=== PATIENT | male | born 1995 | race Caucasian/White ===

== ENCOUNTER 2020-09-08 13:40 | Inpatient (IN) | payer OTHER, MEDICAID, SELFPAY ==
--- NOTE | 2020-09-08 13:50 | PC.NURSE ---
pt arrived to unit w/ ems, alert, cooperative w/ changeover at this time.
[2020-09-08 14:05] VITALS: BP 133/87; PULSE 85; RESP 20; TEMP 36.5; BMI 31.7
--- NOTE | 2020-09-08 14:30 | ED.PSYCH ---
HPI - Psych General Chief Complaint: Psychiatric Symptoms Stated Complaint: CRISIS EVAL,CCOPERATIVE Time Seen by Provider: 09/08/20 13:55 Source: patient and EMS Mode of arrival: wheelchair Limitations: no limitations History of Present Illness HPI Narrative: 25yoM c PMHx of PTSD and schizophrenia presenting to the ED via EMS with reports of substance usage with alcohol prior to arrival. Apparently he endorse SI yesterday at [facility] therefore they wanted him to be further evaluated. At this time patient denies any SI/HI/auditory or visual hallucinations or thoughts of self injury. Admits to drinking ?old beer although is very vague. Denies any drug usage. Denies any other complaints or concerns at this time. Related Data Allergies Allergy/AdvReac Type Severity Reaction Status Date / Time Penicillins [PCN] Allergy Unknown UNKNOWN Unverified 08/02/20 16:43 Review of Systems Review of Systems: Constitutional : No Fever, No Chills ENT/Mouth : No Ear Pain, No Nasal Congestion, No sore throat Eyes: No Eye Pain, No Swelling, No Redness Cardiovascular : No Chest Pain, No SOB Respiratory : No Cough, No Sputum, No Dyspnea Gastrointestinal : No ingestions, No Nausea, No Vomiting, No Diarrhea, No Hematochezia, No Melena Genitourinary : No Dysuria, No Urinary Frequency, No Hematuria Musculoskeletal : No Myalgias Skin : No Skin Lesions, No rash Neuro : No Weakness, No Numbness, No Paresthesias, No Dizziness, No Headache Psych : No Anxiety, No Depression, No SI/HI, No AVH, No thoughts of self injury Heme/Lymph: No Lymphadenopathy Endocrine : No Polyuria, No Polydipsia Yes all other systems are reviewed and are negative [facility] Past Medical History Attestation statement: The following information was validated with the patient. Medical History PTSD (post-traumatic stress disorder) Schizophrenia Social History Social History Alcohol intake: current Smoking Status: Current every day smoker Use of substances other than those prescribed or required for medical reasons: No Substance Use Frequency: Chronic Longstanding Last Used Substance: Just Prior to Admission Any prior treatment program specific to substance use: Yes Advance Directives: No Advance Directives Information Provided: No Physical Exam Vital Signs: Vital Signs: Vital Signs Temp Pulse Resp BP Pulse Ox 09/08/20 16:06 59 20 100/70 100 09/08/20 14:05 97.7 F 85 20 133/87 Body Mass Index 31.7 vital signs have been reviewed as normal and appeared to be correct. Blood pressure normal. Heart rate normal. Respiration rate normal. Temperature normal. Oxygen saturation normal. Appearance: Alert. Oriented X3. No acute distress. Head: Normal external exam. Normocephalic. Atraumatic. No Herrera signs noted. No raccoon eyes noted Eyes: PERRLA. EOMI. Conjunctiva and sclera normal. Eyelids normal. ENT: EAC normal. TM's Normal. Pharynx normal. Uvula midline. Moist mucous membranes. No trismus noted. No drooling noted. No muffled voice noted. Neck: Normal inspection. Neck supple. FROM. No adenopathy. Thyroid Normal. No meningeal signs. No neck mass noted. CVS: Normal heart rate and rhythm. Heart sound normal. No murmurs noted. Pulses normal throughout. Respiratory: No respiratory distress. Painless inspiration. Breath sounds normal. No wheezes/rales/rhonchi noted. Chest nontender. No accessory muscle usage noted or decreased air movement noted. Abdomen: Soft and nontender. Bowel sounds normal in all 4 quadrants. No distention noted. No organomegaly noted. No visible injury noted. Back: No CVA tenderness. Full range of motion noted. Skin: Skin warm and dry. Normal skin color. Normal skin turgor. No rashes/lesions/lacerations noted. Extremities: No lower extremity edema. Extremities exhibit normal range of motion. Extremities nontender. Neuro: Oriented X 3. No motor deficit. No sensory deficit. Reflexes normal. Course Course Course Narrative: 14:20PM 25yoM c PMHx of PTSD and schizophrenia presenting to the ED via EMS with reports of substance usage with alcohol prior to arrival. Apparently he endorse SI yesterday at [facility] therefore they wanted him to be further evaluated. At this time patient denies any SI/HI/auditory or visual hallucinations or thoughts of self injury. Admits to drinking ?old beer although is very vague. Denies any drug usage. Denies any other complaints or concerns at this time. - Plan: Labs inclduing etoh level and drugs of abuse screen. Obtain BHN evaluation then re-evaluate. Reevaluation(s) Reevaluation #1: ETOH level 84. All other labs WNL. Pt medically cleared awaiting BHN evaluation. Time: 16:11 MDM - Psych Restraints Face to Face Assessment: Face to Face Assessment: Current Situation: After assessment of the patient, a review of the pertinent medical record and a discussion with nursing staff, I feel the patient requires a restrain intervention. Reaction To: [] Medical Condition: [] Behavioral State: [] Continued Need: [] Lab Data Result diagrams: 09/08/20 15:09 09/08/20 15:09 Labs: Lab Results 09/08/20 09/08/20 09/08/20 Range/Units 14:24 15:09 15:09 WBC 12.9 H (4.8-10.8) X10*3/uL RBC 4.65 (4.60-5.80) X10*6/uL Hgb 13.9 L (14.0-18.0) g/dl Hct 41.5 L (42-52) % MCV 89.2 (80-98) fL MCH 29.9 (27.0-33.0) pg MCHC 33.5 (31.0-36.0) g/dl RDW 11.8 (11.0-16.0) % Plt Count 208 (160-400) X10*3/uL MPV 9.9 (9.4-12.4) fL Immature Gran % (Auto) 0.5 H (0.0-0.4) % Neut % (Auto) 82.3 H (45-73) % Lymph % (Auto) 9.9 L (20-40) % [place] % (Auto) 6.4 (2-11) % Eos % (Auto) 0.5 (0-4) % Baso % (Auto) 0.4 (0-2) % Lymph # (Auto) 1.3 (1.2-4.9) X10*3/uL [place] # (Auto) 0.8 (0.1-1.2) X10*3/uL Eos # (Auto) 0.1 (0.0-0.4) X10*3/uL Baso # (Auto) 0.1 (0.0-0.2) X10*3/uL Abs Immat Gran (auto) 0.06 H (0.00-0.03) X10*3/uL Absolute Neuts (auto) 10.6 H (2.0-8.3) X10*3/uL Absolute Nucleated RBC 0.000 (0.0-0.012) X10*3/uL Nucleated RBC % (auto) 0.0 (0.0-0.2) /100WBC Sodium 142 (135-145) mmol/L Potassium 3.6 (3.3-5.1) mmol/l Chloride 106 (96-108) mmol/L Carbon Dioxide 23 (22-29) mmol/L Anion Gap 17 (12-20) BUN 13 (9-16) mg/dL Creatinine 0.81 (0.5-1.4) mg/dL Estim Creat Clear Calc 138.5 Estimated GFR > 60 Random Glucose 81 (60-115) mg/dL Calcium 8.8 (8.4-10.2) mg/dL Magnesium (1.6-2.6) mg/dL Total Bilirubin 0.6 (0.0-1.0) mg/dL Direct Bilirubin (0.0-0.5) mg/dL AST 19 (5-37) U/L ALT 11 (0-40) U/L Alkaline Phosphatase 90 (39-117) U/L Total Protein 6.6 (6.5-8.0) g/dL Albumin 4.8 (3.5-5.0) g/dL Salicylates < 5.0 L (15-30) mg/dL Urine Opiates Screen Not Detected (Not Detect) Acetaminophen < 1 (<30) mcg/mL Ur Barbiturates Screen Not Detected (Not Detect) Ur Phencyclidine Scrn Not Detected (Not Detect) Ur Amphetamines Screen Not Detected (Not Detect) U Benzodiazepines Scrn Not Detected (Not Detect) Urine Cocaine Screen Not Detected (Not Detect) U Marijuana (THC) Screen Not Detected (Not Detect) Ethyl Alcohol mg/dL 09/08/20 09/08/20 Range/Units 15:09 15:09 WBC (4.8-10.8) X10*3/uL RBC (4.60-5.80) X10*6/uL Hgb (14.0-18.0) g/dl Hct (42-52) % MCV (80-98) fL MCH (27.0-33.0) pg MCHC (31.0-36.0) g/dl RDW (11.0-16.0) % Plt Count (160-400) X10*3/uL MPV (9.4-12.4) fL Immature Gran % (Auto) (0.0-0.4) % Neut % (Auto) (45-73) % Lymph % (Auto) (20-40) % [place] % (Auto) (2-11) % Eos % (Auto) (0-4) % Baso % (Auto) (0-2) % Lymph # (Auto) (1.2-4.9) X10*3/uL [place] # (Auto) (0.1-1.2) X10*3/uL Eos # (Auto) (0.0-0.4) X10*3/uL Baso # (Auto) (0.0-0.2) X10*3/uL Abs Immat Gran (auto) (0.00-0.03) X10*3/uL Absolute Neuts (auto) (2.0-8.3) X10*3/uL Absolute Nucleated RBC (0.0-0.012) X10*3/uL Nucleated RBC % (auto) (0.0-0.2) /100WBC Sodium (135-145) mmol/L Potassium (3.3-5.1) mmol/l Chloride (96-108) mmol/L Carbon Dioxide (22-29) mmol/L Anion Gap (12-20) BUN (9-16) mg/dL Creatinine (0.5-1.4) mg/dL Estim Creat Clear Calc Estimated GFR Random Glucose (60-115) mg/dL Calcium (8.4-10.2) mg/dL Magnesium 2.1 (1.6-2.6) mg/dL Total Bilirubin 0.6 (0.0-1.0) mg/dL Direct Bilirubin 0.3 (0.0-0.5) mg/dL AST 19 (5-37) U/L ALT 10 (0-40) U/L Alkaline Phosphatase 89 (39-117) U/L Total Protein 6.6 (6.5-8.0) g/dL Albumin 4.8 (3.5-5.0) g/dL Salicylates (15-30) mg/dL Urine Opiates Screen (Not Detect) Acetaminophen (<30) mcg/mL Ur Barbiturates Screen (Not Detect) Ur Phencyclidine Scrn (Not Detect) Ur Amphetamines Screen (Not Detect) U Benzodiazepines Scrn (Not Detect) Urine Cocaine Screen (Not Detect) U Marijuana (THC) Screen (Not Detect) Ethyl Alcohol 84 mg/dL
[2020-09-08 14:58] LABS: Amphetamine Screen Urine Not Detected (Not Detect); Barbiturates, Urine Not Detected (Not Detect); Benzodiazepines Screen Urine Not Detected (Not Detect); Cannabinoid Screen Urine Not Detected (Not Detect); Cocaine Screen Urine Not Detected (Not Detect); Opiate Screen Urine Not Detected (Not Detect); Phencyclidine Screen Urine Not Detected (Not Detect)
[2020-09-08 15:20] LABS: MANUAL DIFF FLAG NO
[2020-09-08 15:21] LABS: Basophils Absolute Auto 0.1 X10*3/uL (0.0-0.2); Basophils Percent Auto 0.4 % (0-2); Eosinophils Absolute Auto 0.1 X10*3/uL (0.0-0.4); Eosinophils Percent Auto 0.5 % (0-4); Hematocrit 41.5 % (42-52); Hemoglobin 13.9 g/dl (14.0-18.0); Imm Gran Abs Auto 0.06 X10*3/uL (0.00-0.03); Imm Gran Pct Auto 0.5 % (0.0-0.4); Lymphocytes Absolute Auto 1.3 X10*3/uL (1.2-4.9); Lymphocytes Percent Auto 9.9 % (20-40); Mean Corpuscular HGB Conc 33.5 g/dl (31.0-36.0); Mean Corpuscular Hemoglobin 29.9 pg (27.0-33.0); Mean Corpuscular Volume 89.2 fL (80-98); Mean Platelet Volume 9.9 fL (9.4-12.4); Monocytes Absolute Auto 0.8 X10*3/uL (0.1-1.2); Monocytes Percent Auto 6.4 % (2-11); Neutrophils Absolute Auto 10.6 X10*3/uL (2.0-8.3); Neutrophils Percent Auto 82.3 % (45-73); Platelet Count 208 X10*3/uL (160-400); Red Blood Count 4.65 X10*6/uL (4.60-5.80); Red Cell Distribution Width 11.8 % (11.0-16.0); White Blood Count 12.9 X10*3/uL (4.8-10.8)
[2020-09-08 15:40] LABS: Ethanol 84 mg/dL
[2020-09-08 15:42] LABS: Alanine Aminotransferase 10 U/L (0-40); Albumin Level 4.8 g/dL (3.5-5.0); Alkaline Phosphatase 89 U/L (39-117); Aspartate Amino Transferase 19 U/L (5-37); Bilirubin Direct 0.3 mg/dL (0.0-0.5); Bilirubin Total 0.6 mg/dL (0.0-1.0); Magnesium 2.1 mg/dL (1.6-2.6); Total Protein 6.6 g/dL (6.5-8.0)
[2020-09-08 15:43] LABS: Acetaminophen LAB < 1 mcg/mL (<30); Alanine Aminotransferase 11 U/L (0-40); Albumin Level 4.8 g/dL (3.5-5.0); Alkaline Phosphatase 90 U/L (39-117); Anion Gap 17 (12-20); Aspartate Amino Transferase 19 U/L (5-37); Bilirubin Total 0.6 mg/dL (0.0-1.0); Blood Urea Nitrogen 13 mg/dL (9-16); Calcium 8.8 mg/dL (8.4-10.2); Carbon Dioxide 23 mmol/L (22-29); Chloride 106 mmol/L (96-108); Creatinine Clr Calc Pharmacy 138.5; Estimated Glomerular Filt Rate > 60; Glucose Random 81 mg/dL (60-115); Potassium 3.6 mmol/l (3.3-5.1); Salicylate < 5.0 mg/dL (15-30); Sodium 142 mmol/L (135-145); Total Protein 6.6 g/dL (6.5-8.0)
--- NOTE | 2020-09-08 16:04 | PC.NURSE ---
Pt awake, gait steady. [facility] delivery room supervisor Asia Kate [phone] called and stated that pt has not been taking medications for several months. No report of SI, but states that clinicians have been concerned about pt as he has become increasingly non verbal.
[2020-09-08 16:06] VITALS: BP 100/70; PULSE 59; RESP 20; O2SAT 100
--- NOTE | 2020-09-08 16:14 | PC.NURSE ---
Pt awake, affect flat. Reviewed crisis process w/ [facility], no concerns reported.
--- NOTE | 2020-09-08 16:51 | PC.NURSE ---
alemn called and faxed
--- NOTE | 2020-09-08 18:13 | PC.NURSE ---
No signs or symptoms of withdrawal noted or repoirted.
--- NOTE | 2020-09-08 18:17 | PC.NURSE ---
Pt eating dinner, alert, oriented x3. Responses at this time clear, no delay.
--- NOTE | 2020-09-08 19:17 | PC.NURSE ---
Provider just called, notified that patient will be reevaluated by BHN in the morning. Patient in bed appears resting, no distress reported by the patient, will continue to monitor.
--- NOTE | 2020-09-08 21:09 | PC.NURSE ---
Provider asked this communications writer be a witness related to patient's head & chest CT scan which patient has been refusing since he came in. Provider spoke with patient, explained importance of the CT to ruled out any organic, patient was dismissive of provider's educational effort and refused to agree with CT scan order. Patient in bed, awake, resting quietly, no distress reported by the patient, patient appears depressed. Provider communicated with [facility] clinician decided to cancel CT scan order. Will continue to monitor.
--- NOTE | 2020-09-09 02:45 | PC.NURSE ---
Patient for bathroom use, when staff approach to offer urine cup for CH, patient reacted inappropriately by aggressively grabbing urine cup from the staff. Security call for support. Patient provided urine sample, patient seems angry, upset, affect flat, mood depressed. Patient asked for milk and snacks, poor eye contact, with very few words. Will continue to monitor.
[2020-09-09 03:35] LABS: Glucose Urine UA NEG (NEG); Leukocyte Esterase Urine NEG (NEG); Nitrite Urine NEG (NEG); PH 6.5 (5.0-8.0); Specific Gravity - Urine 1.025 (1.005-1.025); Urine Blood NEG (NEG); Urine Ketones NEG (NEG); Urine Protein NEG (NEG-TRACE)
[2020-09-09 03:41] LABS: Appearance Urine CLEAR; Color Urine YELLOW
--- NOTE | 2020-09-09 07:22 | PC.NURSE ---
Report received from GENI Vargas. Pt resting, resp unlabored.
[2020-09-09 08:22] VITALS: BP 126/69; PULSE 55; RESP 17; TEMP 36.8; O2SAT 96
--- NOTE | 2020-09-09 10:58 | PC.NURSE ---
pt declining covid testing, also stating he does not want to return to residential. [facility] clinician, Nupur, notified. Clinician in to speak w/ pt.
[2020-09-09 17:07] VITALS: BP 133/73; PULSE 56; RESP 18; TEMP 36.3; O2SAT 96
[2020-09-10 06:35] VITALS: BP 117/68; PULSE 60; RESP 16; TEMP 36.3; O2SAT 98
--- NOTE | 2020-09-10 07:17 | PC.NURSE ---
PT SLEEPING IN ROOM AT THIS TIME. RESPIRATIONS EVEN/UNLABORED BILATERALLY. NO SIGN OF DISTRESS NOTED. WILL CONTINUE TO MONITOR.
[2020-09-10 09:13] VITALS: BP 123/58; PULSE 50; TEMP 37.1; O2SAT 98
--- NOTE | 2020-09-10 12:48 | MHC.CARE ---
Addendum entered by Diaz Wiggins [facility] 09/10/20 12:50: This note was originally entered by Diaz Wiggins. Original Note: [facility] Clinical Director contact info: Isai Guthrieroger can be reached at [phone] for additional information related to this patient.
--- NOTE | 2020-09-10 15:24 | PC.NURSE ---
Report received. Pt currently standing in doorway to room, watching TV. Flat affect. No complaints at this time. Continues to be a section 12 bed search.
[2020-09-10 15:54] VITALS: BP 126/81; PULSE 56; RESP 18; TEMP 36.9; O2SAT 98
--- NOTE | 2020-09-10 20:19 | PC.NURSE ---
Pt is ambulatory in department. Skin pwd. no tremors, no slurred speech. Denies SI at this time. Is aware of status as inpatient bedsearch
--- NOTE | 2020-09-10 20:58 | PC.NURSE ---
alemn stating that patient was seen in the ed today and remains a inpatient bedsearch.
[2020-09-10 22:06] VITALS: BP 136/50; PULSE 53; RESP 18; TEMP 36.6; O2SAT 97
[2020-09-11 00:33] VITALS: BP 122/59; PULSE 47; RESP 16; TEMP 37.2; O2SAT 97
--- NOTE | 2020-09-11 07:03 | PC.NURSE ---
Report recieved. Pt currently sleeping, respirations even and unlabored, in no apparent distress. PT is inpatient bedsearch.
[2020-09-11 15:54] LABS: SARS COV2 PCR INHOUSE NEGATIVE (Negative)
[2020-09-11 16:32] VITALS: BP 131/82; PULSE 60; RESP 20; TEMP 36.9; O2SAT 96
[2020-09-11 18:00] VITALS: BP 160/77; PULSE 52; TEMP 36.8
--- NOTE | 2020-09-11 20:39 | PC.ADMIT ---
pt is a 25 year old single male Kyrgyz speaking who presents [place] from [facility] at approximately 1830 on a cv status. pt is covid - utox-. Pt el[facility] from his [facility] then returned incoherent and suspected to be impaired. pt admitted to using ETOH and refusing medications at prison. pt is diagnosed with unspec Schizophrenia spectrum and other psychotic disorder. pt denied SI, AH/vH and denied having any pain. Dr Agnes Wright called for orders and notified of admission. Pt is on 15 min safety checks. pt was calm and pleasant during admit. Start treatment plan and monitor for safety
[2020-09-11] MEDS: OLANZapine 5 MG TABLET PO (21:02)
[2020-09-12 07:05] VITALS: BP 127/58; PULSE 45; RESP 16; TEMP 36.5; O2SAT 96
[2020-09-12] MEDS: Acetaminophen 325 MG TABLET 650 MG PO (13:21)
[2020-09-12] MEDS: OLANZapine 5 MG TABLET 15 MG PO (20:15)
--- NOTE | 2020-09-12 22:37 | P.HPPS_ITS ---
HPI Chief Complaint: CRISIS EVAL,CCOPERATIVE Sources of Information: patient interviewed, chart reviewed and crisis/core team assessment reviewed HPI Narrative: 25 year old man who was admitted after referral by N. He presented to the ER with agitation, psychosis and intoxication. He carries the diagnosis of SZ, but has been inconsistent with medications since his [facility]ane's order lapsed. His psychiatrist has been lowering his medication and subsequently he stopped them. He has also been using drugs. Staff at his residence, [facility] did not feel that they could manage him, hence his admission. On arrival to the unit, the individual was somewhat disorganized. He did not think that he needs to be on medications at all, but agreed to take them. He was entirely uncooperaive but in behavioral control. Past Psychiatric History: Multiple hospital stays He had a Blane's order but it has lapsed. Medical Evaluation Reviewed: Yes Cleared for admission. No acute medical issues COUNT INCLUDES THE [facility] Medical History PTSD (post-traumatic stress disorder) Schizophrenia Family History: Unknown Social History: Lives at [facility] On disability Legal issues in the past Substance History: Opioid use, other substances Refused MAT Trauma History: Significant trauma but details not available. Diagnostics Vital Signs (24Hr): Vital Signs - 24 hr 09/12/20 07:05 Temperature 97.7 F Pulse Rate 45 L Respiratory Rate 16 Blood Pressure 127/58 L Pulse Oximetry 96 Body Mass Index 31.7 Labs Results: 09/08/20 15:09 09/08/20 15:09 Labs: Laboratory Results - last 48 hr 09/11/20 14:14 Coronavirus (PCR) NEGATIVE Meds/Allergies Meds Home Medications Medication Instructions Recorded Confirmed Type No Known Home Meds 09/12/20 09/12/20 History Allergies Allergies Allergy/AdvReac Type Severity Reaction Status Date / Time Penicillins [PCN] Allergy Unknown UNKNOWN Unverified 08/02/20 16:43 Mental Status Exam Mental Status Exam Patient Orientation: Person and Place Level of Consciousness: Awake and Inappropriate Patient Behavior: Suspicious, Avoidant and Distractible Mood Description: Blunted and Apprehensive Affect Description: Apprehensive Ability to Follow Directions: Poor Speech Pattern: Spontaneous Speech Memory Description: Intact Hallucinations: None Delusions: Paranoid Ideation and Present Thought Process: Disoriented, Distracted, Rumination and Evasive Thought Content: positive for Circumstantial, positive for Slowed Thinking, positive for Disorganized, negative for Suicidal Ideation and negative for Homicidal Ideation Assessment & Plan Assessment & Plan (1) Schizophrenia: Status: Acute Qualifiers: Schizophrenia type: paranoid schizophrenia Qualified Code(s): F20.0 - Paranoid schizophrenia Code(s): F20.9 - Schizophrenia, unspecified (2) PTSD (post-traumatic stress disorder): Status: Acute Code(s): F43.10 - Post-traumatic stress disorder, unspecified Assessment and Plan: Restart zyprexa Collateral history Patient educated on: diagnosis and medication risk/benefits Informed Consent: does not understand Reason for continued inpatient stay Substantial Risk for: harm to self, harm to others, inability to function and rapid decompensation
[2020-09-13 06:00] VITALS: RESP 16
[2020-09-13 07:00] VITALS: BMI 30.2
[2020-09-13 08:19] LABS: Fentanyl, Ur Negative
[2020-09-13 08:23] LABS: Norfentanyl, Ur Negative
[2020-09-13 10:56] VITALS: RESP 14
[2020-09-13] MEDS: Acetaminophen 325 MG TABLET 650 MG PO ×2 (13:36→21:57)
--- NOTE | 2020-09-13 19:12 | HO.PSYCHPN ---
Subjective Subjective Date of Service: 09/13/20 Reason For Visit: CRISIS EVAL,CCOPERATIVE Subjective Notes: Conditional Voluntary Interim History: Freedom remains extremely disorganized. He is spending most of his time wandering the halls. He is nto able to engage in a logical conversation. He is taking zyprexa. Email sent to his prescriber, Dr. Ash Medication Compliance: Yes Side effects from medications: No Attending Groups: No Review of Systems Acute medical concerns: No Medical Review of Systems: unchanged Mental Status Exam Mental Status Exam Patient Orientation: Person and Place Level of Consciousness: Awake and Inappropriate Patient Behavior: Suspicious, Avoidant and Distractible Mood Description: Blunted and Apprehensive Affect Description: Apprehensive Ability to Follow Directions: Poor Speech Pattern: Spontaneous Speech Memory Description: Intact Hallucinations: None Delusions: Paranoid Ideation and Present Thought Process: Disoriented, Distracted, Rumination and Evasive Thought Content: positive for Circumstantial, positive for Poverty of Content, positive for Slowed Thinking, positive for Disorganized, negative for Suicidal Ideation and negative for Homicidal Ideation Abnormal Motor Activity Signs and Symptoms: Restlessness Judgement: Poor Diagnostics Vital Signs (24Hr): Vital Signs - 24 hr 09/13/20 06:00 09/13/20 10:56 Respiratory Rate 16 14 Body Mass Index 30.2 Labs Results: 09/08/20 15:09 09/08/20 15:09 Labs: Laboratory Results - last 48 hr 09/08/20 14:24 Urine Fentanyl Negative Ur Norfentanyl Quant Negative Medications Medications Current Medications Generic Name Dose Route Start Last Admin Trade Name Freq PRN Reason Stop Dose Admin Acetaminophen 650 mg 09/11/20 20:11 09/13/20 13:36 Acetaminophen 325 Mg Tablet PO 650 mg Q6H PRN Administration Headache/Pain Mild Scale (1-3) Al Hydroxide/Mg Hydroxide 30 ml 09/11/20 20:11 Magnesium Hydrox/Alum Hydrox 30 Ml Oral.Susp PO Q6H PRN Heartburn/Nausea Hydroxyzine HCl 25 mg 09/11/20 20:11 Hydroxyzine Hcl 25 Mg Tablet PO BEDTIME PRN Anxiety Lorazepam 1 mg 09/11/20 20:11 Lorazepam 1 Mg Tablet PO Q4H PRN Alcohol Withdrawal Magnesium Hydroxide 30 ml 09/11/20 20:11 Milk Of Magnesia 30 Ml Oral.Susp PO DAILY PRN Constipation Nicotine Polacrilex 2 mg 09/11/20 20:11 Nicotine Polacrilex 2 Mg Gum BUCCAL Q2H PRN Nicotine Cravings Olanzapine 15 mg 09/12/20 21:00 09/12/20 20:15 Olanzapine 5 Mg Tablet PO 15 mg BEDTIME HERON Administration Olanzapine 5 mg 09/12/20 12:37 Olanzapine 5 Mg Tablet PO Q4H PRN Anxiety Allergies Allergies Allergy/AdvReac Type Severity Reaction Status Date / Time Penicillins [PCN] Allergy Unknown UNKNOWN Unverified 08/02/20 16:43 Assessment & Plan Assessment & Plan (1) Schizophrenia: Qualifiers: Schizophrenia type: paranoid schizophrenia Qualified Code(s): F20.0 - Paranoid schizophrenia Status: Acute Code(s): F20.9 - Schizophrenia, unspecified Assessment and Plan: CT zyprexa. Obtain psychopharm history Greater than 50% of the session was spent on counseling and/or coordination of care Patient educated on: diagnosis, medication risk/benefits and substance abuse Informed Consent: does not understand Reason for contiued inpatient stay Substantial Risk for: inability to function and rapid decompensation
[2020-09-13] MEDS: OLANZapine 5 MG TABLET 15 MG PO (20:17)
[2020-09-14 06:30] VITALS: BP 125/63; PULSE 51; RESP 14; TEMP 35.9; O2SAT 98
[2020-09-14] MEDS: Acetaminophen 325 MG TABLET 650 MG PO (11:22)
--- NOTE | 2020-09-14 18:28 | HO.PSYCHPN ---
Subjective Subjective Date of Service: 09/14/20 Reason For Visit: CRISIS EVAL,CCOPERATIVE Subjective Notes: Conditional Voluntary Interim History: Freedom remains extremely disorganized. He is spending most of his time wandering the halls. He is not able to engage in a logical conversation. He is taking zyprexa. He is refusing depakote Email sent to his prescriber, Dr. Ash No response as yet Medication Compliance: Yes Side effects from medications: No Attending Groups: No Review of Systems Acute medical concerns: No Medical Review of Systems: unchanged Mental Status Exam Mental Status Exam Patient Orientation: Person and Place Level of Consciousness: Awake and Inappropriate Patient Behavior: Suspicious, Avoidant and Distractible Mood Description: Blunted and Apprehensive Affect Description: Apprehensive Ability to Follow Directions: Poor Speech Pattern: Spontaneous Speech Memory Description: Intact Hallucinations: None Delusions: Paranoid Ideation and Present Thought Process: Disoriented, Distracted, Rumination and Evasive Thought Content: positive for Circumstantial, positive for Perseveration, positive for Poverty of Content, positive for Slowed Thinking, positive for Disorganized, negative for Suicidal Ideation and negative for Homicidal Ideation Abnormal Motor Activity Signs and Symptoms: Restlessness Judgement: Poor Diagnostics Vital Signs (24Hr): Vital Signs - 24 hr 09/14/20 06:30 Temperature 96.7 F L Pulse Rate 51 Respiratory Rate 14 Blood Pressure 125/63 Pulse Oximetry 98 Body Mass Index 30.2 Labs Results: 09/08/20 15:09 09/08/20 15:09 Labs: Laboratory Results - last 48 hr 09/08/20 14:24 Urine Fentanyl Negative Ur Norfentanyl Quant Negative Medications Medications Current Medications Generic Name Dose Route Start Last Admin Trade Name Gilbertq PRN Reason Stop Dose Admin Acetaminophen 650 mg 09/11/20 20:11 09/14/20 11:22 Acetaminophen 325 Mg Tablet PO 650 mg Q6H PRN Administration Headache/Pain Mild Scale (1-3) Al Hydroxide/Mg Hydroxide 30 ml 09/11/20 20:11 Magnesium Hydrox/Alum Hydrox 30 Ml Oral.Susp PO Q6H PRN Heartburn/Nausea Divalproex Sodium 500 mg 09/14/20 09:30 09/14/20 10:08 Divalproex Sodium Er 500 Mg Tab.Er.24h PO Not Given BID HERON Hydroxyzine HCl 25 mg 09/11/20 20:11 Hydroxyzine Hcl 25 Mg Tablet PO BEDTIME PRN Anxiety Lorazepam 1 mg 09/11/20 20:11 Lorazepam 1 Mg Tablet PO Q4H PRN Alcohol Withdrawal Magnesium Hydroxide 30 ml 09/11/20 20:11 Milk Of Magnesia 30 Ml Oral.Susp PO DAILY PRN Constipation Nicotine Polacrilex 2 mg 09/11/20 20:11 Nicotine Polacrilex 2 Mg Gum BUCCAL Q2H PRN Nicotine Cravings Olanzapine 15 mg 09/12/20 21:00 09/13/20 20:17 Olanzapine 5 Mg Tablet PO 15 mg BEDTIME HERON Administration Olanzapine 5 mg 09/12/20 12:37 Olanzapine 5 Mg Tablet PO Q4H PRN Anxiety Allergies Allergies Allergy/AdvReac Type Severity Reaction Status Date / Time Penicillins [PCN] Allergy Unknown UNKNOWN Unverified 08/02/20 16:43 Assessment & Plan Greater than 50% of the session was spent on counseling and/or coordination of care Patient educated on: diagnosis and medication risk/benefits Informed Consent: further education needed Reason for contiued inpatient stay Substantial Risk for: inability to function and rapid decompensation
[2020-09-14] MEDS: OLANZapine 5 MG TABLET 15 MG PO (21:35)
--- NOTE | 2020-09-15 10:56 | HO.PSYCHPN ---
Subjective Subjective Date of Service: 09/15/20 Reason For Visit: acute psychotic decompensation Subjective Notes: Conditional Voluntary Interim History: Patient eating lunch, not looking at provider, refusing to answer questions Medication Compliance: Intermittent (refusing depakote , taking olanzapine) Side effects from medications: No Attending Groups: No Review of Systems Review of Systems Pt refuses to answer questions about s/e of medication Mental Status Exam Mental Status Exam Narrative: casually dressed and kempt, poor eye contact Patient Orientation: Person and Place Level of Consciousness: Awake and Appropriate Patient Behavior: Guarded, Suspicious, Resistive to Care, Uncooperative and Poor Eye Contact Mood Description: Apathetic Affect Description: Suspicious and Hostile Patient Cognition Impaired: No Ability to Follow Directions: Poor Speech Pattern: Poor Articulation Thought Process: Evasive Thought Content: positive for [place] Judgement: Poor Diagnostics Vital Signs (24Hr): Body Mass Index 30.2 Labs Results: 09/08/20 15:09 09/08/20 15:09 Medications Medications Current Medications Generic Name Dose Route Start Last Admin Trade Name Freq PRN Reason Stop Dose Admin Acetaminophen 650 mg 09/11/20 20:11 09/14/20 11:22 Acetaminophen 325 Mg Tablet PO 650 mg Q6H PRN Administration Headache/Pain Mild Scale (1-3) Al Hydroxide/Mg Hydroxide 30 ml 09/11/20 20:11 Magnesium Hydrox/Alum Hydrox 30 Ml Oral.Susp PO Q6H PRN Heartburn/Nausea Divalproex Sodium 500 mg 09/14/20 09:30 09/15/20 09:12 Divalproex Sodium Er 500 Mg Tab.Er.24h PO Not Given BID HERNO Hydroxyzine HCl 25 mg 09/11/20 20:11 Hydroxyzine Hcl 25 Mg Tablet PO BEDTIME PRN Anxiety Lorazepam 1 mg 09/11/20 20:11 Lorazepam 1 Mg Tablet PO Q4H PRN Alcohol Withdrawal Magnesium Hydroxide 30 ml 09/11/20 20:11 Milk Of Magnesia 30 Ml Oral.Susp PO DAILY PRN Constipation Nicotine Polacrilex 2 mg 09/11/20 20:11 Nicotine Polacrilex 2 Mg Gum BUCCAL Q2H PRN Nicotine Cravings Olanzapine 15 mg 09/12/20 21:00 09/14/20 21:35 Olanzapine 5 Mg Tablet PO 15 mg BEDTIME HERON Administration Olanzapine 5 mg 09/12/20 12:37 Olanzapine 5 Mg Tablet PO Q4H PRN Anxiety Allergies Allergies Allergy/AdvReac Type Severity Reaction Status Date / Time Penicillins [PCN] Allergy Unknown UNKNOWN Unverified 08/02/20 16:43 Assessment & Plan Assessment & Plan (1) Schizophrenia: Qualifiers: Schizophrenia type: paranoid schizophrenia Qualified Code(s): F20.0 - Paranoid schizophrenia Status: Acute Code(s): F20.9 - Schizophrenia, unspecified Assessment and Plan: continue olanzapine, (2) PTSD (post-traumatic stress disorder): Status: Acute Code(s): F43.10 - Post-traumatic stress disorder, unspecified Assessment and Plan: may explain his guarded position - to new provider Greater than 50% of the session was spent on counseling and/or coordination of care
[2020-09-15] MEDS: Acetaminophen 325 MG TABLET 650 MG PO (11:30)
[2020-09-15 18:00] VITALS: RESP 18
[2020-09-15] MEDS: OLANZapine 5 MG TABLET 15 MG PO (21:18)
[2020-09-16 06:00] VITALS: RESP 14
--- NOTE | 2020-09-16 13:28 | PC.NURSE ---
PT SIGNED 3 DAY. UP 09/19
--- NOTE | 2020-09-16 15:04 | HO.PSYCHPN ---
Subjective Subjective Date of Service: 09/16/20 Reason For Visit: acute psychotic decompensation Subjective Notes: Conditional Voluntary and 3 Day Interim History: signed a 3 day at lunch today met with me today and argued about medication and the need he wants to be on something only as needed discussed with him inc olanzapine he was not in agreement- Medication Compliance: No Side effects from medications: No Attending Groups: No Review of Systems Acute medical concerns: No Medical Review of Systems: unchanged Review of Systems Review of Systems Yes all other systems are reviewed and are negative Mental Status Exam Mental Status Exam Narrative: ongoing guarded irritable Patient Appearance: Appropriate Patient Orientation: Person, Place and Situation Level of Consciousness: Awake and Appropriate Patient Behavior: Resistive to Care and Combative (only verbally) Mood Description: Apathetic and Flat Affect Description: Hostile Patient Cognition Impaired: No Ability to Follow Directions: Poor Speech Pattern: Clear Delusions: Paranoid Ideation (?) Thought Process: Evasive Thought Content: positive for Disorganized Judgement: Poor Diagnostics Vital Signs (24Hr): Vital Signs - 24 hr 09/15/20 18:00 09/16/20 06:00 Respiratory Rate 18 14 Body Mass Index Labs Results: 09/08/20 15:09 09/08/20 15:09 Medications Medications Current Medications Generic Name Dose Route Start Last Admin Trade Name Freq PRN Reason Stop Dose Admin Acetaminophen 650 mg 09/11/20 20:11 09/15/20 11:30 Acetaminophen 325 Mg Tablet PO 650 mg Q6H PRN Administration Headache/Pain Mild Scale (1-3) Al Hydroxide/Mg Hydroxide 30 ml 09/11/20 20:11 Magnesium Hydrox/Alum Hydrox 30 Ml Oral.Susp PO Q6H PRN Heartburn/Nausea Divalproex Sodium 500 mg 09/14/20 09:30 09/16/20 09:12 Divalproex Sodium Er 500 Mg Tab.Er.24h PO Not Given BID HERON Hydroxyzine HCl 25 mg 09/11/20 20:11 Hydroxyzine Hcl 25 Mg Tablet PO BEDTIME PRN Anxiety Lorazepam 1 mg 09/11/20 20:11 Lorazepam 1 Mg Tablet PO Q4H PRN Alcohol Withdrawal Magnesium Hydroxide 30 ml 09/11/20 20:11 Milk Of Magnesia 30 Ml Oral.Susp PO DAILY PRN Constipation Nicotine Polacrilex 2 mg 09/11/20 20:11 Nicotine Polacrilex 2 Mg Gum BUCCAL Q2H PRN Nicotine Cravings Olanzapine 5 mg 09/12/20 12:37 Olanzapine 5 Mg Tablet PO Q4H PRN Anxiety Olanzapine 20 mg 09/16/20 21:00 Olanzapine 5 Mg Tablet PO BEDTIME HERON Allergies Allergies Allergy/AdvReac Type Severity Reaction Status Date / Time Penicillins [PCN] Allergy Unknown UNKNOWN Unverified 08/02/20 16:43 Assessment & Plan Assessment & Plan (1) Schizophrenia: Qualifiers: Schizophrenia type: paranoid schizophrenia Qualified Code(s): F20.0 - Paranoid schizophrenia Status: Acute Code(s): F20.9 - Schizophrenia, unspecified Assessment and Plan: refusing appropriate treatment can't really engage in conversation about medications or treatment (2) PTSD (post-traumatic stress disorder): Status: Acute Code(s): F43.10 - Post-traumatic stress disorder, unspecified Greater than 50% of the session was spent on counseling and/or coordination of care
[2020-09-16] MEDS: OLANZapine 5 MG TABLET PO (16:34)
[2020-09-16] MEDS: OLANZapine 5 MG TABLET 20 MG PO (20:39)
[2020-09-17 06:42] VITALS: RESP 16
--- NOTE | 2020-09-17 09:13 | HO.PSYCHPN ---
Subjective Subjective Date of Service: 09/17/20 Reason For Visit: acute psychotic decompensation Subjective Notes: Guerin Warning, Conditional Voluntary and 3 Day Interim History: Signed a 3 day over the weekend He continues to take only the zyprexa. He states he will not go back to [facility]. He is not able to say why, or what his plan would be if he were to leave on Thursday. He is disorganized and it is hard to follow what he is saying. Medication Compliance: No Side effects from medications: No Attending Groups: No Review of Systems Acute medical concerns: No Medical Review of Systems: unchanged Mental Status Exam Mental Status Exam Narrative: ongoing guarded irritable Patient Appearance: Appropriate Patient Orientation: Person, Place and Situation Level of Consciousness: Awake and Appropriate Patient Behavior: Resistive to Care, Invasion - Personal Space, Distractible, Uncooperative and Poor Eye Contact Mood Description: Apathetic and Flat Affect Description: Hostile Patient Cognition Impaired: No Ability to Follow Directions: Poor Speech Pattern: Clear, Mumbled and Poor Articulation Memory Description: Intact Hallucinations: None Delusions: Paranoid Ideation (?) Thought Process: Evasive Thought Content: positive for Poverty of Content, positive for Disorganized, negative for Suicidal Ideation and negative for Homicidal Ideation Judgement: Poor Diagnostics Vital Signs (24Hr): Vital Signs - 24 hr 09/17/20 06:42 Respiratory Rate 16 Body Mass Index 30.2 Labs Results: 09/08/20 15:09 09/08/20 15:09 Medications Medications Current Medications Generic Name Dose Route Start Last Admin Trade Name Freq PRN Reason Stop Dose Admin Acetaminophen 650 mg 09/11/20 20:11 09/15/20 11:30 Acetaminophen 325 Mg Tablet PO 650 mg Q6H PRN Administration Headache/Pain Mild Scale (1-3) Al Hydroxide/Mg Hydroxide 30 ml 09/11/20 20:11 Magnesium Hydrox/Alum Hydrox 30 Ml Oral.Susp PO Q6H PRN Heartburn/Nausea Divalproex Sodium 500 mg 09/14/20 09:30 09/17/20 09:05 Divalproex Sodium Er 500 Mg Tab.Er.24h PO Not Given BID HERON Hydroxyzine HCl 25 mg 09/11/20 20:11 Hydroxyzine Hcl 25 Mg Tablet PO BEDTIME PRN Anxiety Lorazepam 1 mg 09/11/20 20:11 Lorazepam 1 Mg Tablet PO Q4H PRN Alcohol Withdrawal Magnesium Hydroxide 30 ml 09/11/20 20:11 Milk Of Magnesia 30 Ml Oral.Susp PO DAILY PRN Constipation Nicotine Polacrilex 2 mg 09/11/20 20:11 Nicotine Polacrilex 2 Mg Gum BUCCAL Q2H PRN Nicotine Cravings Olanzapine 5 mg 09/12/20 12:37 09/16/20 16:34 Olanzapine 5 Mg Tablet PO 5 mg Q4H PRN Administration Anxiety Olanzapine 20 mg 09/16/20 21:00 09/16/20 20:39 Olanzapine 5 Mg Tablet PO 20 mg BEDTIME HERON Administration Allergies Allergies Allergy/AdvReac Type Severity Reaction Status Date / Time Penicillins [PCN] Allergy Unknown UNKNOWN Unverified 08/02/20 16:43 Assessment & Plan Assessment & Plan (1) Schizophrenia: Qualifiers: Schizophrenia type: paranoid schizophrenia Qualified Code(s): F20.0 - Paranoid schizophrenia Status: Acute Code(s): F20.9 - Schizophrenia, unspecified Assessment and Plan: CT zyprexa Encourage depakote Assess safety Education Collateral history Greater than 50% of the session was spent on counseling and/or coordination of care Patient educated on: diagnosis, medication risk/benefits and substance abuse Informed Consent: does not understand Reason for contiued inpatient stay Substantial Risk for: inability to function and rapid decompensation
[2020-09-17] MEDS: Nicotine Polacrilex 2 MG GUM BUCCAL (16:19)
[2020-09-17] MEDS: LORazepam 1 MG TABLET PO (16:19)
[2020-09-17] MEDS: Acetaminophen 325 MG TABLET 650 MG PO (16:26)
[2020-09-17 18:55] VITALS: BP 141/73; PULSE 89; TEMP 36.7
[2020-09-17] MEDS: OLANZapine ODT 10 MG TAB.RAPDIS 20 MG TRANSLINGU (22:23)
[2020-09-17] MEDS: Divalproex Sodium ER 500 MG TAB.ER.24H PO (22:24)
[2020-09-18 06:10] VITALS: RESP 18
--- NOTE | 2020-09-18 09:27 | HO.PSYCHPN ---
Subjective Subjective Date of Service: 09/18/20 Reason For Visit: acute psychotic decompensation Subjective Notes: Guerin Warning and 3 Day Interim History: Freedom remains disorganized, vague and delusional. When attempting to talk with him about where he could go if DC he advised that perhaps if the phone calls were bothering me I should block the numbers. He has no ability to plan for his possible safe discharge plan. He did start taking depakote Medication Compliance: Intermittent Side effects from medications: No Attending Groups: Intermittent Review of Systems Acute medical concerns: No Medical Review of Systems: unchanged Mental Status Exam Mental Status Exam Narrative: ongoing guarded irritable Patient Appearance: Appropriate Patient Orientation: Person, Place and Situation Level of Consciousness: Awake and Appropriate Patient Behavior: Resistive to Care, Invasion - Personal Space, Distractible, Uncooperative and Poor Eye Contact Mood Description: Apathetic and Flat Affect Description: Hostile Patient Cognition Impaired: No Ability to Follow Directions: Poor Speech Pattern: Clear, Mumbled and Poor Articulation Memory Description: Intact Hallucinations: None Delusions: Paranoid Ideation (?) Thought Process: Evasive Thought Content: positive for Poverty of Content, positive for Disorganized, negative for Suicidal Ideation and negative for Homicidal Ideation Judgement: Poor Diagnostics Vital Signs (24Hr): Vital Signs - 24 hr 09/17/20 18:55 09/18/20 06:10 Temperature 98.0 F Pulse Rate 89 Respiratory Rate 18 Blood Pressure 141/73 H Body Mass Index 30.2 Labs Results: 09/08/20 15:09 09/08/20 15:09 Medications Medications Current Medications Generic Name Dose Route Start Last Admin Trade Name Freq PRN Reason Stop Dose Admin Acetaminophen 650 mg 09/11/20 20:11 09/17/20 16:26 Acetaminophen 325 Mg Tablet PO 650 mg Q6H PRN Administration Headache/Pain Mild Scale (1-3) Al Hydroxide/Mg Hydroxide 30 ml 09/11/20 20:11 Magnesium Hydrox/Alum Hydrox 30 Ml Oral.Susp PO Q6H PRN Heartburn/Nausea Divalproex Sodium 500 mg 09/14/20 09:30 09/18/20 09:06 Divalproex Sodium Er 500 Mg Tab.Er.24h PO Not Given BID HERON Hydroxyzine HCl 25 mg 09/11/20 20:11 Hydroxyzine Hcl 25 Mg Tablet PO BEDTIME PRN Anxiety Lorazepam 1 mg 09/11/20 20:11 09/17/20 16:19 Lorazepam 1 Mg Tablet PO 1 mg Q4H PRN Administration Alcohol Withdrawal Magnesium Hydroxide 30 ml 09/11/20 20:11 Milk Of Magnesia 30 Ml Oral.Susp PO DAILY PRN Constipation Nicotine Polacrilex 2 mg 09/11/20 20:11 09/17/20 16:19 Nicotine Polacrilex 2 Mg Gum BUCCAL 2 mg Q2H PRN Administration Nicotine Cravings Olanzapine 5 mg 09/12/20 12:37 09/16/20 16:34 Olanzapine 5 Mg Tablet PO 5 mg Q4H PRN Administration Anxiety Olanzapine 20 mg 09/17/20 21:00 09/17/20 22:23 Olanzapine Odt 10 Mg Tab.Rapdis TRANSLINGU 20 mg BEDTIME HERON Administration Allergies Allergies Allergy/AdvReac Type Severity Reaction Status Date / Time Penicillins [PCN] Allergy Unknown UNKNOWN Unverified 08/02/20 16:43 Assessment & Plan Assessment & Plan (1) Schizophrenia: Qualifiers: Schizophrenia type: paranoid schizophrenia Qualified Code(s): F20.0 - Paranoid schizophrenia Status: Acute Code(s): F20.9 - Schizophrenia, unspecified Assessment and Plan: CT current medication Encourage compliance Petition for commitment due to extreme disorganization and delusional thinking which render him unable to make adequate plans for himself Greater than 50% of the session was spent on counseling and/or coordination of care Patient educated on: diagnosis, medication risk/benefits and substance abuse Informed Consent: does not understand Reason for contiued inpatient stay Substantial Risk for: inability to function and rapid decompensation
[2020-09-18] MEDS: OLANZapine 5 MG TABLET PO ×2 (13:11→18:58)
[2020-09-18] MEDS: Nicotine Polacrilex 2 MG GUM BUCCAL (14:28)
[2020-09-18] MEDS: Divalproex Sodium ER 500 MG TAB.ER.24H PO (21:16)
[2020-09-18] MEDS: OLANZapine ODT 10 MG TAB.RAPDIS 20 MG TRANSLINGU (21:16)
[2020-09-18] MEDS: hydrOXYzine HCL 25 MG TABLET PO (22:02)
--- NOTE | 2020-09-19 09:26 | HO.PSYCHPN ---
Subjective Subjective Date of Service: 09/19/20 Reason For Visit: acute psychotic decompensation Subjective Notes: Guerin Warning, Legal Status (S7 filed) and 3 Day Interim History: Freedom remains disorganized, vague and delusional. He was able to have a more reciprocal and engaged conversation and to sit in an office. He stated that he is going to leave the state and that was all he would tell me. He did not have any provisions for senior living, food or other necessities. Considering his ongoing disorganization, s7 filed. He did start taking depakote Medication Compliance: Intermittent Side effects from medications: No Attending Groups: Intermittent Review of Systems Acute medical concerns: No Medical Review of Systems: unchanged Mental Status Exam Mental Status Exam Narrative: ongoing guarded irritable Patient Appearance: Appropriate Patient Orientation: Person, Place and Situation Level of Consciousness: Awake and Appropriate Patient Behavior: Resistive to Care, Invasion - Personal Space, Distractible, Uncooperative and Poor Eye Contact Mood Description: Apathetic and Flat Affect Description: Hostile Patient Cognition Impaired: No Ability to Follow Directions: Poor Speech Pattern: Clear, Mumbled and Poor Articulation Memory Description: Intact Hallucinations: None Delusions: Paranoid Ideation (?) Thought Process: Evasive Thought Content: positive for Poverty of Content, positive for Preoccupation, positive for Loose Associations, positive for Disorganized, negative for Suicidal Ideation and negative for Homicidal Ideation Judgement: Poor Diagnostics Vital Signs (24Hr): Body Mass Index 30.2 Labs Results: 09/08/20 15:09 09/08/20 15:09 Medications Medications Current Medications Generic Name Dose Route Start Last Admin Trade Name Freq PRN Reason Stop Dose Admin Acetaminophen 650 mg 09/11/20 20:11 09/17/20 16:26 Acetaminophen 325 Mg Tablet PO 650 mg Q6H PRN Administration Headache/Pain Mild Scale (1-3) Al Hydroxide/Mg Hydroxide 30 ml 09/11/20 20:11 Magnesium Hydrox/Alum Hydrox 30 Ml Oral.Susp PO Q6H PRN Heartburn/Nausea Divalproex Sodium 500 mg 09/14/20 09:30 09/19/20 08:34 Divalproex Sodium Er 500 Mg Tab.Er.24h PO Not Given BID HERON Hydroxyzine HCl 25 mg 09/11/20 20:11 09/18/20 22:02 Hydroxyzine Hcl 25 Mg Tablet PO 25 mg BEDTIME PRN Administration Anxiety Lorazepam 1 mg 09/11/20 20:11 09/17/20 16:19 Lorazepam 1 Mg Tablet PO 1 mg Q4H PRN Administration Alcohol Withdrawal Magnesium Hydroxide 30 ml 09/11/20 20:11 Milk Of Magnesia 30 Ml Oral.Susp PO DAILY PRN Constipation Nicotine Polacrilex 2 mg 09/11/20 20:11 09/18/20 14:28 Nicotine Polacrilex 2 Mg Gum BUCCAL 2 mg Q2H PRN Administration Nicotine Cravings Olanzapine 5 mg 09/12/20 12:37 09/18/20 18:58 Olanzapine 5 Mg Tablet PO 5 mg Q4H PRN Administration Anxiety Olanzapine 20 mg 09/17/20 21:00 09/18/20 21:16 Olanzapine Odt 10 Mg Tab.Rapdis TRANSLINGU 20 mg BEDTIME HERON Administration Allergies Allergies Allergy/AdvReac Type Severity Reaction Status Date / Time Penicillins [PCN] Allergy Unknown UNKNOWN Unverified 08/02/20 16:43 Assessment & Plan Assessment & Plan (1) Schizophrenia: Qualifiers: Schizophrenia type: paranoid schizophrenia Qualified Code(s): F20.0 - Paranoid schizophrenia Status: Acute Code(s): F20.9 - Schizophrenia, unspecified Assessment and Plan: CT current medication Encourage compliance Petition for commitment due to extreme disorganization and delusional thinking which render him unable to make adequate plans for himself Greater than 50% of the session was spent on counseling and/or coordination of care Patient educated on: diagnosis, medication risk/benefits and substance abuse Informed Consent: does not understand Reason for contiued inpatient stay Substantial Risk for: inability to function and rapid decompensation
[2020-09-19] MEDS: Nicotine Polacrilex 2 MG GUM BUCCAL (10:18)
[2020-09-19 13:06] LABS: Estimated Average Glucose 100 mg/dL; Hemoglobin A1c % 5.1 %
[2020-09-19] MEDS: Acetaminophen 325 MG TABLET 650 MG PO (17:00)
[2020-09-19 17:18] LABS: Cholesterol 144 mg/dL; HDL Cholesterol 36 mg/dL; LDL Cholesterol Calculated 73 mg/dl; Triglycerides 178 mg/dL
[2020-09-19] MEDS: OLANZapine ODT 10 MG TAB.RAPDIS 20 MG TRANSLINGU (21:12)
[2020-09-20 06:25] VITALS: BP 95/52; PULSE 48; RESP 16; TEMP 36.4; O2SAT 97
[2020-09-20 07:00] VITALS: BMI 31.9
--- NOTE | 2020-09-20 09:25 | P.PNPSI_ITS ---
Subjective Subjective Date of Service: 09/20/20 Reason For Visit: acute psychotic decompensation Subjective Notes: Guerin Warning and Legal Status (s.7) Interim History: Lon continues to be distracted and vague. He becomes irritated when efforts are made to speak with him about his treatment. He tends to walk away. He is only intermittently compliant with Depakote, but is taking zyprexa. Medication Compliance: Yes Side effects from medications: No Attending Groups: No Mental Status Exam Mental Status Exam Narrative: ongoing guarded irritable Patient Appearance: Disheveled, Appropriate and Unkempt Patient Orientation: Person, Place and Situation Level of Consciousness: Awake and Appropriate Patient Behavior: Resistive to Care, Invasion - Personal Space, Distractible, Uncooperative and Poor Eye Contact Mood Description: Apathetic and Flat Affect Description: Hostile Patient Cognition Impaired: No Ability to Follow Directions: Poor Speech Pattern: Clear, Mumbled and Poor Articulation Memory Description: Intact Hallucinations: None Delusions: Paranoid Ideation (?) Thought Process: Evasive Thought Content: positive for Poverty of Content, positive for Preoccupation, positive for Loose Associations, positive for Disorganized, negative for Suicidal Ideation and negative for Homicidal Ideation Judgement: Poor Diagnostics Vital Signs (24Hr): Vital Signs - 24 hr 09/20/20 06:25 Temperature 97.6 F Pulse Rate 48 L Respiratory Rate 16 Blood Pressure 95/52 L Pulse Oximetry 97 Body Mass Index 30.2 Labs Results: 09/08/20 15:09 09/08/20 15:09 Labs: Laboratory Results - last 48 hr 09/19/20 09/19/20 09/19/20 12:12 12:12 12:12 Estimat Average Glucose 100 Hemoglobin A1c % 5.1 Triglycerides 178 Cholesterol 144 LDL Cholesterol, Calc 73 HDL Cholesterol 36 Lipoprotein (a) Cancelled Medications Medications Current Medications Generic Name Dose Route Start Last Admin Trade Name Freq PRN Reason Stop Dose Admin Acetaminophen 650 mg 09/11/20 20:11 09/19/20 17:00 Acetaminophen 325 Mg Tablet PO 650 mg Q6H PRN Administration Headache/Pain Mild Scale (1-3) Al Hydroxide/Mg Hydroxide 30 ml 09/11/20 20:11 Magnesium Hydrox/Alum Hydrox 30 Ml Oral.Susp PO Q6H PRN Heartburn/Nausea Divalproex Sodium 1,000 mg 09/19/20 21:00 09/19/20 21:13 Divalproex Sodium Er 500 Mg Tab.Er.24h PO Not Given BEDTIME HERON Hydroxyzine HCl 25 mg 09/11/20 20:11 09/18/20 22:02 Hydroxyzine Hcl 25 Mg Tablet PO 25 mg BEDTIME PRN Administration Anxiety Lorazepam 1 mg 09/11/20 20:11 09/17/20 16:19 Lorazepam 1 Mg Tablet PO 1 mg Q4H PRN Administration Alcohol Withdrawal Magnesium Hydroxide 30 ml 09/11/20 20:11 Milk Of Magnesia 30 Ml Oral.Susp PO DAILY PRN Constipation Nicotine Polacrilex 2 mg 09/11/20 20:11 09/19/20 10:18 Nicotine Polacrilex 2 Mg Gum BUCCAL 2 mg Q2H PRN Administration Nicotine Cravings Olanzapine 5 mg 09/12/20 12:37 09/18/20 18:58 Olanzapine 5 Mg Tablet PO 5 mg Q4H PRN Administration Anxiety Olanzapine 20 mg 09/17/20 21:00 09/19/20 21:12 Olanzapine Odt 10 Mg Tab.Rapdis TRANSLINGU 20 mg BEDTIME HERON Administration Allergies Allergies Allergy/AdvReac Type Severity Reaction Status Date / Time Penicillins [PCN] Allergy Unknown UNKNOWN Unverified 08/02/20 16:43 Assessment & Plan Assessment & Plan (1) Schizophrenia: Qualifiers: Schizophrenia type: paranoid schizophrenia Qualified Code(s): F20.0 - P aranoid schizophrenia Status: Acute Code(s): F20.9 - Schizophrenia, unspecified Assessment and Plan: CT current treatment plan Greater than 50% of the session was spent on counseling and/or coordination of care Patient educated on: diagnosis and medication risk/benefits Informed Consent: does not understand Reason for contiued inpatient stay Substantial Risk for: inability to function and rapid decompensation
[2020-09-20] MEDS: Nicotine Polacrilex 2 MG GUM BUCCAL ×2 (09:34→17:00)
[2020-09-20] MEDS: OLANZapine ODT 10 MG TAB.RAPDIS 20 MG TRANSLINGU (21:57)
[2020-09-20] MEDS: Acetaminophen 325 MG TABLET 650 MG PO (21:59)
--- NOTE | 2020-09-21 09:24 | P.PNPSI_ITS ---
Subjective Subjective Date of Service: 09/21/20 Reason For Visit: acute psychotic decompensation Subjective Notes: Guerin Warning and Legal Status (s.7) Interim History: Lon continues to be distracted and vague. He becomes irritated when efforts are made to speak with him about his treatment. He speaks about things that are not connected to what he is being asked. He is not able to participate in a conversation though he did state today that he would go back to [facility]. He is only intermittently compliant with Depakote, but is taking zyprexa. Medication Compliance: Yes Side effects from medications: No Attending Groups: No Review of Systems Acute medical concerns: No Medical Review of Systems: unchanged Mental Status Exam Mental Status Exam Narrative: ongoing guarded irritable Patient Appearance: Disheveled, Appropriate and Unkempt Patient Orientation: Person, Place and Situation Level of Consciousness: Awake and Appropriate Patient Behavior: Guarded, Suspicious, Resistive to Care, Invasion - Personal Space, Distractible, Uncooperative and Poor Eye Contact Mood Description: Apathetic and Flat Affect Description: Hostile and Labile Patient Cognition Impaired: No Ability to Follow Directions: Poor Speech Pattern: Clear, Mumbled and Poor Articulation Memory Description: Intact Hallucinations: None Delusions: Paranoid Ideation (?) and Present Thought Process: Evasive Thought Content: positive for Poverty of Content, positive for Preoccupation, positive for Loose Associations, positive for Disorganized, negative for Suicidal Ideation and negative for Homicidal Ideation Judgement: Poor Diagnostics Vital Signs (24Hr): Body Mass Index 31.9 Labs Results: 09/08/20 15:09 09/08/20 15:09 Labs: Laboratory Results - last 48 hr 09/19/20 09/19/20 09/19/20 12:12 12:12 12:12 Estimat Average Glucose 100 Hemoglobin A1c % 5.1 Triglycerides 178 Cholesterol 144 LDL Cholesterol, Calc 73 HDL Cholesterol 36 Lipoprotein (a) Cancelled Medications Medications Current Medications Generic Name Dose Route Start Last Admin Trade Name Freq PRN Reason Stop Dose Admin Acetaminophen 650 mg 09/11/20 20:11 09/20/20 21:59 Acetaminophen 325 Mg Tablet PO 650 mg Q6H PRN Administration Headache/Pain Mild Scale (1-3) Al Hydroxide/Mg Hydroxide 30 ml 09/11/20 20:11 Magnesium Hydrox/Alum Hydrox 30 Ml Oral.Susp PO Q6H PRN Heartburn/Nausea Divalproex Sodium 1,000 mg 09/19/20 21:00 09/20/20 22:01 Divalproex Sodium Er 500 Mg Tab.Er.24h PO Not Given BEDTIME HERON Hydroxyzine HCl 25 mg 09/11/20 20:11 09/18/20 22:02 Hydroxyzine Hcl 25 Mg Tablet PO 25 mg BEDTIME PRN Administration Anxiety Lorazepam 1 mg 09/11/20 20:11 09/17/20 16:19 Lorazepam 1 Mg Tablet PO 1 mg Q4H PRN Administration Alcohol Withdrawal Magnesium Hydroxide 30 ml 09/11/20 20:11 Milk Of Magnesia 30 Ml Oral.Susp PO DAILY PRN Constipation Nicotine Polacrilex 2 mg 09/11/20 20:11 09/20/20 17:00 Nicotine Polacrilex 2 Mg Gum BUCCAL 2 mg Q2H PRN Administration Nicotine Cravings Olanzapine 5 mg 09/12/20 12:37 09/18/20 18:58 Olanzapine 5 Mg Tablet PO 5 mg Q4H PRN Administration Anxiety Olanzapine 20 mg 09/17/20 21:00 09/20/20 21:57 Olanzapine Odt 10 Mg Tab.Rapdis TRANSLINGU 20 mg BEDTIME HERON Administration Allergies Allergies Allergy/AdvReac Type Severity Reaction Status Date / Time Penicillins [PCN] Allergy Unknown UNKNOWN Unverified 08/02/20 16:43 Assessment & Plan Assessment & Plan (1) Schizophrenia: Qualifiers: Schizophrenia type: paranoid schizophrenia Qualified Code(s): F20.0 - Paranoid schizophrenia Status: Acute Code(s): F20.9 - Schizophrenia, unspecified Assessment and Plan: CT current treatment plan Mouth checks after administration Greater than 50% of the session was spent on counseling and/or coordination of care Patient educated on: diagnosis and medication risk/benefits Informed Consent: further education needed Reason for contiued inpatient stay Substantial Risk for: rapid decompensation
[2020-09-21] MEDS: OLANZapine 5 MG TABLET PO (12:07)
[2020-09-21] MEDS: Nicotine Polacrilex 2 MG GUM BUCCAL (12:09)
[2020-09-21] MEDS: OLANZapine ODT 10 MG TAB.RAPDIS 20 MG TRANSLINGU (20:11)
[2020-09-21] MEDS: hydrOXYzine HCL 25 MG TABLET PO (20:11)
[2020-09-21 20:14] VITALS: BP 135/72; PULSE 68; TEMP 36.7
[2020-09-22 11:06] VITALS: BP 133/72; PULSE 80; TEMP 36.8; O2SAT 98
[2020-09-22] MEDS: OLANZapine ODT 10 MG TAB.RAPDIS 20 MG TRANSLINGU (20:09)
--- NOTE | 2020-09-22 20:58 | HO.PSYCHPN ---
Subjective Subjective Date of Service: 09/22/20 Reason For Visit: acute psychotic decompensation Subjective Notes: Guerin Warning and Legal Status (s.7) Interim History: Lon continues to be distracted and vague. He becomes irritated when efforts are made to speak with him about his treatment. He speaks about things that are not connected to what he is being asked. He is not able to participate in a conversation though he did state today that he would go back to [facility]. Each day he does seem to be clearer. He was able to keep himself in check during a lot of commotion on the unit today. Medication Compliance: Yes Side effects from medications: No Attending Groups: No Review of Systems Acute medical concerns: No Medical Review of Systems: unchanged Mental Status Exam Mental Status Exam Narrative: ongoing guarded irritable Patient Appearance: Disheveled, Appropriate and Unkempt Patient Orientation: Person, Place and Situation Level of Consciousness: Awake and Appropriate Patient Behavior: Guarded, Suspicious, Resistive to Care, Invasion - Personal Space, Distractible, Uncooperative and Poor Eye Contact Mood Description: Apathetic and Flat Affect Description: Apathetic Patient Cognition Impaired: No Ability to Follow Directions: Poor Speech Pattern: Clear, Mumbled and Poor Articulation Memory Description: Intact Hallucinations: None Delusions: Paranoid Ideation (?) and Present Thought Process: Evasive Thought Content: positive for Poverty of Content, positive for Preoccupation, positive for Loose Associations, positive for Disorganized, negative for Suicidal Ideation and negative for Homicidal Ideation Judgement: Poor Diagnostics Vital Signs (24Hr): Vital Signs - 24 hr 09/22/20 11:06 Temperature 98.3 F Pulse Rate 80 Blood Pressure 133/72 Pulse Oximetry 98 Body Mass Index 31.9 Labs Results: 09/08/20 15:09 09/08/20 15:09 Medications Medications Current Medications Generic Name Dose Route Start Last Admin Trade Name Freq PRN Reason Stop Dose Admin Acetaminophen 650 mg 09/11/20 20:11 09/20/20 21:59 Acetaminophen 325 Mg Tablet PO 650 mg Q6H PRN Administration Headache/Pain Mild Scale (1-3) Al Hydroxide/Mg Hydroxide 30 ml 09/11/20 20:11 Magnesium Hydrox/Alum Hydrox 30 Ml Oral.Susp PO Q6H PRN Heartburn/Nausea Divalproex Sodium 1,000 mg 09/19/20 21:00 09/22/20 20:13 Divalproex Sodium Er 500 Mg Tab.Er.24h PO Not Given BEDTIME HERON Hydroxyzine HCl 25 mg 09/11/20 20:11 09/21/20 20:11 Hydroxyzine Hcl 25 Mg Tablet PO 25 mg BEDTIME PRN Administration Anxiety Magnesium Hydroxide 30 ml 09/11/20 20:11 Milk Of Magnesia 30 Ml Oral.Susp PO DAILY PRN Constipation Nicotine Polacrilex 2 mg 09/11/20 20:11 09/21/20 12:09 Nicotine Polacrilex 2 Mg Gum BUCCAL 2 mg Q2H PRN Administration Nicotine Cravings Olanzapine 5 mg 09/12/20 12:37 09/21/20 12:07 Olanzapine 5 Mg Tablet PO 5 mg Q4H PRN Administration Anxiety Olanzapine 20 mg 09/17/20 21:00 09/22/20 20:09 Olanzapine Odt 10 Mg Tab.Rapdis TRANSLINGU 20 mg BEDTIME HERON Administration Allergies Allergies Allergy/AdvReac Type Severity Reaction Status Date / Time Penicillins [PCN] Allergy Unknown UNKNOWN Unverified 08/02/20 16:43 Assessment & Plan Assessment & Plan (1) Schizophrenia: Qualifiers: Schizophrenia type: paranoid schizophrenia Qualified Code(s): F20.0 - Paranoid schizophrenia Status: Acute Code(s): F20.9 - Schizophrenia, unspecified Assessment and Plan: CT current medication Encourage depakote CT contact with [facility] Greater than 50% of the session was spent on counseling and/or coordination of care Patient educated on: diagnosis, medication risk/benefits and substance abuse Informed Consent: does not understand Reason for contiued inpatient stay Substantial Risk for: rapid decompensation
[2020-09-23 06:22] VITALS: BP 113/55; PULSE 53; RESP 16; TEMP 36.6
--- NOTE | 2020-09-23 12:38 | P.PNPSI_ITS ---
Subjective Subjective Date of Service: 09/22/20 Reason For Visit: acute psychotic decompensation Subjective Notes: Guerin Warning and Legal Status (s.7) Interim History: Lon continues to be distracted and vague, though he is improving. He is more on point. He did state today that he would go back to [facility]. Each day he does seem to be clearer. He was able to keep himself in check during a lot of commotion on the unit today. Medication Compliance: Yes Side effects from medications: No Attending Groups: No Review of Systems Acute medical concerns: No Medical Review of Systems: unchanged Mental Status Exam Mental Status Exam Narrative: ongoing guarded irritable Patient Appearance: Disheveled, Appropriate and Unkempt Patient Orientation: Person, Place and Situation Level of Consciousness: Awake and Appropriate Patient Behavior: Guarded, Suspicious, Resistive to Care, Invasion - Personal Space, Distractible, Uncooperative and Poor Eye Contact Mood Description: Apathetic and Flat Affect Description: Apathetic Patient Cognition Impaired: No Ability to Follow Directions: Poor Speech Pattern: Clear, Mumbled and Poor Articulation Memory Description: Intact Hallucinations: None Delusions: Paranoid Ideation (?) and Present Thought Process: Evasive Thought Content: positive for Poverty of Content, positive for Preoccupation, positive for Loose Associations, positive for Disorganized, negative for Suicidal Ideation and negative for Homicidal Ideation Judgement: Poor Diagnostics Vital Signs (24Hr): Vital Signs - 24 hr 09/23/20 06:22 Temperature 97.9 F Pulse Rate 53 Respiratory Rate 16 Blood Pressure 113/55 L Body Mass Index 31.9 Labs Results: 09/08/20 15:09 09/08/20 15:09 Medications Medications Current Medications Generic Name Dose Route Start Last Admin Trade Name Freq PRN Reason Stop Dose Admin Acetaminophen 650 mg 09/11/20 20:11 09/20/20 21:59 Acetaminophen 325 Mg Tablet PO 650 mg Q6H PRN Administration Headache/Pain Mild Scale (1-3) Al Hydroxide/Mg Hydroxide 30 ml 09/11/20 20:11 Magnesium Hydrox/Alum Hydrox 30 Ml Oral.Susp PO Q6H PRN Heartburn/Nausea Divalproex Sodium 1,000 mg 09/19/20 21:00 09/22/20 20:13 Divalproex Sodium Er 500 Mg Tab.Er.24h PO Not Given BEDTIME HERON Hydroxyzine HCl 25 mg 09/11/20 20:11 09/21/20 20:11 Hydroxyzine Hcl 25 Mg Tablet PO 25 mg BEDTIME PRN Administration Anxiety Magnesium Hydroxide 30 ml 09/11/20 20:11 Milk Of Magnesia 30 Ml Oral.Susp PO DAILY PRN Constipation Nicotine Polacrilex 2 mg 09/11/20 20:11 09/21/20 12:09 Nicotine Polacrilex 2 Mg Gum BUCCAL 2 mg Q2H PRN Administration Nicotine Cravings Olanzapine 5 mg 09/12/20 12:37 09/21/20 12:07 Olanzapine 5 Mg Tablet PO 5 mg Q4H PRN Administration Anxiety Olanzapine 20 mg 09/17/20 21:00 09/22/20 20:09 Olanzapine Odt 10 Mg Tab.Rapdis TRANSLINGU 20 mg BEDTIME HERON Administration Allergies Allergies Allergy/AdvReac Type Severity Reaction Status Date / Time Penicillins [PCN] Allergy Unknown UNKNOWN Unverified 08/02/20 16:43 Assessment & Plan Assessment & Plan (1) Schizophrenia: Qualifiers: Schizophrenia type: paranoid schizophrenia Qualified Code(s): F20.0 - Paranoid schizophrenia Status: Acute Code(s): F20.9 - Schizophrenia, unspecified Assessment and Plan: CT current plan Greater than 50% of the session was spent on counseling and/or coordination of care Patient educated on: diagnosis, medication risk/benefits and substance abuse Informed Consent: further education needed Reason for contiued inpatient stay Substantial Risk for: rapid decompensation
[2020-09-23] MEDS: OLANZapine ODT 10 MG TAB.RAPDIS 20 MG TRANSLINGU (21:05)
--- NOTE | 2020-09-24 14:10 | HO.PSYCHPN ---
Subjective Subjective Date of Service: 09/24/20 Reason For Visit: acute psychotic decompensation Subjective Notes: Guerin Warning and Legal Status (s.7) Interim History: Lon continues to improve. He is more on point. He did state today that he would go back to [facility], although he has gone back and forth on this. Each day he does seem to be clearer. He was able to keep himself in check during a lot of commotion on the unit today. Medication Compliance: Yes Side effects from medications: No Attending Groups: No Review of Systems Acute medical concerns: No Medical Review of Systems: unchanged Mental Status Exam Mental Status Exam Narrative: ongoing guarded irritable Patient Appearance: Disheveled, Appropriate and Unkempt Patient Orientation: Person, Place and Situation Level of Consciousness: Awake and Appropriate Patient Behavior: Guarded, Suspicious, Resistive to Care, Invasion - Personal Space, Distractible, Uncooperative and Poor Eye Contact Mood Description: Apathetic and Flat Affect Description: Apathetic Patient Cognition Impaired: No Ability to Follow Directions: Poor Speech Pattern: Clear, Mumbled and Poor Articulation Memory Description: Intact Hallucinations: None Delusions: Paranoid Ideation (?) and Present Thought Process: Evasive Thought Content: positive for Poverty of Content, positive for Preoccupation, positive for Loose Associations, positive for Disorganized, negative for Suicidal Ideation and negative for Homicidal Ideation Judgement: Poor Diagnostics Vital Signs (24Hr): Body Mass Index 31.9 Labs Results: 09/08/20 15:09 09/08/20 15:09 Medications Medications Current Medications Generic Name Dose Route Start Last Admin Trade Name Freq PRN Reason Stop Dose Admin Acetaminophen 650 mg 09/11/20 20:11 09/20/20 21:59 Acetaminophen 325 Mg Tablet PO 650 mg Q6H PRN Administration Headache/Pain Mild Scale (1-3) Al Hydroxide/Mg Hydroxide 30 ml 09/11/20 20:11 Magnesium Hydrox/Alum Hydrox 30 Ml Oral.Susp PO Q6H PRN Heartburn/Nausea Divalproex Sodium 1,000 mg 09/19/20 21:00 09/23/20 21:06 Divalproex Sodium Er 500 Mg Tab.Er.24h PO Not Given BEDTIME HERON Hydroxyzine HCl 25 mg 09/11/20 20:11 09/21/20 20:11 Hydroxyzine Hcl 25 Mg Tablet PO 25 mg BEDTIME PRN Administration Anxiety Magnesium Hydroxide 30 ml 09/11/20 20:11 Milk Of Magnesia 30 Ml Oral.Susp PO DAILY PRN Constipation Nicotine Polacrilex 2 mg 09/11/20 20:11 09/21/20 12:09 Nicotine Polacrilex 2 Mg Gum BUCCAL 2 mg Q2H PRN Administration Nicotine Cravings Olanzapine 5 mg 09/12/20 12:37 09/21/20 12:07 Olanzapine 5 Mg Tablet PO 5 mg Q4H PRN Administration Anxiety Olanzapine 20 mg 09/17/20 21:00 09/23/20 21:05 Olanzapine Odt 10 Mg Tab.Rapdis TRANSLINGU 20 mg BEDTIME HERON Administration Allergies Allergies Allergy/AdvReac Type Severity Reaction Status Date / Time Penicillins [PCN] Allergy Unknown UNKNOWN Unverified 08/02/20 16:43 Assessment & Plan Assessment & Plan (1) Schizophrenia: Qualifiers: Schizophrenia type: paranoid schizophrenia Qualified Code(s): F20.0 - Paranoid schizophrenia Status: Acute Code(s): F20.9 - Schizophrenia, unspecified Assessment and Plan: CT current treatment plan Greater than 50% of the session was spent on counseling and/or coordination of care Patient educated on: diagnosis, medication risk/benefits and substance abuse Informed Consent: further education needed Reason for contiued inpatient stay Substantial Risk for: rapid decompensation
[2020-09-24 19:10] VITALS: BP 148/90; PULSE 83; TEMP 36.6
[2020-09-24] MEDS: OLANZapine ODT 10 MG TAB.RAPDIS 20 MG TRANSLINGU (21:16)
[2020-09-24] MEDS: Divalproex Sodium ER 500 MG TAB.ER.24H 1000 MG PO (21:18)
[2020-09-25 06:00] VITALS: BP 165/81; PULSE 85; TEMP 36.4
--- NOTE | 2020-09-25 15:36 | HO.PSYCHPN ---
Subjective Subjective Date of Service: 09/25/20 Reason For Visit: acute psychotic decompensation Subjective Notes: Guerin Warning and Legal Status (s.7) Interim History: Lon continues to improve. He is more on point. He did state today that he would go back to [facility]. He asked about whether there were other options. Each day he does seem to be clearer. He has not been taking depakote except intermittently. He reports that it upsets his stomach. Since he is improving will DC Medication Compliance: Yes Side effects from medications: No Attending Groups: No Review of Systems Acute medical concerns: No Medical Review of Systems: unchanged Mental Status Exam Mental Status Exam Narrative: ongoing guarded irritable Patient Appearance: Well Grooomed and Appropriate Patient Orientation: Person, Place and Situation Level of Consciousness: Awake and Appropriate Patient Behavior: Appropriate and Guarded Mood Description: Apathetic and Flat Affect Description: Apathetic Patient Cognition Impaired: No Ability to Follow Directions: Fair Speech Pattern: Clear Memory Description: Intact Hallucinations: None Delusions: Not Present Thought Process: Intact Thought Content: positive for Intact, negative for Suicidal Ideation and negative for Homicidal Ideation Judgement: Fair Diagnostics Vital Signs (24Hr): Vital Signs - 24 hr 09/24/20 19:10 Temperature 97.8 F Pulse Rate 83 Blood Pressure 148/90 H Body Mass Index 31.9 Labs Results: 09/08/20 15:09 09/08/20 15:09 Medications Medications Current Medications Generic Name Dose Route Start Last Admin Trade Name Freq PRN Reason Stop Dose Admin Acetaminophen 650 mg 09/11/20 20:11 09/20/20 21:59 Acetaminophen 325 Mg Tablet PO 650 mg Q6H PRN Administration Headache/Pain Mild Scale (1-3) Al Hydroxide/Mg Hydroxide 30 ml 09/11/20 20:11 Magnesium Hydrox/Alum Hydrox 30 Ml Oral.Susp PO Q6H PRN Heartburn/Nausea Divalproex Sodium 1,000 mg 09/19/20 21:00 09/24/20 21:18 Divalproex Sodium Er 500 Mg Tab.Er.24h PO 500 mg BEDTIME HERON Administration Hydroxyzine HCl 25 mg 09/11/20 20:11 09/21/20 20:11 Hydroxyzine Hcl 25 Mg Tablet PO 25 mg BEDTIME PRN Administration Anxiety Magnesium Hydroxide 30 ml 09/11/20 20:11 Milk Of Magnesia 30 Ml Oral.Susp PO DAILY PRN Constipation Nicotine Polacrilex 2 mg 09/11/20 20:11 09/21/20 12:09 Nicotine Polacrilex 2 Mg Gum BUCCAL 2 mg Q2H PRN Administration Nicotine Cravings Olanzapine 5 mg 09/12/20 12:37 09/21/20 12:07 Olanzapine 5 Mg Tablet PO 5 mg Q4H PRN Administration Anxiety Olanzapine 20 mg 09/17/20 21:00 09/24/20 21:16 Olanzapine Odt 10 Mg Tab.Rapdis TRANSLINGU 20 mg BEDTIME HERON Administration Allergies Allergies Allergy/AdvReac Type Severity Reaction Status Date / Time Penicillins [PCN] Allergy Unknown UNKNOWN Unverified 08/02/20 16:43 Assessment & Plan Assessment & Plan (1) Schizophrenia: Qualifiers: Schizophrenia type: paranoid schizophrenia Qualified Code(s): F20.0 - Paranoid schizophrenia Status: Acute Code(s): F20.9 - Schizophrenia, unspecified Assessment and Plan: CT current treatment plan Consult with [facility] regarding options. Greater than 50% of the session was spent on counseling and/or coordination of care Patient educated on: diagnosis and medication risk/benefits Informed Consent: further education needed Reason for contiued inpatient stay Substantial Risk for: rapid decompensation
[2020-09-25 21:00] VITALS: BP 165/81; PULSE 85; TEMP 36.2
[2020-09-25] MEDS: OLANZapine ODT 10 MG TAB.RAPDIS 20 MG TRANSLINGU (21:13)
--- NOTE | 2020-09-26 09:06 | P.PNPSI_ITS ---
Subjective Subjective Date of Service: 09/26/20 Reason For Visit: acute psychotic decompensation Subjective Notes: Guerin Warning and Legal Status (s.7) Interim History: Lon continues to improve. He is more on point. He did state today that he would go back to [facility]. He asked about whether there were other options. SW is coordinating Each day he does seem to be clearer. He has not been taking depakote except intermittently. He reports that it upsets his stomach. Since he is improving will DC Medication Compliance: Yes Side effects from medications: No Attending Groups: No Review of Systems Acute medical concerns: No Medical Review of Systems: unchanged Mental Status Exam Mental Status Exam Narrative: ongoing guarded irritable Patient Appearance: Well Grooomed and Appropriate Patient Orientation: Person, Place and Situation Level of Consciousness: Awake and Appropriate Patient Behavior: Appropriate and Guarded Mood Description: Apathetic and Flat Affect Description: Apathetic Patient Cognition Impaired: No Ability to Follow Directions: Fair Speech Pattern: Clear Memory Description: Intact Hallucinations: None Delusions: Not Present Thought Process: Intact Thought Content: positive for Intact, negative for Suicidal Ideation and negative for Homicidal Ideation Judgement: Fair Diagnostics Vital Signs (24Hr): Vital Signs - 24 hr 09/25/20 21:00 Temperature 97.2 F Pulse Rate 85 Blood Pressure 165/81 H Body Mass Index 31.9 Labs Results: 09/08/20 15:09 09/08/20 15:09 Medications Medications Current Medications Generic Name Dose Route Start Last Admin Trade Name Freq PRN Reason Stop Dose Admin Acetaminophen 650 mg 09/11/20 20:11 09/20/20 21:59 Acetaminophen 325 Mg Tablet PO 650 mg Q6H PRN Administration Headache/Pain Mild Scale (1-3) Al Hydroxide/Mg Hydroxide 30 ml 09/11/20 20:11 Magnesium Hydrox/Alum Hydrox 30 Ml Oral.Susp PO Q6H PRN Heartburn/Nausea Hydroxyzine HCl 25 mg 09/11/20 20:11 09/21/20 20:11 Hydroxyzine Hcl 25 Mg Tablet PO 25 mg BEDTIME PRN Administration Anxiety Magnesium Hydroxide 30 ml 09/11/20 20:11 Milk Of Magnesia 30 Ml Oral.Susp PO DAILY PRN Constipation Nicotine Polacrilex 2 mg 09/11/20 20:11 09/21/20 12:09 Nicotine Polacrilex 2 Mg Gum BUCCAL 2 mg Q2H PRN Administration Nicotine Cravings Olanzapine 5 mg 09/12/20 12:37 09/21/20 12:07 Olanzapine 5 Mg Tablet PO 5 mg Q4H PRN Administration Anxiety Olanzapine 20 mg 09/17/20 21:00 09/25/20 21:13 Olanzapine Odt 10 Mg Tab.Rapdis TRANSLINGU 20 mg BEDTIME HERON Administration Allergies Allergies Allergy/AdvReac Type Severity Reaction Status Date / Time Penicillins [PCN] Allergy Unknown UNKNOWN Unverified 08/02/20 16:43 Assessment & Plan Assessment & Plan (1) Schizophrenia: Qualifiers: Schizophrenia type: paranoid schizophrenia Qualified Code(s): F20.0 - Paranoid schizophrenia Status: Acute Code(s): F20.9 - Schizophrenia, unspecified Assessment and Plan: CT current plan Meet with SW and [facility] regarding housing options. Greater than 50% of the session was spent on counseling and/or coordination of care Patient educated on: diagnosis, medication risk/benefits and substance abuse Informed Consent: does not understand Reason for contiued inpatient stay Substantial Risk for: rapid decompensation
[2020-09-26] MEDS: Acetaminophen 325 MG TABLET 650 MG PO (15:52)
[2020-09-26] MEDS: OLANZapine ODT 10 MG TAB.RAPDIS 20 MG TRANSLINGU (20:55)
[2020-09-27] MEDS: Nicotine Polacrilex 2 MG GUM BUCCAL (10:32)
--- NOTE | 2020-09-27 15:27 | HO.PSYCHPN ---
Subjective Subjective Date of Service: 09/27/20 Reason For Visit: acute psychotic decompensation Subjective Notes: Guerin Warning and Legal Status (s.7) Interim History: Lon continues to improve. He is more on point. He is having a meeting with [facility] and [facility] regarding housing options.i Medication Compliance: Yes Side effects from medications: No Attending Groups: No Review of Systems Acute medical concerns: No Medical Review of Systems: unchanged Mental Status Exam Mental Status Exam Narrative: ongoing guarded irritable Patient Appearance: Well Grooomed and Appropriate Patient Orientation: Person, Place and Situation Level of Consciousness: Awake and Appropriate Patient Behavior: Appropriate and Guarded Mood Description: Apathetic and Flat Affect Description: Apathetic Patient Cognition Impaired: No Ability to Follow Directions: Fair Speech Pattern: Clear Memory Description: Intact Hallucinations: None Delusions: Not Present Thought Process: Intact Thought Content: positive for Intact, negative for Suicidal Ideation and negative for Homicidal Ideation Judgement: Fair Diagnostics Vital Signs (24Hr): Body Mass Index 31.9 Labs Results: 09/08/20 15:09 09/08/20 15:09 Medications Medications Current Medications Generic Name Dose Route Start Last Admin Trade Name Gilbertq PRN Reason Stop Dose Admin Acetaminophen 650 mg 09/11/20 20:11 09/26/20 15:52 Acetaminophen 325 Mg Tablet PO 650 mg Q6H PRN Administration Headache/Pain Mild Scale (1-3) Al Hydroxide/Mg Hydroxide 30 ml 09/11/20 20:11 Magnesium Hydrox/Alum Hydrox 30 Ml Oral.Susp PO Q6H PRN Heartburn/Nausea Hydroxyzine HCl 25 mg 09/11/20 20:11 09/21/20 20:11 Hydroxyzine Hcl 25 Mg Tablet PO 25 mg BEDTIME PRN Administration Anxiety Magnesium Hydroxide 30 ml 09/11/20 20:11 Milk Of Magnesia 30 Ml Oral.Susp PO DAILY PRN Constipation Nicotine Polacrilex 2 mg 09/11/20 20:11 09/27/20 10:32 Nicotine Polacrilex 2 Mg Gum BUCCAL 2 mg Q2H PRN Administration Nicotine Cravings Olanzapine 5 mg 09/12/20 12:37 09/21/20 12:07 Olanzapine 5 Mg Tablet PO 5 mg Q4H PRN Administration Anxiety Olanzapine 20 mg 09/17/20 21:00 09/26/20 20:55 Olanzapine Odt 10 Mg Tab.Rapdis TRANSLINGU 20 mg BEDTIME HERON Administration Allergies Allergies Allergy/AdvReac Type Severity Reaction Status Date / Time Penicillins [PCN] Allergy Unknown UNKNOWN Unverified 08/02/20 16:43 Assessment & Plan Assessment & Plan (1) Schizophrenia: Qualifiers: Schizophrenia type: paranoid schizophrenia Qualified Code(s): F20.0 - Paranoid schizophrenia Status: Acute Code(s): F20.9 - Schizophrenia, unspecified Assessment and Plan: CT current medication CT to liase with [facility] and [facility] regarding options Greater than 50% of the session was spent on counseling and/or coordination of care Patient educated on: diagnosis, medication risk/benefits and substance abuse Informed Consent: further education needed Reason for contiued inpatient stay Substantial Risk for: inability to function
[2020-09-27] MEDS: OLANZapine ODT 10 MG TAB.RAPDIS 20 MG TRANSLINGU (20:53)
[2020-09-28] MEDS: Nicotine Polacrilex 2 MG GUM BUCCAL (14:42)
--- NOTE | 2020-09-28 19:11 | HO.PSYCHPN ---
Subjective Subjective Date of Service: 09/28/20 Reason For Visit: acute psychotic decompensation Subjective Notes: Guerin Warning and Legal Status (s.7) Interim History: Lon continues to improve. He is more on point. He was apparently silly during his meeting with [facility] and there is uncertainty about his ability to maintain in that program. [facility] and [facility] are considering options as Lon is slowly returning to baseline. Medication Compliance: Yes Side effects from medications: No Attending Groups: No Review of Systems Acute medical concerns: No Medical Review of Systems: unchanged Mental Status Exam Mental Status Exam Patient Appearance: Well Grooomed and Appropriate Patient Orientation: Person, Place and Situation Level of Consciousness: Awake and Appropriate Patient Behavior: Appropriate, Guarded and Isolative Mood Description: Apathetic and Flat Affect Description: Apathetic Patient Cognition Impaired: No Ability to Follow Directions: Fair Speech Pattern: Clear Memory Description: Intact Hallucinations: None Delusions: Not Present Thought Process: Intact Thought Content: positive for Intact, negative for Suicidal Ideation and negative for Homicidal Ideation Judgement: Fair Diagnostics Vital Signs (24Hr): Body Mass Index 31.9 Labs Results: 09/08/20 15:09 09/08/20 15:09 Medications Medications Current Medications Generic Name Dose Route Start Last Admin Trade Name Freq PRN Reason Stop Dose Admin Acetaminophen 650 mg 09/11/20 20:11 09/26/20 15:52 Acetaminophen 325 Mg Tablet PO 650 mg Q6H PRN Administration Headache/Pain Mild Scale (1-3) Al Hydroxide/Mg Hydroxide 30 ml 09/11/20 20:11 Magnesium Hydrox/Alum Hydrox 30 Ml Oral.Susp PO Q6H PRN Heartburn/Nausea Hydroxyzine HCl 25 mg 09/11/20 20:11 09/21/20 20:11 Hydroxyzine Hcl 25 Mg Tablet PO 25 mg BEDTIME PRN Administration Anxiety Magnesium Hydroxide 30 ml 09/11/20 20:11 Milk Of Magnesia 30 Ml Oral.Susp PO DAILY PRN Constipation Nicotine Polacrilex 2 mg 09/11/20 20:11 09/28/20 14:42 Nicotine Polacrilex 2 Mg Gum BUCCAL 2 mg Q2H PRN Administration Nicotine Cravings Olanzapine 5 mg 09/12/20 12:37 09/21/20 12:07 Olanzapine 5 Mg Tablet PO 5 mg Q4H PRN Administration Anxiety Olanzapine 20 mg 09/17/20 21:00 09/27/20 20:53 Olanzapine Odt 10 Mg Tab.Rapdis TRANSLINGU 20 mg BEDTIME HERON Administration Allergies Allergies Allergy/AdvReac Type Severity Reaction Status Date / Time Penicillins [PCN] Allergy Unknown UNKNOWN Unverified 08/02/20 16:43 Assessment & Plan Assessment & Plan (1) Schizophrenia: Qualifiers: Schizophrenia type: paranoid schizophrenia Qualified Code(s): F20.0 - Paranoid schizophrenia Status: Acute Code(s): F20.9 - Schizophrenia, unspecified Assessment and Plan: CT current medications Investigate disposition options Greater than 50% of the session was spent on counseling and/or coordination of care Patient educated on: diagnosis, medication risk/benefits and substance abuse Informed Consent: further education needed Reason for contiued inpatient stay Substantial Risk for: rapid decompensation
[2020-09-28] MEDS: OLANZapine ODT 10 MG TAB.RAPDIS 20 MG TRANSLINGU (20:00)
[2020-09-29 06:40] VITALS: RESP 18
--- NOTE | 2020-09-29 11:50 | HO.PSYCHPN ---
Subjective Subjective Reason For Visit: acute psychotic decompensation Interim History: Lon continues to improve. He is presenting clearer thinking [facility] and [facility] are considering options as Lon is slowly returning to baseline. Review of Systems Review of Systems no change Mental Status Exam Mental Status Exam Narrative: ongoing guarded irritable Patient Appearance: Well Grooomed and Appropriate Patient Orientation: Person, Place and Situation Level of Consciousness: Awake and Appropriate Patient Behavior: Appropriate, Guarded and Isolative Mood Description: Apathetic and Flat Affect Description: Apathetic Patient Cognition Impaired: No Ability to Follow Directions: Fair Speech Pattern: Clear Memory Description: Intact Diagnostics Vital Signs (24Hr): Vital Signs - 24 hr 09/29/20 06:40 Respiratory Rate 18 Body Mass Index 31.9 Labs Results: 09/08/20 15:09 09/08/20 15:09 Medications Medications Current Medications Generic Name Dose Route Start Last Admin Trade Name Freq PRN Reason Stop Dose Admin Acetaminophen 650 mg 09/11/20 20:11 09/26/20 15:52 Acetaminophen 325 Mg Tablet PO 650 mg Q6H PRN Administration Headache/Pain Mild Scale (1-3) Al Hydroxide/Mg Hydroxide 30 ml 09/11/20 20:11 Magnesium Hydrox/Alum Hydrox 30 Ml Oral.Susp PO Q6H PRN Heartburn/Nausea Hydroxyzine HCl 25 mg 09/11/20 20:11 09/21/20 20:11 Hydroxyzine Hcl 25 Mg Tablet PO 25 mg BEDTIME PRN Administration Anxiety Magnesium Hydroxide 30 ml 09/11/20 20:11 Milk Of Magnesia 30 Ml Oral.Susp PO DAILY PRN Constipation Nicotine Polacrilex 2 mg 09/11/20 20:11 09/28/20 14:42 Nicotine Polacrilex 2 Mg Gum BUCCAL 2 mg Q2H PRN Administration Nicotine Cravings Olanzapine 5 mg 09/12/20 12:37 09/21/20 12:07 Olanzapine 5 Mg Tablet PO 5 mg Q4H PRN Administration Anxiety Olanzapine 20 mg 09/17/20 21:00 09/28/20 20:00 Olanzapine Odt 10 Mg Tab.Rapdis TRANSLINGU 20 mg BEDTIME HERON Administration Allergies Allergies Allergy/AdvReac Type Severity Reaction Status Date / Time Penicillins [PCN] Allergy Unknown UNKNOWN Unverified 08/02/20 16:43 Assessment & Plan Assessment & Plan (1) Schizophrenia: Qualifiers: Schizophrenia type: paranoid schizophrenia Qualified Code(s): F20.0 - Paranoid schizophrenia Status: Acute Code(s): F20.9 - Schizophrenia, unspecified Assessment and Plan: CT current medications Investigate disposition options Greater than 50% of the session was spent on counseling and/or coordination of care
[2020-09-29] MEDS: Nicotine Polacrilex 2 MG GUM BUCCAL (13:08)
[2020-09-29] MEDS: Acetaminophen 325 MG TABLET 650 MG PO (16:06)
[2020-09-29] MEDS: OLANZapine ODT 10 MG TAB.RAPDIS 20 MG TRANSLINGU (20:58)
[2020-09-29 21:00] VITALS: BP 150/79; PULSE 79; TEMP 36.4
--- NOTE | 2020-09-30 12:06 | P.PNPSI_ITS ---
Subjective Subjective Date of Service: 09/30/20 Reason For Visit: acute psychotic decompensation Interim History: quiet, minimal verbal interaction, vague with this engineering writer talking about his weight and focused on kg vs lbs Attending Groups: No Review of Systems Review of Systems no changes Mental Status Exam Mental Status Exam Narrative: ongoing guarded Patient Appearance: Well Grooomed and Appropriate Patient Orientation: Person, Place and Situation Level of Consciousness: Awake and Appropriate Patient Behavior: Appropriate, Guarded and Isolative Mood Description: Apathetic and Flat Affect Description: Apathetic Patient Cognition Impaired: No Ability to Follow Directions: Fair Speech Pattern: Clear Memory Description: Intact Thought Process: Distracted Thought Content: positive for Preoccupation Abnormal Motor Activity Signs and Symptoms: Restlessness Judgement: Fair Diagnostics Vital Signs (24Hr): Vital Signs - 24 hr 09/29/20 21:00 Temperature 97.5 F Pulse Rate 79 Blood Pressure 150/79 H Body Mass Index 31.9 Labs Results: 09/08/20 15:09 09/08/20 15:09 Medications Medications Current Medications Generic Name Dose Route Start Last Admin Trade Name Freq PRN Reason Stop Dose Admin Acetaminophen 650 mg 09/11/20 20:11 09/29/20 16:06 Acetaminophen 325 Mg Tablet PO 650 mg Q6H PRN Administration Headache/Pain Mild Scale (1-3) Al Hydroxide/Mg Hydroxide 30 ml 09/11/20 20:11 Magnesium Hydrox/Alum Hydrox 30 Ml Oral.Susp PO Q6H PRN Heartburn/Nausea Hydroxyzine HCl 25 mg 09/11/20 20:11 09/21/20 20:11 Hydroxyzine Hcl 25 Mg Tablet PO 25 mg BEDTIME PRN Administration Anxiety Magnesium Hydroxide 30 ml 09/11/20 20:11 Milk Of Magnesia 30 Ml Oral.Susp PO DAILY PRN Constipation Nicotine Polacrilex 2 mg 09/11/20 20:11 09/29/20 13:08 Nicotine Polacrilex 2 Mg Gum BUCCAL 2 mg Q2H PRN Administration Nicotine Cravings Olanzapine 5 mg 09/12/20 12:37 09/21/20 12:07 Olanzapine 5 Mg Tablet PO 5 mg Q4H PRN Administration Anxiety Olanzapine 20 mg 09/17/20 21:00 09/29/20 20:58 Olanzapine Odt 10 Mg Tab.Rapdis TRANSLINGU 20 mg BEDTIME HERON Administration Allergies Allergies Allergy/AdvReac Type Severity Reaction Status Date / Time Penicillins [PCN] Allergy Unknown UNKNOWN Unverified 08/02/20 16:43 Assessment & Plan Assessment & Plan (1) Schizophrenia: Qualifiers: Schizophrenia type: paranoid schizophrenia Qualified Code(s): F20.0 - Paranoid schizophrenia Status: Acute Code(s): F20.9 - Schizophrenia, unspecified Assessment and Plan: CT current medications Investigate disposition options Greater than 50% of the session was spent on counseling and/or coordination of care Reason for contiued inpatient stay Substantial Risk for: inability to function and med/psych decompensation
[2020-09-30] MEDS: Nicotine Polacrilex 2 MG GUM BUCCAL (13:19)
[2020-09-30] MEDS: OLANZapine ODT 10 MG TAB.RAPDIS 20 MG TRANSLINGU (21:26)
--- NOTE | 2020-10-01 09:24 | P.PNPSI_ITS ---
Subjective Subjective Date of Service: 10/01/20 Reason For Visit: acute psychotic decompensation Subjective Notes: Legal Status (s7) Interim History: Lon is calm and cooperative. He is able to hold a pretty clear conversation. He is expressing a willingness to go back to [facility] and to stay on his medications. 'SW is coordinating with the house. Medication Compliance: Yes Side effects from medications: No Attending Groups: No Review of Systems Acute medical concerns: No Medical Review of Systems: unchanged Mental Status Exam Mental Status Exam Narrative: ongoing guarded Patient Appearance: Well Grooomed and Appropriate Patient Orientation: Person, Place and Situation Level of Consciousness: Awake and Appropriate Patient Behavior: Appropriate and Isolative Mood Description: Apathetic and Flat Affect Description: Apathetic Patient Cognition Impaired: No Ability to Follow Directions: Fair Speech Pattern: Clear Memory Description: Intact Hallucinations: None Delusions: Not Present Thought Process: Distracted Thought Content: positive for Preoccupation Abnormal Motor Activity Signs and Symptoms: Restlessness Judgement: Fair Diagnostics Vital Signs (24Hr): Body Mass Index 31.9 Labs Results: 09/08/20 15:09 09/08/20 15:09 Medications Medications Current Medications Generic Name Dose Route Start Last Admin Trade Name Freq PRN Reason Stop Dose Admin Acetaminophen 650 mg 09/11/20 20:11 09/29/20 16:06 Acetaminophen 325 Mg Tablet PO 650 mg Q6H PRN Administration Headache/Pain Mild Scale (1-3) Al Hydroxide/Mg Hydroxide 30 ml 09/11/20 20:11 Magnesium Hydrox/Alum Hydrox 30 Ml Oral.Susp PO Q6H PRN Heartburn/Nausea Hydroxyzine HCl 25 mg 09/11/20 20:11 09/21/20 20:11 Hydroxyzine Hcl 25 Mg Tablet PO 25 mg BEDTIME PRN Administration Anxiety Magnesium Hydroxide 30 ml 09/11/20 20:11 Milk Of Magnesia 30 Ml Oral.Susp PO DAILY PRN Constipation Nicotine Polacrilex 2 mg 09/11/20 20:11 09/30/20 13:19 Nicotine Polacrilex 2 Mg Gum BUCCAL 2 mg Q2H PRN Administration Nicotine Cravings Olanzapine 5 mg 09/12/20 12:37 09/21/20 12:07 Olanzapine 5 Mg Tablet PO 5 mg Q4H PRN Administration Anxiety Olanzapine 20 mg 09/17/20 21:00 09/30/20 21:26 Olanzapine Odt 10 Mg Tab.Rapdis TRANSLINGU 20 mg BEDTIME HERON Administration Allergies Allergies Allergy/AdvReac Type Severity Reaction Status Date / Time Penicillins [PCN] Allergy Unknown UNKNOWN Unverified 08/02/20 16:43 Assessment & Plan Assessment & Plan (1) Schizophrenia: Qualifiers: Schizophrenia type: paranoid schizophrenia Qualified Code(s): F20.0 - Paranoid schizophrenia Status: Acute Code(s): F20.9 - Schizophrenia, unspecified Assessment and Plan: CT medication without change Liase with Se[facility] Lerma and [facility] Greater than 50% of the session was spent on counseling and/or coordination of care Patient educated on: diagnosis, medication risk/benefits and substance abuse Informed Consent: further education needed Reason for contiued inpatient stay Substantial Risk for: rapid decompensation
[2020-10-01] MEDS: Nicotine Polacrilex 2 MG GUM BUCCAL ×3 (11:04→18:03)
[2020-10-01 18:00] VITALS: BP 146/77; PULSE 91; TEMP 37.1
[2020-10-01] MEDS: OLANZapine ODT 10 MG TAB.RAPDIS 20 MG TRANSLINGU (20:29)
[2020-10-02] MEDS: Naloxone HCl Nasal TAKE HOME 4 MG SPRAY NOSTRILALT (10:40)
--- NOTE | 2020-10-02 17:02 | P.PNPSI_ITS ---
Subjective Subjective Date of Service: 10/02/20 Reason For Visit: acute psychotic decompensation Subjective Notes: Legal Status (s7) Interim History: Lon is calm and cooperative. He is able to hold a pretty clear conversation. He is expressing a willingness to go back to [facility] and to stay on his medications. Staff from [facility] will pick him up tomorrow. Medication Compliance: Yes Side effects from medications: No Attending Groups: No Review of Systems Acute medical concerns: No Medical Review of Systems: unchanged Mental Status Exam Mental Status Exam Narrative: ongoing guarded Patient Appearance: Well Grooomed and Appropriate Patient Orientation: Person, Place and Situation Level of Consciousness: Awake and Appropriate Patient Behavior: Appropriate and Isolative Mood Description: Apathetic and Flat Affect Description: Apathetic Patient Cognition Impaired: No Ability to Follow Directions: Fair Speech Pattern: Clear Memory Description: Intact Hallucinations: None Delusions: Not Present Thought Process: Distracted Thought Content: positive for Preoccupation Abnormal Motor Activity Signs and Symptoms: Restlessness Judgement: Fair Diagnostics Vital Signs (24Hr): Vital Signs - 24 hr 10/01/20 18:00 Temperature 98.8 F Pulse Rate 91 Blood Pressure 146/77 H Body Mass Index 31.9 Labs Results: 09/08/20 15:09 09/08/20 15:09 Medications Medications Current Medications Generic Name Dose Route Start Last Admin Trade Name Jaydon PRN Reason Stop Dose Admin Acetaminophen 650 mg 09/11/20 20:11 09/29/20 16:06 Acetaminophen 325 Mg Tablet PO 650 mg Q6H PRN Administration Headache/Pain Mild Scale (1-3) Al Hydroxide/Mg Hydroxide 30 ml 09/11/20 20:11 Magnesium Hydrox/Alum Hydrox 30 Ml Oral.Susp PO Q6H PRN Heartburn/Nausea Hydroxyzine HCl 25 mg 09/11/20 20:11 09/21/20 20:11 Hydroxyzine Hcl 25 Mg Tablet PO 25 mg BEDTIME PRN Administration Anxiety Magnesium Hydroxide 30 ml 09/11/20 20:11 Milk Of Magnesia 30 Ml Oral.Susp PO DAILY PRN Constipation Nicotine Polacrilex 2 mg 09/11/20 20:11 10/01/20 18:03 Nicotine Polacrilex 2 Mg Gum BUCCAL 2 mg Q2H PRN Administration Nicotine Cravings Olanzapine 5 mg 09/12/20 12:37 09/21/20 12:07 Olanzapine 5 Mg Tablet PO 5 mg Q4H PRN Administration Anxiety Olanzapine 20 mg 09/17/20 21:00 10/01/20 20:29 Olanzapine Odt 10 Mg Tab.Rapdis TRANSLINGU 20 mg BEDTIME HERON Administration Allergies Allergies Allergy/AdvReac Type Severity Reaction Status Date / Time Penicillins [PCN] Allergy Unknown UNKNOWN Unverified 08/02/20 16:43 Assessment & Plan Assessment & Plan (1) Schizophrenia: Qualifiers: Schizophrenia type: paranoid schizophrenia Qualified Code(s): F20.0 - Paranoid schizophrenia Status: Acute Code(s): F20.9 - Schizophrenia, unspecified Assessment and Plan: CT current plan DC in am Greater than 50% of the session was spent on counseling and/or coordination of care Patient educated on: diagnosis and medication risk/benefits Informed Consent: further education needed Reason for contiued inpatient stay Substantial Risk for: rapid decompensation
[2020-10-02] MEDS: OLANZapine ODT 10 MG TAB.RAPDIS 20 MG TRANSLINGU (20:52)
[2020-10-03 06:15] VITALS: RESP 16
--- NOTE | 2020-10-03 09:23 | P.DS_ITS ---
DS: Providers Provider Date of admission: 09/11/20 16:45 Date of discharge: 10/03/20 Primary care physician: Unknown Physician Attending physician on admission: Elaine Marsh Attending physician on discharge: Elaine Marsh DS: Diagnosis Discharge Diagnosis (1) Schizoaffective disorder: Status: Acute DS: Medications Discharge Medications Home Medications: Previous Rx's Medication Instructions Recorded olanzapine [Zyprexa] 20 mg PO BEDTIME #30 tab 10/02/20 Discharge Plan Discharge Patient Disposition: Home, Self-Care Referrals: Diaz Ash, psychiatry [Other] - 10/04/20 9:00 am (Telehealth) Rena Aguilera ENGINEERING AND SCIENTIFIC PROGRAMMER [Nurse Practitioner] - 10/09/20 8:40 am (IN OFFICE) Discharge Medications: New olanzapine [Zyprexa] 20 mg tablet 20 mg PO BEDTIME Qty: 30 RF: 0 Discharge Orders: Discharge Order (Routine); Ordered 10/03/20 Ordered By: Elaine Marsh Diet: advance to usual diet Activity on Discharge: As tolerated Patient Instructions: Schizophrenia (ED) Stand Alone Forms: Community Support Discharge Date/Time: 10/03/20 10:45 Print Language: Armenian Activity Restrictions/Additional Instructions: Visit Report Forms: Patient Portal Discharge page Care Plan Goals: Reduce psychosis Stay sober Health Concerns: Psychosis Medication non-compliance Substance abuse Plan of Treatment: Take your medications Don't use drugs Follow the rules at [facility] Mental Status Exam Mental Status Exam Narrative: ongoing guarded Patient Appearance: Well Grooomed and Appropriate Patient Orientation: Person, Place and Situation Level of Consciousness: Awake and Appropriate Patient Behavior: Appropriate and Isolative Mood Description: Apathetic and Flat Affect Description: Apathetic Patient Cognition Impaired: No Ability to Follow Directions: Fair Speech Pattern: Clear Memory Description: Intact Hallucinations: None Delusions: Not Present Thought Process: Distracted Thought Content: positive for Preoccupation Abnormal Motor Activity Signs and Symptoms: Restlessness Judgement: Fair DS: Summary Hospital Course Hospital Course: 25 year old man who was admitted after referral by N. He presented to the ER with agitation, psychosis and intoxication. He carries the diagnosis of SZ, but has been inconsistent with medications since his Blane's order lapsed. His psychiatrist has been lowering his medication and subsequently he stopped them. He has also been using drugs. Staff at his residence, [facility] did not feel that they could manage him, hence his admission. On arrival to the unit, the individual was somewhat disorganized. He did not think that he needs to be on medications at all, but agreed to take them. He was entirely uncooperaive but in behavioral control. He signed a CV. He was prescribed zyprexa and depakote. He refused to take the latter, but agreed to increasing doses of zyprexa. He gradually settled, became more engaged, and more able to hold a rational conversation. Although at no point was he able to acknowledge the need for medications, he did state that he would take them. He signed a 3 day notice. Because of his condition at that time a petition was filed with the court for a continued stay. 25 year old man who was admitted after referral by [facility]. He presented to the ER with agitation, psychosis and intoxication. He carries the diagnosis of SZ, but has been inconsistent with medications since his Blane's order lapsed. His psychiatrist has been lowering his medication and subsequently he stopped them. He has also been using drugs. Staff at his residence, [facility] did not feel that they could manage him, hence his admission. On arrival to the unit, the individual was somewhat disorganized. He did not th ink that he needs to be on medications at all, but agreed to take them. He was entirely uncooperaive but in behavioral control. coordinated with [facility] and [facility]. Because he had improved significantly, was agreeing to take medications and to follow rules at [facility] a discharge was planned and the petition was dropped. 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 This typewriter assembler furnished a medical certificate to [facility] to further this process. Status at Discharge Functional status at discharge: independent ambulation Overall status at discharge: patient is progressing back to baseline Time Spent with Patient Time attestation: Total time spent providing and/or coordinating discharge services: Time spent: Greater than 30 minutes
== END 2020-10-03 10:45 | disposition home or self-care (01) | DRG 750 ==
LOC: HO.ED 09-11 16:40 → HO.PM5 09-11 16:53
PROVIDERS: Nurse Practitioner Family; Physician Assistant Medical; Admitting Provider Psychiatry & Neurology Psychiatry; Emergency Provider Emergency Medicine; Visit Provider Psychiatry & Neurology Psychiatry
DX: F20.0 Paranoid schizophrenia (principal); R45.851 Suicidal ideations; Z91.14 Patient's other noncompliance with medication regimen; F10.129 Alcohol abuse with intoxication, unspecified; F43.10 Post-traumatic stress disorder, unspecified; F17.210 Nicotine dependence, cigarettes, uncomplicated; Y90.4 Blood alcohol level of 80-99 mg/100 ml; Z20.828 Contact with and (suspected) exposure to other viral communicable diseases; Z71.6 Tobacco abuse counseling; Z79.899 Other long term (current) drug therapy
CPT/HCPCS: 36415; 80053; 80061; 80076; 80307; 80320; 80354; 81003; 82248; 83036; 83695; 83735; 85025; 87635; 99232; 99285; G0480

== ENCOUNTER 2020-10-05 17:30 | Inpatient (IN) | payer OTHER, MEDICAID, SELFPAY ==
[2020-10-05 17:50] VITALS: BP 136/92; PULSE 104; RESP 18; TEMP 37.2; O2SAT 98; BMI 29.4
--- NOTE | 2020-10-05 17:58 | ED.PSYCH ---
HPI - Psych General Chief Complaint: Psychiatric Symptoms Stated Complaint: CRISIS Time Seen by Provider: 10/05/20 19:47 Source: EMS Mode of arrival: EMS Limitations: altered mental status History of Present Illness HPI Narrative: 25-year-old male with schizophrenia presents via EMS with psychosis, medication noncompliance, on section 12. He was discharged from [facility] on 10/03/2020 with plan to return to [facility] residential program. He left the program the day he was discharged from this facility and was hanging around his mother's home. His mother currently has a restraining on him because she is afraid for her safety when he is around her. He is communicating in word [employer], has increased agitation, liability of mood has poor judgment insight. he is not answering any questions at this time, every time he has spoken to rolls his eyes and covers his head with a blanket. MD complaint: suicidal ideation Duration: constant History of same: Yes Context: not taking psychiatric medications Associated psychiatric symptoms: delusions Associated symptoms: denies other symptoms Treatments prior to arrival: placed on mental health hold Related Data Previous Rx's Medication Instructions Recorded olanzapine [Zyprexa] 20 mg PO BEDTIME #30 tab 10/02/20 Allergies Allergy/AdvReac Type Severity Reaction Status Date / Time Penicillins [PCN] Allergy Unknown UNKNOWN Verified 10/05/20 19:44 Review of Systems Review of Systems: Yes Unobtainable due to mental status PMFSH Past Medical History Source: old records reviewed Medical History PTSD (post-traumatic stress disorder) Schizophrenia Social History Social History Household Members: None Housing: Assisted Living Facility Alcohol intake: unknown Smoking Status: Unknown if ever smoked Tobacco Type: Cigarette Packs Per Day: 4 Cigarettes Per Day: 80.0 Years Smoked: 8 Use of substances other than those prescribed or required for medical reasons: Unknown Substance Use Type: Marijuana Advance Directives: No Advance Directives Information Provided: Yes service: No Sexual orientation: Don't Know Physical Exam Vital Signs: Vital Signs: Last Vital Signs Temp 98.9 F 10/05/20 17:59 Pulse 104 H 10/05/20 17:59 Resp 18 10/05/20 17:59 BP 136/92 H 10/05/20 17:59 Pulse Ox 98 10/05/20 17:59 Body Mass Index 29.4 Appearance: Alert. moderate distress. Eyes: Pupils equal, round and reactive to light. ENT: Pharynx normal. Neck: Normal inspection. Neck supple. CVS: Normal heart rate and rhythm. Pulses normal. Respiratory: No respiratory distress. Breath sounds normal. Abdomen: Soft and nontender. Skin: Skin warm and dry. Normal skin color. Normal skin turgor. Extremities: No lower extremity edema. Neuro: No motor deficit. No sensory deficit. Course Course Course Narrative: a 25-year-old male presents with psychosis has a history of schizophrenia. Was discharged from on 10/03/2020, has not taken his meds after he was discharged from this facility, was camping out in his mother's backyard, his mother currently has a restraining order on him. At 1 time in the past he did have a [place] order, 2nd [place] order is pending. Patient is not interested in answering questions, whenever I speak to this patient he rolls his eyes at me and covers his head with a blanket. He presents via EMS with a Section 12. plan of care is for BAL, and care team consult. BHN consult complete at 9:30 p.m.. Plan is for admission. MDM - Psych Differential Diagnosis Differential diagnosis: Likely acute psychosis, suicidal ideation, depression, drug-induced psychotic disorder, mood disorder and schizoaffective disorder Restraints Face to Face Assessment: Face to Face Assessment: Current Situation: After assessment of the patient, a review of the pertinent medical record and a discussion with nursing staff, I feel the patient requires a restrain intervention. Reaction To: [] Medical Condition: [] Behavioral State: [] Continued Need: [] Medical Records Attestation: I reviewed the patient's medical records. Lab Data Attestation: I reviewed the patient's lab results. Labs: Lab Results 10/05/20 10/05/20 Range/Units 21:40 23:42 Ethyl Alcohol < 10 mg/dL COVID-19 (JINNY) Negative (Negative) COVID-19 Clin Com See Note Discharge Plan Discharge Clinical Impression: Schizophrenia Qualifiers: Schizophrenia type: unspecified Qualified Code(s): F20.9 - Schizophrenia, unspecified Patient Disposition: Admitted As Inpatient
[2020-10-05 17:59] VITALS: BP 136/92; PULSE 104; RESP 18; TEMP 37.2; O2SAT 98
--- NOTE | 2020-10-05 18:25 | PC.NURSE ---
SHASHANK faxed and called, verified with Lizbeth
--- NOTE | 2020-10-05 18:55 | PC.NURSE ---
Patient in his bed lying with lights on, appears resting, per report waiting to be seen by BHN, no ETA, care team aware, no distress observed/reported, will continue to monitor.
--- NOTE | 2020-10-05 19:29 | PC.NURSE ---
Care team called and notified they may see the patient if BHN failed to show up in time for evaluation, requested/ordered for UTOX and BAL labs, patient made aware of lab orders, stated he does not have to go at this time, patient agreed to notify staff is he has to use bathroom, denied distress, will continue to monitor.
--- NOTE | 2020-10-05 19:40 | PC.NURSE ---
Patient just got out of room for bathroom use, refused to offer urine sample, verbally inappropriate with staff member, patient seems psychotic, will continue to monitor.
[2020-10-05] MEDS: OLANZapine 10 MG TABLET 20 MG PO (20:16)
--- NOTE | 2020-10-05 20:36 | PC.NURSE ---
Patient compliant with his HS PO medication, will continue to monitor.
--- NOTE | 2020-10-05 21:55 | PC.NURSE ---
Patient compliant with ETOH, pending result, patient in bed lying, no distress reported, will continue to monitor.
[2020-10-05 22:05] LABS: Ethanol < 10 mg/dL
--- NOTE | 2020-10-05 22:28 | PC.NURSE ---
Care team clinician was with patient, patient threaten the clinician by making assaultive posture, patient is grossly psychotic and impulsive, patient was d/c from [facility] on 10/03/20 from [facility], patient disposition is in patient bed search, will continue t monitor.
[2020-10-06 00:06] LABS: COVID-19 Test Negative (Negative)
--- NOTE | 2020-10-06 00:07 | PC.NURSE ---
Care team called, notified, that patient is been accepted
--- NOTE | 2020-10-06 00:08 | PC.NURSE ---
Patient is admitted to [facility], pending process, patient made aware. Patient is in his bed appears sleeping, no distress observed/reported, will continue to monitor.
--- NOTE | 2020-10-06 01:48 | PC.NURSE ---
Patient in bed appears sleeping, no distress observed/reported, respiration +/=/non-labored bilaterally, will continue to monitor.
--- NOTE | 2020-10-06 02:13 | PC.NURSE ---
Care team came to pod to take the patient to [facility] patient refused to sign and refused to go to [facility], [facility] Nurse called/notified to give patient a time to process, patient seems much coherent and cleared, stated He is not a crises patient, please let me go I am sick and tied of being here Patient made aware of the process and asked him give thought and let us know, patient back to bed, will continue to monitor.
--- NOTE | 2020-10-06 03:13 | PC.NURSE ---
Patient in bed appears sleeping, no distress observed/reported, respiration +/=/non-labored bilaterally, will continue to monitor.
--- NOTE | 2020-10-06 05:21 | PC.NURSE ---
Nurse from [facility] came to speak with patient and convince patient to take up to [facility], despite repeated attempt patient refused to go up to [facility]. Patient made aware of the process, was offered option to come up to [facility] at 0700, which patient agreed at this point of time. Patient coherent, still hoping discharge, no distress reported, will continue to monitor,
[2020-10-06 06:49] VITALS: BP 134/44; PULSE 80; RESP 12; TEMP 37.1; O2SAT 97
--- NOTE | 2020-10-06 13:33 | HO.PSYADMNOT ---
HPI Chief Complaint: ACUTE PSYCHOSIS Sources of Information: patient interviewed and chart reviewed HPI Narrative: Pt is a 25 yo male with hx of psychotic illness who presents just a few days after being discharged from in face of medication non-adherence and breaking restraining order against his mother. Pt is a poor historian and not willing to cooperate with interview saying he is staying in bed since he's tired. Pt did not make eye contact with food writer, was soft spoken and mumbled his words; he appeared internally preoccupied. Pt says he feels completely safe on the unit; he denies AVH. Pt earlier signed a CV, however he says he does not understand about the 3 day notice and could not answer what he needed to do if he wants discharge, despite information being explained in several ways; he also said he does not want to be here. Pt was vague about whether he'd take medications. Guerin warning given on 10/06/[address] ordered antipsychotic medications Impression: Pt is a 25 yo male with psychotic disorder and ptsd who presents for admission, days after discharge in face of medication non-compliance and breaking his mothers restraining order. Pt is a poor historian and with limited insight. Pt signed a CV with SW in ED however, food writer rejected CV as patient said he did not want to be here and could not (or would not) express understanding of 3 day notice. He remains on a SECTION 12 DX: Psychotic disorder, unspecified PTSD (by hx) PLAN: admit patient for safety and medication management. PT IS ON SECTION 12 q15 min checks for safety Will start pt on home medication of Zyprexa Past Psychiatric History: Discharged from this past week; discontinued taking meds Multiple hospital stays He had a [facility] order but it has lapsed. Medical Evaluation Reviewed: Yes COUNT INCLUDES THE [facility] Medical History PTSD (post-traumatic stress disorder) Schizophrenia Family History: Unknown Social History: Lives at [facility] [place] [employer] On disability Legal issues in the past Substance History: deferred Trauma History: Significant trauma but details not available. Diagnostics Vital Signs (24Hr): Vital Signs - 24 hr 10/05/20 17:50 10/05/20 17:59 10/06/20 06:49 Temperature 98.9 F 98.9 F 98.7 F Pulse Rate 104 H 104 H 80 Respiratory Rate 18 18 12 Blood Pressure 136/92 H 136/92 H 134/44 L Pulse Oximetry 98 98 97 Body Mass Index 29.4 Labs Labs: Laboratory Results - last 48 hr 10/05/20 10/05/20 21:40 23:42 Ethyl Alcohol < 10 COVID-19 (JINNY) Negative COVID-19 Clin Com See Note Meds/Allergies Meds Home Medications Acetaminophen (Acetaminophen 325 Mg Tablet) 650 mg PO Q6H PRN PRN Reason: Headache/Pain Mild Scale (1-3) Al Hydroxide/Mg Hydroxide (Magnesium Hydrox/Alum Hydrox 30 Ml Oral.Susp) 30 ml PO Q6H PRN PRN Reason: Heartburn/Nausea Diphenhydramine HCl (Diphenhydramine Hcl 25 Mg Tablet) 50 mg PO Q4H PRN PRN Reason: agitation Haloperidol (Haloperidol 5 Mg Tablet) 5 mg PO Q4H PRN PRN Reason: agitation Hydroxyzine HCl (Hydroxyzine Hcl 25 Mg Tablet) 25 mg PO BEDTIME PRN PRN Reason: Anxiety Lorazepam (Lorazepam 1 Mg Tablet) 2 mg PO Q4H PRN PRN Reason: agitation Magnesium Hydroxide (Milk Of Magnesia 30 Ml Oral.Susp) 30 ml PO DAILY PRN PRN Reason: Constipation Nicotine Polacrilex (Nicotine Polacrilex 2 Mg Gum) 4 mg BUCCAL Q2H PRN PRN Reason: Nicotine Cravings Olanzapine (Olanzapine 10 Mg Tablet) 20 mg PO BEDTIME HERON Last Admin: 10/07/20 21:15 Dose: 20 mg Documented by: Trazodone HCl (Trazodone Hcl 50 Mg Tablet) 50 mg PO BEDTIME PRN PRN Reason: Insomnia Allergies Allergies Allergy/AdvReac Type Severity Reaction Status Date / Time Penicillins [PCN] Allergy Unknown UNKNOWN Verified 10/05/20 19:44 Mental Status Exam Mental Status Exam Patient Appearance: Appropriate Patient Orientation: Person and Place Level of Consciousness: Awake Patient Behavior: Guarded, Avoidant, Uncooperative and Poor Eye Contact Mood Description: Suspicious and Blunted Affect Description: Suspicious, Withdrawn and Blunted Ability to Follow Directions: Poor Speech Pattern: Mumbled and Poor Articulation Hallucinations: None (denies) Thought Process: Goal Oriented and Evasive Thought Content: positive for Goal Oriented and positive for Preoccupation Abnormal Motor Activity Signs and Symptoms: Psychomotor Retardation Judgement: Poor Judgement and Insight: impaired Assessment & Plan Reason for continued inpatient stay Substantial Risk for: harm to others and med/psych decompensation
[2020-10-06 18:00] VITALS: BP 101/58; PULSE 75; TEMP 37.2
[2020-10-06] MEDS: OLANZapine 10 MG TABLET 20 MG PO (20:14)
[2020-10-07 06:00] VITALS: BP 120/61; PULSE 78; TEMP 36.9
[2020-10-07 20:43] VITALS: BP 157/87; PULSE 93
[2020-10-07] MEDS: OLANZapine 10 MG TABLET 20 MG PO (21:15)
--- NOTE | 2020-10-07 21:40 | P.PNPSI_ITS ---
Subjective Subjective Date of Service: 10/07/20 Reason For Visit: ACUTE PSYCHOSIS Interim History: Vitals reviewed: HTN Labs reviewed Pt seen, chart reviewed and case discussed with nursing staff Pt does not make eye contact and unwilling to engage with senior mortgage underwriter more than to mumble a yes or no to a some questions, leaving others unanswered. He says he feels fine. Pt took bedtime meds last night, but shrugs shoulders when asked about it. He does not answer question about if he knows why he's here on unit. Sales Floor Associate broached topic of CV to see if patient was willing to sign, but he again did not answer but instead walked away. Staff reports pt is med adherent, social in milue, eating well and safe on the unit without behavioral incident Medication Compliance: Yes Mental Status Exam Mental Status Exam Patient Appearance: Appropriate Patient Orientation: Person Level of Consciousness: Awake and Appropriate Patient Behavior: Resistive to Care, Uncooperative and Poor Eye Contact Mood Description: Withdrawn and Blunted Affect Description: Blunted Ability to Follow Directions: Poor Speech Pattern: Soft-Spoken and Mumbled Thought Process: Goal Oriented Thought Content: positive for Preoccupation Judgement: Poor Judgement and Insight: impaired Diagnostics Vital Signs (24Hr): Vital Signs - 24 hr 10/07/20 06:00 10/07/20 20:43 Temperature 98.4 F Pulse Rate 78 93 Blood Pressure 120/61 157/87 H Body Mass Index 29.4 Labs Labs: Laboratory Results - last 48 hr 10/05/20 10/05/20 21:40 23:42 Ethyl Alcohol < 10 COVID-19 (JINNY) Negative COVID-19 Clin Com See Note Medications Medications Current Medications Generic Name Dose Route Start Last Admin Trade Name Freq PRN Reason Stop Dose Admin Acetaminophen 650 mg 10/06/20 01:53 Acetaminophen 325 Mg Tablet PO Q6H PRN Headache/Pain Mild Scale (1-3) Al Hydroxide/Mg Hydroxide 30 ml 10/06/20 01:53 Magnesium Hydrox/Alum Hydrox 30 Ml Oral.Susp PO Q6H PRN Heartburn/Nausea Diphenhydramine HCl 50 mg 10/06/20 01:53 Diphenhydramine Hcl 25 Mg Tablet PO Q4H PRN agitation Haloperidol 5 mg 10/06/20 01:04 Haloperidol 5 Mg Tablet PO Q4H PRN agitation Hydroxyzine HCl 25 mg 10/06/20 01:53 Hydroxyzine Hcl 25 Mg Tablet PO BEDTIME PRN Anxiety Lorazepam 2 mg 10/06/20 01:53 Lorazepam 1 Mg Tablet PO Q4H PRN agitation Magnesium Hydroxide 30 ml 10/06/20 01:53 Milk Of Magnesia 30 Ml Oral.Susp PO DAILY PRN Constipation Nicotine Polacrilex 4 mg 10/06/20 01:53 Nicotine Polacrilex 2 Mg Gum BUCCAL Q2H PRN Nicotine Cravings Olanzapine 20 mg 10/05/20 21:00 10/07/20 21:15 Olanzapine 10 Mg Tablet PO 20 mg BEDTIME HERON Administration Trazodone HCl 50 mg 10/06/20 01:53 Trazodone Hcl 50 Mg Tablet PO BEDTIME PRN Insomnia Allergies Allergies Allergy/AdvReac Type Severity Reaction Status Date / Time Penicillins [PCN] Allergy Unknown UNKNOWN Verified 10/05/20 19:44 Assessment & Plan Pt with hx of psychotic disorder PT IS CURRENTLY ON SECTION 12 Pt unwilling to engage with senior mortgage underwriter; mostly isolative on unit. However, he is currently taking his medication. Continue with current tx plan
[2020-10-08 06:50] VITALS: RESP 18
--- NOTE | 2020-10-08 09:08 | P.PNPSI_ITS ---
Subjective Subjective Date of Service: 10/08/20 Reason For Visit: ACUTE PSYCHOSIS Subjective Notes: Section 12B Interim History: Pt does not make eye contact and unwilling to engage with magnetic tape typewriter operator. He was not able to engage with this magnetic tape typewriter operator regarding precipitants to re- admission. He walked away. Oracle Adf Developer broached the topic of CV to see if patient was willing to sign, but he again did not answer but instead walked away, saying he would not sign anything new. He was in behavioral control Medication Compliance: Yes Side effects from medications: Yes Review of Systems Acute medical concerns: No Medical Review of Systems: unchanged Mental Status Exam Mental Status Exam Patient Appearance: Disheveled and Appropriate Patient Orientation: Person Level of Consciousness: Awake and Lethargic Patient Behavior: Resistive to Care, Uncooperative and Poor Eye Contact Mood Description: Withdrawn and Blunted Affect Description: Blunted Ability to Follow Directions: Poor Speech Pattern: Soft-Spoken and Mumbled Memory Description: Intact Hallucinations: None Delusions: Paranoid Ideation, Present and Ideas of Reference Thought Process: Goal Oriented Thought Content: positive for Preoccupation, negative for Suicidal Ideation and negative for Homicidal Ideation Judgement: Poor Judgement and Insight: impaired Diagnostics Vital Signs (24Hr): Vital Signs - 24 hr 10/07/20 20:43 10/08/20 06:50 Pulse Rate 93 Respiratory Rate 18 Blood Pressure 157/87 H Body Mass Index 29.4 Medications Medications Current Medications Generic Name Dose Route Start Last Admin Trade Name Freq PRN Reason Stop Dose Admin Acetaminophen 650 mg 10/06/20 01:53 Acetaminophen 325 Mg Tablet PO Q6H PRN Headache/Pain Mild Scale (1-3) Al Hydroxide/Mg Hydroxide 30 ml 10/06/20 01:53 Magnesium Hydrox/Alum Hydrox 30 Ml Oral.Susp PO Q6H PRN Heartburn/Nausea Diphenhydramine HCl 50 mg 10/06/20 01:53 Diphenhydramine Hcl 25 Mg Tablet PO Q4H PRN agitation Haloperidol 5 mg 10/06/20 01:04 Haloperidol 5 Mg Tablet PO Q4H PRN agitation Hydroxyzine HCl 25 mg 10/06/20 01:53 Hydroxyzine Hcl 25 Mg Tablet PO BEDTIME PRN Anxiety Lorazepam 2 mg 10/06/20 01:53 Lorazepam 1 Mg Tablet PO Q4H PRN agitation Magnesium Hydroxide 30 ml 10/06/20 01:53 Milk Of Magnesia 30 Ml Oral.Susp PO DAILY PRN Constipation Nicotine Polacrilex 4 mg 10/06/20 01:53 Nicotine Polacrilex 2 Mg Gum BUCCAL Q2H PRN Nicotine Cravings Olanzapine 20 mg 10/05/20 21:00 10/07/20 21:15 Olanzapine 10 Mg Tablet PO 20 mg BEDTIME HERON Administration Trazodone HCl 50 mg 10/06/20 01:53 Trazodone Hcl 50 Mg Tablet PO BEDTIME PRN Insomnia Allergies Allergies Allergy/AdvReac Type Severity Reaction Status Date / Time Penicillins [PCN] Allergy Unknown UNKNOWN Verified 10/05/20 19:44 Assessment & Plan Assessment & Plan (1) Schizoaffective disorder: Status: Acute Code(s): F25.9 - Schizoaffective disorder, unspecified Assessment and Plan: CT zyprexa Collateral contact with CHD Greater than 50% of the session was spent on counseling and/or coordination of care Patient educated on: diagnosis, medication risk/benefits and substance abuse Informed Consent: does not understand Reason for contiued inpatient stay Substantial Risk for: rapid decompensation
[2020-10-08 16:31] VITALS: BP 136/68; PULSE 77; TEMP 37.1
[2020-10-08] MEDS: OLANZapine 10 MG TABLET 20 MG PO (20:46)
[2020-10-09 06:25] VITALS: RESP 16
--- NOTE | 2020-10-09 09:20 | HO.PSYCHPN ---
Subjective Subjective Date of Service: 10/09/20 Reason For Visit: ACUTE PSYCHOSIS Subjective Notes: Conditional Voluntary Interim History: Pt does not make eye contact and unwilling to engage with inspector automatic typewriter. He has been keeping to himself. He has been in behavioral control. Medication Compliance: Yes Side effects from medications: Yes Attending Groups: Intermittent Review of Systems Acute medical concerns: No Medical Review of Systems: unchanged Mental Status Exam Mental Status Exam Patient Appearance: Disheveled and Appropriate Patient Orientation: Person Level of Consciousness: Awake and Lethargic Patient Behavior: Resistive to Care, Uncooperative and Poor Eye Contact Mood Description: Withdrawn and Blunted Affect Description: Blunted Ability to Follow Directions: Poor Speech Pattern: Soft-Spoken and Mumbled Memory Description: Intact Hallucinations: None Delusions: Paranoid Ideation, Present and Ideas of Reference Thought Process: Goal Oriented Thought Content: positive for Preoccupation, negative for Suicidal Ideation and negative for Homicidal Ideation Judgement: Poor Judgement and Insight: impaired Diagnostics Vital Signs (24Hr): Vital Signs - 24 hr 10/08/20 16:31 10/09/20 06:25 Temperature 98.8 F Pulse Rate 77 Respiratory Rate 16 Blood Pressure 136/68 Body Mass Index 29.4 Medications Medications Current Medications Generic Name Dose Route Start Last Admin Trade Name Freq PRN Reason Stop Dose Admin Acetaminophen 650 mg 10/06/20 01:53 Acetaminophen 325 Mg Tablet PO Q6H PRN Headache/Pain Mild Scale (1-3) Al Hydroxide/Mg Hydroxide 30 ml 10/06/20 01:53 Magnesium Hydrox/Alum Hydrox 30 Ml Oral.Susp PO Q6H PRN Heartburn/Nausea Diphenhydramine HCl 50 mg 10/06/20 01:53 Diphenhydramine Hcl 25 Mg Tablet PO Q4H PRN agitation Haloperidol 5 mg 10/06/20 01:04 Haloperidol 5 Mg Tablet PO Q4H PRN agitation Hydroxyzine HCl 25 mg 10/06/20 01:53 Hydroxyzine Hcl 25 Mg Tablet PO BEDTIME PRN Anxiety Lorazepam 2 mg 10/06/20 01:53 Lorazepam 1 Mg Tablet PO Q4H PRN agitation Magnesium Hydroxide 30 ml 10/06/20 01:53 Milk Of Magnesia 30 Ml Oral.Susp PO DAILY PRN Constipation Nicotine Polacrilex 4 mg 10/06/20 01:53 Nicotine Polacrilex 2 Mg Gum BUCCAL Q2H PRN Nicotine Cravings Olanzapine 20 mg 10/05/20 21:00 10/08/20 20:46 Olanzapine 10 Mg Tablet PO 20 mg BEDTIME HERON Administration Trazodone HCl 50 mg 10/06/20 01:53 Trazodone Hcl 50 Mg Tablet PO BEDTIME PRN Insomnia Allergies Allergies Allergy/AdvReac Type Severity Reaction Status Date / Time Penicillins [PCN] Allergy Unknown UNKNOWN Verified 10/05/20 19:44 Assessment & Plan Assessment & Plan (1) Schizoaffective disorder: Status: Acute Code(s): F25.9 - Schizoaffective disorder, unspecified Assessment and Plan: Continue zyprexa Liase with [facility] and CHD Greater than 50% of the session was spent on counseling and/or coordination of care Patient educated on: diagnosis, medication risk/benefits and substance abuse Informed Consent: does not understand Reason for contiued inpatient stay Substantial Risk for: inability to function and rapid decompensation
--- NOTE | 2020-10-09 16:08 | PC.NURSE ---
Addendum entered by Michael Turk RN 10/09/20 16:10: on 10/09/20 approx [id number] Original Note: Freedom Schwartz signed a conditional voluntary today
[2020-10-09 18:00] VITALS: BP 121/86; PULSE 75; TEMP 36.8
[2020-10-09] MEDS: OLANZapine 10 MG TABLET 20 MG PO (20:42)
[2020-10-10 18:00] VITALS: BP 138/76; PULSE 72; TEMP 36.8
--- NOTE | 2020-10-10 20:01 | HO.PSYCHPN ---
Subjective Subjective Date of Service: 10/10/20 Reason For Visit: ACUTE PSYCHOSIS Subjective Notes: Conditional Voluntary Interim History: Freedom has been wandering the halls and is somewhat vague in his interactions with staff. He has been in behavioral control. Medication Compliance: Yes Side effects from medications: No Attending Groups: Intermittent Review of Systems Acute medical concerns: No Medical Review of Systems: unchanged Mental Status Exam Mental Status Exam Patient Appearance: Disheveled and Appropriate Patient Orientation: Person Level of Consciousness: Awake and Lethargic Patient Behavior: Resistive to Care, Uncooperative and Poor Eye Contact Mood Description: Withdrawn and Blunted Affect Description: Blunted Ability to Follow Directions: Poor Speech Pattern: Soft-Spoken and Mumbled Memory Description: Intact Hallucinations: None Delusions: Paranoid Ideation, Present and Ideas of Reference Thought Process: Goal Oriented Thought Content: positive for Preoccupation, negative for Suicidal Ideation and negative for Homicidal Ideation Judgement: Poor Judgement and Insight: impaired Diagnostics Vital Signs (24Hr): Body Mass Index 29.4 Medications Medications Current Medications Generic Name Dose Route Start Last Admin Trade Name Freq PRN Reason Stop Dose Admin Acetaminophen 650 mg 10/06/20 01:53 Acetaminophen 325 Mg Tablet PO Q6H PRN Headache/Pain Mild Scale (1-3) Al Hydroxide/Mg Hydroxide 30 ml 10/06/20 01:53 Magnesium Hydrox/Alum Hydrox 30 Ml Oral.Susp PO Q6H PRN Heartburn/Nausea Diphenhydramine HCl 50 mg 10/06/20 01:53 Diphenhydramine Hcl 25 Mg Tablet PO Q4H PRN agitation Haloperidol 5 mg 10/06/20 01:04 Haloperidol 5 Mg Tablet PO Q4H PRN agitation Hydroxyzine HCl 25 mg 10/06/20 01:53 Hydroxyzine Hcl 25 Mg Tablet PO BEDTIME PRN Anxiety Lorazepam 2 mg 10/06/20 01:53 Lorazepam 1 Mg Tablet PO Q4H PRN agitation Magnesium Hydroxide 30 ml 10/06/20 01:53 Milk Of Magnesia 30 Ml Oral.Susp PO DAILY PRN Constipation Nicotine Polacrilex 4 mg 10/06/20 01:53 Nicotine Polacrilex 2 Mg Gum BUCCAL Q2H PRN Nicotine Cravings Olanzapine 20 mg 10/05/20 21:00 10/09/20 20:42 Olanzapine 10 Mg Tablet PO 20 mg BEDTIME HERON Administration Trazodone HCl 50 mg 10/06/20 01:53 Trazodone Hcl 50 Mg Tablet PO BEDTIME PRN Insomnia Allergies Allergies Allergy/AdvReac Type Severity Reaction Status Date / Time Penicillins [PCN] Allergy Unknown UNKNOWN Verified 10/05/20 19:44 Assessment & Plan Assessment & Plan (1) Schizoaffective disorder: Status: Acute Code(s): F25.9 - Schizoaffective disorder, unspecified Assessment and Plan: CT current treatment plan Greater than 50% of the session was spent on counseling and/or coordination of care Patient educated on: diagnosis and medication risk/benefits Informed Consent: does not understand Reason for contiued inpatient stay Substantial Risk for: rapid decompensation
[2020-10-10] MEDS: OLANZapine 10 MG TABLET 20 MG PO (20:06)
[2020-10-10] MEDS: Acetaminophen 325 MG TABLET 650 MG PO (20:26)
[2020-10-11 07:00] VITALS: BMI 27.1
--- NOTE | 2020-10-11 14:03 | HO.PSYCHPN ---
Subjective Subjective Date of Service: 10/11/20 Reason For Visit: ACUTE PSYCHOSIS Subjective Notes: Conditional Voluntary Interim History: Freedom has been much the same. He has been in behavioral control. Medication Compliance: Yes Side effects from medications: No Attending Groups: Intermittent Review of Systems Acute medical concerns: No Medical Review of Systems: unchanged Mental Status Exam Mental Status Exam Patient Appearance: Disheveled and Appropriate Patient Orientation: Person Level of Consciousness: Awake and Lethargic Patient Behavior: Appropriate and Poor Eye Contact Mood Description: Withdrawn and Blunted Affect Description: Blunted Ability to Follow Directions: Poor Speech Pattern: Soft-Spoken and Mumbled Memory Description: Intact Hallucinations: None Delusions: Paranoid Ideation, Present and Ideas of Reference Thought Process: Goal Oriented Thought Content: positive for Preoccupation, negative for Suicidal Ideation and negative for Homicidal Ideation Judgement: Poor Judgement and Insight: impaired Diagnostics Vital Signs (24Hr): Vital Signs - 24 hr 10/10/20 18:00 Temperature 98.2 F Pulse Rate 72 Blood Pressure 138/76 Body Mass Index 27.1 Medications Medications Current Medications Generic Name Dose Route Start Last Admin Trade Name Freq PRN Reason Stop Dose Admin Acetaminophen 650 mg 10/06/20 01:53 10/10/20 20:26 Acetaminophen 325 Mg Tablet PO 650 mg Q6H PRN Administration Headache/Pain Mild Scale (1-3) Al Hydroxide/Mg Hydroxide 30 ml 10/06/20 01:53 Magnesium Hydrox/Alum Hydrox 30 Ml Oral.Susp PO Q6H PRN Heartburn/Nausea Diphenhydramine HCl 50 mg 10/06/20 01:53 Diphenhydramine Hcl 25 Mg Tablet PO Q4H PRN agitation Haloperidol 5 mg 10/06/20 01:04 Haloperidol 5 Mg Tablet PO Q4H PRN agitation Hydroxyzine HCl 25 mg 10/06/20 01:53 Hydroxyzine Hcl 25 Mg Tablet PO BEDTIME PRN Anxiety Ibuprofen 600 mg 10/11/20 10:02 Ibuprofen 600 Mg Tablet PO Q6H PRN Pain, Moderate (Pain Scale 4-6 Lorazepam 1 mg 10/11/20 08:36 Lorazepam 1 Mg Tablet PO Q4H PRN Anxiety Magnesium Hydroxide 30 ml 10/06/20 01:53 Milk Of Magnesia 30 Ml Oral.Susp PO DAILY PRN Constipation Nicotine Polacrilex 4 mg 10/06/20 01:53 Nicotine Polacrilex 2 Mg Gum BUCCAL Q2H PRN Nicotine Cravings Olanzapine 20 mg 10/05/20 21:00 10/10/20 20:06 Olanzapine 10 Mg Tablet PO 20 mg BEDTIME HERON Administration Trazodone HCl 50 mg 10/06/20 01:53 Trazodone Hcl 50 Mg Tablet PO BEDTIME PRN Insomnia Allergies Allergies Allergy/AdvReac Type Severity Reaction Status Date / Time Penicillins [PCN] Allergy Unknown UNKNOWN Verified 10/05/20 19:44 Assessment & Plan Assessment & Plan (1) Schizoaffective disorder: Status: Acute Code(s): F25.9 - Schizoaffective disorder, unspecified Assessment and Plan: CT current treatment plan Greater than 50% of the session was spent on counseling and/or coordination of care Patient educated on: diagnosis, medication risk/benefits and substance abuse Informed Consent: further education needed Reason for contiued inpatient stay Substantial Risk for: rapid decompensation
[2020-10-11] MEDS: Ibuprofen 600 MG TABLET PO (16:04)
[2020-10-11 18:00] VITALS: BP 143/80; PULSE 69; TEMP 36.8; O2SAT 97
[2020-10-11] MEDS: Acetaminophen 325 MG TABLET 650 MG PO (20:58)
[2020-10-11] MEDS: OLANZapine 10 MG TABLET 20 MG PO (20:58)
[2020-10-12] MEDS: Nicotine Polacrilex 2 MG GUM 4 MG BUCCAL (11:40)
--- NOTE | 2020-10-12 15:46 | HO.PSYCHPN ---
Subjective Subjective Date of Service: 10/12/20 Reason For Visit: ACUTE PSYCHOSIS Subjective Notes: Conditional Voluntary Interim History: Lon is in good behavioral control. He tends to be dismissive. Medication Compliance: Yes Side effects from medications: No Attending Groups: No Review of Systems Acute medical concerns: No Medical Review of Systems: unchanged Mental Status Exam Mental Status Exam Patient Appearance: Disheveled and Appropriate Patient Orientation: Person Level of Consciousness: Awake and Lethargic Patient Behavior: Appropriate and Poor Eye Contact Mood Description: Withdrawn and Blunted Affect Description: Blunted Ability to Follow Directions: Poor Speech Pattern: Soft-Spoken and Mumbled Memory Description: Intact Hallucinations: None Delusions: Paranoid Ideation, Present and Ideas of Reference Thought Process: Goal Oriented Thought Content: positive for Preoccupation, negative for Suicidal Ideation and negative for Homicidal Ideation Judgement: Poor Judgement and Insight: impaired Diagnostics Vital Signs (24Hr): Vital Signs - 24 hr 10/11/20 18:00 Temperature 98.2 F Pulse Rate 69 Blood Pressure 143/80 H Pulse Oximetry 97 Body Mass Index 27.1 Medications Medications Current Medications Generic Name Dose Route Start Last Admin Trade Name Freq PRN Reason Stop Dose Admin Acetaminophen 650 mg 10/06/20 01:53 10/11/20 20:58 Acetaminophen 325 Mg Tablet PO 650 mg Q6H PRN Administration Headache/Pain Mild Scale (1-3) Al Hydroxide/Mg Hydroxide 30 ml 10/06/20 01:53 Magnesium Hydrox/Alum Hydrox 30 Ml Oral.Susp PO Q6H PRN Heartburn/Nausea Diphenhydramine HCl 50 mg 10/06/20 01:53 Diphenhydramine Hcl 25 Mg Tablet PO Q4H PRN agitation Haloperidol 5 mg 10/06/20 01:04 Haloperidol 5 Mg Tablet PO Q4H PRN agitation Hydroxyzine HCl 25 mg 10/06/20 01:53 Hydroxyzine Hcl 25 Mg Tablet PO BEDTIME PRN Anxiety Ibuprofen 600 mg 10/11/20 10:02 10/11/20 16:04 Ibuprofen 600 Mg Tablet PO 600 mg Q6H PRN Administration Pain, Moderate (Pain Scale 4-6 Lorazepam 1 mg 10/11/20 08:36 Lorazepam 1 Mg Tablet PO Q4H PRN Anxiety Magnesium Hydroxide 30 ml 10/06/20 01:53 Milk Of Magnesia 30 Ml Oral.Susp PO DAILY PRN Constipation Nicotine Polacrilex 4 mg 10/06/20 01:53 10/12/20 11:40 Nicotine Polacrilex 2 Mg Gum BUCCAL 4 mg Q2H PRN Administration Nicotine Cravings Olanzapine 20 mg 10/05/20 21:00 10/11/20 20:58 Olanzapine 10 Mg Tablet PO 20 mg BEDTIME HERON Administration Trazodone HCl 50 mg 10/06/20 01:53 Trazodone Hcl 50 Mg Tablet PO BEDTIME PRN Insomnia Allergies Allergies Allergy/AdvReac Type Severity Reaction Status Date / Time Penicillins [PCN] Allergy Unknown UNKNOWN Verified 10/05/20 19:44 Assessment & Plan Assessment & Plan (1) Schizoaffective disorder: Status: Acute Code(s): F25.9 - Schizoaffective disorder, unspecified Assessment and Plan: CT current plan Greater than 50% of the session was spent on counseling and/or coordination of care Patient educated on: diagnosis and medication risk/benefits Informed Consent: further education needed Reason for contiued inpatient stay Substantial Risk for: inability to function and rapid decompensation
[2020-10-12] MEDS: OLANZapine 10 MG TABLET 20 MG PO (20:33)
--- NOTE | 2020-10-13 13:26 | HO.PSYCHPN ---
Subjective Subjective Date of Service: 10/13/20 Reason For Visit: ACUTE PSYCHOSIS Subjective Notes: Conditional Voluntary Interim History: Lon is unchanged. He is in behavioral control Medication Compliance: Yes Side effects from medications: No Attending Groups: No Review of Systems Acute medical concerns: No Medical Review of Systems: unchanged Mental Status Exam Mental Status Exam Patient Appearance: Disheveled and Appropriate Patient Orientation: Person Level of Consciousness: Awake and Lethargic Patient Behavior: Appropriate and Poor Eye Contact Mood Description: Withdrawn and Blunted Affect Description: Blunted Ability to Follow Directions: Poor Speech Pattern: Soft-Spoken and Mumbled Memory Description: Intact Hallucinations: None Delusions: Paranoid Ideation, Present and Ideas of Reference Thought Process: Goal Oriented Thought Content: positive for Preoccupation, negative for Suicidal Ideation and negative for Homicidal Ideation Judgement: Poor Judgement and Insight: impaired Diagnostics Vital Signs (24Hr): Body Mass Index 27.1 Medications Medications Current Medications Generic Name Dose Route Start Last Admin Trade Name Freq PRN Reason Stop Dose Admin Acetaminophen 650 mg 10/06/20 01:53 10/11/20 20:58 Acetaminophen 325 Mg Tablet PO 650 mg Q6H PRN Administration Headache/Pain Mild Scale (1-3) Al Hydroxide/Mg Hydroxide 30 ml 10/06/20 01:53 Magnesium Hydrox/Alum Hydrox 30 Ml Oral.Susp PO Q6H PRN Heartburn/Nausea Diphenhydramine HCl 50 mg 10/06/20 01:53 Diphenhydramine Hcl 25 Mg Tablet PO Q4H PRN agitation Haloperidol 5 mg 10/06/20 01:04 Haloperidol 5 Mg Tablet PO Q4H PRN agitation Hydroxyzine HCl 25 mg 10/06/20 01:53 Hydroxyzine Hcl 25 Mg Tablet PO BEDTIME PRN Anxiety Ibuprofen 600 mg 10/11/20 10:02 10/11/20 16:04 Ibuprofen 600 Mg Tablet PO 600 mg Q6H PRN Administration Pain, Moderate (Pain Scale 4-6 Lorazepam 1 mg 10/11/20 08:36 Lorazepam 1 Mg Tablet PO Q4H PRN Anxiety Magnesium Hydroxide 30 ml 10/06/20 01:53 Milk Of Magnesia 30 Ml Oral.Susp PO DAILY PRN Constipation Nicotine Polacrilex 4 mg 10/06/20 01:53 10/12/20 11:40 Nicotine Polacrilex 2 Mg Gum BUCCAL 4 mg Q2H PRN Administration Nicotine Cravings Olanzapine 20 mg 10/05/20 21:00 10/12/20 20:33 Olanzapine 10 Mg Tablet PO 20 mg BEDTIME HERON Administration Trazodone HCl 50 mg 10/06/20 01:53 Trazodone Hcl 50 Mg Tablet PO BEDTIME PRN Insomnia Allergies Allergies Allergy/AdvReac Type Severity Reaction Status Date / Time Penicillins [PCN] Allergy Unknown UNKNOWN Verified 10/05/20 19:44 Assessment & Plan Assessment & Plan (1) Schizoaffective disorder: Status: Acute Code(s): F25.9 - Schizoaffective disorder, unspecified Assessment and Plan: CT current treatment plan Greater than 50% of the session was spent on counseling and/or coordination of care Patient educated on: diagnosis, medication risk/benefits and substance abuse Informed Consent: does not understand Reason for contiued inpatient stay Substantial Risk for: rapid decompensation
[2020-10-13 18:00] VITALS: BP 134/74; PULSE 71; TEMP 36.3
[2020-10-13] MEDS: OLANZapine 10 MG TABLET 20 MG PO (22:33)
[2020-10-13] MEDS: Ibuprofen 600 MG TABLET PO (22:38)
--- NOTE | 2020-10-14 13:46 | HO.PSYCHPN ---
Subjective Subjective Date of Service: 10/14/20 Reason For Visit: ACUTE PSYCHOSIS Subjective Notes: Conditional Voluntary Interim History: Lon has been managing much the same. He has no immediate concerns Medication Compliance: Yes Side effects from medications: No Attending Groups: Yes Review of Systems Acute medical concerns: No Medical Review of Systems: unchanged Mental Status Exam Mental Status Exam Patient Appearance: Disheveled and Appropriate Patient Orientation: Person Level of Consciousness: Awake and Lethargic Patient Behavior: Appropriate and Poor Eye Contact Mood Description: Withdrawn and Blunted Affect Description: Blunted Ability to Follow Directions: Poor Speech Pattern: Soft-Spoken and Mumbled Memory Description: Intact Hallucinations: None Delusions: Paranoid Ideation, Present and Ideas of Reference Thought Process: Goal Oriented Thought Content: positive for Preoccupation, negative for Suicidal Ideation and negative for Homicidal Ideation Judgement: Poor Judgement and Insight: impaired Diagnostics Vital Signs (24Hr): Vital Signs - 24 hr 10/13/20 18:00 Temperature 97.3 F Pulse Rate 71 Blood Pressure 134/74 Body Mass Index 27.1 Medications Medications Current Medications Generic Name Dose Route Start Last Admin Trade Name Gilbertq PRN Reason Stop Dose Admin Acetaminophen 650 mg 10/06/20 01:53 10/11/20 20:58 Acetaminophen 325 Mg Tablet PO 650 mg Q6H PRN Administration Headache/Pain Mild Scale (1-3) Al Hydroxide/Mg Hydroxide 30 ml 10/06/20 01:53 Magnesium Hydrox/Alum Hydrox 30 Ml Oral.Susp PO Q6H PRN Heartburn/Nausea Diphenhydramine HCl 50 mg 10/06/20 01:53 Diphenhydramine Hcl 25 Mg Tablet PO Q4H PRN agitation Haloperidol 5 mg 10/06/20 01:04 Haloperidol 5 Mg Tablet PO Q4H PRN agitation Hydroxyzine HCl 25 mg 10/06/20 01:53 Hydroxyzine Hcl 25 Mg Tablet PO BEDTIME PRN Anxiety Ibuprofen 600 mg 10/11/20 10:02 10/13/20 22:38 Ibuprofen 600 Mg Tablet PO 600 mg Q6H PRN Administration Pain, Moderate (Pain Scale 4-6 Lorazepam 1 mg 10/11/20 08:36 Lorazepam 1 Mg Tablet PO Q4H PRN Anxiety Magnesium Hydroxide 30 ml 10/06/20 01:53 Milk Of Magnesia 30 Ml Oral.Susp PO DAILY PRN Constipation Nicotine Polacrilex 4 mg 10/06/20 01:53 10/12/20 11:40 Nicotine Polacrilex 2 Mg Gum BUCCAL 4 mg Q2H PRN Administration Nicotine Cravings Olanzapine 20 mg 10/05/20 21:00 10/13/20 22:33 Olanzapine 10 Mg Tablet PO 20 mg BEDTIME HERON Administration Trazodone HCl 50 mg 10/06/20 01:53 Trazodone Hcl 50 Mg Tablet PO BEDTIME PRN Insomnia Allergies Allergies Allergy/AdvReac Type Severity Reaction Status Date / Time Penicillins [PCN] Allergy Unknown UNKNOWN Verified 10/05/20 19:44 Assessment & Plan Assessment & Plan (1) Schizoaffective disorder: Status: Acute Code(s): F25.9 - Schizoaffective disorder, unspecified Assessment and Plan: CT current treatment plan Greater than 50% of the session was spent on counseling and/or coordination of care Patient educated on: diagnosis, medication risk/benefits and substance abuse Informed Consent: further education needed Reason for contiued inpatient stay Substantial Risk for: rapid decompensation
[2020-10-14] MEDS: LORazepam 1 MG TABLET PO (17:03)
[2020-10-14] MEDS: Nicotine Polacrilex 2 MG GUM 4 MG BUCCAL (17:03)
[2020-10-14 18:35] VITALS: BP 139/82; PULSE 85; TEMP 37.1
[2020-10-14] MEDS: OLANZapine 10 MG TABLET 20 MG PO (20:29)
--- NOTE | 2020-10-15 09:30 | HO.PSYCHPN ---
Subjective Subjective Date of Service: 10/15/20 Reason For Visit: ACUTE PSYCHOSIS Subjective Notes: Conditional Voluntary Interim History: Lon is much the same. He is somewhat odd in his statements but he is in good behavioral control. Medication Compliance: Yes Side effects from medications: No Attending Groups: Intermittent Review of Systems Acute medical concerns: No Medical Review of Systems: unchanged Mental Status Exam Mental Status Exam Patient Appearance: Disheveled and Appropriate Patient Orientation: Person Level of Consciousness: Awake and Lethargic Patient Behavior: Appropriate and Poor Eye Contact Mood Description: Withdrawn and Blunted Affect Description: Blunted Ability to Follow Directions: Poor Speech Pattern: Soft-Spoken and Mumbled Memory Description: Intact Hallucinations: None Delusions: Paranoid Ideation, Present and Ideas of Reference Thought Process: Goal Oriented Thought Content: positive for Preoccupation, negative for Suicidal Ideation and negative for Homicidal Ideation Judgement: Poor Judgement and Insight: impaired Diagnostics Vital Signs (24Hr): Vital Signs - 24 hr 10/14/20 18:35 Temperature 98.8 F Pulse Rate 85 Blood Pressure 139/82 Body Mass Index 27.1 Medications Medications Current Medications Generic Name Dose Route Start Last Admin Trade Name Freq PRN Reason Stop Dose Admin Acetaminophen 650 mg 10/06/20 01:53 10/11/20 20:58 Acetaminophen 325 Mg Tablet PO 650 mg Q6H PRN Administration Headache/Pain Mild Scale (1-3) Al Hydroxide/Mg Hydroxide 30 ml 10/06/20 01:53 Magnesium Hydrox/Alum Hydrox 30 Ml Oral.Susp PO Q6H PRN Heartburn/Nausea Diphenhydramine HCl 50 mg 10/06/20 01:53 Diphenhydramine Hcl 25 Mg Tablet PO Q4H PRN agitation Haloperidol 5 mg 10/06/20 01:04 Haloperidol 5 Mg Tablet PO Q4H PRN agitation Hydroxyzine HCl 25 mg 10/06/20 01:53 Hydroxyzine Hcl 25 Mg Tablet PO BEDTIME PRN Anxiety Ibuprofen 600 mg 10/11/20 10:02 10/13/20 22:38 Ibuprofen 600 Mg Tablet PO 600 mg Q6H PRN Administration Pain, Moderate (Pain Scale 4-6 Lorazepam 1 mg 10/11/20 08:36 10/14/20 17:03 Lorazepam 1 Mg Tablet PO 1 mg Q4H PRN Administration Anxiety Magnesium Hydroxide 30 ml 10/06/20 01:53 Milk Of Magnesia 30 Ml Oral.Susp PO DAILY PRN Constipation Nicotine Polacrilex 4 mg 10/06/20 01:53 10/14/20 17:03 Nicotine Polacrilex 2 Mg Gum BUCCAL 4 mg Q2H PRN Administration Nicotine Cravings Olanzapine 20 mg 10/05/20 21:00 10/14/20 20:29 Olanzapine 10 Mg Tablet PO 20 mg BEDTIME HERON Administration Trazodone HCl 50 mg 10/06/20 01:53 Trazodone Hcl 50 Mg Tablet PO BEDTIME PRN Insomnia Allergies Allergies Allergy/AdvReac Type Severity Reaction Status Date / Time Penicillins [PCN] Allergy Unknown UNKNOWN Verified 10/05/20 19:44 Assessment & Plan Assessment & Plan (1) Schizoaffective disorder: Status: Acute Code(s): F25.9 - Schizoaffective disorder, unspecified Assessment and Plan: CT current plan Greater than 50% of the session was spent on counseling and/or coordination of care Patient educated on: diagnosis, medication risk/benefits and substance abuse Informed Consent: further education needed Reason for contiued inpatient stay Substantial Risk for: rapid decompensation
[2020-10-15] MEDS: Nicotine Polacrilex 2 MG GUM 4 MG BUCCAL (16:40)
[2020-10-15 18:00] VITALS: BP 135/65; PULSE 72; TEMP 37
[2020-10-15] MEDS: LORazepam 1 MG TABLET PO (20:14)
[2020-10-15] MEDS: OLANZapine 10 MG TABLET 20 MG PO (20:14)
[2020-10-16] MEDS: Nicotine Polacrilex 2 MG GUM 4 MG BUCCAL (12:24)
--- NOTE | 2020-10-16 15:26 | HO.PSYCHPN ---
Subjective Subjective Date of Service: 10/16/20 Reason For Visit: ACUTE PSYCHOSIS Subjective Notes: Conditional Voluntary Interim History: Lon was much clearer in his presentation. He was able to speak about his interest in science and chemistry. He also spoke about how he struggles to follow rules. Medication Compliance: Yes Side effects from medications: No Attending Groups: Yes Review of Systems Acute medical concerns: No Medical Review of Systems: unchanged Mental Status Exam Mental Status Exam Patient Appearance: Well Grooomed and Appropriate Patient Orientation: Person Level of Consciousness: Awake Patient Behavior: Appropriate and Poor Eye Contact Mood Description: Calm and Blunted Affect Description: Calm and Blunted Ability to Follow Directions: Poor Speech Pattern: Soft-Spoken and Mumbled Memory Description: Intact Hallucinations: None Delusions: Paranoid Ideation, Present and Ideas of Reference Thought Process: Goal Oriented Thought Content: positive for Preoccupation, negative for Suicidal Ideation and negative for Homicidal Ideation Judgement: Poor Judgement and Insight: impaired Diagnostics Vital Signs (24Hr): Vital Signs - 24 hr 10/15/20 18:00 Temperature 98.6 F Pulse Rate 72 Blood Pressure 135/65 Body Mass Index 27.1 Medications Medications Current Medications Generic Name Dose Route Start Last Admin Trade Name Freq PRN Reason Stop Dose Admin Acetaminophen 650 mg 10/06/20 01:53 10/11/20 20:58 Acetaminophen 325 Mg Tablet PO 650 mg Q6H PRN Administration Headache/Pain Mild Scale (1-3) Al Hydroxide/Mg Hydroxide 30 ml 10/06/20 01:53 Magnesium Hydrox/Alum Hydrox 30 Ml Oral.Susp PO Q6H PRN Heartburn/Nausea Diphenhydramine HCl 50 mg 10/06/20 01:53 Diphenhydramine Hcl 25 Mg Tablet PO Q4H PRN agitation Haloperidol 5 mg 10/06/20 01:04 Haloperidol 5 Mg Tablet PO Q4H PRN agitation Hydroxyzine HCl 25 mg 10/06/20 01:53 Hydroxyzine Hcl 25 Mg Tablet PO BEDTIME PRN Anxiety Ibuprofen 600 mg 10/11/20 10:02 10/13/20 22:38 Ibuprofen 600 Mg Tablet PO 600 mg Q6H PRN Administration Pain, Moderate (Pain Scale 4-6 Lorazepam 1 mg 10/11/20 08:36 10/15/20 20:14 Lorazepam 1 Mg Tablet PO 1 mg Q4H PRN Administration Anxiety Magnesium Hydroxide 30 ml 10/06/20 01:53 Milk Of Magnesia 30 Ml Oral.Susp PO DAILY PRN Constipation Nicotine Polacrilex 4 mg 10/06/20 01:53 10/16/20 12:24 Nicotine Polacrilex 2 Mg Gum BUCCAL 4 mg Q2H PRN Administration Nicotine Cravings Olanzapine 20 mg 10/05/20 21:00 10/15/20 20:14 Olanzapine 10 Mg Tablet PO 20 mg BEDTIME HERON Administration Trazodone HCl 50 mg 10/06/20 01:53 Trazodone Hcl 50 Mg Tablet PO BEDTIME PRN Insomnia Allergies Allergies Allergy/AdvReac Type Severity Reaction Status Date / Time Penicillins [PCN] Allergy Unknown UNKNOWN Verified 10/05/20 19:44 Assessment & Plan Assessment & Plan (1) Schizoaffective disorder: Status: Acute Code(s): F25.9 - Schizoaffective disorder, unspecified Assessment and Plan: CT current treatment plan Greater than 50% of the session was spent on counseling and/or coordination of care Patient educated on: diagnosis and medication risk/benefits Informed Consent: further education needed Reason for contiued inpatient stay Substantial Risk for: rapid decompensation
[2020-10-16 16:28] VITALS: BP 133/67; PULSE 80; TEMP 36.3
[2020-10-16] MEDS: OLANZapine 10 MG TABLET 20 MG PO (20:39)
[2020-10-16] MEDS: LORazepam 1 MG TABLET PO (20:40)
--- NOTE | 2020-10-17 09:27 | HO.PSYCHPN ---
Subjective Subjective Date of Service: 10/17/20 Reason For Visit: ACUTE PSYCHOSIS Subjective Notes: Conditional Voluntary Interim History: Lon continues to be more clear about his situation. He spoke about a desire to go to [facility]. He is ambivalent about going to the [facility]. Medication Compliance: Yes Side effects from medications: No Attending Groups: Intermittent Review of Systems Acute medical concerns: No Medical Review of Systems: unchanged Mental Status Exam Mental Status Exam Patient Appearance: Well Grooomed and Appropriate Patient Orientation: Person Level of Consciousness: Awake Patient Behavior: Appropriate and Poor Eye Contact Mood Description: Calm and Blunted Affect Description: Calm and Blunted Ability to Follow Directions: Poor Speech Pattern: Soft-Spoken and Mumbled Memory Description: Intact Hallucinations: None Delusions: Paranoid Ideation, Present and Ideas of Reference Thought Process: Goal Oriented Thought Content: positive for Preoccupation, negative for Suicidal Ideation and negative for Homicidal Ideation Judgement: Poor Judgement and Insight: impaired Diagnostics Vital Signs (24Hr): Vital Signs - 24 hr 10/16/20 16:28 Temperature 97.3 F Pulse Rate 80 Blood Pressure 133/67 Body Mass Index 27.1 Medications Medications Current Medications Generic Name Dose Route Start Last Admin Trade Name Freq PRN Reason Stop Dose Admin Acetaminophen 650 mg 10/06/20 01:53 10/11/20 20:58 Acetaminophen 325 Mg Tablet PO 650 mg Q6H PRN Administration Headache/Pain Mild Scale (1-3) Al Hydroxide/Mg Hydroxide 30 ml 10/06/20 01:53 Magnesium Hydrox/Alum Hydrox 30 Ml Oral.Susp PO Q6H PRN Heartburn/Nausea Diphenhydramine HCl 50 mg 10/06/20 01:53 Diphenhydramine Hcl 25 Mg Tablet PO Q4H PRN agitation Haloperidol 5 mg 10/06/20 01:04 Haloperidol 5 Mg Tablet PO Q4H PRN agitation Hydroxyzine HCl 25 mg 10/06/20 01:53 Hydroxyzine Hcl 25 Mg Tablet PO BEDTIME PRN Anxiety Ibuprofen 600 mg 10/11/20 10:02 10/13/20 22:38 Ibuprofen 600 Mg Tablet PO 600 mg Q6H PRN Administration Pain, Moderate (Pain Scale 4-6 Lorazepam 1 mg 10/11/20 08:36 10/16/20 20:40 Lorazepam 1 Mg Tablet PO 1 mg Q4H PRN Administration Anxiety Magnesium Hydroxide 30 ml 10/06/20 01:53 Milk Of Magnesia 30 Ml Oral.Susp PO DAILY PRN Constipation Nicotine Polacrilex 4 mg 10/06/20 01:53 10/16/20 12:24 Nicotine Polacrilex 2 Mg Gum BUCCAL 4 mg Q2H PRN Administration Nicotine Cravings Olanzapine 20 mg 10/05/20 21:00 10/16/20 20:39 Olanzapine 10 Mg Tablet PO 20 mg BEDTIME HERON Administration Trazodone HCl 50 mg 10/06/20 01:53 Trazodone Hcl 50 Mg Tablet PO BEDTIME PRN Insomnia Allergies Allergies Allergy/AdvReac Type Severity Reaction Status Date / Time Penicillins [PCN] Allergy Unknown UNKNOWN Verified 10/05/20 19:44 Assessment & Plan Assessment & Plan (1) Schizoaffective disorder: Status: Acute Code(s): F25.9 - Schizoaffective disorder, unspecified Assessment and Plan: CT current treatment plan Greater than 50% of the session was spent on counseling and/or coordination of care Patient educated on: diagnosis, medication risk/benefits and substance abuse Informed Consent: further education needed Reason for contiued inpatient stay Substantial Risk for: rapid decompensation
[2020-10-17 18:45] VITALS: BP 141/79; PULSE 72; TEMP 36.6
[2020-10-17] MEDS: OLANZapine 10 MG TABLET 20 MG PO (20:52)
--- NOTE | 2020-10-18 09:18 | HO.PSYCHPN ---
Subjective Subjective Date of Service: 10/18/20 Reason For Visit: ACUTE PSYCHOSIS Subjective Notes: Conditional Voluntary Interim History: Freedom is more present on the unit. He is well groomed and he is in behavioral control. He continues to assert that he would like to go to [facility]. SW is working with [facility] and [facility] regarding disposition Medication Compliance: Yes Side effects from medications: No Attending Groups: Intermittent Review of Systems Acute medical concerns: No Medical Review of Systems: unchanged Mental Status Exam Mental Status Exam Patient Appearance: Well Grooomed and Appropriate Patient Orientation: Person Level of Consciousness: Awake Patient Behavior: Appropriate and Poor Eye Contact Mood Description: Calm and Blunted Affect Description: Calm and Blunted Ability to Follow Directions: Poor Speech Pattern: Soft-Spoken and Mumbled Memory Description: Intact Hallucinations: None Delusions: Paranoid Ideation, Present and Ideas of Reference Thought Process: Goal Oriented Thought Content: positive for Preoccupation, negative for Suicidal Ideation and negative for Homicidal Ideation Judgement: Poor Judgement and Insight: impaired Diagnostics Vital Signs (24Hr): Vital Signs - 24 hr 10/17/20 18:45 Temperature 97.8 F Pulse Rate 72 Blood Pressure 141/79 H Body Mass Index 27.1 Medications Medications Current Medications Generic Name Dose Route Start Last Admin Trade Name Freq PRN Reason Stop Dose Admin Acetaminophen 650 mg 10/06/20 01:53 10/11/20 20:58 Acetaminophen 325 Mg Tablet PO 650 mg Q6H PRN Administration Headache/Pain Mild Scale (1-3) Al Hydroxide/Mg Hydroxide 30 ml 10/06/20 01:53 Magnesium Hydrox/Alum Hydrox 30 Ml Oral.Susp PO Q6H PRN Heartburn/Nausea Diphenhydramine HCl 50 mg 10/06/20 01:53 Diphenhydramine Hcl 25 Mg Tablet PO Q4H PRN agitation Haloperidol 5 mg 10/06/20 01:04 Haloperidol 5 Mg Tablet PO Q4H PRN agitation Hydroxyzine HCl 25 mg 10/06/20 01:53 Hydroxyzine Hcl 25 Mg Tablet PO BEDTIME PRN Anxiety Ibuprofen 600 mg 10/11/20 10:02 10/13/20 22:38 Ibuprofen 600 Mg Tablet PO 600 mg Q6H PRN Administration Pain, Moderate (Pain Scale 4-6 Lorazepam 1 mg 10/11/20 08:36 10/16/20 20:40 Lorazepam 1 Mg Tablet PO 1 mg Q4H PRN Administration Anxiety Magnesium Hydroxide 30 ml 10/06/20 01:53 Milk Of Magnesia 30 Ml Oral.Susp PO DAILY PRN Constipation Nicotine Polacrilex 4 mg 10/06/20 01:53 10/16/20 12:24 Nicotine Polacrilex 2 Mg Gum BUCCAL 4 mg Q2H PRN Administration Nicotine Cravings Olanzapine 20 mg 10/05/20 21:00 10/17/20 20:52 Olanzapine 10 Mg Tablet PO 20 mg BEDTIME HERON Administration Trazodone HCl 50 mg 10/06/20 01:53 Trazodone Hcl 50 Mg Tablet PO BEDTIME PRN Insomnia Allergies Allergies Allergy/AdvReac Type Severity Reaction Status Date / Time Penicillins [PCN] Allergy Unknown UNKNOWN Verified 10/05/20 19:44 Assessment & Plan Assessment & Plan (1) Schizoaffective disorder: Status: Acute Code(s): F25.9 - Schizoaffective disorder, unspecified Assessment and Plan: CT current treatment plan Greater than 50% of the session was spent on counseling and/or coordination of care
[2020-10-18] MEDS: LORazepam 1 MG TABLET PO (17:24)
[2020-10-18] MEDS: Acetaminophen 325 MG TABLET 650 MG PO (17:25)
[2020-10-18 18:00] VITALS: BP 137/75; PULSE 76; TEMP 37.1
[2020-10-18] MEDS: OLANZapine 10 MG TABLET 20 MG PO (20:49)
--- NOTE | 2020-10-19 09:27 | P.PNPSI_ITS ---
Subjective Subjective Date of Service: 10/19/20 Reason For Visit: ACUTE PSYCHOSIS Subjective Notes: Conditional Voluntary Interim History: Freedom is more present on the unit. He is well groomed and he is in behavioral control. He continues to assert that he would like to go to [facility]. SW is working with [facility] and [facility] regarding disposition Conchita Coronel will look into assisting. Medication Compliance: Yes Side effects from medications: No Attending Groups: Intermittent Review of Systems Acute medical concerns: No Medical Review of Systems: unchanged Mental Status Exam Mental Status Exam Patient Appearance: Well Grooomed and Appropriate Patient Orientation: Person and Place Level of Consciousness: Awake Patient Behavior: Appropriate and Poor Eye Contact Mood Description: Calm and Blunted Affect Description: Calm and Blunted Ability to Follow Directions: Poor Speech Pattern: Mumbled and Poor Articulation Memory Description: Intact Hallucinations: None Delusions: Not Present Thought Content: positive for Intact, positive for Circumstantial, positive for Loose Associations, positive for Disorganized (at times), negative for Suicidal Ideation and negative for Homicidal Ideation Judgement: Fair Diagnostics Vital Signs (24Hr): Vital Signs - 24 hr 10/18/20 18:00 Temperature 98.8 F Pulse Rate 76 Blood Pressure 137/75 Body Mass Index 27.1 Medications Medications Current Medications Generic Name Dose Route Start Last Admin Trade Name Freq PRN Reason Stop Dose Admin Acetaminophen 650 mg 10/06/20 01:53 10/18/20 17:25 Acetaminophen 325 Mg Tablet PO 650 mg Q6H PRN Administration Headache/Pain Mild Scale (1-3) Al Hydroxide/Mg Hydroxide 30 ml 10/06/20 01:53 Magnesium Hydrox/Alum Hydrox 30 Ml Oral.Susp PO Q6H PRN Heartburn/Nausea Diphenhydramine HCl 50 mg 10/06/20 01:53 Diphenhydramine Hcl 25 Mg Tablet PO Q4H PRN agitation Haloperidol 5 mg 10/06/20 01:04 Haloperidol 5 Mg Tablet PO Q4H PRN agitation Hydroxyzine HCl 25 mg 10/06/20 01:53 Hydroxyzine Hcl 25 Mg Tablet PO BEDTIME PRN Anxiety Ibuprofen 600 mg 10/11/20 10:02 10/13/20 22:38 Ibuprofen 600 Mg Tablet PO 600 mg Q6H PRN Administration Pain, Moderate (Pain Scale 4-6 Lorazepam 1 mg 10/11/20 08:36 10/18/20 17:24 Lorazepam 1 Mg Tablet PO 1 mg Q4H PRN Administration Anxiety Magnesium Hydroxide 30 ml 10/06/20 01:53 Milk Of Magnesia 30 Ml Oral.Susp PO DAILY PRN Constipation Nicotine Polacrilex 4 mg 10/06/20 01:53 12 12:24 Nicotine Polacrilex 2 Mg Gum BUCCAL 4 mg Q2H PRN Administration Nicotine Cravings Olanzapine 20 mg 10/05/20 21:00 10/18/20 20:49 Olanzapine 10 Mg Tablet PO 20 mg BEDTIME HERON Administration Trazodone HCl 50 mg 10/06/20 01:53 Trazodone Hcl 50 Mg Tablet PO BEDTIME PRN Insomnia Allergies Allergies Allergy/AdvReac Type Severity Reaction Status Date / Time Penicillins [PCN] Allergy Unknown UNKNOWN Verified 10/05/20 19:44 Assessment & Plan Assessment & Plan (1) Schizoaffective disorder: Status: Acute Code(s): F25.9 - Schizoaffective disorder, unspecified Assessment and Plan: CT current treatment plan Greater than 50% of the session was spent on counseling and/or coordination of care Patient educated on: diagnosis, medication risk/benefits and substance abuse Informed Consent: further education needed Reason for contiued inpatient stay Substantial Risk for: rapid decompensation
[2020-10-19 17:45] VITALS: BP 131/64; PULSE 68; TEMP 36.4
[2020-10-19] MEDS: OLANZapine 10 MG TABLET 20 MG PO (20:44)
[2020-10-19] MEDS: LORazepam 1 MG TABLET PO (21:10)
[2020-10-19] MEDS: Nicotine Polacrilex 2 MG GUM 4 MG BUCCAL (21:10)
[2020-10-20 06:00] VITALS: BP 113/54; PULSE 46; TEMP 36.7
--- NOTE | 2020-10-20 11:01 | HO.PSYCHPN ---
Subjective Subjective Date of Service: 10/20/20 Reason For Visit: ACUTE PSYCHOSIS Subjective Notes: Conditional Voluntary Interim History: pt wanting to know what dose of medication he is on noted to be more interactive Medication Compliance: Yes Side effects from medications: No Attending Groups: No Review of Systems Acute medical concerns: No Medical Review of Systems: unchanged Review of Systems: though co neck stiffness today and got cogentin Mental Status Exam Mental Status Exam Patient Appearance: Well Grooomed Patient Orientation: Person, Place, Time and Situation Level of Consciousness: Awake Patient Behavior: Appropriate Mood Description: Calm Affect Description: Blunted Patient Cognition Impaired: No Ability to Follow Directions: Good Speech Pattern: Clear Memory Description: Intact Delusions: Paranoid Ideation Thought Process: Intact Thought Content: positive for Circumstantial and positive for Evasive Depressive Symptoms: Muscle Tension and Difficulty Concentrating Judgement: Fair Diagnostics Vital Signs (24Hr): Vital Signs - 24 hr 10/19/20 17:45 10/20/20 06:00 Temperature 97.6 F 98.0 F Pulse Rate 68 46 L Blood Pressure 131/64 113/54 L Body Mass Index 27.1 Medications Medications Current Medications Generic Name Dose Route Start Last Admin Trade Name Freq PRN Reason Stop Dose Admin Acetaminophen 650 mg 10/06/20 01:53 10/18/20 17:25 Acetaminophen 325 Mg Tablet PO 650 mg Q6H PRN Administration Headache/Pain Mild Scale (1-3) Al Hydroxide/Mg Hydroxide 30 ml 10/06/20 01:53 Magnesium Hydrox/Alum Hydrox 30 Ml Oral.Susp PO Q6H PRN Heartburn/Nausea Diphenhydramine HCl 50 mg 10/06/20 01:53 Diphenhydramine Hcl 25 Mg Tablet PO Q4H PRN agitation Haloperidol 5 mg 10/06/20 01:04 Haloperidol 5 Mg Tablet PO Q4H PRN agitation Hydroxyzine HCl 25 mg 10/06/20 01:53 Hydroxyzine Hcl 25 Mg Tablet PO BEDTIME PRN Anxiety Ibuprofen 600 mg 10/11/20 10:02 10/13/20 22:38 Ibuprofen 600 Mg Tablet PO 600 mg Q6H PRN Administration Pain, Moderate (Pain Scale 4-6 Lorazepam 1 mg 10/11/20 08:36 10/19/20 21:10 Lorazepam 1 Mg Tablet PO 1 mg Q4H PRN Administration Anxiety Magnesium Hydroxide 30 ml 11/21/20 01:53 Milk Of Magnesia 30 Ml Oral.Susp PO DAILY PRN Constipation Nicotine Polacrilex 4 mg 10/06/20 01:53 12 21:10 Nicotine Polacrilex 2 Mg Gum BUCCAL 4 mg Q2H PRN Administration Nicotine Cravings Olanzapine 20 mg 10/05/20 21:00 10/19/20 20:44 Olanzapine 10 Mg Tablet PO 20 mg BEDTIME HERON Administration Trazodone HCl 50 mg 10/06/20 01:53 Trazodone Hcl 50 Mg Tablet PO BEDTIME PRN Insomnia Allergies Allergies Allergy/AdvReac Type Severity Reaction Status Date / Time Penicillins [PCN] Allergy Unknown UNKNOWN Verified 10/05/20 19:44 Assessment & Plan Assessment & Plan (1) Schizoaffective disorder: Status: Acute Code(s): F25.9 - Schizoaffective disorder, unspecified Assessment and Plan: seems better more interactive- watch for eps- Greater than 50% of the session was spent on counseling and/or coordination of care
[2020-10-20] MEDS: Nicotine Polacrilex 2 MG GUM 4 MG BUCCAL (16:31)
[2020-10-20] MEDS: Acetaminophen 325 MG TABLET 650 MG PO (16:31)
[2020-10-20] MEDS: LORazepam 1 MG TABLET PO (17:18)
[2020-10-20] MEDS: Benztropine Mesylate 0.5 MG TABLET PO (17:18)
[2020-10-20 18:00] VITALS: BP 142/84; PULSE 86; TEMP 36.9
[2020-10-20] MEDS: OLANZapine 10 MG TABLET 20 MG PO (20:49)
--- NOTE | 2020-10-21 14:38 | HO.PSYCHPN ---
Subjective Subjective Date of Service: 10/21/20 Reason For Visit: ACUTE PSYCHOSIS Subjective Notes: Conditional Voluntary Interim History: Pt reports wondering if dose of meds needs to be higher or lower- he hopes to go back to college and study science, or environment. Medication Compliance: Yes Side effects from medications: No Attending Groups: Intermittent Review of Systems Acute medical concerns: No Medical Review of Systems: unchanged Mental Status Exam Mental Status Exam Narrative: lying on bed, poor eye contact casually dressed Level of Consciousness: Awake Patient Behavior: Appropriate Mood Description: Blunted Affect Description: Withdrawn Patient Cognition Impaired: No Ability to Follow Directions: Fair Speech Pattern: Mumbled Thought Process: Rumination Thought Content: positive for Slowed Thinking Abnormal Motor Activity Signs and Symptoms: Psychomotor Retardation Judgement: Fair Diagnostics Vital Signs (24Hr): Vital Signs - 24 hr 10/20/20 18:00 Temperature 98.5 F Pulse Rate 86 Blood Pressure 142/84 H Body Mass Index 27.1 Medications Medications Current Medications Generic Name Dose Route Start Last Admin Trade Name Freq PRN Reason Stop Dose Admin Acetaminophen 650 mg 10/06/20 01:53 10/20/20 16:31 Acetaminophen 325 Mg Tablet PO 650 mg Q6H PRN Administration Headache/Pain Mild Scale (1-3) Al Hydroxide/Mg Hydroxide 30 ml 10/06/20 01:53 Magnesium Hydrox/Alum Hydrox 30 Ml Oral.Susp PO Q6H PRN Heartburn/Nausea Benztropine Mesylate 0.5 mg 10/20/20 16:39 10/20/20 17:18 Benztropine Mesylate 0.5 Mg Tablet PO 0.5 mg TID PRN Administration Extrapyramidal Effects Diphenhydramine HCl 50 mg 10/06/20 01:53 Diphenhydramine Hcl 25 Mg Tablet PO Q4H PRN agitation Haloperidol 5 mg 10/06/20 01:04 Haloperidol 5 Mg Tablet PO Q4H PRN agitation Hydroxyzine HCl 25 mg 10/06/20 01:53 Hydroxyzine Hcl 25 Mg Tablet PO BEDTIME PRN Anxiety Ibuprofen 600 mg 10/11/20 10:02 10/13/20 22:38 Ibuprofen 600 Mg Tablet PO 600 mg Q6H PRN Administration Pain, Moderate (Pain Scale 4-6 Lorazepam 1 mg 10/11/20 08:36 10/20/20 17:18 Lorazepam 1 Mg Tablet PO 1 mg Q4H PRN Administration Anxiety Magnesium Hydroxide 30 ml 10/06/20 01:53 Milk Of Magnesia 30 Ml Oral.Susp PO DAILY PRN Constipation Nicotine Polacrilex 4 mg 10/06/20 01:53 12 16:31 Nicotine Polacrilex 2 Mg Gum BUCCAL 4 mg Q2H PRN Administration Nicotine Cravings Olanzapine 20 mg 10/05/20 21:00 12 20:49 Olanzapine 10 Mg Tablet PO 20 mg BEDTIME HERON Administration Trazodone HCl 50 mg 10/06/20 01:53 Trazodone Hcl 50 Mg Tablet PO BEDTIME PRN Insomnia Allergies Allergies Allergy/AdvReac Type Severity Reaction Status Date / Time Penicillins [PCN] Allergy Unknown UNKNOWN Verified 10/05/20 19:44 Assessment & Plan Assessment & Plan (1) Schizoaffective disorder: Status: Acute Code(s): F25.9 - Schizoaffective disorder, unspecified Assessment and Plan: more engaged, still guarded Greater than 50% of the session was spent on counseling and/or coordination of care
[2020-10-21 18:00] VITALS: BP 132/79; PULSE 80; TEMP 36.3
[2020-10-21] MEDS: OLANZapine 10 MG TABLET 20 MG PO (21:33)
--- NOTE | 2020-10-22 09:21 | HO.PSYCHPN ---
Subjective Subjective Date of Service: 10/22/20 Reason For Visit: ACUTE PSYCHOSIS Subjective Notes: Conditional Voluntary Interim History: Freedom has been clearer and more engaged. He is making more plans for his future. He feels that the zyprexa is helpful. Medication Compliance: Yes Side effects from medications: No Attending Groups: Intermittent Review of Systems Acute medical concerns: No Medical Review of Systems: unchanged Mental Status Exam Mental Status Exam Narrative: lying on bed, poor eye contact casually dressed Patient Appearance: Well Grooomed Patient Orientation: Person, Place and Time Level of Consciousness: Awake Patient Behavior: Appropriate Mood Description: Calm and Blunted Affect Description: Calm and Withdrawn Patient Cognition Impaired: No Ability to Follow Directions: Fair Speech Pattern: Clear and Mumbled Hallucinations: None Delusions: Not Present Thought Process: Rumination Thought Content: positive for Slowed Thinking, negative for Suicidal Ideation and negative for Homicidal Ideation Abnormal Motor Activity Signs and Symptoms: Psychomotor Retardation Judgement: Fair Diagnostics Vital Signs (24Hr): Vital Signs - 24 hr 10/21/20 18:00 Temperature 97.3 F Pulse Rate 80 Blood Pressure 132/79 Body Mass Index 27.1 Medications Medications Current Medications Generic Name Dose Route Start Last Admin Trade Name Freq PRN Reason Stop Dose Admin Acetaminophen 650 mg 10/06/20 01:53 10/20/20 16:31 Acetaminophen 325 Mg Tablet PO 650 mg Q6H PRN Administration Headache/Pain Mild Scale (1-3) Al Hydroxide/Mg Hydroxide 30 ml 10/06/20 01:53 Magnesium Hydrox/Alum Hydrox 30 Ml Oral.Susp PO Q6H PRN Heartburn/Nausea Benztropine Mesylate 0.5 mg 10/20/20 16:39 10/20/20 17:18 Benztropine Mesylate 0.5 Mg Tablet PO 0.5 mg TID PRN Administration Extrapyramidal Effects Diphenhydramine HCl 50 mg 10/06/20 01:53 Diphenhydramine Hcl 25 Mg Tablet PO Q4H PRN agitation Haloperidol 5 mg 10/06/20 01:04 Haloperidol 5 Mg Tablet PO Q4H PRN agitation Hydroxyzine HCl 25 mg 10/06/20 01:53 Hydroxyzine Hcl 25 Mg Tablet PO BEDTIME PRN Anxiety Ibuprofen 600 mg 10/11/20 10:02 10/13/20 22:38 Ibuprofen 600 Mg Tablet PO 600 mg Q6H PRN Administration Pain, Moderate (Pain Scale 4-6 Lorazepam 1 mg 10/11/20 08:36 10/20/20 17:18 Lorazepam 1 Mg Tablet PO 1 mg Q4H PRN Administration Anxiety Magnesium Hydroxide 30 ml 10/06/20 01:53 Milk Of Magnesia 30 Ml Oral.Susp PO DAILY PRN Constipation Nicotine Polacrilex 4 mg 10/06/20 01:53 10/20/20 16:31 Nicotine Polacrilex 2 Mg Gum BUCCAL 4 mg Q2H PRN Administration Nicotine Cravings Olanzapine 20 mg 10/05/20 21:00 10/21/20 21:33 Olanzapine 10 Mg Tablet PO 20 mg BEDTIME HERON Administration Trazodone HCl 50 mg 10/06/20 01:53 Trazodone Hcl 50 Mg Tablet PO BEDTIME PRN Insomnia Allergies Allergies Allergy/AdvReac Type Severity Reaction Status Date / Time Penicillins [PCN] Allergy Unknown UNKNOWN Verified 10/05/20 19:44 Assessment & Plan Assessment & Plan (1) Schizoaffective disorder: Status: Acute Code(s): F25.9 - Schizoaffective disorder, unspecified Assessment and Plan: CT current treatment plan. Anticipate DC 10/24/20 Greater than 50% of the session was spent on counseling and/or coordination of care Patient educated on: diagnosis, medication risk/benefits and substance abuse Informed Consent: further education needed
[2020-10-22 16:46] VITALS: BP 149/67; PULSE 68; TEMP 36.7
[2020-10-22] MEDS: OLANZapine 10 MG TABLET 20 MG PO (21:17)
[2020-10-22] MEDS: Ibuprofen 600 MG TABLET PO (21:28)
--- NOTE | 2020-10-23 09:21 | HO.PSYCHPN ---
Subjective Subjective Date of Service: 10/23/20 Reason For Visit: ACUTE PSYCHOSIS Subjective Notes: Conditional Voluntary Interim History: Freedom has been clearer and more engaged. He is making more plans for his future. He feels that the zyprexa is helpful. He has no immediate concerns. Medication Compliance: Yes Side effects from medications: No Attending Groups: Intermittent Review of Systems Acute medical concerns: No Medical Review of Systems: unchanged Mental Status Exam Mental Status Exam Narrative: lying on bed, poor eye contact casually dressed Patient Appearance: Well Grooomed Patient Orientation: Person, Place and Time Level of Consciousness: Awake Patient Behavior: Appropriate Mood Description: Calm and Blunted Affect Description: Calm and Withdrawn Patient Cognition Impaired: No Ability to Follow Directions: Fair Speech Pattern: Clear and Mumbled Memory Description: Intact Thought Content: negative for Suicidal Ideation and negative for Homicidal Ideation Judgement: Fair Diagnostics Vital Signs (24Hr): Vital Signs - 24 hr 10/22/20 16:46 Temperature 98.1 F Pulse Rate 68 Blood Pressure 149/67 H Body Mass Index 27.1 Medications Medications Current Medications Generic Name Dose Route Start Last Admin Trade Name Freq PRN Reason Stop Dose Admin Acetaminophen 650 mg 10/06/20 01:53 10/20/20 16:31 Acetaminophen 325 Mg Tablet PO 650 mg Q6H PRN Administration Headache/Pain Mild Scale (1-3) Al Hydroxide/Mg Hydroxide 30 ml 10/06/20 01:53 Magnesium Hydrox/Alum Hydrox 30 Ml Oral.Susp PO Q6H PRN Heartburn/Nausea Benztropine Mesylate 0.5 mg 10/20/20 16:39 10/20/20 17:18 Benztropine Mesylate 0.5 Mg Tablet PO 0.5 mg TID PRN Administration Extrapyramidal Effects Diphenhydramine HCl 50 mg 10/06/20 01:53 Diphenhydramine Hcl 25 Mg Tablet PO Q4H PRN agitation Haloperidol 5 mg 10/06/20 01:04 Haloperidol 5 Mg Tablet PO Q4H PRN agitation Hydroxyzine HCl 25 mg 10/06/20 01:53 Hydroxyzine Hcl 25 Mg Tablet PO BEDTIME PRN Anxiety Ibuprofen 600 mg 10/11/20 10:02 10/22/20 21:28 Ibuprofen 600 Mg Tablet PO 600 mg Q6H PRN Administration Pain, Moderate (Pain Scale 4-6 Lorazepam 1 mg 10/11/20 08:36 10/20/20 17:18 Lorazepam 1 Mg Tablet PO 1 mg Q4H PRN Administration Anxiety Magnesium Hydroxide 30 ml 10/06/20 01:53 Milk Of Magnesia 30 Ml Oral.Susp PO DAILY PRN Constipation Nicotine Polacrilex 4 mg 10/06/20 01:53 10/20/20 16:31 Nicotine Polacrilex 2 Mg Gum BUCCAL 4 mg Q2H PRN Administration Nicotine Cravings Olanzapine 20 mg 10/05/20 21:00 10/22/20 21:17 Olanzapine 10 Mg Tablet PO 20 mg BEDTIME HERON Administration Trazodone HCl 50 mg 10/06/20 01:53 Trazodone Hcl 50 Mg Tablet PO BEDTIME PRN Insomnia Allergies Allergies Allergy/AdvReac Type Severity Reaction Status Date / Time Penicillins [PCN] Allergy Unknown UNKNOWN Verified 10/05/20 19:44 Assessment & Plan Assessment & Plan (1) Schizoaffective disorder: Status: Acute Code(s): F25.9 - Schizoaffective disorder, unspecified Assessment and Plan: CT current treatment plan. Anticipate DC 10/24/20 Greater than 50% of the session was spent on counseling and/or coordination of care Patient educated on: diagnosis, medication risk/benefits and substance abuse Informed Consent: further education needed Reason for contiued inpatient stay Substantial Risk for: rapid decompensation
[2020-10-23 18:00] VITALS: BP 135/63; PULSE 79; TEMP 36.9
[2020-10-23] MEDS: OLANZapine 10 MG TABLET 20 MG PO (22:08)
[2020-10-24 07:05] VITALS: BP 113/69; PULSE 51; RESP 16; TEMP 36.8
--- NOTE | 2020-10-24 09:26 | PM.PSYDC ---
DS: Providers Provider Date of admission: 10/06/20 01:03 Date of discharge: 10/24/20 Primary care physician: Unknown Physician Attending physician on admission: Elaine Marsh Attending physician on discharge: Elaine Marsh DS: Diagnosis Discharge Diagnosis (1) Schizoaffective disorder: Status: Acute DS: Medications Discharge Medications Home Medications: Previous Rx's Medication Instructions Recorded olanzapine [Zyprexa] 20 mg PO BEDTIME #30 tab 10/02/20 benztropine 0.5 mg PO TID PRN #30 tab 10/24/20 ibuprofen 600 mg PO Q6H PRN #30 tab 10/24/20 lorazepam 1 mg PO Q4H PRN #30 tab 10/24/20 Discharge Plan Discharge Patient Disposition: er SNF Referrals: Dr. Diaz Ash, Psychiatrist [Other] - 10/25/20 9:00 am (To be seen at [facility]) Rena Aguilera, GRADING [employer]INE [employer] [Nurse Practitioner] - 11/08/20 10:00 am (TELEVISIT) Physician,Unknown [Primary Care Provider] - Discharge Medications: New benztropine 0.5 mg Tablet 0.5 mg PO TID PRN (Reason: Extrapyramidal Effects) Qty: 30 RF: 0 lorazepam 1 mg Tablet 1 mg PO Q4H PRN (Reason: Anxiety) Qty: 30 RF: 0 ibuprofen 600 mg Tablet 600 mg PO Q6H PRN (Reason: Pain, Moderate (Pain Scale 4-6) Qty: 30 RF: 0 Continued olanzapine [Zyprexa] 20 mg tablet 20 mg PO BEDTIME Qty: 30 RF: 0 Discharge Orders: Discharge Order (Routine); Ordered 10/24/20 Ordered By: Elaine Marsh Diet: advance to usual diet Activity on Discharge: As tolerated Stand Alone Forms: Community Support Discharge Date/Time: 10/24/20 13:15 Visit Report Forms: Patient Portal Discharge page Care Plan Goals: Reduce psychosis Minimize substance use Health Concerns: Psychosis Substance abuse Plan of Treatment: Stay on zyprexa Work with staff at [facility] Stay sober Mental Status Exam Mental Status Exam Narrative: lying on bed, poor eye contact casually dressed Patient Appearance: Well Grooomed Patient Orientation: Person, Place and Time Level of Consciousness: Awake Patient Behavior: Appropriate Mood Description: Calm and Blunted Affect Description: Calm and Withdrawn Patient Cognition Impaired: No Ability to Follow Directions: Fair Speech Pattern: Clear and Mumbled Memory Description: Intact Thought Content: negative for Suicidal Ideation and negative for Homicidal Ideation Judgement: Fair DS: Summary Hospital Course Hospital Course: Pt is a 25 yo male with hx of psychotic illness who presents just a few days after being discharged from in face of medication non-adherence and breaking restraining order against his mother. Pt is a poor historian and not willing to cooperate with interview saying he is staying in bed since he's tired. Pt did not make eye contact with check writer, was soft spoken and mumbled his words; he appeared internally preoccupied. Pt says he feels completely safe on the unit; he denies AVH. Hospital Course Lon was admitted, and on 15 minute checks. He was initially hesitant about being in the hospital but later signed a CV and it was accepted. He agreed to resume zyprexa, which was given as zydis for a time. He improved rapidly and became more engaged and reflective on his life. He was able to agree to return to [facility], and he was accepted back. Status at Discharge Functional status at discharge: independent ambulation Overall status at discharge: patient is progressing back to baseline Time Spent with Patient Time attestation: Total time spent providing and/or coordinating discharge services:
[2020-10-24 10:46] LABS: Influenza A PCR NEGATIVE (Negative); Influenza B PCR NEGATIVE (Negative); Resp Syncy Virus RNA Qual PCR NEGATIVE (Negative); SARS COV2 PCR INHOUSE NEGATIVE (Negative)
== END 2020-10-24 13:15 | disposition skilled nursing facility (03) | DRG 750 ==
LOC: HO.ED 10-06 00:50 → HO.PM5 10-06 01:10
PROVIDERS: Nurse Practitioner Family; Admitting Provider Psychiatry & Neurology Psychiatry; Emergency Provider Emergency Medicine; Visit Provider Psychiatry & Neurology Psychiatry
DX: F25.9 Schizoaffective disorder, unspecified (principal); Z91.14 Patient's other noncompliance with medication regimen; F43.10 Post-traumatic stress disorder, unspecified; F17.210 Nicotine dependence, cigarettes, uncomplicated; Z71.6 Tobacco abuse counseling; Z20.828 Contact with and (suspected) exposure to other viral communicable diseases; Z88.0 Allergy status to penicillin; Z79.899 Other long term (current) drug therapy
CPT/HCPCS: 0241U; 80320; 87635; 99222; 99231; 99232; 99285

== ENCOUNTER 2020-11-06 15:32 | Inpatient (IN) | payer OTHER, SELFPAY ==
[2020-11-06 15:49] VITALS: BP 143/93; PULSE 94; RESP 18; TEMP 36.8; O2SAT 96; BMI 22.7
--- NOTE | 2020-11-06 16:49 | ED.PSYCH ---
HPI - Psych General Chief Complaint: Psychiatric Symptoms Stated Complaint: u Time Seen by Provider: 11/06/20 15:59 Source: patient Mode of arrival: EMS Limitations: no limitations History of Present Illness HPI Narrative: Patient was sent to the emergency room by his care home on [address] for psych evaluation. Patient left care home 2 days ago on return today. Patient missed 2 doses of olanzapine. The care home wants him to be evaluated before he returns to the care home. According to the patient's nurse, the patient states that he has been going on only for 1 hour, however it has been 2 days. Patient denies SI or HI. Patient states that he does not take any prescribed medications, although he is on olanzapine Related Data Previous Rx's Medication Instructions Recorded olanzapine [Zyprexa] 20 mg PO BEDTIME #30 tab 10/02/20 benztropine 0.5 mg PO TID PRN #30 tab 10/24/20 ibuprofen 600 mg PO Q6H PRN #30 tab 10/24/20 Allergies Allergy/AdvReac Type Severity Reaction Status Date / Time Penicillins [PCN] Allergy Unknown UNKNOWN Verified 10/05/20 19:44 Review of Systems Review of Systems: Constitutional : No Weight loss, No Fever, No Chills, No Night Sweats, No Fatigue, No Malaise ENT/Mouth : No Hearing loss, No Ear Pain, No Nasal Congestion, No Sinus Pain, No Hoarseness, No sore throat, No Rhinorrhea, No Swallowing Difficulty Eyes: No Eye Pain, No Swelling, No Redness, No Foreign Body, No Discharge, No Vision Changes Cardiovascular : No Chest Pain, No SOB, No Dyspnea on Exertion, No Orthopnea, No Edema, No Palpitations Respiratory : No Cough, No Sputum, No Wheezing, No Smoke Exposure, No Dyspnea Gastrointestinal : No Nausea, No Vomiting, No Diarrhea, No Constipation, No abdominal Pain, No Hematochezia, No Melena Genitourinary : no irregular bleeding, No Dysuria, No Urinary Frequency, No Hematuria, No Urinary Incontinence, No Urgency, No Flank Pain, No Urinary Flow Changes, No Hesitancy Musculoskeletal : No joint pain, No Myalgias, No Joint Swelling Skin : No Skin Lesions, No rash Neuro : No Weakness, No Numbness, No Paresthesias, No Loss of Consciousness, No Dizziness, No Headache Psych : No SI, no HI Heme/Lymph: No Bruising, No Bleeding,No Lymphadenopathy Endocrine : No Polyuria, No Polydipsia, No Temperature Intolerance PMF Past Medical History Medical History PTSD (post-traumatic stress disorder) Schizophrenia Social History Social History Household Members: Other Housing: House Alcohol intake: unknown Smoking Status: Never smoker Tobacco Type: Cigarette Packs Per Day: 4 Cigarettes Per Day: 80.0 Years Smoked: 8 Second Hand Smoke Exposure: No Substance Use Type: Marijuana Advance Directives: No Advance Directives Information Provided: No service: No Sexual orientation: Straight/Heterosexual Physical Exam Vital Signs: Vital Signs: Last Vital Signs Temp 98.2 F 11/06/20 15:49 Pulse 94 11/06/20 15:49 Resp 18 11/06/20 15:49 BP 143/93 H 11/06/20 15:49 Pulse Ox 96 11/06/20 15:49 Body Mass Index 22.7 Appearance: Alert. Oriented X3. No acute distress. Eyes: Pupils equal, round and reactive to light. ENT: Pharynx normal. Neck: Normal inspection. Neck supple. No lymph nodes noted. No crepitus CVS: Normal heart rate and rhythm. Pulses normal. Normal S1 and S2 Respiratory: No respiratory distress. Breath sounds normal. No Wheezing. No rales Abdomen: Soft and nontender. No rigidity. No distention. good BS x4 Skin: Skin warm and dry. Normal skin color. Normal skin turgor. Extremities: No lower extremity edema. No lower extremity edema. No Lacerations. No Rash Neuro: Oriented X 3. No motor deficit. No sensory deficit. Moving all extermities. No slurred speech. Psych: Unwilling to talk much, flat affect Course Course Course Narrative: [facility] evaluated the patient, patient is known to their service. Patient has been previously admitted. After evaluating the patient, they consider that patient should be readmitted for treatment in [facility] Patient remained [address], bed search, likely [facility]. Sign out given to Dr. Del Toro [facility] - Psych Restraints Face to Face Assessment: Face to Face Assessment: Current Situation: After assessment of the patient, a review of the pertinent medical record and a discussion with nursing staff, I feel the patient requires a restrain intervention. Reaction To: [] Medical Condition: [] Behavioral State: [] Continued Need: [] Lab Data Labs: Lab Results 11/06/20 Range/Units 17:36 Urine Opiates Screen Not Detected (Not Detect) Ur Barbiturates Screen Not Detected (Not Detect) Ur Phencyclidine Scrn Not Detected (Not Detect) Ur Amphetamines Screen Not Detected (Not Detect) U Benzodiazepines Scrn Not Detected (Not Detect) Urine Cocaine Screen Not Detected (Not Detect) U Marijuana (THC) Screen POSITIVE H (Not Detect) Discharge Plan Discharge Clinical Impression: Chronic schizophrenia Prescriptions: No Action olanzapine [Zyprexa] 20 mg tablet 20 mg PO BEDTIME Qty: 30 RF: 0 benztropine 0.5 mg Tablet 0.5 mg PO TID PRN (Reason: Extrapyramidal Effects) Qty: 30 RF: 0 ibuprofen 600 mg Tablet 600 mg PO Q6H PRN (Reason: Pain, Moderate (Pain Scale 4-6) Qty: 30 RF: 0
--- NOTE | 2020-11-06 17:20 | PC.NURSE ---
[facility] faxed/N clinician on POD who are here to assess patient in 03 wanted to assess the patient but notified they need [facility] report to assess the patient. Patient encourage to urine sample twice but was unable to provide, stated he is tried wanted to sleep. No distress reported so far, will continue to monitor.
--- NOTE | 2020-11-06 17:25 | PC.NURSE ---
[facility] clinicians left ED POD and notified us to call [facility] when [facility] report comes out.
[2020-11-06 17:53] LABS: Amphetamine Screen Urine Not Detected (Not Detect); Barbiturates, Urine Not Detected (Not Detect); Benzodiazepines Screen Urine Not Detected (Not Detect); Cannabinoid Screen Urine POSITIVE (Not Detect); Cocaine Screen Urine Not Detected (Not Detect); Opiate Screen Urine Not Detected (Not Detect); Phencyclidine Screen Urine Not Detected (Not Detect)
--- NOTE | 2020-11-06 18:04 | PC.NURSE ---
SHASHANK called/spoke with Bry/updated the CH report/notified that [facility] clinician will come shortly to see the patient.
--- NOTE | 2020-11-06 18:05 | PC.NURSE ---
[facility] called/notified us to call them at [phone], ask for Rossy Enriquez if patient is to be discharged.
--- NOTE | 2020-11-06 18:30 | PC.NURSE ---
Medication reconciliation completed, provider notified, pending EMAR update. Patient appears sleeping, not compliant with medication at this time, will continue to monitor.
[2020-11-06 22:10] VITALS: BP 111/58; PULSE 76; RESP 16; TEMP 36.9; O2SAT 95
--- NOTE | 2020-11-06 23:12 | PC.NURSE ---
Seen by SHASHANK. PT is inpatient bed search. [facility] called to confirm that they would be taking him.
--- NOTE | 2020-11-07 01:36 | MHC.CARE ---
Pt accepted for admission to [facility]. Pt refusing covid swab required for overnight admission. This pattern chart writer met with pt twice to discuss his resistance, which pt reported that he doesn't want to do the covid swab and doesn't want to go to [facility]. Pt has been calm and in behavioral control while he has been in the ED, and continues to demonstrate such behavior. Pt will not be admitted during 3rd shift, with admission being delayed until plan of care can be discussed amongst dept management.
[2020-11-07 06:00] VITALS: BP 112/52; PULSE 61; RESP 16; TEMP 37.4; O2SAT 97
--- NOTE | 2020-11-07 07:05 | PC.NURSE ---
Report received from GENI Barros. Pt resting, resp unlabored.
--- NOTE | 2020-11-07 08:25 | PC.NURSE ---
Pt awake, briefly, went to bathroom, declined to have vitals taken.
--- NOTE | 2020-11-07 09:42 | PC.NURSE ---
Several attempts made w/ M Joss Coronel, and RN- pt continues to decline to receive the COVID test, though aware he cannot be transferred w/ it.
--- NOTE | 2020-11-07 11:19 | PC.NURSE ---
Pt awake, standing in doorway, continues to decline Covid testing, affect angry.
[2020-11-07 12:00] VITALS: RESP 18
--- NOTE | 2020-11-07 16:01 | PC.NURSE ---
Clinician from [facility] attempted to encourage pt to accept Covid testing- pt continues to decline. Now, awake, standing in doorway, stating that he will 'stay in the ED until they come pick my f... ass up.'
--- NOTE | 2020-11-07 17:06 | PC.NURSE ---
Clinician from [facility] came to unit to speak to pt about Covid testing. Pt declined. Pt continues to decline ativan. Currently resting in room.
--- NOTE | 2020-11-07 17:43 | PC.NURSE ---
Pt resting, resp unlabored.
[2020-11-07 18:00] VITALS: RESP 18
[2020-11-07] MEDS: LORazepam 1 MG TABLET PO (18:02)
--- NOTE | 2020-11-07 18:04 | PC.NURSE ---
Pt requesting ativan but continues to decline covid testing stating 'i don't want to go upstairs.I was just there last week.'
[2020-11-07 19:33] LABS: COVID-19 Test Negative (Negative); IDNOW Serial# 9DD0AD1C
[2020-11-07] MEDS: OLANZapine 10 MG TABLET 20 MG PO (22:27)
--- NOTE | 2020-11-08 14:03 | HO.PSYADMNOT ---
HPI Chief Complaint: Psychosis Sources of Information: patient interviewed (pt refused interview today. He was in bed and declined x 2.), chart reviewed and crisis/core team assessment reviewed HPI Past Psychiatric History: Discharged from this past week; discontinued taking meds Multiple hospital stays He had a Blane's order but it has lapsed. REPLACED BY [facility] Medical History PTSD (post-traumatic stress disorder) Schizophrenia Family History: Unknown Social History: [facility] at [facility] On disability Legal issues in the past Trauma History: Significant trauma but details not available. Diagnostics Vital Signs (24Hr): Vital Signs - 24 hr 11/07/20 18:00 Respiratory Rate 18 Body Mass Index 22.7 Labs Labs: Laboratory Results - last 48 hr 11/06/20 11/07/20 17:36 19:11 Urine Opiates Screen Not Detected Ur Barbiturates Screen Not Detected Ur Phencyclidine Scrn Not Detected Ur Amphetamines Screen Not Detected U Benzodiazepines Scrn Not Detected Urine Cocaine Screen Not Detected U Marijuana (THC) Screen POSITIVE H COVID-19 (JINNY) Negative COVID-19 Clin Com See Note Meds/Allergies Meds Home Medications Acetaminophen (Acetaminophen 325 Mg Tablet) 650 mg PO Q6H PRN PRN Reason: Headache/Pain Mild Scale (1-3) Al Hydroxide/Mg Hydroxide (Magnesium Hydrox/Alum Hydrox 30 Ml Oral.Susp) 30 ml PO Q6H PRN PRN Reason: Heartburn/Nausea Benztropine Mesylate (Benztropine Mesylate 0.5 Mg Tablet) 0.5 mg PO TID PRN PRN Reason: Extrapyramidal Effects Hydroxyzine HCl (Hydroxyzine Hcl 25 Mg Tablet) 25 mg PO BEDTIME PRN PRN Reason: Anxiety Ibuprofen (Ibuprofen 600 Mg Tablet) 600 mg PO Q6H PRN PRN Reason: Pain, Moderate (Pain Scale 4-6 Magnesium Hydroxide (Milk Of Magnesia 30 Ml Oral.Susp) 30 ml PO DAILY PRN PRN Reason: Constipation Olanzapine (Olanzapine 10 Mg Tablet) 20 mg PO BEDTIME [facility] Last Admin: 11/07/20 22:27 Dose: 20 mg Documented by: Trazodone HCl (Trazodone Hcl 50 Mg Tablet) 50 mg PO BEDTIME PRN PRN Reason: Insomnia Allergies Allergies Allergy/AdvReac Type Severity Reaction Status Date / Time Penicillins [PCN] Allergy Unknown UNKNOWN Verified 10/05/20 19:44
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
[2020-11-08] MEDS: OLANZapine 10 MG TABLET 20 MG PO (20:39)
--- NOTE | 2020-11-09 11:13 | HO.PSYCHPN ---
Subjective Subjective Date of Service: 11/09/20 Reason For Visit: Psychosis Interim History: patient flat superficially cooperative Mental Status Exam Mental Status Exam Patient Appearance: Fatigued, Disheveled and Unkempt Patient Orientation: Person Level of Consciousness: Drowsy and Sedated Patient Behavior: Suspicious, Resistive to Care, Avoidant, Isolative and Uncooperative Mood Description: Apathetic Affect Description: Apathetic Ability to Follow Directions: Poor Speech Pattern: Impoverished and Spontaneous Speech Hallucinations: None (pt will not engage) Delusions: Not Present (pt will not engage) Depressive Symptoms: Diff. Making Decisions Judgement: Poor Diagnostics Vital Signs (24Hr): Body Mass Index 22.7 Labs Labs: Laboratory Results - last 48 hr 11/07/20 19:11 COVID-19 (JINNY) Negative COVID-19 Clin Com See Note Medications Medications Current Medications Generic Name Dose Route Start Last Admin Trade Name Freq PRN Reason Stop Dose Admin Acetaminophen 650 mg 11/07/20 21:37 Acetaminophen 325 Mg Tablet PO Q6H PRN Headache/Pain Mild Scale (1-3) Al Hydroxide/Mg Hydroxide 30 ml 11/07/20 21:37 Magnesium Hydrox/Alum Hydrox 30 Ml Oral.Susp PO Q6H PRN Heartburn/Nausea Benztropine Mesylate 0.5 mg 11/07/20 17:06 Benztropine Mesylate 0.5 Mg Tablet PO TID PRN Extrapyramidal Effects Haloperidol 5 mg 11/08/20 16:58 Haloperidol 5 Mg Tablet PO TID PRN anxiety, agitation Hydroxyzine HCl 25 mg 11/07/20 21:37 Hydroxyzine Hcl 25 Mg Tablet PO BEDTIME PRN Anxiety Ibuprofen 600 mg 11/07/20 17:06 Ibuprofen 600 Mg Tablet PO Q6H PRN Pain, Moderate (Pain Scale 4-6 Lorazepam 1 mg 11/08/20 17:00 Lorazepam 1 Mg Tablet PO Q4H PRN anxiety, agitation Magnesium Hydroxide 30 ml 11/07/20 21:37 Milk Of Magnesia 30 Ml Oral.Susp PO DAILY PRN Constipation Olanzapine 20 mg 11/07/20 21:00 11/08/20 20:39 Olanzapine 10 Mg Tablet PO 20 mg BEDTIME HERON Administration Trazodone HCl 50 mg 11/07/20 21:37 Trazodone Hcl 50 Mg Tablet PO BEDTIME PRN Insomnia Allergies Allergies Allergy/AdvReac Type Severity Reaction Status Date / Time Penicillins [PCN] Allergy Unknown UNKNOWN Verified 10/05/20 19:44 Assessment & Plan Assessment & Plan (1) Schizoaffective disorder: Status: Acute Code(s): F25.9 - Schizoaffective disorder, unspecified Assessment and Plan: continue plan of care Greater than 50% of the session was spent on counseling and/or coordination of care Reason for contiued inpatient stay Substantial Risk for: rapid decompensation
[2020-11-09 18:00] VITALS: BP 124/65; PULSE 55; TEMP 37.2
[2020-11-09] MEDS: OLANZapine 10 MG TABLET 20 MG PO (20:05)
[2020-11-09] MEDS: LORazepam 1 MG TABLET PO (20:07)
[2020-11-10 18:00] VITALS: BP 137/73; PULSE 65; TEMP 37.1
[2020-11-10] MEDS: OLANZapine 10 MG TABLET 20 MG PO (20:01)
--- NOTE | 2020-11-10 23:30 | HO.PSYCHPN ---
Subjective Subjective Date of Service: 11/11/20 Reason For Visit: Psychosis Interim History: pt flat threatening to others posturing PI Medication Compliance: Yes Mental Status Exam Mental Status Exam Patient Appearance: Fatigued, Disheveled and Unkempt Patient Orientation: Person Patient Behavior: Suspicious, Resistive to Care, Avoidant, Isolative and Uncooperative Mood Description: Apathetic Affect Description: Apathetic Ability to Follow Directions: Poor Speech Pattern: Impoverished and Spontaneous Speech Hallucinations: None (pt will not engage) Delusions: Not Present (pt will not engage) Depressive Symptoms: Diff. Making Decisions Judgement: Poor Diagnostics Vital Signs (24Hr): Vital Signs - 24 hr 11/10/20 18:00 Temperature 98.7 F Pulse Rate 65 Blood Pressure 137/73 Body Mass Index 22.7 Medications Medications Current Medications Generic Name Dose Route Start Last Admin Trade Name Freq PRN Reason Stop Dose Admin Acetaminophen 650 mg 11/07/20 21:37 Acetaminophen 325 Mg Tablet PO Q6H PRN Headache/Pain Mild Scale (1-3) Al Hydroxide/Mg Hydroxide 30 ml 11/07/20 21:37 Magnesium Hydrox/Alum Hydrox 30 Ml Oral.Susp PO Q6H PRN Heartburn/Nausea Benztropine Mesylate 0.5 mg 11/07/20 17:06 Benztropine Mesylate 0.5 Mg Tablet PO TID PRN Extrapyramidal Effects Haloperidol 5 mg 11/08/20 16:58 Haloperidol 5 Mg Tablet PO TID PRN anxiety, agitation Hydroxyzine HCl 25 mg 11/07/20 21:37 Hydroxyzine Hcl 25 Mg Tablet PO BEDTIME PRN Anxiety Ibuprofen 600 mg 11/07/20 17:06 Ibuprofen 600 Mg Tablet PO Q6H PRN Pain, Moderate (Pain Scale 4-6 Lorazepam 1 mg 11/08/20 17:00 11/09/20 20:07 Lorazepam 1 Mg Tablet PO 1 mg Q4H PRN Administration anxiety, agitation Magnesium Hydroxide 30 ml 11/07/20 21:37 Milk Of Magnesia 30 Ml Oral.Susp PO DAILY PRN Constipation Olanzapine 20 mg 11/07/20 21:00 11/10/20 20:01 Olanzapine 10 Mg Tablet PO 20 mg BEDTIME HERON Administration Trazodone HCl 50 mg 11/07/20 21:37 Trazodone Hcl 50 Mg Tablet PO BEDTIME PRN Insomnia Allergies Allergies Allergy/AdvReac Type Severity Reaction Status Date / Time Penicillins [PCN] Allergy Unknown UNKNOWN Verified 10/05/20 19:44 Assessment & Plan Assessment & Plan (1) Schizoaffective disorder: Status: Acute Code(s): F25.9 - Schizoaffective disorder, unspecified Assessment and Plan: cont zyprexa pt threatening others posturing Greater than 50% of the session was spent on counseling and/or coordination of care
[2020-11-11 16:55] VITALS: BP 136/65; PULSE 65; TEMP 37.1
[2020-11-11] MEDS: OLANZapine 10 MG TABLET 20 MG PO (21:17)
[2020-11-11] MEDS: hydrOXYzine HCL 25 MG TABLET PO (21:17)
--- NOTE | 2020-11-11 22:18 | HO.PSYCHPN ---
Subjective Subjective Date of Service: 11/11/20 Reason For Visit: Psychosis Interim History: patient has been making hostile at times threatening remarks and posturing to other patients on the unit he is somewhat vacant in conversation irritable dysphoric he denies he is having active thoughts of hurting others Medication Compliance: Yes Mental Status Exam Mental Status Exam Narrative: patient irritable dysphoric concrete posturing at times in the hallway denies hallucination suspicious of others his motive Patient Appearance: Appropriate Patient Orientation: Person, Place, Time and Situation Level of Consciousness: Awake Patient Behavior: Guarded, Suspicious and Aggressive Mood Description: Suspicious, Constricted and Anxious Affect Description: Suspicious Diagnostics Vital Signs (24Hr): Body Mass Index 22.7 Medications Medications Current Medications Generic Name Dose Route Start Last Admin Trade Name Freq PRN Reason Stop Dose Admin Acetaminophen 650 mg 11/07/20 21:37 Acetaminophen 325 Mg Tablet PO Q6H PRN Headache/Pain Mild Scale (1-3) Al Hydroxide/Mg Hydroxide 30 ml 11/07/20 21:37 Magnesium Hydrox/Alum Hydrox 30 Ml Oral.Susp PO Q6H PRN Heartburn/Nausea Benztropine Mesylate 0.5 mg 11/07/20 17:06 Benztropine Mesylate 0.5 Mg Tablet PO TID PRN Extrapyramidal Effects Haloperidol 5 mg 11/08/20 16:58 Haloperidol 5 Mg Tablet PO TID PRN anxiety, agitation Hydroxyzine HCl 25 mg 11/07/20 21:37 11/11/20 21:17 Hydroxyzine Hcl 25 Mg Tablet PO 25 mg BEDTIME PRN Administration Anxiety Ibuprofen 600 mg 11/07/20 17:06 Ibuprofen 600 Mg Tablet PO Q6H PRN Pain, Moderate (Pain Scale 4-6 Lorazepam 1 mg 11/08/20 17:00 11/09/20 20:07 Lorazepam 1 Mg Tablet PO 1 mg Q4H PRN Administration anxiety, agitation Magnesium Hydroxide 30 ml 11/07/20 21:37 Milk Of Magnesia 30 Ml Oral.Susp PO DAILY PRN Constipation Olanzapine 20 mg 11/07/20 21:00 11/11/20 21:17 Olanzapine 10 Mg Tablet PO 20 mg BEDTIME HERON Administration Trazodone HCl 50 mg 11/07/20 21:37 Trazodone Hcl 50 Mg Tablet PO BEDTIME PRN Insomnia Allergies Allergies Allergy/AdvReac Type Severity Reaction Status Date / Time Penicillins [PCN] Allergy Unknown UNKNOWN Verified 10/05/20 19:44 Assessment & Plan Assessment & Plan (1) Chronic schizophrenia: Status: Acute Code(s): F20.9 - Schizophrenia, unspecified Assessment and Plan: consider change to zyprexa zydis consider Haldol augmentation or changed to long-acting injectable Greater than 50% of the session was spent on counseling and/or coordination of care
--- NOTE | 2020-11-12 17:19 | PC.ADMIT ---
THIS IS ONE OF MULTIPLE ADMISSIONS FOR THIS 25 Y.O. MALE TO [facility]. ARRIVED ON UNIT AT 2220 ON 11/07/20 AND PLACED ON 5 MIN SAFETY CHECKS. REFERRED BY SHASHANK DEVINE WITH DX OF UNSPECIFIED SCHIZOPHRENIA SPECTRUM. CONDITIONAL VOLUNTARY SIGNED BY PT. PRECIPITATING FACTORS TO ADMISSION: PT WAS EVALUATED IN [facility] AFTER BEING MISSING FROM HIS HALFWAY FOR 2 DAYS, MED NON-COMPLIANCE AND NOTABLE CHANGE FROM BASELINE PRESENTATION. UTOX POSITIVE FOR [place]. PT WAS UNCOOPERATIVE IN EVALUATION, REFUSING TO ENGAGE IN CONVERSATION. PT CONTINUED TO BE UNCOOPERATIVE AT TIME OF ADMISSION ASSESSMENT WITH THIS HOME CARE RN. PT IRRITABLE WITH STAFF AND PEERS IN DAYS FOLLOWING ADMISSION TO THIS UNIT. ANSWERS QUESTIONS WITH QUESTIONS DURING INTERACTIONS. MINIMALLY ENGAGABLE. GUARDED/PARANOID. DENIES AH/VH, BUT APPEARS TO BE PREOCCUPIED. DENIES SI/HI. PT CURRENTLY ON 15 MIN SAFETY CHECKS.
[2020-11-12] MEDS: Acetaminophen 325 MG TABLET 650 MG PO (17:30)
--- NOTE | 2020-11-12 17:34 | P.PNPSI_ITS ---
Subjective Subjective Date of Service: 11/12/20 Reason For Visit: Psychosis Interim History: Visible in milieu. Poorly engaged. I guess I am waiting for a placement. Appears pre-occupied, having difficulty engaging in discussion, paranoid. Review of Systems Review of Systems Yes Unobtainable due to mental status Reports behavioral changes and Reports confusion Psychiatric: Reports behavioral changes, Reports confusion, Reports difficulty concentrating, Reports auditory hallucinations, Reports irritability, Reports mood swings and Reports paranoia Mental Status Exam Mental Status Exam Patient Appearance: Well Grooomed Patient Orientation: Person and Place Level of Consciousness: Awake Patient Behavior: Guarded, Suspicious, Wandering, Resistive to Care, Avoidant, Distractible and Uncooperative Mood Description: Suspicious, Withdrawn, Hostile, Blunted and Angry Affect Description: Constricted Patient Cognition Impaired: Yes Ability to Follow Directions: Poor Speech Pattern: Perseverating, Impoverished and Long Pauses Memory Description: Remote Impaired, Immediate Impaired, Radio Intelligence Operator Impaired, Episodic Impaired, Recent Impaired and Working Impaired Hallucinations: Auditory Delusions: Paranoid Ideation and Present Thought Process: Distracted Thought Content: positive for Circumstantial, positive for Perseveration, positive for Thought Blocking (???) and positive for Slowed Thinking Depressive Symptoms: Increased Irritability Abnormal Motor Activity Signs and Symptoms: Restlessness Judgement: Poor Diagnostics Vital Signs (24Hr): Body Mass Index 22.7 Medications Medications Current Medications Generic Name Dose Route Start Last Admin Trade Name Freq PRN Reason Stop Dose Admin Acetaminophen 650 mg 11/07/20 21:37 11/12/20 17:30 Acetaminophen 325 Mg Tablet PO 650 mg Q6H PRN Administration Headache/Pain Mild Scale (1-3) Al Hydroxide/Mg Hydroxide 30 ml 11/07/20 21:37 Magnesium Hydrox/Alum Hydrox 30 Ml Oral.Susp PO Q6H PRN Heartburn/Nausea Benztropine Mesylate 0.5 mg 11/07/20 17:06 Benztropine Mesylate 0.5 Mg Tablet PO TID PRN Extrapyramidal Effects Haloperidol 5 mg 11/08/20 16:58 Haloperidol 5 Mg Tablet PO TID PRN anxiety, agitation Hydroxyzine HCl 25 mg 11/07/20 21:37 11/11/20 21:17 Hydroxyzine Hcl 25 Mg Tablet PO 25 mg BEDTIME PRN Administration Anxiety Ibuprofen 600 mg 11/07/20 17:06 Ibuprofen 600 Mg Tablet PO Q6H PRN Pain, Moderate (Pain Scale 4-6 Lorazepam 1 mg 11/08/20 17:00 11/09/20 20:07 Lorazepam 1 Mg Tablet PO 1 mg Q4H PRN Administration anxiety, agitation Magnesium Hydroxide 30 ml 11/07/20 21:37 Milk Of Magnesia 30 Ml Oral.Susp PO DAILY PRN Constipation Olanzapine 20 mg 11/07/20 21:00 11/11/20 21:17 Olanzapine 10 Mg Tablet PO 20 mg BEDTIME HERON Administration Trazodone HCl 50 mg 11/07/20 21:37 Trazodone Hcl 50 Mg Tablet PO BEDTIME PRN Insomnia Allergies Allergies Allergy/AdvReac Type Severity Reaction Status Date / Time Penicillins [PCN] Allergy Unknown UNKNOWN Verified 10/05/20 19:44 Assessment & Plan Assessment & Plan (1) Schizoaffective disorder: Status: Acute Code(s): F25.9 - Schizoaffective disorder, unspecified Assessment and Plan: Continue current regime. Greater than 50% of the session was spent on counseling and/or coordination of care Informed Consent: does not understand Reason for contiued inpatient stay Substantial Risk for: harm to self, harm to others, inability to function and rapid decompensation
[2020-11-12 18:00] VITALS: RESP 14
[2020-11-12] MEDS: OLANZapine 10 MG TABLET 20 MG PO (21:00)
--- NOTE | 2020-11-13 17:10 | P.PNPSI_ITS ---
Subjective Subjective Date of Service: 11/13/20 Reason For Visit: Psychosis Interim History: I am imprisoned at [facility]. I just want my stuff and want to go. I am fed up with the same groups. They want me to be more independent, then when I am, I get a Section XVII. (Unaware what a Section 17 is).Uninterested in a meeting with providers, declines medication changes at this time. Medication Compliance: Yes Side effects from medications: No (denies) Attending Groups: No (states he is not going) Review of Systems Review of Systems Yes all other systems are reviewed and are negative Reports behavioral changes and Reports confusion Psychiatric: Reports behavioral changes, Reports confusion, Reports hopelessness, Reports irritability and Reports mood swings Mental Status Exam Mental Status Exam Patient Appearance: Well Grooomed Patient Orientation: Person, Place, Time and Situation Level of Consciousness: Awake and Alert Patient Behavior: Talkative, Cooperative, Avoidant and Distractible Mood Description: Calm, Apathetic, Withdrawn, Depressed, Blunted and Sad Affect Description: Apathetic, Withdrawn, Constricted and Angry Patient Cognition Impaired: Yes Ability to Follow Directions: Poor Speech Pattern: Difficulty Finding Words and Spontaneous Speech Memory Description: Intact Hallucinations: None (denies) Delusions: Paranoid Ideation and Present Perceptual Disturbances: Derealization Thought Process: Rumination Thought Content: positive for [place], positive for Circumstantial, positive for Perseveration, positive for Poverty of Content and positive for Slowed Thinking Depressive Symptoms: Increased Irritability, Hopelessness, Unhappiness and Loss of Energy Judgement: Poor Diagnostics Vital Signs (24Hr): Vital Signs - 24 hr 11/12/20 18:00 Respiratory Rate 14 Body Mass Index 22.7 Medications Medications Current Medications Generic Name Dose Route Start Last Admin Trade Name Freq PRN Reason Stop Dose Admin Acetaminophen 650 mg 11/07/20 21:37 11/12/20 17:30 Acetaminophen 325 Mg Tablet PO 650 mg Q6H PRN Administration Headache/Pain Mild Scale (1-3) Al Hydroxide/Mg Hydroxide 30 ml 11/07/20 21:37 Magnesium Hydrox/Alum Hydrox 30 Ml Oral.Susp PO Q6H PRN Heartburn/Nausea Benztropine Mesylate 0.5 mg 11/07/20 17:06 Benztropine Mesylate 0.5 Mg Tablet PO TID PRN Extrapyramidal Effects Haloperidol 5 mg 11/08/20 16:58 Haloperidol 5 Mg Tablet PO TID PRN anxiety, agitation Hydroxyzine HCl 25 mg 11/07/20 21:37 11/11/20 21:17 Hydroxyzine Hcl 25 Mg Tablet PO 25 mg BEDTIME PRN Administration Anxiety Ibuprofen 600 mg 11/07/20 17:06 Ibuprofen 600 Mg Tablet PO Q6H PRN Pain, Moderate (Pain Scale 4-6 Magnesium Hydroxide 30 ml 11/07/20 21:37 Milk Of Magnesia 30 Ml Oral.Susp PO DAILY PRN Constipation Olanzapine 20 mg 11/07/20 21:00 11/12/20 21:00 Olanzapine 10 Mg Tablet PO 20 mg BEDTIME HERON Administration Trazodone HCl 50 mg 11/07/20 21:37 Trazodone Hcl 50 Mg Tablet PO BEDTIME PRN Insomnia Allergies Allergies Allergy/AdvReac Type Severity Reaction Status Date / Time Penicillins [PCN] Allergy Unknown UNKNOWN Verified 10/05/20 19:44 Assessment & Plan Assessment & Plan (1) Schizoaffective disorder: Status: Acute Code(s): F25.9 - Schizoaffective disorder, unspecified Greater than 50% of the session was spent on counseling and/or coordination of care Patient educated on: medication risk/benefits and therapeutic strategies Informed Consent: further education needed Reason for contiued inpatient stay Substantial Risk for: harm to self, harm to others, inability to function and rapid decompensation
[2020-11-13] MEDS: OLANZapine 10 MG TABLET 20 MG PO (21:06)
[2020-11-13] MEDS: hydrOXYzine HCL 25 MG TABLET PO (21:07)
[2020-11-14] MEDS: Acetaminophen 325 MG TABLET 650 MG PO (11:44)
--- NOTE | 2020-11-14 17:59 | HO.PSYCHPN ---
Subjective Subjective Date of Service: 11/14/20 Reason For Visit: Psychosis Interim History: Discussed trial of antidepressant medication with pt to assist in symptom mgt. He declines- I can do this with good nutrition. Medication Compliance: Yes Side effects from medications: No Attending Groups: No Review of Systems Reports behavioral changes and Reports confusion Psychiatric: Reports behavioral changes, Reports confusion, Reports depression, Reports difficulty concentrating, Reports hopelessness, Reports irritability and Reports anhedonia Mental Status Exam Mental Status Exam Patient Appearance: Appropriate Patient Orientation: Person, Place and Situation Level of Consciousness: Awake Patient Behavior: Guarded Mood Description: Depressed Affect Description: Flat Patient Cognition Impaired: Yes Ability to Follow Directions: Fair Speech Pattern: Clear and Spontaneous Speech Memory Description: Remote Impaired Hallucinations: None (denies today) Delusions: Not Present Thought Process: Illogical, Distracted and Rumination Thought Content: positive for Flight of Ideas, positive for [place], positive for Circumstantial and positive for Preoccupation Depressive Symptoms: Increased Irritability, Loss of Int. in Activity, Hopelessness and Unhappiness Judgement: Poor Diagnostics Vital Signs (24Hr): Body Mass Index 22.7 Medications Medications Current Medications Generic Name Dose Route Start Last Admin Trade Name Freq PRN Reason Stop Dose Admin Acetaminophen 650 mg 11/07/20 21:37 11/14/20 11:44 Acetaminophen 325 Mg Tablet PO 650 mg Q6H PRN Administration Headache/Pain Mild Scale (1-3) Al Hydroxide/Mg Hydroxide 30 ml 11/07/20 21:37 Magnesium Hydrox/Alum Hydrox 30 Ml Oral.Susp PO Q6H PRN Heartburn/Nausea Benztropine Mesylate 0.5 mg 11/07/20 17:06 Benztropine Mesylate 0.5 Mg Tablet PO TID PRN Extrapyramidal Effects Haloperidol 5 mg 11/08/20 16:58 Haloperidol 5 Mg Tablet PO TID PRN anxiety, agitation Hydroxyzine HCl 25 mg 11/07/20 21:37 11/13/20 21:07 Hydroxyzine Hcl 25 Mg Tablet PO 25 mg BEDTIME PRN Administration Anxiety Ibuprofen 600 mg 11/07/20 17:06 Ibuprofen 600 Mg Tablet PO Q6H PRN Pain, Moderate (Pain Scale 4-6 Magnesium Hydroxide 30 ml 11/07/20 21:37 Milk Of Magnesia 30 Ml Oral.Susp PO DAILY PRN Constipation Olanzapine 20 mg 11/07/20 21:00 11/13/20 21:06 Olanzapine 10 Mg Tablet PO 20 mg BEDTIME HERON Administration Trazodone HCl 50 mg 11/07/20 21:37 Trazodone Hcl 50 Mg Tablet PO BEDTIME PRN Insomnia Allergies Allergies Allergy/AdvReac Type Severity Reaction Status Date / Time Penicillins [PCN] Allergy Unknown UNKNOWN Verified 10/05/20 19:44 Assessment & Plan Assessment & Plan (1) Schizoaffective disorder: Qualifiers: Schizoaffective disorder type: bipolar Qualified Code(s): F25.0 - Schizoaffective disorder, bipolar type Status: Acute Code(s): F25.9 - Schizoaffective disorder, unspecified Greater than 50% of the session was spent on counseling and/or coordination of care Patient educated on: medication risk/benefits Informed Consent: does not understand and further education needed Reason for contiued inpatient stay Substantial Risk for: harm to self, harm to others, inability to function and rapid decompensation
[2020-11-14 18:00] VITALS: BP 123/59; PULSE 59; TEMP 37.2
[2020-11-14] MEDS: OLANZapine 10 MG TABLET 20 MG PO (20:42)
[2020-11-14] MEDS: hydrOXYzine HCL 25 MG TABLET PO (21:08)
[2020-11-15 06:00] VITALS: RESP 16
[2020-11-15 12:28] LABS: MANUAL DIFF FLAG NO
[2020-11-15 12:31] LABS: Basophils Percent Auto 0.4 % (0-2); Eosinophils Absolute Auto 0.1 X10*3/uL (0.0-0.4); Eosinophils Percent Auto 1.9 % (0-4); Hematocrit 44.5 % (42-52); Hemoglobin 14.8 g/dl (14.0-18.0); Imm Gran Abs Auto 0.02 X10*3/uL (0.00-0.03); Imm Gran Pct Auto 0.4 % (0.0-0.4); Mean Corpuscular HGB Conc 33.3 g/dl (31.0-36.0); Mean Corpuscular Hemoglobin 29.9 pg (27.0-33.0); Mean Corpuscular Volume 89.9 fL (80-98); Mean Platelet Volume 9.8 fL (9.4-12.4); Monocytes Absolute Auto 0.5 X10*3/uL (0.1-1.2); Monocytes Percent Auto 8.5 % (2-11); Neutrophils Absolute Auto 3.1 X10*3/uL (2.0-8.3); Neutrophils Percent Auto 53.8 % (45-73); Platelet Count 209 X10*3/uL (160-400); Red Blood Count 4.95 X10*6/uL (4.60-5.80); Red Cell Distribution Width 12.1 % (11.0-16.0); White Blood Count 5.7 X10*3/uL (4.8-10.8)
[2020-11-15 13:01] LABS: Estimated Average Glucose 94 mg/dL; Hemoglobin A1c % 4.9 %
[2020-11-15 13:11] LABS: Alanine Aminotransferase 19 U/L (0-40); Albumin Level 4.6 g/dL (3.5-5.0); Alkaline Phosphatase 77 U/L (39-117); Anion Gap 11 (12-20); Aspartate Amino Transferase 17 U/L (5-37); Bilirubin Total 0.2 mg/dL (0.0-1.0); Blood Urea Nitrogen 12 mg/dL (9-16); Calcium 9.1 mg/dL (8.4-10.2); Carbon Dioxide 28 mmol/L (22-29); Chloride 106 mmol/L (96-108); Cholesterol 151 mg/dL; Creatinine Clr Calc Pharmacy 130.3; Estimated Glomerular Filt Rate > 60; Glucose Random 97 mg/dL (60-115); HDL Cholesterol 30 mg/dL; LDL Cholesterol Calculated 90 mg/dl; Potassium 4.4 mmol/l (3.3-5.1); Sodium 141 mmol/L (135-145); Total Protein 6.8 g/dL (6.5-8.0); Triglycerides 156 mg/dL
[2020-11-15 13:25] LABS: Thyroid Stimulating Hormone 0.98 uIU/mL (0.32-4.0)
[2020-11-15 13:36] LABS: Vitamin B12 429 pg/mL (200-900)
[2020-11-15] MEDS: HaloperidoL 5 MG TABLET PO (14:55)
--- NOTE | 2020-11-15 16:02 | HO.PSYCHPN ---
Subjective Subjective Date of Service: 11/15/20 Reason For Visit: Psychosis Interim History: Visable in milieu. Continues to appear depressed. Declines further medication interventions. Medication Compliance: Yes Side effects from medications: No Attending Groups: No Review of Systems Review of Systems Yes Unobtainable due to mental status Reports behavioral changes and Reports confusion Psychiatric: Reports behavioral changes, Reports confusion, Reports depression, Reports difficulty concentrating, Reports hopelessness and Reports irritability Mental Status Exam Mental Status Exam Patient Appearance: Well Grooomed and Appropriate Patient Orientation: Person, Place and Situation Level of Consciousness: Awake and Alert Patient Behavior: Guarded, Suspicious, Wandering, Resistive to Care (declines intervention) and Distractible Mood Description: Calm, Apathetic, Withdrawn and Constricted Affect Description: Constricted Patient Cognition Impaired: Yes Ability to Follow Directions: Fair Speech Pattern: Perseverating and Spontaneous Speech Hallucinations: Auditory (at times it appears he is responding to stimuli) Delusions: Being Controlled, Paranoid Ideation and Present Thought Process: Illogical, Distracted and Rumination Thought Content: positive for Circumstantial, positive for Perseveration, positive for Poverty of Content, positive for Preoccupation and positive for Slowed Thinking Depressive Symptoms: Increased Irritability, Loss of Int. in Activity, Hopelessness, Unhappiness and Difficulty Concentrating Abnormal Motor Activity Signs and Symptoms: Restlessness Judgement: Poor Diagnostics Vital Signs (24Hr): Vital Signs - 24 hr 11/14/20 18:00 11/15/20 06:00 Temperature 98.9 F Pulse Rate 59 Respiratory Rate 16 Blood Pressure 123/59 L Body Mass Index 22.7 Labs Results: 11/15/20 11:40 11/15/20 11:40 Labs: Laboratory Results - last 48 hr 11/15/20 11/15/20 11/15/20 11:40 11:40 11:40 WBC 5.7 RBC 4.95 Hgb 14.8 Hct 44.5 MCV 89.9 MCH 29.9 MCHC 33.3 RDW 12.1 Plt Count 209 MPV 9.8 Immature Gran % (Auto) 0.4 Neut % (Auto) 53.8 Lymph % (Auto) 35.0 [place] % (Auto) 8.5 Eos % (Auto) 1.9 Baso % (Auto) 0.4 Lymph # (Auto) 2.0 [place] # (Auto) 0.5 Eos # (Auto) 0.1 Baso # (Auto) 0.0 Abs Immat Gran (auto) 0.02 Absolute Neuts (auto) 3.1 Absolute Nucleated RBC 0.000 Nucleated RBC % (auto) 0.0 Sodium 141 Potassium 4.4 D Chloride 106 Carbon Dioxide 28 Anion Gap 11 L BUN 12 Creatinine 0.82 Estim Creat Clear Calc 130.3 Estimated GFR > 60 Random Glucose 97 Estimat Average Glucose 94 Hemoglobin A1c % 4.9 Calcium 9.1 Total Bilirubin 0.2 AST 17 ALT 19 Alkaline Phosphatase 77 Total Protein 6.8 Albumin 4.6 Triglycerides 156 Cholesterol 151 LDL Cholesterol, Calc 90 HDL Cholesterol 30 Vitamin B12 Folate TSH 0.98 11/15/20 11:40 WBC RBC Hgb Hct MCV MCH MCHC RDW Plt Count MPV Immature Gran % (Auto) Neut % (Auto) Lymph % (Auto) [place] % (Auto) Eos % (Auto) Baso % (Auto) Lymph # (Auto) [place] # (Auto) Eos # (Auto) Baso # (Auto) Abs Immat Gran (auto) Absolute Neuts (auto) Absolute Nucleated RBC Nucleated RBC % (auto) Sodium Potassium Chloride Carbon Dioxide Anion Gap BUN Creatinine Estim Creat Clear Calc Estimated GFR Random Glucose Estimat Average Glucose Hemoglobin A1c % Calcium Total Bilirubin AST ALT Alkaline Phosphatase Total Protein Albumin Triglycerides Cholesterol LDL Cholesterol, Calc HDL Cholesterol Vitamin B12 429 Folate 8.0 TSH Medications Medications Current Medications Generic Name Dose Route Start Last Admin Trade Name Freq PRN Reason Stop Dose Admin Acetaminophen 650 mg 11/07/20 21:37 11/14/20 11:44 Acetaminophen 325 Mg Tablet PO 650 mg Q6H PRN Administration Headache/Pain Mild Scale (1-3) Al Hydroxide/Mg Hydroxide 30 ml 11/07/20 21:37 Magnesium Hydrox/Alum Hydrox 30 Ml Oral.Susp PO Q6H PRN Heartburn/Nausea Benztropine Mesylate 0.5 mg 11/07/20 17:06 Benztropine Mesylate 0.5 Mg Tablet PO TID PRN Extrapyramidal Effects Haloperidol 5 mg 11/08/20 16:58 11/15/20 14:55 Haloperidol 5 Mg Tablet PO 5 mg TID PRN Administration anxiety, agitation Hydroxyzine HCl 25 mg 11/07/20 21:37 11/14/20 21:08 Hydroxyzine Hcl 25 Mg Tablet PO 25 mg BEDTIME PRN Administration Anxiety Ibuprofen 600 mg 11/07/20 17:06 Ibuprofen 600 Mg Tablet PO Q6H PRN Pain, Moderate (Pain Scale 4-6 Magnesium Hydroxide 30 ml 11/07/20 21:37 Milk Of Magnesia 30 Ml Oral.Susp PO DAILY PRN Constipation Olanzapine 20 mg 11/07/20 21:00 11/14/20 20:42 Olanzapine 10 Mg Tablet PO 20 mg BEDTIME HERON Administration Trazodone HCl 50 mg 11/07/20 21:37 Trazodone Hcl 50 Mg Tablet PO BEDTIME PRN Insomnia Allergies Allergies Allergy/AdvReac Type Severity Reaction Status Date / Time Penicillins [PCN] Allergy Unknown UNKNOWN Verified 10/05/20 19:44 Assessment & Plan Assessment & Plan (1) Schizoaffective disorder: Qualifiers: Schizoaffective disorder type: bipolar Qualified Code(s): F25.0 - Schizoaffective disorder, bipolar type Status: Acute Code(s): F25.9 - Schizoaffective disorder, unspecified Assessment and Plan: -Continue current regime. At this time pt declines further changes to address depression and negative sx. Greater than 50% of the session was spent on counseling and/or coordination of care Patient educated on: medication risk/benefits and therapeutic strategies Informed Consent: further education needed Reason for contiued inpatient stay Substantial Risk for: harm to self, harm to others, inability to function, rapid decompensation and med/psych decompensation
[2020-11-15 18:00] VITALS: BP 137/84; PULSE 73; TEMP 31.1
[2020-11-15] MEDS: OLANZapine 10 MG TABLET 20 MG PO (21:26)
[2020-11-15] MEDS: traZODone HCL 50 MG TABLET PO (21:28)
--- NOTE | 2020-11-16 11:46 | P.PNPSI_ITS ---
Subjective Subjective Date of Service: 11/16/20 Reason For Visit: Psychosis Subjective Notes: Conditional Voluntary Interim History: REports his only problem is he keeps getting put in hospital - doesn't understand it feels he doesn't need change in medication or change in antipsychotics I keep trying to get off them Medication Compliance: Yes Side effects from medications: Yes (tiredness) Attending Groups: No Review of Systems Reports behavioral changes and Reports confusion Psychiatric: Reports behavioral changes and Reports confusion Mental Status Exam Mental Status Exam Narrative: poor eye contact Patient Appearance: Well Grooomed Patient Orientation: Person, Place, Time and Situation Level of Consciousness: Awake Patient Behavior: Guarded and Resistive to Care Mood Description: Apathetic Affect Description: Blunted Patient Cognition Impaired: No Ability to Follow Directions: Good Speech Pattern: Clear Delusions: Paranoid Ideation Thought Process: Evasive Thought Content: positive for Slowed Thinking Depressive Symptoms: Diff. Making Decisions Abnormal Motor Activity Signs and Symptoms: Restlessness Judgement: Poor Diagnostics Vital Signs (24Hr): Vital Signs - 24 hr 11/15/20 18:00 Temperature 88 F L Pulse Rate 73 Blood Pressure 137/84 Body Mass Index 22.7 Labs Results: 11/15/20 11:40 11/15/20 11:40 Labs: Laboratory Results - last 48 hr 11/15/20 11/15/20 11/15/20 11:40 11:40 11:40 WBC 5.7 RBC 4.95 Hgb 14.8 Hct 44.5 MCV 89.9 MCH 29.9 MCHC 33.3 RDW 12.1 Plt Count 209 MPV 9.8 Immature Gran % (Auto) 0.4 Neut % (Auto) 53.8 Lymph % (Auto) 35.0 [place] % (Auto) 8.5 Eos % (Auto) 1.9 Baso % (Auto) 0.4 Lymph # (Auto) 2.0 [place] # (Auto) 0.5 Eos # (Auto) 0.1 Baso # (Auto) 0.0 Abs Immat Gran (auto) 0.02 Absolute Neuts (auto) 3.1 Absolute Nucleated RBC 0.000 Nucleated RBC % (auto) 0.0 Sodium 141 Potassium 4.4 D Chloride 106 Carbon Dioxide 28 Anion Gap 11 L BUN 12 Creatinine 0.82 Estim Creat Clear Calc 130.3 Estimated GFR > 60 Random Glucose 97 Estimat Average Glucose 94 Hemoglobin A1c % 4.9 Calcium 9.1 Total Bilirubin 0.2 AST 17 ALT 19 Alkaline Phosphatase 77 Total Protein 6.8 Albumin 4.6 Triglycerides 156 Cholesterol 151 LDL Cholesterol, Calc 90 HDL Cholesterol 30 Vitamin B12 Folate TSH 0.98 11/15/20 11:40 WBC RBC Hgb Hct MCV MCH MCHC RDW Plt Count MPV Immature Gran % (Auto) Neut % (Auto) Lymph % (Auto) [place] % (Auto) Eos % (Auto) Baso % (Auto) Lymph # (Auto) [place] # (Auto) Eos # (Auto) Baso # (Auto) Abs Immat Gran (auto) Absolute Neuts (auto) Absolute Nucleated RBC Nucleated RBC % (auto) Sodium Potassium Chloride Carbon Dioxide Anion Gap BUN Creatinine Estim Creat Clear Calc Estimated GFR Random Glucose Estimat Average Glucose Hemoglobin A1c % Calcium Total Bilirubin AST ALT Alkaline Phosphatase Total Protein Albumin Triglycerides Cholesterol LDL Cholesterol, Calc HDL Cholesterol Vitamin B12 429 Folate 8.0 TSH Medications Medications Current Medications Generic Name Dose Route Start Last Admin Trade Name Freq PRN Reason Stop Dose Admin Acetaminophen 650 mg 11/07/20 21:37 11/14/20 11:44 Acetaminophen 325 Mg Tablet PO 650 mg Q6H PRN Administration Headache/Pain Mild Scale (1-3) Al Hydroxide/Mg Hydroxide 30 ml 11/07/20 21:37 Magnesium Hydrox/Alum Hydrox 30 Ml Oral.Susp PO Q6H PRN Heartburn/Nausea Benztropine Mesylate 0.5 mg 11/07/20 17:06 Benztropine Mesylate 0.5 Mg Tablet PO TID PRN Extrapyramidal Effects Haloperidol 5 mg 11/08/20 16:58 11/15/20 14:55 Haloperidol 5 Mg Tablet PO 5 mg TID PRN Administration anxiety, agitation Hydroxyzine HCl 25 mg 11/07/20 21:37 11/14/20 21:08 Hydroxyzine Hcl 25 Mg Tablet PO 25 mg BEDTIME PRN Administration Anxiety Ibuprofen 600 mg 11/07/20 17:06 Ibuprofen 600 Mg Tablet PO Q6H PRN Pain, Moderate (Pain Scale 4-6 Magnesium Hydroxide 30 ml 11/07/20 21:37 Milk Of Magnesia 30 Ml Oral.Susp PO DAILY PRN Constipation Olanzapine 20 mg 11/07/20 21:00 11/15/20 21:26 Olanzapine 10 Mg Tablet PO 20 mg BEDTIME HERON Administration Trazodone HCl 50 mg 11/07/20 21:37 11/15/20 21:28 Trazodone Hcl 50 Mg Tablet PO 50 mg BEDTIME PRN Administration Insomnia Allergies Allergies Allergy/AdvReac Type Severity Reaction Status Date / Time Penicillins [PCN] Allergy Unknown UNKNOWN Verified 10/05/20 19:44 Assessment & Plan Assessment & Plan (1) Schizoaffective disorder: Qualifiers: Schizoaffective disorder type: bipolar Qualified Code(s): F25.0 - Schizoaffective disorder, bipolar type Status: Acute Code(s): F25.9 - Schizoaffective disorder, unspecified Assessment and Plan: on olanzapine not willing to change antipsychotics but not clear olanzapine helping him stay outside hospital in his life- Greater than 50% of the session was spent on counseling and/or coordination of care
[2020-11-16 11:59] VITALS: BMI 30.2
[2020-11-16] MEDS: OLANZapine 10 MG TABLET 20 MG PO (20:34)
[2020-11-17 13:00] VITALS: BP 133/82; PULSE 66; TEMP 36.8; O2SAT 96
--- NOTE | 2020-11-17 13:25 | P.PNPSI_ITS ---
Subjective Subjective Date of Service: 11/17/20 Reason For Visit: Psychosis Review of Systems Reports behavioral changes and Reports confusion Psychiatric: Reports behavioral changes and Reports confusion Mental Status Exam Mental Status Exam Narrative: lying in bed - not interested in engaging I don't care Patient Appearance: Fatigued Patient Orientation: Person, Place, Time and Situation Level of Consciousness: Drowsy Patient Behavior: Passive, Resistive to Care and Poor Eye Contact Mood Description: Apathetic Affect Description: Blunted Patient Cognition Impaired: No Ability to Follow Directions: Fair Speech Pattern: Mumbled Hallucinations: None Delusions: Paranoid Ideation Thought Process: Evasive Thought Content: positive for [place]overty of Content and positive for Thought Blocking Depressive Symptoms: Increased Anxiety, Diff. Making Decisions and Increased Irritability Judgement: Poor Diagnostics Vital Signs (24Hr): Body Mass Index 30.2 Labs Results: 11/15/20 11:40 11/15/20 11:40 Labs: Laboratory Results - last 48 hr 11/15/20 11/15/20 11:40 11:40 Vitamin B12 429 Folate 8.0 TSH 0.98 Medications Medications Current Medications Generic Name Dose Route Start Last Admin Trade Name Freq PRN Reason Stop Dose Admin Acetaminophen 650 mg 11/07/20 21:37 11/14/20 11:44 Acetaminophen 325 Mg Tablet PO 650 mg Q6H PRN Administration Headache/Pain Mild Scale (1-3) Al Hydroxide/Mg Hydroxide 30 ml 11/07/20 21:37 Magnesium Hydrox/Alum Hydrox 30 Ml Oral.Susp PO Q6H PRN Heartburn/Nausea Benztropine Mesylate 0.5 mg 11/07/20 17:06 Benztropine Mesylate 0.5 Mg Tablet PO TID PRN Extrapyramidal Effects Haloperidol 5 mg 11/08/20 16:58 11/15/20 14:55 Haloperidol 5 Mg Tablet PO 5 mg TID PRN Administration anxiety, agitation Hydroxyzine HCl 25 mg 11/07/20 21:37 11/14/20 21:08 Hydroxyzine Hcl 25 Mg Tablet PO 25 mg BEDTIME PRN Administration Anxiety Ibuprofen 600 mg 11/07/20 17:06 Ibuprofen 600 Mg Tablet PO Q6H PRN Pain, Moderate (Pain Scale 4-6 Magnesium Hydroxide 30 ml 11/07/20 21:37 Milk Of Magnesia 30 Ml Oral.Susp PO DAILY PRN Constipation Olanzapine 20 mg 11/07/20 21:00 11/16/20 20:34 Olanzapine 10 Mg Tablet PO 20 mg BEDTIME HERON Administration Trazodone HCl 50 mg 11/07/20 21:37 11/15/20 21:28 Trazodone Hcl 50 Mg Tablet PO 50 mg BEDTIME PRN Administration Insomnia Allergies Allergies Allergy/AdvReac Type Severity Reaction Status Date / Time Penicillins [PCN] Allergy Unknown UNKNOWN Verified 10/05/20 19:44 Assessment & Plan Assessment & Plan (1) Schizoaffective disorder: Qualifiers: Schizoaffective disorder type: bipolar Qualified Code(s): F25.0 - Schizoaffective disorder, bipolar type Status: Acute Code(s): F25.9 - Schizoaffective disorder, unspecified Assessment and Plan: minimally responsive to medication , but not agreeing to medication changePatient educated on: medication ri sk/benefits and therapeutic strategies Informed Consent: further education needed Reason for contiued inpatient stay Substantial Risk for: harm to self, harm to others, inability to function, rapid decompensation and med/psych decompensation Greater than 50% of the session was spent on counseling and/or coordination of care
[2020-11-17] MEDS: OLANZapine 10 MG TABLET 20 MG PO (20:27)
[2020-11-17] MEDS: hydrOXYzine HCL 25 MG TABLET PO (20:30)
[2020-11-18 12:20] VITALS: BP 145/84; PULSE 78; TEMP 36.7; O2SAT 98
--- NOTE | 2020-11-18 13:02 | HO.PSYCHPN ---
Subjective Subjective Date of Service: 11/18/20 Reason For Visit: Psychosis Subjective Notes: 3 Day Interim History: co boredom on the unit, tired of being here, doesn't have sense of why he needs to be here- Medication Compliance: Yes Side effects from medications: No Attending Groups: Intermittent Review of Systems Acute medical concerns: No Medical Review of Systems: unchanged Review of Systems Reports behavioral changes and Reports confusion Psychiatric: Reports behavioral changes and Reports confusion Mental Status Exam Mental Status Exam Narrative: fairly groomed, minimally engaged Patient Orientation: Person, Place and Time Level of Consciousness: Awake and Appropriate Patient Behavior: Passive, Restless, Resistive to Care and Poor Eye Contact Mood Description: Apathetic Affect Description: Suspicious and Constricted Patient Cognition Impaired: No Ability to Follow Directions: Fair Speech Pattern: Rambling and Mumbled Hallucinations: None Thought Process: Evasive Thought Content: positive for [place] and positive for Poverty of Content Judgement: Fair (-poor) Diagnostics Vital Signs (24Hr): Vital Signs - 24 hr 11/18/20 12:20 Temperature 98.1 F Pulse Rate 78 Blood Pressure 145/84 H Pulse Oximetry 98 Body Mass Index 30.2 Labs Results: 11/15/20 11:40 11/15/20 11:40 Medications Medications Current Medications Generic Name Dose Route Start Last Admin Trade Name Freq PRN Reason Stop Dose Admin Acetaminophen 650 mg 11/07/20 21:37 11/14/20 11:44 Acetaminophen 325 Mg Tablet PO 650 mg Q6H PRN Administration Headache/Pain Mild Scale (1-3) Al Hydroxide/Mg Hydroxide 30 ml 11/07/20 21:37 Magnesium Hydrox/Alum Hydrox 30 Ml Oral.Susp PO Q6H PRN Heartburn/Nausea Benztropine Mesylate 0.5 mg 11/07/20 17:06 Benztropine Mesylate 0.5 Mg Tablet PO TID PRN Extrapyramidal Effects Haloperidol 5 mg 11/08/20 16:58 11/15/20 14:55 Haloperidol 5 Mg Tablet PO 5 mg TID PRN Administration anxiety, agitation Hydroxyzine HCl 25 mg 11/07/20 21:37 11/17/20 20:30 Hydroxyzine Hcl 25 Mg Tablet PO 25 mg BEDTIME PRN Administration Anxiety Ibuprofen 600 mg 11/07/20 17:06 Ibuprofen 600 Mg Tablet PO Q6H PRN Pain, Moderate (Pain Scale 4-6 Magnesium Hydroxide 30 ml 11/07/20 21:37 Milk Of Magnesia 30 Ml Oral.Susp PO DAILY PRN Constipation Olanzapine 20 mg 11/07/20 21:00 11/17/20 20:27 Olanzapine 10 Mg Tablet PO 20 mg BEDTIME HERON Administration Trazodone HCl 50 mg 11/07/20 21:37 11/15/20 21:28 Trazodone Hcl 50 Mg Tablet PO 50 mg BEDTIME PRN Administration Insomnia Allergies Allergies Allergy/AdvReac Type Severity Reaction Status Date / Time Penicillins [PCN] Allergy Unknown UNKNOWN Verified 10/05/20 19:44 Assessment & Plan Assessment & Plan (1) Schizoaffective disorder: Qualifiers: Schizoaffective disorder type: bipolar Qualified Code(s): F25.0 - Schizoaffective disorder, bipolar type Status: Acute Code(s): F25.9 - Schizoaffective disorder, unspecified Assessment and Plan: only agrees to olanzapine 20mg, ongoing negative symptoms that he has no insight about Greater than 50% of the session was spent on counseling and/or coordination of care
[2020-11-18] MEDS: OLANZapine 10 MG TABLET 20 MG PO (20:09)
[2020-11-19 10:23] VITALS: BP 122/77; PULSE 77; TEMP 36.9; O2SAT 96
[2020-11-19] MEDS: Acetaminophen 325 MG TABLET 650 MG PO (16:16)
[2020-11-19 16:38] VITALS: BP 125/63; PULSE 86; RESP 16; TEMP 37.1; O2SAT 97
--- NOTE | 2020-11-19 18:52 | HO.PSYCHPN ---
Subjective Subjective Date of Service: 11/29/20 Reason For Visit: Psychosis Subjective Notes: 3 Day (11/21/20) Interim History: Pt discussed discharge. He is willing to return to his detention. He discussed their efforts to help him obtain independent housing with a room-mate. He reviewed his options-several friends, however, prefers his father be his room-mate. Wanting to discuss this with his residential team. Discussed medications-reports by history mood stabilizers have helped, he identifies Gabapentin at 200 mg daily. Review of options-will add Gabapentin 100 mg bid and Trileptal trial. Discussed 3-day notice-states he would give this some thought as when he signed it he was angry about being in patient for New Year's. He has reconsidered, but would still like discharge to work with his team on independent housing process. Review of Systems Review of Systems Yes all other systems are reviewed and are negative (denies symptoms of concern) Reports behavioral changes and Reports confusion Psychiatric: Reports behavioral changes, Reports confusion and Reports auditory hallucinations (observed x 2, in the hallway, self-dialoguing, ?responding to stimuli-denie) Mental Status Exam Mental Status Exam Patient Appearance: Appropriate Patient Orientation: Person, Place and Situation Level of Consciousness: Alert Patient Behavior: Cooperative Mood Description: Constricted Affect Description: Constricted Patient Cognition Impaired: No Ability to Follow Directions: Good Speech Pattern: Spontaneous Speech Memory Description: Intact Hallucinations: None Thought Process: Linear Thought Content: positive for [place] and positive for Circumstantial Judgement: Fair Diagnostics Vital Signs (24Hr): Vital Signs - 24 hr 11/19/20 10:23 11/19/20 16:38 Temperature 98.4 F 98.7 F Pulse Rate 77 86 Respiratory Rate 16 Blood Pressure 122/77 125/63 Pulse Oximetry 96 97 Body Mass Index 30.2 Labs Results: 11/15/20 11:40 11/15/20 11:40 Medications Medications Current Medications Generic Name Dose Route Start Last Admin Trade Name Freq PRN Reason Stop Dose Admin Acetaminophen 650 mg 11/07/20 21:37 11/19/20 16:16 Acetaminophen 325 Mg Tablet PO 650 mg Q6H PRN Administration Headache/Pain Mild Scale (1-3) Al Hydroxide/Mg Hydroxide 30 ml 11/07/20 21:37 Magnesium Hydrox/Alum Hydrox 30 Ml Oral.Susp PO Q6H PRN Heartburn/Nausea Benztropine Mesylate 0.5 mg 11/07/20 17:06 Benztropine Mesylate 0.5 Mg Tablet PO TID PRN Extrapyramidal Effects Gabapentin 100 mg 11/19/20 21:00 Gabapentin 100 Mg Capsule PO BID HERON Haloperidol 5 mg 11/08/20 16:58 11/15/20 14:55 Haloperidol 5 Mg Tablet PO 5 mg TID PRN Administration anxiety, agitation Hydroxyzine HCl 25 mg 11/07/20 21:37 11/17/20 20:30 Hydroxyzine Hcl 25 Mg Tablet PO 25 mg BEDTIME PRN Administration Anxiety Ibuprofen 600 mg 11/07/20 17:06 Ibuprofen 600 Mg Tablet PO Q6H PRN Pain, Moderate (Pain Scale 4-6 Magnesium Hydroxide 30 ml 11/07/20 21:37 Milk Of Magnesia 30 Ml Oral.Susp PO DAILY PRN Constipation Olanzapine 20 mg 11/07/20 21:00 11/18/20 20:09 Olanzapine 10 Mg Tablet PO 20 mg BEDTIME HERON Administration Oxcarbazepine 300 mg 11/19/20 21:00 Oxcarbazepine 300 Mg Tablet PO BID HERON Trazodone HCl 50 mg 11/07/20 21:37 11/15/20 21:28 Trazodone Hcl 50 Mg Tablet PO 50 mg BEDTIME PRN Administration Insomnia Allergies Allergies Allergy/AdvReac Type Severity Reaction Status Date / Time Penicillins [PCN] Allergy Unknown UNKNOWN Verified 10/05/20 19:44 Assessment & Plan Assessment & Plan (1) Schizoaffective disorder: Qualifiers: Schizoaffective disorder type: bipolar Qualified Code(s): F25.0 - Schizoaffective disorder, bipolar type Status: Acute Code(s): F25.9 - Schizoaffective disorder, unspecified Assessment and Plan: -Trileptal 300 mg bid -Gabapentin 100 mg bid Greater than 50% of the session was spent on counseling and/or coordination of care
[2020-11-19] MEDS: OLANZapine 10 MG TABLET 20 MG PO (20:35)
[2020-11-19] MEDS: OXcarbazepine 300 MG TABLET PO (20:35)
[2020-11-19] MEDS: Gabapentin 100 MG CAPSULE PO (20:35)
[2020-11-20] MEDS: Gabapentin 100 MG CAPSULE PO (09:27)
[2020-11-20] MEDS: OXcarbazepine 300 MG TABLET PO (09:28)
--- NOTE | 2020-11-20 12:56 | P.DS_ITS ---
DS: Providers Provider Date of admission: 11/07/20 20:46 Primary care physician: Rena Aguilera NP Admitting clinician: Sherlyn Kam Attending physician on admission: Leandro Mishra Attending physician on discharge: Leandro Mishra Discharging clinician: Sherlyn Kam DS: Diagnosis Discharge Diagnosis (1) Schizoaffective disorder: Status: Acute DS: Medications Discharge Medications Home Medications: Previous Rx's Medication Instructions Recorded benztropine 0.5 mg PO TID PRN #30 tab 11/20/20 gabapentin 100 mg PO BID #60 cap 11/20/20 haloperidol 5 mg PO TID PRN #42 tab 11/20/20 olanzapine [Zyprexa] 20 mg PO BEDTIME #30 tab 11/20/20 oxcarbazepine 300 mg PO BID #60 tab 11/20/20 trazodone 50 mg PO BEDTIME PRN #30 tab 11/20/20 Discharge Plan Discharge Anticipated Discharge Date/Time: 11/20/20 16:00 Patient Disposition: Xfer Other Referrals: Diaz Gannon MD [Physician] - 11/22/20 9:00 am (Telehealth) Иван Howe MD [Physician] - (WAITING FOR CALL BACK WITH APPOINTMENT, OR OFFICE WILL CALL PATIENT AFTER DISCHARGE) Discharge Medications: New haloperidol 5 mg Tablet 5 mg PO TID PRN (Reason: anxiety, agitation) Qty: 42 RF: 0 trazodone 50 mg Tablet 50 mg PO BEDTIME PRN (Reason: Insomnia) Qty: 30 RF: 0 oxcarbazepine 300 mg Tablet 300 mg PO BID Qty: 60 RF: 0 gabapentin 100 mg Capsule 100 mg PO BID Qty: 60 RF: 0 Continued benztropine 0.5 mg Tablet 0.5 mg PO TID PRN (Reason: Extrapyramidal Effects) Qty: 30 RF: 0 olanzapine [Zyprexa] 20 mg tablet 20 mg PO BEDTIME Qty: 30 RF: 0 Discontinued ibuprofen 600 mg Tablet 600 mg PO Q6H PRN (Reason: Pain, Moderate (Pain Scale 4-6) Qty: 30 RF: 0 Discharge Orders: Discharge Order (Routine); Ordered 11/20/20 Ordered By: Sherlyn Kam Diet: advance to usual diet Activity on Discharge: As tolerated Stand Alone Forms: Community Support Discharge Date/Time: 11/20/20 13:04 Print Language: [place] Visit Report Forms: Patient Portal Discharge page Care Plan Goals: Mood stabilization Achieving your goal of increased independence Health Concerns: No current concerns Plan of Treatment: Follow up with your therapist and medication management providers Do not use substances as it destabilizes your mood and thought process Take your medications daily. Mental Status Exam Mental Status Exam Patient Appearance: Appropriate Patient Orientation: Person, Place, Time and Situation Level of Consciousness: Alert Patient Behavior: Cooperative Mood Description: Calm Affect Description: Calm Patient Cognition Impaired: No Ability to Follow Directions: Good Speech Pattern: Spontaneous Speech Memory Description: Intact Hallucinations: None Delusions: Not Present Thought Process: Intact Thought Content: positive for [place] and positive for Circumstantial Judgement: Fair Data Data Completed and Pending Completed studies during hospitalization [Text1]: 11/15/20 11/15/20 11/15/20 11:40 11:40 11:40 WBC 5.7 RBC 4.95 Hgb 14.8 Hct 44.5 MCV 89.9 MCH 29.9 MCHC 33.3 RDW 12.1 Plt Count 209 MPV 9.8 Immature Gran % (Auto) 0.4 Neut % (Auto) 53.8 Lymph % (Auto) 35.0 [place] % (Auto) 8.5 Eos % (Auto) 1.9 Baso % (Auto) 0.4 Lymph # (Auto) 2.0 [place] # (Auto) 0.5 Eos # (Auto) 0.1 Baso # (Auto) 0.0 Abs Immat Gran (auto) 0.02 Absolute Neuts (auto) 3.1 Absolute Nucleated RBC 0.000 Nucleated RBC % (auto) 0.0 Sodium 141 Potassium 4.4 D Chloride 106 Carbon Dioxide 28 Anion Gap 11 L BUN 12 Creatinine 0.82 Estim Creat Clear Calc 130.3 Estimated GFR > 60 Random Glucose 97 Estimat Average Glucose 94 Hemoglobin A1c % 4.9 Calcium 9.1 Total Bilirubin 0.2 AST 17 ALT 19 Alkaline Phosphatase 77 Total Protein 6.8 Albumin 4.6 Triglycerides 156 Cholesterol 151 LDL Cholesterol, Calc 90 HDL Cholesterol 30 Vitamin B12 Folate TSH 0.98 11/15/20 11:40 WBC RBC Hgb Hct MCV MCH MCHC RDW Plt Count MPV Immature Gran % (Auto) Neut % (Auto) Lymph % (Auto) [place] % (Auto) Eos % (Auto) Baso % (Auto) Lymph # (Auto) [place] # (Auto) Eos # (Auto) Baso # (Auto) Abs Immat Gran (auto) Absolute Neuts (auto) Absolute Nucleated RBC Nucleated RBC % (auto) Sodium Potassium Chloride Carbon Dioxide Anion Gap BUN Creatinine Estim Creat Clear Calc Estimated GFR Random Glucose Estimat Average Glucose Hemoglobin A1c % Calcium Total Bilirubin AST ALT Alkaline Phosphatase Total Protein Albumin Triglycerides Cholesterol LDL Cholesterol, Calc HDL Cholesterol Vitamin B12 429 Folate 8.0 TSH DS: Summary Status at Discharge Cognitive/behavioral status at discharge: Alert, oriented, calm, mood and affect constricted. Feeling ready to discharge and work with his program regarding more independent living options. Functional status at discharge: independent ambulation Overall status at discharge: patient is progressing back to baseline Time Spent with Patient Time attestation: Total time spent providing and/or coordinating discharge services: Time spent: Greater than 30 minutes Specific discharge activities: Return to [facility]. Follow up with out patient team. [place] is wanting to work with his team on more independent living
== END 2020-11-20 13:04 | disposition other institution (70) | DRG 750 ==
LOC: HO.ED 11-07 20:09 → HO.PM5 11-07 20:58
PROVIDERS: Clinical Nurse Specialist Psychiatric/Mental Health, Adult; Emergency Medicine; Nurse Practitioner Family; Admitting Provider Psychiatry & Neurology Psychiatry; Emergency Provider Emergency Medicine; Visit Provider Psychiatry & Neurology Psychiatry
DX: F25.0 Schizoaffective disorder, bipolar type (principal); Z91.14 Patient's other noncompliance with medication regimen; F43.10 Post-traumatic stress disorder, unspecified; Z20.828 Contact with and (suspected) exposure to other viral communicable diseases; Z79.899 Other long term (current) drug therapy
CPT/HCPCS: 36415; 80053; 80061; 80307; 82607; 82746; 83036; 84443; 85025; 87635; 99223; 99232; 99233; 99239; 99285

== ENCOUNTER 2020-11-28 16:44 | Inpatient (IN) | payer OTHER, SELFPAY ==
[2020-11-28 16:58] VITALS: BP 160/104; PULSE 85; RESP 18; TEMP 36.8; O2SAT 98; BMI 41.0
[2020-11-28 17:20] VITALS: BP 160/104; PULSE 85; RESP 18; TEMP 36.8; O2SAT 98
--- NOTE | 2020-11-28 17:31 | ED_ITS ---
HPI - Psych General Chief Complaint: Psychiatric Symptoms Stated Complaint: SECTION 12 Time Seen by Provider: 11/28/20 16:59 Source: patient and EMS Mode of arrival: EMS History of Present Illness HPI Narrative: 25-year-old male with a past medical history PTSD, schizophrenia brought to ED on Section 12 from community for medication noncompliance. Per halfway patient has been refusing all of his medications for the past 4 days. Patient denies missing any medications/refusing. Of note patient was recently admitted to at our facility for similar symptoms. Patient denies SI/HI, ETOH/drug use, visual/auditory hallucinations, CP/SOB, abdominal pain, nausea/vomiting Related Data Previous Rx's Medication Instructions Recorded benztropine 0.5 mg PO TID PRN #30 tab 11/20/20 gabapentin 100 mg PO BID #60 cap 11/20/20 haloperidol 5 mg PO TID PRN #42 tab 11/20/20 olanzapine [Zyprexa] 20 mg PO BEDTIME #30 tab 11/20/20 oxcarbazepine 300 mg PO BID #60 tab 11/20/20 trazodone 50 mg PO BEDTIME PRN #30 tab 11/20/20 Allergies Allergy/AdvReac Type Severity Reaction Status Date / Time Penicillins [PCN] Allergy Unknown UNKNOWN Verified 10/05/20 19:44 Review of Systems Review of Systems: Constitutional: No Weight loss, No Fever, No Chills Cardiovascular: No Chest Pain, No SOB Respiratory: No Cough, No Sputum, No Wheezing Gastrointestinal: No Nausea, No Vomiting, No Diarrhea, No Constipation, No Abdominal pain Skin: No Skin Lesions, No rash Psych: No Anxiety/Panic, No Depression, No SI/HI/AH/VH, No Social Issues Yes all other systems are reviewed and are negative [facility], [facility] Past Medical History Attestation statement: The following information was validated with the patient. Medical History PTSD (post-traumatic stress disorder) Schizophrenia Social History Social History Household Members: None Housing: Other Alcohol intake: current Smoking Status: Unknown if ever smoked Tobacco Type: Cigarette Packs Per Day: 4 Cigarettes Per Day: 80.0 Years Smoked: 8 Second Hand Smoke Exposure: No Use of substances other than those prescribed or required for medical reasons: Yes Substance Use Type: Marijuana Substance Use Frequency: Chronic Longstanding Last Used Substance: Unknown Advance Directives: No Advance Directives Information Provided: Yes service: No Sexual orientation: Straight/Heterosexual Physical Exam Vital Signs: Vital Signs: Last Vital Signs Temp 98.3 F 11/28/20 17:20 Pulse 85 11/28/20 17:20 Resp 18 11/28/20 17:20 BP 160/104 H 11/28/20 17:20 Pulse Ox 98 11/28/20 17:20 Body Mass Index 41.0 Const: General: cooperative, comfortable, no acute distress and anxious Orientation/consciousness: patient oriented x3 Limitations: no limitations HENMT: Head: Yes normal to inspection Ears: hearing grossly normal bilaterally General nose exam: Normal external nose present Face and sin us: Yes normal facial exam Eyes: General: appearance normal, both eyes and all related structures Pupils: Equal, round and reactive pupils present EOM: EOMs intact bilaterally Neck: Neck: Yes normal visual inspection and Yes no meningeal signs Resp: Effort & Inspection: normal respiratory effort Auscultation: clear to auscultation bilaterally, no rales, no rhonchi and no wheezes Cardio: Rate: regular rate Heart sounds: S1 normal heart sound present and S2 normal heart sound present GI: Inspection: Yes normal to inspection Palpation (GI): Soft to palpation, nontender, no guarding and not rigid Skin: Rashes: no rashes Wounds: no wounds Neuro: General: patient oriented x3 and no meningeal signs Cranial nerves: Yes Equal, round and reactive pupils present Gait exam (Neuro): Normal gait present Extrem: General: Yes normal to inspection Psych: Affect: Labile affect present and Irritable affect present Course Course Course Narrative: * Ethanol negative, COVID-19 negative * -2100--ED care transferred to [facility] pending [facility] evaluation MDM - Psych MDM Narrative Medical decision making narrative: 25-year-old male with a past medical history PTSD, schizophrenia brought to ED on Section 12 from community for medication noncompliance. On exam hypertensive, anxious/irritable, NAD/nontoxic. Concern for medication noncompliance. Per staff patient likes to abuse ETOH during medication noncompliance streaks Plan: ETOH, CH, BHN Lab Data Labs: Lab Results 11/28/20 11/28/20 Range/Units 17:39 17:39 Ethyl Alcohol < 10 mg/dL COVID-19 (JINNY) Negative (Negative) COVID-19 Clin Com See Note Discharge Plan Discharge Clinical Impression: Noncompliance with medications Prescriptions: No Action haloperidol 5 mg Tablet 5 mg PO TID PRN (Reason: anxiety, agitation) Qty: 42 RF: 0 trazodone 50 mg Tablet 50 mg PO BEDTIME PRN (Reason: Insomnia) Qty: 30 RF: 0 oxcarbazepine 300 mg Tablet 300 mg PO BID Qty: 60 RF: 0 gabapentin 100 mg Capsule 100 mg PO BID Qty: 60 RF: 0 benztropine 0.5 mg Tablet 0.5 mg PO TID PRN (Reason: Extrapyramidal Effects) Qty: 30 RF: 0 olanzapine [Zyprexa] 20 mg tablet 20 mg PO BEDTIME Qty: 30 RF: 0
[2020-11-28 18:13] LABS: Ethanol < 10 mg/dL
[2020-11-28 18:14] LABS: COVID-19 Test Negative (Negative)
--- NOTE | 2020-11-28 18:46 | PC.NURSE ---
Cooperative with change attendant. Currently eating dinner, calm, and cooperative. No complaints at this time.
--- NOTE | 2020-11-28 20:28 | PC.NURSE ---
SHASHANK faxed/called/spoke with Bry/confirmed receipt of referral and notified us that patient has been seen in the community, patient is disposition is in-patient bed search, denied distress, sitting in milieu, calm and quiet, will continue to monitor.
[2020-11-28 21:47] VITALS: RESP 16
[2020-11-28] MEDS: OXcarbazepine 300 MG TABLET PO (21:49)
[2020-11-28] MEDS: OLANZapine 10 MG TABLET 20 MG PO (21:49)
--- NOTE | 2020-11-28 21:57 | PC.NURSE ---
Patient in his room, watching TV and snacking, compliant HS PO medication, denied distress, will continue to monitor.
[2020-11-29] VITALS (12 sets, daily range): BP systolic 99–144; BP diastolic 40–79; PULSE 16–91; RESP 16–22; TEMP 36.9; O2SAT 95–98
--- NOTE | 2020-11-29 07:01 | PC.NURSE ---
Report recieved. PT currently sleeping, respirations even and unlabored, in no apparent distress. Breakfast at bedside. Pt is inpatient bedsearch.
--- NOTE | 2020-11-29 12:08 | PC.NURSE ---
Pt punched wall in room, when asked if he needed anything pt responded fuck you hospital bitch Pt offered PRN medication, walked to bathroom then back to his room without responding. PT unwilling to allow this RN to check his hand for injury. Provider notified.
[2020-11-29] MEDS: LORazepam 2 MG/ML VIAL IM (12:19)
[2020-11-29] MEDS: Haloperidol Lactate 5 MG/ML VIAL IM (12:19)
--- NOTE | 2020-11-29 12:29 | PC.NURSE ---
PT continued to escalate, shaking the nurses station window, screaming at staff demanding to leave. Pt offered PRN medicaiton again, pt continued to refuse, security on unit, pt continued yelling at staff. Provider aware, medication ordered, pt refused, verbal support and deescalation ineffective, pt became aggressive with staff. Pt restrained for safety.
--- NOTE | 2020-11-29 14:36 | PC.NURSE ---
Nurse to nurse completed with Conchita ARECHIGA from
--- NOTE | 2020-11-29 15:53 | MHC.CARE ---
Patient signed CV and was escorted to M5 without issue
[2020-11-29] MEDS: OXcarbazepine 300 MG TABLET PO (20:28)
[2020-11-29] MEDS: Gabapentin 100 MG CAPSULE PO (20:28)
--- NOTE | 2020-11-29 23:53 | PC.ADMIT ---
this is one of many admissions for this 25 year old male. legal CV. dx unspecified schizophrenia. was referred to by n after assisted had reported that they were concerned about patient's behavior of not accepting medications, eating poorly and drinking only soda beverages. upon arrival to er was paranoid and assaultive and required restraints. upon arrival to unit patient went to his room and stayed there the entire night. allowed for brief assessment, lying in bed with covers over his head and only offering up quiet and brief responses to questions. pt did accept some of his medications and did eat his hs meal. continues to refuse to give gonzalez. no changes in medical status.
[2020-11-30] MEDS: Acetaminophen 325 MG TABLET 650 MG PO ×2 (08:32→14:32)
[2020-11-30] MEDS: Gabapentin 100 MG CAPSULE PO ×2 (08:33→20:35)
[2020-11-30] MEDS: OXcarbazepine 300 MG TABLET PO ×2 (08:33→20:35)
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
[2020-11-30 18:00] VITALS: BP 117/57; PULSE 70; TEMP 36.8
[2020-12-01] MEDS: Paliperidone ER 6 MG TAB.ER.24 PO (08:21)
[2020-12-01] MEDS: Gabapentin 100 MG CAPSULE PO ×2 (08:21→20:34)
[2020-12-01] MEDS: OXcarbazepine 300 MG TABLET PO ×2 (08:21→20:34)
[2020-12-01 13:14] VITALS: BP 133/81; PULSE 81; TEMP 37.2; O2SAT 98
--- NOTE | 2020-12-01 18:44 | HO.PSYCHPN ---
Subjective Subjective Date of Service: 12/01/20 Reason For Visit: Psychotic agitation Subjective Notes: Conditional Voluntary Interim History: Pt took first dose of Invega. Discussed wanting to consider different programs but will work with current residential program on this. Discussed [facility], [place] [facility]. I want to get my medications in order. Medication Compliance: Yes Side effects from medications: No Attending Groups: Yes Review of Systems Reports behavioral changes Psychiatric: Reports behavioral changes, Reports difficulty concentrating and Reports auditory hallucinations Mental Status Exam Mental Status Exam Patient Appearance: Disheveled Patient Orientation: Person, Place and Situation Level of Consciousness: Sedated Patient Behavior: Appropriate Mood Description: Blunted Affect Description: Blunted Patient Cognition Impaired: No Ability to Follow Directions: Fair Speech Pattern: Spontaneous Speech Memory Description: Intact Hallucinations: Auditory Thought Process: Distracted Thought Content: positive for Circumstantial Abnormal Motor Activity Signs and Symptoms: Restlessness Judgement: Fair Diagnostics Vital Signs (24Hr): Vital Signs - 24 hr 12/01/20 13:14 Temperature 98.9 F Pulse Rate 81 Blood Pressure 133/81 Pulse Oximetry 98 Body Mass Index 41.0 Medications Medications Current Medications Generic Name Dose Route Start Last Admin Trade Name Freq PRN Reason Stop Dose Admin Acetaminophen 650 mg 11/29/20 16:45 11/30/20 14:32 Acetaminophen 325 Mg Tablet PO 650 mg Q6H PRN Administration Headache/Pain Mild Scale (1-3) Al Hydroxide/Mg Hydroxide 30 ml 11/29/20 16:45 Magnesium Hydrox/Alum Hydrox 30 Ml Oral.Susp PO Q6H PRN Heartburn/Nausea Benztropine Mesylate 0.5 mg 11/28/20 21:05 Benztropine Mesylate 0.5 Mg Tablet PO TID PRN Extrapyramidal Effects Gabapentin 100 mg 11/29/20 09:00 12/01/20 08:21 Gabapentin 100 Mg Capsule PO 100 mg BID HERON Administration Haloperidol 5 mg 11/28/20 21:05 Haloperidol 5 Mg Tablet PO TID PRN anxiety, agitation Hydroxyzine HCl 25 mg 11/29/20 16:45 Hydroxyzine Hcl 25 Mg Tablet PO BEDTIME PRN Anxiety Magnesium Hydroxide 30 ml 11/29/20 16:45 Milk Of Magnesia 30 Ml Oral.Susp PO DAILY PRN Constipation Nicotine Polacrilex 2 mg 11/29/20 21:10 Nicotine Polacrilex 2 Mg Gum BUCCAL Q2H PRN Nicotine Cravings Oxcarbazepine 300 mg 11/29/20 09:00 12/01/20 08:21 Oxcarbazepine 300 Mg Tablet PO 300 mg BID HERON Administration Paliperidone 6 mg 12/01/20 09:00 12/01/20 08:21 Paliperidone Er 6 Mg Tab.Er.24 PO 6 mg DAILY HERON Administration Trazodone HCl 50 mg 11/28/20 21:05 Trazodone Hcl 50 Mg Tablet PO BEDTIME PRN Insomnia Allergies Allergies Allergy/AdvReac Type Severity Reaction Status Date / Time Penicillins [PCN] Allergy Unknown UNKNOWN Verified 10/05/20 19:44 Assessment & Plan Assessment & Plan (1) Schizoaffective disorder: Qualifiers: Schizoaffective disorder type: bipolar Qualified Code(s): F25.0 - Schizoaffective disorder, bipolar type Status: Acute Code(s): F25.9 - Schizoaffective disorder, unspecified Assessment and Plan: Compliant with Invega PO initiation thus far. Greater than 50% of the session was spent on counseling and/or coordination of care
[2020-12-01 19:28] VITALS: BP 163/77; PULSE 91; TEMP 36.8
[2020-12-01] MEDS: Acetaminophen 325 MG TABLET 650 MG PO (21:07)
[2020-12-02 06:20] VITALS: BP 119/58; PULSE 49; RESP 16; TEMP 36.6
[2020-12-02] MEDS: OXcarbazepine 300 MG TABLET PO ×2 (08:25→21:37)
[2020-12-02] MEDS: Paliperidone ER 6 MG TAB.ER.24 PO (08:25)
[2020-12-02] MEDS: Gabapentin 100 MG CAPSULE PO ×2 (08:25→21:36)
[2020-12-02 18:00] VITALS: BP 141/72; PULSE 71; TEMP 36.2
--- NOTE | 2020-12-02 18:20 | HO.PSYCHPN ---
Subjective Subjective Date of Service: 12/02/20 Reason For Visit: Psychotic agitation Interim History: Visable on the unit. Self-dialogues at times. Accepting medication and continues to agree to GUERRA. Talks of wanting to return to school when symptoms are better managed. Medication Compliance: Yes Side effects from medications: No Attending Groups: Intermittent Review of Systems Review of Systems Yes all other systems are reviewed and are negative (denies) Reports behavioral changes Psychiatric: Reports behavioral changes, Reports difficulty concentrating, Reports auditory hallucinations, Reports irritability, Reports mood swings and Reports paranoia Mental Status Exam Mental Status Exam Patient Appearance: Disheveled Patient Orientation: Person, Place and Situation Level of Consciousness: Alert Patient Behavior: Talkative, Cooperative and Wandering Mood Description: Constricted Affect Description: Constricted Patient Cognition Impaired: No Ability to Follow Directions: Good Speech Pattern: Spontaneous Speech and Soft-Spoken Memory Description: Intact Hallucinations: Auditory Delusions: Paranoid Ideation Thought Process: Distracted Thought Content: positive for Circumstantial and positive for Tangential Judgement: Fair Diagnostics Vital Signs (24Hr): Vital Signs - 24 hr 12/01/20 19:28 12/02/20 06:20 Temperature 98.3 F 98 F Pulse Rate 91 49 L Respiratory Rate 16 Blood Pressure 163/77 H 119/58 L Body Mass Index 41.0 Medications Medications Current Medications Generic Name Dose Route Start Last Admin Trade Name Freq PRN Reason Stop Dose Admin Acetaminophen 650 mg 11/29/20 16:45 12/01/20 21:07 Acetaminophen 325 Mg Tablet PO 650 mg Q6H PRN Administration Headache/Pain Mild Scale (1-3) Al Hydroxide/Mg Hydroxide 30 ml 11/29/20 16:45 Magnesium Hydrox/Alum Hydrox 30 Ml Oral.Susp PO Q6H PRN Heartburn/Nausea Benztropine Mesylate 0.5 mg 11/28/20 21:05 Benztropine Mesylate 0.5 Mg Tablet PO TID PRN Extrapyramidal Effects Gabapentin 100 mg 11/29/20 09:00 12/02/20 08:25 Gabapentin 100 Mg Capsule PO 100 mg BID HERON Administration Haloperidol 5 mg 11/28/20 21:05 Haloperidol 5 Mg Tablet PO TID PRN anxiety, agitation Hydroxyzine HCl 25 mg 11/29/20 16:45 Hydroxyzine Hcl 25 Mg Tablet PO BEDTIME PRN Anxiety Magnesium Hydroxide 30 ml 11/29/20 16:45 Milk Of Magnesia 30 Ml Oral.Susp PO DAILY PRN Constipation Nicotine Polacrilex 2 mg 11/29/20 21:10 Nicotine Polacrilex 2 Mg Gum BUCCAL Q2H PRN Nicotine Cravings Oxcarbazepine 300 mg 11/29/20 09:00 12/02/20 08:25 Oxcarbazepine 300 Mg Tablet PO 300 mg BID HERON Administration Paliperidone 6 mg 12/01/20 09:00 12/02/20 08:25 Paliperidone Er 6 Mg Tab.Er.24 PO 6 mg DAILY HERON Administration Trazodone HCl 50 mg 11/28/20 21:05 Trazodone Hcl 50 Mg Tablet PO BEDTIME PRN Insomnia Allergies Allergies Allergy/AdvReac Type Severity Reaction Status Date / Time Penicillins [PCN] Allergy Unknown UNKNOWN Verified 10/05/20 19:44 Assessment & Plan Assessment & Plan (1) Schizoaffective disorder: Qualifiers: Schizoaffective disorder type: bipolar Qualified Code(s): F25.0 - Schizoaffective disorder, bipolar type Status: Acute Code(s): F25.9 - Schizoaffective disorder, unspecified Assessment and Plan: Pt reports no SE from day 2 of Invega. Continue to monitor for adverse effects. Greater than 50% of the session was spent on counseling and/or coordination of care
[2020-12-02] MEDS: traZODone HCL 50 MG TABLET PO (21:36)
[2020-12-03] MEDS: OXcarbazepine 300 MG TABLET PO ×2 (08:48→21:11)
[2020-12-03] MEDS: Gabapentin 100 MG CAPSULE PO ×2 (08:48→21:11)
[2020-12-03] MEDS: Paliperidone ER 6 MG TAB.ER.24 PO (08:49)
[2020-12-03] MEDS: Acetaminophen 325 MG TABLET 650 MG PO (13:34)
[2020-12-03 17:17] VITALS: BP 133/78; PULSE 61; TEMP 36.8
--- NOTE | 2020-12-03 18:03 | HO.PSYCHPN ---
Subjective Subjective Date of Service: 12/03/20 Reason For Visit: Psychotic agitation Subjective Notes: Conditional Voluntary Interim History: Discussed not wanting to continue Invega or change to IM Invega. Believes he does not have a psychotic illness and only needs gabapentin. Medication Compliance: Yes Side effects from medications: No Attending Groups: No Review of Systems Reports behavioral changes Psychiatric: Reports behavioral changes, Reports difficulty concentrating, Reports auditory hallucinations, Reports hopelessness, Reports irritability and Reports paranoia Mental Status Exam Mental Status Exam Patient Appearance: Fatigued Patient Orientation: Person, Place and Situation Level of Consciousness: Awake and Alert Patient Behavior: Guarded, Talkative, Suspicious, Resistive to Care and Pacing Mood Description: Suspicious and Withdrawn Affect Description: Suspicious, Withdrawn, Constricted, Depressed, Blunted and Sad Patient Cognition Impaired: Yes Ability to Follow Directions: Fair Speech Pattern: Perseverating, Difficulty Finding Words, Monotone, Spontaneous Speech, Rambling and Soft-Spoken Memory Description: Intact Hallucinations: Auditory Delusions: Being Controlled and Paranoid Ideation Thought Process: Illogical, Distracted and Rumination Thought Content: positive for [place], positive for Circumstantial, positive for Perseveration and positive for Preoccupation Depressive Symptoms: Increased Anxiety, Increased Irritability, Hopelessness and Unhappiness Abnormal Motor Activity Signs and Symptoms: Restlessness Judgement: Poor Diagnostics Vital Signs (24Hr): Vital Signs - 24 hr 12/03/20 17:17 Temperature 98.2 F Pulse Rate 61 Blood Pressure 133/78 Body Mass Index 41.0 Medications Medications Current Medications Generic Name Dose Route Start Last Admin Trade Name Freq PRN Reason Stop Dose Admin Acetaminophen 650 mg 11/29/20 16:45 12/03/20 13:34 Acetaminophen 325 Mg Tablet PO 650 mg Q6H PRN Administration Headache/Pain Mild Scale (1-3) Al Hydroxide/Mg Hydroxide 30 ml 11/29/20 16:45 Magnesium Hydrox/Alum Hydrox 30 Ml Oral.Susp PO Q6H PRN Heartburn/Nausea Benztropine Mesylate 0.5 mg 11/28/20 21:05 Benztropine Mesylate 0.5 Mg Tablet PO TID PRN Extrapyramidal Effects Gabapentin 100 mg 11/29/20 09:00 12/03/20 08:48 Gabapentin 100 Mg Capsule PO 100 mg BID HERON Administration Haloperidol 5 mg 11/28/20 21:05 Haloperidol 5 Mg Tablet PO TID PRN anxiety, agitation Hydroxyzine HCl 25 mg 11/29/20 16:45 Hydroxyzine Hcl 25 Mg Tablet PO BEDTIME PRN Anxiety Magnesium Hydroxide 30 ml 11/29/20 16:45 Milk Of Magnesia 30 Ml Oral.Susp PO DAILY PRN Constipation Nicotine Polacrilex 2 mg 11/29/20 21:10 Nicotine Polacrilex 2 Mg Gum BUCCAL Q2H PRN Nicotine Cravings Oxcarbazepine 300 mg 11/29/20 09:00 12/03/20 08:48 Oxcarbazepine 300 Mg Tablet PO 300 mg BID HERON Administration Paliperidone 6 mg 12/01/20 09:00 12/03/20 08:49 Paliperidone Er 6 Mg Tab.Er.24 PO 6 mg DAILY HERON Administration Trazodone HCl 50 mg 11/28/20 21:05 12/02/20 21:36 Trazodone Hcl 50 Mg Tablet PO 50 mg BEDTIME PRN Administration Insomnia Allergies Allergies Allergy/AdvReac Type Severity Reaction Status Date / Time Penicillins [PCN] Allergy Unknown UNKNOWN Verified 10/05/20 19:44 Assessment & Plan Assessment & Plan (1) Schizoaffective disorder: Qualifiers: Schizoaffective disorder type: bipolar Qualified Code(s): F25.0 - Schizoaffective disorder, bipolar type Status: Acute Code(s): F25.9 - Schizoaffective disorder, unspecified Assessment and Plan: Encouraged pt to consider medication options. Greater than 50% of the session was spent on counseling and/or coordination of care
[2020-12-04 06:00] VITALS: BP 141/75; PULSE 86; TEMP 36.3; O2SAT 94
--- NOTE | 2020-12-04 08:37 | PC.NURSE ---
SUBMITTED 3 DAY NOTICE WHICH IS UP ON 12/07/20Thursday. RUBIA BEASLEY APRN, JON DERAS, AND [employer].
[2020-12-04] MEDS: OXcarbazepine 300 MG TABLET PO ×2 (08:57→20:42)
[2020-12-04] MEDS: Paliperidone ER 6 MG TAB.ER.24 PO (08:58)
[2020-12-04] MEDS: Gabapentin 100 MG CAPSULE PO ×2 (08:58→20:42)
[2020-12-04 10:56] LABS: COVID-19 Test Negative (Negative)
--- NOTE | 2020-12-04 17:54 | HO.PSYCHPN ---
Subjective Subjective Date of Service: 12/04/20 Reason For Visit: Psychotic agitation Subjective Notes: 3 Day Interim History: Visible on the unit, pacing, appears distracted. Three day notice signed. Pt continues to decline GUERRA medication. He is accepting of PO Invega. Medication Compliance: Yes Side effects from medications: No Attending Groups: No Review of Systems Reports behavioral changes Psychiatric: Reports behavioral changes, Reports difficulty concentrating, Reports irritability, Reports anhedonia and Reports paranoia Mental Status Exam Mental Status Exam Patient Appearance: Disheveled Patient Orientation: Person, Place and Situation Level of Consciousness: Alert Patient Behavior: Wandering Mood Description: Flat Affect Description: Flat Patient Cognition Impaired: Yes Ability to Follow Directions: Fair Speech Pattern: Spontaneous Speech Memory Description: Intact Hallucinations: Auditory Delusions: Paranoid Ideation Thought Process: Illogical Thought Content: positive for [place] and positive for Circumstantial Depressive Symptoms: Increased Irritability Judgement: Poor Diagnostics Vital Signs (24Hr): Vital Signs - 24 hr 12/04/20 06:00 Temperature 97.4 F Pulse Rate 86 Blood Pressure 141/75 H Pulse Oximetry 94 Body Mass Index 41.0 Labs Labs: Laboratory Results - last 48 hr 12/04/20 10:08 COVID-19 (JINNY) Negative COVID-19 Clin Com See Note Medications Medications Current Medications Generic Name Dose Route Start Last Admin Trade Name Freq PRN Reason Stop Dose Admin Acetaminophen 650 mg 11/29/20 16:45 12/03/20 13:34 Acetaminophen 325 Mg Tablet PO 650 mg Q6H PRN Administration Headache/Pain Mild Scale (1-3) Al Hydroxide/Mg Hydroxide 30 ml 11/29/20 16:45 Magnesium Hydrox/Alum Hydrox 30 Ml Oral.Susp PO Q6H PRN Heartburn/Nausea Benztropine Mesylate 0.5 mg 11/28/20 21:05 Benztropine Mesylate 0.5 Mg Tablet PO TID PRN Extrapyramidal Effects Gabapentin 100 mg 11/29/20 09:00 12/04/20 08:58 Gabapentin 100 Mg Capsule PO 100 mg BID HERON Administration Haloperidol 5 mg 11/28/20 21:05 Haloperidol 5 Mg Tablet PO TID PRN anxiety, agitation Hydroxyzine HCl 25 mg 11/29/20 16:45 Hydroxyzine Hcl 25 Mg Tablet PO BEDTIME PRN Anxiety Magnesium Hydroxide 30 ml 11/29/20 16:45 Milk Of Magnesia 30 Ml Oral.Susp PO DAILY PRN Constipation Nicotine Polacrilex 2 mg 11/29/20 21:10 Nicotine Polacrilex 2 Mg Gum BUCCAL Q2H PRN Nicotine Cravings Oxcarbazepine 300 mg 11/29/20 09:00 12/04/20 08:57 Oxcarbazepine 300 Mg Tablet PO 300 mg BID HERON Administration Paliperidone 6 mg 12/01/20 09:00 12/04/20 08:58 Paliperidone Er 6 Mg Tab.Er.24 PO 6 mg DAILY HERON Administration Trazodone HCl 50 mg 11/28/20 21:05 12/02/20 21:36 Trazodone Hcl 50 Mg Tablet PO 50 mg BEDTIME PRN Administration Insomnia Allergies Allergies Allergy/AdvReac Type Severity Reaction Status Date / Time Penicillins [PCN] Allergy Unknown UNKNOWN Verified 10/05/20 19:44 Assessment & Plan Assessment & Plan (1) Schizoaffective disorder: Qualifiers: Schizoaffective disorder type: bipolar Qualified Code(s): F25.0 - Schizoaffective disorder, bipolar type Status: Acute Code(s): F25.9 - Schizoaffective disorder, unspecified Assessment and Plan: -Continue current regime. -Three day notice filed by pt. Greater than 50% of the session was spent on counseling and/or coordination of care
[2020-12-04 18:00] VITALS: BP 133/78; PULSE 85; TEMP 36.3
[2020-12-05] MEDS: OXcarbazepine 300 MG TABLET PO ×2 (09:17→22:40)
[2020-12-05] MEDS: Paliperidone ER 6 MG TAB.ER.24 PO (09:17)
[2020-12-05] MEDS: Gabapentin 100 MG CAPSULE PO ×2 (09:17→22:40)
--- NOTE | 2020-12-05 12:27 | HO.PSYCHPN ---
Subjective Subjective Date of Service: 12/05/20 Reason For Visit: Psychotic agitation Review of Systems Reports behavioral changes Psychiatric: Reports behavioral changes Diagnostics Vital Signs (24Hr): Vital Signs - 24 hr 12/04/20 18:00 Temperature 97.3 F Pulse Rate 85 Blood Pressure 133/78 Body Mass Index 41.0 Labs Labs: Laboratory Results - last 48 hr 12/04/20 10:08 COVID-19 ([facility]INNY) Negative COVID-19 Clin Com See Note Medications Medications Current Medications Generic Name Dose Route Start Last Admin Trade Name Freq PRN Reason Stop Dose Admin Acetaminophen 650 mg 11/29/20 16:45 12/03/20 13:34 Acetaminophen 325 Mg Tablet PO 650 mg Q6H PRN Administration Headache/Pain Mild Scale (1-3) Al Hydroxide/Mg Hydroxide 30 ml 11/29/20 16:45 Magnesium Hydrox/Alum Hydrox 30 Ml Oral.Susp PO Q6H PRN Heartburn/Nausea Benztropine Mesylate 0.5 mg 11/28/20 21:05 Benztropine Mesylate 0.5 Mg Tablet PO TID PRN Extrapyramidal Effects Gabapentin 100 mg 11/29/20 09:00 12/05/20 09:17 Gabapentin 100 Mg Capsule PO 100 mg BID HERON Administration Haloperidol 5 mg 11/28/20 21:05 Haloperidol 5 Mg Tablet PO TID PRN anxiety, agitation Hydroxyzine HCl 25 mg 11/29/20 16:45 Hydroxyzine Hcl 25 Mg Tablet PO BEDTIME PRN Anxiety Magnesium Hydroxide 30 ml 11/29/20 16:45 Milk Of Magnesia 30 Ml Oral.Susp PO DAILY PRN Constipation Nicotine Polacrilex 2 mg 11/29/20 21:10 Nicotine Polacrilex 2 Mg Gum BUCCAL Q2H PRN Nicotine Cravings Oxcarbazepine 300 mg 11/29/20 09:00 12/05/20 09:17 Oxcarbazepine 300 Mg Tablet PO 300 mg BID HERON Administration Paliperidone 6 mg 12/01/20 09:00 12/05/20 09:17 Paliperidone Er 6 Mg Tab.Er.24 PO 6 mg DAILY HERON Administration Trazodone HCl 50 mg 11/28/20 21:05 12/02/20 21:36 Trazodone Hcl 50 Mg Tablet PO 50 mg BEDTIME PRN Administration Insomnia Allergies Allergies Allergy/AdvReac Type Severity Reaction Status Date / Time Penicillins [PCN] Allergy Unknown UNKNOWN Verified 10/05/20 19:44 Assessment & Plan Greater than 50% of the session was spent on counseling and/or coordination of care
[2020-12-05] MEDS: Acetaminophen 325 MG TABLET 650 MG PO (15:24)
--- NOTE | 2020-12-05 16:03 | P.PNPSI_ITS ---
Subjective Subjective Date of Service: 12/05/20 Reason For Visit: Psychotic agitation Subjective Notes: 3 Day (12/07/20) Interim History: Lon reports he is not schizophrenic. He believes the medications he has been given over the years have caused him to appear to be schizophrenic, similiar to a side effect. He requests Invega be discontinued. He will take Olanzapine and Depakote if needed. He declines GUERRA. [place] status is not clear-by history it was in place and lapsed, however, no current guardian. TDN expires 12/07/20- will consider filing for consideration of civil commitment. Requested pt retract TDN, discussed current outbreak of COVID. Pt is not concerned as he states his imune system is stronger than COVID. Medication Compliance: Yes Side effects from medications: Yes (Reports Invega caused headache) Attending Groups: Intermittent Review of Systems Constitutional: Reports headache(s) (? Med SE) Reports headache(s) (? Med SE) Reports behavioral changes and Reports headache(s) (? Med SE) Psychiatric: Reports behavioral changes, Reports depression and Reports auditory hallucinations Mental Status Exam Mental Status Exam Patient Appearance: Disheveled Patient Orientation: Person, Place and Situation Level of Consciousness: Alert Patient Behavior: Talkative and Confused Mood Description: Blunted Affect Description: Blunted Patient Cognition Impaired: Yes Ability to Follow Directions: Fair Speech Pattern: Spontaneous Speech Memory Description: Remote Impaired and Day Habilitation Specialist Impaired Hallucinations: Auditory Delusions: Being Controlled and Paranoid Ideation Thought Process: Illogical and Evasive Thought Content: positive for [place] and positive for Circumstantial Depressive Symptoms: Unexplained Headaches (pt believes med SE) Abnormal Motor Activity Signs and Symptoms: Restlessness Judgement: Poor Diagnostics Vital Signs (24Hr): Vital Signs - 24 hr 12/04/20 18:00 Temperature 97.3 F Pulse Rate 85 Blood Pressure 133/78 Body Mass Index 41.0 Labs Labs: Laboratory Results - last 48 hr 12/04/20 10:08 COVID-19 ([facility]) Negative COVID-19 Clin Com See Note Medications Medications Current Medications Generic Name Dose Route Start Last Admin Trade Name Freq PRN Reason Stop Dose Admin Acetaminophen 650 mg 11/29/20 16:45 12/05/20 15:24 Acetaminophen 325 Mg Tablet PO 650 mg Q6H PRN Administration Headache/Pain Mild Scale (1-3) Al Hydroxide/Mg Hydroxide 30 ml 11/29/20 16:45 Magnesium Hydrox/Alum Hydrox 30 Ml Oral.Susp PO Q6H PRN Heartburn/Nausea Benztropine Mesylate 0.5 mg 11/28/20 21:05 Benztropine Mesylate 0.5 Mg Tablet PO TID PRN Extrapyramidal Effects Gabapentin 100 mg 11/29/20 09:00 12/05/20 09:17 Gabapentin 100 Mg Capsule PO 100 mg BID HERON Administration Haloperidol 5 mg 11/28/20 21:05 Haloperidol 5 Mg Tablet PO TID PRN anxiety, agitation Hydroxyzine HCl 25 mg 11/29/20 16:45 Hydroxyzine Hcl 25 Mg Tablet PO BEDTIME PRN Anxiety Magnesium Hydroxide 30 ml 11/29/20 16:45 Milk Of Magnesia 30 Ml Oral.Susp PO DAILY PRN Constipation Nicotine Polacrilex 2 mg 11/29/20 21:10 Nicotine Polacrilex 2 Mg Gum BUCCAL Q2H PRN Nicotine Cravings Oxcarbazepine 300 mg 11/29/20 09:00 12/05/20 09:17 Oxcarbazepine 300 Mg Tablet PO 300 mg BID HERON Administration Paliperidone 6 mg 12/01/20 09:00 12/05/20 09:17 Paliperidone Er 6 Mg Tab.Er.24 PO 6 mg DAILY HERON Administration Trazodone HCl 50 mg 11/28/20 21:05 12/02/20 21:36 Trazodone Hcl 50 Mg Tablet PO 50 mg BEDTIME PRN Administration Insomnia Allergies Allergies Allergy/AdvReac Type Severity Reaction Status Date / Time Penicillins [PCN] Allergy Unknown UNKNOWN Verified 10/05/20 19:44 Assessment & Plan Assessment & Plan (1) Schizoaffective disorder: Qualifiers: Schizoaffective disorder type: bipolar Qualified Code(s): F25.0 - Schizoaffective disorder, bipolar type Status: Acute Code(s): F25.9 - Schizoaffective disorder, unspecified Assessment and Plan: -Discontinue Invega per pt request. -Olanzapine 20 mg HS -Depakote 500 mg ER HS -TDN to 12/07/20. Will plan to file for consideration of civil commitment if pt does not retract. Greater than 50% of the session was spent on counseling and/or coordination of care
[2020-12-05 17:01] VITALS: BP 131/73; PULSE 82; TEMP 36.6
[2020-12-06 06:00] VITALS: BP 127/66; PULSE 63; TEMP 37
[2020-12-06 07:00] VITALS: BMI 29.0
[2020-12-06] MEDS: OXcarbazepine 300 MG TABLET PO ×2 (08:54→20:22)
[2020-12-06] MEDS: Gabapentin 100 MG CAPSULE PO ×2 (08:54→20:22)
[2020-12-06 11:20] VITALS: BP 127/66; PULSE 63; TEMP 37
--- NOTE | 2020-12-06 15:02 | HO.PSYCHPN ---
Subjective Subjective Date of Service: 12/06/20 Reason For Visit: Psychotic agitation Subjective Notes: 3 Day Interim History: Met with Lon and [facility]. We presented to Lon that we would file a petition for consideration of civil commitment due to chronic noncompliance with medications, resulting psychotic symptoms and behaviors judgments which place him at risk in community. He expressed anger, expressed invalidation of diagnosis, expressed that he felt we needed to focus on someone to take care of and he did not want this to be him and accused team of attempting to make money off of him by keeping him. We reviewed the issues, concerns for safety, however he would not accept them. We reviewed the multiple admissions which have kept him stuck in illness and unable to move forward in his life, however, he declined any consideration of these perspectives. Medication Compliance: No Side effects from medications: Yes (headache) Attending Groups: No Review of Systems Constitutional: Reports headache(s) (? Med SE) Reports headache(s) (? Med SE) Reports behavioral changes and Reports headache(s) (? Med SE) Psychiatric: Reports behavioral changes, Reports difficulty concentrating, Reports auditory hallucinations, Reports hopelessness, Reports irritability, Reports anhedonia and Reports mood swings Mental Status Exam Mental Status Exam Patient Appearance: Disheveled Patient Orientation: Person, Place and Situation Level of Consciousness: Alert Patient Behavior: Talkative and Resistive to Care Mood Description: Angry Affect Description: Blunted Patient Cognition Impaired: Yes Ability to Follow Directions: Fair Speech Pattern: Spontaneous Speech and Soft-Spoken Memory Description: Remote Impaired Hallucinations: Auditory Delusions: Being Controlled and Paranoid Ideation Thought Process: Illogical and Rumination Thought Content: positive for [place] and positive for Circumstantial Depressive Symptoms: Increased Irritability, Unexplained Headaches, Unhappiness and Difficulty Concentrating Abnormal Motor Activity Signs and Symptoms: Restlessness Judgement: Poor Diagnostics Vital Signs (24Hr): Vital Signs - 24 hr 12/05/20 17:01 12/06/20 06:00 12/06/20 11:20 Temperature 97.8 F 98.6 F 98.6 F Pulse Rate 82 63 63 Blood Pressure 131/73 127/66 127/66 Body Mass Index 29.0 Medications Medications Current Medications Generic Name Dose Route Start Last Admin Trade Name Freq PRN Reason Stop Dose Admin Acetaminophen 650 mg 11/29/20 16:45 12/05/20 15:24 Acetaminophen 325 Mg Tablet PO 650 mg Q6H PRN Administration Headache/Pain Mild Scale (1-3) Al Hydroxide/Mg Hydroxide 30 ml 11/29/20 16:45 Magnesium Hydrox/Alum Hydrox 30 Ml Oral.Susp PO Q6H PRN Heartburn/Nausea Benztropine Mesylate 0.5 mg 11/28/20 21:05 Benztropine Mesylate 0.5 Mg Tablet PO TID PRN Extrapyramidal Effects Divalproex Sodium 500 mg 12/05/20 21:00 12/05/20 22:46 Divalproex Sodium Er 500 Mg Tab.Er.24h PO Not Given BEDTIME HERON Gabapentin 100 mg 11/29/20 09:00 12/06/20 08:54 Gabapentin 100 Mg Capsule PO 100 mg BID HERON Administration Haloperidol 5 mg 11/28/20 21:05 Haloperidol 5 Mg Tablet PO TID PRN anxiety, agitation Hydroxyzine HCl 25 mg 11/29/20 16:45 Hydroxyzine Hcl 25 Mg Tablet PO BEDTIME PRN Anxiety Magnesium Hydroxide 30 ml 11/29/20 16:45 Milk Of Magnesia 30 Ml Oral.Susp PO DAILY PRN Constipation Nicotine Polacrilex 2 mg 11/29/20 21:10 Nicotine Polacrilex 2 Mg Gum BUCCAL Q2H PRN Nicotine Cravings Olanzapine 20 mg 12/06/20 21:00 Olanzapine 10 Mg Tablet PO BEDTIME HERON Oxcarbazepine 300 mg 11/29/20 09:00 12/06/20 08:54 Oxcarbazepine 300 Mg Tablet PO 300 mg BID HERON Administration Trazodone HCl 50 mg 11/28/20 21:05 12/02/20 21:36 Trazodone Hcl 50 Mg Tablet PO 50 mg BEDTIME PRN Administration Insomnia Allergies Allergies Allergy/AdvReac Type Severity Reaction Status Date / Time Penicillins [PCN] Allergy Unknown UNKNOWN Verified 10/05/20 19:44 Assessment & Plan Assessment & Plan (1) Schizoaffective disorder: Qualifiers: Schizoaffective disorder type: bipolar Qualified Code(s): F25.0 - Schizoaffective disorder, bipolar type Status: Acute Code(s): F25.9 - Schizoaffective disorder, unspecified Assessment and Plan: Refusing treatment. Will file for consideration of civil commitment. (2) Noncompliance with medications: Status: Acute Code(s): Z91.14 - Patient's other noncompliance with medication regimen Greater than 50% of the session was spent on counseling and/or coordination of care
[2020-12-06 18:00] VITALS: BP 127/74; PULSE 96; TEMP 37.1
[2020-12-06] MEDS: OLANZapine 10 MG TABLET 20 MG PO (20:22)
[2020-12-07] MEDS: Gabapentin 100 MG CAPSULE PO ×2 (08:59→20:43)
[2020-12-07] MEDS: OXcarbazepine 300 MG TABLET PO ×2 (08:59→20:43)
[2020-12-07 18:00] VITALS: BP 141/86; PULSE 71; TEMP 37
[2020-12-07] MEDS: OLANZapine 10 MG TABLET 20 MG PO (20:43)
[2020-12-08] MEDS: Gabapentin 100 MG CAPSULE PO ×2 (10:20→20:00)
[2020-12-08] MEDS: OXcarbazepine 300 MG TABLET PO (10:20)
--- NOTE | 2020-12-08 14:38 | HO.PSYCHPN ---
Subjective Subjective Date of Service: 12/08/20 Reason For Visit: Psychotic agitation Interim History: Nursing notes reviewed. Pt reports sleeping eating well. He reports not needing psychiatric care, especially taking antipsychotics. He reports he does not hear voices. Pt denies SI/HI. He is visible in the unit, minimally interactive with peers, no behavioral concenrs. He denies VH/AH. No overt delusional content reported. Review of Systems Review of Systems Yes all other systems are reviewed and are negative (denies) Constitutional: Reports headache(s) (? Med SE) Reports headache(s) (? Med SE) Reports behavioral changes and Reports headache(s) (? Med SE) Psychiatric: Reports behavioral changes, Reports depression, Reports difficulty concentrating, Reports auditory hallucinations, Reports hopelessness, Reports irritability, Reports anhedonia, Reports mood swings and Reports paranoia Mental Status Exam Mental Status Exam Patient Appearance: Disheveled Patient Orientation: Person, Place and Situation Level of Consciousness: Alert Patient Behavior: Talkative and Resistive to Care Mood Description: Angry Affect Description: Blunted Patient Cognition Impaired: Yes Ability to Follow Directions: Fair Speech Pattern: Spontaneous Speech and Soft-Spoken Memory Description: Remote Impaired Diagnostics Vital Signs (24Hr): Vital Signs - 24 hr 12/07/20 18:00 Temperature 98.6 F Pulse Rate 71 Blood Pressure 141/86 H Body Mass Index 29.0 Medications Medications Current Medications Generic Name Dose Route Start Last Admin Trade Name Freq PRN Reason Stop Dose Admin Acetaminophen 650 mg 11/29/20 16:45 12/05/20 15:24 Acetaminophen 325 Mg Tablet PO 650 mg Q6H PRN Administration Headache/Pain Mild Scale (1-3) Al Hydroxide/Mg Hydroxide 30 ml 11/29/20 16:45 Magnesium Hydrox/Alum Hydrox 30 Ml Oral.Susp PO Q6H PRN Heartburn/Nausea Benztropine Mesylate 0.5 mg 11/28/20 21:05 Benztropine Mesylate 0.5 Mg Tablet PO TID PRN Extrapyramidal Effects Divalproex Sodium 500 mg 12/05/20 21:00 12/07/20 20:41 Divalproex Sodium Er 500 Mg Tab.Er.24h PO Not Given BEDTIME HERON Gabapentin 100 mg 11/29/20 09:00 12/08/20 10:20 Gabapentin 100 Mg Capsule PO 100 mg BID HERON Administration Haloperidol 5 mg 11/28/20 21:05 Haloperidol 5 Mg Tablet PO TID PRN anxiety, agitation Hydroxyzine HCl 25 mg 11/29/20 16:45 Hydroxyzine Hcl 25 Mg Tablet PO BEDTIME PRN Anxiety Magnesium Hydroxide 30 ml 11/29/20 16:45 Milk Of Magnesia 30 Ml Oral.Susp PO DAILY PRN Constipation Nicotine Polacrilex 2 mg 11/29/20 21:10 Nicotine Polacrilex 2 Mg Gum BUCCAL Q2H PRN Nicotine Cravings Olanzapine 20 mg 12/06/20 21:00 12/07/20 20:43 Olanzapine 10 Mg Tablet PO 20 mg BEDTIME HERON Administration Oxcarbazepine 300 mg 11/29/20 09:00 12/08/20 10:20 Oxcarbazepine 300 Mg Tablet PO 300 mg BID HERON Administration Trazodone HCl 50 mg 11/28/20 21:05 12/02/20 21:36 Trazodone Hcl 50 Mg Tablet PO 50 mg BEDTIME PRN Administration Insomnia Allergies Allergies Allergy/AdvReac Type Severity Reaction Status Date / Time Penicillins [PCN] Allergy Unknown UNKNOWN Verified 10/05/20 19:44 Assessment & Plan Assessment & Plan (1) Schizoaffective disorder: Qualifiers: Schizoaffective disorder type: bipolar Qualified Code(s): F25.0 - Schizoaffective disorder, bipolar type Status: Acute Code(s): F25.9 - Schizoaffective disorder, unspecified Assessment and Plan: Refusing treatment. Will file for consideration of civil commitment. (2) Noncompliance with medications: Status: Acute Code(s): Z91.14 - Patient's other noncompliance with medication regimen Greater than 50% of the session was spent on counseling and/or coordination of care
[2020-12-08 18:00] VITALS: BP 138/89; PULSE 76; TEMP 36.9
[2020-12-08] MEDS: OLANZapine 10 MG TABLET 20 MG PO (20:00)
[2020-12-09] MEDS: Gabapentin 100 MG CAPSULE PO ×2 (08:33→21:04)
[2020-12-09] MEDS: OXcarbazepine 300 MG TABLET PO (08:33)
--- NOTE | 2020-12-09 13:52 | HO.PSYCHPN ---
Subjective Subjective Date of Service: 12/09/20 Reason For Visit: Psychotic agitation Interim History: Nursing notes reviewed. Pt reports sleeping eating well. He reports not needing psychiatric care, especially taking antipsychotics. He reports he does not hear voices. Pt denies SI/HI. He is visible in the unit, minimally interactive with peers, no behavioral concenrs. He denies VH/AH. No overt delusional content reported. Review of Systems Review of Systems Yes all other systems are reviewed and are negative (denies) Constitutional: Reports headache(s) (? Med SE) Reports headache(s) (? Med SE) Reports behavioral changes and Reports headache(s) (? Med SE) Psychiatric: Reports behavioral changes, Reports depression, Reports difficulty concentrating, Reports auditory hallucinations, Reports hopelessness, Reports irritability, Reports anhedonia, Reports mood swings and Reports paranoia Mental Status Exam Mental Status Exam Patient Appearance: Disheveled Patient Orientation: Person, Place and Situation Level of Consciousness: Alert Patient Behavior: Talkative and Resistive to Care Mood Description: Angry Affect Description: Blunted Patient Cognition Impaired: Yes Ability to Follow Directions: Fair Speech Pattern: Spontaneous Speech and Soft-Spoken Memory Description: Remote Impaired Diagnostics Vital Signs (24Hr): Vital Signs - 24 hr 12/08/20 18:00 Temperature 98.5 F Pulse Rate 76 Blood Pressure 138/89 Body Mass Index 29.0 Medications Medications Current Medications Generic Name Dose Route Start Last Admin Trade Name Freq PRN Reason Stop Dose Admin Acetaminophen 650 mg 11/29/20 16:45 12/05/20 15:24 Acetaminophen 325 Mg Tablet PO 650 mg Q6H PRN Administration Headache/Pain Mild Scale (1-3) Al Hydroxide/Mg Hydroxide 30 ml 11/29/20 16:45 Magnesium Hydrox/Alum Hydrox 30 Ml Oral.Susp PO Q6H PRN Heartburn/Nausea Benztropine Mesylate 0.5 mg 11/28/20 21:05 Benztropine Mesylate 0.5 Mg Tablet PO TID PRN Extrapyramidal Effects Divalproex Sodium 500 mg 12/05/20 21:00 12/08/20 20:22 Divalproex Sodium Er 500 Mg Tab.Er.24h PO Not Given BEDTIME HERON Gabapentin 100 mg 11/29/20 09:00 12/09/20 08:33 Gabapentin 100 Mg Capsule PO 100 mg BID HERON Administration Haloperidol 5 mg 11/28/20 21:05 Haloperidol 5 Mg Tablet PO TID PRN anxiety, agitation Hydroxyzine HCl 25 mg 11/29/20 16:45 Hydroxyzine Hcl 25 Mg Tablet PO BEDTIME PRN Anxiety Magnesium Hydroxide 30 ml 11/29/20 16:45 Milk Of Magnesia 30 Ml Oral.Susp PO DAILY PRN Constipation Nicotine Polacrilex 2 mg 11/29/20 21:10 Nicotine Polacrilex 2 Mg Gum BUCCAL Q2H PRN Nicotine Cravings Olanzapine 20 mg 12/06/20 21:00 12/08/20 20:00 Olanzapine 10 Mg Tablet PO 20 mg BEDTIME HERON Administration Oxcarbazepine 300 mg 11/29/20 09:00 12/09/20 08:33 Oxcarbazepine 300 Mg Tablet PO 300 mg BID HERON Administration Trazodone HCl 50 mg 11/28/20 21:05 12/02/20 21:36 Trazodone Hcl 50 Mg Tablet PO 50 mg BEDTIME PRN Administration Insomnia Allergies Allergies Allergy/AdvReac Type Severity Reaction Status Date / Time Penicillins [PCN] Allergy Unknown UNKNOWN Verified 10/05/20 19:44 Assessment & Plan Assessment & Plan (1) Schizoaffective disorder: Qualifiers: Schizoaffective disorder type: bipolar Qualified Code(s): F25.0 - Schizoaffective disorder, bipolar type Status: Acute Code(s): F25.9 - Schizoaffective disorder, unspecified Assessment and Plan: Refusing treatment. Will file for consideration of civil commitment. (2) Noncompliance with medications: Status: Acute Code(s): Z91.14 - Patient's other noncompliance with medication regimen Greater than 50% of the session was spent on counseling and/or coordination of care
[2020-12-09 18:00] VITALS: BP 146/91; PULSE 73; TEMP 37.2
[2020-12-09] MEDS: OLANZapine 10 MG TABLET 20 MG PO (21:04)
[2020-12-10] MEDS: OXcarbazepine 300 MG TABLET PO (09:08)
[2020-12-10] MEDS: Gabapentin 100 MG CAPSULE PO ×2 (09:08→20:27)
--- NOTE | 2020-12-10 15:21 | P.PNPSI_ITS ---
Subjective Subjective Date of Service: 12/10/20 Reason For Visit: Psychotic agitation Subjective Notes: Conditional Voluntary Interim History: Accepting medications. Alert, oriented, engaged. Discussed having a meeting with his residential team and [facility] to discuss return to the half-way, moving forward and prevention of relapse as pt reports he is becoming discouraged with several recent readmissions. States he wants to attempt a return to college. Wants to move forward. Encouraged to attend meeting scheduled for 12/12/20 11am to discuss team's perspective and his participation in moving forward. He is unsure but will give this some thought. Medication Compliance: Yes Side effects from medications: No Attending Groups: No (pt denies) Review of Systems Review of Systems Yes all other systems are reviewed and are negative (pt denies current symptoms) Reports behavioral changes Psychiatric: Reports anxiety and Reports behavioral changes Mental Status Exam Mental Status Exam Patient Appearance: Appropriate Patient Orientation: Person, Place, Time and Situation Level of Consciousness: Alert Patient Behavior: Talkative Mood Description: Constricted Affect Description: Constricted Patient Cognition Impaired: No Ability to Follow Directions: Good Speech Pattern: Spontaneous Speech Memory Description: Episodic Impaired Hallucinations: None (denies) Delusions: Not Present Thought Process: Evasive Thought Content: positive for Circumstantial Judgement: Good Diagnostics Vital Signs (24Hr): Vital Signs - 24 hr 12/09/20 18:00 Temperature 98.9 F Pulse Rate 73 Blood Pressure 146/91 H Body Mass Index 29.0 Medications Medications Current Medications Generic Name Dose Route Start Last Admin Trade Name Freq PRN Reason Stop Dose Admin Acetaminophen 650 mg 11/29/20 16:45 12/05/20 15:24 Acetaminophen 325 Mg Tablet PO 650 mg Q6H PRN Administration Headache/Pain Mild Scale (1-3) Al Hydroxide/Mg Hydroxide 30 ml 11/29/20 16:45 Magnesium Hydrox/Alum Hydrox 30 Ml Oral.Susp PO Q6H PRN Heartburn/Nausea Benztropine Mesylate 0.5 mg 11/28/20 21:05 Benztropine Mesylate 0.5 Mg Tablet PO TID PRN Extrapyramidal Effects Divalproex Sodium 500 mg 12/05/20 21:00 12/09/20 21:04 Divalproex Sodium Er 500 Mg Tab.Er.24h PO Not Given BEDTIME HERON Gabapentin 100 mg 11/29/20 09:00 12/10/20 09:08 Gabapentin 100 Mg Capsule PO 100 mg BID HERON Administration Haloperidol 5 mg 11/28/20 21:05 Haloperidol 5 Mg Tablet PO TID PRN anxiety, agitation Hydroxyzine HCl 25 mg 11/29/20 16:45 Hydroxyzine Hcl 25 Mg Tablet PO BEDTIME PRN Anxiety Magnesium Hydroxide 30 ml 11/29/20 16:45 Milk Of Magnesia 30 Ml Oral.Susp PO DAILY PRN Constipation Nicotine Polacrilex 2 mg 11/29/20 21:10 Nicotine Polacrilex 2 Mg Gum BUCCAL Q2H PRN Nicotine Cravings Olanzapine 20 mg 12/06/20 21:00 12/09/20 21:04 Olanzapine 10 Mg Tablet PO 20 mg BEDTIME HERON Administration Oxcarbazepine 300 mg 11/29/20 09:00 12/10/20 09:08 Oxcarbazepine 300 Mg Tablet PO 300 mg BID HERON Administration Trazodone HCl 50 mg 11/28/20 21:05 12/02/20 21:36 Trazodone Hcl 50 Mg Tablet PO 50 mg BEDTIME PRN Administration Insomnia Allergies Allergies Allergy/AdvReac Type Severity Reaction Status Date / Time Penicillins [PCN] Allergy Unknown UNKNOWN Verified 10/05/20 19:44 Assessment & Plan Assessment & Plan (1) Schizoaffective disorder: Qualifiers: Schizoaffective disorder type: bipolar Qualified Code(s): F25.0 - Schizoaffective disorder, bipolar type Status: Acute Code(s): F25.9 - Schizoaffective disorder, unspecified Assessment and Plan: -Continue current regime -Residential meeting ThuDec 12, 2020 11am Greater than 50% of the session was spent on counseling and/or coordination of care
[2020-12-10 18:00] VITALS: BP 137/85; PULSE 66; TEMP 37.1
[2020-12-10] MEDS: OLANZapine 10 MG TABLET 20 MG PO (20:27)
--- NOTE | 2020-12-11 16:47 | P.PNPSI_ITS ---
Subjective Subjective Date of Service: 12/12/20 Reason For Visit: Psychotic agitation Subjective Notes: Conditional Voluntary Interim History: Meeting with residential team 12/12 11am to discuss discharge, pattern of readmissions and ideas for helping pt consistently move forward as he expresses frustration with readmissions. Pt unsure if he will attend. Refused medications this a.m. per team. Medication Compliance: Intermittent Side effects from medications: No Attending Groups: Yes Review of Systems Review of Systems Yes all other systems are reviewed and are negative (denies medical symptoms) Reports behavioral changes Psychiatric: Reports behavioral changes, Reports irritability and Reports mood swings Mental Status Exam Mental Status Exam Patient Appearance: Appropriate Patient Orientation: Person, Place, Time and Situation Level of Consciousness: Alert Patient Behavior: Talkative and Wandering Mood Description: Withdrawn, Constricted and Depressed (at times reports depressive sx, at times denies depressive sx) Affect Description: Constricted Patient Cognition Impaired: No Ability to Follow Directions: Good Speech Pattern: Spontaneous Speech Memory Description: Intact Hallucinations: None and Auditory (appears at times to respond, denies at times) Delusions: Not Present Thought Process: Goal Oriented Thought Content: positive for [place] and positive for Circumstantial Depressive Symptoms: Unhappiness Abnormal Motor Activity Signs and Symptoms: Restlessness Judgement: Fair Diagnostics Vital Signs (24Hr): Vital Signs - 24 hr 12/10/20 18:00 Temperature 98.8 F Pulse Rate 66 Blood Pressure 137/85 Body Mass Index 29.0 Medications Medications Current Medications Generic Name Dose Route Start Last Admin Trade Name Freq PRN Reason Stop Dose Admin Acetaminophen 650 mg 11/29/20 16:45 12/05/20 15:24 Acetaminophen 325 Mg Tablet PO 650 mg Q6H PRN Administration Headache/Pain Mild Scale (1-3) Al Hydroxide/Mg Hydroxide 30 ml 11/29/20 16:45 Magnesium Hydrox/Alum Hydrox 30 Ml Oral.Susp PO Q6H PRN Heartburn/Nausea Benztropine Mesylate 0.5 mg 11/28/20 21:05 Benztropine Mesylate 0.5 Mg Tablet PO TID PRN Extrapyramidal Effects Gabapentin 100 mg 11/29/20 09:00 12/11/20 10:22 Gabapentin 100 Mg Capsule PO Not Given BID HERON Haloperidol 5 mg 11/28/20 21:05 Haloperidol 5 Mg Tablet PO TID PRN anxiety, agitation Hydroxyzine HCl 25 mg 11/29/20 16:45 Hydroxyzine Hcl 25 Mg Tablet PO BEDTIME PRN Anxiety Magnesium Hydroxide 30 ml 11/29/20 16:45 Milk Of Magnesia 30 Ml Oral.Susp PO DAILY PRN Constipation Nicotine Polacrilex 2 mg 11/29/20 21:10 Nicotine Polacrilex 2 Mg Gum BUCCAL Q2H PRN Nicotine Cravings Olanzapine 20 mg 12/06/20 21:00 12/10/20 20:27 Olanzapine 10 Mg Tablet PO 20 mg BEDTIME HERON Administration Oxcarbazepine 300 mg 11/29/20 09:00 12/11/20 10:22 Oxcarbazepine 300 Mg Tablet PO Not Given BID HERON Trazodone HCl 50 mg 11/28/20 21:05 12/02/20 21:36 Trazodone Hcl 50 Mg Tablet PO 50 mg BEDTIME PRN Administration Insomnia Allergies Allergies Allergy/AdvReac Type Severity Reaction Status Date / Time Penicillins [PCN] Allergy Unknown UNKNOWN Verified 10/05/20 19:44 Assessment & Plan Assessment & Plan (1) Schizoaffective disorder: Qualifiers: Schizoaffective disorder type: bipolar Qualified Code(s): F25.0 - Schizoaffective disorder, bipolar type Status: Acute Code(s): F25.9 - Schizoaffective disorder, unspecified Assessment and Plan: Continue current regime Meeting with residential team 12/12/20. (2) Noncompliance with medications: Status: Acute Code(s): Z91.14 - Patient's other noncompliance with medication regimen Greater than 50% of the session was spent on counseling and/or coordination of care
[2020-12-11] MEDS: Gabapentin 100 MG CAPSULE PO (21:21)
[2020-12-11] MEDS: OLANZapine 10 MG TABLET 20 MG PO (21:21)
[2020-12-12] MEDS: OXcarbazepine 300 MG TABLET PO ×2 (08:43→21:25)
[2020-12-12] MEDS: Gabapentin 100 MG CAPSULE PO ×2 (08:43→21:25)
--- NOTE | 2020-12-12 17:02 | P.PNPSI_ITS ---
Subjective Subjective Date of Service: 12/12/20 Reason For Visit: Psychotic agitation Subjective Notes: Conditional Voluntary Interim History: Team meeting with Angela Leslie [facility] Rossy Enriquez, [facility], Juju [facility] Outreach, Dorian Tinajero, [facility] Care t; Karine of [facility] readmission project, and Isai-Clinical Director of [facility]. Hospital course reviewed, meds reviewed, attempts to discuss with pt GUERRA reviewed. Update on community crowder guardianship indicated this will most likely be in process until mid-year, guardian has been identified however. Discussed how to help pt break the cycle of noncompliance, relapse, rehospitalization. 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 Pt's baseline was also discussed when medicated with some paranoia when well and distancing. OP team will be looking into brief respite option before returning to [facility]. Met with pt to review some ideas, discussed the need for medication compliance to help him continue to progress and meet his goals-GED, college, work, independent living. Pt agrees. Discussed possible need for antidepessant when meds are established and readiness to take this step. No discharge date is set at this time due to bed availability and current COVID outbreak at [facility]. Medication Compliance: Yes Side effects from medications: No (some days yes, some days no) Attending Groups: Yes Review of Systems Review of Systems Yes all other systems are reviewed and are negative (pt denies sx.) Mental Status Exam Mental Status Exam Patient Appearance: Appropriate Patient Orientation: Person, Place, Time and Situation Level of Consciousness: Awake and Alert Patient Behavior: Talkative Mood Description: Calm, Appropriate and Flat Affect Description: Flat Patient Cognition Impaired: No Ability to Follow Directions: Good Speech Pattern: Spontaneous Speech Memory Description: Intact and Episodic Impaired Hallucinations: Auditory Delusions: Paranoid Ideation Thought Process: Intact Thought Content: positive for [place] and positive for Circumstantial Depressive Symptoms: Increased Irritability Judgement: Fair Diagnostics Vital Signs (24Hr): Body Mass Index 29.0 Labs Labs: I hate needles. I don't want to have labs. Medications Medications Current Medications Generic Name Dose Route Start Last Admin Trade Name Freq PRN Reason Stop Dose Admin Acetaminophen 650 mg 11/29/20 16:45 12/05/20 15:24 Acetaminophen 325 Mg Tablet PO 650 mg Q6H PRN Administration Headache/Pain Mild Scale (1-3) Al Hydroxide/Mg Hydroxide 30 ml 11/29/20 16:45 Magnesium Hydrox/Alum Hydrox 30 Ml Oral.Susp PO Q6H PRN Heartburn/Nausea Benztropine Mesylate 0.5 mg 11/28/20 21:05 Benztropine Mesylate 0.5 Mg Tablet PO TID PRN Extrapyramidal Effects Gabapentin 100 mg 11/29/20 09:00 12/12/20 08:43 Gabapentin 100 Mg Capsule PO 100 mg BID HERON Administration Haloperidol 5 mg 11/28/20 21:05 Haloperidol 5 Mg Tablet PO TID PRN anxiety, agitation Hydroxyzine HCl 25 mg 11/29/20 16:45 Hydroxyzine Hcl 25 Mg Tablet PO BEDTIME PRN Anxiety Magnesium Hydroxide 30 ml 11/29/20 16:45 Milk Of Magnesia 30 Ml Oral.Susp PO DAILY PRN Constipation Nicotine Polacrilex 2 mg 11/29/20 21:10 Nicotine Polacrilex 2 Mg Gum BUCCAL Q2H PRN Nicotine Cravings Olanzapine 20 mg 12/06/20 21:00 12/11/20 21:21 Olanzapine 10 Mg Tablet PO 20 mg BEDTIME HERON Administration Oxcarbazepine 300 mg 11/29/20 09:00 12/12/20 08:43 Oxcarbazepine 300 Mg Tablet PO 300 mg BID HERON Administration Trazodone HCl 50 mg 11/28/20 21:05 12/02/20 21:36 Trazodone Hcl 50 Mg Tablet PO 50 mg BEDTIME PRN Administration Insomnia Allergies Allergies Allergy/AdvReac Type Severity Reaction Status Date / Time Penicillins [PCN] Allergy Unknown UNKNOWN Verified 10/05/20 19:44 Assessment & Plan Assessment & Plan (1) Schizoaffective disorder: Qualifiers: Schizoaffective disorder type: bipolar Qualified Code(s): F25.0 - Schizoaffective disorder, bipolar type Status: Acute Code(s): F25.9 - Schizoaffective disorder, unspecified Assessment and Plan: Continue current plan of care. Greater than 50% of the session was spent on counseling and/or coordination of care
[2020-12-12 18:00] VITALS: BP 155/85; PULSE 62; TEMP 36.5
[2020-12-12] MEDS: OLANZapine 10 MG TABLET 20 MG PO (21:25)
[2020-12-13] MEDS: OXcarbazepine 300 MG TABLET PO (09:58)
[2020-12-13] MEDS: Gabapentin 100 MG CAPSULE PO ×2 (09:58→20:21)
--- NOTE | 2020-12-13 15:44 | P.PNPSI_ITS ---
Subjective Subjective Date of Service: 12/13/20 Reason For Visit: Psychotic agitation Subjective Notes: Conditional Voluntary Interim History: Denies any issues or concerns today. Brief interactions in milieu with Lon. He is visable, wandering, alert, aware, but appears to be preoccupied Medication Compliance: Yes Side effects from medications: No Attending Groups: Intermittent Review of Systems Review of Systems Yes all other systems are reviewed and are negative (Lon denies concerns) Reports behavioral changes Psychiatric: Reports behavioral changes, Reports difficulty concentrating, Repo rts auditory hallucinations, Reports irritability, Reports anhedonia, Reports mood swings and Reports paranoia Mental Status Exam Mental Status Exam Patient Appearance: Appropriate Patient Orientation: Person, Place and Situation Level of Consciousness: Awake and Alert Patient Behavior: Guarded, Suspicious, Restless, Wandering, Avoidant and Di stractible Mood Description: Suspicious, Withdrawn and Blunted Affect Description: Blunted Patient Cognition Impaired: No Ability to Follow Directions: Good Speech Pattern: Spontaneous Speech Memory Description: Episodic Impaired Hallucinations: Auditory Delusions: Paranoid Ideation Thought Process: Distracted Thought Content: positive for Circumstantial Depressive Symptoms: Unhappiness Judgement: Fair Diagnostics Vital Signs (24Hr): Vital Signs - 24 hr 12/12/20 18:00 Temperature 97.7 F Pulse Rate 62 Blood Pressure 155/85 H Body Mass Index 29.0 Labs Labs: Pt refuses labs. Medications Medications Current Medications Generic Name Dose Route Start Last Admin Trade Name Freq PRN Reason Stop Dose Admin Acetaminophen 650 mg 11/29/20 16:45 12/05/20 15:24 Acetaminophen 325 Mg Tablet PO 650 mg Q6H PRN Administration Headache/Pain Mild Scale (1-3) Al Hydroxide/Mg Hydroxide 30 ml 11/29/20 16:45 Magnesium Hydrox/Alum Hydrox 30 Ml Oral.Susp PO Q6H PRN Heartburn/Nausea Benztropine Mesylate 0.5 mg 11/28/20 21:05 Benztropine Mesylate 0.5 Mg Tablet PO TID PRN Extrapyramidal Effects Gabapentin 100 mg 11/29/20 09:00 12/13/20 09:58 Gabapentin 100 Mg Capsule PO 100 mg BID HERON Administration Haloperidol 5 mg 11/28/20 21:05 Haloperidol 5 Mg Tablet PO TID PRN anxiety, agitation Hydroxyzine HCl 25 mg 11/29/20 16:45 Hydroxyzine Hcl 25 Mg Tablet PO BEDTIME PRN Anxiety Magnesium Hydroxide 30 ml 11/29/20 16:45 Milk Of Magnesia 30 Ml Oral.Susp PO DAILY PRN Constipation Nicotine Polacrilex 2 mg 11/29/20 21:10 Nicotine Polacrilex 2 Mg Gum BUCCAL Q2H PRN Nicotine Cravings Olanzapine 20 mg 12/06/20 21:00 12/12/20 21:25 Olanzapine 10 Mg Tablet PO 20 mg BEDTIME HERON Administration Oxcarbazepine 300 mg 11/29/20 09:00 12/13/20 09:58 Oxcarbazepine 300 Mg Tablet PO 300 mg BID HERON Administration Trazodone HCl 50 mg 11/28/20 21:05 12/02/20 21:36 Trazodone Hcl 50 Mg Tablet PO 50 mg BEDTIME PRN Administration Insomnia Allergies Allergies Allergy/AdvReac Type Severity Reaction Status Date / Time Penicillins [PCN] Allergy Unknown UNKNOWN Verified 10/05/20 19:44 Assessment & Plan Assessment & Plan (1) Schizoaffective disorder: Qualifiers: Schizoaffective disorder type: bipolar Qualified Code(s): F25.0 - Schizoaffective disorder, bipolar type Status: Acute Code(s): F25.9 - Schizoaffective disorder, unspecified Greater than 50% of the session was spent on counseling and/or coordination of care
[2020-12-13 18:00] VITALS: BP 138/70; PULSE 78; TEMP 37.3
[2020-12-13] MEDS: OLANZapine 10 MG TABLET 20 MG PO (20:21)
[2020-12-14] MEDS: OXcarbazepine 300 MG TABLET PO ×2 (11:09→21:28)
[2020-12-14] MEDS: Gabapentin 100 MG CAPSULE PO ×2 (11:09→21:28)
--- NOTE | 2020-12-14 16:08 | HO.PSYCHPN ---
Subjective Subjective Date of Service: 12/14/20 Reason For Visit: Psychotic agitation Subjective Notes: Conditional Voluntary Interim History: Remains inconsistent with medications and mood. Met with pt this a.m. and he reports meds are OK, no SE. Discussed Gabapentin titration and identified that it helped with anxiety and how OP prescriber had hoped to titrate it. Engaged and not preoccupied. This afternoon, however, an opposite presentation when he met with Angela Leslie, not planning on staying on meds, asking to leave today. Medication Compliance: Intermittent Side effects from medications: No Attending Groups: Intermittent Review of Systems Review of Systems Yes all other systems are reviewed and are negative (denies) Psychiatric: Reports anxiety, Reports irritability, Reports mood swings and Reports paranoia Mental Status Exam Mental Status Exam Patient Appearance: Appropriate Patient Orientation: Person, Place and Situation Level of Consciousness: Awake and Alert Patient Behavior: Talkative Mood Description: Calm Affect Description: Calm Patient Cognition Impaired: No Ability to Follow Directions: Good Speech Pattern: Spontaneous Speech Memory Description: Episodic Impaired Hallucinations: None Delusions: Not Present Thought Process: Distracted Thought Content: positive for [place] and positive for Circumstantial Depressive Symptoms: Increased Anxiety Abnormal Motor Activity Signs and Symptoms: Restlessness Judgement: Fair Diagnostics Vital Signs (24Hr): Vital Signs - 24 hr 12/13/20 18:00 Temperature 99.2 F Pulse Rate 78 Blood Pressure 138/70 Body Mass Index 29.0 Medications Medications Current Medications Generic Name Dose Route Start Last Admin Trade Name Freq PRN Reason Stop Dose Admin Acetaminophen 650 mg 11/29/20 16:45 12/05/20 15:24 Acetaminophen 325 Mg Tablet PO 650 mg Q6H PRN Administration Headache/Pain Mild Scale (1-3) Al Hydroxide/Mg Hydroxide 30 ml 11/29/20 16:45 Magnesium Hydrox/Alum Hydrox 30 Ml Oral.Susp PO Q6H PRN Heartburn/Nausea Benztropine Mesylate 0.5 mg 11/28/20 21:05 Benztropine Mesylate 0.5 Mg Tablet PO TID PRN Extrapyramidal Effects Gabapentin 200 mg 12/15/20 09:00 Gabapentin 100 Mg Capsule PO DAILY HERON Gabapentin 100 mg 12/14/20 21:00 Gabapentin 100 Mg Capsule PO BEDTIME HERON Haloperidol 5 mg 11/28/20 21:05 Haloperidol 5 Mg Tablet PO TID PRN anxiety, agitation Hydroxyzine HCl 25 mg 11/29/20 16:45 Hydroxyzine Hcl 25 Mg Tablet PO BEDTIME PRN Anxiety Magnesium Hydroxide 30 ml 11/29/20 16:45 Milk Of Magnesia 30 Ml Oral.Susp PO DAILY PRN Constipation Nicotine Polacrilex 2 mg 11/29/20 21:10 Nicotine Polacrilex 2 Mg Gum BUCCAL Q2H PRN Nicotine Cravings Olanzapine 20 mg 12/06/20 21:00 12/13/20 20:21 Olanzapine 10 Mg Tablet PO 20 mg BEDTIME HERON Administration Oxcarbazepine 300 mg 11/29/20 09:00 12/14/20 11:09 Oxcarbazepine 300 Mg Tablet PO 300 mg BID HERON Administration Trazodone HCl 50 mg 11/28/20 21:05 12/02/20 21:36 Trazodone Hcl 50 Mg Tablet PO 50 mg BEDTIME PRN Administration Insomnia Allergies Allergies Allergy/AdvReac Type Severity Reaction Status Date / Time Penicillins [PCN] Allergy Unknown UNKNOWN Verified 10/05/20 19:44 Assessment & Plan Assessment & Plan (1) Schizoaffective disorder: Qualifiers: Schizoaffective disorder type: bipolar Qualified Code(s): F25.0 - Schizoaffective disorder, bipolar type Status: Acute Code(s): F25.9 - Schizoaffective disorder, unspecified Assessment and Plan: -Increase Gabapentin to 200 mg a.m. 100 mg pm -Benztropin 0.5 mg hs Greater than 50% of the session was spent on counseling and/or coordination of care Reason for contiued inpatient stay Substantial Risk for: harm to self, harm to others, inability to function and rapid decompensation
[2020-12-14 18:00] VITALS: BP 156/62; PULSE 65; TEMP 37.4
[2020-12-14] MEDS: Benztropine Mesylate 0.5 MG TABLET PO (21:28)
[2020-12-14] MEDS: OLANZapine 10 MG TABLET 20 MG PO (21:28)
--- NOTE | 2020-12-15 09:26 | HO.PSYCHPN ---
Subjective Subjective Date of Service: 12/15/20 Reason For Visit: Psychotic agitation Interim History: Pt was pleasant cooperative. Looking forward to DC to [facility]. Odd speech which was tangential. Ct Rx plan per team Review of Systems Review of Systems Yes all other systems are reviewed and are negative (denies) Constitutional: Reports headache(s) (? Med SE) Reports headache(s) (? Med SE) Reports behavioral changes and Reports headache(s) (? Med SE) Psychiatric: Reports anxiety, Reports behavioral changes, Reports depression, Reports difficulty concentrating, Reports auditory hallucinations, Reports hopelessness, Reports irritability, Reports anhedonia, Reports mood swings and Reports paranoia Mental Status Exam Mental Status Exam Patient Appearance: Appropriate Patient Orientation: Person, Place and Situation Level of Consciousness: Awake and Alert Patient Behavior: Talkative Mood Description: Calm Affect Description: Calm Patient Cognition Impaired: No Ability to Follow Directions: Good Speech Pattern: Spontaneous Speech Memory Description: Episodic Impaired Diagnostics Vital Signs (24Hr): Vital Signs - 24 hr 12/14/20 18:00 Temperature 99.3 F Pulse Rate 65 Blood Pressure 156/62 H Body Mass Index 29.0 Medications Medications Current Medications Generic Name Dose Route Start Last Admin Trade Name Freq PRN Reason Stop Dose Admin Acetaminophen 650 mg 11/29/20 16:45 12/05/20 15:24 Acetaminophen 325 Mg Tablet PO 650 mg Q6H PRN Administration Headache/Pain Mild Scale (1-3) Al Hydroxide/Mg Hydroxide 30 ml 11/29/20 16:45 Magnesium Hydrox/Alum Hydrox 30 Ml Oral.Susp PO Q6H PRN Heartburn/Nausea Benztropine Mesylate 0.5 mg 11/28/20 21:05 Benztropine Mesylate 0.5 Mg Tablet PO TID PRN Extrapyramidal Effects Benztropine Mesylate 0.5 mg 12/14/20 21:00 12/14/20 21:28 Benztropine Mesylate 0.5 Mg Tablet PO 0.5 mg BEDTIME HERON Administration Gabapentin 200 mg 12/15/20 09:00 Gabapentin 100 Mg Capsule PO DAILY HERON Gabapentin 100 mg 12/14/20 21:00 12/14/20 21:28 Gabapentin 100 Mg Capsule PO 100 mg BEDTIME HERON Administration Haloperidol 5 mg 11/28/20 21:05 Haloperidol 5 Mg Tablet PO TID PRN anxiety, agitation Hydroxyzine HCl 25 mg 11/29/20 16:45 Hydroxyzine Hcl 25 Mg Tablet PO BEDTIME PRN Anxiety Magnesium Hydroxide 30 ml 11/29/20 16:45 Milk Of Magnesia 30 Ml Oral.Susp PO DAILY PRN Constipation Nicotine Polacrilex 2 mg 11/29/20 21:10 Nicotine Polacrilex 2 Mg Gum BUCCAL Q2H PRN Nicotine Cravings Olanzapine 20 mg 12/06/20 21:00 12/14/20 21:28 Olanzapine 10 Mg Tablet PO 20 mg BEDTIME HERON Administration Oxcarbazepine 300 mg 11/29/20 09:00 12/14/20 21:28 Oxcarbazepine 300 Mg Tablet PO 300 mg BID HERON Administration Trazodone HCl 50 mg 11/28/20 21:05 12/02/20 21:36 Trazodone Hcl 50 Mg Tablet PO 50 mg BEDTIME PRN Administration Insomnia Allergies Allergies Allergy/AdvReac Type Severity Reaction Status Date / Time Penicillins [PCN] Allergy Unknown UNKNOWN Verified 10/05/20 19:44 Assessment & Plan Assessment & Plan (1) Schizoaffective disorder: Qualifiers: Schizoaffective disorder type: bipolar Qualified Code(s): F25.0 - Schizoaffective disorder, bipolar type Status: Acute Code(s): F25.9 - Schizoaffective disorder, unspecified Assessment and Plan: -Increase Gabapentin to 200 mg a.m. 100 mg pm -Benztropin 0.5 mg hs Greater than 50% of the session was spent on counseling and/or coordination of care Reason for contiued inpatient stay Substantial Risk for: inability to function
[2020-12-15] MEDS: OXcarbazepine 300 MG TABLET PO ×2 (09:27→21:07)
[2020-12-15] MEDS: Gabapentin 100 MG CAPSULE 200 MG PO (09:27)
[2020-12-15 16:28] VITALS: BP 143/72; PULSE 77; TEMP 37.2
[2020-12-15] MEDS: Benztropine Mesylate 0.5 MG TABLET PO (21:07)
[2020-12-15] MEDS: Gabapentin 100 MG CAPSULE PO (21:07)
[2020-12-15] MEDS: OLANZapine 10 MG TABLET 20 MG PO (21:08)
--- NOTE | 2020-12-16 08:10 | P.PNPSI_ITS ---
Subjective Subjective Date of Service: 12/16/20 Reason For Visit: Psychotic agitation Interim History: Pt was pleasant cooperative. Looking forward to DC to [facility]. Odd speech which was tangential/mumbling at times. Med compliant per staff.. Ct Rx plan per team Review of Systems Review of Systems Yes all other systems are reviewed and are negative (denies) Constitutional: Reports headache(s) (? Med SE) Reports headache(s) (? Med SE) Reports behavioral changes and Reports headache(s) (? Med SE) Psychiatric: Reports anxiety, Reports behavioral changes, Reports depression, Reports difficulty concentrating, Reports auditory hallucinations, Reports hopelessness, Reports irritability, Reports anhedonia, Reports mood swings and Reports paranoia Mental Status Exam Mental Status Exam Patient Appearance: Appropriate Patient Orientation: Person, Place and Situation Level of Consciousness: Awake and Alert Patient Behavior: Talkative Mood Description: Calm Affect Description: Calm Patient Cognition Impaired: No Ability to Follow Directions: Good Speech Pattern: Spontaneous Speech Memory Description: Episodic Impaired Diagnostics Vital Signs (24Hr): Vital Signs - 24 hr 12/15/20 16:28 Temperature 98.9 F Pulse Rate 77 Blood Pressure 143/72 H Body Mass Index 29.0 Medications Medications Current Medications Generic Name Dose Route Start Last Admin Trade Name Freq PRN Reason Stop Dose Admin Acetaminophen 650 mg 11/29/20 16:45 12/05/20 15:24 Acetaminophen 325 Mg Tablet PO 650 mg Q6H PRN Administration Headache/Pain Mild Scale (1-3) Al Hydroxide/Mg Hydroxide 30 ml 11/29/20 16:45 Magnesium Hydrox/Alum Hydrox 30 Ml Oral.Susp PO Q6H PRN Heartburn/Nausea Benztropine Mesylate 0.5 mg 11/28/20 21:05 Benztropine Mesylate 0.5 Mg Tablet PO TID PRN Extrapyramidal Effects Benztropine Mesylate 0.5 mg 12/14/20 21:00 12/15/20 21:07 Benztropine Mesylate 0.5 Mg Tablet PO 0.5 mg BEDTIME HERON Administration Gabapentin 200 mg 12/15/20 09:00 12/15/20 09:27 Gabapentin 100 Mg Capsule PO 200 mg DAILY HERON Administration Gabapentin 100 mg 12/14/20 21:00 12/15/20 21:07 Gabapentin 100 Mg Capsule PO 100 mg BEDTIME HERON Administration Haloperidol 5 mg 11/28/20 21:05 Haloperidol 5 Mg Tablet PO TID PRN anxiety, agitation Hydroxyzine HCl 25 mg 11/29/20 16:45 Hydroxyzine Hcl 25 Mg Tablet PO BEDTIME PRN Anxiety Magnesium Hydroxide 30 ml 11/29/20 16:45 Milk Of Magnesia 30 Ml Oral.Susp PO DAILY PRN Constipation Nicotine Polacrilex 2 mg 11/29/20 21:10 Nicotine Polacrilex 2 Mg Gum BUCCAL Q2H PRN Nicotine Cravings Olanzapine 20 mg 12/06/20 21:00 12/15/20 21:08 Olanzapine 10 Mg Tablet PO 20 mg BEDTIME HERON Administration Oxcarbazepine 300 mg 11/29/20 09:00 12/15/20 21:07 Oxcarbazepine 300 Mg Tablet PO 300 mg BID HERON Administration Trazodone HCl 50 mg 11/28/20 21:05 12/02/20 21:36 Trazodone Hcl 50 Mg Tablet PO 50 mg BEDTIME PRN Administration Insomnia Allergies Allergies Allergy/AdvReac Type Severity Reaction Status Date / Time Penicillins [PCN] Allergy Unknown UNKNOWN Verified 10/05/20 19:44 Assessment & Plan Assessment & Plan (1) Schizoaffective disorder: Qualifiers: Schizoaffective disorder type: bipolar Qualified Code(s): F25.0 - Schizoaffective disorder, bipolar type Status: Acute Code(s): F25.9 - Schizoaffective disorder, unspecified Assessment and Plan: -Increase Gabapentin to 200 mg a.m. 100 mg pm -Benztropin 0.5 mg hs Greater than 50% of the session was spent on counseling and/or coordination of care Reason for contiued inpatient stay Substantial Risk for: rapid decompensation
[2020-12-16] MEDS: OXcarbazepine 300 MG TABLET PO ×2 (10:40→20:43)
[2020-12-16] MEDS: Gabapentin 100 MG CAPSULE 200 MG PO (10:40)
[2020-12-16 10:57] VITALS: BP 137/77; PULSE 71; TEMP 37.2; O2SAT 92
[2020-12-16 17:43] VITALS: BP 145/67; PULSE 66; TEMP 36.3
[2020-12-16] MEDS: Benztropine Mesylate 0.5 MG TABLET PO (20:43)
[2020-12-16] MEDS: OLANZapine 10 MG TABLET 20 MG PO (20:43)
[2020-12-16] MEDS: Gabapentin 100 MG CAPSULE PO (20:43)
[2020-12-17] MEDS: Gabapentin 100 MG CAPSULE 200 MG PO (10:25)
[2020-12-17] MEDS: OXcarbazepine 300 MG TABLET PO ×2 (10:25→20:42)
--- NOTE | 2020-12-17 17:26 | P.PNPSI_ITS ---
Subjective Subjective Date of Service: 12/17/20 Reason For Visit: Psychotic agitation Subjective Notes: Conditional Voluntary Interim History: I'm OK. I am ready to go to respite. Visible in milieu, interactive with team and peers, wandering, I am bored . Discussed medication titration. Medication Compliance: Yes Side effects from medications: No Attending Groups: Yes Review of Systems Review of Systems Yes all other systems are reviewed and are negative Psychiatric: Reports anxiety, Reports difficulty concentrating and Reports anhedonia Mental Status Exam Mental Status Exam Patient Appearance: Appropriate Patient Orientation: Person, Place and Situation Level of Consciousness: Awake and Alert Patient Behavior: Talkative Mood Description: Calm and Flat Affect Description: Flat Patient Cognition Impaired: No Ability to Follow Directions: Good Speech Pattern: Spontaneous Speech Memory Description: Intact Hallucinations: None Delusions: Not Present Thought Process: Rumination Thought Content: positive for [place] and positive for Circumstantial Depressive Symptoms: Unhappiness and Low Self Esteem Judgement: Good Diagnostics Vital Signs (24Hr): Vital Signs - 24 hr 12/16/20 17:43 Temperature 97.4 F Pulse Rate 66 Blood Pressure 145/67 H Body Mass Index 29.0 Medications Medications Current Medications Generic Name Dose Route Start Last Admin Trade Name Freq PRN Reason Stop Dose Admin Acetaminophen 650 mg 11/29/20 16:45 12/05/20 15:24 Acetaminophen 325 Mg Tablet PO 650 mg Q6H PRN Administration Headache/Pain Mild Scale (1-3) Al Hydroxide/Mg Hydroxide 30 ml 11/29/20 16:45 Magnesium Hydrox/Alum Hydrox 30 Ml Oral.Susp PO Q6H PRN Heartburn/Nausea Benztropine Mesylate 0.5 mg 11/28/20 21:05 Benztropine Mesylate 0.5 Mg Tablet PO TID PRN Extrapyramidal Effects Benztropine Mesylate 0.5 mg 12/14/20 21:00 12/16/20 20:43 Benztropine Mesylate 0.5 Mg Tablet PO 0.5 mg BEDTIME HERON Administration Gabapentin 200 mg 12/15/20 09:00 12/17/20 10:25 Gabapentin 100 Mg Capsule PO 200 mg DAILY HERON Administration Gabapentin 100 mg 12/14/20 21:00 12/16/20 20:43 Gabapentin 100 Mg Capsule PO 100 mg BEDTIME HERON Administration Haloperidol 5 mg 11/28/20 21:05 Haloperidol 5 Mg Tablet PO TID PRN anxiety, agitation Hydroxyzine HCl 25 mg 11/29/20 16:45 Hydroxyzine Hcl 25 Mg Tablet PO BEDTIME PRN Anxiety Magnesium Hydroxide 30 ml 11/29/20 16:45 Milk Of Magnesia 30 Ml Oral.Susp PO DAILY PRN Constipation Nicotine Polacrilex 2 mg 11/29/20 21:10 Nicotine Polacrilex 2 Mg Gum BUCCAL Q2H PRN Nicotine Cravings Olanzapine 20 mg 12/06/20 21:00 12/16/20 20:43 Olanzapine 10 Mg Tablet PO 20 mg BEDTIME HERON Administration Oxcarbazepine 300 mg 11/29/20 09:00 12/17/20 10:25 Oxcarbazepine 300 Mg Tablet PO 300 mg BID HERON Administration Trazodone HCl 50 mg 11/28/20 21:05 12/02/20 21:36 Trazodone Hcl 50 Mg Tablet PO 50 mg BEDTIME PRN Administration Insomnia Allergies Allergies Allergy/AdvReac Type Severity Reaction Status Date / Time Penicillins [PCN] Allergy Unknown UNKNOWN Verified 10/05/20 19:44 Assessment & Plan Assessment & Plan (1) Schizoaffective disorder: Qualifiers: Schizoaffective disorder type: bipolar Qualified Code(s): F25.0 - Schizoaffective disorder, bipolar type Status: Acute Code(s): F25.9 - Schizoaffective disorder, unspecified Assessment and Plan: -Continue current plan of care -Pt to transtion back to his residential via respite Greater than 50% of the session was spent on counseling and/or coordination of care Reason for contiued inpatient stay Substantial Risk for: harm to others, inability to function and rapid decompensation
[2020-12-17] MEDS: Gabapentin 100 MG CAPSULE PO (20:41)
[2020-12-17] MEDS: Benztropine Mesylate 0.5 MG TABLET PO (20:42)
[2020-12-17] MEDS: OLANZapine 10 MG TABLET 20 MG PO (20:42)
[2020-12-18] MEDS: Gabapentin 100 MG CAPSULE 200 MG PO (08:42)
[2020-12-18] MEDS: OXcarbazepine 300 MG TABLET PO ×2 (08:42→20:30)
--- NOTE | 2020-12-18 10:09 | P.PNPSI_ITS ---
Subjective Subjective Date of Service: 12/18/20 Reason For Visit: Psychotic agitation Interim History: Visable. Self-dialoguing. 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 Told pt Angela ALEXANDER was applying for respite. He was agreeable with this plan Medication Compliance: Yes Side effects from medications: No Attending Groups: Yes Review of Systems Reports behavioral changes Psychiatric: Reports behavioral changes Mental Status Exam Mental Status Exam Patient Appearance: Appropriate Patient Orientation: Person, Place and Situation Level of Consciousness: Awake and Alert Patient Behavior: Talkative, Cooperative and Wandering Mood Description: Blunted Affect Description: Blunted Patient Cognition Impaired: Yes Ability to Follow Directions: Good Speech Pattern: Spontaneous Speech Memory Description: Intact Hallucinations: Auditory (observed responding to internal stimuli) Thought Process: Goal Oriented Thought Content: positive for [place] and positive for Circumstantial Judgement: Fair Diagnostics Vital Signs (24Hr): Body Mass Index 29.0 Labs Labs: declines as he fears needles Medications Medications Current Medications Generic Name Dose Route Start Last Admin Trade Name Freq PRN Reason Stop Dose Admin Acetaminophen 650 mg 11/29/20 16:45 12/05/20 15:24 Acetaminophen 325 Mg Tablet PO 650 mg Q6H PRN Administration Headache/Pain Mild Scale (1-3) Al Hydroxide/Mg Hydroxide 30 ml 11/29/20 16:45 Magnesium Hydrox/Alum Hydrox 30 Ml Oral.Susp PO Q6H PRN Heartburn/Nausea Benztropine Mesylate 0.5 mg 11/28/20 21:05 Benztropine Mesylate 0.5 Mg Tablet PO TID PRN Extrapyramidal Effects Benztropine Mesylate 0.5 mg 12/14/20 21:00 12/17/20 20:42 Benztropine Mesylate 0.5 Mg Tablet PO 0.5 mg BEDTIME HERON Administration Gabapentin 200 mg 12/15/20 09:00 12/18/20 08:42 Gabapentin 100 Mg Capsule PO 200 mg DAILY HERON Administration Gabapentin 100 mg 12/14/20 21:00 12/17/20 20:41 Gabapentin 100 Mg Capsule PO 100 mg BEDTIME HERON Administration Haloperidol 5 mg 11/28/20 21:05 Haloperidol 5 Mg Tablet PO TID PRN anxiety, agitation Hydroxyzine HCl 25 mg 11/29/20 16:45 Hydroxyzine Hcl 25 Mg Tablet PO BEDTIME PRN Anxiety Magnesium Hydroxide 30 ml 11/29/20 16:45 Milk Of Magnesia 30 Ml Oral.Susp PO DAILY PRN Constipation Nicotine Polacrilex 2 mg 11/29/20 21:10 Nicotine Polacrilex 2 Mg Gum BUCCAL Q2H PRN Nicotine Cravings Olanzapine 20 mg 12/06/20 21:00 12/17/20 20:42 Olanzapine 10 Mg Tablet PO 20 mg BEDTIME HERON Administration Oxcarbazepine 300 mg 11/29/20 09:00 12/18/20 08:42 Oxcarbazepine 300 Mg Tablet PO 300 mg BID HERON Administration Trazodone HCl 50 mg 11/28/20 21:05 12/02/20 21:36 Trazodone Hcl 50 Mg Tablet PO 50 mg BEDTIME PRN Administration Insomnia Allergies Allergies Allergy/AdvReac Type Severity Reaction Status Date / Time Penicillins [PCN] Allergy Unknown UNKNOWN Verified 10/05/20 19:44 Assessment & Plan Assessment & Plan (1) Schizoaffective disorder: Qualifiers: Schizoaffective disorder type: bipolar Qualified Code(s): F25.0 - Schizoaffective disorder, bipolar type Status: Acute Code(s): F25.9 - Schizoaffective disorder, unspecified Greater than 50% of the session was spent on counseling and/or coordination of care Reason for contiued inpatient stay Substantial Risk for: rapid decompensation
[2020-12-18 18:00] VITALS: BP 125/72; PULSE 77; TEMP 37.4
[2020-12-18] MEDS: Gabapentin 100 MG CAPSULE PO (20:30)
[2020-12-18] MEDS: OLANZapine 10 MG TABLET 20 MG PO (20:30)
[2020-12-18] MEDS: Benztropine Mesylate 0.5 MG TABLET PO (20:30)
--- NOTE | 2020-12-19 08:29 | P.PNPSI_ITS ---
Subjective Subjective Date of Service: 12/19/20 Reason For Visit: Psychotic agitation Subjective Notes: Conditional Voluntary Interim History: Pt requested to talk with TW at the end of the afternoon. Asks what GUERRA I would like to trial for him. 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 Discussed Invega, SE, information on how he would receive the injection in community and the overall goal of medication use. Answered questions, pt asks to re-start Invega on 12/20/19 and prepare for GUERRA. Pt also requests that script writer call his long-term to request some changes of clothing. Medication Compliance: Yes Side effects from medications: No Attending Groups: Yes Review of Systems Review of Systems Yes all other systems are reviewed and are negative Psychiatric: Reports difficulty concentrating, Reports irritability and Reports mood swings Mental Status Exam Mental Status Exam Patient Appearance: Disheveled Patient Orientation: Person, Place and Situation Level of Consciousness: Awake, Appropriate and Alert Patient Behavior: Appropriate and Cooperative Mood Description: Calm Affect Description: Calm and Flat Patient Cognition Impaired: No Ability to Follow Directions: Good Speech Pattern: Spontaneous Speech Memory Description: Intact and Episodic Impaired Hallucinations: None Delusions: Not Present Thought Process: Intact Thought Content: positive for [place] and positive for Circumstantial Depressive Symptoms: Diff. Making Decisions Judgement: Good Diagnostics Vital Signs (24Hr): Vital Signs - 24 hr 12/18/20 18:00 Temperature 99.3 F Pulse Rate 77 Blood Pressure 125/72 Body Mass Index 29.0 Labs Labs: Refuses labs as he fears needles. Medications Medications Current Medications Generic Name Dose Route Start Last Admin Trade Name Gilbertq PRN Reason Stop Dose Admin Acetaminophen 650 mg 11/29/20 16:45 12/05/20 15:24 Acetaminophen 325 Mg Tablet PO 650 mg Q6H PRN Administration Headache/Pain Mild Scale (1-3) Al Hydroxide/Mg Hydroxide 30 ml 11/29/20 16:45 Magnesium Hydrox/Alum Hydrox 30 Ml Oral.Susp PO Q6H PRN Heartburn/Nausea Benztropine Mesylate 0.5 mg 11/28/20 21:05 Benztropine Mesylate 0.5 Mg Tablet PO TID PRN Extrapyramidal Effects Benztropine Mesylate 0.5 mg 12/14/20 21:00 12/18/20 20:30 Benztropine Mesylate 0.5 Mg Tablet PO 0.5 mg BEDTIME HERON Administration Gabapentin 200 mg 12/15/20 09:00 12/18/20 08:42 Gabapentin 100 Mg Capsule PO 200 mg DAILY HERON Administration Gabapentin 100 mg 12/14/20 21:00 12/18/20 20:30 Gabapentin 100 Mg Capsule PO 100 mg BEDTIME HERON Administration Haloperidol 5 mg 11/28/20 21:05 Haloperidol 5 Mg Tablet PO TID PRN anxiety, agitation Hydroxyzine HCl 25 mg 11/29/20 16:45 Hydroxyzine Hcl 25 Mg Tablet PO BEDTIME PRN Anxiety Magnesium Hydroxide 30 ml 11/29/20 16:45 Milk Of Magnesia 30 Ml Oral.Susp PO DAILY PRN Constipation Nicotine Polacrilex 2 mg 11/29/20 21:10 Nicotine Polacrilex 2 Mg Gum BUCCAL Q2H PRN Nicotine Cravings Olanzapine 20 mg 12/06/20 21:00 12/18/20 20:30 Olanzapine 10 Mg Tablet PO 20 mg BEDTIME HERON Administration Oxcarbazepine 300 mg 11/29/20 09:00 12/18/20 20:30 Oxcarbazepine 300 Mg Tablet PO 300 mg BID HERON Administration Trazodone HCl 50 mg 11/28/20 21:05 12/02/20 21:36 Trazodone Hcl 50 Mg Tablet PO 50 mg BEDTIME PRN Administration Insomnia Allergies Allergies Allergy/AdvReac Type Severity Reaction Status Date / Time Penicillins [PCN] Allergy Unknown UNKNOWN Verified 10/05/20 19:44 Assessment & Plan Assessment & Plan (1) Schizoaffective disorder: Qualifiers: Schizoaffective disorder type: bipolar Qualified Code(s): F25.0 - Schizoaffective disorder, bipolar type Status: Acute Code(s): F25.9 - Schizoaffective disorder, unspecified Assessment and Plan: Pt is agreeable to GUERRA. Will begin PO Invega on 12/20/20. Greater than 50% of the session was spent on counseling and/or coordination of care Reason for contiued inpatient stay Substantial Risk for: harm to self, harm to others and rapid decompensation
[2020-12-19] MEDS: Gabapentin 100 MG CAPSULE 200 MG PO (10:12)
[2020-12-19] MEDS: OXcarbazepine 300 MG TABLET PO (10:12)
[2020-12-19] MEDS: Gabapentin 100 MG CAPSULE PO (20:11)
[2020-12-19] MEDS: Benztropine Mesylate 0.5 MG TABLET PO (20:11)
[2020-12-20 07:00] VITALS: BMI 29.9
[2020-12-20] MEDS: Gabapentin 100 MG CAPSULE 200 MG PO (10:14)
[2020-12-20] MEDS: Paliperidone ER 3 MG TAB.ER.24 PO (10:15)
--- NOTE | 2020-12-20 14:36 | HO.PSYCHPN ---
Subjective Subjective Date of Service: 12/20/20 Reason For Visit: Psychotic agitation Subjective Notes: Conditional Voluntary Interim History: Per pt request, Invega 3mg po ordered today to replace Olanzapine with plan to transition to Invega Sustenna. Medication Compliance: No (did not take medications last night) Side effects from medications: No Attending Groups: Yes Review of Systems Review of Systems Yes all other systems are reviewed and are negative Reports behavioral changes Psychiatric: Reports behavioral changes, Reports difficulty concentrating and Reports auditory hallucinations Mental Status Exam Mental Status Exam Patient Appearance: Fatigued and Disheveled (pt has asked for a few changes of clothing from his program) Patient Orientation: Person, Place and Situation Level of Consciousness: Awake and Alert Patient Behavior: Appropriate Mood Description: Constricted Affect Description: Constricted Patient Cognition Impaired: No Ability to Follow Directions: Good Speech Pattern: Spontaneous Speech Memory Description: Episodic Impaired Hallucinations: Auditory Delusions: Not Present Thought Process: Distracted and Goal Oriented Thought Content: positive for [place], positive for Circumstantial and positive for Logical Depressive Symptoms: Thoughts of /Suicide (denies SI, plan,intent) Abnormal Motor Activity Signs and Symptoms: Restlessness Judgement: Fair Diagnostics Vital Signs (24Hr): Body Mass Index 29.9 Medications Medications Current Medications Generic Name Dose Route Start Last Admin Trade Name Freq PRN Reason Stop Dose Admin Acetaminophen 650 mg 11/29/20 16:45 12/05/20 15:24 Acetaminophen 325 Mg Tablet PO 650 mg Q6H PRN Administration Headache/Pain Mild Scale (1-3) Al Hydroxide/Mg Hydroxide 30 ml 11/29/20 16:45 Magnesium Hydrox/Alum Hydrox 30 Ml Oral.Susp PO Q6H PRN Heartburn/Nausea Benztropine Mesylate 0.5 mg 11/28/20 21:05 Benztropine Mesylate 0.5 Mg Tablet PO TID PRN Extrapyramidal Effects Benztropine Mesylate 0.5 mg 12/14/20 21:00 12/19/20 20:11 Benztropine Mesylate 0.5 Mg Tablet PO 0.5 mg BEDTIME HERON Administration Gabapentin 200 mg 12/15/20 09:00 12/20/20 10:14 Gabapentin 100 Mg Capsule PO 200 mg DAILY HERON Administration Gabapentin 100 mg 12/14/20 21:00 12/19/20 20:11 Gabapentin 100 Mg Capsule PO 100 mg BEDTIME HERON Administration Haloperidol 5 mg 11/28/20 21:05 Haloperidol 5 Mg Tablet PO TID PRN anxiety, agitation Hydroxyzine HCl 25 mg 11/29/20 16:45 Hydroxyzine Hcl 25 Mg Tablet PO BEDTIME PRN Anxiety Magnesium Hydroxide 30 ml 11/29/20 16:45 Milk Of Magnesia 30 Ml Oral.Susp PO DAILY PRN Constipation Nicotine Polacrilex 2 mg 11/29/20 21:10 Nicotine Polacrilex 2 Mg Gum BUCCAL Q2H PRN Nicotine Cravings Paliperidone 3 mg 12/20/20 09:45 12/20/20 10:15 Paliperidone Er 3 Mg Tab.Er.24 PO 3 mg DAILY HERON Administration Trazodone HCl 50 mg 11/28/20 21:05 12/02/20 21:36 Trazodone Hcl 50 Mg Tablet PO 50 mg BEDTIME PRN Administration Insomnia Allergies Allergies Allergy/AdvReac Type Severity Reaction Status Date / Time Penicillins [PCN] Allergy Unknown UNKNOWN Verified 10/05/20 19:44 Assessment & Plan Assessment & Plan (1) Schizoaffective disorder: Qualifiers: Schizoaffective disorder type: bipolar Qualified Code(s): F25.0 - Schizoaffective disorder, bipolar type Status: Acute Code(s): F25.9 - Schizoaffective disorder, unspecified Assessment and Plan: -Invega 3 mg daily -Plan is for respite transfer when a bed is available with return to [facility]. Greater than 50% of the session was spent on counseling and/or coordination of care Reason for contiued inpatient stay Substantial Risk for: rapid decompensation
[2020-12-20 15:19] LABS: Influenza A PCR NEGATIVE (Negative); Influenza B PCR NEGATIVE (Negative); Resp Syncy Virus RNA Qual PCR NEGATIVE (Negative); SARS COV2 PCR INHOUSE NEGATIVE (Negative)
[2020-12-20 18:00] VITALS: BP 138/73; PULSE 77; TEMP 37.2
[2020-12-20] MEDS: Gabapentin 100 MG CAPSULE PO (20:04)
[2020-12-20] MEDS: Benztropine Mesylate 0.5 MG TABLET PO (20:04)
[2020-12-21] MEDS: Paliperidone ER 3 MG TAB.ER.24 PO (10:32)
[2020-12-21] MEDS: Gabapentin 100 MG CAPSULE 200 MG PO (10:32)
--- NOTE | 2020-12-21 14:23 | HO.PSYCHPN ---
Subjective Subjective Date of Service: 12/21/20 Reason For Visit: Psychotic agitation Subjective Notes: Conditional Voluntary Interim History: Tolerating transition to Invega oral from Olanzapine. Agrees to titration and transition to IM . Discussed possible interest in [employer] program with [employer] to begin entry into [employer]. States he discussed this plan with his father and was encouraged to pursue his idea. Interactive, clear, precise in conversation today. Medication Compliance: Yes Side effects from medications: No Attending Groups: Yes Review of Systems Review of Systems Yes all other systems are reviewed and are negative (denies) Reports behavioral changes Psychiatric: Reports behavioral changes Mental Status Exam Mental Status Exam Patient Appearance: Appropriate Patient Orientation: Person, Place, Time and Situation Level of Consciousness: Awake and Alert Patient Behavior: Appropriate Mood Description: Calm Affect Description: Calm Patient Cognition Impaired: No Ability to Follow Directions: Good Speech Pattern: Clear, Spontaneous Speech and Soft-Spoken Memory Description: Intact Hallucinations: None Delusions: Not Present Thought Process: Intact Thought Content: positive for Intact Depressive Symptoms: Thoughts of /Suicide (denies SI, plan, intent) Judgement: Good Diagnostics Vital Signs (24Hr): Vital Signs - 24 hr 12/20/20 18:00 Temperature 98.9 F Pulse Rate 77 Blood Pressure 138/73 Body Mass Index 29.9 Labs Labs: Laboratory Results - last 48 hr 12/20/20 13:38 Coronavirus (PCR) NEGATIVE Influenza Type A (PCR) NEGATIVE Influenza Type B (PCR) NEGATIVE RSV RNA Qual (PCR) NEGATIVE Medications Medications Current Medications Generic Name Dose Route Start Last Admin Trade Name Freq PRN Reason Stop Dose Admin Acetaminophen 650 mg 11/29/20 16:45 12/05/20 15:24 Acetaminophen 325 Mg Tablet PO 650 mg Q6H PRN Administration Headache/Pain Mild Scale (1-3) Al Hydroxide/Mg Hydroxide 30 ml 11/29/20 16:45 Magnesium Hydrox/Alum Hydrox 30 Ml Oral.Susp PO Q6H PRN Heartburn/Nausea Benztropine Mesylate 0.5 mg 11/28/20 21:05 Benztropine Mesylate 0.5 Mg Tablet PO TID PRN Extrapyramidal Effects Benztropine Mesylate 0.5 mg 12/14/20 21:00 12/20/20 20:04 Benztropine Mesylate 0.5 Mg Tablet PO 0.5 mg BEDTIME HERON Administration Gabapentin 200 mg 12/15/20 09:00 12/21/20 10:32 Gabapentin 100 Mg Capsule PO 200 mg DAILY HERON Administration Gabapentin 100 mg 12/14/20 21:00 12/20/20 20:04 Gabapentin 100 Mg Capsule PO 100 mg BEDTIME HERON Administration Haloperidol 5 mg 11/28/20 21:05 Haloperidol 5 Mg Tablet PO TID PRN anxiety, agitation Hydroxyzine HCl 25 mg 11/29/20 16:45 Hydroxyzine Hcl 25 Mg Tablet PO BEDTIME PRN Anxiety Magnesium Hydroxide 30 ml 11/29/20 16:45 Milk Of Magnesia 30 Ml Oral.Susp PO DAILY PRN Constipation Nicotine Polacrilex 2 mg 11/29/20 21:10 Nicotine Polacrilex 2 Mg Gum BUCCAL Q2H PRN Nicotine Cravings Paliperidone 6 mg 12/22/20 09:00 Paliperidone Er 6 Mg Tab.Er.24 PO DAILY HERON Trazodone HCl 50 mg 11/28/20 21:05 12/02/20 21:36 Trazodone Hcl 50 Mg Tablet PO 50 mg BEDTIME PRN Administration Insomnia Allergies Allergies Allergy/AdvReac Type Severity Reaction Status Date / Time Penicillins [PCN] Allergy Unknown UNKNOWN Verified 10/05/20 19:44 Assessment & Plan Assessment & Plan (1) Schizoaffective disorder: Qualifiers: Schizoaffective disorder type: bipolar Qualified Code(s): F25.0 - Schizoaffective disorder, bipolar type Status: Acute Code(s): F25.9 - Schizoaffective disorder, unspecified Assessment and Plan: -Increase Invega to 6 mg daily. -Plan for Invega Sustenna next week and respite transition when there is an available bed. Greater than 50% of the session was spent on counseling and/or coordination of care Reason for contiued inpatient stay Substantial Risk for: rapid decompensation
[2020-12-21 18:00] VITALS: BP 140/81; PULSE 72; TEMP 37.2
[2020-12-21] MEDS: Benztropine Mesylate 0.5 MG TABLET PO (20:33)
[2020-12-21] MEDS: Gabapentin 100 MG CAPSULE PO (20:33)
[2020-12-22] MEDS: Paliperidone ER 6 MG TAB.ER.24 PO (11:06)
[2020-12-22] MEDS: Gabapentin 100 MG CAPSULE 200 MG PO (11:06)
[2020-12-22 16:40] VITALS: BP 127/68; PULSE 84; TEMP 37.2
--- NOTE | 2020-12-22 18:18 | P.PNPSI_ITS ---
Subjective Subjective Date of Service: 12/22/20 Reason For Visit: Psychotic agitation Interim History: Tolerating transition to Invega oral from Olanzapine. No reported or observed side effects. Review of Systems Review of Systems Yes all other systems are reviewed and are negative (denies) Constitutional: Reports headache(s) (? Med SE) Reports headache(s) (? Med SE) Reports behavioral changes and Reports headache(s) (? Med SE) Psychiatric: Reports anxiety, Reports behavioral changes, Reports depression, Reports difficulty concentrating, Reports auditory hallucinations, Reports hopelessness, Reports irritability, Reports anhedonia, Reports mood swings and Reports paranoia Mental Status Exam Mental Status Exam Patient Appearance: Appropriate Patient Orientation: Person, Place, Time and Situation Level of Consciousness: Awake and Alert Patient Behavior: Appropriate Mood Description: Calm Affect Description: Calm Patient Cognition Impaired: No Ability to Follow Directions: Good Speech Pattern: Clear, Spontaneous Speech and Soft-Spoken Memory Description: Intact Judgement: Good Diagnostics Vital Signs (24Hr): Body Mass Index 29.9 Medications Medications Current Medications Generic Name Dose Route Start Last Admin Trade Name Freq PRN Reason Stop Dose Admin Acetaminophen 650 mg 11/29/20 16:45 12/05/20 15:24 Acetaminophen 325 Mg Tablet PO 650 mg Q6H PRN Administration Headache/Pain Mild Scale (1-3) Al Hydroxide/Mg Hydroxide 30 ml 11/29/20 16:45 Magnesium Hydrox/Alum Hydrox 30 Ml Oral.Susp PO Q6H PRN Heartburn/Nausea Benztropine Mesylate 0.5 mg 11/28/20 21:05 Benztropine Mesylate 0.5 Mg Tablet PO TID PRN Extrapyramidal Effects Benztropine Mesylate 0.5 mg 12/14/20 21:00 12/21/20 20:33 Benztropine Mesylate 0.5 Mg Tablet PO 0.5 mg BEDTIME HERON Administration Gabapentin 200 mg 12/15/20 09:00 12/22/20 11:06 Gabapentin 100 Mg Capsule PO 200 mg DAILY HERON Administration Gabapentin 100 mg 12/14/20 21:00 12/21/20 20:33 Gabapentin 100 Mg Capsule PO 100 mg BEDTIME HERON Administration Haloperidol 5 mg 11/28/20 21:05 Haloperidol 5 Mg Tablet PO TID PRN anxiety, agitation Hydroxyzine HCl 25 mg 11/29/20 16:45 Hydroxyzine Hcl 25 Mg Tablet PO BEDTIME PRN Anxiety Magnesium Hydroxide 30 ml 11/29/20 16:45 Milk Of Magnesia 30 Ml Oral.Susp PO DAILY PRN Constipation Nicotine Polacrilex 2 mg 11/29/20 21:10 Nicotine Polacrilex 2 Mg Gum BUCCAL Q2H PRN Nicotine Cravings Paliperidone 6 mg 12/22/20 09:00 12/22/20 11:06 Paliperidone Er 6 Mg Tab.Er.24 PO 6 mg DAILY HERON Administration Trazodone HCl 50 mg 11/28/20 21:05 12/02/20 21:36 Trazodone Hcl 50 Mg Tablet PO 50 mg BEDTIME PRN Administration Insomnia Allergies Allergies Allergy/AdvReac Type Severity Reaction Status Date / Time Penicillins [PCN] Allergy Unknown UNKNOWN Verified 10/05/20 19:44 Assessment & Plan Assessment & Plan (1) Schizoaffective disorder: Qualifiers: Schizoaffective disorder type: bipolar Qualified Code(s): F25.0 - Schizoaffective disorder, bipolar type Status: Acute Code(s): F25.9 - Schizoaffective disorder, unspecified Assessment and Plan: -Continue with current treatment plan -Increase Invega to 6 mg daily. -Plan for Invega Sustenna next week and respite transition when there is an av ailable bed. Greater than 50% of the session was spent on counseling and/or coordination of care Patient educated on: medication risk/benefits Informed Consent: understands and further education needed Reason for contiued inpatient stay Substantial Risk for: inability to function and med/psych decompensation
[2020-12-22] MEDS: Benztropine Mesylate 0.5 MG TABLET PO (21:07)
[2020-12-22] MEDS: Gabapentin 100 MG CAPSULE PO (21:07)
[2020-12-23] MEDS: Gabapentin 100 MG CAPSULE 200 MG PO (09:47)
[2020-12-23] MEDS: Paliperidone ER 6 MG TAB.ER.24 PO (09:48)
--- NOTE | 2020-12-23 16:26 | HO.PSYCHPN ---
Subjective Subjective Date of Service: 12/23/20 Reason For Visit: Psychotic agitation Subjective Notes: Conditional Voluntary Interim History: Tolerating transition to Invega oral from Olanzapine. No reported or observed side effects. isolating, declined to talk to TW Medication Compliance: Yes Side effects from medications: No Attending Groups: No Review of Systems Review of Systems Yes all other systems are reviewed and are negative (denies) Constitutional: Reports headache(s) (? Med SE) Reports headache(s) (? Med SE) Reports behavioral changes and Reports headache(s) (? Med SE) Psychiatric: Reports anxiety, Reports behavioral changes, Reports depression, Reports difficulty concentrating, Reports auditory hallucinations, Reports hopelessness, Reports irritability, Reports anhedonia, Reports mood swings and Reports paranoia Mental Status Exam Mental Status Exam Patient Appearance: Appropriate Patient Orientation: Person, Place, Time and Situation Level of Consciousness: Awake and Alert Patient Behavior: Appropriate Mood Description: Calm Affect Description: Calm and Withdrawn Patient Cognition Impaired: No Ability to Follow Directions: Good Speech Pattern: Clear, Spontaneous Speech and Soft-Spoken Memory Description: Intact Judgement: Fair Diagnostics Vital Signs (24Hr): Vital Signs - 24 hr 12/22/20 16:40 Temperature 98.9 F Pulse Rate 84 Blood Pressure 127/68 Body Mass Index 29.9 Medications Medications Current Medications Generic Name Dose Route Start Last Admin Trade Name Freq PRN Reason Stop Dose Admin Acetaminophen 650 mg 11/29/20 16:45 12/05/20 15:24 Acetaminophen 325 Mg Tablet PO 650 mg Q6H PRN Administration Headache/Pain Mild Scale (1-3) Al Hydroxide/Mg Hydroxide 30 ml 11/29/20 16:45 Magnesium Hydrox/Alum Hydrox 30 Ml Oral.Susp PO Q6H PRN Heartburn/Nausea Benztropine Mesylate 0.5 mg 11/28/20 21:05 Benztropine Mesylate 0.5 Mg Tablet PO TID PRN Extrapyramidal Effects Benztropine Mesylate 0.5 mg 12/14/20 21:00 12/22/20 21:07 Benztropine Mesylate 0.5 Mg Tablet PO 0.5 mg BEDTIME HERON Administration Gabapentin 200 mg 12/15/20 09:00 12/23/20 09:47 Gabapentin 100 Mg Capsule PO 200 mg DAILY HERON Administration Gabapentin 100 mg 12/14/20 21:00 12/22/20 21:07 Gabapentin 100 Mg Capsule PO 100 mg BEDTIME HERON Administration Haloperidol 5 mg 11/28/20 21:05 Haloperidol 5 Mg Tablet PO TID PRN anxiety, agitation Hydroxyzine HCl 25 mg 11/29/20 16:45 Hydroxyzine Hcl 25 Mg Tablet PO BEDTIME PRN Anxiety Magnesium Hydroxide 30 ml 11/29/20 16:45 Milk Of Magnesia 30 Ml Oral.Susp PO DAILY PRN Constipation Nicotine Polacrilex 2 mg 11/29/20 21:10 Nicotine Polacrilex 2 Mg Gum BUCCAL Q2H PRN Nicotine Cravings Paliperidone 6 mg 12/22/20 09:00 12/23/20 09:48 Paliperidone Er 6 Mg Tab.Er.24 PO 6 mg DAILY HERON Administration Trazodone HCl 50 mg 11/28/20 21:05 12/02/20 21:36 Trazodone Hcl 50 Mg Tablet PO 50 mg BEDTIME PRN Administration Insomnia Allergies Allergies Allergy/AdvReac Type Severity Reaction Status Date / Time Penicillins [PCN] Allergy Unknown UNKNOWN Verified 10/05/20 19:44 Assessment & Plan Assessment & Plan (1) Schizoaffective disorder: Qualifiers: Schizoaffective disorder type: bipolar Qualified Code(s): F25.0 - Schizoaffective disorder, bipolar type Status: Acute Code(s): F25.9 - Schizoaffective disorder, unspecified Assessment and Plan: -Continue with current treatment plan -Increase Invega to 6 mg daily. -Plan for Invega Sustenna next week and respite transition when there is an available bed. Greater than 50% of the session was spent on counseling and/or coordination of care Reason for contiued inpatient stay Substantial Risk for: harm to self, inability to function, rapid decompensation and med/psych decompensation
[2020-12-23 18:00] VITALS: BP 130/75; PULSE 81; TEMP 37.1
[2020-12-23] MEDS: Benztropine Mesylate 0.5 MG TABLET PO (20:06)
[2020-12-23] MEDS: Gabapentin 100 MG CAPSULE PO (20:06)
[2020-12-24] MEDS: Gabapentin 100 MG CAPSULE 200 MG PO (10:10)
[2020-12-24] MEDS: Paliperidone Palmitate 234 MG/1.5 ML SYRINGE IM (11:07)
[2020-12-24 18:00] VITALS: BP 129/77; PULSE 89; TEMP 37.4
--- NOTE | 2020-12-24 18:04 | HO.PSYCHPN ---
Subjective Subjective Date of Service: 12/24/20 Reason For Visit: Psychotic agitation Subjective Notes: Conditional Voluntary Interim History: Planning for discharge to respite on 12/25/20. Gillian Sustenna IM given 234 mg today. Pt reports he is ready to go to respite Medication Compliance: Yes Side effects from medications: No Attending Groups: Yes Review of Systems Review of Systems Yes all other systems are reviewed and are negative (denies) Psychiatric: Reports no additional psychiatric complaints Mental Status Exam Mental Status Exam Patient Appearance: Appropriate Patient Orientation: Person, Place and Situation Level of Consciousness: Awake and Alert Patient Behavior: Appropriate Mood Description: Calm Affect Description: Calm and Flat Patient Cognition Impaired: No Ability to Follow Directions: Good Speech Pattern: Spontaneous Speech Memory Description: Episodic Impaired Hallucinations: None Delusions: Not Present Thought Process: Intact Thought Content: positive for Intact Depressive Symptoms: Increased Anxiety (regarding upcoming changes) Judgement: Fair Diagnostics Vital Signs (24Hr): Body Mass Index 29.9 Labs Labs: Refuses labs. Medications Medications Current Medications Generic Name Dose Route Start Last Admin Trade Name Freq PRN Reason Stop Dose Admin Acetaminophen 650 mg 11/29/20 16:45 12/05/20 15:24 Acetaminophen 325 Mg Tablet PO 650 mg Q6H PRN Administration Headache/Pain Mild Scale (1-3) Al Hydroxide/Mg Hydroxide 30 ml 11/29/20 16:45 Magnesium Hydrox/Alum Hydrox 30 Ml Oral.Susp PO Q6H PRN Heartburn/Nausea Benztropine Mesylate 0.5 mg 11/28/20 21:05 Benztropine Mesylate 0.5 Mg Tablet PO TID PRN Extrapyramidal Effects Benztropine Mesylate 0.5 mg 12/14/20 21:00 12/23/20 20:06 Benztropine Mesylate 0.5 Mg Tablet PO 0.5 mg BEDTIME HERON Administration Gabapentin 200 mg 12/15/20 09:00 12/24/20 10:10 Gabapentin 100 Mg Capsule PO 200 mg DAILY HERON Administration Gabapentin 100 mg 12/14/20 21:00 12/23/20 20:06 Gabapentin 100 Mg Capsule PO 100 mg BEDTIME HERON Administration Haloperidol 5 mg 11/28/20 21:05 Haloperidol 5 Mg Tablet PO TID PRN anxiety, agitation Hydroxyzine HCl 25 mg 11/29/20 16:45 Hydroxyzine Hcl 25 Mg Tablet PO BEDTIME PRN Anxiety Magnesium Hydroxide 30 ml 11/29/20 16:45 Milk Of Magnesia 30 Ml Oral.Susp PO DAILY PRN Constipation Nicotine Polacrilex 2 mg 11/29/20 21:10 Nicotine Polacrilex 2 Mg Gum BUCCAL Q2H PRN Nicotine Cravings Trazodone HCl 50 mg 11/28/20 21:05 12/02/20 21:36 Trazodone Hcl 50 Mg Tablet PO 50 mg BEDTIME PRN Administration Insomnia Allergies Allergies Allergy/AdvReac Type Severity Reaction Status Date / Time Penicillins [PCN] Allergy Unknown UNKNOWN Verified 10/05/20 19:44 Assessment & Plan Assessment & Plan (1) Schizoaffective disorder: Qualifiers: Schizoaffective disorder type: bipolar Qualified Code(s): F25.0 - Schizoaffective disorder, bipolar type Status: Acute Code(s): F25.9 - Schizoaffective disorder, unspecified Greater than 50% of the session was spent on counseling and/or coordination of care Patient educated on: medication risk/benefits and therapeutic strategies Informed Consent: further education needed Reason for contiued inpatient stay Substantial Risk for: stable for discharge
[2020-12-24] MEDS: Gabapentin 100 MG CAPSULE PO (20:17)
[2020-12-24] MEDS: Benztropine Mesylate 0.5 MG TABLET PO (20:18)
[2020-12-25 06:00] VITALS: BP 127/71; PULSE 72; TEMP 36.4; O2SAT 94
[2020-12-25] MEDS: Gabapentin 100 MG CAPSULE 200 MG PO (09:10)
[2020-12-25 10:55] LABS: COVID-19 Test Negative (Negative); IDNOW Serial# 9DD0AD1C
--- NOTE | 2020-12-25 18:52 | P.DS_ITS ---
DS: Providers Provider Date of Service: 12/29/20 Date of admission: 11/29/20 15:26 Date of discharge: 12/25/20 Primary care physician: Rena Aguilera [employer]CH[employer]ICAL SUPPORT PROFESSIONAL Admitting clinician: Sherlyn Juarez Attending physician on admission: Leandro Mishra Attending physician on discharge: Leandro iMshra Discharging clinician: Sherlyn Juarez DS: Diagnosis Discharge Diagnosis (1) Schizoaffective disorder: Status: Acute Problem details: 25 yo male who had been discharged a week prior to re-admit. Pt stopped medications when at his residential program with resulting increase in paranoia, delusions, and increased responding to internal stimuli. Appetite was decreased- pt reportedly was only consuming soda. He was sent to the ER for assessment where he required restraint. [facility] is in process and it is anticipated within the next several months. DS: Medications Discharge Medications Home Medications: Previous Rx's Medication Instructions Recorded benztropine 0.5 mg PO TID PRN #90 tab 12/25/20 gabapentin 100 mg PO BEDTIME #30 cap 12/25/20 gabapentin 200 mg PO DAILY #60 cap 12/25/20 hydroxyzine HCl 25 mg PO BEDTIME PRN #30 tab 12/25/20 paliperidone palmitate [Invega 156 mg IM .01/01/2021 #1 ml 12/25/20 Sustenna] trazodone 50 mg PO BEDTIME PRN #30 tab 12/25/20 Discharge Plan Discharge Anticipated Discharge Date/Time: 12/25/20 16:00 Patient Disposition: Xfer to Respite Facility Referrals: Dr. Ash, psychiatrist, [facility] [Other] ([facility] will see Dr. Ash when he returns to [facility] from his stay at [facility]) Rena Aguilera, RANDY [Nurse Practitioner] - 01/07/21 3:20 pm (telehealth call) Discharge Medications: New hydroxyzine HCl 25 mg Tablet 25 mg PO BEDTIME PRN (Reason: Anxiety) Qty: 30 RF: 0 gabapentin 100 mg Capsule 200 mg PO DAILY Qty: 60 RF: 0 gabapentin 100 mg Capsule 100 mg PO BEDTIME Qty: 30 RF: 0 Invega Sustenna 156 mg/mL syringe 156 mg IM .01/01/2021 Qty: 1 RF: 0 Continued benztropine 0.5 mg Tablet 0.5 mg PO TID PRN (Reason: Extrapyramidal Effects) Qty: 90 RF: 0 trazodone 50 mg Tablet 50 mg PO BEDTIME PRN (Reason: Insomnia) Qty: 30 RF: 0 Discontinued haloperidol 5 mg Tablet 5 mg PO TID PRN (Reason: anxiety, agitation) Qty: 42 RF: 0 oxcarbazepine 300 mg Tablet 300 mg PO BID Qty: 60 RF: 0 gabapentin 100 mg Capsule 100 mg PO BID Qty: 60 RF: 0 olanzapine [Zyprexa] 20 mg tablet 20 mg PO BEDTIME Qty: 30 RF: 0 Discharge Orders: Discharge Order (Routine); Ordered 12/25/20 Ordered By: Sherlyn Juarez Diet: advance to usual diet Activity on Discharge: As tolerated Stand Alone Forms: Community Support Print Language: Martiniquais Care Plan Goals: Mood Stability Health Concerns: none currently Plan of Treatment: Discharge to Respite. Transition to [facility] via respite The next Invega injection is scheduled for 01/01/21. The dose is 156 mg. After this injection, you will have a monthly injection of Invega. Take oral medications as directed Follow up with your out patient providers as scheduled Contact [facility] to discuss your interest in continuing your education. Discharge Date/Time: 12/25/20 13:05 Mental Status Exam Mental Status Exam Patient Appearance: Appropriate Patient Orientation: Person, Place, Time and Situation Level of Consciousness: Alert Patient Behavior: Appropriate and Cooperative Mood Description: Calm Affect Description: Calm and Flat Patient Cognition Impaired: No Ability to Follow Directions: Good Speech Pattern: Spontaneous Speech and Soft-Spoken Memory Description: Intact Hallucinations: Auditory (chronic) Delusions: Not Present Thought Process: Intact Thought Content: positive for Intact Judgement: Good Data Data Completed and Pending Completed studies during hospitalization [Text1]: 12/20/20 12/25/20 13:38 10:25 Coronavirus (PCR) NEGATIVE COVID-19 (JINNY) Negative COVID-19 Clin Com See Note Influenza Type A (PCR) NEGATIVE Influenza Type B (PCR) NEGATIVE RSV RNA Qual (PCR) NEGATIVE DS: Summary Hospital Course Hospital Course: Pt was re-admitted on CV. This was one of several admissions for medication non- adherence. He initally agreed to Invega with transition to GUERRA Sustenna, then changed his thinking and refused, asking for a return to Olanzapine. He met with the team regularly during admission and with the assistance of his residential team, his out patient team, the team and his regulatory attorney, he decided to return to the [facility] so he could interrupt the pattern of readmission and move forward with his goals for career and more independent living. He was an active participant in the milieu, as by history he has not participated. He attended most groups and activities and demonstrated significant improvement. He did refuse diagnostics during the admission, citing not wanting needles. He received his first injection on 12/24/20 and will transition back to [facility] via [facility] respite placement. Status at Discharge Cognitive/behavioral status at discharge: alert, oriented, non suicidal, non homicidal, non psychotic Functional status at discharge: independent ambulation Overall status at discharge: patient is back to baseline Time Spent with Patient Time attestation: Total time spent providing and/or coordinating discharge services:40 Time spent: Greater than 30 minutes
== END 2020-12-25 13:05 | DRG 750 ==
LOC: HO.ED 11-29 15:37 → HO.PM5 11-29 15:53
PROVIDERS: Physician Assistant; Admitting Provider Psychiatry & Neurology Psychiatry; Emergency Provider Emergency Medicine Emergency Medical Services; Visit Provider Clinical Nurse Specialist Psychiatric/Mental Health, Adult
DX: F25.0 Schizoaffective disorder, bipolar type (principal); Z91.14 Patient's other noncompliance with medication regimen; F17.210 Nicotine dependence, cigarettes, uncomplicated; Z71.6 Tobacco abuse counseling; F43.10 Post-traumatic stress disorder, unspecified; Z20.822 Contact with and (suspected) exposure to COVID-19; Z88.0 Allergy status to penicillin; Z79.899 Other long term (current) drug therapy
CPT/HCPCS: 0241U; 36415; 80320; 87635; 96372; 99222; 99232; 99233; 99285; J2060; J2426

== ENCOUNTER 2021-03-29 11:53 | Inpatient (IN) | payer OTHER, MEDICAID, SELFPAY ==
--- NOTE | ~2021-03-29 | CT_ITS ---
EXAMINATION: CT FACIAL BONES WITHOUT CONTRAST CLINICAL INFORMATION: Facial trauma COMPARISON: None TECHNIQUE: 3 mm thin axial and reformatted 1.5 mm thin sagittal and coronal images of facial bones were obtained. This CT examination was performed using dose optimization techniques as appropriate, variously including the following: *Automated exposure control *Adjustment of mA and/or kV according to patient size (this includes techniques or standardized protocols for targeted exams where dose is matched to indication/reason for exam; i.e. extremities or head) *Use of iterative reconstruction technique DLP: 300 mGy-cm FINDINGS: There is no acute maxillofacial fracture. The pterygoid plates are intact. The zygomatic arches are intact. The lamina papyracea are intact. The orbital rims are intact. The paranasal sinuses are well-aerated. No air-fluid levels are seen. The nasal septum is midline. The ostiomeatal complexes are clear. The lamina papyracea are intact. The ethmoid roofs are symmetric. The carotid canals are normally covered by bone. No maxillary periapical disease is seen. The mastoid air cells and visualized middle ear cavities are well-aerated. The orbits are normal. The TMJs are unremarkable. The imaged portions of the brain demonstrate no acute abnormality. CT/CT facial bones wo con IMPRESSION: No acute intracranial process or discrete facial bone fracture.
--- NOTE | ~2021-03-29 | XR_ITS ---
EXAMINATION: FACIAL BONES AND RIGHT HAND X-RAY CLINICAL INFORMATION: Trauma COMPARISON: Previous right hand x-ray March 2018 TECHNIQUE: 4 views of the facial bones and one view of the right hand FINDINGS: Facial bones: No facial bone fracture or dislocation is seen. Paranasal sinuses are clear. Soft tissues are normal. Right hand: Bone alignment is normal. No fracture or dislocation is seen. The joint spaces are normal appearing. There is a small cyst seen in the ulnar side of the third metacarpal head unchanged from 2018 exam. Soft tissues are unremarkable. XR/XR hand RT 2V IMPRESSION: No fracture or dislocation seen.
--- NOTE | ~2021-03-29 | XR_ITS ---
EXAMINATION: FACIAL BONES AND RIGHT HAND X-RAY CLINICAL INFORMATION: Trauma COMPARISON: Previous right hand x-ray March 2018 TECHNIQUE: 4 views of the facial bones and one view of the right hand FINDINGS: Facial bones: No facial bone fracture or dislocation is seen. Paranasal sinuses are clear. Soft tissues are normal. Right hand: Bone alignment is normal. No fracture or dislocation is seen. The joint spaces are normal appearing. There is a small cyst seen in the ulnar side of the third metacarpal head unchanged from 2018 exam. Soft tissues are unremarkable. XR/XR facial bones <3V IMPRESSION: No fracture or dislocation seen.
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
[2021-03-29 12:19] VITALS: RESP 24
--- NOTE | 2021-03-29 12:30 | PC.NURSE ---
Pt arrived to unit via EMS, able to complete changeover w/ coaxing but appears angry, easily agitated, disorganized. Declined vitals, declined to engage in assessment. Currently in common area watching television. Pt familiar w/ pod.
--- NOTE | 2021-03-29 12:53 | PC.NURSE ---
Pt declined lunch, stated he has already eaten.
[2021-03-29 14:00] VITALS: RESP 18
--- NOTE | 2021-03-29 15:19 | PC.NURSE ---
pt out in common area, declining to go into room at this time. pt easily irritated, becomes verbally agitated when pressed, disorganized.
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
[2021-03-29 16:00] VITALS: RESP 18
--- NOTE | 2021-03-29 16:28 | MHC.CARE ---
CARE Team reaches out to Dali Gonzalez, social work msw from [facility] who issued the section 12 that patient arrived on today.Voicemail left. CARE Team reached out to [facility] child welfare manager, Rossy, who reports that pt no jovonher resides there. Pt was stepped down from M5 to CCS in December. CARE Team reaches out to [facility] crisis stewardess supervisor,Lon Carter, who reports that [facility] clinician will be here at approx 1800 to assess pt. Pending full crisis assessment, pt will most likely meet [facility]. Plan is for pt to await [facility] assessment at this time. Call returned from [facility] by Ghislaine Roman, who reports that pt has been decompensating over the past month. He was asked to leave respite due to marijuana use, and got a hotel with two peers. Pt has stopped taking medications since this time and has become increasingly disorganized and is hearing voices. Ghislaine feels that pt should be hospitalized at this time, as he is at risk in the community. CARE Team communicates this recommendation to EMELINA Miller, who is in agreement with this plan.
--- NOTE | 2021-03-29 16:30 | PC.NURSE ---
Pt continues to sit out in common area- snatched BP cuff from A when asked re: vitals, pt yelling, accusatory, disorganized. Security in; with discussion, pt agreed to take PRN Zyprexa as ordered.
--- NOTE | 2021-03-29 17:19 | PC.NURSE ---
Pt in common area, resting, no further episodes of agitation at this time.
--- NOTE | 2021-03-29 17:27 | PC.NURSE ---
Addendum entered by Oksana Carter 03/29/21 17:28: Per documentation received from [facility], pt has been off medications x 2 months. Original Note: Attempted medication reconciliation w/ [place] [facility] per documentation from [facility]: pt has one prescription for Zyprexa 10 mg which has not been picked up.
[2021-03-29 18:00] VITALS: RESP 20
--- NOTE | 2021-03-29 18:20 | PC.NURSE ---
BHN in to evaluate
--- NOTE | 2021-03-29 19:43 | PC.NURSE ---
Report received. PT is sleeping in bed. Respirations even and unlabored. Refusing labs, tests, and vitals at this time. PT is inpatient bed search.
--- NOTE | 2021-03-30 01:29 | PC.NURSE ---
PT woke up from sleep, demanding to use the phone but refusing to use the PT phone. PT also demanding katty mejia and then a towel. PT given a pitcher with katty mejia and then went in to take a shower.
[2021-03-30 06:25] VITALS: RESP 14
--- NOTE | 2021-03-30 06:58 | PC.NURSE ---
received report from prior RN patient appears to remain asleep with even unlabored breaths. appears in no distress
--- NOTE | 2021-03-30 08:46 | PC.NURSE ---
patient presented with prn zyprexa i dont need your meds, i have my own drugs can go to [facility] pharmacy t/w told patient purpose for bringing meds was to help him have a better day because patient looked irritable a/e/b patient coming out and wordlessly leaving pitcher on counter.
--- NOTE | 2021-03-30 09:16 | MHC.CARE ---
CARE team called [facility] coke handling supervisor David and confimred that pt was seen last night at 1815 and is dispo is [facility] bedsearch
[2021-03-30] MEDS: OLANZapine 5 MG TABLET PO (16:03)
--- NOTE | 2021-03-30 19:04 | PC.NURSE ---
Report received. PT is sitting in his bed drinking a coffee. Calm and cooperative. PT is inpatient bed search.
[2021-03-30] MEDS: OLANZapine 10 MG TABLET PO (22:18)
--- NOTE | 2021-03-31 07:05 | PC.NURSE ---
Report recieved. PT currently sleeping, respirations even and unlabored, in no apparent distress. PT is inpatient bedsearch.
[2021-03-31 08:26] VITALS: RESP 18
--- NOTE | 2021-03-31 09:12 | PC.NURSE ---
PT approached nurses station and asked if staff smoked ganja stating I'm schizophrenic so I smoke ganja to stop the voices PT states smoking helps with the voices. PT calm and pleasant in conversation.
[2021-03-31] MEDS: OLANZapine 5 MG TABLET PO ×2 (10:10→18:28)
--- NOTE | 2021-03-31 10:49 | PC.NURSE ---
PT irritable, asking why he is here, explained he is on a section 12, pt nonsensicle, asking if he is here because he is pretty and if he should cut his face to be less pretty then can go home. Plan of care explained, verbally redirected. PT currently pacing around the unit.
[2021-03-31 16:32] VITALS: RESP 16
--- NOTE | 2021-03-31 19:21 | PC.NURSE ---
Report received. PT is sitting in the common area eating a snack. Calm and cooperative. PT is inpatient bed search.
--- NOTE | 2021-03-31 21:46 | PC.NURSE ---
PT refused night time med, stating that he already took it earlier. This nurse explained to the PT that the med he took earlier was the same med, but just smaller dose prescribed for as needed use.
[2021-04-01 02:27] VITALS: BP 152/80; PULSE 72; RESP 16; TEMP 36.6; O2SAT 98
--- NOTE | 2021-04-01 07:22 | PC.NURSE ---
Report received from GENI Barros. Pt resting, resp unlabored.
[2021-04-01 09:00] VITALS: RESP 18
[2021-04-01] MEDS: OLANZapine 5 MG TABLET PO ×2 (09:25→16:13)
--- NOTE | 2021-04-01 10:01 | PC.NURSE ---
Pt awakened for AM medications- pt pleasant, reports that she is 'feeling better' states she has been able to rest- states she has multiple family stressors at home. Pt's significant other in w/ pt at this time.
--- NOTE | 2021-04-01 10:02 | PC.NURSE ---
Pt awake, requesting his medications- PRN offered. Pt appears less disorganized, continues to question why he is here, is awaiting BHN evaluation, asking when that will be.
[2021-04-01 11:29] LABS: MANUAL DIFF FLAG NO
[2021-04-01 11:30] LABS: Basophils Percent Auto 0.3 % (0-2); Eosinophils Absolute Auto 0.2 X10*3/uL (0.0-0.4); Eosinophils Percent Auto 2.6 % (0-4); Hematocrit 43.5 % (42-52); Hemoglobin 14.9 g/dl (14.0-18.0); Imm Gran Abs Auto 0.02 X10*3/uL (0.00-0.03); Imm Gran Pct Auto 0.3 % (0.0-0.4); Lymphocytes Absolute Auto 1.1 X10*3/uL (1.2-4.9); Lymphocytes Percent Auto 19.5 % (20-40); Mean Corpuscular HGB Conc 34.3 g/dl (31.0-36.0); Mean Corpuscular Hemoglobin 30.7 pg (27.0-33.0); Mean Corpuscular Volume 89.5 fL (80-98); Monocytes Absolute Auto 0.6 X10*3/uL (0.1-1.2); Monocytes Percent Auto 9.8 % (2-11); Neutrophils Absolute Auto 3.9 X10*3/uL (2.0-8.3); Neutrophils Percent Auto 67.5 % (45-73); Platelet Count 202 X10*3/uL (160-400); Red Blood Count 4.86 X10*6/uL (4.60-5.80); Red Cell Distribution Width 12.2 % (11.0-16.0); White Blood Count 5.8 X10*3/uL (4.8-10.8)
[2021-04-01 11:44] LABS: COVID-19 Test Negative (Negative)
[2021-04-01 11:53] LABS: Ethanol < 10 mg/dL
[2021-04-01 11:57] LABS: Alanine Aminotransferase 27 U/L (0-40); Albumin Level 4.8 g/dL (3.5-5.0); Alkaline Phosphatase 82 U/L (39-117); Anion Gap 14 (12-20); Aspartate Amino Transferase 33 U/L (5-37); Bilirubin Total 0.6 mg/dL (0.0-1.0); Blood Urea Nitrogen 14 mg/dL (9-16); Calcium 9.4 mg/dL (8.4-10.2); Carbon Dioxide 26 mmol/L (22-29); Chloride 106 mmol/L (96-108); Estimated Glomerular Filt Rate > 60; Glucose Random 99 mg/dL (60-115); Potassium 4.5 mmol/L (3.3-5.1); Sodium 141 mmol/L (135-145)
--- NOTE | 2021-04-01 12:21 | PC.NURSE ---
Pt accepted blood draw and lab testing. Currently pleasant, interacting w/ staff, responding to internal stimuli occasionally.
[2021-04-01 14:00] VITALS: PULSE 20
--- NOTE | 2021-04-01 15:41 | PC.NURSE ---
Pt pacing slowly on unit, cooperative w/ care, continues to make unexpected loud sounds at times (squeals and screeches) but pleasant, less disorganized.
--- NOTE | 2021-04-01 17:36 | PC.NURSE ---
pt requested prn, appeared increasingly restless- now appears less anxious, not responding to internal stimuli as vigorously or frequently.
[2021-04-01 17:41] VITALS: BP 148/70; PULSE 65; RESP 17; TEMP 36.6; O2SAT 96
[2021-04-01] MEDS: OLANZapine 10 MG TABLET PO (21:04)
[2021-04-02] VITALS: RESP 18
--- NOTE | 2021-04-02 07:23 | PC.NURSE ---
Report received from GENI Vargas. Pt resting, resp unlabored.
--- NOTE | 2021-04-02 10:35 | PC.NURSE ---
Pt pacing slowly- notified that he will be transferred to , pt appears pleased at information, stating 'thank God!'
[2021-04-02 11:13] VITALS: PULSE 61; RESP 17; TEMP 36.6; O2SAT 96
--- NOTE | 2021-04-02 11:28 | PC.NURSE ---
Report given to GENI Kingsley on M5
--- NOTE | 2021-04-02 11:59 | PC.NURSE ---
Care team in to transfer pt to M5. Pt cooperative w/ transfer no concerns reported.
--- NOTE | 2021-04-02 12:44 | PC.ADMIT ---
Pt arrived on the unit at 11:30. Pt irritable,angry. Pt delusional. Pt refuses to sign any paperwork. Pt reports [facility] is making shit up . Pt nonsensical. Pt is a 26 year old male with history of schizophrenia,PTSD and non-compliance with medications who presents to the ED via EMS on a section 12 from the community after he was found with erratic behaviors. He was seen at [facility] getting his mail and the police were called due to concerns of disorganized thinking. not making sens and paranoia. Pt is a very poor historian and was uncooperative on arrival at the ED. Hi denied drug or alcoholuse. Pt had multiple recent admissions to , last was 11/30-12/25/20. He was discharged on IM invega once per month, his last dose is unknown. He will not comment on whether he has been compliant with his medications. Patient has a history of medication noncompliance leading to rapid decompensation with high risk behavior. Pt is here on a section 12. Pt is paranoid, delusional and very angry. Dr. Joiner will be following the patient on the unit. Pt denies SI/HI, pt also denies VH/AH. Pt does have thought blocking and appears to be responding to internal stimuli. Pt is familiar with the unit and staff.Pt was covid negative. Pt refused a Utox in the ER. He refused vitals once on the unit stating I don't need that. Pt refused to sign consents.
[2021-04-02 16:13] VITALS: BP 138/89; PULSE 56; TEMP 36.9; O2SAT 96
[2021-04-02 18:35] VITALS: BP 138/89; PULSE 56; TEMP 36.9; O2SAT 96
[2021-04-02] MEDS: OLANZapine 10 MG TABLET PO (20:24)
--- NOTE | 2021-04-03 13:16 | HO.PSYADMNOT ---
HPI Chief Complaint: Psychosis Sources of Information: patient interviewed, chart reviewed and crisis/core team assessment reviewed HPI Subjective Notes: Guerin Warning Narrative: The patient is a 26 year old male, single, with no children, unemployed on disability, resident of a [facility] with a long history of Schizophrenia, with several admissions and legal encounters due to chronic non-compliance with antipsychotics. The patient was brought to the ED since he was seen grossly disorganized, with word salad and agitated. Apparently, he was again non-compliant with Zyprexa 10 mg po qhs that was prescribed before. During the intake interview, he was internally preoccupied, a little hostile and he denied AH at this moment. Past Psychiatric History: Discharged from a few weeks ago; discontinued taking meds Multiple hospital stays He had a Blane's order but it has lapsed. Team reports pt needs a guardian assigned first before Blane's can be heard. Hx of Depakote and Haldol Dec 100 mg/ml 1 ml Medical Evaluation Reviewed: Yes [facility] Medical History Chronic schizophrenia PTSD (post-traumatic stress disorder) Family History: Mental illness on father's side along with addiction-father with alcoholism Trauma History: Significant trauma by history Diagnostics Vital Signs (24Hr): Vital Signs - 24 hr 04/02/21 16:13 04/02/21 18:35 Temperature 98.4 F 98.4 F Pulse Rate 56 56 Blood Pressure 138/89 138/89 Pulse Oximetry 96 96 Body Mass Index 0.0 Labs Results: 04/01/21 11:20 04/01/21 11:20 Meds/Allergies Meds Home Medications Acetaminophen (Acetaminophen 325 Mg Tablet) 650 mg PO Q6H PRN PRN Reason: Headache/Pain Mild Scale (1-3) Al Hydroxide/Mg Hydroxide (Magnesium Hydrox/Alum Hydrox 30 Ml Oral.Susp) 30 ml PO Q6H PRN PRN Reason: Heartburn/Nausea Hydroxyzine HCl (Hydroxyzine Hcl 25 Mg Tablet) 25 mg PO BEDTIME PRN PRN Reason: Anxiety Magnesium Hydroxide (Milk Of Magnesia 30 Ml Oral.Susp) 30 ml PO DAILY PRN PRN Reason: Constipation Olanzapine (Olanzapine 10 Mg Tablet) 10 mg PO BEDTIME HERON Last Admin: 04/02/21 20:24 Dose: 10 mg Documented by: Olanzapine (Olanzapine 5 Mg Tablet) 5 mg PO TID PRN PRN Reason: anxiety or agitation Last Admin: 04/01/21 16:13 Dose: 5 mg Documented by: Trazodone HCl (Trazodone Hcl 50 Mg Tablet) 50 mg PO BEDTIME PRN PRN Reason: Insomnia Allergies Allergies Allergy/AdvReac Type Severity Reaction Status Date / Time Penicillins [PCN] Allergy Unknown UNKNOWN Verified 10/05/20 19:44 Mental Status Exam Mental Status Exam Patient Appearance: Disheveled and Unkempt Patient Orientation: Person, Place and Time Level of Consciousness: Awake and Inappropriate Patient Behavior: Posturing and Suspicious Mood Description: Withdrawn Affect Description: Labile Patient Cognition Impaired: No Ability to Follow Directions: Fair Speech Pattern: Perseverating and Impoverished Memory Description: Intact Hallucinations: Auditory Delusions: Paranoid Ideation Thought Process: Incoherent Thought Content: positive for Loose Associations Abnormal Motor Activity Signs and Symptoms: Restlessness Judgement: Poor Assessment & Plan Assessment & Plan (1) Schizoaffective disorder: Status: Acute Code(s): F25.9 - Schizoaffective disorder, unspecified Assessment and Plan: Young male with Schizoaffective disorder, chronically non-compliant with several admissions. Plan: Restart antipsychotics. Get collateral Patient educated on: diagnosis and medication risk/benefits Informed Consent: further education needed Reason for continued inpatient stay Substantial Risk for: harm to self, harm to others, inability to function, rapid decompensation and med/psych decompensation
[2021-04-03] MEDS: OLANZapine 5 MG TABLET PO (15:25)
[2021-04-03] MEDS: OLANZapine 10 MG TABLET PO (22:23)
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
[2021-04-04] MEDS: OLANZapine 5 MG TABLET PO (10:45)
[2021-04-04 18:00] VITALS: BP 132/88; PULSE 81; TEMP 36.6
[2021-04-04] MEDS: OLANZapine 10 MG TABLET PO (20:52)
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
[2021-04-05 16:40] VITALS: BP 135/87; PULSE 78; TEMP 36.6
[2021-04-05] MEDS: OLANZapine 10 MG TABLET PO (19:59)
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
[2021-04-06] MEDS: OLANZapine 5 MG TABLET PO (10:11)
[2021-04-06] MEDS: OLANZapine 10 MG TABLET PO (20:48)
[2021-04-07] MEDS: OLANZapine 5 MG TABLET PO (10:56)
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
[2021-04-07] MEDS: OLANZapine 10 MG TABLET PO (20:04)
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
[2021-04-08] MEDS: Paliperidone Palmitate 234 MG/1.5 ML SYRINGE IM (12:43)
[2021-04-08] MEDS: OLANZapine 5 MG TABLET PO (18:04)
[2021-04-08] MEDS: OLANZapine 10 MG TABLET PO (21:51)
[2021-04-08 22:00] VITALS: BP 146/85; PULSE 85; TEMP 36.7
[2021-04-09 06:00] VITALS: TEMP 35.9
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
[2021-04-09] MEDS: OLANZapine 5 MG TABLET PO (14:04)
[2021-04-09 22:06] VITALS: BP 144/81; PULSE 88; TEMP 36.4
[2021-04-09] MEDS: OLANZapine 10 MG TABLET PO (22:11)
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
[2021-04-10] MEDS: OLANZapine 5 MG TABLET PO (11:11)
[2021-04-10] MEDS: OLANZapine 10 MG TABLET PO (20:04)
[2021-04-10] MEDS: Acetaminophen 325 MG TABLET 650 MG PO (20:08)
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
[2021-04-11] MEDS: hydrOXYzine HCL 25 MG TABLET PO (15:18)
[2021-04-11] MEDS: OLANZapine 5 MG TABLET PO (15:31)
[2021-04-11] MEDS: OLANZapine 10 MG TABLET PO (21:49)
[2021-04-12] MEDS: OLANZapine 5 MG TABLET PO (09:18)
[2021-04-12] MEDS: hydrOXYzine HCL 25 MG TABLET PO (09:18)
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
[2021-04-12] MEDS: LORazepam 1 MG TABLET 2 MG PO (11:15)
[2021-04-12] MEDS: OLANZapine 10 MG TABLET PO (11:15)
[2021-04-12] MEDS: Paliperidone Palmitate 156 MG/ML SYRINGE IM (12:00)
--- NOTE | 2021-04-12 15:17 | PM.EVENT ---
Event Note Date of Service: 04/12/21 Event Note: PT WAS ASSUALTED BY ANOTHER PT XR AND CT SCAN ORDERED Pt agaitated but willing to have XR
[2021-04-12] MEDS: Acetaminophen 325 MG TABLET 650 MG PO (16:07)
[2021-04-12 18:00] VITALS: RESP 16; RESP 18
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
[2021-04-13] MEDS: Acetaminophen 325 MG TABLET 650 MG PO (11:32)
[2021-04-13 12:02] VITALS: RESP 16
[2021-04-13 16:21] VITALS: BP 140/78; PULSE 95; TEMP 37
[2021-04-13] MEDS: OLANZapine 10 MG TABLET PO (20:14)
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
[2021-04-14 18:00] VITALS: BP 147/85; PULSE 94; TEMP 36.6
[2021-04-14] MEDS: OLANZapine 10 MG TABLET PO (20:34)
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
[2021-04-15 20:00] VITALS: BP 149/81; PULSE 82; TEMP 37.2; O2SAT 98
[2021-04-15] MEDS: OLANZapine 10 MG TABLET PO (22:09)
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
[2021-04-16] MEDS: Acetaminophen 325 MG TABLET 650 MG PO (19:38)
[2021-04-16] MEDS: OLANZapine 10 MG TABLET PO (20:32)
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
[2021-04-17 17:10] VITALS: BP 121/62; PULSE 79; TEMP 37.2
[2021-04-17] MEDS: OLANZapine 10 MG TABLET PO (21:22)
[2021-04-17] MEDS: Acetaminophen 325 MG TABLET 650 MG PO (21:26)
[2021-04-18 06:00] VITALS: RESP 16
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
[2021-04-18] MEDS: OLANZapine 10 MG TABLET PO (21:01)
[2021-04-19 06:00] VITALS: RESP 16
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
[2021-04-19] MEDS: OLANZapine 10 MG TABLET PO (21:01)
[2021-04-20] MEDS: OLANZapine 10 MG TABLET PO (20:56)
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
[2021-04-21 18:00] VITALS: BP 143/72; PULSE 84; TEMP 37.6
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
[2021-04-21] MEDS: OLANZapine 10 MG TABLET PO (20:43)
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
[2021-04-22] MEDS: OLANZapine 10 MG TABLET PO (22:15)
[2021-04-22 22:19] VITALS: BP 110/64; PULSE 92; TEMP 36.7
[2021-04-23 06:00] VITALS: RESP 16
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
[2021-04-23 10:34] LABS: COVID-19 Test Negative (Negative); IDNOW Serial# 9DD0AD1C
== END 2021-04-23 11:50 | disposition other institution (70) | DRG 750 ==
LOC: HO.ED 04-02 11:29 → HO.PM5 04-02 11:33
PROVIDERS: Admitting Provider Psychiatry & Neurology Psychiatry; Emergency Provider Emergency Medicine Emergency Medical Services; Visit Provider Psychiatry & Neurology Psychiatry
DX: F20.9 Schizophrenia, unspecified (principal); Z59.0 Homelessness; F17.210 Nicotine dependence, cigarettes, uncomplicated; Z91.14 Patient's other noncompliance with medication regimen; F43.10 Post-traumatic stress disorder, unspecified; Z71.6 Tobacco abuse counseling; Z20.822 Contact with and (suspected) exposure to COVID-19; Z88.0 Allergy status to penicillin; Z79.899 Other long term (current) drug therapy
CPT/HCPCS: 36415; 70140; 70486; 73120; 80053; 80320; 85025; 87635; 99285; J2426

== ENCOUNTER 2021-04-26 13:27 | Inpatient (IN) | payer OTHER, SELFPAY ==
--- NOTE | 2021-04-26 13:32 | ED_ITS ---
HPI - Psych General Chief Complaint: Psychiatric Symptoms Stated Complaint: SECTION Time Seen by Provider: 04/26/21 13:32 Source: patient, EMS and old records reviewed Mode of arrival: EMS Limitations: other (very vague historian) History of Present Illness HPI Narrative: 26 yo male with hx of schizophrenia here with paranoia delusions and ?substance abuse sent on section 12, has not taken his medications since 04/23 MD complaint: anxiety, substance abuse and hallucinations Onset (ago): day(s) (3) Duration: constant Relieving factors: none Exacerbating factors: none Context: not taking psychiatric medications Associated psychiatric symptoms: auditory hallucinations and delusions Associated symptoms: denies other symptoms Treatments prior to arrival: placed on mental health hold Related Data Previous Rx's Medication Instructions Recorded benztropine 0.5 mg PO TID PRN #90 tab 04/22/21 olanzapine 10 mg PO BEDTIME 30 Days #30 tab 04/22/21 paliperidone palmitate [Invega 156 mg IM QMONTH 30 Days #1 ml 04/22/21 Sustenna] trazodone 50 mg PO BEDTIME PRN #30 tab 04/22/21 Allergies Allergy/AdvReac Type Severity Reaction Status Date / Time Penicillins [PCN] Allergy Unknown UNKNOWN Verified 10/05/20 19:44 Review of Systems Review of Systems: Constitutional : No Fever, No Chills ENT/Mouth : No Ear Pain, No Nasal Congestion, No sore throat Eyes: No Eye Pain, No Swelling, No Redness Cardiovascular : No Chest Pain, No SOB Respiratory : No Cough, No Sputum, No Dyspnea Gastrointestinal : No Nausea, No Vomiting, No Diarrhea, No Hematochezia, No Melena Genitourinary : No Dysuria, No Urinary Frequency, No Hematuria Musculoskeletal : No Myalgias Skin : No Skin Lesions, No rash Neuro : No Weakness, No Numbness, No Paresthesias, No Dizziness, No Headache Psych : positive Anxiety, positive Depression, no SI/HI Heme/Lymph: No Lymphadenopathy Endocrine : No Polyuria, No Polydipsia All other systems reviewed and are negative [facility] Past Medical History Attestation statement: The following information was validated with the patient. Medical History Chronic schizophrenia PTSD (post-traumatic stress disorder) Schizoaffective disorder Social History Social History Household Members: None Housing: Apartment Housing Other:: care home Do you presently have visiting nurse or other home services: No Unable to assess alcohol history related to: Refusing to respond Alcohol intake: current Alcohol intake frequency: does not drink Cigarette Packs Per Day: 0.5 Cigarettes Per Day: 10.0 Years Smoked: many Second Hand Smoke Exposure: No Use of substances other than those prescribed or required for medical reasons: Refusing to respond Substance Use Type: Marijuana service: No Sexual orientation: Not discussed Physical Exam Vital Signs: Vital Signs: Last Vital Signs Temp 97.5 F 04/26/21 14:13 Pulse 97 04/26/21 14:13 Resp 20 04/26/21 14:13 BP 141/92 H 04/26/21 14:13 Pulse Ox 95 04/26/21 14:13 Body Mass Index 31.7 Appearance: Alert. Oriented X3. No acute distress. Eyes: Pupils equal, round and reactive to light. ENT: Pharynx normal. Neck: Normal inspection. Neck supple. CVS: Normal heart rate and rhythm. Pulses normal. Respiratory: No respiratory distress. Breath sounds normal. Abdomen: Soft and nontender. Skin: Skin warm and dry. Normal skin color. Normal skin turgor. Extremities: No lower extremity edema. No calf ttp Neuro: Oriented X 3. No motor deficit. No sensory deficit. Psych: Flat affect, withdrawn, staring off, ?under the influence Course Course Course Narrative: Physician observation started at 307pm Patient placed in physician observation because the patient needed more time for evaluation by crisis team to see need for inpatient psychiatry. At the time observation was started the patient's vitals were stable, patient is alert and oriented, Neuro: nonfocal, CV RRR, Lungs clear signed out pending crisis evaluation MDM - Psych MDM Narrative Medical decision making narrative: 26 yo male with hx of schizophrenia here with paranoia delusions and ?substance abuse sent on section 12, has not taken his medications since 04/23 at this time labs and CARE team consult placed - likely admit. Lab Data Labs: Lab Results 04/26/21 Range/Units 14:00 COVID-19 (JINNY) Negative (Negative) COVID-19 Clin Com See Note Discharge Plan Discharge Clinical Impression: Schizophrenia Prescriptions: No Action olanzapine 10 mg Tablet 10 mg PO BEDTIME 30 Days Qty: 30 RF: 0 Invega Sustenna 156 mg/mL syringe 156 mg IM QMONTH 30 Days Qty: 1 RF: 1 benztropine 0.5 mg Tablet 0.5 mg PO TID PRN (Reason: Extrapyramidal Effects) Qty: 90 RF: 0 trazodone 50 mg Tablet 50 mg PO BEDTIME PRN (Reason: Insomnia) Qty: 30 RF: 0
[2021-04-26 13:49] VITALS: BP 141/92; PULSE 97; RESP 20; TEMP 36.8; O2SAT 95; BMI 31.7
--- NOTE | 2021-04-26 13:57 | PC.NURSE ---
Pt arrived via EMS on a section 12 from intermediate for verbal aggression. Per EMS report, pt stopped taking his psych meds 04/23/21 and has been verbally aggressive to staff and housemates since. EMS states pt was seen smoking THC on arrival at the scene. Pt agitated and vague with staff during change agent and intake assessment. He denies SI, visual/auditory hallucinations. Pt agreeable to COVID swab. Pt quiet in room at this time, lunch provided.
[2021-04-26 14:13] VITALS: BP 141/92; PULSE 97; RESP 20; TEMP 36.4; O2SAT 95
[2021-04-26 14:24] LABS: COVID-19 Test Negative (Negative)
--- NOTE | 2021-04-26 14:35 | PC.NURSE ---
Attempted to draw labs, pt not agreeable at this time, will reattempt . Plan for CARE team to evaluate pt
--- NOTE | 2021-04-26 15:27 | PC.NURSE ---
CARE team at bedside
--- NOTE | 2021-04-26 15:59 | PC.NURSE ---
Pt alseep at this time, plan for placement on [facility]
--- NOTE | 2021-04-26 17:07 | PC.NURSE ---
Refused blood work on second attempt
--- NOTE | 2021-04-26 17:07 | PC.NURSE ---
Dr Solis at bedside at this time
--- NOTE | 2021-04-26 18:33 | PC.NURSE ---
Report given to [facility], med rec to be performed and pt to be transferred to floor
--- NOTE | 2021-04-26 18:53 | PHA.MEDREC ---
Addendum entered by Steff Pope RPh 04/26/21 20:03: Try to speak with patient to see if he had taken any medication since discharge. Patient refused to talk. Original Note: Pharmacy Consult ? Medication Reconciliation Pharmacy has completed the medication reconciliation. Patient recently discharged 04/23/2021. No remarkable issues to report. Steff Pope, PharmD
[2021-04-26 20:00] VITALS: RESP 20
--- NOTE | 2021-04-26 21:25 | PC.NURSE ---
pt refusing to go to [facility], [facility] has been notified by ananda. there is a situation ongoing on [facility] so this transfer will be on hold till notified.
--- NOTE | 2021-04-26 21:28 | PC.NURSE ---
pt has been sleeping and visable on the camera.
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
[2021-04-27 16:05] VITALS: BP 128/73; PULSE 53; TEMP 36.9
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
[2021-04-27] MEDS: OLANZapine 10 MG TABLET PO (19:59)
[2021-04-28 06:00] VITALS: RESP 16
--- NOTE | 2021-04-28 15:46 | HO.PSYCHPN ---
Subjective Subjective Date of Service: 04/28/21 Reason For Visit: SECTION Interim History: pt resting in bed; irritated with being woken up. He says what and then is there something special you need? what? pt denies any needs or complaints other then he's tired and wants to go back to sleep, which he does. staff report pt is quiet, mostly isolating in his room taking meds Medication Compliance: Yes Side effects from medications: No Attending Groups: No Mental Status Exam Mental Status Exam Narrative: Patient Appearance: Appropriate cloths; lying in bed with hat on Patient Orientation: Person, Place, Time and Situation Level of Consciousness: Awake and Appropriate Patient Behavior: irritable Mood Description: irritable Affect Description: Constricted Patient Cognition Impaired: No Ability to Follow Directions: Fair Speech Pattern:softer Hallucinations: denies Delusions: denies Thought Content: goal oriented ,concrete Judgement: impaired Diagnostics Vital Signs (24Hr): Vital Signs - 24 hr 04/27/21 16:05 04/28/21 06:00 Temperature 98.4 F Pulse Rate 53 Respiratory Rate 16 Blood Pressure 128/73 Body Mass Index 31.7 Medications Medications Current Medications Generic Name Dose Route Start Last Admin Trade Name Freq PRN Reason Stop Dose Admin Acetaminophen 650 mg 04/26/21 22:03 Acetaminophen 325 Mg Tablet PO Q6H PRN Headache/Pain Mild Scale (1-3) Al Hydroxide/Mg Hydroxide 30 ml 04/26/21 22:03 Magnesium Hydrox/Alum Hydrox 30 Ml Oral.Susp PO Q6H PRN Heartburn/Nausea Benztropine Mesylate 0.5 mg 04/26/21 22:03 Benztropine Mesylate 0.5 Mg Tablet PO TID PRN Extrapyramidal Effects Diphenhydramine HCl 50 mg 04/26/21 22:03 Diphenhydramine Hcl 25 Mg Tablet PO Q4H PRN agitation Haloperidol 5 mg 04/26/21 22:03 Haloperidol 5 Mg Tablet PO Q4H PRN agitation Hydroxyzine HCl 25 mg 04/26/21 22:03 Hydroxyzine Hcl 25 Mg Tablet PO TID PRN Anxiety Lorazepam 2 mg 04/26/21 22:03 Lorazepam 1 Mg Tablet PO Q4H PRN agitation Magnesium Hydroxide 30 ml 04/26/21 22:03 Milk Of Magnesia 30 Ml Oral.Susp PO DAILY PRN Constipation Nicotine 21 mg 04/26/21 22:03 Nicotine 21 Mg Patch.Td24 TRANSDERMA DAILY PRN nocotine cessation Nicotine Polacrilex 4 mg 04/26/21 22:03 Nicotine Polacrilex 2 Mg Gum BUCCAL Q2H PRN Nicotine Cravings Olanzapine 10 mg 04/26/21 22:03 04/27/21 19:59 Olanzapine 10 Mg Tablet PO 10 mg BEDTIME HERON Administration Olanzapine 5 mg 04/27/21 14:16 Olanzapine 5 Mg Tablet PO BID PRN mild-moderate agitation Pharmacy Consult 1 each 04/26/21 18:33 Consult Rx Perform Med Rec MISCELLANE ONCE PRN Consult order Trazodone HCl 50 mg 04/26/21 22:03 Trazodone Hcl 50 Mg Tablet PO BEDTIME PRN Insomnia Allergies Allergies Allergy/AdvReac Type Severity Reaction Status Date / Time Penicillins [PCN] Allergy Unknown UNKNOWN Verified 10/05/20 19:44 Assessment & Plan Assessment & Plan (1) Schizophrenia: Qualifiers: Schizophrenia type: unspecified Qualified Code(s): F20.9 - Schizophrenia, unspecified Status: Acute Code(s): F20.9 - Schizophrenia, unspecified impression: recently discharged 2 days prior to this admission eloped from program, not taking meds denies SI/HI or voices refuses to sign CV but willing to take meds. PLAN: pt on Section 12b continue home meds will get collateral Greater than 50% of the session was spent on counseling and/or coordination of care Reason for contiued inpatient stay Substantial Risk for: rapid decompensation
[2021-04-28 19:15] VITALS: BP 112/69; PULSE 59; TEMP 36.4
[2021-04-28] MEDS: OLANZapine 10 MG TABLET PO (21:12)
[2021-04-29] MEDS: Acetaminophen 325 MG TABLET 650 MG PO (09:44)
--- NOTE | 2021-04-29 12:56 | HO.PSYCHPN ---
Subjective Subjective Date of Service: 04/29/21 Reason For Visit: SECTION Subjective Notes: Guerin Warning and Section 12B Healthcare Proxy: No Guardianship: No (lapsed Julius) Medical Problems Affecting Mental Status: No Interim History: Pt visable in milieu, pacing, self-dialoguing. Not wanting to meet with TW. Spoke briefly. no change, no medicine laughs and walks away. Brief interactions with pt as he paced the corridor-minimal response-it appears he has a lot of internal stimuli to manage and is distracted. Mood is labile, with anger, tension, smiling, laughing at times. Refusing interventions-no diagnostics since 04/01/21. Section XIIB. Team reports off medications since 04/23/21 Review of Systems Reports behavioral changes Psychiatric: Reports behavioral changes, Reports difficulty concentrating, Reports auditory hallucinations, Reports irritability, Reports mood swings, Reports paranoia, Reports visual hallucinations and Reports hallucinations Mental Status Exam Mental Status Exam Patient Appearance: Disheveled, Unkempt and Bizarre Patient Orientation: Person and Place Level of Consciousness: Awake and Alert Patient Behavior: Guarded, Suspicious, Aggressive, Restless, Belligerent, Wandering, Anxious, Resistive to Care, Avoidant, Distractible, Isolative, Uncooperative, Pacing and Poor Eye Contact Mood Description: Labile Affect Description: Labile Patient Cognition Impaired: Yes Ability to Follow Directions: Poor Speech Pattern: Difficulty Finding Words, Garbled, Spontaneous Speech, Rambling, Soft-Spoken, Cofabulation and Poor Articulation Memory Description: Remote Impaired, Immediate Impaired, Tablet Technician Impaired and Episodic Impaired Hallucinations: Auditory Delusions: Being Controlled, Paranoid Ideation and Present Perceptual Disturbances: Derealization and Hallucinations Thought Process: Racing, Illogical, Distracted and Evasive Thought Content: positive for Flight of Ideas, positive for Racing, positive for Circumstantial, positive for Preoccupation, positive for Loose Associations, positive for Thought Blocking, positive for Tangential and positive for Evasive Depressive Symptoms: Increased Irritability, Loss of Int. in Activity, Isolating-Friends/Family and Difficulty Concentrating Abnormal Motor Activity Signs and Symptoms: Agitation, Hyperactivity and Restlessness Judgement: Poor Diagnostics Vital Signs (24Hr): Vital Signs - 24 hr 04/28/21 19:15 Temperature 97.6 F Pulse Rate 59 Blood Pressure 112/69 Body Mass Index 31.7 Medications Medications Current Medications Generic Name Dose Route Start Last Admin Trade Name Freq PRN Reason Stop Dose Admin Acetaminophen 650 mg 04/26/21 22:03 04/29/21 09:44 Acetaminophen 325 Mg Tablet PO 650 mg Q6H PRN Administration Headache/Pain Mild Scale (1-3) Al Hydroxide/Mg Hydroxide 30 ml 04/26/21 22:03 Magnesium Hydrox/Alum Hydrox 30 Ml Oral.Susp PO Q6H PRN Heartburn/Nausea Benztropine Mesylate 0.5 mg 04/26/21 22:03 Benztropine Mesylate 0.5 Mg Tablet PO TID PRN Extrapyramidal Effects Diphenhydramine HCl 50 mg 04/26/21 22:03 Diphenhydramine Hcl 25 Mg Tablet PO Q4H PRN agitation Haloperidol 5 mg 04/26/21 22:03 Haloperidol 5 Mg Tablet PO Q4H PRN agitation Hydroxyzine HCl 25 mg 04/26/21 22:03 Hydroxyzine Hcl 25 Mg Tablet PO TID PRN Anxiety Lorazepam 2 mg 04/26/21 22:03 Lorazepam 1 Mg Tablet PO Q4H PRN agitation Magnesium Hydroxide 30 ml 04/26/21 22:03 Milk Of Magnesia 30 Ml Oral.Susp PO DAILY PRN Constipation Nicotine 21 mg 04/26/21 22:03 Nicotine 21 Mg Patch.Td24 TRANSDERMA DAILY PRN nocotine cessation Nicotine Polacrilex 4 mg 04/26/21 22:03 Nicotine Polacrilex 2 Mg Gum BUCCAL Q2H PRN Nicotine Cravings Olanzapine 10 mg 04/26/21 22:03 04/28/21 21:12 Olanzapine 10 Mg Tablet PO 10 mg BEDTIME HERON Administration Olanzapine 5 mg 04/27/21 14:16 Olanzapine 5 Mg Tablet PO BID PRN mild-moderate agitation Pharmacy Consult 1 each 04/26/21 18:33 Consult Rx Perform Med Rec MISCELLANE ONCE PRN Consult order Trazodone HCl 50 mg 04/26/21 22:03 Trazodone Hcl 50 Mg Tablet PO BEDTIME PRN Insomnia Allergies Allergies Allergy/AdvReac Type Severity Reaction Status Date / Time Penicillins [PCN] Allergy Unknown UNKNOWN Verified 10/05/20 19:44 Assessment & Plan Assessment & Plan (1) Schizophrenia: Qualifiers: Schizophrenia type: unspecified Qualified Code(s): F20.9 - Schizophrenia, unspecified Status: Acute Code(s): F20.9 - Schizophrenia, unspecified Assessment and Plan: 26 yo male, long history of schizophrenia, agitation, substance use, with a lapsed Blane's order presents after stopping meds (reported last meds 04/23/21) disorganized and needing extra support/care in modualtion of mood, psychotic sx PLAN: Patient on Section 12B. File for consideration of civil commitment. 15 minutes checks for safety Zyprexa 10 mg at bedtime Zyprexa 5 mg b.i.d. p.r.n. for anxiety agitation Will consider increase in Invega Sustenna Greater than 50% of the session was spent on counseling and/or coordination of care Informed Consent: does not understand and further education needed Reason for contiued inpatient stay Substantial Risk for: harm to self, harm to others, inability to function and rapid decompensation
[2021-04-29] MEDS: hydrOXYzine HCL 25 MG TABLET PO (16:24)
[2021-04-29 16:30] VITALS: BP 135/87; PULSE 56; TEMP 36.2
[2021-04-29] MEDS: OLANZapine 10 MG TABLET PO (20:52)
--- NOTE | 2021-04-30 15:45 | HO.PSYCHPN ---
Subjective Subjective Date of Service: 04/30/21 Reason For Visit: SECTION Interim History: pt states he feels like he needs something for motivation. having trouble getting out of bed in the morning. tangential, mumbling, generally disorganized and difficult to comprehend. talking about moving out of state and how medications are what tie everyone together on the behavioral health unit. Mental Status Exam Mental Status Exam Narrative: adequately groomed and wearing street clothes and baseball cap. cooperative with interview. general PMR. speech incr in amount, decr in loudness, decr prosody, nml latency. thoughts tangential, no overt delusions or paranoia expressed. affect blunted, hypo-intense, non-labile. mood not assessed. no AVH expressed, no SI/HI expressed. Diagnostics Vital Signs (24Hr): Vital Signs - 24 hr 04/29/21 16:30 Temperature 97.2 F Pulse Rate 56 Blood Pressure 135/87 Body Mass Index 31.7 Medications Medications Current Medications Generic Name Dose Route Start Last Admin Trade Name Freq PRN Reason Stop Dose Admin Acetaminophen 650 mg 04/26/21 22:03 04/29/21 09:44 Acetaminophen 325 Mg Tablet PO 650 mg Q6H PRN Administration Headache/Pain Mild Scale (1-3) Al Hydroxide/Mg Hydroxide 30 ml 04/26/21 22:03 Magnesium Hydrox/Alum Hydrox 30 Ml Oral.Susp PO Q6H PRN Heartburn/Nausea Benztropine Mesylate 0.5 mg 04/26/21 22:03 Benztropine Mesylate 0.5 Mg Tablet PO TID PRN Extrapyramidal Effects Diphenhydramine HCl 50 mg 04/26/21 22:03 Diphenhydramine Hcl 25 Mg Tablet PO Q4H PRN agitation Haloperidol 5 mg 04/26/21 22:03 Haloperidol 5 Mg Tablet PO Q4H PRN agitation Hydroxyzine HCl 25 mg 04/26/21 22:03 04/29/21 16:24 Hydroxyzine Hcl 25 Mg Tablet PO 25 mg TID PRN Administration Anxiety Lorazepam 2 mg 04/26/21 22:03 Lorazepam 1 Mg Tablet PO Q4H PRN agitation Magnesium Hydroxide 30 ml 04/26/21 22:03 Milk Of Magnesia 30 Ml Oral.Susp PO DAILY PRN Constipation Nicotine 21 mg 04/26/21 22:03 Nicotine 21 Mg Patch.Td24 TRANSDERMA DAILY PRN nocotine cessation Nicotine Polacrilex 4 mg 04/26/21 22:03 Nicotine Polacrilex 2 Mg Gum BUCCAL Q2H PRN Nicotine Cravings Olanzapine 10 mg 04/26/21 22:03 04/29/21 20:52 Olanzapine 10 Mg Tablet PO 10 mg BEDTIME HERON Administration Olanzapine 5 mg 04/27/21 14:16 Olanzapine 5 Mg Tablet PO BID PRN mild-moderate agitation Pharmacy Consult 1 each 04/26/21 18:33 Consult Rx Perform Med Rec MISCELLANE ONCE PRN Consult order Trazodone HCl 50 mg 04/26/21 22:03 Trazodone Hcl 50 Mg Tablet PO BEDTIME PRN Insomnia Allergies Allergies Allergy/AdvReac Type Severity Reaction Status Date / Time Penicillins [PCN] Allergy Unknown UNKNOWN Verified 10/05/20 19:44 Assessment & Plan Assessment & Plan (1) Schizophrenia: Qualifiers: Schizophrenia type: unspecified Qualified Code(s): F20.9 - Schizophrenia, unspecified Status: Acute Code(s): F20.9 - Schizophrenia, unspecified Assessment and Plan: 26 yo male, long history of schizophrenia, agitation, substance use, with a lapsed Blane's order presents after stopping meds (reported last meds 04/23/21) disorganized and needing extra support/care in modulation of mood, psychotic sx PLAN: Patient on Section 12B. File for consideration of civil commitment. 15 minutes checks for safety Zyprexa 10 mg at bedtime Zyprexa 5 mg b.i.d. p.r.n. for anxiety agitation Will consider increase in Invega Sustenna Greater than 50% of the session was spent on counseling and/or coordination of care Reason for contiued inpatient stay Substantial Risk for: inability to function
--- NOTE | 2021-04-30 16:51 | HO.PSYCHPN ---
Subjective Subjective Date of Service: 04/30/21 Reason For Visit: SECTION Subjective Notes: Section 12B Healthcare Proxy: No Guardianship: Yes ([employer] [place] is pending) Medical Problems Affecting Mental Status: No Interim History: Visable, pacing the unit. Self-dialogueing responding to internal stimuli Labile, irritable at times, calm, softer at other times. Declines meeting, citing Celie, I know it all about psychology, astrology, astronomy, hexononitry?. I will help you if needed-just ask me any question about the earth. Appears grandiose at that time. Brief interactions with Lon throughout the day without much of a thread of theme. Asked if tw was hiding baseballs for him. Review of Systems Review of Systems Yes Unobtainable due to mental status Reports behavioral changes and Reports confusion Psychiatric: Reports behavioral changes, Reports confusion, Reports difficulty concentrating, Reports auditory hallucinations, Reports irritability, Reports mood swings, Reports paranoia, Reports hallucinations and Reports suicidal ideation (no) Mental Status Exam Mental Status Exam Patient Appearance: Disheveled and Unkempt Patient Orientation: Person and Place Level of Consciousness: Awake and Restless Patient Behavior: Guarded, Talkative, Suspicious, Restless, Wandering, Resistive to Care, Avoidant, Distractible, Confused, Isolative, Pacing and Poor Eye Contact Mood Description: Calm, Apathetic, Suspicious, Withdrawn, Constricted, Depressed, Hostile, Labile, Angry, Apprehensive and Expansive Affect Description: Labile Patient Cognition Impaired: Yes Ability to Follow Directions: Fair Speech Pattern: Spontaneous Speech, Rambling, Soft-Spoken, Cofabulation and Poor Articulation Memory Description: Remote Impaired, Immediate Impaired, Penitentiary Impaired and Episodic Impaired Hallucinations: Auditory Delusions: Paranoid Ideation, Grandiose and Present Perceptual Disturbances: Derealization Thought Process: Illogical and Distracted Thought Content: positive for Flight of Ideas, positive for Circumstantial, positive for Poverty of Content, positive for Thought Blocking, positive for Tangential, positive for Disorganized and positive for Suicidal Ideation (no) Depressive Symptoms: Diff. Making Decisions, Increased Irritability, Isolating-Friends/Family and Difficulty Concentrating Abnormal Motor Activity Signs and Symptoms: Restlessness Judgement: Poor Diagnostics Vital Signs (24Hr): Body Mass Index 31.7 Medications Medications Current Medications Generic Name Dose Route Start Last Admin Trade Name Freq PRN Reason Stop Dose Admin Acetaminophen 650 mg 04/26/21 22:03 04/29/21 09:44 Acetaminophen 325 Mg Tablet PO 650 mg Q6H PRN Administration Headache/Pain Mild Scale (1-3) Al Hydroxide/Mg Hydroxide 30 ml 04/26/21 22:03 Magnesium Hydrox/Alum Hydrox 30 Ml Oral.Susp PO Q6H PRN Heartburn/Nausea Benztropine Mesylate 0.5 mg 04/26/21 22:03 Benztropine Mesylate 0.5 Mg Tablet PO TID PRN Extrapyramidal Effects Diphenhydramine HCl 50 mg 04/26/21 22:03 Diphenhydramine Hcl 25 Mg Tablet PO Q4H PRN agitation Haloperidol 5 mg 04/26/21 22:03 Haloperidol 5 Mg Tablet PO Q4H PRN agitation Hydroxyzine HCl 25 mg 04/26/21 22:03 04/29/21 16:24 Hydroxyzine Hcl 25 Mg Tablet PO 25 mg TID PRN Administration Anxiety Lorazepam 2 mg 04/26/21 22:03 Lorazepam 1 Mg Tablet PO Q4H PRN agitation Magnesium Hydroxide 30 ml 04/26/21 22:03 Milk Of Magnesia 30 Ml Oral.Susp PO DAILY PRN Constipation Nicotine 21 mg 04/26/21 22:03 Nicotine 21 Mg Patch.Td24 TRANSDERMA DAILY PRN nocotine cessation Nicotine Polacrilex 4 mg 04/26/21 22:03 Nicotine Polacrilex 2 Mg Gum BUCCAL Q2H PRN Nicotine Cravings Olanzapine 10 mg 04/26/21 22:03 04/29/21 20:52 Olanzapine 10 Mg Tablet PO 10 mg BEDTIME HERON Administration Olanzapine 5 mg 04/27/21 14:16 Olanzapine 5 Mg Tablet PO BID PRN mild-moderate agitation Pharmacy Consult 1 each 04/26/21 18:33 Consult Rx Perform Med Rec MISCELLANE ONCE PRN Consult order Trazodone HCl 50 mg 04/26/21 22:03 Trazodone Hcl 50 Mg Tablet PO BEDTIME PRN Insomnia Allergies Allergies Allergy/AdvReac Type Severity Reaction Status Date / Time Penicillins [PCN] Allergy Unknown UNKNOWN Verified 10/05/20 19:44 Assessment & Plan Assessment & Plan (1) Schizophrenia: Qualifiers: Schizophrenia type: unspecified Qualified Code(s): F20.9 - Schizophrenia, unspecified Status: Acute Code(s): F20.9 - Schizophrenia, unspecified Assessment and Plan: 26 yo male, long history of schizophrenia, agitation, substance use, with a lapsed Blane's order presents after stopping meds (reported last meds 04/23/21) disorganized and needing extra support/care in modulation of mood, psychotic sx PLAN: Patient on Section 12B. Will file for consideration of civil commitment. 15 minutes checks for safety Zyprexa 10 mg at bedtime Zyprexa 5 mg b.i.d. p.r.n. for anxiety agitation Will consider increase in Invega Sustenna Greater than 50% of the session was spent on counseling and/or coordination of care Reason for contiued inpatient stay Substantial Risk for: harm to self, harm to others, inability to function and rapid decompensation
[2021-04-30] MEDS: hydrOXYzine HCL 25 MG TABLET PO (18:20)
[2021-04-30] MEDS: OLANZapine 10 MG TABLET PO (20:16)
--- NOTE | 2021-05-01 16:44 | P.PNPSI_ITS ---
Subjective Subjective Date of Service: 05/01/21 Reason For Visit: SECTION Subjective Notes: Section 7 Healthcare Proxy: No Guardianship: No Medical Problems Affecting Mental Status: No Interim History: Petition for commitment filed on 04/30. Lon is visable, pacing self-dialoguing with brief labile interactions throughout the day. When asked if he wanted to talk about his treatment plan and team plan for petition for commitment, he declined. Offered to meet with him should he have any questions. Medication Compliance: Intermittent Side effects from medications: No Attending Groups: No Review of Systems Review of Systems Yes Unobtainable due to mental status Reports behavioral changes and Reports confusion Psychiatric: Reports anxiety, Reports behavioral changes, Reports confusion, Reports depression, Reports difficulty concentrating, Reports auditory hallucinations, Reports hopelessness, Reports irritability, Reports mood swings, Reports paranoia, Reports hallucinations and Reports suicidal ideation ( NO ) Mental Status Exam Mental Status Exam Patient Appearance: Disheveled and Unkempt Patient Orientation: Person Level of Consciousness: Restless Patient Behavior: Guarded, Passive, Suspicious, Restless, Wandering, Anxious, Fearful, Resistive to Care, Avoidant, Fatigued, Distractible, Isolative, Pacing and Poor Eye Contact Mood Description: Blunted Affect Description: Blunted Patient Cognition Impaired: Yes Ability to Follow Directions: Fair Speech Pattern: Spontaneous Speech, Soft-Spoken, Delayed and Long Pauses Memory Description: Episodic Impaired Hallucinations: Auditory Delusions: Paranoid Ideation and Present Perceptual Disturbances: Depersonalization and Derealization Thought Process: Illogical, Distracted, Rumination and Slowed Thinking Thought Content: positive for [place], positive for Circumstantial, positive for Perseveration, positive for Preoccupation, positive for Loose Associations, positive for Thought Blocking, positive for Tangential and positive for Disorganized Depressive Symptoms: Diff. Making Decisions, Increased Irritability, Feelings of Worthlessness, Isolating-Friends/Family, Unhappiness, Increased Fatigue, Low Self Esteem, Loss of Energy and Difficulty Concentrating Abnormal Motor Activity Signs and Symptoms: Restlessness Judgement: Poor Diagnostics Vital Signs (24Hr): Body Mass Index 31.7 Medications Medications Current Medications Generic Name Dose Route Start Last Admin Trade Name Freq PRN Reason Stop Dose Admin Acetaminophen 650 mg 04/26/21 22:03 04/29/21 09:44 Acetaminophen 325 Mg Tablet PO 650 mg Q6H PRN Administration Headache/Pain Mild Scale (1-3) Al Hydroxide/Mg Hydroxide 30 ml 04/26/21 22:03 Magnesium Hydrox/Alum Hydrox 30 Ml Oral.Susp PO Q6H PRN Heartburn/Nausea Benztropine Mesylate 0.5 mg 04/26/21 22:03 Benztropine Mesylate 0.5 Mg Tablet PO TID PRN Extrapyramidal Effects Diphenhydramine HCl 50 mg 04/26/21 22:03 Diphenhydramine Hcl 25 Mg Tablet PO Q4H PRN agitation Haloperidol 5 mg 04/26/21 22:03 Haloperidol 5 Mg Tablet PO Q4H PRN agitation Hydroxyzine HCl 25 mg 04/26/21 22:03 04/30/21 18:20 Hydroxyzine Hcl 25 Mg Tablet PO 25 mg TID PRN Administration Anxiety Lorazepam 2 mg 04/26/21 22:03 Lorazepam 1 Mg Tablet PO Q4H PRN agitation Magnesium Hydroxide 30 ml 04/26/21 22:03 Milk Of Magnesia 30 Ml Oral.Susp PO DAILY PRN Constipation Nicotine 21 mg 04/26/21 22:03 Nicotine 21 Mg Patch.Td24 TRANSDERMA DAILY PRN nocotine cessation Nicotine Polacrilex 4 mg 04/26/21 22:03 Nicotine Polacrilex 2 Mg Gum BUCCAL Q2H PRN Nicotine Cravings Olanzapine 10 mg 04/26/21 22:03 04/30/21 20:16 Olanzapine 10 Mg Tablet PO 10 mg BEDTIME HERON Administration Olanzapine 5 mg 04/27/21 14:16 Olanzapine 5 Mg Tablet PO BID PRN mild-moderate agitation Pharmacy Consult 1 each 04/26/21 18:33 Consult Rx Perform Med Rec MISCELLANE ONCE PRN Consult order Trazodone HCl 50 mg 04/26/21 22:03 Trazodone Hcl 50 Mg Tablet PO BEDTIME PRN Insomnia Allergies Allergies Allergy/AdvReac Type Severity Reaction Status Date / Time Penicillins [PCN] Allergy Unknown UNKNOWN Verified 10/05/20 19:44 Assessment & Plan Assessment & Plan (1) Schizophrenia: Qualifiers: Schizophrenia type: unspecified Qualified Code(s): F20.9 - Schizophrenia, unspecified Status: Acute Code(s): F20.9 - Schizophrenia, unspecified Assessment and Plan: 26 yo male, long history of schizophrenia, agitation, substance use, with a lapsed Blane's order presents after stopping meds (reported last meds 6/8/21) disorganized and needing extra support/care in modulation of mood, psychotic sx PLAN: Patient on Section 12B. We have filed for civil commitment on 04/30/21. 15 minutes checks for safety Zyprexa 10 mg at bedtime Zyprexa 5 mg b.i.d. p.r.n. for anxiety agitation Will consider increase in Invega Sustenna Greater than 50% of the session was spent on counseling and/or coordination of care Reason for contiued inpatient stay Substantial Risk for: harm to self, harm to others, inability to function and rapid decompensation
[2021-05-01 17:35] VITALS: BP 136/70; PULSE 69; RESP 16; TEMP 36.2; O2SAT 97
[2021-05-01] MEDS: OLANZapine 10 MG TABLET PO (21:14)
[2021-05-01] MEDS: hydrOXYzine HCL 25 MG TABLET PO (21:21)
[2021-05-02 06:00] VITALS: RESP 16
--- NOTE | 2021-05-02 16:52 | HO.PSYCHPN ---
Subjective Subjective Date of Service: 05/02/21 Reason For Visit: SECTION Subjective Notes: Section 7 Healthcare Proxy: No Guardianship: No Medical Problems Affecting Mental Status: No Interim History: Court date scheduled for 05/07/21. Pt has met with his mergers and acquisitions attorney. Has not questions today about the process. More visable at the desk and in the milieu. Continues to respond to internal stimuli. At times conversation is sensible, at times difficult to find a thread of what his meaning is. Appears calm Medication Compliance: Yes Side effects from medications: No Attending Groups: No Review of Systems Review of Systems Yes Unobtainable due to mental status Reports behavioral changes and Reports confusion Psychiatric: Reports behavioral changes, Reports confusion, Reports difficulty concentrating, Reports auditory hallucinations, Reports irritability, Reports mood swings, Reports paranoia and Reports hallucinations Mental Status Exam Mental Status Exam Patient Appearance: Unkempt Patient Orientation: Person and Place Level of Consciousness: Awake Patient Behavior: Guarded, Talkative, Suspicious, Restless, Anxious, Avoidant, Pacing and Poor Eye Contact Mood Description: Withdrawn Affect Description: Constricted Patient Cognition Impaired: Yes Ability to Follow Directions: Fair Speech Pattern: Impoverished, Difficulty Finding Words, Spontaneous Speech, Soft-Spoken, Cofabulation, Delayed, Poor Articulation and Long Pauses Memory Description: Remote Impaired and Episodic Impaired Hallucinations: Auditory Delusions: Being Controlled, Paranoid Ideation and Present Perceptual Disturbances: Hallucinations Thought Process: Illogical, Distracted and Evasive Thought Content: positive for [place], positive for Perseveration, positive for Poverty of Content, positive for Preoccupation and positive for Thought Blocking Depressive Symptoms: Diff. Making Decisions, Increased Irritability, Loss of Int. in Activity, Hopelessness, Unhappiness, Low Self Esteem and Difficulty Concentrating Abnormal Motor Activity Signs and Symptoms: Restlessness Judgement: Poor Diagnostics Vital Signs (24Hr): Vital Signs - 24 hr 05/01/21 17:35 05/02/21 06:00 Temperature 97.2 F Pulse Rate 69 Respiratory Rate 16 16 Blood Pressure 136/70 Pulse Oximetry 97 Body Mass Index 31.7 Medications Medications Current Medications Generic Name Dose Route Start Last Admin Trade Name Freq PRN Reason Stop Dose Admin Acetaminophen 650 mg 04/26/21 22:03 04/29/21 09:44 Acetaminophen 325 Mg Tablet PO 650 mg Q6H PRN Administration Headache/Pain Mild Scale (1-3) Al Hydroxide/Mg Hydroxide 30 ml 04/26/21 22:03 Magnesium Hydrox/Alum Hydrox 30 Ml Oral.Susp PO Q6H PRN Heartburn/Nausea Benztropine Mesylate 0.5 mg 04/26/21 22:03 Benztropine Mesylate 0.5 Mg Tablet PO TID PRN Extrapyramidal Effects Diphenhydramine HCl 50 mg 04/26/21 22:03 Diphenhydramine Hcl 25 Mg Tablet PO Q4H PRN agitation Haloperidol 5 mg 04/26/21 22:03 Haloperidol 5 Mg Tablet PO Q4H PRN agitation Hydroxyzine HCl 25 mg 04/26/21 22:03 05/01/21 21:21 Hydroxyzine Hcl 25 Mg Tablet PO 25 mg TID PRN Administration Anxiety Magnesium Hydroxide 30 ml 04/26/21 22:03 Milk Of Magnesia 30 Ml Oral.Susp PO DAILY PRN Constipation Nicotine 21 mg 04/26/21 22:03 Nicotine 21 Mg Patch.Td24 TRANSDERMA DAILY PRN nocotine cessation Nicotine Polacrilex 4 mg 04/26/21 22:03 Nicotine Polacrilex 2 Mg Gum BUCCAL Q2H PRN Nicotine Cravings Olanzapine 10 mg 04/26/21 22:03 05/01/21 21:14 Olanzapine 10 Mg Tablet PO 10 mg BEDTIME HERON Administration Olanzapine 5 mg 04/27/21 14:16 Olanzapine 5 Mg Tablet PO BID PRN mild-moderate agitation Pharmacy Consult 1 each 04/26/21 18:33 Consult Rx Perform Med Rec MISCELLANE ONCE PRN Consult order Trazodone HCl 50 mg 04/26/21 22:03 Trazodone Hcl 50 Mg Tablet PO BEDTIME PRN Insomnia Allergies Allergies Allergy/AdvReac Type Severity Reaction Status Date / Time Penicillins [PCN] Allergy Unknown UNKNOWN Verified 10/05/20 19:44 Assessment & Plan Assessment & Plan (1) Schizophrenia: Qualifiers: Schizophrenia type: unspecified Qualified Code(s): F20.9 - Schizophrenia, unspecified Status: Acute Code(s): F20.9 - Schizophrenia, unspecified Assessment and Plan: 26 yo male, long history of schizophrenia, agitation, substance use, with a lapsed Blane's order presents after stopping meds (reported last meds 04/23/21) disorganized and needing extra support/care in modulation of mood, psychotic sx PLAN: Patient on Section 12B. We have filed for civil commitment on 04/30/21. Court scheduled for 05/07/21 15 minutes checks for safety Zyprexa 10 mg at bedtime Zyprexa 5 mg b.i.d. p.r.n. for anxiety agitation Will consider increase in Invega Sustenna- due 05/13/21 Greater than 50% of the session was spent on counseling and/or coordination of care Reason for contiued inpatient stay Substantial Risk for: harm to self, harm to others, inability to function and rapid decompensation
[2021-05-02] MEDS: OLANZapine 10 MG TABLET PO (20:33)
[2021-05-02] MEDS: hydrOXYzine HCL 25 MG TABLET PO (20:33)
[2021-05-03 06:00] VITALS: RESP 18
--- NOTE | 2021-05-03 15:15 | HO.PSYCHPN ---
Subjective Subjective Date of Service: 05/03/21 Reason For Visit: SECTION Subjective Notes: Section 7 Healthcare Proxy: No Guardianship: No Medical Problems Affecting Mental Status: No Interim History: Less visable in milieu today. Some anger and lability. Declines interaction. Staying close to his room, self-dialoguing Medication Compliance: Yes Side effects from medications: No Attending Groups: No Review of Systems Reports behavioral changes Psychiatric: Reports behavioral changes, Reports difficulty concentrating, Reports auditory hallucinations, Reports irritability, Reports anhedonia, Reports mood swings and Reports paranoia Mental Status Exam Mental Status Exam Patient Appearance: Disheveled Patient Orientation: Person and Place Level of Consciousness: Awake Patient Behavior: Guarded, Talkative, Suspicious, Resistive to Care, Avoidant, Fatigued, Distractible, Isolative and Poor Eye Contact Diagnostics Vital Signs (24Hr): Vital Signs - 24 hr 05/03/21 06:00 Respiratory Rate 18 Body Mass Index 31.7 Medications Medications Current Medications Generic Name Dose Route Start Last Admin Trade Name Freq PRN Reason Stop Dose Admin Acetaminophen 650 mg 04/26/21 22:03 04/29/21 09:44 Acetaminophen 325 Mg Tablet PO 650 mg Q6H PRN Administration Headache/Pain Mild Scale (1-3) Al Hydroxide/Mg Hydroxide 30 ml 04/26/21 22:03 Magnesium Hydrox/Alum Hydrox 30 Ml Oral.Susp PO Q6H PRN Heartburn/Nausea Benztropine Mesylate 0.5 mg 04/26/21 22:03 Benztropine Mesylate 0.5 Mg Tablet PO TID PRN Extrapyramidal Effects Diphenhydramine HCl 50 mg 04/26/21 22:03 Diphenhydramine Hcl 25 Mg Tablet PO Q4H PRN agitation Haloperidol 5 mg 04/26/21 22:03 Haloperidol 5 Mg Tablet PO Q4H PRN agitation Hydroxyzine HCl 25 mg 04/26/21 22:03 05/02/21 20:33 Hydroxyzine Hcl 25 Mg Tablet PO 25 mg TID PRN Administration Anxiety Magnesium Hydroxide 30 ml 04/26/21 22:03 Milk Of Magnesia 30 Ml Oral.Susp PO DAILY PRN Constipation Nicotine 21 mg 04/26/21 22:03 Nicotine 21 Mg Patch.Td24 TRANSDERMA DAILY PRN nocotine cessation Nicotine Polacrilex 4 mg 04/26/21 22:03 Nicotine Polacrilex 2 Mg Gum BUCCAL Q2H PRN Nicotine Cravings Olanzapine 10 mg 04/26/21 22:03 05/02/21 20:33 Olanzapine 10 Mg Tablet PO 10 mg BEDTIME HERON Administration Olanzapine 5 mg 04/27/21 14:16 Olanzapine 5 Mg Tablet PO BID PRN mild-moderate agitation Pharmacy Consult 1 each 04/26/21 18:33 Consult Rx Perform Med Rec MISCELLANE ONCE PRN Consult order Trazodone HCl 50 mg 04/26/21 22:03 Trazodone Hcl 50 Mg Tablet PO BEDTIME PRN Insomnia Allergies Allergies Allergy/AdvReac Type Severity Reaction Status Date / Time Penicillins [PCN] Allergy Unknown UNKNOWN Verified 10/05/20 19:44 Assessment & Plan Assessment & Plan (1) Schizophrenia: Qualifiers: Schizophrenia type: unspecified Qualified Code(s): F20.9 - Schizophrenia, unspecified Status: Acute Code(s): F20.9 - Schizophrenia, unspecified Assessment and Plan: 26 yo male, long history of schizophrenia, agitation, substance use, with a lapsed Blane's order presents after stopping meds (reported last meds 04/23/21) disorganized and needing extra support/care in modulation of mood, psychotic sx PLAN: Patient on Section 7. We have filed for civil commitment on 04/30/21. Court scheduled for 05/07/21 15 minutes checks for safety Zyprexa 10 mg at bedtime Zyprexa 5 mg b.i.d. p.r.n. for anxiety agitation Will consider increase in Invega Sustenna- due 05/13/21 Greater than 50% of the session was spent on counseling and/or coordination of care Reason for contiued inpatient stay Substantial Risk for: harm to self, harm to others, inability to function and rapid decompensation
[2021-05-03] MEDS: OLANZapine 10 MG TABLET PO (20:47)
[2021-05-03] MEDS: hydrOXYzine HCL 25 MG TABLET PO (22:14)
--- NOTE | 2021-05-04 10:13 | HO.PSYCHPN ---
Subjective Subjective Date of Service: 05/04/21 Reason For Visit: SECTION Subjective Notes: Section 7 Interim History: Pt screamed to let him sleep Medication Compliance: Yes Attending Groups: No Review of Systems Acute medical concerns: No Mental Status Exam Mental Status Exam Narrative: refused to speak with provider Level of Consciousness: Drowsy Patient Behavior: Belligerent and Uncooperative Mood Description: Angry Affect Description: Flat Ability to Follow Directions: Poor Speech Pattern: Excessive (yelled briefly) Thought Content: positive for [place] and positive for Poverty of Content Abnormal Motor Activity Signs and Symptoms: Psychomotor Retardation (?) Judgement: Poor Diagnostics Vital Signs (24Hr): Body Mass Index 31.7 Medications Medications Current Medications Generic Name Dose Route Start Last Admin Trade Name Freq PRN Reason Stop Dose Admin Acetaminophen 650 mg 04/26/21 22:03 04/29/21 09:44 Acetaminophen 325 Mg Tablet PO 650 mg Q6H PRN Administration Headache/Pain Mild Scale (1-3) Al Hydroxide/Mg Hydroxide 30 ml 04/26/21 22:03 Magnesium Hydrox/Alum Hydrox 30 Ml Oral.Susp PO Q6H PRN Heartburn/Nausea Benztropine Mesylate 0.5 mg 04/26/21 22:03 Benztropine Mesylate 0.5 Mg Tablet PO TID PRN Extrapyramidal Effects Diphenhydramine HCl 50 mg 04/26/21 22:03 Diphenhydramine Hcl 25 Mg Tablet PO Q4H PRN agitation Haloperidol 5 mg 04/26/21 22:03 Haloperidol 5 Mg Tablet PO Q4H PRN agitation Hydroxyzine HCl 25 mg 04/26/21 22:03 05/03/21 22:14 Hydroxyzine Hcl 25 Mg Tablet PO 25 mg TID PRN Administration Anxiety Magnesium Hydroxide 30 ml 04/26/21 22:03 Milk Of Magnesia 30 Ml Oral.Susp PO DAILY PRN Constipation Nicotine 21 mg 04/26/21 22:03 Nicotine 21 Mg Patch.Td24 TRANSDERMA DAILY PRN nocotine cessation Nicotine Polacrilex 4 mg 04/26/21 22:03 Nicotine Polacrilex 2 Mg Gum BUCCAL Q2H PRN Nicotine Cravings Olanzapine 10 mg 04/26/21 22:03 05/03/21 20:47 Olanzapine 10 Mg Tablet PO 10 mg BEDTIME HERON Administration Olanzapine 5 mg 04/27/21 14:16 Olanzapine 5 Mg Tablet PO BID PRN mild-moderate agitation Pharmacy Consult 1 each 04/26/21 18:33 Consult Rx Perform Med Rec MISCELLANE ONCE PRN Consult order Trazodone HCl 50 mg 04/26/21 22:03 Trazodone Hcl 50 Mg Tablet PO BEDTIME PRN Insomnia Allergies Allergies Allergy/AdvReac Type Severity Reaction Status Date / Time Penicillins [PCN] Allergy Unknown UNKNOWN Verified 10/05/20 19:44 Assessment & Plan Assessment & Plan (1) Schizophrenia: Qualifiers: Schizophrenia type: unspecified Qualified Code(s): F20.9 - Schizophrenia, unspecified Status: Acute Code(s): F20.9 - Schizophrenia, unspecified Assessment and Plan: 26 yo male, long history of schizophrenia, agitation, substance use, with a lapsed Blane's order presents after stopping meds (reported last meds 04/23/21) disorganized and needing extra support/care in modulation of mood, psychotic sx PLAN: Patient on Section 7. We have filed for civil commitment on 04/30/21. Court scheduled for 05/07/21 15 minutes checks for safety Zyprexa 10 mg at bedtime Zyprexa 5 mg b.i.d. p.r.n. for anxiety agitation Will consider increase in Invega Sustenna- due 05/13/21 Greater than 50% of the session was spent on counseling and/or coordination of care Reason for contiued inpatient stay Substantial Risk for: inability to function and rapid decompensation
--- NOTE | 2021-05-04 13:26 | PC.NURSE ---
PT MET WITH THIS [employer] COMMANDER 1:1 AND PT BEGAN VERBALIZING HIS FRUSTRATION WITH HIS MENTAL ILLNESS , HE WAS INTO THIS , AND THE CYCLE , OF BEING HOSPITALIZED. THE PT SAYS, HE IS FRUSTRATED WITH LIVING IN HOSPITALS AND FEELS THAT ITS HOPELESS SOMETIMES THAT HE'LL EVER BE ALONE AND IN CHARGE OF THINGS LIKE HI MONEY. PT IS ANGRY WITH [facility] AND FEELS LIKE THEY DON'T TRY TO UNDERSTAND HIM OR TRY TO REALLY HELP . PTS AFFECT WAS ANGRY,BUT SAD AND ON THE VERGE OF TEARS DISCUSSING HIS LIFE. PT SAYS, I LIVE IN HOSPITALS SO MUCH I REALLY DON'T KNOW WHATS GOING ON IN THE WORLD, MY BE I JUST WANT TO SIT AT THE PARK . PT IS DEPRESSED WITH THE LIFE HES BEEN GIVEN. PT VERBALIZED HIS FRUSTRATION WITH ALWAYS BE ASKED ABOUT MEDICATIONS, VS, AND LABS. T/W VALIDATED PTS CONCERNS AND EDUCATED HIM ON WAYS AND TOOLS TO STAY OUT OF THE HOSPITAL AND THE IMPORTANCE TO DEVELOPING RELATIONSHIPS WITH COMMUNITY STAFF. PTS REQUEST IS FOR [facility] TO ASSIST WITH HOUSING AND RETURN SOME CONTROL OF HIS FINANCES.
[2021-05-04] MEDS: OLANZapine 10 MG TABLET PO (20:32)
[2021-05-04] MEDS: hydrOXYzine HCL 25 MG TABLET PO (21:11)
--- NOTE | 2021-05-05 12:30 | HO.PSYCHPN ---
Subjective Subjective Date of Service: 05/05/21 Reason For Visit: SECTION Subjective Notes: Section 7 Healthcare Proxy: No Guardianship: No Medical Problems Affecting Mental Status: No Interim History: Patient doesn't think I am a doctor and if I am to leave him alone Nursing reported pt had good conversation with them about his predicament- encouraged pt to keep talking with those he feels he can Medication Compliance: Yes Attending Groups: No Review of Systems Review of Systems mostly spends time in bed Mental Status Exam Mental Status Exam Narrative: lying fully clothed in bed, no eye contact pulls sheet over his head Patient Appearance: Appropriate Patient Orientation: Person and Place Level of Consciousness: Awake Patient Behavior: Resistive to Care, Uncooperative and Poor Eye Contact Mood Description: Apathetic Affect Description: Labile Patient Cognition Impaired: No Ability to Follow Directions: Poor Speech Pattern: Poor Articulation Thought Process: Illogical Thought Content: positive for [place] Abnormal Motor Activity Signs and Symptoms: Psychomotor Retardation Judgement: Fair (by nursing report) Diagnostics Vital Signs (24Hr): Body Mass Index 31.7 Medications Medications Current Medications Generic Name Dose Route Start Last Admin Trade Name Freq PRN Reason Stop Dose Admin Acetaminophen 650 mg 04/26/21 22:03 04/29/21 09:44 Acetaminophen 325 Mg Tablet PO 650 mg Q6H PRN Administration Headache/Pain Mild Scale (1-3) Al Hydroxide/Mg Hydroxide 30 ml 04/26/21 22:03 Magnesium Hydrox/Alum Hydrox 30 Ml Oral.Susp PO Q6H PRN Heartburn/Nausea Benztropine Mesylate 0.5 mg 04/26/21 22:03 Benztropine Mesylate 0.5 Mg Tablet PO TID PRN Extrapyramidal Effects Diphenhydramine HCl 50 mg 04/26/21 22:03 Diphenhydramine Hcl 25 Mg Tablet PO Q4H PRN agitation Haloperidol 5 mg 04/26/21 22:03 Haloperidol 5 Mg Tablet PO Q4H PRN agitation Hydroxyzine HCl 25 mg 04/26/21 22:03 05/04/21 21:11 Hydroxyzine Hcl 25 Mg Tablet PO 25 mg TID PRN Administration Anxiety Magnesium Hydroxide 30 ml 04/26/21 22:03 Milk Of Magnesia 30 Ml Oral.Susp PO DAILY PRN Constipation Nicotine 21 mg 04/26/21 22:03 Nicotine 21 Mg Patch.Td24 TRANSDERMA DAILY PRN nocotine cessation Nicotine Polacrilex 4 mg 04/26/21 22:03 Nicotine Polacrilex 2 Mg Gum BUCCAL Q2H PRN Nicotine Cravings Olanzapine 10 mg 04/26/21 22:03 05/04/21 20:32 Olanzapine 10 Mg Tablet PO 10 mg BEDTIME HERON Administration Olanzapine 5 mg 04/27/21 14:16 Olanzapine 5 Mg Tablet PO BID PRN mild-moderate agitation Pharmacy Consult 1 each 04/26/21 18:33 Consult Rx Perform Med Rec MISCELLANE ONCE PRN Consult order Trazodone HCl 50 mg 04/26/21 22:03 Trazodone Hcl 50 Mg Tablet PO BEDTIME PRN Insomnia Allergies Allergies Allergy/AdvReac Type Severity Reaction Status Date / Time Penicillins [PCN] Allergy Unknown UNKNOWN Verified 10/05/20 19:44 Assessment & Plan Assessment & Plan (1) Schizophrenia: Qualifiers: Schizophrenia type: unspecified Qualified Code(s): F20.9 - Schizophrenia, unspecified Status: Acute Code(s): F20.9 - Schizophrenia, unspecified Assessment and Plan: 26 yo male, long history of schizophrenia, agitation, substance use, with a lapsed Bl[facility]'s order presents after stopping meds (reported last meds 04/23/21) disorganized and needing extra support/care in modulation of mood, psychotic sx PLAN: Patient on Section 7. We have filed for civil commitment on 04/30/21. Court scheduled for 05/07/21 15 minutes checks for safety Zyprexa 10 mg at bedtime Zyprexa 5 mg b.i.d. p.r.n. for anxiety agitation Will consider increase in Invega Sustenna- due 05/13/21 unwilling to meet with covering provider this weekend Greater than 50% of the session was spent on counseling and/or coordination of care Reason for contiued inpatient stay Substantial Risk for: inability to function and rapid decompensation
[2021-05-05] MEDS: hydrOXYzine HCL 25 MG TABLET PO (16:43)
[2021-05-05] MEDS: OLANZapine 10 MG TABLET PO (20:31)
[2021-05-06 06:00] VITALS: BP 121/75; PULSE 50; TEMP 36.8
--- NOTE | 2021-05-06 13:24 | HO.PSYCHPN ---
Subjective Subjective Date of Service: 05/06/21 Reason For Visit: SECTION Subjective Notes: Section 7 Healthcare Proxy: No Guardianship: No Medical Problems Affecting Mental Status: No Interim History: Pt declined to talk with TW today. Reminded pt of court date 05/07 and asked if he had questions. Pt was caustic and responded with verbal abuse. Later in the day pt actively self-dialoging while walking on the unit. Team reports he did approach social service and talk with them about wanting to return to work and having had several missed opportunities. Current lability of mood and thought process distortion is keeping him from moving forward. Review of Systems Reports behavioral changes Psychiatric: Reports abnormal sleep pattern, Reports anxiety, Reports behavioral changes, Reports depression, Reports difficulty concentrating, Reports auditory hallucinations, Reports hopelessness, Reports irritability, Reports anhedonia, Reports mood swings and Reports paranoia Mental Status Exam Mental Status Exam Patient Appearance: Fatigued, Disheveled and Unkempt Patient Orientation: Person and Place Level of Consciousness: Awake and Drowsy Patient Behavior: Guarded, Suspicious, Resistive to Care, Avoidant, Distractible and Poor Eye Contact Mood Description: Labile Affect Description: Labile Patient Cognition Impaired: Yes Ability to Follow Directions: Fair Speech Pattern: Spontaneous Speech Memory Description: Remote Impaired and Episodic Impaired Hallucinations: Auditory Delusions: Being Controlled, Paranoid Ideation and Present Perceptual Disturbances: Derealization Thought Process: Illogical and Distracted Thought Content: positive for Thought Blocking Depressive Symptoms: Increased Irritability, Sleeping More Than Usual, Low Self Esteem and Difficulty Concentrating Abnormal Motor Activity Signs and Symptoms: Agitation and Restlessness Judgement: Poor Diagnostics Vital Signs (24Hr): Vital Signs - 24 hr 05/06/21 06:00 Temperature 98.3 F Pulse Rate 50 Blood Pressure 121/75 Body Mass Index 31.7 Medications Medications Current Medications Generic Name Dose Route Start Last Admin Trade Name Freq PRN Reason Stop Dose Admin Acetaminophen 650 mg 04/26/21 22:03 04/29/21 09:44 Acetaminophen 325 Mg Tablet PO 650 mg Q6H PRN Administration Headache/Pain Mild Scale (1-3) Al Hydroxide/Mg Hydroxide 30 ml 04/26/21 22:03 Magnesium Hydrox/Alum Hydrox 30 Ml Oral.Susp PO Q6H PRN Heartburn/Nausea Benztropine Mesylate 0.5 mg 04/26/21 22:03 Benztropine Mesylate 0.5 Mg Tablet PO TID PRN Extrapyramidal Effects Diphenhydramine HCl 50 mg 04/26/21 22:03 Diphenhydramine Hcl 25 Mg Tablet PO Q4H PRN agitation Haloperidol 5 mg 04/26/21 22:03 Haloperidol 5 Mg Tablet PO Q4H PRN agitation Hydroxyzine HCl 25 mg 04/26/21 22:03 05/05/21 16:43 Hydroxyzine Hcl 25 Mg Tablet PO 25 mg TID PRN Administration Anxiety Magnesium Hydroxide 30 ml 04/26/21 22:03 Milk Of Magnesia 30 Ml Oral.Susp PO DAILY PRN Constipation Nicotine 21 mg 04/26/21 22:03 Nicotine 21 Mg Patch.Td24 TRANSDERMA DAILY PRN nocotine cessation Nicotine Polacrilex 4 mg 04/26/21 22:03 Nicotine Polacrilex 2 Mg Gum BUCCAL Q2H PRN Nicotine Cravings Olanzapine 10 mg 04/26/21 22:03 05/05/21 20:31 Olanzapine 10 Mg Tablet PO 10 mg BEDTIME HERON Administration Olanzapine 5 mg 04/27/21 14:16 Olanzapine 5 Mg Tablet PO BID PRN mild-moderate agitation Pharmacy Consult 1 each 04/26/21 18:33 Consult Rx Perform Med Rec MISCELLANE ONCE PRN Consult order Trazodone HCl 50 mg 04/26/21 22:03 Trazodone Hcl 50 Mg Tablet PO BEDTIME PRN Insomnia Allergies Allergies Allergy/AdvReac Type Severity Reaction Status Date / Time Penicillins [PCN] Allergy Unknown UNKNOWN Verified 10/05/20 19:44 Assessment & Plan Assessment & Plan (1) Schizophrenia: Qualifiers: Schizophrenia type: unspecified Qualified Code(s): F20.9 - Schizophrenia, unspecified Status: Acute Code(s): F20.9 - Schizophrenia, unspecified Assessment and Plan: 26 yo male, long history of schizophrenia, agitation, substance use, with a lapsed Blane's order presents after stopping meds (reported last meds 04/23/21) disorganized and needing extra support/care in modulation of mood, psychotic sx PLAN: Patient on Section 7. We have filed for civil commitment on 04/30/21. Court scheduled for 05/07/21 15 minutes checks for safety Zyprexa 10 mg at bedtime Zyprexa 5 mg b.i.d. p.r.n. for anxiety agitation Will consider increase in Invega Sustenna- due 05/13/21 unwilling to meet with TW today, however talking with SW team regarding career goals. Greater than 50% of the session was spent on counseling and/or coordination of care Reason for contiued inpatient stay Substantial Risk for: harm to self, harm to others, inability to function and rapid decompensation
[2021-05-06 18:00] VITALS: TEMP 36.9
[2021-05-06] MEDS: OLANZapine 10 MG TABLET PO (23:00)
--- NOTE | 2021-05-07 13:28 | P.PNPSI_ITS ---
Subjective Subjective Date of Service: 05/07/21 Reason For Visit: Schizophrenia Subjective Notes: Section 7 and Section 8 Healthcare Proxy: No Guardianship: No Medical Problems Affecting Mental Status: No Interim History: Lon did not attend his civil commitment hearing today. Section VIII was approved by the court with testimony from his [facility] outreach repulping supervisor Freya Corbin and representation by Certified Registered Nurse Anesthetist Adelfo. Suspect Artist Saba approved the Section VIII. Timing not to exceed six months. Testimony included concern over pt not dressing properly for the weather, altercations with others, disori entation to time, place, aggression with police, telling OP team about it being hard to hear others as there was a man in his head and his comments to OP team and his commercial real estate attorney regarding medication SE, including feeling weighed down, foggy and numb, not feeling like himself. Will continue this discussion with pt to make the best choice with him for med mgt. Certified Registered Nurse Anesthetist Adelfo discussed med choices and requested priorities be discussed which was completed, including Olanzapine, Invega, Abilify and stearing away from older, typical agents, although these will be available as needed. Pt seen later in the evening, principal technical writer approached him to aks if he wanted to meet to review the meeting, he declined, stating it never happened. Medication Compliance: Yes Side effects from medications: No Review of Systems Psychiatric: Reports depression, Reports difficulty concentrating, Reports auditory hallucinations, Reports hopelessness, Reports irritability, Reports anhedonia, Reports mood swings and Reports paranoia Mental Status Exam Mental Status Exam Patient Orientation: Person, Place and Situation Level of Consciousness: Awake Patient Behavior: Guarded, Passive, Suspicious, Resistive to Care, Avoidant, Distractible, Isolative and Poor Eye Contact Mood Description: Apathetic, Happy, Suspicious, Withdrawn, Depressed, Hostile, Anxious and Angry Affect Description: Labile Patient Cognition Impaired: Yes Ability to Follow Directions: Fair Speech Pattern: Difficulty Finding Words, Spontaneous Speech, Soft-Spoken and No Speech Memory Description: Remote Impaired and Episodic Impaired Hallucinations: Auditory Delusions: Paranoid Ideation and Present Perceptual Disturbances: Depersonalization and Derealization Thought Process: Illogical and Distracted Thought Content: positive for Flight of Ideas, positive for Circumstantial, positive for Preoccupation, positive for Thought Blocking and positive for Tangential Depressive Symptoms: Increased Anxiety, Diff. Making Decisions, Increased Irritability, Sleeping More Than Usual, Isolating-Friends/Family and Difficulty Concentrating Abnormal Motor Activity Signs and Symptoms: Restlessness Judgement: Poor Diagnostics Vital Signs (24Hr): Vital Signs - 24 hr 05/06/21 18:00 Temperature 98.4 F Body Mass Index 31.7 Medications Medications Current Medications Generic Name Dose Route Start Last Admin Trade Name Freq PRN Reason Stop Dose Admin Acetaminophen 650 mg 04/26/21 22:03 04/29/21 09:44 Acetaminophen 325 Mg Tablet PO 650 mg Q6H PRN Administration Headache/Pain Mild Scale (1-3) Al Hydroxide/Mg Hydroxide 30 ml 04/26/21 22:03 Magnesium Hydrox/Alum Hydrox 30 Ml Oral.Susp PO Q6H PRN Heartburn/Nausea Benztropine Mesylate 0.5 mg 04/26/21 22:03 Benztropine Mesylate 0.5 Mg Tablet PO TID PRN Extrapyramidal Effects Diphenhydramine HCl 50 mg 04/26/21 22:03 Diphenhydramine Hcl 25 Mg Tablet PO Q4H PRN agitation Haloperidol 5 mg 04/26/21 22:03 Haloperidol 5 Mg Tablet PO Q4H PRN agitation Hydroxyzine HCl 25 mg 04/26/21 22:03 05/05/21 16:43 Hydroxyzine Hcl 25 Mg Tablet PO 25 mg TID PRN Administration Anxiety Magnesium Hydroxide 30 ml 04/26/21 22:03 Milk Of Magnesia 30 Ml Oral.Susp PO DAILY PRN Constipation Nicotine 21 mg 04/26/21 22:03 Nicotine 21 Mg Patch.Td24 TRANSDERMA DAILY PRN nocotine cessation Nicotine Polacrilex 4 mg 04/26/21 22:03 Nicotine Polacrilex 2 Mg Gum BUCCAL Q2H PRN Nicotine Cravings Olanzapine 10 mg 04/26/21 22:03 05/06/21 23:00 Olanzapine 10 Mg Tablet PO 10 mg BEDTIME HERON Administration Olanzapine 5 mg 04/27/21 14:16 Olanzapine 5 Mg Tablet PO BID PRN mild-moderate agitation Pharmacy Consult 1 each 04/26/21 18:33 Consult Rx Perform Med Rec MISCELLANE ONCE PRN Consult order Trazodone HCl 50 mg 04/26/21 22:03 Trazodone Hcl 50 Mg Tablet PO BEDTIME PRN Insomnia Allergies Allergies Allergy/AdvReac Type Severity Reaction Status Date / Time Penicillins [PCN] Allergy Unknown UNKNOWN Verified 10/05/20 19:44 Assessment & Plan Assessment & Plan (1) Schizophrenia: Qualifiers: Schizophrenia type: unspecified Qualified Code(s): F20.9 - Schizophrenia, unspecified Status: Acute Code(s): F20.9 - Schizophrenia, unspecified Assessment and Plan: 26 yo male, long history of schizophrenia, agitation, substance use, with a lapsed Blane's order presents after stopping meds (reported last meds 04/23/21) disorganized and needing extra support/care in modulation of mood, psychotic sx PLAN: Section VIII approved by the court. Pt did not attend the hearing, and did not want to discuss it this evening. 15 minutes checks for safety Zyprexa 10 mg at bedtime Zyprexa 5 mg b.i.d. p.r.n. for anxiety agitation Will consider increase in Invega Sustenna- due 05/13/21 Discussion of medicine options/SE if pt will allow when we receive completed paperwork from the court. Greater than 50% of the session was spent on counseling and/or coordination of care Reason for contiued inpatient stay Substantial Risk for: harm to self, harm to others, inability to function and rapid decompensation
[2021-05-07 16:55] VITALS: BP 160/81; PULSE 80; TEMP 36.9
[2021-05-07] MEDS: OLANZapine 10 MG TABLET PO (20:20)
[2021-05-07] MEDS: hydrOXYzine HCL 25 MG TABLET PO (20:21)
[2021-05-08] MEDS: OLANZapine 10 MG TABLET PO (20:18)
[2021-05-08] MEDS: hydrOXYzine HCL 25 MG TABLET PO (20:21)
--- NOTE | 2021-05-09 09:28 | P.PNPSI_ITS ---
Subjective Subjective Date of Service: 05/08/21 Reason For Visit: Schizophrenia Interim History: Patient calm on approach, does not make eye contact. He says he wants a different doctor and is angry at and sidewalk us since she is always taking him to court. Assembler Dc Field Ring tried to frame perspective, but patient was not willing to listen and turned to walk away. Otherwise however staff reports that patient has been more social and spontaneously talkative than in the past, And somewhat seems to be doing better Mental Status Exam Mental Status Exam Narrative: Patient Orientation: Person, Place and Situation Level of Consciousness: Awake Patient Behavior: Guarded, Passive, Suspicious, Resistive to Care, Avoidant, Distractible, Isolative and Poor Eye Contact Mood Description: irritable Affect Description: constricted to blunted Patient Cognition Impaired: Yes Ability to Follow Directions: Fair Speech Pattern: Difficulty Finding Words, Spontaneous Speech, Soft-Spoken and No Speech Memory Description: Remote Impaired and Episodic Impaired Hallucinations: Auditory Delusions: Paranoid Ideation and Present Perceptual Disturbances: Depersonalization and Derealization Thought Process: Illogical and Distracted Thought Content: positive for Flight of Ideas, positive for Circumstantial, positive for Preoccupation, positive for Thought Blocking and positive for Tangential Depressive Symptoms: Increased Anxiety, Diff. Making Decisions, Increased Irritability, Sleeping More Than Usual, Isolating-Friends/Family and Difficulty Concentrating Abnormal Motor Activity Signs and Symptoms: Restlessness Judgement: Poor Diagnostics Vital Signs (24Hr): Body Mass Index 31.7 Medications Medications Current Medications Generic Name Dose Route Start Last Admin Trade Name Freq PRN Reason Stop Dose Admin Acetaminophen 650 mg 04/26/21 22:03 04/29/21 09:44 Acetaminophen 325 Mg Tablet PO 650 mg Q6H PRN Administration Headache/Pain Mild Scale (1-3) Al Hydroxide/Mg Hydroxide 30 ml 04/26/21 22:03 Magnesium Hydrox/Alum Hydrox 30 Ml Oral.Susp PO Q6H PRN Heartburn/Nausea Benztropine Mesylate 0.5 mg 04/26/21 22:03 Benztropine Mesylate 0.5 Mg Tablet PO TID PRN Extrapyramidal Effects Diphenhydramine HCl 50 mg 04/26/21 22:03 Diphenhydramine Hcl 25 Mg Tablet PO Q4H PRN agitation Haloperidol 5 mg 04/26/21 22:03 Haloperidol 5 Mg Tablet PO Q4H PRN agitation Hydroxyzine HCl 25 mg 04/26/21 22:03 05/08/21 20:21 Hydroxyzine Hcl 25 Mg Tablet PO 25 mg TID PRN Administration Anxiety Magnesium Hydroxide 30 ml 04/26/21 22:03 Milk Of Magnesia 30 Ml Oral.Susp PO DAILY PRN Constipation Nicotine 21 mg 04/26/21 22:03 Nicotine 21 Mg Patch.Td24 TRANSDERMA DAILY PRN nocotine cessation Nicotine Polacrilex 4 mg 04/26/21 22:03 Nicotine Polacrilex 2 Mg Gum BUCCAL Q2H PRN Nicotine Cravings Olanzapine 10 mg 04/26/21 22:03 05/08/21 20:18 Olanzapine 10 Mg Tablet PO 10 mg BEDTIME HERON Administration Olanzapine 5 mg 04/27/21 14:16 Olanzapine 5 Mg Tablet PO BID PRN mild-moderate agitation Pharmacy Consult 1 each 04/26/21 18:33 Consult Rx Perform Med Rec MISCELLANE ONCE PRN Consult order Trazodone HCl 50 mg 04/26/21 22:03 Trazodone Hcl 50 Mg Tablet PO BEDTIME PRN Insomnia Allergies Allergies Allergy/AdvReac Type Severity Reaction Status Date / Time Penicillins [PCN] Allergy Unknown UNKNOWN Verified 10/05/20 19:44 Assessment & Plan Assessment & Plan (1) Schizophrenia: Qualifiers: Schizophrenia type: unspecified Qualified Code(s): F20.9 - Schizophrenia, unspecified Status: Acute Code(s): F20.9 - Schizophrenia, unspecified Assessment and Plan: Assembler Dc Field Ring cover patient No changes to current treatment plan 26 yo male, long history of schizophrenia, agitation, substance use, with a lapsed Blane's order presents after stopping meds (reported last meds 04/23/21) disorganized and needing extra support/care in modulation of mood, psychotic sx PLAN: Section VIII approved by the court. Pt did not attend the hearing, and did not want to discuss it this evening. 15 minutes checks for safety Zyprexa 10 mg at bedtime Zyprexa 5 mg b.i.d. p.r.n. for anxiety agitation Will consider increase in Invega Sustenna- due 05/13/21 Discussion of medicine options/SE if pt will allow when we receive completed paperwork from the court. Greater than 50% of the session was spent on counseling and/or coordination of care Reason for contiued inpatient stay Substantial Risk for: rapid decompensation
--- NOTE | 2021-05-09 12:25 | P.PNPSI_ITS ---
Subjective Subjective Date of Service: 05/09/21 Reason For Visit: Schizophrenia Subjective Notes: Section 8 Healthcare Proxy: No Guardianship: No Medical Problems Affecting Mental Status: No Interim History: F-You. Pt in bed, expressing anger when approached to discuss medication choices and questions. Will continue with Olanzapine/Invega Sustenna combination unless pt asks to discuss another preference Medication Compliance: Yes Side effects from medications: No Attending Groups: No Review of Systems Review of Systems Yes Unobtainable due to mental status Psychiatric: Reports abnormal sleep pattern, Reports difficulty concentrating, Reports auditory hallucinations, Reports hopelessness, Reports irritability, Reports anhedonia, Reports paranoia and Reports hallucinations Mental Status Exam Mental Status Exam Patient Appearance: Disheveled Patient Orientation: Person, Place and Situation Level of Consciousness: Awake Patient Behavior: Guarded, Suspicious, Aggressive, Belligerent, Swearing, Resistive to Care, Avoidant, Distractible, Isolative, Uncooperative and Poor Eye Contact Mood Description: Angry Affect Description: Angry Patient Cognition Impaired: Yes Ability to Follow Directions: Fair Speech Pattern: Spontaneous Speech, Inappropriate and Includes Profanity Memory Description: Remote Impaired and Episodic Impaired Hallucinations: Auditory Delusions: Paranoid Ideation and Present Thought Process: Illogical, Distracted and Rumination Thought Content: positive for Perseveration, positive for Loose Associations, positive for Thought Blocking, positive for Tangential and positive for Disorganized Depressive Symptoms: Sleeping More Than Usual, Loss of Int. in Activity and Difficulty Concentrating Abnormal Motor Activity Signs and Symptoms: Agitation Judgement: Poor Diagnostics Vital Signs (24Hr): Body Mass Index 31.7 Medications Medications Current Medications Generic Name Dose Route Start Last Admin Trade Name Freq PRN Reason Stop Dose Admin Acetaminophen 650 mg 04/26/21 22:03 04/29/21 09:44 Acetaminophen 325 Mg Tablet PO 650 mg Q6H PRN Administration Headache/Pain Mild Scale (1-3) Al Hydroxide/Mg Hydroxide 30 ml 04/26/21 22:03 Magnesium Hydrox/Alum Hydrox 30 Ml Oral.Susp PO Q6H PRN Heartburn/Nausea Benztropine Mesylate 0.5 mg 04/26/21 22:03 Benztropine Mesylate 0.5 Mg Tablet PO TID PRN Extrapyramidal Effects Diphenhydramine HCl 50 mg 04/26/21 22:03 Diphenhydramine Hcl 25 Mg Tablet PO Q4H PRN agitation Haloperidol 5 mg 04/26/21 22:03 Haloperidol 5 Mg Tablet PO Q4H PRN agitation Hydroxyzine HCl 25 mg 04/26/21 22:03 05/08/21 20:21 Hydroxyzine Hcl 25 Mg Tablet PO 25 mg TID PRN Administration Anxiety Magnesium Hydroxide 30 ml 04/26/21 22:03 Milk Of Magnesia 30 Ml Oral.Susp PO DAILY PRN Constipation Nicotine 21 mg 04/26/21 22:03 Nicotine 21 Mg Patch.Td24 TRANSDERMA DAILY PRN nocotine cessation Nicotine Polacrilex 4 mg 04/26/21 22:03 Nicotine Polacrilex 2 Mg Gum BUCCAL Q2H PRN Nicotine Cravings Olanzapine 10 mg 04/26/21 22:03 05/08/21 20:18 Olanzapine 10 Mg Tablet PO 10 mg BEDTIME HERON Administration Olanzapine 5 mg 04/27/21 14:16 Olanzapine 5 Mg Tablet PO BID PRN mild-moderate agitation Pharmacy Consult 1 each 04/26/21 18:33 Consult Rx Perform Med Rec MISCELLANE ONCE PRN Consult order Trazodone HCl 50 mg 04/26/21 22:03 Trazodone Hcl 50 Mg Tablet PO BEDTIME PRN Insomnia Allergies Allergies Allergy/AdvReac Type Severity Reaction Status Date / Time Penicillins [PCN] Allergy Unknown UNKNOWN Verified 10/05/20 19:44 Assessment & Plan Assessment & Plan (1) Schizophrenia: Qualifiers: Schizophrenia type: unspecified Qualified Code(s): F20.9 - Schizophrenia, unspecified Status: Acute Code(s): F20.9 - Schizophrenia, unspecified Assessment and Plan: 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 Greater than 50% of the session was spent on counseling and/or coordination of care Reason for contiued inpatient stay Substantial Risk for: harm to self, harm to others, inability to function and rapid decompensation
[2021-05-09] MEDS: OLANZapine 7.5 MG TABLET 15 MG PO (20:53)
[2021-05-09] MEDS: hydrOXYzine HCL 25 MG TABLET PO (22:49)
--- NOTE | 2021-05-10 17:09 | P.PNPSI_ITS ---
Subjective Subjective Date of Service: 05/10/21 Reason For Visit: Schizophrenia Subjective Notes: Section 8 Healthcare Proxy: No Guardianship: No Medical Problems Affecting Mental Status: No Interim History: Experience of fatigue with increase in Olanzapine dose. Will continue to monitor. Invega IM due next week. Met with his hospice social worker to discuss outcome of court hearing. Continues to refuse to meet with specifications writer. Medication Compliance: Yes Side effects from medications: Yes (tiredness, fatigue) Attending Groups: No Review of Systems Psychiatric: Reports auditory hallucinations, Reports irritability and Reports paranoia Mental Status Exam Mental Status Exam Patient Appearance: Disheveled Patient Orientation: Person, Place, Time and Situation Level of Consciousness: Alert Patient Behavior: Guarded, Suspicious and Poor Eye Contact Mood Description: Withdrawn Affect Description: Flat Patient Cognition Impaired: Yes Speech Pattern: Spontaneous Speech Memory Description: Episodic Impaired Hallucinations: Auditory Delusions: Paranoid Ideation and Present Thought Process: Illogical Thought Content: positive for Circumstantial and positive for Thought Blocking Depressive Symptoms: Sleeping More Than Usual (Increase in Olanzapine 05/09.) Judgement: Poor Diagnostics Vital Signs (24Hr): Body Mass Index 31.7 Medications Medications Current Medications Generic Name Dose Route Start Last Admin Trade Name Freq PRN Reason Stop Dose Admin Acetaminophen 650 mg 04/26/21 22:03 04/29/21 09:44 Acetaminophen 325 Mg Tablet PO 650 mg Q6H PRN Administration Headache/Pain Mild Scale (1-3) Al Hydroxide/Mg Hydroxide 30 ml 04/26/21 22:03 Magnesium Hydrox/Alum Hydrox 30 Ml Oral.Susp PO Q6H PRN Heartburn/Nausea Benztropine Mesylate 0.5 mg 04/26/21 22:03 Benztropine Mesylate 0.5 Mg Tablet PO TID PRN Extrapyramidal Effects Diphenhydramine HCl 50 mg 04/26/21 22:03 Diphenhydramine Hcl 25 Mg Tablet PO Q4H PRN agitation Haloperidol 5 mg 04/26/21 22:03 Haloperidol 5 Mg Tablet PO Q4H PRN agitation Hydroxyzine HCl 25 mg 04/26/21 22:03 05/09/21 22:49 Hydroxyzine Hcl 25 Mg Tablet PO 25 mg TID PRN Administration Anxiety Magnesium Hydroxide 30 ml 04/26/21 22:03 Milk Of Magnesia 30 Ml Oral.Susp PO DAILY PRN Constipation Nicotine 21 mg 04/26/21 22:03 Nicotine 21 Mg Patch.Td24 TRANSDERMA DAILY PRN nocotine cessation Nicotine Polacrilex 4 mg 04/26/21 22:03 Nicotine Polacrilex 2 Mg Gum BUCCAL Q2H PRN Nicotine Cravings Olanzapine 5 mg 04/27/21 14:16 Olanzapine 5 Mg Tablet PO BID PRN mild-moderate agitation Olanzapine 15 mg 05/09/21 21:00 05/09/21 20:53 Olanzapine 7.5 Mg Tablet PO 15 mg BEDTIME HERON Administration Olanzapine 15 mg 05/09/21 14:26 Olanzapine 10 Mg Vial IM DAILY PRN to be given if pt refuses pill per court order Paliperidone Palmitate 156 mg 05/13/21 09:00 Paliperidone Palmitate 156 Mg/Ml Syringe IM Q30D [facility] Pharmacy Consult 1 each 04/26/21 18:33 Consult Rx Perform Med Rec MISCELLANE ONCE PRN Consult order Trazodone HCl 50 mg 04/26/21 22:03 Trazodone Hcl 50 Mg Tablet PO BEDTIME PRN Insomnia Allergies Allergies Allergy/AdvReac Type Severity Reaction Status Date / Time Penicillins [PCN] Allergy Unknown UNKNOWN Verified 10/05/20 19:44 Assessment & Plan Assessment & Plan (1) Schizophrenia: Qualifiers: Schizophrenia type: unspecified Qualified Code(s): F20.9 - Schizophrenia, unspecified Status: Acute Code(s): F20.9 - Schizophrenia, unspecified Assessment and Plan: 26 yo male, long history of schizophrenia, agitation, substance use, with a lapsed Blane's order presents after stopping meds (reported last meds 04/23/21) disorganized and needing extra support/care in modulation of mood, psychotic sx PLAN: Section VIII Increase Olanzapine to 15 mg HS Invega Sustenna 156 mg 05/13/21 CBCD, CMP, EKG [facility] Application for longer term hospitalization. Greater than 50% of the session was spent on counseling and/or coordination of care Reason for contiued inpatient stay Substantial Risk for: harm to self, harm to others, inability to function and rapid decompensation
[2021-05-10] MEDS: OLANZapine 7.5 MG TABLET 15 MG PO (20:34)
--- NOTE | 2021-05-11 08:19 | P.PNPSI_ITS ---
Subjective Subjective Date of Service: 05/11/21 Reason For Visit: Schizophrenia Subjective Notes: Conditional Voluntary Medical Problems Affecting Mental Status: No Interim History: Patient was seen in rounds today. He has been stable and to lerating the increase of Zyprexa. Current medications and labs were reviewed. He is awaiting a long-acting antipsychotic to be received by pharmacy before discharge. Eating adequately. No complaints were changes today. Medication Compliance: Yes Side effects from medications: No Attending Groups: Yes Review of Systems Psychiatric: Reports auditory hallucinations, Reports irritability and Reports paranoia Mental Status Exam Mental Status Exam Narrative: In today's visit he is alert, oriented and pleasant. Speech is normal. Moderate eye contact. Appropriate and constricted affect. No acute signs of psychosis but there are reports of auditory hallucinations. No overt delusions. No SI. Cognitively intact. Judgment is intact Patient Orientation: Place Diagnostics Vital Signs (24Hr): Body Mass Index 31.7 Medications Medications Current Medications Generic Name Dose Route Start Last Admin Trade Name Freq PRN Reason Stop Dose Admin Acetaminophen 650 mg 04/26/21 22:03 04/29/21 09:44 Acetaminophen 325 Mg Tablet PO 650 mg Q6H PRN Administration Headache/Pain Mild Scale (1-3) Al Hydroxide/Mg Hydroxide 30 ml 04/26/21 22:03 Magnesium Hydrox/Alum Hydrox 30 Ml Oral.Susp PO Q6H PRN Heartburn/Nausea Benztropine Mesylate 0.5 mg 04/26/21 22:03 Benztropine Mesylate 0.5 Mg Tablet PO TID PRN Extrapyramidal Effects Diphenhydramine HCl 50 mg 04/26/21 22:03 Diphenhydramine Hcl 25 Mg Tablet PO Q4H PRN agitation Haloperidol 5 mg 04/26/21 22:03 Haloperidol 5 Mg Tablet PO Q4H PRN agitation Hydroxyzine HCl 25 mg 04/26/21 22:03 05/09/21 22:49 Hydroxyzine Hcl 25 Mg Tablet PO 25 mg TID PRN Administration Anxiety Magnesium Hydroxide 30 ml 04/26/21 22:03 Milk Of Magnesia 30 Ml Oral.Susp PO DAILY PRN Constipation Nicotine 21 mg 04/26/21 22:03 Nicotine 21 Mg Patch.Td24 TRANSDERMA DAILY PRN nocotine cessation Nicotine Polacrilex 4 mg 04/26/21 22:03 Nicotine Polacrilex 2 Mg Gum BUCCAL Q2H PRN Nicotine Cravings Olanzapine 5 mg 04/27/21 14:16 Olanzapine 5 Mg Tablet PO BID PRN mild-moderate agitation Olanzapine 15 mg 05/09/21 21:00 05/10/21 20:34 Olanzapine 7.5 Mg Tablet PO 15 mg BEDTIME HERON Administration Olanzapine 15 mg 05/09/21 14:26 Olanzapine 10 Mg Vial IM DAILY PRN to be given if pt refuses pill per court order Paliperidone Palmitate 156 mg 05/13/21 09:00 Paliperidone Palmitate 156 Mg/Ml Syringe IM Q30D [facility] Pharmacy Consult 1 each 04/26/21 18:33 Consult Rx Perform Med Rec MISCELLANE ONCE PRN Consult order Trazodone HCl 50 mg 04/26/21 22:03 Trazodone Hcl 50 Mg Tablet PO BEDTIME PRN Insomnia Allergies Allergies Allergy/AdvReac Type Severity Reaction Status Date / Time Penicillins [PCN] Allergy Unknown UNKNOWN Verified 10/05/20 19:44 Assessment & Plan Assessment & Plan (1) Schizophrenia: Qualifiers: Schizophrenia type: unspecified Qualified Code(s): F20.9 - Schizophrenia, unspecified Status: Acute Code(s): F20.9 - Schizophrenia, unspecified Assessment and Plan: 26 yo male, long history of schizophrenia, agitation, substance use, with a lapsed Blane's order presents after stopping meds (reported last meds 04/23/21) disorganized and needing extra support/care in modulation of mood, psychotic sx PLAN: Section VIII Increase Olanzapine to 15 mg HS Invega Sustenna 156 mg 05/13/21 CBCD, CMP, EKG [facility] Application for longer term hospitalization. Greater than 50% of the session was spent on counseling and/or coordination of care Reason for contiued inpatient stay Substantial Risk for: med/psych decompensation
[2021-05-11] MEDS: OLANZapine 7.5 MG TABLET 15 MG PO (20:36)
[2021-05-11] MEDS: hydrOXYzine HCL 25 MG TABLET PO (21:01)
--- NOTE | 2021-05-12 09:12 | HO.PSYCHPN ---
Subjective Subjective Date of Service: 05/12/21 Reason For Visit: Schizophrenia Interim History: Patient was seen in rounds and discussed. He is doing a little better and has been more social and out. Except for when he is out he is mostly in his room and in bed, sleeping. Sleeping at nights also. No complaints or side effects. Eating adequately. Current plans, regimen and labs reviewed. No changes were made today Review of Systems Review of Systems Auditory hallucinations, paranoia Yes all other systems are reviewed and are negative Psychiatric: Reports auditory hallucinations, Reports irritability and Reports paranoia Mental Status Exam Mental Status Exam Narrative: In today's visit he is alert, oriented and pleasant. Speech is normal. Moderate eye contact. Appropriate and constricted affect. No acute signs of psychosis but there are reports of auditory hallucinations. Some paranoia present. No overt delusions. No SI. Cognitively intact. Judgment is intact Patient Orientation: Place Diagnostics Vital Signs (24Hr): Body Mass Index 31.7 Medications Medications Current Medications Generic Name Dose Route Start Last Admin Trade Name Freq PRN Reason Stop Dose Admin Acetaminophen 650 mg 04/26/21 22:03 04/29/21 09:44 Acetaminophen 325 Mg Tablet PO 650 mg Q6H PRN Administration Headache/Pain Mild Scale (1-3) Al Hydroxide/Mg Hydroxide 30 ml 04/26/21 22:03 Magnesium Hydrox/Alum Hydrox 30 Ml Oral.Susp PO Q6H PRN Heartburn/Nausea Benztropine Mesylate 0.5 mg 04/26/21 22:03 Benztropine Mesylate 0.5 Mg Tablet PO TID PRN Extrapyramidal Effects Diphenhydramine HCl 50 mg 04/26/21 22:03 Diphenhydramine Hcl 25 Mg Tablet PO Q4H PRN agitation Haloperidol 5 mg 04/26/21 22:03 Haloperidol 5 Mg Tablet PO Q4H PRN agitation Hydroxyzine HCl 25 mg 04/26/21 22:03 05/11/21 21:01 Hydroxyzine Hcl 25 Mg Tablet PO 25 mg TID PRN Administration Anxiety Magnesium Hydroxide 30 ml 04/26/21 22:03 Milk Of Magnesia 30 Ml Oral.Susp PO DAILY PRN Constipation Nicotine 21 mg 04/26/21 22:03 Nicotine 21 Mg Patch.Td24 TRANSDERMA DAILY PRN nocotine cessation Nicotine Polacrilex 4 mg 06/11/21 22:03 Nicotine Polacrilex 2 Mg Gum BUCCAL Q2H PRN Nicotine Cravings Olanzapine 5 mg 04/27/21 14:16 Olanzapine 5 Mg Tablet PO BID PRN mild-moderate agitation Olanzapine 15 mg 05/09/21 21:00 05/11/21 20:36 Olanzapine 7.5 Mg Tablet PO 15 mg BEDTIME HERON Administration Olanzapine 15 mg 05/09/21 14:26 Olanzapine 10 Mg Vial IM DAILY PRN to be given if pt refuses pill per court order Paliperidone Palmitate 156 mg 05/13/21 09:00 Paliperidone Palmitate 156 Mg/Ml Syringe IM Q30D [facility] Pharmacy Consult 1 each 04/26/21 18:33 Consult Rx Perform Med Rec MISCELLANE ONCE PRN Consult order Trazodone HCl 50 mg 04/26/21 22:03 Trazodone Hcl 50 Mg Tablet PO BEDTIME PRN Insomnia Allergies Allergies Allergy/AdvReac Type Severity Reaction Status Date / Time Penicillins [PCN] Allergy Unknown UNKNOWN Verified 10/05/20 19:44 Assessment & Plan Assessment & Plan (1) Schizophrenia: Qualifiers: Schizophrenia type: unspecified Qualified Code(s): F20.9 - Schizophrenia, unspecified Status: Acute Code(s): F20.9 - Schizophrenia, unspecified Assessment and Plan: 26 yo male, long history of schizophrenia, agitation, substance use, with a lapsed Blane's order presents after stopping meds (reported last meds 04/23/21) disorganized and needing extra support/care in modulation of mood, psychotic sx PLAN: Section VIII Increase Olanzapine to 15 mg HS Invega Sustenna 156 mg 05/13/21 CBCD, CMP, EKG [facility] Application for longer term hospitalization. Greater than 50% of the session was spent on counseling and/or coordination of care Reason for contiued inpatient stay Substantial Risk for: other
[2021-05-12 16:00] VITALS: BP 153/72; PULSE 67; TEMP 36.8
[2021-05-12] MEDS: OLANZapine 7.5 MG TABLET 15 MG PO (19:42)
[2021-05-13 06:00] VITALS: RESP 16
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
[2021-05-13] MEDS: Paliperidone Palmitate 156 MG/ML SYRINGE IM (10:45)
--- NOTE | 2021-05-13 12:48 | HO.PSYCHPN ---
Subjective Subjective Date of Service: 05/13/21 Reason For Visit: Schizophrenia Subjective Notes: Section 8 Healthcare Proxy: No Guardianship: No Medical Problems Affecting Mental Status: No Interim History: Visable, interacting with peers. Pacing, responding to internal stimuli. Medication Compliance: Yes Side effects from medications: No Attending Groups: No Review of Systems Reports behavioral changes Psychiatric: Reports behavioral changes, Reports difficulty concentrating, Reports auditory hallucinations, Reports irritability, Reports mood swings, Reports paranoia, Reports visual hallucinations and Reports hallucinations Mental Status Exam Mental Status Exam Patient Appearance: Disheveled Patient Orientation: Person, Place and Situation Level of Consciousness: Awake Patient Behavior: Guarded, Suspicious, Restless, Avoidant, Isolative, Pacing and Poor Eye Contact Mood Description: Constricted Affect Description: Constricted Patient Cognition Impaired: Yes Ability to Follow Directions: Fair Speech Pattern: Spontaneous Speech Memory Description: Remote Impaired and Episodic Impaired Hallucinations: Auditory Delusions: Present Perceptual Disturbances: Derealization Thought Process: Distracted Thought Content: positive for [place], positive for Circumstantial, positive for Perseveration and positive for Thought Blocking Depressive Symptoms: Diff. Making Decisions Judgement: Poor Diagnostics Vital Signs (24Hr): Vital Signs - 24 hr 05/12/21 16:00 05/13/21 06:00 Temperature 98.3 F Pulse Rate 67 Respiratory Rate 16 Blood Pressure 153/72 H Body Mass Index 31.7 Medications Medications Current Medications Generic Name Dose Route Start Last Admin Trade Name Freq PRN Reason Stop Dose Admin Acetaminophen 650 mg 04/26/21 22:03 04/29/21 09:44 Acetaminophen 325 Mg Tablet PO 650 mg Q6H PRN Administration Headache/Pain Mild Scale (1-3) Al Hydroxide/Mg Hydroxide 30 ml 04/26/21 22:03 Magnesium Hydrox/Alum Hydrox 30 Ml Oral.Susp PO Q6H PRN Heartburn/Nausea Benztropine Mesylate 0.5 mg 04/26/21 22:03 Benztropine Mesylate 0.5 Mg Tablet PO TID PRN Extrapyramidal Effects Diphenhydramine HCl 50 mg 04/26/21 22:03 Diphenhydramine Hcl 25 Mg Tablet PO Q4H PRN agitation Haloperidol 5 mg 04/26/21 22:03 Haloperidol 5 Mg Tablet PO Q4H PRN agitation Hydroxyzine HCl 25 mg 04/26/21 22:03 05/11/21 21:01 Hydroxyzine Hcl 25 Mg Tablet PO 25 mg TID PRN Administration Anxiety Magnesium Hydroxide 30 ml 04/26/21 22:03 Milk Of Magnesia 30 Ml Oral.Susp PO DAILY PRN Constipation Nicotine 21 mg 04/26/21 22:03 Nicotine 21 Mg Patch.Td24 TRANSDERMA DAILY PRN nocotine cessation Nicotine Polacrilex 4 mg 04/26/21 22:03 Nicotine Polacrilex 2 Mg Gum BUCCAL Q2H PRN Nicotine Cravings Olanzapine 5 mg 04/27/21 14:16 Olanzapine 5 Mg Tablet PO BID PRN mild-moderate agitation Olanzapine 15 mg 05/09/21 21:00 05/12/21 19:42 Olanzapine 7.5 Mg Tablet PO 15 mg BEDTIME HERON Administration Olanzapine 15 mg 05/09/21 14:26 Olanzapine 10 Mg Vial IM DAILY PRN to be given if pt refuses pill per court order Paliperidone Palmitate 156 mg 05/13/21 09:00 05/13/21 10:45 Paliperidone Palmitate 156 Mg/Ml Syringe IM 156 mg Q30D HERON Administration Pharmacy Consult 1 each 04/26/21 18:33 Consult Rx Perform Med Rec MISCELLANE ONCE PRN Consult order Trazodone HCl 50 mg 04/26/21 22:03 Trazodone Hcl 50 Mg Tablet PO BEDTIME PRN Insomnia Allergies Allergies Allergy/AdvReac Type Severity Reaction Status Date / Time Penicillins [PCN] Allergy Unknown UNKNOWN Verified 10/05/20 19:44 Assessment & Plan Assessment & Plan (1) Schizophrenia: Qualifiers: Schizophrenia type: unspecified Qualified Code(s): F20.9 - Schizophrenia, unspecified Status: Acute Code(s): F20.9 - Schizophrenia, unspecified Assessment and Plan: 26 yo male, long history of schizophrenia, agitation, substance use, with a lapsed Blane's order presents after stopping meds (reported last meds 04/23/21) disorganized and needing extra support/care in modulation of mood, psychotic sx PLAN: Section VIII Continue Olanzapine 15 mg HS Invega Sustenna 156 mg today CBCD, CMP, EKG-not completed yet. [facility] Application for longer term hospitalization. Greater than 50% of the session was spent on counseling and/or coordination of care Reason for contiued inpatient stay Substantial Risk for: harm to self, harm to others, inability to function and rapid decompensation
[2021-05-13 18:00] VITALS: BP 130/65; PULSE 61; RESP 16; TEMP 36.8; O2SAT 98
[2021-05-13] MEDS: OLANZapine 7.5 MG TABLET 15 MG PO (20:41)
--- NOTE | 2021-05-14 16:43 | HO.PSYCHPN ---
Subjective Subjective Date of Service: 05/14/21 Reason For Visit: Schizophrenia Subjective Notes: Section 8 Healthcare Proxy: No Guardianship: No Medical Problems Affecting Mental Status: No Interim History: Team reports increase in interactive communication and some attendance in structured groups. Feeling bored today. Calls to several local GED programs regarding their availability to assist pt in working toward GED. All are willing and able to asssit him. Pt appears more connected in the milieu, talking with peers and team, engaging in discussion, alert, focused and calmer overall appearing. Medication Compliance: Yes Side effects from medications: No Attending Groups: Yes (structured-attending voluntarily) Review of Systems Reports behavioral changes Psychiatric: Reports behavioral changes, Reports difficulty concentrating, Reports auditory hallucinations, Reports irritability and Reports paranoia Mental Status Exam Mental Status Exam Patient Appearance: Disheveled Patient Orientation: Person, Place and Situation Level of Consciousness: Awake and Alert Patient Behavior: Appropriate, Talkative and Cooperative Mood Description: Constricted Affect Description: Constricted Patient Cognition Impaired: Yes Ability to Follow Directions: Fair Speech Pattern: Spontaneous Speech Memory Description: Remote Impaired Hallucinations: Auditory Delusions: Present Thought Process: Distracted Thought Content: positive for [place] and positive for Circumstantial Depressive Symptoms: Diff. Making Decisions, Unhappiness, Low Self Esteem and Difficulty Concentrating Judgement: Poor Diagnostics Vital Signs (24Hr): Vital Signs - 24 hr 05/13/21 18:00 Temperature 98.3 F Pulse Rate 61 Respiratory Rate 16 Blood Pressure 130/65 Pulse Oximetry 98 Body Mass Index 31.7 Medications Medications Current Medications Generic Name Dose Route Start Last Admin Trade Name Freq PRN Reason Stop Dose Admin Acetaminophen 650 mg 04/26/21 22:03 04/29/21 09:44 Acetaminophen 325 Mg Tablet PO 650 mg Q6H PRN Administration Headache/Pain Mild Scale (1-3) Al Hydroxide/Mg Hydroxide 30 ml 04/26/21 22:03 Magnesium Hydrox/Alum Hydrox 30 Ml Oral.Susp PO Q6H PRN Heartburn/Nausea Benztropine Mesylate 0.5 mg 04/26/21 22:03 Benztropine Mesylate 0.5 Mg Tablet PO TID PRN Extrapyramidal Effects Diphenhydramine HCl 50 mg 04/26/21 22:03 Diphenhydramine Hcl 25 Mg Tablet PO Q4H PRN agitation Haloperidol 5 mg 04/26/21 22:03 Haloperidol 5 Mg Tablet PO Q4H PRN agitation Hydroxyzine HCl 25 mg 04/26/21 22:03 05/11/21 21:01 Hydroxyzine Hcl 25 Mg Tablet PO 25 mg TID PRN Administration Anxiety Magnesium Hydroxide 30 ml 04/26/21 22:03 Milk Of Magnesia 30 Ml Oral.Susp PO DAILY PRN Constipation Nicotine 21 mg 04/26/21 22:03 Nicotine 21 Mg Patch.Td24 TRANSDERMA DAILY PRN nocotine cessation Nicotine Polacrilex 4 mg 04/26/21 22:03 Nicotine Polacrilex 2 Mg Gum BUCCAL Q2H PRN Nicotine Cravings Olanzapine 5 mg 04/27/21 14:16 Olanzapine 5 Mg Tablet PO BID PRN mild-moderate agitation Olanzapine 15 mg 05/09/21 21:00 05/13/21 20:41 Olanzapine 7.5 Mg Tablet PO 15 mg BEDTIME HERON Administration Olanzapine 15 mg 05/09/21 14:26 Olanzapine 10 Mg Vial IM DAILY PRN to be given if pt refuses pill per court order Paliperidone Palmitate 156 mg 05/13/21 09:00 05/13/21 10:45 Paliperidone Palmitate 156 Mg/Ml Syringe IM 156 mg Q30D HERON Administration Pharmacy Consult 1 each 04/26/21 18:33 Consult Rx Perform Med Rec MISCELLANE ONCE PRN Consult order Trazodone HCl 50 mg 04/26/21 22:03 Trazodone Hcl 50 Mg Tablet PO BEDTIME PRN Insomnia Allergies Allergies Allergy/AdvReac Type Severity Reaction Status Date / Time Penicillins [PCN] Allergy Unknown UNKNOWN Verified 10/05/20 19:44 Assessment & Plan Assessment & Plan (1) Schizophrenia: Qualifiers: Schizophrenia type: unspecified Qualified Code(s): F20.9 - Schizophrenia, unspecified Status: Acute Code(s): F20.9 - Schizophrenia, unspecified Assessment and Plan: 26 yo male, long history of schizophrenia, agitation, substance use, with a lapsed Blane's order presents after stopping meds (reported last meds 04/23/21) disorganized and needing extra support/care in modulation of mood, psychotic sx PLAN: Section VIII Continue Olanzapine 15 mg HS Invega Sustenna 156 mg monthly-next dosage 06/12/21. [facility] Application for longer term hospitalization. Greater than 50% of the session was spent on counseling and/or coordination of care Reason for contiued inpatient stay Substantial Risk for: harm to self, harm to others, inability to function and rapid decompensation
[2021-05-14] MEDS: hydrOXYzine HCL 25 MG TABLET PO (20:43)
[2021-05-14] MEDS: OLANZapine 7.5 MG TABLET 15 MG PO (20:43)
--- NOTE | 2021-05-15 15:01 | HO.PSYCHPN ---
Subjective Subjective Date of Service: 05/15/21 Reason For Visit: Schizophrenia Subjective Notes: Section 8 Healthcare Proxy: No Guardianship: No Medical Problems Affecting Mental Status: No Interim History: Team reports pt is talking about his commitment and telling them he is pleased that he is getting more time in hospital. Reported improvement by all. Medication Compliance: Yes Side effects from medications: No Attending Groups: Yes Review of Systems Reports behavioral changes Psychiatric: Reports behavioral changes, Reports difficulty concentrating, Reports auditory hallucinations, Reports anhedonia and Reports mood swings Mental Status Exam Mental Status Exam Patient Appearance: Disheveled Patient Orientation: Person, Place and Situation Level of Consciousness: Alert Patient Behavior: Guarded, Talkative, Cooperative and Distractible Mood Description: Constricted Affect Description: Constricted Patient Cognition Impaired: Yes Ability to Follow Directions: Fair Speech Pattern: Spontaneous Speech Memory Description: Remote Impaired Hallucinations: Auditory Delusions: Present Thought Process: Distracted Thought Content: positive for Circumstantial and positive for Tangential Depressive Symptoms: Diff. Making Decisions, Loss of Int. in Activity, Low Self Esteem and Difficulty Concentrating Judgement: Poor Diagnostics Vital Signs (24Hr): Body Mass Index 31.7 Medications Medications Current Medications Generic Name Dose Route Start Last Admin Trade Name Freq PRN Reason Stop Dose Admin Acetaminophen 650 mg 04/26/21 22:03 04/29/21 09:44 Acetaminophen 325 Mg Tablet PO 650 mg Q6H PRN Administration Headache/Pain Mild Scale (1-3) Al Hydroxide/Mg Hydroxide 30 ml 04/26/21 22:03 Magnesium Hydrox/Alum Hydrox 30 Ml Oral.Susp PO Q6H PRN Heartburn/Nausea Benztropine Mesylate 0.5 mg 04/26/21 22:03 Benztropine Mesylate 0.5 Mg Tablet PO TID PRN Extrapyramidal Effects Diphenhydramine HCl 50 mg 04/26/21 22:03 Diphenhydramine Hcl 25 Mg Tablet PO Q4H PRN agitation Haloperidol 5 mg 04/26/21 22:03 Haloperidol 5 Mg Tablet PO Q4H PRN agitation Hydroxyzine HCl 25 mg 04/26/21 22:03 05/14/21 20:43 Hydroxyzine Hcl 25 Mg Tablet PO 25 mg TID PRN Administration Anxiety Magnesium Hydroxide 30 ml 04/26/21 22:03 Milk Of Magnesia 30 Ml Oral.Susp PO DAILY PRN Constipation Nicotine 21 mg 04/26/21 22:03 Nicotine 21 Mg Patch.Td24 TRANSDERMA DAILY PRN nocotine cessation Nicotine Polacrilex 4 mg 04/26/21 22:03 Nicotine Polacrilex 2 Mg Gum BUCCAL Q2H PRN Nicotine Cravings Olanzapine 5 mg 04/27/21 14:16 Olanzapine 5 Mg Tablet PO BID PRN mild-moderate agitation Olanzapine 15 mg 05/09/21 21:00 05/14/21 20:43 Olanzapine 7.5 Mg Tablet PO 15 mg BEDTIME HERON Administration Olanzapine 15 mg 05/09/21 14:26 Olanzapine 10 Mg Vial IM DAILY PRN to be given if pt refuses pill per court order Paliperidone Palmitate 156 mg 05/13/21 09:00 05/13/21 10:45 Paliperidone Palmitate 156 Mg/Ml Syringe IM 156 mg Q30D HERON Administration Pharmacy Consult 1 each 04/26/21 18:33 Consult Rx Perform Med Rec MISCELLANE ONCE PRN Consult order Trazodone HCl 50 mg 04/26/21 22:03 Trazodone Hcl 50 Mg Tablet PO BEDTIME PRN Insomnia Allergies Allergies Allergy/AdvReac Type Severity Reaction Status Date / Time Penicillins [PCN] Allergy Unknown UNKNOWN Verified 10/05/20 19:44 Assessment & Plan Assessment & Plan (1) Schizophrenia: Qualifiers: Schizophrenia type: unspecified Qualified Code(s): F20.9 - Schizophrenia, unspecified Status: Acute Code(s): F20.9 - Schizophrenia, unspecified Assessment and Plan: 26 yo male, long history of schizophrenia, agitation, substance use, with a lapsed Blane's order presents after stopping meds (reported last meds 04/23/21) disorganized and needing extra support/care in modulation of mood, psychotic sx PLAN: Section VIII Continue Olanzapine 15 mg HS Invega Sustenna 156 mg monthly-next dosage 06/12/21. [facility] Application for longer term hospitalization. Greater than 50% of the session was spent on counseling and/or coordination of care Reason for contiued inpatient stay Substantial Risk for: harm to self, harm to others, inability to function, rapid decompensation and med/psych decompensation
[2021-05-15] MEDS: OLANZapine 7.5 MG TABLET 15 MG PO (20:22)
[2021-05-15 21:30] VITALS: BP 165/92; PULSE 94; RESP 20; TEMP 36.3; O2SAT 96
--- NOTE | 2021-05-16 15:47 | P.PNPSI_ITS ---
Subjective Subjective Date of Service: 05/16/21 Reason For Visit: Schizophrenia Subjective Notes: Section 8 Healthcare Proxy: No Guardianship: No Medical Problems Affecting Mental Status: No Interim History: [employer] application in process. Pt did sign a Section III today with his social media director. Tolerating medications. BP is intermittently high, today 165/92. Medication Compliance: Yes Side effects from medications: No Attending Groups: Intermittent Review of Systems Reports behavioral changes Psychiatric: Reports behavioral changes, Reports auditory hallucinations, Report s irritability and Reports paranoia Mental Status Exam Mental Status Exam Patient Appearance: Disheveled Patient Orientation: Person, Place and Situation Level of Consciousness: Awake Patient Behavior: Guarded, Wandering, Avoidant and Isolative Mood Description: Constricted Affect Description: Constricted Patient Cognition Impaired: Yes Ability to Follow Directions: Fair Speech Pattern: Spontaneous Speech Memory Description: Remote Impaired and Episodic Impaired Hallucinations: Auditory Delusions: Present Perceptual Disturbances: Derealization Thought Process: Distracted Thought Content: positive for [place] and positive for Circumstantial Depressive Symptoms: Diff. Making Decisions, Low Self Esteem and Difficulty Concentrating Abnormal Motor Activity Signs and Symptoms: Restlessness Judgement: Poor Diagnostics Vital Signs (24Hr): Vital Signs - 24 hr 05/15/21 21:30 Temperature 97.3 F Pulse Rate 94 Respiratory Rate 20 Blood Pressure 165/92 H Pulse Oximetry 96 Body Mass Index 31.7 Medications Medications Current Medications Generic Name Dose Route Start Last Admin Trade Name Freq PRN Reason Stop Dose Admin Acetaminophen 650 mg 04/26/21 22:03 04/29/21 09:44 Acetaminophen 325 Mg Tablet PO 650 mg Q6H PRN Administration Headache/Pain Mild Scale (1-3) Al Hydroxide/Mg Hydroxide 30 ml 04/26/21 22:03 Magnesium Hydrox/Alum Hydrox 30 Ml Oral.Susp PO Q6H PRN Heartburn/Nausea Benztropine Mesylate 0.5 mg 04/26/21 22:03 Benztropine Mesylate 0.5 Mg Tablet PO TID PRN Extrapyramidal Effects Diphenhydramine HCl 50 mg 04/26/21 22:03 Diphenhydramine Hcl 25 Mg Tablet PO Q4H PRN agitation Haloperidol 5 mg 04/26/21 22:03 Haloperidol 5 Mg Tablet PO Q4H PRN agitation Hydroxyzine HCl 25 mg 04/26/21 22:03 05/14/21 20:43 Hydroxyzine Hcl 25 Mg Tablet PO 25 mg TID PRN Administration Anxiety Magnesium Hydroxide 30 ml 04/26/21 22:03 Milk Of Magnesia 30 Ml Oral.Susp PO DAILY PRN Constipation Nicotine 21 mg 04/26/21 22:03 Nicotine 21 Mg Patch.Td24 TRANSDERMA DAILY PRN nocotine cessation Nicotine Polacrilex 4 mg 04/26/21 22:03 Nicotine Polacrilex 2 Mg Gum BUCCAL Q2H PRN Nicotine Cravings Olanzapine 5 mg 04/27/21 14:16 Olanzapine 5 Mg Tablet PO BID PRN mild-moderate agitation Olanzapine 15 mg 05/09/21 21:00 05/15/21 20:22 Olanzapine 7.5 Mg Tablet PO 15 mg BEDTIME HERON Administration Olanzapine 15 mg 05/09/21 14:26 Olanzapine 10 Mg Vial IM DAILY PRN to be given if pt refuses pill per court order Paliperidone Palmitate 156 mg 05/13/21 09:00 05/13/21 10:45 Paliperidone Palmitate 156 Mg/Ml Syringe IM 156 mg Q30D HERON Administration Pharmacy Consult 1 each 04/26/21 18:33 Consult Rx Perform Med Rec MISCELLANE ONCE PRN Consult order Trazodone HCl 50 mg 04/26/21 22:03 Trazodone Hcl 50 Mg Tablet PO BEDTIME PRN Insomnia Allergies Allergies Allergy/AdvReac Type Severity Reaction Status Date / Time Penicillins [PCN] Allergy Unknown UNKNOWN Verified 10/05/20 19:44 Assessment & Plan Assessment & Plan (1) Schizophrenia: Qualifiers: Schizophrenia type: unspecified Qualified Code(s): F20.9 - Schizophrenia, unspecified Status: Acute Code(s): F20.9 - Schizophrenia, unspecified Assessment and Plan: 26 yo male, long history of schizophrenia, agitation, substance use, with a lapsed Blane's order presents after stopping meds (reported last meds 04/23/21) disorganized and needing extra support/care in modulation of mood, psychotic sx PLAN: Section VIII Continue Olanzapine 15 mg HS Invega Sustenna 156 mg monthly-next dosage 06/12/21. Clonidine 0.1 mg HS to address blood pressure elevations. [employer] Application for longer term hospitalization. Greater than 50% of the session was spent on counseling and/or coordination of care Reason for contiued inpatient stay Substantial Risk for: harm to self, inability to function and rapid decompensation
[2021-05-16] MEDS: OLANZapine 7.5 MG TABLET 15 MG PO (20:15)
--- NOTE | 2021-05-17 17:17 | HO.PSYCHPN ---
Subjective Subjective Date of Service: 05/17/21 Reason For Visit: Schizophrenia Subjective Notes: Section 8 Healthcare Proxy: No Guardianship: No Medical Problems Affecting Mental Status: No Interim History: Pt tells team he is looking forward to attending another program and to working on his GED. Medication Compliance: Yes Side effects from medications: No Attending Groups: Yes Review of Systems Reports behavioral changes Psychiatric: Reports behavioral changes, Reports auditory hallucinations and Reports paranoia Mental Status Exam Mental Status Exam Patient Appearance: Disheveled Patient Orientation: Person, Place, Time and Situation Level of Consciousness: Alert Patient Behavior: Guarded, Suspicious and Isolative Mood Description: Constricted Affect Description: Constricted Patient Cognition Impaired: Yes Ability to Follow Directions: Fair Speech Pattern: Spontaneous Speech Memory Description: Remote Impaired and Episodic Impaired Hallucinations: Auditory Delusions: Present Thought Process: Illogical Thought Content: positive for Thought Blocking Depressive Symptoms: Increased Irritability, Low Self Esteem and Difficulty Concentrating Judgement: Poor Diagnostics Vital Signs (24Hr): Body Mass Index 31.7 Medications Medications Current Medications Generic Name Dose Route Start Last Admin Trade Name Freq PRN Reason Stop Dose Admin Acetaminophen 650 mg 04/26/21 22:03 04/29/21 09:44 Acetaminophen 325 Mg Tablet PO 650 mg Q6H PRN Administration Headache/Pain Mild Scale (1-3) Al Hydroxide/Mg Hydroxide 30 ml 04/26/21 22:03 Magnesium Hydrox/Alum Hydrox 30 Ml Oral.Susp PO Q6H PRN Heartburn/Nausea Benztropine Mesylate 0.5 mg 04/26/21 22:03 Benztropine Mesylate 0.5 Mg Tablet PO TID PRN Extrapyramidal Effects Clonidine HCl 0.1 mg 05/16/21 21:00 05/16/21 20:16 Clonidine Hcl 0.1 Mg Tablet PO Not Given BEDTIME HERON Protocol Diphenhydramine HCl 50 mg 04/26/21 22:03 Diphenhydramine Hcl 25 Mg Tablet PO Q4H PRN agitation Haloperidol 5 mg 04/26/21 22:03 Haloperidol 5 Mg Tablet PO Q4H PRN agitation Hydroxyzine HCl 25 mg 04/26/21 22:03 05/14/21 20:43 Hydroxyzine Hcl 25 Mg Tablet PO 25 mg TID PRN Administration Anxiety Magnesium Hydroxide 30 ml 04/26/21 22:03 Milk Of Magnesia 30 Ml Oral.Susp PO DAILY PRN Constipation Nicotine 21 mg 04/26/21 22:03 Nicotine 21 Mg Patch.Td24 TRANSDERMA DAILY PRN nocotine cessation Nicotine Polacrilex 4 mg 04/26/21 22:03 Nicotine Polacrilex 2 Mg Gum BUCCAL Q2H PRN Nicotine Cravings Olanzapine 5 mg 04/27/21 14:16 Olanzapine 5 Mg Tablet PO BID PRN mild-moderate agitation Olanzapine 15 mg 05/09/21 21:00 05/16/21 20:15 Olanzapine 7.5 Mg Tablet PO 15 mg BEDTIME HERON Administration Olanzapine 15 mg 05/09/21 14:26 Olanzapine 10 Mg Vial IM DAILY PRN to be given if pt refuses pill per court order Paliperidone Palmitate 156 mg 05/13/21 09:00 05/13/21 10:45 Paliperidone Palmitate 156 Mg/Ml Syringe IM 156 mg Q30D HERON Administration Pharmacy Consult 1 each 04/26/21 18:33 Consult Rx Perform Med Rec MISCELLANE ONCE PRN Consult order Trazodone HCl 50 mg 04/26/21 22:03 Trazodone Hcl 50 Mg Tablet PO BEDTIME PRN Insomnia Allergies Allergies Allergy/AdvReac Type Severity Reaction Status Date / Time Penicillins [PCN] Allergy Unknown UNKNOWN Verified 10/05/20 19:44 Assessment & Plan Assessment & Plan (1) Schizophrenia: Qualifiers: Schizophrenia type: unspecified Qualified Code(s): F20.9 - Schizophrenia, unspecified Status: Acute Code(s): F20.9 - Schizophrenia, unspecified Assessment and Plan: 26 yo male, long history of schizophrenia, agitation, substance use, with a lapsed Blane's order presents after stopping meds (reported last meds 04/23/21) disorganized and needing extra support/care in modulation of mood, psychotic sx PLAN: Section VIII Continue Olanzapine 15 mg HS Invega Sustenna 156 mg monthly-next dosage 06/12/21. Clonidine 0.1 mg HS to address blood pressure elevations. [employer] Application for longer term hospitalization. Greater than 50% of the session was spent on counseling and/or coordination of care Reason for contiued inpatient stay Substantial Risk for: harm to self, harm to others, inability to function and rapid decompensation
[2021-05-17 18:00] VITALS: BP 141/79; PULSE 70; TEMP 36.6
[2021-05-17] MEDS: hydrOXYzine HCL 25 MG TABLET PO (20:57)
[2021-05-17] MEDS: OLANZapine 7.5 MG TABLET 15 MG PO (20:57)
[2021-05-17 20:59] VITALS: BP 141/79; PULSE 70
--- NOTE | 2021-05-18 13:16 | HO.PSYCHPN ---
Subjective Subjective Date of Service: 05/18/21 Reason For Visit: Schizophrenia Subjective Notes: Section 8 Interim History: pt denies complaints; cooperative. pleasant. tolerating medications Medication Compliance: Yes Side effects from medications: No Attending Groups: No Review of Systems Review of Systems no changes Mental Status Exam Mental Status Exam Patient Appearance: Disheveled Patient Orientation: Person and Situation Level of Consciousness: Awake Patient Behavior: Appropriate and Poor Eye Contact Mood Description: Suspicious and Withdrawn Affect Description: Withdrawn Ability to Follow Directions: Good Speech Pattern: Impoverished Delusions: Paranoid Ideation Perceptual Disturbances: Hallucinations Judgement: Fair Diagnostics Vital Signs (24Hr): Vital Signs - 24 hr 05/17/21 18:00 05/17/21 20:59 Temperature 98 F Pulse Rate 70 70 Blood Pressure 141/79 H 141/79 H Body Mass Index 31.7 Medications Medications Current Medications Generic Name Dose Route Start Last Admin Trade Name Freq PRN Reason Stop Dose Admin Acetaminophen 650 mg 04/26/21 22:03 04/29/21 09:44 Acetaminophen 325 Mg Tablet PO 650 mg Q6H PRN Administration Headache/Pain Mild Scale (1-3) Al Hydroxide/Mg Hydroxide 30 ml 04/26/21 22:03 Magnesium Hydrox/Alum Hydrox 30 Ml Oral.Susp PO Q6H PRN Heartburn/Nausea Benztropine Mesylate 0.5 mg 04/26/21 22:03 Benztropine Mesylate 0.5 Mg Tablet PO TID PRN Extrapyramidal Effects Clonidine HCl 0.1 mg 05/16/21 21:00 05/17/21 20:59 Clonidine Hcl 0.1 Mg Tablet PO Not Given BEDTIME HERON Protocol Diphenhydramine HCl 50 mg 04/26/21 22:03 Diphenhydramine Hcl 25 Mg Tablet PO Q4H PRN agitation Haloperidol 5 mg 04/26/21 22:03 Haloperidol 5 Mg Tablet PO Q4H PRN agitation Hydroxyzine HCl 25 mg 04/26/21 22:03 05/17/21 20:57 Hydroxyzine Hcl 25 Mg Tablet PO 25 mg TID PRN Administration Anxiety Magnesium Hydroxide 30 ml 04/26/21 22:03 Milk Of Magnesia 30 Ml Oral.Susp PO DAILY PRN Constipation Nicotine 21 mg 04/26/21 22:03 Nicotine 21 Mg Patch.Td24 TRANSDERMA DAILY PRN nocotine cessation Nicotine Polacrilex 4 mg 04/26/21 22:03 Nicotine Polacrilex 2 Mg Gum BUCCAL Q2H PRN Nicotine Cravings Olanzapine 5 mg 04/27/21 14:16 Olanzapine 5 Mg Tablet PO BID PRN mild-moderate agitation Olanzapine 15 mg 05/09/21 21:00 05/17/21 20:57 Olanzapine 7.5 Mg Tablet PO 15 mg BEDTIME HERON Administration Olanzapine 15 mg 05/09/21 14:26 Olanzapine 10 Mg Vial IM DAILY PRN to be given if pt refuses pill per court order Paliperidone Palmitate 156 mg 05/13/21 09:00 05/13/21 10:45 Paliperidone Palmitate 156 Mg/Ml Syringe IM 156 mg Q30D HERON Administration Pharmacy Consult 1 each 04/26/21 18:33 Consult Rx Perform Med Rec MISCELLANE ONCE PRN Consult order Trazodone HCl 50 mg 04/26/21 22:03 Trazodone Hcl 50 Mg Tablet PO BEDTIME PRN Insomnia Allergies Allergies Allergy/AdvReac Type Severity Reaction Status Date / Time Penicillins [PCN] Allergy Unknown UNKNOWN Verified 10/05/20 19:44 Assessment & Plan Assessment & Plan (1) Schizophrenia: Qualifiers: Schizophrenia type: unspecified Qualified Code(s): F20.9 - Schizophrenia, unspecified Status: Acute Code(s): F20.9 - Schizophrenia, unspecified Assessment and Plan: 26 yo male, long history of schizophrenia, agitation, substance use, with a lapsed Blane's order presents after stopping meds (reported last meds 04/23/21) disorganized and needing extra support/care in modulation of mood, psychotic sx PLAN: Section VIII Continue Olanzapine 15 mg HS Invega Sustenna 156 mg monthly-next dosage 06/12/21. Clonidine 0.1 mg HS to address blood pressure elevations. [employer] Application for longer term hospitalization. Greater than 50% of the session was spent on counseling and/or coordination of care Reason for contiued inpatient stay Substantial Risk for: inability to function and med/psych decompensation
[2021-05-18] MEDS: OLANZapine 7.5 MG TABLET 15 MG PO (21:16)
[2021-05-18] MEDS: hydrOXYzine HCL 25 MG TABLET PO (21:16)
[2021-05-18 21:17] VITALS: BP 139/80; PULSE 74
--- NOTE | 2021-05-19 11:12 | P.HPPS_ITS ---
HPI Chief Complaint: Schizophrenia HPI Past Psychiatric History: Discharged from a few weeks ago; discontinued taking meds Multiple hospital stays He had a Blane's order but it has lapsed. Team reports pt needs a guardian assigned first before Blane's can be heard. Hx of Depakote and Haldol Dec 100 mg/ml 1 ml [facility] Medical History Chronic schizophrenia PTSD (post-traumatic stress disorder) Schizoaffective disorder Family History: Mental illness on father's side along with addiction-father with alcoholism Trauma History: Significant trauma by history Diagnostics Vital Signs (24Hr): Vital Signs - 24 hr 05/18/21 21:17 Pulse Rate 74 Blood Pressure 139/80 Body Mass Index 31.7 Meds/Allergies Meds Home Medications Acetaminophen (Acetaminophen 325 Mg Tablet) 650 mg PO Q6H PRN PRN Reason: Headache/Pain Mild Scale (1-3) Last Admin: 04/29/21 09:44 Dose: 650 mg Documented by: Al Hydroxide/Mg Hydroxide (Magnesium Hydrox/Alum Hydrox 30 Ml Oral.Susp) 30 ml PO Q6H PRN PRN Reason: Heartburn/Nausea Benztropine Mesylate (Benztropine Mesylate 0.5 Mg Tablet) 0.5 mg PO TID PRN PRN Reason: Extrapyramidal Effects Clonidine HCl (Clonidine Hcl 0.1 Mg Tablet) 0.1 mg PO BEDTIME HERON; Protocol Last Admin: 05/18/21 21:17 Dose: Not Given Documented by: Diphenhydramine HCl (Diphenhydramine Hcl 25 Mg Tablet) 50 mg PO Q4H PRN PRN Reason: agitation Haloperidol (Haloperidol 5 Mg Tablet) 5 mg PO Q4H PRN PRN Reason: agitation Hydroxyzine HCl (Hydroxyzine Hcl 25 Mg Tablet) 25 mg PO TID PRN PRN Reason: Anxiety Last Admin: 05/18/21 21:16 Dose: 25 mg Documented by: Magnesium Hydroxide (Milk Of Magnesia 30 Ml Oral.Susp) 30 ml PO DAILY PRN PRN Reason: Constipation Nicotine (Nicotine 21 Mg Patch.Td24) 21 mg TRANSDERMA DAILY PRN PRN Reason: nocotine cessation Nicotine Polacrilex (Nicotine Polacrilex 2 Mg Gum) 4 mg BUCCAL Q2H PRN PRN Reason: Nicotine Cravings Olanzapine (Olanzapine 5 Mg Tablet) 5 mg PO BID PRN PRN Reason: mild-moderate agitation Olanzapine (Olanzapine 7.5 Mg Tablet) 15 mg PO BEDTIME [facility] Last Admin: 05/18/21 21:16 Dose: 15 mg Documented by: Olanzapine (Olanzapine 10 Mg Vial) 15 mg IM DAILY PRN PRN Reason: to be given if pt refuses pill per court order Paliperidone Palmitate (Paliperidone Palmitate 156 Mg/Ml Syringe) 156 mg IM Q30D [facility] Last Admin: 05/13/21 10:45 Dose: 156 mg Documented by: Pharmacy Consult (Consult Rx Perform Med Rec) 1 each MISCELLANE ONCE PRN PRN Reason: Consult order Trazodone HCl (Trazodone Hcl 50 Mg Tablet) 50 mg PO BEDTIME PRN PRN Reason: Insomnia Allergies Allergies Allergy/AdvReac Type Severity Reaction Status Date / Time Penicillins [PCN] Allergy Unknown UNKNOWN Verified 10/05/20 19:44
--- NOTE | 2021-05-19 11:16 | P.PNPSI_ITS ---
Subjective Subjective Date of Service: 05/19/21 Reason For Visit: Schizophrenia Interim History: pt more logical and coherent in conversation. motivated for continued treatment to establish better supports and get his GED. denies complaints; cooperative. pleasant. tolerating medications Review of Systems Review of Systems Yes all other systems are reviewed and are negative and Unobtainable due to men yecenia status Reports behavioral changes and Reports confusion Psychiatric: Reports abnormal sleep pattern, Reports anxiety, Reports behavioral changes, Reports confusion, Reports depression, Reports difficulty concentrating, Reports auditory hallucinations, Reports hopelessness, Reports irritability, Reports anhedonia, Reports mood swings, Reports paranoia, Reports visual hallucinations, Reports hallucinations and Reports suicidal ideation ( NO ) Mental Status Exam Mental Status Exam Patient Appearance: Disheveled Patient Orientation: Person and Situation Level of Consciousness: Awake Patient Behavior: Appropriate and Poor Eye Contact Mood Description: Suspicious (less so ), Withdrawn (less so ) and Appropriate Affect Description: Withdrawn Patient Cognition Impaired: Yes Ability to Follow Directions: Good Speech Pattern: Clear and Coherent Memory Description: Remote Impaired and Episodic Impaired Thought Process: Goal Oriented Judgement: Fair Diagnostics Vital Signs (24Hr): Vital Signs - 24 hr 05/18/21 21:17 Pulse Rate 74 Blood Pressure 139/80 Body Mass Index 31.7 Medications Medications Current Medications Generic Name Dose Route Start Last Admin Trade Name Freq PRN Reason Stop Dose Admin Acetaminophen 650 mg 04/26/21 22:03 04/29/21 09:44 Acetaminophen 325 Mg Tablet PO 650 mg Q6H PRN Administration Headache/Pain Mild Scale (1-3) Al Hydroxide/Mg Hydroxide 30 ml 04/26/21 22:03 Magnesium Hydrox/Alum Hydrox 30 Ml Oral.Susp PO Q6H PRN Heartburn/Nausea Benztropine Mesylate 0.5 mg 04/26/21 22:03 Benztropine Mesylate 0.5 Mg Tablet PO TID PRN Extrapyramidal Effects Clonidine HCl 0.1 mg 05/16/21 21:00 05/18/21 21:17 Clonidine Hcl 0.1 Mg Tablet PO Not Given BEDTIME HERON Protocol Diphenhydramine HCl 50 mg 04/26/21 22:03 Diphenhydramine Hcl 25 Mg Tablet PO Q4H PRN agitation Haloperidol 5 mg 04/26/21 22:03 Haloperidol 5 Mg Tablet PO Q4H PRN agitation Hydroxyzine HCl 25 mg 04/26/21 22:03 07/03/21 21:16 Hydroxyzine Hcl 25 Mg Tablet PO 25 mg TID PRN Administration Anxiety Magnesium Hydroxide 30 ml 04/26/21 22:03 Milk Of Magnesia 30 Ml Oral.Susp PO DAILY PRN Constipation Nicotine 21 mg 04/26/21 22:03 Nicotine 21 Mg Patch.Td24 TRANSDERMA DAILY PRN nocotine cessation Nicotine Polacrilex 4 mg 04/26/21 22:03 Nicotine Polacrilex 2 Mg Gum BUCCAL Q2H PRN Nicotine Cravings Olanzapine 5 mg 04/27/21 14:16 Olanzapine 5 Mg Tablet PO BID PRN mild-moderate agitation Olanzapine 15 mg 05/09/21 21:00 05/18/21 21:16 Olanzapine 7.5 Mg Tablet PO 15 mg BEDTIME HERON Administration Olanzapine 15 mg 05/09/21 14:26 Olanzapine 10 Mg Vial IM DAILY PRN to be given if pt refuses pill per court order Paliperidone Palmitate 156 mg 05/13/21 09:00 05/13/21 10:45 Paliperidone Palmitate 156 Mg/Ml Syringe IM 156 mg Q30D HERON Administration Pharmacy Consult 1 each 04/26/21 18:33 Consult Rx Perform Med Rec MISCELLANE ONCE PRN Consult order Trazodone HCl 50 mg 04/26/21 22:03 Trazodone Hcl 50 Mg Tablet PO BEDTIME PRN Insomnia Allergies Allergies Allergy/AdvReac Type Severity Reaction Status Date / Time Penicillins [PCN] Allergy Unknown UNKNOWN Verified 10/05/20 19:44 Assessment & Plan Assessment & Plan (1) Schizophrenia: Qualifiers: Schizophrenia type: unspecified Qualified Code(s): F20.9 - Schizophrenia, unspecified Status: Acute Code(s): F20.9 - Schizophrenia, unspecified Assessment and Plan: 26 yo male, long history of schizophrenia, agitation, substance use, with a lapsed Blane's order presents after stopping meds (reported last meds 04/23/21) disorganized and needing extra support/care in modulation of mood, psychotic sx PLAN: Section VIII Continue Olanzapine 15 mg HS Invega Sustenna 156 mg monthly-next dosage 06/12/21. Clonidine 0.1 mg HS to address blood pressure elevations. [employer] Application for longer term hospitalization. Greater than 50% of the session was spent on counseling and/or coordination of care Reason for contiued inpatient stay Substantial Risk for: inability to function, rapid decompensation and med/psych decompensation
[2021-05-19 13:49] VITALS: BMI 29.2
[2021-05-19 16:52] VITALS: BP 146/73; PULSE 64; TEMP 36.5; O2SAT 97
[2021-05-19] MEDS: hydrOXYzine HCL 25 MG TABLET PO (20:54)
[2021-05-19] MEDS: OLANZapine 7.5 MG TABLET 15 MG PO (20:54)
[2021-05-19 20:56] VITALS: BP 146/73; PULSE 64
--- NOTE | 2021-05-20 12:23 | HO.PSYCHPN ---
Subjective Subjective Date of Service: 05/20/21 Reason For Visit: Schizophrenia Interim History: pt sleeping upon approach and unable to engage in conversation. staff report he has been more logical and goal oriented; no reports of side effects;tolerating medications Review of Systems Review of Systems Yes all other systems are reviewed and are negative and Unobtainable due to mental status Reports behavioral changes and Reports confusion Psychiatric: Reports abnormal sleep pattern, Reports anxiety, Reports behavioral changes, Reports confusion, Reports depression, Reports difficulty concentrating, Reports auditory hallucinations, Reports hopelessness, Reports irritability, Reports anhedonia, Reports mood swings, Reports paranoia, Reports visual hallucinations, Reports hallucinations and Reports suicidal ideation ( NO ) Mental Status Exam Mental Status Exam Patient Appearance: Disheveled Patient Orientation: Person and Situation Level of Consciousness: Awake Patient Behavior: Appropriate and Poor Eye Contact Mood Description: Suspicious (less so ), Withdrawn (less so ) and Appropriate Affect Description: Withdrawn Patient Cognition Impaired: Yes Ability to Follow Directions: Good Speech Pattern: Clear and Coherent Memory Description: Remote Impaired and Episodic Impaired Thought Content: positive for Goal Oriented Judgement: Fair Diagnostics Vital Signs (24Hr): Vital Signs - 24 hr 05/19/21 16:52 05/19/21 20:56 Temperature 97.7 F Pulse Rate 64 64 Blood Pressure 146/73 H 146/73 H Pulse Oximetry 97 Body Mass Index 29.2 Medications Medications Current Medications Generic Name Dose Route Start Last Admin Trade Name Freq PRN Reason Stop Dose Admin Acetaminophen 650 mg 04/26/21 22:03 04/29/21 09:44 Acetaminophen 325 Mg Tablet PO 650 mg Q6H PRN Administration Headache/Pain Mild Scale (1-3) Al Hydroxide/Mg Hydroxide 30 ml 04/26/21 22:03 Magnesium Hydrox/Alum Hydrox 30 Ml Oral.Susp PO Q6H PRN Heartburn/Nausea Benztropine Mesylate 0.5 mg 04/26/21 22:03 Benztropine Mesylate 0.5 Mg Tablet PO TID PRN Extrapyramidal Effects Clonidine HCl 0.1 mg 05/16/21 21:00 05/19/21 20:56 Clonidine Hcl 0.1 Mg Tablet PO Not Given BEDTIME HERON Protocol Diphenhydramine HCl 50 mg 04/26/21 22:03 Diphenhydramine Hcl 25 Mg Tablet PO Q4H PRN agitation Haloperidol 5 mg 06/11/21 22:03 Haloperidol 5 Mg Tablet PO Q4H PRN agitation Hydroxyzine HCl 25 mg 04/26/21 22:03 05/19/21 20:54 Hydroxyzine Hcl 25 Mg Tablet PO 25 mg TID PRN Administration Anxiety Magnesium Hydroxide 30 ml 04/26/21 22:03 Milk Of Magnesia 30 Ml Oral.Susp PO DAILY PRN Constipation Nicotine 21 mg 04/26/21 22:03 Nicotine 21 Mg Patch.Td24 TRANSDERMA DAILY PRN nocotine cessation Nicotine Polacrilex 4 mg 04/26/21 22:03 Nicotine Polacrilex 2 Mg Gum BUCCAL Q2H PRN Nicotine Cravings Olanzapine 5 mg 04/27/21 14:16 Olanzapine 5 Mg Tablet PO BID PRN mild-moderate agitation Olanzapine 15 mg 05/09/21 21:00 05/19/21 20:54 Olanzapine 7.5 Mg Tablet PO 15 mg BEDTIME HERON Administration Olanzapine 15 mg 05/09/21 14:26 Olanzapine 10 Mg Vial IM DAILY PRN to be given if pt refuses pill per court order Paliperidone Palmitate 156 mg 05/13/21 09:00 05/13/21 10:45 Paliperidone Palmitate 156 Mg/Ml Syringe IM 156 mg Q30D HERON Administration Pharmacy Consult 1 each 04/26/21 18:33 Consult Rx Perform Med Rec MISCELLANE ONCE PRN Consult order Trazodone HCl 50 mg 04/26/21 22:03 Trazodone Hcl 50 Mg Tablet PO BEDTIME PRN Insomnia Allergies Allergies Allergy/AdvReac Type Severity Reaction Status Date / Time Penicillins [PCN] Allergy Unknown UNKNOWN Verified 10/05/20 19:44 Assessment & Plan Assessment & Plan (1) Schizophrenia: Qualifiers: Schizophrenia type: unspecified Qualified Code(s): F20.9 - Schizophrenia, unspecified Status: Acute Code(s): F20.9 - Schizophrenia, unspecified Assessment and Plan: 26 yo male, long history of schizophrenia, agitation, substance use, with a lapsed [facility] order presents after stopping meds (reported last meds 04/23/21) disorganized and needing extra support/care in modulation of mood, psychotic sx PLAN: Section VIII Continue Olanzapine 15 mg HS Invega Sustenna 156 mg monthly-next dosage 06/12/21. Clonidine 0.1 mg HS to address blood pressure elevations. [facility] Application for longer term hospitalization. Greater than 50% of the session was spent on counseling and/or coordination of care Reason for contiued inpatient stay Substantial Risk for: inability to function, rapid decompensation and med/psych decompensation
[2021-05-20 16:10] VITALS: BP 122/70; PULSE 83; TEMP 36.6
[2021-05-20] MEDS: OLANZapine 7.5 MG TABLET 15 MG PO (21:33)
[2021-05-20] MEDS: hydrOXYzine HCL 25 MG TABLET PO (21:37)
[2021-05-20 22:40] VITALS: BP 126/72; PULSE 58
[2021-05-20] MEDS: cloNIDine HCL 0.1 MG TABLET PO (22:40)
--- NOTE | 2021-05-21 17:11 | HO.PSYCHPN ---
Subjective Subjective Date of Service: 05/21/21 Reason For Visit: Schizophrenia Subjective Notes: Section 8 Healthcare Proxy: No Guardianship: No Medical Problems Affecting Mental Status: No Interim History: Visable, interactive with team and peers. Team reports pt had a reasonable weekend, is more attentive to ADL's, more positive, denies depressive sx, denies SI. He has ambivalence about senior living treatment, asking about his diagnoses, feels he is just like everyone else, not schizophrenic. Pt has been talking to team about getting his GED. Today, [facility] purchased a GED study text for pt-he was seen using this and asking the team for assistance on some topics. Pt continues with anger with tw regarding civil commitment, however, he is embracing of the rest of the team and the milieu and appears comfortable with his plan of care. Medication Compliance: Yes Side effects from medications: No Attending Groups: Intermittent Review of Systems Reports behavioral changes Psychiatric: Reports behavioral changes, Reports auditory hallucinations, Reports irritability and Reports paranoia Mental Status Exam Mental Status Exam Patient Appearance: Disheveled Patient Orientation: Person, Place and Time Level of Consciousness: Alert Patient Behavior: Guarded, Talkative, Cooperative, Suspicious, Wandering, Avoidant, Distractible, Isolative and Poor Eye Contact Mood Description: Calm, Suspicious, Withdrawn, Appropriate, Constricted, Relaxed, Flat and Apprehensive Affect Description: Constricted and Flat Patient Cognition Impaired: Yes Speech Pattern: Spontaneous Speech and Soft-Spoken Memory Description: Remote Impaired and Episodic Impaired Hallucinations: Auditory Delusions: Present Thought Process: Distracted and Slowed Thinking Thought Content: positive for [place], positive for Circumstantial, positive for Suicidal Ideation (denies) and positive for Homicidal Ideation (denies) Depressive Symptoms: Diff. Making Decisions and Low Self Esteem Judgement: Poor Diagnostics Vital Signs (24Hr): Vital Signs - 24 hr 05/20/21 22:40 Pulse Rate 58 Blood Pressure 126/72 Body Mass Index 29.2 Medications Medications Current Medications Generic Name Dose Route Start Last Admin Trade Name Freq PRN Reason Stop Dose Admin Acetaminophen 650 mg 04/26/21 22:03 04/29/21 09:44 Acetaminophen 325 Mg Tablet PO 650 mg Q6H PRN Administration Headache/Pain Mild Scale (1-3) Al Hydroxide/Mg Hydroxide 30 ml 04/26/21 22:03 Magnesium Hydrox/Alum Hydrox 30 Ml Oral.Susp PO Q6H PRN Heartburn/Nausea Benztropine Mesylate 0.5 mg 04/26/21 22:03 Benztropine Mesylate 0.5 Mg Tablet PO TID PRN Extrapyramidal Effects Clonidine HCl 0.1 mg 05/16/21 21:00 05/20/21 22:40 Clonidine Hcl 0.1 Mg Tablet PO 0.1 mg BEDTIME HERON Administration Protocol Diphenhydramine HCl 50 mg 04/26/21 22:03 Diphenhydramine Hcl 25 Mg Tablet PO Q4H PRN agitation Haloperidol 5 mg 04/26/21 22:03 Haloperidol 5 Mg Tablet PO Q4H PRN agitation Hydroxyzine HCl 25 mg 04/26/21 22:03 05/20/21 21:37 Hydroxyzine Hcl 25 Mg Tablet PO 25 mg TID PRN Administration Anxiety Magnesium Hydroxide 30 ml 04/26/21 22:03 Milk Of Magnesia 30 Ml Oral.Susp PO DAILY PRN Constipation Nicotine 21 mg 04/26/21 22:03 Nicotine 21 Mg Patch.Td24 TRANSDERMA DAILY PRN nocotine cessation Nicotine Polacrilex 4 mg 04/26/21 22:03 Nicotine Polacrilex 2 Mg Gum BUCCAL Q2H PRN Nicotine Cravings Olanzapine 5 mg 04/27/21 14:16 Olanzapine 5 Mg Tablet PO BID PRN mild-moderate agitation Olanzapine 15 mg 05/09/21 21:00 05/20/21 21:33 Olanzapine 7.5 Mg Tablet PO 15 mg BEDTIME HERON Administration Olanzapine 15 mg 05/09/21 14:26 Olanzapine 10 Mg Vial IM DAILY PRN to be given if pt refuses pill per court order Paliperidone Palmitate 156 mg 05/13/21 09:00 05/13/21 10:45 Paliperidone Palmitate 156 Mg/Ml Syringe IM 156 mg Q30D HERON Administration Pharmacy Consult 1 each 04/26/21 18:33 Consult Rx Perform Med Rec MISCELLANE ONCE PRN Consult order Trazodone HCl 50 mg 04/26/21 22:03 Trazodone Hcl 50 Mg Tablet PO BEDTIME PRN Insomnia Allergies Allergies Allergy/AdvReac Type Severity Reaction Status Date / Time Penicillins [PCN] Allergy Unknown UNKNOWN Verified 10/05/20 19:44 Assessment & Plan Assessment & Plan (1) Schizophrenia: Qualifiers: Schizophrenia type: unspecified Qualified Code(s): F20.9 - Schizophrenia, unspecified Status: Acute Code(s): F20.9 - Schizophrenia, unspecified Assessment and Plan: 26 yo male, long history of schizophrenia, agitation, substance use, with a lapsed [facility] order presents after stopping meds (reported last meds 04/23/21) disorganized and needing extra support/care in modulation of mood, psychotic sx PLAN: Section VIII Continue Olanzapine 15 mg HS Invega Sustenna 156 mg monthly-next dosage 06/12/21. Clonidine 0.1 mg HS to address blood pressure elevations. [employer] Application for longer term hospitalization Encourage GED prep when pt has free time to assist him in structuring time, beginning to work toward his goals. Labs ordered for 05/22/21. Greater than 50% of the session was spent on counseling and/or coordination of care Reason for contiued inpatient stay Substantial Risk for: harm to self, harm to others, inability to function and rapid decompensation
[2021-05-21 20:24] VITALS: BP 140/82; PULSE 69
[2021-05-21] MEDS: cloNIDine HCL 0.1 MG TABLET PO (20:24)
[2021-05-21] MEDS: OLANZapine 7.5 MG TABLET 15 MG PO (20:24)
[2021-05-21 20:28] VITALS: BP 140/82; PULSE 69
--- NOTE | 2021-05-22 13:31 | P.PNPSI_ITS ---
Subjective Subjective Date of Service: 05/22/21 Reason For Visit: Schizophrenia Subjective Notes: Section 8 Healthcare Proxy: No Guardianship: Yes (community [place] by history) Medical Problems Affecting Mental Status: No Interim History: Lon is visable on the unit. He is calm, talkative, pacing, responding to internal stimuli, self-dialoguing at times. He is social with team and peers. He is accepting of medications as well. Medication Compliance: Yes Side effects from medications: No Attending Groups: Intermittent Review of Systems Reports behavioral changes Psychiatric: Reports behavioral changes, Reports auditory hallucinations, Reports mood swings and Reports paranoia Mental Status Exam Mental Status Exam Patient Appearance: Appropriate Patient Orientation: Person, Place and Situation Level of Consciousness: Alert Patient Behavior: Guarded, Talkative and Suspicious Mood Description: Blunted Affect Description: Blunted Patient Cognition Impaired: Yes Ability to Follow Directions: Good Speech Pattern: Spontaneous Speech Memory Description: Remote Impaired and Episodic Impaired Hallucinations: Auditory Delusions: Present Thought Process: Distracted Thought Content: positive for [place] and positive for Circumstantial Depressive Symptoms: Low Self Esteem Judgement: Poor Diagnostics Vital Signs (24Hr): Vital Signs - 24 hr 05/21/21 20:24 05/21/21 20:28 Pulse Rate 69 69 Blood Pressure 140/82 H 140/82 H Body Mass Index 29.2 Labs Results: 05/22/21 14:56 05/22/21 14:56 Medications Medications Current Medications Generic Name Dose Route Start Last Admin Trade Name Freq PRN Reason Stop Dose Admin Acetaminophen 650 mg 04/26/21 22:03 04/29/21 09:44 Acetaminophen 325 Mg Tablet PO 650 mg Q6H PRN Administration Headache/Pain Mild Scale (1-3) Al Hydroxide/Mg Hydroxide 30 ml 04/26/21 22:03 Magnesium Hydrox/Alum Hydrox 30 Ml Oral.Susp PO Q6H PRN Heartburn/Nausea Benztropine Mesylate 0.5 mg 04/26/21 22:03 Benztropine Mesylate 0.5 Mg Tablet PO TID PRN Extrapyramidal Effects Clonidine HCl 0.1 mg 05/16/21 21:00 05/21/21 20:24 Clonidine Hcl 0.1 Mg Tablet PO 0.1 mg BEDTIME HERON Administration Protocol Diphenhydramine HCl 50 mg 04/26/21 22:03 Diphenhydramine Hcl 25 Mg Tablet PO Q4H PRN agitation Haloperidol 5 mg 04/26/21 22:03 Haloperidol 5 Mg Tablet PO Q4H PRN agitation Hydroxyzine HCl 25 mg 04/26/21 22:03 05/20/21 21:37 Hydroxyzine Hcl 25 Mg Tablet PO 25 mg TID PRN Administration Anxiety Magnesium Hydroxide 30 ml 04/26/21 22:03 Milk Of Magnesia 30 Ml Oral.Susp PO DAILY PRN Constipation Nicotine 21 mg 04/26/21 22:03 Nicotine 21 Mg Patch.Td24 TRANSDERMA DAILY PRN nocotine cessation Nicotine Polacrilex 4 mg 04/26/21 22:03 Nicotine Polacrilex 2 Mg Gum BUCCAL Q2H PRN Nicotine Cravings Olanzapine 5 mg 04/27/21 14:16 Olanzapine 5 Mg Tablet PO BID PRN mild-moderate agitation Olanzapine 15 mg 05/09/21 21:00 05/21/21 20:24 Olanzapine 7.5 Mg Tablet PO 15 mg BEDTIME HERON Administration Olanzapine 15 mg 05/09/21 14:26 Olanzapine 10 Mg Vial IM DAILY PRN to be given if pt refuses pill per court order Paliperidone Palmitate 156 mg 05/13/21 09:00 05/13/21 10:45 Paliperidone Palmitate 156 Mg/Ml Syringe IM 156 mg Q30D HERON Administration Pharmacy Consult 1 each 04/26/21 18:33 Consult Rx Perform Med Rec MISCELLANE ONCE PRN Consult order Trazodone HCl 50 mg 04/26/21 22:03 Trazodone Hcl 50 Mg Tablet PO BEDTIME PRN Insomnia Allergies Allergies Allergy/AdvReac Type Severity Reaction Status Date / Time Penicillins [PCN] Allergy Unknown UNKNOWN Verified 10/05/20 19:44 Assessment & Plan Assessment & Plan (1) Schizophrenia: Qualifiers: Schizophrenia type: unspecified Qualified Code(s): F20.9 - Schizophrenia, unspecified Status: Acute Code(s): F20.9 - Schizophrenia, unspecified Assessment and Plan: 26 yo male, long history of schizophrenia, agitation, substance use, with [facility] order presents after stopping meds (reported last meds 04/23/21) disorganized and needing extra support/care in modulation of mood, psychotic sx PLAN: Section VIII Continue Olanzapine 15 mg HS Invega Sustenna 156 mg monthly-next dosage 06/12/21. Clonidine 0.1 mg HS to address blood pressure elevations. [facility] Application for longer term hospitalization Encourage GED prep when pt has free time to assist him in structuring time, beginning to work toward his goals. Labs pending. Greater than 50% of the session was spent on counseling and/or coordination of c are Reason for contiued inpatient stay Substantial Risk for: harm to self, harm to others, inability to function and rapid decompensation
[2021-05-22 14:59] LABS: MANUAL DIFF FLAG NO
[2021-05-22 15:02] LABS: Basophils Percent Auto 0.4 % (0-2); Eosinophils Absolute Auto 0.1 X10*3/uL (0.0-0.4); Hematocrit 43.8 % (42-52); Hemoglobin 15.3 g/dl (14.0-18.0); Imm Gran Abs Auto 0.01 X10*3/uL (0.00-0.03); Imm Gran Pct Auto 0.2 % (0.0-0.4); Lymphocytes Absolute Auto 1.4 X10*3/uL (1.2-4.9); Lymphocytes Percent Auto 25.8 % (20-40); Mean Corpuscular HGB Conc 34.9 g/dl (31.0-36.0); Mean Corpuscular Hemoglobin 30.6 pg (27.0-33.0); Mean Corpuscular Volume 87.6 fL (80-98); Mean Platelet Volume 9.4 fL (9.4-12.4); Monocytes Absolute Auto 0.5 X10*3/uL (0.1-1.2); Monocytes Percent Auto 8.6 % (2-11); Neutrophils Absolute Auto 3.4 X10*3/uL (2.0-8.3); Platelet Count 187 X10*3/uL (160-400); Red Cell Distribution Width 11.9 % (11.0-16.0); White Blood Count 5.5 X10*3/uL (4.8-10.8)
[2021-05-22 15:29] LABS: Alanine Aminotransferase 25 U/L (0-40); Albumin Level 4.8 g/dL (3.5-5.0); Alkaline Phosphatase 73 U/L (39-117); Anion Gap 14 (12-20); Aspartate Amino Transferase 18 U/L (5-37); Bilirubin Total 0.6 mg/dL (0.0-1.0); Blood Urea Nitrogen 13 mg/dL (9-16); Calcium 9.8 mg/dL (8.4-10.2); Carbon Dioxide 25 mmol/L (22-29); Chloride 107 mmol/L (96-108); Creatinine Clr Calc Pharmacy 140.3; Estimated Glomerular Filt Rate > 60; Glucose Random 113 mg/dL (60-115); Potassium 4.2 mmol/L (3.3-5.1); Sodium 142 mmol/L (135-145); Total Protein 7.2 g/dL (6.5-8.0)
[2021-05-22 18:00] VITALS: BP 133/75; PULSE 71; TEMP 36.6
[2021-05-22 21:05] VITALS: BP 133/75; PULSE 71
[2021-05-22] MEDS: cloNIDine HCL 0.1 MG TABLET PO (21:05)
[2021-05-22] MEDS: OLANZapine 7.5 MG TABLET 15 MG PO (21:06)
--- NOTE | 2021-05-23 16:30 | P.PNPSI_ITS ---
Subjective Subjective Date of Service: 05/23/21 Reason For Visit: Schizophrenia Subjective Notes: Section 8 Healthcare Proxy: No Guardianship: Yes (community [employer] pending) Medical Problems Affecting Mental Status: No Interim History: [place] is visable in milieu, interacting with peers and team. He remains in bed for most of the day and does the majority of interacting in the afternoon and evening. Team is encouraging him to focus attention on ADL's. Review of Systems Reports behavioral changes Psychiatric: Reports behavioral changes, Reports difficulty concentrating, Reports auditory hallucinations, Reports mood swings and Reports paranoia Mental Status Exam Mental Status Exam Patient Appearance: Disheveled Patient Orientation: Person, Place, Time and Situation Level of Consciousness: Alert Patient Behavior: Appropriate and Talkative Mood Description: Constricted Affect Description: Constricted Patient Cognition Impaired: Yes Ability to Follow Directions: Good Speech Pattern: Spontaneous Speech Memory Description: Remote Impaired and Episodic Impaired Hallucinations: Auditory Delusions: Not Present Thought Process: Distracted Thought Content: positive for [place] and positive for Circumstantial Judgement: Fair Diagnostics Vital Signs (24Hr): Vital Signs - 24 hr 05/22/21 18:00 05/22/21 21:05 Temperature 98 F Pulse Rate 71 71 Blood Pressure 133/75 133/75 Body Mass Index 29.2 Labs Results: 05/22/21 14:56 05/22/21 14:56 Labs: Laboratory Results - last 48 hr 05/22/21 05/22/21 14:56 14:56 WBC 5.5 RBC 5.00 Hgb 15.3 Hct 43.8 MCV 87.6 MCH 30.6 MCHC 34.9 RDW 11.9 Plt Count 187 MPV 9.4 Immature Gran % (Auto) 0.2 Neut % (Auto) 63.0 Lymph % (Auto) 25.8 [place] % (Auto) 8.6 Eos % (Auto) 2.0 Baso % (Auto) 0.4 Lymph # (Auto) 1.4 [place] # (Auto) 0.5 Eos # (Auto) 0.1 Baso # (Auto) 0.0 Abs Immat Gran (auto) 0.01 Absolute Neuts (auto) 3.4 Absolute Nucleated RBC 0.000 Nucleated RBC % (auto) 0.0 Sodium 142 Potassium 4.2 Chloride 107 Carbon Dioxide 25 Anion Gap 14 BUN 13 Creatinine 0.90 Estim Creat Clear Calc 140.3 Estimated GFR > 60 Random Glucose 113 Calcium 9.8 Total Bilirubin 0.6 AST 18 D ALT 25 Alkaline Phosphatase 73 Total Protein 7.2 Albumin 4.8 Medications Medications Current Medications Generic Name Dose Route Start Last Admin Trade Name Freq PRN Reason Stop Dose Admin Acetaminophen 650 mg 04/26/21 22:03 04/29/21 09:44 Acetaminophen 325 Mg Tablet PO 650 mg Q6H PRN Administration Headache/Pain Mild Scale (1-3) Al Hydroxide/Mg Hydroxide 30 ml 04/26/21 22:03 Magnesium Hydrox/Alum Hydrox 30 Ml Oral.Susp PO Q6H PRN Heartburn/Nausea Benztropine Mesylate 0.5 mg 04/26/21 22:03 Benztropine Mesylate 0.5 Mg Tablet PO TID PRN Extrapyramidal Effects Clonidine HCl 0.1 mg 05/16/21 21:00 05/22/21 21:05 Clonidine Hcl 0.1 Mg Tablet PO 0.1 mg BEDTIME HERON Administration Protocol Diphenhydramine HCl 50 mg 04/26/21 22:03 Diphenhydramine Hcl 25 Mg Tablet PO Q4H PRN agitation Haloperidol 5 mg 04/26/21 22:03 Haloperidol 5 Mg Tablet PO Q4H PRN agitation Hydroxyzine HCl 25 mg 04/26/21 22:03 05/20/21 21:37 Hydroxyzine Hcl 25 Mg Tablet PO 25 mg TID PRN Administration Anxiety Magnesium Hydroxide 30 ml 04/26/21 22:03 Milk Of Magnesia 30 Ml Oral.Susp PO DAILY PRN Constipation Nicotine 21 mg 04/26/21 22:03 Nicotine 21 Mg Patch.Td24 TRANSDERMA DAILY PRN nocotine cessation Nicotine Polacrilex 4 mg 04/26/21 22:03 Nicotine Polacrilex 2 Mg Gum BUCCAL Q2H PRN Nicotine Cravings Olanzapine 5 mg 04/27/21 14:16 Olanzapine 5 Mg Tablet PO BID PRN mild-moderate agitation Olanzapine 15 mg 05/09/21 21:00 05/22/21 21:06 Olanzapine 7.5 Mg Tablet PO 15 mg BEDTIME HERON Administration Olanzapine 15 mg 05/09/21 14:26 Olanzapine 10 Mg Vial IM DAILY PRN to be given if pt refuses pill per court order Paliperidone Palmitate 156 mg 05/13/21 09:00 05/13/21 10:45 Paliperidone Palmitate 156 Mg/Ml Syringe IM 156 mg Q30D HERON Administration Pharmacy Consult 1 each 04/26/21 18:33 Consult Rx Perform Med Rec MISCELLANE ONCE PRN Consult order Trazodone HCl 50 mg 04/26/21 22:03 Trazodone Hcl 50 Mg Tablet PO BEDTIME PRN Insomnia Allergies Allergies Allergy/AdvReac Type Severity Reaction Status Date / Time Penicillins [PCN] Allergy Unknown UNKNOWN Verified 10/05/20 19:44 Assessment & Plan Assessment & Plan (1) Schizophrenia: Qualifiers: Schizophrenia type: unspecified Qualified Code(s): F20.9 - Schizophrenia, unspecified Status: Acute Code(s): F20.9 - Schizophrenia, unspecified Assessment and Plan: 26 yo male, long history of schizophrenia, agitation, substance use, with a lapsed [facility] order presents after stopping meds (reported last meds 04/23/21) disorganized and needing extra support/care in modulation of mood, psychotic sx PLAN: Section VIII Continue Olanzapine 15 mg HS Invega Sustenna 156 mg monthly-next dosage 06/12/21. Clonidine 0.1 mg HS to address blood pressure elevations. [employer] Application for longer term hospitalization Encourage GED prep when pt has free time to assist him in structuring time, beginning to work toward his goals. Labs completed 05/22 are WNL. Greater than 50% of the session was spent on counseling and/or coordination of care Patient educated on: therapeutic strategies Informed Consent: further education needed Reason for contiued inpatient stay Substantial Risk for: harm to self, harm to others, inability to function and rapid decompensation
[2021-05-23 18:00] VITALS: BP 146/90; PULSE 68; TEMP 36.6
[2021-05-23 20:51] VITALS: BP 146/90; PULSE 68
[2021-05-23] MEDS: hydrOXYzine HCL 25 MG TABLET PO (20:51)
[2021-05-23] MEDS: cloNIDine HCL 0.1 MG TABLET PO (20:51)
[2021-05-23] MEDS: OLANZapine 7.5 MG TABLET 15 MG PO (20:51)
--- NOTE | 2021-05-24 15:33 | P.PNPSI_ITS ---
Subjective Subjective Date of Service: 05/24/21 Reason For Visit: Schizophrenia Subjective Notes: Section 8 Healthcare Proxy: No Guardianship: No Medical Problems Affecting Mental Status: No Interim History: Pt's case being reviewed by [facility] for longer term inpt care. Today, in bed for most of the day-out briefly to the nursing station for fluids. Accepting of medication and care. Team report pt is more visable and milieu involved during the evening time. Medication Compliance: Yes Side effects from medications: No Attending Groups: Intermittent Review of Systems Reports behavioral changes Psychiatric: Reports abnormal sleep pattern, Reports behavioral changes, Reports auditory hallucinations and Reports paranoia Mental Status Exam Mental Status Exam Patient Appearance: Disheveled Patient Orientation: Person, Place, Time and Situation Level of Consciousness: Drowsy and Alert Patient Behavior: Guarded, Suspicious, Sedated, Fatigued and Distractible Mood Description: Constricted Affect Description: Constricted Patient Cognition Impaired: Yes Ability to Follow Directions: Good Speech Pattern: Appropriate and Soft-Spoken Memory Description: Remote Impaired and Episodic Impaired Hallucinations: Auditory Delusions: Present Thought Content: positive for [place] and positive for Circumstantial Depressive Symptoms: Sleeping More Than Usual (cycle change-up more in the evening, night hours) and Low Self Esteem Judgement: Poor Diagnostics Vital Signs (24Hr): Vital Signs - 24 hr 05/23/21 18:00 05/23/21 20:51 Temperature 97.8 F Pulse Rate 68 68 Blood Pressure 146/90 H 146/90 H Body Mass Index 29.2 Labs Results: 05/22/21 14:56 05/22/21 14:56 Medications Medications Current Medications Generic Name Dose Route Start Last Admin Trade Name Freq PRN Reason Stop Dose Admin Acetaminophen 650 mg 04/26/21 22:03 04/29/21 09:44 Acetaminophen 325 Mg Tablet PO 650 mg Q6H PRN Administration Headache/Pain Mild Scale (1-3) Al Hydroxide/Mg Hydroxide 30 ml 04/26/21 22:03 Magnesium Hydrox/Alum Hydrox 30 Ml Oral.Susp PO Q6H PRN Heartburn/Nausea Benztropine Mesylate 0.5 mg 04/26/21 22:03 Benztropine Mesylate 0.5 Mg Tablet PO TID PRN Extrapyramidal Effects Clonidine HCl 0.1 mg 05/16/21 21:00 05/23/21 20:51 Clonidine Hcl 0.1 Mg Tablet PO 0.1 mg BEDTIME HERON Administration Protocol Diphenhydramine HCl 50 mg 04/26/21 22:03 Diphenhydramine Hcl 25 Mg Tablet PO Q4H PRN agitation Haloperidol 5 mg 04/26/21 22:03 Haloperidol 5 Mg Tablet PO Q4H PRN agitation Hydroxyzine HCl 25 mg 04/26/21 22:03 05/23/21 20:51 Hydroxyzine Hcl 25 Mg Tablet PO 25 mg TID PRN Administration Anxiety Magnesium Hydroxide 30 ml 04/26/21 22:03 Milk Of Magnesia 30 Ml Oral.Susp PO DAILY PRN Constipation Nicotine 21 mg 04/26/21 22:03 Nicotine 21 Mg Patch.Td24 TRANSDERMA DAILY PRN nocotine cessation Nicotine Polacrilex 4 mg 04/26/21 22:03 Nicotine Polacrilex 2 Mg Gum BUCCAL Q2H PRN Nicotine Cravings Olanzapine 5 mg 04/27/21 14:16 Olanzapine 5 Mg Tablet PO BID PRN mild-moderate agitation Olanzapine 15 mg 05/09/21 21:00 05/23/21 20:51 Olanzapine 7.5 Mg Tablet PO 15 mg BEDTIME HERON Administration Olanzapine 15 mg 05/09/21 14:26 Olanzapine 10 Mg Vial IM DAILY PRN to be given if pt refuses pill per court order Paliperidone Palmitate 156 mg 05/13/21 09:00 05/13/21 10:45 Paliperidone Palmitate 156 Mg/Ml Syringe IM 156 mg Q30D HERON Administration Pharmacy Consult 1 each 04/26/21 18:33 Consult Rx Perform Med Rec MISCELLANE ONCE PRN Consult order Trazodone HCl 50 mg 04/26/21 22:03 Trazodone Hcl 50 Mg Tablet PO BEDTIME PRN Insomnia Allergies Allergies Allergy/AdvReac Type Severity Reaction Status Date / Time Penicillins [PCN] Allergy Unknown UNKNOWN Verified 10/05/20 19:44 Assessment & Plan Assessment & Plan (1) Schizophrenia: Qualifiers: Schizophrenia type: unspecified Qualified Code(s): F20.9 - Schizophrenia, unspecified Status: Acute Code(s): F20.9 - Schizophrenia, unspecified Assessment and Plan: 26 yo male, long history of schizophrenia, agitation, substance use, with a lapsed Blane's order presents after stopping meds (reported last meds 04/23/21) disorganized and needing extra support/care in modulation of mood, psychotic sx PLAN: Section VIII Continue Olanzapine 15 mg HS Invega Sustenna 156 mg monthly-next dosage 06/12/21. Clonidine 0.1 mg HS to address blood pressure elevations. [employer] Application for longer term hospitalization Encourage GED prep when pt has free time to assist him in structuring time, beginning to work toward his goals. Labs completed 05/22 are WNL. Greater than 50% of the session was spent on counseling and/or coordination of care Reason for contiued inpatient stay Substantial Risk for: harm to self, inability to function and rapid decompensation
[2021-05-24 18:00] VITALS: BP 143/77; PULSE 67; TEMP 36.8
[2021-05-24 20:33] VITALS: BP 143/77; PULSE 67
[2021-05-24] MEDS: cloNIDine HCL 0.1 MG TABLET PO (20:33)
[2021-05-24] MEDS: OLANZapine 7.5 MG TABLET 15 MG PO (20:33)
[2021-05-25 17:10] VITALS: BP 118/70; PULSE 80; RESP 18; TEMP 36.4; O2SAT 97
--- NOTE | 2021-05-25 19:10 | HO.PSYCHPN ---
Subjective Subjective Date of Service: 05/25/21 Reason For Visit: Schizophrenia Interim History: Patient seen, chart reviewed, case discussed with nursing staff Patient lying in bed with eyes closed. He said ?No? to having any problems or complaints. Said that he was.?Fine? And did not want to talk. Mental Status Exam Mental Status Exam Narrative: Appearance: lying in bed, unkempt Patient Orientation: Person, Place, Time and Situation Level of Consciousness: Drowsy and Alert Patient Behavior: Guarded, minimally cooperative Mood Description: irritable Affect Description: Constricted Patient Cognition Impaired: Yes Ability to Follow Directions: Good Speech Pattern: Soft-Spoken Memory Description: Remote Impaired and Episodic Impaired Hallucinations: Auditory Delusions: Present Thought Content: positive for [place] Depressive Symptoms: Sleeping More Than Usual (cycle change-up more in the evening, night hours) and Low Self Esteem Judgment: Poor Diagnostics Vital Signs (24Hr): Vital Signs - 24 hr 05/24/21 20:33 05/25/21 17:10 Temperature 97.6 F Pulse Rate 67 80 Respiratory Rate 18 Blood Pressure 143/77 H 118/70 Pulse Oximetry 97 Body Mass Index 29.2 Labs Results: 05/22/21 14:56 05/22/21 14:56 Medications Medications Current Medications Generic Name Dose Route Start Last Admin Trade Name Freq PRN Reason Stop Dose Admin Acetaminophen 650 mg 04/26/21 22:03 04/29/21 09:44 Acetaminophen 325 Mg Tablet PO 650 mg Q6H PRN Administration Headache/Pain Mild Scale (1-3) Al Hydroxide/Mg Hydroxide 30 ml 04/26/21 22:03 Magnesium Hydrox/Alum Hydrox 30 Ml Oral.Susp PO Q6H PRN Heartburn/Nausea Benztropine Mesylate 0.5 mg 04/26/21 22:03 Benztropine Mesylate 0.5 Mg Tablet PO TID PRN Extrapyramidal Effects Clonidine HCl 0.1 mg 05/16/21 21:00 05/24/21 20:33 Clonidine Hcl 0.1 Mg Tablet PO 0.1 mg BEDTIME HERON Administration Protocol Diphenhydramine HCl 50 mg 04/26/21 22:03 Diphenhydramine Hcl 25 Mg Tablet PO Q4H PRN agitation Haloperidol 5 mg 04/26/21 22:03 Haloperidol 5 Mg Tablet PO Q4H PRN agitation Hydroxyzine HCl 25 mg 04/26/21 22:03 05/23/21 20:51 Hydroxyzine Hcl 25 Mg Tablet PO 25 mg TID PRN Administration Anxiety Magnesium Hydroxide 30 ml 04/26/21 22:03 Milk Of Magnesia 30 Ml Oral.Susp PO DAILY PRN Constipation Nicotine 21 mg 04/26/21 22:03 Nicotine 21 Mg Patch.Td24 TRANSDERMA DAILY PRN nocotine cessation Nicotine Polacrilex 4 mg 04/26/21 22:03 Nicotine Polacrilex 2 Mg Gum BUCCAL Q2H PRN Nicotine Cravings Olanzapine 5 mg 04/27/21 14:16 Olanzapine 5 Mg Tablet PO BID PRN mild-moderate agitation Olanzapine 15 mg 05/09/21 21:00 05/24/21 20:33 Olanzapine 7.5 Mg Tablet PO 15 mg BEDTIME HERON Administration Olanzapine 15 mg 05/09/21 14:26 Olanzapine 10 Mg Vial IM DAILY PRN to be given if pt refuses pill per court order Paliperidone Palmitate 156 mg 05/13/21 09:00 05/13/21 10:45 Paliperidone Palmitate 156 Mg/Ml Syringe IM 156 mg Q30D [facility] Administration Pharmacy Consult 1 each 04/26/21 18:33 Consult Rx Perform Med Rec MISCELLANE ONCE PRN Consult order Trazodone HCl 50 mg 04/26/21 22:03 Trazodone Hcl 50 Mg Tablet PO BEDTIME PRN Insomnia Allergies Allergies Allergy/AdvReac Type Severity Reaction Status Date / Time Penicillins [PCN] Allergy Unknown UNKNOWN Verified 10/05/20 19:44 Assessment & Plan Assessment & Plan (1) Schizophrenia: Qualifiers: Schizophrenia type: unspecified Qualified Code(s): F20.9 - Schizophrenia, unspecified Status: Acute Code(s): F20.9 - Schizophrenia, unspecified 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 Clonidine 0.1 mg HS to address blood pressure elevations. [employer] Application for longer term hospitalization Encourage GED prep when pt has free time to assist him in structuring time, beginning to work toward his goals. Labs completed 05/22 are WNL. Greater than 50% of the session was spent on counseling and/or coordination of care Reason for contiued inpatient stay Substantial Risk for: rapid decompensation
[2021-05-25 21:10] VITALS: BP 119/62; PULSE 59
[2021-05-25] MEDS: cloNIDine HCL 0.1 MG TABLET PO (21:10)
[2021-05-25] MEDS: OLANZapine 7.5 MG TABLET 15 MG PO (21:10)
--- NOTE | 2021-05-26 17:47 | P.PNPSI_ITS ---
Subjective Subjective Date of Service: 05/26/21 Reason For Visit: Schizophrenia Interim History: pt lying in bed, dressed, with pillow partially over head. He does not look at medical underwriter. He says he's fine and no that he does not need anything. did however attend group last night and got into conversation with peer saying he does not know why he's been diagnosed as schizophrenic Mental Status Exam Mental Status Exam Narrative: Appearance: lying in bed, unkempt Patient Orientation: Person, Place, Time and Situation Level of Consciousness: Drowsy and Alert Patient Behavior: Guarded, minimally cooperative Mood Description: irritable Affect Description: Constricted Patient Cognition Impaired: Yes Ability to Follow Directions: Good Speech Pattern: Soft-Spoken Memory Description: Remote Impaired and Episodic Impaired Hallucinations: Auditory present per hx Delusions: Present per hx Thought Content: [place] Depressive Symptoms: Sleeping More Than Usual (cycle change-up more in the evening, night hours) and Low Self Esteem Judgment: Poor Diagnostics Vital Signs (24Hr): Vital Signs - 24 hr 05/25/21 21:10 Pulse Rate 59 Blood Pressure 119/62 Body Mass Index 29.2 Labs Results: 05/22/21 14:56 05/22/21 14:56 Medications Medications Current Medications Generic Name Dose Route Start Last Admin Trade Name Freq PRN Reason Stop Dose Admin Acetaminophen 650 mg 04/26/21 22:03 04/29/21 09:44 Acetaminophen 325 Mg Tablet PO 650 mg Q6H PRN Administration Headache/Pain Mild Scale (1-3) Al Hydroxide/Mg Hydroxide 30 ml 04/26/21 22:03 Magnesium Hydrox/Alum Hydrox 30 Ml Oral.Susp PO Q6H PRN Heartburn/Nausea Benztropine Mesylate 0.5 mg 04/26/21 22:03 Benztropine Mesylate 0.5 Mg Tablet PO TID PRN Extrapyramidal Effects Clonidine HCl 0.1 mg 05/16/21 21:00 05/25/21 21:10 Clonidine Hcl 0.1 Mg Tablet PO 0.1 mg BEDTIME HERON Administration Protocol Diphenhydramine HCl 50 mg 04/26/21 22:03 Diphenhydramine Hcl 25 Mg Tablet PO Q4H PRN agitation Haloperidol 5 mg 04/26/21 22:03 Haloperidol 5 Mg Tablet PO Q4H PRN agitation Hydroxyzine HCl 25 mg 04/26/21 22:03 05/23/21 20:51 Hydroxyzine Hcl 25 Mg Tablet PO 25 mg TID PRN Administration Anxiety Magnesium Hydroxide 30 ml 04/26/21 22:03 Milk Of Magnesia 30 Ml Oral.Susp PO DAILY PRN Constipation Nicotine 21 mg 04/26/21 22:03 Nicotine 21 Mg Patch.Td24 TRANSDERMA DAILY PRN nocotine cessation Nicotine Polacrilex 4 mg 04/26/21 22:03 Nicotine Polacrilex 2 Mg Gum BUCCAL Q2H PRN Nicotine Cravings Olanzapine 5 mg 04/27/21 14:16 Olanzapine 5 Mg Tablet PO BID PRN mild-moderate agitation Olanzapine 15 mg 05/09/21 21:00 05/25/21 21:10 Olanzapine 7.5 Mg Tablet PO 15 mg BEDTIME HERON Administration Olanzapine 15 mg 05/09/21 14:26 Olanzapine 10 Mg Vial IM DAILY PRN to be given if pt refuses pill per court order Paliperidone Palmitate 156 mg 05/13/21 09:00 05/13/21 10:45 Paliperidone Palmitate 156 Mg/Ml Syringe IM 156 mg Q30D HERON Administration Pharmacy Consult 1 each 04/26/21 18:33 Consult Rx Perform Med Rec MISCELLANE ONCE PRN Consult order Trazodone HCl 50 mg 04/26/21 22:03 Trazodone Hcl 50 Mg Tablet PO BEDTIME PRN Insomnia Allergies Allergies Allergy/AdvReac Type Severity Reaction Status Date / Time Penicillins [PCN] Allergy Unknown UNKNOWN Verified 10/05/20 19:44 Assessment & Plan Assessment & Plan (1) Schizophrenia: Qualifiers: Schizophrenia type: unspecified Qualified Code(s): F20.9 - Schizophrenia, unspecified Status: Acute Code(s): F20.9 - Schizophrenia, unspecified 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 Clonidine 0.1 mg HS to address blood pressure elevations. [employer] Application for longer term hospitalization Encourage GED prep when pt has free time to assist him in structuring time, beginning to work toward his goals. Labs completed 05/22 are WNL. Greater than 50% of the session was spent on counseling and/or coordination of care Reason for contiued inpatient stay Substantial Risk for: rapid decompensation
[2021-05-26 20:35] VITALS: BP 99/61; PULSE 60; TEMP 36.5
[2021-05-26 20:47] VITALS: BP 99/61; PULSE 60
[2021-05-26] MEDS: cloNIDine HCL 0.1 MG TABLET PO (20:47)
[2021-05-26] MEDS: OLANZapine 7.5 MG TABLET 15 MG PO (20:48)
--- NOTE | 2021-05-27 14:30 | P.PNPSI_ITS ---
Subjective Subjective Date of Service: 05/27/21 Reason For Visit: Schizophrenia Subjective Notes: Section 8 Healthcare Proxy: No Guardianship: No Medical Problems Affecting Mental Status: No Interim History: Lon will meet with one of his out patient team members today to begin to discuss future planning. He presents as isolated, anergic during the day and seems to have more energy in the later afternoon and evening. He continues with anger toward tw and declines to meet due to civil commitment process, although is is processing his commitment well with other members of the team. As most recent IM was 05/13 pt may be beginning to experience medication efficacy. Will trial a decrease of Olanzapine to assist with daytime sx of anergy. Medication Compliance: Yes Side effects from medications: Yes (?anergy) Attending Groups: Intermittent Review of Systems Reports behavioral changes Psychiatric: Reports abnormal sleep pattern, Reports behavioral changes, Reports auditory hallucinations, Reports irritability and Reports paranoia Mental Status Exam Mental Status Exam Patient Appearance: Fatigued and Disheveled Patient Orientation: Person, Place, Time and Situation Level of Consciousness: Sedated Patient Behavior: Passive, Sedated, Avoidant, Fatigued, Isolative, Uncooperative and Poor Eye Contact Mood Description: Withdrawn Affect Description: Flat Patient Cognition Impaired: Yes Ability to Follow Directions: Fair Speech Pattern: Spontaneous Speech, Coherent and Soft-Spoken Memory Description: Episodic Impaired Hallucinations: Auditory Delusions: Present Thought Process: Distracted Thought Content: positive for Circumstantial and positive for [place] Depressive Symptoms: Diff. Making Decisions, Sleeping More Than Usual and Increased Fatigue Judgement: Poor Diagnostics Vital Signs (24Hr): Vital Signs - 24 hr 05/26/21 20:35 05/26/21 20:47 Temperature 97.7 F Pulse Rate 60 60 Blood Pressure 99/61 99/61 Body Mass Index 29.2 Labs Results: 05/22/21 14:56 05/22/21 14:56 Medications Medications Current Medications Generic Name Dose Route Start Last Admin Trade Name Freq PRN Reason Stop Dose Admin Acetaminophen 650 mg 04/26/21 22:03 04/29/21 09:44 Acetaminophen 325 Mg Tablet PO 650 mg Q6H PRN Administration Headache/Pain Mild Scale (1-3) Al Hydroxide/Mg Hydroxide 30 ml 04/26/21 22:03 Magnesium Hydrox/Alum Hydrox 30 Ml Oral.Susp PO Q6H PRN Heartburn/Nausea Benztropine Mesylate 0.5 mg 04/26/21 22:03 Benztropine Mesylate 0.5 Mg Tablet PO TID PRN Extrapyramidal Effects Clonidine HCl 0.1 mg 05/16/21 21:00 05/26/21 20:47 Clonidine Hcl 0.1 Mg Tablet PO 0.1 mg BEDTIME HERON Administration Protocol Diphenhydramine HCl 50 mg 04/26/21 22:03 Diphenhydramine Hcl 25 Mg Tablet PO Q4H PRN agitation Haloperidol 5 mg 04/26/21 22:03 Haloperidol 5 Mg Tablet PO Q4H PRN agitation Hydroxyzine HCl 25 mg 04/26/21 22:03 05/23/21 20:51 Hydroxyzine Hcl 25 Mg Tablet PO 25 mg TID PRN Administration Anxiety Magnesium Hydroxide 30 ml 04/26/21 22:03 Milk Of Magnesia 30 Ml Oral.Susp PO DAILY PRN Constipation Nicotine 21 mg 04/26/21 22:03 Nicotine 21 Mg Patch.Td24 TRANSDERMA DAILY PRN nocotine cessation Nicotine Polacrilex 4 mg 04/26/21 22:03 Nicotine Polacrilex 2 Mg Gum BUCCAL Q2H PRN Nicotine Cravings Olanzapine 5 mg 04/27/21 14:16 Olanzapine 5 Mg Tablet PO BID PRN mild-moderate agitation Olanzapine 15 mg 05/09/21 21:00 05/26/21 20:48 Olanzapine 7.5 Mg Tablet PO 15 mg BEDTIME HERON Administration Olanzapine 15 mg 05/09/21 14:26 Olanzapine 10 Mg Vial IM DAILY PRN to be given if pt refuses pill per court order Paliperidone Palmitate 156 mg 05/13/21 09:00 05/13/21 10:45 Paliperidone Palmitate 156 Mg/Ml Syringe IM 156 mg Q30D [facility] Administration Pharmacy Consult 1 each 04/26/21 18:33 Consult Rx Perform Med Rec MISCELLANE ONCE PRN Consult order Trazodone HCl 50 mg 04/26/21 22:03 Trazodone Hcl 50 Mg Tablet PO BEDTIME PRN Insomnia Allergies Allergies Allergy/AdvReac Type Severity Reaction Status Date / Time Penicillins [PCN] Allergy Unknown UNKNOWN Verified 10/05/20 19:44 Assessment & Plan Assessment & Plan (1) Schizophrenia: Qualifiers: Schizophrenia type: unspecified Qualified Code(s): F20.9 - Schizophrenia, unspecified Status: Acute Code(s): F20.9 - Schizophrenia, unspecified Assessment and Plan: 26 yo male, long history of schizophrenia, agitation, substance use, with a lapsed Blane's order presents after stopping meds (reported last meds 04/23/21) disorganized and needing extra support/care in modulation of mood, psychotic sx PLAN: Section VIII Decrease Olanzapine 10 mg HS due to daytime sedation Invega Sustenna 156 mg monthly-next dosage 06/12/21. Clonidine 0.1 mg HS to address blood pressure elevations. [employer] Application for longer term hospitalization pending Encourage GED prep when pt has free time to assist him in structuring time, b eginning to work toward his goals. Labs completed 05/22 are WNL. Greater than 50% of the session was spent on counseling and/or coordination of care Reason for contiued inpatient stay Substantial Risk for: harm to self, harm to others, inability to function and rapid decompensation
[2021-05-27 18:00] VITALS: BP 129/82; PULSE 86; TEMP 37.1
[2021-05-27 20:32] VITALS: BP 129/82; PULSE 86
[2021-05-27] MEDS: cloNIDine HCL 0.1 MG TABLET PO (20:32)
[2021-05-27] MEDS: OLANZapine 10 MG TABLET PO (20:34)
--- NOTE | 2021-05-28 14:24 | HO.PSYCHPN ---
Subjective Subjective Date of Service: 05/28/21 Reason For Visit: Schizophrenia Subjective Notes: Section 8 Healthcare Proxy: No Guardianship: No Medical Problems Affecting Mental Status: No Interim History: Pt out in milieu with team and peers. Team is challenging him to work on GED preparation workbook and offering re-enforcement. Appears alert, no observed response to internal stimuli- more attentive to environment, peers, joining group discussions and activities Medication Compliance: Yes Side effects from medications: No Attending Groups: Intermittent Review of Systems Reports behavioral changes Psychiatric: Reports abnormal sleep pattern (sleeps nights and most of the day- olanzapine decreased), Reports behavioral changes, Reports irritability and Reports paranoia Mental Status Exam Mental Status Exam Patient Appearance: Appropriate Patient Orientation: Person, Place, Time and Situation Level of Consciousness: Alert Patient Behavior: Appropriate Mood Description: Calm and Constricted Affect Description: Constricted Patient Cognition Impaired: No Ability to Follow Directions: Fair Speech Pattern: Spontaneous Speech Memory Description: Remote Impaired and Episodic Impaired Hallucinations: Auditory Delusions: Present Thought Process: Distracted Thought Content: positive for [place], positive for Circumstantial and positive for Thought Blocking Depressive Symptoms: Sleeping More Than Usual and Low Self Esteem Judgement: Fair Diagnostics Vital Signs (24Hr): Vital Signs - 24 hr 05/27/21 18:00 05/27/21 20:32 Temperature 98.8 F Pulse Rate 86 86 Blood Pressure 129/82 129/82 Body Mass Index 29.2 Labs Results: 05/22/21 14:56 05/22/21 14:56 Medications Medications Current Medications Generic Name Dose Route Start Last Admin Trade Name Freq PRN Reason Stop Dose Admin Acetaminophen 650 mg 04/26/21 22:03 04/29/21 09:44 Acetaminophen 325 Mg Tablet PO 650 mg Q6H PRN Administration Headache/Pain Mild Scale (1-3) Al Hydroxide/Mg Hydroxide 30 ml 04/26/21 22:03 Magnesium Hydrox/Alum Hydrox 30 Ml Oral.Susp PO Q6H PRN Heartburn/Nausea Benztropine Mesylate 0.5 mg 04/26/21 22:03 Benztropine Mesylate 0.5 Mg Tablet PO TID PRN Extrapyramidal Effects Clonidine HCl 0.1 mg 05/16/21 21:00 05/27/21 20:32 Clonidine Hcl 0.1 Mg Tablet PO 0.1 mg BEDTIME HERON Administration Protocol Diphenhydramine HCl 50 mg 04/26/21 22:03 Diphenhydramine Hcl 25 Mg Tablet PO Q4H PRN agitation Haloperidol 5 mg 04/26/21 22:03 Haloperidol 5 Mg Tablet PO Q4H PRN agitation Hydroxyzine HCl 25 mg 04/26/21 22:03 05/23/21 20:51 Hydroxyzine Hcl 25 Mg Tablet PO 25 mg TID PRN Administration Anxiety Magnesium Hydroxide 30 ml 04/26/21 22:03 Milk Of Magnesia 30 Ml Oral.Susp PO DAILY PRN Constipation Nicotine 21 mg 04/26/21 22:03 Nicotine 21 Mg Patch.Td24 TRANSDERMA DAILY PRN nocotine cessation Nicotine Polacrilex 4 mg 04/26/21 22:03 Nicotine Polacrilex 2 Mg Gum BUCCAL Q2H PRN Nicotine Cravings Olanzapine 5 mg 04/27/21 14:16 Olanzapine 5 Mg Tablet PO BID PRN mild-moderate agitation Olanzapine 10 mg 05/27/21 14:44 Olanzapine 10 Mg Vial IM DAILY PRN to be given if pt refuses pill per court order Olanzapine 10 mg 05/27/21 21:00 05/27/21 20:34 Olanzapine 10 Mg Tablet PO 10 mg BEDTIME HERON Administration Paliperidone Palmitate 156 mg 05/13/21 09:00 05/13/21 10:45 Paliperidone Palmitate 156 Mg/Ml Syringe IM 156 mg Q30D [facility] Administration Pharmacy Consult 1 each 04/26/21 18:33 Consult Rx Perform Med Rec MISCELLANE ONCE PRN Consult order Trazodone HCl 50 mg 04/26/21 22:03 Trazodone Hcl 50 Mg Tablet PO BEDTIME PRN Insomnia Allergies Allergies Allergy/AdvReac Type Severity Reaction Status Date / Time Penicillins [PCN] Allergy Unknown UNKNOWN Verified 10/05/20 19:44 Assessment & Plan Assessment & Plan (1) Schizophrenia: Qualifiers: Schizophrenia type: unspecified Qualified Code(s): F20.9 - Schizophrenia, unspecified Status: Acute Code(s): F20.9 - Schizophrenia, unspecified Assessment and Plan: 26 yo male, long history of schizophrenia, agitation, substance use, with a lapsed Blane's order presents after stopping meds (reported last meds 04/23/21) disorganized and needing extra support/care in modulation of mood, psychotic sx PLAN: [employer] Decrease Olanzapine 10 mg HS due to daytime sedation Invega Sustenna 156 mg monthly-next dosage 06/12/21. Clonidine 0.1 mg HS to address blood pressure elevations. [employer] Application for longer term hospitalization pending Encourage GED prep when pt has free time to assist him in structuring time, beginning to work toward his goals. Labs completed 05/22 are WNL. Greater than 50% of the session was spent on counseling and/or coordination of care Reason for contiued inpatient stay Substantial Risk for: harm to self, harm to others, inability to function and rapid decompensation
[2021-05-28 18:00] VITALS: BP 130/73; PULSE 67; TEMP 36.8; O2SAT 99
[2021-05-28] MEDS: OLANZapine 10 MG TABLET PO (20:48)
[2021-05-28 20:49] VITALS: BP 133/80; PULSE 66
[2021-05-28] MEDS: cloNIDine HCL 0.1 MG TABLET PO (20:49)
--- NOTE | 2021-05-29 12:41 | HO.PSYCHPN ---
Subjective Subjective Date of Service: 05/29/21 Reason For Visit: Schizophrenia Subjective Notes: Section 8 Healthcare Proxy: No Guardianship: No Medical Problems Affecting Mental Status: No Interim History: Active in milieu later in the afternoon. Appears more attentive to his environment and environmental cues. Well engaged with peers-focusing on group conversations and joining these. Appears alert, attentive, engaged. Medication Compliance: Yes Side effects from medications: No Attending Groups: Yes Review of Systems Reports behavioral changes Psychiatric: Reports abnormal sleep pattern (? cycle reversal), Reports behavioral changes, Reports difficulty concentrating, Reports auditory hallucinations, Reports irritability and Reports paranoia Mental Status Exam Mental Status Exam Patient Appearance: Appropriate Patient Orientation: Person, Place, Time and Situation Level of Consciousness: Alert Patient Behavior: Appropriate, Guarded, Talkative, Cooperative, Suspicious, Resistive to Care, Avoidant, Distractible, Isolative, Good Eye Contact and Poor Eye Contact Mood Description: Withdrawn (with clear attempts to connect with peers) and Constricted Affect Description: Constricted Patient Cognition Impaired: Yes Ability to Follow Directions: Good Speech Pattern: Spontaneous Speech, Soft-Spoken and Long Pauses Memory Description: Remote Impaired and Episodic Impaired Hallucinations: Auditory Delusions: Present Thought Process: Distracted Thought Content: positive for [place], positive for Circumstantial, positive for Thought Blocking and positive for Suicidal Ideation (no) Depressive Symptoms: Sleeping More Than Usual and Difficulty Concentrating Judgement: Fair Diagnostics Vital Signs (24Hr): Vital Signs - 24 hr 05/28/21 18:00 05/28/21 20:49 Temperature 98.2 F Pulse Rate 67 66 Blood Pressure 130/73 133/80 Pulse Oximetry 99 Body Mass Index 29.2 Labs Results: 05/22/21 14:56 05/22/21 14:56 Medications Medications Current Medications Generic Name Dose Route Start Last Admin Trade Name Freq PRN Reason Stop Dose Admin Acetaminophen 650 mg 04/26/21 22:03 04/29/21 09:44 Acetaminophen 325 Mg Tablet PO 650 mg Q6H PRN Administration Headache/Pain Mild Scale (1-3) Al Hydroxide/Mg Hydroxide 30 ml 04/26/21 22:03 Magnesium Hydrox/Alum Hydrox 30 Ml Oral.Susp PO Q6H PRN Heartburn/Nausea Benztropine Mesylate 0.5 mg 04/26/21 22:03 Benztropine Mesylate 0.5 Mg Tablet PO TID PRN Extrapyramidal Effects Clonidine HCl 0.1 mg 05/16/21 21:00 05/28/21 20:49 Clonidine Hcl 0.1 Mg Tablet PO 0.1 mg BEDTIME HERON Administration Protocol Diphenhydramine HCl 50 mg 04/26/21 22:03 Diphenhydramine Hcl 25 Mg Tablet PO Q4H PRN agitation Haloperidol 5 mg 04/26/21 22:03 Haloperidol 5 Mg Tablet PO Q4H PRN agitation Hydroxyzine HCl 25 mg 04/26/21 22:03 05/23/21 20:51 Hydroxyzine Hcl 25 Mg Tablet PO 25 mg TID PRN Administration Anxiety Magnesium Hydroxide 30 ml 04/26/21 22:03 Milk Of Magnesia 30 Ml Oral.Susp PO DAILY PRN Constipation Nicotine 21 mg 04/26/21 22:03 Nicotine 21 Mg Patch.Td24 TRANSDERMA DAILY PRN nocotine cessation Nicotine Polacrilex 4 mg 04/26/21 22:03 Nicotine Polacrilex 2 Mg Gum BUCCAL Q2H PRN Nicotine Cravings Olanzapine 5 mg 04/27/21 14:16 Olanzapine 5 Mg Tablet PO BID PRN mild-moderate agitation Olanzapine 10 mg 05/27/21 14:44 Olanzapine 10 Mg Vial IM DAILY PRN to be given if pt refuses pill per court order Olanzapine 10 mg 05/27/21 21:00 05/28/21 20:48 Olanzapine 10 Mg Tablet PO 10 mg BEDTIME HERON Administration Paliperidone Palmitate 156 mg 05/13/21 09:00 05/13/21 10:45 Paliperidone Palmitate 156 Mg/Ml Syringe IM 156 mg Q30D [facility] Administration Pharmacy Consult 1 each 04/26/21 18:33 Consult Rx Perform Med Rec MISCELLANE ONCE PRN Consult order Trazodone HCl 50 mg 04/26/21 22:03 Trazodone Hcl 50 Mg Tablet PO BEDTIME PRN Insomnia Allergies Allergies Allergy/AdvReac Type Severity Reaction Status Date / Time Penicillins [PCN] Allergy Unknown UNKNOWN Verified 10/05/20 19:44 Assessment & Plan Assessment & Plan (1) Schizophrenia: Qualifiers: Schizophrenia type: unspecified Qualified Code(s): F20.9 - Schizophrenia, unspecified Status: Acute Code(s): F20.9 - Schizophrenia, unspecified Assessment and Plan: 26 yo male, long history of schizophrenia, agitation, substance use, with a lapsed [facility] order presents after stopping meds (reported last meds 04/23/21) disorganized and needing extra support/care in modulation of mood, psychotic sx PLAN: Section VIII Decrease Olanzapine 10 mg HS due to daytime sedation Invega Sustenna 156 mg monthly-next dosage 06/12/21. Clonidine 0.1 mg HS to address blood pressure elevations. [facility] Application for longer term hospitalization pending Encourage GED prep when pt has free time to assist him in structuring time, beginning to work toward his goals. Labs completed 05/22 are WNL. Greater than 50% of the session was spent on counseling and/or coordination of care Reason for contiued inpatient stay Substantial Risk for: harm to self, harm to others, inability to function and rapid decompensation
[2021-05-29 18:00] VITALS: BP 125/59; PULSE 73; RESP 18; TEMP 36.4; O2SAT 96
[2021-05-29 20:54] VITALS: BP 131/59; PULSE 77
[2021-05-29] MEDS: OLANZapine 10 MG TABLET PO (20:54)
[2021-05-29] MEDS: cloNIDine HCL 0.1 MG TABLET PO (20:54)
--- NOTE | 2021-05-30 17:08 | HO.PSYCHPN ---
Subjective Subjective Date of Service: 05/30/21 Reason For Visit: Schizophrenia Subjective Notes: Section 8 Healthcare Proxy: No Guardianship: No Medical Problems Affecting Mental Status: No Interim History: Sleep cycle reversal continues. Adjusting Olanzapine to assist pt in re-establishment of his cycle. Medication Compliance: Yes Side effects from medications: No Attending Groups: Intermittent Review of Systems Reports behavioral changes Psychiatric: Reports abnormal sleep pattern, Reports behavioral changes, Reports difficulty concentrating, Reports auditory hallucinations, Reports irritability and Reports paranoia Mental Status Exam Mental Status Exam Patient Appearance: Appropriate Patient Orientation: Person, Place, Time and Situation Level of Consciousness: Alert Patient Behavior: Guarded, Cooperative, Suspicious, Resistive to Care, Avoidant and Distractible Mood Description: Constricted Affect Description: Constricted Patient Cognition Impaired: Yes Ability to Follow Directions: Fair Speech Pattern: Spontaneous Speech Memory Description: Episodic Impaired Hallucinations: Auditory Delusions: Paranoid Ideation and Present Thought Process: Illogical and Distracted Thought Content: positive for Circumstantial, positive for Perseveration, positive for Thought Blocking and positive for Suicidal Ideation (denies) Depressive Symptoms: Increased Anxiety, Diff. Making Decisions, Increased Irritability, Sleeping More Than Usual and Low Self Esteem Judgement: Poor Diagnostics Vital Signs (24Hr): Vital Signs - 24 hr 05/29/21 18:00 05/29/21 20:54 Temperature 97.6 F Pulse Rate 73 77 Respiratory Rate 18 Blood Pressure 125/59 L 131/59 L Pulse Oximetry 96 Body Mass Index 29.2 Labs Results: 05/22/21 14:56 05/22/21 14:56 Medications Medications Current Medications Generic Name Dose Route Start Last Admin Trade Name Freq PRN Reason Stop Dose Admin Acetaminophen 650 mg 04/26/21 22:03 04/29/21 09:44 Acetaminophen 325 Mg Tablet PO 650 mg Q6H PRN Administration Headache/Pain Mild Scale (1-3) Al Hydroxide/Mg Hydroxide 30 ml 04/26/21 22:03 Magnesium Hydrox/Alum Hydrox 30 Ml Oral.Susp PO Q6H PRN Heartburn/Nausea Benztropine Mesylate 0.5 mg 04/26/21 22:03 Benztropine Mesylate 0.5 Mg Tablet PO TID PRN Extrapyramidal Effects Clonidine HCl 0.1 mg 05/16/21 21:00 05/29/21 20:54 Clonidine Hcl 0.1 Mg Tablet PO 0.1 mg BEDTIME HERON Administration Protocol Diphenhydramine HCl 50 mg 04/26/21 22:03 Diphenhydramine Hcl 25 Mg Tablet PO Q4H PRN agitation Haloperidol 5 mg 04/26/21 22:03 Haloperidol 5 Mg Tablet PO Q4H PRN agitation Hydroxyzine HCl 25 mg 04/26/21 22:03 05/23/21 20:51 Hydroxyzine Hcl 25 Mg Tablet PO 25 mg TID PRN Administration Anxiety Magnesium Hydroxide 30 ml 04/26/21 22:03 Milk Of Magnesia 30 Ml Oral.Susp PO DAILY PRN Constipation Nicotine 21 mg 04/26/21 22:03 Nicotine 21 Mg Patch.Td24 TRANSDERMA DAILY PRN nocotine cessation Nicotine Polacrilex 4 mg 04/26/21 22:03 Nicotine Polacrilex 2 Mg Gum BUCCAL Q2H PRN Nicotine Cravings Olanzapine 5 mg 04/27/21 14:16 Olanzapine 5 Mg Tablet PO BID PRN mild-moderate agitation Olanzapine 10 mg 05/27/21 14:44 Olanzapine 10 Mg Vial IM DAILY PRN to be given if pt refuses pill per court order Olanzapine 5 mg 05/30/21 21:00 Olanzapine 5 Mg Tablet PO BEDTIME HERON Paliperidone Palmitate 156 mg 05/13/21 09:00 05/13/21 10:45 Paliperidone Palmitate 156 Mg/Ml Syringe IM 156 mg Q30D [facility] Administration Pharmacy Consult 1 each 04/26/21 18:33 Consult Rx Perform Med Rec MISCELLANE ONCE PRN Consult order Trazodone HCl 50 mg 04/26/21 22:03 Trazodone Hcl 50 Mg Tablet PO BEDTIME PRN Insomnia Allergies Allergies Allergy/AdvReac Type Severity Reaction Status Date / Time Penicillins [PCN] Allergy Unknown UNKNOWN Verified 10/05/20 19:44 Assessment & Plan Assessment & Plan (1) Schizophrenia: Qualifiers: Schizophrenia type: unspecified Qualified Code(s): F20.9 - Schizophrenia, unspecified Status: Acute Code(s): F20.9 - Schizophrenia, unspecified Assessment and Plan: 26 yo male, long history of schizophrenia, agitation, substance use, with a lapsed [facility] order presents after stopping meds (reported last meds 04/23/21) disorganized and needing extra support/care in modulation of mood, psychotic sx PLAN: Section VIII Decrease Olanzapine to 5 mg HS due to daytime sedation Invega Sustenna 156 mg monthly-next dosage 06/12/21. Clonidine 0.1 mg HS to address blood pressure elevations. [facility] Application for longer term hospitalization pending Encourage GED prep when pt has free time to assist him in structuring time, beginning to work toward his goals. Labs completed 05/22 are WNL. Greater than 50% of the session was spent on counseling and/or coordination of care Reason for contiued inpatient stay Substantial Risk for: harm to self, harm to others, inability to function and rapid decompensation
[2021-05-30 18:00] VITALS: BP 125/61; PULSE 65; TEMP 36.7
[2021-05-30 21:10] VITALS: BP 125/61; PULSE 65
[2021-05-30] MEDS: cloNIDine HCL 0.1 MG TABLET PO (21:10)
[2021-05-30] MEDS: OLANZapine 5 MG TABLET PO (21:10)
[2021-05-31 18:00] VITALS: BP 121/75; PULSE 70; TEMP 36.8
--- NOTE | 2021-05-31 18:21 | P.PNPSI_ITS ---
Subjective Subjective Date of Service: 05/31/21 Reason For Visit: Schizophrenia Subjective Notes: Section 8 Healthcare Proxy: No Guardianship: No Medical Problems Affecting Mental Status: No Interim History: Pt anticipating father's visit over the weekend. Alert, involved in [facility], Improved. Medication Compliance: Yes Side effects from medications: No Attending Groups: Yes Review of Systems Reports behavioral changes Psychiatric: Reports behavioral changes Mental Status Exam Mental Status Exam Patient Appearance: Appropriate Patient Orientation: Person, Place, Time and Situation Level of Consciousness: Alert Patient Behavior: Appropriate Mood Description: Constricted Affect Description: Constricted Patient Cognition Impaired: Yes Ability to Follow Directions: Good Speech Pattern: Spontaneous Speech Memory Description: Intact Hallucinations: Auditory Delusions: Not Present Thought Process: Goal Oriented Thought Content: positive for Goal Oriented Depressive Symptoms: Difficulty Concentrating Judgement: Fair Diagnostics Vital Signs (24Hr): Vital Signs - 24 hr 05/30/21 21:10 Pulse Rate 65 Blood Pressure 125/61 Body Mass Index 29.2 Labs Results: 05/22/21 14:56 05/22/21 14:56 Medications Medications Current Medications Generic Name Dose Route Start Last Admin Trade Name Freq PRN Reason Stop Dose Admin Acetaminophen 650 mg 04/26/21 22:03 04/29/21 09:44 Acetaminophen 325 Mg Tablet PO 650 mg Q6H PRN Administration Headache/Pain Mild Scale (1-3) Al Hydroxide/Mg Hydroxide 30 ml 04/26/21 22:03 Magnesium Hydrox/Alum Hydrox 30 Ml Oral.Susp PO Q6H PRN Heartburn/Nausea Benztropine Mesylate 0.5 mg 04/26/21 22:03 Benztropine Mesylate 0.5 Mg Tablet PO TID PRN Extrapyramidal Effects Clonidine HCl 0.1 mg 05/16/21 21:00 05/30/21 21:10 Clonidine Hcl 0.1 Mg Tablet PO 0.1 mg BEDTIME HERON Administration Protocol Diphenhydramine HCl 50 mg 04/26/21 22:03 Diphenhydramine Hcl 25 Mg Tablet PO Q4H PRN agitation Haloperidol 5 mg 04/26/21 22:03 Haloperidol 5 Mg Tablet PO Q4H PRN agitation Hydroxyzine HCl 25 mg 04/26/21 22:03 05/23/21 20:51 Hydroxyzine Hcl 25 Mg Tablet PO 25 mg TID PRN Administration Anxiety Magnesium Hydroxide 30 ml 04/26/21 22:03 Milk Of Magnesia 30 Ml Oral.Susp PO DAILY PRN Constipation Nicotine 21 mg 04/26/21 22:03 Nicotine 21 Mg Patch.Td24 TRANSDERMA DAILY PRN nocotine cessation Nicotine Polacrilex 4 mg 04/26/21 22:03 Nicotine Polacrilex 2 Mg Gum BUCCAL Q2H PRN Nicotine Cravings Olanzapine 5 mg 04/27/21 14:16 Olanzapine 5 Mg Tablet PO BID PRN mild-moderate agitation Olanzapine 10 mg 05/27/21 14:44 Olanzapine 10 Mg Vial IM DAILY PRN to be given if pt refuses pill per court order Olanzapine 5 mg 05/30/21 21:00 05/30/21 21:10 Olanzapine 5 Mg Tablet PO 5 mg BEDTIME HERON Administration Paliperidone Palmitate 156 mg 05/13/21 09:00 05/13/21 10:45 Paliperidone Palmitate 156 Mg/Ml Syringe IM 156 mg Q30D [facility] Administration Pharmacy Consult 1 each 04/26/21 18:33 Consult Rx Perform Med Rec MISCELLANE ONCE PRN Consult order Trazodone HCl 50 mg 04/26/21 22:03 Trazodone Hcl 50 Mg Tablet PO BEDTIME PRN Insomnia Allergies Allergies Allergy/AdvReac Type Severity Reaction Status Date / Time Penicillins [PCN] Allergy Unknown UNKNOWN Verified 10/05/20 19:44 Assessment & Plan Assessment & Plan (1) Schizophrenia: Qualifiers: Schizophrenia type: unspecified Qualified Code(s): F20.9 - Schizophrenia, unspecified Status: Acute Code(s): F20.9 - Schizophrenia, unspecified Assessment and Plan: 26 yo male, long history of schizophrenia, agitation, substance use, [facility] presents after stopping meds (reported last meds 04/23/21) disorganized and needing extra support/care in modulation of mood, psychotic sx PLAN: Section VIII Continue Olanzapine at 5 mg HS due to daytime sedation Invega Sustenna 156 mg monthly-next dosage 06/12/21. Clonidine 0.1 mg HS to address blood pressure elevations. [facility] Application for longer term hospitalization pending Encourage GED prep when pt has free time to assist him in structuring time, beginning to work toward his goals. Labs completed 05/22 are WNL. Greater than 50% of the session was spent on counseling and/or coordination of care Reason for contiued inpatient stay Substantial Risk for: harm to self, harm to others, inability to function and rapid decompensation
[2021-05-31 20:43] VITALS: BP 121/75; PULSE 70
[2021-05-31] MEDS: cloNIDine HCL 0.1 MG TABLET PO (20:43)
[2021-05-31] MEDS: OLANZapine 5 MG TABLET PO (20:43)
[2021-05-31] MEDS: hydrOXYzine HCL 25 MG TABLET PO (21:11)
--- NOTE | 2021-06-01 17:28 | HO.PSYCHPN ---
Subjective Subjective Date of Service: 06/01/21 Reason For Visit: Schizophrenia Subjective Notes: Section 8 Healthcare Proxy: No Guardianship: No Medical Problems Affecting Mental Status: No Interim History: Appears more awake aware alert today. Interactive with staff and peers. Father scheduled to visit. Medication Compliance: Yes Side effects from medications: No Attending Groups: Yes Review of Systems Psychiatric: Reports auditory hallucinations and Reports paranoia Mental Status Exam Mental Status Exam Patient Appearance: Appropriate Patient Orientation: Person, Place, Time and Situation Level of Consciousness: Alert Patient Behavior: Appropriate, Guarded and Cooperative Mood Description: Constricted Affect Description: Constricted Patient Cognition Impaired: Yes Ability to Follow Directions: Good Speech Pattern: Spontaneous Speech Memory Description: Remote Impaired and Episodic Impaired Hallucinations: Auditory Delusions: Paranoid Ideation Thought Process: Distracted Thought Content: positive for Thought Blocking Depressive Symptoms: Diff. Making Decisions and Low Self Esteem Judgement: Fair Diagnostics Vital Signs (24Hr): Vital Signs - 24 hr 05/31/21 18:00 05/31/21 20:43 Temperature 98.3 F Pulse Rate 70 70 Blood Pressure 121/75 121/75 Body Mass Index 29.2 Labs Results: 05/22/21 14:56 05/22/21 14:56 Medications Medications Current Medications Generic Name Dose Route Start Last Admin Trade Name Freq PRN Reason Stop Dose Admin Acetaminophen 650 mg 04/26/21 22:03 04/29/21 09:44 Acetaminophen 325 Mg Tablet PO 650 mg Q6H PRN Administration Headache/Pain Mild Scale (1-3) Al Hydroxide/Mg Hydroxide 30 ml 04/26/21 22:03 Magnesium Hydrox/Alum Hydrox 30 Ml Oral.Susp PO Q6H PRN Heartburn/Nausea Benztropine Mesylate 0.5 mg 04/26/21 22:03 Benztropine Mesylate 0.5 Mg Tablet PO TID PRN Extrapyramidal Effects Clonidine HCl 0.1 mg 05/16/21 21:00 05/31/21 20:43 Clonidine Hcl 0.1 Mg Tablet PO 0.1 mg BEDTIME HERON Administration Protocol Diphenhydramine HCl 50 mg 04/26/21 22:03 Diphenhydramine Hcl 25 Mg Tablet PO Q4H PRN agitation Haloperidol 5 mg 04/26/21 22:03 Haloperidol 5 Mg Tablet PO Q4H PRN agitation Hydroxyzine HCl 25 mg 04/26/21 22:03 05/31/21 21:11 Hydroxyzine Hcl 25 Mg Tablet PO 25 mg TID PRN Administration Anxiety Magnesium Hydroxide 30 ml 04/26/21 22:03 Milk Of Magnesia 30 Ml Oral.Susp PO DAILY PRN Constipation Nicotine 21 mg 04/26/21 22:03 Nicotine 21 Mg Patch.Td24 TRANSDERMA DAILY PRN nocotine cessation Nicotine Polacrilex 4 mg 04/26/21 22:03 Nicotine Polacrilex 2 Mg Gum BUCCAL Q2H PRN Nicotine Cravings Olanzapine 5 mg 04/27/21 14:16 Olanzapine 5 Mg Tablet PO BID PRN mild-moderate agitation Olanzapine 10 mg 05/27/21 14:44 Olanzapine 10 Mg Vial IM DAILY PRN to be given if pt refuses pill per court order Olanzapine 5 mg 05/30/21 21:00 05/31/21 20:43 Olanzapine 5 Mg Tablet PO 5 mg BEDTIME HERON Administration Paliperidone Palmitate 156 mg 05/13/21 09:00 05/13/21 10:45 Paliperidone Palmitate 156 Mg/Ml Syringe IM 156 mg Q30D [facility] Administration Pharmacy Consult 1 each 04/26/21 18:33 Consult Rx Perform Med Rec MISCELLANE ONCE PRN Consult order Trazodone HCl 50 mg 04/26/21 22:03 Trazodone Hcl 50 Mg Tablet PO BEDTIME PRN Insomnia Allergies Allergies Allergy/AdvReac Type Severity Reaction Status Date / Time Penicillins [PCN] Allergy Unknown UNKNOWN Verified 10/05/20 19:44 Assessment & Plan Assessment & Plan (1) Schizophrenia: Qualifiers: Schizophrenia type: unspecified Qualified Code(s): F20.9 - Schizophrenia, unspecified Status: Acute Code(s): F20.9 - Schizophrenia, unspecified Assessment and Plan: 26 yo male, long history of schizophrenia, agitation, substance use, with a lapsed [facility] order presents after stopping meds (reported last meds 04/23/21) disorganized and needing extra support/care in modulation of mood, psychotic sx PLAN: Section VIII Continue Olanzapine at 5 mg HS due to daytime sedation Invega Sustenna 156 mg monthly-next dosage 06/12/21. Clonidine 0.1 mg HS to address blood pressure elevations. [facility] Application for longer term hospitalization pending Encourage GED prep when pt has free time to assist him in structuring time, beginning to work toward his goals. Labs completed 05/22 are WNL. Greater than 50% of the session was spent on counseling and/or coordination of care Reason for contiued inpatient stay Substantial Risk for: harm to self, inability to function and rapid decompensation
[2021-06-01 20:51] VITALS: BP 140/58; PULSE 62
[2021-06-01] MEDS: cloNIDine HCL 0.1 MG TABLET PO (20:51)
[2021-06-01] MEDS: OLANZapine 5 MG TABLET PO (20:52)
--- NOTE | 2021-06-02 14:53 | HO.PSYCHPN ---
Subjective Subjective Date of Service: 06/02/21 Reason For Visit: Schizophrenia Interim History: Awake, alert, visable and participatory in milieu, talking about music with team and peers. Medication Compliance: Yes Side effects from medications: No Attending Groups: Yes Review of Systems Reports behavioral changes Psychiatric: Reports behavioral changes, Reports auditory hallucinations and Reports paranoia Mental Status Exam Mental Status Exam Patient Appearance: Appropriate Patient Orientation: Person, Place and Situation Level of Consciousness: Alert Patient Behavior: Guarded, Talkative and Suspicious Mood Description: Constricted Affect Description: Constricted Patient Cognition Impaired: Yes Ability to Follow Directions: Good Speech Pattern: Spontaneous Speech Memory Description: Episodic Impaired Hallucinations: Auditory Delusions: Paranoid Ideation Thought Process: Goal Oriented Thought Content: positive for [place], positive for Circumstantial, positive for Goal Oriented and positive for Suicidal Ideation (non suicidal) Depressive Symptoms: Sleeping More Than Usual and Low Self Esteem Judgement: Poor Diagnostics Vital Signs (24Hr): Vital Signs - 24 hr 06/01/21 20:51 Pulse Rate 62 Blood Pressure 140/58 H Body Mass Index 29.2 Labs Results: 05/22/21 14:56 05/22/21 14:56 Medications Medications Current Medications Generic Name Dose Route Start Last Admin Trade Name Freq PRN Reason Stop Dose Admin Acetaminophen 650 mg 04/26/21 22:03 04/29/21 09:44 Acetaminophen 325 Mg Tablet PO 650 mg Q6H PRN Administration Headache/Pain Mild Scale (1-3) Al Hydroxide/Mg Hydroxide 30 ml 04/26/21 22:03 Magnesium Hydrox/Alum Hydrox 30 Ml Oral.Susp PO Q6H PRN Heartburn/Nausea Benztropine Mesylate 0.5 mg 04/26/21 22:03 Benztropine Mesylate 0.5 Mg Tablet PO TID PRN Extrapyramidal Effects Clonidine HCl 0.1 mg 05/16/21 21:00 06/01/21 20:51 Clonidine Hcl 0.1 Mg Tablet PO 0.1 mg BEDTIME HERON Administration Protocol Diphenhydramine HCl 50 mg 04/26/21 22:03 Diphenhydramine Hcl 25 Mg Tablet PO Q4H PRN agitation Haloperidol 5 mg 04/26/21 22:03 Haloperidol 5 Mg Tablet PO Q4H PRN agitation Hydroxyzine HCl 25 mg 04/26/21 22:03 05/31/21 21:11 Hydroxyzine Hcl 25 Mg Tablet PO 25 mg TID PRN Administration Anxiety Magnesium Hydroxide 30 ml 04/26/21 22:03 Milk Of Magnesia 30 Ml Oral.Susp PO DAILY PRN Constipation Nicotine 21 mg 04/26/21 22:03 Nicotine 21 Mg Patch.Td24 TRANSDERMA DAILY PRN nocotine cessation Nicotine Polacrilex 4 mg 04/26/21 22:03 Nicotine Polacrilex 2 Mg Gum BUCCAL Q2H PRN Nicotine Cravings Olanzapine 5 mg 04/27/21 14:16 Olanzapine 5 Mg Tablet PO BID PRN mild-moderate agitation Olanzapine 10 mg 05/27/21 14:44 Olanzapine 10 Mg Vial IM DAILY PRN to be given if pt refuses pill per court order Olanzapine 5 mg 05/30/21 21:00 06/01/21 20:52 Olanzapine 5 Mg Tablet PO 5 mg BEDTIME HERON Administration Paliperidone Palmitate 156 mg 05/13/21 09:00 05/13/21 10:45 Paliperidone Palmitate 156 Mg/Ml Syringe IM 156 mg Q30D [facility] Administration Pharmacy Consult 1 each 04/26/21 18:33 Consult Rx Perform Med Rec MISCELLANE ONCE PRN Consult order Trazodone HCl 50 mg 04/26/21 22:03 Trazodone Hcl 50 Mg Tablet PO BEDTIME PRN Insomnia Allergies Allergies Allergy/AdvReac Type Severity Reaction Status Date / Time Penicillins [PCN] Allergy Unknown UNKNOWN Verified 10/05/20 19:44 Assessment & Plan Assessment & Plan (1) Schizophrenia: Qualifiers: Schizophrenia type: unspecified Qualified Code(s): F20.9 - Schizophrenia, unspecified Status: Acute Code(s): F20.9 - Schizophrenia, unspecified Assessment and Plan: 26 yo male, long history of schizophrenia, agitation, substance use, with a lapsed [facility] order presents after stopping meds (reported last meds 04/23/21) disorganized and needing extra support/care in modulation of mood, psychotic sx. Pt appears to be making steady improvement with GUERRA and Olanzapine. PLAN: Section VIII Continue Olanzapine at 5 mg HS due to daytime sedation Invega Sustenna 156 mg monthly-next dosage 06/12/21. Clonidine 0.1 mg HS to address blood pressure elevations. [facility] Application for longer term hospitalization pending Encourage GED prep when pt has free time to assist him in structuring time, beginning to work toward his goals. Labs completed 05/22 are WNL. Greater than 50% of the session was spent on counseling and/or coordination of care Reason for contiued inpatient stay Substantial Risk for: harm to self, harm to others, inability to function and rapid decompensation
[2021-06-02 17:25] VITALS: BP 137/71; PULSE 83; TEMP 36.4; O2SAT 95
[2021-06-02 20:49] VITALS: BP 141/81; PULSE 67
[2021-06-02] MEDS: cloNIDine HCL 0.1 MG TABLET PO (20:49)
[2021-06-02] MEDS: OLANZapine 5 MG TABLET PO (20:50)
[2021-06-02] MEDS: hydrOXYzine HCL 25 MG TABLET PO (20:50)
[2021-06-03 18:00] VITALS: BP 129/69; PULSE 73; TEMP 36.8; O2SAT 94
[2021-06-03 20:56] VITALS: BP 136/72; PULSE 71
[2021-06-03] MEDS: OLANZapine 5 MG TABLET PO (20:56)
[2021-06-03] MEDS: cloNIDine HCL 0.1 MG TABLET PO (20:56)
--- NOTE | 2021-06-03 22:58 | HO.PSYCHPN ---
Subjective Subjective Date of Service: 06/03/21 Reason For Visit: Schizophrenia Interim History: Patient has been cooperative asking when his next long-acting doses due Medication Compliance: Yes Mental Status Exam Mental Status Exam Patient Appearance: Appropriate Patient Orientation: Person, Place and Situation Level of Consciousness: Alert Patient Behavior: Guarded, Talkative and Suspicious Mood Description: Constricted Affect Description: Constricted Patient Cognition Impaired: Yes Ability to Follow Directions: Good Speech Pattern: Spontaneous Speech Memory Description: Episodic Impaired Hallucinations: Auditory Delusions: Paranoid Ideation Thought Process: Goal Oriented Thought Content: positive for [place], positive for Circumstantial, positive for Goal Oriented and positive for Suicidal Ideation (non suicidal) Depressive Symptoms: Sleeping More Than Usual and Low Self Esteem Judgement: Poor Diagnostics Vital Signs (24Hr): Vital Signs - 24 hr 06/03/21 18:00 06/03/21 20:56 Temperature 98.3 F Pulse Rate 73 71 Blood Pressure 129/69 136/72 Pulse Oximetry 94 Body Mass Index 29.2 Labs Results: 05/22/21 14:56 05/22/21 14:56 Medications Medications Current Medications Generic Name Dose Route Start Last Admin Trade Name Freq PRN Reason Stop Dose Admin Acetaminophen 650 mg 04/26/21 22:03 04/29/21 09:44 Acetaminophen 325 Mg Tablet PO 650 mg Q6H PRN Administration Headache/Pain Mild Scale (1-3) Al Hydroxide/Mg Hydroxide 30 ml 04/26/21 22:03 Magnesium Hydrox/Alum Hydrox 30 Ml Oral.Susp PO Q6H PRN Heartburn/Nausea Benztropine Mesylate 0.5 mg 04/26/21 22:03 Benztropine Mesylate 0.5 Mg Tablet PO TID PRN Extrapyramidal Effects Clonidine HCl 0.1 mg 05/16/21 21:00 06/03/21 20:56 Clonidine Hcl 0.1 Mg Tablet PO 0.1 mg BEDTIME HERON Administration Protocol Diphenhydramine HCl 50 mg 04/26/21 22:03 Diphenhydramine Hcl 25 Mg Tablet PO Q4H PRN agitation Haloperidol 5 mg 04/26/21 22:03 Haloperidol 5 Mg Tablet PO Q4H PRN agitation Hydroxyzine HCl 25 mg 04/26/21 22:03 06/02/21 20:50 Hydroxyzine Hcl 25 Mg Tablet PO 25 mg TID PRN Administration Anxiety Magnesium Hydroxide 30 ml 04/26/21 22:03 Milk Of Magnesia 30 Ml Oral.Susp PO DAILY PRN Constipation Nicotine 21 mg 04/26/21 22:03 Nicotine 21 Mg Patch.Td24 TRANSDERMA DAILY PRN nocotine cessation Nicotine Polacrilex 4 mg 04/26/21 22:03 Nicotine Polacrilex 2 Mg Gum BUCCAL Q2H PRN Nicotine Cravings Olanzapine 5 mg 04/27/21 14:16 Olanzapine 5 Mg Tablet PO BID PRN mild-moderate agitation Olanzapine 10 mg 05/27/21 14:44 Olanzapine 10 Mg Vial IM DAILY PRN to be given if pt refuses pill per court order Olanzapine 5 mg 05/30/21 21:00 06/03/21 20:56 Olanzapine 5 Mg Tablet PO 5 mg BEDTIME HERON Administration Paliperidone Palmitate 156 mg 05/13/21 09:00 05/13/21 10:45 Paliperidone Palmitate 156 Mg/Ml Syringe IM 156 mg Q30D HERON Administration Pharmacy Consult 1 each 04/26/21 18:33 Consult Rx Perform Med Rec MISCELLANE ONCE PRN Consult order Trazodone HCl 50 mg 04/26/21 22:03 Trazodone Hcl 50 Mg Tablet PO BEDTIME PRN Insomnia Allergies Allergies Allergy/AdvReac Type Severity Reaction Status Date / Time Penicillins [PCN] Allergy Unknown UNKNOWN Verified 10/05/20 19:44 Assessment & Plan Assessment & Plan (1) Schizophrenia: Qualifiers: Schizophrenia type: unspecified Qualified Code(s): F20.9 - Schizophrenia, unspecified Status: Acute Code(s): F20.9 - Schizophrenia, unspecified Assessment and Plan: 26 yo male, long history of schizophrenia, agitation, substance use, with a lapsed Blane's order presents after stopping meds (reported last meds 04/23/21) disorganized and needing extra support/care in modulation of mood, psychotic sx. Pt appears to be making steady improvement with GUERRA and Olanzapine. PLAN: Section VIII Continue Olanzapine at 5 mg HS due to daytime sedation Invega Sustenna 156 mg monthly-next dosage 06/12/21. Clonidine 0.1 mg HS to address blood pressure elevations. [facility] Application for longer term hospitalization pending Encourage GED prep when pt has free time to assist him in structuring time, beginning to work toward his goals. Labs completed 05/22 are WNL. responding to above Greater than 50% of the session was spent on counseling and/or coordination of care Reason for contiued inpatient stay Substantial Risk for: inability to function and rapid decompensation
[2021-06-04 15:50] VITALS: BP 139/91; PULSE 66; TEMP 36.7
--- NOTE | 2021-06-04 18:50 | P.PNPSI_ITS ---
Subjective Subjective Date of Service: 06/04/21 Reason For Visit: Schizophrenia Subjective Notes: Section 8 Healthcare Proxy: No Guardianship: No Medical Problems Affecting Mental Status: No Interim History: Pt is improved, organized, talking with team, interacting with peers-finds the hospital to be boring he tells the team. Awaiting a response for admission to [facility]. Review of Systems Reports behavioral changes Psychiatric: Reports behavioral changes Mental Status Exam Mental Status Exam Patient Appearance: Appropriate Patient Orientation: Person, Place, Time and Situation Level of Consciousness: Alert Patient Behavior: Appropriate and Cooperative Mood Description: Flat Affect Description: Flat Patient Cognition Impaired: Yes Ability to Follow Directions: Fair Speech Pattern: Spontaneous Speech Memory Description: Remote Impaired and Episodic Impaired Hallucinations: None Delusions: Paranoid Ideation Thought Process: Goal Oriented Thought Content: positive for Goal Oriented Judgement: Fair Diagnostics Vital Signs (24Hr): Vital Signs - 24 hr 06/03/21 20:56 06/04/21 15:50 Temperature 98.1 F Pulse Rate 71 66 Blood Pressure 136/72 139/91 H Body Mass Index 29.2 Labs Results: 05/22/21 14:56 05/22/21 14:56 Medications Medications Current Medications Generic Name Dose Route Start Last Admin Trade Name Freq PRN Reason Stop Dose Admin Acetaminophen 650 mg 04/26/21 22:03 04/29/21 09:44 Acetaminophen 325 Mg Tablet PO 650 mg Q6H PRN Administration Headache/Pain Mild Scale (1-3) Al Hydroxide/Mg Hydroxide 30 ml 04/26/21 22:03 Magnesium Hydrox/Alum Hydrox 30 Ml Oral.Susp PO Q6H PRN Heartburn/Nausea Benztropine Mesylate 0.5 mg 04/26/21 22:03 Benztropine Mesylate 0.5 Mg Tablet PO TID PRN Extrapyramidal Effects Clonidine HCl 0.1 mg 05/16/21 21:00 06/03/21 20:56 Clonidine Hcl 0.1 Mg Tablet PO 0.1 mg BEDTIME HERON Administration Protocol Diphenhydramine HCl 50 mg 04/26/21 22:03 Diphenhydramine Hcl 25 Mg Tablet PO Q4H PRN agitation Haloperidol 5 mg 04/26/21 22:03 Haloperidol 5 Mg Tablet PO Q4H PRN agitation Hydroxyzine HCl 25 mg 04/26/21 22:03 06/02/21 20:50 Hydroxyzine Hcl 25 Mg Tablet PO 25 mg TID PRN Administration Anxiety Magnesium Hydroxide 30 ml 04/26/21 22:03 Milk Of Magnesia 30 Ml Oral.Susp PO DAILY PRN Constipation Nicotine 21 mg 04/26/21 22:03 Nicotine 21 Mg Patch.Td24 TRANSDERMA DAILY PRN nocotine cessation Nicotine Polacrilex 4 mg 04/26/21 22:03 Nicotine Polacrilex 2 Mg Gum BUCCAL Q2H PRN Nicotine Cravings Olanzapine 5 mg 04/27/21 14:16 Olanzapine 5 Mg Tablet PO BID PRN mild-moderate agitation Olanzapine 10 mg 05/27/21 14:44 Olanzapine 10 Mg Vial IM DAILY PRN to be given if pt refuses pill per court order Olanzapine 5 mg 05/30/21 21:00 06/03/21 20:56 Olanzapine 5 Mg Tablet PO 5 mg BEDTIME HERON Administration Paliperidone Palmitate 156 mg 05/13/21 09:00 05/13/21 10:45 Paliperidone Palmitate 156 Mg/Ml Syringe IM 156 mg Q30D HERON Administration Pharmacy Consult 1 each 04/26/21 18:33 Consult Rx Perform Med Rec MISCELLANE ONCE PRN Consult order Trazodone HCl 50 mg 04/26/21 22:03 Trazodone Hcl 50 Mg Tablet PO BEDTIME PRN Insomnia Allergies Allergies Allergy/AdvReac Type Severity Reaction Status Date / Time Penicillins [PCN] Allergy Unknown UNKNOWN Verified 10/05/20 19:44 Assessment & Plan Assessment & Plan (1) Schizophrenia: Qualifiers: Schizophrenia type: unspecified Qualified Code(s): F20.9 - Schizophrenia, unspecified Status: Acute Code(s): F20.9 - Schizophrenia, unspecified Assessment and Plan: 26 yo male, long history of schizophrenia, agitation, substance use, with a lapsed Blane's order presents after stopping meds (reported last meds 04/23/21) disorganized and needing extra support/care in modulation of mood, psychotic sx. Pt appears to be making steady improvement with GUERRA and Olanzapine. PLAN: Section VIII Continue Olanzapine at 5 mg HS due to daytime sedation Invega Sustenna 156 mg monthly-next dosage 06/12/21. Clonidine 0.1 mg HS to address blood pressure elevations. [facility] Application for longer term hospitalization pending Encourage GED prep when pt has free time to assist him in structuring time, beginning to work toward his goals. Labs completed 05/22 are WNL. responding to above Greater than 50% of the session was spent on counseling and/or coordination of care Reason for contiued inpatient stay Substantial Risk for: harm to self, harm to others, inability to function and rapid decompensation
[2021-06-04 20:38] VITALS: BP 175/78; PULSE 68
[2021-06-04] MEDS: OLANZapine 5 MG TABLET PO (20:38)
[2021-06-04] MEDS: cloNIDine HCL 0.1 MG TABLET PO (20:38)
[2021-06-04] MEDS: hydrOXYzine HCL 25 MG TABLET PO (20:40)
[2021-06-05 18:00] VITALS: BP 130/60; PULSE 63; TEMP 36.8
--- NOTE | 2021-06-05 18:32 | HO.PSYCHPN ---
Subjective Subjective Date of Service: 06/05/21 Reason For Visit: Schizophrenia Subjective Notes: Section 8 Healthcare Proxy: No Guardianship: No Medical Problems Affecting Mental Status: No Interim History: Visable and participatory in milieu. Medication Compliance: Yes Side effects from medications: No Attending Groups: Yes Review of Systems Reports behavioral changes Psychiatric: Reports behavioral changes Mental Status Exam Mental Status Exam Patient Appearance: Appropriate Patient Orientation: Person, Place, Time and Situation Level of Consciousness: Alert Patient Behavior: Appropriate and Talkative Mood Description: Calm Affect Description: Flat Patient Cognition Impaired: Yes Ability to Follow Directions: Good Speech Pattern: Spontaneous Speech Memory Description: Remote Impaired and Episodic Impaired Hallucinations: None Delusions: Not Present Thought Process: Goal Oriented Thought Content: positive for Goal Oriented Depressive Symptoms: Unhappiness and Low Self Esteem Judgement: Poor Diagnostics Vital Signs (24Hr): Vital Signs - 24 hr 06/04/21 20:38 Pulse Rate 68 Blood Pressure 175/78 H Body Mass Index 29.2 Labs Results: 05/22/21 14:56 05/22/21 14:56 Medications Medications Current Medications Generic Name Dose Route Start Last Admin Trade Name Freq PRN Reason Stop Dose Admin Acetaminophen 650 mg 04/26/21 22:03 04/29/21 09:44 Acetaminophen 325 Mg Tablet PO 650 mg Q6H PRN Administration Headache/Pain Mild Scale (1-3) Al Hydroxide/Mg Hydroxide 30 ml 04/26/21 22:03 Magnesium Hydrox/Alum Hydrox 30 Ml Oral.Susp PO Q6H PRN Heartburn/Nausea Benztropine Mesylate 0.5 mg 04/26/21 22:03 Benztropine Mesylate 0.5 Mg Tablet PO TID PRN Extrapyramidal Effects Clonidine HCl 0.1 mg 05/16/21 21:00 06/04/21 20:38 Clonidine Hcl 0.1 Mg Tablet PO 0.1 mg BEDTIME HERON Administration Protocol Diphenhydramine HCl 50 mg 04/26/21 22:03 Diphenhydramine Hcl 25 Mg Tablet PO Q4H PRN agitation Haloperidol 5 mg 04/26/21 22:03 Haloperidol 5 Mg Tablet PO Q4H PRN agitation Hydroxyzine HCl 25 mg 04/26/21 22:03 06/04/21 20:40 Hydroxyzine Hcl 25 Mg Tablet PO 25 mg TID PRN Administration Anxiety Magnesium Hydroxide 30 ml 04/26/21 22:03 Milk Of Magnesia 30 Ml Oral.Susp PO DAILY PRN Constipation Nicotine 21 mg 04/26/21 22:03 Nicotine 21 Mg Patch.Td24 TRANSDERMA DAILY PRN nocotine cessation Nicotine Polacrilex 4 mg 04/26/21 22:03 Nicotine Polacrilex 2 Mg Gum BUCCAL Q2H PRN Nicotine Cravings Olanzapine 5 mg 04/27/21 14:16 Olanzapine 5 Mg Tablet PO BID PRN mild-moderate agitation Olanzapine 10 mg 05/27/21 14:44 Olanzapine 10 Mg Vial IM DAILY PRN to be given if pt refuses pill per court order Olanzapine 5 mg 05/30/21 21:00 06/04/21 20:38 Olanzapine 5 Mg Tablet PO 5 mg BEDTIME HERON Administration Paliperidone Palmitate 156 mg 05/13/21 09:00 05/13/21 10:45 Paliperidone Palmitate 156 Mg/Ml Syringe IM 156 mg Q30D HERON Administration Pharmacy Consult 1 each 04/26/21 18:33 Consult Rx Perform Med Rec MISCELLANE ONCE PRN Consult order Trazodone HCl 50 mg 04/26/21 22:03 Trazodone Hcl 50 Mg Tablet PO BEDTIME PRN Insomnia Allergies Allergies Allergy/AdvReac Type Severity Reaction Status Date / Time Penicillins [PCN] Allergy Unknown UNKNOWN Verified 10/05/20 19:44 Assessment & Plan Assessment & Plan (1) Schizophrenia: Qualifiers: Schizophrenia type: unspecified Qualified Code(s): F20.9 - Schizophrenia, unspecified Status: Acute Code(s): F20.9 - Schizophrenia, unspecified Assessment and Plan: 26 yo male, long history of schizophrenia, agitation, substance use, with a lapsed Blane's order presents after stopping meds (reported last meds 04/23/21) disorganized and needing extra support/care in modulation of mood, psychotic sx. Pt appears to be making steady improvement with GUERRA and Olanzapine. PLAN: Section VIII Continue Olanzapine at 5 mg HS due to daytime sedation Invega Sustenna 156 mg monthly-next dosage 06/12/21. Clonidine 0.1 mg HS to address blood pressure elevations. [facility] Application for longer term hospitalization pending Encourage GED prep when pt has free time to assist him in structuring time, beginning to work toward his goals. Labs completed 05/22 are WNL. Greater than 50% of the session was spent on counseling and/or coordination of care Reason for contiued inpatient stay Substantial Risk for: harm to self, harm to others, inability to function and rapid decompensation
[2021-06-05 20:40] VITALS: BP 130/60; PULSE 63
[2021-06-05] MEDS: cloNIDine HCL 0.1 MG TABLET PO (20:40)
[2021-06-05] MEDS: OLANZapine 5 MG TABLET PO (20:41)
[2021-06-05] MEDS: hydrOXYzine HCL 25 MG TABLET PO (21:18)
--- NOTE | 2021-06-06 12:09 | HO.PSYCHPN ---
Subjective Subjective Date of Service: 06/06/21 Reason For Visit: Schizophrenia Subjective Notes: Section 8 Healthcare Proxy: No Guardianship: No Medical Problems Affecting Mental Status: No Interim History: Stable in milieu. Awaiting decision from [facility] for admission. Tolerating GDR of meds-appears to be awake and more involved during the daytime hours. Medication Compliance: Yes Side effects from medications: No Attending Groups: Intermittent Review of Systems Reports behavioral changes Psychiatric: Reports abnormal sleep pattern, Reports behavioral changes and Reports auditory hallucinations Mental Status Exam Mental Status Exam Patient Appearance: Appropriate Patient Orientation: Person, Place, Time and Situation Level of Consciousness: Alert Patient Behavior: Cooperative Mood Description: Constricted Affect Description: Constricted Ability to Follow Directions: Good Speech Pattern: Spontaneous Speech Memory Description: Episodic Impaired Hallucinations: Auditory Delusions: Paranoid Ideation Thought Process: Distracted Thought Content: positive for [place] and positive for Circumstantial Depressive Symptoms: Diff. Making Decisions and Low Self Esteem Judgement: Fair Diagnostics Vital Signs (24Hr): Vital Signs - 24 hr 06/05/21 18:00 06/05/21 20:40 Temperature 98.3 F Pulse Rate 63 63 Blood Pressure 130/60 130/60 Body Mass Index 29.2 Labs Results: 05/22/21 14:56 05/22/21 14:56 Medications Medications Current Medications Generic Name Dose Route Start Last Admin Trade Name Freq PRN Reason Stop Dose Admin Acetaminophen 650 mg 04/26/21 22:03 04/29/21 09:44 Acetaminophen 325 Mg Tablet PO 650 mg Q6H PRN Administration Headache/Pain Mild Scale (1-3) Al Hydroxide/Mg Hydroxide 30 ml 04/26/21 22:03 Magnesium Hydrox/Alum Hydrox 30 Ml Oral.Susp PO Q6H PRN Heartburn/Nausea Benztropine Mesylate 0.5 mg 04/26/21 22:03 Benztropine Mesylate 0.5 Mg Tablet PO TID PRN Extrapyramidal Effects Clonidine HCl 0.1 mg 05/16/21 21:00 06/05/21 20:40 Clonidine Hcl 0.1 Mg Tablet PO 0.1 mg BEDTIME HERON Administration Protocol Diphenhydramine HCl 50 mg 04/26/21 22:03 Diphenhydramine Hcl 25 Mg Tablet PO Q4H PRN agitation Haloperidol 5 mg 04/26/21 22:03 Haloperidol 5 Mg Tablet PO Q4H PRN agitation Hydroxyzine HCl 25 mg 04/26/21 22:03 06/05/21 21:18 Hydroxyzine Hcl 25 Mg Tablet PO 25 mg TID PRN Administration Anxiety Magnesium Hydroxide 30 ml 04/26/21 22:03 Milk Of Magnesia 30 Ml Oral.Susp PO DAILY PRN Constipation Nicotine 21 mg 04/26/21 22:03 Nicotine 21 Mg Patch.Td24 TRANSDERMA DAILY PRN nocotine cessation Nicotine Polacrilex 4 mg 04/26/21 22:03 Nicotine Polacrilex 2 Mg Gum BUCCAL Q2H PRN Nicotine Cravings Olanzapine 5 mg 04/27/21 14:16 Olanzapine 5 Mg Tablet PO BID PRN mild-moderate agitation Olanzapine 10 mg 05/27/21 14:44 Olanzapine 10 Mg Vial IM DAILY PRN to be given if pt refuses pill per court order Olanzapine 5 mg 05/30/21 21:00 06/05/21 20:41 Olanzapine 5 Mg Tablet PO 5 mg BEDTIME HERON Administration Paliperidone Palmitate 156 mg 05/13/21 09:00 05/13/21 10:45 Paliperidone Palmitate 156 Mg/Ml Syringe IM 156 mg Q30D HERON Administration Pharmacy Consult 1 each 04/26/21 18:33 Consult Rx Perform Med Rec MISCELLANE ONCE PRN Consult order Trazodone HCl 50 mg 04/26/21 22:03 Trazodone Hcl 50 Mg Tablet PO BEDTIME PRN Insomnia Allergies Allergies Allergy/AdvReac Type Severity Reaction Status Date / Time Penicillins [PCN] Allergy Unknown UNKNOWN Verified 10/05/20 19:44 Assessment & Plan Assessment & Plan (1) Schizophrenia: Qualifiers: Schizophrenia type: unspecified Qualified Code(s): F20.9 - Schizophrenia, unspecified Status: Acute Code(s): F20.9 - Schizophrenia, unspecified Assessment and Plan: 26 yo male, long history of schizophrenia, agitation, substance use, with a lapsed Blane's order presents after stopping meds (reported last meds 04/23/21) disorganized and needing extra support/care in modulation of mood, psychotic sx. Pt appears to be making steady improvement with GUERRA and Olanzapine. PLAN: Section VIII Continue Olanzapine at 5 mg HS due to daytime sedation Invega Sustenna 156 mg monthly-next dosage 06/12/21. Clonidine 0.1 mg HS to address blood pressure elevations. [facility] Application for longer term hospitalization pending Encourage GED prep when pt has free time to assist him in structuring time, beginning to work toward his goals. Labs completed 05/22 are WNL. Pt responding to the current plan of care. Await [facility] decision as by history, discharge to community precipitates immediate relapse with substance use, non compliance with medications and placing self in danger by returning to the streets. Greater than 50% of the session was spent on counseling and/or coordination of care Reason for contiued inpatient stay Substantial Risk for: harm to self, harm to others, inability to function and rapid decompensation
[2021-06-06 18:00] VITALS: BP 141/81; PULSE 64; TEMP 36.9
[2021-06-06 21:04] VITALS: BP 151/72; PULSE 69
[2021-06-06] MEDS: OLANZapine 5 MG TABLET PO (21:04)
[2021-06-06] MEDS: cloNIDine HCL 0.1 MG TABLET PO (21:04)
[2021-06-06] MEDS: hydrOXYzine HCL 25 MG TABLET PO (21:07)
--- NOTE | 2021-06-07 15:07 | P.PNPSI_ITS ---
Subjective Subjective Date of Service: 06/07/21 Reason For Visit: Schizophrenia Subjective Notes: Section 8 Healthcare Proxy: No Guardianship: No Medical Problems Affecting Mental Status: No Interim History: Pt in bed for most of the day. Reportedly to bed at 1:30a.m. Minimal interactions with the team. Will plan another GDR of Olanzapine next week. Team reports pt is still being considered for [facility] with an approximate 60 day wait. BP 151/82-141/81 high readings this week. Review of Systems Reports behavioral changes Psychiatric: Reports abnormal sleep pattern, Reports behavioral changes, Reports irritability and Reports mood swings Mental Status Exam Mental Status Exam Patient Appearance: Fatigued Patient Orientation: Person, Place and Situation Level of Consciousness: Drowsy and Sedated Patient Behavior: Asleep, Sedated, Avoidant and Isolative Mood Description: Withdrawn Affect Description: Withdrawn Patient Cognition Impaired: Yes Ability to Follow Directions: Fair Speech Pattern: Impoverished and Spontaneous Speech Memory Description: Remote Impaired and Episodic Impaired Hallucinations: Auditory Delusions: Not Present Thought Process: Evasive Thought Content: positive for Evasive Depressive Symptoms: Sleeping More Than Usual Judgement: Fair Diagnostics Vital Signs (24Hr): Vital Signs - 24 hr 06/06/21 18:00 06/06/21 21:04 Temperature 98.4 F Pulse Rate 64 69 Blood Pressure 141/81 H 151/72 H Body Mass Index 29.2 Labs Results: 05/22/21 14:56 05/22/21 14:56 Medications Medications Current Medications Generic Name Dose Route Start Last Admin Trade Name Freq PRN Reason Stop Dose Admin Acetaminophen 650 mg 04/26/21 22:03 04/29/21 09:44 Acetaminophen 325 Mg Tablet PO 650 mg Q6H PRN Administration Headache/Pain Mild Scale (1-3) Al Hydroxide/Mg Hydroxide 30 ml 04/26/21 22:03 Magnesium Hydrox/Alum Hydrox 30 Ml Oral.Susp PO Q6H PRN Heartburn/Nausea Benztropine Mesylate 0.5 mg 04/26/21 22:03 Benztropine Mesylate 0.5 Mg Tablet PO TID PRN Extrapyramidal Effects Clonidine HCl 0.1 mg 05/16/21 21:00 06/06/21 21:04 Clonidine Hcl 0.1 Mg Tablet PO 0.1 mg BEDTIME HERON Administration Protocol Diphenhydramine HCl 50 mg 04/26/21 22:03 Diphenhydramine Hcl 25 Mg Tablet PO Q4H PRN agitation Haloperidol 5 mg 04/26/21 22:03 Haloperidol 5 Mg Tablet PO Q4H PRN agitation Hydroxyzine HCl 25 mg 04/26/21 22:03 06/06/21 21:07 Hydroxyzine Hcl 25 Mg Tablet PO 25 mg TID PRN Administration Anxiety Magnesium Hydroxide 30 ml 04/26/21 22:03 Milk Of Magnesia 30 Ml Oral.Susp PO DAILY PRN Constipation Nicotine 21 mg 04/26/21 22:03 Nicotine 21 Mg Patch.Td24 TRANSDERMA DAILY PRN nocotine cessation Nicotine Polacrilex 4 mg 04/26/21 22:03 Nicotine Polacrilex 2 Mg Gum BUCCAL Q2H PRN Nicotine Cravings Olanzapine 5 mg 04/27/21 14:16 Olanzapine 5 Mg Tablet PO BID PRN mild-moderate agitation Olanzapine 10 mg 05/27/21 14:44 Olanzapine 10 Mg Vial IM DAILY PRN to be given if pt refuses pill per court order Olanzapine 5 mg 05/30/21 21:00 06/06/21 21:04 Olanzapine 5 Mg Tablet PO 5 mg BEDTIME HERON Administration Paliperidone Palmitate 156 mg 05/13/21 09:00 05/13/21 10:45 Paliperidone Palmitate 156 Mg/Ml Syringe IM 156 mg Q30D [facility] Administration Pharmacy Consult 1 each 04/26/21 18:33 Consult Rx Perform Med Rec MISCELLANE ONCE PRN Consult order Trazodone HCl 50 mg 04/26/21 22:03 Trazodone Hcl 50 Mg Tablet PO BEDTIME PRN Insomnia Allergies Allergies Allergy/AdvReac Type Severity Reaction Status Date / Time Penicillins [PCN] Allergy Unknown UNKNOWN Verified 10/05/20 19:44 Assessment & Plan Assessment & Plan (1) Schizophrenia: Qualifiers: Schizophrenia type: unspecified Qualified Code(s): F20.9 - Schizophrenia, unspecified Status: Acute Code(s): F20.9 - Schizophrenia, unspecified Assessment and Plan: 26 yo male, long history of schizophrenia, agitation, substance use, with a lapsed Blane's order presents after stopping meds (reported last meds 04/23/21) disorganized and needing extra support/care in modulation of mood, psychotic sx. Pt appears to be making steady improvement with GUERRA and Olanzapine. He is pending possible transfer to [facility]. PLAN: Section VIII Continue Olanzapine at 5 mg HS due to daytime sedation, prn and Haldol/Benztropine prn Invega Sustenna 156 mg monthly-next dosage 06/12/21. Clonidine 0.1 mg HS to address blood pressure elevations, possible increase as pt running some high numbers at times 151/72;141/81. [facility] Application for longer term hospitalization pending~ 60 days Encourage GED prep when pt has free time to assist him in structuring time, beginning to work toward his goals. Labs completed 05/22 are WNL. Pt responding to the current plan of care. Await [facility] decision as by history, discharge to community precipitates immediate relapse with substance use, non compliance with medications and placing self in danger by returning to the streets. Greater than 50% of the session was spent on counseling and/or coordination of care Informed Consent: further education needed Reason for contiued inpatient stay Substantial Risk for: harm to self, harm to others, inability to function and rapid decompensation
[2021-06-07 18:00] VITALS: BP 136/69; PULSE 68; TEMP 36.6
[2021-06-07 20:59] VITALS: BP 136/69; PULSE 68
[2021-06-07] MEDS: OLANZapine 5 MG TABLET PO (20:59)
[2021-06-07] MEDS: cloNIDine HCL 0.1 MG TABLET PO (20:59)
--- NOTE | 2021-06-08 14:46 | HO.PSYCHPN ---
Subjective Subjective Date of Service: 06/08/21 Reason For Visit: Schizophrenia Subjective Notes: Section 8 Interim History: Seen in room. Some irritability and reports frustration around psychiatric team him medication choices. Feels that he is not listened to. Reports feeling depressed with low energy. Denies feeling paranoid or suicidal. Would like medication review and had some focus on gabapentin. Discuss this is more likely something needed to be discussed with primary team but we could review this tomorrow. As per staff is Reggie socializing in the evenings a much more active in groups. Review of Systems Review of Systems Unremarkable Mental Status Exam Mental Status Exam Narrative: in bed. Some irritability. Organized. Reports feeling depressed. No SI. No HI. No overt psychosis. Insight and judgment is limited Diagnostics Vital Signs (24Hr): Vital Signs - 24 hr 06/07/21 18:00 06/07/21 20:59 Temperature 97.9 F Pulse Rate 68 68 Blood Pressure 136/69 136/69 Body Mass Index 29.2 Labs Results: 05/22/21 14:56 05/22/21 14:56 Medications Medications Current Medications Generic Name Dose Route Start Last Admin Trade Name Freq PRN Reason Stop Dose Admin Acetaminophen 650 mg 04/26/21 22:03 04/29/21 09:44 Acetaminophen 325 Mg Tablet PO 650 mg Q6H PRN Administration Headache/Pain Mild Scale (1-3) Al Hydroxide/Mg Hydroxide 30 ml 04/26/21 22:03 Magnesium Hydrox/Alum Hydrox 30 Ml Oral.Susp PO Q6H PRN Heartburn/Nausea Benztropine Mesylate 0.5 mg 04/26/21 22:03 Benztropine Mesylate 0.5 Mg Tablet PO TID PRN Extrapyramidal Effects Clonidine HCl 0.1 mg 05/16/21 21:00 06/07/21 20:59 Clonidine Hcl 0.1 Mg Tablet PO 0.1 mg BEDTIME HERON Administration Protocol Diphenhydramine HCl 50 mg 04/26/21 22:03 Diphenhydramine Hcl 25 Mg Tablet PO Q4H PRN agitation Haloperidol 5 mg 04/26/21 22:03 Haloperidol 5 Mg Tablet PO Q4H PRN agitation Hydroxyzine HCl 25 mg 04/26/21 22:03 06/06/21 21:07 Hydroxyzine Hcl 25 Mg Tablet PO 25 mg TID PRN Administration Anxiety Magnesium Hydroxide 30 ml 04/26/21 22:03 Milk Of Magnesia 30 Ml Oral.Susp PO DAILY PRN Constipation Nicotine 21 mg 04/26/21 22:03 Nicotine 21 Mg Patch.Td24 TRANSDERMA DAILY PRN nocotine cessation Nicotine Polacrilex 4 mg 04/26/21 22:03 Nicotine Polacrilex 2 Mg Gum BUCCAL Q2H PRN Nicotine Cravings Olanzapine 5 mg 04/27/21 14:16 Olanzapine 5 Mg Tablet PO BID PRN mild-moderate agitation Olanzapine 10 mg 05/27/21 14:44 Olanzapine 10 Mg Vial IM DAILY PRN to be given if pt refuses pill per court order Olanzapine 5 mg 05/30/21 21:00 06/07/21 20:59 Olanzapine 5 Mg Tablet PO 5 mg BEDTIME HERON Administration Paliperidone Palmitate 156 mg 05/13/21 09:00 05/13/21 10:45 Paliperidone Palmitate 156 Mg/Ml Syringe IM 156 mg Q30D HERON Administration Pharmacy Consult 1 each 04/26/21 18:33 Consult Rx Perform Med Rec MISCELLANE ONCE PRN Consult order Trazodone HCl 50 mg 04/26/21 22:03 Trazodone Hcl 50 Mg Tablet PO BEDTIME PRN Insomnia Allergies Allergies Allergy/AdvReac Type Severity Reaction Status Date / Time Penicillins [PCN] Allergy Unknown UNKNOWN Verified 10/05/20 19:44 Assessment & Plan Assessment & Plan (1) Schizophrenia: Qualifiers: Schizophrenia type: unspecified Qualified Code(s): F20.9 - Schizophrenia, unspecified Status: Acute Code(s): F20.9 - Schizophrenia, unspecified Assessment and Plan: 26 yo male, long history of schizophrenia, agitation, substance use, with a lapsed Blane's order presents after stopping meds (reported last meds 04/23/21) disorganized and needing extra support/care in modulation of mood, psychotic sx. Pt appears to be making steady improvement with GUERRA and Olanzapine. He is pending possible transfer to [facility]. no changes as per primary team treatment team's plan on 06/07/2021, which was: PLAN: Section VIII Continue Olanzapine at 5 mg HS due to daytime sedation, prn and Haldol/Benztropine prn Invega Sustenna 156 mg monthly-next dosage 06/12/21. Clonidine 0.1 mg HS to address blood pressure elevations, possible increase as pt running some high numbers at times 151/72;141/81. [facility] Application for longer term hospitalization pending~ 60 days Encourage GED prep when pt has free time to assist him in structuring time, beginning to work toward his goals. Labs completed 05/22 are WNL. Pt responding to the current plan of care. Await [facility] decision as by history, discharge to community precipitates immediate relapse with substance use, non compliance with medications and placing self in danger by returning to the streets. Greater than 50% of the session was spent on counseling and/or coordination of care Reason for contiued inpatient stay Substantial Risk for: inability to function and rapid decompensation
[2021-06-08 18:29] VITALS: BP 151/80; PULSE 88; TEMP 37.1
[2021-06-08 20:39] VITALS: BP 160/75; PULSE 67
[2021-06-08] MEDS: cloNIDine HCL 0.1 MG TABLET PO (20:39)
[2021-06-08] MEDS: OLANZapine 5 MG TABLET PO (20:39)
[2021-06-08] MEDS: hydrOXYzine HCL 25 MG TABLET PO (20:42)
--- NOTE | 2021-06-09 15:12 | HO.PSYCHPN ---
Subjective Subjective Date of Service: 06/09/21 Reason For Visit: Schizophrenia Subjective Notes: Section 7 and Section 8 Interim History: seen in room. Continues to be irritable at times. Reports feeling depressed. Feels that he is being punished by outside providers cons hospital providers around medication regimen. Feels the current medications have led to him feeling depressed without any energy. He would like to speak with his primary team around current medication regimen. Is aware that [facility] is being pursued and he reports preferring a long-term respite bed. Also frustrated around his previous stay in a long-term respite bed and reports he had to leave because after 9 months they were unable to get subsidies for another place to live in. Review of Systems Review of Systems Unremarkable Yes all other systems are reviewed and are negative and Unobtainable due to mental status Reports behavioral changes and Reports confusion Psychiatric: Reports abnormal sleep pattern, Reports anxiety, Reports behavioral changes, Reports confusion, Reports depression, Reports difficulty concentrating, Reports auditory hallucinations, Reports hopelessness, Reports irritability, Reports anhedonia, Reports mood swings, Reports paranoia, Reports visual hallucinations, Reports hallucinations and Reports suicidal ideation ( NO ) Mental Status Exam Mental Status Exam Narrative: in bed. Some irritability. Organized. Reports feeling depressed. No SI. No HI. No overt psychosis. Insight and judgment is limited Patient Appearance: Fatigued Patient Orientation: Person, Place and Situation Level of Consciousness: Drowsy and Sedated Patient Behavior: Asleep, Sedated, Avoidant and Isolative Mood Description: Withdrawn Affect Description: Withdrawn Patient Cognition Impaired: Yes Ability to Follow Directions: Fair Speech Pattern: Impoverished and Spontaneous Speech Memory Description: Remote Impaired and Episodic Impaired Diagnostics Vital Signs (24Hr): Vital Signs - 24 hr 06/08/21 18:29 06/08/21 20:39 Temperature 98.8 F Pulse Rate 88 67 Blood Pressure 151/80 H 160/75 H Body Mass Index 29.2 Labs Results: 05/22/21 14:56 05/22/21 14:56 Medications Medications Current Medications Generic Name Dose Route Start Last Admin Trade Name Freq PRN Reason Stop Dose Admin Acetaminophen 650 mg 04/26/21 22:03 04/29/21 09:44 Acetaminophen 325 Mg Tablet PO 650 mg Q6H PRN Administration Headache/Pain Mild Scale (1-3) Al Hydroxide/Mg Hydroxide 30 ml 04/26/21 22:03 Magnesium Hydrox/Alum Hydrox 30 Ml Oral.Susp PO Q6H PRN Heartburn/Nausea Benztropine Mesylate 0.5 mg 04/26/21 22:03 Benztropine Mesylate 0.5 Mg Tablet PO TID PRN Extrapyramidal Effects Clonidine HCl 0.1 mg 05/16/21 21:00 06/08/21 20:39 Clonidine Hcl 0.1 Mg Tablet PO 0.1 mg BEDTIME HERON Administration Protocol Diphenhydramine HCl 50 mg 04/26/21 22:03 Diphenhydramine Hcl 25 Mg Tablet PO Q4H PRN agitation Haloperidol 5 mg 04/26/21 22:03 Haloperidol 5 Mg Tablet PO Q4H PRN agitation Hydroxyzine HCl 25 mg 04/26/21 22:03 06/08/21 20:42 Hydroxyzine Hcl 25 Mg Tablet PO 25 mg TID PRN Administration Anxiety Magnesium Hydroxide 30 ml 04/26/21 22:03 Milk Of Magnesia 30 Ml Oral.Susp PO DAILY PRN Constipation Nicotine 21 mg 04/26/21 22:03 Nicotine 21 Mg Patch.Td24 TRANSDERMA DAILY PRN nocotine cessation Nicotine Polacrilex 4 mg 04/26/21 22:03 Nicotine Polacrilex 2 Mg Gum BUCCAL Q2H PRN Nicotine Cravings Olanzapine 5 mg 04/27/21 14:16 Olanzapine 5 Mg Tablet PO BID PRN mild-moderate agitation Olanzapine 10 mg 05/27/21 14:44 Olanzapine 10 Mg Vial IM DAILY PRN to be given if pt refuses pill per court order Olanzapine 5 mg 05/30/21 21:00 06/08/21 20:39 Olanzapine 5 Mg Tablet PO 5 mg BEDTIME HERON Administration Paliperidone Palmitate 156 mg 05/13/21 09:00 05/13/21 10:45 Paliperidone Palmitate 156 Mg/Ml Syringe IM 156 mg Q30D [facility] Administration Pharmacy Consult 1 each 04/26/21 18:33 Consult Rx Perform Med Rec MISCELLANE ONCE PRN Consult order Trazodone HCl 50 mg 04/26/21 22:03 Trazodone Hcl 50 Mg Tablet PO BEDTIME PRN Insomnia Allergies Allergies Allergy/AdvReac Type Severity Reaction Status Date / Time Penicillins [PCN] Allergy Unknown UNKNOWN Verified 10/05/20 19:44 Assessment & Plan Assessment & Plan (1) Schizophrenia: Qualifiers: Schizophrenia type: unspecified Qualified Code(s): F20.9 - Schizophrenia, unspecified Status: Acute Code(s): F20.9 - Schizophrenia, unspecified Assessment and Plan: 26 yo male, long history of schizophrenia, agitation, substance use, with a lapsed Blane's order presents after stopping meds (reported last meds 04/23/21) disorganized and needing extra support/care in modulation of mood, psychotic sx. Pt appears to be making steady improvement with GUERRA and Olanzapine. He is pending possible transfer to [facility]. Would like to communicate with primary team about current regimen as he feels that is leading to depression and low energy. Otherwise, no changes as per primary team treatment team's plan on 06/07/2021, which was: PLAN: Section VIII Continue Olanzapine at 5 mg HS due to daytime sedation, prn and Haldol/Benztropine prn Invega Sustenna 156 mg monthly-next dosage 06/12/21. Clonidine 0.1 mg HS to address blood pressure elevations, possible increase as pt running some high numbers at times 151/72;141/81. [facility] Application for longer term hospitalization pending~ 60 days Encourage GED prep when pt has free time to assist him in structuring time, beginning to work toward his goals. Labs completed 05/22 are WNL. Pt responding to the current plan of care. Await [facility] decision as by history, discharge to community precipitates immediate relapse with substance use, non compliance with medications and placing self in danger by returning to the streets. Greater than 50% of the session was spent on counseling and/or coordination of care Reason for contiued inpatient stay Substantial Risk for: inability to function and rapid decompensation
[2021-06-09 16:40] VITALS: BP 135/63; PULSE 69; TEMP 37.1
[2021-06-09 20:13] VITALS: BP 154/89; PULSE 72
[2021-06-09] MEDS: cloNIDine HCL 0.1 MG TABLET PO (20:13)
[2021-06-09] MEDS: OLANZapine 5 MG TABLET PO (20:14)
[2021-06-09] MEDS: hydrOXYzine HCL 25 MG TABLET PO (22:45)
--- NOTE | 2021-06-10 15:32 | P.PNPSI_ITS ---
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 Reports anergia, depression as SE of current regime. Invega shot makes me feel tired and forgetful. Requests to return to full dose Olanzapine or Invega PO. Reports injections are slowing and expresses concern that he will not be able to learn what is needed to complete GED requirements. Also requests Gabapentin retrial at dosing of 200 mg a.m. 100 mg pm as it assisted with anxiety mgt. By history, Olanzapine/Gabapentin have been helpful in past trials, however compliance was the issue. Pt also discussed wanting to go to [facility]. Discussed that past history of respite stays led to pt leaving the program, cannabis use, medication noncompliance and decompensation, thus the [facility] referral. Pt discussed at length that he does not believe he has illness, but, has symptoms due to inadequate parenting resulting in poor support and direction in life. Discussed wanting to be someone and something-do you think I could work here- you know me well and I know all of you well. Medication Compliance: Yes Side effects from medications: Yes (as noted) Attending Groups: Intermittent Review of Systems Reports behavioral changes Psychiatric: Reports abnormal sleep pattern, Reports anxiety, Reports behavioral changes, Reports depression, Reports difficulty concentrating, Reports auditory hallucinations, Reports irritability and Reports suicidal ideation (denies) Mental Status Exam Mental Status Exam Patient Appearance: Appropriate Patient Orientation: Person, Place, Time and Situation Level of Consciousness: Alert Patient Behavior: Appropriate, Talkative, Cooperative, Anxious and Good Eye Contact Mood Description: Calm, Constricted and Apprehensive Affect Description: Constricted Patient Cognition Impaired: No Ability to Follow Directions: Good Speech Pattern: Clear, Appropriate, Spontaneous Speech, Coherent and Soft-Spoken Memory Description: Episodic Impaired Hallucinations: None Delusions: Not Present Thought Process: Goal Oriented Thought Content: positive for Intact, positive for [employer], positive for Circumstantial, positive for Perseveration and positive for Suicidal Ideation (denies) Depressive Symptoms: Sleeping More Than Usual, Increased Fatigue, Thoughts of /Suicide (denies), Low Self Esteem, Loss of Energy and Difficulty Concentrating Judgement: Fair Diagnostics Vital Signs (24Hr): Vital Signs - 24 hr 06/09/21 16:40 06/09/21 20:13 Temperature 98.8 F Pulse Rate 69 72 Blood Pressure 135/63 154/89 H Body Mass Index 29.2 Labs Results: 05/22/21 14:56 05/22/21 14:56 Medications Medications Current Medications Generic Name Dose Route Start Last Admin Trade Name Freq PRN Reason Stop Dose Admin Acetaminophen 650 mg 04/26/21 22:03 04/29/21 09:44 Acetaminophen 325 Mg Tablet PO 650 mg Q6H PRN Administration Headache/Pain Mild Scale (1-3) Al Hydroxide/Mg Hydroxide 30 ml 04/26/21 22:03 Magnesium Hydrox/Alum Hydrox 30 Ml Oral.Susp PO Q6H PRN Heartburn/Nausea Benztropine Mesylate 0.5 mg 04/26/21 22:03 Benztropine Mesylate 0.5 Mg Tablet PO TID PRN Extrapyramidal Effects Clonidine HCl 0.1 mg 05/16/21 21:00 06/09/21 20:13 Clonidine Hcl 0.1 Mg Tablet PO 0.1 mg BEDTIME HERON Administration Protocol Diphenhydramine HCl 50 mg 04/26/21 22:03 Diphenhydramine Hcl 25 Mg Tablet PO Q4H PRN agitation Gabapentin 100 mg 06/10/21 21:00 Gabapentin 100 Mg Capsule PO BID [facility] Haloperidol 5 mg 04/26/21 22:03 Haloperidol 5 Mg Tablet PO Q4H PRN agitation Hydroxyzine HCl 25 mg 04/26/21 22:03 06/09/21 22:45 Hydroxyzine Hcl 25 Mg Tablet PO 25 mg TID PRN Administration Anxiety Magnesium Hydroxide 30 ml 04/26/21 22:03 Milk Of Magnesia 30 Ml Oral.Susp PO DAILY PRN Constipation Nicotine 21 mg 04/26/21 22:03 Nicotine 21 Mg Patch.Td24 TRANSDERMA DAILY PRN nocotine cessation Nicotine Polacrilex 4 mg 04/26/21 22:03 Nicotine Polacrilex 2 Mg Gum BUCCAL Q2H PRN Nicotine Cravings Olanzapine 5 mg 04/27/21 14:16 Olanzapine 5 Mg Tablet PO BID PRN mild-moderate agitation Olanzapine 10 mg 05/27/21 14:44 Olanzapine 10 Mg Vial IM DAILY PRN to be given if pt refuses pill per court order Olanzapine 20 mg 06/10/21 21:00 Olanzapine 10 Mg Tablet PO BEDTIME [facility] Pharmacy Consult 1 each 04/26/21 18:33 Consult Rx Perform Med Rec MISCELLANE ONCE PRN Consult order Trazodone HCl 50 mg 04/26/21 22:03 Trazodone Hcl 50 Mg Tablet PO BEDTIME PRN Insomnia Allergies Allergies Allergy/AdvReac Type Severity Reaction Status Date / Time Penicillins [PCN] Allergy Unknown UNKNOWN Verified 10/05/20 19:44 Assessment & Plan Assessment & Plan (1) Schizophrenia: Qualifiers: Schizophrenia type: unspecified Qualified Code(s): F20.9 - Schizophrenia, unspecified Status: Acute Code(s): F20.9 - Schizophrenia, unspecified Assessment and Plan: 26 yo male, long history of schizophrenia, agitation, substance use, with a lapsed Blane's order presents after stopping meds (reported last meds 04/23/21) disorganized and needing extra support/care in modulation of mood, psychotic sx. Pt appears to be making steady improvement with GUERRA and Olanzapine. He is pending possible transfer to [facility]. Reports to weekend coverage anergia, depressive sx and would like to make some changes in regime. PLAN: Section VIII Increase Olanzapine to 20 mg HS. PRN's to remain Discontinue Invega Sustenna. Gabapentin 200 mg a.m. 100 mg p.m. Clonidine 0.1 mg HS to address blood pressure elevations, possible increase as pt running some high numbers at times 151/72;141/81. [facility] Application for longer term hospitalization pending~ 60 days Encourage GED prep when pt has free time to assist him in structuring time, beginning to work toward his goals. Labs completed 05/22 are WNL. Pt responding to the current plan of care. Await [facility] decision as by history, discharge to community precipitates immediate relapse with substance use, non compliance with medications and placing self in danger by returning to the streets. Greater than 50% of the session was spent on counseling and/or coordination of care Patient educated on: medication risk/benefits and therapeutic strategies Informed Consent: understands and further education needed Reason for contiued inpatient stay Substantial Risk for: harm to self, harm to others, inability to function and rapid decompensation
[2021-06-10 18:00] VITALS: BP 119/66; PULSE 55; RESP 16; TEMP 36.7; O2SAT 96
[2021-06-10 20:07] VITALS: BP 153/65; PULSE 77
[2021-06-10] MEDS: Gabapentin 100 MG CAPSULE PO (20:07)
[2021-06-10] MEDS: cloNIDine HCL 0.1 MG TABLET PO (20:07)
[2021-06-10] MEDS: OLANZapine 10 MG TABLET 20 MG PO (20:08)
[2021-06-11] MEDS: Gabapentin 100 MG CAPSULE 200 MG PO (08:38)
--- NOTE | 2021-06-11 11:05 | P.PNPSI_ITS ---
Subjective Subjective Date of Service: 06/11/21 Reason For Visit: Schizophrenia Subjective Notes: Section 8 Healthcare Proxy: No Guardianship: No Medical Problems Affecting Mental Status: No Interim History: Reports feeling tired today s/p requested medication changes. Will monitor for ongoing sedation. Currently he reports he does not want to consider antidepressant trial for sx of depression. Wanting information regarding when he can be transitioned to [facility]. Medication Compliance: Yes Side effects from medications: Yes (day 1 of change-feeling tired he reports.) Attending Groups: No Review of Systems Reports behavioral changes Psychiatric: Reports behavioral changes, Reports depression, Reports difficulty concentrating, Reports anhedonia, Reports homicidal ideation (denies) and Reports suicidal ideation (denies) Mental Status Exam Mental Status Exam Patient Appearance: Fatigued Patient Orientation: Person, Place, Time and Situation Level of Consciousness: Awake and Sedated Patient Behavior: Cooperative Mood Description: Constricted Affect Description: Flat Patient Cognition Impaired: Yes Ability to Follow Directions: Fair Speech Pattern: Spontaneous Speech and Soft-Spoken Memory Description: Remote Impaired and Episodic Impaired Hallucinations: Auditory Delusions: Paranoid Ideation Thought Process: Distracted Thought Content: positive for Circumstantial, positive for Tangential, positive for Suicidal Ideation (denies) and positive for Homicidal Ideation (denies) Depressive Symptoms: Sleeping More Than Usual, Increased Fatigue, Thoughts of /Suicide (denies), Low Self Esteem, Loss of Energy and Difficulty Concentrating Judgement: Fair Diagnostics Vital Signs (24Hr): Vital Signs - 24 hr 06/10/21 18:00 06/10/21 20:07 Temperature 98.1 F Pulse Rate 55 77 Respiratory Rate 16 Blood Pressure 119/66 153/65 H Pulse Oximetry 96 Body Mass Index 29.2 Labs Results: 05/22/21 14:56 05/22/21 14:56 Medications Medications Current Medications Generic Name Dose Route Start Last Admin Trade Name Freq PRN Reason Stop Dose Admin Acetaminophen 650 mg 04/26/21 22:03 04/29/21 09:44 Acetaminophen 325 Mg Tablet PO 650 mg Q6H PRN Administration Headache/Pain Mild Scale (1-3) Al Hydroxide/Mg Hydroxide 30 ml 04/26/21 22:03 Magnesium Hydrox/Alum Hydrox 30 Ml Oral.Susp PO Q6H PRN Heartburn/Nausea Benztropine Mesylate 0.5 mg 04/26/21 22:03 Benztropine Mesylate 0.5 Mg Tablet PO TID PRN Extrapyramidal Effects Clonidine HCl 0.1 mg 05/16/21 21:00 06/10/21 20:07 Clonidine Hcl 0.1 Mg Tablet PO 0.1 mg BEDTIME HERON Administration Protocol Diphenhydramine HCl 50 mg 04/26/21 22:03 Diphenhydramine Hcl 25 Mg Tablet PO Q4H PRN agitation Gabapentin 100 mg 06/10/21 21:00 06/10/21 20:07 Gabapentin 100 Mg Capsule PO 100 mg BEDTIME HERON Administration Gabapentin 200 mg 06/11/21 09:00 06/11/21 08:38 Gabapentin 100 Mg Capsule PO 200 mg DAILY HERON Administration Hydroxyzine HCl 25 mg 04/26/21 22:03 06/09/21 22:45 Hydroxyzine Hcl 25 Mg Tablet PO 25 mg TID PRN Administration Anxiety Magnesium Hydroxide 30 ml 04/26/21 22:03 Milk Of Magnesia 30 Ml Oral.Susp PO DAILY PRN Constipation Nicotine 21 mg 04/26/21 22:03 Nicotine 21 Mg Patch.Td24 TRANSDERMA DAILY PRN nocotine cessation Nicotine Polacrilex 4 mg 04/26/21 22:03 Nicotine Polacrilex 2 Mg Gum BUCCAL Q2H PRN Nicotine Cravings Olanzapine 5 mg 04/27/21 14:16 Olanzapine 5 Mg Tablet PO BID PRN mild-moderate agitation Olanzapine 20 mg 06/10/21 21:00 06/10/21 20:08 Olanzapine 10 Mg Tablet PO 20 mg BEDTIME HERON Administration Olanzapine 20 mg 06/10/21 15:53 Olanzapine 10 Mg Vial IM BEDTIME PRN to be given if pt refuses PO per court order Pharmacy Consult 1 each 04/26/21 18:33 Consult Rx Perform Med Rec MISCELLANE ONCE PRN Consult order Trazodone HCl 50 mg 04/26/21 22:03 Trazodone Hcl 50 Mg Tablet PO BEDTIME PRN Insomnia Allergies Allergies Allergy/AdvReac Type Severity Reaction Status Date / Time Penicillins [PCN] Allergy Unknown UNKNOWN Verified 10/05/20 19:44 Assessment & Plan Assessment & Plan (1) Schizophrenia: Qualifiers: Schizophrenia type: unspecified Qualified Code(s): F20.9 - Schizophrenia, unspecified Status: Acute Code(s): F20.9 - Schizophrenia, unspecified Assessment and Plan: 26 yo male, long history of schizophrenia, agitation, substance use, with a lapsed Blane's order presents after stopping meds (reported last meds 04/23/21) disorganized and needing extra support/care in modulation of mood, psychotic sx. Pt appears to be making steady improvement with GUERRA and Olanzapine. He is pending possible transfer to [facility]. Reports to weekend coverage anergia, depressive sx and would like to make some changes in regime. PLAN: Section VIII Continue Olanzapine to 20 mg HS. PRN's to remain Discontinue Invega Sustenna. Gabapentin 200 mg a.m. 100 mg p.m. Clonidine 0.1 mg HS to address blood pressure elevations, possible increase as pt running some high numbers at times 151/72;141/81. [facility] Application for longer term hospitalization pending~ 60 days Encourage GED prep when pt has free time to assist him in structuring time, beginning to work toward his goals. Labs completed 05/22 are WNL. Pt responding to the current plan of care. Await [facility] decision as by history, discharge to community precipitates immediate relapse with substance use, non compliance with medications and placing self in danger by returning to the streets. Greater than 50% of the session was spent on counseling and/or coordination of care Reason for contiued inpatient stay Substantial Risk for: harm to self, harm to others, inability to function and r apid decompensation
[2021-06-11 18:00] VITALS: BP 158/80; PULSE 80; TEMP 36.6
[2021-06-11] MEDS: OLANZapine 10 MG TABLET 20 MG PO (20:48)
[2021-06-11] MEDS: Gabapentin 100 MG CAPSULE PO (20:48)
[2021-06-11 20:49] VITALS: BP 158/80; PULSE 80
[2021-06-11] MEDS: cloNIDine HCL 0.1 MG TABLET PO (20:49)
[2021-06-12 06:39] VITALS: BP 139/82; PULSE 59; RESP 16; TEMP 36.2; O2SAT 97
[2021-06-12] MEDS: Gabapentin 100 MG CAPSULE 200 MG PO (08:40)
--- NOTE | 2021-06-12 13:10 | HO.PSYCHPN ---
Subjective Subjective Date of Service: 06/12/21 Reason For Visit: Schizophrenia Review of Systems Freedom reports he is tolerating medication changes and is feeling no adverse effects. Review of Systems Review of Systems Yes all other systems are reviewed and are negative Constitutional: Reports no additional constitutional complaints Eyes: Reports no additional eye complaints Cardiovascular: Reports no additional cardiovascular complaints Respiratory: Reports no additional respiratory complaints Gastrointestinal: Reports no additional gastrointestinal complaints Genitourinary: Reports no additional male genitourinary complaints Musculoskeletal: Reports no additional musculoskeletal complaints Psychiatric: Reports difficulty concentrating and Reports suicidal ideation (denies) Endocrine: Reports no additional endocrine complaints Hematologic/Lymphatic: Reports no additional hematologic/lymphatic complaints Allergic/Immunologic: Reports no additional allergic/immunologic complaints Mental Status Exam Mental Status Exam Patient Appearance: Appropriate Patient Orientation: Person, Place, Time and Situation Level of Consciousness: Awake and Alert Patient Behavior: Talkative, Passive and Good Eye Contact Mood Description: Constricted Affect Description: Constricted Patient Cognition Impaired: No Ability to Follow Directions: Good Speech Pattern: Spontaneous Speech and Soft-Spoken Memory Description: Remote Impaired and Episodic Impaired Hallucinations: None (denies) Delusions: Not Present Thought Content: positive for [place] and positive for Goal Oriented Depressive Symptoms: Diff. Making Decisions Judgement: Fair Diagnostics Vital Signs (24Hr): Vital Signs - 24 hr 06/11/21 18:00 06/11/21 20:49 06/12/21 06:39 Temperature 97.8 F 97.1 F Pulse Rate 80 80 59 Respiratory Rate 16 Blood Pressure 158/80 H 158/80 H 139/82 Pulse Oximetry 97 Body Mass Index 29.2 Labs Results: 05/22/21 14:56 05/22/21 14:56 Medications Medications Current Medications Generic Name Dose Route Start Last Admin Trade Name Freq PRN Reason Stop Dose Admin Acetaminophen 650 mg 04/26/21 22:03 04/29/21 09:44 Acetaminophen 325 Mg Tablet PO 650 mg Q6H PRN Administration Headache/Pain Mild Scale (1-3) Al Hydroxide/Mg Hydroxide 30 ml 04/26/21 22:03 Magnesium Hydrox/Alum Hydrox 30 Ml Oral.Susp PO Q6H PRN Heartburn/Nausea Benztropine Mesylate 0.5 mg 04/26/21 22:03 Benztropine Mesylate 0.5 Mg Tablet PO TID PRN Extrapyramidal Effects Clonidine HCl 0.1 mg 05/16/21 21:00 06/11/21 20:49 Clonidine Hcl 0.1 Mg Tablet PO 0.1 mg BEDTIME HERON Administration Protocol Diphenhydramine HCl 50 mg 04/26/21 22:03 Diphenhydramine Hcl 25 Mg Tablet PO Q4H PRN agitation Gabapentin 100 mg 06/10/21 21:00 06/11/21 20:48 Gabapentin 100 Mg Capsule PO 100 mg BEDTIME HERON Administration Gabapentin 200 mg 06/11/21 09:00 06/12/21 08:40 Gabapentin 100 Mg Capsule PO 200 mg DAILY HERON Administration Hydroxyzine HCl 25 mg 04/26/21 22:03 06/09/21 22:45 Hydroxyzine Hcl 25 Mg Tablet PO 25 mg TID PRN Administration Anxiety Magnesium Hydroxide 30 ml 04/26/21 22:03 Milk Of Magnesia 30 Ml Oral.Susp PO DAILY PRN Constipation Nicotine 21 mg 04/26/21 22:03 Nicotine 21 Mg Patch.Td24 TRANSDERMA DAILY PRN nocotine cessation Nicotine Polacrilex 4 mg 04/26/21 22:03 Nicotine Polacrilex 2 Mg Gum BUCCAL Q2H PRN Nicotine Cravings Olanzapine 5 mg 04/27/21 14:16 Olanzapine 5 Mg Tablet PO BID PRN mild-moderate agitation Olanzapine 20 mg 06/10/21 21:00 06/11/21 20:48 Olanzapine 10 Mg Tablet PO 20 mg BEDTIME HERON Administration Olanzapine 20 mg 06/10/21 15:53 Olanzapine 10 Mg Vial IM BEDTIME PRN to be given if pt refuses PO per court order Pharmacy Consult 1 each 04/26/21 18:33 Consult Rx Perform Med Rec MISCELLANE ONCE PRN Consult order Trazodone HCl 50 mg 04/26/21 22:03 Trazodone Hcl 50 Mg Tablet PO BEDTIME PRN Insomnia Allergies Allergies Allergy/AdvReac Type Severity Reaction Status Date / Time Penicillins [PCN] Allergy Unknown UNKNOWN Verified 10/05/20 19:44 Assessment & Plan Assessment & Plan (1) Schizophrenia: Qualifiers: Schizophrenia type: unspecified Qualified Code(s): F20.9 - Schizophrenia, unspecified Status: Acute Code(s): F20.9 - Schizophrenia, unspecified Assessment and Plan: 26 yo male, long history of schizophrenia, agitation, substance use, with a lapsed Blane's order presents after stopping meds (reported last meds 04/23/21) disorganized and needing extra support/care in modulation of mood, psychotic sx. Pt appears to be making steady improvement with GUERRA and Olanzapine, however, he prefers to use just Olanzapine po for his main agent for treatment. He is pending possible transfer to [facility]. Reports to weekend coverage anergia, depressive sx and would like to make some changes in regime. PLAN: Section VIII Continue Olanzapine 20 mg HS. PRN's to remain Discontinue Invega Sustenna. Continue Gabapentin 200 mg a.m. 100 mg p.m. Clonidine 0.1 mg HS to address blood pressure elevations, possible increase as pt running some high numbers at times [facility] Application for longer term hospitalization pending~ 60 days Encourage GED prep when pt has free time to assist him in structuring time, beginning to work toward his goals. Pt reports he is working on this, and medicine changes he has requested he believes will assist him in improved concentration. Labs completed 05/22 are WNL. Pt responding to the current plan of care. Await [facility] decision as by history, discharge to community precipitates immediate relapse with substance use, non compliance with medications and placing self in danger by returning to the streets. Freedom is aware that this is our thought process and although he disagrees, he [facility]. Assessment and Plan: Continue current regime. Greater than 50% of the session was spent on counseling and/or coordination of care Patient educated on: therapeutic strategies and other (treatment planning) Informed Consent: understands and further education needed Reason for contiued inpatient stay Substantial Risk for: harm to self, harm to others, inability to function and rapid decompensation
[2021-06-12 17:30] VITALS: BP 130/70; PULSE 78; RESP 18; TEMP 36.5; O2SAT 97
[2021-06-12] MEDS: Gabapentin 100 MG CAPSULE PO (21:25)
[2021-06-12] MEDS: OLANZapine 10 MG TABLET 20 MG PO (21:25)
[2021-06-12 21:26] VITALS: BP 128/67; PULSE 63
[2021-06-12] MEDS: cloNIDine HCL 0.1 MG TABLET PO (21:26)
[2021-06-13] MEDS: Gabapentin 100 MG CAPSULE 200 MG PO (08:40)
--- NOTE | 2021-06-13 13:21 | P.PNPSI_ITS ---
Subjective Subjective Date of Service: 06/13/21 Reason For Visit: Schizophrenia Subjective Notes: Section 8 Healthcare Proxy: No Guardianship: No Medical Problems Affecting Mental Status: No Interim History: Pt in bed for most of the day. Reversing sleep cycle. Denies current issues, states he is more of a evening/night person. Up for meals, up and observed socializing at the ending of the day. Medication Compliance: Yes Side effects from medications: Yes (? sleep cycle reversal) Attending Groups: Intermittent Review of Systems Acute medical concerns: No Medical Review of Systems: unchanged Review of Systems Review of Systems Yes Unobtainable due to mental status Constitutional: Reports no additional constitutional complaints Eyes: Reports no additional eye complaints Cardiovascular: Reports no additional cardiovascular complaints Respiratory: Reports no additional respiratory complaints Gastrointestinal: Reports no additional gastrointestinal complaints Genitourinary: Reports no additional male genitourinary complaints Musculoskeletal: Reports no additional musculoskeletal complaints Reports behavioral changes Psychiatric: Reports no additional psychiatric complaints, Reports abnormal sleep pattern, Reports behavioral changes and Reports auditory hallucinations Endocrine: Reports no additional endocrine complaints Mental Status Exam Mental Status Exam Patient Appearance: Fatigued, Disheveled and Unkempt Patient Orientation: Person, Place, Time and Situation Level of Consciousness: Alert Patient Behavior: Passive, Avoidant and Fatigued Mood Description: Withdrawn Affect Description: Constricted Patient Cognition Impaired: Yes Ability to Follow Directions: Good Speech Pattern: Spontaneous Speech Memory Description: Episodic Impaired Hallucinations: Auditory Delusions: Not Present Thought Process: Evasive Thought Content: positive for [place] and positive for Circumstantial Depressive Symptoms: Difficulty Sleeping, Sleeping More Than Usual and Low Self Esteem Judgement: Fair Diagnostics Vital Signs (24Hr): Vital Signs - 24 hr 06/12/21 17:30 06/12/21 21:26 Temperature 97.7 F Pulse Rate 78 63 Respiratory Rate 18 Blood Pressure 130/70 128/67 Pulse Oximetry 97 Body Mass Index 29.2 Labs Results: 05/22/21 14:56 05/22/21 14:56 Medications Medications Current Medications Generic Name Dose Route Start Last Admin Trade Name Freq PRN Reason Stop Dose Admin Acetaminophen 650 mg 04/26/21 22:03 04/29/21 09:44 Acetaminophen 325 Mg Tablet PO 650 mg Q6H PRN Administration Headache/Pain Mild Scale (1-3) Al Hydroxide/Mg Hydroxide 30 ml 04/26/21 22:03 Magnesium Hydrox/Alum Hydrox 30 Ml Oral.Susp PO Q6H PRN Heartburn/Nausea Benztropine Mesylate 0.5 mg 04/26/21 22:03 Benztropine Mesylate 0.5 Mg Tablet PO TID PRN Extrapyramidal Effects Clonidine HCl 0.1 mg 05/16/21 21:00 06/12/21 21:26 Clonidine Hcl 0.1 Mg Tablet PO 0.1 mg BEDTIME HERON Administration Protocol Diphenhydramine HCl 50 mg 04/26/21 22:03 Diphenhydramine Hcl 25 Mg Tablet PO Q4H PRN agitation Gabapentin 100 mg 06/10/21 21:00 06/12/21 21:25 Gabapentin 100 Mg Capsule PO 100 mg BEDTIME HERON Administration Gabapentin 200 mg 06/11/21 09:00 06/13/21 08:40 Gabapentin 100 Mg Capsule PO 200 mg DAILY HERON Administration Hydroxyzine HCl 25 mg 04/26/21 22:03 06/09/21 22:45 Hydroxyzine Hcl 25 Mg Tablet PO 25 mg TID PRN Administration Anxiety Magnesium Hydroxide 30 ml 04/26/21 22:03 Milk Of Magnesia 30 Ml Oral.Susp PO DAILY PRN Constipation Nicotine 21 mg 04/26/21 22:03 Nicotine 21 Mg Patch.Td24 TRANSDERMA DAILY PRN nocotine cessation Nicotine Polacrilex 4 mg 04/26/21 22:03 Nicotine Polacrilex 2 Mg Gum BUCCAL Q2H PRN Nicotine Cravings Olanzapine 5 mg 04/27/21 14:16 Olanzapine 5 Mg Tablet PO BID PRN mild-moderate agitation Olanzapine 20 mg 06/10/21 21:00 06/12/21 21:25 Olanzapine 10 Mg Tablet PO 20 mg BEDTIME HERON Administration Olanzapine 20 mg 06/10/21 15:53 Olanzapine 10 Mg Vial IM BEDTIME PRN to be given if pt refuses PO per court order Pharmacy Consult 1 each 04/26/21 18:33 Consult Rx Perform Med Rec MISCELLANE ONCE PRN Consult order Trazodone HCl 50 mg 04/26/21 22:03 Trazodone Hcl 50 Mg Tablet PO BEDTIME PRN Insomnia Allergies Allergies Allergy/AdvReac Type Severity Reaction Status Date / Time Penicillins [PCN] Allergy Unknown UNKNOWN Verified 10/05/20 19:44 Assessment & Plan Assessment & Plan (1) Schizophrenia: Qualifiers: Schizophrenia type: unspecified Qualified Code(s): F20.9 - Schizophrenia, unspecified Status: Acute Code(s): F20.9 - Schizophrenia, unspecified Assessment and Plan: 26 yo male, long history of schizophrenia, agitation, substance use, with a laps ed Blane's order presents after stopping meds (reported last meds 04/23/21) disorganized and needing extra support/care in modulation of mood, psychotic sx. Pt appears to be making steady improvement with GUERRA and Olanzapine, however, he prefers to use just Olanzapine po for his main agent for treatment. He is pending possible transfer to [facility]. PLAN: Section VIII Continue Olanzapine 20 mg HS. PRN's to remain Discontinue Invega Sustenna. Continue Gabapentin 200 mg a.m. 100 mg p.m. Clonidine 0.1 mg HS to address blood pressure elevations, possible increase as pt running some high numbers at times [facility] Application for longer term hospitalization pending~ 60 days Encourage GED prep when pt has free time to assist him in structuring time, beginning to work toward his goals. Pt reports he is working on this, and medicine changes he has requested he believes will assist him in improved concentration. Labs completed 05/22 are WNL. Pt responding to the current plan of care. Await [facility] decision as by history, discharge to community precipitates immediate relapse with substance use, non compliance with medications and placing self in danger by returning to the streets. Freedom is aware that this is our thought process and although he disagrees, he [facility]. Assessment and Plan: As noted above. Greater than 50% of the session was spent on counseling and/or coordination of care Patient educated on: therapeutic strategies Informed Consent: further education needed Reason for contiued inpatient stay Substantial Risk for: harm to self, inability to function and rapid decompensation
[2021-06-13 18:00] VITALS: BP 133/67; PULSE 76; RESP 16; TEMP 36.3; O2SAT 96
[2021-06-13 21:22] VITALS: BP 138/77; PULSE 78
[2021-06-13] MEDS: Gabapentin 100 MG CAPSULE PO (21:22)
[2021-06-13] MEDS: cloNIDine HCL 0.1 MG TABLET PO (21:22)
[2021-06-13] MEDS: OLANZapine 10 MG TABLET 20 MG PO (21:22)
[2021-06-14 06:00] VITALS: BP 116/56; PULSE 66; RESP 18; TEMP 36.5; O2SAT 97
[2021-06-14] MEDS: Gabapentin 100 MG CAPSULE 200 MG PO (08:18)
--- NOTE | 2021-06-14 17:26 | P.PNPSI_ITS ---
Subjective Subjective Date of Service: 06/14/21 Reason For Visit: Schizophrenia Subjective Notes: Section 8 Healthcare Proxy: No Guardianship: No Medical Problems Affecting Mental Status: No Interim History: Denies issues with recent medication changes. No, these meds I know and they know me. They have always worked well and I feel good, but I need to cut my hair. Medication Compliance: Yes Side effects from medications: No Attending Groups: Intermittent Review of Systems Acute medical concerns: No Medical Review of Systems: unchanged Review of Systems Reports behavioral changes Psychiatric: Reports abnormal sleep pattern (cycle reversal), Reports behavioral changes, Reports difficulty concentrating, Reports irritability and Reports suicidal ideation (denies) Mental Status Exam Mental Status Exam Patient Appearance: Appropriate Patient Orientation: Person, Place, Time and Situation Level of Consciousness: Alert Patient Behavior: Talkative, Distractible and Good Eye Contact Mood Description: Calm and Withdrawn Affect Description: Calm Patient Cognition Impaired: Yes Ability to Follow Directions: Fair Speech Pattern: Monotone, Spontaneous Speech and Soft-Spoken Memory Description: Episodic Impaired Hallucinations: Auditory Delusions: Present Perceptual Disturbances: Derealization Thought Process: Distracted and Evasive Thought Content: positive for [place], positive for [place], positive for Goal Oriented and positive for Suicidal Ideation (denies) Depressive Symptoms: Difficulty Sleeping (change of sleeping cycle) and Difficulty Concentrating Judgement: Fair Diagnostics Vital Signs (24Hr): Vital Signs - 24 hr 06/13/21 18:00 06/13/21 21:22 06/14/21 06:00 Temperature 97.4 F 97.7 F Pulse Rate 76 78 66 Respiratory Rate 16 18 Blood Pressure 133/67 138/77 116/56 L Pulse Oximetry 96 97 Body Mass Index 29.2 Labs Results: 05/22/21 14:56 05/22/21 14:56 Medications Medications Current Medications Generic Name Dose Route Start Last Admin Trade Name Freq PRN Reason Stop Dose Admin Acetaminophen 650 mg 04/26/21 22:03 04/29/21 09:44 Acetaminophen 325 Mg Tablet PO 650 mg Q6H PRN Administration Headache/Pain Mild Scale (1-3) Al Hydroxide/Mg Hydroxide 30 ml 04/26/21 22:03 Magnesium Hydrox/Alum Hydrox 30 Ml Oral.Susp PO Q6H PRN Heartburn/Nausea Benztropine Mesylate 0.5 mg 04/26/21 22:03 Benztropine Mesylate 0.5 Mg Tablet PO TID PRN Extrapyramidal Effects Clonidine HCl 0.1 mg 05/16/21 21:00 06/13/21 21:22 Clonidine Hcl 0.1 Mg Tablet PO 0.1 mg BEDTIME HERON Administration Protocol Diphenhydramine HCl 50 mg 04/26/21 22:03 Diphenhydramine Hcl 25 Mg Tablet PO Q4H PRN agitation Gabapentin 100 mg 06/10/21 21:00 06/13/21 21:22 Gabapentin 100 Mg Capsule PO 100 mg BEDTIME HERON Administration Gabapentin 200 mg 06/11/21 09:00 06/14/21 08:18 Gabapentin 100 Mg Capsule PO 200 mg DAILY HERON Administration Hydroxyzine HCl 25 mg 04/26/21 22:03 06/09/21 22:45 Hydroxyzine Hcl 25 Mg Tablet PO 25 mg TID PRN Administration Anxiety Magnesium Hydroxide 30 ml 04/26/21 22:03 Milk Of Magnesia 30 Ml Oral.Susp PO DAILY PRN Constipation Nicotine 21 mg 04/26/21 22:03 Nicotine 21 Mg Patch.Td24 TRANSDERMA DAILY PRN nocotine cessation Nicotine Polacrilex 4 mg 04/26/21 22:03 Nicotine Polacrilex 2 Mg Gum BUCCAL Q2H PRN Nicotine Cravings Olanzapine 5 mg 04/27/21 14:16 Olanzapine 5 Mg Tablet PO BID PRN mild-moderate agitation Olanzapine 20 mg 06/10/21 21:00 06/13/21 21:22 Olanzapine 10 Mg Tablet PO 20 mg BEDTIME HERON Administration Olanzapine 20 mg 06/10/21 15:53 Olanzapine 10 Mg Vial IM BEDTIME PRN to be given if pt refuses PO per court order Pharmacy Consult 1 each 04/26/21 18:33 Consult Rx Perform Med Rec MISCELLANE ONCE PRN Consult order Trazodone HCl 50 mg 04/26/21 22:03 Trazodone Hcl 50 Mg Tablet PO BEDTIME PRN Insomnia Allergies Allergies Allergy/AdvReac Type Severity Reaction Status Date / Time Penicillins [PCN] Allergy Unknown UNKNOWN Verified 10/05/20 19:44 Assessment & Plan Assessment & Plan (1) Schizophrenia: Qualifiers: Schizophrenia type: unspecified Qualified Code(s): F20.9 - Schizophrenia, unspecified Status: Acute Code(s): F20.9 - Schizophrenia, unspecified Assessment and Plan: 26 yo male, long history of schizophrenia, agitation, substance use, with a lapsed Blane's order presents after stopping meds (reported last meds 04/23/21) disorganized and needing extra support/care in modulation of mood, psychotic sx. Pt appears to be making steady improvement with GUERRA and Olanzapine, however, he prefers to use just Olanzapine po for his main agent for treatment. He is pending possible transfer to [facility]. PLAN: Section VIII Continue Olanzapine 20 mg HS. PRN's to remain Discontinue Invega Sustenna. Continue Gabapentin 200 mg a.m. 100 mg p.m. Clonidine 0.1 mg HS to address blood pressure elevations, possible increase as pt running some high numbers at times [facility] Application for longer term hospitalization pending~ 60 days Encourage GED prep when pt has free time to assist him in structuring time, beginning to work toward his goals. Pt reports he is working on this, and medicine changes he has requested he believes will assist him in improved concentration. Labs completed 05/22 are WNL. Pt responding to the current plan of care. Await [facility] decision as by history, discharge to community precipitates immediate relapse with substance use, non compliance with medications and placing self in danger by returning to the streets. Freedom is aware that this is our thought process and although he disagrees, he accepts that [facility] admission will most likely be his next intervention. Assessment and Plan: As noted above. Greater than 50% of the session was spent on counseling and/or coordination of care Reason for contiued inpatient stay Substantial Risk for: harm to self, harm to others, inability to function and rapid decompensation
[2021-06-14 21:15] VITALS: BP 140/76; PULSE 81; RESP 18; TEMP 36.8; O2SAT 95
[2021-06-14] MEDS: Gabapentin 100 MG CAPSULE PO (21:18)
[2021-06-14] MEDS: OLANZapine 10 MG TABLET 20 MG PO (21:18)
[2021-06-14 21:19] VITALS: BP 140/76; PULSE 81
[2021-06-14] MEDS: cloNIDine HCL 0.1 MG TABLET PO (21:19)
[2021-06-15] MEDS: Gabapentin 100 MG CAPSULE 200 MG PO (13:08)
--- NOTE | 2021-06-15 14:34 | HO.PSYCHPN ---
Subjective Subjective Date of Service: 06/15/21 Reason For Visit: Schizophrenia Subjective Notes: Section 8 Medical Problems Affecting Mental Status: No Interim History: Denies issues with recent medication changes. No, these meds I know and they know me. They have always worked well and I feel good, but I need to cut my hair. Medication Compliance: Yes Side effects from medications: No Review of Systems Acute medical concerns: No Medical Review of Systems: unchanged Review of Systems Review of Systems Unremarkable Yes all other systems are reviewed and are negative Psychiatric: Reports no additional psychiatric complaints, Reports abnormal sleep pattern (cycle reversal), Reports anxiety, Reports depression, Reports difficulty concentrating, Reports auditory hallucinations, Reports hopelessness, Reports irritability, Reports anhedonia, Reports mood swings, Reports paranoia, Reports visual hallucinations, Reports hallucinations, Reports homicidal ideation (denies) and Reports suicidal ideation (denies) Mental Status Exam Mental Status Exam Narrative: in bed. Some irritability. Organized. Reports feeling depressed. No SI. No HI. No overt psychosis. Insight and judgment is limited Patient Appearance: Appropriate Patient Orientation: Person, Place, Time and Situation Level of Consciousness: Alert Patient Behavior: Talkative, Distractible and Good Eye Contact Mood Description: Calm and Withdrawn Affect Description: Calm Patient Cognition Impaired: Yes Ability to Follow Directions: Fair Speech Pattern: Monotone, Spontaneous Speech and Soft-Spoken Memory Description: Episodic Impaired Delusions: Paranoid Ideation and Bizarre Thought Process: Evasive Thought Content: positive for Circumstantial, positive for [place] of [place], negative for Suicidal Ideation or negative for Homicidal Ideation Judgement: Poor Diagnostics Vital Signs (24Hr): Vital Signs - 24 hr 06/14/21 21:15 06/14/21 21:19 Temperature 98.2 F Pulse Rate 81 81 Respiratory Rate 18 Blood Pressure 140/76 H 140/76 H Pulse Oximetry 95 Body Mass Index 29.2 Labs Results: 05/22/21 14:56 05/22/21 14:56 Medications Medications Current Medications Generic Name Dose Route Start Last Admin Trade Name Freq PRN Reason Stop Dose Admin Acetaminophen 650 mg 04/26/21 22:03 04/29/21 09:44 Acetaminophen 325 Mg Tablet PO 650 mg Q6H PRN Administration Headache/Pain Mild Scale (1-3) Al Hydroxide/Mg Hydroxide 30 ml 04/26/21 22:03 Magnesium Hydrox/Alum Hydrox 30 Ml Oral.Susp PO Q6H PRN Heartburn/Nausea Benztropine Mesylate 0.5 mg 04/26/21 22:03 Benztropine Mesylate 0.5 Mg Tablet PO TID PRN Extrapyramidal Effects Clonidine HCl 0.1 mg 05/16/21 21:00 06/14/21 21:19 Clonidine Hcl 0.1 Mg Tablet PO 0.1 mg BEDTIME HERON Administration Protocol Diphenhydramine HCl 50 mg 04/26/21 22:03 Diphenhydramine Hcl 25 Mg Tablet PO Q4H PRN agitation Gabapentin 100 mg 06/10/21 21:00 06/14/21 21:18 Gabapentin 100 Mg Capsule PO 100 mg BEDTIME HERON Administration Gabapentin 200 mg 06/11/21 09:00 06/15/21 13:08 Gabapentin 100 Mg Capsule PO 200 mg DAILY HERON Administration Hydroxyzine HCl 25 mg 04/26/21 22:03 06/09/21 22:45 Hydroxyzine Hcl 25 Mg Tablet PO 25 mg TID PRN Administration Anxiety Magnesium Hydroxide 30 ml 04/26/21 22:03 Milk Of Magnesia 30 Ml Oral.Susp PO DAILY PRN Constipation Nicotine 21 mg 04/26/21 22:03 Nicotine 21 Mg Patch.Td24 TRANSDERMA DAILY PRN nocotine cessation Nicotine Polacrilex 4 mg 04/26/21 22:03 Nicotine Polacrilex 2 Mg Gum BUCCAL Q2H PRN Nicotine Cravings Olanzapine 5 mg 04/27/21 14:16 Olanzapine 5 Mg Tablet PO BID PRN mild-moderate agitation Olanzapine 20 mg 06/10/21 21:00 06/14/21 21:18 Olanzapine 10 Mg Tablet PO 20 mg BEDTIME HERON Administration Olanzapine 20 mg 06/10/21 15:53 Olanzapine 10 Mg Vial IM BEDTIME PRN to be given if pt refuses PO per court order Pharmacy Consult 1 each 04/26/21 18:33 Consult Rx Perform Med Rec MISCELLANE ONCE PRN Consult order Trazodone HCl 50 mg 04/26/21 22:03 Trazodone Hcl 50 Mg Tablet PO BEDTIME PRN Insomnia Allergies Allergies Allergy/AdvReac Type Severity Reaction Status Date / Time Penicillins [PCN] Allergy Unknown UNKNOWN Verified 10/05/20 19:44 Assessment & Plan Assessment & Plan (1) Schizophrenia: Qualifiers: Schizophrenia type: unspecified Qualified Code(s): F20.9 - Schizophrenia, unspecified Status: Acute Code(s): F20.9 - Schizophrenia, unspecified Assessment and Plan: 26 yo male, long history of schizophrenia, agitation, substance use, with a lapsed Blane[facility] order presents after stopping meds (reported last meds 04/23/21) disorganized and needing extra support/care in modulation of mood, psychotic sx. Pt appears to be making steady improvement with GUERRA and Olanzapine, however, he prefers to use just Olanzapine po for his main agent for treatment. He is pending possible transfer to [facility]. PLAN: Section VIII Continue Olanzapine 20 mg HS. PRN's to remain Discontinue Invega Sustenna. Continue Gabapentin 200 mg a.m. 100 mg p.m. Clonidine 0.1 mg HS to address blood pressure elevations, possible increase as pt running some high numbers at times [facility] Application for longer term hospitalization pending~ 60 days Encourage GED prep when pt has free time to assist him in structuring time, beginning to work toward his goals. Pt reports he is working on this, and medicine changes he has requested he believes will assist him in improved concentration. Labs completed 05/22 are WNL. Pt responding to the current plan of care. Await [facility] decision as by history, discharge to community precipitates immediate relapse with substance use, non compliance with medications and placing self in danger by returning to the streets. Freedom is aware that this is our thought process and although he disagrees, he accepts that [facility] admission will most likely be his next intervention. No change to the above plan Assessment and Plan: As noted above. Greater than 50% of the session was spent on counseling and/or coordination of care Patient educated on: diagnosis, medication risk/benefits and substance abuse Informed Consent: does not understand Reason for contiued inpatient stay Substantial Risk for: inability to function and rapid decompensation
--- NOTE | 2021-06-15 14:38 | P.PNPSI_ITS ---
Subjective Subjective Date of Service: 06/15/21 Reason For Visit: Schizophrenia Interim History: Denies issues with recent medication changes. No, these meds I know and they know me. They have always worked well and I feel good, but I need to cut my hair. Review of Systems Review of Systems Unremarkable Yes all other systems are reviewed and are negative and Unobtainable due to mental status Constitutional: Reports no additional constitutional complaints Eyes: Reports no additional eye complaints Cardiovascular: Reports no additional cardiovascular complaints Respiratory: Reports no additional respiratory complaints Gastrointestinal: Reports no additional gastrointestinal complaints Genitourinary: Reports no additional male genitourinary complaints Musculoskeletal: Reports no additional musculoskeletal complaints Reports behavioral changes and Reports confusion Psychiatric: Reports no additional psychiatric complaints, Reports abnormal sleep pattern (cycle reversal), Reports anxiety, Reports behavioral changes, Reports confusion, Reports depression, Reports difficulty concentrating, Reports auditory hallucinations, Reports hopelessness, Reports irritability, Reports anhedonia, Reports mood swings, Reports paranoia, Reports visual hallucinations, Reports hallucinations, Reports homicidal ideation (denies) and Reports suicidal ideation (denies) Endocrine: Reports no additional endocrine complaints Hematologic/Lymphatic: Reports no additional hematologic/lymphatic complaints Allergic/Immunologic: Reports no additional allergic/immunologic complaints Mental Status Exam Mental Status Exam Narrative: in bed. Some irritability. Organized. Reports feeling depressed. No SI. No HI. No overt psychosis. Insight and judgment is limited Patient Appearance: Appropriate Patient Orientation: Person, Place, Time and Situation Level of Consciousness: Alert Patient Behavior: Talkative, Distractible and Good Eye Contact Mood Description: Calm and Withdrawn Affect Description: Calm Patient Cognition Impaired: Yes Ability to Follow Directions: Fair Speech Pattern: Monotone, Spontaneous Speech and Soft-Spoken Memory Description: Episodic Impaired Diagnostics Vital Signs (24Hr): Vital Signs - 24 hr 06/14/21 21:15 06/14/21 21:19 Temperature 98.2 F Pulse Rate 81 81 Respiratory Rate 18 Blood Pressure 140/76 H 140/76 H Pulse Oximetry 95 Body Mass Index 29.2 Labs Results: 05/22/21 14:56 05/22/21 14:56 Medications Medications Current Medications Generic Name Dose Route Start Last Admin Trade Name Freq PRN Reason Stop Dose Admin Acetaminophen 650 mg 04/26/21 22:03 04/29/21 09:44 Acetaminophen 325 Mg Tablet PO 650 mg Q6H PRN Administration Headache/Pain Mild Scale (1-3) Al Hydroxide/Mg Hydroxide 30 ml 04/26/21 22:03 Magnesium Hydrox/Alum Hydrox 30 Ml Oral.Susp PO Q6H PRN Heartburn/Nausea Benztropine Mesylate 0.5 mg 04/26/21 22:03 Benztropine Mesylate 0.5 Mg Tablet PO TID PRN Extrapyramidal Effects Clonidine HCl 0.1 mg 05/16/21 21:00 06/14/21 21:19 Clonidine Hcl 0.1 Mg Tablet PO 0.1 mg BEDTIME HERON Administration Protocol Diphenhydramine HCl 50 mg 04/26/21 22:03 Diphenhydramine Hcl 25 Mg Tablet PO Q4H PRN agitation Gabapentin 100 mg 06/10/21 21:00 06/14/21 21:18 Gabapentin 100 Mg Capsule PO 100 mg BEDTIME HERON Administration Gabapentin 200 mg 06/11/21 09:00 06/15/21 13:08 Gabapentin 100 Mg Capsule PO 200 mg DAILY HERON Administration Hydroxyzine HCl 25 mg 04/26/21 22:03 06/09/21 22:45 Hydroxyzine Hcl 25 Mg Tablet PO 25 mg TID PRN Administration Anxiety Magnesium Hydroxide 30 ml 04/26/21 22:03 Milk Of Magnesia 30 Ml Oral.Susp PO DAILY PRN Constipation Nicotine 21 mg 04/26/21 22:03 Nicotine 21 Mg Patch.Td24 TRANSDERMA DAILY PRN nocotine cessation Nicotine Polacrilex 4 mg 04/26/21 22:03 Nicotine Polacrilex 2 Mg Gum BUCCAL Q2H PRN Nicotine Cravings Olanzapine 5 mg 04/27/21 14:16 Olanzapine 5 Mg Tablet PO BID PRN mild-moderate agitation Olanzapine 20 mg 06/10/21 21:00 06/14/21 21:18 Olanzapine 10 Mg Tablet PO 20 mg BEDTIME HERON Administration Olanzapine 20 mg 06/10/21 15:53 Olanzapine 10 Mg Vial IM BEDTIME PRN to be given if pt refuses PO per court order Pharmacy Consult 1 each 04/26/21 18:33 Consult Rx Perform Med Rec MISCELLANE ONCE PRN Consult order Trazodone HCl 50 mg 04/26/21 22:03 Trazodone Hcl 50 Mg Tablet PO BEDTIME PRN Insomnia Allergies Allergies Allergy/AdvReac Type Severity Reaction Status Date / Time Penicillins [PCN] Allergy Unknown UNKNOWN Verified 10/05/20 19:44 Assessment & Plan Assessment & Plan (1) Schizophrenia: Qualifiers: Schizophrenia type: unspecified Qualified Code(s): F20.9 - Schizophrenia, unspecified Status: Acute Code(s): F20.9 - Schizophrenia, unspecified Assessment and Plan: 26 yo male, long history of schizophrenia, agitation, substance use, with a lapsed [facility]ane's order presents after stopping meds (reported last meds 04/23/21) disorganized and needing extra support/care in modulation of mood, psychotic sx. Pt appears to be making steady improvement with GUERRA and Olanzapine, however, he prefers to use just Olanzapine po for his main agent for treatment. He is pending possible transfer to [facility]. PLAN: Section VIII Continue Olanzapine 20 mg HS. PRN's to remain Discontinue Invega Sustenna. Continue Gabapentin 200 mg a.m. 100 mg p.m. Clonidine 0.1 mg HS to address blood pressure elevations, possible increase as pt running some high numbers at times [facility] Application for longer term hospitalization pending~ 60 days Encourage GED prep when pt has free time to assist him in structuring time, beginning to work toward his goals. Pt reports he is working on this, and medicine changes he has requested he believes will assist him in improved co ncentration. Labs completed 05/22 are WNL. Pt responding to the current plan of care. Await [facility] decision as by history, discharge to community precipitates immediate relapse with substance use, non co mpliance with medications and placing self in danger by returning to the streets. Freedom is aware that this is our thought process and although he disagrees, he accepts that [facility] admission will most likely be his next intervention. No change to the above plan Assessment and Plan: As noted above. Greater than 50% of the session was spent on counseling and/or coordination of care
[2021-06-15] MEDS: hydrOXYzine HCL 25 MG TABLET PO ×2 (15:22→21:41)
[2021-06-15] MEDS: Gabapentin 100 MG CAPSULE PO (21:18)
[2021-06-15] MEDS: OLANZapine 10 MG TABLET 20 MG PO (21:18)
[2021-06-15 21:19] VITALS: BP 153/89; PULSE 89
[2021-06-15] MEDS: cloNIDine HCL 0.1 MG TABLET PO (21:19)
[2021-06-15 21:38] VITALS: BP 153/89; PULSE 89; RESP 18; TEMP 36.8; O2SAT 97
[2021-06-16] MEDS: Gabapentin 100 MG CAPSULE 200 MG PO (08:14)
[2021-06-16] MEDS: hydrOXYzine HCL 25 MG TABLET PO (10:42)
--- NOTE | 2021-06-16 16:15 | P.PNPSI_ITS ---
Subjective Subjective Date of Service: 06/16/21 Reason For Visit: Schizophrenia Subjective Notes: Section 8 Interim History: Freedom continues to be somewhat bizarre and dismissive. When asked about his medication he is able to say what they are and that they help. He is not able to say how they help. He says he takes them so other people can control his life and make decisions for him. He does not think there would be a problem if he were to stop them. Medication Compliance: Yes Side effects from medications: No Attending Groups: No Review of Systems Acute medical concerns: No Medical Review of Systems: unchanged Review of Systems Review of Systems Yes all other systems are reviewed and are negative and Unobtainable due to mental status Constitutional: Reports no additional constitutional complaints Eyes: Reports no additional eye complaints Cardiovascular: Reports no additional cardiovascular complaints Respiratory: Reports no additional respiratory complaints Gastrointestinal: Reports no additional gastrointestinal complaints Genitourinary: Reports no additional male genitourinary complaints Musculoskeletal: Reports no additional musculoskeletal complaints Reports behavioral changes and Reports confusion Psychiatric: Reports no additional psychiatric complaints, Reports abnormal sleep pattern (cycle reversal), Reports anxiety, Reports behavioral changes, Reports confusion, Reports depression, Reports difficulty concentrating, Reports auditory hallucinations, Reports hopelessness, Reports irritability, Reports anhedonia, Reports mood swings, Reports paranoia, Reports visual hallucinations, Reports hallucinations, Reports homicidal ideation (denies) and Reports suicidal ideation (denies) Endocrine: Reports no additional endocrine complaints Hematologic/Lymphatic: Reports no additional hematologic/lymphatic complaints Allergic/Immunologic: Reports no additional allergic/immunologic complaints Mental Status Exam Mental Status Exam Patient Appearance: Appropriate Patient Orientation: Person, Place, Time and Situation Level of Consciousness: Alert Patient Behavior: Talkative, Distractible and Good Eye Contact Mood Description: Calm and Withdrawn Affect Description: Calm Patient Cognition Impaired: Yes Ability to Follow Directions: Fair Speech Pattern: Monotone, Spontaneous Speech and Soft-Spoken Memory Description: Episodic Impaired Thought Content: positive for [place], positive for Circumstantial, positive for Disorganized, negative for Suicidal Ideation or positive for Homicidal Ideation Judgement: Fair Diagnostics Vital Signs (24Hr): Vital Signs - 24 hr 06/15/21 21:19 06/15/21 21:38 Temperature 98.2 F Pulse Rate 89 89 Respiratory Rate 18 Blood Pressure 153/89 H 153/89 H Pulse Oximetry 97 Body Mass Index 29.2 Labs Results: 05/22/21 14:56 05/22/21 14:56 Medications Medications Current Medications Generic Name Dose Route Start Last Admin Trade Name Freq PRN Reason Stop Dose Admin Acetaminophen 650 mg 04/26/21 22:03 04/29/21 09:44 Acetaminophen 325 Mg Tablet PO 650 mg Q6H PRN Administration Headache/Pain Mild Scale (1-3) Al Hydroxide/Mg Hydroxide 30 ml 04/26/21 22:03 Magnesium Hydrox/Alum Hydrox 30 Ml Oral.Susp PO Q6H PRN Heartburn/Nausea Benztropine Mesylate 0.5 mg 04/26/21 22:03 Benztropine Mesylate 0.5 Mg Tablet PO TID PRN Extrapyramidal Effects Clonidine HCl 0.1 mg 05/16/21 21:00 06/15/21 21:19 Clonidine Hcl 0.1 Mg Tablet PO 0.1 mg BEDTIME HERON Administration Protocol Diphenhydramine HCl 50 mg 04/26/21 22:03 Diphenhydramine Hcl 25 Mg Tablet PO Q4H PRN agitation Gabapentin 100 mg 06/10/21 21:00 06/15/21 21:18 Gabapentin 100 Mg Capsule PO 100 mg BEDTIME HERON Administration Gabapentin 200 mg 06/11/21 09:00 06/16/21 08:14 Gabapentin 100 Mg Capsule PO 200 mg DAILY HERON Administration Hydroxyzine HCl 25 mg 04/26/21 22:03 06/16/21 10:42 Hydroxyzine Hcl 25 Mg Tablet PO 25 mg TID PRN Administration Anxiety Magnesium Hydroxide 30 ml 04/26/21 22:03 Milk Of Magnesia 30 Ml Oral.Susp PO DAILY PRN Constipation Nicotine 21 mg 04/26/21 22:03 Nicotine 21 Mg Patch.Td24 TRANSDERMA DAILY PRN nocotine cessation Nicotine Polacrilex 4 mg 04/26/21 22:03 Nicotine Polacrilex 2 Mg Gum BUCCAL Q2H PRN Nicotine Cravings Olanzapine 5 mg 04/27/21 14:16 Olanzapine 5 Mg Tablet PO BID PRN mild-moderate agitation Olanzapine 20 mg 06/10/21 21:00 06/15/21 21:18 Olanzapine 10 Mg Tablet PO 20 mg BEDTIME HERON Administration Olanzapine 20 mg 06/10/21 15:53 Olanzapine 10 Mg Vial IM BEDTIME PRN to be given if pt refuses PO per court order Pharmacy Consult 1 each 04/26/21 18:33 Consult Rx Perform Med Rec MISCELLANE ONCE PRN Consult order Trazodone HCl 50 mg 04/26/21 22:03 Trazodone Hcl 50 Mg Tablet PO BEDTIME PRN Insomnia Allergies Allergies Allergy/AdvReac Type Severity Reaction Status Date / Time Penicillins [PCN] Allergy Unknown UNKNOWN Verified 10/05/20 19:44 Assessment & Plan Assessment & Plan (1) Schizophrenia: Qualifiers: Schizophrenia type: unspecified Qualified Code(s): F20.9 - S chizophrenia, unspecified Status: Acute Code(s): F20.9 - Schizophrenia, unspecified Assessment and Plan: 26 yo male, long history of schizophrenia, agitation, substance use, with a lapsed [facility]ane's order presents after stopping meds (reported last meds 04/23/21) d isorganized and needing extra support/care in modulation of mood, psychotic sx. Pt appears to be making steady improvement with GUERRA and Olanzapine, however, he prefers to use just Olanzapine po for his main agent for treatment. He is pending possible transfer to [facility]. PLAN: Section VIII Continue Olanzapine 20 mg HS. PRN's to remain Discontinue Invega Sustenna. Continue Gabapentin 200 mg a.m. 100 mg p.m. Clonidine 0.1 mg HS to address blood pressure elevations, possible increase as pt running some high numbers at times [facility] Application for longer term hospitalization pending~ 60 days Encourage GED prep when pt has free time to assist him in structuring time, beginning to work toward his goals. Pt reports he is working on this, and medicine changes he has requested he believes will assist him in improved concentration. Labs completed 05/22 are WNL. Pt responding to the current plan of care. Await [facility] decision as by history, discharge to community precipitates immediate relapse with substance use, non compliance with medications and placing self in danger by returning to the streets. Freedom is aware that this is our thought process and although he disagrees, he [facility]. No change to the above plan Assessment and Plan: As noted above. Greater than 50% of the session was spent on counseling and/or coordination of care Patient educated on: diagnosis and medication risk/benefits Informed Consent: does not understand Reason for contiued inpatient stay Substantial Risk for: inability to function and rapid decompensation
[2021-06-16 21:54] VITALS: BP 134/76; PULSE 77
[2021-06-16] MEDS: cloNIDine HCL 0.1 MG TABLET PO (21:54)
[2021-06-16] MEDS: Gabapentin 100 MG CAPSULE PO (21:54)
[2021-06-16] MEDS: OLANZapine 10 MG TABLET 20 MG PO (21:54)
[2021-06-17] MEDS: Gabapentin 100 MG CAPSULE 200 MG PO (08:43)
[2021-06-17 20:35] VITALS: BP 117/85; PULSE 71; TEMP 36.7
[2021-06-17] MEDS: OLANZapine 5 MG TABLET 25 MG PO (20:39)
[2021-06-17 20:40] VITALS: BP 117/85; PULSE 71
[2021-06-17] MEDS: Gabapentin 100 MG CAPSULE PO (20:40)
[2021-06-17] MEDS: cloNIDine HCL 0.1 MG TABLET PO (20:40)
[2021-06-17] MEDS: Acetaminophen 325 MG TABLET 650 MG PO (20:45)
--- NOTE | 2021-06-17 21:01 | HO.PSYCHPN ---
Subjective Subjective Date of Service: 06/17/21 Reason For Visit: Schizophrenia Subjective Notes: Section 8 Healthcare Proxy: No Guardianship: No Medical Problems Affecting Mental Status: No Interim History: Pt noted by team to be experiencing breakthrough psychotic symptoms over the weekend, responding to internal stimuli, decrease in cognitive clarity. Medication Compliance: Yes Side effects from medications: No Attending Groups: Intermittent Review of Systems Acute medical concerns: No Medical Review of Systems: unchanged Review of Systems Reports behavioral changes Psychiatric: Reports abnormal sleep pattern, Reports behavioral changes, Reports difficulty concentrating and Reports auditory hallucinations Mental Status Exam Mental Status Exam Patient Appearance: Disheveled Patient Orientation: Person and Place Level of Consciousness: Awake Patient Behavior: Guarded Mood Description: Withdrawn Affect Description: Withdrawn Patient Cognition Impaired: Yes Ability to Follow Directions: Fair Speech Pattern: Spontaneous Speech Memory Description: Remote Impaired and Episodic Impaired Hallucinations: Auditory Delusions: Paranoid Ideation Perceptual Disturbances: Derealization Thought Process: Distracted Thought Content: positive for Circumstantial and positive for Evasive Depressive Symptoms: Diff. Making Decisions, Increased Irritability and Sleeping More Than Usual Judgement: Poor Diagnostics Vital Signs (24Hr): Vital Signs - 24 hr 06/16/21 21:54 06/17/21 20:40 Pulse Rate 77 71 Blood Pressure 134/76 117/85 Body Mass Index 29.2 Labs Results: 05/22/21 14:56 05/22/21 14:56 Medications Medications Current Medications Generic Name Dose Route Start Last Admin Trade Name Freq PRN Reason Stop Dose Admin Acetaminophen 650 mg 04/26/21 22:03 06/17/21 20:45 Acetaminophen 325 Mg Tablet PO 650 mg Q6H PRN Administration Headache/Pain Mild Scale (1-3) Al Hydroxide/Mg Hydroxide 30 ml 04/26/21 22:03 Magnesium Hydrox/Alum Hydrox 30 Ml Oral.Susp PO Q6H PRN Heartburn/Nausea Benztropine Mesylate 0.5 mg 04/26/21 22:03 Benztropine Mesylate 0.5 Mg Tablet PO TID PRN Extrapyramidal Effects Clonidine HCl 0.1 mg 05/16/21 21:00 06/17/21 20:40 Clonidine Hcl 0.1 Mg Tablet PO 0.1 mg BEDTIME HERON Administration Protocol Diphenhydramine HCl 50 mg 04/26/21 22:03 Diphenhydramine Hcl 25 Mg Tablet PO Q4H PRN agitation Gabapentin 100 mg 06/10/21 21:00 06/17/21 20:40 Gabapentin 100 Mg Capsule PO 100 mg BEDTIME HERON Administration Gabapentin 200 mg 06/11/21 09:00 06/17/21 08:43 Gabapentin 100 Mg Capsule PO 200 mg DAILY HERON Administration Hydroxyzine HCl 25 mg 04/26/21 22:03 06/16/21 10:42 Hydroxyzine Hcl 25 Mg Tablet PO 25 mg TID PRN Administration Anxiety Magnesium Hydroxide 30 ml 04/26/21 22:03 Milk Of Magnesia 30 Ml Oral.Susp PO DAILY PRN Constipation Nicotine 21 mg 04/26/21 22:03 Nicotine 21 Mg Patch.Td24 TRANSDERMA DAILY PRN nocotine cessation Nicotine Polacrilex 4 mg 04/26/21 22:03 Nicotine Polacrilex 2 Mg Gum BUCCAL Q2H PRN Nicotine Cravings Olanzapine 5 mg 04/27/21 14:16 Olanzapine 5 Mg Tablet PO BID PRN mild-moderate agitation Olanzapine 25 mg 06/17/21 21:00 06/17/21 20:39 Olanzapine 5 Mg Tablet PO 25 mg BEDTIME HERON Administration Olanzapine 25 mg 06/17/21 12:13 Olanzapine 10 Mg Vial IM BEDTIME PRN to be given if pt refuses PO per court order Pharmacy Consult 1 each 04/26/21 18:33 Consult Rx Perform Med Rec MISCELLANE ONCE PRN Consult order Trazodone HCl 50 mg 04/26/21 22:03 Trazodone Hcl 50 Mg Tablet PO BEDTIME PRN Insomnia Allergies Allergies Allergy/AdvReac Type Severity Reaction Status Date / Time Penicillins [PCN] Allergy Unknown UNKNOWN Verified 10/05/20 19:44 Assessment & Plan Assessment & Plan (1) Schizophrenia: Qualifiers: Schizophrenia type: unspecified Qualified Code(s): F20.9 - Schizophrenia, unspecified Status: Acute Code(s): F20.9 - Schizophrenia, unspecified Assessment and Plan: 26 yo male, long history of schizophrenia, agitation, substance use, with a lapsed Blane's order presents after stopping meds (reported last meds 04/23/21) disorganized and needing extra support/care in modulation of mood, psychotic sx. Pt appears to be making steady improvement with GUERRA and Olanzapine, however, he prefers to use just Olanzapine po for his main agent for treatment. He is pending possible transfer to [facility]. PLAN: Section VIII Increase Olanzapine 25 mg HS. PRN's to remain Discontinue Invega Sustenna. Continue Gabapentin 200 mg a.m. 100 mg p.m. Clonidine 0.1 mg HS to address blood pressure elevations, possible increase as pt running some high numbers at times [facility] Application for longer term hospitalization pending~ 60 days Encourage GED prep when pt has free time to assist him in structuring time, beginning to work toward his goals. Pt reports he is working on this, and medicine changes he has requested he believes will assist him in improved concentration. Labs completed 05/22 are WNL. Pt responding to the current plan of care. Await [facility] decision as by history, discharge to community precipitates immediate relapse with substance use, non compliance with medications and placing self in danger by returning to the streets. Freedom is aware that this is our thought process and although he disagrees, he accepts that [facility] admission will most likely be his next intervention. Assessment and Plan: As noted above. Greater than 50% of the session was spent on counseling and/or coordination of care Patient educated on: medication risk/benefits and therapeutic strategies Informed Consent: does not understand Reason for contiued inpatient stay Substantial Risk for: harm to self, harm to others, inability to function and rapid decompensation
[2021-06-18] MEDS: Gabapentin 100 MG CAPSULE 200 MG PO (08:31)
[2021-06-18 20:10] VITALS: BP 132/66; PULSE 64; TEMP 35.8
[2021-06-18 20:19] VITALS: BP 106/59; PULSE 64
[2021-06-18] MEDS: cloNIDine HCL 0.1 MG TABLET PO (20:19)
[2021-06-18] MEDS: Gabapentin 100 MG CAPSULE PO (20:20)
[2021-06-18] MEDS: OLANZapine 5 MG TABLET 25 MG PO (20:21)
[2021-06-18] MEDS: hydrOXYzine HCL 25 MG TABLET PO (21:01)
--- NOTE | 2021-06-18 21:46 | HO.PSYCHPN ---
Subjective Subjective Date of Service: 06/18/21 Reason For Visit: Schizophrenia Subjective Notes: Section 8 Healthcare Proxy: No Guardianship: No Medical Problems Affecting Mental Status: No Interim History: Denies med SE yet tells team Olanzapine makes him feel sedate and tired. Denies depressive sx yet relates depressive sx possibly related to poor relationships with parents. Medication Compliance: Yes Side effects from medications: Yes (tired ?) Attending Groups: Intermittent Review of Systems Acute medical concerns: No Medical Review of Systems: unchanged Review of Systems Psychiatric: Reports depression and Reports difficulty concentrating Mental Status Exam Mental Status Exam Patient Appearance: Appropriate Patient Orientation: Person, Place, Time and Situation Level of Consciousness: Alert Patient Behavior: Talkative Mood Description: Withdrawn Affect Description: Flat Patient Cognition Impaired: Yes Ability to Follow Directions: Good Speech Pattern: Spontaneous Speech Memory Description: Episodic Impaired Hallucinations: None (denies) Thought Process: Distracted and Goal Oriented Thought Content: positive for [place] and positive for Circumstantial Depressive Symptoms: Diff. Making Decisions, Sleeping More Than Usual and Low Self Esteem Judgement: Poor Diagnostics Vital Signs (24Hr): Vital Signs - 24 hr 06/18/21 20:19 Pulse Rate 64 Blood Pressure 106/59 L Body Mass Index 29.2 Labs Results: 05/22/21 14:56 05/22/21 14:56 Medications Medications Current Medications Generic Name Dose Route Start Last Admin Trade Name Gilbertq PRN Reason Stop Dose Admin Acetaminophen 650 mg 04/26/21 22:03 06/17/21 20:45 Acetaminophen 325 Mg Tablet PO 650 mg Q6H PRN Administration Headache/Pain Mild Scale (1-3) Al Hydroxide/Mg Hydroxide 30 ml 04/26/21 22:03 Magnesium Hydrox/Alum Hydrox 30 Ml Oral.Susp PO Q6H PRN Heartburn/Nausea Benztropine Mesylate 0.5 mg 04/26/21 22:03 Benztropine Mesylate 0.5 Mg Tablet PO TID PRN Extrapyramidal Effects Clonidine HCl 0.1 mg 05/16/21 21:00 06/18/21 20:19 Clonidine Hcl 0.1 Mg Tablet PO 0.1 mg BEDTIME HERON Administration Protocol Diphenhydramine HCl 50 mg 04/26/21 22:03 Diphenhydramine Hcl 25 Mg Tablet PO Q4H PRN agitation Gabapentin 100 mg 06/10/21 21:00 06/18/21 20:20 Gabapentin 100 Mg Capsule PO 100 mg BEDTIME HERON Administration Gabapentin 200 mg 06/11/21 09:00 06/18/21 08:31 Gabapentin 100 Mg Capsule PO 200 mg DAILY HERON Administration Hydroxyzine HCl 25 mg 04/26/21 22:03 06/18/21 21:01 Hydroxyzine Hcl 25 Mg Tablet PO 25 mg TID PRN Administration Anxiety Magnesium Hydroxide 30 ml 04/26/21 22:03 Milk Of Magnesia 30 Ml Oral.Susp PO DAILY PRN Constipation Nicotine 21 mg 04/26/21 22:03 Nicotine 21 Mg Patch.Td24 TRANSDERMA DAILY PRN nocotine cessation Nicotine Polacrilex 4 mg 04/26/21 22:03 Nicotine Polacrilex 2 Mg Gum BUCCAL Q2H PRN Nicotine Cravings Olanzapine 5 mg 04/27/21 14:16 Olanzapine 5 Mg Tablet PO BID PRN mild-moderate agitation Olanzapine 25 mg 06/17/21 21:00 06/18/21 20:21 Olanzapine 5 Mg Tablet PO 25 mg BEDTIME HERON Administration Olanzapine 25 mg 06/17/21 12:13 Olanzapine 10 Mg Vial IM BEDTIME PRN to be given if pt refuses PO per court order Pharmacy Consult 1 each 04/26/21 18:33 Consult Rx Perform Med Rec MISCELLANE ONCE PRN Consult order Trazodone HCl 50 mg 04/26/21 22:03 Trazodone Hcl 50 Mg Tablet PO BEDTIME PRN Insomnia Allergies Allergies Allergy/AdvReac Type Severity Reaction Status Date / Time Penicillins [PCN] Allergy Unknown UNKNOWN Verified 10/05/20 19:44 Assessment & Plan Assessment & Plan (1) Schizophrenia: Qualifiers: Schizophrenia type: unspecified Qualified Code(s): F20.9 - Schizophrenia, unspecified Status: Acute Code(s): F20.9 - Schizophrenia, unspecified Assessment and Plan: 26 yo male, long history of schizophrenia, agitation, substance use, with a lapsed Blane's order presents after stopping meds (reported last meds 04/23/21) disorganized and needing extra support/care in modulation of mood, psychotic sx. Pt appears to be making steady improvement with GUERRA and Olanzapine, however, he prefers to use just Olanzapine po for his main agent for treatment. He is pending possible transfer to [facility]. PLAN: Section VIII Continue Olanzapine 25 mg HS. PRN's to remain Discontinue Invega Sustenna. Continue Gabapentin 200 mg a.m. 100 mg p.m. Clonidine 0.1 mg HS to address blood pressure elevations, possible increase as pt running some high numbers at times [facility] Application for longer term hospitalization pending~ 60 days Encourage GED prep when pt has free time to assist him in structuring time, beginning to work toward his goals. Pt reports he is working on this, and medicine changes he has requested he believes will assist him in improved concentration. Labs completed 05/22 are WNL. Pt responding to the current plan of care. Await [facility] decision as by history, discharge to community precipitates immediate relapse with substance use, non compliance with medications and placing self in danger by returning to the streets. Freedom is aware that this is our thought process and although he disagrees, he accepts that [facility] admission will most likely be his next intervention. Assessment and Plan: As noted above. Greater than 50% of the session was spent on counseling and/or coordination of care Reason for contiued inpatient stay Substantial Risk for: harm to self, harm to others, inability to function and rapid decompensation
[2021-06-19] MEDS: Gabapentin 100 MG CAPSULE 200 MG PO (08:37)
--- NOTE | 2021-06-19 16:49 | HO.PSYCHPN ---
Subjective Subjective Date of Service: 06/19/21 Reason For Visit: Schizophrenia Subjective Notes: Section 8 Healthcare Proxy: No Guardianship: No Medical Problems Affecting Mental Status: No Interim History: Denies issues or concerns. In bed, awake, denies SE, denies depressive symptoms, asks about [facility] waiting list. Medication Compliance: Yes Side effects from medications: No Attending Groups: No Review of Systems Acute medical concerns: No Medical Review of Systems: unchanged Review of Systems Reports behavioral changes Psychiatric: Reports abnormal sleep pattern, Reports behavioral changes, Reports difficulty concentrating and Reports irritability Mental Status Exam Mental Status Exam Patient Appearance: Disheveled Patient Orientation: Person, Place, Time and Situation Level of Consciousness: Alert Patient Behavior: Appropriate Mood Description: Withdrawn Affect Description: Withdrawn Patient Cognition Impaired: Yes Ability to Follow Directions: Fair Speech Pattern: Spontaneous Speech Memory Description: Episodic Impaired Hallucinations: None Delusions: Not Present Thought Process: Goal Oriented Thought Content: positive for Goal Oriented Depressive Symptoms: Sleeping More Than Usual (cycle change) and Low Self Esteem Judgement: Fair Diagnostics Vital Signs (24Hr): Vital Signs - 24 hr 06/18/21 20:10 06/18/21 20:19 Temperature 96.5 F L Pulse Rate 64 64 Blood Pressure 132/66 106/59 L Body Mass Index 29.2 Labs Results: 05/22/21 14:56 05/22/21 14:56 Medications Medications Current Medications Generic Name Dose Route Start Last Admin Trade Name Freq PRN Reason Stop Dose Admin Acetaminophen 650 mg 04/26/21 22:03 06/17/21 20:45 Acetaminophen 325 Mg Tablet PO 650 mg Q6H PRN Administration Headache/Pain Mild Scale (1-3) Al Hydroxide/Mg Hydroxide 30 ml 04/26/21 22:03 Magnesium Hydrox/Alum Hydrox 30 Ml Oral.Susp PO Q6H PRN Heartburn/Nausea Benztropine Mesylate 0.5 mg 04/26/21 22:03 Benztropine Mesylate 0.5 Mg Tablet PO TID PRN Extrapyramidal Effects Clonidine HCl 0.1 mg 05/16/21 21:00 06/18/21 20:19 Clonidine Hcl 0.1 Mg Tablet PO 0.1 mg BEDTIME HERON Administration Protocol Diphenhydramine HCl 50 mg 04/26/21 22:03 Diphenhydramine Hcl 25 Mg Tablet PO Q4H PRN agitation Gabapentin 100 mg 06/10/21 21:00 06/18/21 20:20 Gabapentin 100 Mg Capsule PO 100 mg BEDTIME HERON Administration Gabapentin 200 mg 06/11/21 09:00 06/19/21 08:37 Gabapentin 100 Mg Capsule PO 200 mg DAILY HERON Administration Hydroxyzine HCl 25 mg 04/26/21 22:03 06/18/21 21:01 Hydroxyzine Hcl 25 Mg Tablet PO 25 mg TID PRN Administration Anxiety Magnesium Hydroxide 30 ml 04/26/21 22:03 Milk Of Magnesia 30 Ml Oral.Susp PO DAILY PRN Constipation Nicotine 21 mg 04/26/21 22:03 Nicotine 21 Mg Patch.Td24 TRANSDERMA DAILY PRN nocotine cessation Nicotine Polacrilex 4 mg 04/26/21 22:03 Nicotine Polacrilex 2 Mg Gum BUCCAL Q2H PRN Nicotine Cravings Olanzapine 5 mg 04/27/21 14:16 Olanzapine 5 Mg Tablet PO BID PRN mild-moderate agitation Olanzapine 25 mg 06/17/21 21:00 06/18/21 20:21 Olanzapine 5 Mg Tablet PO 25 mg BEDTIME HERON Administration Olanzapine 25 mg 06/17/21 12:13 Olanzapine 10 Mg Vial IM BEDTIME PRN to be given if pt refuses PO per court order Pharmacy Consult 1 each 04/26/21 18:33 Consult Rx Perform Med Rec MISCELLANE ONCE PRN Consult order Trazodone HCl 50 mg 04/26/21 22:03 Trazodone Hcl 50 Mg Tablet PO BEDTIME PRN Insomnia Allergies Allergies Allergy/AdvReac Type Severity Reaction Status Date / Time Penicillins [PCN] Allergy Unknown UNKNOWN Verified 10/05/20 19:44 Assessment & Plan Assessment & Plan (1) Schizophrenia: Qualifiers: Schizophrenia type: unspecified Qualified Code(s): F20.9 - Schizophrenia, unspecified Status: Acute Code(s): F20.9 - Schizophrenia, unspecified Assessment and Plan: 26 yo male, long history of schizophrenia, agitation, substance use, with a lapsed Blane's order presents after stopping meds (reported last meds 04/23/21) disorganized and needing extra support/care in modulation of mood, psychotic sx. Pt appears to be making steady improvement with GUERRA and Olanzapine, however, he prefers to use just Olanzapine po for his main agent for treatment. He is pending possible transfer to [facility]. PLAN: Section VIII Continue Olanzapine 25 mg HS. PRN's to remain Discontinue Invega Sustenna. Continue Gabapentin 200 mg a.m. 100 mg p.m. Clonidine 0.1 mg HS to address blood pressure elevations, possible increase as pt running some high numbers at times [facility] Application for longer term hospitalization pending~ 60 days Encourage GED prep when pt has free time to assist him in structuring time, beginning to work toward his goals. Pt reports he is working on this, and medicine changes he has requested he believes will assist him in improved concentration. Labs completed 05/22 are WNL. Pt responding to the current plan of care. Await [facility] decision as by history, discharge to community precipitates immediate relapse with substance use, non compliance with medications and placing self in danger by returning to the streets. Freedom is aware that this is our thought process and although he disagrees, he accepts that [facility] admission will most likely be his next intervention. Assessment and Plan: As noted above. Greater than 50% of the session was spent on counseling and/or coordination of care Reason for contiued inpatient stay Substantial Risk for: harm to self, harm to others, inability to function and rapid decompensation
[2021-06-19 20:27] VITALS: BP 152/83; PULSE 84
[2021-06-19] MEDS: OLANZapine 5 MG TABLET 25 MG PO (20:27)
[2021-06-19] MEDS: Gabapentin 100 MG CAPSULE PO (20:27)
[2021-06-19] MEDS: cloNIDine HCL 0.1 MG TABLET PO (20:27)
[2021-06-19 21:00] VITALS: BP 152/83; PULSE 84; RESP 16; TEMP 36.8; O2SAT 96
[2021-06-19] MEDS: hydrOXYzine HCL 25 MG TABLET PO (21:04)
[2021-06-20 07:00] VITALS: BMI 31.2
[2021-06-20] MEDS: Gabapentin 100 MG CAPSULE 200 MG PO (08:49)
[2021-06-20] MEDS: Nicotine Polacrilex 2 MG GUM 4 MG BUCCAL (12:44)
--- NOTE | 2021-06-20 13:32 | P.PNPSI_ITS ---
Subjective Subjective Date of Service: 06/20/21 Reason For Visit: Schizophrenia Subjective Notes: Section 8 Healthcare Proxy: No Guardianship: No Medical Problems Affecting Mental Status: No Interim History: Freedom denies side effects from medications, he says he prefers to be awake on evenings/nights and this is a pattern he has had by history. Denies questions or concerns. He spoke of his parents today and how he does not feel they are too supportive of him as they are not offering his a place in their homes vs [facility]. Discussed being at [facility] in the past and states he believes it will be good for my career as he is aware of services for assistance with GED and college entrance. Agrees that the lack of this structure in parents homes could lead him to get off course and return to substances. Pt does not believe he is in need of treatment with medication or residential when I was at [facility] the last time they did psychological testing and told me that I was OK, no problems . Medication Compliance: Yes Side effects from medications: No (denies) Attending Groups: Intermittent Review of Systems Acute medical concerns: No Medical Review of Systems: unchanged Review of Systems Psychiatric: Reports abnormal sleep pattern and Reports suicidal ideation (denies) Mental Status Exam Mental Status Exam Patient Appearance: Appropriate Patient Orientation: Person, Place, Time and Situation Level of Consciousness: Alert Patient Behavior: Appropriate, Talkative and Good Eye Contact Mood Description: Calm Affect Description: Calm and Flat Patient Cognition Impaired: Yes Ability to Follow Directions: Fair Speech Pattern: Spontaneous Speech Memory Description: Episodic Impaired Hallucinations: None Delusions: Not Present Thought Process: Goal Oriented Thought Content: positive for Goal Oriented and positive for Suicidal Ideation (denies) Depressive Symptoms: Diff. Making Decisions, Difficulty Sleeping, Sleeping More Than Usual and Low Self Esteem Judgement: Fair Diagnostics Vital Signs (24Hr): Vital Signs - 24 hr 06/19/21 20:27 06/19/21 21:00 Temperature 98.2 F Pulse Rate 84 84 Respiratory Rate 16 Blood Pressure 152/83 H 152/83 H Pulse Oximetry 96 Body Mass Index 29.2 Labs Results: 05/22/21 14:56 05/22/21 14:56 Medications Medications Current Medications Generic Name Dose Route Start Last Admin Trade Name Freq PRN Reason Stop Dose Admin Acetaminophen 650 mg 04/26/21 22:03 06/17/21 20:45 Acetaminophen 325 Mg Tablet PO 650 mg Q6H PRN Administration Headache/Pain Mild Scale (1-3) Al Hydroxide/Mg Hydroxide 30 ml 04/26/21 22:03 Magnesium Hydrox/Alum Hydrox 30 Ml Oral.Susp PO Q6H PRN Heartburn/Nausea Benztropine Mesylate 0.5 mg 04/26/21 22:03 Benztropine Mesylate 0.5 Mg Tablet PO TID PRN Extrapyramidal Effects Clonidine HCl 0.1 mg 05/16/21 21:00 06/19/21 20:27 Clonidine Hcl 0.1 Mg Tablet PO 0.1 mg BEDTIME HERON Administration Protocol Diphenhydramine HCl 50 mg 04/26/21 22:03 Diphenhydramine Hcl 25 Mg Tablet PO Q4H PRN agitation Gabapentin 100 mg 06/10/21 21:00 06/19/21 20:27 Gabapentin 100 Mg Capsule PO 100 mg BEDTIME HERON Administration Gabapentin 200 mg 06/11/21 09:00 06/20/21 08:49 Gabapentin 100 Mg Capsule PO 200 mg DAILY HERON Administration Hydroxyzine HCl 25 mg 04/26/21 22:03 06/19/21 21:04 Hydroxyzine Hcl 25 Mg Tablet PO 25 mg TID PRN Administration Anxiety Magnesium Hydroxide 30 ml 04/26/21 22:03 Milk Of Magnesia 30 Ml Oral.Susp PO DAILY PRN Constipation Nicotine 21 mg 04/26/21 22:03 Nicotine 21 Mg Patch.Td24 TRANSDERMA DAILY PRN nocotine cessation Nicotine Polacrilex 4 mg 04/26/21 22:03 06/20/21 12:44 Nicotine Polacrilex 2 Mg Gum BUCCAL 4 mg Q2H PRN Administration Nicotine Cravings Olanzapine 5 mg 04/27/21 14:16 Olanzapine 5 Mg Tablet PO BID PRN mild-moderate agitation Olanzapine 25 mg 06/17/21 21:00 06/19/21 20:27 Olanzapine 5 Mg Tablet PO 25 mg BEDTIME HERON Administration Olanzapine 25 mg 06/17/21 12:13 Olanzapine 10 Mg Vial IM BEDTIME PRN to be given if pt refuses PO per court order Pharmacy Consult 1 each 04/26/21 18:33 Consult Rx Perform Med Rec MISCELLANE ONCE PRN Consult order Trazodone HCl 50 mg 04/26/21 22:03 Trazodone Hcl 50 Mg Tablet PO BEDTIME PRN Insomnia Allergies Allergies Allergy/AdvReac Type Severity Reaction Status Date / Time Penicillins [PCN] Allergy Unknown UNKNOWN Verified 10/05/20 19:44 Assessment & Plan Assessment & Plan (1) Schizophrenia: Qualifiers: Schizophrenia type: unspecified Qualified Code(s): F20.9 - Schizophrenia, unspecified Status: Acute Code(s): F20.9 - Schizophrenia, unspecified Assessment and Plan: 26 yo male, long history of schizophrenia, agitation, substance use, with a lapsed Blane's order presents after stopping meds (reported last meds 04/23/21) disorganized and needing extra support/care in modulation of mood, psychotic sx. Pt appears to be making steady improvement with Olanzapine, as he prefers to use just Olanzapine po for his main agent for treatment. He is pending possible transfer to [facility]. PLAN: Section VIII Continue Olanzapine 25 mg HS. PRN's to remain Discontinue Invega Sustenna. Continue Gabapentin 200 mg a.m. 100 mg p.m. Clonidine 0.1 mg HS to address blood pressure elevations, possible increase as pt running some high numbers at times [facility] Application for longer term hospitalization pending~ 60 days Encourage GED prep when pt has free time to assist him in structuring time, beginning to work toward his goals. Pt reports he is working on this, and med icine changes he has requested he believes will assist him in improved concentration. Labs completed 05/22 are WNL. Pt responding to the current plan of care. Await [facility] decision as by history, discharge to community precipitates immediate relapse with substance use, non compliance with medications and placing self in danger by returning to the streets. Freedom is aware that this is our thought process and although he disagrees, he accepts that [facility] admission will most likely be his next interve ntion. Assessment and Plan: As noted above. Greater than 50% of the session was spent on counseling and/or coordination of care Reason for contiued inpatient stay Substantial Risk for: harm to self, harm to others, inability to function and r apid decompensation
[2021-06-20 16:15] VITALS: BP 127/88; PULSE 104; TEMP 37
[2021-06-20 20:55] VITALS: BP 133/82; PULSE 104
[2021-06-20] MEDS: OLANZapine 5 MG TABLET 25 MG PO (20:55)
[2021-06-20] MEDS: Gabapentin 100 MG CAPSULE PO (20:55)
[2021-06-20] MEDS: cloNIDine HCL 0.1 MG TABLET PO (20:55)
[2021-06-20] MEDS: hydrOXYzine HCL 25 MG TABLET PO (22:43)
[2021-06-21 05:30] VITALS: BP 135/75; PULSE 108; RESP 18; O2SAT 94
[2021-06-21] MEDS: Gabapentin 100 MG CAPSULE 200 MG PO (08:30)
--- NOTE | 2021-06-21 14:55 | P.PNPSI_ITS ---
Subjective Subjective Date of Service: 06/21/21 Reason For Visit: Schizophrenia Subjective Notes: Section 8 Healthcare Proxy: No Guardianship: No Medical Problems Affecting Mental Status: No Interim History: Pt up in the late afternoon-states he has been thinking and [facility] may possibly be a good plan to help him find a stable job and educational opportunities. 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 I have asked him to consider antidepressant trial to help manage these symptoms. Medication Compliance: Yes Side effects from medications: No (pt denies) Attending Groups: Yes Review of Systems Acute medical concerns: No Medical Review of Systems: unchanged Review of Systems Psychiatric: Reports depression and Reports suicidal ideation (denies) Mental Status Exam Mental Status Exam Patient Appearance: Disheveled Patient Orientation: Person, Place, Time and Situation Level of Consciousness: Alert Patient Behavior: Talkative Mood Description: Depressed Affect Description: Flat Patient Cognition Impaired: No Ability to Follow Directions: Good Speech Pattern: Spontaneous Speech Memory Description: Episodic Impaired Hallucinations: Auditory (at times it appears he is still responding) Delusions: Not Present Thought Process: Goal Oriented Thought Content: positive for Goal Oriented Depressive Symptoms: Sleeping More Than Usual, Isolating-Friends/Family and Difficulty Concentrating Judgement: Poor Diagnostics Vital Signs (24Hr): Vital Signs - 24 hr 06/20/21 16:15 06/20/21 20:55 06/21/21 05:30 Temperature 98.6 F Pulse Rate 104 H 104 H 108 H Respiratory Rate 18 Blood Pressure 127/88 133/82 135/75 Pulse Oximetry 94 Body Mass Index 31.2 Labs Results: 05/22/21 14:56 05/22/21 14:56 Medications Medications Current Medications Generic Name Dose Route Start Last Admin Trade Name Freq PRN Reason Stop Dose Admin Acetaminophen 650 mg 04/26/21 22:03 06/17/21 20:45 Acetaminophen 325 Mg Tablet PO 650 mg Q6H PRN Administration Headache/Pain Mild Scale (1-3) Al Hydroxide/Mg Hydroxide 30 ml 04/26/21 22:03 Magnesium Hydrox/Alum Hydrox 30 Ml Oral.Susp PO Q6H PRN Heartburn/Nausea Benztropine Mesylate 0.5 mg 04/26/21 22:03 Benztropine Mesylate 0.5 Mg Tablet PO TID PRN Extrapyramidal Effects Clonidine HCl 0.1 mg 05/16/21 21:00 06/20/21 20:55 Clonidine Hcl 0.1 Mg Tablet PO 0.1 mg BEDTIME HERON Administration Protocol Diphenhydramine HCl 50 mg 04/26/21 22:03 Diphenhydramine Hcl 25 Mg Tablet PO Q4H PRN agitation Gabapentin 100 mg 06/10/21 21:00 06/20/21 20:55 Gabapentin 100 Mg Capsule PO 100 mg BEDTIME HERON Administration Gabapentin 200 mg 06/11/21 09:00 06/21/21 08:30 Gabapentin 100 Mg Capsule PO 200 mg DAILY HERON Administration Hydroxyzine HCl 25 mg 04/26/21 22:03 06/20/21 22:43 Hydroxyzine Hcl 25 Mg Tablet PO 25 mg TID PRN Administration Anxiety Magnesium Hydroxide 30 ml 04/26/21 22:03 Milk Of Magnesia 30 Ml Oral.Susp PO DAILY PRN Constipation Nicotine 21 mg 04/26/21 22:03 Nicotine 21 Mg Patch.Td24 TRANSDERMA DAILY PRN nocotine cessation Nicotine Polacrilex 4 mg 04/26/21 22:03 06/20/21 12:44 Nicotine Polacrilex 2 Mg Gum BUCCAL 4 mg Q2H PRN Administration Nicotine Cravings Olanzapine 5 mg 04/27/21 14:16 Olanzapine 5 Mg Tablet PO BID PRN mild-moderate agitation Olanzapine 25 mg 06/17/21 21:00 06/20/21 20:55 Olanzapine 5 Mg Tablet PO 25 mg BEDTIME HERON Administration Olanzapine 25 mg 06/17/21 12:13 Olanzapine 10 Mg Vial IM BEDTIME PRN to be given if pt refuses PO per court order Pharmacy Consult 1 each 04/26/21 18:33 Consult Rx Perform Med Rec MISCELLANE ONCE PRN Consult order Trazodone HCl 50 mg 04/26/21 22:03 Trazodone Hcl 50 Mg Tablet PO BEDTIME PRN Insomnia Allergies Allergies Allergy/AdvReac Type Severity Reaction Status Date / Time Penicillins [PCN] Allergy Unknown UNKNOWN Verified 10/05/20 19:44 Assessment & Plan Assessment & Plan (1) Schizophrenia: Qualifiers: Schizophrenia type: unspecified Qualified Code(s): F20.9 - Schizophrenia, unspecified Status: Acute Code(s): F20.9 - Schizophrenia, unspecified Assessment and Plan: 26 yo male, long history of schizophrenia, agitation, substance use, with a lapsed Blane's order presents after stopping meds (reported last meds 04/23/21) disorganized and needing extra support/care in modulation of mood, psychotic sx. Pt appears to be making steady improvement with Olanzapine, as he prefers to use just Olanzapine po for his main agent for treatment. He is pending possible transfer to [facility]. PLAN: Section VIII Continue Olanzapine 25 mg HS. PRN's to remain Discontinue Invega Sustenna. Continue Gabapentin 200 mg a.m. 100 mg p.m. Clonidine 0.1 mg HS to address blood pressure elevations, possible increase as pt running some high numbers at times [facility] Application for longer term hospitalization pending~ possibly within the next few weeks. Encourage GED prep when pt has free time to assist him in structuring time, beginning to work toward his goals. Pt reports he is working on this, and medicine changes he has requested he believes will assist him in improved c oncentration. Labs completed 05/22 are WNL. Pt responding to the current plan of care. Await [facility] decision as by history, discharge to community precipitates immediate relapse with substance use, non c ompliance with medications and placing self in danger by returning to the streets. Freedom is aware that this is our thought process and although he disagreed, he is beginning to talk of the potential benefits for his career goals. He accepts that [facility] admission will most likely be his next interv ention. Assessment and Plan: As noted above. Greater than 50% of the session was spent on counseling and/or coordination of care Patient educated on: diagnosis, medication risk/benefits and therapeutic strategies Informed Consent: further education needed Reason for contiued inpatient stay Substantial Risk for: harm to self, harm to others, inability to function and rapid decompensation
[2021-06-21 16:10] VITALS: BP 143/67; PULSE 104; TEMP 36.6
[2021-06-21 20:25] VITALS: BP 144/82; PULSE 91; TEMP 37.2
[2021-06-21 20:56] VITALS: BP 116/60; PULSE 93
[2021-06-21] MEDS: OLANZapine 5 MG TABLET 25 MG PO (20:56)
[2021-06-21] MEDS: cloNIDine HCL 0.1 MG TABLET PO (20:56)
[2021-06-21] MEDS: Gabapentin 100 MG CAPSULE PO (20:57)
[2021-06-21] MEDS: hydrOXYzine HCL 25 MG TABLET PO (21:00)
[2021-06-22] MEDS: Gabapentin 100 MG CAPSULE 200 MG PO (08:15)
[2021-06-22 17:45] VITALS: BP 127/66; PULSE 81; TEMP 37.1
--- NOTE | 2021-06-22 17:51 | HO.PSYCHPN ---
Subjective Subjective Date of Service: 06/23/21 Reason For Visit: Schizophrenia Interim History: Patient seen and discussed with team. Patient evaluated this morning and upon interview he reports his mood is alright. Says he is concerned about my medications and when asked to elaborate he stated, I dont want to be stuck in psychosis cause of the medications and I feel like i'm on too much. We reviewed his medications and he had some insight into not liking the amount of pills he has to take to total 25 mg of zyprexa, stating this is making me overly stressed and worried. This health science writer was able to call the pharmacy and change the order so that he can take fewer pills to total the same daily dose, as he was taking five 5 mg tablets. He says his sleep is fine, comfortable. He is eating. In the milieu, patient is safe but isolative in behavior. Denies SI/SIB/HI upon inquiry. Denies irritability or assaultive ideation. Says he feels safe. Review of Systems Medical Review of Systems: unchanged Mental Status Exam Mental Status Exam Narrative: Patient Appearance:?Disheveled Patient Orientation:?Person, Place, Time and Situation Level of Consciousness:?Alert Patient Behavior:?Talkative Mood Description:? alright Affect Description:?Flat Patient Cognition Impaired:?No Ability to Follow Directions:?Good Speech Pattern:?Spontaneous Speech Memory Description:?Episodic Impaired Hallucinations:?Auditory (at times it appears he is still responding) Delusions:?Not Present Thought Process:?Goal Oriented Thought Content:?positive for Goal Oriented Depressive Symptoms:?Sleeping More Than Usual, Isolating-Friends/Family and Difficulty Concentrating Judgement:?Poor Diagnostics Vital Signs (24Hr): Vital Signs - 24 hr 06/21/21 20:25 06/21/21 20:56 06/22/21 17:45 Temperature 98.9 F 98.7 F Pulse Rate 91 93 81 Blood Pressure 144/82 H 116/60 127/66 Body Mass Index 31.2 Labs Results: 05/22/21 14:56 05/22/21 14:56 Medications Medications Current Medications Generic Name Dose Route Start Last Admin Trade Name Freq PRN Reason Stop Dose Admin Acetaminophen 650 mg 04/26/21 22:03 06/17/21 20:45 Acetaminophen 325 Mg Tablet PO 650 mg Q6H PRN Administration Headache/Pain Mild Scale (1-3) Al Hydroxide/Mg Hydroxide 30 ml 04/26/21 22:03 Magnesium Hydrox/Alum Hydrox 30 Ml Oral.Susp PO Q6H PRN Heartburn/Nausea Benztropine Mesylate 0.5 mg 04/26/21 22:03 Benztropine Mesylate 0.5 Mg Tablet PO TID PRN Extrapyramidal Effects Clonidine HCl 0.1 mg 05/16/21 21:00 06/21/21 20:56 Clonidine Hcl 0.1 Mg Tablet PO 0.1 mg BEDTIME HERON Administration Protocol Diphenhydramine HCl 50 mg 04/26/21 22:03 Diphenhydramine Hcl 25 Mg Tablet PO Q4H PRN agitation Gabapentin 100 mg 06/10/21 21:00 06/21/21 20:57 Gabapentin 100 Mg Capsule PO 100 mg BEDTIME HERON Administration Gabapentin 200 mg 06/11/21 09:00 06/22/21 08:15 Gabapentin 100 Mg Capsule PO 200 mg DAILY HERON Administration Hydroxyzine HCl 25 mg 04/26/21 22:03 06/21/21 21:00 Hydroxyzine Hcl 25 Mg Tablet PO 25 mg TID PRN Administration Anxiety Magnesium Hydroxide 30 ml 04/26/21 22:03 Milk Of Magnesia 30 Ml Oral.Susp PO DAILY PRN Constipation Nicotine 21 mg 04/26/21 22:03 Nicotine 21 Mg Patch.Td24 TRANSDERMA DAILY PRN nocotine cessation Nicotine Polacrilex 4 mg 04/26/21 22:03 06/20/21 12:44 Nicotine Polacrilex 2 Mg Gum BUCCAL 4 mg Q2H PRN Administration Nicotine Cravings Olanzapine 5 mg 04/27/21 14:16 Olanzapine 5 Mg Tablet PO BID PRN mild-moderate agitation Olanzapine 25 mg 06/17/21 21:00 06/21/21 20:56 Olanzapine 5 Mg Tablet PO 25 mg BEDTIME HERON Administration Olanzapine 25 mg 06/17/21 12:13 Olanzapine 10 Mg Vial IM BEDTIME PRN to be given if pt refuses PO per court order Pharmacy Consult 1 each 04/26/21 18:33 Consult Rx Perform Med Rec MISCELLANE ONCE PRN Consult order Trazodone HCl 50 mg 04/26/21 22:03 Trazodone Hcl 50 Mg Tablet PO BEDTIME PRN Insomnia Allergies Allergies Allergy/AdvReac Type Severity Reaction Status Date / Time Penicillins [PCN] Allergy Unknown UNKNOWN Verified 10/05/20 19:44 Assessment & Plan Assessment & Plan (1) Schizophrenia: Qualifiers: Schizophrenia type: unspecified Qualified Code(s): F20.9 - Schizophrenia, unspecified Status: Acute Code(s): F20.9 - Schizophrenia, unspecified Assessment and Plan: 26 yo male, long history of schizophrenia, agitation, substance use, with a lapsed Blane's order presents after stopping meds (reported last meds 04/23/21) disorganized and needing extra support/care in modulation of mood, psychotic sx. Pt appears to be making steady improvement with Olanzapine, as he prefers to use just Olanzapine po for his main agent for treatment. He is pending possible transfer to [facility]. PLAN: Section VIII Continue Olanzapine 25 mg HS. PRN's to remain Invega Sustenna was discontinued Continue Gabapentin 200 mg a.m. 100 mg p.m. Clonidine 0.1 mg HS to address blood pressure elevations, possible increase as pt running some high numbers at times [facility] Application for longer term hospitalization pending~ possibly within the next few weeks. Encourage GED prep when pt has free time to assist him in structuring time, beginning to work toward his goals. Pt reports he is working on this, and medicine changes he has requested he believes will assist him in improved concentration. Labs completed 05/22 are WNL. Pt responding to the current plan of care. Await [facility] decision as by history, discharge to community precipitates immediate relapse with substance use, non compliance with medications and placing self in danger by returning to the streets. Freedom is aware that this is our thought process and although he disagreed, he is beginning to talk of the potential benefits for his career goals. He accepts that [facility] admission will most likely be his next intervention. No changes in mental status today. Assessment and Plan: As noted above. Greater than 50% of the session was spent on counseling and/or coordination of care Reason for contiued inpatient stay Substantial Risk for: inability to function, rapid decompensation and med/psych decompensation
[2021-06-22 20:15] VITALS: BP 155/94; PULSE 80; TEMP 36.7
[2021-06-22 20:25] VITALS: BP 155/94; PULSE 80
[2021-06-22] MEDS: Gabapentin 100 MG CAPSULE PO (20:25)
[2021-06-22] MEDS: cloNIDine HCL 0.1 MG TABLET PO (20:25)
[2021-06-22] MEDS: OLANZapine 10 MG TABLET 20 MG PO (20:25)
[2021-06-22] MEDS: OLANZapine 5 MG TABLET PO (20:32)
--- NOTE | 2021-06-23 14:16 | P.PNPSI_ITS ---
Subjective Subjective Date of Service: 06/24/21 Reason For Visit: Schizophrenia Subjective Notes: Section 8 Interim History: Patient seen and discussed with team. Patient evaluated this morning and upon interview he reports his mood is good. Sleep is good, I adrien slept in today, did not attend group. Says he feels better on fewer tabs of zyprexa. Appetite is good. Denies questions or concerns. Per nurse staff community health he is med adherent, on 15 min safety checks. Continues to appear restless and internally preoccupied. In the milieu, patient is safe but isolative in behavior. Denies SI/SIB/HI upon inquiry. Denies irritability or assaultive ideation. Says he feels safe. Medication Compliance: Yes Side effects from medications: No Attending Groups: No Mental Status Exam Mental Status Exam Narrative: Narrative:?Patient Appearance:?Disheveled Patient Orientation:?Person, Place, Time and Situation Level of Consciousness:?Alert Patient Behavior:?Talkative Mood Description:? good Affect Description:?Flat Patient Cognition Impaired:?No Ability to Follow Directions:?Good Speech Pattern:?Spontaneous Speech Memory Description:?Episodic Impaired Hallucinations:?Auditory (at times it appears he is still responding) Delusions:?Not Present Thought Process:?Goal Oriented Thought Content:?positive for Goal Oriented Depressive Symptoms:?Sleeping More Than Usual, Isolating-Friends/Family and Dif ficulty Concentrating Judgement:?Poor Diagnostics Vital Signs (24Hr): Vital Signs - 24 hr 06/22/21 17:45 06/22/21 20:15 06/22/21 20:25 Temperature 98.7 F 98.0 F Pulse Rate 81 80 80 Blood Pressure 127/66 155/94 H 155/94 H Body Mass Index 31.2 Labs Results: 05/22/21 14:56 05/22/21 14:56 Medications Medications Current Medications Generic Name Dose Route Start Last Admin Trade Name Freq PRN Reason Stop Dose Admin Acetaminophen 650 mg 04/26/21 22:03 06/17/21 20:45 Acetaminophen 325 Mg Tablet PO 650 mg Q6H PRN Administration Headache/Pain Mild Scale (1-3) Al Hydroxide/Mg Hydroxide 30 ml 04/26/21 22:03 Magnesium Hydrox/Alum Hydrox 30 Ml Oral.Susp PO Q6H PRN Heartburn/Nausea Benztropine Mesylate 0.5 mg 04/26/21 22:03 Benztropine Mesylate 0.5 Mg Tablet PO TID PRN Extrapyramidal Effects Clonidine HCl 0.1 mg 05/16/21 21:00 06/22/21 20:25 Clonidine Hcl 0.1 Mg Tablet PO 0.1 mg BEDTIME HERON Administration Protocol Diphenhydramine HCl 50 mg 04/26/21 22:03 Diphenhydramine Hcl 25 Mg Tablet PO Q4H PRN agitation Gabapentin 100 mg 06/10/21 21:00 06/22/21 20:25 Gabapentin 100 Mg Capsule PO 100 mg BEDTIME HERON Administration Gabapentin 200 mg 06/11/21 09:00 06/23/21 12:51 Gabapentin 100 Mg Capsule PO Not Given DAILY HERON Hydroxyzine HCl 25 mg 04/26/21 22:03 06/21/21 21:00 Hydroxyzine Hcl 25 Mg Tablet PO 25 mg TID PRN Administration Anxiety Magnesium Hydroxide 30 ml 04/26/21 22:03 Milk Of Magnesia 30 Ml Oral.Susp PO DAILY PRN Constipation Nicotine 21 mg 04/26/21 22:03 Nicotine 21 Mg Patch.Td24 TRANSDERMA DAILY PRN nocotine cessation Nicotine Polacrilex 4 mg 04/26/21 22:03 06/20/21 12:44 Nicotine Polacrilex 2 Mg Gum BUCCAL 4 mg Q2H PRN Administration Nicotine Cravings Olanzapine 5 mg 04/27/21 14:16 Olanzapine 5 Mg Tablet PO BID PRN mild-moderate agitation Olanzapine 25 mg 06/17/21 12:13 Olanzapine 10 Mg Vial IM BEDTIME PRN to be given if pt refuses PO per court order Olanzapine 20 mg 06/22/21 21:00 06/22/21 20:25 Olanzapine 10 Mg Tablet PO 20 mg BEDTIME HERON Administration Olanzapine 5 mg 06/22/21 21:00 06/22/21 20:32 Olanzapine 5 Mg Tablet PO 5 mg BEDTIME HERON Administration Pharmacy Consult 1 each 04/26/21 18:33 Consult Rx Perform Med Rec MISCELLANE ONCE PRN Consult order Trazodone HCl 50 mg 04/26/21 22:03 Trazodone Hcl 50 Mg Tablet PO BEDTIME PRN Insomnia Allergies Allergies Allergy/AdvReac Type Severity Reaction Status Date / Time Penicillins [PCN] Allergy Unknown UNKNOWN Verified 10/05/20 19:44 Assessment & Plan Assessment & Plan (1) Schizophrenia: Qualifiers: Schizophrenia type: unspecified Qualified Code(s): F20.9 - Schizophrenia, unspecified Status: Acute Code(s): F20.9 - Schizophrenia, unspecified Assessment and Plan: 26 yo male, long history of schizophrenia, agitation, substance use, with a lapsed Blane's order presents after stopping meds (reported last meds 04/23/21) disorganized and needing extra support/care in modulation of mood, psychotic sx. Pt appears to be making steady improvement with Olanzapine, as he prefers to use just Olanzapine po for his main agent for treatment. He is pending possible transfer to [facility]. PLAN: Section VIII Continue Olanzapine 25 mg HS. PRN's to remain Invega Sustenna was discontinued Continue Gabapentin 200 mg a.m. 100 mg p.m. Clonidine 0.1 mg HS to address blood pressure elevations, possible increase as pt running some high numbers at times [facility] Application for longer term hospitalization pending~ possibly within the next few weeks. Encourage GED prep when pt has free time to assist him in structuring time, beginning to work toward his goals. Pt reports he is working on this, and medicine changes he has requested he believes will assist him in improved concentration. Labs completed 05/22 are WNL. Pt responding to the current plan of care. Await [facility] decision as by history, discharge to community precipitates immediate relapse with substance use, non compliance with medications and placing self in danger by returning to the [facility]. Freedom is aware that this is our thought process and although he disagreed, he is beginning to talk of the potential benefits for his career goals. He accepts that [facility] admission will most likely be his next intervention. No changes in mental status today. Assessment and Plan: As noted above. Greater than 50% of the session was spent on counseling and/or coordination of care Reason for contiued inpatient stay Substantial Risk for: inability to function, rapid decompensation and med/psych decompensation
[2021-06-23 16:15] VITALS: BP 119/63; PULSE 59; TEMP 37.1
[2021-06-23 20:00] VITALS: BP 139/70; PULSE 82
[2021-06-23] MEDS: OLANZapine 10 MG TABLET 20 MG PO (20:21)
[2021-06-23] MEDS: Gabapentin 100 MG CAPSULE PO (20:21)
[2021-06-23 20:25] VITALS: BP 134/78; PULSE 80
[2021-06-23] MEDS: OLANZapine 5 MG TABLET PO (20:25)
[2021-06-23] MEDS: cloNIDine HCL 0.1 MG TABLET PO (20:25)
[2021-06-23] MEDS: hydrOXYzine HCL 25 MG TABLET PO (20:26)
[2021-06-24] MEDS: Gabapentin 100 MG CAPSULE 200 MG PO (08:24)
--- NOTE | 2021-06-24 17:26 | P.PNPSI_ITS ---
Subjective Subjective Date of Service: 06/24/21 Reason For Visit: Schizophrenia Subjective Notes: Section 8 Healthcare Proxy: No Guardianship: No Medical Problems Affecting Mental Status: No Interim History: Tentative discharge to [facility] this week. Doris Reynoso [facility] talked with pt regarding GED preparation information she had been informed of. This was encouraging to pt and he approached tw to continue discussion of addition of an antidepressant. States I think I may have a chance to do this and go to college, so I want to feel the best I can. Will initiate low dose Sertraline. Medication Compliance: Yes Side effects from medications: No (a.m. sedation-pt reports it is his sleep pattern-up late, sleep late) Attending Groups: Yes Review of Systems Acute medical concerns: No Medical Review of Systems: unchanged Review of Systems Reports behavioral changes Psychiatric: Reports abnormal sleep pattern (adolescent like pattern) and Reports behavioral changes Mental Status Exam Mental Status Exam Patient Appearance: Appropriate Patient Orientation: Person, Place, Time and Situation Level of Consciousness: Alert Patient Behavior: Appropriate, Talkative, Cooperative and Good Eye Contact Mood Description: Calm Affect Description: Calm and Flat Patient Cognition Impaired: No Speech Pattern: Clear, Appropriate and Spontaneous Speech Memory Description: Episodic Impaired Hallucinations: None Delusions: Not Present Thought Process: Intact Thought Content: positive for Intact Depressive Symptoms: Sleeping More Than Usual (cycle reversal), Feelings of Worthlessness, Hopelessness, Low Self Esteem, Loss of Energy and Difficulty Concentrating Judgement: Fair Diagnostics Vital Signs (24Hr): Vital Signs - 24 hr 06/23/21 20:00 06/23/21 20:25 Pulse Rate 82 80 Blood Pressure 139/70 134/78 Body Mass Index 31.2 Labs Results: 05/22/21 14:56 05/22/21 14:56 Medications Medications Current Medications Generic Name Dose Route Start Last Admin Trade Name Freq PRN Reason Stop Dose Admin Acetaminophen 650 mg 04/26/21 22:03 06/17/21 20:45 Acetaminophen 325 Mg Tablet PO 650 mg Q6H PRN Administration Headache/Pain Mild Scale (1-3) Al Hydroxide/Mg Hydroxide 30 ml 04/26/21 22:03 Magnesium Hydrox/Alum Hydrox 30 Ml Oral.Susp PO Q6H PRN Heartburn/Nausea Benztropine Mesylate 0.5 mg 04/26/21 22:03 Benztropine Mesylate 0.5 Mg Tablet PO TID PRN Extrapyramidal Effects Clonidine HCl 0.1 mg 05/16/21 21:00 06/23/21 20:25 Clonidine Hcl 0.1 Mg Tablet PO 0.1 mg BEDTIME HERON Administration Protocol Diphenhydramine HCl 50 mg 04/26/21 22:03 Diphenhydramine Hcl 25 Mg Tablet PO Q4H PRN agitation Gabapentin 100 mg 06/10/21 21:00 06/23/21 20:21 Gabapentin 100 Mg Capsule PO 100 mg BEDTIME HERON Administration Gabapentin 200 mg 06/11/21 09:00 06/24/21 08:24 Gabapentin 100 Mg Capsule PO 200 mg DAILY HERON Administration Hydroxyzine HCl 25 mg 04/26/21 22:03 06/23/21 20:26 Hydroxyzine Hcl 25 Mg Tablet PO 25 mg TID PRN Administration Anxiety Magnesium Hydroxide 30 ml 04/26/21 22:03 Milk Of Magnesia 30 Ml Oral.Susp PO DAILY PRN Constipation Nicotine 21 mg 04/26/21 22:03 Nicotine 21 Mg Patch.Td24 TRANSDERMA DAILY PRN nocotine cessation Nicotine Polacrilex 4 mg 04/26/21 22:03 06/20/21 12:44 Nicotine Polacrilex 2 Mg Gum BUCCAL 4 mg Q2H PRN Administration Nicotine Cravings Olanzapine 5 mg 04/27/21 14:16 Olanzapine 5 Mg Tablet PO BID PRN mild-moderate agitation Olanzapine 25 mg 06/17/21 12:13 Olanzapine 10 Mg Vial IM BEDTIME PRN to be given if pt refuses PO per court order Olanzapine 20 mg 06/22/21 21:00 06/23/21 20:21 Olanzapine 10 Mg Tablet PO 20 mg BEDTIME HERON Administration Olanzapine 5 mg 06/22/21 21:00 06/23/21 20:25 Olanzapine 5 Mg Tablet PO 5 mg BEDTIME HERON Administration Pharmacy Consult 1 each 04/26/21 18:33 Consult Rx Perform Med Rec MISCELLANE ONCE PRN Consult order Sertraline HCl 25 mg 06/25/21 09:00 Sertraline Hcl 25 Mg Tablet PO DAILY HERON Trazodone HCl 50 mg 04/26/21 22:03 Trazodone Hcl 50 Mg Tablet PO BEDTIME PRN Insomnia Allergies Allergies Allergy/AdvReac Type Severity Reaction Status Date / Time Penicillins [PCN] Allergy Unknown UNKNOWN Verified 10/05/20 19:44 Assessment & Plan Assessment & Plan (1) Schizophrenia: Qualifiers: Schizophrenia type: unspecified Qualified Code(s): F20.9 - Schizophrenia, unspecified Status: Acute Code(s): F20.9 - Schizophrenia, unspecified Assessment and Plan: 26 yo male, long history of schizophrenia, agitation, substance use, with a la psed Blane's order presents after stopping meds (reported last meds 04/23/21) disorganized and needing extra support/care in modulation of mood, psychotic sx. Pt appears to be making steady improvement with Olanzapine, as he prefers to use just Olanzapine po for his main agent for treatment. He is pending transfer to [facility]. PLAN: Section VIII Continue Olanzapine 25 mg HS. PRN's to remain Invega Sustenna was discontinued Continue Gabapentin 200 mg a.m. 100 mg p.m. Clonidine 0.1 mg HS to address blood pressure elevations, possible increase as pt running some high numbers at times [facility] Application for longer term hospitalization pending~ possibly within the next few weeks. Encourage GED prep when pt has free time to assist him in structuring time, beginning to work toward his goals. Pt reports he is working on this, and medicine changes he has requested he believes will assist him in improved concentration. Labs completed 05/22 are WNL. Begin Sertraline 25 mg daily 06/25- pt request after several discussions.! Pt responding to the current plan of care. Await [facility] decision as by history, discharge to community precipitates immediate relapse with substance use, non compliance with medications and placing self in danger by returning to the streets. Freedom is aware that this is our thought process and although he disagreed, he is beginning to talk of the potential benefits for his career goals. He accepts that [facility] admission will most likely be his next intervention. No changes in mental status today. Greater than 50% of the session was spent on counseling and/or coordination of care Reason for contiued inpatient stay Substantial Risk for: harm to self, harm to others, inability to function and rapid decompensation
[2021-06-24 20:09] VITALS: BP 140/73; PULSE 65
[2021-06-24] MEDS: cloNIDine HCL 0.1 MG TABLET PO (20:09)
[2021-06-24] MEDS: OLANZapine 5 MG TABLET PO (20:11)
[2021-06-24] MEDS: OLANZapine 10 MG TABLET 20 MG PO (20:11)
[2021-06-24] MEDS: Gabapentin 100 MG CAPSULE PO (20:12)
[2021-06-25 06:00] VITALS: BP 140/73; PULSE 65; RESP 18; TEMP 35.8; O2SAT 96
[2021-06-25] MEDS: Sertraline HCL 25 MG TABLET PO (09:46)
[2021-06-25] MEDS: Gabapentin 100 MG CAPSULE 200 MG PO (09:46)
--- NOTE | 2021-06-25 17:12 | HO.PSYCHPN ---
Subjective Subjective Date of Service: 06/25/21 Reason For Visit: Schizophrenia Subjective Notes: Section 8 Healthcare Proxy: No Guardianship: No Medical Problems Affecting Mental Status: No Interim History: Freedom had his first dose of Sertraline today without incident. He has followed his pattern of remaining in bed during the day-seen up later in the afternoon with peers socializing. Tentative plan is for pt to transfer to [facility] this week. As a result, we will update his diagnostics in preparation. Medication Compliance: Yes Side effects from medications: No Attending Groups: Intermittent Review of Systems Acute medical concerns: No Labs ordered for 06/26/21. Medical Review of Systems: unchanged Review of Systems Psychiatric: Reports abnormal sleep pattern, Reports difficulty concentrating and Reports paranoia Mental Status Exam Mental Status Exam Patient Appearance: Appropriate Patient Orientation: Person and Place Level of Consciousness: Alert Patient Behavior: Talkative Mood Description: Flat Affect Description: Flat Patient Cognition Impaired: Yes Ability to Follow Directions: Fair Speech Pattern: Spontaneous Speech Memory Description: Episodic Impaired Hallucinations: None Delusions: Not Present Thought Process: Distracted Thought Content: positive for Circumstantial Depressive Symptoms: Sleeping More Than Usual and Difficulty Concentrating Judgement: Fair Diagnostics Vital Signs (24Hr): Vital Signs - 24 hr 06/24/21 20:09 06/25/21 06:00 Temperature 96.4 F L Pulse Rate 65 65 Respiratory Rate 18 Blood Pressure 140/73 H 140/73 H Pulse Oximetry 96 Body Mass Index 31.2 Labs Results: 05/22/21 14:56 05/22/21 14:56 Medications Medications Current Medications Generic Name Dose Route Start Last Admin Trade Name Freq PRN Reason Stop Dose Admin Acetaminophen 650 mg 04/26/21 22:03 06/17/21 20:45 Acetaminophen 325 Mg Tablet PO 650 mg Q6H PRN Administration Headache/Pain Mild Scale (1-3) Al Hydroxide/Mg Hydroxide 30 ml 04/26/21 22:03 Magnesium Hydrox/Alum Hydrox 30 Ml Oral.Susp PO Q6H PRN Heartburn/Nausea Benztropine Mesylate 0.5 mg 04/26/21 22:03 Benztropine Mesylate 0.5 Mg Tablet PO TID PRN Extrapyramidal Effects Clonidine HCl 0.1 mg 05/16/21 21:00 06/24/21 20:09 Clonidine Hcl 0.1 Mg Tablet PO 0.1 mg BEDTIME HERON Administration Protocol Diphenhydramine HCl 50 mg 04/26/21 22:03 Diphenhydramine Hcl 25 Mg Tablet PO Q4H PRN agitation Gabapentin 100 mg 06/10/21 21:00 06/24/21 20:12 Gabapentin 100 Mg Capsule PO 100 mg BEDTIME HERON Administration Gabapentin 200 mg 06/11/21 09:00 06/25/21 09:46 Gabapentin 100 Mg Capsule PO 200 mg DAILY HERON Administration Hydroxyzine HCl 25 mg 04/26/21 22:03 06/23/21 20:26 Hydroxyzine Hcl 25 Mg Tablet PO 25 mg TID PRN Administration Anxiety Magnesium Hydroxide 30 ml 04/26/21 22:03 Milk Of Magnesia 30 Ml Oral.Susp PO DAILY PRN Constipation Nicotine 21 mg 04/26/21 22:03 Nicotine 21 Mg Patch.Td24 TRANSDERMA DAILY PRN nocotine cessation Nicotine Polacrilex 4 mg 04/26/21 22:03 06/20/21 12:44 Nicotine Polacrilex 2 Mg Gum BUCCAL 4 mg Q2H PRN Administration Nicotine Cravings Olanzapine 5 mg 04/27/21 14:16 Olanzapine 5 Mg Tablet PO BID PRN mild-moderate agitation Olanzapine 25 mg 06/17/21 12:13 Olanzapine 10 Mg Vial IM BEDTIME PRN to be given if pt refuses PO per court order Olanzapine 20 mg 06/22/21 21:00 06/24/21 20:11 Olanzapine 10 Mg Tablet PO 20 mg BEDTIME HERON Administration Olanzapine 5 mg 06/22/21 21:00 06/24/21 20:11 Olanzapine 5 Mg Tablet PO 5 mg BEDTIME HERON Administration Pharmacy Consult 1 each 04/26/21 18:33 Consult Rx Perform Med Rec MISCELLANE ONCE PRN Consult order Sertraline HCl 25 mg 06/25/21 09:00 06/25/21 09:46 Sertraline Hcl 25 Mg Tablet PO 25 mg DAILY HERON Administration Trazodone HCl 50 mg 04/26/21 22:03 Trazodone Hcl 50 Mg Tablet PO BEDTIME PRN Insomnia Allergies Allergies Allergy/AdvReac Type Severity Reaction Status Date / Time Penicillins [PCN] Allergy Unknown UNKNOWN Verified 10/05/20 19:44 Assessment & Plan Assessment & Plan (1) Schizophrenia: Qualifiers: Schizophrenia type: unspecified Qualified Code(s): F20.9 - Schizophrenia, unspecified Status: Acute Code(s): F20.9 - Schizophrenia, unspecified Assessment and Plan: 26 yo male, long history of schizophrenia, agitation, substance use, with a lapsed [facility]ane's order presents after stopping meds (reported last meds 04/23/21) disorganized and needing extra support/care in modulation of mood, psychotic sx. Pt appears to be making steady improvement with Olanzapine, as he prefers to use just Olanzapine po for his main agent for treatment. He is pending transfer to [facility]. PLAN: Section VIII Continue Olanzapine 25 mg HS. PRN's to remain Invega Sustenna was discontinued Continue Gabapentin 200 mg a.m. 100 mg p.m. Increase Clonidine 0.1 mg bid to address blood pressure elevations, possible increase as pt running some high numbers at times [facility] Application for longer term hospitalization pending~ possibly within the next few weeks. Encourage GED prep when pt has free time to assist him in structuring time, beginning to work toward his goals. Pt reports he is working on this, and medicine changes he has requested he believes will assist him in improved concentration. Labs completed 05/22 are WNL. Will repeat on 06/26/21 and add EKG. Begin Sertraline 25 mg daily 06/25- pt request after several discussions.! Pt responding to the current plan of care. Await [facility] decision as by history, discharge to community precipitates immediate relapse with substance use, non compliance with medications and placing self in danger by returning to the streets. Freedom is aware that this is our thought process and although he disagreed, he is beginning to talk of the potential benefits for his career goals. He accepts that [facility] admission will most likely be his next intervention. No changes in mental status today. Greater than 50% of the session was spent on counseling and/or coordination of care Informed Consent: further education needed Reason for contiued inpatient stay Substantial Risk for: harm to self, harm to others, inability to function and rapid decompensation
[2021-06-25 18:00] VITALS: BP 146/86; PULSE 78; TEMP 37.1
[2021-06-25 20:37] VITALS: BP 146/86; PULSE 78
[2021-06-25] MEDS: cloNIDine HCL 0.1 MG TABLET PO (20:37)
[2021-06-25] MEDS: OLANZapine 5 MG TABLET PO (20:38)
[2021-06-25] MEDS: Gabapentin 100 MG CAPSULE PO (20:38)
[2021-06-25] MEDS: OLANZapine 10 MG TABLET 20 MG PO (20:38)
[2021-06-26 06:00] VITALS: BP 132/76; PULSE 69; TEMP 36.4; O2SAT 98
--- NOTE | 2021-06-26 07:00 | ECG_ITS ---
Test Reason : ATYP ANTIPSYCH WHEELER Blood Pressure : / mmHG Vent. Rate : 059 BPM Atrial Rate : 059 BPM P-R Int : 156 ms QRS Dur : 104 ms QT Int : 458 ms P-R-T Axes : 036 050 008 degrees QTc Int : 453 ms Sinus bradycardia with sinus arrhythmia Otherwise normal ECG When compared with ECG of 18-DEC-2018 09:19, Inverted T waves have replaced nonspecific T wave abnormality in Inferior leads Referred By: Sherlyn Juarez Electronically Signed By:SOCORRO GARCIA MD
[2021-06-26 09:06] VITALS: BP 132/76; PULSE 69
[2021-06-26] MEDS: cloNIDine HCL 0.1 MG TABLET PO ×2 (09:06→20:52)
[2021-06-26] MEDS: Gabapentin 100 MG CAPSULE 200 MG PO (09:06)
[2021-06-26] MEDS: Gabapentin 100 MG CAPSULE PO (09:06)
[2021-06-26] MEDS: Sertraline HCL 25 MG TABLET PO (09:07)
[2021-06-26 12:48] LABS: MANUAL DIFF FLAG NO
[2021-06-26 12:55] LABS: Basophils Percent Auto 0.4 % (0-2); Eosinophils Absolute Auto 0.1 X10*3/uL (0.0-0.4); Hematocrit 43.3 % (42-52); Hemoglobin 15.1 g/dl (14.0-18.0); Lymphocytes Absolute Auto 1.8 X10*3/uL (1.2-4.9); Lymphocytes Percent Auto 37.9 % (20-40); Mean Corpuscular HGB Conc 34.9 g/dl (31.0-36.0); Mean Corpuscular Hemoglobin 30.2 pg (27.0-33.0); Mean Corpuscular Volume 86.6 fL (80-98); Mean Platelet Volume 9.1 fL (9.4-12.4); Monocytes Absolute Auto 0.5 X10*3/uL (0.1-1.2); Monocytes Percent Auto 10.5 % (2-11); Neutrophils Absolute Auto 2.4 X10*3/uL (2.0-8.3); Neutrophils Percent Auto 50.2 % (45-73); Platelet Count 187 X10*3/uL (160-400); Red Cell Distribution Width 11.9 % (11.0-16.0); White Blood Count 4.9 X10*3/uL (4.8-10.8)
[2021-06-26 13:13] LABS: Estimated Average Glucose 97 mg/dL
[2021-06-26 13:18] LABS: Influenza A PCR NEGATIVE (Negative); Influenza B PCR NEGATIVE (Negative); Resp Syncy Virus RNA Qual PCR NEGATIVE (Negative); SARS COV2 PCR INHOUSE NEGATIVE (Negative)
[2021-06-26 13:28] LABS: Alanine Aminotransferase 26 U/L (0-40); Albumin Level 4.6 g/dL (3.5-5.0); Alkaline Phosphatase 76 U/L (39-117); Anion Gap 12 (12-20); Aspartate Amino Transferase 19 U/L (5-37); Bilirubin Total 0.6 mg/dL (0.0-1.0); Blood Urea Nitrogen 15 mg/dL (9-16); Calcium 9.9 mg/dL (8.4-10.2); Carbon Dioxide 26 mmol/L (22-29); Chloride 106 mmol/L (96-108); Cholesterol 160 mg/dL; Creatinine Clr Calc Pharmacy 127.7; Estimated Glomerular Filt Rate > 60; Glucose Random 95 mg/dL (60-115); HDL Cholesterol 24 mg/dL; LDL Cholesterol Calculated 77 mg/dl; Potassium 4.4 mmol/L (3.3-5.1); Sodium 140 mmol/L (135-145); Total Protein 6.8 g/dL (6.5-8.0); Triglycerides 298 mg/dL
[2021-06-26 13:50] LABS: Thyroid Stimulating Hormone 1.92 uIU/mL (0.32-4.0)
--- NOTE | 2021-06-26 15:07 | PC.NURSE ---
Addendum entered by Adis Mccray RN 06/26/21 15:27: PPD results read today. no redness or duration test negative. Original Note: PPD read on 06/26/21,results negative. pt also had rapid covid test, test negative 06/26/21. Pt in a bright mood, goal focused on obtaining GED, Driving permit/license.
--- NOTE | 2021-06-26 17:08 | P.PNPSI_ITS ---
Subjective Subjective Date of Service: 06/26/21 Reason For Visit: Schizophrenia Subjective Notes: Section 8 Healthcare Proxy: No Guardianship: No Medical Problems Affecting Mental Status: No Interim History: Pleased to be moving forward tomorrow to [place]. Believes this will be good for his career. Updated labs, EKG completed. Pt currently with no questions regarding transfer, just states he hopes they can help him get his GED- then my parents may be proud of me. Medication Compliance: Yes Side effects from medications: No Attending Groups: Yes Review of Systems Acute medical concerns: No Medical Review of Systems: unchanged Review of Systems Reports behavioral changes Psychiatric: Reports abnormal sleep pattern, Reports behavioral changes and Reports auditory hallucinations Mental Status Exam Mental Status Exam Patient Appearance: Appropriate Patient Orientation: Person, Place and Situation Level of Consciousness: Alert Patient Behavior: Guarded, Talkative, Anxious and Good Eye Contact Diagnostics Vital Signs (24Hr): Vital Signs - 24 hr 06/25/21 18:00 06/25/21 20:37 06/26/21 06:00 Temperature 98.7 F 97.6 F Pulse Rate 78 78 69 Blood Pressure 146/86 H 146/86 H 132/76 Pulse Oximetry 98 06/26/21 09:06 Temperature Pulse Rate 69 Blood Pressure 132/76 Pulse Oximetry Body Mass Index 31.2 Labs Results: 06/26/21 12:41 06/26/21 12:41 Labs: Laboratory Results - last 48 hr 06/26/21 06/26/21 06/26/21 12:25 12:41 12:41 WBC 4.9 RBC 5.00 Hgb 15.1 Hct 43.3 MCV 86.6 MCH 30.2 MCHC 34.9 RDW 11.9 Plt Count 187 MPV 9.1 L Immature Gran % (Auto) 0.0 Neut % (Auto) 50.2 Lymph % (Auto) 37.9 [place] % (Auto) 10.5 Eos % (Auto) 1.0 Baso % (Auto) 0.4 Lymph # (Auto) 1.8 [place] # (Auto) 0.5 Eos # (Auto) 0.1 Baso # (Auto) 0.0 Abs Immat Gran (auto) 0.00 Absolute Neuts (auto) 2.4 Absolute Nucleated RBC 0.000 Nucleated RBC % (auto) 0.0 Sodium 140 Potassium 4.4 Chloride 106 Carbon Dioxide 26 Anion Gap 12 BUN 15 Creatinine 1.02 Estim Creat Clear Calc 127.7 Estimated GFR > 60 Random Glucose 95 Estimat Average Glucose Hemoglobin A1c % Calcium 9.9 Total Bilirubin 0.6 AST 19 ALT 26 Alkaline Phosphatase 76 Total Protein 6.8 Albumin 4.6 Triglycerides 298 Cholesterol 160 LDL Cholesterol, Calc 77 HDL Cholesterol 24 TSH 1.92 Coronavirus (PCR) NEGATIVE Influenza Type A (PCR) NEGATIVE Influenza Type B (PCR) NEGATIVE RSV RNA Qual (PCR) NEGATIVE 06/26/21 12:41 WBC RBC Hgb Hct MCV MCH MCHC RDW Plt Count MPV Immature Gran % (Auto) Neut % (Auto) Lymph % (Auto) [place] % (Auto) Eos % (Auto) Baso % (Auto) Lymph # (Auto) [place] # (Auto) Eos # (Auto) Baso # (Auto) Abs Immat Gran (auto) Absolute Neuts (auto) Absolute Nucleated RBC Nucleated RBC % (auto) Sodium Potassium Chloride Carbon Dioxide Anion Gap BUN Creatinine Estim Creat Clear Calc Estimated GFR Random Glucose Estimat Average Glucose 97 Hemoglobin A1c % 5.0 Calcium Total Bilirubin AST ALT Alkaline Phosphatase Total Protein Albumin Triglycerides Cholesterol LDL Cholesterol, Calc HDL Cholesterol TSH Coronavirus (PCR) Influenza Type A (PCR) Influenza Type B (PCR) RSV RNA Qual (PCR) Medications Medications Current Medications Generic Name Dose Route Start Last Admin Trade Name Freq PRN Reason Stop Dose Admin Acetaminophen 650 mg 04/26/21 22:03 06/17/21 20:45 Acetaminophen 325 Mg Tablet PO 650 mg Q6H PRN Administration Headache/Pain Mild Scale (1-3) Al Hydroxide/Mg Hydroxide 30 ml 04/26/21 22:03 Magnesium Hydrox/Alum Hydrox 30 Ml Oral.Susp PO Q6H PRN Heartburn/Nausea Benztropine Mesylate 0.5 mg 04/26/21 22:03 Benztropine Mesylate 0.5 Mg Tablet PO TID PRN Extrapyramidal Effects Clonidine HCl 0.1 mg 06/25/21 21:00 06/26/21 09:06 Clonidine Hcl 0.1 Mg Tablet PO 0.1 mg BID HERON Administration Protocol Diphenhydramine HCl 50 mg 04/26/21 22:03 Diphenhydramine Hcl 25 Mg Tablet PO Q4H PRN agitation Gabapentin 100 mg 06/10/21 21:00 06/26/21 09:06 Gabapentin 100 Mg Capsule PO 100 mg BEDTIME HERON Administration Gabapentin 200 mg 06/11/21 09:00 06/26/21 09:06 Gabapentin 100 Mg Capsule PO 200 mg DAILY HERON Administration Hydroxyzine HCl 25 mg 04/26/21 22:03 06/23/21 20:26 Hydroxyzine Hcl 25 Mg Tablet PO 25 mg TID PRN Administration Anxiety Magnesium Hydroxide 30 ml 04/26/21 22:03 Milk Of Magnesia 30 Ml Oral.Susp PO DAILY PRN Constipation Nicotine 21 mg 04/26/21 22:03 Nicotine 21 Mg Patch.Td24 TRANSDERMA DAILY PRN nocotine cessation Nicotine Polacrilex 4 mg 04/26/21 22:03 06/20/21 12:44 Nicotine Polacrilex 2 Mg Gum BUCCAL 4 mg Q2H PRN Administration Nicotine Cravings Olanzapine 5 mg 04/27/21 14:16 Olanzapine 5 Mg Tablet PO BID PRN mild-moderate agitation Olanzapine 25 mg 06/17/21 12:13 Olanzapine 10 Mg Vial IM BEDTIME PRN to be given if pt refuses PO per court order Olanzapine 20 mg 06/22/21 21:00 06/25/21 20:38 Olanzapine 10 Mg Tablet PO 20 mg BEDTIME HERON Administration Olanzapine 5 mg 06/22/21 21:00 06/25/21 20:38 Olanzapine 5 Mg Tablet PO 5 mg BEDTIME HERON Administration Pharmacy Consult 1 each 04/26/21 18:33 Consult Rx Perform Med Rec MISCELLANE ONCE PRN Consult order Sertraline HCl 25 mg 06/25/21 09:00 06/26/21 09:07 Sertraline Hcl 25 Mg Tablet PO 25 mg DAILY HERON Administration Trazodone HCl 50 mg 04/26/21 22:03 Trazodone Hcl 50 Mg Tablet PO BEDTIME PRN Insomnia Allergies Allergies Allergy/AdvReac Type Severity Reaction Status Date / Time Penicillins [PCN] Allergy Unknown UNKNOWN Verified 10/05/20 19:44 Assessment & Plan Assessment & Plan (1) Schizophrenia: Qualifiers: Schizophrenia type: unspecified Qualified Code(s): F20.9 - Schizophrenia, unspecified Status: Acute Code(s): F20.9 - Schizophrenia, unspecified Assessment and Plan: 26 yo male, long history of schizophrenia, agitation, substance use, with a lapsed [facility]ane's order presents after stopping meds (reported last meds 04/23/21) disorganized and needing extra support/care in modulation of mood, psychotic sx. Pt appears to be making steady improvement with Olanzapine, as he prefers to use just Olanzapine po for his main agent for treatment. He is pending transfer to [facility]. PLAN: Section VIII Continue Olanzapine 25 mg HS. PRN's to remain Invega Sustenna was discontinued Continue Gabapentin 200 mg a.m. 100 mg p.m. Continue Clonidine 0.1 mg bid to address blood pressure elevations, possible increase as pt running some [facility]~ possibly within the next few weeks. Encourage GED prep when pt has free time to assist him in structuring time, beginning to work toward his goals. Pt reports he is working on this, and medicine changes he has requested he believes will assist him in improved concentration. Labs completed 05/22 are WNL. Will repeat on 06/26/21 and add EKG. Continue Sertraline 25 mg daily. pt request after several discussions.! Pt responding to the current plan of care. Await [facility] decision as by history, discharge to community precipitates immediate relapse with substance use, non compliance with medications and placing self in danger by returning to the streets. Freedom is aware that this is our thought process and although he disagreed, he is beginning to talk of the potential benefits for his career goals. He accepts that [facility] admission will most likely be his next interventi on. No changes in mental status today. 06/26/21: Discharge to [facility] scheduled for 06/27/21. Greater than 50% of the session was spent on counseling and/or coordination of care Reason for contiued inpatient stay Substantial Risk for: harm to self, harm to others, inability to function and rapid decompensation
[2021-06-26 18:00] VITALS: BP 117/75; PULSE 72; RESP 16; TEMP 37.2; O2SAT 98
[2021-06-26 20:52] VITALS: BP 112/79; PULSE 68
[2021-06-26] MEDS: OLANZapine 10 MG TABLET 20 MG PO (20:52)
[2021-06-26] MEDS: OLANZapine 5 MG TABLET PO (20:53)
[2021-06-27 09:53] VITALS: BP 131/70; PULSE 68
[2021-06-27] MEDS: cloNIDine HCL 0.1 MG TABLET PO (09:53)
[2021-06-27] MEDS: Gabapentin 100 MG CAPSULE 200 MG PO (09:54)
[2021-06-27] MEDS: Sertraline HCL 25 MG TABLET PO (09:54)
--- NOTE | 2021-06-27 15:28 | P.DS_ITS ---
DS: Providers Provider Date of Service: 06/27/21 Date of admission: 04/26/21 21:02 Date of discharge: 06/27/21 Primary care physician: Unknown Physician Admitting clinician: Sky Marcelo Attending physician on admission: Sky Marcelo Attending physician on discharge: Leandro Mishra Discharging clinician: Sherlyn Juarez DS: Diagnosis Discharge Diagnosis (1) Schizophrenia: Start date: 04/27/21 Status: Acute DS: Medications Discharge Medications Home Medications: Previous Rx's Medication Instructions Recorded benztropine 0.5 mg tablet 0.5 mg PO TID PRN #90 tab 04/22/21 clonidine HCl 0.1 mg tablet 0.1 mg PO BID #60 tab 06/27/21 gabapentin 100 mg capsule 100 mg PO BEDTIME #30 cap 06/27/21 gabapentin 100 mg capsule 200 mg PO DAILY #60 cap 06/27/21 nicotine 21 mg/24 hr daily 21 mg TRANSDERMAL DAILY PRN #30 ea 06/27/21 transdermal patch olanzapine 10 mg tablet 20 mg PO BEDTIME #30 tab 06/27/21 olanzapine 5 mg tablet 5 mg PO BEDTIME #30 tab 06/27/21 olanzapine 5 mg tablet 5 mg PO BID PRN #60 tab 06/27/21 sertraline 25 mg tablet 25 mg PO DAILY #30 tab 06/27/21 trazodone 50 mg tablet 50 mg PO BEDTIME PRN #30 tab 06/27/21 Mental Status Exam Mental Status Exam Patient Appearance: Appropriate Patient Orientation: Person, Place and Situation Level of Consciousness: Alert Patient Behavior: Guarded, Talkative, Anxious and Good Eye Contact Mood Description: Flat Affect Description: Flat Patient Cognition Impaired: No Ability to Follow Directions: Good Speech Pattern: Spontaneous Speech Memory Description: Episodic Impaired Hallucinations: None Delusions: Not Present and Paranoid Ideation (at times) Thought Process: Goal Oriented Thought Content: positive for Goal Oriented and positive for Suicidal Ideation (denies) Judgement: Fair Data Data Completed and Pending Completed studies during hospitalization [Text1]: 06/26/21 06/26/21 06/26/21 12:25 12:41 12:41 WBC 4.9 RBC 5.00 Hgb 15.1 Hct 43.3 MCV 86.6 MCH 30.2 MCHC 34.9 RDW 11.9 Plt Count 187 MPV 9.1 L Immature Gran % (Auto) 0.0 Neut % (Auto) 50.2 Lymph % (Auto) 37.9 Bates % (Auto) 10.5 Eos % (Auto) 1.0 Baso % (Auto) 0.4 Lymph # (Auto) 1.8 Bates # (Auto) 0.5 Eos # (Auto) 0.1 Baso # (Auto) 0.0 Abs Immat Gran (auto) 0.00 Absolute Neuts (auto) 2.4 Absolute Nucleated RBC 0.000 Nucleated RBC % (auto) 0.0 Sodium 140 Potassium 4.4 Chloride 106 Carbon Dioxide 26 Anion Gap 12 BUN 15 Creatinine 1.02 Estim Creat Clear Calc 127.7 Estimated GFR > 60 Random Glucose 95 Estimat Average Glucose Hemoglobin A1c % Calcium 9.9 Total Bilirubin 0.6 AST 19 ALT 26 Alkaline Phosphatase 76 Total Protein 6.8 Albumin 4.6 Triglycerides 298 Cholesterol 160 LDL Cholesterol, Calc 77 HDL Cholesterol 24 Vitamin B12 Folate TSH 1.92 Coronavirus (PCR) NEGATIVE Influenza Type A (PCR) NEGATIVE Influenza Type B (PCR) NEGATIVE RSV RNA Qual (PCR) NEGATIVE 06/26/21 06/26/21 12:41 12:41 WBC RBC Hgb Hct MCV MCH MCHC RDW Plt Count MPV Immature Gran % (Auto) Neut % (Auto) Lymph % (Auto) Bates % (Auto) Eos % (Auto) Baso % (Auto) Lymph # (Auto) Bates # (Auto) Eos # (Auto) Baso # (Auto) Abs Immat Gran (auto) Absolute Neuts (auto) Absolute Nucleated RBC Nucleated RBC % (auto) Sodium Potassium Chloride Carbon Dioxide Anion Gap BUN Creatinine Estim Creat Clear Calc Estimated GFR Random Glucose Estimat Average Glucose 97 Hemoglobin A1c % 5.0 Calcium Total Bilirubin AST ALT Alkaline Phosphatase Total Protein Albumin Triglycerides Cholesterol LDL Cholesterol, Calc HDL Cholesterol Vitamin B12 Pending Folate Pending TSH Coronavirus (PCR) Influenza Type A (PCR) Influenza Type B (PCR) RSV RNA Qual (PCR) DS: Summary Hospital Course Hospital Course: Feredom is a 26 yo male with a history of paranoid schizophrenia and cannabis use disorder. He has had several admissions this year related to psychiatric decompensation, cannabis abuse, leaving residential programs, respite services and being chronically homeless for a period of time. This admission was similiar with increased concern for his safety and well being given his chronic pattern of decompensation and destruction along with failure of aftercare plans put in place. As a result the team pursued a Section VII with the court and was authorized to treat Freedom on a Section VIII. Invega Sustenna was used with success over time. Pt, while angry to be in hospital and not allowed to be on his own, was gradually more realistic about his need for treatment and enhanced services in community. An application was made to [facility] and [facility] accepted him. 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 He reported he found PO Olanzapine to be more helpful than Invega Sustenna as it was less sedating and less impairing of his concentration. This being very important as his goal was to complete his GED and apply for college. Invega Sustenna was stopped, Olanzapine was initiated, along with low dose Gabapentin (300 mg), Sertraline and Clonidine which he reported was an improvement for him. He was able to work well with the nursing and social service teams, and although not a regular group participant, involved himself in the milieu in ways which he felt comfortable with. He was transferred to [facility] with hopes of assistance in completing GED, beginning work, and getting assistance in application to college. Time spent discussing smoking cessation with patient: 3 to 10 minutes Status at Discharge Cognitive/behavioral status at discharge: non-suicidal, pleased about this transfer as it will assist him in meeting some of his personal goals for the future. Functional status at discharge: independent ambulation Overall status at discharge: patient is back to baseline Time Spent with Patient Time attestation: Total time spent providing and/or coordinating discharge services:35 Time spent: Greater than 30 minutes Discharge Plan Discharge Anticipated Discharge Date/Time: 06/27/21 13:00 Patient Disposition: Xfer Psychiatric Hosp Discharge Diagnosis: Schizophrenia, paranoid type Cannabis use disorder, severe, dependence Discharge Medications: New clonidine HCl 0.1 mg Tablet 0.1 mg PO BID Qty: 60 RF: 0 trazodone 50 mg Tablet 50 mg PO BEDTIME PRN (Reason: Insomnia) Qty: 30 RF: 0 olanzapine 5 mg Tablet 5 mg PO BID PRN (Reason: mild-moderate agitation) Qty: 60 RF: 0 olanzapine 5 mg Tablet 5 mg PO BEDTIME Qty: 30 RF: 0 olanzapine 10 mg Tablet 20 mg PO BEDTIME Qty: 30 RF: 0 nicotine 21 mg/24 hr Patch 24 Hour 21 mg transdermal DAILY PRN (Reason: nocotine cessation) Qty: 30 RF: 0 sertraline 25 mg Tablet 25 mg PO DAILY Qty: 30 RF: 0 gabapentin 100 mg Capsule 200 mg PO DAILY Qty: 60 RF: 0 gabapentin 100 mg Capsule 100 mg PO BEDTIME Qty: 30 RF: 0 Continued benztropine 0.5 mg Tablet 0.5 mg PO TID PRN (Reason: Extrapyramidal Effects) Qty: 90 RF: 0 Discontinued olanzapine 10 mg Tablet 10 mg PO BEDTIME 30 Days Qty: 30 RF: 0 Invega Sustenna 156 mg/mL syringe 156 mg IM QMONTH 30 Days Qty: 1 RF: 1 trazodone 50 mg Tablet 50 mg PO BEDTIME PRN (Reason: Insomnia) Qty: 30 RF: 0 Discharge Orders: Discharge Order (Routine); Ordered 06/27/21 Ordered By: Sherlyn Juarez Diet: advance to usual diet Activity on Discharge: As tolerated Stand Alone Forms: Patient Portal Discharge page, Community Support Care Plan Goals: Mood stabilization Sobriety Health Concerns: Schizophrenia Plan of Treatment: Transfer to [facility] Labs and EKG are updated and copies will be sent for review Assessment: Pt anticipating admission. He would like assistance to completed GED and begin some college courses if possible. He reports he has been to [facility] in the past and found it to be helpful. Non-suicidal, intermittent paranoia, perceptual alterations. Discharge Date/Time: 06/27/21 13:00
[2021-06-29 11:53] LABS: Folate 11.5 ng/mL (> or = 4.0); Vitamin B12 472 pg/mL (200-900)
== END 2021-06-27 13:00 | DRG 750 ==
LOC: HO.ED 15:38 → HO.PM5 21:08
PROVIDERS: Admitting Provider Psychiatry & Neurology Psychiatry; Emergency Provider Emergency Medicine; Visit Provider Clinical Nurse Specialist Psychiatric/Mental Health, Adult
DX: F20.0 Paranoid schizophrenia (principal); Z91.14 Patient's other noncompliance with medication regimen; F12.20 Cannabis dependence, uncomplicated; Z20.822 Contact with and (suspected) exposure to COVID-19; Z88.0 Allergy status to penicillin; Z79.899 Other long term (current) drug therapy
CPT/HCPCS: 0241U; 36415; 80053; 80061; 82607; 82746; 83036; 84443; 85025; 87635; 93005; 99285; J2426

== ENCOUNTER 2021-12-12 23:26 | Emergency (ER) | payer MEDICAID, SELFPAY ==
[2021-12-12 23:28] VITALS: BP 145/86; PULSE 75; RESP 16; TEMP 36.4; O2SAT 95; BMI 34.0
--- NOTE | 2021-12-12 23:43 | ED_ITS ---
HPI - Medical Clearance General Chief complaint: Medical Clearance Stated complaint: med clearance; drug & covid tests Time Seen by Provider: 12/12/21 23:38 Source: patient Mode of arrival: ambulatory Limitations: no limitations History of Present Illness complaint: medical clearance requested Onset (ago): day(s) (1) Reason for Medical Clearance: other (out of sober house needs drug test and COVID swab to return) Place: home Alleged Intoxication: No Compliant with Home Medications: Yes Traumatic Symptoms: denies traumatic injury Associated Symptoms: denies other symptoms Treatments Prior to Arrival: none Related Information Previous Rx's Medication Instructions Recorded benztropine 0.5 mg tablet 0.5 mg PO TID PRN #90 tab 04/22/21 clonidine HCl 0.1 mg tablet 0.1 mg PO BID #60 tab 06/27/21 gabapentin 100 mg capsule 100 mg PO BEDTIME #30 cap 06/27/21 gabapentin 100 mg capsule 200 mg PO DAILY #60 cap 06/27/21 nicotine 21 mg/24 hr daily 21 mg TRANSDERMAL DAILY PRN #30 ea 06/27/21 transdermal patch olanzapine 10 mg tablet 20 mg PO BEDTIME #30 tab 06/27/21 olanzapine 5 mg tablet 5 mg PO BEDTIME #30 tab 06/27/21 olanzapine 5 mg tablet 5 mg PO BID PRN #60 tab 06/27/21 sertraline 25 mg tablet 25 mg PO DAILY #30 tab 06/27/21 trazodone 50 mg tablet 50 mg PO BEDTIME PRN #30 tab 06/27/21 Allergies Allergy/AdvReac Type Severity Reaction Status Date / Time Penicillins [PCN] Allergy Unknown UNKNOWN Verified 12/12/21 23:33 Review of Systems Verdana 4l Review of Systems: Verdana 4d Verdana 4d Constitutional : No Fever, No Chills, Cardiovascular : No Chest Pain, No SOB Respiratory : No Dyspnea Gastrointestinal : No abdominal pain Musculoskeletal : No Joint Swelling Skin : No rash, no skin laceration Neuro : No Weakness, No NumbnessNumbness Psych : No SI/HI PMFSH Past Medical History Attestation statement: The following information was validated with the patient. Medical History Chronic schizophrenia PTSD (post-traumatic stress disorder) Schizoaffective disorder Surgical History Hx of hand surgery Social History Social History Household Members: Other Household Members Other:: [facility] Housing: Other Housing Other:: [facility] Do you presently have visiting nurse or other home services: No Unable to assess alcohol history related to: Refusing to respond Alcohol intake: current Alcohol intake frequency: does not drink Patient Tobacco Use Status: Current everyday Tobacco user Tobacco use type: Cigar Cigarette Packs Per Day: 0.5 Cigarettes Per Day: 5 Years Smoked: 10 Second Hand Smoke Exposure: Yes Substance Use Type: Marijuana Advance Directives: No Advance Directives Information Provided: No service: No Sexual orientation: Straight/Heterosexual Physical Exam Verdana 4l Vital Signs: Verdana 4d Verdana 4d Vital Signs: Verdana 4d Verdana 4Bd Last Vital Signs Verdana 4d Shaving Machine Operator New 4d Shaving Machine Operator New 4d Temp 97.6 F 12/12/21 23:28 Shaving Machine Operator New 4d Pulse 75 12/12/21 23:28 Shaving Machine Operator New 4d Resp 16 12/12/21 23:28 BP 145/86 H 12/12/21 23:28 Pulse Ox 95 12/12/21 23:28 BMI result Body Mass Index 34.0 Appearance: Alert. Oriented X3. No acute distress. Eyes: Pupils equal, round and reactive to light. ENT: Pharynx normal. Neck: Normal inspection. Neck supple. CVS: Normal heart rate and rhythm. Pulses normal. Respiratory: No respiratory distress. Breath sounds normal. Abdomen: Soft and non-tender. Skin: Skin warm and dry. Normal skin color. Extremities: No lower extremity edema. Neuro: Oriented X 3. No motor deficit. No sensory deficit. Course Course Course Narrative: + for opiates and fentanyl but no signs of overdose at this time clinically stable, handed narcan to go home with obs x 44 minutes denies recent use MDM - Medical Clearance MDM Narrative Medical decision making narrative: 26 yo male requesting COVID test and drug screen to return to sober house - denies any concerns or complaints at this time, GCS 15, stable VS. Tests ordered. Lab Data Labs: Lab Results 12/12/21 12/12/21 Range/Units 23:38 23:40 Urine Opiates Screen POSITIVE H (Not Detect) Urine Fentanyl Screen POSITIVE H (Not Detect) Ur Barbiturates Screen Not Detected (Not Detect) Ur Phencyclidine Scrn Not Detected (Not Detect) Ur Amphetamines Screen Not Detected (Not Detect) U Benzodiazepines Scrn Not Detected (Not Detect) Urine Cocaine Screen Not Detected (Not Detect) U Marijuana (THC) Screen POSITIVE H (Not Detect) COVID-19 (JINNY) Negative (Negative) COVID-19 Clin Com See Note Discharge Plan Discharge Clinical Impression: Encounter for medical screening examination Patient Disposition: Home, Self-Care Instructions: Normal Exam (ED) Additional Instructions: return to ED for any worsening symptoms or concerns COVID NEGATIVE POSITIVE DRUG SCREEN FOR OPIATES, FENTANYL, MARIJUANA Prescriptions: No Action benztropine 0.5 mg Tablet 0.5 mg PO TID PRN (Reason: Extrapyramidal Effects) Qty: 90 0RF clonidine HCl 0.1 mg Tablet 0.1 mg PO BID Qty: 60 0RF Protocol: Hold for SBP< HOLD for SBP < : 90 trazodone 50 mg Tablet 50 mg PO BEDTIME PRN (Reason: Insomnia) Qty: 30 0RF olanzapine 5 mg Tablet 5 mg PO BID PRN (Reason: mild-moderate agitation) Qty: 60 0RF olanzapine 5 mg Tablet 5 mg PO BEDTIME Qty: 30 0RF olanzapine 10 mg Tablet 20 mg PO BEDTIME Qty: 30 0RF nicotine 21 mg/24 hr Patch 24 Hour 21 mg transdermal DAILY PRN (Reason: nocotine cessation) Qty: 30 0RF sertraline 25 mg Tablet 25 mg PO DAILY Qty: 30 0RF gabapentin 100 mg Capsule 200 mg PO DAILY Qty: 60 0RF gabapentin 100 mg Capsule 100 mg PO BEDTIME Qty: 30 0RF
[2021-12-13 00:06] LABS: COVID-19 Test Negative (Negative); IDNOW Serial# 9DD0AD1C
[2021-12-13 00:10] LABS: Amphetamine Screen Urine Not Detected (Not Detect); Barbiturates, Urine Not Detected (Not Detect); Benzodiazepines Screen Urine Not Detected (Not Detect); Cannabinoid Screen Urine POSITIVE (Not Detect); Cocaine Screen Urine Not Detected (Not Detect); Fentanyl, urine POSITIVE (Not Detect); Opiate Screen Urine POSITIVE (Not Detect); Phencyclidine Screen Urine Not Detected (Not Detect)
[2021-12-13] MEDS: Naloxone HCl Nasal TAKE HOME 4 MG SPRAY NOSTRILALT (00:15)
== END 2021-12-13 00:17 | disposition home or self-care (01) ==
PROVIDERS: Emergency Provider Emergency Medicine; PCP Nurse Practitioner Adult Health
DX: Z02.2 Encounter for examination for admission to residential institution (principal); Z02.83 Encounter for blood-alcohol and blood-drug test; Z20.822 Contact with and (suspected) exposure to COVID-19
CPT/HCPCS: 80307; 87635; 99283

== ENCOUNTER 2022-01-28 13:09 | Emergency (ER) | payer MEDICAID, SELFPAY ==
[2022-01-28 14:04] VITALS: BP 110/61; PULSE 80; RESP 18; TEMP 36.7; O2SAT 96; BMI 32.5
--- NOTE | 2022-01-28 15:02 | ED.MEDCLEAR ---
HPI - Medical Clearance General Chief complaint: Medical Clearance Stated complaint: med clearence Time Seen by Provider: 01/28/22 15:00 Source: patient Mode of arrival: ambulatory Limitations: no limitations History of Present Illness HPI Narrative: Patient is a 26 year old male presenting to the emergency department today for medical clearance to go back to his skilled nursing. Patient states that he smoked purple haze marijuana today and needs to have a urine drug screen and a rapid COVID-19 test to return to his skilled nursing. Patient denies any dizziness, lightheadedness, abdominal pain, nausea, vomiting, fever, chills, blurry vision, double vision, loss of vision, chest pain, difficulty breathing, shortness of breath, back pain, night sweats, pain with urination, increased urinary frequency, increased urinary urgency, blood in his urine or stool, syncope or a near syncopal episode, recent trauma or falls, bowel incontinence, bladder incontinence, bowel retention, bladder retention, or any other complaints at this time. MD complaint: medical clearance requested Place: home Alleged Intoxication: Yes Traumatic Symptoms: denies traumatic injury Associated Symptoms: denies other symptoms Treatments Prior to Arrival: none Related Information Previous Rx's Medication Instructions Recorded benztropine 0.5 mg tablet 0.5 mg PO TID PRN #90 tab 04/22/21 clonidine HCl 0.1 mg tablet 0.1 mg PO BID #60 tab 06/27/21 gabapentin 100 mg capsule 100 mg PO BEDTIME #30 cap 06/27/21 gabapentin 100 mg capsule 200 mg PO DAILY #60 cap 06/27/21 nicotine 21 mg/24 hr daily 21 mg TRANSDERMAL DAILY PRN #30 ea 06/27/21 transdermal patch olanzapine 10 mg tablet 20 mg PO BEDTIME #30 tab 06/27/21 olanzapine 5 mg tablet 5 mg PO BEDTIME #30 tab 06/27/21 olanzapine 5 mg tablet 5 mg PO BID PRN #60 tab 06/27/21 sertraline 25 mg tablet 25 mg PO DAILY #30 tab 06/27/21 trazodone 50 mg tablet 50 mg PO BEDTIME PRN #30 tab 06/27/21 Allergies Allergy/AdvReac Type Severity Reaction Status Date / Time Penicillins [PCN] Allergy Unknown UNKNOWN Verified 12/12/21 23:33 Review of Systems Constitutional: Constitutional: Reports no additional constitutional complaints, Denies chills, Denies fever(s) and Denies night sweats Eyes: Eyes: Reports no additional eye complaints, Denies blurry vision, Denies change in vision, Denies diplopia, Denies eye discharge, Denies loss of vision and Denies eye pain ENT: Denies dizziness Cardiovascular: Cardiovascular: Reports no additional cardiovascular complaints, Denies chest pain, Denies lightheadedness, Denies Loss of Consciousness and Denies dyspnea Respiratory: Respiratory: Reports no additional respiratory complaints and Denies dyspnea Gastrointestinal: Gastrointestinal: Reports no additional gastrointestinal complaints, Denies abdominal pain, Denies melena, Denies hematochezia, Denies change in bowel habits and Denies change in stool character Genitourinary: Genitourinary: Reports no additional male genitourinary complaints, Denies hematuria, Denies oliguria, Denies difficulty urinating, Denies dysuria, Denies urinary frequency, Denies urinary hesitancy, Denies urinary incontinence and Denies urinary urgency Musculoskeletal: Musculoskeletal: Reports no additional musculoskeletal complaints, Denies numbness and Denies tingling Neurologic: Denies dizziness, Denies loss of vision, Denies numbness and Denies tingling Psychiatric: Psychiatric: Reports no additional psychiatric complaints Endocrine: Endocrine: Reports no additional endocrine complaints Hematologic/Lymphatic: Hematologic/Lymphatic: Reports no additional hematologic/lymphatic complaints Allergic/Immunologic: Allergic/Immunologic: Reports no additional allergic/immunologic complaints [facility]LY [facility] Past Medical History Attestation statement: The following information was validated with the patient. Source: old records reviewed Medical History Chronic schizophrenia PTSD (post-traumatic stress disorder) Schizoaffective disorder Surgical History Hx of hand surgery Social History Social History Household Members: Other Household Members Other:: skilled nursing Housing: Other Housing Other:: skilled nursing Do you presently have visiting nurse or other home services: No Unable to assess alcohol history related to: Refusing to respond Alcohol intake: current Alcohol intake frequency: does not drink Patient Tobacco Use Status: Current everyday Tobacco user Tobacco use type: Cigar Cigarette Packs Per Day: 0.5 Cigarettes Per Day: 5 Years Smoked: 10 Second Hand Smoke Exposure: Yes Substance Use Type: Marijuana Advance Directives: No Advance Directives Information Provided: No service: No Sexual orientation: Straight/Heterosexual Physical Exam Vital Signs: Vital Signs: Last Vital Signs Temp 98.1 F 01/28/22 14:04 Pulse 80 01/28/22 14:04 Resp 18 01/28/22 14:04 BP 110/61 01/28/22 14:04 Pulse Ox 96 01/28/22 14:04 BMI result Body Mass Index 32.5 Const: General: cooperative, no acute distress, alert and awake Nutritional Appearance: well nourished Orientation/consciousness: patient oriented x3 Limitations: no limitations HENMT: Head: Yes normal to inspection and Yes atraumatic Ears: hearing grossly normal bilaterally and external ears normal General nose exam: Normal external nose present, no nasal discharge noted and no epistaxis Face and sinus: Yes normal facial exam, No abrasion and No laceration Mouth: Normal oral and palatal mucosa present, no drooling and no muffled voice Eyes: General: appearance normal, both eyes and all related structures Periorbital: periorbital findings normal Eyelids: Yes eyelids normal Conjunctivae: conjunctivae normal Pupils: Equal, round and reactive pupils present EOM: EOMs intact bilaterally Neck: Neck: Yes normal visual inspection, Yes full ROM and Yes no lymphadenopathy Chest: Chest palpation & inspection: normal inspection of the chest Resp: Effort & Inspection: normal respiratory effort and able to speak in complete sentences Auscultation: clear to auscultation bilaterally Cardio: Rate: regular rate Rhythm: regular rhythm GI: Inspection: Yes normal to inspection Neuro: General: patient oriented x3 and moves all extremities Cranial nerves: Yes Equal, round and reactive pupils present Cognition (Neuro): normal cognition Motor exam (neuro): 5/5 motor strength present throughout Sensory Exam: Normal double simultaneous stimulation for sensation Coordination: [id number] test normal Extrem: General: Yes normal to inspection, Yes full ROM and Yes capillary refill normal Psych: Appearance: grossly normal Mental Status: mental status grossly normal Affect: normal affect Attitude: cooperative Thought process: Normal thought process present Thought content: Normal thought content present Insight: Good insight present (Psych) MDM - Medical Clearance MDM Narrative Medical decision making narrative: Patient is a 26 year old male presenting to the emergency department today requesting medical clearance to return to his place of residence. Patient's physical exam was unremarkable. Patient's rapid COVID-19 test was negative and his urine drug screen was positive for only marijuana. I explained my physical exam findings as well as all test results to the patient. I answered all questions asked by the patient. I stressed the importance of the patient taking his medication as prescribed. I stressed the importance of the patient following up with his primary care provider. I stressed the importance of the patient returning to the emergency department immediately if he were to develop any dizziness, shortness of breath, difficulty breathing, chest pain, blurry vision, loss of vision, nausea, vomiting, abdominal pain, fever, chills, back pain, or any other complaints. Patient verbalized agreement and understanding with this treatment plan and discharge. Medical Records Attestation: I reviewed the patient's medical records. Lab Data Attestation: I reviewed the patient's lab results. Labs: Lab Results 01/28/22 01/28/22 Range/Units 15:11 15:11 Urine Opiates Screen Not Detected (Not Detect) Urine Fentanyl Screen Not Detected (Not Detect) Ur Barbiturates Screen Not Detected (Not Detect) Ur Phencyclidine Scrn Not Detected (Not Detect) Ur Amphetamines Screen Not Detected (Not Detect) U Benzodiazepines Scrn Not Detected (Not Detect) Urine Cocaine Screen Not Detected (Not Detect) U Marijuana (THC) Screen POSITIVE H (Not Detect) COVID-19 (JINNY) Negative (Negative) COVID-19 Clin Com See Note Discharge Plan Discharge Clinical Impression: Marijuana use Patient Disposition: Home, Self-Care Instructions: Normal Exam (ED) Additional Instructions: Follow up with your primary care provider. Return to the emergency department immediately if your symptoms worsen or if you develop any dizziness, shortness of breath, difficulty breathing, chest pain, blurry vision, loss of vision, nausea, vomiting, abdominal pain, fever, chills, back pain, or any other complaints. Prescriptions: No Action benztropine 0.5 mg Tablet 0.5 mg PO TID PRN (Reason: Extrapyramidal Effects) Qty: 90 0RF clonidine HCl 0.1 mg Tablet 0.1 mg PO BID Qty: 60 0RF Protocol: Hold for SBP< HOLD for SBP < : 90 trazodone 50 mg Tablet 50 mg PO BEDTIME PRN (Reason: Insomnia) Qty: 30 0RF olanzapine 5 mg Tablet 5 mg PO BID PRN (Reason: mild-moderate agitation) Qty: 60 0RF olanzapine 5 mg Tablet 5 mg PO BEDTIME Qty: 30 0RF olanzapine 10 mg Tablet 20 mg PO BEDTIME Qty: 30 0RF nicotine 21 mg/24 hr Patch 24 Hour 21 mg transdermal DAILY PRN (Reason: nocotine cessation) Qty: 30 0RF sertraline 25 mg Tablet 25 mg PO DAILY Qty: 30 0RF gabapentin 100 mg Capsule 200 mg PO DAILY Qty: 60 0RF gabapentin 100 mg Capsule 100 mg PO BEDTIME Qty: 30 0RF Referrals: Rena Aguilera NP [Primary Care Provider] - 2 days Interventions: ED Discharge Assessment Last Done: 01/28/22 15:42 Print Language: Yi
[2022-01-28 15:33] LABS: Amphetamine Screen Urine Not Detected (Not Detect); Barbiturates, Urine Not Detected (Not Detect); Benzodiazepines Screen Urine Not Detected (Not Detect); Cannabinoid Screen Urine POSITIVE (Not Detect); Cocaine Screen Urine Not Detected (Not Detect); Fentanyl, urine Not Detected (Not Detect); Opiate Screen Urine Not Detected (Not Detect); Phencyclidine Screen Urine Not Detected (Not Detect)
[2022-01-28 15:35] LABS: COVID-19 Test Negative (Negative)
== END 2022-01-28 15:42 | disposition home or self-care (01) ==
PROVIDERS: Physician Assistant Medical; Emergency Provider Emergency Medicine; PCP Nurse Practitioner Adult Health
DX: Z02.2 Encounter for examination for admission to residential institution (principal); F12.90 Cannabis use, unspecified, uncomplicated; Z20.822 Contact with and (suspected) exposure to COVID-19; F17.200 Nicotine dependence, unspecified, uncomplicated; F20.9 Schizophrenia, unspecified; Z79.899 Other long term (current) drug therapy
CPT/HCPCS: 80307; 87635; 99283; 99284

== ENCOUNTER 2022-06-22 00:04 | Emergency (ER) | payer MEDICAID, SELFPAY ==
[2022-06-22 00:09] VITALS: BP 120/64; PULSE 113; RESP 18; TEMP 36.8; O2SAT 95; BMI 32.5
--- NOTE | 2022-06-22 01:22 | ED.MEDCLEAR ---
HPI - Medical Clearance General Chief complaint: Medical Clearance Stated complaint: medical clearance Time Seen by Provider: 06/22/22 01:12 Source: patient Mode of arrival: other (Bicycle) Limitations: other (etoh intoxication) History of Present Illness HPI Narrative: 27 year old male with a history of schizophrenia, depression presents to the ED with ETOH intoxication. He has lived in residential home ([facility]) for 9 months. Patient reports that he had a pass to leave the home today and decided to drink with his sister. He reports consuming 7 beers and one shot of fireball. Prior to this he reports being sober for 7 months. Before returning home tonight he decided to ride his bicycle 6 miles to our ED for a tox screen, as he knew this would be required of him to return back to the home. Patient tells me that an employee from the home is willing to pick him up upon discharge. Denies any illicit drug or tobacco use. Denies any falls or hitting his head. Denies any other medical concerns. Denies SI and Hi. Denies VH,AH,TH complaint: medical clearance requested Related Information Previous Rx's Medication Instructions Recorded benztropine 0.5 mg tablet 0.5 mg PO TID PRN Extrapyramidal 04/22/21 Effects #90 tabs clonidine HCl 0.1 mg tablet 0.1 mg PO BID #60 tabs 06/27/21 gabapentin 100 mg capsule 100 mg PO BEDTIME #30 caps 06/27/21 gabapentin 100 mg capsule 200 mg PO DAILY #60 caps 06/27/21 nicotine 21 mg/24 hr daily 21 mg transdermal DAILY PRN 06/27/21 transdermal patch nocotine cessation #30 ea olanzapine 10 mg tablet 20 mg PO BEDTIME #30 tabs 06/27/21 olanzapine 5 mg tablet 5 mg PO BEDTIME #30 tabs 06/27/21 olanzapine 5 mg tablet 5 mg PO BID PRN mild-moderate 06/27/21 agitation #60 tabs sertraline 25 mg tablet 25 mg PO DAILY #30 tabs 06/27/21 trazodone 50 mg tablet 50 mg PO BEDTIME PRN Insomnia #30 06/27/21 tabs Allergies Allergy/AdvReac Type Severity Reaction Status Date / Time Penicillins [PCN] Allergy Unknown UNKNOWN Verified 12/12/21 23:33 Review of Systems Review of Systems: Constitutional : No Weight loss, No Fever, No Chills, No Fatigue, No Malaise ENT/Mouth : No sore throat, No Rhinorrhea Eyes: No Eye Pain, No Swelling, No Redness Cardiovascular : No Chest Pain, No SOB, No Dyspnea on Exertion, No Orthopnea, No Edema, No Palpitations Respiratory : No Cough, No Sputum, No Wheezing Gastrointestinal : No Nausea, No Vomiting, No Diarrhea, No Constipation, No abdominal Pain, No Hematochezia, No Melena Genitourinary : No Dysuria, No Urinary Frequency, No Hematuria, Musculoskeletal : No joint pain, No Myalgias, No Joint Swelling Skin : No Skin Lesions, No rash Neuro : No Weakness, No Numbness, No Dizziness, No Headache Psych : No Anxiety/Panic, No Depression All other systems reviewed and are negative Yes all other systems are reviewed and are negative [facility] Past Medical History Attestation statement: The following information was validated with the patient. Source: old records reviewed and nursing notes reviewed Medical History Chronic schizophrenia PTSD (post-traumatic stress disorder) Schizoaffective disorder Surgical History Hx of hand surgery Social History Social History Household Members: Other Household Members Other:: long term Housing: Other Housing Other:: long term Do you presently have visiting nurse or other home services: No Unable to assess alcohol history related to: Refusing to respond Alcohol intake: current Alcohol intake frequency: does not drink Patient Tobacco Use Status: Current everyday Tobacco user Tobacco use type: Cigar Cigarette Packs Per Day: 0.5 Cigarettes Per Day: 5 Years Smoked: 10 Second Hand Smoke Exposure: Yes Substance Use Type: Marijuana Advance Directives: No Advance Directives Information Provided: No service: No Sexual orientation: Straight/Heterosexual Physical Exam Vital Signs: Vital Signs: Last Vital Signs Temp 98.3 F 06/22/22 00:09 Pulse 113 H 06/22/22 00:09 Resp 18 06/22/22 00:09 BP 120/64 06/22/22 00:09 Pulse Ox 95 06/22/22 00:09 O2 Del Method 06/22/22 00:09 BMI result Body Mass Index 32.5 VSS Appearance: Alert.? Oriented X3.? No acute distress.? Head: Normocephalic, atraumatic, no step-offs or deformities Eyes: Pupils equal, round and reactive to light.?Sclera injected bilaterally. Neck: Normal inspection.? Neck supple.? CVS: Normal heart rate and rhythm.? Pulses normal.? Respiratory: No respiratory distress.? Breath sounds normal.? Abdomen: Soft and nontender.? Skin: Skin warm and dry.? Normal skin color.? Normal skin turgor.? Extremities: No lower extremity edema.? No calf ttp. 5/5 strength to bilateral upper and lower extremities Neuro: Oriented X 3.? No motor deficit.? No sensory deficit. CN 2-12 intact. Ambulating w/ steady gait and normal cordination Course Reevaluation(s) Reevaluation #1: Patient eating and drinking Patient has a safe ride home. He is ambulating with steady gait. No medical complaints at this time. Patient will be discharged and somebody from his program (resource recovery engineer) will pick him up. Time: 02:32 Reevaluation #2: Urine tox negative. Ethanol level 67 Time: 02:47 MDM - Medical Clearance MDM Narrative Medical decision making narrative: 1:15 Patient presents for medical clearance secondary to ETOH intoxication, previously sober for 7 months. HX of schizophrenia residing at a residential home. PE benign with stable vitals. Plan medical clearance and d/c back to facility if appropriate. Medical Records Attestation: I reviewed the patient's medical records. Lab Data Attestation: I reviewed the patient's lab results. Critical Care Time Critical Care Time Critical Care Time: No Discharge Plan Discharge Clinical Impression: Alcohol intoxication, Encounter for medical screening examination Patient Disposition: Home, Self-Care Instructions: Alcohol Intoxication (ED) Additional Instructions: Take your medications as prescribed. If you were prescribed antibiotics today, it is important that you take your medication to their entirety, do not skip any doses, do not finish them early. Follow-up with your primary care provider this week. Return to the emergency department with new or worsening symptoms. Such as fevers, chills, chest pain, shortness of breath, nausea, vomiting, dizziness, headache, vision changes, lethargy In case of emergency call 911 At this time your medically cleared and can go back to your program Prescriptions: No Action benztropine 0.5 mg Tablet 0.5 mg PO TID PRN (Reason: Extrapyramidal Effects) Qty: 90 0RF clonidine HCl 0.1 mg Tablet 0.1 mg PO BID Qty: 60 0RF Protocol: Hold for SBP< HOLD for SBP < : 90 trazodone 50 mg Tablet 50 mg PO BEDTIME PRN (Reason: Insomnia) Qty: 30 0RF olanzapine 5 mg Tablet 5 mg PO BID PRN (Reason: mild-moderate agitation) Qty: 60 0RF olanzapine 5 mg Tablet 5 mg PO BEDTIME Qty: 30 0RF olanzapine 10 mg Tablet 20 mg PO BEDTIME Qty: 30 0RF nicotine 21 mg/24 hr Patch 24 Hour 21 mg transdermal DAILY PRN (Reason: nocotine cessation) Qty: 30 0RF sertraline 25 mg Tablet 25 mg PO DAILY Qty: 30 0RF gabapentin 100 mg Capsule 200 mg PO DAILY Qty: 60 0RF gabapentin 100 mg Capsule 100 mg PO BEDTIME Qty: 30 0RF Referrals: Rena Aguilera NP [Primary Care Provider] - 2 days Stand Alone Forms: Work/School Release
[2022-06-22 02:37] LABS: Amphetamine Screen Urine Not Detected (Not Detect); Barbiturates, Urine Not Detected (Not Detect); Benzodiazepines Screen Urine Not Detected (Not Detect); Cannabinoid Screen Urine Not Detected (Not Detect); Cocaine Screen Urine Not Detected (Not Detect); Fentanyl, urine Not Detected (Not Detect); Opiate Screen Urine Not Detected (Not Detect); Phencyclidine Screen Urine Not Detected (Not Detect)
[2022-06-22 02:45] VITALS: BP 114/58; PULSE 84; RESP 16; TEMP 36.1; O2SAT 98
[2022-06-22 02:45] LABS: Ethanol 67 mg/dL
== END 2022-06-22 02:55 | disposition home or self-care (01) ==
PROVIDERS: Physician Assistant; Emergency Provider Emergency Medicine Emergency Medical Services; PCP Nurse Practitioner Adult Health
DX: Z02.2 Encounter for examination for admission to residential institution (principal); F10.920 Alcohol use, unspecified with intoxication, uncomplicated; Y90.3 Blood alcohol level of 60-79 mg/100 ml; F20.9 Schizophrenia, unspecified; Z79.899 Other long term (current) drug therapy
CPT/HCPCS: 36415; 80307; 82077; 99283

== ENCOUNTER 2023-04-08 08:25 | Inpatient (IN) | payer OTHER, SELFPAY ==
[2023-04-08] VITALS (31 sets, daily range): BP systolic 82–151; BP diastolic 41–100; PULSE 63–140; RESP 16–40; TEMP 34.9–40.1; O2SAT 85–98; BMI 28.2; BMI 27.8; BMI 27.0
--- NOTE | ~2023-04-08 | XR_ITS ---
EXAMINATION: XR CHEST CLINICAL INFORMATION: Status post chest tube placement. COMPARISON: Chest 04/08/2023. TECHNIQUE: Frontal view of the chest was obtained. FINDINGS: The left basilar chest tube has been replaced with a new chest tube along the left lateral mid chest with its tip in mid to lower lung. There is resolution of previously seen pneumothorax. Tip of endotracheal tube is 3.9 cm above the cory. There are bilateral patchy opacities which are stable right greater than left. No gross bony abnormality seen. XR/XR chest 1V IMPRESSION: Left basilar chest tube has been removed. There is a new chest tube and left midlung. There is near complete resolution of left pneumothorax. Stable endotracheal tube and bilateral lung infiltrates.
--- NOTE | ~2023-04-08 | XR_ITS ---
EXAMINATION: XR CHEST CLINICAL INFORMATION: ET tube change. COMPARISON: Earlier on same day TECHNIQUE: AP portable view of the chest was obtained. FINDINGS: Endotracheal tube tip is approximately 3.5 cm above the cory. Right internal jugular central venous catheter seen with tip at the cavoatrial junction. Enteric catheter seen traversing to the stomach. Temperature probe in place within the upper thoracic esophagus. No pneumothorax is identified. Patient has appeared to develop some retrocardiac density with the left hemidiaphragm not being visualized consistent with atelectasis. There is also noted to be some residual right perihilar disease. Heart normal size. No evidence of pulmonary edema. XR/XR chest 1V IMPRESSION: Endotracheal tube approximately 3.5 cm above the cory. Interval development of retrocardiac density likely related to left lower lobe atelectasis. Persistent right perihilar disease. No pneumothorax appreciated.
--- NOTE | ~2023-04-08 | XR_ITS ---
EXAMINATION: XR CHEST CLINICAL INFORMATION: Chest 2 COMPARISON: CT 04/08/2023 and chest radiograph 04/08/2023 TECHNIQUE: Frontal view of the chest was obtained. FINDINGS: A chest tube is present at the left lung base. A pneumothorax still remains on the left. Depending upon location in the peripheral ventral plane, the chest tube may be in the pleural space but I cannot ascertain this from the given image. Increased opacity at the right lung base may represent pleural effusion. Diffuse right airspace disease is again seen. Left sided airspace disease appears somewhat improved in the collapsed lung. ET tube remains in good position about 3.7 cm above the cory. XR/XR chest 1V IMPRESSION: 1. Persistent left-sided pneumothorax with chest tube in place. It is difficult to tell if the chest tube is in the pleural space. Recommend seeing the chest tube is fluctuating with respirations. If this cannot be ascertained, a CT scan could always be performed to confirm placement. 2. Diffuse right-sided airspace disease with some improvement in the left-sided airspace disease.
--- NOTE | ~2023-04-08 | CT_ITS ---
Examination: CT chest, CT abdomen pelvis with IV contrast. Clinical history AMS found unconscious. COMPARISON: None. TECHNIQUE: 5 mm thin axial and reformatted 3 mm thin sagittal coronal reconstructed images of chest, abdomen pelvis were obtained following IV 85 mL Omnipaque 350. No oral contrast given. DLP [address] examination was performed using dose optimization technique as appropriate, variously including the following: Automated exposure control Adjustment of MA and/or KV according to patient size(this includes techniques or standardized protocols for targeted exams where dose is matched to indication/reason for exam; extremities or head. Use of iterative reconstruction techniques. FINDINGS: CHEST: LUNGS: There is diffuse bilateral dependent patchy infiltrates in upper and lower lobes. Mediastinum: There is endotracheal tube 2.4 cm above the cory. Trachea and bronchi are well-aerated and clear. The heart size is normal. No pericardial effusion seen. No mediastinal mass or emphysema. No coronary artery calcifications. No abnormal lymph nodes Pleura: There is a left apical pneumothorax approximately 15-20%. No mediastinal shift seen. There is no left pleural effusion. No right pleural abnormality seen. Axilla: Unremarkable. The chest wall is unremarkable Osseous structures: No visible fracture or bony abnormality. Abdomen and pelvis: Liver, ducts and gallbladder: The liver is homogeneous in density, normal size and contour. No focal lesion or intrahepatic ductal dilatation seen. The gallbladder is unremarkable. Pancreas: Unremarkable. Some spleen: Unremarkable. Adrenal glands: Unremarkable. Kidneys: Both kidneys are normal size, shape and position. No focal lesion or enhancing renal mass, cyst or radiopaque calculi. Lymphovascular structures: The abdominal aorta is normal caliber. No retroperitoneal lymph nodes nodes are mass or hematoma. Abdominal wall: Unremarkable. GI tract: There is scattered stool and gas seen throughout the colon without any significant distention. The small bowel loops are normal caliber. No free air or free fluid seen. Pelvis: There is a Steen's catheter in undistended bladder. There is no free fluid. No pelvic lymph nodes or mass seen. Osseous structures: No aggressive lytic or sclerotic process seen. CT/CT abdomen pelvis w IV con IMPRESSION: Extended dependent bilateral infiltrates question aspiration. Left pneumothorax approximately 15-20% without shift. There are no rib fractures seen. No acute process seen in the abdomen or pelvis. Endotracheal tube and a Steen's catheter are in satisfactory position.
--- NOTE | ~2023-04-08 | XR_ITS ---
EXAMINATION: XR CHEST CLINICAL INFORMATION: ETT placement COMPARISON: None available. TECHNIQUE: Frontal view of the chest was obtained. FINDINGS: There is a new ETT catheter with its tip 4.2 cm above the cory. The lungs are expanded with diffuse right lung and left mid and lower lung patchy opacity likely pulmonary edema or infiltrate. Heart size and progress clarities normal. No gross bony abnormality seen. XR/XR chest 1V IMPRESSION: 1. New ETT catheter in good position. 2. Diffuse right lung and left mid and lower lung patchy opacity likely pulmonary edema or infiltrate.
--- NOTE | ~2023-04-08 | XR_ITS ---
EXAMINATION: Right foot and ankle x-ray CLINICAL INFORMATION: Pain COMPARISON: None. TECHNIQUE: 3 views of the right foot and 3 views of the right ankle FINDINGS: Right foot: Bone alignment is normal. No fracture or dislocation. Normal joint spaces. Small calcaneal spur at the Achilles tendon insertion. Soft tissues are otherwise normal. Right ankle: Bone alignment is normal. No fracture or dislocation. Normal ankle mortise. Normal soft tissues. XR/XR foot RT 2V IMPRESSION: Unremarkable examination.
--- NOTE | ~2023-04-08 | MR_ITS ---
EXAMINATION: MRI BRAIN WITHOUT CONTRAST CLINICAL INFORMATION: Persistent encephalopathy. COMPARISON: CT head 04/08/2023. TECHNIQUE: Multiplanar MR imaging of the brain was performed without contrast. FINDINGS: There is symmetrically distributed ill-defined streaky diffusion involving the centrum semiovale of both cerebral hemispheres best visualized on axial image 24 of 33 series 5. No pathological magnetic susceptibility artifact. Intracranial vascular flow voids are maintained. There is no intracranial mass effect or midline shift. No abnormal extra-axial collection. Lateral and third ventricles are normal. No hydrocephalus. Midline structures including the cervicomedullary junction are normal. No acute bone marrow signal changes. There are small bilateral mastoid effusions. Mild paranasal sinus disease primarily affecting the ethmoid air cells and sphenoid sinus. Globes and orbits are grossly symmetric. MR/MR head/brain wo con IMPRESSION: There are symmetrically distributed ill-defined signal changes involving the centrum semiovale of both cerebral hemispheres. This pattern of disease can be seen in the setting of delayed reversible post hypoxic leukoencephalopathy. Other toxic or metabolic etiologies are not definitively excluded. No intracranial mass effect or hydrocephalus.
--- NOTE | ~2023-04-08 | XR_ITS ---
EXAMINATION: Right foot and ankle x-ray CLINICAL INFORMATION: Pain COMPARISON: None. TECHNIQUE: 3 views of the right foot and 3 views of the right ankle FINDINGS: Right foot: Bone alignment is normal. No fracture or dislocation. Normal joint spaces. Small calcaneal spur at the Achilles tendon insertion. Soft tissues are otherwise normal. Right ankle: Bone alignment is normal. No fracture or dislocation. Normal ankle mortise. Normal soft tissues. XR/XR ankle RT 2V IMPRESSION: Unremarkable examination.
--- NOTE | ~2023-04-08 | XR_ITS ---
EXAMINATION: XR CHEST CLINICAL INFORMATION: Hypoxia COMPARISON: April 14, 2023 TECHNIQUE: AP portable view of the chest was obtained. FINDINGS: Endotracheal tube tip approximately 3 cm above the cory. Enteric catheter seen traversing to the stomach with sidehole just distal to the gastroesophageal junction. Right internal jugular central venous catheter seen with its tip at the caval atrial junction. There has been of left-sided chest tube. No pneumothorax appreciated. There is some improving disease in the right hilar region. No new focus of parenchymal disease is appreciated. Heart normal size. No evidence of pulmonary edema. No significant pleural fluid accumulation noted. XR/XR chest 1V IMPRESSION: Status post left chest tube removal with no pneumothorax identified. Improving right lung disease.
--- NOTE | ~2023-04-08 | XR_ITS ---
EXAMINATION: XR CHEST CLINICAL INFORMATION: Hypoxia. COMPARISON: Chest 04/08/2023 TECHNIQUE: Frontal view of the chest was obtained. FINDINGS: Tip of endotracheal tube is 6.2 cm above the cory. Right jugular central line is in mid SVC. There is a left-sided chest tube in mid chest. There is patchy opacity seen in the right upper lobe, right lower lobe and left lower lobe retrocardiac area. The heart size and the great vessels are normal caliber. No gross bony abnormality seen. XR/XR chest 1V IMPRESSION: 1. Support lines and catheters are in satisfactory position. 2. Patchy opacity right upper lobe, right lower lobe and left lower lobe infiltrates are unchanged..
--- NOTE | ~2023-04-08 | XR_ITS ---
EXAMINATION: XR CHEST CLINICAL INFORMATION: Placement of central venous catheter. COMPARISON: Chest radiograph earlier today at 3:00 PM. TECHNIQUE: Frontal view of the chest was obtained. FINDINGS: Endotracheal tube terminates at 4.7 cm above the cory. Right IJ CVC catheter with the tip projecting over the cavoatrial junction. Stable appearance of the cardiomediastinal silhouette. Similar positioning of a left-sided chest tube. Multifocal airspace opacities, much greater on the right side, are not convincingly changed. No significant residual pneumothorax. No pleural effusion. No displaced rib fractures. XR/XR chest 1V IMPRESSION: 1. Endotracheal tube terminates at 4.7 cm above the cory. 2. Right IJ CVC catheter with the tip projecting over the cavoatrial junction. 3. No significant residual pneumothorax. 4. Stable right greater than left airspace opacities.
--- NOTE | ~2023-04-08 | XR_ITS ---
EXAMINATION: XR CHEST CLINICAL INFORMATION: Status post chest tube clamping COMPARISON: Chest 04/09/2023 TECHNIQUE: Frontal view of the chest was obtained. FINDINGS: Previously seen right upper lobe infiltrate has significantly improved. Minimal residual changes seen in the right lung base. Heart size and pulmonary vascularity is normal. Evaluation of left pleural space is limited with multiple lines and catheters and electrodes lying over the left lung apex. Grossly no pleural effusion seen. There is a new enteric tube with its tip below the diaphragm in stomach. Position of right jugular central catheter, endotracheal tube and left chest tube are stable. XR/XR chest 1V IMPRESSION: 1. Significant improvement in right upper lobe infiltrate with minimal residual changes seen in the right lung base. 2. New enteric tube tip is below the diaphragm in stomach. 3. No change in support lines and catheters.
--- NOTE | ~2023-04-08 | XR_ITS ---
EXAMINATION: XR CHEST CLINICAL INFORMATION: Chest tube placement COMPARISON: Chest 04/08/2023 at 1224. TECHNIQUE: Limited frontal view of the chest was obtained. FINDINGS: Again visualized is a left pneumothorax throughout the lateral chest. There is a pigtail catheter the left lung base not sure exactly the position of catheter. Heart size and pulmonary vascularity is normal. Endotracheal tube is 4.6 cm above the cory. Extensive bilateral airspace disease/edema is unchanged. XR/XR chest 1V IMPRESSION: Persistent left-sided pneumothorax with a chest tube along the left base. The exact tip of chest tube tip is not known since there is no reduction in the pneumothorax. A CT chest without contrast may be helpful. No change in bilateral interstitial infiltrates or edema.
--- NOTE | ~2023-04-08 | XR_ITS ---
EXAMINATION: XR CHEST CLINICAL INFORMATION: Chest tube COMPARISON: Previous chest x-ray most recent from yesterday TECHNIQUE: Frontal view of the chest was obtained. FINDINGS: Endotracheal tube tip 4.5 cm above the cory. Nasogastric tube projects over stomach, tip not definitely seen. Right jugular line tip projects over cavoatrial junction. Left chest tube projects over left midlung. No pneumothorax. Improving bilateral airspace disease. No pleural effusion. Bony structures are unremarkable. XR/XR chest 1V IMPRESSION: Nasogastric tube tip not definitely seen. Otherwise satisfactory position of support lines and tubes. No pneumothorax. Improving airspace disease.
--- NOTE | ~2023-04-08 | US_ITS ---
EXAMINATION: US VENOUS ULTRASOUND WITH DOPPLER LOWER EXTREMITY, RIGHT CLINICAL INFORMATION: Right lower leg pain and swelling. COMPARISON: None available. TECHNIQUE: Ultrasound of the deep veins is performed from the hip to the calf with compression sonography and color and pulse Doppler assessment. Spectral analysis with color-flow imaging is performed. FINDINGS: There is normal venous compression and respiratory variation and augmented flow. The visualized common femoral vein, superficial femoral vein, profunda femoral vein, popliteal vein, and the trifurcation region shows no evidence of deep venous thrombosis. There is no significant popliteal fossa cyst. If the patient's symptoms persist, followup ultrasound in 5 days 7 days might be of value to exclude proximal propagation from a non-visualized calf vein. US/US venous duplex LE RT IMPRESSION: No DVT demonstrated in the right lower extremity.
--- NOTE | ~2023-04-08 | XR_ITS ---
EXAMINATION: XR CHEST CLINICAL INFORMATION: Baseline. COMPARISON: 04/18/2023 chest radiograph. TECHNIQUE: Frontal view of the chest was obtained. FINDINGS: No significant abnormality is noted involving the heart, lungs, mediastinum, bony thorax or soft tissues. XR/XR chest 1V IMPRESSION: No acute cardiopulmonary process. No evidence for active tuberculosis.
--- NOTE | ~2023-04-08 | CT_ITS ---
CT brain and CT cervical spine without contrast. Clinical indications: Posturing, overdose concern for anoxic injury. COMPARISON: CT brain 03/19/2018. TECHNIQUE: 5 mm thin axial and reformatted 2 mm thin coronal and sagittal images of the brain were obtained. Subsequently axial 3 mm thin and reformatted 2 mm thin sagittal coronal images of cervical spine were obtained. DLP 1493. This CT examination was performed using dose optimization technique as appropriate, variously including the following: Automated exposure control Adjustment of MA and/or KV according to patient size(this includes techniques or standardized protocols for targeted exams where dose is matched to indication/reason for exam; extremities or head. Use of iterative reconstruction techniques. FINDINGS: There is no acute intra-axial, extra-axial bleed, masses, collection or midline shift. There is no acute infarction in evolution or edema. The lateral ventricles are smaller symmetrical without enlargement. The lomax to white matter difference is maintained normal. Bone windows reveal no calvarial abnormality. There is no scalp soft tissue abnormality. Bilateral paranasal sinuses are well-aerated. Cervical spine: There is mild straightening of cervical lordosis. The vertebral heights, alignment and disc heights are preserved. There is no visible acute fracture, dislocation or subluxation. The craniovertebral junction and the C1-C2 alignment is normal. The prevertebral and paravertebral soft tissues are normal. There is endotracheal catheter. There is a right apical parenchymal opacity likely infiltrates. There is a left apical pneumothorax. CT/CT cervical spine wo IV con IMPRESSION: No acute intracranial process seen. There is no acute fracture or dislocation cervical spine. There is mild straightening of cervical lordosis likely related to spasm or positional. There is endotracheal tube with its tip in the mid trachea. There is a right apical/upper lobe moderate parenchymal contusion/edema or infiltrate.
--- NOTE | 2023-04-08 08:26 | PC.NURSE ---
Addendum entered by Krysta Langely 04/08/23 09:54: Assisting RN Original Note: Pt arrived VIA EMS ventilated via BVM, unresponsive, pale and diaphoretic. Tachypneic, snoring respirations. Pt moved to room 5, Dr Shaikh to bedside and staff preparing for intubation. Narcan given without change. Pt sedated with Etomidate and Rocuronium for intubation. Intubation successful with 7.5 ETT, 25 ALICIA. Propofol started for sedation at 20mcg/kg/min.
[2023-04-08] MEDS: Rocuronium Bromide 50 MG/5 ML VIAL IVPUSH ×2 (08:32→09:32)
[2023-04-08] MEDS: Etomidate 20 MG/10 ML VIAL IVPUSH (08:32)
--- NOTE | 2023-04-08 08:33 | ECG_ITS ---
Test Reason : unresponsive Blood Pressure : / mmHG Vent. Rate : 119 BPM Atrial Rate : 119 BPM P-R Int : 122 ms QRS Dur : 098 ms QT Int : 296 ms P-R-T Axes : 067 081 047 degrees QTc Int : 416 ms Sinus tachycardia Right atrial enlargement Incomplete right bundle branch block Borderline ECG When compared with ECG of 26-JUN-2021 08:30, Vent. rate has increased BY 60 BPM T wave inversion no longer evident in Inferior leads Referred By: Angela Bird Electronically Signed By:DIANA ARGUETA
[2023-04-08] MEDS: propofoL 1,000 MG/100 ML VIAL 10.24 MG IVCONT ×2 (08:54→23:59)
[2023-04-08] MEDS: 0.9 % Sodium Chloride 1,000 ML 999 ML IVCONT (08:55)
[2023-04-08] MEDS: Naloxone HCl Nasal TAKE HOME 4 MG SPRAY NOSTRILALT (08:55)
[2023-04-08 08:59] LABS: Glucose, Whole Blood 94 mg/dL (60-115)
[2023-04-08 09:00] LABS: ABG Base Excess -5.2 mmol/L; ABG HCO3 23 mmol/L (22-26); ABG pCO2 55 mmHg (32-45); ABG pH 7.22 (7.35-7.45); ABG pO2 72 mmHg (83-108)
[2023-04-08 09:16] LABS: Hematocrit 46.8 % (42.0-52.0); Hemoglobin 15.7 g/dl (14.0-18.0); Mean Corpuscular HGB Conc 33.5 g/dl (31.0-36.0); Mean Corpuscular Hemoglobin 30.5 pg (27.0-33.0); Mean Corpuscular Volume 90.9 fL (80.0-98.0); Mean Platelet Volume 9.8 fL (9.4-12.4); Platelet Count 200 X10*3/uL (160-400); Red Blood Count 5.15 X10*6/uL (4.60-5.80); Red Cell Distribution Width 12.1 % (11.0-16.0); WBC ABN SCTR FOR CBC 1
--- NOTE | 2023-04-08 09:16 | ED_ITS ---
HPI - Altered Mental Status General Chief Complaint: Dyspnea Stated Complaint: substance OD per ems Time Seen by Provider: 04/08/23 08:37 Source: EMS Mode of arrival: EMS Limitations: altered mental status History of Present Illness HPI narrative: 28-year-old male history of schizophrenia, depression, PTSD, alcohol use disorder, marijuana use disorder who was brought to emergency department by ambulance for evaluation of altered mental status. Paramedics report that the patient was sleeping on his girlfriend katerine and that he usually snores and she did not think that there was anything wrong with him. When she woke up this morning and checked on him he was frothing at the mouth, his teeth were clenched, he was not responding. When paramedics arrived on the scene, they found him tachypneic with his jaw clenched, he was frothing at the mouth, he was not responding to verbal or painful stimuli, his pupils appear to be normal. He was given 2 doses of intranasal Narcan 4 mg each with no response. He was hypoxic with O2 saturations in the 80% range. The paramedics transported him and gave him oxygen through bag-valve mask assisted respirations. The patient was unresponsive, tachypneic, frothing at the mouth, and his teeth were clenched shot, he did have decerebrate posturing motions of his arms. The patient's girlfriend, Nicole came to the emergency department and I did obtain information from her. She can be reached at . She states the patient did drink at least 10 beers last night. He did make him ill last night and vomited multiple times and developed sweats. She states that he did smoke 1 marijuana blunt that he bought from a dispensary. However he did pick pack worker cigarette butts off the street and smoked them, this is something that he has done in the past as well. She is not aware of him doing in the illicit drugs such as opiates. She states that he did use heroin when he was in high school but went to rehab and has not used opiates as far she is aware. Related Data Home Medications Medication Instructions Recorded Confirmed ketoconazole 2 % topical cream 1 appl topical DAILY 04/08/23 04/08/23 olanzapine 10 mg tablet 10 mg PO BEDTIME 04/08/23 04/08/23 Allergies Allergy/AdvReac Type Severity Reaction Status Date / Time Penicillins [PCN] Allergy Unknown UNKNOWN Verified 12/12/21 23:33 Review of Systems Review of Systems: Yes Unobtainable due to mental condition PMFSH Past Medical History Medical History Chronic schizophrenia PTSD (post-traumatic stress disorder) Schizoaffective disorder Surgical History Hx of hand surgery Social History Social History Household Members: Unknown / Unable to assess Household Members Other:: [facility] Housing: Unknown / Unable to assess Housing Other:: [facility] Do you presently have visiting nurse or other home services: No Unable to assess alcohol history related to: Unable to respond and Unknown Alcohol intake: current Alcohol intake frequency: does not drink Patient Tobacco Use Status: Tobacco use Unknown Tobacco use type: Cigar Cigarette Packs Per Day: 0.5 Cigarettes Per Day: 5 Years Smoked: 10 Second Hand Smoke Exposure: Yes Use of substances other than those prescribed or required for medical reasons: Yes Substance Use Type: Marijuana Currently Displaying Signs/Symptoms of Drug Intoxication Withdrawal: No Advance Directives: No service: No Sexual orientation: Straight/Heterosexual Physical Exam ED Vital Signs: Vital Signs - 24 hr 04/08/23 08:34 04/08/23 09:04 04/08/23 09:10 Temperature 104.1 F H 103.3 F H Pulse Rate 140 H 104 H 115 H Respiratory Rate 40 H 33 H Blood Pressure 118/74 151/100 H 125/81 Pulse Oximetry 94 Oxygen Delivery Method Mechanical Ventilation Oxygen Flow Rate Fraction of Inspired Oxygen 04/08/23 09:15 04/08/23 10:24 04/08/23 10:14 Temperature 103.3 F H 101.5 F H Pulse Rate 113 H 95 Respiratory Rate 30 H 22 H Blood Pressure 125/81 116/71 Pulse Oximetry 94 94 Oxygen Delivery Method Mechanical Ventilation Oxygen Flow Rate 18 Fraction of Inspired Oxygen 100 BMI result Body Mass Index 27.0 Vital signs revealed that he was febrile with a temperature of a 104.1 degrees, tachycardic with a heart rate of 140, tachypneic with a respiratory rate of 40, blood pressure was normal. f General: Patient is not responding to verbal or painful stimuli, he is accumulating frothy sputum in his mouth, his teeth are clenched tight and I am unable to open his mouth HEENT: Head is normal cephalic and atraumatic, pupils are 5 mm, symmetric and minimally responsive, patient has foamy sputum coming out of his mouth and his teeth are clenched shot Neck: No adenopathy Lungs: Rhonchorous breath sounds diffusely, symmetric Heart: Tachycardia, normal S1-S2 Abdomen: Normal bowel sounds, no trauma Neuro: Patient is not responding to verbal or painful stimuli, he does have decerebrate posturing of his upper extremities Medications Administered Generic Name Dose Route Start Last Admin Trade Name Freq PRN Reason Stop Dose Admin Chlorhexidine Gluconate 15 ml 04/08/23 15:00 04/09/23 21:55 Chlorhexidine Gluc Oral Rinse 15 Ml Mouthwash BUCCAL 15 ml TID HERON Administration Famotidine 20 mg 04/09/23 09:00 04/09/23 07:15 Famotidine/Pf 20 Mg/2 Ml Vial IVPUSH 20 mg DAILY HERON Administration Heparin Sodium (Porcine) 5,000 unit 04/08/23 11:00 04/09/23 18:30 Heparin Sodium,Porcine 5,000 Unit/Ml Vial SUBCUT 5,000 unit Q8H HERON Administration Propofol 1,000 mg in 100 mls @ 0 mls/hr 04/08/23 08:45 04/09/23 21:58 Diprivan IVCONT 30 mcg/kg/min .Q0M HERON 15.35 mls/hr Titration Protocol Per Protocol Ampicillin Sodium/Sulbactam 100 mls @ 200 mls/hr 04/08/23 22:00 04/09/23 14 :43 Sodium 3 gm/ Sodium Chloride IV Infused Q8H HERON Infusion Lactated Ringer's 1,000 mls @ 250 mls/hr 04/08/23 15:15 04/09/23 21:00 Lr IVCONT 0 mls/hr .Q4H HERON Infusion Norepinephrine Bitartrate 8 mg in 250 mls @ 0 mls/hr 04/08/23 19:45 04/09/23 22:01 Levophed IV 0 mcg/kg/min .Q0M HERON 0 mls/hr Titration Protocol Per Protocol Fentanyl 1,000 mcg in 100 mls @ 0 mls/hr 04/09/23 21:45 04/09/23 22:00 Sublimaze/Ns IVCONT 100 mcg/hr .Q0M HERON 10 mls/hr Titration Protocol Per Protocol Discontinued Medications Generic Name Dose Route Start Last Admin Trade Name Jaydon PRN Reason Stop Dose Admin Acetaminophen 650 mg 04/08/23 09:10 04/08/23 09:19 Acetaminophen Supp 650 Mg Supp.Rect MT 04/08/23 09:11 650 mg ONCE ONE Administration Albuterol Sulfate 10 mg 04/09/23 21:46 04/09/23 21:55 Albuterol Sulfate (0.083%) 2.5 Mg/3 Ml Vial.Neb INHALE 04/09/23 21:47 10 mg ONCE ONE Administration Etomidate 20 mg 04/08/23 08:44 04/08/23 08:32 Etomidate 20 Mg/10 Ml Vial IVPUSH 04/08/23 08:45 20 mg ONCE ONE Administration Fentanyl 50 mcg 04/09/23 20:46 04/09/23 20:57 Fentanyl Citrate/Pf 100 Mcg/2 Ml Vial IVPUSH 04/09/23 20:47 50 mcg ONCE ONE Administration Protocol Sodium Chloride 1,000 mls @ 999 mls/hr 04/08/23 08:45 04/08/23 11:00 Ns IVCONT 04/08/23 09:45 Infused .Q1H1M HERON Infusion Cefepime HCl 2 gm/ Sodium 50 mls @ 100 mls/hr 04/08/23 08:44 04/08/23 10:33 Chloride IV 04/08/23 09:13 Infused ONCE ONE Infusion Cefepime HCl 2 gm/ Sodium 50 mls @ 100 mls/hr 04/08/23 09:32 04/08/23 10:45 Chloride IV 04/08/23 10:01 Not Given ONCE ONE Vancomycin HCl 2,000 mg in 500 mls @ 250 mls/hr 04/08/23 09:32 04/08/23 13:03 Vancomycin/Ns IV 04/08/23 11:31 Infused ONCE ONE Infusion Ampicillin Sodium/Sulbactam 100 mls @ 200 mls/hr 04/08/23 11:00 04/08/23 14:38 Sodium 3 gm/ Sodium Chloride IV Infused Q8H HERON Infusion Sodium Chloride 2,559 mls @ 2,559 mls/hr 04/08/23 11:18 04/08/23 14:07 Ns 30 ml/kg infuse over 1 hr (2559 ml) 04/08/23 12:17 Infused IV Infusion .Q1H STA Lactated Ringer's 1,000 mls @ 999 mls/hr 04/08/23 17:30 04/08/23 19:29 Lr IV 04/08/23 18:30 Infused .Q1H1M HERON Infusion Albumin Human 100 mls @ 133.333 mls/hr 04/09/23 00:30 04/09/23 02:50 Kedbumin 25 % IV 04/09/23 02:14 Infused Q1H HERON Infusion Potassium Phosphate 15 mmol in 250 mls @ 62.5 mls/hr 04/09/23 06:00 04/09/23 14:44 Kphos IV 04/09/23 13:59 Infused Q4H HERON Infusion Albumin Human 100 mls @ 100 mls/hr 04/09/23 08:00 04/09/23 09:52 Kedbumin 25 % IV 04/09/23 09:59 Infused Q1H HERON Infusion Magnesium Sulfate 2 gm in 50 mls @ 25 mls/hr 04/09/23 09:22 04/09/23 14:44 Magnesium Sulfate/H2o IV 04/09/23 11:21 Infused ONCE ONE Infusion Iohexol 100 ml 04/08/23 10:16 04/08/23 10:16 Iohexol 350 Mg/Ml 100 Ml Infus..Btl IV 04/08/23 10:17 85 ml ONCE ONE Administration Midazolam HCl 4 mg 04/08/23 10:59 04/08/23 11:04 Midazolam Hcl/Pf 2 Mg/2 Ml Vial IVPUSH 04/08/23 11:00 4 mg ONCE ONE Administration Naloxone HCl 4 mg 04/08/23 08:44 04/08/23 08:55 Naloxone Hcl Nasal Take Home 4 Mg [place] NOSTRILALT 04/08/23 08:45 4 mg ONCE ONE Administration Rocuronium [place] 50 mg 04/08/23 08:44 04/08/23 08:32 Rocuronium [place] 50 Mg/5 Ml Vial IVPUSH 04/08/23 08:45 50 mg ONCE ONE Administration Rocuronium [place] 50 mg 04/08/23 09:34 04/08/23 09:32 Rocuronium [place] 50 Mg/5 Ml Vial IVPUSH 04/08/23 09:35 50 mg ONCE ONE Administration Rocuronium [place] 30 mg 04/09/23 21:46 04/09/23 21:23 Rocuronium [place] 50 Mg/5 Ml Vial IVPUSH 04/09/23 21:47 30 mg ONCE ONE Administration Medical Decision Making Medical Decision Making [facility] Narrative: 28-year-old male who presents emergency for evaluation of altered mental status. Paramedics report that the patient was found unresponsive by his girlfriend, the patient was sleeping on the sofa and she does not know when he was last seen well. Patient was not responding to verbal or painful stimuli, his pupils were equal and reactive, his mouth was clenched not and had frothy saliva coming out of his mouth. Patient had decerebrate posturing of his upper extremities. The patient's O2 saturation on room air was in the 80% range. Patient was given etomidate 20 mg IV and rocuronium 50 mg IV. When a placed the glide scope in his mouth in visualize the posterior pharynx there was a large amount of thick white fluid in the back of his throat which was suctioned. I was able to easily visualize his cords and he was intubated with a 7.5 endotracheal tube. Patient had a positive color change on the end-tidal CO2 detector. Breath sounds were symmetric. The following studies were ordered: CBC, BMP, liver panel, alcohol level, m agnesium, PT/INR, PTT, acetaminophen level, salicylate level, urinalysis, CK, blood cultures x2, urinalysis, urine culture, ABG, venous blood gas, chest x-ray to check tube placement, CT scan of the head and cervical spine without contrast, CT scan of the chest, abdomen pelvis with IV contrast. My independent interpretation of the patient's chest x-ray is as follows: ET tube is above the cory, the patient has bilateral lower lobe infiltrates right greater than left consistent with aspiration pneumonia. Patient is penicillin allergic. I ordered cefepime 2 g IV and vancomycin 2 g IV. Patient was placed on the ventilator the following settings: AC 18, tidal volume 400, peep 7.5, 100%-the patient is over breathing the ventilator. 0940: I did discuss the patient's presentation with our longshore equipment operator, Dr. Mccullough who will accept the patient into the intensive care unit when a bed is available. 1109: My interpretation patient's laboratory evaluation is as follows: WBC low 4000. INR elevated 1.6. BUN creatinine elevated 31 and 2.33-elevated above baseline with a GFR of 49.6-lower than baseline. Lactic acid was elevated 2.4. AST and ALT were elevated 864 and 1144. These elevations are new. These are elevated above his baseline. CK elevated 6244. Urinalysis revealed 2+ protein, 3+ blood, trace leukocyte esterase. Microscopic revealed 3-5 RBCs 11-20 WBCs 6-10 squamous cells no bacteria. U tox was positive for opiates, fentanyl and marijuana. Salicylates and acetaminophen were below detectable limits. Alcohol level was below detectable limits. CT scan of the head without on contrast revealed no acute process. CT scan of the cervical spine revealed no acute fracture pain CT scan of the chest consistent with extended dependent bilateral infiltrates question aspiration and left pneumothorax. I did discuss the patient's presentation with the covering longshore equipment operator, Dr. Mccullough and the patient will go to the intensive care unit. 1311: I did place a Ez pigtail catheter in the patient's left chest. The catheter is lower than I expected, I did discuss this with the covering longshore equipment operator and he states that he will get a right cubital film in the intensive care unit to see if he can determine the position of the catheter Differential Diagnosis Differential Diagnoses: The differential diagnosis associated with the presentation includes Differential diagnosis includes was not limited to opiate overdose, intentional drug overdose (illicit drugs, acetaminophen, salicylates, other), seizure, aspiration, electrolyte abnormality, infectious process Admission/Observation Consideration of admission/observation: Escalation of care including admission/observation considered Lab Data MDM Lab Attestation statement: I reviewed the patient's lab results. 04/08/23 09:08 04/08/23 09:08 Labs: Lab Results 04/08/23 04/08/23 04/08/23 Range/Units 08:42 08:52 09:07 WBC (4.8-10.8) X10*3/uL RBC (4.60-5.80) X10*6/uL Hgb (14.0-18.0) g/dl Hct (42.0-52.0) % MCV (80.0-98.0) fL MCH (27.0-33.0) pg MCHC (31.0-36.0) g/dl RDW (11.0-16.0) % Plt Count (160-400) X10*3/uL MPV (9.4-12.4) fL Immature Gran % (Auto) Neut % (Auto) Lymph % (Auto) [place] % (Auto) Eos % (Auto) Baso % (Auto) Lymph # (Auto) [place] # (Auto) Eos # (Auto) Baso # (Auto) Abs Immat Gran (auto) Absolute Neuts (auto) Absolute Nucleated RBC (0.0-0.012) X10*3/uL Nucleated RBC % (auto) (0.0-0.2) /100WBC Neutrophils % (Manual) (45-73) % Band Neutrophils % (3-5) % Lymphocytes % (Manual) (20-40) % Monocytes % (Manual) (2-11) % Eosinophils % (Manual) (0-4) % Abs Neuts (Manual) (2.0-8.3) X10*3/uL Lymphocytes # (Manual) (1.2-4.9) X10*3/uL Monocytes # (Manual) (0.1-1.2) X10*3/uL Eosinophils # (Manual) (0.0-0.4) X10*3/uL Platelet Estimate (NORMAL) Plt Morphology Comment RBC Morphology PT (10.0-13.1) SEC INR (0.9-1.1) APTT (26.0-36.4) SEC O2 Saturation 89.0 % ABG pH at Pt Temp 7.22 L (7.35-7.45) ABG pCO2 at Pt Temp 55 H (32-45) mmHg ABG pO2 at Pt Temp 72 L (83-108) mmHg ABG HCO3 23 (22-26) mmol/L ABG Base Excess (Actual) -5.2 mmol/L VBG pH (7.32-7.43) VBG pCO2 mmHg VBG pO2 mmHg VBG HCO3 (22-26) mmol/L VBG O2 Saturation % VBG Base Excess mmol/L Sodium (135-145) mmol/L Potassium (3.3-5.1) mmol/L Chloride (96-108) mmol/L Carbon Dioxide (22-29) mmol/L Anion Gap (12-20) BUN (9-16) mg/dL Creatinine (0.5-1.4) mg/dL Estim Creat Clear Calc Estimated GFR POC Glucose 94 (60-115) mg/dL Random Glucose (60-115) mg/dL Lactic Acid 2.4 H* (0.5-2.0) mmol/L Calcium (8.4-10.2) mg/dL Magnesium (1.6-2.6) mg/dL Total Bilirubin (0.0-1.0) mg/dL Direct Bilirubin (0.0-0.5) mg/dL AST (5-37) U/L ALT (0-40) U/L Alkaline Phosphatase (39-117) U/L Total Creatine Kinase Total Protein (6.5-8.0) g/dL Albumin (3.5-5.0) g/dL Urine Color Urine Appearance Urine pH (5.0-9.0) Ur Specific [place] (1.005-1.025) Urine Protein (Neg-Trace) mg/dL Urine Glucose (UA) (Negative) mg/dL Urine Ketones (Negative) mg/dL Urine Blood (Negative) Urine Nitrite (Negative) Ur Leukocyte Esterase (Negative) Urine RBC (0-2) /HPF Urine WBC (0-5) /HPF Ur Squamous Epith Cells (0-2) /HPF Calcium Oxalate Crystal Urine Bacteria (None Seen) Hyaline Casts (0-2) /LPF Granular Casts Salicylates Urine Opiates Screen (Not Detect) Urine Fentanyl Screen (Not Detect) Acetaminophen Ur Barbiturates Screen (Not Detect) Ur Phencyclidine Scrn (Not Detect) Ur Amphetamines Screen (Not Detect) U Benzodiazepines Scrn (Not Detect) Urine Cocaine Screen (Not Detect) U Marijuana (THC) Screen (Not Detect) Ethyl Alcohol 04/08/23 04/08/23 04/08/23 Range/Units 09:07 09:08 09:08 WBC 4.0 L (4.8-10.8) X10*3/uL RBC 5.15 (4.60-5.80) X10*6/uL Hgb 15.7 (14.0-18.0) g/dl Hct 46.8 (42.0-52.0) % MCV 90.9 (80.0-98.0) fL MCH 30.5 (27.0-33.0) pg MCHC 33.5 (31.0-36.0) g/dl RDW 12.1 (11.0-16.0) % Plt Count 200 (160-400) X10*3/uL MPV 9.8 (9.4-12.4) fL Immature Gran % (Auto) Cancelled Neut % (Auto) Cancelled Lymph % (Auto) Cancelled [place] % (Auto) Cancelled Eos % (Auto) Cancelled Baso % (Auto) Cancelled Lymph # (Auto) Cancelled [place] # (Auto) Cancelled Eos # (Auto) Cancelled Baso # (Auto) Cancelled Abs Immat Gran (auto) Cancelled Absolute Neuts (auto) Cancelled Absolute Nucleated RBC 0.000 (0.0-0.012) X10*3/uL Nucleated RBC % (auto) 0.0 (0.0-0.2) /100WBC Neutrophils % (Manual) 65 (45-73) % Band Neutrophils % 5 (3-5) % Lymphocytes % (Manual) 24 (20-40) % Monocytes % (Manual) 4 (2-11) % Eosinophils % (Manual) 2 (0-4) % Abs Neuts (Manual) 2.8 (2.0-8.3) X10*3/uL Lymphocytes # (Manual) 1.0 L (1.2-4.9) X10*3/uL Monocytes # (Manual) 0.2 (0.1-1.2) X10*3/uL Eosinophils # (Manual) 0.1 (0.0-0.4) X10*3/uL Platelet Estimate NORMAL (NORMAL) Plt Morphology Comment NORMAL RBC Morphology NORMAL PT (10.0-13.1) SEC INR (0.9-1.1) APTT (26.0-36.4) SEC O2 Saturation % ABG pH at Pt Temp (7.35-7.45) ABG pCO2 at Pt Temp (32-45) mmHg ABG pO2 at Pt Temp (83-108) mmHg ABG HCO3 (22-26) mmol/L ABG Base Excess (Actual) mmol/L VBG pH (7.32-7.43) VBG pCO2 mmHg VBG pO2 mmHg VBG HCO3 (22-26) mmol/L VBG O2 Saturation % VBG Base Excess mmol/L Sodium 139 (135-145) mmol/L Potassium 4.9 (3.3-5.1) mmol/L Chloride 103 (96-108) mmol/L Carbon Dioxide 21 L (22-29) mmol/L Anion Gap 20 (12-20) BUN 31 H (9-16) mg/dL Creatinine 2.33 H (0.5-1.4) mg/dL Estim Creat Clear Calc 49.6 Estimated GFR 34 POC Glucose (60-115) mg/dL Random Glucose 94 (60-115) mg/dL Lactic Acid (0.5-2.0) mmol/L Calcium 8.4 D (8.4-10.2) mg/dL Magnesium 1.8 (1.6-2.6) mg/dL Total Bilirubin 1.0 (0.0-1.0) mg/dL Direct Bilirubin 0.3 (0.0-0.5) mg/dL AST 865 H (5-37) U/L ALT 1144 H (0-40) U/L Alkaline Phosphatase 81 (39-117) U/L Total Creatine Kinase Cancelled 6246 H Total Protein 6.6 (6.5-8.0) g/dL Albumin 4.4 (3.5-5.0) g/dL Urine Color Urine Appearance Urine pH (5.0-9.0) Ur Specific [place] (1.005-1.025) Urine Protein (Neg-Trace) mg/dL Urine Glucose (UA) (Negative) mg/dL Urine Ketones (Negative) mg/dL Urine Blood (Negative) Urine Nitrite (Negative) Ur Leukocyte Esterase (Negative) Urine RBC (0-2) /HPF Urine WBC (0-5) /HPF Ur Squamous Epith Cells (0-2) /HPF Calcium Oxalate Crystal Urine Bacteria (None Seen) Hyaline Casts (0-2) /LPF Granular Casts Salicylates Cancelled < 5.0 L Urine Opiates Screen (Not Detect) Urine Fentanyl Screen (Not Detect) Acetaminophen Cancelled < 17 Ur Barbiturates Screen (Not Detect) Ur Phencyclidine Scrn (Not Detect) Ur Amphetamines Screen (Not Detect) U Benzodiazepines Scrn (Not Detect) Urine Cocaine Screen (Not Detect) U Marijuana (THC) Screen (Not Detect) Ethyl Alcohol Cancelled < 10 04/08/23 04/08/23 04/08/23 Range/Units 09:08 09:08 09:08 WBC (4.8-10.8) X10*3/uL RBC (4.60-5.80) X10*6/uL Hgb (14.0-18.0) g/dl Hct (42.0-52.0) % MCV (80.0-98.0) fL MCH (27.0-33.0) pg MCHC (31.0-36.0) g/dl RDW (11.0-16.0) % Plt Count (160-400) X10*3/uL MPV (9.4-12.4) fL Immature Gran % (Auto) Neut % (Auto) Lymph % (Auto) [place] % (Auto) Eos % (Auto) Baso % (Auto) Lymph # (Auto) [place] # (Auto) Eos # (Auto) Baso # (Auto) Abs Immat Gran (auto) Absolute Neuts (auto) Absolute Nucleated RBC (0.0-0.012) X10*3/uL Nucleated RBC % (auto) (0.0-0.2) /100WBC Neutrophils % (Manual) (45-73) % Band Neutrophils % (3-5) % Lymphocytes % (Manual) (20-40) % Monocytes % (Manual) (2-11) % Eosinophils % (Manual) (0-4) % Abs Neuts (Manual) (2.0-8.3) X10*3/uL Lymphocytes # (Manual) (1.2-4.9) X10*3/uL Monocytes # (Manual) (0.1-1.2) X10*3/uL Eosinophils # (Manual) (0.0-0.4) X10*3/uL Platelet Estimate (NORMAL) Plt Morphology Comment RBC Morphology PT 18.1 H (10.0-13.1) SEC INR 1.6 H (0.9-1.1) APTT 30.6 (26.0-36.4) SEC O2 Saturation % ABG pH at Pt Temp (7.35-7.45) ABG pCO2 at Pt Temp (32-45) mmHg ABG pO2 at Pt Temp (83-108) mmHg ABG HCO3 (22-26) mmol/L ABG Base Excess (Actual) mmol/L VBG pH (7.32-7.43) VBG pCO2 mmHg VBG pO2 mmHg VBG HCO3 (22-26) mmol/L VBG O2 Saturation % VBG Base Excess mmol/L Sodium (135-145) mmol/L Potassium (3.3-5.1) mmol/L Chloride (96-108) mmol/L Carbon Dioxide (22-29) mmol/L Anion Gap (12-20) BUN (9-16) mg/dL Creatinine (0.5-1.4) mg/dL Estim Creat Clear Calc Estimated GFR POC Glucose (60-115) mg/dL Random Glucose (60-115) mg/dL Lactic Acid (0.5-2.0) mmol/L Calcium (8.4-10.2) mg/dL Magnesium (1.6-2.6) mg/dL Total Bilirubin (0.0-1.0) mg/dL Direct Bilirubin (0.0-0.5) mg/dL AST (5-37) U/L ALT (0-40) U/L Alkaline Phosphatase (39-117) U/L Total Creatine Kinase Total Protein (6.5-8.0) g/dL Albumin (3.5-5.0) g/dL Urine Color Dark Yellow Urine Appearance Cloudy Urine pH 5.0 (5.0-9.0) Ur Specific [place] 1.020 (1.005-1.025) Urine Protein 100 (2+) H (Neg-Trace) mg/dL Urine Glucose (UA) Negative (Negative) mg/dL Urine Ketones Trace (Negative) mg/dL Urine Blood Large (3+) H (Negative) Urine Nitrite Negative (Negative) Ur Leukocyte Esterase Trace H (Negative) Urine RBC 3-5 H (0-2) /HPF Urine WBC 11-20 H (0-5) /HPF Ur Squamous Epith Cells 6-10 (0-2) /HPF Calcium Oxalate Crystal Present Urine Bacteria None Seen (None Seen) Hyaline Casts >20 (0-2) /LPF Granular Casts Present Salicylates Urine Opiates Screen POSITIVE H (Not Detect) Urine Fentanyl Screen POSITIVE H (Not Detect) Acetaminophen Ur Barbiturates Screen Not Detected (Not Detect) Ur Phencyclidine Scrn Not Detected (Not Detect) Ur Amphetamines Screen Not Detected (Not Detect) U Benzodiazepines Scrn Not Detected (Not Detect) Urine Cocaine Screen Not Detected (Not Detect) U Marijuana (THC) Screen POSITIVE H (Not Detect) Ethyl Alcohol 04/08/23 Range/Units 09:12 WBC (4.8-10.8) X10*3/uL RBC (4.60-5.80) X10*6/uL Hgb (14.0-18.0) g/dl Hct (42.0-52.0) % MCV (80.0-98.0) fL MCH (27.0-33.0) pg MCHC (31.0-36.0) g/dl RDW (11.0-16.0) % Plt Count (160-400) X10*3/uL MPV (9.4-12.4) fL Immature Gran % (Auto) Neut % (Auto) Lymph % (Auto) [place] % (Auto) Eos % (Auto) Baso % (Auto) Lymph # (Auto) [place] # (Auto) Eos # (Auto) Baso # (Auto) Abs Immat Gran (auto) Absolute Neuts (auto) Absolute Nucleated RBC (0.0-0.012) X10*3/uL Nucleated RBC % (auto) (0.0-0.2) /100WBC Neutrophils % (Manual) (45-73) % Band Neutrophils % (3-5) % Lymphocytes % (Manual) (20-40) % Monocytes % (Manual) (2-11) % Eosinophils % (Manual) (0-4) % Abs Neuts (Manual) (2.0-8.3) X10*3/uL Lymphocytes # (Manual) (1.2-4.9) X10*3/uL Monocytes # (Manual) (0.1-1.2) X10*3/uL Eosinophils # (Manual) (0.0-0.4) X10*3/uL Platelet Estimate (NORMAL) Plt Morphology Comment RBC Morphology PT (10.0-13.1) SEC INR (0.9-1.1) APTT (26.0-36.4) SEC O2 Saturation % ABG pH at Pt Temp (7.35-7.45) ABG pCO2 at Pt Temp (32-45) mmHg ABG pO2 at Pt Temp (83-108) mmHg ABG HCO3 (22-26) mmol/L ABG Base Excess (Actual) mmol/L VBG pH 7.28 L (7.32-7.43) VBG pCO2 56 mmHg VBG pO2 63 mmHg VBG HCO3 27 H (22-26) mmol/L VBG O2 Saturation 89.0 % VBG Base Excess -0.7 mmol/L Sodium (135-145) mmol/L Potassium (3.3-5.1) mmol/L Chloride (96-108) mmol/L Carbon Dioxide (22-29) mmol/L Anion Gap (12-20) BUN (9-16) mg/dL Creatinine (0.5-1.4) mg/dL Estim Creat Clear Calc Estimated GFR POC Glucose (60-115) mg/dL Random Glucose (60-115) mg/dL Lactic Acid (0.5-2.0) mmol/L Calcium (8.4-10.2) mg/dL Magnesium (1.6-2.6) mg/dL Total Bilirubin (0.0-1.0) mg/dL Direct Bilirubin (0.0-0.5) mg/dL AST (5-37) U/L ALT (0-40) U/L Alkaline Phosphatase (39-117) U/L Total Creatine Kinase Total Protein (6.5-8.0) g/dL Albumin (3.5-5.0) g/dL Urine Color Urine Appearance Urine pH (5.0-9.0) Ur Specific [place] (1.005-1.025) Urine Protein (Neg-Trace) mg/dL Urine Glucose (UA) (Negative) mg/dL Urine Ketones (Negative) mg/dL Urine Blood (Negative) Urine Nitrite (Negative) Ur Leukocyte Esterase (Negative) Urine RBC (0-2) /HPF Urine WBC (0-5) /HPF Ur Squamous Epith Cells (0-2) /HPF Calcium Oxalate Crystal Urine Bacteria (None Seen) Hyaline Casts (0-2) /LPF Granular Casts Salicylates Urine Opiates Screen (Not Detect) Urine Fentanyl Screen (Not Detect) Acetaminophen Ur Barbiturates Screen (Not Detect) Ur Phencyclidine Scrn (Not Detect) Ur Amphetamines Screen (Not Detect) U Benzodiazepines Scrn (Not Detect) Urine Cocaine Screen (Not Detect) U Marijuana (THC) Screen (Not Detect) Ethyl Alcohol Independent Interpretation I performed an independent interpretation of an: EKG Interpretation: My interpretation of the patient's 12 EKG is as follows: Sinus tachycardia with a rate of 119, normal MT interval, QRS duration QTC interval, no ST segment elevation, no ST segment depression, no PACs, no PVCs, no significant T-wave abnormalities, are R prime complex V 1 consistent with an incomplete right bundle-branch block. Radiology Impression Discussion of test interpretation with radiology: I have reviewed the radiologist's reading. Radiologist Impression: CT head/brain wo IV con CT scan cervical spine without IV contrast IMPRESSION: No acute intracranial process seen. There is no acute fracture or dislocation cervical spine. There is mild straightening of cervical lordosis likely related to spasm or positional. There is endotracheal tube with its tip in the mid trachea. There is a right apical/upper lobe moderate parenchymal contusion/edema or infiltrate. Dictated By:Michael Mejia MD CT scan chest with IV contrast CT abdomen pelvis w IV con IMPRESSION: Extended dependent bilateral infiltrates question aspiration. Left pneumothorax approximately 15-20% without shift. There are no rib fractures seen. No acute process seen in the abdomen or pelvis. Endotracheal tube and a Steen's catheter are in satisfactory position. Dictated By:Michael Mejia MD XR chest 1V IMPRESSION: 1. New ETT catheter in good position. 2. Diffuse right lung and left mid and lower lung patchy opacity likely pulmonary edema or infiltrate. Dictated By:Michael Mejia MD Procedures Chest Tube Chest Tube 1: Chest Tube Location: left Size of Tube (cm): 14 Chest Tube Prep: Yes betadine prep and sterile drapes applied Local Anesthetic: lidocaine 1% Amount of anesthesia used (mL): 2 Incision Made With: other (Short finder needle on 10 cc syringe, skin incision #11 blade) Post Procedure: sutured to skin Tube Drainage: none Post Procedure CXR?: Yes Progress: The Ez pigtail catheter kit was used. Patient's skin was prepped with skin prep provided in the kit. The short 18 gauge finer needle was placed on a 10 cc syringe was used to locate the pleural space. A guidewire was threaded through the needle and the needle was withdrawn. I made a skin incision over the guidewire using #11 scalpel blade. The dilator was then inserted over the guidewire and then removed. The pigtail catheter with stylet was easily inser adan over the guidewire. The guidewire was removed. The stylet was removed. The catheter tube was then connected to any distension 2 which was then connected to the pleura vac. patient tolerated the procedure well pain. Close procedural x-rays were obtained, the tube appears low but I believe that is above the diaphragm. The patient will get a right decubital x-ray in the intensive care unit to further delineate tube placement. Intubation Time out performed: No sedative: Etomidate Mg Given: 20 paralytic: Rocuronium Mg Given: 50 Assist Device Used: fiber optic device ([place] scope blade #4) ET Tube Size: 7.5 ET Tube Uncuffed: Yes Tube Secured Depth (cm): 24 Tube Placement Confirmation: visualized tube passing through cords, equal breath sounds bilaterally and confirmation by capnometry Patient Tolerated Procedure: well Intubation Complications: none Additional Comments: The patient did have a significant amount of secretions in his posterior pharynx which were removed by suction. Critical Care Time Critical Care Time Critical Care Time: Yes Total Critical Care Time: 90 Attestation: Critical Care: The patient was critically ill with a high probability of imminent or life threatening deterioration. I spent greater than 30 minutes of discontinuous time evaluating the patient,delivering critical care at the bedside, discussing and evaluating pertinent data with consultants. Critical care time does not include time spent performing separately billable procedures or teaching. Total time spent performing critical care was 90 minutes. Discharge Plan Discharge Clinical Impression: Pneumonia, Opiate overdose, Pneumothorax Patient Disposition: Admitted As Inpatient Interventions: Admission Worksheet (ED) Last Done: 04/08/23 13:25 Discharge Date/Time: 04/08/23 13:29
[2023-04-08 09:17] LABS: Appearance Urine Cloudy; Color Urine Dark Yellow; Glucose Urine UA Negative (Negative); Leukocyte Esterase Urine Trace (Negative); Nitrite Urine Negative (Negative); UMIC TRIGGER UACC YES; Urine Blood Large (3+) (Negative); Urine Ketones Trace mg/dL (Negative); Urine Protein 100 (2+) mg/dL (Neg-Trace)
[2023-04-08 09:19] LABS: VBG Base Excess -0.7 mmol/L; VBG HCO3 27 mmol/L (22-26); VBG pCO2 56 mmHg; VBG pH 7.28 (7.32-7.43); VBG pO2 63 mmHg
[2023-04-08] MEDS: Acetaminophen Supp 650 MG SUPP.RECT PR (09:19)
[2023-04-08 09:21] LABS: Venous Blood Gas Refer to POC result
[2023-04-08 09:22] LABS: INTERNATIONAL NORM RATIO 1.6 (0.9-1.1); Prothrombin Time 18.1 SEC (10.0-13.1)
[2023-04-08 09:25] LABS: Partial Thromboplastin Time 30.6 SEC (26.0-36.4)
[2023-04-08 09:27] LABS: Amphetamine Screen Urine Not Detected (Not Detect); Bacteria Urine None Seen (None Seen); Barbiturates, Urine Not Detected (Not Detect); Benzodiazepines Screen Urine Not Detected (Not Detect); Calcium Oxalate Crystals Urine Present; Cannabinoid Screen Urine POSITIVE (Not Detect); Cocaine Screen Urine Not Detected (Not Detect); Fentanyl, urine POSITIVE (Not Detect); Granular Casts Urine Present; Hyaline Casts Urine >20 /LPF (0-2); Opiate Screen Urine POSITIVE (Not Detect); Phencyclidine Screen Urine Not Detected (Not Detect); UACC Culture Trigger YES
[2023-04-08 09:31] LABS: Lactic Acid 2.4 mmol/L (0.5-2.0)
[2023-04-08 09:34] LABS: Acetaminophen LAB < 17 mcg/mL (<30); Alanine Aminotransferase 1144 U/L (0-40); Albumin Level 4.4 g/dL (3.5-5.0); Alkaline Phosphatase 81 U/L (39-117); Anion Gap 20 (12-20); Aspartate Amino Transferase 865 U/L (5-37); Bilirubin Direct 0.3 mg/dL (0.0-0.5); Blood Urea Nitrogen 31 mg/dL (9-16); Calcium 8.4 mg/dL (8.4-10.2); Carbon Dioxide 21 mmol/L (22-29); Chloride 103 mmol/L (96-108); Creatinine Clr Calc Pharmacy 49.6; Estimated Glomerular Filt Rate 34; Ethanol < 10 mg/dL; Glucose Random 94 mg/dL (60-115); Magnesium 1.8 mg/dL (1.6-2.6); Potassium 4.9 mmol/L (3.3-5.1); Salicylate < 5.0 mg/dL (15-30); Sodium 139 mmol/L (135-145); Total Protein 6.6 g/dL (6.5-8.0)
[2023-04-08 09:41] LABS: Band Neutrophils Percent 5 % (3-5); Eosinophils Percent Manual 2 % (0-4); Lymphocytes Percent Manual 24 % (20-40); Monocytes Percent Manual 4 % (2-11); Neutrophils Percent Manual 65 % (45-73)
[2023-04-08 09:42] LABS: Platelet Estimate NORMAL (NORMAL); RBC Morphology NORMAL
[2023-04-08 09:53] LABS: Eosinophils Absolute Manual 0.1 X10*3/uL (0.0-0.4); Monocytes Absolute Manual 0.2 X10*3/uL (0.1-1.2); Neutrophils Absolute Manual 2.8 X10*3/uL (2.0-8.3)
[2023-04-08] MEDS: cefEPime HCl 2 GM in 0.9 % Sodium Chloride 50 ML IV (10:03)
[2023-04-08] MEDS: iohexoL 350 MG/ML 100 ML INFUS..BTL IV (10:16)
--- NOTE | 2023-04-08 10:17 | PC.NURSE ---
upon arrival to CT, pt became restless, biting tube, coughing up sputum. per dr. edmondson, pt given additional paralyzing agent and titrated up on sedative. pt became more comfortable and was able to tolerate CT scan well. pt currently resting quietly on stretcher back in room, in no apparent distress with girlfriend at bedside. cooling blanket applied. temperature coming down. awaiting admit orders. rr even/unlabored. vss. wctm
[2023-04-08 10:18] LABS: Platelet Morphology Comment NORMAL
--- NOTE | 2023-04-08 10:50 | PHA.MEDREC ---
Pharmacy Consult ? Medication Reconciliation Pharmacy has completed the medication reconciliation. Pt sedated, med rec done based on claim history
--- NOTE | 2023-04-08 10:51 | HE.PHANOTE ---
Patient has an unknown penicillin allergy. Patient was order Unasyn for aspiration pneumonia. Spoke with Dr. Mccullough, since this is ideal treatment for aspiration pneumonia and patient is currently intubated, will continue with unasyn. Informed RN that unasyn is okay to give and to monitor closely when first dose is given. Steff Pope, JesúsD
[2023-04-08] MEDS: vancomycin/NS 2,000 MG/500 ML PLAST..BAG 250 MG IV (10:54)
[2023-04-08] MEDS: Midazolam HCl/PF 2 MG/2 ML VIAL 4 MG IVPUSH (11:04)
[2023-04-08 11:13] LABS: Reflex Lactate? Lactic Acid Added
[2023-04-08 11:40] LABS: VBG Base Excess -6.4 mmol/L; VBG HCO3 21 mmol/L (22-26); VBG pCO2 47 mmHg; VBG pH 7.24 (7.32-7.43); VBG pO2 53 mmHg
[2023-04-08 11:49] LABS: ~Lactic Acid-LAB USE ONLY 4.2 mmol/L (0.5-2.0)
[2023-04-08] MEDS: propofoL 1,000 MG/100 ML VIAL 25.59 MG IVCONT ×2 (12:13→15:50)
[2023-04-08] MEDS: SODIUM CHLORIDE 2559 ML IV (12:43)
--- NOTE | 2023-04-08 13:00 | PC.NURSE ---
pt resting quietly sedated on stretcher in no apparent distress. medicated per jan. chest tube inserted, x-ray obtained. nurse to nurse report given to GENI Arango. pt to be transferred to ICU [facility].
[2023-04-08 13:32] LABS: Reflex Lactate? 2 Y
[2023-04-08] MEDS: Ampicillin Sodium/Sulbactam Na 3 GM in 0.9 % Sodium Chloride 100 ML IV ×2 (13:50→20:48)
[2023-04-08] MEDS: Chlorhexidine Gluc Oral Rinse 15 ML MOUTHWASH BUCCAL ×2 (13:55→20:40)
[2023-04-08] MEDS: Heparin Sodium,Porcine 5,000 UNIT/ML VIAL 5000 UNIT SUBCUT ×2 (13:55→18:37)
[2023-04-08 14:19] LABS: Venous Blood Gas Refer to POC result
--- NOTE | 2023-04-08 15:09 | P.PCNCC_ITS ---
Procedures Date of Service Date of Service: 04/08/23 Chest Tube Chest Tube 1: Chest tube location: Mid-Clavicular Chest Size of tube: 14 Progress: 14 Persian pigtail chest tube emergently placed at left midclavicular line at the 3rd intercostal space with ultrasound visualization for persistent pneumothorax and worsening hypoxemia while on ventilatory support. Air bubbles aspirated on initial chest tube placement. Patient tolerated procedure well. Chest tube position verified with chest x-ray.
--- NOTE | 2023-04-08 15:14 | P.HPCC_ITS ---
History of Present Illness Date of Service: 04/08/23 Chief Complaint: Alteration of mental status, acute respiratory failure 28-year-old gentleman with underlying history of schizophrenia alcohol use, marijuana use admitted on 04/08/2023 after he was noted to be unresponsive by his girlfriend for unclear amount of time with full min at the mouse. Patient was transported by EMS to emergency room where he was intubated for hypoxia and respiratory distress. On further evaluation patient with imaging finding of aspiration and left pneumothorax. Initial left mid axillary chest tube placed in emergency room with persistence of pneumothorax and questionable subdiaphragmatic placement. Chest tube removed and replaced with left midclavicular in 3rd intercostal space with air evacuation and improvement in p neumothorax. Patient also noted to have acute kidney injury and rhabdomyolysis and started on IV fluid hydration. Review of Systems Review of Systems: No unobtainable due to endotracheal tube or Unobtainable due to mental condition PMFSH Past Medical History Medical History Chronic schizophrenia PTSD (post-traumatic stress disorder) Schizoaffective disorder Surgical History Surgical History Hx of hand surgery Social History Social History Household Members: Unknown / Unable to assess Household Members Other:: [facility] Housing: Unknown / Unable to assess Housing Other:: [facility] Do you presently have visiting nurse or other home services: No Unable to assess alcohol history related to: Unable to respond and Unknown Alcohol intake: current Alcohol intake frequency: does not drink Patient Tobacco Use Status: Tobacco use Unknown Tobacco use type: Cigar Cigarette Packs Per Day: 0.5 Cigarettes Per Day: 5 Years Smoked: 10 Second Hand Smoke Exposure: Yes Use of substances other than those prescribed or required for medical reasons: Yes Substance Use Type: Marijuana Advance Directives: No service: No Sexual orientation: Straight/Heterosexual Meds Allergies Allergy/AdvReac Type Severity Reaction Status Date / Time Penicillins [PCN] Allergy Unknown UNKNOWN Verified 12/12/21 23:33 Active Medications: Current Medications Chlorhexidine Gluconate (Chlorhexidine Gluc Oral Rinse 15 Ml Mouthwash) 15 ml BUCCAL TID HERON Last Admin: 04/08/23 13:55 Dose: 15 ml Famotidine (Famotidine/Pf 20 Mg/2 Ml Vial) 20 mg IVPUSH DAILY [facility] Heparin Sodium (Porcine) (Heparin Sodium,Porcine 5,000 Unit/Ml Vial) 5,000 unit SUBCUT Q8H [facility] Last Admin: 04/08/23 13:55 Dose: 5,000 unit Propofol (Diprivan) 1,000 mg in 100 mls @ 0 mls/hr IVCONT .Q0M [facility]; Protocol Last Admin: 04/08/23 12:13 Dose: 50 mcg/kg/min, 25.59 mls/hr Ampicillin Sodium/Sulbactam (Sodium 3 gm/ Sodium Chloride) 100 mls @ 200 mls/hr IV Q8H [facility] Lactated Ringer's (Lr) 1,000 mls @ 250 mls/hr IVCONT .Q4H [facility] Home Medications Medication Instructions Recorded Confirmed Last Taken Type ketoconazole 2 % topical cream 1 appl topical DAILY 04/08/23 04/08/23 Unknown History olanzapine 10 mg tablet 10 mg PO BEDTIME 04/08/23 04/08/23 Unknown History Physical Exam Vital Signs: Vital Signs: Last Vital Signs Temp 98.2 F 04/08/23 15:00 Pulse 78 04/08/23 15:00 Resp 22 H 04/08/23 15:00 BP 104/58 L 04/08/23 15:00 Pulse Ox 96 04/08/23 15:00 O2 Del Method Mechanical Ventil ation 04/08/23 15:00 O2 Flow Rate 18 04/08/23 09:15 FiO2 50 04/08/23 15:00 BMI result Body Mass Index 27.0 Const: General: no acute distress and other ( Sedated on the vent) Eyes: Sclerae: sclerae normal EOM: EOMs intact bilaterally Neck: Neck: Yes no lymphadenopathy, Yes trachea midline and Yes supple Resp: Effort & Inspection: normal respiratory effort and no respiratory distress Auscultation: clear to auscultation bilaterally Cardio: Rate: regular rate Rhythm: regular rhythm Heart sounds: no gallops, no murmurs and no rubs GI: Palpation (GI): Soft to palpation and Other GI palpation findings present ( Nontender) Auscultation: normal bowel sounds Extrem: Other: right buttock with semi firm clearly marginated area suspicious for pressure injury present on admission General: Yes no pedal edema, No clubbing, No cyanosis and Yes other Results Labs 04/08/23 09:08 04/08/23 09:08 Labs: Laboratory Results - last 24 hr 04/08/23 04/08/23 04/08/23 08:42 08:52 09:07 MCV MCH MCHC RDW Plt Count MPV Immature Gran % (Auto) Neut % (Auto) Lymph % (Auto) [place] % (Auto) Eos % (Auto) Baso % (Auto) Lymph # (Auto) [place] # (Auto) Eos # (Auto) Baso # (Auto) Abs Immat Gran (auto) Absolute Neuts (auto) Absolute Nucleated RBC Nucleated RBC % (auto) Neutrophils % (Manual) Band Neutrophils % Lymphocytes % (Manual) Monocytes % (Manual) Eosinophils % (Manual) Abs Neuts (Manual) Lymphocytes # (Manual) Monocytes # (Manual) Eosinophils # (Manual) Platelet Estimate Plt Morphology Comment RBC Morphology PT INR APTT O2 Saturation 89.0 ABG pH at Pt Temp 7.22 L ABG pCO2 at Pt Temp 55 H ABG pO2 at Pt Temp 72 L ABG HCO3 23 ABG Base Excess (Actual) -5.2 VBG pH VBG pCO2 VBG pO2 VBG HCO3 VBG O2 Saturation VBG Base Excess Anion Gap Estim Creat Clear Calc Estimated GFR POC Glucose 94 Random Glucose Lactic Acid 2.4 H* Lactic Acid F/U @ 2Hr Calcium Magnesium Total Bilirubin Direct Bilirubin AST ALT Alkaline Phosphatase Total Creatine Kinase Total Protein Albumin Urine Color Urine Appearance Urine pH Ur Specific [place] Urine Protein Urine Glucose (UA) Urine Ketones Urine Blood Urine Nitrite Ur Leukocyte Esterase Urine RBC Urine WBC Ur Squamous Epith Cells Calcium Oxalate Crystal Urine Bacteria Hyaline Casts Granular Casts Salicylates Urine Opiates Screen Urine Fentanyl Screen Acetaminophen Ur Barbiturates Screen Ur Phencyclidine Scrn Ur Amphetamines Screen U Benzodiazepines Scrn Urine Cocaine Screen U Marijuana (THC) Screen Ethyl Alcohol 04/08/23 04/08/23 04/08/23 09:07 09:08 09:08 MCV 90.9 MCH 30.5 MCHC 33.5 RDW 12.1 Plt Count 200 MPV 9.8 Immature Gran % (Auto) Cancelled Neut % (Auto) Cancelled Lymph % (Auto) Cancelled [place] % (Auto) Cancelled Eos % (Auto) Cancelled Baso % (Auto) Cancelled Lymph # (Auto) Cancelled [place] # (Auto) Cancelled Eos # (Auto) Cancelled Baso # (Auto) Cancelled Abs Immat Gran (auto) Cancelled Absolute Neuts (auto) Cancelled Absolute Nucleated RBC 0.000 Nucleated RBC % (auto) 0.0 Neutrophils % (Manual) 65 Band Neutrophils % 5 Lymphocytes % (Manual) 24 Monocytes % (Manual) 4 Eosinophils % (Manual) 2 Abs Neuts (Manual) 2.8 Lymphocytes # (Manual) 1.0 L Monocytes # (Manual) 0.2 Eosinophils # (Manual) 0.1 Platelet Estimate NORMAL Plt Morphology Comment NORMAL RBC Morphology NORMAL PT INR APTT O2 Saturation ABG pH at Pt Temp ABG pCO2 at Pt Temp ABG pO2 at Pt Temp ABG HCO3 ABG Base Excess (Actual) VBG pH VBG pCO2 VBG pO2 VBG HCO3 VBG O2 Saturation VBG Base Excess Anion Gap 20 Estim Creat Clear Calc 49.6 Estimated GFR 34 POC Glucose Random Glucose 94 Lactic Acid Lactic Acid F/U @ 2Hr Calcium 8.4 D Magnesium 1.8 Total Bilirubin 1.0 Direct Bilirubin 0.3 AST 865 H ALT 1144 H Alkaline Phosphatase 81 Total Creatine Kinase Cancelled 6246 H Total Protein 6.6 Albumin 4.4 Urine Color Urine Appearance Urine pH Ur Specific [place] Urine Protein Urine Glucose (UA) Urine Ketones Urine Blood Urine Nitrite Ur Leukocyte Esterase Urine RBC Urine WBC Ur Squamous Epith Cells Calcium Oxalate Crystal Urine Bacteria Hyaline Casts Granular Casts Salicylates Cancelled < 5.0 L Urine Opiates Screen Urine Fentanyl Screen Acetaminophen Cancelled < 17 Ur Barbiturates Screen Ur Phencyclidine Scrn Ur Amphetamines Screen U Benzodiazepines Scrn Urine Cocaine Screen U Marijuana (THC) Screen Ethyl Alcohol Cancelled < 10 04/08/23 04/08/23 04/08/23 09:08 09:08 09:08 MCV MCH MCHC RDW Plt Count MPV Immature Gran % (Auto) Neut % (Auto) Lymph % (Auto) [place] % (Auto) Eos % (Auto) Baso % (Auto) Lymph # (Auto) [place] # (Auto) Eos # (Auto) Baso # (Auto) Abs Immat Gran (auto) Absolute Neuts (auto) Absolute Nucleated RBC Nucleated RBC % (auto) Neutrophils % (Manual) Band Neutrophils % Lymphocytes % (Manual) Monocytes % (Manual) Eosinophils % (Manual) Abs Neuts (Manual) Lymphocytes # (Manual) Monocytes # (Manual) Eosinophils # (Manual) Platelet Estimate Plt Morphology Comment RBC Morphology PT 18.1 H INR 1.6 H APTT 30.6 O2 Saturation ABG pH at Pt Temp ABG pCO2 at Pt Temp ABG pO2 at Pt Temp ABG HCO3 ABG Base Excess (Actual) VBG pH VBG pCO2 VBG pO2 VBG HCO3 VBG O2 Saturation VBG Base Excess Anion Gap Estim Creat Clear Calc Estimated GFR POC Glucose Random Glucose Lactic Acid Lactic Acid F/U @ 2Hr Calcium Magnesium Total Bilirubin Direct Bilirubin AST ALT Alkaline Phosphatase Total Creatine Kinase Total Protein Albumin Urine Color Dark Yellow Urine Appearance Cloudy Urine pH 5.0 Ur Specific [place] 1.020 Urine Protein 100 (2+) H Urine Glucose (UA) Negative Urine Ketones Trace Urine Blood Large (3+) H Urine Nitrite Negative Ur Leukocyte Esterase Trace H Urine RBC 3-5 H Urine WBC 11-20 H Ur Squamous Epith Cells 6-10 Calcium Oxalate Crystal Present Urine Bacteria None Seen Hyaline Casts >20 Granular Casts Present Salicylates Urine Opiates Screen POSITIVE H Urine Fentanyl Screen POSITIVE H Acetaminophen Ur Barbiturates Screen Not Detected Ur Phencyclidine Scrn Not Detected Ur Amphetamines Screen Not Detected U Benzodiazepines Scrn Not Detected Urine Cocaine Screen Not Detected U Marijuana (THC) Screen POSITIVE H Ethyl Alcohol 04/08/23 04/08/23 04/08/23 09:12 11:26 11:31 MCV MCH MCHC RDW Plt Count MPV Immature Gran % (Auto) Neut % (Auto) Lymph % (Auto) [place] % (Auto) Eos % (Auto) Baso % (Auto) Lymph # (Auto) [place] # (Auto) Eos # (Auto) Baso # (Auto) Abs Immat Gran (auto) Absolute Neuts (auto) Absolute Nucleated RBC Nucleated RBC % (auto) Neutrophils % (Manual) Band Neutrophils % Lymphocytes % (Manual) Monocytes % (Manual) Eosinophils % (Manual) Abs Neuts (Manual) Lymphocytes # (Manual) Monocytes # (Manual) Eosinophils # (Manual) Platelet Estimate Plt Morphology Comment RBC Morphology PT INR APTT O2 Saturation ABG pH at Pt Temp ABG pCO2 at Pt Temp ABG pO2 at Pt Temp ABG HCO3 ABG Base Excess (Actual) VBG pH 7.28 L 7.24 L VBG pCO2 56 47 VBG pO2 63 53 VBG HCO3 27 H 21 L VBG O2 Saturation 89.0 74.0 VBG Base Excess -0.7 -6.4 Anion Gap Estim Creat Clear Calc Estimated GFR POC Glucose Random Glucose Lactic Acid Lactic Acid F/U @ 2Hr 4.2 H* Calcium Magnesium Total Bilirubin Direct Bilirubin AST ALT Alkaline Phosphatase Total Creatine Kinase Total Protein Albumin Urine Color Urine Appearance Urine pH Ur Specific [place] Urine Protein Urine Glucose (UA) Urine Ketones Urine Blood Urine Nitrite Ur Leukocyte Esterase Urine RBC Urine WBC Ur Squamous Epith Cells Calcium Oxalate Crystal Urine Bacteria Hyaline Casts Granular Casts Salicylates Urine Opiates Screen Urine Fentanyl Screen Acetaminophen Ur Barbiturates Screen Ur Phencyclidine Scrn Ur Amphetamines Screen U Benzodiazepines Scrn Urine Cocaine Screen U Marijuana (THC) Screen Ethyl Alcohol Imaging Radiologist's Impressions: Impressions Chest X-Ray 04/08/23 08:41 IMPRESSION: 1. New ETT catheter in good position. 2. Diffuse right lung and left mid and lower lung patchy opacity likely pulmonary edema or infiltrate. Head CT 04/08/23 09:53 IMPRESSION: No acute intracranial process seen. There is no acute fracture or dislocation cervical spine. There is mild straightening of cervical lordosis likely related to spasm or positional. There is endotracheal tube with its tip in the mid trachea. There is a right apical/upper lobe moderate parenchymal contusion/edema or infiltrate. Abdomen/Pelvis CT 04/08/23 10:08 IMPRESSION: Extended dependent bilateral infiltrates question aspiration. Left pneumothorax approximately 15-20% without shift. There are no rib fractures seen. No acute process seen in the abdomen or pelvis. Endotracheal tube and a Steen's catheter are in satisfactory position. Cervical Spine CT 04/08/23 10:08 IMPRESSION: No acute intracranial process seen. There is no acute fracture or dislocation cervical spine. There is mild straightening of cervical lordosis likely related to spasm or positional. There is endotracheal tube with its tip in the mid trachea. There is a right apical/upper lobe moderate parenchymal contusion/edema or infiltrate. Chest CT 04/08/23 10:08 IMPRESSION: Extended dependent bilateral infiltrates question aspiration. Left pneumothorax approximately 15-20% without shift. There are no rib fractures seen. No acute process seen in the abdomen or pelvis. Endotracheal tube and a Steen's catheter are in satisfactory position. Chest X-Ray 04/08/23 12:34 IMPRESSION: 1. Persistent left-sided pneumothorax with chest tube in place. It is difficult to tell if the chest tube is in the pleural space. Recommend seeing the chest tube is fluctuating with respirations. If this cannot be ascertained, a CT scan could always be performed to confirm placement. 2. Diffuse right-sided airspace disease with some improvement in the left-sided airspace disease. Assessment and Plan (1) Acute respiratory failure: Status: Acute (2) Acute renal injury: Status: Acute (3) Aspiration pneumonitis: Status: Acute (4) Pneumothorax, left: Status: Acute (5) Rhabdomyolysis: Status: Acute (6) Schizophrenia: Qualifiers: Schizophrenia type: unspecified Qualified Code(s): F20.9 - Schizophrenia, unspecified Status: Acute Plan Assessment: 28-year-old gentleman admitted with respiratory failure and alteration of mental status likely secondary to aspiration pneumonitis, further complicated by acute renal failure with rhabdomyolysis, and left-sided pneumothorax Plan: Neuro: No acute issues. Cardiac: No acute issues. Pulmonary: acute respiratory, likely secondary to aspiration pneumonitis on the background of binge alcohol consumption. Now requiring ventilatory support, continue to titrate off as tolerated. Left-sided pneumothorax status post chest tube placement with improvement. Renal: Acute renal failure with rhabdomyolysis. Non oliguric. Continue IV fluid support. Continue to monitor CPK, renal indices, and urine output. Endo: No acute issues. GI: No acute issues. ID: empirically covered with Unasyn for possible aspiration pneumonitis. Heme/Onc: No acute issues. Psych: No acute issues. Miscellaneous: Possible localized compartment syndrome of the right buttock, continue to monitor clinically at this time Prophylaxis: heparin, famotidine Diet: nothing by mouth Critical care time spent: 90 minutes excluding separately billable procedures Time Spent With Patient Time: Total time managing care of this patient today ____ minutes.
[2023-04-08 15:40] LABS: Alanine Aminotransferase 1310 U/L (0-40); Albumin Level 3.2 g/dL (3.5-5.0); Alkaline Phosphatase 61 U/L (39-117); Anion Gap 13 (12-20); Aspartate Amino Transferase 1262 U/L (5-37); Bilirubin Total 0.6 mg/dL (0.0-1.0); Blood Urea Nitrogen 32 mg/dL (9-16); Calcium 7.6 mg/dL (8.4-10.2); Carbon Dioxide 21 mmol/L (22-29); Chloride 110 mmol/L (96-108); Creatinine Clr Calc Pharmacy 68.3; Estimated Glomerular Filt Rate 49; Glucose Random 97 mg/dL (60-115); Potassium 4.6 mmol/L (3.3-5.1); Sodium 139 mmol/L (135-145); Total Protein 4.9 g/dL (6.5-8.0)
[2023-04-08 15:42] LABS: ~Lactic Acid-LAB USE ONLY 2.8 mmol/L (0.5-2.0)
[2023-04-08] MEDS: Lactated Ringers 1,000 ML 250 ML IVCONT ×2 (15:46→20:48)
--- NOTE | 2023-04-08 16:37 | P.CONGS_ITS ---
History of Present Illness Consult details Consult date: 04/08/23 Requesting physician: Chaim Mccullough Narrative: 28-year-old male patient found unresponsive after drinking approximately 10 beers and possibly taking fentanyl. Patient found on couch by his girlfriend clenching his jaw and unresponsive. Patient was subsequently brought to ED by benchroom shop optician. Patient has subsequently been intubated . Workup revealed an area of redness in the right gluteal region. Patient found to have markedly elevated CPK levels which have increased during the patient's time in the hospital. Findings are concerning for right gluteal compartment syndrome. Surgical consultation was requested for possible fasciotomy. Review of Systems Review of Systems: Yes unobtainable due to endotracheal tube PMFSH Past Medical History Medical History Chronic schizophrenia PTSD (post-traumatic stress disorder) Schizoaffective disorder Surgical History Surgical History Hx of hand surgery Social History Social History Household Members: Unknown / Unable to assess Household Members Other:: custodial Housing: Unknown / Unable to assess Housing Other:: custodial Do you presently have visiting nurse or other home services: No Unable to assess alcohol history related to: Unable to respond and Unknown Alcohol intake: current Alcohol intake frequency: does not drink Patient Tobacco Use Status: Tobacco use Unknown Tobacco use type: Cigar Cigarette Packs Per Day: 0.5 Cigarettes Per Day: 5 Years Smoked: 10 Second Hand Smoke Exposure: Yes Use of substances other than those prescribed or required for medical reasons: Yes Substance Use Type: Marijuana Advance Directives: No service: No Sexual orientation: Straight/Heterosexual Meds Allergies Allergy/AdvReac Type Severity Reaction Status Date / Time Penicillins [PCN] Allergy Unknown UNKNOWN Verified 12/12/21 23:33 Active Medications: Current Medications Chlorhexidine Gluconate (Chlorhexidine Gluc Oral Rinse 15 Ml Mouthwash) 15 ml BUCCAL TID [facility] Last Admin: 04/08/23 13:55 Dose: 15 ml Famotidine (Famotidine/Pf 20 Mg/2 Ml Vial) 20 mg IVPUSH DAILY [facility] Heparin Sodium (Porcine) (Heparin Sodium,Porcine 5,000 Unit/Ml Vial) 5,000 unit SUBCUT Q8H [facility] Last Admin: 04/08/23 13:55 Dose: 5,000 unit Propofol (Diprivan) 1,000 mg in 100 mls @ 0 mls/hr IVCONT .Q0M [facility]; Protocol Last Admin: 04/08/23 15:50 Dose: 50 mcg/kg/min, 25.59 mls/hr Ampicillin Sodium/Sulbactam (Sodium 3 gm/ Sodium Chloride) 100 mls @ 200 mls/hr IV Q8H [facility] Lactated Ringer's (Lr) 1,000 mls @ 250 mls/hr IVCONT .Q4H [facility] Last Admin: 04/08/23 15:46 Dose: 250 mls/hr Home Medications Medication Instructions Recorded Confirmed Last Taken Type ketoconazole 2 % topical cream 1 appl topical DAILY 04/08/23 04/08/23 Unknown History olanzapine 10 mg tablet 10 mg PO BEDTIME 04/08/23 04/08/23 Unknown History Physical Exam Vital Signs: Vital Signs: Last Vital Signs Temp 98.6 F 04/08/23 15:59 Pulse 80 04/08/23 15:59 Resp 22 H 04/08/23 15:59 BP 104/58 L 04/08/23 15:59 Pulse Ox 97 04/08/23 15:59 O2 Del Method Mechanical Ventil ation 04/08/23 15:59 O2 Flow Rate 18 04/08/23 09:15 FiO2 50 04/08/23 15:59 BMI result Body Mass Index 27.0 Const: Other: Unresponsive, intubated, sedated HEENT: Head: Yes normocephalic and Yes atraumatic Resp: Other: breathing controlled by the vent GI: Other: soft and nondistended, Skin: Other: warm and dry, Full body images: 1. Area of redness and induration. Extrem: Other: multiple abrasions noted in the right leg. Possible injection site in the right foot. Right buttock with an area of induration involving approximately 3/4 of the buttock. Underlying gluteal muscle appears tense to palpation. No skin necrosis. Two punctate areas suggestive of possible injection site within the area of redness. No skin necrosis is identified. Results Labs 04/08/23 09:08 04/08/23 14:51 Labs: Abnormal lab results 04/08/23 04/08/2323 Range/Units 08:52 09:07 09:08 WBC 4.0 L (4.8-10.8) X10*3/uL Lymphocytes # (Manual) 1.0 L (1.2-4.9) X10*3/uL PT (10.0-13.1) SEC INR (0.9-1.1) ABG pH at Pt Temp 7.22 L (7.35-7.45) ABG pCO2 at Pt Temp 55 H (32-45) mmHg ABG pO2 at Pt Temp 72 L (83-108) mmHg VBG pH (7.32-7.43) VBG HCO3 (22-26) mmol/L Chloride (96-108) mmol/L Carbon Dioxide (22-29) mmol/L BUN (9-16) mg/dL Creatinine (0.5-1.4) mg/dL Lactic Acid 2.4 H* (0.5-2.0) mmol/L Lactic Acid F/U @ 2Hr (0.5-2.0) mmol/L Lactic Acid F/U @ 4Hr (0.5-2.0) mmol/L Calcium (8.4-10.2) mg/dL AST (5-37) U/L ALT (0-40) U/L Total Creatine Kinase (38-174) U/L Total Protein (6.5-8.0) g/dL Albumin (3.5-5.0) g/dL Urine Protein (Neg-Trace) mg/dL Urine Blood (Negative) Ur Leukocyte Esterase (Negative) Urine RBC (0-2) /HPF Urine WBC (0-5) /HPF Salicylates (15-30) mg/dL Urine Opiates Screen (Not Detect) Urine Fentanyl Screen (Not Detect) U Marijuana (THC) Screen (Not Detect) 04/08/23 04/08/23 04/08/23 Range/Units 09:08 09:08 09:08 WBC (4.8-10.8) X10*3/uL Lymphocytes # (Manual) (1.2-4.9) X10*3/uL PT 18.1 H (10.0-13.1) SEC INR 1.6 H (0.9-1.1) ABG pH at Pt Temp (7.35-7.45) ABG pCO2 at Pt Temp (32-45) mmHg ABG pO2 at Pt Temp (83-108) mmHg VBG pH (7.32-7.43) VBG HCO3 (22-26) mmol/L Chloride (96-108) mmol/L Carbon Dioxide 21 L (22-29) mmol/L BUN 31 H (9-16) mg/dL Creatinine 2.33 H (0.5-1.4) mg/dL Lactic Acid (0.5-2.0) mmol/L Lactic Acid F/U @ 2Hr (0.5-2.0) mmol/L Lactic Acid F/U @ 4Hr (0.5-2.0) mmol/L Calcium (8.4-10.2) mg/dL AST 865 H (5-37) U/L ALT 1144 H (0-40) U/L Total Creatine Kinase 6246 H (38-174) U/L Total Protein (6.5-8.0) g/dL Albumin (3.5-5.0) g/dL Urine Protein 100 (2+) H (Neg-Trace) mg/dL Urine Blood Large (3+) H (Negative) Ur Leukocyte Esterase Trace H (Negative) Urine RBC 3-5 H (0-2) /HPF Urine WBC 11-20 H (0-5) /HPF Salicylates < 5.0 L (15-30) mg/dL Urine Opiates Screen (Not Detect) Urine Fentanyl Screen (Not Detect) U Marijuana (THC) Screen (Not Detect) 04/08/23 04/08/23 04/08/23 Range/Units 09:08 09:12 11:26 WBC (4.8-10.8) X10*3/uL Lymphocytes # (Manual) (1.2-4.9) X10*3/uL PT (10.0-13.1) SEC INR (0.9-1.1) ABG pH at Pt Temp (7.35-7.45) ABG pCO2 at Pt Temp (32-45) mmHg ABG pO2 at Pt Temp (83-108) mmHg VBG pH 7.28 L (7.32-7.43) VBG HCO3 27 H (22-26) mmol/L Chloride (96-108) mmol/L Carbon Dioxide (22-29) mmol/L BUN (9-16) mg/dL Creatinine (0.5-1.4) mg/dL Lactic Acid (0.5-2.0) mmol/L Lactic Acid F/U @ 2Hr 4.2 H* (0.5-2.0) mmol/L Lactic Acid F/U @ 4Hr (0.5-2.0) mmol/L Calcium (8.4-10.2) mg/dL AST (5-37) U/L ALT (0-40) U/L Total Creatine Kinase (38-174) U/L Total Protein (6.5-8.0) g/dL Albumin (3.5-5.0) g/dL Urine Protein (Neg-Trace) mg/dL Urine Blood (Negative) Ur Leukocyte Esterase (Negative) Urine RBC (0-2) /HPF Urine WBC (0-5) /HPF Salicylates (15-30) mg/dL Urine Opiates Screen POSITIVE H (Not Detect) Urine Fentanyl Screen POSITIVE H (Not Detect) U Marijuana (THC) Screen POSITIVE H (Not Detect) 04/08/23 04/08/23 04/08/23 Range/Units 11:31 14:51 14:51 WBC (4.8-10.8) X10*3/uL Lymphocytes # (Manual) (1.2-4.9) X10*3/uL PT (10.0-13.1) SEC INR (0.9-1.1) ABG pH at Pt Temp (7.35-7.45) ABG pCO2 at Pt Temp (32-45) mmHg ABG pO2 at Pt Temp (83-108) mmHg VBG pH 7.24 L (7.32-7.43) VBG HCO3 21 L (22-26) mmol/L Chloride 110 H (96-108) mmol/L Carbon Dioxide 21 L (22-29) mmol/L BUN 32 H (9-16) mg/dL Creatinine 1.69 H (0.5-1.4) mg/dL Lactic Acid (0.5-2.0) mmol/L Lactic Acid F/U @ 2Hr (0.5-2.0) mmol/L Lactic Acid F/U @ 4Hr 2.8 H* (0.5-2.0) mmol/L Calcium 7.6 L D (8.4-10.2) mg/dL AST 1262 H (5-37) U/L ALT 1310 H (0-40) U/L Total Creatine Kinase 43028 H (38-174) U/L Total Protein 4.9 L (6.5-8.0) g/dL Albumin 3.2 L (3.5-5.0) g/dL Urine Protein (Neg-Trace) mg/dL Urine Blood (Negative) Ur Leukocyte Esterase (Negative) Urine RBC (0-2) /HPF Urine WBC (0-5) /HPF Salicylates (15-30) mg/dL Urine Opiates Screen (Not Detect) Urine Fentanyl Screen (Not Detect) U Marijuana (THC) Screen (Not Detect) Short CBC 04/08/23 Range/Units 09:08 WBC 4.0 L (4.8-10.8) X10*3/uL Hgb 15.7 (14.0-18.0) g/dl Hct 46.8 (42.0-52.0) % Plt Count 200 (160-400) X10*3/uL BMP 04/08/23 04/08/23 09:08 14:51 Sodium 139 139 Potassium 4.9 4.6 Chloride 103 110 H Carbon Dioxide 21 L 21 L BUN 31 H 32 H Creatinine 2.33 H 1.69 H Calcium 8.4 D 7.6 L D Cardiac Enzymes 04/08/23 04/08/23 04/08/23 Range/Units 09:07 09:08 14:51 Total Creatine Kinase Cancelled 6246 H 67899 H Liver Function 04/08/23 04/08/23 Range/Units 09:08 14:51 Total Bilirubin 1.0 0.6 (0.0-1.0) mg/dL Direct Bilirubin 0.3 (0.0-0.5) mg/dL AST 865 H 1262 H (5-37) U/L ALT 1144 H 1310 H (0-40) U/L Alkaline Phosphatase 81 61 (39-117) U/L Albumin 4.4 3.2 L (3.5-5.0) g/dL Urine 04/08/23 Range/Units 09:08 Urine Color Dark Yellow Urine Appearance Cloudy Urine pH 5.0 (5.0-9.0) Ur Specific [place] 1.020 (1.005-1.025) Urine Protein 100 (2+) H (Neg-Trace) mg/dL Urine Glucose (UA) Negative (Negative) mg/dL All other labs normal. Assessment and Plan (1) Rhabdomyolysis: Status: Acute (2) Compartment syndrome of buttock: Status: Acute Plan 28-year-old male patient with evidence of a right buttock compartment syndrome from prolonged pressure. Patient's CPK levels have increased dramatically since admission with evidence of rhabdomyolysis. Discussed situation with the patient's family (sister Huong ). Discussed possible fasciotomy release the compartment syndrome as the safest alternative. After discussion of the procedure, risks, and alternatives, she consents to the surgery. He will be taken to the OR tonight for procedure as soon as possible. Time Spent With Patient Time: Total time managing care of this patient today ____ minutes. Procedures Date of Service Date of Service: 04/08/23
--- NOTE | 2023-04-08 16:44 | P.CONAN_ITS ---
HPI - Anesthesia Eval Consult details Narrative: Fasciotomy of buttock PMFSH Active Problems Active Problems: All Active Problems (Updated 04/08/23 @ 16:43 by Dorian Rios MD) Compartment syndrome of buttock (Acute) Rhabdomyolysis (Acute) Pneumothorax, left (Acute) Aspiration pneumonitis (Acute) Acute renal injury (Acute) Acute respiratory failure (Acute) Schizophrenia (Acute) Pneumonia (Acute) Past Medical History Medical History Chronic schizophrenia PTSD (post-traumatic stress disorder) Schizoaffective disorder Family History Family history of problems with anesthesia: Unobtainable Surgical History Surgical History Hx of hand surgery History of Problems with Anesthesia: Unobtainable Social History Social History Household Members: Unknown / Unable to assess Household Members Other:: residential Housing: Unknown / Unable to assess Housing Other:: residential Do you presently have visiting nurse or other home services: No Unable to assess alcohol history related to: Unable to respond and Unknown Alcohol intake: current Alcohol intake frequency: does not drink Patient Tobacco Use Status: Tobacco use Unknown Tobacco use type: Cigar Cigarette Packs Per Day: 0.5 Cigarettes Per Day: 5 Years Smoked: 10 Second Hand Smoke Exposure: Yes Use of substances other than those prescribed or required for medical reasons: Yes Substance Use Type: Marijuana Advance Directives: No service: No Sexual orientation: Straight/Heterosexual Meds Allergies Allergy/AdvReac Type Severity Reaction Status Date / Time Penicillins [PCN] Allergy Unknown UNKNOWN Verified 12/12/21 23:33 Active Medications: Current Medications Chlorhexidine Gluconate (Chlorhexidine Gluc Oral Rinse 15 Ml Mouthwash) 15 ml BUCCAL TID [facility] Last Admin: 04/08/23 13:55 Dose: 15 ml Famotidine (Famotidine/Pf 20 Mg/2 Ml Vial) 20 mg IVPUSH DAILY [facility] Heparin Sodium (Porcine) (Heparin Sodium,Porcine 5,000 Unit/Ml Vial) 5,000 unit SUBCUT Q8H [facility] Last Admin: 04/08/23 13:55 Dose: 5,000 unit Propofol (Diprivan) 1,000 mg in 100 mls @ 0 mls/hr IVCONT .Q0M [facility]; Protocol Last Admin: 04/08/23 15:50 Dose: 50 mcg/kg/min, 25.59 mls/hr Ampicillin Sodium/Sulbactam (Sodium 3 gm/ Sodium Chloride) 100 mls @ 200 mls/hr IV Q8H [facility] Lactated Ringer's (Lr) 1,000 mls @ 250 mls/hr IVCONT .Q4H [facility] Last Admin: 04/08/23 15:46 Dose: 250 mls/hr Home Medications Medication Instructions Recorded Confirmed Last Taken Type ketoconazole 2 % topical cream 1 appl topical DAILY 04/08/23 04/08/23 Unknown History olanzapine 10 mg tablet 10 mg PO BEDTIME 04/08/23 04/08/23 Unknown History Exam Exam Date and Time: April 08, 2023 164 Height,Weight and Vital Signs: Height 5 ft 10 in Weight 85.3 kg Last Vital Signs Temp 98.6 F 04/08/23 15:59 Pulse 80 04/08/23 15:59 Resp 22 H 04/08/23 15:59 BP 104/58 L 04/08/23 15:59 Pulse Ox 97 04/08/23 15:59 O2 Del Method Mechanical Ventilation 04/08/23 15:59 O2 Flow Rate 18 04/08/23 09:15 FiO2 50 04/08/23 16:35 Pertinent Lab Results Pertinent Lab Results: Laboratory Tests 04/08/23 04/08/23 04/08/23 08:42 08:52 09:07 WBC RBC Hgb Hct MCV MCH MCHC RDW Plt Count MPV Immature Gran % (Auto) Neut % (Auto) Lymph % (Auto) [place] % (Auto) Eos % (Auto) Baso % (Auto) Lymph # (Auto) [place] # (Auto) Eos # (Auto) Baso # (Auto) Abs Immat Gran (auto) Absolute Neuts (auto) Absolute Nucleated RBC Nucleated RBC % (auto) Neutrophils % (Manual) Band Neutrophils % Lymphocytes % (Manual) Monocytes % (Manual) Eosinophils % (Manual) Abs Neuts (Manual) Lymphocytes # (Manual) Monocytes # (Manual) Eosinophils # (Manual) Platelet Estimate Plt Morphology Comment RBC Morphology PT INR APTT O2 Saturation 89.0 ABG pH at Pt Temp 7.22 L ABG pCO2 at Pt Temp 55 H ABG pO2 at Pt Temp 72 L ABG HCO3 23 ABG Base Excess (Actual) -5.2 VBG pH VBG pCO2 VBG pO2 VBG HCO3 VBG O2 Saturation VBG Base Excess Sodium Potassium Chloride Carbon Dioxide Anion Gap BUN Creatinine Estim Creat Clear Calc Estimated GFR POC Glucose 94 Random Glucose Lactic Acid 2.4 H* Lactic Acid F/U @ 2Hr Lactic Acid F/U @ 4Hr Calcium Magnesium Total Bilirubin Direct Bilirubin AST ALT Alkaline Phosphatase Total Creatine Kinase Total Protein Albumin Urine Color Urine Appearance Urine pH Ur Specific [place] Urine Protein Urine Glucose (UA) Urine Ketones Urine Blood Urine Nitrite Ur Leukocyte Esterase Urine RBC Urine WBC Ur Squamous Epith Cells Calcium Oxalate Crystal Urine Bacteria Hyaline Casts Granular Casts Salicylates Urine Opiates Screen Urine Fentanyl Screen Acetaminophen Ur Barbiturates Screen Ur Phencyclidine Scrn Ur Amphetamines Screen U Benzodiazepines Scrn Urine Cocaine Screen U Marijuana (THC) Screen Ethyl Alcohol 04/08/23 04/08/23 04/08/23 09:07 09:08 09:08 WBC 4.0 L RBC 5.15 Hgb 15.7 Hct 46.8 MCV 90.9 MCH 30.5 MCHC 33.5 RDW 12.1 Plt Count 200 MPV 9.8 Immature Gran % (Auto) Cancelled Neut % (Auto) Cancelled Lymph % (Auto) Cancelled [place] % (Auto) Cancelled Eos % (Auto) Cancelled Baso % (Auto) Cancelled Lymph # (Auto) Cancelled [place] # (Auto) Cancelled Eos # (Auto) Cancelled Baso # (Auto) Cancelled Abs Immat Gran (auto) Cancelled Absolute Neuts (auto) Cancelled Absolute Nucleated RBC 0.000 Nucleated RBC % (auto) 0.0 Neutrophils % (Manual) 65 Band Neutrophils % 5 Lymphocytes % (Manual) 24 Monocytes % (Manual) 4 Eosinophils % (Manual) 2 Abs Neuts (Manual) 2.8 Lymphocytes # (Manual) 1.0 L Monocytes # (Manual) 0.2 Eosinophils # (Manual) 0.1 Platelet Estimate NORMAL Plt Morphology Comment NORMAL RBC Morphology NORMAL PT INR APTT O2 Saturation ABG pH at Pt Temp ABG pCO2 at Pt Temp ABG pO2 at Pt Temp ABG HCO3 ABG Base Excess (Actual) VBG pH VBG pCO2 VBG pO2 VBG HCO3 VBG O2 Saturation VBG Base Excess Sodium 139 Potassium 4.9 Chloride 103 Carbon Dioxide 21 L Anion Gap 20 BUN 31 H Creatinine 2.33 H Estim Creat Clear Calc 49.6 Estimated GFR 34 POC Glucose Random Glucose 94 Lactic Acid Lactic Acid F/U @ 2Hr Lactic Acid F/U @ 4Hr Calcium 8.4 D Magnesium 1.8 Total Bilirubin 1.0 Direct Bilirubin 0.3 AST 865 H ALT 1144 H Alkaline Phosphatase 81 Total Creatine Kinase Cancelled 6246 H Total Protein 6.6 Albumin 4.4 Urine Color Urine Appearance Urine pH Ur Specific [place] Urine Protein Urine Glucose (UA) Urine Ketones Urine Blood Urine Nitrite Ur Leukocyte Esterase Urine RBC Urine WBC Ur Squamous Epith Cells Calcium Oxalate Crystal Urine Bacteria Hyaline Casts Granular Casts Salicylates Cancelled < 5.0 L Urine Opiates Screen Urine Fentanyl Screen Acetaminophen Cancelled < 17 Ur Barbiturates Screen Ur Phencyclidine Scrn Ur Amphetamines Screen U Benzodiazepines Scrn Urine Cocaine Screen U Marijuana (THC) Screen Ethyl Alcohol Cancelled < 10 04/08/23 04/08/23 04/08/23 09:08 09:08 09:08 WBC RBC Hgb Hct MCV MCH MCHC RDW Plt Count MPV Immature Gran % (Auto) Neut % (Auto) Lymph % (Auto) [place] % (Auto) Eos % (Auto) Baso % (Auto) Lymph # (Auto) [place] # (Auto) Eos # (Auto) Baso # (Auto) Abs Immat Gran (auto) Absolute Neuts (auto) Absolute Nucleated RBC Nucleated RBC % (auto) Neutrophils % (Manual) Band Neutrophils % Lymphocytes % (Manual) Monocytes % (Manual) Eosinophils % (Manual) Abs Neuts (Manual) Lymphocytes # (Manual) Monocytes # (Manual) Eosinophils # (Manual) Platelet Estimate Plt Morphology Comment RBC Morphology PT 18.1 H INR 1.6 H APTT 30.6 O2 Saturation ABG pH at Pt Temp ABG pCO2 at Pt Temp ABG pO2 at Pt Temp ABG HCO3 ABG Base Excess (Actual) VBG pH VBG pCO2 VBG pO2 VBG HCO3 VBG O2 Saturation VBG Base Excess Sodium Potassium Chloride Carbon Dioxide Anion Gap BUN Creatinine Estim Creat Clear Calc Estimated GFR POC Glucose Random Glucose Lactic Acid Lactic Acid F/U @ 2Hr Lactic Acid F/U @ 4Hr Calcium Magnesium Total Bilirubin Direct Bilirubin AST ALT Alkaline Phosphatase Total Creatine Kinase Total Protein Albumin Urine Color Dark Yellow Urine Appearance Cloudy Urine pH 5.0 Ur Specific [place] 1.020 Urine Protein 100 (2+) H Urine Glucose (UA) Negative Urine Ketones Trace Urine Blood Large (3+) H Urine Nitrite Negative Ur Leukocyte Esterase Trace H Urine RBC 3-5 H Urine WBC 11-20 H Ur Squamous Epith Cells 6-10 Calcium Oxalate Crystal Present Urine Bacteria None Seen Hyaline Casts >20 Granular Casts Present Salicylates Urine Opiates Screen POSITIVE H Urine Fentanyl Screen POSITIVE H Acetaminophen Ur Barbiturates Screen Not Detected Ur Phencyclidine Scrn Not Detected Ur Amphetamines Screen Not Detected U Benzodiazepines Scrn Not Detected Urine Cocaine Screen Not Detected U Marijuana (THC) Screen POSITIVE H Ethyl Alcohol 04/08/23 04/08/23 04/08/23 09:12 11:26 11:31 WBC RBC Hgb Hct MCV MCH MCHC RDW Plt Count MPV Immature Gran % (Auto) Neut % (Auto) Lymph % (Auto) [place] % (Auto) Eos % (Auto) Baso % (Auto) Lymph # (Auto) [place] # (Auto) Eos # (Auto) Baso # (Auto) Abs Immat Gran (auto) Absolute Neuts (auto) Absolute Nucleated RBC Nucleated RBC % (auto) Neutrophils % (Manual) Band Neutrophils % Lymphocytes % (Manual) Monocytes % (Manual) Eosinophils % (Manual) Abs Neuts (Manual) Lymphocytes # (Manual) Monocytes # (Manual) Eosinophils # (Manual) Platelet Estimate Plt Morphology Comment RBC Morphology PT INR APTT O2 Saturation ABG pH at Pt Temp ABG pCO2 at Pt Temp ABG pO2 at Pt Temp ABG HCO3 ABG Base Excess (Actual) VBG pH 7.28 L 7.24 L VBG pCO2 56 47 VBG pO2 63 53 VBG HCO3 27 H 21 L VBG O2 Saturation 89.0 74.0 VBG Base Excess -0.7 -6.4 Sodium Potassium Chloride Carbon Dioxide Anion Gap BUN Creatinine Estim Creat Clear Calc Estimated GFR POC Glucose Random Glucose Lactic Acid Lactic Acid F/U @ 2Hr 4.2 H* Lactic Acid F/U @ 4Hr Calcium Magnesium Total Bilirubin Direct Bilirubin AST ALT Alkaline Phosphatase Total Creatine Kinase Total Protein Albumin Urine Color Urine Appearance Urine pH Ur Specific [place] Urine Protein Urine Glucose (UA) Urine Ketones Urine Blood Urine Nitrite Ur Leukocyte Esterase Urine RBC Urine WBC Ur Squamous Epith Cells Calcium Oxalate Crystal Urine Bacteria Hyaline Casts Granular Casts Salicylates Urine Opiates Screen Urine Fentanyl Screen Acetaminophen Ur Barbiturates Screen Ur Phencyclidine Scrn Ur Amphetamines Screen U Benzodiazepines Scrn Urine Cocaine Screen U Marijuana (THC) Screen Ethyl Alcohol 04/08/23 04/08/23 14:51 14:51 WBC RBC Hgb Hct MCV MCH MCHC RDW Plt Count MPV Immature Gran % (Auto) Neut % (Auto) Lymph % (Auto) [place] % (Auto) Eos % (Auto) Baso % (Auto) Lymph # (Auto) [place] # (Auto) Eos # (Auto) Baso # (Auto) Abs Immat Gran (auto) Absolute Neuts (auto) Absolute Nucleated RBC Nucleated RBC % (auto) Neutrophils % (Manual) Band Neutrophils % Lymphocytes % (Manual) Monocytes % (Manual) Eosinophils % (Manual) Abs Neuts (Manual) Lymphocytes # (Manual) Monocytes # (Manual) Eosinophils # (Manual) Platelet Estimate Plt Morphology Comment RBC Morphology PT INR APTT O2 Saturation ABG pH at Pt Temp ABG pCO2 at Pt Temp ABG pO2 at Pt Temp ABG HCO3 ABG Base Excess (Actual) VBG pH VBG pCO2 VBG pO2 VBG HCO3 VBG O2 Saturation VBG Base Excess Sodium 139 Potassium 4.6 Chloride 110 H Carbon Dioxide 21 L Anion Gap 13 BUN 32 H Creatinine 1.69 H Estim Creat Clear Calc 68.3 Estimated GFR 49 POC Glucose Random Glucose 97 Lactic Acid Lactic Acid F/U @ 2Hr Lactic Acid F/U @ 4Hr 2.8 H* Calcium 7.6 L D Magnesium Total Bilirubin 0.6 Direct Bilirubin AST 1262 H ALT 1310 H Alkaline Phosphatase 61 Total Creatine Kinase 23139 H Total Protein 4.9 L Albumin 3.2 L Urine Color Urine Appearance Urine pH Ur Specific [place] Urine Protein Urine Glucose (UA) Urine Ketones Urine Blood Urine Nitrite Ur Leukocyte Esterase Urine RBC Urine WBC Ur Squamous Epith Cells Calcium Oxalate Crystal Urine Bacteria Hyaline Casts Granular Casts Salicylates Urine Opiates Screen Urine Fentanyl Screen Acetaminophen Ur Barbiturates Screen Ur Phencyclidine Scrn Ur Amphetamines Screen U Benzodiazepines Scrn Urine Cocaine Screen U Marijuana (THC) Screen Ethyl Alcohol Narrative Narrative: Pt is intubated, CT placed from pneumothorax Airway Heart: rrr Lungs: Diminished BS Assessment and Plan Final Anesthetic Review Family History of Problems with Anesthesia: Unobtainable History of Problems with Anesthesia: Unobtainable ASA Class: IV and Emergency Final Preanesthetic Review: Anes Risks/Benef Reviewed Patient Risk: High Procedure Risk: Intermediate Anesthetic Plan Anesthetic Plan: GA and Agree w/ Assess. and Plan Disposition: Inp. Admit - ICU
[2023-04-08] MEDS: Lactated Ringers 1,000 ML 999 ML IV (17:30)
[2023-04-08] MEDS: propofoL 1,000 MG/100 ML VIAL 20.47 MG IVCONT (18:37)
--- NOTE | 2023-04-08 19:02 | W.PM.OPN ---
Operative Note Operative Note Date of Service: 04/08/23 Narrative: Preoperative diagnosis: Right buttock compartment syndrome Postoperative diagnosis:same Procedure: Right glutial fasciotomy Surgeon: Dorian Rios MD Elephant Keeper: none Anesthesia: general ET Indications for procedure: 28 year old male, found unresponsive after drinking 10 beers, and possibly taking fentanyl. Patient was found to have elevated CPKs which was increasing. Area of redness noted in the right buttock therefore right buttock compression syndrome. Operative findings: Normal appearing gluteal muscles. Specimen: none Estimated blood loss: 20 mls Complications:none Procedure details: Patient brought to the OR and was placed in a supine position. After administering general anesthesia, he was placed in a left lateral decubitus position. A surgical time out was called and the consent confirmed. Patient is on antibiotics and venadyne boots are in place. A curvilinear incision was made in a longitudinal fashion, behind the right hip, extending slighly below the hip. The incision was carried down through subcutaneous tissue using electrocautery up to the fascia. The fascia of the gluteus minimus, jimmy and medius was identified and each opened using electrocautery. Healthy, viable muscle was identified below the fascia. No abscess or necrosis was identified. Wounds were irrigated and checked for hemostasis. Local was infiltrated around the incision. Incision was then packed with saline soaked gauze, wet to dry with ABD pads over followed by paper tape. Patient tolerated the procedure well and was transfered to ICU in stable condition.
[2023-04-08] MEDS: Norepinephrine Bitartrate/D5W 8 MG/250 ML PLAST..BAG 31.99 MG IV (19:37)
--- NOTE | 2023-04-08 19:41 | PC.NURSE ---
Assumed care of patient 15:00 Consult to general surgery, MD recommends fasciotomy for concern of compartment syndrome to right buttocks. 15:30 MD notified of low BP and low MAP 62. Per MD orders, administered 1000 ml LR @999ml/hr, then continue LR @250ml/hr as continuous fluids IV. Notify MD if no improvement in MAP. Pt evaluated by general surgery and anesthesia. Informed consent obtained by MD from sister/next of kin Huong. Pt transported to OR 17:37. Pt returned to room 18:22. Pt given 2 doses phenylephrine IV in procedure per anesthesia MD. Dressing to right hip is wet to dry gauze and ABD pad. Per sx MD, Reinforce dressing with abd pads if drainage noted and surgery will change first dressing 04/09. 19:00 Patient MAP low 60. ICU PA states plan of care is central line placement and need for vasopressors. This RN communicated the above to next RN in nurse to nurse report.
--- NOTE | 2023-04-08 20:43 | W.PM.CCHP ---
Procedures Date of Service Date of Service: 04/08/23 Central Line Placement Right IJ: Central Line Comments: A quick time-out was made for clarification and proper patient identification, patient was positioned, landmarks were identified, US used to locate a large compressible IJ.? The right neck was widely prepped and draped in a full sterile fashion.? Ultrasound was used to locate again the right IJ, the vein was cannulated on the 1st pass with an 18 gauge thin needle, dark nonpulsatile blood return was obtained.? The wire was threaded, a small incision was made at its base and dilator inserted.? A 16 cm triple-lumen central venous catheter was advanced into the vein up to the hub without problems, wired was removed. Ports had? good blood return and flushed x3.? The catheter was secured with 3 sutures at 3 sites, a Biopatch and dry sterile dressing were applied. Post procedure chest x-ray showed the line to be in good position without pneumothorax.? No bleeding or complications noted. Consent for Procedure: Emergent-no informed consent obtained Time out performed: Yes Sterile Technique Used: Yes Patient placed on monitor/pulse ox: Yes prep: mask, gown and gloves Central line prep: Chlorhexidine scrub Ultrasound used for placement: Yes Central line lumen inserted: triple Post procedure: sutured in place, good blood return, all ports aspirated, flushed, capped and sterile dressing applied Post procedure x-ray: tip of catheter in good position and no pneumothorax seen Patient tolerated procedure: well and no complications Complications: none
[2023-04-08 21:21] LABS: MANUAL DIFF FLAG NO
[2023-04-08 21:24] LABS: Basophils Percent Auto 0.2 % (0-2); Eosinophils Percent Auto 0.2 % (0-4); Hematocrit 36.4 % (42.0-52.0); Hemoglobin 12.1 g/dl (14.0-18.0); Imm Gran Abs Auto 0.01 X10*3/uL (0.00-0.03); Imm Gran Pct Auto 0.1 % (0.0-0.4); Lymphocytes Absolute Auto 1.3 X10*3/uL (1.2-4.9); Lymphocytes Percent Auto 15.7 % (20-40); Mean Corpuscular HGB Conc 33.2 g/dl (31.0-36.0); Mean Corpuscular Volume 90.1 fL (80.0-98.0); Mean Platelet Volume 9.7 fL (9.4-12.4); Monocytes Absolute Auto 0.6 X10*3/uL (0.1-1.2); Monocytes Percent Auto 6.8 % (2-11); Neutrophils Absolute Auto 6.3 x10*3/uL (2.0-8.3); Platelet Count 141 X10*3/uL (160-400); Red Blood Count 4.04 X10*6/uL (4.60-5.80); Red Cell Distribution Width 12.3 % (11.0-16.0); VBG Base Excess -0.6 mmol/L; VBG HCO3 24 mmol/L (22-26); VBG pCO2 42 mmHg; VBG pH 7.36 (7.32-7.43); VBG pO2 53 mmHg; White Blood Count 8.1 X10*3/uL (4.8-10.8)
[2023-04-08 21:49] LABS: Alanine Aminotransferase 1364 U/L (0-40); Albumin Level 2.9 g/dL (3.5-5.0); Alkaline Phosphatase 56 U/L (39-117); Anion Gap 13 (12-20); Aspartate Amino Transferase 1315 U/L (5-37); Bilirubin Total 0.8 mg/dL (0.0-1.0); Blood Urea Nitrogen 25 mg/dL (9-16); Calcium 7.3 mg/dL (8.4-10.2); Carbon Dioxide 23 mmol/L (22-29); Chloride 107 mmol/L (96-108); Creatinine Clr Calc Pharmacy 97.9; Estimated Glomerular Filt Rate > 60; Glucose Random 108 mg/dL (60-115); Phosphorus 2.6 mg/dL (2.7-4.5); Potassium 4.7 mmol/L (3.3-5.1); Sodium 138 mmol/L (135-145); Total Protein 4.4 g/dL (6.5-8.0)
[2023-04-09] VITALS (42 sets, daily range): BP systolic 106–194; BP diastolic 56–100; PULSE 50–81; RESP 18–24; TEMP 34.5–38.4; O2SAT 91–99; BMI 32.3
--- NOTE | 2023-04-09 | ECG_ITS ---
Test Reason : trop abn Blood Pressure : / mmHG Vent. Rate : 079 BPM Atrial Rate : 079 BPM P-R Int : 130 ms QRS Dur : 110 ms QT Int : 480 ms P-R-T Axes : 041 053 019 degrees QTc Int : 550 ms Normal sinus rhythm Incomplete right bundle branch block T wave abnormality, consider anterior ischemia Prolonged QT Abnormal ECG When compared with ECG of 08-APR-2023 09:11, Vent. rate has decreased BY 40 BPM T wave inversion now evident in Inferior leads T wave inversion now evident in Anterior leads Referred By: Case Woodall Electronically Signed By:DIANA ARGUETA
[2023-04-09] MEDS: Lactated Ringers 1,000 ML 250 ML IVCONT ×6 (00:03→18:30)
[2023-04-09] MEDS: Norepinephrine Bitartrate/D5W 8 MG/250 ML PLAST..BAG 44.78 MG IV (00:05)
[2023-04-09 00:06] LABS: Venous Blood Gas Refer to POC result
[2023-04-09 00:26] LABS: Magnesium 1.7 mg/dL (1.6-2.6)
[2023-04-09] MEDS: Albumin Human 25 % 100 ML 133.33 ML IV ×2 (00:50→02:00)
[2023-04-09] MEDS: Heparin Sodium,Porcine 5,000 UNIT/ML VIAL 5000 UNIT SUBCUT ×3 (02:00→18:30)
[2023-04-09] MEDS: propofoL 1,000 MG/100 ML VIAL 15.35 MG IVCONT (04:00)
[2023-04-09 04:51] LABS: VBG Base Excess 3.2 mmol/L; VBG HCO3 28 mmol/L (22-26); VBG pCO2 44 mmHg; VBG pO2 57 mmHg
[2023-04-09 05:09] LABS: Hematocrit 31.1 % (42.0-52.0); Hemoglobin 10.5 g/dl (14.0-18.0); Mean Corpuscular HGB Conc 33.8 g/dl (31.0-36.0); Mean Corpuscular Hemoglobin 30.4 pg (27.0-33.0); Mean Corpuscular Volume 90.1 fL (80.0-98.0); Mean Platelet Volume 10.1 fL (9.4-12.4); Platelet Count 114 X10*3/uL (160-400); Red Blood Count 3.45 X10*6/uL (4.60-5.80); Red Cell Distribution Width 12.4 % (11.0-16.0); White Blood Count 7.5 X10*3/uL (4.8-10.8)
[2023-04-09 05:18] LABS: INTERNATIONAL NORM RATIO 1.9 (0.9-1.1); Prothrombin Time 22.6 SEC (10.0-13.1)
[2023-04-09 05:33] LABS: Alanine Aminotransferase 1130 U/L (0-40); Albumin Level 3.2 g/dL (3.5-5.0); Alkaline Phosphatase 48 U/L (39-117); Anion Gap 11 (12-20); Aspartate Amino Transferase 851 U/L (5-37); Blood Urea Nitrogen 20 mg/dL (9-16); Calcium 7.8 mg/dL (8.4-10.2); Carbon Dioxide 24 mmol/L (22-29); Chloride 107 mmol/L (96-108); Creatinine Clr Calc Pharmacy 119.1; Estimated Glomerular Filt Rate > 60; Glucose Random 106 mg/dL (60-115); Magnesium 1.9 mg/dL (1.6-2.6); Phosphorus 1.5 mg/dL (2.7-4.5); Potassium 4.2 mmol/L (3.3-5.1); Sodium 138 mmol/L (135-145); Total Protein 4.5 g/dL (6.5-8.0)
[2023-04-09 05:37] LABS: Venous Blood Gas Refer to POC result
[2023-04-09 05:42] LABS: Band Neutrophils Percent 15 % (3-5); Eosinophils Absolute Manual 0.2 X10*3/uL (0.0-0.4); Eosinophils Percent Manual 2 % (0-4); Lymphocytes Absolute Manual 1.6 X10*3/uL (1.2-4.9); Lymphocytes Percent Manual 21 % (20-40); Monocytes Absolute Manual 0.2 X10*3/uL (0.1-1.2); Monocytes Percent Manual 3 % (2-11); Neutrophils Absolute Manual 5.6 X10*3/uL (2.0-8.3); Neutrophils Percent Manual 59 % (45-73); Platelet Estimate SLIGHTLY DECREASED (NORMAL); RBC Morphology NOTED
[2023-04-09 05:43] LABS: Basophilic Stippling 1+ (0-2) /OIF; Burr Cells 1+ (0-2) /OIF; Platelet Morphology Comment NORMAL; Smudge Cells PRESENT
[2023-04-09] MEDS: Ampicillin Sodium/Sulbactam Na 3 GM in 0.9 % Sodium Chloride 100 ML IV ×3 (05:54→23:48)
[2023-04-09] MEDS: Potassium Phosphate/NS 15 MMOL/250 ML PLAST..BAG 62.5 MMOL IV ×3 (06:13→23:57)
[2023-04-09] MEDS: Chlorhexidine Gluc Oral Rinse 15 ML MOUTHWASH BUCCAL ×3 (07:15→21:55)
[2023-04-09] MEDS: Famotidine/PF 20 MG/2 ML VIAL IVPUSH (07:15)
[2023-04-09] MEDS: Albumin Human 25 % 100 ML IV ×2 (07:15→08:45)
[2023-04-09] MEDS: Norepinephrine Bitartrate/D5W 8 MG/250 ML PLAST..BAG 15.99 MG IV (08:39)
[2023-04-09] MEDS: Magnesium Sulfate/H2O 2 GM/50 ML PIGGYBACK IV ×2 (09:45→23:53)
--- NOTE | 2023-04-09 10:07 | MHC.CM.PN ---
Pt presently intubated in ICU and unable to participate in CM assessment: Information obtained from ICU care team and EMR. Pt from home w/GF, ETOH hx: no services or DME. Pt will need CARE team consult prior to d/c - family to transport to home. No HCP on file: PCP unknown. Message left for his sister Radhika for additional information. CM to follow.
--- NOTE | 2023-04-09 11:36 | P.PNGS_ITS ---
Subjective Subjective Date of Service: 04/09/23 Interval history: Intubated and sedated Physical Exam Vital Signs: Vital Signs: Last Vital Signs Temp 100.2 F 04/09/23 11:00 Pulse 56 04/09/23 11:00 Resp 22 H 04/09/23 11:00 BP 120/71 04/09/23 11:00 Pulse Ox 99 04/09/23 11:00 O2 Del Method Mechanical Ventil ation 04/09/23 11:00 O2 Flow Rate 18 04/08/23 09:15 FiO2 40 04/09/23 11:00 BMI result Body Mass Index 32.3 Const: General: no acute distress Resp: Other: Breathing comfortably on vent Skin: Other: Dressings changed to right gluteal wound. Redressed with fluffed gauze and ABD pads. Wounds are clean and intact. 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 Objective Data Active Medications Chlorhexidine Gluconate (Chlorhexidine Gluc Oral Rinse 15 Ml Mouthwash) 15 ml BUCCAL TID [facility] Last Admin: 04/09/23 07:15 Dose: 15 ml Documented By: EDMUND Famotidine (Famotidine/Pf 20 Mg/2 Ml Vial) 20 mg IVPUSH DAILY [facility] Last Admin: 04/09/23 07:15 Dose: 20 mg Documented By: EDMUND Heparin Sodium (Porcine) (Heparin Sodium,Porcine 5,000 Unit/Ml Vial) 5,000 unit SUBCUT Q8H [facility] Last Admin: 04/09/23 10:25 Dose: 5,000 unit Documented By: EDMUND Propofol (Diprivan) 1,000 mg in 100 mls @ 0 mls/hr IVCONT .Q0M [facility]; Protocol Last Titration: 04/09/23 08:50 Dose: 0 mcg/kg/min, 0 mls/hr Documented By: EDMUND Ampicillin Sodium/Sulbactam (Sodium 3 gm/ Sodium Chloride) 100 mls @ 200 mls/hr IV Q8H [facility] Last Infusion: 04/09/23 06:25 Dose: 0 mls/hr Documented By: YULISSA Lactated Ringer's (Lr) 1,000 mls @ 250 mls/hr IVCONT .Q4H [facility] Last Admin: 04/09/23 10:14 Dose: 250 mls/hr Documented By: EDMUND Norepinephrine Bitartrate (Levophed) 8 mg in 250 mls @ 0 mls/hr IV .Q0M [facility]; Protocol Last Titration: 04/09/23 09:30 Dose: 0.08 mcg/kg/min, 12.8 mls/hr Documented By: EDMUND Potassium Phosphate (Kphos) 15 mmol in 250 mls @ 62.5 mls/hr IV Q4H [facility] Stop: 04/09/23 13:59 Last Admin: 04/09/23 10:26 Dose: 62.5 mls/hr Documented By: EDMUND Labs 04/09/23 04:36 04/09/23 04:36 Labs: Laboratory Results - last 24 hr 04/08/23 04/08/23 04/08/23 11:26 11:31 14:51 MCV MCH MCHC RDW Plt Count MPV Immature Gran % (Auto) Neut % (Auto) Lymph % (Auto) [place] % (Auto) Eos % (Auto) Baso % (Auto) Lymph # (Auto) [place] # (Auto) Eos # (Auto) Baso # (Auto) Abs Immat Gran (auto) Absolute Neuts (auto) Absolute Nucleated RBC Nucleated RBC % (auto) Neutrophils % (Manual) Band Neutrophils % Lymphocytes % (Manual) Monocytes % (Manual) Eosinophils % (Manual) Abs Neuts (Manual) Lymphocytes # (Manual) Monocytes # (Manual) Eosinophils # (Manual) Smudge Cells Platelet Estimate Plt Morphology Comment RBC Morphology Basophilic Stippling Ananya Cells PT INR VBG pH 7.24 L VBG pCO2 47 VBG pO2 53 VBG HCO3 21 L VBG O2 Saturation 74.0 VBG Base Excess -6.4 Anion Gap Estim Creat Clear Calc Estimated GFR Random Glucose Lactic Acid F/U @ 2Hr 4.2 H* Lactic Acid F/U @ 4Hr 2.8 H* Calcium Phosphorus Magnesium Total Bilirubin AST ALT Alkaline Phosphatase Total Creatine Kinase Total Protein Albumin 04/08/23 04/08/23 04/08/23 14:51 21:16 21:16 MCV 90.1 MCH 30.0 MCHC 33.2 RDW 12.3 Plt Count 141 L D MPV 9.7 Immature Gran % (Auto) 0.1 Neut % (Auto) 77.0 H Lymph % (Auto) 15.7 L [place] % (Auto) 6.8 Eos % (Auto) 0.2 Baso % (Auto) 0.2 Lymph # (Auto) 1.3 [place] # (Auto) 0.6 Eos # (Auto) 0.0 Baso # (Auto) 0.0 Abs Immat Gran (auto) 0.01 Absolute Neuts (auto) 6.3 Absolute Nucleated RBC 0.000 Nucleated RBC % (auto) 0.0 Neutrophils % (Manual) Band Neutrophils % Lymphocytes % (Manual) Monocytes % (Manual) Eosinophils % (Manual) Abs Neuts (Manual) Lymphocytes # (Manual) Monocytes # (Manual) Eosinophils # (Manual) Smudge Cells Platelet Estimate Plt Morphology Comment RBC Morphology Basophilic Stippling Ananya Cells PT INR VBG pH VBG pCO2 VBG pO2 VBG HCO3 VBG O2 Saturation VBG Base Excess Anion Gap 13 13 Estim Creat Clear Calc 68.3 97.9 Estimated GFR 49 > 60 Random Glucose 97 108 Lactic Acid F/U @ 2Hr Lactic Acid F/U @ 4Hr Calcium 7.6 L D 7.3 L Phosphorus 2.6 L Magnesium 1.7 Total Bilirubin 0.6 0.8 AST 1262 H 1315 H ALT 1310 H 1364 H Alkaline Phosphatase 61 56 Total Creatine Kinase 21998 H 71414 H Total Protein 4.9 L 4.4 L Albumin 3.2 L 2.9 L 04/08/23 04/09/23 04/09/23 21:16 04:36 04:36 MCV 90.1 MCH 30.4 MCHC 33.8 RDW 12.4 Plt Count 114 L MPV 10.1 Immature Gran % (Auto) Cancelled Neut % (Auto) Cancelled Lymph % (Auto) Cancelled [place] % (Auto) Cancelled Eos % (Auto) Cancelled Baso % (Auto) Cancelled Lymph # (Auto) Cancelled [place] # (Auto) Cancelled Eos # (Auto) Cancelled Baso # (Auto) Cancelled Abs Immat Gran (auto) Cancelled Absolute Neuts (auto) Cancelled Absolute Nucleated RBC 0.000 Nucleated RBC % (auto) 0.0 Neutrophils % (Manual) 59 Band Neutrophils % 15 H Lymphocytes % (Manual) 21 Monocytes % (Manual) 3 Eosinophils % (Manual) 2 Abs Neuts (Manual) 5.6 Lymphocytes # (Manual) 1.6 Monocytes # (Manual) 0.2 Eosinophils # (Manual) 0.2 Smudge Cells PRESENT Platelet Estimate SLIGHTLY DECREASED Plt Morphology Comment NORMAL RBC Morphology NOTED Basophilic Stippling 1+ (0-2) [place] Cells 1+ (0-2) PT INR VBG pH 7.36 VBG pCO2 42 VBG pO2 53 VBG HCO3 24 VBG O2 Saturation 81.0 VBG Base Excess -0.6 Anion Gap 11 L Estim Creat Clear Calc 119.1 Estimated GFR > 60 Random Glucose 106 Lactic Acid F/U @ 2Hr Lactic Acid F/U @ 4Hr Calcium 7.8 L D Phosphorus 1.5 L Magnesium 1.9 Total Bilirubin 1.0 AST 851 H ALT 1130 H Alkaline Phosphatase 48 Total Creatine Kinase 8039 H Total Protein 4.5 L Albumin 3.2 L 04/09/23 04/09/23 04:36 04:42 MCV MCH MCHC RDW Plt Count MPV Immature Gran % (Auto) Neut % (Auto) Lymph % (Auto) [place] % (Auto) Eos % (Auto) Baso % (Auto) Lymph # (Auto) [place] # (Auto) Eos # (Auto) Baso # (Auto) Abs Immat Gran (auto) Absolute Neuts (auto) Absolute Nucleated RBC Nucleated RBC % (auto) Neutrophils % (Manual) Band Neutrophils % Lymphocytes % (Manual) Monocytes % (Manual) Eosinophils % (Manual) Abs Neuts (Manual) Lymphocytes # (Manual) Monocytes # (Manual) Eosinophils # (Manual) Smudge Cells Platelet Estimate Plt Morphology Comment RBC Morphology Basophilic Stippling Ananya Cells PT 22.6 H INR 1.9 H VBG pH 7.40 VBG pCO2 44 VBG pO2 57 VBG HCO3 28 H VBG O2 Saturation 86.0 VBG Base Excess 3.2 Anion Gap Estim Creat Clear Calc Estimated GFR Random Glucose Lactic Acid F/U @ 2Hr Lactic Acid F/U @ 4Hr Calcium Phosphorus Magnesium Total Bilirubin AST ALT Alkaline Phosphatase Total Creatine Kinase Total Protein Albumin Microbiology Microbiology Results: Microbiology 04/08/23 09:07 Blood Culture - Preliminary Blood - Venous No growth after 24 hours. 04/08/23 09:08 Blood Culture - Preliminary Blood - Venous No growth after 24 hours. Procedures Date of Service Date of Service: 04/09/23 Progress Note: A&P Assessment and plan (1) Compartment syndrome of buttock: Status: Acute Plan Patient's laboratories have improved with decreased CPK. Wounds are clean without evidence of infection. No evidence of myonecrosis at this time. Time Spent With Patient Time: Total time managing care of this patient today ____ minutes. Quality Stroke Does the patient have a stroke diagnosis?: No VTE Prior VTE?: No VTE Risk Level:: Medical - moderate - high VTE Device Contraindication: N/A - Device Ordered VTE Drug Contraindication: N/A - Med Ordered
--- NOTE | 2023-04-09 13:08 | PM.CCPN ---
Subjective Subjective Date of Service: 04/09/23 Interval History: 28-year-old gentleman with underlying history of schizophrenia alcohol use, marijuana use admitted on 04/08/2023 after he was noted to be unresponsive by his girlfriend for unclear amount of time with full min at the mouse. Patient was transported by EMS to emergency room where he was intubated for hypoxia and respiratory distress. On further evaluation patient with imaging finding of aspiration and left pneumothorax. Initial left mid axillary chest tube placed in emergency room with persistence of pneumothorax and questionable subdiaphragmatic placement. Chest tube removed and replaced with left midclavicular in 3rd intercostal space with air evacuation and improvement in pneumothorax. Patient also noted to have acute kidney injury and rhabdomyolysis and started on IV fluid hydration. He underwent right gluteal fasciotomy with significant improvement in his CPK and renal function. No events overnight. Poor arousal with sedation vacation today. Critical Care Time (minutes): 60 Physical Exam Vital Signs: Vital Signs: Last Vital Signs Temp 100.2 F 04/09/23 12:00 Pulse 57 04/09/23 12:00 Resp 22 H 04/09/23 12:00 BP 126/76 04/09/23 12:00 Pulse Ox 98 04/09/23 12:00 O2 Del Method Mechanical Ventil ation 04/09/23 12:00 O2 Flow Rate 18 04/08/23 09:15 FiO2 40 04/09/23 12:00 BMI result Body Mass Index 32.3 Const: General: no acute distress and other ( Sedated on the vent) Eyes: Sclerae: sclerae normal EOM: EOMs intact bilaterally Neck: Neck: Yes no lymphadenopathy, Yes trachea midline and Yes supple Resp: Effort & Inspection: normal respiratory effort and no respiratory distress Auscultation: clear to auscultation bilaterally Cardio: Rate: regular rate Rhythm: regular rhythm Heart sounds: no gallops, no murmurs and no rubs GI: Palpation (GI): Soft to palpation and Other GI palpation findings present ( Nontender) Auscultation: normal bowel sounds Extrem: General: Yes no pedal edema, No clubbing and No cyanosis Objective Data Labs 04/09/23 04:36 04/09/23 04:36 Labs: Laboratory Results - last 24 hr 04/08/23 04/08/23 04/08/23 14:51 14:51 21:16 WBC 8.1 RBC 4.04 L D Hgb 12.1 L D Hct 36.4 L D MCV 90.1 MCH 30.0 MCHC 33.2 RDW 12.3 Plt Count 141 L D MPV 9.7 Immature Gran % (Auto) 0.1 Neut % (Auto) 77.0 H Lymph % (Auto) 15.7 L [place] % (Auto) 6.8 Eos % (Auto) 0.2 Baso % (Auto) 0.2 Lymph # (Auto) 1.3 [place] # (Auto) 0.6 Eos # (Auto) 0.0 Baso # (Auto) 0.0 Abs Immat Gran (auto) 0.01 Absolute Neuts (auto) 6.3 Absolute Nucleated RBC 0.000 Nucleated RBC % (auto) 0.0 Neutrophils % (Manual) Band Neutrophils % Lymphocytes % (Manual) Monocytes % (Manual) Eosinophils % (Manual) Abs Neuts (Manual) Lymphocytes # (Manual) Monocytes # (Manual) Eosinophils # (Manual) Smudge Cells Platelet Estimate Plt Morphology Comment RBC Morphology Basophilic Stippling Ananya Cells PT INR VBG pH VBG pCO2 VBG pO2 VBG HCO3 VBG O2 Saturation VBG Base Excess Sodium 139 Potassium 4.6 Chloride 110 H Carbon Dioxide 21 L Anion Gap 13 BUN 32 H Creatinine 1.69 H Estim Creat Clear Calc 68.3 Estimated GFR 49 Random Glucose 97 Lactic Acid F/U @ 4Hr 2.8 H* Calcium 7.6 L D Phosphorus Magnesium Total Bilirubin 0.6 AST 1262 H ALT 1310 H Alkaline Phosphatase 61 Total Creatine Kinase 74110 H Total Protein 4.9 L Albumin 3.2 L 04/08/23 04/08/23 04/09/23 21:16 21:16 04:36 WBC 7.5 RBC 3.45 L Hgb 10.5 L Hct 31.1 L MCV 90.1 MCH 30.4 MCHC 33.8 RDW 12.4 Plt Count 114 L MPV 10.1 Immature Gran % (Auto) Cancelled Neut % (Auto) Cancelled Lymph % (Auto) Cancelled [place] % (Auto) Cancelled Eos % (Auto) Cancelled Baso % (Auto) Cancelled Lymph # (Auto) Cancelled [place] # (Auto) Cancelled Eos # (Auto) Cancelled Baso # (Auto) Cancelled Abs Immat Gran (auto) Cancelled Absolute Neuts (auto) Cancelled Absolute Nucleated RBC 0.000 Nucleated RBC % (auto) 0.0 Neutrophils % (Manual) 59 Band Neutrophils % 15 H Lymphocytes % (Manual) 21 Monocytes % (Manual) 3 Eosinophils % (Manual) 2 Abs Neuts (Manual) 5.6 Lymphocytes # (Manual) 1.6 Monocytes # (Manual) 0.2 Eosinophils # (Manual) 0.2 Smudge Cells PRESENT Platelet Estimate SLIGHTLY DECREASED Plt Morphology Comment NORMAL RBC Morphology NOTED Basophilic Stippling 1+ (0-2) Ananya Cells 1+ (0-2) PT INR VBG pH 7.36 VBG pCO2 42 VBG pO2 53 VBG HCO3 24 VBG O2 Saturation 81.0 VBG Base Excess -0.6 Sodium 138 Potassium 4.7 Chloride 107 Carbon Dioxide 23 Anion Gap 13 BUN 25 H Creatinine 1.18 Estim Creat Clear Calc 97.9 Estimated GFR > 60 Random Glucose 108 Lactic Acid F/U @ 4Hr Calcium 7.3 L Phosphorus 2.6 L Magnesium 1.7 Total Bilirubin 0.8 AST 1315 H ALT 1364 H Alkaline Phosphatase 56 Total Creatine Kinase 29110 H Total Protein 4.4 L Albumin 2.9 L 04/09/23 04/09/23 04/09/23 04:36 04:36 04:42 WBC RBC Hgb Hct MCV MCH MCHC RDW Plt Count MPV Immature Gran % (Auto) Neut % (Auto) Lymph % (Auto) [place] % (Auto) Eos % (Auto) Baso % (Auto) Lymph # (Auto) [place] # (Auto) Eos # (Auto) Baso # (Auto) Abs Immat Gran (auto) Absolute Neuts (auto) Absolute Nucleated RBC Nucleated RBC % (auto) Neutrophils % (Manual) Band Neutrophils % Lymphocytes % (Manual) Monocytes % (Manual) Eosinophils % (Manual) Abs Neuts (Manual) Lymphocytes # (Manual) Monocytes # (Manual) Eosinophils # (Manual) Smudge Cells Platelet Estimate Plt Morphology Comment RBC Morphology Basophilic Stippling [place] Cells PT 22.6 H INR 1.9 H VBG pH 7.40 VBG pCO2 44 VBG pO2 57 VBG HCO3 28 H VBG O2 Saturation 86.0 VBG Base Excess 3.2 Sodium 138 Potassium 4.2 Chloride 107 Carbon Dioxide 24 Anion Gap 11 L BUN 20 H Creatinine 0.97 Estim Creat Clear Calc 119.1 Estimated GFR > 60 Random Glucose 106 Lactic Acid F/U @ 4Hr Calcium 7.8 L D Phosphorus 1.5 L Magnesium 1.9 Total Bilirubin 1.0 AST 851 H ALT 1130 H Alkaline Phosphatase 48 Total Creatine Kinase 8039 H Total Protein 4.5 L Albumin 3.2 L Microbiology Microbiology Results: Microbiology 04/08/23 Unknown Urine clean catch - Urine lomax top Urine Culture - Final No growth. 04/08/23 09:07 Blood - Venous Blood Culture - Preliminary No growth after 24 hours. 04/08/23 09:08 Blood - Venous Blood Culture - Preliminary No growth after 24 hours. Progress Note: A&P Assessment and plan (1) Compartment syndrome of buttock: Status: Acute (2) Rhabdomyolysis: Status: Acute (3) Pneumothorax, left: Status: Acute (4) Aspiration pneumonitis: Status: Acute (5) Acute renal injury: Status: Acute (6) Acute respiratory failure: Status: Acute (7) Schizophrenia: Status: Acute Plan Assessment: 28-year-old gentleman admitted with respiratory failure and alteration of mental status likely secondary to aspiration pneumonitis, further complicated by acute renal failure with rhabdomyolysis, and left-sided pneumothorax Plan: Neuro: poor arousal with sedation vacation today, if no improvement will consider MRI in a.m.. Cardiac: No acute issues. Pulmonary: acute respiratory, likely secondary to aspiration pneumonitis on the background of binge alcohol consumption. Now requiring ventilatory support, continue to titrate off as tolerated. Left-sided pneumothorax status post chest tube placement with improvement. Renal: Acute renal failure with rhabdomyolysis , improved after right gluteal fasciotomy. General surgery service care appreciated. Non oliguric. Continue IV fluid support. Continue to monitor CPK, renal indices, and urine output. Endo: No acute issues. GI: No acute issues. ID: empirically covered with Unasyn for possible aspiration pneumonitis. Heme/Onc: No acute issues. Psych: No acute issues. Miscellaneous: No acute issues. Prophylaxis: heparin, famotidine Diet: nothing by mouth Critical care time spent: 60 minutes Quality Stroke Does the patient have a stroke diagnosis?: No VTE Prior VTE?: No VTE Risk Level:: Medical - moderate - high VTE Device Contraindication: N/A - Device Ordered VTE Drug Contraindication: N/A - Med Ordered
[2023-04-09] MEDS: propofoL 1,000 MG/100 ML VIAL 5.12 MG IVCONT (13:43)
[2023-04-09] MEDS: fentaNYL citrate/PF 100 MCG/2 ML VIAL 50 MCG IVPUSH (20:57)
[2023-04-09] MEDS: propofoL 1,000 MG/100 ML VIAL 7.68 MG IVCONT (20:58)
[2023-04-09] MEDS: Rocuronium Bromide 50 MG/5 ML VIAL 30 MG IVPUSH (21:23)
[2023-04-09] MEDS: fentaNYL citrate/NS 1,000 MCG/100 ML PLAST..BAG 2.5 MCG IVCONT (21:45)
[2023-04-09] MEDS: Albuterol Sulfate (0.083%) 2.5 MG/3 ML VIAL.NEB 10 MG INHALE (21:55)
[2023-04-09 22:02] LABS: MANUAL DIFF FLAG NO
[2023-04-09 22:10] LABS: Venous Blood Gas Refer to POC result
[2023-04-09 22:12] LABS: Basophils Percent Auto 0.3 % (0-2); Eosinophils Percent Auto 0.5 % (0-4); Hematocrit 30.6 % (42.0-52.0); Hemoglobin 10.4 g/dl (14.0-18.0); Imm Gran Abs Auto 0.04 X10*3/uL (0.00-0.03); Imm Gran Pct Auto 0.5 % (0.0-0.4); Lymphocytes Absolute Auto 0.7 X10*3/uL (1.2-4.9); Lymphocytes Percent Auto 8.2 % (20-40); Mean Corpuscular Hemoglobin 30.1 pg (27.0-33.0); Mean Corpuscular Volume 88.7 fL (80.0-98.0); Mean Platelet Volume 10.1 fL (9.4-12.4); Monocytes Absolute Auto 0.4 X10*3/uL (0.1-1.2); Monocytes Percent Auto 5.1 % (2-11); Neutrophils Absolute Auto 6.8 x10*3/uL (2.0-8.3); Neutrophils Percent Auto 85.4 % (45-73); Platelet Count 121 X10*3/uL (160-400); Red Blood Count 3.45 X10*6/uL (4.60-5.80); Red Cell Distribution Width 12.4 % (11.0-16.0); White Blood Count 7.9 X10*3/uL (4.8-10.8)
[2023-04-09 22:22] LABS: Alanine Aminotransferase 1170 U/L (0-40); Albumin Level 3.3 g/dL (3.5-5.0); Alkaline Phosphatase 51 U/L (39-117); Anion Gap 11 (12-20); Aspartate Amino Transferase 747 U/L (5-37); Bilirubin Total 1.1 mg/dL (0.0-1.0); Blood Urea Nitrogen 14 mg/dL (9-16); Calcium 7.9 mg/dL (8.4-10.2); Carbon Dioxide 27 mmol/L (22-29); Chloride 107 mmol/L (96-108); Creatinine Clr Calc Pharmacy 176.2; Estimated Glomerular Filt Rate > 60; Glucose Random 104 mg/dL (60-115); Magnesium 1.9 mg/dL (1.6-2.6); Phosphorus 1.3 mg/dL (2.7-4.5); Potassium 3.7 mmol/L (3.3-5.1); Sodium 141 mmol/L (135-145); Total Protein 4.7 g/dL (6.5-8.0)
[2023-04-09 22:38] LABS: Troponin-I High Sensitivity 3247.4 ng/L (<3.5-35.0)
[2023-04-09 23:19] LABS: PTT Heparin Drip 28.5 SEC (53-77.9)
[2023-04-10] VITALS (35 sets, daily range): BP systolic 100–124; BP diastolic 50–86; PULSE 50–98; RESP 12–30; TEMP 34.9–39.9; O2SAT 91–100; BMI 32.8
--- NOTE | 2023-04-10 | ECG_ITS ---
Test Reason : repeat Blood Pressure : / mmHG Vent. Rate : 056 BPM Atrial Rate : 056 BPM P-R Int : 148 ms QRS Dur : 104 ms QT Int : 502 ms P-R-T Axes : 025 052 013 degrees QTc Int : 484 ms Sinus bradycardia RSR' or QR pattern in V1 suggests right ventricular conduction delay Prolonged QT Abnormal ECG When compared with ECG of 09-APR-2023 22:41, QT has shortened Referred By: Case Woodall Electronically Signed By:DIANA ARGUETA
[2023-04-10] MEDS: Tranexamic Acid 1,000 MG in 0.9 % Sodium Chloride 250 ML 32.5 MG IRRIGATION (00:05)
[2023-04-10] MEDS: propofoL 1,000 MG/100 ML VIAL 20.47 MG IVCONT ×3 (00:13→09:22)
[2023-04-10] MEDS: Heparin Sodium,Porcine/1/2NS 25,000 UNIT/250 ML IV.SOLN 12.24 UNIT IVCONT (00:56)
[2023-04-10] MEDS: Lactated Ringers 1,000 ML 250 ML IVCONT (01:48)
--- NOTE | 2023-04-10 04:09 | PC.NURSE ---
Addendum entered by Иван Mukherjee RN 04/10/23 06:57: 05:45-now gloria drained 1350ml...diamox 500mg iv x1...ac rate decreased to 20 Addendum entered by Иван Mukherjee RN 04/10/23 06:33: GLORIA OUTPUT 35-50 CC/HR OVERNIGHT...REMAINED > 11 LITERS (+) SINCE ADMIT...ICU PA UPDATED...LR 250 CC/HR D/C'D....REPEAT TROPONIN AND BNP ORDERED/DRAWN...ECHO ORDERED FOR AM...REPEAT 12-LEAD EKG DONE AND REVIEWED BY PA...OG-TUBE PLACED...ASA 324MG PO VIA OG-TUBE GIVEN...LASIX 40 MG IV X1 GIVEN AND LASIX BID ORDERED...DIURESING PALE YELLOW URINE POST-LASIX...LEFT ANTERIOR CHEST TUBE REMAINS W/O AIR LEAK...FIO2 WEANED TO 30% BY RT...SAO2 [id number] Original Note: CARE ASSUMED 23:15...REMAINS TUBED/VENTED/VCV VENT SUPPORT..SEDATE WITH PROPOFOL/FENTANYL PER JAN...NSR/S.KATELYNN HR 55-66..NO ECTOPY....GLORIA JOSEPH URINE...RIGHT BUTTOCK FASCIOTOMY WOUND DRESSING WITH BLOODY DRAINAGE IN PACKING...TRANEXAMIC ACID ORDERED IN JAN FOR IV INFUSION...PER ICU PA TRANEXAMIC ACID TO BE USED TOPICALLY TO WOUND...NS 0.9%/TRANEXAMIC SOAKED GAUZE USED PACKING TO WOUND AND COVERED WITH SURGICAL DRESSING/PAD...AFTER WOUND PACKED STARTED HEPARIN DRIP 12 UNITS/KG/HR AT 01:00...FOR PTT-HD 07:00...SUCTIONED SMALL AMOUNT BLOODY SECRETIONS VIA ETT BEFORE HEPARIN DRIP INITIATED...CURRENTLY RIGHT BUTTOCK WOUND DRESSING REMAINS DRY/INTACT...SMALL BLISTER TO RIGHT HEEL WITH FOAM DRESSING...REMAINS WITH MILD GENERALIZED EDEMA...FLUID BALANCE SINCE ADMIT APPROX (+) 11 LITERS
--- NOTE | 2023-04-10 05:18 | PM.CCN ---
Critical Care Event Note Summary Date of Service: 04/09/23 Code activated: No Narrative: This case had a high probability of a clinically significant, sudden, or life threatening deterioration of this patient's condition which required my full and direct attention, intervention and personal management. Critical Care Time (minutes): 90 Comment: 10:00 O'clock p.m. on 04/09/2023 While nursing personnel were trying to do a dressing change, I noticed on my monitor that the patient was hypoxic in the 60s and bradycardic as low as 32 beats per minute with prolonged QT. I rushed into the room and noted that the patient was cyanotic throughout his face and the above-mentioned O2 sat heart rate present on the monitor, at this point nursing had stopped his wound care. Immediately checked for pulse which was very strong the femoral aspect, took him off the ventilator and started to bag him which show significant resistance, respiratory was called stat to the room, in the meantime I suctioned the patient for thick semi bloody secretions. It was informed that the patient had been quite awake and had been chewing on the endotracheal tube and possibly beat his tongue, post suctioning his oral cavity, bright red blood was suctioned.? ? Physical exam In general he appeared to be in distress Face was cyanotic otherwise left chest tube in place, connected to suction.? Endotracheal tube at 26 at the lip, balloon intact. Heart bradycardic between 32 and 38 beats per minute Lungs diminished with fine crackles at the bases bilaterally Significant abdominal muscle use, soft. Extremities look 1+ pitting edema bilaterally upper and lower, right buttock wound seen with minor bleeding at the tap inner Edge. 2+ pulses bilaterally upper and lower extremities ? New laboratories: White blood cell 7.9, H&H 10.4 and 30.6, platelets 121. Venous blood gas pH 7.52, pCO2 37, PO2 42, HC03 30, base excess 7.6. Sodium 141, potassium 3.7, chloride 107, carbon dioxide 27, anion gap 11, BUN 14, creatinine 0.76.? Phosphorus 1.3, magnesium 1.9.? SAT 747, ALT 1170; troponin 3247.? Albumin 3.3. ? EKG to my view shows sinus rhythm 79 beats per minute.? No ST elevations, there is new T-wave inversions throughout the anterior lateral leads which were not present on prior EKG.? QTC 550 MS. ? Revised assessment 1.? Hypoxic respiratory failure ? aspiration recurrent Ptx, DC, CHF, Pulm edema, 2.? Possible fluid overload patient appears to be 10-11 L positive, urinary output has decreased to less than 50cc/hr despite IVF at 250cc/hr 3.? Elevated troponin EKG changes likely NSTEMI 4. Hypophosphatemia 5. borderline hypomagnesemia ? Patient appears to be in significant distress he was quite awake, propofol 50 mg doses were given x3 in the peer of a 1 hour and half along with 50 mg of IV fentanyl push and subsequently a drip was started. Initially the patient settled but he require 100% FiO2 in an increase of the PEEP from 5 to 8, change from pressure control to AC.? Around 23:00, he had another episode of hypoxia which required to bag him again and suction him again. Laboratories were reviewed. ?EKG at bedside. ? Lasix 40 mg IV x1, albuterol 10 mg lung, vent adjustments as above mentioned. New vent settings AC, a 22, 450, 8, 100% (will titrate slowly) chest x-ray had been done which showed to my view bilateral infiltrates.? No recurrent pneumothorax, left chest pigtail in place, possible minor evidence of pulmonary edema. ET tube at 5 cmfrom the nina, advanced 2 cm to 28 at the lip. ? Patient's troponin is over 3200 ? The decision to anticoagulate the patient with heparin was made, due to the risk of bleeding from the wound I had reached out to Dr. Rios patient's surgeon who gave him his okay to apply Surgicel versus TXA with gauze to the bleeding areas of concern in the wound. I will start the patient on aspirin, repeat troponin and EKG in the morning. He will need a cardiac consult an echo. Lasix will be given and I will stop IV fluids. phosphorus replacement given, 1 dose of magnesium given the long QTC. ? Clinical update 04/10/2023 05:40 Patient's ventilation and oxygenation has improved significantly, we have been able to titrate him down to FiO2 of 30%, peep of 5, remains on AC mode, 22 and 450. Adequately sedated with propofol and fentanyl. Urine output has improved after Lasix given diurising well and Urine now clear rather than dark brown (yesterday) ? Critical care time used for critical evaluation of this patient, diagnosis, treatment and coordination of care, review her records and documentation TOTAL CRITICAL CARE TIME?? 90 ?MIN . discussion and coordination with consultants, completely separate from any procedures performed. . ? Patient's care was discussed in detail with Dr. Mccullough. ??He is aware of all the above as well as the plan of care for this patient. ?
[2023-04-10] MEDS: Furosemide 40 MG/4 ML VIAL IVPUSH ×3 (05:30→19:07)
[2023-04-10] MEDS: Ampicillin Sodium/Sulbactam Na 3 GM in 0.9 % Sodium Chloride 100 ML IV ×3 (05:30→21:14)
[2023-04-10 05:31] LABS: VBG Base Excess 7.6 mmol/L; VBG HCO3 30 mmol/L (22-26); VBG pCO2 37 mmHg; VBG pH 7.52 (7.32-7.43); VBG pO2 42 mmHg
[2023-04-10 05:52] LABS: MANUAL DIFF FLAG NO
[2023-04-10 05:59] LABS: Basophils Percent Auto 0.4 % (0-2); Eosinophils Absolute Auto 0.2 X10*3/uL (0.0-0.4); Eosinophils Percent Auto 1.9 % (0-4); Imm Gran Abs Auto 0.03 X10*3/uL (0.00-0.03); Imm Gran Pct Auto 0.4 % (0.0-0.4); Lymphocytes Absolute Auto 1.1 X10*3/uL (1.2-4.9); Lymphocytes Percent Auto 14.1 % (20-40); Mean Corpuscular HGB Conc 33.3 g/dl (31.0-36.0); Mean Corpuscular Hemoglobin 30.1 pg (27.0-33.0); Mean Corpuscular Volume 90.3 fL (80.0-98.0); Mean Platelet Volume 10.8 fL (9.4-12.4); Monocytes Absolute Auto 0.4 X10*3/uL (0.1-1.2); Monocytes Percent Auto 5.2 % (2-11); Neutrophils Absolute Auto 6.2 x10*3/uL (2.0-8.3); Platelet Count 116 X10*3/uL (160-400); Red Blood Count 2.99 X10*6/uL (4.60-5.80); Red Cell Distribution Width 12.2 % (11.0-16.0); White Blood Count 7.9 X10*3/uL (4.8-10.8)
[2023-04-10] MEDS: Aspirin 81 MG TAB.CHEW 324 MG PO (06:02)
[2023-04-10 06:20] LABS: B Type Natriuretic Peptide 87 pg/mL (<100)
[2023-04-10 06:21] LABS: Alanine Aminotransferase 1158 U/L (0-40); Albumin Level 2.8 g/dL (3.5-5.0); Alkaline Phosphatase 47 U/L (39-117); Anion Gap 12 (12-20); Aspartate Amino Transferase 684 U/L (5-37); Bilirubin Total 1.2 mg/dL (0.0-1.0); Blood Urea Nitrogen 13 mg/dL (9-16); Calcium 7.6 mg/dL (8.4-10.2); Carbon Dioxide 24 mmol/L (22-29); Chloride 109 mmol/L (96-108); Creatinine Clr Calc Pharmacy 195.6; Estimated Glomerular Filt Rate > 60; Glucose Random 85 mg/dL (60-115); Magnesium 2.1 mg/dL (1.6-2.6); Phosphorus 1.3 mg/dL (2.7-4.5); Potassium 3.7 mmol/L (3.3-5.1); Sodium 141 mmol/L (135-145); Total Protein 4.1 g/dL (6.5-8.0)
[2023-04-10] MEDS: Chlorothiazide Sodium 500 MG VIAL IVPUSH (06:50)
[2023-04-10 06:54] LABS: Venous Blood Gas Refer to POC result
--- NOTE | 2023-04-10 07:00 | CA_ITS ---
Transthoracic Echocardiogram Patient (Last, First, Middle): Freedom Schwartz Richard Gender: Male Date of : 1995 Age: 28 Procedure Date: 04/10/2023 Procedure Type: Transthoracic Echocardiogram Location: ICU Height: 177.8 cm Weight: 103.42 kg BSA: 2.21 m2 Heart Rate: bpm BP: 110 / 60 mmHg Recycle Worker: Referring MD: Case TARANGO Symptoms: nstemi Study Quality: Adequate ECG Rhythm: Sinus bradycardia Conclusions: - The left ventricular systolic function is normal. The visually estimated ejection fraction is between 55-60%. - The basal inferior segment is akinetic. - Mildly increased right ventricular cavity size. - No obvious valvular pathology seen on this study. Findings Procedure Information Contrast agent, definity, is being given per protocol without apparent complications. Left Ventricle Normal left ventricular cavity size. There is mildly increased left ventricular wall thickness. The left ventricular systolic function is normal. The visually estimated ejection fraction is between 55-60%. There is evidence of regional wall motion abnormalities. Diastolic function is normal for age. Wall Motion Rest Echo Findings The basal inferior segment is akinetic. Right Ventricle Mildly increased right ventricular cavity size. There is normal right ventricular systolic function. Atria Both atria are normal in size. Aortic Valve There is a normal trileaflet aortic valve. There is no aortic valve stenosis. There is trace (trivial) aortic valve regurgitation. Mitral Valve The mitral valve appears normal. There is no mitral valve regurgitation. There is no mitral valve stenosis. Pulmonic Valve The pulmonic valve is likely normal. Tricuspid Valve Normal tricuspid valve structure. There is trace tricuspid valve regurgitation. There is no evidence of pulmonary hypertension. Great Vessels The asc aorta is normal in size. Venous The inferior vena cava is dilated and does not collapse with inspiration. There is evidence of a dilated coronary sinus. (intubated). Pericardium/Pleural There is no evidence of pericardial effusion. Prior Study Comparison No prior study available for comparison. Recommendations, Care & Conclusions No obvious valvular pathology seen on this study. Measurements 2D Linear Measurements IVSd: 1.16 0.6-0.9/0.6-1.0 cm LVIDd: 5.13 3.9-5.3/4.2-5.9 cm LVIDd Index: 2.32 2.4-3.2/2.2-3.1 cm/m2 LVIDs: 3.56 2.0-3.6 cm LVPWd: 1.15 0.7-1.1 cm Ao Root: 3.20 2.1-3.5 cm LA Diam: 3.30 2.7-3.8/3.0-4.0 cm LAIDs Index: 1.49 1.5-2.3 cm/m2 LV Mass: 287.90 67-162/88-224 g LV Mass Index: 130.27 43-95/49-115 g/m2 LVOT Diam: 2.40 3.0+(-)1.3 cm 2D Systolic Function EF 4C: 73.80 >55% EF 2C: 54.50 >55% EF BiP: 64.20 >55% Mitral Valve MV Pk E: 0.73 MV PK A: 0.59 MV Decel Time: 327.00 E/A: 1.20 E'Lateral: 13.20 E'Medial: 9.03 E/E' Med: 8.10 E/E' Lat: 5.50 PHT: 96.00 MVA PHT: 2.29 Decel Rhea: 2.22 Aortic Valve AoV Pk Alex: 1.43 AoV Mn Alex: 0.90 AoV VTI: 0.28 AoV Pk Grad: 8.00 Aov Mn Grad: 4.00 LUCINA Cont.VTI: 3.04 LVOT LVOT Pk Alex: 1.06 LVOT Mn Alex: 0.69 LVOT VTI: 0.19 LVOT Pk Grad: 4.00 LVOT Mn Grad: 2.00 LVOT Diam: 2.40 LVOT Area: 4.52 Diastolic Function MV Pk E: 0.73 MV Pk A: 0.59 E/A: 1.20 E'Medial: 9.03 E/E' Med: 8.10 E' Laterial: 13.20 E/E' Lat: 5.50 Tricuspid Valve TR Pk Alex: 2.06 TR Pk Grad: 17.00 RA Press: 15.00 RVSP: 32.00 Great Vessels Aorta Ao Root-2D: 3.20 2.0-3.7 cm Ao Asc: 3.00 2.1-3.4 cm Pulmonary Valve PV Pk Alex: 1.01 Peak PV Grad: 4.00 Updated in Other Vendor System with Status of Final Umang Bobo MD electronically signed on 04/10/2023 12:41:45 PM with status of Final
[2023-04-10 07:29] LABS: PTT Heparin Drip 52.6 SEC (53-77.9)
[2023-04-10] MEDS: Albumin Human 25 % 100 ML IV ×2 (08:09→09:25)
[2023-04-10] MEDS: Famotidine/PF 20 MG/2 ML VIAL IVPUSH (08:12)
[2023-04-10] MEDS: Chlorhexidine Gluc Oral Rinse 15 ML MOUTHWASH BUCCAL ×3 (08:12→21:14)
[2023-04-10] MEDS: Potassium Phosphate/NS 15 MMOL/250 ML PLAST..BAG 62.5 MMOL IV ×2 (08:19→12:44)
--- NOTE | 2023-04-10 09:12 | MHC.CLN ---
F/U PT REMAINS INTUBATED AND SEDATED IF TF NEEDED; RECOMMEND PROMOTE AT MAX GOAL RATE 65ML/HR WITH 240ML FWF Q 8 HRS TO PROVIDE 1560KCALS (2100KCALS WITH SEDATION; 25KCALS/KG), 97.5G PROTEIN (1.1G/KG), 2029ML TOTAL FLUID FROM FORMULA AND FLUSHES (24ML/KG) MONITOR TOLERANCE, RESIDUALS AND LYTES
--- NOTE | 2023-04-10 09:31 | MHC.CM.PN ---
Pt continues care in ICU: intubated and unable to participate in CM assessment: Received [facility] fax indicating pt has a legal guardian named Manuel Newsome at [phone]. Included in the guardian forms is a Blane's order. Per phone conversation w/Manuel, pt resides in an independent apt affiliated with [facility]. He has a psychiatrist, Dr. Domínguez whom he last saw 02/17/23. Clinical update given to Manuel. Call placed to [facility] / pt's program RN, Kaela at [phone]. Kaela states pt has refused his [place] ordered Invega x 4 months as well as Zoloft d/t side effects but is compliant with Zyprexa as he has to present to [facility] building(across from his apt) each evening for dosing. Clinical update given to Kaela. Kaela states pt has been decompensating for several months with worsening behaviors and presentation. At this time, pt's d/c plan is unknown and will depend on medical stability and continuation w/[facility] program. He will need to be seen by psych for ? restart on [place] issued medications and/or other medications w/less side effects as well as to ensure safety/stability. CM to keep guardian and cobol programmer updated.
[2023-04-10 11:13] LABS: Hematocrit 28.7 % (42.0-52.0); Hemoglobin 9.8 g/dl (14.0-18.0)
--- NOTE | 2023-04-10 12:13 | PM.CCPN ---
Subjective Subjective Date of Service: 04/10/23 Interval History: 28-year-old gentleman with underlying history of schizophrenia alcohol use, marijuana use admitted on 04/08/2023 after he was noted to be unresponsive by his girlfriend for unclear amount of time with full min at the mouse. Patient was transported by EMS to emergency room where he was intubated for hypoxia and respiratory distress. On further evaluation patient with imaging finding of aspiration and left pneumothorax. Initial left mid axillary chest tube placed in emergency room with persistence of pneumothorax and questionable subdiaphragmatic placement. Chest tube removed and replaced with left midclavicular in 3rd intercostal space with air evacuation and improvement in pneumothorax. Patient also noted to have acute kidney injury and rhabdomyolysis and started on IV fluid hydration. He underwent right gluteal fasciotomy with significant improvement in his CPK and renal function. Overnight with episodes of poor ventilator synchrony requiring bagging 0. , also noted to have rising troponin, No ST changes, started on heparin drip. Today continues with poor arousal with sedation vacation. Critical Care Time (minutes): 60 Physical Exam Vital Signs: Vital Signs: Last Vital Signs Temp 100.9 F H 04/10/23 12:00 Pulse 65 04/10/23 12:00 Resp 15 04/10/23 12:00 BP 124/55 L 04/10/23 12:00 Pulse Ox 95 04/10/23 12:00 O2 Del Method Mechanical Ventil ation 04/10/23 12:00 O2 Flow Rate 18 04/08/23 09:15 FiO2 30 04/10/23 12:00 BMI result Body Mass Index 32.8 Const: General: no acute distress and other ( sedated on the vent, poor arousal with sedation vacation) Eyes: Sclerae: sclerae normal EOM: EOMs intact bilaterally Neck: Neck: Yes no lymphadenopathy, Yes trachea midline and Yes supple Resp: Auscultation: crackles ( mild bilateral) Cardio: Rate: regular rate Rhythm: regular rhythm Heart sounds: no gallops, no murmurs and no rubs GI: Palpation (GI): Soft to palpation and Other GI palpation findings present ( Nontender) Auscultation: normal bowel sounds Extrem: General: No clubbing, No cyanosis and Yes edema ( 1+ bilateral) Objective Data Labs 04/10/23 11:07 04/10/23 05:18 Labs: Laboratory Results - last 24 hr 04/09/23 04/09/23 04/09/23 21:51 21:51 21:51 WBC 7.9 RBC 3.45 L Hgb 10.4 L Hct 30.6 L MCV 88.7 MCH 30.1 MCHC 34.0 RDW 12.4 Plt Count 121 L MPV 10.1 Immature Gran % (Auto) 0.5 H Neut % (Auto) 85.4 H Lymph % (Auto) 8.2 L [place] % (Auto) 5.1 Eos % (Auto) 0.5 Baso % (Auto) 0.3 Lymph # (Auto) 0.7 L [place] # (Auto) 0.4 Eos # (Auto) 0.0 Baso # (Auto) 0.0 Abs Immat Gran (auto) 0.04 H Absolute Neuts (auto) 6.8 Absolute Nucleated RBC 0.000 Nucleated RBC % (auto) 0.0 aPTT Heparin Protocol VBG pH VBG pCO2 VBG pO2 VBG HCO3 VBG O2 Saturation VBG Base Excess Sodium 141 Potassium 3.7 Chloride 107 Carbon Dioxide 27 Anion Gap 11 L BUN 14 Creatinine 0.76 Estim Creat Clear Calc 176.2 Estimated GFR > 60 Random Glucose 104 Calcium 7.9 L Phosphorus 1.3 L Magnesium 1.9 Total Bilirubin 1.1 H AST 747 H ALT 1170 H Alkaline Phosphatase 51 Troponin I High Sens 3247.4 H* B-Natriuretic Peptide Total Protein 4.7 L Albumin 3.3 L 04/09/23 04/10/23 04/10/23 23:04 05:18 05:18 WBC 7.9 RBC 2.99 L Hgb 9.0 L Hct 27.0 L MCV 90.3 MCH 30.1 MCHC 33.3 RDW 12.2 Plt Count 116 L MPV 10.8 Immature Gran % (Auto) 0.4 Neut % (Auto) 78.0 H Lymph % (Auto) 14.1 L [place] % (Auto) 5.2 Eos % (Auto) 1.9 Baso % (Auto) 0.4 Lymph # (Auto) 1.1 L [place] # (Auto) 0.4 Eos # (Auto) 0.2 Baso # (Auto) 0.0 Abs Immat Gran (auto) 0.03 Absolute Neuts (auto) 6.2 Absolute Nucleated RBC 0.000 Nucleated RBC % (auto) 0.0 aPTT Heparin Protocol 28.5 L VBG pH VBG pCO2 VBG pO2 VBG HCO3 VBG O2 Saturation VBG Base Excess Sodium 141 Potassium 3.7 Chloride 109 H Carbon Dioxide 24 Anion Gap 12 BUN 13 Creatinine 0.69 Estim Creat Clear Calc 195.6 Estimated GFR > 60 Random Glucose 85 Calcium 7.6 L Phosphorus 1.3 L Magnesium 2.1 Total Bilirubin 1.2 H AST 684 H ALT 1158 H Alkaline Phosphatase 47 Troponin I High Sens B-Natriuretic Peptide Total Protein 4.1 L Albumin 2.8 L 04/10/23 04/10/23 04/10/23 05:18 05:18 05:22 WBC RBC Hgb Hct MCV MCH MCHC RDW Plt Count MPV Immature Gran % (Auto) Neut % (Auto) Lymph % (Auto) [place] % (Auto) Eos % (Auto) Baso % (Auto) Lymph # (Auto) [place] # (Auto) Eos # (Auto) Baso # (Auto) Abs Immat Gran (auto) Absolute Neuts (auto) Absolute Nucleated RBC Nucleated RBC % (auto) aPTT Heparin Protocol VBG pH 7.52 H VBG pCO2 37 VBG pO2 42 VBG HCO3 30 H VBG O2 Saturation 76.0 VBG Base Excess 7.6 Sodium Potassium Chloride Carbon Dioxide Anion Gap BUN Creatinine Estim Creat Clear Calc Estimated GFR Random Glucose Calcium Phosphorus Magnesium Total Bilirubin AST ALT Alkaline Phosphatase Troponin I High Sens 2665.0 H* B-Natriuretic Peptide 87 Total Protein Albumin 04/10/23 04/10/23 07:12 11:07 WBC RBC Hgb 9.8 L Hct 28.7 L MCV MCH MCHC RDW Plt Count MPV Immature Gran % (Auto) Neut % (Auto) Lymph % (Auto) [place] % (Auto) Eos % (Auto) Baso % (Auto) Lymph # (Auto) [place] # (Auto) Eos # (Auto) Baso # (Auto) Abs Immat Gran (auto) Absolute Neuts (auto) Absolute Nucleated RBC Nucleated RBC % (auto) aPTT Heparin Protocol 52.6 L D VBG pH VBG pCO2 VBG pO2 VBG HCO3 VBG O2 Saturation VBG Base Excess Sodium Potassium Chloride Carbon Dioxide Anion Gap BUN Creatinine Estim Creat Clear Calc Estimated GFR Random Glucose Calcium Phosphorus Magnesium Total Bilirubin AST ALT Alkaline Phosphatase Troponin I High Sens B-Natriuretic Peptide Total Protein Albumin Microbiology Microbiology Results: Microbiology 04/08/23 09:07 Blood - Venous Blood Culture - Preliminary No growth after 48 hours. 04/08/23 09:08 Blood - Venous Blood Culture - Preliminary No growth after 48 hours. 04/08/23 Unknown Urine clean catch - Urine lomax top Urine Culture - Final No growth. Progress Note: A&P Assessment and plan (1) Polysubstance abuse: Status: Acute (2) Compartment syndrome of buttock: Status: Acute (3) Rhabdomyolysis: Status: Acute (4) Pneumothorax, left: Status: Acute (5) Aspiration pneumonitis: Status: Acute (6) Acute renal injury: Status: Acute (7) Acute respiratory failure: Status: Acute (8) Schizophrenia: Status: Acute Plan Assessment: 28-year-old gentleman admitted with respiratory failure and alteration of mental status likely secondary to aspiration pneumonitis, further complicated by acute renal failure with rhabdomyolysis, and left-sided pneumothorax Plan: Neuro: poor arousal with sedation vacation today, MRI today. Underlying polysubstance abuse. Cardiac: No acute issues. Pulmonary: acute respiratory, likely secondary to aspiration pneumonitis on the background of binge alcohol consumption / polysubstance abuse. Now requiring ventilatory support, continue to titrate off as tolerated. Left-sided pneumothorax status post chest tube placement with improvement. Renal: Acute renal failure with rhabdomyolysis, resolved after right gluteal fasciotomy. General surgery service care appreciated. Non oliguric. Continue to monitor renal indices, and urine output. Endo: No acute issues. GI: No acute issues. ID: empirically covered with Unasyn for possible aspiration pneumonitis. Heme/Onc: No acute issues. Psych: No acute issues. Miscellaneous: No acute issues. Prophylaxis: heparin, famotidine Diet: tube feeds Critical care time spent: 60 minutes Quality Stroke Does the patient have a stroke diagnosis?: No VTE Prior VTE?: No VTE Risk Level:: Medical - moderate - high VTE Device Contraindication: N/A - Device Ordered VTE Drug Contraindication: N/A - Med Ordered
[2023-04-10] MEDS: fentaNYL citrate/NS 1,000 MCG/100 ML PLAST..BAG 2.5 MCG IVCONT (12:27)
--- NOTE | 2023-04-10 13:09 | P.PNGS_ITS ---
Subjective Subjective Date of Service: 04/10/23 Interval history: Intubated and sedated Physical Exam Vital Signs: Vital Signs: Last Vital Signs Temp 100.4 F 04/10/23 13:00 Pulse 67 04/10/23 13:00 Resp 14 04/10/23 13:00 BP 114/60 04/10/23 13:00 Pulse Ox 92 04/10/23 13:00 O2 Del Method Mechanical Ventil ation 04/10/23 13:00 O2 Flow Rate 18 04/08/23 09:15 FiO2 30 04/10/23 13:00 BMI result Body Mass Index 32.8 Const: General: no acute distress Resp: Other: Breathing comfortably on vent Skin: Other: Dressings removed, serous discharge noted from wound. Underlying muscle is healthy without necrosis. No active bleeding identified. Wound was loosely reapproximated using 0 Prolene sutures in interrupted fashion (see below). Sterile dressings were then applied. Extrem: Other: Mild edema right lower extremity Objective Data Active Medications Aspirin (Aspirin 81 Mg Tab.Chew) 81 mg PO DAILY [facility] Chlorhexidine Gluconate (Chlorhexidine Gluc Oral Rinse 15 Ml Mouthwash) 15 ml BUCCAL TID [facility] Last Admin: 04/10/23 08:12 Dose: 15 ml Documented By: CORNELIO Famotidine (Famotidine/Pf 20 Mg/2 Ml Vial) 20 mg IVPUSH DAILY [facility] Last Admin: 04/10/23 08:12 Dose: 20 mg Documented By: CORNELIO Furosemide (Furosemide 40 Mg/4 Ml Vial) 40 mg IVPUSH BID@0900,1800 [facility]; Protocol Last Admin: 04/10/23 08:14 Dose: 40 mg Documented By: CORNELIO Heparin Sodium (Porcine) (Heparin Sodium,Porcine 5,000 Unit/Ml Vial) 4,100 unit 40 unit/kg (4100 unit) IVPUSH PROTOCOL BOLUS PRN; Protocol PRN Reason: 40 unit/kg - Heparin Protocol Heparin Sodium (Porcine) (Heparin Sodium,Porcine 5,000 Unit/Ml Vial) 8,200 unit 80 unit/kg (8200 unit) IVPUSH PROTOCOL BOLUS PRN; Protocol PRN Reason: 80 unit/kg - Heparin Protocol Propofol (Diprivan) 1,000 mg in 100 mls @ 0 mls/hr IVCONT .Q0M [facility]; Protocol Last Titration: 04/10/23 10:05 Dose: 20 mcg/kg/min, 10.24 mls/hr Documented By: CORNELIO Ampicillin Sodium/Sulbactam (Sodium 3 gm/ Sodium Chloride) 100 mls @ 200 mls/hr IV Q8H [facility] Last Infusion: 04/10/23 06:32 Dose: 0 mls/hr Documented By: CESAR Norepinephrine Bitartrate (Levophed) 8 mg in 250 mls @ 0 mls/hr IV .Q0M [facility]; P rotocol Last Titration: 04/09/23 22:01 Dose: 0 mcg/kg/min, 0 mls/hr Documented By: CORNELIO Fentanyl (Sublimaze/Ns) 1,000 mcg in 100 mls @ 0 mls/hr IVCONT .Q0M [facility]; Protocol Last Admin: 04/10/23 12:27 Dose: 25 mcg/hr, 2.5 mls/hr Documented By: LISA Heparin Sodium/Sodium Chloride (Heparin Sodium,Porcine/1/2ns) 25,000 unit in 250 mls @ 0 mls/hr IVCONT .Q0M [facility]; Protocol Last Titration: 04/10/23 08:32 Dose: 14 units/kg/hr, 14.28 mls/hr Documented By: CORNELIO Co-signed By: LISA Potassium Phosphate (Kphos) 15 mmol in 250 mls @ 62.5 mls/hr IV Q4H [facility] Stop: 04/10/23 14:59 Last Admin: 04/10/23 12:44 Dose: 62.5 mls/hr Documented By: CORNELIO Naloxone HCl (Naloxone Hcl 0.4 Mg/Ml Vial) 0.2 mg IVPUSH Q2M PRN PRN Reason: Excessive sedation or RR < 8 Labs 04/10/23 11:07 04/10/23 05:18 Labs: Laboratory Results - last 24 hr 04/09/23 04/09/23 04/09/23 21:51 21:51 21:51 MCV 88.7 MCH 30.1 MCHC 34.0 RDW 12.4 Plt Count 121 L MPV 10.1 Immature Gran % (Auto) 0.5 H Neut % (Auto) 85.4 H Lymph % (Auto) 8.2 L [place] % (Auto) 5.1 Eos % (Auto) 0.5 Baso % (Auto) 0.3 Lymph # (Auto) 0.7 L [place] # (Auto) 0.4 Eos # (Auto) 0.0 Baso # (Auto) 0.0 Abs Immat Gran (auto) 0.04 H Absolute Neuts (auto) 6.8 Absolute Nucleated RBC 0.000 Nucleated RBC % (auto) 0.0 aPTT Heparin Protocol VBG pH VBG pCO2 VBG pO2 VBG HCO3 VBG O2 Saturation VBG Base Excess Anion Gap 11 L Estim Creat Clear Calc 176.2 Estimated GFR > 60 Random Glucose 104 Calcium 7.9 L Phosphorus 1.3 L Magnesium 1.9 Total Bilirubin 1.1 H AST 747 H ALT 1170 H Alkaline Phosphatase 51 Troponin I High Sens 3247.4 H* B-Natriuretic Peptide Total Protein 4.7 L Albumin 3.3 L 04/09/23 04/10/23 04/10/23 23:04 05:18 05:18 MCV 90.3 MCH 30.1 MCHC 33.3 RDW 12.2 Plt Count 116 L MPV 10.8 Immature Gran % (Auto) 0.4 Neut % (Auto) 78.0 H Lymph % (Auto) 14.1 L [place] % (Auto) 5.2 Eos % (Auto) 1.9 Baso % (Auto) 0.4 Lymph # (Auto) 1.1 L [place] # (Auto) 0.4 Eos # (Auto) 0.2 Baso # (Auto) 0.0 Abs Immat Gran (auto) 0.03 Absolute Neuts (auto) 6.2 Absolute Nucleated RBC 0.000 Nucleated RBC % (auto) 0.0 aPTT Heparin Protocol 28.5 L VBG pH VBG pCO2 VBG pO2 VBG HCO3 VBG O2 Saturation VBG Base Excess Anion Gap 12 Estim Creat Clear Calc 195.6 Estimated GFR > 60 Random Glucose 85 Calcium 7.6 L Phosphorus 1.3 L Magnesium 2.1 Total Bilirubin 1.2 H AST 684 H ALT 1158 H Alkaline Phosphatase 47 Troponin I High Sens B-Natriuretic Peptide Total Protein 4.1 L Albumin 2.8 L 04/10/23 04/10/23 04/10/23 05:18 05:18 05:22 MCV MCH MCHC RDW Plt Count MPV Immature Gran % (Auto) Neut % (Auto) Lymph % (Auto) [place] % (Auto) Eos % (Auto) Baso % (Auto) Lymph # (Auto) [place] # (Auto) Eos # (Auto) Baso # (Auto) Abs Immat Gran (auto) Absolute Neuts (auto) Absolute Nucleated RBC Nucleated RBC % (auto) aPTT Heparin Protocol VBG pH 7.52 H VBG pCO2 37 VBG pO2 42 VBG HCO3 30 H VBG O2 Saturation 76.0 VBG Base Excess 7.6 Anion Gap Estim Creat Clear Calc Estimated GFR Random Glucose Calcium Phosphorus Magnesium Total Bilirubin AST ALT Alkaline Phosphatase Troponin I High Sens 2665.0 H* B-Natriuretic Peptide 87 Total Protein Albumin 04/10/23 07:12 MCV MCH MCHC RDW Plt Count MPV Immature Gran % (Auto) Neut % (Auto) Lymph % (Auto) [place] % (Auto) Eos % (Auto) Baso % (Auto) Lymph # (Auto) [place] # (Auto) Eos # (Auto) Baso # (Auto) Abs Immat Gran (auto) Absolute Neuts (auto) Absolute Nucleated RBC Nucleated RBC % (auto) aPTT Heparin Protocol 52.6 L D VBG pH VBG pCO2 VBG pO2 VBG HCO3 VBG O2 Saturation VBG Base Excess Anion Gap Estim Creat Clear Calc Estimated GFR Random Glucose Calcium Phosphorus Magnesium Total Bilirubin AST ALT Alkaline Phosphatase Troponin I High Sens B-Natriuretic Peptide Total Protein Albumin Microbiology Microbiology Results: Microbiology 04/08/23 09:07 Blood Culture - Preliminary Blood - Venous No growth after 48 hours. 04/08/23 09:08 Blood Culture - Preliminary Blood - Venous No growth after 48 hours. 04/08/23 Unknown Urine Culture - Final Urine clean catch - Urine lomax top No growth. Procedures Date of Service Date of Service: 04/10/23 Procedure Note Procedure Note: Preoperative diagnosis: Open fasciotomy wound right buttock Postoperative diagnosis: Same Procedure: Closure of fasciotomy wound right buttock Surgeon: Dorian Rios MD [employer] Developer: None Anesthesia: None Indications for procedure: 28-year-old male patient found to have rhabdom yolysis possibly due to right gluteal compartment syndrome. Patient previously underwent right gluteal fasciotomy on 04/08/2023. Patient is now on anticoagulation for possible MT. closure of the open wound is planned. Operative findings: Healthy-appearing muscle and subcutaneous tissue. No evide nce of underlying infection. Specimen: None Estimated blood loss: 5 mL Complications: None Procedure details: Informed consent was obtained from the patient's sisters. Patient was placed in a left lateral decubitus position in the ICU room. Skin was prepped with Betadine draped in a sterile fashion. Interrupted 0 Prolene sutures were then used in a mattress formation to reapproximate loosely the skin edges. Several simple sutures were also placed to better approximate the skin edges. Sterile dressings were then applied. The patient remains stable throughout the procedure. Progress Note: A&P Assessment and plan (1) Compartment syndrome of buttock: Status: Acute (2) Rhabdomyolysis: Status: Acute Plan 28-year-old male patient status post right gluteal fasciotomy for compartment syndrome. Wounds were reapproximated today with interrupted Prolene sutures. Will continue to monitor wound. Time Spent With Patient Time: Total time managing care of this patient today ____ minutes. Quality Stroke Does the patient have a stroke diagnosis?: No VTE Prior VTE?: No VTE Risk Level:: Medical - moderate - high VTE Device Contraindication: N/A - Device Ordered VTE Drug Contraindication: N/A - Med Ordered
[2023-04-10 14:17] LABS: Anion Gap 13 (12-20); Blood Urea Nitrogen 13 mg/dL (9-16); Calcium 8.4 mg/dL (8.4-10.2); Carbon Dioxide 30 mmol/L (22-29); Chloride 103 mmol/L (96-108); Creatinine Clr Calc Pharmacy 164.6; Estimated Glomerular Filt Rate > 60; Glucose Random 95 mg/dL (60-115); Magnesium 1.9 mg/dL (1.6-2.6); Phosphorus 2.7 mg/dL (2.7-4.5); Potassium 3.4 mmol/L (3.3-5.1); Sodium 143 mmol/L (135-145)
[2023-04-10] MEDS: propofoL 1,000 MG/100 ML VIAL 10.24 MG IVCONT (15:40)
[2023-04-10] MEDS: Heparin Sodium,Porcine/1/2NS 25,000 UNIT/250 ML IV.SOLN 16.32 UNIT IVCONT (19:37)
[2023-04-10] MEDS: propofoL 1,000 MG/100 ML VIAL 15.35 MG IVCONT (19:38)
[2023-04-10] MEDS: Acetaminophen Oral Liquid 650 MG/20.3 ML SOLUTION PO (21:14)
[2023-04-10 23:15] LABS: PTT Heparin Drip 74.1 SEC (53-77.9)
[2023-04-11] VITALS (35 sets, daily range): BP systolic 98–131; BP diastolic 43–76; PULSE 52–100; RESP 14–28; TEMP 34.9–38.4; O2SAT 91–100; BMI 31.5
--- NOTE | 2023-04-11 | EEG_ITS ---
FINDINGS: Background activity consists of a diffuse frontally accentuated 2 to 3 hertz moderate voltage delta with some faster frequency seen intermittently from the posterior quadrants, usually in the 6 hertz range and briefly getting up to 7 to 8 hertz. Photic stimulation is without activation. Hyperventilation was omitted. IMPRESSION: This is an abnormal EEG due to diffuse background slowing; however, some faster frequencies are also seen. This is consistent with a diffuse encephalopathic process, not very severe. No epileptiform discharges were seen. MD KRYSTAL Slade/MIN / [id number]
[2023-04-11] MEDS: propofoL 1,000 MG/100 ML VIAL 15.35 MG IVCONT ×4 (00:14→20:54)
[2023-04-11] MEDS: Acetaminophen Oral Liquid 650 MG/20.3 ML SOLUTION PO ×3 (03:02→20:53)
[2023-04-11 04:53] LABS: MANUAL DIFF FLAG NO
[2023-04-11 04:56] LABS: Basophils Percent Auto 0.3 % (0-2); Eosinophils Absolute Auto 0.2 X10*3/uL (0.0-0.4); Eosinophils Percent Auto 1.9 % (0-4); Hematocrit 29.9 % (42.0-52.0); Imm Gran Abs Auto 0.03 X10*3/uL (0.00-0.03); Imm Gran Pct Auto 0.3 % (0.0-0.4); Lymphocytes Absolute Auto 1.1 X10*3/uL (1.2-4.9); Lymphocytes Percent Auto 12.7 % (20-40); Mean Corpuscular HGB Conc 33.4 g/dl (31.0-36.0); Mean Corpuscular Hemoglobin 29.9 pg (27.0-33.0); Mean Corpuscular Volume 89.5 fL (80.0-98.0); Mean Platelet Volume 9.7 fL (9.4-12.4); Monocytes Absolute Auto 0.7 X10*3/uL (0.1-1.2); Monocytes Percent Auto 7.8 % (2-11); Neutrophils Absolute Auto 6.8 x10*3/uL (2.0-8.3); Platelet Count 144 X10*3/uL (160-400); Red Blood Count 3.34 X10*6/uL (4.60-5.80); Red Cell Distribution Width 12.3 % (11.0-16.0); White Blood Count 8.8 X10*3/uL (4.8-10.8)
[2023-04-11 04:58] LABS: VBG Base Excess 10.1 mmol/L; VBG HCO3 34 mmol/L (22-26); VBG pCO2 47 mmHg; VBG pH 7.47 (7.32-7.43); VBG pO2 45 mmHg
[2023-04-11 04:59] LABS: Venous Blood Gas Refer to POC result
[2023-04-11 05:09] LABS: PTT Heparin Drip 69.2 SEC (53-77.9)
[2023-04-11] MEDS: Ampicillin Sodium/Sulbactam Na 3 GM in 0.9 % Sodium Chloride 100 ML IV ×3 (05:09→21:01)
[2023-04-11] MEDS: fentaNYL citrate/NS 1,000 MCG/100 ML PLAST..BAG 5 MCG IVCONT ×2 (05:11→23:37)
[2023-04-11 05:21] LABS: Albumin Level 3.7 g/dL (3.5-5.0); Anion Gap 13 (12-20); Blood Urea Nitrogen 16 mg/dL (9-16); Calcium 8.5 mg/dL (8.4-10.2); Carbon Dioxide 30 mmol/L (22-29); Chloride 105 mmol/L (96-108); Creatinine Clr Calc Pharmacy 168.7; Estimated Glomerular Filt Rate > 60; Glucose Random 104 mg/dL (60-115); Magnesium 1.8 mg/dL (1.6-2.6); Phosphorus 2.1 mg/dL (2.7-4.5); Potassium 3.4 mmol/L (3.3-5.1); Sodium 145 mmol/L (135-145)
--- NOTE | 2023-04-11 06:28 | PC.NURSE ---
assumed care 1900, pt remains vent on pressure support. positive cough and gag, PERRLA, SR to SB on tele, heparin drip 2 no changes next ptthd 0600 04/12, Chest tube to -20 suction, no outpt this shift, line checked for kinks, no air leak no crepitus, Tmax 101.1 prn tylenol admin as ordered ice packs applied, OG tube in place. surgical dressing CD&I. Steen putting out pale yellow urine. no bm this shift. bad bath given. turn and repo q2 hours
[2023-04-11] MEDS: Aspirin 81 MG TAB.CHEW PO (07:24)
[2023-04-11] MEDS: Chlorhexidine Gluc Oral Rinse 15 ML MOUTHWASH BUCCAL ×3 (07:24→20:54)
[2023-04-11] MEDS: Furosemide 40 MG/4 ML VIAL IVPUSH ×2 (07:25→17:37)
[2023-04-11] MEDS: Famotidine/PF 20 MG/2 ML VIAL IVPUSH (07:25)
--- NOTE | 2023-04-11 09:01 | P.PNGS_ITS ---
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 Dressings changed and Surgicel applied followed by dry sterile dressings. Objective Data Active Medications Acetaminophen (Acetaminophen Oral Liquid 650 Mg/20.3 Ml Solution) 650 mg PO Q6H PRN PRN Reason: Fever Last Admin: 04/11/23 03:02 Dose: 650 mg Documented By: JARAD Aspirin (Aspirin 81 Mg Tab.Chew) 81 mg PO DAILY [facility] Last Admin: 04/11/23 07:24 Dose: 81 mg Documented By: EDMUND Chlorhexidine Gluconate (Chlorhexidine Gluc Oral Rinse 15 Ml Mouthwash) 15 ml BUCCAL TID [facility] Last Admin: 04/11/23 07:24 Dose: 15 ml Documented By: EDMUND Famotidine (Famotidine/Pf 20 Mg/2 Ml Vial) 20 mg IVPUSH DAILY [facility] Last Admin: 04/11/23 07:25 Dose: 20 mg Documented By: EDMUND Furosemide (Furosemide 40 Mg/4 Ml Vial) 40 mg IVPUSH BID@0900,1800 [facility]; Protocol Last Admin: 04/11/23 07:25 Dose: 40 mg Documented By: EDMUND Heparin Sodium (Porcine) (Heparin Sodium,Porcine 5,000 Unit/Ml Vial) 4,100 unit 40 unit/kg (4100 unit) IVPUSH PROTOCOL BOLUS PRN; Protocol PRN Reason: 40 unit/kg - Heparin Protocol Heparin Sodium (Porcine) (Heparin Sodium,Porcine 5,000 Unit/Ml Vial) 8,200 unit 80 unit/kg (8200 unit) IVPUSH PROTOCOL BOLUS PRN; Protocol PRN Reason: 80 unit/kg - Heparin Protocol Propofol (Diprivan) 1,000 mg in 100 mls @ 0 mls/hr IVCONT .Q0M [facility]; Protocol Last Titration: 04/11/23 08:30 Dose: 10 mcg/kg/min, 5.12 mls/hr Documented By: EDMUND Ampicillin Sodium/Sulbactam (Sodium 3 gm/ Sodium Chloride) 100 mls @ 200 mls/hr IV Q8H [facility] Last Infusion: 04/11/23 05:45 Dose: 0 mls/hr Documented By: JARAD Norepinephrine Bitartrate (Levophed) 8 mg in 250 mls @ 0 mls/hr IV .Q0M [facility]; Protocol Last Titration: 04/11/23 07:22 Dose: 0 mcg/kg/min, 0 mls/hr Documented By: EDMUND Fentanyl (Sublimaze/Ns) 1,000 mcg in 100 mls @ 0 mls/hr IVCONT .Q0M [facility]; Protocol Last Titration: 04/11/23 07:33 Dose: 50 mcg/hr, 5 mls/hr Documented By: EDMUND Heparin Sodium/Sodium Chloride (Heparin Sodium,Porcine/1/2ns) 25,000 unit in 250 mls @ 0 mls/hr IVCONT .Q0M [facility]ON; Protocol Last Titration: 04/11/23 05:35 Dose: 16 units/kg/hr, 16.32 mls/hr Documented By: JARAD Co-signed By: DIMPLE Potassium Phosphate (Kphos) 15 mmol in 250 mls @ 62.5 mls/hr IV ONCE ONE Stop: 04/11/23 12:53 Naloxone HCl (Naloxone Hcl 0.4 Mg/Ml Vial) 0.2 mg IVPUSH Q2M PRN PRN Reason: Excessive sedation or RR < 8 Labs 04/11/23 04:43 04/11/23 04:43 Labs: Laboratory Results - last 24 hr 04/10/23 04/10/23 04/10/23 13:26 14:26 17:50 MCV MCH MCHC RDW Plt Count MPV Immature Gran % (Auto) Neut % (Auto) Lymph % (Auto) [place] % (Auto) Eos % (Auto) Baso % (Auto) Lymph # (Auto) [place] # (Auto) Eos # (Auto) Baso # (Auto) Abs Immat Gran (auto) Absolute Neuts (auto) Absolute Nucleated RBC Nucleated RBC % (auto) aPTT Heparin Protocol 49.0 L 50.0 L VBG pH VBG pCO2 VBG pO2 VBG HCO3 VBG O2 Saturation VBG Base Excess Anion Gap 13 Estim Creat Clear Calc 164.6 Estimated GFR > 60 Random Glucose 95 Calcium 8.4 D Phosphorus 2.7 Magnesium 1.9 Albumin 04/10/23 04/11/23 04/11/23 22:57 04:43 04:43 MCV 89.5 MCH 29.9 MCHC 33.4 RDW 12.3 Plt Count 144 L MPV 9.7 Immature Gran % (Auto) 0.3 Neut % (Auto) 77.0 H Lymph % (Auto) 12.7 L [place] % (Auto) 7.8 Eos % (Auto) 1.9 Baso % (Auto) 0.3 Lymph # (Auto) 1.1 L [place] # (Auto) 0.7 Eos # (Auto) 0.2 Baso # (Auto) 0.0 Abs Immat Gran (auto) 0.03 Absolute Neuts (auto) 6.8 Absolute Nucleated RBC 0.000 Nucleated RBC % (auto) 0.0 aPTT Heparin Protocol 74.1 D VBG pH VBG pCO2 VBG pO2 VBG HCO3 VBG O2 Saturation VBG Base Excess Anion Gap 13 Estim Creat Clear Calc 168.7 Estimated GFR > 60 Random Glucose 104 Calcium 8.5 Phosphorus 2.1 L Magnesium 1.8 Albumin 3.7 04/11/23 04/11/23 04:43 04:49 MCV MCH MCHC RDW Plt Count MPV Immature Gran % (Auto) Neut % (Auto) Lymph % (Auto) [place] % (Auto) Eos % (Auto) Baso % (Auto) Lymph # (Auto) [place] # (Auto) Eos # (Auto) Baso # (Auto) Abs Immat Gran (auto) Absolute Neuts (auto) Absolute Nucleated RBC Nucleated RBC % (auto) aPTT Heparin Protocol 69.2 VBG pH 7.47 H VBG pCO2 47 VBG pO2 45 VBG HCO3 34 H VBG O2 Saturation 76.0 VBG Base Excess 10.1 Anion Gap Estim Creat Clear Calc Estimated GFR Random Glucose Calcium Phosphorus Magnesium Albumin Microbiology Microbiology Results: Microbiology 04/08/23 09:07 Blood Culture - Preliminary Blood - Venous No growth after 48 hours. 04/08/23 09:08 Blood Culture - Preliminary Blood - Venous No growth after 48 hours. Procedures Date of Service Date of Service: 04/11/23 Progress Note: A&P Assessment and plan (1) Compartment syndrome of buttock: Status: Acute (2) Rhabdomyolysis: Status: Acute Plan Dressings changed today. Wounds are clean minimal discharge. Can continue with daily dressing changes with Surgicel if needed. Wounds healing nicely. Time Spent With Patient Time: Total time managing care of this patient today ____ minutes. Quality Stroke Does the patient have a stroke diagnosis?: No VTE Prior VTE?: No VTE Risk Level:: Medical - moderate - high VTE Device Contraindication: N/A - Device Ordered VTE Drug Contraindication: N/A - Med Ordered
[2023-04-11] MEDS: Potassium Phosphate/NS 15 MMOL/250 ML PLAST..BAG 62.5 MMOL IV (09:26)
--- NOTE | 2023-04-11 10:03 | P.PNCC_ITS ---
Subjective Subjective Date of Service: 04/11/23 Interval History: 28-year-old gentleman with underlying history of schizophrenia alcohol use, marijuana use admitted on 04/08/2023 after he was noted to be unresponsive by his girlfriend for unclear amount of time with full min at the mouse. Patient was transported by EMS to emergency room where he was intubated for hypoxia and respiratory distress. On further evaluation patient with imaging finding of aspiration and left pneumothorax. Initial left mid axillary chest tube placed in emergency room with persistence of pneumothorax and questionable subdiaphragmatic placement. Chest tube removed and replaced with left midclavicular in 3rd intercostal space with air evacuation and improvement in pneumothorax. Patient also noted to have acute kidney injury and rhabdomyolysis and started on IV fluid hydration. He underwent right gluteal fasciotomy with significant improvement in his CPK and renal function. However, remains persi stently encephalopathic. MRI on 04/10/2023 with bilateral cerebral anoxic related encephalopathy. no events overnight. Critical Care Time (minutes): 45 Physical Exam Vital Signs: Vital Signs: Last Vital Signs Temp 99.9 F 04/11/23 09:00 Pulse 55 04/11/23 09:00 Resp 22 H 04/11/23 09:00 BP 112/61 04/11/23 09:00 Pulse Ox 95 04/11/23 09:00 O2 Del Method Mechanical Ventil ation 04/11/23 09:00 O2 Flow Rate 18 04/08/23 09:15 FiO2 30 04/11/23 09:00 BMI result Body Mass Index 31.5 Const: General: no acute distress and other (sedated on the vent) Eyes: Sclerae: sclerae normal Pupils: Equal, round and reactive pupils present Neck: Neck: Yes no lymphadenopathy, Yes trachea midline and Yes supple Resp: Auscultation: clear to auscultation bilaterally Cardio: Rate: regular rate Rhythm: regular rhythm Heart sounds: no gallops, no murmurs and no rubs GI: Palpation (GI): Soft to palpation and Other GI palpation findings present ( Nontender) Auscultation: normal bowel sounds Neuro: Cranial nerves: Yes Equal, round and reactive pupils present Extrem: General: Yes no pedal edema, No clubbing and No cyanosis Objective Data Labs 04/11/23 04:43 04/11/23 04:43 Labs: Laboratory Results - last 24 hr 04/10/23 04/10/23 04/10/23 11:07 13:26 14:26 WBC RBC Hgb 9.8 L Hct 28.7 L MCV MCH MCHC RDW Plt Count MPV Immature Gran % (Auto) Neut % (Auto) Lymph % (Auto) [place] % (Auto) Eos % (Auto) Baso % (Auto) Lymph # (Auto) [place] # (Auto) Eos # (Auto) Baso # (Auto) Abs Immat Gran (auto) Absolute Neuts (auto) Absolute Nucleated RBC Nucleated RBC % (auto) aPTT Heparin Protocol 49.0 L VBG pH VBG pCO2 VBG pO2 VBG HCO3 VBG O2 Saturation VBG Base Excess Sodium 143 Potassium 3.4 Chloride 103 Carbon Dioxide 30 H Anion Gap 13 BUN 13 Creatinine 0.82 Estim Creat Clear Calc 164.6 Estimated GFR > 60 Random Glucose 95 Calcium 8.4 D Phosphorus 2.7 Magnesium 1.9 Albumin 04/10/23 04/10/23 04/11/23 17:50 22:57 04:43 WBC 8.8 RBC 3.34 L Hgb 10.0 L Hct 29.9 L MCV 89.5 MCH 29.9 MCHC 33.4 RDW 12.3 Plt Count 144 L MPV 9.7 Immature Gran % (Auto) 0.3 Neut % (Auto) 77.0 H Lymph % (Auto) 12.7 L [place] % (Auto) 7.8 Eos % (Auto) 1.9 Baso % (Auto) 0.3 Lymph # (Auto) 1.1 L [place] # (Auto) 0.7 Eos # (Auto) 0.2 Baso # (Auto) 0.0 Abs Immat Gran (auto) 0.03 Absolute Neuts (auto) 6.8 Absolute Nucleated RBC 0.000 Nucleated RBC % (auto) 0.0 aPTT Heparin Protocol 50.0 L 74.1 D VBG pH VBG pCO2 VBG pO2 VBG HCO3 VBG O2 Saturation VBG Base Excess Sodium Potassium Chloride Carbon Dioxide Anion Gap BUN Creatinine Estim Creat Clear Calc Estimated GFR Random Glucose Calcium Phosphorus Magnesium Albumin 04/11/23 04/11/23 04/11/23 04:43 04:43 04:49 WBC RBC Hgb Hct MCV MCH MCHC RDW Plt Count MPV Immature Gran % (Auto) Neut % (Auto) Lymph % (Auto) [place] % (Auto) Eos % (Auto) Baso % (Auto) Lymph # (Auto) [place] # (Auto) Eos # (Auto) Baso # (Auto) Abs Immat Gran (auto) Absolute Neuts (auto) Absolute Nucleated RBC Nucleated RBC % (auto) aPTT Heparin Protocol 69.2 VBG pH 7.47 H VBG pCO2 47 VBG pO2 45 VBG HCO3 34 H VBG O2 Saturation 76.0 VBG Base Excess 10.1 Sodium 145 Potassium 3.4 Chloride 105 Carbon Dioxide 30 H Anion Gap 13 BUN 16 Creatinine 0.80 Estim Creat Clear Calc 168.7 Estimated GFR > 60 Random Glucose 104 Calcium 8.5 Phosphorus 2.1 L Magnesium 1.8 Albumin 3.7 Microbiology Microbiology Results: Microbiology 04/08/23 09:07 Blood - Venous Blood Culture - Preliminary No growth after 48 hours. 04/08/23 09:08 Blood - Venous Blood Culture - Preliminary No growth after 48 hours. 04/08/23 Unknown Urine clean catch - Urine lomax top Urine Culture - Final No growth. Progress Note: A&P Assessment and plan (1) Anoxic encephalopathy: Status: Acute (2) Polysubstance abuse: Status: Acute (3) Pneumothorax, left: Status: Acute (4) Aspiration pneumonitis: Status: Acute Plan Assessment: 28-year-old gentleman admitted with respiratory failure and alteration of mental status likely secondary to aspiration pneumonitis, further complicated by acute renal failure with rhabdomyolysis, and left-sided pneumothorax Plan: Neuro: poor arousal with sedation vacation, MRI on 04/10/2023 with bilateral cerebral anoxic related findings. Likely underlying anoxic encephalopathy. Neurology evaluation requested. Underlying polysubstance abuse. Cardiac: No acute issues. Pulmonary: acute respiratory, likely secondary to aspiration pneumonitis on the background of binge alcohol consumption / polysubstance abuse. Now requiring ventilatory support, continue to titrate off as tolerated. Left-sided pneumothorax status post chest tube placement with improvement. Renal: Acute renal failure with rhabdomyolysis, resolved after right gluteal fasciotomy. General surgery service care appreciated. Non oliguric. Continue to monitor renal indices, and urine output. Endo: No acute issues. GI: No acute issues. ID: empirically covered with Unasyn for possible aspiration pneumonitis. Heme/Onc: No acute issues. Psych: No acute issues. Miscellaneous: No acute issues. Prophylaxis: heparin, famotidine Diet: tube feeds Critical care time spent: 45 minutes Quality Stroke Does the patient have a stroke diagnosis?: No VTE Prior VTE?: No VTE Risk Level:: Medical - moderate - high VTE Device Contraindication: N/A - Device Ordered VTE Drug Contraindication: N/A - Med Ordered
[2023-04-11] MEDS: propofoL 1,000 MG/100 ML VIAL 5.12 MG IVCONT (10:18)
[2023-04-11] MEDS: Heparin Sodium,Porcine/1/2NS 25,000 UNIT/250 ML IV.SOLN 16.32 UNIT IVCONT ×2 (10:20→23:39)
[2023-04-11] MEDS: Lactulose 20 GM/30 ML SOLUTION 30 GM PO ×2 (11:38→20:54)
--- NOTE | 2023-04-11 18:15 | PC.NURSE ---
Assumed care of patient 07:00 Patient has strong cough and gag, PERRLA. 10:00 surgical MD inspected pt sx site to right buttocks, edges well approximated, sutures in place. MD changed dsg by placing surgicel over incision, gauze and abd pad with tape. 10:30 sponge bath with soap provided for patient, patient face shaved, shampoo cap and hair combing provided. 11:00 rectal tube placed to facilitate wound healing to right buttocks. No BM since admission, MD notified. Lactulose given as ordered. Patient started on tube feeds as ordered Glucerna @20 ml/hr 13:00 patient had intermittent coughing, vent asynchrony. Increased sedation required with propofol gtt. RT at beside with nurse. 16:00 tube tamer / ET tube securement device changed by RT with RN PRN tylenol given for temperature 100.2F, ice packs applied to armpits and core. new dsg applied to rihgt heel blister, stage II to coccyx, chest tube site left upper chest minimal drainage to chest tube this shift, MD aware. 10ml serosanguineous in morning, 10ml serous in afternoon. Prevlon system utilized, repositioned Q2H, mouth care Q2H, high fall precautions in place. Plan for EEG and neurology consult as ordered, communicated to family listed in EMR.
[2023-04-12] VITALS (33 sets, daily range): BP systolic 110–143; BP diastolic 57–90; PULSE 52–96; RESP 14–24; TEMP 35–38.2; O2SAT 91–96; BMI 30.6
[2023-04-12] MEDS: propofoL 1,000 MG/100 ML VIAL 15.35 MG IVCONT ×4 (03:06→20:48)
[2023-04-12] MEDS: Acetaminophen Oral Liquid 650 MG/20.3 ML SOLUTION PO ×3 (03:06→21:27)
--- NOTE | 2023-04-12 04:41 | PC.NURSE ---
Case TARANGO notified of low urine output, discussed dietary note/recs for [facility]. PA verbal orders for free water flushes 200ml q.6hours.
[2023-04-12 05:28] LABS: VBG Base Excess 8.5 mmol/L; VBG HCO3 33 mmol/L (22-26); VBG pCO2 45 mmHg; VBG pH 7.46 (7.32-7.43); VBG pO2 48 mmHg
[2023-04-12 05:31] LABS: Venous Blood Gas Refer to POC result
[2023-04-12 05:44] LABS: MANUAL DIFF FLAG NO
[2023-04-12 05:46] LABS: Basophils Percent Auto 0.2 % (0-2); Eosinophils Absolute Auto 0.3 X10*3/uL (0.0-0.4); Eosinophils Percent Auto 3.3 % (0-4); Hematocrit 31.8 % (42.0-52.0); Hemoglobin 10.6 g/dl (14.0-18.0); Imm Gran Abs Auto 0.05 X10*3/uL (0.00-0.03); Imm Gran Pct Auto 0.6 % (0.0-0.4); Lymphocytes Absolute Auto 0.9 X10*3/uL (1.2-4.9); Lymphocytes Percent Auto 10.6 % (20-40); Mean Corpuscular HGB Conc 33.3 g/dl (31.0-36.0); Mean Corpuscular Hemoglobin 29.9 pg (27.0-33.0); Mean Corpuscular Volume 89.6 fL (80.0-98.0); Mean Platelet Volume 9.7 fL (9.4-12.4); Monocytes Absolute Auto 0.8 X10*3/uL (0.1-1.2); Monocytes Percent Auto 10.1 % (2-11); Neutrophils Absolute Auto 6.2 x10*3/uL (2.0-8.3); Neutrophils Percent Auto 75.2 % (45-73); Platelet Count 156 X10*3/uL (160-400); Red Blood Count 3.55 X10*6/uL (4.60-5.80); Red Cell Distribution Width 12.3 % (11.0-16.0); White Blood Count 8.3 X10*3/uL (4.8-10.8)
[2023-04-12 06:02] LABS: Albumin Level 3.7 g/dL (3.5-5.0); Anion Gap 13 (12-20); Blood Urea Nitrogen 19 mg/dL (9-16); Carbon Dioxide 30 mmol/L (22-29); Chloride 105 mmol/L (96-108); Creatinine Clr Calc Pharmacy 159.4; Estimated Glomerular Filt Rate > 60; Glucose Random 117 mg/dL (60-115); Phosphorus 3.1 mg/dL (2.7-4.5); Potassium 3.3 mmol/L (3.3-5.1); Sodium 145 mmol/L (135-145)
[2023-04-12] MEDS: Ampicillin Sodium/Sulbactam Na 3 GM in 0.9 % Sodium Chloride 100 ML IV ×3 (06:11→21:35)
[2023-04-12] MEDS: Chlorhexidine Gluc Oral Rinse 15 ML MOUTHWASH BUCCAL ×3 (07:19→19:51)
[2023-04-12] MEDS: Aspirin 81 MG TAB.CHEW PO (07:19)
[2023-04-12] MEDS: Famotidine/PF 20 MG/2 ML VIAL IVPUSH (07:52)
[2023-04-12] MEDS: Furosemide 40 MG/4 ML VIAL IVPUSH ×2 (07:52→17:21)
--- NOTE | 2023-04-12 09:57 | P.PNCC_ITS ---
Subjective Subjective Date of Service: 04/12/23 Interval History: 28-year-old gentleman with underlying history of schizophrenia alcohol use, marijuana use admitted on 04/08/2023 after he was noted to be unresponsive by his girlfriend for unclear amount of time with full min at the mouse. Patient was transported by EMS to emergency room where he was intubated for hypoxia and respiratory distress. On further evaluation patient with imaging finding of aspiration and left pneumothorax. Initial left mid axillary chest tube placed in emergency room with persistence of pneumothorax and questionable subdiaphragmatic placement. Chest tube removed and replaced with left midclavicular in 3rd intercostal space with air evacuation and improvement in pneumothorax. Patient also noted to have acute kidney injury and rhabdomyolysis and started on IV fluid hydration. He underwent right gluteal fasciotomy with significant improvement in his CPK and renal function. However, remains persi stently encephalopathic. MRI on 04/10/2023 with bilateral cerebral anoxic related encephalopathy. Neurology evaluation is pending. No events overnight. Critical Care Time (minutes): 45 Physical Exam Vital Signs: Vital Signs: Last Vital Signs Temp 99.9 F 04/12/23 09:00 Pulse 64 04/12/23 09:00 Resp 16 04/12/23 09:00 BP 117/67 04/12/23 09:00 Pulse Ox 95 04/12/23 09:00 O2 Del Method Venturi Mask 04/12/23 09:00 O2 Flow Rate 18 04/08/23 09:15 FiO2 30 04/12/23 07:59 BMI result Body Mass Index 30.6 Const: General: no acute distress and other ( Sedated on the vent) Eyes: Sclerae: sclerae normal EOM: EOMs intact bilaterally Neck: Neck: Yes no lymphadenopathy, Yes trachea midline and Yes supple Resp: Auscultation: clear to auscultation bilaterally Cardio: Rate: regular rate Rhythm: regular rhythm Heart sounds: no gallops, no murmurs and no rubs GI: Palpation (GI): Soft to palpation and Other GI palpation findings present ( Nontender) Auscultation: normal bowel sounds Extrem: General: Yes no pedal edema, No clubbing and No cyanosis Objective Data Labs 04/12/23 05:20 04/12/23 05:20 Labs: Laboratory Results - last 24 hr 04/12/23 04/12/23 04/12/23 05:19 05:20 05:20 WBC 8.3 RBC 3.55 L Hgb 10.6 L Hct 31.8 L MCV 89.6 MCH 29.9 MCHC 33.3 RDW 12.3 Plt Count 156 L MPV 9.7 Immature Gran % (Auto) 0.6 H Neut % (Auto) 75.2 H Lymph % (Auto) 10.6 L [place] % (Auto) 10.1 Eos % (Auto) 3.3 Baso % (Auto) 0.2 Lymph # (Auto) 0.9 L [place] # (Auto) 0.8 Eos # (Auto) 0.3 Baso # (Auto) 0.0 Abs Immat Gran (auto) 0.05 H Absolute Neuts (auto) 6.2 Absolute Nucleated RBC 0.000 Nucleated RBC % (auto) 0.0 aPTT Heparin Protocol 57.0 VBG pH 7.46 H VBG pCO2 45 VBG pO2 48 VBG HCO3 33 H VBG O2 Saturation 79.0 VBG Base Excess 8.5 Sodium Potassium Chloride Carbon Dioxide Anion Gap BUN Creatinine Estim Creat Clear Calc Estimated GFR Random Glucose Calcium Phosphorus Magnesium Albumin 04/12/23 05:20 WBC RBC Hgb Hct MCV MCH MCHC RDW Plt Count MPV Immature Gran % (Auto) Neut % (Auto) Lymph % (Auto) [place] % (Auto) Eos % (Auto) Baso % (Auto) Lymph # (Auto) [place] # (Auto) Eos # (Auto) Baso # (Auto) Abs Immat Gran (auto) Absolute Neuts (auto) Absolute Nucleated RBC Nucleated RBC % (auto) aPTT Heparin Protocol VBG pH VBG pCO2 VBG pO2 VBG HCO3 VBG O2 Saturation VBG Base Excess Sodium 145 Potassium 3.3 Chloride 105 Carbon Dioxide 30 H Anion Gap 13 BUN 19 H Creatinine 0.82 Estim Creat Clear Calc 159.4 Estimated GFR > 60 Random Glucose 117 H Calcium 9.0 Phosphorus 3.1 Magnesium 2.0 Albumin 3.7 Microbiology Microbiology Results: Microbiology 04/08/23 09:07 Blood - Venous Blood Culture - Preliminary No growth after 48 hours. 04/08/23 09:08 Blood - Venous Blood Culture - Preliminary No growth after 48 hours. 04/08/23 Unknown Urine clean catch - Urine lomax top Urine Culture - Final No growth. Progress Note: A&P Assessment and plan (1) Anoxic encephalopathy: Status: Acute (2) Polysubstance abuse: Status: Acute (3) Pneumothorax: Status: Acute (4) Aspiration pneumonitis: Status: Acute (5) Acute respiratory failure: Status: Acute (6) Schizophrenia: Status: Acute Plan Assessment: 28-year-old gentleman admitted with respiratory failure and alteration of mental status likely secondary to aspiration pneumonitis, further complicated by acute renal failure with rhabdomyolysis, and left-sided pneumothorax Plan: Neuro: poor arousal with sedation vacation, MRI on 04/10/2023 with bilateral cerebral anoxic related findings. Likely underlying anoxic encephalopathy. Neurology evaluation requested. Underlying polysubstance abuse. Cardiac: No acute issues. Pulmonary: acute respiratory, likely secondary to aspiration pneumonitis on the background of binge alcohol consumption / polysubstance abuse. Now requiring ventilatory support, continue to titrate off as tolerated. Left-sided pneumothorax status post chest tube placement with improvement. Renal: Acute renal failure with rhabdomyolysis, resolved after right gluteal fasciotomy. General surgery service care appreciated. Non oliguric. Continue to monitor renal indices, and urine output. Endo: No acute issues. GI: No acute issues. ID: empirically covered with Unasyn for possible aspiration pneumonitis. Heme/Onc: No acute issues. Psych: No acute issues. Miscellaneous: No acute issues. Prophylaxis: heparin, famotidine Diet: tube feeds Critical care time spent: 45 minutes Quality Stroke Does the patient have a stroke diagnosis?: No VTE Prior VTE?: No VTE Risk Level:: Medical - moderate - high VTE Device Contraindication: N/A - Device Ordered VTE Drug Contraindication: N/A - Med Ordered
[2023-04-12] MEDS: fentaNYL citrate/NS 1,000 MCG/100 ML PLAST..BAG 2.5 MCG IVCONT (20:49)
--- NOTE | 2023-04-12 21:00 | PC.NURSE ---
Addendum entered by Nicky Jimenez RN 04/12/23 21:45: 21:00: Labs resulted and discussed with EMELINA Willoughby, orders for magnesium and potassium repletions given. Original Note: 20:00 hour: Patient had eleven-beat run of vtach. Vitals obtained and stable. EMELINA Willoughby made aware with labs ordered, sent, and pending at this time.
[2023-04-12 21:07] LABS: Phosphorus 3.5 mg/dL (2.7-4.5)
[2023-04-12 21:12] LABS: Anion Gap 16 (12-20); Blood Urea Nitrogen 21 mg/dL (9-16); Calcium 9.4 mg/dL (8.4-10.2); Carbon Dioxide 28 mmol/L (22-29); Chloride 102 mmol/L (96-108); Creatinine Clr Calc Pharmacy 150.2; Estimated Glomerular Filt Rate > 60; Glucose Fasting 118 mg/dL (60-99); Magnesium 1.8 mg/dL (1.6-2.6); Potassium 3.4 mmol/L (3.3-5.1); Sodium 143 mmol/L (135-145)
[2023-04-12] MEDS: Potassium Chloride Packet 20 MEQ PACKET PO (21:28)
[2023-04-12] MEDS: Magnesium Sulfate/D5W 1 GM/100 ML PIGGYBACK IV (21:34)
[2023-04-13] VITALS (29 sets, daily range): BP systolic 104–132; BP diastolic 45–88; PULSE 51–88; RESP 12–30; TEMP 34.8–38.4; O2SAT 91–96; BMI 30.3
[2023-04-13] MEDS: propofoL 1,000 MG/100 ML VIAL 15.35 MG IVCONT ×2 (02:39→08:23)
[2023-04-13] MEDS: Ampicillin Sodium/Sulbactam Na 3 GM in 0.9 % Sodium Chloride 100 ML IV (05:19)
[2023-04-13] MEDS: Acetaminophen Oral Liquid 650 MG/20.3 ML SOLUTION PO ×2 (05:20→19:25)
[2023-04-13 05:24] LABS: VBG Base Excess 10.9 mmol/L; VBG HCO3 35 mmol/L (22-26); VBG pCO2 48 mmHg; VBG pH 7.47 (7.32-7.43); VBG pO2 50 mmHg
[2023-04-13 05:29] LABS: Venous Blood Gas Refer to POC result
[2023-04-13 05:41] LABS: MANUAL DIFF FLAG NO
[2023-04-13 05:45] LABS: Basophils Percent Auto 0.3 % (0-2); Eosinophils Absolute Auto 0.3 X10*3/uL (0.0-0.4); Eosinophils Percent Auto 3.9 % (0-4); Hematocrit 33.9 % (42.0-52.0); Hemoglobin 11.3 g/dl (14.0-18.0); Imm Gran Abs Auto 0.07 X10*3/uL (0.00-0.03); Imm Gran Pct Auto 0.8 % (0.0-0.4); Lymphocytes Absolute Auto 1.3 X10*3/uL (1.2-4.9); Lymphocytes Percent Auto 14.7 % (20-40); Mean Corpuscular HGB Conc 33.3 g/dl (31.0-36.0); Mean Corpuscular Hemoglobin 30.1 pg (27.0-33.0); Mean Corpuscular Volume 90.2 fL (80.0-98.0); Mean Platelet Volume 9.8 fL (9.4-12.4); Monocytes Percent Auto 11.9 % (2-11); Neutrophils Absolute Auto 5.9 x10*3/uL (2.0-8.3); Neutrophils Percent Auto 68.4 % (45-73); Platelet Count 195 X10*3/uL (160-400); Red Blood Count 3.76 X10*6/uL (4.60-5.80); Red Cell Distribution Width 12.3 % (11.0-16.0); White Blood Count 8.7 X10*3/uL (4.8-10.8)
[2023-04-13 06:00] LABS: Albumin Level 3.8 g/dL (3.5-5.0); Anion Gap 15 (12-20); Blood Urea Nitrogen 24 mg/dL (9-16); Calcium 9.2 mg/dL (8.4-10.2); Carbon Dioxide 30 mmol/L (22-29); Chloride 103 mmol/L (96-108); Creatinine Clr Calc Pharmacy 158.6; Estimated Glomerular Filt Rate > 60; Glucose Random 114 mg/dL (60-115); Phosphorus 3.8 mg/dL (2.7-4.5); Potassium 3.5 mmol/L (3.3-5.1); Sodium 144 mmol/L (135-145)
[2023-04-13] MEDS: Potassium Chloride Packet 20 MEQ PACKET 40 MEQ PO (08:01)
[2023-04-13] MEDS: Aspirin 81 MG TAB.CHEW PO (08:04)
[2023-04-13] MEDS: Furosemide 40 MG/4 ML VIAL IVPUSH (08:04)
[2023-04-13] MEDS: Chlorhexidine Gluc Oral Rinse 15 ML MOUTHWASH BUCCAL ×3 (08:04→20:27)
[2023-04-13] MEDS: Lactulose 20 GM/30 ML SOLUTION 30 GM PO (08:04)
[2023-04-13] MEDS: Famotidine/PF 20 MG/2 ML VIAL IVPUSH (08:04)
--- NOTE | 2023-04-13 09:52 | MHC.CLN ---
F/U PT REMAINS INTUBATED AND SEDATED. STAGE II PRESSURE INJURY TO COCCYX. TUBE FEEDING STARTED 04/12. TOLERATING GLUCERNA AT 60 ML PER HOUR. RECOMMEND FORMULA CHANGE TO: PROMOTE AT MAX GOAL RATE 65ML/HR WITH 240ML FWF Q 8 HRS TO PROVIDE 1560KCALS (1965KCALS WITH SEDATION; 24.3KCALS/KG CMW), 97.5G PROTEIN (1.2G/KG CMW), 2029ML TOTAL FLUID FROM FORMULA AND FLUSHES (25ML/KG CMW). MONITOR TOLERANCE, RESIDUALS AND LYTES.
--- NOTE | 2023-04-13 10:11 | P.PNCC_ITS ---
Subjective Subjective Date of Service: 04/13/23 Interval History: 28-year-old gentleman with underlying history of schizophrenia alcohol use, marijuana use admitted on 04/08/2023 after he was noted to be unresponsive by his girlfriend for unclear amount of time with full min at the mouse. Patient was transported by EMS to emergency room where he was intubated for hypoxia and respiratory distress. On further evaluation patient with imaging finding of aspiration and left pneumothorax. Initial left mid axillary chest tube placed in emergency room with persistence of pneumothorax and questionable subdiaphragmatic placement. Chest tube removed and replaced with left midclavicular in 3rd intercostal space with air evacuation and improvement in pneumothorax. Patient also noted to have acute kidney injury and rhabdomyolysis and started on IV fluid hydration. He underwent right gluteal fasciotomy with significant improvement in his CPK and renal function. However, remains persi stently encephalopathic. MRI on 04/10/2023 with bilateral cerebral anoxic related encephalopathy. Neurology evaluation is pending. No events overnight. Critical Care Time (minutes): 45 Physical Exam Vital Signs: Vital Signs: Last Vital Signs Temp 99.9 F 04/13/23 10:00 Pulse 79 04/13/23 10:00 Resp 18 04/13/23 10:00 BP 128/79 04/13/23 10:00 Pulse Ox 91 L 04/13/23 10:00 O2 Del Method Mechanical Ventil ation 04/13/23 10:00 O2 Flow Rate 18 04/08/23 09:15 FiO2 40 04/13/23 10:00 BMI result Body Mass Index 30.3 Const: General: no acute distress Eyes: Sclerae: sclerae normal Pupils: Equal, round and reactive pupils present Neck: Neck: Yes no lymphadenopathy, Yes trachea midline and Yes supple Resp: Auscultation: clear to auscultation bilaterally Cardio: Rate: regular rate Rhythm: regular rhythm Heart sounds: no gallops, no murmurs and no rubs GI: Palpation (GI): Soft to palpation and Other GI palpation findings present ( Nontender) Auscultation: normal bowel sounds Neuro: Cranial nerves: Yes Equal, round and reactive pupils present Extrem: General: Yes no pedal edema, No clubbing and No cyanosis Objective Data Labs 04/13/23 05:20 04/13/23 05:20 Labs: Laboratory Results - last 24 hr 04/12/23 04/12/23 04/12/23 20:47 20:47 20:47 WBC RBC Hgb Hct MCV MCH MCHC RDW Plt Count MPV Immature Gran % (Auto) Neut % (Auto) Lymph % (Auto) [place] % (Auto) Eos % (Auto) Baso % (Auto) Lymph # (Auto) [place] # (Auto) Eos # (Auto) Baso # (Auto) Abs Immat Gran (auto) Absolute Neuts (auto) Absolute Nucleated RBC Nucleated RBC % (auto) VBG pH VBG pCO2 VBG pO2 VBG HCO3 VBG O2 Saturation VBG Base Excess Sodium 143 Potassium 3.4 Chloride 102 Carbon Dioxide 28 Anion Gap 16 BUN 21 H Creatinine 0.87 Estim Creat Clear Calc 150.2 Estimated GFR > 60 Random Glucose Fasting Glucose 118 H Calcium 9.4 Phosphorus 3.5 Magnesium Cancelled 1.8 Albumin 04/13/23 04/13/23 04/13/23 05:14 05:20 05:20 WBC 8.7 RBC 3.76 L Hgb 11.3 L Hct 33.9 L MCV 90.2 MCH 30.1 MCHC 33.3 RDW 12.3 Plt Count 195 MPV 9.8 Immature Gran % (Auto) 0.8 H Neut % (Auto) 68.4 Lymph % (Auto) 14.7 L [place] % (Auto) 11.9 H Eos % (Auto) 3.9 Baso % (Auto) 0.3 Lymph # (Auto) 1.3 [place] # (Auto) 1.0 Eos # (Auto) 0.3 Baso # (Auto) 0.0 Abs Immat Gran (auto) 0.07 H Absolute Neuts (auto) 5.9 Absolute Nucleated RBC 0.000 Nucleated RBC % (auto) 0.0 VBG pH 7.47 H VBG pCO2 48 VBG pO2 50 VBG HCO3 35 H VBG O2 Saturation 80.0 VBG Base Excess 10.9 Sodium 144 Potassium 3.5 Chloride 103 Carbon Dioxide 30 H Anion Gap 15 BUN 24 H Creatinine 0.82 Estim Creat Clear Calc 158.6 Estimated GFR > 60 Random Glucose 114 Fasting Glucose Calcium 9.2 Phosphorus 3.8 Magnesium 2.0 Albumin 3.8 Microbiology Microbiology Results: Microbiology 04/08/23 09:07 Blood - Venous Blood Culture - Preliminary No growth after 48 hours. 04/08/23 09:08 Blood - Venous Blood Culture - Preliminary No growth after 48 hours. 04/08/23 Unknown Urine clean catch - Urine lomax top Urine Culture - Final No growth. Progress Note: A&P Assessment and plan (1) Anoxic encephalopathy: Status: Acute (2) Polysubstance abuse: Status: Acute (3) Pneumothorax, left: Status: Acute (4) Aspiration pneumonitis: Status: Acute (5) Acute respiratory failure: Status: Acute (6) Schizophrenia: Status: Acute Plan Assessment: 28-year-old gentleman admitted with respiratory failure and alteration of mental status likely secondary to aspiration pneumonitis, further complicated by acute renal failure with rhabdomyolysis, and left-sided pneumothorax Plan: Neuro: poor arousal with sedation vacation, MRI on 04/10/2023 with bilateral cerebral anoxic related findings. Likely underlying anoxic encephalopathy. Neurology evaluation requested. Underlying polysubstance abuse. Cardiac: 2D echocardiogram with normal ejection fraction, but wall motion abnormalities, now on aspirin. Pulmonary: acute respiratory, likely secondary to aspiration pneumonitis on the background of binge alcohol consumption / polysubstance abuse. Now requiring ventilatory support, continue to titrate off as tolerated. Left-sided pneumothorax status post chest tube placement with improvement. Renal: Acute renal failure with rhabdomyolysis, resolved after right gluteal fasciotomy. General surgery service care appreciated. Non oliguric. Continue to monitor renal indices, and urine output. Endo: No acute issues. GI: No acute issues. ID: No leukocytosis, fevers resolved, will monitor off antibiotics. Heme/Onc: No acute issues. Psych: No acute issues. Miscellaneous: No acute issues. Prophylaxis: heparin, famotidine Diet: tube feeds Critical care time spent: 45 minutes Quality Stroke Does the patient have a stroke diagnosis?: No VTE Prior VTE?: No VTE Risk Level:: Medical - moderate - high VTE Device Contraindication: N/A - Device Ordered VTE Drug Contraindication: N/A - Med Ordered
[2023-04-13] MEDS: fentaNYL citrate/NS 1,000 MCG/100 ML PLAST..BAG 5 MCG IVCONT (11:08)
[2023-04-13] MEDS: fentaNYL citrate/PF 100 MCG/2 ML VIAL 50 MCG IVPUSH (12:36)
[2023-04-13] MEDS: propofoL 1,000 MG/100 ML VIAL 20.47 MG IVCONT ×3 (13:26→21:58)
[2023-04-13] MEDS: Heparin Sodium,Porcine 5,000 UNIT/ML VIAL 5000 UNIT SUBCUT (20:27)
[2023-04-13] MEDS: fentaNYL citrate/NS 1,000 MCG/100 ML PLAST..BAG 7.5 MCG IVCONT (22:37)
[2023-04-14] VITALS (36 sets, daily range): BP systolic 108–144; BP diastolic 49–85; PULSE 51–119; RESP 10–23; TEMP 34–38.7; O2SAT 90–98
[2023-04-14] MEDS: propofoL 1,000 MG/100 ML VIAL 20.47 MG IVCONT ×3 (01:32→08:40)
[2023-04-14 04:43] LABS: MANUAL DIFF FLAG NO
[2023-04-14 04:46] LABS: Basophils Absolute Auto 0.1 X10*3/uL (0.0-0.2); Basophils Percent Auto 0.4 % (0-2); Eosinophils Absolute Auto 0.2 X10*3/uL (0.0-0.4); Eosinophils Percent Auto 1.9 % (0-4); Hematocrit 38.4 % (42.0-52.0); Hemoglobin 12.9 g/dl (14.0-18.0); Imm Gran Abs Auto 0.15 X10*3/uL (0.00-0.03); Imm Gran Pct Auto 1.2 % (0.0-0.4); Lymphocytes Absolute Auto 1.7 X10*3/uL (1.2-4.9); Lymphocytes Percent Auto 13.8 % (20-40); Mean Corpuscular HGB Conc 33.6 g/dl (31.0-36.0); Mean Corpuscular Hemoglobin 29.9 pg (27.0-33.0); Mean Corpuscular Volume 88.9 fL (80.0-98.0); Mean Platelet Volume 9.6 fL (9.4-12.4); Monocytes Absolute Auto 1.4 X10*3/uL (0.1-1.2); Monocytes Percent Auto 11.1 % (2-11); Neutrophils Absolute Auto 8.9 x10*3/uL (2.0-8.3); Neutrophils Percent Auto 71.6 % (45-73); Platelet Count 243 X10*3/uL (160-400); Red Blood Count 4.32 X10*6/uL (4.60-5.80); Red Cell Distribution Width 12.3 % (11.0-16.0); White Blood Count 12.5 X10*3/uL (4.8-10.8)
[2023-04-14] MEDS: Heparin Sodium,Porcine 5,000 UNIT/ML VIAL 5000 UNIT SUBCUT ×3 (04:49→19:39)
[2023-04-14 04:51] LABS: VBG Base Excess 7.5 mmol/L; VBG HCO3 33 mmol/L (22-26); VBG pCO2 50 mmHg; VBG pH 7.42 (7.32-7.43); VBG pO2 48 mmHg
[2023-04-14 04:54] LABS: Venous Blood Gas Refer to POC result
[2023-04-14 05:05] LABS: Albumin Level 4.2 g/dL (3.5-5.0); Anion Gap 14 (12-20); Blood Urea Nitrogen 30 mg/dL (9-16); Calcium 9.5 mg/dL (8.4-10.2); Carbon Dioxide 30 mmol/L (22-29); Chloride 104 mmol/L (96-108); Creatinine Clr Calc Pharmacy 158.6; Estimated Glomerular Filt Rate > 60; Glucose Random 105 mg/dL (60-115); Magnesium 2.1 mg/dL (1.6-2.6); Phosphorus 4.4 mg/dL (2.7-4.5); Potassium 4.3 mmol/L (3.3-5.1); Sodium 144 mmol/L (135-145)
[2023-04-14] MEDS: Famotidine/PF 20 MG/2 ML VIAL IVPUSH (08:25)
[2023-04-14] MEDS: Aspirin 81 MG TAB.CHEW PO (08:25)
[2023-04-14] MEDS: Chlorhexidine Gluc Oral Rinse 15 ML MOUTHWASH BUCCAL ×3 (08:25→20:01)
--- NOTE | 2023-04-14 09:36 | PM.CCPN ---
Subjective Subjective Date of Service: 04/14/23 Interval History: 28-year-old gentleman with underlying history of schizophrenia alcohol use, marijuana use admitted on 04/08/2023 after he was noted to be unresponsive by his girlfriend for unclear amount of time with full min at the mouse. Patient was transported by EMS to emergency room where he was intubated for hypoxia and respiratory distress. On further evaluation patient with imaging finding of aspiration and left pneumothorax. Initial left mid axillary chest tube placed in emergency room with persistence of pneumothorax and questionable subdiaphragmatic placement. Chest tube removed and replaced with left midclavicular in 3rd intercostal space with air evacuation and improvement in pneumothorax. Patient also noted to have acute kidney injury and rhabdomyolysis and started on IV fluid hydration. He underwent right gluteal fasciotomy with significant improvement in his CPK and renal function. However, remains persistently encephalopathic. MRI on 04/10/2023 with bilateral cerebral anoxic related encephalopathy. Neurology evaluation is pending. No events overnight. Critical Care Time (minutes): 45 Physical Exam Vital Signs: Vital Signs: Last Vital Signs Temp 100.2 F 04/14/23 09:00 Pulse 75 04/14/23 09:00 Resp 23 H 04/14/23 09:00 BP 136/85 04/14/23 09:00 Pulse Ox 96 04/14/23 09:00 O2 Del Method Mechanical Ventil ation 04/14/23 09:00 O2 Flow Rate 18 04/08/23 09:15 FiO2 35 04/14/23 09:00 BMI result Body Mass Index 30.0 Const: General: no acute distress Eyes: Sclerae: sclerae normal Pupils: Equal, round and reactive pupils present Neck: Neck: Yes no lymphadenopathy, Yes trachea midline and Yes supple Resp: Auscultation: clear to auscultation bilaterally Cardio: Rate: regular rate Rhythm: regular rhythm Heart sounds: no gallops, no murmurs and no rubs GI: Palpation (GI): Soft to palpation and Other GI palpation findings present ( Nontender) Auscultation: normal bowel sounds Neuro: Cranial nerves: Yes Equal, round and reactive pupils present Extrem: General: Yes no pedal edema, No clubbing and No cyanosis Objective Data Labs 04/14/23 04:30 04/14/23 04:30 Labs: Laboratory Results - last 24 hr 05/04/14/23 04/14/23 04:30 04:30 04:30 WBC 12.5 H RBC 4.32 L Hgb 12.9 L Hct 38.4 L MCV 88.9 MCH 29.9 MCHC 33.6 RDW 12.3 Plt Count 243 MPV 9.6 Immature Gran % (Auto) 1.2 H Neut % (Auto) 71.6 Lymph % (Auto) 13.8 L [place] % (Auto) 11.1 H Eos % (Auto) 1.9 Baso % (Auto) 0.4 Lymph # (Auto) 1.7 [place] # (Auto) 1.4 H Eos # (Auto) 0.2 Baso # (Auto) 0.1 Abs Immat Gran (auto) 0.15 H Absolute Neuts (auto) 8.9 H Absolute Nucleated RBC 0.000 Nucleated RBC % (auto) 0.0 VBG pH VBG pCO2 VBG pO2 VBG HCO3 VBG O2 Saturation VBG Base Excess Sodium Cancelled 144 Potassium Cancelled 4.3 D Chloride Cancelled 104 Carbon Dioxide Cancelled 30 H Anion Gap Cancelled 14 BUN Cancelled 30 H Creatinine Cancelled 0.82 Estim Creat Clear Calc Cancelled 158.6 Estimated GFR Cancelled > 60 Random Glucose Cancelled 105 Calcium Cancelled 9.5 Phosphorus Cancelled 4.4 Magnesium Cancelled 2.1 Albumin Cancelled 4.2 04/14/23 04:41 WBC RBC Hgb Hct MCV MCH MCHC RDW Plt Count MPV Immature Gran % (Auto) Neut % (Auto) Lymph % (Auto) [place] % (Auto) Eos % (Auto) Baso % (Auto) Lymph # (Auto) [place] # (Auto) Eos # (Auto) Baso # (Auto) Abs Immat Gran (auto) Absolute Neuts (auto) Absolute Nucleated RBC Nucleated RBC % (auto) VBG pH 7.42 VBG pCO2 50 VBG pO2 48 VBG HCO3 33 H VBG O2 Saturation 76.0 VBG Base Excess 7.5 Sodium Potassium Chloride Carbon Dioxide Anion Gap BUN Creatinine Estim Creat Clear Calc Estimated GFR Random Glucose Calcium Phosphorus Magnesium Albumin Microbiology Microbiology Results: Microbiology 04/08/23 09:07 Blood - Venous Blood Culture - Final No growth after 5 days. 04/08/23 09:08 Blood - Venous Blood Culture - Final No growth after 5 days. 04/08/23 Unknown Urine clean catch - Urine lomax top Urine Culture - Final No growth. Progress Note: A&P Assessment and plan (1) Anoxic encephalopathy: Status: Acute (2) Polysubstance abuse: Status: Acute (3) Pneumothorax, left: Status: Acute (4) Aspiration pneumonitis: Status: Acute (5) Acute renal injury: Status: Acute (6) Acute respiratory failure: Status: Acute (7) Schizophrenia: Status: Acute Plan Assessment: 28-year-old gentleman admitted with respiratory failure and alteration of mental status likely secondary to aspiration pneumonitis, further complicated by acute renal failure with rhabdomyolysis, and left-sided pneumothorax Plan: Neuro: poor arousal with sedation vacation, MRI on 04/10/2023 with bilateral cerebral anoxic related findings. Likely underlying anoxic encephalopathy. Neurology evaluation requested. Underlying polysubstance abuse.EEG is pending. Cardiac: 2D echocardiogram with normal ejection fraction, but wall motion abnormalities, now on aspirin. Pulmonary: acute respiratory, likely secondary to aspiration pneumonitis on the background of binge alcohol consumption / polysubstance abuse. Now requiring ventilatory support, continue to titrate off as tolerated. Left-sided pneumothorax status post chest tube placement with improvement. Renal: Acute renal failure with rhabdomyolysis, resolved after right gluteal fasciotomy. General surgery service care appreciated. Non oliguric. Continue to monitor renal indices, and urine output. Endo: No acute issues. GI: No acute issues. ID: No acute issues Heme/Onc: No acute issues. Psych: No acute issues. Miscellaneous: No acute issues. Prophylaxis: heparin, famotidine Diet: tube feeds Critical care time spent: 45 minutes Quality Stroke Does the patient have a stroke diagnosis?: No VTE Prior VTE?: No VTE Risk Level:: Medical - moderate - high VTE Device Contraindication: N/A - Device Ordered VTE Drug Contraindication: N/A - Med Ordered
--- NOTE | 2023-04-14 09:47 | MHC.CLN ---
F/U PT REMAINS INTUBATED AND SEDATED PT TOLERATING PROMOTE AT MAX GOAL RATE 65ML/HR WITH 240ML FWF Q 8 HRS PROVIDES 1560KCALS (2100KCALS WITH SEDATION; 25KCALS/KG CMW), 97.5G PROTEIN (1.1G/KG CMW), 2029ML TOTAL FLUID FROM FORMULA AND FLUSHES (24ML/KG CMW) CONTINUE TO MONITOR TOLERANCE, RESIDUALS AND LYTES
--- NOTE | 2023-04-14 10:13 | MHC.CM.PN ---
Pt continues on ventilatory support - MRI from 04/10 showed anoxic injury: pt continues to be non reactive/responsive. Plan for today is EEG and neuro consult to determine if pt will be in a permanent impaired state with no chance of recovery. Call placed to pt's legal guardian, Manuel Lucasrogelio : message left requesting a callback for additional inquiry into the capacity of his appointment: i.e. does he have the authority to make pt [employer] or will he need to petition the court. Instructed ICU care team to divert all family calls to pt's guardian should they ask for information. CM to follow.
[2023-04-14] MEDS: fentaNYL citrate/NS 1,000 MCG/100 ML PLAST..BAG 7.5 MCG IVCONT ×2 (11:56→23:39)
--- NOTE | 2023-04-14 11:58 | P.CDIM_ITS ---
PROVIDER RESPONSE TEXT: To clarify, the appropriate diagnosis supported by the clinical indicators: Pressure (decubitus) ulcer/injury Stage 2 coccyx QUERY TEXT: PHYSICIAN'S DOCUMENTATION REQUEST Date of Query: 04/14/2023 10:10 AM EDT Patient Name: Freedom Schwartz Admit Date: 04/08/2023 Dear Chaim Mccullough, A review of the medical record indicates additional documentation may be needed. Please review below and update the documentation accordingly. Clinical Indicators: Wound assessment notes - Pressure injury/wound Stage 2 coccyx Barrier cream, foam dressing Based on the above, could you please provide further information regarding the ulcer/wound: Pressure (decubitus) ulcer/injury Stage 2 coccyx Other Unable to determine Other (explain)Clinically unable to determine (explain)Thank you, Teetee Suazo, CCS, CDIS Use of terms such as suspected, likely, concern for, or probable (associated with a specific diagnosi s that is being evaluated, monitored, or treated as if it exists) are acceptable and can be coded in the inpatient se tting, when documented at the time of discharge. Please use your independent medical judgment in providing your response. THIS QUERY IS PART OF THE PERMANENT MEDICAL RECORD
--- NOTE | 2023-04-14 13:54 | P.CNNE_ITS ---
History of Present Illness Data of Consult Service Date: 04/14/23 Primary Care Provider: Unknown Physician HPI Reason for consult: Unresponsiveness with drug overdose 04/07/23 This 28-year-old man with h/o schizophrenia, alcohol use, marijuana use?was admitted on 04/08/2023 after he was noted to be unresponsive by his girlfriend for unclear amount of time. He was intubated for hypoxia and respiratory distress, aspiration and left pneumothorax.? Initial left mid axillary chest tube placed in emergency room with persistence of pneumothorax and questionable subdiaphragmatic placement.? Chest tube removed and replaced with left midclavicular in 3rd intercostal space with air evacuation and improvement in pneumothorax.? Patient also noted to have acute kidney injury and rhabdomyolysis and started on IV fluid hydration. He colvin sremained unresponsive. MRI brain 04/12 shows diffuse white matter ischemic changes bilaterally in centrum semiovale. EEG Shows diffuse bifrontal delta slowing and occasional sharper frequencies from the posterior quadrants consistent with a Moderate diffuse encephalopathic process. No seizure discharges. Toxic screen was positive for marijuaana, fentanyl, and opiates Review of Systems Review of Systems: Yes unobtainable due to endotracheal tube; No Unobtainable due to mental condition PMFSH Past Medical History Medical History Chronic schizophrenia PTSD (post-traumatic stress disorder) Schizoaffective disorder Surgical History Surgical History Hx of hand surgery Social History Social History Household Members: Unknown / Unable to assess Household Members Other:: assisted Housing: Unknown / Unable to assess Housing Other:: assisted Do you presently have visiting nurse or other home services: No Unable to assess alcohol history related to: Unable to respond and Unknown Alcohol intake: current Alcohol intake frequency: does not drink Patient Tobacco Use Status: Tobacco use Unknown Tobacco use type: Cigar Cigarette Packs Per Day: 0.5 Cigarettes Per Day: 5 Years Smoked: 10 Second Hand Smoke Exposure: Yes Use of substances other than those prescribed or required for medical reasons: Yes Substance Use Type: Marijuana Currently Displaying Signs/Symptoms of Drug Intoxication Withdrawal: No Advance Directives: No service: No Sexual orientation: Straight/Heterosexual Meds Allergies Allergy/AdvReac Type Severity Reaction Status Date / Time Penicillins [PCN] Allergy Unknown UNKNOWN Verified 12/12/21 23:33 Active Medications: Current Medications Acetaminophen (Acetaminophen Oral Liquid 650 Mg/20.3 Ml Solution) 650 mg PO Q6H PRN PRN Reason: Fever Last Admin: 04/13/23 19:25 Dose: 650 mg Aspirin (Aspirin 81 Mg Tab.Chew) 81 mg PO DAILY [facility] Last Admin: 04/14/23 08:25 Dose: 81 mg Chlorhexidine Gluconate (Chlorhexidine Gluc Oral Rinse 15 Ml Mouthwash) 15 ml B UCCAL TID [facility] Last Admin: 04/14/23 08:25 Dose: 15 ml Famotidine (Famotidine/Pf 20 Mg/2 Ml Vial) 20 mg IVPUSH DAILY [facility] Last Admin: 04/14/23 08:25 Dose: 20 mg Heparin Sodium (Porcine) (Heparin Sodium,Porcine 5,000 Unit/Ml Vial) 5,000 unit SUBCUT Q8H [facility] Last Admin: 04/14/23 11:56 Dose: 5,000 unit Propofol (Diprivan) 1,000 mg in 100 mls @ 0 mls/hr IVCONT .Q0M [facility]; Protocol Last Titration: 04/14/23 13:46 Dose: 30 mcg/kg/min, 15.35 mls/hr Norepinephrine Bitartrate (Levophed) 8 mg in 250 mls @ 0 mls/hr IV .Q0M [facility]; Protocol Last Titration: 04/11/23 07:22 Dose: Infused Fentanyl (Sublimaze/Ns) 1,000 mcg in 100 mls @ 0 mls/hr IVCONT .Q0M [facility]; Protocol Last Admin: 04/14/23 11:56 Dose: 75 mcg/hr, 7.5 mls/hr Naloxone HCl (Naloxone Hcl 0.4 Mg/Ml Vial) 0.2 mg IVPUSH Q2M PRN PRN Reason: Excessive sedation or RR < 8 Home Medications Medication Instructions Recorded Confirmed Last Taken Type ketoconazole 2 % topical cream 1 appl topical DAILY 04/08/23 04/08/23 Unknown History olanzapine 10 mg tablet 10 mg PO BEDTIME 04/08/23 04/08/23 Unknown History Physical Exam Vital Signs: Vital Signs: Last Vital Signs Temp 100.8 F H 04/14/23 13:00 Pulse 90 04/14/23 13:00 Resp 18 04/14/23 13:00 BP 137/66 04/14/23 13:00 Pulse Ox 92 04/14/23 13:00 O2 Del Method Mechanical Ventil ation 04/14/23 13:00 O2 Flow Rate 18 04/08/23 09:15 FiO2 40 04/14/23 13:00 BMI result Body Mass Index 30.0 Const: Other: intubated, sedated General: no acute distress, alert, awake, patient obtunded and other ( Sedated on the vent) Orientation/consciousness: patient obtunded HEENT: Head: Yes normocephalic and Yes atraumatic Eyes: Sclerae: sclerae normal Pupils: Equal, round and reactive pupils present EOM: EOMs intact bilaterally Neck: Neck: Yes no lymphadenopathy, Yes trachea midline and Yes supple Resp: Other: breathing comfortably on vent, occasional cough Effort & Inspection: normal respiratory effort and no respiratory distress Auscultation: clear to auscultation bilaterally and crackles ( mild bilateral) Cardio: Rate: regular rate Rhythm: regular rhythm Heart sounds: no gallops, no murmurs and no rubs GI: Other: soft and nondistended, Palpation (GI): Soft to palpation and Other GI palpation findings present ( Nontender) Auscultation: normal bowel sounds Skin: Other: warm, dry, 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 Neck is supple. Doll's eye movements are present. Pupils are unreactive to light. General: patient obtunded Cranial nerves: Yes Equal, round and reactive pupils present Extrem: Other: fasciotomy incision clean with small amount of bloody discharge from lower pole. Dressings changed and Surgicel applied followed by dry sterile dressings. General: Yes no pedal edema, No clubbing, No cyanosis, Yes edema ( 1+ bilateral) and Yes other Results Labs 04/14/23 04:30 04/14/23 04:30 Labs: Short CBC 04/14/23 Range/Units 04:30 WBC 12.5 H (4.8-10.8) X10*3/uL Hgb 12.9 L (14.0-18.0) g/dl Hct 38.4 L (42.0-52.0) % Plt Count 243 (160-400) X10*3/uL BMP 04/14/23 04/14/23 04:30 04:30 Sodium Cancelled 144 Potassium Cancelled 4.3 D Chloride Cancelled 104 Carbon Dioxide Cancelled 30 H BUN Cancelled 30 H Creatinine Cancelled 0.82 Calcium Cancelled 9.5 Liver Function 04/14/23 04/14/23 Range/Units 04:30 04:30 Albumin Cancelled 4.2 Microbiology Microbiology Results: Microbiology 04/08/23 09:07 Blood - Venous Blood Culture - Final No growth after 5 days. 04/08/23 09:08 Blood - Venous Blood Culture - Final No growth after 5 days. 04/08/23 Unknown Urine clean catch - Urine lomax top Urine Culture - Final No growth. Assessment and Plan (1) Anoxic encephalopathy: Status: Acute Moderately severe hypoxic encephalopathy with. Moderate diffuse slowing on EEG. Bilateral deep white matter centrum semiovale hypoxic changes on MRI. Recommendation: continue supportive care. Prognosis remains guarded (2) Polysubstance abuse: Status: Acute (3) Pneumothorax, left: Status: Acute (4) Aspiration pneumonitis: Status: Acute (5) Acute renal injury: Status: Acute (6) Acute respiratory failure: Status: Acute (7) Schizophrenia: Qualifiers: Schizophrenia type: unspecified Qualified Code(s): F20.9 - Schizophrenia, unspecified Status: Acute Plan Assessment: 28-year-old gentleman admitted with respiratory failure and alteration of mental status likely secondary to aspiration pneumonitis, further complicated by acute renal failure with rhabdomyolysis, and left-sided pneumothorax Plan: Neuro: poor arousal with sedation vacation, MRI on 04/10/2023 with bilateral cerebral anoxic related findings. Likely underlying anoxic encephalopathy. Neurology evaluation requested. Underlying polysubstance abuse.EEG is pending. Cardiac: 2D echocardiogram with normal ejection fraction, but wall motion abnormalities, now on aspirin. Pulmonary: acute respiratory, likely secondary to aspiration pneumonitis on the background of binge alcohol consumption / polysubstance abuse. Now requiring ventilatory support, continue to titrate off as tolerated. Left-sided pneumothorax status post chest tube placement with improvement. Renal: Acute renal failure with rhabdomyolysis, resolved after right gluteal fasciotomy. General surgery service care appreciated. Non oliguric. Continue to monitor renal indices, and urine output. Endo: No acute issues. GI: No acute issues. ID: No acute issues Heme/Onc: No acute issues. Psych: No acute issues. Miscellaneous: No acute issues. Prophylaxis: heparin, famotidine Diet: tube feeds Critical care time spent: 45 minutes Time Spent With Patient Time: Total time managing care of this patient today ____ minutes. Procedures Date of Service Date of Service: 04/14/23
[2023-04-14] MEDS: propofoL 1,000 MG/100 ML VIAL 15.35 MG IVCONT (14:37)
[2023-04-14] MEDS: Acetaminophen Oral Liquid 650 MG/20.3 ML SOLUTION PO (14:38)
--- NOTE | 2023-04-14 14:57 | PC.NURSE ---
Assumed care at 0700. Positive cough and gag, negative pain response, flaccid, unable to follow directions, pupils 3mm PERRLA. Sedation vacation started at 1200 for scheduled EEG 1230 - no change in neuros. EEG report pending. T max 101.3, WBC 12.5 - MD notified - medicated with PRN tylenol and ice packs applied. Sinus, HR maintaining 50-70's ; multiple episodes of bradycardia down to 30's w/ 8sec pause - Propofol gtt paused per MD VO, Dopamin gtt started per EMAR. Intermittent T wave inversion during sedation vacation - MD aware. R IJ TLC patent w/ good blood return, dressing c/d/i. Continued on aspirin and heparin SQ. LS clear to dim. Small amount of thin clear inline secretions, copious amount of thin clear oral secretions. 7.5 ETT 28 cm @ lip. Continued on PSV 8/5, O2 maintaining mid 80's - Fio2 increased to 50% - MD aware. CXR completed - see report. L Anterior chest tube removed by MD w/o complication. Abdomen soft, hypoactive bowel sounds. Rectal tube patent draining brown liquid stool. Tolerating Promote @ max rate 65cc/hr - no residuals. H20 240 administered q8hr. Continued on Pepcid. Steen patent, kirt care provided. U/O 25-90cc/hr, dark yellow/brown urine - MD aware. Dressing to R glut C/D/I. Stage 2 Coccyx - barrier cream and foam dressing applied. Prevlon system in place, turning bed utilized, repo R/L q2hr. Bed bath and oral care q2hr provided.
[2023-04-14] MEDS: DOPamine HCL/D5W 400 MG/250 ML PLAST..BAG 17.81 MG IVCONT (15:31)
[2023-04-14] MEDS: fentaNYL citrate/PF 100 MCG/2 ML VIAL 50 MCG IVPUSH ×2 (16:21→19:39)
[2023-04-14] MEDS: propofoL 1,000 MG/100 ML VIAL 10.24 MG IVCONT (23:37)
[2023-04-15] VITALS (39 sets, daily range): BP systolic 108–157; BP diastolic 49–84; PULSE 42–117; RESP 8–38; TEMP 34.9–38.9; O2SAT 92–99; BMI 29.1
[2023-04-15] MEDS: Acetaminophen Oral Liquid 650 MG/20.3 ML SOLUTION PO ×2 (04:07→20:15)
[2023-04-15] MEDS: Heparin Sodium,Porcine 5,000 UNIT/ML VIAL 5000 UNIT SUBCUT ×3 (04:07→20:12)
[2023-04-15 04:45] LABS: VBG Base Excess 5.1 mmol/L; VBG HCO3 30 mmol/L (22-26); VBG pCO2 46 mmHg; VBG pH 7.42 (7.32-7.43); VBG pO2 49 mmHg
[2023-04-15 04:56] LABS: MANUAL DIFF FLAG NO
[2023-04-15 05:01] LABS: Basophils Percent Auto 0.3 % (0-2); Eosinophils Absolute Auto 0.2 X10*3/uL (0.0-0.4); Eosinophils Percent Auto 1.5 % (0-4); Hematocrit 37.7 % (42.0-52.0); Hemoglobin 12.6 g/dl (14.0-18.0); Imm Gran Pct Auto 0.8 % (0.0-0.4); Lymphocytes Absolute Auto 1.2 X10*3/uL (1.2-4.9); Mean Corpuscular HGB Conc 33.4 g/dl (31.0-36.0); Mean Corpuscular Hemoglobin 29.7 pg (27.0-33.0); Mean Corpuscular Volume 88.9 fL (80.0-98.0); Mean Platelet Volume 9.5 fL (9.4-12.4); Monocytes Absolute Auto 1.4 X10*3/uL (0.1-1.2); Monocytes Percent Auto 11.3 % (2-11); Neutrophils Absolute Auto 9.1 x10*3/uL (2.0-8.3); Neutrophils Percent Auto 76.1 % (45-73); Platelet Count 294 X10*3/uL (160-400); Red Blood Count 4.24 X10*6/uL (4.60-5.80); Red Cell Distribution Width 12.3 % (11.0-16.0)
[2023-04-15] MEDS: propofoL 1,000 MG/100 ML VIAL 10.24 MG IVCONT ×2 (05:06→12:26)
[2023-04-15 05:15] LABS: Albumin Level 4.1 g/dL (3.5-5.0); Anion Gap 17 (12-20); Blood Urea Nitrogen 28 mg/dL (9-16); Calcium 9.3 mg/dL (8.4-10.2); Carbon Dioxide 25 mmol/L (22-29); Chloride 106 mmol/L (96-108); Creatinine Clr Calc Pharmacy 165.7; Estimated Glomerular Filt Rate > 60; Glucose Random 131 mg/dL (60-115); Magnesium 2.2 mg/dL (1.6-2.6); Phosphorus 3.4 mg/dL (2.7-4.5); Potassium 4.1 mmol/L (3.3-5.1); Sodium 144 mmol/L (135-145)
[2023-04-15 06:58] LABS: Venous Blood Gas Refer to POC result
[2023-04-15] MEDS: Chlorhexidine Gluc Oral Rinse 15 ML MOUTHWASH BUCCAL ×4 (08:30→22:16)
[2023-04-15] MEDS: Famotidine/PF 20 MG/2 ML VIAL IVPUSH (08:30)
[2023-04-15] MEDS: Aspirin 81 MG TAB.CHEW PO (08:30)
--- NOTE | 2023-04-15 09:28 | MHC.CM.PN ---
EMR REVIEWED, PT W/PERSISTENT ENCEPHALOPATHY AND REMAINS ON PSV, CHEST TUBE REMOVED YESTERDAY 04/14, PT PLACED ON DOPAMINE DRIP OVER NOC WHICH WAS ALSO D/C'D THIS AM. PER NSG PT REMAINS UNRESPONSIVE TO PAINFUL STIMULI AND PER CC PROVIDER ANTIC ANOTHER WEEK OF SUPPORTIVE CARE, CC PROVIDER DID REINFORCE THAT PT'S GUARDIAN JASON REZA [phone] IS THE ONLY ONE WHO CAN MAKE DECISIONS FOR PT. CM WILL CONT TO FOLLOW AND DISPO PENDING.
--- NOTE | 2023-04-15 12:55 | P.PNCC_ITS ---
Subjective Subjective Date of Service: 04/15/23 Interval History: 28-year-old gentleman with underlying history of schizophrenia alcohol use, marijuana use admitted on 04/08/2023 after he was noted to be unresponsive by his girlfriend for unclear amount of time with full min at the mouse. Patient was transported by EMS to emergency room where he was intubated for hypoxia and respiratory distress. On further evaluation patient with imaging finding of aspiration and left pneumothorax. Initial left mid axillary chest tube placed in emergency room with persistence of pneumothorax and questionable subdiaphragmatic placement. Chest tube removed and replaced with left midclavicular in 3rd intercostal space with air evacuation and improvement in pneumothorax. Patient also noted to have acute kidney injury and rhabdomyolysis and started on IV fluid hydration. He underwent right gluteal fasciotomy with significant improvement in his CPK and renal function. However, remains persi stently encephalopathic. MRI on 04/10/2023 with bilateral cerebral anoxic related encephalopathy. Evaluated by neurology with prognosis consider to be guarded, but not catastrophic. No events overnight. Critical Care Time (minutes): 45 Physical Exam Vital Signs: Vital Signs: Last Vital Signs Temp 98.6 F 04/15/23 12:00 Pulse 117 H 04/15/23 12:33 Resp 36 H 04/15/23 12:33 BP 157/82 H 04/15/23 12:33 Pulse Ox 99 04/15/23 12:33 O2 Del Method Mechanical Ventil ation 04/15/23 12:00 O2 Flow Rate 18 04/08/23 09:15 FiO2 40 04/15/23 12:00 BMI result Body Mass Index 29.1 Const: General: no acute distress and other (no arousal with sedation vacation) Eyes: Sclerae: sclerae normal Neck: Neck: Yes no lymphadenopathy, Yes trachea midline and Yes supple Resp: Auscultation: clear to auscultation bilaterally Cardio: Rate: regular rate Rhythm: regular rhythm Heart sounds: no gallops, no murmurs and no rubs GI: Palpation (GI): Soft to palpation and Other GI palpation findings present ( Nontender) Auscultation: normal bowel sounds Extrem: General: Yes no pedal edema, No clubbing and No cyanosis Objective Data Labs 04/15/23 04:35 04/15/23 04:35 Labs: Laboratory Results - last 24 hr 04/15/23 04/15/23 04/15/23 04:35 04:35 04:36 WBC 12.0 H RBC 4.24 L Hgb 12.6 L Hct 37.7 L MCV 88.9 MCH 29.7 MCHC 33.4 RDW 12.3 Plt Count 294 MPV 9.5 Immature Gran % (Auto) 0.8 H Neut % (Auto) 76.1 H Lymph % (Auto) 10.0 L [place] % (Auto) 11.3 H Eos % (Auto) 1.5 Baso % (Auto) 0.3 Lymph # (Auto) 1.2 [place] # (Auto) 1.4 H Eos # (Auto) 0.2 Baso # (Auto) 0.0 Abs Immat Gran (auto) 0.10 H Absolute Neuts (auto) 9.1 H Absolute Nucleated RBC 0.000 Nucleated RBC % (auto) 0.0 VBG pH 7.42 VBG pCO2 46 VBG pO2 49 VBG HCO3 30 H VBG O2 Saturation 78.0 VBG Base Excess 5.1 Sodium 144 Potassium 4.1 Chloride 106 Carbon Dioxide 25 Anion Gap 17 BUN 28 H Creatinine 0.77 Estim Creat Clear Calc 165.7 Estimated GFR > 60 Random Glucose 131 H Calcium 9.3 Phosphorus 3.4 Magnesium 2.2 Albumin 4.1 Microbiology Microbiology Results: Microbiology 04/08/23 09:07 Blood - Venous Blood Culture - Final No growth after 5 days. 04/08/23 09:08 Blood - Venous Blood Culture - Final No growth after 5 days. 04/08/23 Unknown Urine clean catch - Urine lomax top Urine Culture - Final No growth. Progress Note: A&P Assessment and plan (1) Anoxic encephalopathy: Status: Acute (2) Aspiration pneumonitis: Status: Acute (3) Acute respiratory failure: Status: Acute (4) Polysubstance abuse: Status: Acute Plan Assessment: 28-year-old gentleman admitted with respiratory failure and alteration of mental status likely secondary to aspiration pneumonitis, further complicated by acute renal failure with rhabdomyolysis, and left-sided pneumothorax Plan: Neuro: poor arousal with sedation vacation, MRI on 04/10/2023 with bilateral cerebral anoxic related findings. Likely underlying anoxic encephalopathy. Underlying polysubstance abuse. Neurology service care appreciated. Will continue with supportive measures as recommended. Cardiac: 2D echocardiogram with normal ejection fraction, but wall motion abnormalities, now on aspirin. Pulmonary: acute respiratory, likely secondary to aspiration pneumonitis on the background of binge alcohol consumption / polysubstance abuse. Now requiring ventilatory support, continue to titrate off as tolerated. Left-sided pneumothorax resolved. Renal: Acute renal failure with rhabdomyolysis, resolved after right gluteal fasciotomy. General surgery service care appreciated. Non oliguric. Continue to monitor renal indices, and urine output. Endo: No acute issues. GI: No acute issues. ID: No acute issues Heme/Onc: No acute issues. Psych: No acute issues. Miscellaneous: No acute issues. Prophylaxis: heparin, famotidine Diet: tube feeds Critical care time spent: 45 minutes Quality Stroke Does the patient have a stroke diagnosis?: No VTE Prior VTE?: No VTE Risk Level:: Medical - moderate - high VTE Device Contraindication: N/A - Device Ordered VTE Drug Contraindication: N/A - Med Ordered
[2023-04-15] MEDS: fentaNYL citrate/NS 1,000 MCG/100 ML PLAST..BAG 7.5 MCG IVCONT ×2 (14:34→23:36)
[2023-04-15] MEDS: propofoL 1,000 MG/100 ML VIAL 15.35 MG IVCONT ×2 (16:50→22:15)
[2023-04-15] MEDS: DOPamine HCL/D5W 400 MG/250 ML PLAST..BAG 8.91 MG IVCONT (23:38)
[2023-04-16] VITALS (39 sets, daily range): BP systolic 111–151; BP diastolic 61–96; PULSE 19–117; RESP 11–32; TEMP 34.9–38.7; O2SAT 92–97; BMI 29.1
[2023-04-16] MEDS: Heparin Sodium,Porcine 5,000 UNIT/ML VIAL 5000 UNIT SUBCUT ×3 (03:13→19:33)
[2023-04-16] MEDS: propofoL 1,000 MG/100 ML VIAL 10.24 MG IVCONT ×3 (03:13→16:12)
[2023-04-16 04:56] LABS: MANUAL DIFF FLAG NO
[2023-04-16 04:58] LABS: Basophils Percent Auto 0.4 % (0-2); Eosinophils Absolute Auto 0.3 X10*3/uL (0.0-0.4); Eosinophils Percent Auto 2.9 % (0-4); Hematocrit 36.4 % (42.0-52.0); Hemoglobin 12.1 g/dl (14.0-18.0); Lymphocytes Absolute Auto 1.5 X10*3/uL (1.2-4.9); Lymphocytes Percent Auto 15.2 % (20-40); Mean Corpuscular HGB Conc 33.2 g/dl (31.0-36.0); Mean Corpuscular Hemoglobin 29.7 pg (27.0-33.0); Mean Corpuscular Volume 89.4 fL (80.0-98.0); Mean Platelet Volume 9.4 fL (9.4-12.4); Monocytes Absolute Auto 1.2 X10*3/uL (0.1-1.2); Neutrophils Absolute Auto 6.9 x10*3/uL (2.0-8.3); Neutrophils Percent Auto 68.5 % (45-73); Platelet Count 340 X10*3/uL (160-400); Red Blood Count 4.07 X10*6/uL (4.60-5.80); Red Cell Distribution Width 12.5 % (11.0-16.0); White Blood Count 10.1 X10*3/uL (4.8-10.8)
[2023-04-16 05:00] LABS: VBG Base Excess 6.3 mmol/L; VBG HCO3 31 mmol/L (22-26); VBG pCO2 47 mmHg; VBG pH 7.42 (7.32-7.43); VBG pO2 48 mmHg
[2023-04-16 05:04] LABS: Venous Blood Gas Refer to POC result
[2023-04-16 05:15] LABS: Albumin Level 3.9 g/dL (3.5-5.0); Anion Gap 13 (12-20); Blood Urea Nitrogen 31 mg/dL (9-16); Carbon Dioxide 28 mmol/L (22-29); Chloride 106 mmol/L (96-108); Creatinine Clr Calc Pharmacy 177.1; Estimated Glomerular Filt Rate > 60; Glucose Random 116 mg/dL (60-115); Magnesium 2.1 mg/dL (1.6-2.6); Phosphorus 3.3 mg/dL (2.7-4.5); Potassium 4.1 mmol/L (3.3-5.1); Sodium 143 mmol/L (135-145)
--- NOTE | 2023-04-16 06:18 | PC.NURSE ---
CARE ASSUMED 23:15...REMAINS TUBED/VENT...CPAP 5/PSV 8/FIO2 35%,,,PROPOFOL 30 MCG/KG/MIN AND FENTANYL 75 MCG/HR AT HS....UNRESPONSIVE TO VERBAL STIMULI...(+) GAG/COUGH REFLEXES...RARE SPONTANEOUS MOVEMENT OF LEFT ARM BUT NOT TO COMMAND....RR 11-13 ON CPAP/PSV....Ve 7-8 L/M...PROPOFOL WEANED TO 20 MCG/KG/MIN AND FENTANYL TO 50 MCG/HR..CURRENTLY RR 14-16...Ve 7-9 l/m...voiding yellow urine via external [place] condom catheter...DRESSING TO COCCYX AND RIGHT BUTTOCK DRY/INTACT...SMALL DIME SIZED REDDENED AREAL LEFT INNER ELBOW...DOPAMINE MAINTAINED 2.5 MCG/KG/MIN FOR PRIOR BRADYCARDIA AFTER DRIP HELD 5/31 AM...NSR NO ECTOPY....HR 60'S-90'S
[2023-04-16] MEDS: Famotidine/PF 20 MG/2 ML VIAL IVPUSH (08:17)
[2023-04-16] MEDS: fentaNYL citrate/PF 100 MCG/2 ML VIAL 50 MCG IVPUSH ×2 (08:17→20:51)
[2023-04-16] MEDS: Chlorhexidine Gluc Oral Rinse 15 ML MOUTHWASH BUCCAL ×3 (08:19→19:34)
[2023-04-16] MEDS: Aspirin 81 MG TAB.CHEW PO (08:19)
--- NOTE | 2023-04-16 08:30 | PM.CCPN ---
Subjective Subjective Date of Service: 04/16/23 Interval History: 28-year-old gentleman with underlying history of schizophrenia alcohol use, marijuana use admitted on 04/08/2023 after he was noted to be unresponsive by his girlfriend for unclear amount of time with full min at the mouse. Patient was transported by EMS to emergency room where he was intubated for hypoxia and respiratory distress. On further evaluation patient with imaging finding of aspiration and left pneumothorax. Initial left mid axillary chest tube placed in emergency room with persistence of pneumothorax and questionable subdiaphragmatic placement. Chest tube removed and replaced with left midclavicular in 3rd intercostal space with air evacuation and improvement in pneumothorax. Patient also noted to have acute kidney injury and rhabdomyolysis and started on IV fluid hydration. He underwent right gluteal fasciotomy with significant improvement in his CPK and renal function. However, remains persistently encephalopathic. MRI on 04/10/2023 with bilateral cerebral anoxic related encephalopathy. Evaluated by neurology with prognosis consider to be guarded, but not catastrophic. No events overnight. Some improvement in mental status with edation vacation, but still not purposeful. Critical Care Time (minutes): 45 Physical Exam Vital Signs: Vital Signs: Last Vital Signs Temp 101.1 F H 04/16/23 08:00 Pulse 117 H 04/16/23 08:00 Resp 32 H 04/16/23 08:17 BP 138/90 H 04/16/23 08:00 Pulse Ox 92 04/16/23 08:00 O2 Del Method Mechanical Ventil ation 04/16/23 08:00 O2 Flow Rate 18 04/08/23 09:15 FiO2 35 04/16/23 08:00 BMI result Body Mass Index 29.1 Const: General: no acute distress and other (sedated on the vent) Eyes: Sclerae: sclerae normal Neck: Neck: Yes no lymphadenopathy, Yes trachea midline and Yes supple Resp: Effort & Inspection: normal respiratory effort and no respiratory distress Auscultation: clear to auscultation bilaterally Cardio: Rate: regular rate Rhythm: regular rhythm Heart sounds: no gallops, no murmurs and no rubs GI: Palpation (GI): Soft to palpation and Other GI palpation findings present ( Nontender) Auscultation: normal bowel sounds Extrem: General: Yes no pedal edema, No clubbing and No cyanosis Objective Data Labs 04/16/23 04:48 04/16/23 04:48 Labs: Laboratory Results - last 24 hr 04/16/23 04/16/23 04/16/23 04:48 04:48 04:51 WBC 10.1 RBC 4.07 L Hgb 12.1 L Hct 36.4 L MCV 89.4 MCH 29.7 MCHC 33.2 RDW 12.5 Plt Count 340 MPV 9.4 Immature Gran % (Auto) 1.0 H Neut % (Auto) 68.5 Lymph % (Auto) 15.2 L [place] % (Auto) 12.0 H Eos % (Auto) 2.9 Baso % (Auto) 0.4 Lymph # (Auto) 1.5 [place] # (Auto) 1.2 Eos # (Auto) 0.3 Baso # (Auto) 0.0 Abs Immat Gran (auto) 0.10 H Absolute Neuts (auto) 6.9 Absolute Nucleated RBC 0.000 Nucleated RBC % (auto) 0.0 VBG pH 7.42 VBG pCO2 47 VBG pO2 48 VBG HCO3 31 H VBG O2 Saturation 77.0 VBG Base Excess 6.3 Sodium 143 Potassium 4.1 Chloride 106 Carbon Dioxide 28 Anion Gap 13 BUN 31 H Creatinine 0.72 Estim Creat Clear Calc 177.1 Estimated GFR > 60 Random Glucose 116 H Calcium 9.0 Phosphorus 3.3 Magnesium 2.1 Albumin 3.9 Microbiology Microbiology Results: Microbiology 04/08/23 09:07 Blood - Venous Blood Culture - Final No growth after 5 days. 04/08/23 09:08 Blood - Venous Blood Culture - Final No growth after 5 days. 04/08/23 Unknown Urine clean catch - Urine lomax top Urine Culture - Final No growth. Progress Note: A&P Assessment and plan (1) Anoxic encephalopathy: Status: Acute (2) Polysubstance abuse: Status: Acute (3) Acute respiratory failure: Status: Acute (4) Schizophrenia: Status: Acute Plan Assessment: 28-year-old gentleman admitted with respiratory failure and alteration of mental status likely secondary to aspiration pneumonitis, further complicated by acute renal failure with rhabdomyolysis, and left-sided pneumothorax Plan: Neuro: poor arousal with sedation vacation, MRI on 04/10/2023 with bilateral cerebral anoxic related findings. Likely underlying anoxic encephalopathy. Underlying polysubstance abuse. Neurology service care appreciated. Will continue with supportive measures as recommended. Some improvement in mental status with sedation vacation, but still no purposeful actions. Cardiac: 2D echocardiogram with normal ejection fraction, but wall motion abnormalities, now on aspirin. Pulmonary: acute respiratory, likely secondary to aspiration pneumonitis on the background of binge alcohol consumption / polysubstance abuse. Now requiring ventilatory support, continue to titrate off as tolerated. Left-sided pneumothorax resolved. Renal: Acute renal failure with rhabdomyolysis, resolved after right gluteal fasciotomy. General surgery service care appreciated. Non oliguric. Continue to monitor renal indices, and urine output. Endo: No acute issues. GI: No acute issues. ID: No acute issues Heme/Onc: No acute issues. Psych: No acute issues. Miscellaneous: No acute issues. Prophylaxis: heparin, famotidine Diet: tube feeds Critical care time spent: 45 minutes Quality Stroke Does the patient have a stroke diagnosis?: No VTE Prior VTE?: No VTE Risk Level:: Medical - moderate - high VTE Device Contraindication: N/A - Device Ordered VTE Drug Contraindication: N/A - Med Ordered
--- NOTE | 2023-04-16 09:36 | MHC.CLN ---
F/U PT REMAINS INTUBATED AND SEDATED PT TOLERATING PROMOTE AT MAX GOAL RATE 65ML/HR WITH 240ML FWF Q 8 HRS PROVIDES 1560KCALS (1830KCALS WITH SEDATION; 22KCALS/KG CMW), 97.5G PROTEIN (1.1G/KG CMW), 2029ML TOTAL FLUID FROM FORMULA AND FLUSHES (24ML/KG CMW) CONTINUE TO MONITOR TOLERANCE, RESIDUALS AND LYTES
[2023-04-16] MEDS: Acetaminophen Oral Liquid 650 MG/20.3 ML SOLUTION PO ×2 (12:26→20:51)
--- NOTE | 2023-04-16 13:35 | MHC.CM.PN ---
Pt continues care in ICU: goals of care today are for reduction of sedation to assess neurological functioning return. D/C planning can then proceed once his functional abilities are better known.
[2023-04-16] MEDS: fentaNYL citrate/NS 1,000 MCG/100 ML PLAST..BAG 2.5 MCG IVCONT (22:14)
[2023-04-17] VITALS (31 sets, daily range): BP systolic 117–151; BP diastolic 59–84; PULSE 78–107; RESP 14–23; TEMP 34.3–38.8; O2SAT 93–97; BMI 29.2
[2023-04-17] MEDS: propofoL 1,000 MG/100 ML VIAL 10.24 MG IVCONT ×4 (00:51→20:39)
[2023-04-17] MEDS: Acetaminophen Oral Liquid 650 MG/20.3 ML SOLUTION PO (02:22)
[2023-04-17] MEDS: fentaNYL citrate/PF 100 MCG/2 ML VIAL 50 MCG IVPUSH ×2 (02:22→20:00)
[2023-04-17] MEDS: Heparin Sodium,Porcine 5,000 UNIT/ML VIAL 5000 UNIT SUBCUT ×3 (04:06→19:49)
--- NOTE | 2023-04-17 04:17 | PM.SEPSIS ---
Sepsis Event Note Evaluation Sepsis screening result: Possible Sepsis Risk Current stage of sepsis: ruled out Reason for ruling out sepsis: WBC < 12.0, lactic acid 1.0. No evidence of infection or organ dysfunction. Focused Exam Vital signs: Vital Signs Temp Pulse Resp BP Pulse Ox O2 Del Method FiO2 04/17/23 04:00 35 04/17/23 03:57 101.3 F H 04/17/23 00:36 35 04/17/23 00:00 35 04/17/23 00:00 101.1 F H 78 14 130/82 96 Mechanical Ventilation 35 04/17/23 04:00 101.3 F H 83 17 127/82 97 Mechanical Ventilation 35 04/17/23 03:00 101.3 F H 100 20 138/81 Mechanical Ventilation 35 04/17/23 01:57 100.8 F H 107 H 20 128/77 95 Mechanical Ventilation 35 04/17/23 00:59 101.1 F H 93 18 122/75 96 Mechanical Ventilation 35 04/16/23 23:57 101.1 F H 72 14 118/68 96 Mechanical Ventilation 35 04/16/23 23:00 101.5 F H 76 19 132/85 96 Mechanical Ventilation 35 04/16/23 22:14 98 19 127/76 95 04/16/23 22:14 98 19 127/76 95 04/16/23 21:53 100.1 F 04/16/23 22:00 101.1 F H 96 20 127/76 96 Mechanical Ventilation 35 04/16/23 21:00 100.9 F H 83 16 126/69 95 Mechanical Ventilation 35 04/16/23 20:18 35 04/16/23 20:00 101.1 F H 111 H 21 H 133/73 95 Mechanical Ventilation 35 04/16/23 19:38 35 04/16/23 19:00 100.8 F H 78 18 123/70 95 Mechanical Ventilation 35 04/16/23 18:00 101.1 F H 113 H 21 H 133/83 95 Mechanical Ventilation 35 04/16/23 17:00 101.1 F H 105 H 20 124/71 95 Mechanical Ventilation 35 Respiratory exam: Present patient mechanically ventilated Cardiovascular exam: RRR Capillary refill: < 2 Seconds Peripheral pulse strength: 3+ Normal Peripheral pulse location: Pedal Skin exam: normal turgor, flushed and diaphoretic Date exam was performed: 04/17/23 Time exam was performed: 05:29 Problem List (1) Anoxic encephalopathy: Status: Acute (2) Polysubstance abuse: Status: Acute (3) Acute respiratory failure: Status: Acute (4) Schizophrenia: Status: Acute
[2023-04-17 04:47] LABS: VBG Base Excess 4.5 mmol/L; VBG HCO3 26 mmol/L (22-26); VBG pCO2 30 mmHg; VBG pH 7.54 (7.32-7.43); VBG pO2 90 mmHg
[2023-04-17 04:49] LABS: MANUAL DIFF FLAG NO
[2023-04-17 04:50] LABS: Venous Blood Gas Refer to POC result
[2023-04-17 04:51] LABS: Basophils Absolute Auto 0.1 X10*3/uL (0.0-0.2); Basophils Percent Auto 0.6 % (0-2); Eosinophils Absolute Auto 0.1 X10*3/uL (0.0-0.4); Eosinophils Percent Auto 0.7 % (0-4); Hematocrit 36.4 % (42.0-52.0); Imm Gran Abs Auto 0.09 X10*3/uL (0.00-0.03); Imm Gran Pct Auto 0.8 % (0.0-0.4); Lymphocytes Absolute Auto 1.6 X10*3/uL (1.2-4.9); Lymphocytes Percent Auto 14.1 % (20-40); Mean Corpuscular Hemoglobin 30.2 pg (27.0-33.0); Mean Corpuscular Volume 91.5 fL (80.0-98.0); Mean Platelet Volume 9.6 fL (9.4-12.4); Monocytes Absolute Auto 1.3 X10*3/uL (0.1-1.2); Monocytes Percent Auto 11.8 % (2-11); Neutrophils Absolute Auto 7.9 x10*3/uL (2.0-8.3); Platelet Count 403 X10*3/uL (160-400); Red Blood Count 3.98 X10*6/uL (4.60-5.80); Red Cell Distribution Width 12.6 % (11.0-16.0)
[2023-04-17 05:07] LABS: Albumin Level 3.9 g/dL (3.5-5.0); Anion Gap 14 (12-20); Blood Urea Nitrogen 31 mg/dL (9-16); Carbon Dioxide 24 mmol/L (22-29); Chloride 109 mmol/L (96-108); Creatinine Clr Calc Pharmacy 163.5; Estimated Glomerular Filt Rate > 60; Glucose Random 123 mg/dL (60-115); Magnesium 2.2 mg/dL (1.6-2.6); Phosphorus 3.3 mg/dL (2.7-4.5); Potassium 4.2 mmol/L (3.3-5.1); Sodium 143 mmol/L (135-145)
--- NOTE | 2023-04-17 08:04 | PM.PNGS ---
Subjective Subjective Date of Service: 04/17/23 Interval history: Remains intubated, unresponsive Physical Exam Vital Signs: Vital Signs: Last Vital Signs Temp 100.6 F H 04/17/23 07:00 Pulse 93 04/17/23 07:00 Resp 19 04/17/23 07:00 BP 132/80 04/17/23 07:00 Pulse Ox 96 04/17/23 07:00 O2 Del Method Mechanical Ventil ation 04/17/23 07:00 O2 Flow Rate 18 04/08/23 09:15 FiO2 35 04/17/23 07:52 BMI result Body Mass Index 29.2 Extrem: Other: Incision to right buttock is clean and intact. Several the sutures were removed and clean dressings applied. Patient was bleeding from suture holes possibly related to anticoagulation. Will leave sutures in for another week. Objective Data Active Medications Acetaminophen (Acetaminophen Oral Liquid 650 Mg/20.3 Ml Solution) 650 mg PO Q6H PRN PRN Reason: Fever Last Admin: 04/17/23 02:22 Dose: 650 mg Documented By: CHANELLE Aspirin (Aspirin 81 Mg Tab.Chew) 81 mg PO DAILY [facility] Last Admin: 04/16/23 08:19 Dose: 81 mg Documented By: EVANGELINA Chlorhexidine Gluconate (Chlorhexidine Gluc Oral Rinse 15 Ml Mouthwash) 15 ml BUCCAL TID [facility] Last Admin: 04/16/23 19:34 Dose: 15 ml Documented By: CHANELLE Famotidine (Famotidine/Pf 20 Mg/2 Ml Vial) 20 mg IVPUSH DAILY [facility] Last Admin: 04/16/23 08:17 Dose: 20 mg Documented By: EVANGELINA Fentanyl (Fentanyl Citrate/Pf 100 Mcg/2 Ml Vial) 50 mcg IVPUSH Q2H PRN; Protocol PRN Reason: vent synchrony Last Admin: 04/17/23 02:22 Dose: 50 mcg Documented By: CHANELLE Heparin Sodium (Porcine) (Heparin Sodium,Porcine 5,000 Unit/Ml Vial) 5,000 unit SUBCUT Q8H [facility] Last Admin: 04/17/23 04:06 Dose: 5,000 unit Documented By: CHANELLE Propofol (Diprivan) 1,000 mg in 100 mls @ 0 mls/hr IVCONT .Q0M [facility]; Protocol Last Admin: 04/17/23 05:52 Dose: 20 mcg/kg/min, 10.24 mls/hr Documented By: CHANELLE Norepinephrine Bitartrate (Levophed) 8 mg in 250 mls @ 0 mls/hr IV .Q0M [facility]; Protocol Last Titration: 04/11/23 07:22 Dose: 0 mcg/kg/min, 0 mls/hr Documented By: EDMUND Fentanyl (Sublimaze/Ns) 1,000 mcg in 100 mls @ 0 mls/hr IVCONT .Q0M [facility]; Protocol Last Admin: 04/16/23 22:14 Dose: 25 mcg/hr, 2.5 mls/hr Documented By: CHANELLE Dopamine HCl/Dextrose (Dopamine Hcl/D5w) 400 mg in 250 mls @ 0 mls/hr IVCONT .Q0M [facility]; Protocol Last Titration: 04/16/23 09:34 Dose: 0 mcg/kg/min, 0 mls/hr Documented By: EVANGELINA Naloxone HCl (Naloxone Hcl 0.4 Mg/Ml Vial) 0.2 mg IVPUSH Q2M PRN PRN Reason: Excessive sedation or RR < 8 Labs 04/17/23 04:39 04/17/23 04:39 Labs: Laboratory Results - last 24 hr 04/17/23 04/17/23 04/17/23 04:38 04:39 04:39 MCV 91.5 MCH 30.2 MCHC 33.0 RDW 12.6 Plt Count 403 H MPV 9.6 Immature Gran % (Auto) 0.8 H Neut % (Auto) 72.0 Lymph % (Auto) 14.1 L [place] % (Auto) 11.8 H Eos % (Auto) 0.7 Baso % (Auto) 0.6 Lymph # (Auto) 1.6 [place] # (Auto) 1.3 H Eos # (Auto) 0.1 Baso # (Auto) 0.1 Abs Immat Gran (auto) 0.09 H Absolute Neuts (auto) 7.9 Absolute Nucleated RBC 0.000 Nucleated RBC % (auto) 0.0 VBG pH 7.54 H VBG pCO2 30 VBG pO2 90 VBG HCO3 26 VBG O2 Saturation 98.0 VBG Base Excess 4.5 Anion Gap 14 Estim Creat Clear Calc 163.5 Estimated GFR > 60 Random Glucose 123 H Lactic Acid Calcium 9.0 Phosphorus 3.3 Magnesium 2.2 Albumin 3.9 04/17/23 04:39 MCV MCH MCHC RDW Plt Count MPV Immature Gran % (Auto) Neut % (Auto) Lymph % (Auto) [place] % (Auto) Eos % (Auto) Baso % (Auto) Lymph # (Auto) [place] # (Auto) Eos # (Auto) Baso # (Auto) Abs Immat Gran (auto) Absolute Neuts (auto) Absolute Nucleated RBC Nucleated RBC % (auto) VBG pH VBG pCO2 VBG pO2 VBG HCO3 VBG O2 Saturation VBG Base Excess Anion Gap Estim Creat Clear Calc Estimated GFR Random Glucose Lactic Acid 1.0 Calcium Phosphorus Magnesium Albumin Procedures Date of Service Date of Service: 04/17/23 Progress Note: A&P Assessment and plan (1) Rhabdomyolysis: Status: Inactive Plan Will continue to monitor incision, suture removal next week. Time Spent With Patient Time: Total time managing care of this patient today ____ minutes. Quality Stroke Does the patient have a stroke diagnosis?: No VTE Prior VTE?: No VTE Risk Level:: Medical - moderate - high VTE Device Contraindication: N/A - Device Ordered VTE Drug Contraindication: N/A - Med Ordered
[2023-04-17] MEDS: Aspirin 81 MG TAB.CHEW PO (08:18)
[2023-04-17] MEDS: Chlorhexidine Gluc Oral Rinse 15 ML MOUTHWASH BUCCAL ×3 (08:18→19:49)
[2023-04-17] MEDS: Famotidine/PF 20 MG/2 ML VIAL IVPUSH (08:19)
--- NOTE | 2023-04-17 10:02 | MHC.CLN ---
F/U PT REMAINS INTUBATED AND SEDATED DISCUSSED AT ROUNDS WITH PT TOLERATING PROMOTE AT MAX GOAL RATE 65ML/HR WITH 240ML FWF Q 8 HRS PROVIDES 1560KCALS (1830KCALS WITH SEDATION; 22KCALS/KG CMW), 97.5G PROTEIN (1.1G/KG CMW), 2029ML TOTAL FLUID FROM FORMULA AND FLUSHES (24ML/KG CMW) CONTINUE TO MONITOR TOLERANCE, RESIDUALS AND LYTES AWAITING FAMILY TEAM MEETING TO DISCUSS GOALS OF CARE
--- NOTE | 2023-04-17 10:52 | P.PNCC_ITS ---
Subjective Subjective Date of Service: 04/17/23 Interval History: 28-year-old gentleman with underlying history of schizophrenia alcohol use, marijuana use admitted on 04/08/2023 after he was noted to be unresponsive by his girlfriend for unclear amount of time with full min at the mouse. Patient was transported by EMS to emergency room where he was intubated for hypoxia and respiratory distress. On further evaluation patient with imaging finding of aspiration and left pneumothorax. Initial left mid axillary chest tube placed in emergency room with persistence of pneumothorax and questionable subdiaphragmatic placement. Chest tube removed and replaced with left midclavicular in 3rd intercostal space with air evacuation and improvement in pneumothorax. Patient also noted to have acute kidney injury and rhabdomyolysis and started on IV fluid hydration. He underwent right gluteal fasciotomy with significant improvement in his CPK and renal function. However, remains persi stently encephalopathic. MRI on 04/10/2023 with bilateral cerebral anoxic related encephalopathy. Evaluated by neurology with prognosis consider to be guarded, but not catastrophic. Febrile overnight, cultured. Fevers are likely central. Critical Care Time (minutes): 45 Physical Exam Vital Signs: Vital Signs: Last Vital Signs Temp 101.5 F H 04/17/23 10:00 Pulse 100 04/17/23 10:00 Resp 20 04/17/23 10:00 BP 138/80 04/17/23 10:00 Pulse Ox 96 04/17/23 10:00 O2 Del Method Mechanical Ventil ation 04/17/23 10:00 O2 Flow Rate 18 04/08/23 09:15 FiO2 35 04/17/23 10:00 BMI result Body Mass Index 29.2 Const: General: no acute distress and other ( Sedated on the vent) Eyes: Sclerae: sclerae normal Neck: Neck: Yes no lymphadenopathy, Yes trachea midline and Yes supple Resp: Auscultation: clear to auscultation bilaterally Cardio: Rate: tachycardic Rhythm: regular rhythm Heart sounds: no gallops, no murmurs and no rubs GI: Palpation (GI): Soft to palpation and Other GI palpation findings present ( Nontender) Auscultation: normal bowel sounds Extrem: General: Yes no pedal edema, No clubbing and No cyanosis Objective Data Labs 04/17/23 04:39 04/17/23 04:39 Labs: Laboratory Results - last 24 hr 04/17/23 04/17/23 04/17/23 04:38 04:39 04:39 WBC 11.0 H RBC 3.98 L Hgb 12.0 L Hct 36.4 L MCV 91.5 MCH 30.2 MCHC 33.0 RDW 12.6 Plt Count 403 H MPV 9.6 Immature Gran % (Auto) 0.8 H Neut % (Auto) 72.0 Lymph % (Auto) 14.1 L [place] % (Auto) 11.8 H Eos % (Auto) 0.7 Baso % (Auto) 0.6 Lymph # (Auto) 1.6 [place] # (Auto) 1.3 H Eos # (Auto) 0.1 Baso # (Auto) 0.1 Abs Immat Gran (auto) 0.09 H Absolute Neuts (auto) 7.9 Absolute Nucleated RBC 0.000 Nucleated RBC % (auto) 0.0 VBG pH 7.54 H VBG pCO2 30 VBG pO2 90 VBG HCO3 26 VBG O2 Saturation 98.0 VBG Base Excess 4.5 Sodium 143 Potassium 4.2 Chloride 109 H Carbon Dioxide 24 Anion Gap 14 BUN 31 H Creatinine 0.78 Estim Creat Clear Calc 163.5 Estimated GFR > 60 Random Glucose 123 H Lactic Acid Calcium 9.0 Phosphorus 3.3 Magnesium 2.2 Albumin 3.9 04/17/23 04:39 WBC RBC Hgb Hct MCV MCH MCHC RDW Plt Count MPV Immature Gran % (Auto) Neut % (Auto) Lymph % (Auto) [place] % (Auto) Eos % (Auto) Baso % (Auto) Lymph # (Auto) [place] # (Auto) Eos # (Auto) Baso # (Auto) Abs Immat Gran (auto) Absolute Neuts (auto) Absolute Nucleated RBC Nucleated RBC % (auto) VBG pH VBG pCO2 VBG pO2 VBG HCO3 VBG O2 Saturation VBG Base Excess Sodium Potassium Chloride Carbon Dioxide Anion Gap BUN Creatinine Estim Creat Clear Calc Estimated GFR Random Glucose Lactic Acid 1.0 Calcium Phosphorus Magnesium Albumin Microbiology Microbiology Results: Microbiology 04/08/23 09:07 Blood - Venous Blood Culture - Final No growth after 5 days. 04/08/23 09:08 Blood - Venous Blood Culture - Final No growth after 5 days. 04/08/23 Unknown Urine clean catch - Urine lomax top Urine Culture - Final No growth. Progress Note: A&P Assessment and plan (1) Anoxic encephalopathy: Status: Acute (2) Polysubstance abuse: Status: Acute (3) Acute respiratory failure: Status: Acute (4) Schizophrenia: Status: Acute Plan Assessment: 28-year-old gentleman admitted with respiratory failure and alteration of mental status likely secondary to aspiration pneumonitis, further complicated by acute renal failure with rhabdomyolysis, and left-sided pneumothorax Plan: Neuro: poor arousal with sedation vacation, MRI on 04/10/2023 with bilateral cerebral anoxic related findings. Likely underlying anoxic encephalopathy. Underlying polysubstance abuse. Neurology service care appreciated. Will continue with supportive measures as recommended. Some improvement in mental status with sedation vacation, but still no purposeful actions. If no further improvement over several days, will discuss tracheostomy and gastrostomy placement. Cardiac: 2D echocardiogram with normal ejection fraction, but wall motion abnormalities, now on aspirin. Pulmonary: acute respiratory, likely secondary to aspiration pneumonitis on the background of binge alcohol consumption / polysubstance abuse. Now requiring ventilatory support, continue to titrate off as tolerated. Left-sided pneumothorax resolved. Renal: Acute renal failure with rhabdomyolysis, resolved after right gluteal fasciotomy. General surgery service care appreciated. Non oliguric. Continue to monitor renal indices, and urine output. Endo: No acute issues. GI: No acute issues. ID: No acute issues Heme/Onc: No acute issues. Psych: No acute issues. Miscellaneous: No acute issues. Prophylaxis: heparin, famotidine Diet: tube feeds Critical care time spent: 45 minutes Quality Stroke Does the patient have a stroke diagnosis?: No VTE Prior VTE?: No VTE Risk Level:: Medical - moderate - high VTE Device Contraindication: N/A - Device Ordered VTE Drug Contraindication: N/A - Med Ordered
--- NOTE | 2023-04-17 14:04 | MHC.CM.PN ---
Addendum entered by Gill Medellin 04/17/23 15:26: Received callback from pt's guardian, Manuel Newsome: clinical update given: Manuel can give consent/auth for peg and trach but cannot change pt's code status without an expansion of his guardianship approved through the court. Manuel states he will contact the pt's sister to discuss next steps and goals of care. Explained LTACH should pt require trach/peg placement and limitations of facilities in the state and d/t pt's payor. CM to follow for finalization of d/c planning Original Note: Pt continues care in ICU: vented and with poor neurological response thus far. Pt is approaching time criteria for possible peg/trach - MD will discuss w/pt's legal guardian. CM to contact guardian today for clinical update. CM to follow.
[2023-04-18] VITALS (31 sets, daily range): BP systolic 106–160; BP diastolic 58–83; PULSE 60–123; RESP 16–26; TEMP 32–38.9; O2SAT 89–98; BMI 28.2
[2023-04-18] MEDS: propofoL 1,000 MG/100 ML VIAL 10.24 MG IVCONT (03:56)
[2023-04-18] MEDS: fentaNYL citrate/NS 1,000 MCG/100 ML PLAST..BAG 2.5 MCG IVCONT (04:01)
[2023-04-18] MEDS: Heparin Sodium,Porcine 5,000 UNIT/ML VIAL 5000 UNIT SUBCUT ×3 (04:05→21:29)
[2023-04-18 05:30] LABS: VBG Base Excess 6.9 mmol/L; VBG HCO3 31 mmol/L (22-26); VBG pCO2 43 mmHg; VBG pH 7.46 (7.32-7.43); VBG pO2 46 mmHg
[2023-04-18 06:06] LABS: MANUAL DIFF FLAG NO
[2023-04-18 06:10] LABS: Basophils Percent Auto 0.3 % (0-2); Eosinophils Percent Auto 0.3 % (0-4); Hematocrit 36.2 % (42.0-52.0); Imm Gran Abs Auto 0.09 X10*3/uL (0.00-0.03); Imm Gran Pct Auto 0.6 % (0.0-0.4); Lymphocytes Absolute Auto 1.4 X10*3/uL (1.2-4.9); Lymphocytes Percent Auto 8.7 % (20-40); Mean Corpuscular HGB Conc 33.1 g/dl (31.0-36.0); Mean Corpuscular Hemoglobin 30.2 pg (27.0-33.0); Mean Platelet Volume 9.8 fL (9.4-12.4); Monocytes Absolute Auto 1.4 X10*3/uL (0.1-1.2); Monocytes Percent Auto 8.9 % (2-11); Neutrophils Absolute Auto 12.6 x10*3/uL (2.0-8.3); Neutrophils Percent Auto 81.2 % (45-73); Platelet Count 481 X10*3/uL (160-400); Red Blood Count 3.98 X10*6/uL (4.60-5.80); Red Cell Distribution Width 12.6 % (11.0-16.0); White Blood Count 15.6 X10*3/uL (4.8-10.8)
[2023-04-18 06:30] LABS: Anion Gap 16 (12-20); Blood Urea Nitrogen 33 mg/dL (9-16); Calcium 9.1 mg/dL (8.4-10.2); Carbon Dioxide 25 mmol/L (22-29); Chloride 109 mmol/L (96-108); Creatinine Clr Calc Pharmacy 159.1; Estimated Glomerular Filt Rate > 60; Glucose Random 112 mg/dL (60-115); Magnesium 2.3 mg/dL (1.6-2.6); Phosphorus 4.1 mg/dL (2.7-4.5); Potassium 4.3 mmol/L (3.3-5.1); Sodium 146 mmol/L (135-145)
[2023-04-18 06:44] LABS: Venous Blood Gas Refer to POC result
[2023-04-18] MEDS: propofoL 1,000 MG/100 ML VIAL 20.47 MG IVCONT ×4 (08:46→21:34)
[2023-04-18] MEDS: Famotidine/PF 20 MG/2 ML VIAL IVPUSH (08:48)
[2023-04-18] MEDS: Chlorhexidine Gluc Oral Rinse 15 ML MOUTHWASH BUCCAL ×3 (08:48→21:29)
[2023-04-18] MEDS: Aspirin 81 MG TAB.CHEW PO (08:48)
[2023-04-18] MEDS: Cisatracurium Besylate 20 MG/10 ML VIAL 10 MG IVPUSH (09:15)
[2023-04-18] MEDS: fentaNYL citrate/PF 100 MCG/2 ML VIAL IVPUSH (09:49)
--- NOTE | 2023-04-18 11:39 | P.PNCC_ITS ---
Subjective Subjective Date of Service: 04/18/23 Interval History: 28-year-old gentleman with underlying history of schizophrenia alcohol use, marijuana use admitted on 04/08/2023 after he was noted to be unresponsive by his girlfriend for unclear amount of time with full min at the mouse. Patient was transported by EMS to emergency room where he was intubated for hypoxia and respiratory distress. On further evaluation patient with imaging finding of aspiration and left pneumothorax. Initial left mid axillary chest tube placed in emergency room with persistence of pneumothorax and questionable subdiaphragmatic placement. Chest tube removed and replaced with left midclavicular in 3rd intercostal space with air evacuation and improvement in pneumothorax. Patient also noted to have acute kidney injury and rhabdomyolysis and started on IV fluid hydration. He underwent right gluteal fasciotomy with significant improvement in his CPK and renal function. However, remains persi stently encephalopathic. MRI on 04/10/2023 with bilateral cerebral anoxic related encephalopathy. Evaluated by neurology with prognosis consider to be guarded, but not catastrophic. no events overnight. This a.m. with inability to ventilate and high peak pressures requiring exchange of ET tube over a bougie secondary to caked in secretion, with improvement in ventilation and oxygenation after tube exchange. Critical Care Time (minutes): 45 Physical Exam Vital Signs: Vital Signs: Last Vital Signs Temp 99.7 F 04/18/23 11:00 Pulse 72 04/18/23 11:00 Resp 17 04/18/23 11:00 BP 119/67 04/18/23 11:00 Pulse Ox 93 04/18/23 11:00 O2 Del Method Mechanical Ventil ation 04/18/23 11:00 O2 Flow Rate 18 04/08/23 09:15 FiO2 60 04/18/23 11:00 BMI result Body Mass Index 28.2 Const: General: no acute distress and other ( sedated on the vent) Eyes: Sclerae: sclerae normal Pupils: Equal, round and reactive pupils present Neck: Neck: Yes no lymphadenopathy, Yes trachea midline and Yes supple Resp: Auscultation: clear to auscultation bilaterally Cardio: Rate: regular rate Rhythm: regular rhythm Heart sounds: no g allops, no murmurs and no rubs GI: Palpation (GI): Soft to palpation and Other GI palpation findings present ( Nontender) Auscultation: normal bowel sounds Neuro: Cranial nerves: Yes Equal, round and reactive pupils present Extrem: General: Yes no pedal edema, No clubbing and No cyanosis Objective Data Labs 04/18/23 05:25 04/18/23 05:25 Labs: Laboratory Results - last 24 hr 04/18/23 04/18/23 04/18/23 05:21 05:25 05:25 WBC 15.6 H RBC 3.98 L Hgb 12.0 L Hct 36.2 L MCV 91.0 MCH 30.2 MCHC 33.1 RDW 12.6 Plt Count 481 H MPV 9.8 Immature Gran % (Auto) 0.6 H Neut % (Auto) 81.2 H Lymph % (Auto) 8.7 L [place] % (Auto) 8.9 Eos % (Auto) 0.3 Baso % (Auto) 0.3 Lymph # (Auto) 1.4 [place] # (Auto) 1.4 H Eos # (Auto) 0.0 Baso # (Auto) 0.0 Abs Immat Gran (auto) 0.09 H Absolute Neuts (auto) 12.6 H Absolute Nucleated RBC 0.000 Nucleated RBC % (auto) 0.0 VBG pH 7.46 H VBG pCO2 43 VBG pO2 46 VBG HCO3 31 H VBG O2 Saturation 74.0 VBG Base Excess 6.9 Sodium 146 H Potassium 4.3 Chloride 109 H Carbon Dioxide 25 Anion Gap 16 BUN 33 H Creatinine 0.79 Estim Creat Clear Calc 159.1 Estimated GFR > 60 Random Glucose 112 Calcium 9.1 Phosphorus 4.1 Magnesium 2.3 Albumin 4.0 Microbiology Microbiology Results: Microbiology 04/17/23 04:39 Blood - Venous Blood Culture - Preliminary No growth after 24 hours. 04/17/23 04:39 Blood - Venous Blood Culture - Preliminary No growth after 24 hours. 04/08/23 09:07 Blood - Venous Blood Culture - Final No growth after 5 days. 04/08/23 09:08 Blood - Venous Blood Culture - Final No growth after 5 days. 04/08/23 Unknown Urine clean catch - Urine lomax top Urine Culture - Final No growth. Progress Note: A&P Assessment and plan (1) Anoxic encephalopathy: Status: Acute (2) Polysubstance abuse: Status: Acute (3) Acute respiratory failure: Status: Acute (4) Schizophrenia: Status: Acute Plan Assessment: 28-year-old gentleman admitted with respiratory failure and alteration of mental status likely secondary to aspiration pneumonitis, further complicated by acute renal failure with rhabdomyolysis, and left-sided pneumothorax Plan: Neuro: poor arousal with sedation vacation, MRI on 04/10/2023 with bilateral cerebral anoxic related findings. Likely underlying anoxic encephalopathy. Underlying polysubstance abuse. Neurology service care appreciated. Will continue with supportive measures as recommended. Some improvement in mental status with sedation vacation, but still no purposeful actions. If no further improvement over several days, will discuss tracheostomy and gastrostomy placement. Cardiac: 2D echocardiogram with normal ejection fraction, but wall motion abno rmalities, now on aspirin. Pulmonary: acute respiratory, likely secondary to aspiration pneumonitis on the background of binge alcohol consumption / polysubstance abuse. Now requiring ventilatory support, continue to titrate off as tolerated. Left-sided pneumothorax resolved. Renal: Acute renal failure with rhabdomyolysis, resolved after right gluteal fasciotomy. General surgery service care appreciated. Non oliguric. Continue to monitor renal indices, and urine output. Endo: No acute issues. GI: No acute issues. ID: No acute issues Heme/Onc: No acute issues. Psych: No acute issues. Miscellaneous: No acute issues. Prophylaxis: heparin, famotidine Diet: tube feeds Critical care time spent: 45 minutes Quality Stroke Does the patient have a stroke diagnosis?: No VTE Prior VTE?: No VTE Risk Level:: Medical - moderate - high VTE Device Contraindication: N/A - Device Ordered VTE Drug Contraindication: N/A - Med Ordered
[2023-04-18] MEDS: fentaNYL citrate/NS 1,000 MCG/100 ML PLAST..BAG 7.5 MCG IVCONT (19:33)
[2023-04-19] VITALS (39 sets, daily range): BP systolic 100–146; BP diastolic 55–77; PULSE 38–128; RESP 13–18; TEMP 33.8–38.4; O2SAT 93–98; BMI 28.4
--- NOTE | 2023-04-19 00:23 | PC.NURSE ---
CARE ASSUMED 23:15...REMAINS INTUBATED---PCV VENT SUPPORT---PROPOFOL AND FENTANYL DRIPS PER JAN--PER SHIFT REPORT PATIENT WITHOUT VOIDING--REQUIRED PREVIOUS STRAIGHT CATHS FOR BLADDER SCAN >500ml...LAST STRAIGHT CATH'D 7PM FOR 450ml...HNV SINCE 7PM...BLADDER SCANNED 374 & 375ml...EVANS INSERTED PER ICU WELDER ASSEMBLER AND 400ml YELLOW URINE OBTAINED
[2023-04-19] MEDS: propofoL 1,000 MG/100 ML VIAL 20.47 MG IVCONT ×3 (01:21→20:33)
[2023-04-19] MEDS: Heparin Sodium,Porcine 5,000 UNIT/ML VIAL 5000 UNIT SUBCUT ×3 (04:06→19:17)
[2023-04-19] MEDS: propofoL 1,000 MG/100 ML VIAL 15.35 MG IVCONT ×2 (05:06→11:24)
[2023-04-19 05:23] LABS: VBG Base Excess 6.5 mmol/L; VBG HCO3 31 mmol/L (22-26); VBG pCO2 47 mmHg; VBG pH 7.43 (7.32-7.43); VBG pO2 48 mmHg
[2023-04-19 05:30] LABS: MANUAL DIFF FLAG NO
[2023-04-19 05:33] LABS: Basophils Percent Auto 0.3 % (0-2); Eosinophils Absolute Auto 0.2 X10*3/uL (0.0-0.4); Eosinophils Percent Auto 1.1 % (0-4); Hematocrit 32.9 % (42.0-52.0); Hemoglobin 10.7 g/dl (14.0-18.0); Imm Gran Abs Auto 0.07 X10*3/uL (0.00-0.03); Imm Gran Pct Auto 0.5 % (0.0-0.4); Lymphocytes Absolute Auto 1.4 X10*3/uL (1.2-4.9); Lymphocytes Percent Auto 10.5 % (20-40); Mean Corpuscular HGB Conc 32.5 g/dl (31.0-36.0); Mean Corpuscular Hemoglobin 30.3 pg (27.0-33.0); Mean Corpuscular Volume 93.2 fL (80.0-98.0); Mean Platelet Volume 9.7 fL (9.4-12.4); Monocytes Percent Auto 7.1 % (2-11); Neutrophils Percent Auto 80.5 % (45-73); Platelet Count 426 X10*3/uL (160-400); Red Blood Count 3.53 X10*6/uL (4.60-5.80); Red Cell Distribution Width 12.8 % (11.0-16.0); White Blood Count 13.6 X10*3/uL (4.8-10.8)
[2023-04-19 05:53] LABS: Alanine Aminotransferase 93 U/L (0-40); Albumin Level 3.5 g/dL (3.5-5.0); Alkaline Phosphatase 100 U/L (39-117); Anion Gap 11 (12-20); Aspartate Amino Transferase 39 U/L (5-37); Bilirubin Total 0.6 mg/dL (0.0-1.0); Blood Urea Nitrogen 36 mg/dL (9-16); Calcium 8.5 mg/dL (8.4-10.2); Carbon Dioxide 27 mmol/L (22-29); Chloride 109 mmol/L (96-108); Creatinine Clr Calc Pharmacy 177.6; Estimated Glomerular Filt Rate > 60; Glucose Random 122 mg/dL (60-115); Magnesium 2.1 mg/dL (1.6-2.6); Phosphorus 3.7 mg/dL (2.7-4.5); Potassium 3.7 mmol/L (3.3-5.1); Sodium 143 mmol/L (135-145); Venous Blood Gas Refer to POC result
[2023-04-19] MEDS: DOPamine HCL/D5W 400 MG/250 ML PLAST..BAG 17.81 MG IVCONT ×2 (09:10→21:36)
[2023-04-19] MEDS: Chlorhexidine Gluc Oral Rinse 15 ML MOUTHWASH BUCCAL ×3 (09:12→20:34)
[2023-04-19] MEDS: Famotidine/PF 20 MG/2 ML VIAL IVPUSH (09:12)
[2023-04-19] MEDS: Aspirin 81 MG TAB.CHEW PO (09:12)
--- NOTE | 2023-04-19 09:44 | P.PNCC_ITS ---
Subjective Subjective Date of Service: 04/19/23 Interval History: 28-year-old gentleman with underlying history of schizophrenia alcohol use, marijuana use admitted on 04/08/2023 after he was noted to be unresponsive by his girlfriend for unclear amount of time with full min at the mouse. Patient was transported by EMS to emergency room where he was intubated for hypoxia and respiratory distress. On further evaluation patient with imaging finding of aspiration and left pneumothorax. Initial left mid axillary chest tube placed in emergency room with persistence of pneumothorax and questionable subdiaphragmatic placement. Chest tube removed and replaced with left midclavicular in 3rd intercostal space with air evacuation and improvement in pneumothorax. Patient also noted to have acute kidney injury and rhabdomyolysis and started on IV fluid hydration. He underwent right gluteal fasciotomy with significant improvement in his CPK and renal function. However, remains persi stently encephalopathic. MRI on 04/10/2023 with bilateral cerebral anoxic related encephalopathy. Evaluated by neurology with prognosis consider to be guarded, but not catastrophic. No events overnight. Critical Care Time (minutes): 45 Physical Exam Vital Signs: Vital Signs: Last Vital Signs Temp 99.7 F 04/19/23 09:00 Pulse 38 L 04/19/23 09:10 Resp 13 04/19/23 09:00 BP 112/60 04/19/23 09:10 Pulse Ox 97 04/19/23 09:00 O2 Del Method Mechanical Ventil ation 04/19/23 09:00 O2 Flow Rate 18 04/08/23 09:15 FiO2 40 04/19/23 09:13 BMI result Body Mass Index 28.4 Const: General: no acute distress and other (sedated on the vent) Eyes: Sclerae: sclerae normal Pupils: Equal, round and reactive pupils present Neck: Neck: Yes no lymphadenopathy, Yes trachea midline and Yes supple Resp: Auscultation: clear to auscultation bilaterally Cardio: Rate: regular rate Rhythm: regular rhythm Heart sounds: no gallops, no murmurs and no rubs GI: Palpation (GI): Soft to palpation and Other GI palpation findings present ( Nontender) Auscultation: normal bowel sounds Neuro: Cranial nerves: Yes Equal, round and reactive pupils present Extrem: General: Yes no pedal edema, No clubbing and No cyanosis Objective Data Labs 04/19/23 05:15 04/19/23 05:15 Labs: Laboratory Results - last 24 hr 04/19/23 04/19/23 04/19/23 05:13 05:15 05:15 WBC 13.6 H RBC 3.53 L Hgb 10.7 L Hct 32.9 L MCV 93.2 MCH 30.3 MCHC 32.5 RDW 12.8 Plt Count 426 H MPV 9.7 Immature Gran % (Auto) 0.5 H Neut % (Auto) 80.5 H Lymph % (Auto) 10.5 L [place] % (Auto) 7.1 Eos % (Auto) 1.1 Baso % (Auto) 0.3 Lymph # (Auto) 1.4 [place] # (Auto) 1.0 Eos # (Auto) 0.2 Baso # (Auto) 0.0 Abs Immat Gran (auto) 0.07 H Absolute Neuts (auto) 11.0 H Absolute Nucleated RBC 0.000 Nucleated RBC % (auto) 0.0 VBG pH 7.43 VBG pCO2 47 VBG pO2 48 VBG HCO3 31 H VBG O2 Saturation 78.0 VBG Base Excess 6.5 Sodium 143 Potassium 3.7 Chloride 109 H Carbon Dioxide 27 Anion Gap 11 L BUN 36 H Creatinine 0.71 Estim Creat Clear Calc 177.6 Estimated GFR > 60 Random Glucose 122 H Calcium 8.5 D Phosphorus 3.7 Magnesium 2.1 Total Bilirubin 0.6 AST 39 H ALT 93 H Alkaline Phosphatase 100 Total Protein 6.0 L Albumin 3.5 Microbiology Microbiology Results: Microbiology 04/17/23 04:39 Blood - Venous Blood Culture - Preliminary No growth after 48 hours. 04/17/23 04:39 Blood - Venous Blood Culture - Preliminary No growth after 48 hours. 04/08/23 09:07 Blood - Venous Blood Culture - Final No growth after 5 days. 04/08/23 09:08 Blood - Venous Blood Culture - Final No growth after 5 days. 04/08/23 Unknown Urine clean catch - Urine lomax top Urine Culture - Final No growth. Progress Note: A&P Assessment and plan (1) Anoxic encephalopathy: Status: Acute (2) Polysubstance abuse: Status: Acute (3) Acute respiratory failure: Status: Acute (4) Schizophrenia: Status: Acute Plan Assessment: 28-year-old gentleman admitted with respiratory failure and alteration of mental status likely secondary to aspiration pneumonitis, further complicated by acute renal failure with rhabdomyolysis, and left-sided pneumothorax Plan: Neuro: poor arousal with sedation vacation, MRI on 04/10/2023 with bilateral cerebral anoxic related findings. Likely underlying anoxic encephalopathy. Underlying polysubstance abuse. Neurology service care appreciated. Will continue with supportive measures as recommended. Some improvement in mental status with sedation vacation, but still no purposeful actions. If no further improvement over several days, will discuss tracheostomy and gastrostomy placement. Cardiac: 2D echocardiogram with normal ejection fraction, but wall motion abnor malities, now on aspirin. Pulmonary: acute respiratory, likely secondary to aspiration pneumonitis on the background of binge alcohol consumption / polysubstance abuse. Now requiring ventilatory support, continue to titrate off as tolerated. Left-sided pneumothorax resolved. Renal: Acute renal failure with rhabdomyolysis, resolved after right gluteal fasciotomy. General surgery service care appreciated. Non oliguric. Continue to monitor renal indices, and urine output. Endo: No acute issues. GI: No acute issues. ID: No acute issues Heme/Onc: No acute issues. Psych: No acute issues. Miscellaneous: No acute issues. Prophylaxis: heparin, famotidine Diet: tube feeds Critical care time spent: 45 minutes Quality Stroke Does the patient have a stroke diagnosis?: No VTE Prior VTE?: No VTE Risk Level:: Medical - moderate - high VTE Device Contraindication: N/A - Device Ordered VTE Drug Contraindication: N/A - Med Ordered
[2023-04-19] MEDS: fentaNYL citrate/NS 1,000 MCG/100 ML PLAST..BAG 2.5 MCG IVCONT (12:46)
[2023-04-19] MEDS: fentaNYL citrate/NS 1,000 MCG/100 ML PLAST..BAG 5 MCG IVCONT (23:33)
[2023-04-19] MEDS: Acetaminophen Oral Liquid 650 MG/20.3 ML SOLUTION PO (23:40)
[2023-04-20] VITALS (39 sets, daily range): BP systolic 108–140; BP diastolic 54–80; PULSE 54–100; RESP 3–25; TEMP 34.5–38.4; O2SAT 93–99; BMI 28.5
[2023-04-20] MEDS: propofoL 1,000 MG/100 ML VIAL 20.47 MG IVCONT ×3 (00:31→08:11)
[2023-04-20] MEDS: Heparin Sodium,Porcine 5,000 UNIT/ML VIAL 5000 UNIT SUBCUT ×3 (04:34→20:22)
[2023-04-20 05:21] LABS: VBG Base Excess 7.7 mmol/L; VBG HCO3 32 mmol/L (22-26); VBG pCO2 43 mmHg; VBG pH 7.47 (7.32-7.43); VBG pO2 52 mmHg
[2023-04-20 05:28] LABS: Venous Blood Gas Refer to POC result
[2023-04-20 06:06] LABS: MANUAL DIFF FLAG NO
[2023-04-20 06:34] LABS: Albumin Level 3.6 g/dL (3.5-5.0); Anion Gap 14 (12-20); Blood Urea Nitrogen 29 mg/dL (9-16); Calcium 8.7 mg/dL (8.4-10.2); Carbon Dioxide 25 mmol/L (22-29); Chloride 107 mmol/L (96-108); Creatinine Clr Calc Pharmacy 194.4; Estimated Glomerular Filt Rate > 60; Glucose Random 109 mg/dL (60-115); Magnesium 2.2 mg/dL (1.6-2.6); Phosphorus 4.1 mg/dL (2.7-4.5); Sodium 142 mmol/L (135-145)
[2023-04-20 07:10] LABS: Basophils Percent Auto 0.2 % (0-2); Eosinophils Absolute Auto 0.2 X10*3/uL (0.0-0.4); Eosinophils Percent Auto 1.3 % (0-4); Hematocrit 33.1 % (42.0-52.0); Hemoglobin 10.9 g/dl (14.0-18.0); Imm Gran Abs Auto 0.05 X10*3/uL (0.00-0.03); Imm Gran Pct Auto 0.4 % (0.0-0.4); Lymphocytes Absolute Auto 1.4 X10*3/uL (1.2-4.9); Lymphocytes Percent Auto 11.1 % (20-40); Mean Corpuscular HGB Conc 32.9 g/dl (31.0-36.0); Mean Corpuscular Hemoglobin 29.9 pg (27.0-33.0); Mean Corpuscular Volume 90.9 fL (80.0-98.0); Mean Platelet Volume 10.2 fL (9.4-12.4); Monocytes Absolute Auto 0.9 X10*3/uL (0.1-1.2); Monocytes Percent Auto 6.7 % (2-11); Neutrophils Absolute Auto 10.3 x10*3/uL (2.0-8.3); Neutrophils Percent Auto 80.3 % (45-73); Platelet Count 511 X10*3/uL (160-400); Red Blood Count 3.64 X10*6/uL (4.60-5.80); Red Cell Distribution Width 12.4 % (11.0-16.0); White Blood Count 12.8 X10*3/uL (4.8-10.8)
[2023-04-20] MEDS: Aspirin 81 MG TAB.CHEW PO (08:14)
[2023-04-20] MEDS: Chlorhexidine Gluc Oral Rinse 15 ML MOUTHWASH BUCCAL ×3 (08:14→20:23)
[2023-04-20] MEDS: Famotidine/PF 20 MG/2 ML VIAL IVPUSH (08:14)
[2023-04-20] MEDS: DOPamine HCL/D5W 400 MG/250 ML PLAST..BAG 35.63 MG IVCONT (09:35)
[2023-04-20] MEDS: Nystatin Powder 15 GM BOTTLE 1 APPL TOPICAL ×3 (09:46→20:31)
--- NOTE | 2023-04-20 10:06 | PM.CCPN ---
Subjective Subjective Date of Service: 04/20/23 Interval History: 28-year-old gentleman with underlying history of schizophrenia alcohol use, marijuana use admitted on 04/08/2023 after he was noted to be unresponsive by his girlfriend for unclear amount of time with full min at the mouse. Patient was transported by EMS to emergency room where he was intubated for hypoxia and respiratory distress. On further evaluation patient with imaging finding of aspiration and left pneumothorax. Initial left mid axillary chest tube placed in emergency room with persistence of pneumothorax and questionable subdiaphragmatic placement. Chest tube removed and replaced with left midclavicular in 3rd intercostal space with air evacuation and improvement in pneumothorax. Patient also noted to have acute kidney injury and rhabdomyolysis and started on IV fluid hydration. He underwent right gluteal fasciotomy with significant improvement in his CPK and renal function. However, remains persistently encephalopathic. MRI on 04/10/2023 with bilateral cerebral anoxic related encephalopathy. Evaluated by neurology with prognosis consider to be guarded, but not catastrophic. Very minimal improvement in neurologic status, still not purposeful. No events overnight. Critical Care Time (minutes): 45 Physical Exam Vital Signs: Vital Signs: Last Vital Signs Temp 100.9 F H 04/20/23 09:00 Pulse 79 04/20/23 09:40 Resp 15 04/20/23 09:00 BP 140/76 H 04/20/23 09:40 Pulse Ox 97 04/20/23 09:00 O2 Del Method Mechanical Ventil ation 04/20/23 09:00 O2 Flow Rate 18 04/08/23 09:15 FiO2 40 04/20/23 09:00 BMI result Body Mass Index 28.5 Const: General: no acute distress and other (sedated on the vent, poor arousal with sedation vacation) Eyes: Sclerae: sclerae normal Pupils: Equal, round and reactive pupils present Neck: Neck: Yes no lymphadenopathy, Yes trachea midline and Yes supple Resp: Auscultation: clear to auscultation bilaterally Cardio: Rate: regular rate Rhythm: regular rhythm Heart sounds: no gallops, no murmurs and no rubs GI: Palpation (GI): Soft to palpation and Other GI palpation findings present ( Nontender) Auscultation: normal bowel sounds Neuro: Cranial nerves: Yes Equal, round and reactive pupils present Extrem: General: Yes no pedal edema, No clubbing and No cyanosis Objective Data Labs 04/20/23 05:10 04/20/23 05:10 Labs: Laboratory Results - last 24 hr 04/20/23 04/20/23 04/20/23 05:10 05:10 05:11 WBC 12.8 H RBC 3.64 L Hgb 10.9 L Hct 33.1 L MCV 90.9 MCH 29.9 MCHC 32.9 RDW 12.4 Plt Count 511 H MPV 10.2 Immature Gran % (Auto) 0.4 Neut % (Auto) 80.3 H Lymph % (Auto) 11.1 L [place] % (Auto) 6.7 Eos % (Auto) 1.3 Baso % (Auto) 0.2 Lymph # (Auto) 1.4 [place] # (Auto) 0.9 Eos # (Auto) 0.2 Baso # (Auto) 0.0 Abs Immat Gran (auto) 0.05 H Absolute Neuts (auto) 10.3 H Absolute Nucleated RBC 0.000 Nucleated RBC % (auto) 0.0 VBG pH 7.47 H VBG pCO2 43 VBG pO2 52 VBG HCO3 32 H VBG O2 Saturation 83.0 VBG Base Excess 7.7 Sodium 142 Potassium 4.0 Chloride 107 Carbon Dioxide 25 Anion Gap 14 BUN 29 H Creatinine 0.65 Estim Creat Clear Calc 194.4 Estimated GFR > 60 Random Glucose 109 Calcium 8.7 Phosphorus 4.1 Magnesium 2.2 Albumin 3.6 Microbiology Microbiology Results: Microbiology 04/17/23 04:39 Blood - Venous Blood Culture - Preliminary No growth after 48 hours. 04/17/23 04:39 Blood - Venous Blood Culture - Preliminary No growth after 48 hours. 04/08/23 09:07 Blood - Venous Blood Culture - Final No growth after 5 days. 04/08/23 09:08 Blood - Venous Blood Culture - Final No growth after 5 days. 04/08/23 Unknown Urine clean catch - Urine lomax top Urine Culture - Final No growth. Progress Note: A&P Assessment and plan (1) Anoxic encephalopathy: Status: Acute (2) Polysubstance abuse: Status: Acute (3) Acute respiratory failure: Status: Acute (4) Schizophrenia: Status: Acute Plan Assessment: 28-year-old gentleman admitted with respiratory failure and alteration of mental status likely secondary to aspiration pneumonitis, further complicated by acute renal failure with rhabdomyolysis, and left-sided pneumothorax Plan: Neuro: poor arousal with sedation vacation, MRI on 04/10/2023 with bilateral cerebral anoxic related findings. Likely underlying anoxic encephalopathy. Underlying polysubstance abuse. Neurology service care appreciated. Will continue with supportive measures as recommended. Some improvement in mental status with sedation vacation, but still no purposeful actions. If no further improvement over several days, will discuss tracheostomy and gastrostomy placement. Cardiac: 2D echocardiogram with normal ejection fraction, but wall motion abnormalities, now on aspirin. Pulmonary: acute respiratory, likely secondary to aspiration pneumonitis on the background of binge alcohol consumption / polysubstance abuse. Now requiring ventilatory support, continue to titrate off as tolerated. Left-sided pneumothorax resolved. Renal: Acute renal failure with rhabdomyolysis, resolved after right gluteal fasciotomy. General surgery service care appreciated. Non oliguric. Continue to monitor renal indices, and urine output. Endo: No acute issues. GI: No acute issues. ID: No acute issues Heme/Onc: No acute issues. Psych: No acute issues. Miscellaneous: No acute issues. Prophylaxis: heparin, famotidine Diet: tube feeds Critical care time spent: 45 minutes Quality Stroke Does the patient have a stroke diagnosis?: No VTE Prior VTE?: No VTE Risk Level:: Medical - moderate - high VTE Device Contraindication: N/A - Device Ordered VTE Drug Contraindication: N/A - Med Ordered
--- NOTE | 2023-04-20 10:10 | MHC.CLN ---
F/U PT REMAINS INTUBATED AND SEDATED DISCUSSED AT ROUNDS WITH PT TOLERATING PROMOTE AT MAX GOAL RATE 65ML/HR WITH 240ML FWF Q 8 HRS PROVIDES 1560KCALS (2100KCALS WITH SEDATION; 26KCALS/KG CMW), 97.5G PROTEIN (1.1G/KG CMW), 2029ML TOTAL FLUID FROM FORMULA AND FLUSHES (24ML/KG CMW) CONTINUE TO MONITOR TOLERANCE, RESIDUALS AND LYTES AWAITING FAMILY TEAM MEETING TO DISCUSS GOALS OF CARE
--- NOTE | 2023-04-20 14:49 | MHC.CM.PN ---
Pt continues on ventilatory support in ICU: occasional extremity movement but not purposeful per care team. MD states he will initiate a call to pt's guardian about ROTARY OPERATOR versus peg and trach placement. Once pt's care plan is better known, CM will make referrals as needed - pt will likely need LTAC placement. CM to follow.
[2023-04-20] MEDS: propofoL 1,000 MG/100 ML VIAL 10.24 MG IVCONT ×2 (18:13→23:58)
[2023-04-20] MEDS: Acetaminophen Oral Liquid 650 MG/20.3 ML SOLUTION PO (19:15)
[2023-04-20] MEDS: fentaNYL citrate/NS 1,000 MCG/100 ML PLAST..BAG 2.5 MCG IVCONT (19:38)
[2023-04-20] MEDS: fentaNYL citrate/PF 100 MCG/2 ML VIAL IVPUSH (21:53)
[2023-04-21] VITALS (31 sets, daily range): BP systolic 106–137; BP diastolic 59–77; PULSE 31–102; RESP 15–19; TEMP 34.9–38; O2SAT 96–100; BMI 28.2
[2023-04-21] MEDS: Heparin Sodium,Porcine 5,000 UNIT/ML VIAL 5000 UNIT SUBCUT ×3 (03:43→19:26)
[2023-04-21] MEDS: fentaNYL citrate/PF 100 MCG/2 ML VIAL IVPUSH ×2 (03:50→20:33)
[2023-04-21] MEDS: propofoL 1,000 MG/100 ML VIAL 10.24 MG IVCONT ×3 (04:27→21:38)
[2023-04-21 05:10] LABS: MANUAL DIFF FLAG NO
[2023-04-21 05:13] LABS: Basophils Percent Auto 0.3 % (0-2); Eosinophils Absolute Auto 0.1 X10*3/uL (0.0-0.4); Eosinophils Percent Auto 0.9 % (0-4); Hematocrit 29.9 % (42.0-52.0); Imm Gran Abs Auto 0.06 X10*3/uL (0.00-0.03); Imm Gran Pct Auto 0.6 % (0.0-0.4); Lymphocytes Percent Auto 9.4 % (20-40); Mean Corpuscular HGB Conc 33.4 g/dl (31.0-36.0); Mean Corpuscular Hemoglobin 30.6 pg (27.0-33.0); Mean Corpuscular Volume 91.4 fL (80.0-98.0); Mean Platelet Volume 9.5 fL (9.4-12.4); Monocytes Absolute Auto 0.8 X10*3/uL (0.1-1.2); Neutrophils Absolute Auto 8.2 x10*3/uL (2.0-8.3); Neutrophils Percent Auto 80.8 % (45-73); Platelet Count 478 X10*3/uL (160-400); Red Blood Count 3.27 X10*6/uL (4.60-5.80); Red Cell Distribution Width 12.6 % (11.0-16.0); White Blood Count 10.2 X10*3/uL (4.8-10.8)
[2023-04-21 05:16] LABS: VBG Base Excess 5.2 mmol/L; VBG HCO3 29 mmol/L (22-26); VBG pCO2 39 mmHg; VBG pH 7.47 (7.32-7.43); VBG pO2 51 mmHg
[2023-04-21 05:19] LABS: Venous Blood Gas Refer to POC result
[2023-04-21 05:35] LABS: Albumin Level 3.5 g/dL (3.5-5.0); Anion Gap 11 (12-20); Blood Urea Nitrogen 29 mg/dL (9-16); Calcium 8.6 mg/dL (8.4-10.2); Carbon Dioxide 26 mmol/L (22-29); Chloride 109 mmol/L (96-108); Creatinine Clr Calc Pharmacy 199.5; Estimated Glomerular Filt Rate > 60; Glucose Random 124 mg/dL (60-115); Magnesium 2.1 mg/dL (1.6-2.6); Phosphorus 3.1 mg/dL (2.7-4.5); Potassium 3.8 mmol/L (3.3-5.1); Sodium 142 mmol/L (135-145)
--- NOTE | 2023-04-21 06:21 | PC.NURSE ---
Patient bradycardic into 30's overnight. Patient restarted on dopamine gtt per CURRICULUM ASSISTANT PRINCIPAL. Improvement in HR to 90's to low 100's, dopamine gtt since turned off and patient HR 70's. 0600 hour: Patient observed having episode of coughing, improved with suctioning, followed by episode of ? seizure like activity. CURRICULUM ASSISTANT PRINCIPAL present at bedside during this episode. Patient given 1mg IV versed per CURRICULUM ASSISTANT PRINCIPAL with +effect, no further activity noted.
[2023-04-21] MEDS: Midazolam HCl/PF 2 MG/2 ML VIAL 1 MG IVPUSH (06:25)
[2023-04-21] MEDS: Chlorhexidine Gluc Oral Rinse 15 ML MOUTHWASH BUCCAL ×3 (07:38→20:33)
[2023-04-21] MEDS: Aspirin 81 MG TAB.CHEW PO (07:38)
[2023-04-21] MEDS: Famotidine/PF 20 MG/2 ML VIAL IVPUSH (07:38)
[2023-04-21] MEDS: Nystatin Powder 15 GM BOTTLE 1 APPL TOPICAL ×3 (07:39→20:33)
--- NOTE | 2023-04-21 08:36 | PM.CCPN ---
Subjective Subjective Date of Service: 04/21/23 Interval History: 28-year-old gentleman with underlying history of schizophrenia alcohol use, marijuana use admitted on 04/08/2023 after he was noted to be unresponsive by his girlfriend for unclear amount of time with full min at the mouse. Patient was transported by EMS to emergency room where he was intubated for hypoxia and respiratory distress. On further evaluation patient with imaging finding of aspiration and left pneumothorax. Initial left mid axillary chest tube placed in emergency room with persistence of pneumothorax and questionable subdiaphragmatic placement. Chest tube removed and replaced with left midclavicular in 3rd intercostal space with air evacuation and improvement in pneumothorax. Patient also noted to have acute kidney injury and rhabdomyolysis and started on IV fluid hydration. He underwent right gluteal fasciotomy with significant improvement in his CPK and renal function. However, remains persistently encephalopathic. MRI on 04/10/2023 with bilateral cerebral anoxic related encephalopathy. Evaluated by neurology with prognosis consider to be guarded, but not catastrophic. overall or with slow neurologic improvement, now with some purposeful movement with sedation vacation. No events overnight. Critical Care Time (minutes): 45 Physical Exam Vital Signs: Vital Signs: Last Vital Signs Temp 99.5 F 04/21/23 08:00 Pulse 52 04/21/23 08:00 Resp 16 04/21/23 08:00 BP 112/60 04/21/23 08:00 Pulse Ox 96 04/21/23 08:00 O2 Del Method Mechanical Ventil ation 04/21/23 08:00 O2 Flow Rate 18 04/08/23 09:15 FiO2 40 04/21/23 08:00 BMI result Body Mass Index 28.2 Const: General: no acute distress and other ( Sedated on the vent) Eyes: Sclerae: sclerae normal Pupils: Equal, round and reactive pupils present Neck: Neck: Yes no lymphadenopathy, Yes trachea midline and Yes supple Resp: Auscultation: clear to auscultation bilaterally Cardio: Rate: regular rate Rhythm: regular rhythm Heart sounds: no gallops, no murmurs and no rubs GI: Palpation (GI): Soft to palpation and Other GI palpation findings present ( Nontender) Auscultation: normal bowel sounds Neuro: Cranial nerves: Yes Equal, round and reactive pupils present Extrem: General: Yes no pedal edema, No clubbing and No cyanosis Objective Data Labs 04/21/23 05:02 04/21/23 05:02 Labs: Laboratory Results - last 24 hr 04/21/23 04/21/23 04/21/23 05:02 05:02 05:10 WBC 10.2 RBC 3.27 L Hgb 10.0 L Hct 29.9 L MCV 91.4 MCH 30.6 MCHC 33.4 RDW 12.6 Plt Count 478 H MPV 9.5 Immature Gran % (Auto) 0.6 H Neut % (Auto) 80.8 H Lymph % (Auto) 9.4 L [place] % (Auto) 8.0 Eos % (Auto) 0.9 Baso % (Auto) 0.3 Lymph # (Auto) 1.0 L [place] # (Auto) 0.8 Eos # (Auto) 0.1 Baso # (Auto) 0.0 Abs Immat Gran (auto) 0.06 H Absolute Neuts (auto) 8.2 Absolute Nucleated RBC 0.000 Nucleated RBC % (auto) 0.0 VBG pH 7.47 H VBG pCO2 39 VBG pO2 51 VBG HCO3 29 H VBG O2 Saturation 85.0 VBG Base Excess 5.2 Sodium 142 Potassium 3.8 Chloride 109 H Carbon Dioxide 26 Anion Gap 11 L BUN 29 H Creatinine 0.63 Estim Creat Clear Calc 199.5 Estimated GFR > 60 Random Glucose 124 H Calcium 8.6 Phosphorus 3.1 Magnesium 2.1 Albumin 3.5 Microbiology Microbiology Results: Microbiology 04/17/23 04:39 Blood - Venous Blood Culture - Preliminary No growth after 48 hours. 04/17/23 04:39 Blood - Venous Blood Culture - Preliminary No growth after 48 hours. 04/08/23 09:07 Blood - Venous Blood Culture - Final No growth after 5 days. 04/08/23 09:08 Blood - Venous Blood Culture - Final No growth after 5 days. 04/08/23 Unknown Urine clean catch - Urine lomax top Urine Culture - Final No growth. Progress Note: A&P Assessment and plan (1) Anoxic encephalopathy: Status: Acute (2) Polysubstance abuse: Status: Acute (3) Acute respiratory failure: Status: Acute (4) Schizophrenia: Status: Acute Plan Assessment: 28-year-old gentleman admitted with respiratory failure and alteration of mental status likely secondary to aspiration pneumonitis, further complicated by acute renal failure with rhabdomyolysis, and left-sided pneumothorax Plan: Neuro: poor arousal with sedation vacation, MRI on 04/10/2023 with bilateral cerebral anoxic related findings. Likely underlying anoxic encephalopathy. Underlying polysubstance abuse. Neurology service care appreciated. Will continue with supportive measures as recommended. Some improvement in mental status with sedation vacation, with some purposeful actions. Discussion ongoing regarding tracheostomy and gastrostomy placement. Cardiac: 2D echocardiogram with normal ejection fraction, but wall motion abnormalities, now on aspirin. Pulmonary: acute respiratory, likely secondary to aspiration pneumonitis on the background of binge alcohol consumption / polysubstance abuse. Now requiring ventilatory support, continue to titrate off as tolerated. Left-sided pneumothorax resolved. Renal: Acute renal failure with rhabdomyolysis, resolved after right gluteal fasciotomy. General surgery service care appreciated. Non oliguric. Continue to monitor renal indices, and urine output. Endo: No acute issues. GI: No acute issues. ID: No acute issues Heme/Onc: No acute issues. Psych: No acute issues. Miscellaneous: No acute issues. Prophylaxis: heparin, famotidine Diet: tube feeds Critical care time spent: 45 minutes Quality Stroke Does the patient have a stroke diagnosis?: No VTE Prior VTE?: No VTE Risk Level:: Medical - moderate - high VTE Device Contraindication: N/A - Device Ordered VTE Drug Contraindication: N/A - Med Ordered
--- NOTE | 2023-04-21 10:06 | MHC.CM.PN ---
Pt continues care in ICU on ventilatory support making small but promising, neurological gains: yesterday responding to some commands. Plan for the day is a midline insertion and continued weaning attempts. Pt's guardian, Manuel Bowser updated by on 04/20 and will contact pt's family re: peg/trach needs. No procedure scheduled as of yet. Once pt has had the procedures, referrals for LTACH will be made. CM to follow.
--- NOTE | 2023-04-21 10:19 | P.CDIM_ITS ---
PROVIDER RESPONSE TEXT: To clarify, the appropriate diagnosis supported by the clinical indicators: Other (explain): Underlying wall motion abnormalities with no overt heart failure QUERY TEXT: PHYSICIAN'S DOCUMENTATION REQUEST Date of Query: 04/21/2023 09:45 AM EDT Patient Name: Freedom Schwartz Admit Date: 04/08/2023 Dear Chaim Mccullough, A review of the medical record indicates additional documentation may be needed. Please review below and update the documentation accordingly. Clinical Indicators: ICU Critical Care note 04/10: Revised assessment: Hypoxic respiratory failure? aspiration recurrent Pt x TN, CHF, Pulmonary edema. Possible fluid overload, crackles, extremities look 1+ pitting edema bilaterally upper and lower. IV Lasix 40mg, urine output has improved with Lasix given, diuresing well and urine now clear. Consult Echo Please provide further specificity regarding the most likely type and acuity of CHF you are evaluatin g, treating, or monitoring, ruled out etc. Systolic Please specify if Acute, Chronic, or Acute on chronic, or Unable to determine Diastolic Please specify if Acute, Chronic, or Acute on chronic, or Unable to determine Combined Systolic/Diastolic Please specify if Acute, Chronic, or Acute on chronic, or Unable to determine Other Other (explain)Clinically unable to determine (explain)Thank you, Teetee Suazo, CCS, CDIS Use of terms such as suspected, likely, concern for, or probable (associated with a specific diagnosi s that is being evaluated, monitored, or treated as if it exists) are acceptable and can be coded in the inpatient se tting, when documented at the time of discharge. Please use your independent medical judgment in providing your response. THIS QUERY IS PART OF THE PERMANENT MEDICAL RECORD
[2023-04-21] MEDS: fentaNYL citrate/NS 1,000 MCG/100 ML PLAST..BAG 5 MCG IVCONT (14:58)
--- NOTE | 2023-04-21 16:45 | HO.MIDLINE_ITS ---
Midline Insertion MIDLINE INSERTION Diagnosis: [ASPIRATION PNEUMONITIS] Indication: [ CHRONIC IV ACCESS PER DR LABOY ] Pertinent Labs: [REVIEWED] Technique: Using sterile technique including cap and mask, glove and drape, the [RIGHT] arm was prepped and draped in the usual sterile fashion of full barrier technique with CHG. Using ultrasound guidance, [RIGHT BASILIC] vein access was obtained ON SECOND ATTEMPT BY TEQUILA ESPITIA RN]. [91TE4JJ ST NON-PASV MIDLINE] was positioned. The procedure was performed in [RM 252]. Ultrasound was used to document vein patency and for needle entry. A formal ultrasound picture was recorded. [employer] Industrial Engineer has released the line for use and it is currently dressed with a StatLock, Tegaderm, and CHG disc. Verification has been performed for blood return and line patency. Arm Circumference: [30.5CM] Equipment: [POWERGLIDE ST MIDLINE] Catheter Type: [97LO4PC NON-PASV MIDLINE] Lot #: [[id number]]
[2023-04-22] VITALS (32 sets, daily range): BP systolic 106–131; BP diastolic 52–76; PULSE 43–64; RESP 15–21; TEMP 34.9–37.7; O2SAT 94–100; BMI 28.1
[2023-04-22] MEDS: propofoL 1,000 MG/100 ML VIAL 10.24 MG IVCONT ×2 (02:25→17:16)
[2023-04-22] MEDS: Heparin Sodium,Porcine 5,000 UNIT/ML VIAL 5000 UNIT SUBCUT ×3 (04:17→19:21)
[2023-04-22 04:46] LABS: VBG Base Excess -1.8 mmol/L; VBG HCO3 21 mmol/L (22-26); VBG pCO2 29 mmHg; VBG pH 7.46 (7.32-7.43); VBG pO2 65 mmHg
[2023-04-22 05:07] LABS: MANUAL DIFF FLAG NO
[2023-04-22 05:08] LABS: Basophils Percent Auto 0.3 % (0-2); Eosinophils Absolute Auto 0.1 X10*3/uL (0.0-0.4); Eosinophils Percent Auto 1.4 % (0-4); Hematocrit 29.7 % (42.0-52.0); Hemoglobin 9.9 g/dl (14.0-18.0); Imm Gran Abs Auto 0.04 X10*3/uL (0.00-0.03); Imm Gran Pct Auto 0.4 % (0.0-0.4); Lymphocytes Absolute Auto 1.3 X10*3/uL (1.2-4.9); Lymphocytes Percent Auto 14.2 % (20-40); Mean Corpuscular HGB Conc 33.3 g/dl (31.0-36.0); Mean Corpuscular Hemoglobin 30.8 pg (27.0-33.0); Mean Corpuscular Volume 92.5 fL (80.0-98.0); Mean Platelet Volume 9.8 fL (9.4-12.4); Monocytes Absolute Auto 0.8 X10*3/uL (0.1-1.2); Neutrophils Absolute Auto 6.7 x10*3/uL (2.0-8.3); Neutrophils Percent Auto 74.7 % (45-73); Platelet Count 488 X10*3/uL (160-400); Red Blood Count 3.21 X10*6/uL (4.60-5.80); Red Cell Distribution Width 12.8 % (11.0-16.0)
[2023-04-22 05:09] LABS: Venous Blood Gas Refer to POC result
[2023-04-22 05:25] LABS: Albumin Level 3.4 g/dL (3.5-5.0); Anion Gap 11 (12-20); Blood Urea Nitrogen 29 mg/dL (9-16); Calcium 8.7 mg/dL (8.4-10.2); Carbon Dioxide 26 mmol/L (22-29); Chloride 109 mmol/L (96-108); Creatinine Clr Calc Pharmacy 184.5; Estimated Glomerular Filt Rate > 60; Glucose Random 121 mg/dL (60-115); Magnesium 2.1 mg/dL (1.6-2.6); Phosphorus 3.2 mg/dL (2.7-4.5); Potassium 4.1 mmol/L (3.3-5.1); Sodium 142 mmol/L (135-145)
[2023-04-22] MEDS: Aspirin 81 MG TAB.CHEW PO (07:25)
[2023-04-22] MEDS: Famotidine/PF 20 MG/2 ML VIAL IVPUSH (07:25)
[2023-04-22] MEDS: Chlorhexidine Gluc Oral Rinse 15 ML MOUTHWASH BUCCAL ×3 (07:25→20:00)
[2023-04-22] MEDS: Nystatin Powder 15 GM BOTTLE 1 APPL TOPICAL ×3 (07:26→20:01)
--- NOTE | 2023-04-22 08:35 | P.PNCC_ITS ---
Subjective Subjective Date of Service: 04/22/23 Interval History: 28-year-old gentleman with underlying history of schizophrenia alcohol use, marijuana use admitted on 04/08/2023 after he was noted to be unresponsive by his girlfriend for unclear amount of time with full min at the mouse. Patient was transported by EMS to emergency room where he was intubated for hypoxia and respiratory distress. On further evaluation patient with imaging finding of aspiration and left pneumothorax. Initial left mid axillary chest tube placed in emergency room with persistence of pneumothorax and questionable subdiaphragmatic placement. Chest tube removed and replaced with left midclavicular in 3rd intercostal space with air evacuation and improvement in pneumothorax. Patient also noted to have acute kidney injury and rhabdomyolysis and started on IV fluid hydration. He underwent right gluteal fasciotomy with significant improvement in his CPK and renal function. However, remains persi stently encephalopathic. MRI on 04/10/2023 with bilateral cerebral anoxic related encephalopathy. Evaluated by neurology with prognosis consider to be guarded, but not catastrophic. overall or with slow neurologic improvement, now with some purposeful movement with sedation vacation. No events overnight. Critical Care Time (minutes): 45 Physical Exam Vital Signs: Vital Signs: Last Vital Signs Temp 99.3 F 04/22/23 08:00 Pulse 61 04/22/23 08:00 Resp 17 04/22/23 08:00 BP 125/76 04/22/23 08:00 Pulse Ox 98 04/22/23 08:00 O2 Del Method Mechanical Ventil ation 04/22/23 08:00 O2 Flow Rate 18 04/08/23 09:15 FiO2 30 04/22/23 08:24 BMI result Body Mass Index 28.1 Const: General: no acute distress and other (sedated on the vent) Eyes: Sclerae: sclerae normal Pupils: Equal, round and reactive pupils present Neck: Neck: Yes no lymphadenopathy, Yes trachea midline and Yes supple Resp: Auscultation: clear to auscultation bilaterally Cardio: Rate: regular rate Rhythm: regular rhythm Heart sounds: no gallops, no murmurs and no rubs GI: Palpation (GI): Soft to palpation and Other GI palpation findings present ( Nontender) Auscultation: normal bowel sounds Neuro: Cranial nerves: Yes Equal, round and reactive pupils present Extrem: General: Yes no pedal edema, No clubbing and No cyanosis Objective Data Labs 04/22/23 04:33 04/22/23 04:33 Labs: Laboratory Results - last 24 hr 04/22/23 04/22/23 04/22/23 04:33 04:33 04:37 WBC 9.0 RBC 3.21 L Hgb 9.9 L Hct 29.7 L MCV 92.5 MCH 30.8 MCHC 33.3 RDW 12.8 Plt Count 488 H MPV 9.8 Immature Gran % (Auto) 0.4 Neut % (Auto) 74.7 H Lymph % (Auto) 14.2 L [place] % (Auto) 9.0 Eos % (Auto) 1.4 Baso % (Auto) 0.3 Lymph # (Auto) 1.3 [place] # (Auto) 0.8 Eos # (Auto) 0.1 Baso # (Auto) 0.0 Abs Immat Gran (auto) 0.04 H Absolute Neuts (auto) 6.7 Absolute Nucleated RBC 0.000 Nucleated RBC % (auto) 0.0 VBG pH 7.46 H VBG pCO2 29 VBG pO2 65 VBG HCO3 21 L VBG O2 Saturation 91.0 VBG Base Excess -1.8 Sodium 142 Potassium 4.1 Chloride 109 H Carbon Dioxide 26 Anion Gap 11 L BUN 29 H Creatinine 0.68 Estim Creat Clear Calc 184.5 Estimated GFR > 60 Random Glucose 121 H Calcium 8.7 Phosphorus 3.2 Magnesium 2.1 Albumin 3.4 L Microbiology Microbiology Results: Microbiology 04/17/23 04:39 Blood - Venous Blood Culture - Final No growth after 5 days. 04/17/23 04:39 Blood - Venous Blood Culture - Final No growth after 5 days. 04/08/23 09:07 Blood - Venous Blood Culture - Final No growth after 5 days. 04/08/23 09:08 Blood - Venous Blood Culture - Final No growth after 5 days. 04/08/23 Unknown Urine clean catch - Urine lomax top Urine Culture - Final No growth. Progress Note: A&P Assessment and plan (1) Anoxic encephalopathy: Status: Acute (2) Polysubstance abuse: Status: Acute (3) Acute respiratory failure: Status: Acute (4) Schizophrenia: Status: Acute Plan Assessment: 28-year-old gentleman admitted with respiratory failure and alteration of mental status likely secondary to aspiration pneumonitis, further complicated by acute renal failure with rhabdomyolysis, and left-sided pneumothorax Plan: Neuro: poor arousal with sedation vacation, MRI on 04/10/2023 with bilateral cerebral anoxic related findings. Likely underlying anoxic encephalopathy. Underlying polysubstance abuse. Neurology service care appreciated. Will continue with supportive measures as recommended. Some improvement in mental status with sedation vacation, with some purposeful actions. Discussion ongoing regarding tracheostomy and gastrostomy placement. Cardiac: 2D echocardiogram with normal ejection fraction, but wall motion abnormalities, now on aspirin. Pulmonary: acute respiratory, likely secondary to aspiration pneumonitis on the background of binge alcohol consumption / polysubstance abuse. Now requiring ventilatory support, continue to titrate off as tolerated. Left-sided pn eumothorax resolved. Renal: Acute renal failure with rhabdomyolysis, resolved after right gluteal fasciotomy. General surgery service care appreciated. Non oliguric. Continue to monitor renal indices, and urine output. Endo: No acute issues. GI: No acute issues. ID: No acute issues Heme/Onc: No acute issues. Psych: No acute issues. Miscellaneous: No acute issues. Prophylaxis: heparin, famotidine Diet: tube feeds Critical care time spent: 45 minutes Quality Stroke Does the patient have a stroke diagnosis?: No VTE Prior VTE?: No VTE Risk Level:: Medical - moderate - high VTE Device Contraindication: N/A - Device Ordered VTE Drug Contraindication: N/A - Med Ordered
[2023-04-22] MEDS: fentaNYL citrate/NS 1,000 MCG/100 ML PLAST..BAG 5 MCG IVCONT (09:39)
--- NOTE | 2023-04-22 10:46 | MHC.CLN ---
F/U PT REMAINS INTUBATED REVIEWED LABS PT TOLERATING PROMOTE AT MAX GOAL RATE 65ML/HR WITH 30ML PROSOURCE AND 240ML FWF Q 8 HRS PROVIDES 1620KCALS (22KCALS/KG BASED ON IBW), 112.5G PROTEIN (1.4G/KG CMW), 2029ML TOTAL FLUID FROM FORMULA AND FLUSHES (24ML/KG CMW) TOLERATING TF WELL PER NSG CONTINUE TO MONITOR TOLERANCE, RESIDUALS AND LYTES AWAITING FAMILY TEAM MEETING TO DISCUSS GOALS OF CARE
[2023-04-22] MEDS: fentaNYL citrate/PF 100 MCG/2 ML VIAL IVPUSH ×2 (15:27→19:21)
--- NOTE | 2023-04-22 15:44 | MHC.CM.PN ---
PT REMAINS IN ICU ON VENTILATORY SUPPORT. PLAN FOR DAY TO ATTEMPT SEDATION VACATION. DC PLAN /NEEDS TO BE DETERMINED. CM WILL CONTINUE TO FOLLOW HOSPITAL COURSE.
[2023-04-23] VITALS (28 sets, daily range): BP systolic 99–125; BP diastolic 52–81; PULSE 42–71; RESP 14–98; TEMP 35–37.8; O2SAT 93–99; BMI 28.0
[2023-04-23] MEDS: propofoL 1,000 MG/100 ML VIAL 10.24 MG IVCONT ×2 (00:05→06:15)
[2023-04-23] MEDS: Heparin Sodium,Porcine 5,000 UNIT/ML VIAL 5000 UNIT SUBCUT ×3 (03:07→19:37)
[2023-04-23] MEDS: fentaNYL citrate/NS 1,000 MCG/100 ML PLAST..BAG 5 MCG IVCONT (03:10)
[2023-04-23] MEDS: fentaNYL citrate/PF 100 MCG/2 ML VIAL IVPUSH (03:20)
[2023-04-23 05:01] LABS: MANUAL DIFF FLAG NO
[2023-04-23 05:04] LABS: VBG Base Excess 2.3 mmol/L; VBG HCO3 24 mmol/L (22-26); VBG pCO2 29 mmHg; VBG pH 7.52 (7.32-7.43); VBG pO2 90 mmHg; Venous Blood Gas Refer to POC result
[2023-04-23 05:07] LABS: Basophils Percent Auto 0.6 % (0-2); Eosinophils Absolute Auto 0.2 X10*3/uL (0.0-0.4); Eosinophils Percent Auto 2.1 % (0-4); Hematocrit 29.7 % (42.0-52.0); Hemoglobin 9.8 g/dl (14.0-18.0); Imm Gran Abs Auto 0.02 X10*3/uL (0.00-0.03); Imm Gran Pct Auto 0.3 % (0.0-0.4); Lymphocytes Absolute Auto 1.4 X10*3/uL (1.2-4.9); Mean Corpuscular Volume 90.8 fL (80.0-98.0); Mean Platelet Volume 9.4 fL (9.4-12.4); Monocytes Absolute Auto 0.7 X10*3/uL (0.1-1.2); Monocytes Percent Auto 10.1 % (2-11); Neutrophils Absolute Auto 4.8 x10*3/uL (2.0-8.3); Neutrophils Percent Auto 66.9 % (45-73); Platelet Count 430 X10*3/uL (160-400); Red Blood Count 3.27 X10*6/uL (4.60-5.80); Red Cell Distribution Width 12.9 % (11.0-16.0); White Blood Count 7.1 X10*3/uL (4.8-10.8)
[2023-04-23 05:27] LABS: Albumin Level 3.4 g/dL (3.5-5.0); Anion Gap 13 (12-20); Blood Urea Nitrogen 27 mg/dL (9-16); Calcium 8.8 mg/dL (8.4-10.2); Carbon Dioxide 22 mmol/L (22-29); Chloride 108 mmol/L (96-108); Creatinine Clr Calc Pharmacy 187.3; Estimated Glomerular Filt Rate > 60; Glucose Random 111 mg/dL (60-115); Magnesium 2.1 mg/dL (1.6-2.6); Phosphorus 3.8 mg/dL (2.7-4.5); Potassium 3.9 mmol/L (3.3-5.1); Sodium 139 mmol/L (135-145)
[2023-04-23] MEDS: Chlorhexidine Gluc Oral Rinse 15 ML MOUTHWASH BUCCAL ×3 (08:06→22:05)
[2023-04-23] MEDS: Famotidine/PF 20 MG/2 ML VIAL IVPUSH (08:06)
[2023-04-23] MEDS: Nystatin Powder 15 GM BOTTLE 1 APPL TOPICAL ×3 (08:06→22:06)
[2023-04-23] MEDS: Aspirin 81 MG TAB.CHEW PO (08:06)
--- NOTE | 2023-04-23 08:42 | P.PNCC_ITS ---
Subjective Subjective Date of Service: 04/23/23 Interval History: 28-year-old gentleman with underlying history of schizophrenia alcohol use, marijuana use admitted on 04/08/2023 after he was noted to be unresponsive by his girlfriend for unclear amount of time with full min at the mouse. Patient was transported by EMS to emergency room where he was intubated for hypoxia and respiratory distress. On further evaluation patient with imaging finding of aspiration and left pneumothorax. Initial left mid axillary chest tube placed in emergency room with persistence of pneumothorax and questionable subdiaphragmatic placement. Chest tube removed and replaced with left midclavicular in 3rd intercostal space with air evacuation and improvement in pneumothorax. Patient also noted to have acute kidney injury and rhabdomyolysis and started on IV fluid hydration. He underwent right gluteal fasciotomy with significant improvement in his CPK and renal function. However, remains persi stently encephalopathic. MRI on 04/10/2023 with bilateral cerebral anoxic related encephalopathy. Evaluated by neurology with prognosis consider to be guarded, but not catastrophic. overall or with slow neurologic improvement, now with some purposeful movement with sedation vacation. No events overnight. Critical Care Time (minutes): 45 Physical Exam Vital Signs: Vital Signs: Last Vital Signs Temp 98.1 F 04/23/23 08:00 Pulse 46 L 04/23/23 08:00 Resp 16 04/23/23 08:00 BP 110/56 L 04/23/23 08:00 Pulse Ox 97 04/23/23 08:00 O2 Del Method Mechanical Ventil ation 04/23/23 08:00 O2 Flow Rate 18 04/08/23 09:15 FiO2 30 04/23/23 08:00 BMI result Body Mass Index 28.0 Const: General: no acute distress and other ( sedated on the vent) Eyes: Sclerae: sclerae normal EOM: EOMs intact bilaterally Neck: Neck: Yes no lymphadenopathy, Yes trachea midline and Yes supple Resp: Auscultation: clear to auscultation bilaterally Cardio: Rate: bradycardic Rhythm: regular rhythm Heart sounds: no gallops, no murmurs and no rubs GI: Palpation (GI): Soft to palpation and Other GI palpation findings present ( Nontender) Auscultation: normal bowel sounds Extrem: General: Yes no pedal edema, No clubbing and No cyanosis Objective Data Labs 04/23/23 04:55 04/23/23 04:55 Labs: Laboratory Results - last 24 hr 04/23/23 04/23/23 04/23/23 04:55 04:55 04:55 WBC 7.1 RBC 3.27 L Hgb 9.8 L Hct 29.7 L MCV 90.8 MCH 30.0 MCHC 33.0 RDW 12.9 Plt Count 430 H MPV 9.4 Immature Gran % (Auto) 0.3 Neut % (Auto) 66.9 Lymph % (Auto) 20.0 [place] % (Auto) 10.1 Eos % (Auto) 2.1 Baso % (Auto) 0.6 Lymph # (Auto) 1.4 [place] # (Auto) 0.7 Eos # (Auto) 0.2 Baso # (Auto) 0.0 Abs Immat Gran (auto) 0.02 Absolute Neuts (auto) 4.8 Absolute Nucleated RBC 0.000 Nucleated RBC % (auto) 0.0 VBG pH 7.52 H VBG pCO2 29 VBG pO2 90 VBG HCO3 24 VBG O2 Saturation 98.0 VBG Base Excess 2.3 Sodium 139 Potassium 3.9 Chloride 108 Carbon Dioxide 22 Anion Gap 13 BUN 27 H Creatinine 0.67 Estim Creat Clear Calc 187.3 Estimated GFR > 60 Random Glucose 111 Calcium 8.8 Phosphorus 3.8 Magnesium 2.1 Albumin 3.4 L Microbiology Microbiology Results: Microbiology 04/17/23 04:39 Blood - Venous Blood Culture - Final No growth after 5 days. 04/17/23 04:39 Blood - Venous Blood Culture - Final No growth after 5 days. 04/08/23 09:07 Blood - Venous Blood Culture - Final No growth after 5 days. 04/08/23 09:08 Blood - Venous Blood Culture - Final No growth after 5 days. 04/08/23 Unknown Urine clean catch - Urine lomax top Urine Culture - Final No growth. Progress Note: A&P Assessment and plan (1) Anoxic encephalopathy: Status: Acute (2) Polysubstance abuse: Status: Acute (3) Acute respiratory failure: Status: Acute (4) Schizophrenia: Status: Acute Plan Assessment: 28-year-old gentleman admitted with respiratory failure and alter ation of mental status likely secondary to aspiration pneumonitis, further complicated by acute renal failure with rhabdomyolysis, and left-sided pneumothorax Plan: Neuro: poor arousal with sedation vacation, MRI on 04/10/2023 with bilateral cerebral anoxic related findings. Likely underlying anoxic encephalopathy. Underlying polysubstance abuse. Neurology service care appreciated. Will co ntinue with supportive measures as recommended. Some improvement in mental status with sedation vacation, with some purposeful actions. Discussion ongoing regarding tracheostomy and gastrostomy placement. Cardiac: 2D echocardiogram with normal ejection fraction, but wall motion abnormalities, now on aspirin. Pulmonary: acute respiratory, likely secondary to aspiration pneumonitis on the background of binge alcohol consumption / polysubstance abuse. Now requiring ventilatory support, continue to titrate off as tolerated. Left-sided pneumothorax resolved. Renal: Acute renal failure with rhabdomyolysis, resolved after right gluteal fasciotomy. General surgery service care appreciated. Non oliguric. Continue to monitor renal indices, and urine output. Endo: No acute issues. GI: No acute issues. ID: No acute issues Heme/Onc: No acute issues. Psych: No acute issues. Miscellaneous: No acute issues. Prophylaxis: heparin, famotidine Diet: tube feeds Critical care time spent: 45 minutes Quality Stroke Does the patient have a stroke diagnosis?: No VTE Prior VTE?: No VTE Risk Level:: Medical - moderate - high VTE Device Contraindication: N/A - Device Ordered VTE Drug Contraindication: N/A - Med Ordered
--- NOTE | 2023-04-23 11:54 | MHC.CM.PN ---
Pt continues care in ICU: discussed peg/trach plan w/pt's guardian, Dickson Lucasrogelio who is in the process of speaking w/pt's mother and sister about next steps. No surgical date has been scheduled as of yet but it is almost certain that family and guardian will opt for procedure. Once this occurs, d/c planning will shift to LTACH referrals: Pt has [place] Medicaid and will likely have to remain in [place] for placement severely limiting options to [facility] only. CM l/m for [place] re: verify guardianship ability to place in facility. CM to follow.
[2023-04-24] VITALS (25 sets, daily range): BP systolic 111–131; BP diastolic 66–85; PULSE 53–90; RESP 12–23; TEMP 36–37.5; O2SAT 92–96; BMI 27.5
[2023-04-24] MEDS: Heparin Sodium,Porcine 5,000 UNIT/ML VIAL 5000 UNIT SUBCUT ×3 (03:45→20:54)
[2023-04-24 05:24] LABS: VBG Base Excess 0.3 mmol/L; VBG HCO3 22 mmol/L (22-26); VBG pCO2 29 mmHg; VBG pH 7.49 (7.32-7.43); VBG pO2 82 mmHg
[2023-04-24 05:52] LABS: MANUAL DIFF FLAG NO
[2023-04-24 05:54] LABS: Basophils Percent Auto 0.7 % (0-2); Eosinophils Absolute Auto 0.1 X10*3/uL (0.0-0.4); Hematocrit 32.8 % (42.0-52.0); Hemoglobin 11.1 g/dl (14.0-18.0); Imm Gran Abs Auto 0.01 X10*3/uL (0.00-0.03); Imm Gran Pct Auto 0.2 % (0.0-0.4); Lymphocytes Absolute Auto 0.8 X10*3/uL (1.2-4.9); Lymphocytes Percent Auto 13.6 % (20-40); Mean Corpuscular HGB Conc 33.8 g/dl (31.0-36.0); Mean Corpuscular Hemoglobin 30.2 pg (27.0-33.0); Mean Corpuscular Volume 89.1 fL (80.0-98.0); Mean Platelet Volume 9.9 fL (9.4-12.4); Monocytes Absolute Auto 0.7 X10*3/uL (0.1-1.2); Monocytes Percent Auto 10.9 % (2-11); Neutrophils Absolute Auto 4.5 x10*3/uL (2.0-8.3); Neutrophils Percent Auto 73.6 % (45-73); Platelet Count 512 X10*3/uL (160-400); Red Blood Count 3.68 X10*6/uL (4.60-5.80); Red Cell Distribution Width 12.6 % (11.0-16.0)
[2023-04-24 06:02] LABS: Venous Blood Gas Refer to POC result
[2023-04-24 06:11] LABS: Albumin Level 3.8 g/dL (3.5-5.0); Anion Gap 13 (12-20); Blood Urea Nitrogen 22 mg/dL (9-16); Calcium 9.2 mg/dL (8.4-10.2); Carbon Dioxide 22 mmol/L (22-29); Chloride 106 mmol/L (96-108); Creatinine Clr Calc Pharmacy 181.8; Estimated Glomerular Filt Rate > 60; Glucose Random 107 mg/dL (60-115); Magnesium 2.3 mg/dL (1.6-2.6); Phosphorus 4.3 mg/dL (2.7-4.5); Potassium 4.4 mmol/L (3.3-5.1); Sodium 137 mmol/L (135-145)
[2023-04-24] MEDS: Nystatin Powder 15 GM BOTTLE 1 APPL TOPICAL ×3 (08:38→20:54)
--- NOTE | 2023-04-24 08:39 | P.PNCC_ITS ---
Subjective Subjective Date of Service: 04/24/23 Interval History: 28-year-old gentleman with underlying history of schizophrenia alcohol use, marijuana use admitted on 04/08/2023 after he was noted to be unresponsive by his girlfriend for unclear amount of time with full min at the mouse. Patient was transported by EMS to emergency room where he was intubated for hypoxia and respiratory distress. On further evaluation patient with imaging finding of aspiration and left pneumothorax. Initial left mid axillary chest tube placed in emergency room with persistence of pneumothorax and questionable subdiaphragmatic placement. Chest tube removed and replaced with left midclavicular in 3rd intercostal space with air evacuation and improvement in pneumothorax. Patient also noted to have acute kidney injury and rhabdomyolysis and started on IV fluid hydration. He underwent right gluteal fasciotomy with significant improvement in his CPK and renal function. However, remains persi stently encephalopathic. MRI on 04/10/2023 with bilateral cerebral anoxic related encephalopathy. Evaluated by neurology with prognosis consider to be guarded, but not catastrophic. Overall or with slow neurologic improvement, With significant improvement on 04/23/2023, following commands with some delay, able to be extubated on 04/23/2023. No events overnight. Critical Care Time (minutes): 0 Physical Exam Vital Signs: Vital Signs: Last Vital Signs Temp 98.1 F 04/24/23 08:00 Pulse 57 04/24/23 08:00 Resp 20 04/24/23 08:00 BP 121/70 04/24/23 08:00 Pulse Ox 93 04/24/23 08:00 O2 Del Method Room Air 04/24/23 08:00 O2 Flow Rate 18 04/08/23 09:15 FiO2 30 04/23/23 11:00 BMI result Body Mass Index 27.5 Const: General: no acute distress, alert, awake and other ( Slowly follows commands) Eyes: Sclerae: sclerae normal EOM: EOMs intact bilaterally Neck: Neck: Yes no lymphadenopathy, Yes trachea midline and Yes supple Resp: Effort & Inspection: normal respiratory effort and no respiratory distress Auscultation: clear to auscultation bilaterally Cardio: Rate: regular rate Rhythm: regular rhythm Heart sounds: no gallops, no murmurs and no rubs GI: Palpation (GI): Soft to palpation and Other GI palpation findings present ( Nontender) Auscultation: normal bowel sounds Extrem: General: Yes no pedal edema, No clubbing and No cyanosis Objective Data Labs 04/24/23 05:15 04/24/23 05:15 Labs: Laboratory Results - last 24 hr 04/24/23 04/24/23 04/24/23 05:15 05:15 05:16 WBC 6.0 RBC 3.68 L Hgb 11.1 L Hct 32.8 L MCV 89.1 MCH 30.2 MCHC 33.8 RDW 12.6 Plt Count 512 H MPV 9.9 Immature Gran % (Auto) 0.2 Neut % (Auto) 73.6 H Lymph % (Auto) 13.6 L [place] % (Auto) 10.9 Eos % (Auto) 1.0 Baso % (Auto) 0.7 Lymph # (Auto) 0.8 L [place] # (Auto) 0.7 Eos # (Auto) 0.1 Baso # (Auto) 0.0 Abs Immat Gran (auto) 0.01 Absolute Neuts (auto) 4.5 Absolute Nucleated RBC 0.000 Nucleated RBC % (auto) 0.0 VBG pH 7.49 H VBG pCO2 29 VBG pO2 82 VBG HCO3 22 VBG O2 Saturation 96.0 VBG Base Excess 0.3 Sodium 137 Potassium 4.4 Chloride 106 Carbon Dioxide 22 Anion Gap 13 BUN 22 H Creatinine 0.69 Estim Creat Clear Calc 181.8 Estimated GFR > 60 Random Glucose 107 Calcium 9.2 Phosphorus 4.3 Magnesium 2.3 Albumin 3.8 Microbiology Microbiology Results: Microbiology 04/17/23 04:39 Blood - Venous Blood Culture - Final No growth after 5 days. 04/17/23 04:39 Blood - Venous Blood Culture - Final No growth after 5 days. 04/08/23 09:07 Blood - Venous Blood Culture - Final No growth after 5 days. 04/08/23 09:08 Blood - Venous Blood Culture - Final No growth after 5 days. 04/08/23 Unknown Urine clean catch - Urine lomax top Urine Culture - Final No growth. Progress Note: A&P Assessment and plan (1) Anoxic encephalopathy: Status: Acute (2) Polysubstance abuse: Status: Acute (3) Schizophrenia: Status: Acute Plan Assessment: 28-year-old gentleman admitted with respiratory failure and alteration of mental status likely secondary to aspiration pneumonitis, further complicated by acute renal failure with rhabdomyolysis, and left-sided pn eumothorax Plan: Neuro: poor arousal with sedation vacation, MRI on 04/10/2023 with bilateral cerebral anoxic related findings. Likely underlying anoxic encephalopathy. Underlying polysubstance abuse. Neurology service care appreciated. Will continue with supportive measures as recommended. Some improvement in mental status with following commands on 04/23/2023 and able to be extubated. Though, still with significant encephalopathy. Cardiac: 2D echocardiogram with normal ejection fraction, but wall motion abnormalities, now on aspirin. Pulmonary: acute respiratory, likely secondary to aspiration pneumonitis on the background of binge alcohol consumption / polysubstance abuse , resolved. Extubated 04/23/2023. Renal: Acute renal failure with rhabdomyolysis, resolved after right gluteal fasciotomy. General surgery service care appreciated. Non oliguric. Continue to monitor renal indices, and urine output. Endo: No acute issues. GI: No acute issues. ID: No acute issues Heme/Onc: No acute issues. Psych: No acute issues. Miscellaneous: No acute issues. Prophylaxis: heparin Diet: pending swallow evaluation Quality Stroke Does the patient have a stroke diagnosis?: No VTE Prior VTE?: No VTE Risk Level:: Medical - moderate - high VTE Device Contraindication: N/A - Device Ordered VTE Drug Contraindication: N/A - Med Ordered
--- NOTE | 2023-04-24 10:23 | MHC.CLN ---
F/U DISCUSSED AT ROUNDS WITH PT EXTUBATED 04/23 PT NPO PENDING SWALLOW EVAL AWAITING GROUND INTELLIGENCE OFFICER FOR DIET RECOMMENDATIONS WHEN DIET TO ADVANCE, RECOMMEND ADDING HIGH PO PROTEIN SUPPLEMENTS TO PROMOTE WOUND HEALING ENSURE BID TO PROVIDE 700KCALS, 40G PROTEIN WITH 100% ACCEPTANCE FOLLOWING WITH TEAM
[2023-04-24] MEDS: Aspirin 81 MG TAB.CHEW PO (11:36)
--- NOTE | 2023-04-24 13:16 | MHC.SL.SWA ---
Speech Pathologist Impression: Risk of aspiration, oral phase dysphagia Risk of Aspiration Due to: Hx of Recent Extubation Dysphasia Diet Status: Upgrade, start on NDD2/thin (currently on TF) Liquid Consistency and Strategies for Safe Swallow: Liquid Intake Recommendation: Thin Liquid Intake Strategies: Small Sips No Straws Solid Food Consistency: Dietary Recommendations: Grnd/Mech Altered (NDD2) Additional Modifications to Solid Foods: Recommend START on GROUND/MECH ALTERED (NDD2) diet with THIN liquids (no straw), pills CRUSHED in PUREE. Pt requires total 1:1 assistance feeding. Ensure mouth is cleared before presenting more bites, alternate with sips of liquid as needed to promote oral clearance. Advised care team (MD, RN, RD) via [facility]. Diet order updated by MD. MEDICAL CARE MANAGER will continue to follow to monitor tolerance and re-assess for potential upgrade as appropriate. Oral Medication Intake: Crushed with Puree Please contact the pharmacy regarding appropriate crushable or liquid drug formulations that are available whenever modified delivery is recommended. Compensatory Strategies and Precautions to be Taken for Safe Swallow: Sitting Upright (90 deg) Double Swallow No Straw Small Bites and Sips Alternate Liquids/Solids Rate of Ingestion Change Oral Check Avoid Specific Foods Supervision While Eating and Drinking for Safe Swallow: Total Assistance (1:1) Swallowing Recommended Treatments: Compens. Strategy Educat. Recommendation for Speech: Inpatient Speech Therapy Manager Perioperative Clinican/Clinical Fellow: No Supervisory Statement: I have reviewed and agree with the student/clinical fellow's documentation: N/A Speech Language Pathologist: Latha Conde M.A., CCC-MEDICAL CARE MANAGER
--- NOTE | 2023-04-24 15:42 | MHC.CM.PN ---
EMR REVIEWED. PT REMAINS IN ICU. EXTUBATED 04/23 AND MAKING SLOW BUT + GAINS. CM WILL CONTINUE TO FOLLOW FOR DC NEEDS/PLANS
[2023-04-24] MEDS: Lactulose 20 GM/30 ML SOLUTION PO (20:54)
[2023-04-25] VITALS (18 sets, daily range): BP systolic 105–137; BP diastolic 57–86; PULSE 51–87; RESP 15–22; TEMP 36–36.8; O2SAT 92–98; BMI 26.4
[2023-04-25] MEDS: Heparin Sodium,Porcine 5,000 UNIT/ML VIAL 5000 UNIT SUBCUT ×3 (04:10→19:28)
[2023-04-25 05:46] LABS: VBG HCO3 23 mmol/L (22-26); VBG pCO2 32 mmHg; VBG pH 7.47 (7.32-7.43); VBG pO2 58 mmHg
[2023-04-25 05:48] LABS: Venous Blood Gas Refer to POC result
[2023-04-25 05:58] LABS: MANUAL DIFF FLAG NO
[2023-04-25 06:01] LABS: Basophils Percent Auto 0.2 % (0-2); Eosinophils Percent Auto 0.2 % (0-4); Hematocrit 34.7 % (42.0-52.0); Hemoglobin 11.6 g/dl (14.0-18.0); Imm Gran Abs Auto 0.07 X10*3/uL (0.00-0.03); Imm Gran Pct Auto 0.5 % (0.0-0.4); Lymphocytes Percent Auto 7.7 % (20-40); Mean Corpuscular HGB Conc 33.4 g/dl (31.0-36.0); Mean Corpuscular Hemoglobin 29.7 pg (27.0-33.0); Mean Platelet Volume 9.4 fL (9.4-12.4); Monocytes Absolute Auto 1.4 X10*3/uL (0.1-1.2); Monocytes Percent Auto 10.4 % (2-11); Neutrophils Absolute Auto 10.6 x10*3/uL (2.0-8.3); Platelet Count 510 X10*3/uL (160-400); Red Cell Distribution Width 12.9 % (11.0-16.0); White Blood Count 13.1 X10*3/uL (4.8-10.8)
[2023-04-25 06:18] LABS: Albumin Level 3.9 g/dL (3.5-5.0); Anion Gap 13 (12-20); Blood Urea Nitrogen 24 mg/dL (9-16); Calcium 9.3 mg/dL (8.4-10.2); Carbon Dioxide 23 mmol/L (22-29); Chloride 105 mmol/L (96-108); Creatinine Clr Calc Pharmacy 158.3; Estimated Glomerular Filt Rate > 60; Glucose Random 110 mg/dL (60-115); Magnesium 2.2 mg/dL (1.6-2.6); Phosphorus 4.1 mg/dL (2.7-4.5); Potassium 4.4 mmol/L (3.3-5.1); Sodium 137 mmol/L (135-145)
[2023-04-25] MEDS: Aspirin 81 MG TAB.CHEW PO (09:17)
[2023-04-25] MEDS: Nystatin Powder 15 GM BOTTLE 1 APPL TOPICAL ×3 (09:18→21:52)
--- NOTE | 2023-04-25 10:07 | PM.CCPN ---
Subjective Subjective Date of Service: 04/25/23 Interval History: 28-year-old gentleman with underlying history of schizophrenia alcohol use, marijuana use admitted on 04/08/2023 after he was noted to be unresponsive by his girlfriend for unclear amount of time with full min at the mouse. Patient was transported by EMS to emergency room where he was intubated for hypoxia and respiratory distress. On further evaluation patient with imaging finding of aspiration and left pneumothorax. Initial left mid axillary chest tube placed in emergency room with persistence of pneumothorax and questionable subdiaphragmatic placement. Chest tube removed and replaced with left midclavicular in 3rd intercostal space with air evacuation and improvement in pneumothorax. Patient also noted to have acute kidney injury and rhabdomyolysis and started on IV fluid hydration. He underwent right gluteal fasciotomy with significant improvement in his CPK and renal function. However, remains persistently encephalopathic. MRI on 04/10/2023 with bilateral cerebral anoxic related encephalopathy. Evaluated by neurology with prognosis consider to be guarded, but not catastrophic. Overall or with slow neurologic improvement, With significant improvement on 04/23/2023, following commands with some delay, able to be extubated on 04/23/2023. No events overnight. Passed swallow evaluation. Critical Care Time (minutes): 0 Physical Exam Vital Signs: Vital Signs: Last Vital Signs Temp 96.8 F 04/25/23 04:00 Pulse 78 04/25/23 09:00 Resp 22 H 04/25/23 09:00 BP 117/76 04/25/23 09:00 Pulse Ox 92 04/25/23 09:00 O2 Del Method Room Air 04/25/23 09:00 O2 Flow Rate 18 04/08/23 09:15 FiO2 30 04/23/23 11:00 BMI result Body Mass Index 26.4 Const: General: no acute distress, alert ( stunted), awake and other ( expressive aphasia) Eyes: Sclerae: sclerae normal EOM: EOMs intact bilaterally Neck: Neck: Yes no lymphadenopathy, Yes trachea midline and Yes supple Resp: Effort & Inspection: normal respiratory effort and no respiratory distress Auscultation: clear to auscultation bilaterally Cardio: Rate: regular rate Rhythm: regular rhythm Heart sounds: no gallops, no murmurs and no rubs GI: Palpation (GI): Soft to palpation and Other GI palpation findings present ( Nontender) Auscultation: normal bowel sounds Extrem: General: Yes no pedal edema, No clubbing and No cyanosis Objective Data Labs 04/25/23 05:39 04/25/23 05:39 Labs: Laboratory Results - last 24 hr 04/25/23 04/25/23 04/25/23 05:37 05:39 05:39 WBC 13.1 H RBC 3.90 L Hgb 11.6 L Hct 34.7 L MCV 89.0 MCH 29.7 MCHC 33.4 RDW 12.9 Plt Count 510 H MPV 9.4 Immature Gran % (Auto) 0.5 H Neut % (Auto) 81.0 H Lymph % (Auto) 7.7 L [place] % (Auto) 10.4 Eos % (Auto) 0.2 Baso % (Auto) 0.2 Lymph # (Auto) 1.0 L [place] # (Auto) 1.4 H Eos # (Auto) 0.0 Baso # (Auto) 0.0 Abs Immat Gran (auto) 0.07 H Absolute Neuts (auto) 10.6 H Absolute Nucleated RBC 0.000 Nucleated RBC % (auto) 0.0 VBG pH 7.47 H VBG pCO2 32 VBG pO2 58 VBG HCO3 23 VBG O2 Saturation 87.0 VBG Base Excess 1.0 Sodium 137 Potassium 4.4 Chloride 105 Carbon Dioxide 23 Anion Gap 13 BUN 24 H Creatinine 0.73 Estim Creat Clear Calc 158.3 Estimated GFR > 60 Random Glucose 110 Calcium 9.3 Phosphorus 4.1 Magnesium 2.2 Albumin 3.9 Microbiology Microbiology Results: Microbiology 04/17/23 04:39 Blood - Venous Blood Culture - Final No growth after 5 days. 04/17/23 04:39 Blood - Venous Blood Culture - Final No growth after 5 days. 04/08/23 09:07 Blood - Venous Blood Culture - Final No growth after 5 days. 04/08/23 09:08 Blood - Venous Blood Culture - Final No growth after 5 days. 04/08/23 Unknown Urine clean catch - Urine lomax top Urine Culture - Final No growth. Progress Note: A&P Assessment and plan (1) Anoxic encephalopathy: Status: Acute (2) Polysubstance abuse: Status: Acute (3) Schizophrenia: Status: Acute Plan Assessment: 28-year-old gentleman admitted with respiratory failure and alteration of mental status likely secondary to aspiration pneumonitis, further complicated by acute renal failure with rhabdomyolysis, and left-sided pneumothorax Plan: Neuro: poor arousal with sedation vacation, MRI on 04/10/2023 with bilateral cerebral anoxic related findings. Likely underlying anoxic encephalopathy. Underlying polysubstance abuse. Neurology service care appreciated. Some improvement in mental status with following commands on 04/23/2023 and able to be extubated. Though, still with significant encephalopathy and expressive aphasia. Cardiac: 2D echocardiogram with normal ejection fraction, but wall motion abnormalities, now on aspirin. Pulmonary: acute respiratory, likely secondary to aspiration pneumonitis on the background of binge alcohol consumption / polysubstance abuse , resolved. Extubated 04/23/2023. Renal: Acute renal failure with rhabdomyolysis, resolved after right gluteal fasciotomy. General surgery service care appreciated. Non oliguric. Continue to monitor renal indices, and urine output. Endo: No acute issues. GI: No acute issues. ID: No acute issues Heme/Onc: No acute issues. Psych: No acute issues. Miscellaneous: No acute issues. Prophylaxis: heparin Diet: regular Quality Stroke Does the patient have a stroke diagnosis?: No VTE Prior VTE?: No VTE Risk Level:: Medical - moderate - high VTE Device Contraindication: N/A - Device Ordered VTE Drug Contraindication: N/A - Med Ordered
--- NOTE | 2023-04-25 14:04 | PM.EVENT ---
Event Note Date of Service: 04/25/23 Event Note: Transfer from ICU, discussed with Dr. Mccullough Time Spent With Patient Time: Total time managing care of this patient today ____ minutes.
[2023-04-26 03:20] VITALS: BP 116/74; PULSE 52; RESP 18; TEMP 36.1; O2SAT 97
[2023-04-26] MEDS: Heparin Sodium,Porcine 5,000 UNIT/ML VIAL 5000 UNIT SUBCUT ×3 (05:03→20:06)
[2023-04-26 06:00] VITALS: BMI 26.3
[2023-04-26 06:22] LABS: MANUAL DIFF FLAG NO
[2023-04-26 06:46] LABS: Albumin Level 4.2 g/dL (3.5-5.0); Anion Gap 14 (12-20); Blood Urea Nitrogen 20 mg/dL (9-16); Calcium 9.5 mg/dL (8.4-10.2); Carbon Dioxide 25 mmol/L (22-29); Chloride 101 mmol/L (96-108); Creatinine Clr Calc Pharmacy 165.1; Estimated Glomerular Filt Rate > 60; Glucose Random 98 mg/dL (60-115); Phosphorus 3.2 mg/dL (2.7-4.5); Potassium 3.8 mmol/L (3.3-5.1); Sodium 136 mmol/L (135-145)
[2023-04-26 06:47] LABS: Basophils Percent Auto 0.4 % (0-2); Eosinophils Absolute Auto 0.1 X10*3/uL (0.0-0.4); Eosinophils Percent Auto 0.8 % (0-4); Hemoglobin 12.8 g/dl (14.0-18.0); Imm Gran Abs Auto 0.08 X10*3/uL (0.00-0.03); Imm Gran Pct Auto 0.7 % (0.0-0.4); Lymphocytes Absolute Auto 1.4 X10*3/uL (1.2-4.9); Lymphocytes Percent Auto 12.1 % (20-40); Mean Corpuscular HGB Conc 33.7 g/dl (31.0-36.0); Mean Corpuscular Hemoglobin 30.5 pg (27.0-33.0); Mean Corpuscular Volume 90.7 fL (80.0-98.0); Mean Platelet Volume 9.8 fL (9.4-12.4); Monocytes Absolute Auto 1.1 X10*3/uL (0.1-1.2); Monocytes Percent Auto 10.2 % (2-11); Neutrophils Absolute Auto 8.5 x10*3/uL (2.0-8.3); Neutrophils Percent Auto 75.8 % (45-73); Platelet Count 494 X10*3/uL (160-400); Red Blood Count 4.19 X10*6/uL (4.60-5.80); Red Cell Distribution Width 12.8 % (11.0-16.0); White Blood Count 11.2 X10*3/uL (4.8-10.8)
[2023-04-26 08:00] VITALS: BP 120/74; PULSE 54; RESP 19; TEMP 36.2; O2SAT 97
[2023-04-26] MEDS: Aspirin 81 MG TAB.CHEW PO (10:14)
[2023-04-26] MEDS: Nystatin Powder 15 GM BOTTLE 1 APPL TOPICAL ×2 (10:15→20:07)
--- NOTE | 2023-04-26 11:03 | P.PNIM_ITS ---
Subjective Subjective Date of Service: 04/27/23 Review of Systems Follow up ICU transfer cerebral anoxic injury no use of upper and lower extremities non verbal Physical Exam Vital Signs: Vital Signs: Last Vital Signs Temp 97.1 F 04/26/23 08:00 Pulse 54 04/26/23 08:00 Resp 19 04/26/23 08:00 BP 120/74 04/26/23 08:00 Pulse Ox 97 04/26/23 08:00 O2 Del Method Room Air 04/26/23 08:00 O2 Flow Rate 18 04/08/23 09:15 FiO2 30 04/23/23 11:00 BMI result Body Mass Index 26.3 Appearing in no acute distress lung sounds are clear to auscultation heart regular rate rhythm, clear S1, S2 positive bowel sounds, abdomen is soft, nontender neuro patient is alert, nonverbal, no use of upper or lower extremities, eyes track Objective Data Active Medications Acetaminophen (Acetaminophen Oral Liquid 650 Mg/20.3 Ml Solution) 650 mg PO Q6H PRN PRN Reason: Fever Last Admin: 04/20/23 19:15 Dose: 650 mg Documented By: CHANELLE Aspirin (Aspirin 81 Mg Tab.Chew) 81 mg PO DAILY [facility] Last Admin: 04/26/23 10:14 Dose: 81 mg Documented By: VINCENT Heparin Sodium (Porcine) (Heparin Sodium,Porcine 5,000 Unit/Ml Vial) 5,000 unit SUBCUT Q8H [facility] Last Admin: 04/26/23 05:03 Dose: 5,000 unit Documented By: SID Naloxone HCl (Naloxone Hcl 0.4 Mg/Ml Vial) 0.2 mg IVPUSH Q2M PRN PRN Reason: Excessive sedation or RR < 8 Nystatin (Nystatin Powder 15 Gm Bottle) 1 appl TOPICAL TID [facility]; Protocol Last Admin: 04/26/23 10:15 Dose: 1 appl Documented By: VINCENT Labs 04/26/23 05:58 04/26/23 05:58 Labs: Laboratory Results - last 24 hr 04/26/23 04/26/23 05:58 05:58 MCV 90.7 MCH 30.5 MCHC 33.7 RDW 12.8 Plt Count 494 H MPV 9.8 Immature Gran % (Auto) 0.7 H Neut % (Auto) 75.8 H Lymph % (Auto) 12.1 L [place] % (Auto) 10.2 Eos % (Auto) 0.8 Baso % (Auto) 0.4 Lymph # (Auto) 1.4 [place] # (Auto) 1.1 Eos # (Auto) 0.1 Baso # (Auto) 0.0 Abs Immat Gran (auto) 0.08 H Absolute Neuts (auto) 8.5 H Absolute Nucleated RBC 0.000 Nucleated RBC % (auto) 0.0 Anion Gap 14 Estim Creat Clear Calc 165.1 Estimated GFR > 60 Random Glucose 98 Calcium 9.5 Phosphorus 3.2 Magnesium 2.0 Albumin 4.2 Assessment and Plan (1) Anoxic encephalopathy: Status: Acute Plan 28-year-old man with underlying history of schizophrenia alcohol use, marijuana use?admitted on 04/08/2023 after he was noted to be unresponsive by his girlfriend for unclear amount of time. Patient was transported by EMS to emergency room where he was intubated for hypoxia and respiratory distress.? On further evaluation patient with imaging finding of aspiration and left pneumothorax.? Initial left mid axillary chest tube placed in emergency room with persistence of pneumothorax and questionable subdiaphragmatic placement.? Chest tube removed and replaced with left midclavicular in 3rd intercostal space with air evacuation and improvement in pneumothorax.? Patient also noted to have acute kidney injury and rhabdomyolysis and started on IV fluid hydration. He underwent right gluteal fasciotomy with significant improvement in his CPK and renal function.? However, remains persistently encephalopathic.? MRI on 04/10/2023 with bilateral cerebral anoxic related encephalopathy. ? Evaluated by neurology with? prognosis consider to be guarded, but not catastrophic. Overall or with slow neurologic improvement, With significant improvement on 04/23/2023, following commands with some delay. extubated on 04/23/2023. Anoxic brain injury secondary to aspiration pneumonia related to alcohol binge episode with anoxic encephalopathy hemodynamically stable Extubated from ICU Bedbound, not on oxygen, [place] ground diet plan to transfer to joint terminal attack controller care facility Gluteal fasciotomy surgical intervention as per general surgery acute renal failure secondary to rhabdo resolved with IV fluids rhabdomyolysis secondary to unresponsiveness resolved after IV fluids DVT prophylaxis with Heparin Attending Dr. Batista DISPO plan for LTC rehab Time Spent With Patient Time: Total time managing care of this patient today ____ minutes. Quality Stroke Does the patient have a stroke diagnosis?: No VTE Prior VTE?: No VTE Risk Level:: Medical - moderate - high VTE Device Contraindication: N/A - Device Ordered VTE Drug Contraindication: N/A - Med Ordered
--- NOTE | 2023-04-26 11:57 | MHC.CM.PN ---
CM INFORMED PT WILL NEED LTC REHAB (PASSIVE) PLACEMENT REFERRAL MADE TO [facility]
[2023-04-26 12:00] VITALS: BP 115/68; PULSE 50; RESP 19; TEMP 36.4; O2SAT 98
[2023-04-26 15:48] VITALS: BP 106/59; PULSE 58; RESP 20; TEMP 36.3; O2SAT 98
[2023-04-26 19:49] VITALS: BP 110/71; PULSE 53; RESP 20; TEMP 36.4; O2SAT 96
[2023-04-26 23:47] VITALS: BP 117/74; PULSE 49; RESP 18; TEMP 36.1; O2SAT 99
[2023-04-27] MEDS: Heparin Sodium,Porcine 5,000 UNIT/ML VIAL 5000 UNIT SUBCUT ×3 (03:35→22:10)
[2023-04-27 07:12] VITALS: BP 124/69; PULSE 53; RESP 20; TEMP 36.2; O2SAT 97
--- NOTE | 2023-04-27 09:32 | P.PNIM_ITS ---
Subjective Subjective Date of Service: 04/27/23 Review of Systems Follow up ICU transfer cerebral anoxic injury no use of upper and lower extremities, some improvement in this, able to squeeze right hand closed, move toes on right foot winces when right foot/ankle is touched non verbal Physical Exam Vital Signs: Vital Signs: Last Vital Signs Temp 97.1 F 04/27/23 07:12 Pulse 53 04/27/23 07:12 Resp 20 04/27/23 07:12 BP 124/69 04/27/23 07:12 Pulse Ox 97 04/27/23 07:12 O2 Del Method Room Air 04/27/23 07:12 O2 Flow Rate 18 04/08/23 09:15 FiO2 30 04/23/23 11:00 BMI result Body Mass Index 26.3 Appearing in no acute distress lung sounds are clear to auscultation heart regular rate rhythm, clear S1, S2 positive bowel sounds, abdomen is soft, nontender neuro patient is alert, non verbal, tracking with eyes Objective Data Active Medications Acetaminophen (Acetaminophen Oral Liquid 650 Mg/20.3 Ml Solution) 650 mg PO Q6H PRN PRN Reason: Fever Last Admin: 04/20/23 19:15 Dose: 650 mg Documented By: CHANELLE Aspirin (Aspirin 81 Mg Tab.Chew) 81 mg PO DAILY [facility] Last Admin: 04/26/23 10:14 Dose: 81 mg Documented By: VINCENT Heparin Sodium (Porcine) (Heparin Sodium,Porcine 5,000 Unit/Ml Vial) 5,000 unit SUBCUT Q8H [facility] Last Admin: 04/27/23 03:35 Dose: 5,000 unit Documented By: BERNARD Naloxone HCl (Naloxone Hcl 0.4 Mg/Ml Vial) 0.2 mg IVPUSH Q2M PRN PRN Reason: Excessive sedation or RR < 8 Nystatin (Nystatin Powder 15 Gm Bottle) 1 appl TOPICAL TID [facility]; Protocol Last Admin: 04/26/23 20:07 Dose: 1 appl Documented By: BERNARD Labs 04/26/23 05:58 04/26/23 05:58 Assessment and Plan (1) Anoxic encephalopathy: Status: Acute Plan 28-year-old man with underlying history of schizophrenia alcohol use, marijuana use?admitted on 04/08/2023 after he was noted to be unresponsive by his girlfriend for unclear amount of time. Patient was transported by EMS to emergency room where he was intubated for hypoxia and respiratory distress.? On further evaluation patient with imaging finding of aspiration and left pneumothorax.? Initial left mid axillary chest tube placed in emergency room with persistence of pneumothorax and questionable subdiaphragmatic placement.? Chest tube removed and replaced with left midclavicular in 3rd intercostal space with air evacuation and improvement in pneumothorax.? Patient also noted to have acute kidney injury and rhabdomyolysis and started on IV fluid hydration. He underwent right gluteal fasciotomy with significant improvement in his CPK and renal function.? However, remains persistently encephalopathic.? MRI on 04/10/2023 with bilateral cerebral anoxic related encephalopathy. ? Evaluated by neurology with? prognosis consider to be guarded, but not catastrophic. Overall or with slow neurologic improvement, With significant improvement on 04/23/2023, following commands with some delay. extubated on 04/23/2023. Right foot pain winces when touched will start with xray of foot and ankle Anoxic brain injury secondary to aspiration pneumonia related to alcohol binge episode with anoxic encephalopathy hemodynamically stable Extubated from ICU Bedbound, not on oxygen, [facility] ground diet plan to transfer to rehab when medically clear Gluteal fasciotomy surgical intervention as per general surgery acute renal failure secondary to rhabdo resolved with IV fluids rhabdomyolysis secondary to unresponsiveness resolved after IV fluids DVT prophylaxis with Heparin Attending Dr. Treadwell DISPO plan for extensive rehab Has [facility], guardian Requires continued hospitalization for safe discharge to rehabilitation Time Spent With Patient Time: Total time managing care of this patient today ____ minutes. Quality Stroke Does the patient have a stroke diagnosis?: No VTE Prior VTE?: No VTE Risk Level:: Medical - moderate - high VTE Device Contraindication: N/A - Device Ordered VTE Drug Contraindication: N/A - Med Ordered
[2023-04-27] MEDS: Aspirin 81 MG TAB.CHEW PO (09:43)
[2023-04-27] MEDS: Nystatin Powder 15 GM BOTTLE 1 APPL TOPICAL ×3 (09:44→22:10)
[2023-04-27 11:03] VITALS: BP 124/72; PULSE 60; RESP 20; TEMP 36.4; O2SAT 96
--- NOTE | 2023-04-27 13:58 | MHC.CLN ---
F/U PO INTAKE POOR DIET ADVANCED TO GRD M/S PER ASTROPHYSICS TEACHER-APPROPRIATE PT RECEIVING ENSURE TID PROVIDES 1050KCALS, 60G PROTEIN WITH 100% ACCEPTANCE IN ADDITION, GELATEIN ADDED TO PROMOTE WOUND HEALING PROVIDES 320KCALS, 40G PROTEIN MONITOR PO INTAKE CLOSELY
[2023-04-27 15:40] VITALS: BP 117/70; PULSE 52; RESP 20; TEMP 36.6; O2SAT 98
--- NOTE | 2023-04-27 16:19 | MHC.CM.PN ---
EMR REVIEWED, PT W/ANOXIC BRAIN INJURY, WIGGLING TOES ON R FOOT/SQUEEZING HOSPITALIST HAND W/R HAND, HOSPITALIST THINKS PT WILL IMPROVE W/EXTENSIVE REHAB, CM PLACED REFERRAL TO ACUTE REHABS AND [facility] IN [facility] AND [facility] IS REVIEWING. CM WILL CONT TO FOLLOW D/C NEEDS.
--- NOTE | 2023-04-27 17:25 | MHC.SL.SWA ---
Speech Pathologist Impression: Risk of aspiration Risk of Aspiration Due to: Hx of Recent Extubation Dysphasia Diet Status: UPGRADE Liquid Consistency and Strategies for Safe Swallow: Liquid Intake Recommendation: Thin Liquid Intake Strategies: Small Sips Solid Food Consistency: Dietary Recommendations: Regular Additional Modifications to Solid Foods: Recommend upgrade to unmodified textures, thin liquids, continue w/ crushed pills in puree. 1:1 supervision and aspiration precautions. Encourage independence feeding while providing assistance as needed throughout meal. Pt still needs assistance with cutting food and opening containers. Pt followed directions, shook/nodded his head in response to questions, no verbal responses. METAL HANGING HELPER to screen receptive and expressive language/functional communication. Oral Medication Intake: Crushed with Puree Please contact the pharmacy regarding appropriate crushable or liquid drug formulations that are available whenever modified delivery is recommended. Compensatory Strategies and Precautions to be Taken for Safe Swallow: Sitting Upright (90 deg) Double Swallow Small Bites and Sips Alternate Liquids/Solids Rate of Ingestion Change Avoid Specific Foods Supervision While Eating and Drinking for Safe Swallow: Total Supervision (1:1) Foods to Avoid: Hard, tough to chew solids Swallowing Recommended Treatments: Compens. Strategy Educat. Recommendation for Speech: Inpatient Speech Therapy Attending Radiologist Clinican/Clinical Fellow: No Supervisory Statement: I have reviewed and agree with the student/clinical fellow's documentation: N/A Speech Language Pathologist: Latha Conde M.A., CCC-METAL HANGING HELPER
[2023-04-27 19:35] VITALS: BP 119/75; PULSE 55; RESP 20; TEMP 36.2; O2SAT 97
[2023-04-27 23:40] VITALS: BP 116/71; PULSE 52; RESP 18; TEMP 36.7; O2SAT 97
[2023-04-28] VITALS (7 sets, daily range): BP systolic 113–122; BP diastolic 67–72; PULSE 51–68; RESP 17–20; TEMP 36.5–37.1; O2SAT 92–98; BMI 24.5
[2023-04-28] MEDS: Heparin Sodium,Porcine 5,000 UNIT/ML VIAL 5000 UNIT SUBCUT ×3 (04:58→20:27)
--- NOTE | 2023-04-28 07:49 | P.PNGS_ITS ---
Subjective Subjective Date of Service: 04/28/23 Interval history: Patient extubated, on tele [facility] floor. Eyes are open however patient is unresponsive to commands. Physical Exam Vital Signs: Vital Signs: Last Vital Signs Temp 98.7 F 04/28/23 04:00 Pulse 67 04/28/23 04:00 Resp 18 04/28/23 04:00 BP 122/72 04/28/23 04:00 Pulse Ox 98 04/28/23 04:00 O2 Del Method Room Air 04/28/23 04:00 O2 Flow Rate 18 04/08/23 09:15 FiO2 30 04/23/23 11:00 BMI result Body Mass Index 24.5 Const: General: awake and lethargic Nutritional Appearance: well nourished Orientation/consciousness: lethargic Resp: Effort & Inspection: normal respiratory effort Extrem: Other: Right hip wound is clean, dry, and intact. Remaining sutures removed in the incision found to be well healed. Objective Data Active Medications Acetaminophen (Acetaminophen Oral Liquid 650 Mg/20.3 Ml Solution) 650 mg PO Q6H PRN PRN Reason: Fever Last Admin: 04/20/23 19:15 Dose: 650 mg Documented By: CHANELLE Aspirin (Aspirin 81 Mg Tab.Chew) 81 mg PO DAILY [facility] Last Admin: 04/27/23 09:43 Dose: 81 mg Documented By: MARYCHUY Heparin Sodium (Porcine) (Heparin Sodium,Porcine 5,000 Unit/Ml Vial) 5,000 unit SUBCUT Q8H [facility] Last Admin: 04/28/23 04:58 Dose: 5,000 unit Documented By: RIRI Naloxone HCl (Naloxone Hcl 0.4 Mg/Ml Vial) 0.2 mg IVPUSH Q2M PRN PRN Reason: Excessive sedation or RR < 8 Nystatin (Nystatin Powder 15 Gm Bottle) 1 appl TOPICAL TID [facility]; Protocol Last Admin: 04/27/23 22:10 Dose: 1 appl Documented By: RIRI Labs 04/26/23 05:58 04/26/23 05:58 Procedures Date of Service Date of Service: 04/28/23 Progress Note: A&P Assessment and plan (1) Compartment syndrome of buttock: Status: Inactive Plan 28-year-old male patient polysubstance abuse with resulting anoxic encephalopathy with suspected gluteal compartment syndrome right side, s/p right gluteal fasciotomy. Patient is wounds are clean and intact. The remaining sutures removed today. Will sign off, re-consult as necessary. Time Spent With Patient Time: Total time managing care of this patient today ____ minutes. Quality Stroke Does the patient have a stroke diagnosis?: No VTE Prior VTE?: No VTE Risk Level:: Medical - moderate - high VTE Device Contraindication: N/A - Device Ordered VTE Drug Contraindication: N/A - Med Ordered
[2023-04-28] MEDS: Aspirin 81 MG TAB.CHEW PO (08:41)
[2023-04-28] MEDS: Nystatin Powder 15 GM BOTTLE 1 APPL TOPICAL ×3 (08:42→20:28)
--- NOTE | 2023-04-28 08:46 | P.PNIM_ITS ---
Subjective Subjective Date of Service: 04/28/23 Review of Systems Follow up ICU transfer cerebral anoxic injury no use of upper and lower extremities, some improvement in this, able to squeeze right hand closed, move toes on right foot Moving hands and legs, random verbalization non verbal Physical Exam Vital Signs: Vital Signs: Last Vital Signs Temp 97.7 F 04/28/23 07:47 Pulse 56 04/28/23 07:47 Resp 20 04/28/23 07:47 BP 116/68 04/28/23 07:47 Pulse Ox 96 04/28/23 07:47 O2 Del Method Room Air 04/28/23 07:47 O2 Flow Rate 18 04/08/23 09:15 FiO2 30 04/23/23 11:00 BMI result Body Mass Index 24.5 Appearing in no acute distress lung sounds are clear to auscultation heart regular rate rhythm, clear S1, S2 positive bowel sounds, abdomen is soft, nontender neuro patient is alert x3, no focal deficits Objective Data Active Medications Acetaminophen (Acetaminophen Oral Liquid 650 Mg/20.3 Ml Solution) 650 mg PO Q6H PRN PRN Reason: Fever Last Admin: 04/20/23 19:15 Dose: 650 mg Documented By: CHANELLE Aspirin (Aspirin 81 Mg Tab.Chew) 81 mg PO DAILY [facility] Last Admin: 04/28/23 08:41 Dose: 81 mg Documented By: DAVID Heparin Sodium (Porcine) (Heparin Sodium,Porcine 5,000 Unit/Ml Vial) 5,000 unit SUBCUT Q8H [facility] Last Admin: 04/28/23 04:58 Dose: 5,000 unit Documented By: RIRI Naloxone HCl (Naloxone Hcl 0.4 Mg/Ml Vial) 0.2 mg IVPUSH Q2M PRN PRN Reason: Excessive sedation or RR < 8 Nystatin (Nystatin Powder 15 Gm Bottle) 1 appl TOPICAL TID [facility]; Protocol Last Admin: 04/28/23 08:42 Dose: 1 appl Documented By: DAVID Labs 04/26/23 05:58 04/26/23 05:58 Assessment and Plan (1) Anoxic encephalopathy: Status: Acute Plan 28-year-old man with underlying history of schizophrenia alcohol use, marijuana use?admitted on 04/08/2023 after he was noted to be unresponsive by his girlfriend for unclear amount of time. Patient was transported by EMS to emergency room where he was intubated for hypoxia and respiratory distress.? On further evaluation patient with imaging finding of aspiration and left pneumothorax.? Initial left mid axillary chest tube placed in emergency room with persistence of pneumothorax and questionable subdiaphragmatic placement.? Chest tube removed and replaced with left midclavicular in 3rd intercostal space with air evacuation and improvement in pneumothorax.? Patient also noted to have acute kidney injury and rhabdomyolysis and started on IV fluid hydration. He underwent right gluteal fasciotomy with significant improvement in his CPK and renal function.? However, remains persistently encephalopathic.? MRI on 04/10/2023 with bilateral cerebral anoxic related encephalopathy. ? Evaluated by neurology with? prognosis consider to be guarded, but not catastrophic. Overall or with slow neurologic improvement, With significant improvement on 04/23/2023, following commands with some delay. extubated on 04/23/2023. Right foot pain winces when touched xray negative Anoxic brain injury secondary to aspiration pneumonia related to alcohol binge episode with anoxic encephalopathy hemodynamically stable Bedbound, out of bed to chair, not on oxygen, me[facility] ground diet plan to transfer to rehab when medically clear PT/OT OOB to chair Gluteal fasciotomy surgical intervention as per general surgery acute renal failure secondary to rhabdo resolved with IV fluids rhabdomyolysis secondary to unresponsiveness resolved after IV fluids DVT prophylaxis with Heparin Attending Dr. Treadwell DISPO plan for extensive rehab Has [facility], guardian Requires continued hospitalization for safe discharge to rehabilitation Time Spent With Patient Time: Total time managing care of this patient today ____ minutes. Quality Stroke Does the patient have a stroke diagnosis?: No VTE Prior VTE?: No VTE Risk Level:: Medical - moderate - high VTE Device Contraindication: N/A - Device Ordered VTE Drug Contraindication: N/A - Med Ordered
--- NOTE | 2023-04-28 16:16 | MHC.SL.DTX ---
Dysphagia Diet modifications: Last documented Solid diet consistencies: Regular Last documented Liquid consistency: Thin Last documented Medication Administration: Changes made to current diet?: Yes: Upgrade to REGULAR/THIN Liquid Consistency and Strategies: Liquid Intake Recommendation: Thin Compensatory Strategies for Safe Swallow: Small Sips Compensatory Strategies for Safe Swallow(b): Sitting Upright (90 deg) Double Swallow Small Bites and Sips Alternate Liquids/Solids Rate of Ingestion Change Avoid Specific Foods Solid Food Consistency: Dietary Recommendations: Regular Additional Modifications to Solids: Recommend upgrade to unmodified textures, thin liquids, continue w/ crushed pills in puree. 1:1 supervision and aspiration precautions. Encourage independence feeding while providing assistance as needed throughout meal. Pt still needs assistance with cutting food and opening containers. Pt followed directions, shook/nodded his head in response to questions, no verbal responses. STAND UP COMEDIAN to screen receptive and expressive language/functional communication. Oral Medication Intake: Crushed with Puree Strategies and Precautions to be Taken for Safe Swallow: Sitting Upright (90 deg) Double Swallow Small Bites and Sips Alternate Liquids/Solids Rate of Ingestion Change Avoid Specific Foods Supervision While Eating and/Drinking: Total Supervision (1:1) Foods to Avoid: Hard, tough to chew solids Swallowing Recommended Treatments: Compens. Strategy Educat. Level of Impact on: Daily activities: Interpersonal interactions: Education: Employment: Community: Prognosis for Improvement: Recommendation for Speech: Inpatient Speech Therapy Comment: Frequency/Duration: Date Range for Service Req: Timeline to reassess: Additional Comments: Pt now in [facility]MC. Per CM, pt will need LTC Rehab. Treatment: Pt tolerating regular solids and thin liquids with his lunch tray present. STAND UP COMEDIAN attempted to screen receptive and expressive language. He does respond occasionally with a soft voice suspicious for dysphonia s/p extubation. He names color with 100% accuracy, but only responds to 30% of tactile items presented to him. It is uncertain if this is a result of anomia, or behavioral given his history. Pt not likely to be highly engaged with rehabilitation efforts to warrant acute rehabilitation. STAND UP COMEDIAN will continue to monitor expressive and receptive language during his inpatient stay. Assessment: Drying Tunnel Operator Clinican/Clinical Fellow: No Supervisory Statement: I have reviewed and agree with the student/clinical fellow's documentation: N/A Speech Language Pathologist: Akbar Guzmán M.A., [facility]-STAND UP COMEDIAN
[2023-04-29] MEDS: Heparin Sodium,Porcine 5,000 UNIT/ML VIAL 5000 UNIT SUBCUT ×3 (03:12→21:51)
[2023-04-29 04:00] VITALS: BP 125/73; PULSE 57; RESP 18; TEMP 36.9; O2SAT 93
[2023-04-29 06:00] VITALS: BMI 24.8
--- NOTE | 2023-04-29 06:22 | PC.NURSE ---
Pt alert, not answering orientation questions but looks at staff when spoken too. Not answering direct questions but will spontaneously makes statements. No s/sx respiratory distress. No s/sx pain or discomfort. Incontinent of urine, continues to remove [place] cath. Refusing cardiac montior. Maintained safety and comfort. Bed alarm on and video monitor in place. Call carvalho within reach.
[2023-04-29 06:43] LABS: Hematocrit 38.6 % (42.0-52.0); Hemoglobin 13.4 g/dl (14.0-18.0); Mean Corpuscular HGB Conc 34.7 g/dl (31.0-36.0); Mean Corpuscular Hemoglobin 30.6 pg (27.0-33.0); Mean Corpuscular Volume 88.1 fL (80.0-98.0); Platelet Count 363 X10*3/uL (160-400); Red Blood Count 4.38 X10*6/uL (4.60-5.80); Red Cell Distribution Width 12.8 % (11.0-16.0); White Blood Count 7.5 X10*3/uL (4.8-10.8)
[2023-04-29 07:03] LABS: Anion Gap 11 (12-20); Blood Urea Nitrogen 15 mg/dL (9-16); Calcium 9.4 mg/dL (8.4-10.2); Carbon Dioxide 25 mmol/L (22-29); Chloride 102 mmol/L (96-108); Creatinine Clr Calc Pharmacy 167.5; Estimated Glomerular Filt Rate > 60; Glucose Random 97 mg/dL (60-115); Sodium 134 mmol/L (135-145)
[2023-04-29 07:11] VITALS: BP 111/71; PULSE 50; RESP 20; TEMP 36.9; O2SAT 97
[2023-04-29] MEDS: Aspirin 81 MG TAB.CHEW PO (09:02)
--- NOTE | 2023-04-29 09:45 | P.PNIM_ITS ---
Subjective Subjective Date of Service: 04/29/23 Review of Systems Follow up ICU transfer cerebral anoxic injury no use of upper and lower extremities, some improvement in this, able to squeeze right hand closed, move toes on right foot Moving hands and legs, random verbalization Physical Exam Vital Signs: Vital Signs: Last Vital Signs Temp 98.4 F 04/29/23 07:11 Pulse 50 04/29/23 07:11 Resp 20 04/29/23 07:11 BP 111/71 04/29/23 07:11 Pulse Ox 97 04/29/23 07:11 O2 Del Method Room Air 04/29/23 07:11 O2 Flow Rate 18 04/08/23 09:15 FiO2 30 04/23/23 11:00 BMI result Body Mass Index 24.8 Appearing in no acute distress lung sounds are clear to auscultation heart regular rate rhythm, clear S1, S2 positive bowel sounds, abdomen is soft, nontender neuro patient is alert, movements to upper and LE Right buttock Objective Data Active Medications Acetaminophen (Acetaminophen Oral Liquid 650 Mg/20.3 Ml Solution) 650 mg PO Q6H PRN PRN Reason: Fever Last Admin: 04/20/23 19:15 Dose: 650 mg Documented By: CHANELLE Aspirin (Aspirin 81 Mg Tab.Chew) 81 mg PO DAILY [facility] Last Admin: 04/29/23 09:02 Dose: 81 mg Documented By: CLEMENCIA Heparin Sodium (Porcine) (Heparin Sodium,Porcine 5,000 Unit/Ml Vial) 5,000 unit SUBCUT Q8H [facility] Last Admin: 04/29/23 03:12 Dose: 5,000 unit Documented By: BETTY Naloxone HCl (Naloxone Hcl 0.4 Mg/Ml Vial) 0.2 mg IVPUSH Q2M PRN PRN Reason: Excessive sedation or RR < 8 Nystatin (Nystatin Powder 15 Gm Bottle) 1 appl TOPICAL TID [facility]; Protocol Last Admin: 04/28/23 20:28 Dose: 1 appl Documented By: BETTY Labs 04/29/23 06:25 04/29/23 06:25 Labs: Laboratory Results - last 24 hr 04/29/23 04/29/23 06:25 06:25 MCV 88.1 MCH 30.6 MCHC 34.7 RDW 12.8 Plt Count 363 D MPV 9.0 L Absolute Nucleated RBC 0.000 Nucleated RBC % (auto) 0.0 Anion Gap 11 L Estim Creat Clear Calc 167.5 Estimated GFR > 60 Random Glucose 97 Calcium 9.4 Assessment and Plan (1) Anoxic encephalopathy: Status: Acute Plan 28-year-old man with underlying history of schizophrenia alcohol use, marijuana use?admitted on 04/08/2023 after he was noted to be unresponsive by his girlfriend for unclear amount of time. Patient was transported by EMS to emergency room where he was intubated for hypoxia and respiratory distress.? On further evaluation patient with imaging finding of aspiration and left pneumothorax.? Initial left mid axillary chest tube placed in emergency room with persistence of pneumothorax and questionable subdiaphragmatic placement.? Chest tube removed and replaced with left midclavicular in 3rd intercostal space with air evacuation and improvement in pneumothorax.? Patient also noted to have acute kidney injury and rhabdomyolysis and started on IV fluid hydration. He underwent right gluteal fasciotomy with significant improvement in his CPK and renal function.? However, remains persistently encephalopathic.? MRI on 04/10/2023 with bilateral cerebral anoxic related encephalopathy. ? Evaluated by neurology with? prognosis consider to be guarded, but not catastrophic. Overall or with slow neurologic improvement, With significant improvement on 04/23/2023, following commands with some delay. extubated on 04/23/2023. Right foot pain winces when touched xray negative venous doppler us neg Anoxic brain injury secondary to aspiration pneumonia related to alcohol binge episode with anoxic encephalopathy hemodynamically stable Bedbound, out of bed to chair, not on oxygen, [facility] ground diet plan to transfer to rehab when medically clear PT/OT continued OOB to chair Gluteal fasciotomy right buttock surgical intervention as per general surgery acute renal failure secondary to rhabdo resolved with IV fluids rhabdomyolysis secondary to unresponsiveness resolved after IV fluids DVT prophylaxis with Heparin Attending Dr. Treadwell DISPO plan for extensive rehab Has [facility], guardian Requires continued hospitalization for safe discharge to rehabilitation Time Spent With Patient Time: Total time managing care of this patient today ____ minutes. Quality Stroke Does the patient have a stroke diagnosis?: No VTE Prior VTE?: No VTE Risk Level:: Medical - moderate - high VTE Device Contraindication: N/A - Device Ordered VTE Drug Contraindication: N/A - Med Ordered
[2023-04-29 11:18] VITALS: BP 122/73; PULSE 94; RESP 20; TEMP 36.6; O2SAT 100
--- NOTE | 2023-04-29 11:40 | MHC.CLN ---
F/U PO INTAKE VARIABLE DIET ADVANCED TO REGULAR PER FURNACE REPAIRER-APPROPRIATE PT RECEIVING ENSURE TID PROVIDES 1050KCALS, 60G PROTEIN WITH 100% ACCEPTANCE IN ADDITION, GELATEIN ADDED TO PROMOTE WOUND HEALING PROVIDES 320KCALS, 40G PROTEIN MONITOR PO INTAKE CLOSELY
--- NOTE | 2023-04-29 12:36 | MHC.CM.PN ---
EMR REVIEWED, PT CONT'S TO SLOWLY IMPROVE, PT/OT RECOMMENDING ACUTE REHAB AND AR REFERRAL HAS BEEN UPDATED, CM ALSO AWAITING FOR [place] TO BE AMENDED W/RIGHT TO PLACE, PT WILL NOT BE ABLE TO D/C UNTIL AMENDED GUARDIANSHIP PAPERWORK IS RECEIVED BY COURTS, CM WILL CONT TO FOLLOW D/C NEEDS.
--- NOTE | 2023-04-29 13:39 | MHC.SL.SWA ---
Risk of Aspiration Due to: Hx of Recent Extubation Dysphasia Diet Status: No change Liquid Consistency and Strategies for Safe Swallow: Liquid Intake Recommendation: Thin Liquid Intake Strategies: Small Sips Solid Food Consistency: Dietary Recommendations: Regular Oral Medication Intake: Crushed with Puree Please contact the pharmacy regarding appropriate crushable or liquid drug formulations that are available whenever modified delivery is recommended. Compensatory Strategies and Precautions to be Taken for Safe Swallow: Sitting Upright (90 deg) Double Swallow Small Bites and Sips Alternate Liquids/Solids Rate of Ingestion Change Avoid Specific Foods Supervision While Eating and Drinking for Safe Swallow: Total Supervision (1:1) Foods to Avoid: Hard, tough to chew solids Swallowing Recommended Treatments: Compens. Strategy Educat. Recommendation for Speech: Inpatient Speech Therapy Comment: Recommend pt continue with unmodified textures, thin liquids, and crushed pills in puree. 1:1 supervision and aspiration precautions. Encourage independence feeding while providing assistance as needed throughout meal. Pt still needs assistance with cutting food and opening containers.INTEGRITY DIRECTOR to continue to follow to monitor diet toleration, receptive/expressive language & functional communication. Station Operator Clinican/Clinical Fellow: No Supervisory Statement: I have reviewed and agree with the student/clinical fellow's documentation: N/A Speech Language Pathologist: Thu Lara M.A., INTEGRITY DIRECTOR
[2023-04-29 15:22] VITALS: BP 117/70; PULSE 63; RESP 17; TEMP 37.1; O2SAT 97
[2023-04-29 19:19] VITALS: BP 117/62; PULSE 89; RESP 17; TEMP 36.8; O2SAT 96
[2023-04-29] MEDS: Nystatin Powder 15 GM BOTTLE 1 APPL TOPICAL (21:51)
[2023-04-29] MEDS: OLANZapine 2.5 MG TABLET PO (21:51)
[2023-04-30] VITALS (9 sets, daily range): BP systolic 114–131; BP diastolic 64–79; PULSE 58–140; RESP 14–20; TEMP 36.1–37.3; O2SAT 95–98; BMI 24.3
[2023-04-30] MEDS: Heparin Sodium,Porcine 5,000 UNIT/ML VIAL 5000 UNIT SUBCUT ×3 (04:35→19:59)
--- NOTE | 2023-04-30 05:51 | PC.NURSE ---
Pt continues to refuse telemetry and was found chewing on tele strings. Tele box has been removed from his room. Pt keeps trying to grab items to chew. Items moved out of reach. notified.
[2023-04-30] MEDS: Aspirin 81 MG TAB.CHEW PO (09:45)
[2023-04-30] MEDS: Nystatin Powder 15 GM BOTTLE 1 APPL TOPICAL ×3 (09:45→19:59)
--- NOTE | 2023-04-30 14:47 | HO.PM.IMPN ---
Subjective Subjective Date of Service: 04/30/23 Interval History: seen and examined this morning Follow-up for anoxic brain injury patient awake, alert, observed sitting up in bed. did not answer verbally, did not follow any commands unable to obtain ROS Physical Exam Vital Signs: Vital Signs: Last Vital Signs Temp 98.4 F 04/30/23 11:22 Pulse 84 04/30/23 11:22 Resp 18 04/30/23 11:22 BP 119/64 04/30/23 11:22 Pulse Ox 96 04/30/23 11:22 O2 Del Method Room Air 04/30/23 11:22 O2 Flow Rate 18 04/08/23 09:15 FiO2 30 04/23/23 11:00 BMI result Body Mass Index 24.3 Const: Other: observed sitting in bed. Awake, alert. Appears to be in no acute distress unable to assess orientation as patient does not respond to questions (to me) reportedly has been talking with PT and others Nutritional Appearance: average body habitus Resp: Effort & Inspection: normal respiratory effort, no respiratory distress and no use of accessory muscles Cardio: Rate: regular rate Heart sounds: S1 normal heart sound present and S2 normal heart sound present GI: Inspection: No distended Palpation (GI): Soft to palpation Extrem: General: Yes no pedal edema Objective Data Active Medications Acetaminophen (Acetaminophen Oral Liquid 650 Mg/20.3 Ml Solution) 650 mg PO Q6H PRN PRN Reason: Fever Last Admin: 04/20/23 19:15 Dose: 650 mg Documented By: CHANELLE Aspirin (Aspirin 81 Mg Tab.Chew) 81 mg PO DAILY [facility] Last Admin: 04/30/23 09:45 Dose: 81 mg Documented By: AMALIA Heparin Sodium (Porcine) (Heparin Sodium,Porcine 5,000 Unit/Ml Vial) 5,000 unit SUBCUT Q8H [facility] Last Admin: 04/30/23 04:35 Dose: 5,000 unit Documented By: NICKIE Naloxone HCl (Naloxone Hcl 0.4 Mg/Ml Vial) 0.2 mg IVPUSH Q2M PRN PRN Reason: Excessive sedation or RR < 8 Nystatin (Nystatin Powder 15 Gm Bottle) 1 appl TOPICAL TID [facility]; Protocol Last Admin: 04/30/23 09:45 Dose: 1 appl Documented By: AMALIA Olanzapine (Olanzapine 2.5 Mg Tablet) 2.5 mg PO BEDTIME [facility] Last Admin: 04/29/23 21:51 Dose: 2.5 mg Documented By: NICKIE Labs 04/29/23 06:25 04/29/23 06:25 Assessment and Plan (1) Anoxic encephalopathy: Status: Acute Plan This is a 28-year-old man with underlying history of schizophrenia, alcohol use, marijuana use?admitted on 04/08/2023 after he was noted to be unresponsive by his girlfriend for unclear amount of time. Patient was transported by EMS to emergency room where he was intubated for hypoxia and respiratory distress.? On further evaluation patient with imaging finding of aspiration and left pneumothorax.? Initial left mid axillary chest tube placed in emergency room with persistence of pneumothorax and questionable subdiaphragmatic placement.? Chest tube removed and replaced with left midclavicular in 3rd intercostal space with air evacuation and improvement in pneumothorax.? Patient also noted to have acute kidney injury and rhabdomyolysis and started on IV fluid hydration. He underwent right gluteal fasciotomy with significant improvement in his CPK and renal function.? However, remains persistently encephalopathic.? MRI on 04/10/2023 with bilateral cerebral anoxic related encephalopathy. ? Evaluated by neurology with? prognosis consider to be guarded, but not catastrophic. Overall or with slow neurologic improvement, With significant improvement on 04/23/2023, following commands with some delay. extubated on 04/23/2023. Right foot pain winces when touched xray negative venous doppler us neg Anoxic brain injury secondary to aspiration pneumonia related to alcohol binge episode with anoxic encephalopathy hemodynamically stable Bedbound, out of bed to chair, not on oxygen, [facility] ground diet plan to transfer to rehab when medically clear continue PT/OT OOB to chair acute respiratory failure with hypoxia secondary to aspiration pneumonitis, pneumothorax s/p treatment with unasyn requiring intubation, extubated 04/23 now on room air Gluteal compartment syndrome s/p right gluteal fasciotomy 04/08 sutures removed no further surgical intervention required at this time NSTEMI s/p heparin drip echo with preserved LVEF basal inferior akinesis, regional wall motion abnormalities pneumothorax s/p left chest tube placement and subsequent removal resolved acute renal failure secondary to rhabdo resolved with IV fluids normocytic anemia H/H stable rhabdomyolysis secondary to unresponsiveness s/p right gluteal fasciotomy schizophrenia on zyprexa at baseline, resumed on lower dose 04/29 DVT prophylaxis with Heparin Attending Dr. Treadwell DISPReagan plan for extensive rehab Has [facility], guardian Requires continued hospitalization for safe discharge to rehabilitation Time Spent With Patient Time: Total time managing care of this patient today ____ minutes. Quality Stroke Does the patient have a stroke diagnosis?: No VTE Prior VTE?: No VTE Risk Level:: Medical - moderate - high VTE Device Contraindication: N/A - Device Ordered VTE Drug Contraindication: N/A - Med Ordered
--- NOTE | 2023-04-30 16:41 | MHC.SLORD ---
Speech Language Pathology Order Status: Attempted to see patient during lunch. Patient was awake, lying in bed, food present at bedside. Patient did not respond to queries about starting/having lunch, averted gaze, implied refusal. BUSINESS BROKER will continue to follow.
[2023-04-30] MEDS: OLANZapine 2.5 MG TABLET PO (19:59)
[2023-05-01 04:00] VITALS: BP 137/86; PULSE 64; RESP 18; TEMP 36.8; O2SAT 97
[2023-05-01] MEDS: Heparin Sodium,Porcine 5,000 UNIT/ML VIAL 5000 UNIT SUBCUT ×3 (04:22→23:07)
[2023-05-01 04:35] VITALS: BMI 24.8
[2023-05-01 07:48] VITALS: BP 118/78; PULSE 70; RESP 20; TEMP 37.2; O2SAT 96
[2023-05-01] MEDS: Nystatin Powder 15 GM BOTTLE 1 APPL TOPICAL ×3 (09:50→23:07)
[2023-05-01] MEDS: Aspirin 81 MG TAB.CHEW PO (09:50)
--- NOTE | 2023-05-01 10:55 | MHC.CM.PN ---
EMR REVIEWED, CM STILL AWAITING GUARDIANSHIP TO BE AMENDED W/RIGHT TO ADMIT, CM RECEIVED MESSAGE FROM [facility]IS AR[facility] THAT PT HAS BEEN DECLINED FROM [facility] ARCE AND [facility] STILL FOLLOWING HOWEVER [facility] AND [facility] HAVE DECLINED PT, SNF REFERRAL EXPANDED, CM WILL SUBMIT LT[facility] REFERRAL TO [facility] AND [facility] TO FOLLOW D/C NEEDS.
[2023-05-01 11:28] VITALS: BP 118/78; PULSE 70; O2SAT 96
[2023-05-01 11:37] VITALS: BP 129/78; PULSE 93; RESP 20; TEMP 36.7; O2SAT 97
--- NOTE | 2023-05-01 11:48 | MHC.SPEECHCO ---
FACILITIES MAINTENANCE ASSISTANT visited pt at bedside. Pt did not follow verbal commands. Would not attend to any visual treatment materials and initially refused to participate. Pt did answer some questions. Pt provided his name and stated he was in [place]. Pt stated that he had eaten his breakfast and that it was random stuff. Pt leaned forward, appeared he was attempting to read the whiteboard, but did not provide today's date. Per chart review, RN documented pt was trying to grab items to chew. Pt is currently on an unmodified diet- regular solids w/ thin liquids- 1:1 supervision, provide assistance as needed.
--- NOTE | 2023-05-01 12:04 | MHC.CLN ---
F/U PO INTAKE 50-100% DIET RX: REGULAR -APPROPRIATE PT RECEIVING ENSURE TID PROVIDES 1050KCALS, 60G PROTEIN WITH 100% ACCEPTANCE IN ADDITION, GELATEIN ADDED TO PROMOTE WOUND HEALING PROVIDES 320KCALS, 40G PROTEIN MONITOR PO INTAKE AND IMPROVED WOUND HEALING
--- NOTE | 2023-05-01 13:28 | PM.CNCAR ---
History of Present Illness History of Present Illness Date of Service: 05/01/23 Requesting physician: Ellie Rangel Consult reason: myocardial infarction and other Chief complaint: Alteration of mental status, acute respiratory mireya Narrative: I was consulted to see [facility] in cardiology consultation today. Patient does not provide any reasonable history. Patient was admitted to ICU with acute respiratory failure with hypoxemia with subsequent anoxic encephalopathy. He has been extubated and currently is confused. He does not know where he is and the time heart date. While in the ICU he was noted to have elevated troponin consistent with NSTEMI. Subsequent echocardiogram had shown inferior akinesis is normal LV systolic function. Cardiology consultation was called for the wall motion abnormality. Patient has no prior cardiac history as per the chart and has prior history of polysubstance abuse disorder. Patient came in with what appears to be drug overdose and respiratory failure with hypoxemia. Down time is unclear and known. Patient currently denies any chest pain or shortness of breath. Review of Systems Review of Systems: Yes Unobtainable due to mental status Neurologic: Reports confusion Psychiatric: Psychiatric: Reports confusion PMFSH Past Medical History Medical History (Updated 05/01/23 @ 13:31 by Phillip Monreal MD) Acute renal injury Aspiration pneumonitis Chronic schizophrenia Compartment syndrome of buttock Pneumothorax Pneumothorax, left PTSD (post-traumatic stress disorder) Rhabdomyolysis Schizoaffective disorder Surgical History Surgical History Hx of hand surgery Social History Social History Household Members: Unknown / Unable to assess Household Members Other:: [facility] Housing: Unknown / Unable to assess Housing Other:: [facility] Do you presently have visiting nurse or other home services: No Unable to assess alcohol history related to: Unable to respond and Unknown Alcohol intake: current Alcohol intake frequency: does not drink Patient Tobacco Use Status: Tobacco use Unknown Tobacco use type: Cigar Cigarette Packs Per Day: 0.5 Cigarettes Per Day: 5 Years Smoked: 10 Second Hand Smoke Exposure: Yes Use of substances other than those prescribed or required for medical reasons: Yes Substance Use Type: Marijuana Currently Displaying Signs/Symptoms of Drug Intoxication Withdrawal: No Advance Directives: No service: No Sexual orientation: Straight/Heterosexual Meds Allergies Allergy/AdvReac Type Severity Reaction Status Date / Time Penicillins [PCN] Allergy Unknown UNKNOWN Verified 12/12/21 23:33 Active Medications: Current Medications Acetaminophen (Acetaminophen Oral Liquid 650 Mg/20.3 Ml Solution) 650 mg PO Q6H PRN PRN Reason: Fever Last Admin: 04/20/23 19:15 Dose: 650 mg Aspirin (Aspirin 81 Mg Tab.Chew) 81 mg PO DAILY [facility] Last Admin: 05/01/23 09:50 Dose: 81 mg Heparin Sodium (Porcine) (Heparin Sodium,Porcine 5,000 Unit/Ml Vial) 5,000 unit SUBCUT Q8H [facility] Last Admin: 05/01/23 12:41 Dose: 5,000 unit Naloxone HCl (Naloxone Hcl 0.4 Mg/Ml Vial) 0.2 mg IVPUSH Q2M PRN PRN Reason: Excessive sedation or RR < 8 Nystatin (Nystatin Powder 15 Gm Bottle) 1 appl TOPICAL TID [facility]; Protocol Last Admin: 05/01/23 09:50 Dose: 1 appl Olanzapine (Olanzapine 2.5 Mg Tablet) 2.5 mg PO BEDTIME [facility] Last Admin: 04/30/23 19:59 Dose: 2.5 mg Home Medications Medication Instructions Recorded Confirmed Last Taken Type ketoconazole 2 % topical cream 1 appl topical DAILY 04/08/23 04/08/23 Unknown History olanzapine 10 mg tablet 10 mg PO BEDTIME 04/08/23 04/08/23 Unknown History Physical Exam Vital Signs: Vital Signs: Last Vital Signs Temp 98.1 F 05/01/23 11:37 Pulse 93 05/01/23 11:37 Resp 20 05/01/23 11:37 BP 129/78 05/01/23 11:37 Pulse Ox 97 05/01/23 11:37 O2 Del Method Room Air 05/01/23 11:37 O2 Flow Rate 18 04/08/23 09:15 FiO2 30 04/23/23 11:00 BMI result Body Mass Index 24.8 Const: General: cooperative, comfortable, no acute distress, alert, awake and confusion Nutritional Appearance: average body habitus Orientation/consciousness: confusion Limitations: no limitations HEENT: Head: Yes normocephalic and Yes atraumatic Neck: Neck: Yes trachea midline, Yes supple and Yes no JVD Resp: Effort & Inspection: normal respiratory effort Auscultation: clear to auscultation bilaterally Cardio: Jugular venous distension: no JVD Palpation: normal PMI Rate: regular rate Rhythm: regular rhythm Heart sounds: S1 normal heart sound present, S2 normal heart sound present, no click, no gallops, no murmurs and no rubs GI: Auscultation: normal bowel sounds Skin: General skin exam: no rashes or lesions noted Neuro: General: moves all extremities and confusion Extrem: General: Yes no clubbing, cyanosis or edema Objective Labs and Meds 04/29/23 06:25 04/29/23 06:25 Assessment and Plan (1) Myocardial infarction: Status: Acute Myocardial infarction on admission to the ICU most likely related to severe hypoxemia weight resultant inferior wall motion abnormality on echocardiogram with preserved LV systolic function. This is unusual at his age although still possible in the RCA territory. I would treat him with medically at this point time given his cognitive dysfunction related to anoxic encephalopathy. Will give him aspirin, metoprolol and statin therapy. Can pursue outpatient workup with myocardial perfusion imaging to further guide treatment although likelihood of obstructive coronary artery disease is low. Will sign of the case at this point time and set up for outpatient workup and follow-up. Thank you for allowing me to partake in his care Time Spent With Patient Time: Total time managing care of this patient today ____ minutes. Procedures Date of Service Date of Service: 05/01/23
--- NOTE | 2023-05-01 14:47 | P.PNIM_ITS ---
Subjective Subjective Date of Service: 05/01/23 Interval History: seen and examined this morning follow up for for encephalopathy awake, alert, answering some yes/no questions today declines having any pain in chest or abdomen Review of Systems Review of Systems: Yes all other systems are reviewed and are negative Constitutional Constitutional: Denies fever(s) Cardiovascular Cardiovascular: Denies chest pain Gastrointestinal Gastrointestinal: Denies abdominal pain Physical Exam Vital Signs: Vital Signs: Last Vital Signs Temp 98.1 F 05/01/23 11:37 Pulse 93 05/01/23 11:37 Resp 20 05/01/23 11:37 BP 129/78 05/01/23 11:37 Pulse Ox 97 05/01/23 11:37 O2 Del Method Room Air 05/01/23 11:37 O2 Flow Rate 18 04/08/23 09:15 FiO2 30 04/23/23 11:00 BMI result Body Mass Index 24.8 Const: General: alert and awake Nutritional Appearance: average body habitus Resp: Effort & Inspection: normal respiratory effort, no respiratory distress and no use of accessory muscles Cardio: Rate: regular rate Heart sounds: S1 normal heart sound present and S2 normal heart sound present GI: Inspection: No distended Palpation (GI): Soft to palpation Neuro: Other: wiggles toes, not following all commands Extrem: General: Yes no pedal edema Objective Data Active Medications Acetaminophen (Acetaminophen Oral Liquid 650 Mg/20.3 Ml Solution) 650 mg PO Q6H PRN PRN Reason: Fever Last Admin: 04/20/23 19:15 Dose: 650 mg Documented By: CHANELLE Aspirin (Aspirin 81 Mg Tab.Chew) 81 mg PO DAILY [facility] Last Admin: 05/01/23 09:50 Dose: 81 mg Documented By: DIAZ Heparin Sodium (Porcine) (Heparin Sodium,Porcine 5,000 Unit/Ml Vial) 5,000 unit SUBCUT Q8H [facility] Last Admin: 05/01/23 12:41 Dose: 5,000 unit Documented By: DIAZ Naloxone HCl (Naloxone Hcl 0.4 Mg/Ml Vial) 0.2 mg IVPUSH Q2M PRN PRN Reason: Excessive sedation or RR < 8 Nystatin (Nystatin Powder 15 Gm Bottle) 1 appl TOPICAL TID [facility]; Protocol Last Admin: 05/01/23 09:50 Dose: 1 appl Documented By: HO.MOHAMER Olanzapine (Olanzapine 2.5 Mg Tablet) 2.5 mg PO BEDTIME [facility] Last Admin: 04/30/23 19:59 Dose: 2.5 mg Documented By: BERNARD Labs 04/29/23 06:25 04/29/23 06:25 Assessment and Plan (1) Anoxic encephalopathy: Status: Acute Plan This is a 28-year-old man with underlying history of schizophrenia, alcohol use, marijuana use?admitted on 04/08/2023 after he was noted to be unresponsive by his girlfriend for unclear amount of time. Patient was transported by EMS to emergency room where he was intubated for hypoxia and respiratory distress.? On further evaluation patient with imaging finding of aspiration and left pneumothorax.? Initial left mid axillary chest tube placed in emergency room with persistence of pneumothorax and questionable subdiaphragmatic placement.? Chest tube removed and replaced with left midclavicular in 3rd intercostal space with air evacuation and improvement in pneumothorax.? Patient also noted to have acute kidney injury and rhabdomyolysis and started on IV fluid hydration. He underwent right gluteal fasciotomy with significant improvement in his CPK and renal function.? However, remains persistently encephalopathic.? MRI on 04/10/2023 with bilateral cerebral anoxic related encephalopathy. ? Evaluated by neurology with? prognosis consider to be guarded, but not catastrophic. Overall or with slow neurologic improvement, With significant improvement on 04/23/2023, following commands with some delay. extubated on 04/23/2023. Right foot pain xray negative venous doppler us neg Anoxic brain injury secondary to aspiration pneumonia related to alcohol binge episode with anoxic encephalopathy hemodynamically stable plan to transfer to rehab when medically clear continue PT/OT OOB to chair acute respiratory failure with hypoxia secondary to aspiration pneumonitis, pneumothorax s/p treatment with unasyn requiring intubation, extubated 04/23 now on room air Gluteal compartment syndrome s/p right gluteal fasciotomy 04/08 sutures removed no further surgical intervention required at this time NSTEMI s/p heparin drip echo with preserved LVEF-basal inferior akinesis, regional wall motion abnormalities seen by cardiology - will need outpatient ischemic workup medical management with asa, statin, BB pneumothorax s/p left chest tube placement and subsequent removal resolved acute renal failure secondary to rhabdo resolved with IV fluids normocytic anemia H/H stable rhabdomyolysis secondary to unresponsiveness s/p right gluteal fasciotomy schizophrenia on zyprexa at baseline, resumed on lower dose 04/29 DVT prophylaxis with Heparin Attending Dr. Treadwell DISPO plan for extensive rehab Has CDH, guardian Requires continued hospitalization for safe discharge to rehabilitation Time Spent With Patient Time: Total time managing care of this patient today ____ minutes. Quality Stroke Does the patient have a stroke diagnosis?: No VTE Prior VTE?: No VTE Risk Level:: Medical - moderate - high VTE Device Contraindication: N/A - Device Ordered VTE Drug Contraindication: N/A - Med Ordered
[2023-05-01 15:33] VITALS: BP 122/70; PULSE 85; RESP 20; TEMP 36.9; O2SAT 96
[2023-05-01 19:45] VITALS: BP 143/76; PULSE 63; RESP 20; TEMP 36.7; O2SAT 98
[2023-05-01] MEDS: Metoprolol Tartrate 12.5 MG HALFTAB PO (23:06)
[2023-05-01] MEDS: Atorvastatin Calcium 40 MG TABLET PO (23:07)
[2023-05-01] MEDS: OLANZapine 2.5 MG TABLET PO (23:07)
[2023-05-02] VITALS (7 sets, daily range): BP systolic 120–141; BP diastolic 71–82; PULSE 67–84; RESP 18–20; TEMP 36.5–37.8; O2SAT 96–97; BMI 25.1
[2023-05-02] MEDS: Heparin Sodium,Porcine 5,000 UNIT/ML VIAL 5000 UNIT SUBCUT ×3 (04:20→21:16)
[2023-05-02 06:26] LABS: Anion Gap 14 (12-20); Blood Urea Nitrogen 13 mg/dL (9-16); Calcium 9.6 mg/dL (8.4-10.2); Carbon Dioxide 22 mmol/L (22-29); Chloride 103 mmol/L (96-108); Creatinine Clr Calc Pharmacy 160.5; Estimated Glomerular Filt Rate > 60; Glucose Random 107 mg/dL (60-115); Potassium 4.1 mmol/L (3.3-5.1); Sodium 135 mmol/L (135-145)
[2023-05-02] MEDS: Metoprolol Tartrate 12.5 MG HALFTAB PO ×2 (08:23→21:16)
[2023-05-02] MEDS: Aspirin 81 MG TAB.CHEW PO (08:23)
[2023-05-02] MEDS: Nystatin Powder 15 GM BOTTLE 1 APPL TOPICAL ×3 (08:23→21:19)
--- NOTE | 2023-05-02 14:39 | P.PNIM_ITS ---
Subjective Subjective Date of Service: 05/02/23 Interval History: seen and examined this morning follow up for anoxic brain injury awake, alert, making eye contact but not answering questions. unable to obtain ROS Physical Exam Vital Signs: Vital Signs: Last Vital Signs Temp 98.4 F 05/02/23 12:00 Pulse 67 05/02/23 12:00 Resp 20 05/02/23 12:00 BP 132/79 05/02/23 12:00 Pulse Ox 97 05/02/23 12:00 O2 Del Method Room Air 05/02/23 12:00 O2 Flow Rate 18 04/08/23 09:15 FiO2 30 04/23/23 11:00 BMI result Body Mass Index 25.1 Const: General: alert and awake Nutritional Appearance: average body habitus Resp: Effort & Inspection: normal respiratory effort, no respiratory distress and no use of accessory muscles Cardio: Rate: regular rate Heart sounds: S1 normal heart sound present and S2 normal heart sound present GI: Inspection: No distended Palpation (GI): Soft to palpation Neuro: Other: not following commands Extrem: General: Yes no pedal edema Objective Data Active Medications Acetaminophen (Acetaminophen Oral Liquid 650 Mg/20.3 Ml Solution) 650 mg PO Q6H PRN PRN Reason: Fever Last Admin: 04/20/23 19:15 Dose: 650 mg Documented By: CHANELLE Aspirin (Aspirin 81 Mg Tab.Chew) 81 mg PO DAILY [facility] Last Admin: 05/02/23 08:23 Dose: 81 mg Documented By: VINCENT Atorvastatin Calcium (Atorvastatin Calcium 40 Mg Tablet) 40 mg PO BEDTIME [facility] Last Admin: 05/01/23 23:07 Dose: 40 mg Documented By: KIERA Heparin Sodium (Porcine) (Heparin Sodium,Porcine 5,000 Unit/Ml Vial) 5,000 unit SUBCUT Q8H [facility] Last Admin: 05/02/23 13:19 Dose: 5,000 unit Documented By: VINCENT Metoprolol Tartrate (Metoprolol Tartrate 12.5 Mg Halftab) 12.5 mg PO BID [facility]; Protocol Last Admin: 05/02/23 08:23 Dose: 12.5 mg Documented By: VINCENT Naloxone HCl (Naloxone Hcl 0.4 Mg/Ml Vial) 0.2 mg IVPUSH Q2M PRN PRN Reason: Excessive sedation or RR < 8 Nystatin (Nystatin Powder 15 Gm Bottle) 1 appl TOPICAL TID [facility]; Protocol Last Admin: 05/02/23 14:04 Dose: 1 appl Documented By: VINCENT Olanzapine (Olanzapine 2.5 Mg Tablet) 2.5 mg PO BEDTIME [facility] Last Admin: 05/01/23 23:07 Dose: 2.5 mg Documented By: KIERA Labs 04/29/23 06:25 05/02/23 05:50 Labs: Laboratory Results - last 24 hr 05/02/23 05:50 Anion Gap 14 Estim Creat Clear Calc 160.5 Estimated GFR > 60 Random Glucose 107 Calcium 9.6 Assessment and Plan (1) Anoxic encephalopathy: Status: Acute Plan This is a 28-year-old man with underlying history of schizophrenia, alcohol use, marijuana use?admitted on 04/08/2023 after he was noted to be unresponsive by his girlfriend for unclear amount of time. Patient was transported by EMS to emergency room where he was intubated for hypoxia and respiratory distress.? On further evaluation patient with imaging finding of aspiration and left pneumothorax.? Initial left mid axillary chest tube placed in emergency room wi th persistence of pneumothorax and questionable subdiaphragmatic placement.? Chest tube removed and replaced with left midclavicular in 3rd intercostal space with air evacuation and improvement in pneumothorax.? Patient also noted to have acute kidney injury and rhabdomyolysis and started on IV fluid hydration. He underwent right gluteal fasciotomy with significant improvement in his CPK and renal function.? However, remains persistently encephalopathic.? MRI on 04/10/2023 with bilateral cerebral anoxic related encephalopathy. ? Evaluated by neurology with prognosis consider to be guarded, but not catastrophic. Overall with slow neurologic improvement, With significant improvement on 04/23/2023. extubated 04/23/2023 and downgraded to the medical floor on 04/25 Right foot pain xray negative venous doppler us neg Anoxic brain injury secondary to aspiration pneumonia related to polysubstance overdose with anoxic encephalopathy hemodynamically stable continue PT/OT OOB to chair acute respiratory failure with hypoxia secondary to aspiration pneumonitis, pneumothorax s/p treatment with unasyn requiring intubation, extubated 04/23 now on room air Gluteal compartment syndrome s/p right gluteal fasciotomy 04/08 sutures removed no further surgical intervention required at this time NSTEMI s/p heparin drip echo with preserved LVEF-basal inferior akinesis, regional wall motion abnorma lities seen by cardiology - will need outpatient ischemic workup medical management with asa, statin, BB pneumothorax s/p left chest tube placement and subsequent removal resolved acute renal failure secondary to rhabdo resolved with IV fluids normocytic anemia H/H stable rhabdomyolysis secondary to unresponsiveness s/p right gluteal fasciotomy schizophrenia on zyprexa at baseline, resumed on lower dose 04/29 DVT prophylaxis with Heparin Attending Dr. Anita WALLIS plan for extensive rehab Has [facility] guardian, awaiting amendment to guardianship with right to admit Requires continued hospitalization for safe discharge to rehabilitation Time Spent With Patient Time: Total time managing care of this patient today ____ minutes. Quality Stroke Does the patient have a stroke diagnosis?: No VTE Prior VTE?: No VTE Risk Level:: Medical - moderate - high VTE Device Contraindication: N/A - Device Ordered VTE Drug Contraindication: N/A - Med Ordered
[2023-05-02] MEDS: OLANZapine 2.5 MG TABLET PO (21:16)
[2023-05-02] MEDS: Acetaminophen Oral Liquid 650 MG/20.3 ML SOLUTION PO (21:16)
[2023-05-02] MEDS: Atorvastatin Calcium 40 MG TABLET PO (21:16)
[2023-05-03 03:28] VITALS: BP 133/88; PULSE 94; RESP 18; TEMP 37.4; O2SAT 95
[2023-05-03] MEDS: Heparin Sodium,Porcine 5,000 UNIT/ML VIAL 5000 UNIT SUBCUT ×3 (03:49→20:51)
[2023-05-03 06:00] VITALS: BMI 23.9
[2023-05-03 07:43] VITALS: BP 131/79; PULSE 93; RESP 20; TEMP 37.3; O2SAT 96
[2023-05-03] MEDS: Metoprolol Tartrate 12.5 MG HALFTAB PO ×2 (08:19→20:51)
[2023-05-03] MEDS: Aspirin 81 MG TAB.CHEW PO (08:20)
[2023-05-03] MEDS: Nystatin Powder 15 GM BOTTLE 1 APPL TOPICAL ×2 (08:22→14:20)
--- NOTE | 2023-05-03 10:07 | HO.PM.IMPN ---
Subjective Subjective Date of Service: 05/03/23 Interval History: seen and examined this morning follow up for anoxic brain injury awake and alert. initially wouldn't open eyes, eventually did but did not respond verbally. was being fed and chewing without difficulty. unable to obtain ROS Physical Exam Vital Signs: Vital Signs: Last Vital Signs Temp 99.1 F 05/03/23 07:43 Pulse 93 05/03/23 07:43 Resp 20 05/03/23 07:43 BP 131/79 05/03/23 07:43 Pulse Ox 96 05/03/23 07:43 O2 Del Method Room Air 05/03/23 07:43 O2 Flow Rate 18 04/08/23 09:15 FiO2 30 04/23/23 11:00 BMI result Body Mass Index 23.9 Const: Other: observed sitting in bed. Awake, alert. Appears to be in no acute distress unable to assess orientation as patient does not respond to questions (to me) reportedly has been talking with PT and others General: alert and awake Nutritional Appearance: thin Resp: Effort & Inspection: normal respiratory effort, no respiratory distress and no use of accessory muscles Cardio: Rate: regular rate Heart sounds: S1 normal heart sound present and S2 normal heart sound present GI: Other: appears nontender Inspection: No distended Palpation (GI): Soft to palpation Skin: Other: right gluteal faciotomy incision well healing Neuro: Other: not following commands Extrem: General: Yes no pedal edema Objective Data Active Medications Acetaminophen (Acetaminophen Oral Liquid 650 Mg/20.3 Ml Solution) 650 mg PO Q6H PRN PRN Reason: Fever Last Admin: 05/02/23 21:16 Dose: 650 mg Documented By: LAKSHMI Aspirin (Aspirin 81 Mg Tab.Chew) 81 mg PO DAILY [facility] Last Admin: 05/03/23 08:20 Dose: 81 mg Documented By: MESERET Atorvastatin Calcium (Atorvastatin Calcium 40 Mg Tablet) 40 mg PO BEDTIME [facility] Last Admin: 05/02/23 21:16 Dose: 40 mg Documented By: LAKSHMI Heparin Sodium (Porcine) (Heparin Sodium,Porcine 5,000 Unit/Ml Vial) 5,000 unit SUBCUT Q8H [facility] Last Admin: 05/03/23 03:49 Dose: 5,000 unit Documented By: LAKSHMI Metoprolol Tartrate (Metoprolol Tartrate 12.5 Mg Halftab) 12.5 mg PO BID [facility]; Protocol Last Admin: 05/03/23 08:19 Dose: 12.5 mg Documented By: MESERET Naloxone HCl (Naloxone Hcl 0.4 Mg/Ml Vial) 0.2 mg IVPUSH Q2M PRN PRN Reason: Excessive sedation or RR < 8 Nystatin (Nystatin Powder 15 Gm Bottle) 1 appl TOPICAL TID [facility]; Protocol Last Admin: 05/03/23 08:22 Dose: 1 appl Documented By: MESERET Olanzapine (Olanzapine 2.5 Mg Tablet) 2.5 mg PO BEDTIME [facility] Last Admin: 05/02/23 21:16 Dose: 2.5 mg Documented By: LAKSHMI Labs 04/29/23 06:25 05/02/23 05:50 Assessment and Plan (1) Anoxic encephalopathy: Status: Acute Plan This is a 28-year-old man with underlying history of schizophrenia, alcohol use, marijuana use?admitted on 04/08/2023 after he was noted to be unresponsive by his girlfriend for unclear amount of time. Patient was transported by EMS to emergency room where he was intubated for hypoxia and respiratory distress.? On further evaluation patient with imaging finding of aspiration and left pneumothorax.? Initial left mid axillary chest tube placed in emergency room with persistence of pneumothorax and questionable subdiaphragmatic placement.? Chest tube removed and replaced with left midclavicular in 3rd intercostal space with air evacuation and improvement in pneumothorax.? Patient also noted to have acute kidney injury and rhabdomyolysis and started on IV fluid hydration. He underwent right gluteal fasciotomy with significant improvement in his CPK and renal function.? However, remains persistently encephalopathic.? MRI on 04/10/2023 with bilateral cerebral anoxic related encephalopathy. ? Evaluated by neurology with prognosis consider to be guarded, but not catastrophic. Overall with slow neurologic improvement, With significant improvement on 04/23/2023. extubated 04/23/2023 and downgraded to the medical floor on 04/25 Right foot pain xray negative venous doppler us neg Anoxic brain injury secondary to aspiration pneumonia related to polysubstance overdose with anoxic encephalopathy hemodynamically stable continue PT/OT OOB to chair acute respiratory failure with hypoxia secondary to aspiration pneumonitis, pneumothorax s/p treatment with unasyn requiring intubation, extubated 04/23 now on room air Gluteal compartment syndrome s/p right gluteal fasciotomy 04/08 sutures removed no further surgical intervention required at this time NSTEMI s/p heparin drip echo with preserved LVEF-basal inferior akinesis, regional wall motion abnormalities seen by cardiology - will need outpatient ischemic workup medical management with asa, statin, BB pneumothorax s/p left chest tube placement and subsequent removal resolved acute renal failure secondary to rhabdo resolved with IV fluids normocytic anemia H/H stable rhabdomyolysis secondary to unresponsiveness s/p right gluteal fasciotomy schizophrenia on zyprexa at baseline, resumed on lower dose 04/29 DVT prophylaxis with Heparin Attending Dr. Garcia DISPO plan for extensive rehab Has [facility] guardian, awaiting amendment to guardianship with right to admit Requires continued hospitalization for safe discharge to rehabilitation Time Spent With Patient Time: Total time managing care of this patient today ____ minutes. Quality Stroke Does the patient have a stroke diagnosis?: No VTE Prior VTE?: No VTE Risk Level:: Medical - moderate - high VTE Device Contraindication: N/A - Device Ordered VTE Drug Contraindication: N/A - Med Ordered
[2023-05-03 11:03] VITALS: BP 138/84; PULSE 93; RESP 20; TEMP 37.2; O2SAT 97
[2023-05-03 15:23] VITALS: BP 117/62; PULSE 77; RESP 18; TEMP 37; O2SAT 96
[2023-05-03 19:11] VITALS: BP 129/71; PULSE 92; RESP 18; TEMP 36.7; O2SAT 97
[2023-05-03] MEDS: OLANZapine 2.5 MG TABLET PO (20:51)
[2023-05-03] MEDS: Atorvastatin Calcium 40 MG TABLET PO (20:51)
[2023-05-04] VITALS: BP 120/71; PULSE 93; RESP 20; TEMP 38.1; O2SAT 97
[2023-05-04 03:22] VITALS: BP 107/68; PULSE 78; RESP 18; TEMP 37.2; O2SAT 97
[2023-05-04 06:00] VITALS: BMI 24.3
[2023-05-04] MEDS: Heparin Sodium,Porcine 5,000 UNIT/ML VIAL 5000 UNIT SUBCUT ×3 (06:30→20:23)
[2023-05-04 07:39] VITALS: BP 126/80; PULSE 60; RESP 20; TEMP 36.6; O2SAT 97
[2023-05-04] MEDS: Aspirin 81 MG TAB.CHEW PO (09:41)
[2023-05-04] MEDS: Metoprolol Tartrate 12.5 MG HALFTAB PO ×2 (09:41→20:24)
[2023-05-04] MEDS: Nystatin Powder 15 GM BOTTLE 1 APPL TOPICAL ×3 (09:42→20:25)
[2023-05-04 11:18] VITALS: BP 117/73; PULSE 63; RESP 20; TEMP 36.8; O2SAT 99
--- NOTE | 2023-05-04 11:48 | MHC.CM.PN ---
Addendum entered by Carlota Che 05/04/23 14:55: This CM spoke with [facility] nurse Kaela to provide an update. Kaela voiced some concerns with pts mental state and she is worried that the pt may be feeling depressed, PA on case updated. Original Note: Pt medically cleared for D/C however, we continue to search for bed placement for pt. SNF referral expanded today. Also spoke with Nicole from [facility] and pt is not meeting the high level of care to be appropriate for placement there, additionally per Nicole [facility] doesn't give auth for rehab. CM will continue to follow and search for appropriate bed placement for pt.
[2023-05-04 15:26] VITALS: BP 147/93; PULSE 66; RESP 17; TEMP 36.4; O2SAT 96
--- NOTE | 2023-05-04 16:42 | HO.PM.IMPN ---
Subjective Subjective Date of Service: 05/04/23 Interval History: seen and examined this morning follow up for anoxic brain injury awake and alert. slow verbal responses. following ssimple commands, but with slow response. Review of Systems Review of Systems: Yes Unobtainable due to mental condition and Unobtainable due to mental status Physical Exam Vital Signs: Vital Signs: Last Vital Signs Temp 97.5 F 05/04/23 15:26 Pulse 66 05/04/23 15:26 Resp 17 05/04/23 15:26 BP 147/93 H 05/04/23 15:26 Pulse Ox 96 05/04/23 15:26 O2 Del Method Room Air 05/04/23 15:26 O2 Flow Rate 18 04/08/23 09:15 FiO2 30 04/23/23 11:00 BMI result Body Mass Index 24.3 Constitutional - Awake and Alert, No apparent distress Eyes - PERRLA, EOMI Cardiovascular - S1S2, RRR, No edema Respiratory - Normal lung expansion, Normal respiratory effort, No respiratory distress, CTA bilaterally Gastrointestinal - NT / ND; +BS; No rebound or guarding Extremities - no calf tenderness bilaterally, no swelling Skin - Warm/Dry. gluteal incision healing well Neurological - Awake and alert, slow short phrase/one word responses, following some simple commands, slight hand grasp 4/5 strength. Psychological - depressed affect Objective Data Active Medications Acetaminophen (Acetaminophen Oral Liquid 650 Mg/20.3 Ml Solution) 650 mg PO Q6H PRN PRN Reason: Fever Last Admin: 05/02/23 21:16 Dose: 650 mg Documented By: LAKSHMI Aspirin (Aspirin 81 Mg Tab.Chew) 81 mg PO DAILY [facility] Last Admin: 05/04/23 09:41 Dose: 81 mg Documented By: DAVID Atorvastatin Calcium (Atorvastatin Calcium 40 Mg Tablet) 40 mg PO BEDTIME [facility] Last Admin: 05/03/23 20:51 Dose: 40 mg Documented By: MISTY Heparin Sodium (Porcine) (Heparin Sodium,Porcine 5,000 Unit/Ml Vial) 5,000 unit SUBCUT Q8H [facility] Last Admin: 05/04/23 13:23 Dose: 5,000 unit Documented By: DAVID Metoprolol Tartrate (Metoprolol Tartrate 12.5 Mg Halftab) 12.5 mg PO BID [facility]; Protocol Last Admin: 05/04/23 09:41 Dose: 12.5 mg Documented By: DAVID Naloxone HCl (Naloxone Hcl 0.4 Mg/Ml Vial) 0.2 mg IVPUSH Q2M PRN PRN Reason: Excessive sedation or RR < 8 Nystatin (Nystatin Powder 15 Gm Bottle) 1 appl TOPICAL TID [facility]; Protocol Last Admin: 05/04/23 13:23 Dose: 1 appl Documented By: DAVID Olanzapine (Olanzapine 2.5 Mg Tablet) 2.5 mg PO BEDTIME [facility] Last Admin: 05/03/23 20:51 Dose: 2.5 mg Documented By: ARMSTRH Labs 04/29/23 06:25 05/02/23 05:50 Assessment and Plan (1) Anoxic encephalopathy: Status: Acute Plan This is a 28-year-old man with underlying history of schizophrenia, alcohol use, marijuana use?admitted on 04/08/2023 after he was noted to be unresponsive by his girlfriend for unclear amount of time. Patient was transported by EMS to emergency room where he was intubated for hypoxia and respiratory distress.? On further evaluation patient with imaging finding of aspiration and left pneumothorax.? Initial left mid axillary chest tube placed in emergency room with persistence of pneumothorax and questionable subdiaphragmatic placement.? Chest tube removed and replaced with left midclavicular in 3rd intercostal space with air evacuation and improvement in pneumothorax.? Patient also noted to have acute kidney injury and rhabdomyolysis and started on IV fluid hydration. He underwent right gluteal fasciotomy with significant improvement in his CPK and renal function.? However, remains persistently encephalopathic.? MRI on 04/10/2023 with bilateral cerebral anoxic related encephalopathy. ? Evaluated by neurology with prognosis consider to be guarded, but not catastrophic. Overall with slow neurologic improvement, With significant improvement on 04/23/2023. extubated 04/23/2023 and downgraded to the medical floor on 04/25. Slight improvements in responsiveness Right foot pain xray negative venous doppler us neg Anoxic brain injury secondary to aspiration pneumonia related to polysubstance overdose with anoxic encephalopathy hemodynamically stable continue PT/OT OOB to chair Some improvement. Following simple commands. Slow to speak in one word or very short phrases acute respiratory failure with hypoxia secondary to aspiration pneumonitis, pneumothorax s/p treatment with unasyn requiring intubation, extubated 04/23 now on room air Gluteal compartment syndrome s/p right gluteal fasciotomy 04/08 sutures removed no further surgical intervention required at this time NSTEMI s/p heparin drip echo with preserved LVEF-basal inferior akinesis, regional wall motion abnormalities seen by cardiology - will need outpatient ischemic workup medical management with asa, statin, BB pneumothorax s/p left chest tube placement and subsequent removal resolved acute renal failure secondary to rhabdo resolved with IV fluids normocytic anemia H/H stable rhabdomyolysis secondary to unresponsiveness s/p right gluteal fasciotomy schizophrenia on zyprexa at baseline, resumed on lower dose 04/29 seems more depress. Psychiatry consult DVT prophylaxis with Heparin Attending Dr. Reyes DISPReagan plan for extensive rehab Has [facility] guardian, awaiting amendment to guardianship with right to admit Requires continued hospitalization for safe discharge to rehabilitation Time Spent With Patient Time: Total time managing care of this patient today ____ minutes. Quality Stroke Does the patient have a stroke diagnosis?: No VTE Prior VTE?: No VTE Risk Level:: Medical - moderate - high VTE Device Contraindication: N/A - Device Ordered VTE Drug Contraindication: N/A - Med Ordered
--- NOTE | 2023-05-04 16:52 | PC.NURSE ---
Discharge paper work prepared by GENI Joseph
[2023-05-04 20:00] VITALS: BP 140/82; PULSE 68; RESP 20; TEMP 36.3; O2SAT 94
[2023-05-04] MEDS: Atorvastatin Calcium 40 MG TABLET PO (20:24)
[2023-05-04] MEDS: OLANZapine 2.5 MG TABLET PO (20:24)
[2023-05-05] VITALS (7 sets, daily range): BP systolic 125–152; BP diastolic 77–92; PULSE 66–79; RESP 14–18; TEMP 36.7–37.2; O2SAT 96–98; BMI 23.7
[2023-05-05] MEDS: Heparin Sodium,Porcine 5,000 UNIT/ML VIAL 5000 UNIT SUBCUT ×3 (04:53→20:52)
[2023-05-05] MEDS: Metoprolol Tartrate 12.5 MG HALFTAB PO ×2 (08:04→20:53)
[2023-05-05] MEDS: Aspirin 81 MG TAB.CHEW PO (08:04)
[2023-05-05] MEDS: Nystatin Powder 15 GM BOTTLE 1 APPL TOPICAL ×2 (08:16→20:54)
--- NOTE | 2023-05-05 13:23 | P.PNIM_ITS ---
Subjective Subjective Date of Service: 05/05/23 Interval History: seen and examined this morning follow up for anoxic brain injury awake and alert. slow verbal responses. following ssimple commands, but with slow response. selectively mute. Guardian/[facility] staff concerned his mentation is not improving. Would like another MRI and neuro eval. Looking for placement to brain center for rehab Review of Systems Review of Systems: Yes Unobtainable due to mental condition and Unobtainable due to mental status Physical Exam Vital Signs: Vital Signs: Last Vital Signs Temp 98.0 F 05/05/23 11:27 Pulse 74 05/05/23 11:27 Resp 18 05/05/23 11:27 BP 139/77 05/05/23 11:27 Pulse Ox 97 05/05/23 11:27 O2 Del Method Room Air 05/05/23 11:27 O2 Flow Rate 18 04/08/23 09:15 FiO2 30 04/23/23 11:00 BMI result Body Mass Index 23.7 Constitutional - Awake and Alert, No apparent distress Eyes - PERRLA, EOMI Cardiovascular - S1S2, RRR, No edema Respiratory - Normal lung expansion, Normal respiratory effort, No respiratory distress, CTA bilaterally Gastrointestinal - NT / ND; +BS; No rebound or guarding Extremities - no calf tenderness bilaterally, no swelling MSK- tenderness ankle bilaterally with passive ROM Skin - Warm/Dry. gluteal incision healing well Neurological - Awake and alert, slow short phrase/one word responses, following some simple commands, slight hand grasp 4/5 strength. Psychological - depressed affect Objective Data Active Medications Acetaminophen (Acetaminophen Oral Liquid 650 Mg/20.3 Ml Solution) 650 mg PO Q6H PRN PRN Reason: Fever Last Admin: 05/02/23 21:16 Dose: 650 mg Documented By: LAKSHMI Aspirin (Aspirin 81 Mg Tab.Chew) 81 mg PO DAILY [facility] Last Admin: 05/05/23 08:04 Dose: 81 mg Documented By: CLEMENCIA Atorvastatin Calcium (Atorvastatin Calcium 40 Mg Tablet) 40 mg PO BEDTIME [facility] Last Admin: 05/04/23 20:24 Dose: 40 mg Documented By: ANGEL Heparin Sodium (Porcine) (Heparin Sodium,Porcine 5,000 Unit/Ml Vial) 5,000 unit SUBCUT Q8H [facility] Last Admin: 05/05/23 12:32 Dose: 5,000 unit Documented By: CLEMENCIA Metoprolol Tartrate (Metoprolol Tartrate 12.5 Mg Halftab) 12.5 mg PO BID [facility]; Protocol Last Admin: 05/05/23 08:04 Dose: 12.5 mg Documented By: CLEMENCIA Naloxone HCl (Naloxone Hcl 0.4 Mg/Ml Vial) 0.2 mg IVPUSH Q2M PRN PRN Reason: Excessive sedation or RR < 8 Nystatin (Nystatin Powder 15 Gm Bottle) 1 appl TOPICAL TID [facility]; Protocol Last Admin: 05/05/23 08:16 Dose: 1 appl Documented By: CLEMENCIA Olanzapine (Olanzapine 2.5 Mg Tablet) 2.5 mg PO BEDTIME [facility] Last Admin: 05/04/23 20:24 Dose: 2.5 mg Documented By: WALIIT Labs 04/29/23 06:25 05/02/23 05:50 Assessment and Plan (1) Anoxic encephalopathy: Status: Acute (2) Myocardial infarction: Status: Acute (3) Polysubstance abuse: Status: Acute (4) Opiate overdose: Status: Acute (5) Acute respiratory failure: Status: Acute (6) Schizophrenia: Status: Acute Plan This is a 28-year-old man with underlying history of schizophrenia, alcohol use, marijuana use?admitted on 04/08/2023 after he was noted to be unresponsive by his girlfriend for unclear amount of time. Patient was transported by EMS to emergency room where he was intubated for hypoxia and respiratory distress.? On further evaluation patient with imaging finding of aspiration and left pneumothorax.? Initial left mid axillary chest tube placed in emergency room with persistence of pneumothorax and questionable subdiaphragmatic placement.? Chest tube removed and replaced with left midclavicular in 3rd intercostal space with air evacuation and improvement in pneumothorax.? Patient also noted to have acute kidney injury and rhabdomyolysis and started on IV fluid hydration. He underwent right gluteal fasciotomy with significant improvement in his CPK and renal function.? However, remains persistently encephalopathic.? MRI on 04/10/2023 with bilateral cerebral anoxic related encephalopathy. ? Evaluated by neurology with prognosis consider to be guarded, but not catastrophic. Overall with slow neurologic improvement, With significant improvement on 04/23/2023. extubated 04/23/2023 and downgraded to the medical floor on 04/25. Limited improvement in responsiveness Right foot pain xray negative venous doppler us neg continue pt Anoxic brain injury secondary to aspiration pneumonia related to polysubstance overdose with anoxic encephalopathy hemodynamically stable continue PT/OT OOB to chair Some improvement. Following simple commands. Slow to speak in one word or very short phrases Guardian and [facility] nursing concerned about minimal progress. Would like another MRI. Neurology consulted to evaluate if this would be beneficial and for recommendations on placement (guardian/[facility] looking for brain focused rehab setting) Exhibiting some selective mutism- ?r/t schizophrenia as well as anoxia brain injury. Has Blane's order as well. Psych consult place acute respiratory failure with hypoxia secondary to aspiration pneumonitis, pneumothorax s/p treatment with unasyn requiring intubation, extubated 04/23 now on room air Gluteal compartment syndrome s/p right gluteal fasciotomy 04/08 sutures removed no further surgical intervention required at this time NSTEMI s/p heparin drip echo with preserved LVEF-basal inferior akinesis, regional wall motion abnorm alities seen by cardiology - will need outpatient ischemic workup medical management with asa, statin, BB acute pneumothorax s/p left chest tube placement and subsequent removal resolved acute renal failure secondary to rhabdo resolved with IV fluids normocytic anemia H/H stable rhabdomyolysis secondary to unresponsiveness s/p right gluteal fasciotomy schizophrenia on zyprexa at baseline, resumed on lower dose 04/29 seems more depress. Psychiatry consult DVT prophylaxis with Heparin Attending Dr. Treadwell DISPO plan for extensive rehab Has [facility] guardian, awaiting amendment to guardianship with right to admit Requires continued hospitalization for safe discharge to rehabilitation Time Spent With Patient Time: Total time managing care of this patient today ____ minutes. Quality Stroke Does the patient have a stroke diagnosis?: No VTE Prior VTE?: No VTE Risk Level:: Medical - moderate - high VTE Device Contraindication: N/A - Device Ordered VTE Drug Contraindication: N/A - Med Ordered
[2023-05-05] MEDS: Acetaminophen Oral Liquid 650 MG/20.3 ML SOLUTION PO (14:05)
--- NOTE | 2023-05-05 14:18 | MHC.CM.PN ---
EMR REVIEWED, CM MET W/PT'S GUARDIAN JASON THIS AM AT BEDSIDE, JASON REQUESTING UPDATE FROM HOSPITALIST AND QUESTIONING IF THERE WILL BE ANOTHER MRI DONE HE FELT PT SEEMS TO BE REGRESSING SINCE LAST WEEK, JASON REPORTS HE IS ALSO THE ANNE MONITOR AND HAS BEEN MADE AWARE PT HAS BEEN OFF OF HIS INVEGA SUSTENNA FOR 7 MONTHS PER [facility] NURSE, [facility] NURSE ALSO REPORTS PT HAD BEEN ON [employer] HOWEVER STOPPED TAKING THAT WELL. JASON REPORTS HE WAS UNAWARE PT WAS OFF THE INVEGA SUSTENNA FOR THAT LONG AND REPORTS HE WILL LEAVE IT UP TO OUR PROVIDERS TO RESTART. HOSPITALIST MADE AWARE VIA TIGER. JASON ALSO REPORTED [facility] WOULD LIKE A PROVIDER/TEAM MTG, CM CONTACTED [facility] NURSE RAY AT APPROX 11:40AM [phone] WHO REPORTS NO ONE IS AVAILABLE FOR MTG THIS WEEK D/T CAMP IN [place], RAY WILL ATTEMPT TO PLAN FOR EARLY NEXT WEEK AND ASKED CM TO CALL HER CELL PHONE [phone] IF NEEDING TO CONTACT HER THIS WEEK AND REPORTS SHE WILL BE BACK IN OFFICE ON THURSDAY. [facility] NURSE REQUESTING NEURO AND PSYCHIATRIC CONSULTS, BOTH HAVE BEEN ORDERED BY HOSPITALIST. REFERRAL SENT TO BOTH [facility] AND [facility], BRANDI REVIEWING AND CM AWAITING RESPONSE FROM [facility]. CM WILL CONT TO FOLLOW D/C NEEDS
--- NOTE | 2023-05-05 15:02 | P.CNPS_ITS ---
History of Present Illness Date of Service: 05/05/2023 Chief Complaint: Alteration of mental status, acute respiratory mireya Reason for Consult: Depression Requesting physician: Jannie Cooper Discussed with referring provider: Yes (text) Sources of Information: patient interviewed and chart reviewed Additional Sources of Information: Pt is a poor historian, slow to respond. Has good eye contact, extends his hand to connect and is mildly tearful. His answers are 1-2 short words. He is soft sp oken today. He acknowledges recall of tw from a previous admission with a nod. HPI Narrative: Freedom is a 28 yo male with a history of schizophrenia, alcohol use disorder, cannabis use disorder. Team reports admission on 04/08/23 when he was found unresponsive by his girlfriend. He was intubated by EMS, found to have aspir ation pneumonia and a L pneumothorax. He required chest tube and midclavicular, had JANNY, NSTEMI and rhabdomyolyis. R. gluteal fasciotomy improved CPK and renal functioning. MRI 04/10 indicated bilateral cerebral anoxic encephaolpathy. He was extubated successfully 04/23/23 and transitioned to medicine on 04/25/23. Team is seeing some improvement and are preparing him for rehabilitation level of care. Consult today is for depression and assessment of Olanzapine dosage. By history, during his last admission to [facility] he utilized 25 mg Olanzapine daily with 5 mg bid prn and Sertraline 25 mg daily. On admission, 10 mg Olanzapine daily is reported Past Psychiatric History: -[facility] 2020 with [facility] transfer Multiple hospital stays by history Hx of Blane's guardianship Hx of Depakote and Haldol Dec 100 mg/ml 1 ml, Invega Sustenna, Benztropine, Clonidine, Gabapentin, Olanzapine, Sertraline, Trazodone Medical Evaluation Reviewed: Yes Review of Systems Review of Systems Yes Unobtainable due to mental status [facility] Medical History (Updated 05/05/23 @ 15:36 by Sherlyn Juarez APRN) Acute renal injury Aspiration pneumonitis Chronic schizophrenia Compartment syndrome of buttock Pneumothorax Pneumothorax, left PTSD (post-traumatic stress disorder) Rhabdomyolysis Schizoaffective disorder Surgical History Hx of hand surgery Family History: Mental illness on father's side along with addiction-father with alcoholism Substance History: Alcohol, Cannabis Trauma History: Significant trauma by history Diagnostics Vital Signs (24Hr): Vital Signs - 24 hr 05/04/23 15:26 05/04/23 20:00 05/05/23 00:00 Temperature 97.5 F 97.3 F 98.4 F Pulse Rate 66 68 76 Respiratory Rate 17 20 18 Blood Pressure 147/93 H 140/82 H 137/85 Pulse Oximetry 96 94 97 Oxygen Delivery Method Room Air Room Air Room Air 05/05/23 03:28 05/05/23 07:37 05/05/23 11:27 Temperature 98.7 F 98.1 F 98.0 F Pulse Rate 68 77 74 Respiratory Rate 18 18 18 Blood Pressure 140/84 H 146/92 H 139/77 Pulse Oximetry 98 97 97 Oxygen Delivery Method Room Air Room Air Room Air BMI result Body Mass Index 23.7 Labs 04/29/23 06:25 05/02/23 05:50 Imaging Radiology Impressions: ITS Impressions Chest X-Ray 04/08/23 08:41 IMPRESSION: 1. New ETT catheter in good position. 2. Diffuse right lung and left mid and lower lung patchy opacity likely pulmonary edema or infiltrate. Head CT 04/08/23 09:53 IMPRESSION: No acute intracranial process seen. There is no acute fracture or dislocation cervical spine. There is mild straightening of cervical lordosis likely related to spasm or positional. There is endotracheal tube with its tip in the mid trachea. There is a right apical/upper lobe moderate parenchymal contusion/edema or infiltrate. Abdomen/Pelvis CT 04/08/23 10:08 IMPRESSION: Extended dependent bilateral infiltrates question aspiration. Left pneumothorax approximately 15-20% without shift. There are no rib fractures seen. No acute process seen in the abdomen or pelvis. Endotracheal tube and a Steen's catheter are in satisfactory position. Cervical Spine CT 04/08/23 10:08 IMPRESSION: No acute intracranial process seen. There is no acute fracture or dislocation cervical spine. There is mild straightening of cervical lordosis likely related to spasm or positional. There is endotracheal tube with its tip in the mid trachea. There is a right apical/upper lobe moderate parenchymal contusion/edema or infiltrate. Chest CT 04/08/23 10:08 IMPRESSION: Extended dependent bilateral infiltrates question aspiration. Left pneumothorax approximately 15-20% without shift. There are no rib fractures seen. No acute process seen in the abdomen or pelvis. Endotracheal tube and a Steen's catheter are in satisfactory position. Chest X-Ray 04/08/23 12:34 IMPRESSION: 1. Persistent left-sided pneumothorax with chest tube in place. It is difficult to tell if the chest tube is in the pleural space. Recommend seeing the chest tube is fluctuating with respirations. If this cannot be ascertained, a CT scan could always be performed to confirm placement. 2. Diffuse right-sided airspace disease with some improvement in the left-sided airspace disease. Chest X-Ray 04/08/23 14:26 IMPRESSION: Persistent left-sided pneumothorax with a chest tube along the left base. The exact tip of chest tube tip is not known since there is no reduction in the pneumothorax. A CT chest without contrast may be helpful. No change in bilateral interstitial infiltrates or edema. Chest X-Ray 04/08/23 15:15 IMPRESSION: Left basilar chest tube has been removed. There is a new chest tube and left midlung. There is near complete resolution of left pneumothorax. Stable endotracheal tube and bilateral lung infiltrates. Chest X-Ray 04/08/23 19:55 IMPRESSION: 1. Endotracheal tube terminates at 4.7 cm above the cory. 2. Right IJ CVC catheter with the tip projecting over the cavoatrial junction. 3. No significant residual pneumothorax. 4. Stable right greater than left airspace opacities. Chest X-Ray 04/09/23 21:42 IMPRESSION: 1. Support lines and catheters are in satisfactory position. 2. Patchy opacity right upper lobe, right lower lobe and left lower lobe infiltrates are unchanged.. Brain MRI 04/10/23 16:22 IMPRESSION: There are symmetrically distributed ill-defined signal changes involving the centrum semiovale of both cerebral hemispheres. This pattern of disease can be seen in the setting of delayed reversible post hypoxic leukoencephalopathy. Other toxic or metabolic etiologies are not definitively excluded. No intracranial mass effect or hydrocephalus. Chest X-Ray 04/13/23 13:56 IMPRESSION: 1. Significant improvement in right upper lobe infiltrate with minimal residual changes seen in the right lung base. 2. New enteric tube tip is below the diaphragm in stomach. 3. No change in support lines and catheters. Chest X-Ray 04/14/23 05:06 IMPRESSION: Nasogastric tube tip not definitely seen. Otherwise satisfactory position of support lines and tubes. No pneumothorax. Improving airspace disease. Chest X-Ray 04/18/23 09:07 IMPRESSION: Status post left chest tube removal with no pneumothorax identified. Improving right lung disease. Chest X-Ray 04/18/23 09:55 IMPRESSION: Endotracheal tube approximately 3.5 cm above the cory. Interval development of retrocardiac density likely related to left lower lobe atelectasis. Persistent right perihilar disease. No pneumothorax appreciated. Ankle X-Ray 04/27/23 13:00 IMPRESSION: Unremarkable examination. Foot X-Ray 04/27/23 13:00 IMPRESSION: Unremarkable examination. Venous Duplex 04/29/23 17:13 IMPRESSION: No DVT demonstrated in the right lower extremity. Mental Status Exam Mental Status Exam Patient Appearance: Fatigued Patient Orientation: Person Level of Consciousness: Awake and Alert Patient Behavior: Dependent, Cooperative, Anxious, Fatigued, Distractible, Confused, Good Eye Contact and Crying (tearful at times) Mood Description: Sad Affect Description: Flat Patient Cognition Impaired: Yes Ability to Follow Directions: Fair Speech Pattern: Impoverished, Difficulty Finding Words, Aphasic, Soft-Spoken, Delayed, Poor Articulation and Long Pauses Memory Description: Remote Impaired Hallucinations: None (Denies by head nod to perceptual alterations today) Delusions: Paranoid Ideation (?) Thought Process: Distracted, Rumination, Slowed Thinking and Confusion Thought Content: positive for [place], positive for Poverty of Content, positive for Slowed Thinking and positive for Suicidal Ideation (none currently) Depressive Symptoms: Unhappiness, Increased Fatigue and Difficulty Concentrating Judgement: Poor Medications Medications Current Medications Acetaminophen (Acetaminophen Oral Liquid 650 Mg/20.3 Ml Solution) 650 mg PO Q6H PRN PRN Reason: Fever Last Admin: 05/05/23 14:05 Dose: 650 mg Aspirin (Aspirin 81 Mg Tab.Chew) 81 mg PO DAILY [facility] Last Admin: 05/05/23 08:04 Dose: 81 mg Atorvastatin Calcium (Atorvastatin Calcium 40 Mg Tablet) 40 mg PO BEDTIME [facility] Last Admin: 05/04/23 20:24 Dose: 40 mg Heparin Sodium (Porcine) (Heparin Sodium,Porcine 5,000 Unit/Ml Vial) 5,000 unit SUBCUT Q8H [facility] Last Admin: 05/05/23 12:32 Dose: 5,000 unit Metoprolol Tartrate (Metoprolol Tartrate 12.5 Mg Halftab) 12.5 mg PO BID [facility]; Protocol Last Admin: 05/05/23 08:04 Dose: 12.5 mg Naloxone HCl (Naloxone Hcl 0.4 Mg/Ml Vial) 0.2 mg IVPUSH Q2M PRN PRN Reason: Excessive sedation or RR < 8 Nystatin (Nystatin Powder 15 Gm Bottle) 1 appl TOPICAL TID [facility]; Protocol Last Admin: 05/05/23 08:16 Dose: 1 appl Olanzapine (Olanzapine 2.5 Mg Tablet) 2.5 mg PO BEDTIME [facility] Last Admin: 05/04/23 20:24 Dose: 2.5 mg Allergies Allergies Allergy/AdvReac Type Severity Reaction Status Date / Time Penicillins [PCN] Allergy Unknown UNKNOWN Verified 12/12/21 23:33 Assessment & Plan Assessment & Plan (1) Schizophrenia: Qualifiers: Schizophrenia type: unspecified Qualified Code(s): F20.9 - Schizophreni a, unspecified Status: Acute Code(s): F20.9 - Schizophrenia, unspecified (2) Polysubstance abuse: Status: Acute Code(s): F19.10 - Other psychoactive substance abuse, uncomplicated (3) Anoxic encephalopathy: Status: Acute Code(s): G93.1 - Anoxic brain damage, not elsewhere classified Plan 28 yo male, history of schziophrenia, alcohol and cannabis use disorder s/p anoxic brain injury secondary to aspiration pneumonia from polysubstance overdose. Team is assisting pt in preparing for rehab admission. Pt exhibiting depressive sx per report. Plan: Begin Sertraline 25 mg daily (history of efficacy) Increase Olanzapine to 5 mg daily. Liver Function Tests 05/06/23 Will follow at your request. Total time managing care of this patient today ____ minutes. Patient educated on: medication risk/benefits Informed Consent: does not understand and further education needed
--- NOTE | 2023-05-05 15:06 | MHC.SL.DTX ---
Dysphagia Diet modifications: Last documented Solid diet consistencies: Regular Last documented Liquid consistency: Thin Last documented Medication Administration: Changes made to current diet?: No Liquid Consistency and Strategies: Liquid Intake Recommendation: Thin Compensatory Strategies for Safe Swallow: Small Sips Compensatory Strategies for Safe Swallow(b): Sitting Upright (90 deg) Double Swallow Small Bites and Sips Alternate Liquids/Solids Rate of Ingestion Change Avoid Specific Foods Solid Food Consistency: Dietary Recommendations: Regular Additional Modifications to Solids: Recommend pt continue with unmodified textures, thin liquids, and crushed pills in puree. 1:1 supervision and aspiration precautions. Encourage independence feeding while providing assistance as needed throughout meal. Pt still needs assistance with cutting food and opening containers.AIRCRAFT LOADMASTER SUPERINTENDENT to continue to follow to monitor diet toleration, receptive/expressive language & functional communication. Oral Medication Intake: Crushed with Puree Strategies and Precautions to be Taken for Safe Swallow: Sitting Upright (90 deg) Double Swallow Small Bites and Sips Alternate Liquids/Solids Rate of Ingestion Change Avoid Specific Foods Supervision While Eating and/Drinking: Total Assistance (1:1) Foods to Avoid: Hard, tough to chew solids Swallowing Recommended Treatments: Compens. Strategy Educat. Level of Impact on: Daily activities: Interpersonal interactions: Education: Employment: Community: Prognosis for Improvement: Recommendation for Speech: Inpatient Speech Therapy Comment: Frequency/Duration: Date Range for Service Req: Timeline to reassess: Additional Comments: Pt currently in IMC. Per CM, pt will need LTC Rehab. Continue to monitor expressive/receptive language & voice. Pt observed to present w/ soft voice on 04/28. No verbal responses on 04/27 or 04/29. Treatment: Pt expressing basic yes/no responses without significant content. His voice is notably stronger than at initial presentation. Pt appears anxious and he is fidgiting with his TV remote, causing his call carvalho to go off repeatedly per CERTIFIED WELLNESS PROGRAM MANAGER. Pt has his Lunch tray present with only 25% complete. He agrees to trial cereal with milk. When given the bowl and spoon he uses the bowl to sip out of. He proceeded to try and use the spoon as a straw. When corrected he became labile and tearful. AIRCRAFT LOADMASTER SUPERINTENDENT was able to feed him bites with no overt s/s of aspiration. Given today's findings, Pt will most likely require 1:1 assistance or supervision to ensure he is eating his meals. Per CM, Pt is likely to be a difficult rehab placement and may have a prolonged length of stay. Assessment: Mobile Device Engineer Clinican/Clinical Fellow: No Supervisory Statement: I have reviewed and agree with the student/clinical fellow's documentation: N/A Speech Language Pathologist: Akbar Guzmán M.A., CCC-AIRCRAFT LOADMASTER SUPERINTENDENT
--- NOTE | 2023-05-05 15:44 | MHC.CM.PN ---
CM RECEIVED EMAIL FROM CM DIRECTOR W/NOTICE OF HEARING TO EXPAND PT'S GUARDIANSHIP W/RIGHT TO ADMIT, COURT DATE IS May AT 11:30AM. CHD NURSE RAY UPDATED AT 3:40PM [phone].
--- NOTE | 2023-05-05 16:16 | P.CDIM_ITS ---
PROVIDER RESPONSE TEXT: To clarify, the appropriate diagnosis supported by the clinical indicators: Other (explain): NSTEMI related to severe hypoxemia QUERY TEXT: PHYSICIAN'S DOCUMENTATION REQUEST Date of Query: 05/04/2023 10:04 AM EDT Patient Name: Freedom Schwartz Admit Date: 04/08/2023 Dear Jannie Cooper, A review of the medical record indicates additional documentation may be needed. Please review below and update the documentation accordingly. Clinical Indicators: Troponin: 3247.4 2665.0 H Cardiology note 05/01 - Consult reason: Myocardial infarction, [place] on admission to the ICU/hypoxemia. Progress note: 04/30 - NSTEMI, s/p heparin drip Patient has no prior cardiac history Please clarify the type of the documented myocardial infarction: NSTEMI due to demand ischemia NSTEMI due to Type 2 None of the above Other Other (explain)Clinically unable to determine (explain)Thank you, Teetee Suazo, CCS, CDIS Use of terms such as suspected, likely, concern for, or probable (associated with a specific diagnosi s that is being evaluated, monitored, or treated as if it exists) are acceptable and can be coded in the inpatient se tting, when documented at the time of discharge. Please use your independent medical judgment in providing your response. THIS QUERY IS PART OF THE PERMANENT MEDICAL RECORD
--- NOTE | 2023-05-05 18:00 | PM.NEUROCN ---
History of Present Illness Data of Consult Service Date: 05/05/23 Primary Care Provider: Unknown Physician HPI Reason for consult: hypoxic encephalopathy I was asked to reevaluaate this 28-year-old man Who I had seen for an initial neurological consultation on 04/14/23 for hypoxic encephalopathy and reviewed his studies. Since then, he has made considerable recovery and is awake someetimes alert and following simple commands. He has a h/o schizophrenia, alcohol use, marijuana use?was admitted on 04/08/2023 after he was noted to be unresponsive by his girlfriend for unclear amount of time. He was intubated for hypoxia and respiratory distress, aspiration and left pneumothorax.? Patient also noted to have acute kidney injury and rhabdomyolysis and started on IV fluid hydration. His MRI brain on 04/12 showed diffuse white matter ischemic changes bilaterally in centrum semiovale. EEG Shows diffuse bifrontal delta slowing and occasional sharper frequencies from the posterior quadrants consistent with a Moderate diffuse encephalopathic process.? No seizure discharges.? Toxic screen was positive for marijuaana, fentanyl, and opiates Review of Systems Review of Systems: Yes all other systems are reviewed and are negative, unobtainable due to endotracheal tube, Unobtainable due to mental condition and Unobtainable due to mental status Constitutional: Constitutional: Denies fever(s) Cardiovascular: Cardiovascular: Denies chest pain Gastrointestinal: Gastrointestinal: Denies abdominal pain Neurologic: Reports confusion Psychiatric: Psychiatric: Reports confusion [facility] Past Medical History Medical History (Updated 05/05/23 @ 15:36 by Sherlyn Juarez APRN) Acute renal injury Aspiration pneumonitis Chronic schizophrenia Compartment syndrome of buttock Pneumothorax Pneumothorax, left PTSD (post-traumatic stress disorder) Rhabdomyolysis Schizoaffective disorder Surgical History Surgical History Hx of hand surgery Social History Social History Household Members: Unknown / Unable to assess Household Members Other:: longterm Housing: Unknown / Unable to assess Housing Other:: longterm Do you presently have visiting nurse or other home services: No Unable to assess alcohol history related to: Unable to respond and Unknown Alcohol intake: current Alcohol intake frequency: does not drink Patient Tobacco Use Status: Tobacco use Unknown Tobacco use type: Cigar Cigarette Packs Per Day: 0.5 Cigarettes Per Day: 5 Years Smoked: 10 Second Hand Smoke Exposure: Yes Use of substances other than those prescribed or required for medical reasons: Yes Substance Use Type: Marijuana Currently Displaying Signs/Symptoms of Drug Intoxication Withdrawal: No Advance Directives: No service: No Sexual orientation: Straight/Heterosexual Meds Allergies Allergy/AdvReac Type Severity Reaction Status Date / Time Penicillins [PCN] Allergy Unknown UNKNOWN Verified 12/12/21 23:33 Active Medications: Current Medications Acetaminophen (Acetaminophen Oral Liquid 650 Mg/20.3 Ml Solution) 650 mg PO Q6H PRN PRN Reason: Fever Last Admin: 05/05/23 14:05 Dose: 650 mg Aspirin (Aspirin 81 Mg Tab.Chew) 81 mg PO DAILY [facility] Last Admin: 05/05/23 08:04 Dose: 81 mg Atorvastatin Calcium (Atorvastatin Calcium 40 Mg Tablet) 40 mg PO BEDTIME [facility] Last Admin: 05/04/23 20:24 Dose: 40 mg Heparin Sodium (Porcine) (Heparin Sodium,Porcine 5,000 Unit/Ml Vial) 5,000 unit SUBCUT Q8H [facility] Last Admin: 05/05/23 12:32 Dose: 5,000 unit Metoprolol Tartrate (Metoprolol Tartrate 12.5 Mg Halftab) 12.5 mg PO BID [facility]; Protocol Last Admin: 05/05/23 08:04 Dose: 12.5 mg Naloxone HCl (Naloxone Hcl 0.4 Mg/Ml Vial) 0.2 mg IVPUSH Q2M PRN PRN Reason: Excessive sedation or RR < 8 Nystatin (Nystatin Powder 15 Gm Bottle) 1 appl TOPICAL TID [facility]; Protocol Last Admin: 05/05/23 15:57 Dose: Not Given Olanzapine (Olanzapine 5 Mg Tablet) 5 mg PO BEDTIME [facility] Sertraline HCl (Sertraline Hcl 25 Mg Tablet) 25 mg PO DAILY [facility] Home Medications Medication Instructions Recorded Confirmed Last Taken Type ketoconazole 2 % topical cream 1 appl topical DAILY 04/08/23 04/08/23 Unknown History olanzapine 10 mg tablet 10 mg PO BEDTIME 04/08/23 04/08/23 Unknown History Physical Exam Vital Signs: Vital Signs: Last Vital Signs Temp 98.9 F 05/05/23 15:23 Pulse 79 05/05/23 15:23 Resp 14 06/20/23 15:23 BP 152/90 H 05/05/23 15:23 Pulse Ox 96 05/05/23 15:23 O2 Del Method Room Air 05/05/23 15:23 O2 Flow Rate 18 04/08/23 09:15 FiO2 30 04/23/23 11:00 BMI result Body Mass Index 23.7 Const: Other: observed sitting in bed. Awake, alert. Appears to be in no acute distress unable to assess orientation as patient does not respond to questions (to me) reportedly has been talking with PT and others General: cooperative, comfortable, no acute distress, alert, awake, confusion, lethargic, patient obtunded and other ( expressive aphasia) Nutritional Appearance: average body habitus, well nourished and thin Orientation/consciousness: confusion, patient obtunded and lethargic Limitations: no limitations HEENT: Head: Yes normocephalic and Yes atraumatic Eyes: Sclerae: sclerae normal Pupils: Equal, round and reactive pupils present EOM: EOMs intact bilaterally Neck: Neck: Yes no lymphadenopathy, Yes trachea midline, Yes supple and Yes no JVD Resp: Other: breathing comfortably on vent, occasional cough Effort & Inspection: normal respiratory effort, no respiratory distress and no use of accessory muscles Auscultation: clear to auscultation bilaterally and crackles ( mild bilateral) Cardio: Jugular venous distension: no JVD Palpation: normal PMI Rate: regular rate, bradycardic and tachycardic Rhythm: regular rhythm Heart sounds: S1 normal heart sound present, S2 normal heart sound present, no click, no gallops, no murmurs and no rubs GI: Other: appears nontender Inspection: No distended Palpation (GI): Soft to palpation and Other GI palpation findings present ( Nontender) Auscultation: normal bowel sounds Skin: Other: right gluteal faciotomy incision well healing General skin exam: no rashes or lesions noted Neuro: Other: He is arousable and will occasionally follow simple commands. He is slow in his responses. He can move all 44 extremities against gravity. Nonfocal exam General: moves all extremities, confusion and patient obtunded Cranial nerves: Yes Equal, round and reactive pupils present Extrem: Other: Right hip wound is clean, dry, and intact. Remaining sutures removed in the incision found to be well healed. General: Yes no clubbing, cyanosis or edema, Yes no pedal edema, No clubbing, No cyanosis, Yes edema ( 1+ bilateral) and Yes other Results Labs 04/29/23 06:25 05/02/23 05:50 Microbiology Microbiology Results: Microbiology 04/17/23 04:39 Blood - Venous Blood Culture - Final No growth after 5 days. 04/17/23 04:39 Blood - Venous Blood Culture - Final No growth after 5 days. 04/08/23 09:07 Blood - Venous Blood Culture - Final No growth after 5 days. 04/08/23 09:08 Blood - Venous Blood Culture - Final No growth after 5 days. 04/08/23 Unknown Urine clean catch - Urine lomax top Urine Culture - Final No growth. Assessment and Plan (1) Anoxic encephalopathy: Status: Acute Since his last evaluation 3 weeks ago he has shown significant improvement and is not arousable and made to follow simple commands and has a nonfocal exam. Persistent relief in the recovery area and he is expected to make significant improvement her going forward. The family needs to have realistic expectations that as to the timee frame of recovery, which may take 3-6 months Or even longer..I am okay with him being transferred to a brain rehabilitation Center. (2) Myocardial infarction: Status: Acute (3) Polysubstance abuse: Status: Acute (4) Opiate overdose: Qualifiers: Encounter type: initial encounter Injury intent: accidental or unintentional Qualified Code(s): T40.601A - Poisoning by unspecified narcotics, accidental (unintentional), initial encounter Status: Acute (5) Acute respiratory failure: Status: Acute (6) Schizophrenia: Qualifiers: Schizophrenia type: unspecified Qualified Code(s): F20.9 - Schizophrenia, unspecified Status: Acute Plan This is a 28-year-old man with underlying history of schizophrenia, alcohol use, marijuana use?admitted on 04/08/2023 after he was noted to be unresponsive by his girlfriend for unclear amount of time. Patient was transported by EMS to emergency room where he was intubated for hypoxia and respiratory distress.? On further evaluation patient with imaging finding of aspiration and left pneumothorax.? Initial left mid axillary chest tube placed in emergency room with persistence of pneumothorax and questionable subdiaphragmatic placement.? Chest tube removed and replaced with left midclavicular in 3rd intercostal space with air evacuation and improvement in pneumothorax.? Patient also noted to have acute kidney injury and rhabdomyolysis and started on IV fluid hydration. He underwent right gluteal fasciotomy with significant improvement in his CPK and renal function.? However, remains persistently encephalopathic.? MRI on 04/10/2023 with bilateral cerebral anoxic related encephalopathy. ? Evaluated by neurology with prognosis consider to be guarded, but not catastrophic. Overall with slow neurologic improvement, With significant improvement on 04/23/2023. extubated 04/23/2023 and downgraded to the medical floor on 04/25. Limited improvement in responsiveness Right foot pain xray negative venous doppler us neg continue pt Anoxic brain injury secondary to aspiration pneumonia related to polysubstance overdose with anoxic encephalopathy hemodynamically stable continue PT/OT OOB to chair Some improvement. Following simple commands. Slow to speak in one word or very short phrases Guardian and [facility] nursing concerned about minimal progress. Would like another MRI. Neurology consulted to evaluate if this would be beneficial and for recommendations on placement (guardian/[facility] looking for brain focused rehab setting) Exhibiting some selective mutism- ?r/t schizophrenia as well as anoxia brain injury. Has Blane's order as well. Psych consult place acute respiratory failure with hypoxia secondary to aspiration pneumonitis, pneumothorax s/p treatment with unasyn requiring intubation, extubated 04/23 now on room air Gluteal compartment syndrome s/p right gluteal fasciotomy 04/08 sutures removed no further surgical intervention required at this time NSTEMI s/p heparin drip echo with preserved LVEF-basal inferior akinesis, regional wall motion abnormalities seen by cardiology - will need outpatient ischemic workup medical management with asa, statin, BB acute pneumothorax s/p left chest tube placement and subsequent removal resolved acute renal failure secondary to rhabdo resolved with IV fluids normocytic anemia H/H stable rhabdomyolysis secondary to unresponsiveness s/p right gluteal fasciotomy schizophrenia on zyprexa at baseline, resumed on lower dose 04/29 seems more depress. Psychiatry consult DVT prophylaxis with Heparin Attending Dr. Treadwell DISPO plan for extensive rehab Has [facility] guardian, awaiting amendment to guardianship with right to admit Requires continued hospitalization for safe discharge to rehabilitation Time Spent With Patient Time: Total time managing care of this patient today ____ minutes. Procedures Date of Service Date of Service: 05/05/23
[2023-05-05] MEDS: Atorvastatin Calcium 40 MG TABLET PO (20:52)
[2023-05-05] MEDS: OLANZapine 5 MG TABLET PO (20:53)
[2023-05-06 03:38] VITALS: BP 128/80; PULSE 81; RESP 18; TEMP 36.9; O2SAT 97
[2023-05-06] MEDS: Heparin Sodium,Porcine 5,000 UNIT/ML VIAL 5000 UNIT SUBCUT ×3 (03:48→20:27)
[2023-05-06 06:00] VITALS: BMI 23.9
[2023-05-06 06:32] LABS: Alanine Aminotransferase 22 U/L (0-40); Albumin Level 3.7 g/dL (3.5-5.0); Alkaline Phosphatase 93 U/L (39-117); Aspartate Amino Transferase 18 U/L (5-37); Bilirubin Direct 0.3 mg/dL (0.0-0.5); Bilirubin Total 0.6 mg/dL (0.0-1.0); Total Protein 6.9 g/dL (6.5-8.0)
[2023-05-06 07:24] VITALS: BP 120/71; PULSE 81; RESP 20; TEMP 36.7; O2SAT 96
[2023-05-06] MEDS: Metoprolol Tartrate 12.5 MG HALFTAB PO ×2 (08:15→20:27)
[2023-05-06] MEDS: Nystatin Powder 15 GM BOTTLE 1 APPL TOPICAL ×3 (08:15→20:28)
[2023-05-06] MEDS: Aspirin 81 MG TAB.CHEW PO (08:15)
[2023-05-06] MEDS: Sertraline HCL 25 MG TABLET PO (08:15)
--- NOTE | 2023-05-06 09:45 | MHC.CLN ---
F/U PO INTAKE VARIABLE DIET RX: REGULAR -APPROPRIATE PT RECEIVING ENSURE TID PROVIDES 1050KCALS, 60G PROTEIN WITH 100% ACCEPTANCE IN ADDITION, GELATEIN ADDED TO PROMOTE WOUND HEALING PROVIDES 320KCALS, 40G PROTEIN CONTINUE TO MONITOR PO INTAKE AND IMPROVED WOUND HEALING
[2023-05-06 11:17] VITALS: BP 127/78; PULSE 73; RESP 20; TEMP 36.3; O2SAT 97
--- NOTE | 2023-05-06 11:59 | HO.PM.IMPN ---
Subjective Subjective Date of Service: 05/06/23 Interval History: seen and examined this morning follow up for anoxic brain injury awake and alert. slow verbal responses. following simple commands, but with slow response. selectively mute. Similar to yesterday Review of Systems Review of Systems: Yes Unobtainable due to mental condition and Unobtainable due to mental status Physical Exam Vital Signs: Vital Signs: Last Vital Signs Temp 97.4 F 05/06/23 11:17 Pulse 73 05/06/23 11:17 Resp 20 05/06/23 11:17 BP 127/78 05/06/23 11:17 Pulse Ox 97 05/06/23 11:17 O2 Del Method Room Air 05/06/23 11:17 O2 Flow Rate 18 04/08/23 09:15 FiO2 30 04/23/23 11:00 BMI result Body Mass Index 23.9 Constitutional - Awake and Alert, No apparent distress Eyes - PERRLA, EOMI Cardiovascular - S1S2, RRR, No edema Respiratory - Normal lung expansion, Normal respiratory effort, No respiratory distress, CTA bilaterally Gastrointestinal - NT / ND; +BS; No rebound or guarding Extremities - no calf tenderness bilaterally, no swelling MSK- tenderness ankle bilaterally with passive ROM, R>L Skin - Warm/Dry. gluteal incision healing well Neurological - Awake and alert, slow short phrase/one word responses, following some simple commands, slight hand grasp 4/5 strength. Psychological - depressed affect Objective Data Active Medications Acetaminophen (Acetaminophen Oral Liquid 650 Mg/20.3 Ml Solution) 650 mg PO Q6H PRN PRN Reason: Fever Last Admin: 05/05/23 14:05 Dose: 650 mg Documented By: CLEMENCIA Aspirin (Aspirin 81 Mg Tab.Chew) 81 mg PO DAILY [facility] Last Admin: 05/06/23 08:15 Dose: 81 mg Documented By: LEEANN Atorvastatin Calcium (Atorvastatin Calcium 40 Mg Tablet) 40 mg PO BEDTIME [facility] Last Admin: 05/05/23 20:52 Dose: 40 mg Documented By: LAKSHMI Heparin Sodium (Porcine) (Heparin Sodium,Porcine 5,000 Unit/Ml Vial) 5,000 unit SUBCUT Q8H [facility] Last Admin: 05/06/23 03:48 Dose: 5,000 unit Documented By: LAKSHMI Metoprolol Tartrate (Metoprolol Tartrate 12.5 Mg Halftab) 12.5 mg PO BID [facility]; Protocol Last Admin: 05/06/23 08:15 Dose: 12.5 mg Documented By: LEEANN Naloxone HCl (Naloxone Hcl 0.4 Mg/Ml Vial) 0.2 mg IVPUSH Q2M PRN PRN Reason: Excessive sedation or RR < 8 Nystatin (Nystatin Powder 15 Gm Bottle) 1 appl TOPICAL TID [facility]; Protocol Last Admin: 05/06/23 08:15 Dose: 1 appl Documented By: LEEANN Olanzapine (Olanzapine 5 Mg Tablet) 5 mg PO BEDTIME [facility] Last Admin: 05/05/23 20:53 Dose: 5 mg Documented By: LAKSHMI Sertraline HCl (Sertraline Hcl 25 Mg Tablet) 25 mg PO DAILY [facility] Last Admin: 05/06/23 08:15 Dose: 25 mg Documented By: LEEANN Labs 04/29/23 06:25 05/02/23 05:50 Labs: Laboratory Results - last 24 hr 05/06/23 05:54 Total Bilirubin 0.6 Direct Bilirubin 0.3 AST 18 ALT 22 Alkaline Phosphatase 93 Total Protein 6.9 Albumin 3.7 Assessment and Plan (1) Anoxic encephalopathy: Status: Acute (2) Myocardial infarction: Status: Acute (3) Polysubstance abuse: Status: Acute (4) Opiate overdose: Status: Acute (5) Acute respiratory failure: Status: Acute (6) Schizophrenia: Status: Acute Plan This is a 28-year-old man with underlying history of schizophrenia, alcohol use, marijuana use?admitted on 04/08/2023 after he was noted to be unresponsive by his girlfriend for unclear amount of time. Patient was transported by EMS to emergency room where he was intubated for hypoxia and respiratory distress.? On further evaluation patient with imaging finding of aspiration and left pneumothorax.? Initial left mid axillary chest tube placed in emergency room with persistence of pneumothorax and questionable subdiaphragmatic placement.? Chest tube removed and replaced with left midclavicular in 3rd intercostal space with air evacuation and improvement in pneumothorax.? Patient also noted to have acute kidney injury and rhabdomyolysis and started on IV fluid hydration. He underwent right gluteal fasciotomy with significant improvement in his CPK and renal function.? However, remains persistently encephalopathic.? MRI on 04/10/2023 with bilateral cerebral anoxic related encephalopathy. ? Evaluated by neurology with prognosis consider to be guarded, but not catastrophic. Overall with slow neurologic improvement, With significant improvement on 04/23/2023. extubated 04/23/2023 and downgraded to the medical floor on 04/25. Limited improvement in responsiveness Right foot pain xray negative venous doppler us neg continue pt Anoxic brain injury secondary to aspiration pneumonia related to polysubstance overdose with anoxic encephalopathy hemodynamically stable continue PT/OT OOB to chair Some improvement. Following simple commands. Slow to speak in one word or very short phrases Exhibiting some selective mutism- ?r/t schizophrenia as well as anoxia brain injury. Has Blane's order as well. Seen by psych- restarted on sertraline 25mg and olanzapine increased to 5mg bedtime Guardian and [facility] nursing concerned about minimal progress. Would like another MRI. Neurology consulted to evaluate if this would be beneficial and for recommendations on placement (guardian/[facility] looking for brain focused rehab setting)- seen by neuro who does not recommend another MRi at this time. His recovery can take 3-6 months and brain rehab facility is recommended acute respiratory failure with hypoxia secondary to aspiration pneumonitis, pneumothorax s/p treatment with unasyn requiring intubation, extubated 04/23 now on room air Gluteal compartment syndrome s/p right gluteal fasciotomy 04/08 sutures removed no further surgical intervention required at this time NSTEMI s/p heparin drip echo with preserved LVEF-basal inferior akinesis, regional wall motion abnormalities seen by cardiology - will need outpatient ischemic workup medical management with asa, statin, BB acute pneumothorax s/p left chest tube placement and subsequent removal resolved acute renal failure secondary to rhabdo resolved with IV fluids normocytic anemia H/H stable rhabdomyolysis secondary to unresponsiveness s/p right gluteal fasciotomy schizophrenia on zyprexa at baseline, resumed on lower dose 04/29 seems more depress. Eval by psych who resumed sertraline and increased olanzepine to 5mg bedtime DVT prophylaxis with Heparin Attending Dr. Treadwell DISPO plan for extensive rehab- brain rehab facility recommended Has [facility] grigsby, now awaiting guardianship court meeting May 26 Requires continued hospitalization for safe discharge to rehabilitation Time Spent With Patient Time: Total time managing care of this patient today ____ minutes. Quality Stroke Does the patient have a stroke diagnosis?: No VTE Prior VTE?: No VTE Risk Level:: Medical - moderate - high VTE Device Contraindication: N/A - Device Ordered VTE Drug Contraindication: N/A - Med Ordered
--- NOTE | 2023-05-06 15:05 | MHC.SPEECHCO ---
Per hospitalist, goal is for patient to have intensive rehab and requests SPIRITUAL ADVISOR continue to see patient for language/cognition. SPIRITUAL ADVISOR saw patient for additional lang/cog screening. Patient presents w/ low volume and monotone pitch. Patient mainly speaking w/ one word responses (mostly yes / no ) or repeating part of the clinician's speech. Patient named some items around the room. Patient did not repeat words when prompted or complete sentences (i.e. the grass is ____). Patient denies any difficulty with language or cognition.
[2023-05-06 15:38] VITALS: BP 158/90; PULSE 84; RESP 18; TEMP 36.6; O2SAT 100
[2023-05-06 19:34] VITALS: BP 143/90; PULSE 86; RESP 18; TEMP 36.9; O2SAT 97
[2023-05-06] MEDS: OLANZapine 5 MG TABLET PO (20:27)
[2023-05-06] MEDS: Atorvastatin Calcium 40 MG TABLET PO (20:27)
[2023-05-06 23:21] VITALS: BP 131/80; PULSE 69; RESP 20; TEMP 36.8; O2SAT 97
[2023-05-07] VITALS (7 sets, daily range): BP systolic 112–142; BP diastolic 69–95; PULSE 59–85; RESP 17–20; TEMP 36.6–37.1; O2SAT 97–99; BMI 24.2
[2023-05-07] MEDS: Heparin Sodium,Porcine 5,000 UNIT/ML VIAL 5000 UNIT SUBCUT ×3 (04:57→21:31)
[2023-05-07 06:26] LABS: MANUAL DIFF FLAG NO
[2023-05-07 06:32] LABS: Basophils Percent Auto 0.3 % (0-2); Eosinophils Absolute Auto 0.2 X10*3/uL (0.0-0.4); Eosinophils Percent Auto 2.3 % (0-4); Hematocrit 38.5 % (42.0-52.0); Hemoglobin 12.9 g/dl (14.0-18.0); Imm Gran Abs Auto 0.02 X10*3/uL (0.00-0.03); Imm Gran Pct Auto 0.3 % (0.0-0.4); Lymphocytes Absolute Auto 1.3 X10*3/uL (1.2-4.9); Lymphocytes Percent Auto 19.3 % (20-40); Mean Corpuscular HGB Conc 33.5 g/dl (31.0-36.0); Mean Corpuscular Hemoglobin 29.9 pg (27.0-33.0); Mean Corpuscular Volume 89.3 fL (80.0-98.0); Mean Platelet Volume 9.4 fL (9.4-12.4); Monocytes Percent Auto 13.7 % (2-11); Neutrophils Absolute Auto 4.4 x10*3/uL (2.0-8.3); Neutrophils Percent Auto 64.1 % (45-73); Platelet Count 240 X10*3/uL (160-400); Red Blood Count 4.31 X10*6/uL (4.60-5.80); Red Cell Distribution Width 12.5 % (11.0-16.0); White Blood Count 6.9 X10*3/uL (4.8-10.8)
[2023-05-07 06:45] LABS: Anion Gap 14 (12-20); Blood Urea Nitrogen 14 mg/dL (9-16); Calcium 10.1 mg/dL (8.4-10.2); Carbon Dioxide 24 mmol/L (22-29); Chloride 102 mmol/L (96-108); Creatinine Clr Calc Pharmacy 169.9; Estimated Glomerular Filt Rate > 60; Glucose Random 95 mg/dL (60-115); Potassium 3.9 mmol/L (3.3-5.1); Sodium 136 mmol/L (135-145)
[2023-05-07 06:47] LABS: Uric Acid 5.3 mg/dL (3.4-7.0)
[2023-05-07] MEDS: Metoprolol Tartrate 12.5 MG HALFTAB PO ×2 (09:21→21:31)
[2023-05-07] MEDS: Nystatin Powder 15 GM BOTTLE 1 APPL TOPICAL ×3 (09:22→21:32)
[2023-05-07] MEDS: Aspirin 81 MG TAB.CHEW PO (09:22)
[2023-05-07] MEDS: Sertraline HCL 25 MG TABLET PO (09:22)
--- NOTE | 2023-05-07 11:22 | P.PNIM_ITS ---
Subjective Subjective Date of Service: 05/07/23 Interval History: seen and examined this morning follow up anoxic brain injury no overnight events sleepy not providing any history. unable to obtain ROS Physical Exam Vital Signs: Vital Signs: Last Vital Signs Temp 98.3 F 05/07/23 07:08 Pulse 59 05/07/23 07:08 Resp 18 05/07/23 07:08 BP 112/71 05/07/23 07:08 Pulse Ox 98 05/07/23 07:08 O2 Del Method Room Air 05/07/23 07:08 O2 Flow Rate 18 04/08/23 09:15 FiO2 30 04/23/23 11:00 BMI result Body Mass Index 24.2 Const: Other: sleepy Nutritional Appearance: average body habitus Resp: Effort & Inspection: normal respiratory effort, able to speak in complete sentences, no respiratory distress and no use of accessory muscles Cardio: Rate: regular rate Heart sounds: S1 normal heart sound present and S2 normal heart sound present GI: Other: no guarding Inspection: No distended Palpation (GI): Soft to palpation Neuro: Other: unable to assess orientation, not following commands Extrem: Other: trace edema Objective Data Active Medications Acetaminophen (Acetaminophen Oral Liquid 650 Mg/20.3 Ml Solution) 650 mg PO Q6H PRN PRN Reason: Fever Last Admin: 05/05/23 14:05 Dose: 650 mg Documented By: CLEMENCIA Aspirin (Aspirin 81 Mg Tab.Chew) 81 mg PO DAILY [facility] Last Admin: 05/07/23 09:22 Dose: 81 mg Documented By: DAVID Atorvastatin Calcium (Atorvastatin Calcium 40 Mg Tablet) 40 mg PO BEDTIME [facility] Last Admin: 05/06/23 20:27 Dose: 40 mg Documented By: EMILY Heparin Sodium (Porcine) (Heparin Sodium,Porcine 5,000 Unit/Ml Vial) 5,000 unit SUBCUT Q8H [facility] Last Admin: 05/07/23 04:57 Dose: 5,000 unit Documented By: EMILY Metoprolol Tartrate (Metoprolol Tartrate 12.5 Mg Halftab) 12.5 mg PO BID [facility]; Protocol Last Admin: 05/07/23 09:21 Dose: 12.5 mg Documented By: DAVID Naloxone HCl (Naloxone Hcl 0.4 Mg/Ml Vial) 0.2 mg IVPUSH Q2M PRN PRN Reason: Excessive sedation or RR < 8 Nystatin (Nystatin Powder 15 Gm Bottle) 1 appl TOPICAL TID [facility]; Protocol Last Admin: 05/07/23 09:22 Dose: 1 appl Documented By: DAVID Olanzapine (Olanzapine 5 Mg Tablet) 5 mg PO BEDTIME [facility] Last Admin: 05/06/23 20:27 Dose: 5 mg Documented By: EMILY Sertraline HCl (Sertraline Hcl 25 Mg Tablet) 25 mg PO DAILY [facility] Last Admin: 05/07/23 09:22 Dose: 25 mg Documented By: DAVID Labs 05/07/23 06:02 05/07/23 06:02 Labs: Laboratory Results - last 24 hr 05/07/23 05/07/23 05/07/23 06:02 06:02 06:02 MCV 89.3 MCH 29.9 MCHC 33.5 RDW 12.5 Plt Count 240 D MPV 9.4 Immature Gran % (Auto) 0.3 Neut % (Auto) 64.1 Lymph % (Auto) 19.3 L [place] % (Auto) 13.7 H Eos % (Auto) 2.3 Baso % (Auto) 0.3 Lymph # (Auto) 1.3 [place] # (Auto) 1.0 Eos # (Auto) 0.2 Baso # (Auto) 0.0 Abs Immat Gran (auto) 0.02 Absolute Neuts (auto) 4.4 Absolute Nucleated RBC 0.000 Nucleated RBC % (auto) 0.0 Anion Gap 14 Estim Creat Clear Calc 169.9 Estimated GFR > 60 Random Glucose 95 Uric Acid 5.3 Calcium 10.1 Assessment and Plan (1) Anoxic encephalopathy: Status: Acute Plan This is a 28-year-old man with underlying history of schizophrenia, alcohol use, marijuana use?admitted on 04/08/2023 after he was noted to be unresponsive by his girlfriend for unclear amount of time. Patient was transported by EMS to emergency room where he was intubated for hypoxia and respiratory distress.? On further evaluation patient with imaging finding of aspiration and left pneumothorax.? Initial left mid axillary chest tube placed in emergency room with persistence of pneumothorax and questionable subdiaphragmatic placement.? Chest tube removed and replaced with left midclavicular in 3rd intercostal space with air evacuation and improvement in pneumothorax.? Patient also noted to have acute kidney injury and rhabdomyolysis and started on IV fluid hydration. He underwent right gluteal fasciotomy with significant improvement in his CPK and renal function.? However, remains persistently encephalopathic.? MRI on 04/10/2023 with bilateral cerebral anoxic related encephalopathy. ? Evaluated by neurology with prognosis consider to be guarded, but not catastrophic. Overall with slow neurologic improvement, With significant improvement on 04/23/2023. extubated 04/23/2023 and downgraded to the medical floor on 04/25. Limited improvement in responsiveness Right foot pain xray negative venous doppler us neg uric acid normal continue PT Anoxic brain injury secondary to aspiration pneumonia related to polysubstance overdose with anoxic encephalopathy hemodynamically stable continue PT/OT OOB to chair Some improvement. Following simple commands. Slow to speak in one word or very short phrases Exhibiting some selective mutism- ?r/t schizophrenia as well as anoxia brain injury. Has Blane's order as well. Seen by psych- restarted on sertraline 25mg and olanzapine increased to 5mg bedtime Guardian and [facility] nursing concerned about minimal progress. Would like another MRI. Neurology consulted to evaluate if this would be beneficial and for recommendations on placement (guardian/[facility] looking for brain focused rehab setting)- seen by neuro who does not recommend another MRI at this time. His recovery can take 3-6 months or more and brain rehab facility is recommended acute respiratory failure with hypoxia secondary to aspiration pneumonitis, pneumothorax s/p treatment with unasyn requiring intubation, extubated 04/23 now on room air Gluteal compartment syndrome s/p right gluteal fasciotomy 04/08 sutures removed no further surgical intervention required at this time NSTEMI s/p heparin drip echo with preserved LVEF-basal inferior akinesis, regional wall motion abnormalities seen by cardiology - will need outpatient ischemic workup medical management with asa, statin, BB acute pneumothorax s/p left chest tube placement and subsequent removal resolved acute renal failure secondary to rhabdo resolved with IV fluids normocytic anemia H/H stable rhabdomyolysis secondary to unresponsiveness s/p right gluteal fasciotomy schizophrenia on zyprexa at baseline, resumed on lower dose 04/29 seems more depress. Eval by psych who resumed sertraline and increased olanzepine to 5mg bedtime DVT prophylaxis with Heparin Attending Dr. Treadwell DISPO plan for extensive rehab- brain rehab facility recommended Has [facility] guardian, awaiting amendment to guardianship for right to admit, court date May 26 Requires continued hospitalization for safe disposition Time Spent With Patient Time: Total time managing care of this patient today ____ minutes. Quality Stroke Does the patient have a stroke diagnosis?: No VTE Prior VTE?: No VTE Risk Level:: Medical - moderate - high VTE Device Contraindication: N/A - Device Ordered VTE Drug Contraindication: N/A - Med Ordered
--- NOTE | 2023-05-07 13:01 | MHC.SLORD ---
Speech Language Pathology Order Status: Attempted to assess language this AM. Patient had just been seen by PT, was seated in chair, awake and alert. However patient was minimally responsive to receptive language probes, responding only I don't think so in 2/10 questions/probes. Patient spontaneously scratch michel X1, but otherwise made no requested movement (e.g. point to... ), nor initiated head shake in response to y/n questions. Unable to assess at this time due to patient's responsiveness. MENTAL HEALTH PROGRAM MANAGER will continue to follow.
[2023-05-07] MEDS: OLANZapine 5 MG TABLET PO (21:31)
[2023-05-07] MEDS: Atorvastatin Calcium 40 MG TABLET PO (21:31)
[2023-05-08] VITALS (7 sets, daily range): BP systolic 119–153; BP diastolic 70–90; PULSE 54–66; RESP 18–20; TEMP 36.6–37.1; O2SAT 97–98; BMI 24.4
[2023-05-08] MEDS: Heparin Sodium,Porcine 5,000 UNIT/ML VIAL 5000 UNIT SUBCUT ×2 (04:12→19:56)
[2023-05-08] MEDS: Metoprolol Tartrate 12.5 MG HALFTAB PO ×2 (08:57→19:56)
[2023-05-08] MEDS: Sertraline HCL 25 MG TABLET PO (08:57)
[2023-05-08] MEDS: Aspirin 81 MG TAB.CHEW PO (08:57)
[2023-05-08] MEDS: Nystatin Powder 15 GM BOTTLE 1 APPL TOPICAL ×3 (09:02→19:56)
--- NOTE | 2023-05-08 10:31 | MHC.CM.PN ---
EMR reviewed and per MD rounds, pt not cleared for D/C, we are awaiting court date on 05/26 to amend guardianship. CM will continue to follow.
--- NOTE | 2023-05-08 10:52 | MHC.CLN ---
F/U PO INTAKE 75-100% DIET RX: REGULAR -APPROPRIATE PT RECEIVING ENSURE TID PROVIDES 1050KCALS, 60G PROTEIN WITH 100% ACCEPTANCE PT NOT ACCEPTING GELATEIN AT THIS TIME-WILL D/C CONTINUE TO MONITOR PO INTAKE AND IMPROVED WOUND HEALING
--- NOTE | 2023-05-08 11:16 | MHC.SPEECHCO ---
FORESTRY TREE PRUNER attempted to administer standardized cognitive-linguistic assessment this morning. Pt not attending to picture stimuli. Pt not following any commands, answering questions, or engaging w/ FORESTRY TREE PRUNER. Pt looking away and fidgeting with blanket. During prior visits, pt responding to some WH- and yes/no questions. Per discussion w/ RN, pt has not been very communicative, said couple words faintly.
[2023-05-08] MEDS: Acetaminophen Oral Liquid 650 MG/20.3 ML SOLUTION PO (13:09)
--- NOTE | 2023-05-08 13:47 | P.PNIM_ITS ---
Subjective Subjective Date of Service: 05/08/23 Interval History: chest seen and examined at bedside. No overnight events. He answers no and yes by making sounds. unable to assess full ros Review of Systems Review of Systems: Yes Unobtainable due to mental condition and Unobtainable due to mental status Physical Exam Vital Signs: Vital Signs: Last Vital Signs Temp 98 F 05/08/23 11:04 Pulse 62 05/08/23 11:04 Resp 20 05/08/23 11:04 BP 119/76 05/08/23 11:04 Pulse Ox 97 05/08/23 11:04 O2 Del Method Room Air 05/08/23 11:04 O2 Flow Rate 18 04/08/23 09:15 FiO2 30 04/23/23 11:00 BMI result Body Mass Index 24.4 Const: Other: awake, alert, orientation cannot be assessed Cardio: Other: normal rate and rhythm GI: Other: abdomen is soft, Extrem: Other: no pedal edema Objective Data Active Medications Acetaminophen (Acetaminophen Oral Liquid 650 Mg/20.3 Ml Solution) 650 mg PO Q6H PRN PRN Reason: Fever Last Admin: 05/08/23 13:09 Dose: 650 mg Documented By: CLEMENCIA Aspirin (Aspirin 81 Mg Tab.Chew) 81 mg PO DAILY [facility] Last Admin: 05/08/23 08:57 Dose: 81 mg Documented By: AMALIA Atorvastatin Calcium (Atorvastatin Calcium 40 Mg Tablet) 40 mg PO BEDTIME [facility] Last Admin: 05/07/23 21:31 Dose: 40 mg Documented By: KIERA Heparin Sodium (Porcine) (Heparin Sodium,Porcine 5,000 Unit/Ml Vial) 5,000 unit SUBCUT Q8H [facility] Last Admin: 05/08/23 04:12 Dose: 5,000 unit Documented By: KIERA Metoprolol Tartrate (Metoprolol Tartrate 12.5 Mg Halftab) 12.5 mg PO BID [facility]; Protocol Last Admin: 05/08/23 08:57 Dose: 12.5 mg Documented By: AMALIA Naloxone HCl (Naloxone Hcl 0.4 Mg/Ml Vial) 0.2 mg IVPUSH Q2M PRN PRN Reason: Excessive sedation or RR < 8 Nystatin (Nystatin Powder 15 Gm Bottle) 1 appl TOPICAL TID [facility]; Protocol Last Admin: 05/08/23 09:02 Dose: 1 appl Documented By: AMALIA Olanzapine (Olanzapine 5 Mg Tablet) 5 mg PO BEDTIME [facility] Last Admin: 05/07/23 21:31 Dose: 5 mg Documented By: KIERA Sertraline HCl (Sertraline Hcl 25 Mg Tablet) 25 mg PO DAILY [facility] Last Admin: 05/08/23 08:57 Dose: 25 mg Documented By: AMALIA Labs 05/07/23 06:02 05/07/23 06:02 Assessment and Plan (1) Anoxic encephalopathy: Status: Acute (2) Polysubstance abuse: Status: Acute (3) Acute respiratory failure: Status: Acute (4) Myocardial infarction: Status: Acute Plan This is a 28-year-old man with underlying history of schizophrenia, alcohol use, marijuana use?admitted on 04/08/2023 after he was noted to be unresponsive by his girlfriend for unclear amount of time. Patient was transported by EMS to emergency room where he was intubated for hypoxia and respiratory distress.? On further evaluation patient with imaging finding of aspiration and left pneumothorax.? Initial left mid axillary chest tube placed in emergency room with persistence of pneumothorax and questionable subdiaphragmatic placement.? Chest tube removed and replaced with left midclavicular in 3rd intercostal space with air evacuation and improvement in pneumothorax.? Patient also noted to have acute kidney injury and rhabdomyolysis and started on IV fluid hydration. He underwent right gluteal fasciotomy with significant improvement in his CPK and renal function.? However, remains persistently encephalopathic.? MRI on 04/10/2023 with bilateral cerebral anoxic related encephalopathy. ? Evaluated by neurology with prognosis consider to be guarded, but not catastrophic. Overall with slow neurologic improvement, With significant improvement on 04/23/2023. extubated 04/23/2023 and downgraded to the medical floor on 04/25. Limited improvement in responsiveness #Anoxic brain injury secondary to aspiration pneumonia related to polysubstance overdose with anoxic encephalopathy - hemodynamically stable - continue PT/OT - OOB to chair - Some improvement. Following simple commands. Slow to speak in one word or very short phrases - Exhibiting some selective mutism- ?r/t schizophrenia as well as anoxia brain injury. Has Blane's order as well. -Seen by psych- restarted on sertraline 25mg and olanzapine increased to 5mg bedtime - Guardian and [facility] nursing concerned about minimal progress. Would like another MRI. Neurology consulted to evaluate if this would be beneficial and for recommendations on placement (guardian/[facility] looking for brain focused rehab setting) - seen by neuro who does not recommend another MRI at this time. His recovery can take 3-6 months or more and brain rehab facility is recommended # had Right foot pain xray negative venous doppler us neg uric acid normal continue PT acute respiratory failure with hypoxia - resolved - secondary to aspiration pneumonitis, pneumothorax - s/p treatment with unasyn - requiring intubation, extubated 04/23 - now on room air # Gluteal compartment syndrome - s/p right gluteal fasciotomy 04/08 - sutures removed - no further surgical intervention required at this time # NSTEMI - s/p heparin drip - echo with preserved LVEF-basal inferior akinesis, regional wall motion abnormalities - seen by cardiology - will need outpatient ischemic workup - medical management with asa, statin, BB # acute pneumothorax - resolved - s/p left chest tube placement and subsequent removal # acute renal failure resolved with IV fluids # normocytic anemia H/H stable # rhabdomyolysis - resolved # schizophrenia on zyprexa at baseline, resumed on lower dose 04/29 seems more depress. Eval by psych who resumed sertraline and increased olanzepine to 5mg bedtime DVT prophylaxis with Heparin DISPO plan for extensive rehab- brain rehab facility recommended Has [facility] guardian, awaiting amendment to guardianship for right to admit, court date May 26 Requires continued hospitalization for safe disposition Time Spent With Patient Time: Total time managing care of this patient today ____ minutes. Quality Stroke Does the patient have a stroke diagnosis?: No VTE Prior VTE?: No VTE Risk Level:: Medical - moderate - high VTE Device Contraindication: N/A - Device Ordered VTE Drug Contraindication: N/A - Med Ordered
--- NOTE | 2023-05-08 16:24 | PC.NURSE ---
pt's 2 daughters requested to speak to re: antibiotic treatment for UTI for his father, DR Batista spoke with the family and Plan of care was explained to the family, antibiotic IV started this afternoon. Family is requesting external catheter for urination for his father. upon assessment director noticed redness to the lower part of the penis. Decision was made by RN to apply protective cream on the affected area and avoid external cath at this time. patient was educated to call for assistance when he will have a urge to urinate
[2023-05-08] MEDS: OLANZapine 5 MG TABLET PO (19:56)
[2023-05-08] MEDS: Atorvastatin Calcium 40 MG TABLET PO (19:56)
[2023-05-09 03:21] VITALS: BP 148/94; PULSE 69; RESP 18; TEMP 36.7; O2SAT 94
[2023-05-09] MEDS: Heparin Sodium,Porcine 5,000 UNIT/ML VIAL 5000 UNIT SUBCUT ×3 (05:15→19:52)
[2023-05-09 05:24] VITALS: BMI 24.4
[2023-05-09 07:28] VITALS: BP 132/86; PULSE 85; RESP 20; TEMP 37.1; O2SAT 96
[2023-05-09] MEDS: Metoprolol Tartrate 12.5 MG HALFTAB PO ×2 (09:12→19:52)
[2023-05-09] MEDS: Sertraline HCL 25 MG TABLET PO (09:12)
[2023-05-09] MEDS: Aspirin 81 MG TAB.CHEW PO (09:12)
[2023-05-09] MEDS: Nystatin Powder 15 GM BOTTLE 1 APPL TOPICAL ×2 (09:12→19:52)
[2023-05-09 11:37] VITALS: BP 140/91; PULSE 72; RESP 19; TEMP 36.9; O2SAT 96
--- NOTE | 2023-05-09 12:23 | HO.PM.IMPN ---
Subjective Subjective Date of Service: 05/09/23 Interval History: Seen lying in bed. Denies having any acute complaints by shaking his head no. No overnight events Physical Exam Vital Signs: Vital Signs: Last Vital Signs Temp 98.4 F 05/09/23 11:37 Pulse 72 05/09/23 11:37 Resp 19 05/09/23 11:37 BP 140/91 H 05/09/23 11:37 Pulse Ox 96 05/09/23 11:37 O2 Del Method Room Air 05/09/23 11:37 O2 Flow Rate 18 04/08/23 09:15 FiO2 30 04/23/23 11:00 BMI result Body Mass Index 24.4 Const: Other: Alert, awake, appears comfortable Resp: Other: Normal respiratory rate and effort Cardio: Other: Regular rate and rhythm GI: Other: Abdomen is soft nontender Extrem: Other: No lower extremity edema Objective Data Active Medications Acetaminophen (Acetaminophen Oral Liquid 650 Mg/20.3 Ml Solution) 650 mg PO Q6H PRN PRN Reason: Fever Last Admin: 05/08/23 13:09 Dose: 650 mg Documented By: CLEMENCIA Aspirin (Aspirin 81 Mg Tab.Chew) 81 mg PO DAILY [facility] Last Admin: 05/09/23 09:12 Dose: 81 mg Documented By: VINCENT Atorvastatin Calcium (Atorvastatin Calcium 40 Mg Tablet) 40 mg PO BEDTIME [facility] Last Admin: 05/08/23 19:56 Dose: 40 mg Documented By: NICK Heparin Sodium (Porcine) (Heparin Sodium,Porcine 5,000 Unit/Ml Vial) 5,000 unit SUBCUT Q8H [facility] Last Admin: 05/09/23 05:15 Dose: 5,000 unit Documented By: APOLINAR Metoprolol Tartrate (Metoprolol Tartrate 12.5 Mg Halftab) 12.5 mg PO BID [facility]; Protocol Last Admin: 05/09/23 09:12 Dose: 12.5 mg Documented By: VINCENT Naloxone HCl (Naloxone Hcl 0.4 Mg/Ml Vial) 0.2 mg IVPUSH Q2M PRN PRN Reason: Excessive sedation or RR < 8 Nystatin (Nystatin Powder 15 Gm Bottle) 1 appl TOPICAL TID [facility]; Protocol Last Admin: 05/09/23 09:12 Dose: 1 appl Documented By: VINCENT Olanzapine (Olanzapine 5 Mg Tablet) 5 mg PO BEDTIME [facility] Last Admin: 05/08/23 19:56 Dose: 5 mg Documented By: NICK Sertraline HCl (Sertraline Hcl 25 Mg Tablet) 25 mg PO DAILY [facility] Last Admin: 05/09/23 09:12 Dose: 25 mg Documented By: VINCENT Labs 05/07/23 06:02 05/07/23 06:02 Assessment and Plan (1) Anoxic encephalopathy: Status: Acute (2) Myocardial infarction: Status: Acute (3) Polysubstance abuse: Status: Acute (4) Opiate overdose: Status: Acute Plan This is a 28-year-old man with underlying history of schizophrenia, alcohol use, marijuana use?admitted on 04/08/2023 after he was noted to be unresponsive by his girlfriend for unclear amount of time. Patient was transported by EMS to emergency room where he was intubated for hypoxia and respiratory distress.? On further evaluation patient with imaging finding of aspiration and left pneumothorax.? Initial left mid axillary chest tube placed in emergency room with persistence of pneumothorax and questionable subdiaphragmatic placement.? Chest tube removed and replaced with left midclavicular in 3rd intercostal space with air evacuation and improvement in pneumothorax.? Patient also noted to have acute kidney injury and rhabdomyolysis and started on IV fluid hydration. He underwent right gluteal fasciotomy with significant improvement in his CPK and renal function.? However, remains persistently encephalopathic.? MRI on 04/10/2023 with bilateral cerebral anoxic related encephalopathy. ? Evaluated by neurology with prognosis consider to be guarded, but not catastrophic. Overall with slow neurologic improvement, With significant improvement on 04/23/2023. extubated 04/23/2023 and downgraded to the medical floor on 04/25. Limited improvement in responsiveness #Anoxic brain injury secondary to aspiration pneumonia related to polysubstance overdose with anoxic encephalopathy - hemodynamically stable - continue PT/OT - OOB to chair - Some improvement. Following simple commands. Slow to speak in one word or very short phrases - Exhibiting some selective mutism- ?r/t schizophrenia as well as anoxia brain injury. Has Blane's order as well. -Seen by psych- restarted on sertraline 25mg and olanzapine increased to 5mg bedtime - Guardian and [facility] nursing concerned about minimal progress. Would like another MRI. Neurology consulted to evaluate if this would be beneficial and for recommendations on placement (guardian/[facility] looking for brain focused rehab setting) - seen by neuro who does not recommend another MRI at this time. His recovery can take 3-6 months or more and brain rehab facility is recommended # had Right foot pain xray negative venous doppler us neg uric acid normal continue PT acute respiratory failure with hypoxia - resolved - secondary to aspiration pneumonitis, pneumothorax - s/p treatment with unasyn - requiring intubation, extubated 04/23 - now on room air # Gluteal compartment syndrome - s/p right gluteal fasciotomy 04/08 - sutures removed - no further surgical intervention required at this time # NSTEMI - s/p heparin drip - echo with preserved LVEF-basal inferior akinesis, regional wall motion abnormalities - seen by cardiology - will need outpatient ischemic workup - medical management with asa, statin, BB # acute pneumothorax - resolved - s/p left chest tube placement and subsequent removal # acute renal failure resolved with IV fluids # normocytic anemia H/H stable # rhabdomyolysis - resolved # schizophrenia on zyprexa at baseline, resumed on lower dose 04/29 seems more depress. Eval by psych who resumed sertraline and increased olanzepine to 5mg bedtime DVT prophylaxis with Heparin DISPO plan for extensive rehab- brain rehab facility recommended Has [facility] guardian, awaiting amendment to guardianship for right to admit, court date May 26 Requires continued hospitalization for safe disposition Time Spent With Patient Time: Total time managing care of this patient today ____ minutes. Quality Stroke Does the patient have a stroke diagnosis?: No VTE Prior VTE?: No VTE Risk Level:: Medical - moderate - high VTE Device Contraindication: N/A - Device Ordered VTE Drug Contraindication: N/A - Med Ordered
[2023-05-09 15:16] VITALS: BP 131/79; PULSE 77; RESP 19; TEMP 36.5; O2SAT 97
[2023-05-09 19:32] VITALS: BP 137/87; PULSE 86; RESP 18; TEMP 36.7; O2SAT 97
[2023-05-09] MEDS: Atorvastatin Calcium 40 MG TABLET PO (19:52)
[2023-05-09] MEDS: OLANZapine 5 MG TABLET PO (19:52)
[2023-05-10] VITALS (7 sets, daily range): BP systolic 142–155; BP diastolic 80–97; PULSE 65–80; RESP 17–20; TEMP 36.3–36.8; O2SAT 96–97; BMI 24.3
[2023-05-10] MEDS: Heparin Sodium,Porcine 5,000 UNIT/ML VIAL 5000 UNIT SUBCUT ×3 (04:04→21:45)
[2023-05-10] MEDS: Metoprolol Tartrate 12.5 MG HALFTAB PO ×2 (07:35→21:45)
[2023-05-10] MEDS: Aspirin 81 MG TAB.CHEW PO (07:35)
[2023-05-10] MEDS: Nystatin Powder 15 GM BOTTLE 1 APPL TOPICAL ×3 (07:36→21:46)
[2023-05-10] MEDS: Sertraline HCL 25 MG TABLET PO (07:36)
--- NOTE | 2023-05-10 10:23 | P.PNIM_ITS ---
Subjective Subjective Date of Service: 05/10/23 Interval History: Seen and evaluated this morning Comfortable in his bed Tolerating diet answering by shaking head or saying yes No reported overnight events Review of Systems Review of Systems: Yes Unobtainable due to mental condition Physical Exam Vital Signs: Vital Signs: Last Vital Signs Temp 97.3 F 05/10/23 07:17 Pulse 73 05/10/23 07:17 Resp 20 05/10/23 07:17 BP 146/80 H 05/10/23 07:17 Pulse Ox 97 05/10/23 07:17 O2 Del Method Room Air 05/10/23 07:17 O2 Flow Rate 18 04/08/23 09:15 FiO2 30 04/23/23 11:00 BMI result Body Mass Index 24.3 Const: Other: Constitutional : Awake, not in distress Neck : Normal inspection, Supple Cardiovascular : RRR, no JVP, no lower extremity edema Respiratory : good bilateral air entry, no crackles, wheezes or rhonchi Gastrointestinal: soft, lax, Normal bowel sounds, Non tender Skin : Warm, Dry Neurological : unable to assess Alert & oriented , muscle wasting LEs bilaterally, weak UEs, non-verbal Objective Data Active Medications Acetaminophen (Acetaminophen Oral Liquid 650 Mg/20.3 Ml Solution) 650 mg PO Q6H PRN PRN Reason: Fever Last Admin: 05/08/23 13:09 Dose: 650 mg Documented By: CLEMENCIA Aspirin (Aspirin 81 Mg Tab.Chew) 81 mg PO DAILY [facility] Last Admin: 05/10/23 07:35 Dose: 81 mg Documented By: VINCENT Atorvastatin Calcium (Atorvastatin Calcium 40 Mg Tablet) 40 mg PO BEDTIME [facility] Last Admin: 05/09/23 19:52 Dose: 40 mg Documented By: FRANK Heparin Sodium (Porcine) (Heparin Sodium,Porcine 5,000 Unit/Ml Vial) 5,000 unit SUBCUT Q8H [facility] Last Admin: 05/10/23 04:04 Dose: 5,000 unit Documented By: FRANK Metoprolol Tartrate (Metoprolol Tartrate 12.5 Mg Halftab) 12.5 mg PO BID [facility]; Protocol Last Admin: 05/10/23 07:35 Dose: 12.5 mg Documented By: VINCENT Naloxone HCl (Naloxone Hcl 0.4 Mg/Ml Vial) 0.2 mg IVPUSH Q2M PRN PRN Reason: Excessive sedation or RR < 8 Nystatin (Nystatin Powder 15 Gm Bottle) 1 appl TOPICAL TID [facility]; Protocol Last Admin: 05/10/23 07:36 Dose: 1 appl Documented By: VINCENT Olanzapine (Olanzapine 5 Mg Tablet) 5 mg PO BEDTIME [facility] Last Admin: 05/09/23 19:52 Dose: 5 mg Documented By: FRANK Sertraline HCl (Sertraline Hcl 25 Mg Tablet) 25 mg PO DAILY [facility] Last Admin: 05/10/23 07:36 Dose: 25 mg Documented By: IVNCENT Labs 05/07/23 06:02 05/07/23 06:02 Assessment and Plan (1) Myocardial infarction: Status: Acute (2) Anoxic encephalopathy: Status: Acute (3) Polysubstance abuse: Status: Acute (4) Opiate overdose: Status: Acute (5) Acute respiratory failure: Status: Acute (6) Schizophrenia: Status: Acute (7) Pneumonia: Status: Acute (8) Physical deconditioning: Status: Acute Plan This is a 28-year-old man with underlying history of schizophrenia, alcohol use, marijuana use?admitted on 04/08/2023 after he was noted to be unresponsive by his girlfriend for unclear amount of time. Patient was transported by EMS to emergency room where he was intubated for hypoxia and respiratory distress.? On further evaluation patient with imaging finding of aspiration and left pneumothorax.? Initial left mid axillary chest tube placed in emergency room with persistence of pneumothorax and questionable subdiaphragmatic placement.? Chest tube removed and replaced with left midclavicular in 3rd intercostal space with air evacuation and improvement in pneumothorax.? Patient also noted to have acute kidney injury and rhabdomyolysis and started on IV fluid hydration. He underwent right gluteal fasciotomy with significant improvement in his CPK and r enal function.? However, remains persistently encephalopathic.? MRI on 04/10/2023 with bilateral cerebral anoxic related encephalopathy. ? Evaluated by neurology with prognosis consider to be guarded, but not catastrophic. Overall with slow neurologic improvement, With significant improvement on 04/23/2023. extubated 04/23/2023 and downgraded to the medical floor on 04/25. Limited improvement in responsiveness #Anoxic brain injury secondary to aspiration pneumonia related to polysubstance overdose with anoxic encephalopathy Some improvement. Following simple commands. Slow to speak in one word or very short phrases continue PT/OT OOB to chair Exhibiting some selective mutism- ?r/t schizophrenia as well as anoxia brain injury. Has Blane's order as well. Seen by psych- restarted on sertraline 25mg and olanzapine increased to 5mg bedtime Guardian and [facility]D nursing concerned about minimal progress. Would like another MRI. Neurology consulted to evaluate if this would be beneficial and for mauro mmendations on placement (guardian/[facility]D looking for brain focused rehab setting) seen by neuro who does not recommend another MRI at this time. His recovery can take 3-6 months or more and brain rehab facility is recommended # Right foot pain xray negative venous doppler us neg uric acid normal continue PT # acute respiratory failure with hypoxia secondary to aspiration pneumonitis, pneumothorax resolved s/p treatment with unasyn requiring intubation, extubated 04/23 on room air # Gluteal compartment syndrome s/p right gluteal fasciotomy 04/08 sutures removed no further surgical intervention required at this time # NSTEMI s/p heparin drip echo with preserved LVEF-basal inferior akinesis, regional wall motion abnormalities seen by cardiology - will need outpatient ischemic workup medical management with asa, statin, BB # acute pneumothorax resolved s/p left chest tube placement and subsequent removal # acute renal failure resolved with IV fluids # normocytic anemia H/H stable # rhabdomyolysis resolved # schizophrenia on zyprexa at baseline, resumed on lower dose 04/29 seems more depress. Eval by psych who resumed sertraline and increased olanzepine to 5mg bedtime DVT prophylaxis with Heparin DISPO plan for extensive rehab- brain rehab facility recommended Has [facility] guardian, awaiting amendment to guardianship for right to admit, court date May 26 Requires continued hospitalization for safe disposition Time Spent With Patient Time: Total time managing care of this patient today ____ minutes. Quality Stroke Does the patient have a stroke diagnosis?: No VTE Prior VTE?: No VTE Risk Level:: Medical - moderate - high VTE Device Contraindication: N/A - Device Ordered VTE Drug Contraindication: N/A - Med Ordered
[2023-05-10] MEDS: Atorvastatin Calcium 40 MG TABLET PO (21:45)
[2023-05-10] MEDS: OLANZapine 5 MG TABLET PO (21:45)
[2023-05-11 03:59] VITALS: BP 153/85; PULSE 76; RESP 18; TEMP 36.4; O2SAT 96
[2023-05-11] MEDS: Heparin Sodium,Porcine 5,000 UNIT/ML VIAL 5000 UNIT SUBCUT ×2 (05:32→20:21)
[2023-05-11 06:00] VITALS: BMI 23.0
[2023-05-11 07:59] VITALS: BP 129/87; PULSE 62; RESP 20; TEMP 36.6; O2SAT 97
[2023-05-11] MEDS: Aspirin 81 MG TAB.CHEW PO (08:50)
[2023-05-11] MEDS: Sertraline HCL 25 MG TABLET PO (08:50)
[2023-05-11] MEDS: Metoprolol Tartrate 12.5 MG HALFTAB PO ×2 (08:50→20:20)
[2023-05-11] MEDS: Nystatin Powder 15 GM BOTTLE 1 APPL TOPICAL ×2 (09:04→21:19)
--- NOTE | 2023-05-11 10:24 | HO.PM.IMPN ---
Subjective Subjective Date of Service: 05/11/23 Interval History: Seen and evaluated this morning Comfortable in his bed Tolerating diet but more concerns over his swallowing pattern answering by shaking head , not making eye contact No reported overnight events Review of Systems Review of Systems: Yes Unobtainable due to mental condition Physical Exam Vital Signs: Vital Signs: Last Vital Signs Temp 97.8 F 05/11/23 07:59 Pulse 62 05/11/23 07:59 Resp 20 05/11/23 07:59 BP 129/87 05/11/23 07:59 Pulse Ox 97 05/11/23 07:59 O2 Del Method Room Air 05/11/23 07:59 O2 Flow Rate 18 04/08/23 09:15 FiO2 30 04/23/23 11:00 BMI result Body Mass Index 23.0 Const: Other: Constitutional : Awake, not in distress Neck : Normal inspection, Supple Cardiovascular : RRR, no JVP, no lower extremity edema Respiratory : good bilateral air entry, no crackles, wheezes or rhonchi Gastrointestinal: soft, lax, Normal bowel sounds, Non tender Skin : Warm, Dry Neurological : unable to assess Alert & oriented , muscle wasting LEs bilaterally, weak UEs, non-verbal Objective Data Active Medications Acetaminophen (Acetaminophen Oral Liquid 650 Mg/20.3 Ml Solution) 650 mg PO Q6H PRN PRN Reason: Fever Last Admin: 05/08/23 13:09 Dose: 650 mg Documented By: CLEMENCIA Aspirin (Aspirin 81 Mg Tab.Chew) 81 mg PO DAILY [facility] Last Admin: 05/11/23 08:50 Dose: 81 mg Documented By: AMALIA Atorvastatin Calcium (Atorvastatin Calcium 40 Mg Tablet) 40 mg PO BEDTIME [facility] Last Admin: 05/10/23 21:45 Dose: 40 mg Documented By: NICKIE Heparin Sodium (Porcine) (Heparin Sodium,Porcine 5,000 Unit/Ml Vial) 5,000 unit SUBCUT Q8H [facility] Last Admin: 05/11/23 05:32 Dose: 5,000 unit Documented By: NICKIE Metoprolol Tartrate (Metoprolol Tartrate 12.5 Mg Halftab) 12.5 mg PO BID [facility]; Protocol Last Admin: 05/11/23 08:50 Dose: 12.5 mg Documented By: AMALIA Naloxone HCl (Naloxone Hcl 0.4 Mg/Ml Vial) 0.2 mg IVPUSH Q2M PRN PRN Reason: Excessive sedation or RR < 8 Nystatin (Nystatin Powder 15 Gm Bottle) 1 appl TOPICAL [facility]; Protocol Last Admin: 05/11/23 09:04 Dose: 1 appl Documented By: AMALIA Olanzapine (Olanzapine 5 Mg Tablet) 5 mg PO BEDTIME [facility] Last Admin: 05/10/23 21:45 Dose: 5 mg Documented By: NICKIE Sertraline HCl (Sertraline Hcl 25 Mg Tablet) 25 mg PO DAILY [facility] Last Admin: 05/11/23 08:50 Dose: 25 mg Documented By: AMALIA Labs 05/07/23 06:02 05/07/23 06:02 Assessment and Plan (1) Physical deconditioning: Status: Acute (2) Anoxic encephalopathy: Status: Acute (3) Swallowing problem: Status: Acute Plan This is a 28-year-old man with underlying history of schizophrenia, alcohol use, marijuana use?admitted on 04/08/2023 after he was noted to be unresponsive by his girlfriend for unclear amount of time. Patient was transported by EMS to emergency room where he was intubated for hypoxia and respiratory distress.? On further evaluation patient with imaging finding of aspiration and left pneumothorax.? Initial left mid axillary chest tube placed in emergency room with persistence of pneumothorax and questionable subdiaphragmatic placement.? Chest tube removed and replaced with left midclavicular in 3rd intercostal space with air evacuation and improvement in pneumothorax.? Patient also noted to have acute kidney injury and rhabdomyolysis and started on IV fluid hydration. He underwent right gluteal fasciotomy with significant improvement in his CPK and renal function.? However, remains persistently encephalopathic.? MRI on 04/10/2023 with bilateral cerebral anoxic related encephalopathy. ? Evaluated by neurology with prognosis consider to be guarded, but not catastrophic. Overall with slow neurologic improvement, With significant improvement on 04/23/2023. extubated 04/23/2023 and downgraded to the medical floor on 04/25. Limited improvement in responsiveness # PHysical deconditioining Seems progressively worsening To do PT as tolerated Plan for placement, Court date 05/26 # Swallowing problem To do MACHINE SNELLER eval Modified diet #Anoxic brain injury secondary to aspiration pneumonia related to polysubstance overdose with anoxic encephalopathy Some improvement. Following simple commands. Slow to speak in one word or very short phrases continue PT/OT OOB to chair Exhibiting some selective mutism- ?r/t schizophrenia as well as anoxia brain injury. Has Blane's order as well. Seen by psych- restarted on sertraline 25mg and olanzapine increased to 5mg bedtime Guardian and [facility]D nursing concerned about minimal progress. Would like another MRI. Neurology consulted to evaluate if this would be beneficial and for recommendations on placement (guardian/CHD looking for brain focused rehab setting) seen by neuro who does not recommend another MRI at this time. His recovery can take 3-6 months or more and brain rehab facility is recommended # Right foot pain xray negative venous doppler us neg uric acid normal continue PT # acute respiratory failure with hypoxia secondary to aspiration pneumonitis, pneumothorax resolved s/p treatment with unasyn requiring intubation, extubated 04/23 on room air # Gluteal compartment syndrome s/p right gluteal fasciotomy 04/08 sutures removed no further surgical intervention required at this time # NSTEMI s/p heparin drip echo with preserved LVEF-basal inferior akinesis, regional wall motion abnormalities seen by cardiology - will need outpatient ischemic workup medical management with asa, statin, BB # acute pneumothorax resolved s/p left chest tube placement and subsequent removal # acute renal failure resolved with IV fluids # normocytic anemia H/H stable # rhabdomyolysis resolved # schizophrenia on zyprexa at baseline, resumed on lower dose 04/29 seems more depress. Eval by psych who resumed sertraline and increased olanzepine to 5mg bedtime DVT prophylaxis with Heparin DISPO plan for extensive rehab- brain rehab facility recommended Has [facility] guardian, awaiting amendment to guardianship for right to admit, court date May 26 Requires continued hospitalization for safe disposition Time Spent With Patient Time: Total time managing care of this patient today ____ minutes. Quality Stroke Does the patient have a stroke diagnosis?: No VTE Prior VTE?: No VTE Risk Level:: Medical - moderate - high VTE Device Contraindication: N/A - Device Ordered VTE Drug Contraindication: N/A - Med Ordered
--- NOTE | 2023-05-11 11:19 | MHC.CM.PN ---
Addendum entered by Malou Reyes RN 05/11/23 14:32: CM RECEIVED A CALL FROM PT'S [facility] NURSE RAY BELL UPDATED ON PT'S STATUS AND PLAN, RAY AWARE PT HAS TRANSFERRED TO [phone]. Original Note: EMR REVIEWED, PER MULTIDISCIPLINARY ROUNDS PT NOW POCKETING FOOD, SPEECH TO BE CONSULTED, CM STILL AWAITING BED OFFER AND CONTACTED [facility] AT 11:20AM [phone], PER LIAISON THEY DO NOT HAVE A BED HOWEVER THEY AWARE PT WILL REMAIN INPT UNTIL COURT DATE 05/26/23 WHEN GUARDIANSHIP WILL BE AMMENDED, CM WILL CONT REHAB BED SEARCH AND CONT TO FOLLOW D/C NEEDS.
[2023-05-11 12:00] VITALS: BP 125/83; PULSE 81; RESP 18; TEMP 36.6; O2SAT 98
--- NOTE | 2023-05-11 12:29 | MHC.CLN ---
F/U PO INTAKE 50-100% DIET RX: REGULAR -APPROPRIATE PT RECEIVING ENSURE TID PROVIDES 1050KCALS, 60G PROTEIN WITH 100% ACCEPTANCE CONTINUE TO MONITOR PO INTAKE AND IMPROVED WOUND HEALING
[2023-05-11 15:12] VITALS: BP 143/83; PULSE 83; RESP 16; TEMP 37.4; O2SAT 96
--- NOTE | 2023-05-11 16:38 | PC.NURSE ---
Pt arrived to unit from [facility] at approximately 1500, Report taken from GENI Galindo. At this time patient alert and awake, pt responds occasionally with one word answers. Pt arrived to unit in speciality chair but was slid back into bed because patient appeared uncomfortable. LS dim, non-pitting edema noted in bilateral lower legs, + BS, abd S/N/T, skin intact but red rash in groin noted. Pharmacy called for nystatin powder to be brought up. Pt denies pain at this time. Pt has T/c on draining clear yellow urine. Pt will begin turning schedule Q2 hours at this time. VSS, all safety measures in place, patient is resting comfortably in bed, all needs met at this time.
[2023-05-11 19:55] VITALS: BP 140/85; PULSE 93; RESP 16; TEMP 36.8; O2SAT 97
[2023-05-11] MEDS: Atorvastatin Calcium 40 MG TABLET PO (20:21)
[2023-05-11] MEDS: OLANZapine 5 MG TABLET PO (20:21)
[2023-05-11 23:56] VITALS: BP 129/85; PULSE 80; RESP 16; TEMP 36.1; O2SAT 96
[2023-05-12 03:46] VITALS: BP 125/83; PULSE 82; RESP 16; TEMP 36.2; O2SAT 95
[2023-05-12] MEDS: Heparin Sodium,Porcine 5,000 UNIT/ML VIAL 5000 UNIT SUBCUT ×3 (03:50→19:49)
--- NOTE | 2023-05-12 04:48 | PC.NURSE ---
Per previous RN shift report- pt has no IV access and MD was made aware.
[2023-05-12 05:33] VITALS: BMI 21.1
[2023-05-12 07:43] VITALS: BP 126/80; PULSE 84; RESP 16; TEMP 36.4; O2SAT 96
[2023-05-12] MEDS: Nystatin Powder 15 GM BOTTLE 1 APPL TOPICAL ×3 (08:25→20:04)
[2023-05-12] MEDS: Metoprolol Tartrate 12.5 MG HALFTAB PO ×2 (08:25→20:04)
[2023-05-12] MEDS: Aspirin 81 MG TAB.CHEW PO (08:25)
[2023-05-12] MEDS: Sertraline HCL 25 MG TABLET PO (08:25)
--- NOTE | 2023-05-12 12:00 | P.PNIM_ITS ---
Subjective Subjective Date of Service: 05/13/23 Interval History: PHysical deconditioining Review of Systems stting in chair Tolerating diet but low intake answering by shaking head ,looks at me, not making eye contact No reported overnight events Physical Exam Vital Signs: Vital Signs: Last Vital Signs Temp 97.6 F 05/12/23 07:43 Pulse 84 05/12/23 07:43 Resp 16 05/12/23 07:43 BP 126/80 05/12/23 07:43 Pulse Ox 96 05/12/23 07:43 O2 Del Method Room Air 05/12/23 07:43 O2 Flow Rate 18 04/08/23 09:15 FiO2 30 04/23/23 11:00 BMI result Body Mass Index 21.1 Constitutional : Awake, not in distress Neck : Normal inspection, Supple Cardiovascular : RRR, no JVP, no lower extremity edema Respiratory : good bilateral air entry,? no crackles, wheezes or rhonchi Gastrointestinal:? soft, lax, Normal bowel sounds, Non tender Skin : Warm, Dry Neurological : unable to assess Alert & oriented , muscle wasting LEs bilaterally, weak UEs, non-verbal Objective Data Active Medications Acetaminophen (Acetaminophen Oral Liquid 650 Mg/20.3 Ml Solution) 650 mg PO Q6H PRN PRN Reason: Fever Last Admin: 05/08/23 13:09 Dose: 650 mg Documented By: CLEMENCIA Aspirin (Aspirin 81 Mg Tab.Chew) 81 mg PO DAILY [facility] Last Admin: 05/12/23 08:25 Dose: 81 mg Documented By: DANIELLE Atorvastatin Calcium (Atorvastatin Calcium 40 Mg Tablet) 40 mg PO BEDTIME [facility] Last Admin: 05/11/23 20:21 Dose: 40 mg Documented By: NIRMAL Heparin Sodium (Porcine) (Heparin Sodium,Porcine 5,000 Unit/Ml Vial) 5,000 unit SUBCUT Q8H [facility] Last Admin: 05/12/23 03:50 Dose: 5,000 unit Documented By: NIRMAL Metoprolol Tartrate (Metoprolol Tartrate 12.5 Mg Halftab) 12.5 mg PO BID [facility]; Protocol Last Admin: 05/12/23 08:25 Dose: 12.5 mg Documented By: DANIELLE Naloxone HCl (Naloxone Hcl 0.4 Mg/Ml Vial) 0.2 mg IVPUSH Q2M PRN PRN Reason: Excessive sedation or RR < 8 Nystatin (Nystatin Powder 15 Gm Bottle) 1 appl TOPICAL [facility]; Protocol Last Admin: 05/12/23 08:25 Dose: 1 appl Documented By: DANIELLE Olanzapine (Olanzapine 5 Mg Tablet) 5 mg PO BEDTIME [facility] Last Admin: 05/11/23 20:21 Dose: 5 mg Documented By: NIRMAL Sertraline HCl (Sertraline Hcl 25 Mg Tablet) 25 mg PO DAILY [facility] Last Admin: 05/12/23 08:25 Dose: 25 mg Documented By: DANIELLE Labs 05/07/23 06:02 05/07/23 06:02 Assessment and Plan (1) Physical deconditioning: Status: Acute (2) Anoxic encephalopathy: Status: Acute (3) Swallowing problem: Status: Acute Plan 28-year-old man with underlying history of schizophrenia, alcohol use, marijuana use?admitted on 04/08/2023 after he was noted to be unresponsive by his girlfrduarte nd for unclear amount of time. Patient was transported by EMS to emergency room where he was intubated for hypoxia and respiratory distress.? On further evaluation patient with imaging finding of aspiration and left pneumothorax.? Initial left mid axillary chest tube placed in emergency room with persistence of pneumothorax and questionable subdiaphragmatic placement.? Chest tube removed and replaced with left midclavicular in 3rd intercostal space with air evacuation and improvement in pneumothorax.? Patient also noted to have acute kidney injury and rhabdomyolysis and started on IV fluid hydration. He underwent right gluteal fasciotomy with significant improvement in his CPK and renal func tion.? However, remains persistently encephalopathic.? MRI on 04/10/2023 with bilateral cerebral anoxic related encephalopathy. ? Evaluated by neurology with prognosis consider to be guarded, but not catastrophic. Overall with slow neurologic improvement, With significant improvement on 04/23/2023. extubated 04/23/2023 and downgraded to the medical floor on 04/25. Limited improvement in responsiveness # PHysical deconditioining Seems progressively worsening To do PT as tolerated Plan for placement, Court date 05/26 # Swallowing problem To do TICKET AGENT eval Modified diet #Anoxic brain injury secondary to aspiration pneumonia related to polysubstance overdose with anoxic encephalopathy Some improvement. Following simple commands. Slow to speak in one word or very short phrases continue PT/OT -d/w may need more often. OOB to chair Exhibiting some selective mutism- ?r/t schizophrenia as well as anoxia brain injury. Has Blane's order as well. Seen by psych- restarted on sertraline 25mg and olanzapine increased to 5mg bedtime Guardian and [facility]D nursing concerned about minimal progress. Would like another MRI. Neurology consulted to evaluate if this would be beneficial and for recommendations on placement (guardian/CHD looking for brain focused rehab setting) seen by neuro who does not recommend another MRI at this time. His recovery can take 3-6 months or more and brain rehab facility is recommended # Right foot pain xray negative venous doppler us neg uric acid normal continue PT # acute respiratory failure with hypoxia secondary to aspiration pneumonitis, pneumothorax resolved s/p treatment with unasyn requiring intubation, extubated 04/23 on room air # Gluteal compartment syndrome s/p right gluteal fasciotomy 04/08 sutures removed no further surgical intervention required at this time # NSTEMI s/p heparin drip echo with preserved LVEF-basal inferior akinesis, regional wall motion abnormalities seen by cardiology - will need outpatient ischemic workup medical management with asa, statin, BB # acute pneumothorax resolved s/p left chest tube placement and subsequent removal # acute renal failure resolved with IV fluids # normocytic anemia H/H stable # rhabdomyolysis resolved # schizophrenia on zyprexa at baseline, resumed on lower dose 04/29 seems more depress. Eval by psych who resumed sertraline and increased olanzepine to 5mg bedtime will add repeat psych eval DVT prophylaxis with Heparin DISPO plan for extensive rehab- brain rehab facility recommended Has [facility] guardian, awaiting amendment to guardianship for right to admit, court date May 26 Requires continued hospitalization for safe disposition Time Spent With Patient Time: Total time managing care of this patient today ____ minutes. Quality Stroke Does the patient have a stroke diagnosis?: No VTE Prior VTE?: No VTE Risk Level:: Medical - moderate - high VTE Device Contraindication: N/A - Device Ordered VTE Drug Contraindication: N/A - Med Ordered
--- NOTE | 2023-05-12 14:27 | MHC.SL.DTX ---
Dysphagia Diet modifications: Last documented Solid diet consistencies: Regular Last documented Liquid consistency: Thin Last documented Medication Administration: Changes made to current diet?: No Liquid Consistency and Strategies: Liquid Intake Recommendation: Thin Compensatory Strategies for Safe Swallow: Small Sips Compensatory Strategies for Safe Swallow(b): Sitting Upright (90 deg) Double Swallow Small Bites and Sips Alternate Liquids/Solids Rate of Ingestion Change Avoid Specific Foods Solid Food Consistency: Dietary Recommendations: Regular Additional Modifications to Solids: Recommend pt continue with unmodified textures, thin liquids, and crushed pills in puree. 1:1 supervision and aspiration precautions. Encourage independence feeding while providing assistance as needed throughout meal. Pt still needs assistance with cutting food and opening containers.FRAME CHANGER to continue to follow to monitor diet toleration, receptive/expressive language & functional communication. Oral Medication Intake: Crushed with Puree Strategies and Precautions to be Taken for Safe Swallow: Sitting Upright (90 deg) Double Swallow Small Bites and Sips Alternate Liquids/Solids Rate of Ingestion Change Avoid Specific Foods Supervision While Eating and/Drinking: Total Assistance (1:1) Foods to Avoid: Hard, tough to chew solids Swallowing Recommended Treatments: Compens. Strategy Educat. Level of Impact on: Daily activities: Interpersonal interactions: Education: Employment: Community: Prognosis for Improvement: Recommendation for Speech: Inpatient Speech Therapy Comment: Frequency/Duration: Date Range for Service Req: Timeline to reassess: Additional Comments: Treatment: Pt not responding verbally to factual or Y/N questions today. He is moving his eyes and looking to the speaker. Per RN, Pt was very agitated as evidenced by shaking of limbs and appearing nervous when moved from Med-Tele to Med-Surg. He may still be coping with some of the effects of that recent change. Per REHAB MANAGER, he has not been eating much and is noted to be pocketing food. FRAME CHANGER attempts to have the Pt answer questions unsuccessfuly. This is a regression of skills from previous encounters. He does not request food, but opens his mouth with 1:1 feed assistance. He accepted Ice Chips, Thin Liquids (Ekaterina Radha) via Straw, and Soft Breads (Cupcake and PB&J). Oral preparation was delayed and insufficient. On follow up bites he was seen to have residual bolus that he left on the body of his tongue without completing a swallow. He was able to clear his oral cavity when offered alternating sips of Thin Liquids with no overt s/s of aspiration. Assessment: Spring Former Hand Clinican/Clinical Fellow: No Supervisory Statement: I have reviewed and agree with the student/clinical fellow's documentation: N/A Speech Language Pathologist: Akbar Guzmán M.A., CCC-FRAME CHANGER
[2023-05-12 15:14] VITALS: BP 130/68; PULSE 81; RESP 16; TEMP 37.6; O2SAT 98
--- NOTE | 2023-05-12 15:25 | PC.NURSE ---
Patient voided only about 75 ml in last 8 hours. Bladder scanned for 293ml. Dr. Reyes made aware. IV fluids to be ordered. Oncoming nurse made aware and to attempt IV access.
--- NOTE | 2023-05-12 18:06 | PC.NURSE ---
unable to obtain IV access at this time , DR Reyes was notified, pt assisted with po intake , he is refusing solids , willing to drink liquids.Urinated 425 ml concentrated urine
[2023-05-12] MEDS: Megestrol Acetate 400 MG/10 ML ORAL.SUSP PO (18:13)
[2023-05-12 20:03] VITALS: BP 129/82; PULSE 75; RESP 20; TEMP 36.9
[2023-05-12] MEDS: Atorvastatin Calcium 40 MG TABLET PO (20:04)
[2023-05-12] MEDS: OLANZapine 5 MG TABLET PO (20:04)
[2023-05-13 03:29] VITALS: BP 138/67; PULSE 93; RESP 16; TEMP 37; O2SAT 98
[2023-05-13] MEDS: Heparin Sodium,Porcine 5,000 UNIT/ML VIAL 5000 UNIT SUBCUT ×3 (04:50→21:53)
[2023-05-13] MEDS: Dextrose 5 % and 0.9 % NaCl 1,000 ML 70 ML IVCONT (04:50)
[2023-05-13 06:00] VITALS: BMI 22.5
[2023-05-13 07:14] VITALS: BP 132/86; PULSE 69; RESP 16; TEMP 36.5; O2SAT 98
[2023-05-13] MEDS: Aspirin 81 MG TAB.CHEW PO (07:33)
[2023-05-13] MEDS: Metoprolol Tartrate 12.5 MG HALFTAB PO ×2 (07:33→21:54)
[2023-05-13] MEDS: Nystatin Powder 15 GM BOTTLE 1 APPL TOPICAL ×2 (07:33→21:54)
[2023-05-13] MEDS: Sertraline HCL 25 MG TABLET PO (07:34)
--- NOTE | 2023-05-13 10:42 | MHC.CLN ---
Addendum entered by Ana Maria Dunlap, MORGAN 05/13/23 10:55: SIGNIFICANT WEIGHT LOSS SINCE ADMISSION, -26%. CONTINUE REGULAR DIET AND ENSURE TID. ENCOURAGE INTAKE ABLE. Original Note: F/U SEE CHARGE OUT CLERK NOTES. 1:1 FEED , POCKETING, NEEDS CUES TO SWALLOW. CURRENT INTKE VARIABLE, BITES-50%. CONTINUE REGULAR DIET WITH ENSURE TID. SUPPLEMENT PROVIDES ADDITIONAL 1050 KCALS, 60 G PROTEIN. ACCEPTS FLUIDS WITH RECENT LIMITED INTAKE OF SOLIDS. SKIN WITH RASH/REDNESS TO GROIN. CONTINUE TO MONITOR PO INTAKE AND SKIN INTEGRITY.
[2023-05-13 11:30] VITALS: BP 131/82; PULSE 66; RESP 17; TEMP 36.3; O2SAT 98
--- NOTE | 2023-05-13 12:41 | MHC.SL.SWA ---
Risk of Aspiration Due to: Hx of Recent Extubation Dysphasia Diet Status: No change; continue w/ unmodified diet Liquid Consistency and Strategies for Safe Swallow: Liquid Intake Recommendation: Thin Liquid Intake Strategies: Small Sips Solid Food Consistency: Dietary Recommendations: Regular Oral Medication Intake: Crushed with Puree Please contact the pharmacy regarding appropriate crushable or liquid drug formulations that are available whenever modified delivery is recommended. Compensatory Strategies and Precautions to be Taken for Safe Swallow: Sitting Upright (90 deg) Double Swallow Small Bites and Sips Alternate Liquids/Solids Rate of Ingestion Change Avoid Specific Foods Supervision While Eating and Drinking for Safe Swallow: Total Assistance (1:1) Swallowing Recommended Treatments: Compens. Strategy Educat. Recommendation for Speech: Inpatient Speech Therapy Comment: Recommend continue unrestricted diet to promote optimal PO intake. He remains a 1:1 feed and may benefit from preferred items to motivate intake. Please alternate bites and sips to improve oral clearance and continue checks for pocketing of solids. [employer] to continue to follow to monitor diet toleration, receptive/expressive language & functional communication. Driver License Examiner Clinican/Clinical Fellow: No Supervisory Statement: I have reviewed and agree with the student/clinical fellow's documentation: N/A Speech Language Pathologist: Thu Lara M.A., [employer]
--- NOTE | 2023-05-13 13:51 | MHC.CM.PN ---
Per MD rounds a psych consult has been ordered. Discharge is pending Guardianship amendment . Court date scheduled for 05/26/23. CM will continue to follow for discharge. Patient will transport via BLS.
--- NOTE | 2023-05-13 14:22 | HO.PM.IMPN ---
Subjective Subjective Date of Service: 05/13/23 Interval History: Anoxic brain injury s Review of Systems stting in chair Tolerating diet but low intake answering by shaking head ,looks at me, not making eye contact No reported overnight events Physical Exam Vital Signs: Vital Signs: Last Vital Signs Temp 97.4 F 05/13/23 11:30 Pulse 66 05/13/23 11:30 Resp 17 05/13/23 11:30 BP 131/82 05/13/23 11:30 Pulse Ox 98 05/13/23 11:30 O2 Del Method Room Air 05/13/23 11:30 O2 Flow Rate 18 04/08/23 09:15 FiO2 30 04/23/23 11:00 BMI result Body Mass Index 22.5 Constitutional : Awake, not in distress Neck : Normal inspection, Supple Cardiovascular : RRR, no JVP, no lower extremity edema Respiratory : good bilateral air entry,? no crackles, wheezes or rhonchi Gastrointestinal:? soft, lax, Normal bowel sounds, Non tender Skin : Warm, Dry Neurological : unable to assess Alert & oriented , muscle wasting LEs bilaterally, weak UEs, non-verbal Objective Data Active Medications Acetaminophen (Acetaminophen Oral Liquid 650 Mg/20.3 Ml Solution) 650 mg PO Q6H PRN PRN Reason: Fever Last Admin: 05/08/23 13:09 Dose: 650 mg Documented By: CLEMENCIA Aspirin (Aspirin 81 Mg Tab.Chew) 81 mg PO DAILY [facility] Last Admin: 05/13/23 07:33 Dose: 81 mg Documented By: JADIEL Atorvastatin Calcium (Atorvastatin Calcium 40 Mg Tablet) 40 mg PO BEDTIME [facility] Last Admin: 05/12/23 20:04 Dose: 40 mg Documented By: USMAN Heparin Sodium (Porcine) (Heparin Sodium,Porcine 5,000 Unit/Ml Vial) 5,000 unit SUBCUT Q8H [facility] Last Admin: 05/13/23 11:54 Dose: 5,000 unit Documented By: JADIEL Dextrose/Sodium Chloride (D5ns) 1,000 mls @ 70 mls/hr IVCONT .[id number] [facility] Last Infusion: 05/13/23 11:57 Dose: 0 mls/hr Documented By: JADIEL Metoprolol Tartrate (Metoprolol Tartrate 12.5 Mg Halftab) 12.5 mg PO BID [facility]; Protocol Last Admin: 05/13/23 07:33 Dose: 12.5 mg Documented By: JADIEL Naloxone HCl (Naloxone Hcl 0.4 Mg/Ml Vial) 0.2 mg IVPUSH Q2M PRN PRN Reason: Excessive sedation or RR < 8 Nystatin (Nystatin Powder 15 Gm Bottle) 1 appl TOPICAL TID [facility]; Protocol Last Admin: 05/13/23 07:33 Dose: 1 appl Documented By: JADIEL Olanzapine (Olanzapine 5 Mg Tablet) 5 mg PO BEDTIME [facility] Last Admin: 05/12/23 20:04 Dose: 5 mg Documented By: OZORALB Sertraline HCl (Sertraline Hcl 25 Mg Tablet) 25 mg PO DAILY [facility] Last Admin: 05/13/23 07:34 Dose: 25 mg Documented By: JADIEL Labs 05/07/23 06:02 05/07/23 06:02 Assessment and Plan (1) Physical deconditioning: Status: Acute (2) Anoxic encephalopathy: Status: Acute (3) Swallowing problem: Status: Acute Plan 28-year-old man with underlying history of schizophrenia, alcohol use, marijuana use?admitted on 04/08/2023 after he was noted to be unresponsive by his girlfriend for unclear amount of time. Patient was transported by EMS to emergency room where he was intubated for hypoxia and respiratory distress.? On further evaluation patient with imaging finding of aspiration and left pneumothorax.? Initial left mid axillary chest tube placed in emergency room with persistence of pneumothorax and questionable subdiaphragmatic placement.? Chest tube removed and replaced with left midclavicular in 3rd intercostal space with air evacuation and improvement in pneumothorax.? Patient also noted to have acute kidney injury and rhabdomyolysis and started on IV fluid hydration. He underwent right gluteal fasciotomy with significant improvement in his CPK and renal function.? However, remains persistently encephalopathic.? MRI on 04/10/2023 with bilateral cerebral anoxic related encephalopathy. ? Evaluated by neurology with prognosis consider to be guarded, but not catastrophic. Overall with slow neurologic improvement, With significant improvement on 04/23/2023. extubated 04/23/2023 and downgraded to the medical floor on 04/25. Limited improvement in responsiveness # PHysical deconditioining Seems progressively worsening To do PT as tolerated Plan for placement, Court date 7/11 # Swallowing problem To do DISTILLATION OPERATOR HELPER eval Modified diet #Anoxic brain injury secondary to aspiration pneumonia related to polysubstance overdose with anoxic encephalopathy Some improvement. Following simple commands. Slow to speak in one word or very short phrases continue PT/OT -d/w may need more often. OOB to chair Exhibiting some selective mutism- ?r/t schizophrenia as well as anoxia brain injury. Has Blane's order as well. Seen by psych- restarted on sertraline 25mg and olanzapine increased to 5mg bedtime Guardian and [facility] nursing concerned about minimal progress. Would like another MRI. Neurology consulted to evaluate if this would be beneficial and for recommendations on placement (guardian/[facility] looking for brain focused rehab setting) seen by neuro who does not recommend another MRI at this time. His recovery can take 3-6 months or more and brain rehab facility is recommended # Right foot pain xray negative venous doppler us neg uric acid normal continue PT # acute respiratory failure with hypoxia secondary to aspiration pneumonitis, pneumothorax resolved s/p treatment with unasyn requiring intubation, extubated 04/23 on room air # Gluteal compartment syndrome s/p right gluteal fasciotomy 04/08 sutures removed no further surgical intervention required at this time # NSTEMI s/p heparin drip echo with preserved LVEF-basal inferior akinesis, regional wall motion abnormalities seen by cardiology - will need outpatient ischemic workup medical management with asa, statin, BB # acute pneumothorax resolved s/p left chest tube placement and subsequent removal # acute renal failure resolved with IV fluids # normocytic anemia H/H stable # rhabdomyolysis resolved # schizophrenia on zyprexa at baseline, resumed on lower dose 04/29 seems more depress. Eval by psych who resumed sertraline and increased olanzepine to 5mg bedtime repeat psych eval eval pending DVT prophylaxis with Heparin DISPO plan for extensive rehab- brain rehab facility recommended Has [facility] guardian, awaiting amendment to guardianship for right to admit, court date May 26 Requires continued hospitalization for safe disposition Time Spent With Patient Time: Total time managing care of this patient today ____ minutes. Quality Stroke Does the patient have a stroke diagnosis?: No VTE Prior VTE?: No VTE Risk Level:: Medical - moderate - high VTE Device Contraindication: N/A - Device Ordered VTE Drug Contraindication: N/A - Med Ordered
[2023-05-13 15:44] VITALS: BP 136/80; PULSE 72; RESP 16; TEMP 36.8; O2SAT 97
--- NOTE | 2023-05-13 17:21 | P.CNPS_ITS ---
History of Present Illness Date of Service: 05/13/2023 Chief Complaint: Alteration of mental status, acute respiratory mireya Reason for Consult: Team questions if depressive, psychotic symptoms are interfering with overall condition, functioning, eating, talking and recovery process. Requesting physician: Buzz Reyes Discussed with referring provider: Yes (text) Sources of Information: patient interviewed and chart reviewed Additional Sources of Information: Nursing team reports no agitation, no overt psychosis they have observed. HPI Narrative: 28 yo male, history of schizophrenia, alcohol use disorder, cannabis use disorder. Team reports admission of 04/08/23 when he was found unresponsive by his girlfriend. He was intubated by EMS, found to have aspiration pneumonia and a L pneumothorax. He required chest tube and midclavicular, had JANNY, NSTEMI and rhabdomyolysis. R. Gluteal fasciotomy improved CPK values and renal functioning. MRI 04/10 indicated bilateral cerebral anoxic encephalopathy. He was extubated 04/23/23 and transitioned to medicine on 04/25/23. Team is preparing for rehab level of care. Court 05/26 to update guardianship. Seen 05/05/23 when olanzapine was titrated and sertraline initiated. By history, during his last admit to [facility] he utilized and tolerated Olanzapine 25 mg daily with 5 mg bid prn and Sertraline 25 mg daily. He reportedly was taking 10 mg Olanzapine daily on admission. Today, he is moved to the third floor. He continues to be a poor historian, however, appears more alert, brighter. He has good eye contact and is accepting assist from team for feeding. Team reports he is not progressing as well as they expected and question if his mental health issues are impeding rec overy. He has tolerated increase in Olanzapine and addition of Sertraline thus far. Swallowing is a current concern. Mutism as well. By history, when pt was admitted to psychiatry in 04/26/21 - 06/27/21 vebal expression was limited with psychotic. This improved with treatment, however, verbalizations were still limited with treatment. Invega trial he reported side effects, thus the change to Olanzapine which he reported had improved effect. Past Psychiatric History: [facility] 2020 with [facility] transfer Multiple hospital stays by history Hx of Blane's guardianship Hx of Depakote and Haldol Dec 100 mg/ml 1 ml, Invega Sustenna, Benztropine, Clonidine, Gabapentin, Olanzapine, Sertraline, Trazodone Medical Evaluation Reviewed: Yes Review of Systems Comments: Awake, alert, maintains eye contact, attentive to enviornment, eating dinner with team assist and feeding. Appears brighter, more passively engaged, yet non verbal. [facility] Medical History Acute renal injury Aspiration pneumonitis Chronic schizophrenia Compartment syndrome of buttock Pneumothorax Pneumothorax, left PTSD (post-traumatic stress disorder) Rhabdomyolysis Schizoaffective disorder Surgical History Hx of hand surgery Family History: Mental illness on father's side along with addiction-father with alcoholism Trauma History: Significant trauma by history Diagnostics Vital Signs (24Hr): Vital Signs - 24 hr 05/12/23 20:03 05/13/23 03:29 05/13/23 07:14 Temperature 98.4 F 98.6 F 97.7 F Pulse Rate 75 93 69 Respiratory Rate 20 16 16 Blood Pressure 129/82 138/67 132/86 Pulse Oximetry 98 98 Oxygen Delivery Method Room Air Room Air 05/13/23 11:30 05/13/23 15:44 Temperature 97.4 F 98.2 F Pulse Rate 66 72 Respiratory Rate 17 16 Blood Pressure 131/82 136/80 Pulse Oximetry 98 97 Oxygen Delivery Method Room Air Room Air BMI result Body Mass Index 22.5 Labs 05/07/23 06:02 05/07/23 06:02 Imaging Radiology Impressions: ITS Impressions Chest X-Ray 04/08/23 08:41 IMPRESSION: 1. New ETT catheter in good position. 2. Diffuse right lung and left mid and lower lung patchy opacity likely pulmonary edema or infiltrate. Head CT 04/08/23 09:53 IMPRESSION: No acute intracranial process seen. There is no acute fracture or dislocation cervical spine. There is mild straightening of cervical lordosis likely related to spasm or positional. There is endotracheal tube with its tip in the mid trachea. There is a right apical/upper lobe moderate parenchymal contusion/edema or infiltrate. Abdomen/Pelvis CT 04/08/23 10:08 IMPRESSION: Extended dependent bilateral infiltrates question aspiration. Left pneumothorax approximately 15-20% without shift. There are no rib fractures seen. No acute process seen in the abdomen or pelvis. Endotracheal tube and a Steen's catheter are in satisfactory position. Cervical Spine CT 04/08/23 10:08 IMPRESSION: No acute intracranial process seen. There is no acute fracture or dislocation cervical spine. There is mild straightening of cervical lordosis likely related to spasm or positional. There is endotracheal tube with its tip in the mid trachea. There is a right apical/upper lobe moderate parenchymal contusion/edema or infiltrate. Chest CT 04/08/23 10:08 IMPRESSION: Extended dependent bilateral infiltrates question aspiration. Left pneumothorax approximately 15-20% without shift. There are no rib fractures seen. No acute process seen in the abdomen or pelvis. Endotracheal tube and a Steen's catheter are in satisfactory position. Chest X-Ray 04/08/23 12:34 IMPRESSION: 1. Persistent left-sided pneumothorax with chest tube in place. It is difficult to tell if the chest tube is in the pleural space. Recommend seeing the chest tube is fluctuating with respirations. If this cannot be ascertained, a CT scan could always be performed to confirm placement. 2. Diffuse right-sided airspace disease with some improvement in the left-sided airspace disease. Chest X-Ray 04/08/23 14:26 IMPRESSION: Persistent left-sided pneumothorax with a chest tube along the left base. The exact tip of chest tube tip is not known since there is no reduction in the pneumothorax. A CT chest without contrast may be helpful. No change in bilateral interstitial infiltrates or edema. Chest X-Ray 04/08/23 15:15 IMPRESSION: Left basilar chest tube has been removed. There is a new chest tube and left midlung. There is near complete resolution of left pneumothorax. Stable endotracheal tube and bilateral lung infiltrates. Chest X-Ray 04/08/23 19:55 IMPRESSION: 1. Endotracheal tube terminates at 4.7 cm above the cory. 2. Right IJ CVC catheter with the tip projecting over the cavoatrial junction. 3. No significant residual pneumothorax. 4. Stable right greater than left airspace opacities. Chest X-Ray 04/09/23 21:42 IMPRESSION: 1. Support lines and catheters are in satisfactory position. 2. Patchy opacity right upper lobe, right lower lobe and left lower lobe infiltrates are unchanged.. Brain MRI 04/10/23 16:22 IMPRESSION: There are symmetrically distributed ill-defined signal changes involving the centrum semiovale of both cerebral hemispheres. This pattern of disease can be seen in the setting of delayed reversible post hypoxic leukoencephalopathy. Other toxic or metabolic etiologies are not definitively excluded. No intracranial mass effect or hydrocephalus. Chest X-Ray 04/13/23 13:56 IMPRESSION: 1. Significant improvement in right upper lobe infiltrate with minimal residual changes seen in the right lung base. 2. New enteric tube tip is below the diaphragm in stomach. 3. No change in support lines and catheters. Chest X-Ray 04/14/23 05:06 IMPRESSION: Nasogastric tube tip not definitely seen. Otherwise satisfactory position of support lines and tubes. No pneumothorax. Improving airspace disease. Chest X-Ray 04/18/23 09:07 IMPRESSION: Status post left chest tube removal with no pneumothorax identified. Improving right lung disease. Chest X-Ray 04/18/23 09:55 IMPRESSION: Endotracheal tube approximately 3.5 cm above the cory. Interval development of retrocardiac density likely related to left lower lobe atelectasis. Persistent right perihilar disease. No pneumothorax appreciated. Ankle X-Ray 04/27/23 13:00 IMPRESSION: Unremarkable examination. Foot X-Ray 04/27/23 13:00 IMPRESSION: Unremarkable examination. Venous Duplex 04/29/23 17:13 IMPRESSION: No DVT demonstrated in the right lower extremity. Mental Status Exam Mental Status Exam Patient Appearance: Appropriate Patient Orientation: Person Level of Consciousness: Awake, Alert and Follows Commands Patient Behavior: Passive and Good Eye Contact Mood Description: Constricted Affect Description: Constricted Speech Pattern: No Speech Medications Medications Current Medications Acetaminophen (Acetaminophen Oral Liquid 650 Mg/20.3 Ml Solution) 650 mg PO Q6H PRN PRN Reason: Fever Last Admin: 05/08/23 13:09 Dose: 650 mg Aspirin (Aspirin 81 Mg Tab.Chew) 81 mg PO DAILY [facility] Last Admin: 05/13/23 07:33 Dose: 81 mg Atorvastatin Calcium (Atorvastatin Calcium 40 Mg Tablet) 40 mg PO BEDTIME [facility] Last Admin: 05/12/23 20:04 Dose: 40 mg Heparin Sodium (Porcine) (Heparin Sodium,Porcine 5,000 Unit/Ml Vial) 5,000 unit SUBCUT Q8H [facility] Last Admin: 05/13/23 11:54 Dose: 5,000 unit Dextrose/Sodium Chloride (D5ns) 1,000 mls @ 70 mls/hr IVCONT .[id number] [facility] Last Infusion: 05/13/23 11:57 Dose: 0 mls/hr Metoprolol Tartrate (Metoprolol Tartrate 12.5 Mg Halftab) 12.5 mg PO BID [facility]; Protocol Last Admin: 05/13/23 07:33 Dose: 12.5 mg Naloxone HCl (Naloxone Hcl 0.4 Mg/Ml Vial) 0.2 mg IVPUSH Q2M PRN PRN Reason: Excessive sedation or RR < 8 Nystatin (Nystatin Powder 15 Gm Bottle) 1 appl TOPICAL TID [facility]; Protocol Last Admin: 05/13/23 15:39 Dose: Not Given Olanzapine (Olanzapine 5 Mg Tablet) 5 mg PO BEDTIME [facility] Last Admin: 05/12/23 20:04 Dose: 5 mg Sertraline HCl (Sertraline Hcl 25 Mg Tablet) 25 mg PO DAILY [facility] Last Admin: 05/13/23 07:34 Dose: 25 mg Allergies Allergies Allergy/AdvReac Type Severity Reaction Status Date / Time Penicillins [PCN] Allergy Unknown UNKNOWN Verified 12/12/21 23:33 Assessment & Plan Assessment & Plan (1) Anoxic encephalopathy: Status: Acute Code(s): G93.1 - Anoxic brain damage, not elsewhere classified (2) Polysubstance abuse: Status: Acute Code(s): F19.10 - Other psychoactive substance abuse, uncomplicated (3) Schizophrenia: Qualifiers: Schizophrenia type: unspecified Qualified Code(s): F20.9 - Schizophrenia, unspecified Status: Acute Code(s): F20.9 - Schizophrenia, unspecified Plan 28 yo male, history of schizophrenia, alcohol use disorder, cannabis use disorder with physical deconditioning, anoxic encephalopathy, swallowing issues not progressing as well as team had expected due to possibility of interference of psychiatric symptoms. Will continue medication titration and monitor. Pt is non-verbal today, however team reports no evidence of agitation, aggression or psychosis. Plan: Increase Sertraline to 50 mg daily. Increase Olanzapine to 10 mg daily. B12, Folate, Ammonia B12, Folic Acid, MVI supplementation Total time managing care of this patient today ____ minutes. Informed Consent: does not understand (guardianship amendment pending)
[2023-05-13 20:00] VITALS: BP 127/79; PULSE 65; RESP 16; TEMP 36.5; O2SAT 98
[2023-05-13] MEDS: OLANZapine 10 MG TABLET PO (21:53)
[2023-05-13] MEDS: Atorvastatin Calcium 40 MG TABLET PO (21:54)
[2023-05-13 23:49] VITALS: BP 142/88; PULSE 79; RESP 19; TEMP 36.3; O2SAT 97
[2023-05-14 04:00] VITALS: BP 133/77; PULSE 83; RESP 19; TEMP 36.2; O2SAT 98
[2023-05-14] MEDS: Heparin Sodium,Porcine 5,000 UNIT/ML VIAL 5000 UNIT SUBCUT ×3 (04:07→21:48)
[2023-05-14 06:20] LABS: Ammonia 45 umol/L (13-55)
[2023-05-14 08:00] VITALS: BP 126/84; PULSE 69; RESP 18; TEMP 36.1; O2SAT 98
[2023-05-14 09:13] LABS: Folate 5.8 ng/mL (> or = 4.0); Vitamin B12 720 pg/mL (200-900)
[2023-05-14] MEDS: Folic Acid 1 MG TABLET PO (09:42)
[2023-05-14] MEDS: Sertraline HCL 50 MG TABLET PO (09:42)
[2023-05-14] MEDS: Multivitamin TABLET 1 TAB PO (09:43)
[2023-05-14] MEDS: Metoprolol Tartrate 12.5 MG HALFTAB PO ×2 (09:43→21:48)
[2023-05-14] MEDS: Aspirin 81 MG TAB.CHEW PO (09:43)
[2023-05-14] MEDS: Thiamine HCL 100 MG TABLET PO (09:43)
[2023-05-14] MEDS: Dextrose 5 % and 0.9 % NaCl 1,000 ML 70 ML IVCONT (09:44)
[2023-05-14] MEDS: Nystatin Powder 15 GM BOTTLE 1 APPL TOPICAL ×3 (09:51→22:03)
--- NOTE | 2023-05-14 10:32 | P.PNIM_ITS ---
Subjective Subjective Date of Service: 05/14/23 Interval History: follow up Review of Systems makes eye contact today ,t talked with staff''asked for gingrale'' later when went to check we asked does he need more gingrale or food -says no No reported overnight events Physical Exam Vital Signs: Vital Signs: Last Vital Signs Temp 97.0 F 05/14/23 08:00 Pulse 69 05/14/23 08:00 Resp 18 05/14/23 08:00 BP 126/84 05/14/23 08:00 Pulse Ox 98 05/14/23 08:00 O2 Del Method Room Air 05/14/23 08:00 O2 Flow Rate 18 04/08/23 09:15 FiO2 30 04/23/23 11:00 BMI result Body Mass Index 22.5 Constitutional : Awake, not in distress Neck : Normal inspection, Supple Cardiovascular : RRR, no JVP, no lower extremity edema Respiratory : good bilateral air entry,? no crackles, wheezes or rhonchi Gastrointestinal:? soft, lax, Normal bowel sounds, Non tender Skin : Warm, Dry Neurological : unable to assess Alert & oriented , muscle wasting LEs bilatera lly, weak UEs, non-verbal Objective Data Active Medications Acetaminophen (Acetaminophen Oral Liquid 650 Mg/20.3 Ml Solution) 650 mg PO Q6H PRN PRN Reason: Fever Last Admin: 05/08/23 13:09 Dose: 650 mg Documented By: CLEMENCIA Aspirin (Aspirin 81 Mg Tab.Chew) 81 mg PO DAILY [facility] Last Admin: 05/14/23 09:43 Dose: 81 mg Documented By: DIAZ Atorvastatin Calcium (Atorvastatin Calcium 40 Mg Tablet) 40 mg PO BEDTIME [facility] Last Admin: 05/13/23 21:54 Dose: 40 mg Documented By: BRAEDEN Folic Acid (Folic Acid 1 Mg Tablet) 1 mg PO DAILY [facility] Last Admin: 05/14/23 09:42 Dose: 1 mg Documented By: DIAZ Heparin Sodium (Porcine) (Heparin Sodium,Porcine 5,000 Unit/Ml Vial) 5,000 unit SUBCUT Q8H [facility] Last Admin: 05/14/23 04:07 Dose: 5,000 unit Documented By: BRAEDEN Dextrose/Sodium Chloride (D5ns) 1,000 mls @ 70 mls/hr IVCONT .[id number] [facility] Last Admin: 05/14/23 09:44 Dose: 70 mls/hr Documented By: DIAZ Metoprolol Tartrate (Metoprolol Tartrate 12.5 Mg Halftab) 12.5 mg PO BID [facility]; Protocol Last Admin: 05/14/23 09:43 Dose: 12.5 mg Documented By: DIAZ Multivitamins/Vitamin C (Multivitamin Tablet) 1 tab PO DAILY [facility] Last Admin: 05/14/23 09:43 Dose: 1 tab Documented By: DIAZ Naloxone HCl (Naloxone Hcl 0.4 Mg/Ml Vial) 0.2 mg IVPUSH Q2M PRN PRN Reason: Excessive sedation or RR < 8 Nystatin (Nystatin Powder 15 Gm Bottle) 1 appl TOPICAL TID [facility]; Protocol Last Admin: 05/14/23 09:51 Dose: 1 appl Documented By: DIAZ Olanzapine (Olanzapine 10 Mg Tablet) 10 mg PO BEDTIME [facility] Last Admin: 05/13/23 21:53 Dose: 10 mg Documented By: BRAEDEN Sertraline HCl (Sertraline Hcl 50 Mg Tablet) 50 mg PO DAILY [facility] Last Admin: 05/14/23 09:42 Dose: 50 mg Documented By: DIAZ Thiamine HCl (Thiamine Hcl 100 Mg Tablet) 100 mg PO DAILY [facility] Last Admin: 05/14/23 09:43 Dose: 100 mg Documented By: DIAZ Labs 05/07/23 06:02 05/07/23 06:02 Labs: Laboratory Results - last 24 hr 05/14/23 05/14/23 05:56 08:02 Ammonia 45 Vitamin B12 720 Folate 5.8 Assessment and Plan (1) Physical deconditioning: Status: Acute (2) Anoxic encephalopathy: Status: Acute (3) Swallowing problem: Status: Acute Plan 28-year-old man with underlying history of schizophrenia, alcohol use, marijuana use?admitted on 04/08/2023 after he was noted to be unresponsive by his girlfrien d for unclear amount of time. Patient was transported by EMS to emergency room where he was intubated for hypoxia and respiratory distress.? On further evaluation patient with imaging finding of aspiration and left pneumothorax.? Initial left mid axillary chest tube placed in emergency room with persistence of pneumothorax and questionable subdiaphragmatic placement.? Chest tube removed and replaced with left midclavicular in 3rd intercostal space with air evacuation and improvement in pneumothorax.? Patient also noted to have acute kidney injury and rhabdomyolysis and started on IV fluid hydration. He underwent right gluteal fasciotomy with significant improvement in his CPK and renal funct ion.? However, remains persistently encephalopathic.? MRI on 04/10/2023 with bilateral cerebral anoxic related encephalopathy. ? Evaluated by neurology with prognosis consider to be guarded, but not catastrophic. Overall with slow neurologic improvement, With significant improvement on 04/23/2023. extubated 04/23/2023 and downgraded to the medical floor on 04/25. Limited improvement in responsiveness # PHysical deconditioining Seems progressively worsening To do PT as tolerated Plan for placement, Court date 05/26 # Swallowing problem To do SURVEY CREW CHIEF eval Modified diet #Anoxic brain injury secondary to aspiration pneumonia related to polysubstance overdose with anoxic encephalopathy Some improvement. Following simple commands. Slow to speak in one word or very short phrases continue PT/OT -d/w may need more often. OOB to chair Exhibiting some selective mutism- ?r/t schizophrenia as well as anoxia brain injury. Has Blane's order as well. Seen by psych- restarted on sertraline 25mg and olanzapine increased to 5mg bedtime Guardian and [facility]D nursing concerned about minimal progress. Would like another MRI. Neurology consulted to evaluate if this would be beneficial and for recommendations on placement (guardian/[facility]D looking for brain focused rehab setting) seen by neuro who does not recommend another MRI at this time. His recovery can take 3-6 months or more and brain rehab facility is recommended # Right foot pain xray negative venous doppler us neg uric acid normal continue PT # acute respiratory failure with hypoxia secondary to aspiration pneumonitis, pneumothorax resolved s/p treatment with unasyn requiring intubation, extubated 04/23 on room air # Gluteal compartment syndrome s/p right gluteal fasciotomy 04/08 sutures removed no further surgical intervention required at this time # NSTEMI s/p heparin drip echo with preserved LVEF-basal inferior akinesis, regional wall motion abnormalities seen by cardiology - will need outpatient ischemic workup medical management with asa, statin, BB # acute pneumothorax resolved s/p left chest tube placement and subsequent removal # acute renal failure resolved with IV fluids # normocytic anemia H/H stable # rhabdomyolysis resolved # schizophrenia on zyprexa at baseline, resumed on lower dose 04/29 seems more depress. Eval by psych who resumed sertraline and increased olanzepine to 5mg bedtime psych follow up noted -adjusted zoloft nad olanzapine. DVT prophylaxis with Heparin DISPO plan for extensive rehab- brain rehab facility recommended Has [facility] guardian, awaiting amendment to guardianship for right to admit, court date May 26 Requires continued hospitalization for safe disposition Time Spent With Patient Time: Total time managing care of this patient today ____ minutes. Quality Stroke Does the patient have a stroke diagnosis?: No VTE Prior VTE?: No VTE Risk Level:: Medical - moderate - high VTE Device Contraindication: N/A - Device Ordered VTE Drug Contraindication: N/A - Med Ordered
[2023-05-14 11:31] VITALS: BP 131/81; PULSE 52; RESP 18; TEMP 36.6; O2SAT 98
--- NOTE | 2023-05-14 13:40 | MHC.SL.DTX ---
Dysphagia Diet modifications: Last documented Solid diet consistencies: Regular Last documented Liquid consistency: Thin Last documented Medication Administration: Changes made to current diet?: No Liquid Consistency and Strategies: Liquid Intake Recommendation: Thin Compensatory Strategies for Safe Swallow: Small Sips Compensatory Strategies for Safe Swallow(b): Sitting Upright (90 deg) Double Swallow Small Bites and Sips Alternate Liquids/Solids Rate of Ingestion Change Avoid Specific Foods Solid Food Consistency: Dietary Recommendations: Regular Additional Modifications to Solids: Oral Medication Intake: Crushed with Puree Strategies and Precautions to be Taken for Safe Swallow: Sitting Upright (90 deg) Double Swallow Small Bites and Sips Alternate Liquids/Solids Rate of Ingestion Change Avoid Specific Foods Supervision While Eating and/Drinking: Total Assistance (1:1) Foods to Avoid: Swallowing Recommended Treatments: Compens. Strategy Educat. Level of Impact on: Daily activities: Interpersonal interactions: Education: Employment: Community: Prognosis for Improvement: Recommendation for Speech: Inpatient Speech Therapy Comment: Patient evidences some minor improvements in responding/engaging with others today, making occasional eye contact, responding with no to questions and mmm to agree or acknowledge. Patient is eating preferred foods on tray, but avoiding more substantive/nutritional elements. PALLETIZER OPERATOR will continue to follow Frequency/Duration: Date Range for Service Req: Timeline to reassess: Additional Comments: Pt currently in IMC. Per CM, pt will need LTC Rehab. Continue to monitor expressive/receptive language & voice. Pt observed to present w/ soft voice on 04/28. No verbal responses on 04/27 or 04/29. Treatment: Attempted to see patient X 2 today, initially in the a.m. to assess/engage patient in language tasks, then later to monitor toleration of current diet at lunch. In a.m., patient was awake and alert, seated reclined in chair beside bed, watching a disaster film on TV, and seemingly attending and engaged by the movie. Patient did not acknowledge or greet therapist, continued to keep attention to television. Therapist attempted to engage patient in questions/comments related to the Movie, e.g. Oh, who is that actor? Do you know? , Is that [place]? Does [place] normally have multiple tornadoes? However patient gave limited response, although said mmm several times to questions. As therapist was leaving, Lon again made a louder MMM! noise, and when asked if he needed anything before I left, responded no. Patient was again seen at lunch, however when therapist arrived, tray was already put to the side, with evidence that Lon had only a few bites of the soft taco, but had eaten all of the ice cream and drinks on the tray. When asked if he wanted to try any of the other remaining food on the tray, he said no. Lon made some eye contact during this brief visit, but was again, still watching the disaster movie. Summary: Patient evidences some minor improvements in responding/engaging with others today, making occasional eye contact, responding with no to questions and mmm to agree or acknowledge. Patient is eating preferred foods on tray, but avoiding more substantive/nutritional elements. PALLETIZER OPERATOR will continue to follow. Assessment: Advertising Internship Clinican/Clinical Fellow: No Supervisory Statement: I have reviewed and agree with the student/clinical fellow's documentation: N/A Speech Language Pathologist: Malou Jean M.A., CCC-PALLETIZER OPERATOR
[2023-05-14 15:14] VITALS: BP 139/89; PULSE 75; RESP 18; TEMP 36.9; O2SAT 98
[2023-05-14 19:06] VITALS: BP 141/87; PULSE 108; RESP 18; TEMP 36.4; O2SAT 97
[2023-05-14 20:57] LABS: Anion Gap 13 (12-20); Blood Urea Nitrogen 15 mg/dL (9-16); Calcium 9.2 mg/dL (8.4-10.2); Carbon Dioxide 21 mmol/L (22-29); Chloride 107 mmol/L (96-108); Creatinine Clr Calc Pharmacy 187.8; Estimated Glomerular Filt Rate > 60; Glucose Random 100 mg/dL (60-115); Potassium 3.9 mmol/L (3.3-5.1); Sodium 137 mmol/L (135-145)
[2023-05-14] MEDS: OLANZapine 10 MG TABLET PO (21:47)
[2023-05-14] MEDS: Atorvastatin Calcium 40 MG TABLET PO (21:47)
[2023-05-15] VITALS (8 sets, daily range): BP systolic 125–161; BP diastolic 85–104; PULSE 72–96; RESP 16–19; TEMP 36.2–37; O2SAT 94–98
[2023-05-15] MEDS: Heparin Sodium,Porcine 5,000 UNIT/ML VIAL 5000 UNIT SUBCUT ×3 (04:02→20:05)
[2023-05-15 05:29] LABS: Ammonia 35 umol/L (13-55)
[2023-05-15 06:22] LABS: Folate 8.2 ng/mL (> or = 4.0); Vitamin B12 760 pg/mL (200-900)
[2023-05-15] MEDS: Metoprolol Tartrate 12.5 MG HALFTAB PO ×2 (08:15→20:06)
[2023-05-15] MEDS: Sertraline HCL 50 MG TABLET PO (08:15)
[2023-05-15] MEDS: Aspirin 81 MG TAB.CHEW PO (08:15)
[2023-05-15] MEDS: Thiamine HCL 100 MG TABLET PO (08:15)
[2023-05-15] MEDS: Folic Acid 1 MG TABLET PO (08:15)
[2023-05-15] MEDS: Multivitamin TABLET 1 TAB PO (08:15)
[2023-05-15] MEDS: Nystatin Powder 15 GM BOTTLE 1 APPL TOPICAL ×3 (08:24→20:08)
--- NOTE | 2023-05-15 10:59 | P.CNNE_ITS ---
History of Present Illness Data of Consult Service Date: 05/15/23 Primary Care Provider: Unknown Physician HPI Reason for consult: Encephalopathy 28-year-old man with h/o schizophrenia, alcohol use, marijuana use?was admitted on 04/08/2023 after he was noted to be unresponsive by his girlfriend for unclear amount of time. He was intubated for hypoxia and respiratory distress, aspiration and left pneumothorax.??Now he was extubated and on the floor. He has not been responsive or communicative compared to his baseline. There was no evidence of any seizure disorder. Review of Systems Review of Systems: Could not be done with [facility] Past Medical History Medical History Acute renal injury Aspiration pneumonitis Chronic schizophrenia Compartment syndrome of buttock Pneumothorax Pneumothorax, left PTSD (post-traumatic stress disorder) Rhabdomyolysis Schizoaffective disorder Surgical History Surgical History Hx of hand surgery Social History Social History Household Members: Unknown / Unable to assess Household Members Other:: nursing home Housing: Unknown / Unable to assess Housing Other:: nursing home Do you presently have visiting nurse or other home services: No Unable to assess alcohol history related to: Unable to respond and Unknown Alcohol intake: current Alcohol intake frequency: does not drink Patient Tobacco Use Status: Tobacco use Unknown Tobacco use type: Cigar Cigarette Packs Per Day: 0.5 Cigarettes Per Day: 5 Years Smoked: 10 Second Hand Smoke Exposure: Yes Use of substances other than those prescribed or required for medical reasons: Yes Substance Use Type: Marijuana Currently Displaying Signs/Symptoms of Drug Intoxication Withdrawal: No Advance Directives: No service: No Sexual orientation: Straight/Heterosexual Meds Allergies Allergy/AdvReac Type Severity Reaction Status Date / Time Penicillins [PCN] Allergy Unknown UNKNOWN Verified 12/12/21 23:33 Active Medications: Current Medications Acetaminophen (Acetaminophen Oral Liquid 650 Mg/20.3 Ml Solution) 650 mg PO Q6H PRN PRN Reason: Fever Last Admin: 05/08/23 13:09 Dose: 650 mg Aspirin (Aspirin 81 Mg Tab.Chew) 81 mg PO DAILY [facility] Last Admin: 05/15/23 08:15 Dose: 81 mg Atorvastatin Calcium (Atorvastatin Calcium 40 Mg Tablet) 40 mg PO BEDTIME [facility] Last Admin: 05/14/23 21:47 Dose: 40 mg Folic Acid (Folic Acid 1 Mg Tablet) 1 mg PO DAILY [facility] Last Admin: 05/15/23 08:15 Dose: 1 mg Heparin Sodium (Porcine) (Heparin Sodium,Porcine 5,000 Unit/Ml Vial) 5,000 unit SUBCUT Q8H [facility] Last Admin: 05/15/23 04:02 Dose: 5,000 unit Metoprolol Tartrate (Metoprolol Tartrate 12.5 Mg Halftab) 12.5 mg PO BID [facility]; Protocol Last Admin: 05/15/23 08:15 Dose: 12.5 mg Multivitamins/Vitamin C (Multivitamin Tablet) 1 tab PO DAILY [facility] Last Admin: 05/15/23 08:15 Dose: 1 tab Naloxone HCl (Naloxone Hcl 0.4 Mg/Ml Vial) 0.2 mg IVPUSH Q2M PRN PRN Reason: Excessive sedation or RR < 8 Nystatin (Nystatin Powder 15 Gm Bottle) 1 appl TOPICAL TID [facility]; Protocol Last Admin: 05/15/23 08:24 Dose: 1 appl Olanzapine (Olanzapine 10 Mg Tablet) 10 mg PO BEDTIME [facility] Last Admin: 05/14/23 21:47 Dose: 10 mg Sertraline HCl (Sertraline Hcl 50 Mg Tablet) 50 mg PO DAILY [facility] Last Admin: 05/15/23 08:15 Dose: 50 mg Thiamine HCl (Thiamine Hcl 100 Mg Tablet) 100 mg PO DAILY [facility] Last Admin: 05/15/23 08:15 Dose: 100 mg Home Medications Medication Instructions Recorded Confirmed Last Taken Type ketoconazole 2 % topical cream 1 appl topical DAILY 04/08/23 04/08/23 Unknown History olanzapine 10 mg tablet 10 mg PO BEDTIME 04/08/23 04/08/23 Unknown History Physical Exam Vital Signs: Vital Signs: Last Vital Signs Temp 98.6 F 05/15/23 07:26 Pulse 87 05/15/23 07:26 Resp 18 05/15/23 07:26 BP 144/98 H 05/15/23 07:26 Pulse Ox 98 05/15/23 07:26 O2 Del Method Room Air 05/15/23 07:26 O2 Flow Rate 18 04/08/23 09:15 FiO2 30 04/23/23 11:00 BMI result Body Mass Index 22.5 Neuro: Other: Alert and awake looking around made eye contact. Did not spontaneously speak. Told me his last name but otherwise when I ask any other question he kept on mentioning his last name. Followed rare one-step command like when I asked him to squeeze my hand he did. When I asked him to touch my hand with his left hand he did. When asked to show 2 fingers he did not. Eyes were not synchronous but not deviated either. Visual hernandez were difficult to determine. Face was pendulous. He was moving his left arm but did not cooperate with right. Minimal to none movement of feet. Reflexes are trace to absent. Results Labs 05/07/23 06:02 05/14/23 20:32 Labs: BMP 05/14/23 20:32 Sodium 137 Potassium 3.9 Chloride 107 Carbon Dioxide 21 L BUN 15 Creatinine 0.60 Calcium 9.2 D MRI of brain revealed diffuse white matter mild hyper intensity. Microbiology Microbiology Results: Microbiology 04/17/23 04:39 Blood - Venous Blood Culture - Final No growth after 5 days. 04/17/23 04:39 Blood - Venous Blood Culture - Final No growth after 5 days. 04/08/23 09:07 Blood - Venous Blood Culture - Final No growth after 5 days. 04/08/23 09:08 Blood - Venous Blood Culture - Final No growth after 5 days. 04/08/23 Unknown Urine clean catch - Urine lomax top Urine Culture - Final No growth. Assessment and Plan (1) Anoxic encephalopathy: Status: Acute Moderate to severe probably multifactorial encephalopathy from toxic etiology and anoxia. At this time she he is minimally communicating. Comprehension and word output or minimal. There is no evidence of seizure. Recommend long-term rehab placement. Time Spent With Patient Time: Total time managing care of this patient today ____ minutes. Procedures Date of Service Date of Service: 05/15/23
--- NOTE | 2023-05-15 11:30 | HO.PM.IMPN ---
Subjective Subjective Date of Service: 05/15/23 Interval History: follow up Review of Systems makes eye contact today eating little better says few words pt at bedside ,moving arm with Pt ,follow minimum commands No reported overnight event Physical Exam Vital Signs: Vital Signs: Last Vital Signs Temp 98.6 F 05/15/23 07:26 Pulse 87 05/15/23 07:26 Resp 18 05/15/23 07:26 BP 144/98 H 05/15/23 07:26 Pulse Ox 98 05/15/23 07:26 O2 Del Method Room Air 05/15/23 07:26 O2 Flow Rate 18 04/08/23 09:15 FiO2 30 04/23/23 11:00 BMI result Body Mass Index 22.5 Constitutional : Awake, not in distress Neck : Normal inspection, Supple Cardiovascular : RRR, no JVP, no lower extremity edema Respiratory : good bilateral air entry,? no crackles, wheezes or rhonchi Gastrointestinal:? soft, lax, Normal bowel sounds, Non tender Skin : Warm, Dry Neurological : unable to assess Alert & oriented , muscle wasting LEs bilaterally, weak UEs, non-verbal Objective Data Active Medications Acetaminophen (Acetaminophen Oral Liquid 650 Mg/20.3 Ml Solution) 650 mg PO Q6H PRN PRN Reason: Fever Last Admin: 05/08/23 13:09 Dose: 650 mg Documented By: CLEMENCIA Aspirin (Aspirin 81 Mg Tab.Chew) 81 mg PO DAILY [facility] Last Admin: 05/15/23 08:15 Dose: 81 mg Documented By: DIAZ Atorvastatin Calcium (Atorvastatin Calcium 40 Mg Tablet) 40 mg PO BEDTIME [facility] Last Admin: 05/14/23 21:47 Dose: 40 mg Documented By: BRAEDEN Folic Acid (Folic Acid 1 Mg Tablet) 1 mg PO DAILY [facility] Last Admin: 05/15/23 08:15 Dose: 1 mg Documented By: DIAZ Heparin Sodium (Porcine) (Heparin Sodium,Porcine 5,000 Unit/Ml Vial) 5,000 unit SUBCUT Q8H [facility] Last Admin: 05/15/23 04:02 Dose: 5,000 unit Documented By: BRAEDEN Metoprolol Tartrate (Metoprolol Tartrate 12.5 Mg Halftab) 12.5 mg PO BID [facility]; Protocol Last Admin: 05/15/23 08:15 Dose: 12.5 mg Documented By: DIAZ Multivitamins/Vitamin C (Multivitamin Tablet) 1 tab PO DAILY [facility] Last Admin: 05/15/23 08:15 Dose: 1 tab Documented By: DIAZ Naloxone HCl (Naloxone Hcl 0.4 Mg/Ml Vial) 0.2 mg IVPUSH Q2M PRN PRN Reason: Excessive sedation or RR < 8 Nystatin (Nystatin Powder 15 Gm Bottle) 1 appl TOPICAL TID [facility]; Protocol Last Admin: 05/15/23 08:24 Dose: 1 appl Documented By: DIAZ Olanzapine (Olanzapine 10 Mg Tablet) 10 mg PO BEDTIME [facility] Last Admin: 05/14/23 21:47 Dose: 10 mg Documented By: BRAEDEN Sertraline HCl (Sertraline Hcl 50 Mg Tablet) 50 mg PO DAILY [facility] Last Admin: 05/15/23 08:15 Dose: 50 mg Documented By: DIAZ Thiamine HCl (Thiamine Hcl 100 Mg Tablet) 100 mg PO DAILY [facility] Last Admin: 05/15/23 08:15 Dose: 100 mg Documented By: DIAZ Labs 05/07/23 06:02 05/14/23 20:32 Labs: Laboratory Results - last 24 hr 05/14/23 05/15/23 05/15/23 20:32 05:15 05:15 Anion Gap 13 Estim Creat Clear Calc 187.8 Estimated GFR > 60 Random Glucose 100 Calcium 9.2 D Ammonia 35 Vitamin B12 760 Folate 8.2 Assessment and Plan (1) Physical deconditioning: Status: Acute (2) Anoxic encephalopathy: Status: Acute (3) Swallowing problem: Status: Acute Plan 28-year-old man with underlying history of schizophrenia, alcohol use, marijuana use?admitted on 04/08/2023 after he was noted to be unresponsive by his girlfriend for unclear amount of time. Patient was transported by EMS to emergency room where he was intubated for hypoxia and respiratory distress.? On further evaluation patient with imaging finding of aspiration and left pneumothorax.? Initial left mid axillary chest tube placed in emergency room with persistence of pneumothorax and questionable subdiaphragmatic placement.? Chest tube removed and replaced with left midclavicular in 3rd intercostal space with air evacuation and improvement in pneumothorax.? Patient also noted to have acute kidney injury and rhabdomyolysis and started on IV fluid hydration. He underwent right gluteal fasciotomy with significant improvement in his CPK and renal function.? However, remains persistently encephalopathic.? MRI on 04/10/2023 with bilateral cerebral anoxic related encephalopathy. ? Evaluated by neurology with prognosis consider to be guarded, but not catastrophic. Overall with slow neurologic improvement, With significant improvement on 04/23/2023. extubated 04/23/2023 and downgraded to the medical floor on 04/25. Limited improvement in responsiveness # PHysical deconditioining Seems progressively worsening To do PT as tolerated Plan for placement, Court date 05/26 # Swallowing problem To do FOOD GENERAL MANAGER eval Modified diet #Anoxic brain injury secondary to aspiration pneumonia related to polysubstance overdose with anoxic encephalopathy Some improvement. Following simple commands. Slow to speak in one word or very short phrases continue PT/OT -d/w may need more often. OOB to chair Exhibiting some selective mutism- ?r/t schizophrenia as well as anoxia brain injury. Has Blane's order as well. Seen by psych- restarted on sertraline 25mg and olanzapine increased to 5mg bedtime Guardian and [facility] nursing concerned about minimal progress. Would like another MRI. Neurology consulted to evaluate if this would be beneficial and for recommendations on placement (guardian/[facility] looking for brain focused rehab setting) seen by neuro who does not recommend another MRI at this time. His recovery can take 3-6 months or more and brain rehab facility is recommended # Right foot pain xray negative venous doppler us neg uric acid normal continue PT # acute respiratory failure with hypoxia secondary to aspiration pneumonitis, pneumothorax resolved s/p treatment with unasyn requiring intubation, extubated 04/23 on room air # Gluteal compartment syndrome s/p right gluteal fasciotomy 04/08 sutures removed no further surgical intervention required at this time # NSTEMI s/p heparin drip echo with preserved LVEF-basal inferior akinesis, regional wall motion abnormalities seen by cardiology - will need outpatient ischemic workup medical management with asa, statin, BB # acute pneumothorax resolved s/p left chest tube placement and subsequent removal # acute renal failure resolved with IV fluids # normocytic anemia H/H stable # rhabdomyolysis resolved # schizophrenia on zyprexa at baseline, resumed on lower dose 04/29 seems more depress. Eval by psych who resumed sertraline and increased olanzepine to 5mg bedtime psych follow up noted -adjusted zoloft nad olanzapine. DVT prophylaxis with Heparin DISPO plan for extensive rehab- brain rehab facility recommended Has [facility] guardian, awaiting amendment to guardianship for right to admit, court date May 26 Requires continued hospitalization for safe disposition Time Spent With Patient Time: Total time managing care of this patient today ____ minutes. Quality Stroke Does the patient have a stroke diagnosis?: No VTE Prior VTE?: No VTE Risk Level:: Medical - moderate - high VTE Device Contraindication: N/A - Device Ordered VTE Drug Contraindication: N/A - Med Ordered
--- NOTE | 2023-05-15 13:01 | MHC.CLN ---
F/U DIET=REGULAR. ENSURE TID PROVIDES ADDITIONAL 1050 KCALS, 60 G PROTEIN. STAGE II TO COCCYX HEALED. INTAKE X 2 DAYS=0-50% WITH MOST MEALS 25%. CONTINUE CURRENT DIET AND SUPPLEMENT. ENCOURAGE INTAKE ABLE.
--- NOTE | 2023-05-15 13:56 | MHC.SL.SWA ---
Risk of Aspiration Due to: Hx of Recent Extubation Dysphasia Diet Status: Recommend continue unrestricted diet to promote optimal PO intake. He remains a 1:1 feed and may benefit from preferred items to motivate intake. Please alternate bites and sips to improve oral clearance and continue checks for pocketing of solids. MILLER HEAD ASSISTANT WET PROCESS to continue to follow to monitor diet toleration, receptive/expressive language & functional communication. Liquid Consistency and Strategies for Safe Swallow: Liquid Intake Recommendation: Thin Liquid Intake Strategies: Small Sips Solid Food Consistency: Dietary Recommendations: Regular Oral Medication Intake: Crushed with Puree Please contact the pharmacy regarding appropriate crushable or liquid drug formulations that are available whenever modified delivery is recommended. Compensatory Strategies and Precautions to be Taken for Safe Swallow: Sitting Upright (90 deg) Double Swallow Small Bites and Sips Alternate Liquids/Solids Rate of Ingestion Change Avoid Specific Foods Supervision While Eating and Drinking for Safe Swallow: Total Assistance (1:1) Swallowing Recommended Treatments: Compens. Strategy Educat. Recommendation for Speech: Inpatient Speech Therapy Poultry Husbandry Worker Clinican/Clinical Fellow: No Supervisory Statement: I have reviewed and agree with the student/clinical fellow's documentation: N/A Speech Language Pathologist: Latha Conde M.A., [facility] HEAD ASSISTANT WET PROCESS
[2023-05-15] MEDS: OLANZapine 10 MG TABLET PO (20:06)
[2023-05-15] MEDS: Atorvastatin Calcium 40 MG TABLET PO (20:06)
[2023-05-16 03:36] VITALS: BP 123/82; PULSE 68; RESP 16; TEMP 36.2; O2SAT 96
[2023-05-16 06:00] VITALS: BMI 22.8
[2023-05-16] MEDS: Heparin Sodium,Porcine 5,000 UNIT/ML VIAL 5000 UNIT SUBCUT ×3 (06:17→21:40)
[2023-05-16 07:46] VITALS: BP 115/73; PULSE 68; RESP 16; TEMP 36.4; O2SAT 97
[2023-05-16] MEDS: Aspirin 81 MG TAB.CHEW PO (09:17)
[2023-05-16] MEDS: Metoprolol Tartrate 12.5 MG HALFTAB PO ×2 (09:18→21:39)
[2023-05-16] MEDS: Nystatin Powder 15 GM BOTTLE 1 APPL TOPICAL ×3 (09:18→21:46)
[2023-05-16] MEDS: Multivitamin TABLET 1 TAB PO (09:18)
[2023-05-16] MEDS: Thiamine HCL 100 MG TABLET PO (09:18)
[2023-05-16] MEDS: Folic Acid 1 MG TABLET PO (09:18)
[2023-05-16] MEDS: Sertraline HCL 50 MG TABLET PO (09:18)
[2023-05-16 11:24] VITALS: BP 122/75; PULSE 73; RESP 16; TEMP 36; O2SAT 96
--- NOTE | 2023-05-16 14:02 | HO.PM.IMPN ---
Subjective Subjective Date of Service: 05/16/23 Interval History: responds with simple yes no answers. Still poor intake Review of Systems unable to obtain Physical Exam Vital Signs: Vital Signs: Last Vital Signs Temp 96.8 F 05/16/23 11:24 Pulse 73 05/16/23 11:24 Resp 16 05/16/23 11:24 BP 122/75 05/16/23 11:24 Pulse Ox 96 05/16/23 11:24 O2 Del Method Room Air 05/16/23 11:24 O2 Flow Rate 18 04/08/23 09:15 FiO2 30 04/23/23 11:00 BMI result Body Mass Index 22.8 Const: Other: no acute distress. Eyes track with verbal cues Resp: Other: clear to auscultation bilaterally no rales rhonchi o Cardio: Other: no S4; positive S1-S2; no S3 murmurs rubs or gallops GI: Other: soft nontender nondistended normoactive bowel sounds Neuro: Other: unable to obtain secondary to inability to follow cues Extrem: Other: no edema. Muscle wasting throughout Objective Data Active Medications Acetaminophen (Acetaminophen Oral Liquid 650 Mg/20.3 Ml Solution) 650 mg PO Q6H PRN PRN Reason: Fever Last Admin: 05/08/23 13:09 Dose: 650 mg Documented By: CLEMENCIA Aspirin (Aspirin 81 Mg Tab.Chew) 81 mg PO DAILY [facility] Last Admin: 05/16/23 09:17 Dose: 81 mg Documented By: BERTA Atorvastatin Calcium (Atorvastatin Calcium 40 Mg Tablet) 40 mg PO BEDTIME [facility] Last Admin: 05/15/23 20:06 Dose: 40 mg Documented By: JANIS Folic Acid (Folic Acid 1 Mg Tablet) 1 mg PO DAILY [facility] Last Admin: 05/16/23 09:18 Dose: 1 mg Documented By: DANETTEEMA Heparin Sodium (Porcine) (Heparin Sodium,Porcine 5,000 Unit/Ml Vial) 5,000 unit SUBCUT Q8H [facility] Last Admin: 05/16/23 12:15 Dose: 5,000 unit Documented By: COTEMA Metoprolol Tartrate (Metoprolol Tartrate 12.5 Mg Halftab) 12.5 mg PO BID [facility]; Protocol Last Admin: 05/16/23 09:18 Dose: 12.5 mg Documented By: DANETTEEMA Multivitamins/Vitamin C (Multivitamin Tablet) 1 tab PO DAILY [facility] Last Admin: 05/16/23 09:18 Dose: 1 tab Documented By: BERTA Naloxone HCl (Naloxone Hcl 0.4 Mg/Ml Vial) 0.2 mg IVPUSH Q2M PRN PRN Reason: Excessive sedation or RR < 8 Nystatin (Nystatin Powder 15 Gm Bottle) 1 appl TOPICAL TID [facility]; Protocol Last Admin: 05/16/23 09:18 Dose: 1 appl Documented By: BERTA Olanzapine (Olanzapine 10 Mg Tablet) 10 mg PO BEDTIME [facility] Last Admin: 05/15/23 20:06 Dose: 10 mg Documented By: JANIS Sertraline HCl (Sertraline Hcl 50 Mg Tablet) 50 mg PO DAILY [facility] Last Admin: 05/16/23 09:18 Dose: 50 mg Documented By: BERTA Thiamine HCl (Thiamine Hcl 100 Mg Tablet) 100 mg PO DAILY [facility] Last Admin: 05/16/23 09:18 Dose: 100 mg Documented By: BERTA Labs 05/07/23 06:02 05/14/23 20:32 Assessment and Plan (1) Anoxic encephalopathy: Status: Acute (2) Schizophrenia: Status: Acute (3) Myocardial infarction: Status: Acute (4) Acute renal injury: Status: Acute Plan 28-year-old man with underlying history of schizophrenia, alcohol use, marijuana use?admitted on 04/08/2023 after he was noted to be unresponsive by his girlfriend for unclear amount of time. Patient was transported by EMS to emergency room where he was intubated for hypoxia and respiratory distress.? On further evaluation patient with imaging finding of aspiration and left pneumothorax.? Initial left mid axillary chest tube placed in emergency room with persistence of pneumothorax and questionable subdiaphragmatic placement.? Chest tube removed and replaced with left midclavicular in 3rd intercostal space with air evacuation and improvement in pneumothorax.? Patient also noted to have acute kidney injury and rhabdomyolysis and started on IV fluid hydration. He underwent right gluteal fasciotomy with significant improvement in his CPK and renal function.? However, remains persistently encephalopathic.? MRI on 04/10/2023 with bilateral cerebral anoxic related encephalopathy. ? Evaluated by neurology with prognosis consider to be guarded, but not catastrophic. Overall with slow neurologic improvement, With significant improvement on 04/23/2023. extubated 04/23/2023 and downgraded to the medical floor on 04/25. Limited improvement in responsiveness. 1.Anoxic brain injury secondary to aspiration pneumonia related to polysubstance overdose with anoxic encephalopathy - some interaction with nursing staff; appears to be new baseline -continue PT/OT - when appropriate will benefit from more aggressive rehab OOB to chair 2.Schizophrenia in backdrop SHERI -sertraline 25mg/olanzapine 5mg HS -psych to follow 3.NSTEMI -s/p heparin drip.... medical management at this time - outpatient workup when appropriate 4.Acute renal failure -resolved -periodic renals/divalents Heparin Full Code DISPO plan for extensive rehab- brain rehab facility recommended Has [facility] guardian, awaiting amendment to guardianship for right to admit, court date May 26 Requires continued hospitalization for safe disposition Time Spent With Patient Time: Total time managing care of this patient today ____ minutes. Quality Stroke Does the patient have a stroke diagnosis?: No VTE Prior VTE?: No VTE Risk Level:: Medical - moderate - high VTE Device Contraindication: N/A - Device Ordered VTE Drug Contraindication: N/A - Med Ordered
[2023-05-16 15:27] VITALS: BP 124/80; PULSE 71; RESP 18; TEMP 36.4; O2SAT 97
[2023-05-16 19:06] VITALS: BP 122/77; PULSE 73; RESP 16; TEMP 36.1; O2SAT 97
[2023-05-16] MEDS: Atorvastatin Calcium 40 MG TABLET PO (21:39)
[2023-05-16] MEDS: OLANZapine 10 MG TABLET PO (21:46)
[2023-05-16 23:55] VITALS: BP 108/69; PULSE 54; RESP 14; TEMP 36.2; O2SAT 97
[2023-05-17] VITALS (7 sets, daily range): BP systolic 112–122; BP diastolic 61–82; PULSE 56–73; RESP 14–20; TEMP 36–37; O2SAT 95–98
[2023-05-17] MEDS: Heparin Sodium,Porcine 5,000 UNIT/ML VIAL 5000 UNIT SUBCUT ×3 (04:18→20:23)
--- NOTE | 2023-05-17 04:20 | PC.NURSE ---
[id number]
[2023-05-17] MEDS: Metoprolol Tartrate 12.5 MG HALFTAB PO ×2 (08:14→20:23)
[2023-05-17] MEDS: Aspirin 81 MG TAB.CHEW PO (08:15)
[2023-05-17] MEDS: Multivitamin TABLET 1 TAB PO (08:15)
[2023-05-17] MEDS: Nystatin Powder 15 GM BOTTLE 1 APPL TOPICAL ×3 (08:15→20:30)
[2023-05-17] MEDS: Folic Acid 1 MG TABLET PO (08:15)
[2023-05-17] MEDS: Thiamine HCL 100 MG TABLET PO (08:15)
[2023-05-17] MEDS: Sertraline HCL 50 MG TABLET PO (08:15)
--- NOTE | 2023-05-17 10:56 | HO.PM.IMPN ---
Subjective Subjective Date of Service: 05/17/23 Interval History: More alert today. Interactive with staff Review of Systems unable to obtain Physical Exam Vital Signs: Vital Signs: Last Vital Signs Temp 97.9 F 05/17/23 07:57 Pulse 56 05/17/23 07:57 Resp 18 05/17/23 07:57 BP 112/72 05/17/23 07:57 Pulse Ox 96 05/17/23 07:57 O2 Del Method Room Air 05/17/23 07:57 O2 Flow Rate 18 04/08/23 09:15 FiO2 30 04/23/23 11:00 BMI result Body Mass Index 22.8 Const: Other: no acute distress. Eyes track with verbal cues Resp: Other: clear to auscultation bilaterally no rales rhonchi o Cardio: Other: no S4; positive S1-S2; no S3 murmurs rubs or gallops GI: Other: soft nontender nondistended normoactive bowel sounds Neuro: Other: unable to obtain secondary to inability to follow cues Extrem: Other: no edema. Muscle wasting throughout Objective Data Active Medications Acetaminophen (Acetaminophen Oral Liquid 650 Mg/20.3 Ml Solution) 650 mg PO Q6H PRN PRN Reason: Fever Last Admin: 05/08/23 13:09 Dose: 650 mg Documented By: CLEMENCIA Aspirin (Aspirin 81 Mg Tab.Chew) 81 mg PO DAILY [facility] Last Admin: 05/17/23 08:15 Dose: 81 mg Documented By: BERTA Atorvastatin Calcium (Atorvastatin Calcium 40 Mg Tablet) 40 mg PO BEDTIME [facility] Last Admin: 05/16/23 21:39 Dose: 40 mg Documented By: DAVID Folic Acid (Folic Acid 1 Mg Tablet) 1 mg PO DAILY [facility] Last Admin: 05/17/23 08:15 Dose: 1 mg Documented By: BERTA Heparin Sodium (Porcine) (Heparin Sodium,Porcine 5,000 Unit/Ml Vial) 5,000 unit SUBCUT Q8H [facility] Last Admin: 05/17/23 04:18 Dose: 5,000 unit Documented By: APOLINAR Metoprolol Tartrate (Metoprolol Tartrate 12.5 Mg Halftab) 12.5 mg PO BID [facility]; Protocol Last Admin: 05/17/23 08:14 Dose: 12.5 mg Documented By: BERTA Multivitamins/Vitamin C (Multivitamin Tablet) 1 tab PO DAILY [facility] Last Admin: 05/17/23 08:15 Dose: 1 tab Documented By: BERTA Naloxone HCl (Naloxone Hcl 0.4 Mg/Ml Vial) 0.2 mg IVPUSH Q2M PRN PRN Reason: Excessive sedation or RR < 8 Nystatin (Nystatin Powder 15 Gm Bottle) 1 appl TOPICAL TID [facility]; Protocol Last Admin: 05/17/23 08:15 Dose: 1 appl Documented By: BERTA Olanzapine (Olanzapine 10 Mg Tablet) 10 mg PO BEDTIME [facility] Last Admin: 05/16/23 21:46 Dose: 10 mg Documented By: DAVID Sertraline HCl (Sertraline Hcl 50 Mg Tablet) 50 mg PO DAILY [facility] Last Admin: 05/17/23 08:15 Dose: 50 mg Documented By: BERTA Thiamine HCl (Thiamine Hcl 100 Mg Tablet) 100 mg PO DAILY [facility] Last Admin: 05/17/23 08:15 Dose: 100 mg Documented By: BERTA Labs 05/07/23 06:02 05/14/23 20:32 Assessment and Plan (1) Anoxic encephalopathy: Status: Acute (2) Schizophrenia: Status: Acute (3) Myocardial infarction: Status: Acute (4) Acute renal injury: Status: Acute Plan 28-year-old man with underlying history of schizophrenia, alcohol use, marijuana use?admitted on 04/08/2023 after he was noted to be unresponsive by his girlfriend for unclear amount of time. Patient was transported by EMS to emergency room where he was intubated for hypoxia and respiratory distress.? On further evaluation patient with imaging finding of aspiration and left pneumothorax.? Initial left mid axillary chest tube placed in emergency room with persistence of pneumothorax and questionable subdiaphragmatic placement.? Chest tube removed and replaced with left midclavicular in 3rd intercostal space with air evacuation and improvement in pneumothorax.? Patient also noted to have acute kidney injury and rhabdomyolysis and started on IV fluid hydration. He underwent right gluteal fasciotomy with significant improvement in his CPK and renal function.? However, remains persistently encephalopathic.? MRI on 04/10/2023 with bilateral cerebral anoxic related encephalopathy. ? Evaluated by neurology with prognosis consider to be guarded, but not catastrophic. Overall with slow neurologic improvement, With significant improvement on 04/23/2023. extubated 04/23/2023 and downgraded to the medical floor on 04/25. Limited improvement in responsiveness. 1.Anoxic brain injury secondary to aspiration pneumonia related to polysubstance overdose with anoxic encephalopathy - some interaction with nursing staff; appears to be new baseline -continue PT/OT - when appropriate will benefit from more aggressive rehab 2.Schizophrenia in backdrop SHERI -sertraline 25mg/olanzapine 5mg HS -psych to follow 3.NSTEMI -s/p heparin drip.... medical management at this time - outpatient workup when appropriate 4.Acute renal failure -resolved -periodic renals/divalents periodically Heparin Full Code DISPO plan for extensive rehab- brain rehab facility recommended Has [facility] guardian, awaiting amendment to guardianship for right to admit, court date May 26 Requires continued hospitalization for safe disposition Time Spent With Patient Time: Total time managing care of this patient today ____ minutes. Quality Stroke Does the patient have a stroke diagnosis?: No VTE Prior VTE?: No VTE Risk Level:: Medical - moderate - high VTE Device Contraindication: N/A - Device Ordered VTE Drug Contraindication: N/A - Med Ordered
[2023-05-17] MEDS: Atorvastatin Calcium 40 MG TABLET PO (20:23)
[2023-05-17] MEDS: OLANZapine 10 MG TABLET PO (20:23)
[2023-05-18 03:14] VITALS: BP 113/67; PULSE 50; RESP 18; TEMP 37.3; O2SAT 98
[2023-05-18] MEDS: Heparin Sodium,Porcine 5,000 UNIT/ML VIAL 5000 UNIT SUBCUT ×3 (04:06→19:36)
[2023-05-18 06:00] VITALS: BMI 23.2
[2023-05-18 07:31] VITALS: BP 121/78; PULSE 72; RESP 16; TEMP 36.4; O2SAT 98
--- NOTE | 2023-05-18 09:05 | MHC.CM.PN ---
PT AWAITING PLACEMENT COURT DATE PENDING FOR RIGHT TO ADMIT TO BE ADDED TO [facility] REFERRAL UPDATED AND EXPANDED
[2023-05-18] MEDS: Nystatin Powder 15 GM BOTTLE 1 APPL TOPICAL ×3 (09:23→19:38)
[2023-05-18] MEDS: Metoprolol Tartrate 12.5 MG HALFTAB PO ×2 (09:23→19:36)
[2023-05-18] MEDS: Aspirin 81 MG TAB.CHEW PO (09:23)
[2023-05-18] MEDS: Multivitamin TABLET 1 TAB PO (09:23)
[2023-05-18] MEDS: Folic Acid 1 MG TABLET PO (09:23)
[2023-05-18] MEDS: Thiamine HCL 100 MG TABLET PO (09:23)
[2023-05-18] MEDS: Sertraline HCL 50 MG TABLET PO (09:23)
--- NOTE | 2023-05-18 11:04 | HO.PM.IMPN ---
Subjective Subjective Date of Service: 05/18/23 Interval History: basic interaction with staff. Continues to improve Review of Systems unable to obtain Physical Exam Vital Signs: Vital Signs: Last Vital Signs Temp 97.6 F 05/18/23 07:31 Pulse 72 05/18/23 07:31 Resp 16 05/18/23 07:31 BP 121/78 05/18/23 07:31 Pulse Ox 98 05/18/23 07:31 O2 Del Method Room Air 05/18/23 07:31 O2 Flow Rate 98 05/17/23 20:00 FiO2 30 04/23/23 11:00 BMI result Body Mass Index 23.2 Const: Other: no acute distress. Eyes track with verbal cues Resp: Other: clear to auscultation bilaterally no rales rhonchi o Cardio: Other: no S4; positive S1-S2; no S3 murmurs rubs or gallops GI: Other: soft nontender nondistended normoactive bowel sounds Neuro: Other: unable to obtain secondary to inability to follow cues Extrem: Other: no edema. Muscle wasting throughout Objective Data Active Medications Acetaminophen (Acetaminophen Oral Liquid 650 Mg/20.3 Ml Solution) 650 mg PO Q6H PRN PRN Reason: Fever Last Admin: 05/08/23 13:09 Dose: 650 mg Documented By: CLEMENCIA Aspirin (Aspirin 81 Mg Tab.Chew) 81 mg PO DAILY [facility] Last Admin: 05/18/23 09:23 Dose: 81 mg Documented By: ZORAN Atorvastatin Calcium (Atorvastatin Calcium 40 Mg Tablet) 40 mg PO BEDTIME [facility] Last Admin: 05/17/23 20:23 Dose: 40 mg Documented By: BRAEDEN Folic Acid (Folic Acid 1 Mg Tablet) 1 mg PO DAILY [facility] Last Admin: 05/18/23 09:23 Dose: 1 mg Documented By: ZORAN Heparin Sodium (Porcine) (Heparin Sodium,Porcine 5,000 Unit/Ml Vial) 5,000 unit SUBCUT Q8H [facility] Last Admin: 05/18/23 04:06 Dose: 5,000 unit Documented By: BRAEDEN Metoprolol Tartrate (Metoprolol Tartrate 12.5 Mg Halftab) 12.5 mg PO BID [facility]; Protocol Last Admin: 05/18/23 09:23 Dose: 12.5 mg Documented By: ZORAN Multivitamins/Vitamin C (Multivitamin Tablet) 1 tab PO DAILY [facility] Last Admin: 05/18/23 09:23 Dose: 1 tab Documented By: ZORAN Naloxone HCl (Naloxone Hcl 0.4 Mg/Ml Vial) 0.2 mg IVPUSH Q2M PRN PRN Reason: Excessive sedation or RR < 8 Nystatin (Nystatin Powder 15 Gm Bottle) 1 appl TOPICAL TID [facility]; Protocol Last Admin: 05/18/23 09:23 Dose: 1 appl Documented By: ZORAN Olanzapine (Olanzapine 10 Mg Tablet) 10 mg PO BEDTIME [facility] Last Admin: 05/17/23 20:23 Dose: 10 mg Documented By: BRAEDEN Sertraline HCl (Sertraline Hcl 50 Mg Tablet) 50 mg PO DAILY [facility] Last Admin: 05/18/23 09:23 Dose: 50 mg Documented By: ZORAN Thiamine HCl (Thiamine Hcl 100 Mg Tablet) 100 mg PO DAILY [facility] Last Admin: 05/18/23 09:23 Dose: 100 mg Documented By: ZORAN Labs 05/07/23 06:02 05/14/23 20:32 Assessment and Plan (1) Anoxic encephalopathy: Status: Acute (2) Schizophrenia: Status: Acute (3) Myocardial infarction: Status: Acute (4) Acute renal injury: Status: Acute Plan 28-year-old man with underlying history of schizophrenia, alcohol use, marijuana use?admitted on 04/08/2023 after he was noted to be unresponsive by his girlfriend for unclear amount of time. Patient was transported by EMS to emergency room where he was intubated for hypoxia and respiratory distress.? On further evaluation patient with imaging finding of aspiration and left pneumothorax.? Initial left mid axillary chest tube placed in emergency room with persistence of pneumothorax and questionable subdiaphragmatic placement.? Chest tube removed and replaced with left midclavicular in 3rd intercostal space with air evacuation and improvement in pneumothorax.? Patient also noted to have acute kidney injury and rhabdomyolysis and started on IV fluid hydration. He underwent right gluteal fasciotomy with significant improvement in his CPK and renal function.? However, remains persistently encephalopathic.? MRI on 04/10/2023 with bilateral cerebral anoxic related encephalopathy. ? Evaluated by neurology with prognosis consider to be guarded, but not catastrophic. Overall with slow neurologic improvement, With significant improvement on 04/23/2023. extubated 04/23/2023 and downgraded to the medical floor on 04/25. Limited improvement in responsiveness. 1.Anoxic brain injury secondary to aspiration pneumonia related to polysubstance overdose with anoxic encephalopathy - some interaction with nursing staff; appears to be new baseline...continues to improve -continue PT/OT - when appropriate will benefit from more aggressive rehab 2.Schizophrenia in backdrop SHERI -sertraline 50mg/olanzapine 10mg HS -psych to follow 3.NSTEMI -s/p heparin drip.... medical management at this time - outpatient workup when appropriate 4.Acute renal failure -resolved -periodic renals/divalents periodically Heparin Full Code DISPO plan for extensive rehab- brain rehab facility recommended Has [facility] guardian, awaiting amendment to guardianship for right to admit, court date May 26 Requires continued hospitalization for safe disposition Time Spent With Patient Time: Total time managing care of this patient today ____ minutes. Quality Stroke Does the patient have a stroke diagnosis?: No VTE Prior VTE?: No VTE Risk Level:: Medical - moderate - high VTE Device Contraindication: N/A - Device Ordered VTE Drug Contraindication: N/A - Med Ordered
--- NOTE | 2023-05-18 11:05 | MHC.CLN ---
F/U DIET=REGULAR. ENSURE TID PROVIDES ADDITIONAL 1050 KCALS, 60 G PROTEIN. STAGE II TO COCCYX HEALED. INTAKE VARIABLE, 0-75%. 1:1 TOTAL ASSIST WITH FEEDING. CONTINUE CURRENT DIET AND SUPPLEMENT. ENCOURAGE INTAKE ABLE. RD TO FOLLOW WEEKLY.
--- NOTE | 2023-05-18 13:47 | MHC.SL.SWA ---
Speech Pathologist Impression: Risk of aspiration Risk of Aspiration Due to: Hx of Recent Extubation Dysphasia Diet Status: Recommend continue unrestricted diet to promote optimal PO intake. He remains a 1:1 feed and may benefit from preferred items to motivate intake. Please alternate bites and sips to improve oral clearance and continue checks for pocketing of solids. STOCK CLERK to continue to follow to monitor diet toleration, receptive/expressive language & functional communication. Liquid Consistency and Strategies for Safe Swallow: Liquid Intake Recommendation: Thin Liquid Intake Strategies: Small Sips Solid Food Consistency: Dietary Recommendations: Regular Oral Medication Intake: Crushed with Puree Please contact the pharmacy regarding appropriate crushable or liquid drug formulations that are available whenever modified delivery is recommended. Compensatory Strategies and Precautions to be Taken for Safe Swallow: Sitting Upright (90 deg) Double Swallow Small Bites and Sips Alternate Liquids/Solids Rate of Ingestion Change Avoid Specific Foods Supervision While Eating and Drinking for Safe Swallow: Total Assistance (1:1) Swallowing Recommended Treatments: Compens. Strategy Educat. Recommendation for Speech: Inpatient Speech Therapy Clerical Investigator Clinican/Clinical Fellow: No Supervisory Statement: I have reviewed and agree with the student/clinical fellow's documentation: N/A Speech Language Pathologist: Latha Conde M.A., [facility]-STOCK CLERK
[2023-05-18 15:02] VITALS: BP 122/78; PULSE 80; RESP 18; TEMP 36.3; O2SAT 98
[2023-05-18] MEDS: Atorvastatin Calcium 40 MG TABLET PO (19:36)
[2023-05-18] MEDS: OLANZapine 10 MG TABLET PO (19:36)
[2023-05-18 20:00] VITALS: BP 139/74; PULSE 91; RESP 19; TEMP 36.4; O2SAT 97
[2023-05-19 03:48] VITALS: BP 119/73; PULSE 66; RESP 18; TEMP 36.1; O2SAT 95
[2023-05-19] MEDS: Heparin Sodium,Porcine 5,000 UNIT/ML VIAL 5000 UNIT SUBCUT ×3 (05:44→19:10)
[2023-05-19 07:22] VITALS: BP 138/72; PULSE 67; RESP 18; TEMP 36.6; O2SAT 97
[2023-05-19] MEDS: Thiamine HCL 100 MG TABLET PO (08:24)
[2023-05-19] MEDS: Nystatin Powder 15 GM BOTTLE 1 APPL TOPICAL ×3 (08:24→20:41)
[2023-05-19] MEDS: Sertraline HCL 50 MG TABLET PO (08:24)
[2023-05-19] MEDS: Multivitamin TABLET 1 TAB PO (08:24)
[2023-05-19] MEDS: Aspirin 81 MG TAB.CHEW PO (08:24)
[2023-05-19] MEDS: Metoprolol Tartrate 12.5 MG HALFTAB PO ×2 (08:24→20:40)
[2023-05-19] MEDS: Folic Acid 1 MG TABLET PO (08:24)
--- NOTE | 2023-05-19 09:26 | HO.PM.IMPN ---
Subjective Subjective Date of Service: 05/19/23 Interval History: Answering questions in 1 or 2 words appropriately, offers no acute complaints tolerating diet, no acute events overnight. Review of Systems Unable to obtain. Physical Exam Vital Signs: Vital Signs: Last Vital Signs Temp 98 F 05/19/23 07:22 Pulse 67 05/19/23 07:22 Resp 18 05/19/23 07:22 BP 138/72 05/19/23 07:22 Pulse Ox 97 05/19/23 07:22 O2 Del Method Room Air 05/19/23 07:22 O2 Flow Rate 98 05/17/23 20:00 FiO2 30 04/23/23 11:00 BMI result Body Mass Index 23.2 Const: Other: Constitutional : A wake, alert restin g comfortably Anic teric sclera Neck : Normal inspectio n, Supple Cardiova scular : RRR, no J VD Respiratory : Clear to auscultat ion,? no crackles, wheezes or rhonch i Gastrointestinal :? soft, Normal kristen wel sounds, Non te nder Skin : Warm, Dry Extremities no edema Neurologica l : Face symmetri uriel, speech clear , muscle wasting L Es bilaterally. Objective Data Active Medications Acetaminophen (Acetaminophen Oral Liquid 650 Mg/20.3 Ml Solution) 650 mg PO Q6H PRN PRN Reason: Fever Last Admin: 05/08/23 13:09 Dose: 650 mg Documented By: CLEMENCIA Aspirin (Aspirin 81 Mg Tab.Chew) 81 mg PO DAILY [facility] Last Admin: 05/19/23 08:24 Dose: 81 mg Documented By: KATHRINE Atorvastatin Calcium (Atorvastatin Calcium 40 Mg Tablet) 40 mg PO BEDTIME [facility] Last Admin: 05/18/23 19:36 Dose: 40 mg Documented By: JANIS Folic Acid (Folic Acid 1 Mg Tablet) 1 mg PO DAILY [facility] Last Admin: 05/19/23 08:24 Dose: 1 mg Documented By: KATHRINE Heparin Sodium (Porcine) (Heparin Sodium,Porcine 5,000 Unit/Ml Vial) 5,000 unit SUBCUT Q8H [facility] Last Admin: 05/19/23 05:44 Dose: 5,000 unit Documented By: JANIS Metoprolol Tartrate (Metoprolol Tartrate 12.5 Mg Halftab) 12.5 mg PO BID [facility]; Protocol Last Admin: 05/19/23 08:24 Dose: 12.5 mg Documented By: KATHRINE Multivitamins/Vitamin C (Multivitamin Tablet) 1 tab PO DAILY [facility] Last Admin: 05/19/23 08:24 Dose: 1 tab Documented By: KATHRINE Naloxone HCl (Naloxone Hcl 0.4 Mg/Ml Vial) 0.2 mg IVPUSH Q2M PRN PRN Reason: Excessive sedation or RR < 8 Nystatin (Nystatin Powder 15 Gm Bottle) 1 appl TOPICAL TID [facility]; Protocol Last Admin: 05/19/23 08:24 Dose: 1 appl Documented By: KATHRINE Olanzapine (Olanzapine 10 Mg Tablet) 10 mg PO BEDTIME [facility] Last Admin: 05/18/23 19:36 Dose: 10 mg Documented By: JANIS Sertraline HCl (Sertraline Hcl 50 Mg Tablet) 50 mg PO DAILY [facility] Last Admin: 05/19/23 08:24 Dose: 50 mg Documented By: KATHRINE Thiamine HCl (Thiamine Hcl 100 Mg Tablet) 100 mg PO DAILY [facility] Last Admin: 05/19/23 08:24 Dose: 100 mg Documented By: KATHRINE Labs 05/07/23 06:02 05/14/23 20:32 Assessment and Plan (1) Anoxic encephalopathy: Status: Acute (2) Schizophrenia: Status: Acute (3) Myocardial infarction: Status: Acute (4) Acute renal injury: Status: Acute Plan 28-year-old man with underlying history of schizophrenia, alcohol use, marijuana use?admitted on 04/08/2023 after he was noted to be unresponsive by his girlfriend for unclear amount of time. Patient was transported by EMS to emergency room where he was intubated for hypoxia and respiratory distress.? On further evaluation patient with imaging finding of aspiration and left pneumothorax.? Initial left mid axillary chest tube placed in emergency room with persistence of pneumothorax and questionable subdiaphragmatic placement.? Chest tube removed and replaced with left midclavicular in 3rd intercostal space with air evacuation and improvement in pneumothorax.? Patient also noted to have acute kidney injury and rhabdomyolysis and started on IV fluid hydration. He underwent right gluteal fasciotomy with significant improvement in his CPK and renal function.? However, remains persistently encephalopathic.? MRI on 04/10/2023 with bilateral cerebral anoxic related encephalopathy. ? Evaluated by neurology with prognosis consider to be guarded, but not catastrophic. Overall with slow neurologic improvement, With significant improvement on 04/23/2023. extubated 04/23/2023 and downgraded to the medical floor on 04/25. Limited improvement in responsiveness. 1.Anoxic brain injury secondary to aspiration pneumonia related to polysubstance overdose with anoxic encephalopathy -answering question yes and no, some interaction with nursing staff,continues to improve -continue PT/OT - when appropriate will benefit from more aggressive rehab 2.Schizophrenia in backdrop SHERI -sertraline 50mg/olanzapine 10mg HS -psych to follow 3.NSTEMI -s/p heparin drip.... medical management at this time - outpatient workup when appropriate 4.Acute renal failure -resolved -prn bmp. Heparin Full Code DISPO plan for extensive rehab- brain rehab facility recommended Has [facility] guardian, awaiting amendment to guardianship for right to admit, court date May 26 Requires continued hospitalization for safe disposition. Time Spent With Patient Time: Total time managing care of this patient today ____ minutes. Quality Stroke Does the patient have a stroke diagnosis?: No VTE Prior VTE?: No VTE Risk Level:: Medical - moderate - high VTE Device Contraindication: N/A - Device Ordered VTE Drug Contraindication: N/A - Med Ordered
[2023-05-19 15:33] VITALS: BP 112/72; PULSE 60; RESP 16; TEMP 36.6; O2SAT 97
--- NOTE | 2023-05-19 16:29 | PC.NURSE ---
IV outdated,Dr. Howard notified,OK to keep IV out per Dr. Howard,IV removed by charge nurse Bravo
[2023-05-19 19:54] VITALS: BP 117/68; PULSE 68; RESP 17; TEMP 36.6; O2SAT 98
[2023-05-19] MEDS: OLANZapine 10 MG TABLET PO (20:40)
[2023-05-19] MEDS: Atorvastatin Calcium 40 MG TABLET PO (20:40)
[2023-05-20] MEDS: Heparin Sodium,Porcine 5,000 UNIT/ML VIAL 5000 UNIT SUBCUT ×3 (03:38→21:32)
[2023-05-20 04:00] VITALS: BP 130/83; PULSE 87; RESP 16; TEMP 36.5; O2SAT 97
[2023-05-20 06:00] VITALS: BMI 21.5
[2023-05-20 07:16] VITALS: BP 122/78; PULSE 73; RESP 16; TEMP 36.1; O2SAT 97
[2023-05-20] MEDS: Thiamine HCL 100 MG TABLET PO (08:05)
[2023-05-20] MEDS: Multivitamin TABLET 1 TAB PO (08:05)
[2023-05-20] MEDS: Folic Acid 1 MG TABLET PO (08:05)
[2023-05-20] MEDS: Sertraline HCL 50 MG TABLET PO (08:06)
[2023-05-20] MEDS: Metoprolol Tartrate 12.5 MG HALFTAB PO ×2 (08:06)
[2023-05-20] MEDS: Aspirin 81 MG TAB.CHEW PO (08:06)
[2023-05-20] MEDS: Nystatin Powder 15 GM BOTTLE 1 APPL TOPICAL ×3 (08:11→21:33)
--- NOTE | 2023-05-20 09:42 | HO.PM.IMPN ---
Subjective Subjective Date of Service: 05/20/23 Physical Exam Vital Signs: Vital Signs: Last Vital Signs Temp 97 F 05/20/23 07:16 Pulse 73 05/20/23 07:16 Resp 16 05/20/23 07:16 BP 122/78 05/20/23 07:16 Pulse Ox 97 05/20/23 07:16 O2 Del Method Room Air 05/20/23 07:16 O2 Flow Rate 98 05/17/23 20:00 FiO2 30 04/23/23 11:00 BMI result Body Mass Index 21.5 Const: Other: Constitutional : A wake, alert restin g comfortably Anic teric sclera Neck : Normal inspectio n, Supple Cardiova scular : RRR, no J VD Respiratory : Clear to auscultat ion,? no crackles, wheezes or rhonch i Gastrointestinal :? soft, Normal kristen wel sounds, Non te nder Skin : Warm, Dry Extremities no edema Neurologica l : Face symmetri uriel, speech clear , muscle wasting L Es bilaterally. Objective Data Active Medications Acetaminophen (Acetaminophen Oral Liquid 650 Mg/20.3 Ml Solution) 650 mg PO Q6H PRN PRN Reason: Fever Last Admin: 05/08/23 13:09 Dose: 650 mg Documented By: CLEMENCIA Aspirin (Aspirin 81 Mg Tab.Chew) 81 mg PO DAILY [facility] Last Admin: 05/20/23 08:06 Dose: 81 mg Documented By: CHERYLE Atorvastatin Calcium (Atorvastatin Calcium 40 Mg Tablet) 40 mg PO BEDTIME [facility] Last Admin: 05/19/23 20:40 Dose: 40 mg Documented By: FRANK Folic Acid (Folic Acid 1 Mg Tablet) 1 mg PO DAILY [facility] Last Admin: 05/20/23 08:05 Dose: 1 mg Documented By: CHERYLE Heparin Sodium (Porcine) (Heparin Sodium,Porcine 5,000 Unit/Ml Vial) 5,000 unit SUBCUT Q8H [facility] Last Admin: 05/20/23 03:38 Dose: 5,000 unit Documented By: FRANK Metoprolol Tartrate (Metoprolol Tartrate 12.5 Mg Halftab) 12.5 mg PO BID [facility]; Protocol Last Admin: 05/20/23 08:06 Dose: 12.5 mg Documented By: CHERYLE Multivitamins/Vitamin C (Multivitamin Tablet) 1 tab PO DAILY [facility] Last Admin: 05/20/23 08:05 Dose: 1 tab Documented By: CHERYLE Naloxone HCl (Naloxone Hcl 0.4 Mg/Ml Vial) 0.2 mg IVPUSH Q2M PRN PRN Reason: Excessive sedation or RR < 8 Nystatin (Nystatin Powder 15 Gm Bottle) 1 appl TOPICAL TID [facility]; Protocol Last Admin: 05/20/23 08:11 Dose: 1 appl Documented By: CHERYLE Olanzapine (Olanzapine 10 Mg Tablet) 10 mg PO BEDTIME [facility] Last Admin: 05/19/23 20:40 Dose: 10 mg Documented By: FRANK Sertraline HCl (Sertraline Hcl 50 Mg Tablet) 50 mg PO DAILY [facility] Last Admin: 05/20/23 08:06 Dose: 50 mg Documented By: CHERYLE Thiamine HCl (Thiamine Hcl 100 Mg Tablet) 100 mg PO DAILY [facility] Last Admin: 05/20/23 08:05 Dose: 100 mg Documented By: CHERYLE Labs 05/07/23 06:02 05/14/23 20:32 Assessment and Plan (1) Anoxic encephalopathy: Status: Acute (2) Schizophrenia: Status: Acute (3) Myocardial infarction: Status: Acute (4) Acute renal injury: Status: Acute Plan 28-year-old man with underlying history of schizophrenia, alcohol use, marijuana use?admitted on 04/08/2023 after he was noted to be unresponsive by his girlfriend for unclear amount of time. Patient was transported by EMS to emergency room where he was intubated for hypoxia and respiratory distress.? On further evaluation patient with imaging finding of aspiration and left pneumothorax.? Initial left mid axillary chest tube placed in emergency room with persistence of pneumothorax and questionable subdiaphragmatic placement.? Chest tube removed and replaced with left midclavicular in 3rd intercostal space with air evacuation and improvement in pneumothorax.? Patient also noted to have acute kidney injury and rhabdomyolysis and started on IV fluid hydration. He underwent right gluteal fasciotomy with significant improvement in his CPK and renal function.? However, remains persistently encephalopathic.? MRI on 04/10/2023 with bilateral cerebral anoxic related encephalopathy. ? Evaluated by neurology with prognosis consider to be guarded, but not catastrophic. Overall with slow neurologic improvement, With significant improvement on 04/23/2023. extubated 04/23/2023 and downgraded to the medical floor on 04/25. Limited improvement in responsiveness. 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 medical management at this time -lopressors, asa outpatient workup when appropriate Acute renal failure resolved dvt prophylaxis - Heparin sq Full Code DISPO plan for extensive rehab- brain rehab facility recommended Has [facility] guardian, awaiting amendment to guardianship for right to admit, court date May 26 Requires continued hospitalization for safe disposition. Time Spent With Patient Time: Total time managing care of this patient today ____ minutes. Quality Stroke Does the patient have a stroke diagnosis?: No VTE Prior VTE?: No VTE Risk Level:: Medical - moderate - high VTE Device Contraindication: N/A - Device Ordered VTE Drug Contraindication: N/A - Med Ordered
--- NOTE | 2023-05-20 09:48 | MHC.CLN ---
NUTRITION CONSULT CONSULT FOR SKIN INTEGRITY. PATIENT WITH STAGE I TO COCCYX AND INTACT BLISTER TO RIGHT FOOT. DIET=REGULAR. ENSURE TID PROVIDES ADDITIONAL 1050 KCALS, 60 G PROTEIN. SUPPLEMENT APPROPRIATE TO PROMOTE WOUND HEALING AND INCREASE NUTRITIONAL INTAKE. INTAKE X 3 DAYS AVG 50%. 1:1 TOTAL ASSIST WITH FEEDING. CONTINUE CURRENT DIET AND SUPPLEMENT. ENCOURAGE INTAKE ABLE. RD TO FOLLOW WEEKLY.
--- NOTE | 2023-05-20 12:48 | MHC.CM.PN ---
EMR REVIEWED, PT WILL HAVE [facility] 05/26/23 TO AMEND TO ADMIT FOR LTC. NEW REFERRAL SENT TO [facility] FOR REVIEW. NO BED OFFERS RECEIVED AT THIS TIME. CM WILL CONTINUE TO FOLLOW FOR PLACEMENT.
[2023-05-20 15:21] VITALS: BP 131/88; PULSE 73; RESP 16; TEMP 36.4; O2SAT 98
[2023-05-20 20:00] VITALS: BP 118/75; PULSE 71; RESP 20; TEMP 37.1; O2SAT 97
[2023-05-20] MEDS: Atorvastatin Calcium 40 MG TABLET PO (21:32)
[2023-05-20] MEDS: OLANZapine 10 MG TABLET PO (21:33)
[2023-05-21 04:00] VITALS: BP 122/73; PULSE 90; RESP 16; TEMP 36.6; O2SAT 97
[2023-05-21] MEDS: Heparin Sodium,Porcine 5,000 UNIT/ML VIAL 5000 UNIT SUBCUT ×3 (05:48→21:46)
[2023-05-21] MEDS: Nystatin Powder 15 GM BOTTLE 1 APPL TOPICAL ×3 (07:23→21:46)
[2023-05-21] MEDS: Multivitamin TABLET 1 TAB PO (07:23)
[2023-05-21] MEDS: Folic Acid 1 MG TABLET PO (07:23)
[2023-05-21] MEDS: Metoprolol Tartrate 12.5 MG HALFTAB PO ×2 (07:23→21:46)
[2023-05-21] MEDS: Thiamine HCL 100 MG TABLET PO (07:23)
[2023-05-21] MEDS: Sertraline HCL 50 MG TABLET PO (07:23)
[2023-05-21] MEDS: Aspirin 81 MG TAB.CHEW PO (07:23)
[2023-05-21 07:53] VITALS: BP 133/86; PULSE 81; RESP 18; TEMP 36.3; O2SAT 98
--- NOTE | 2023-05-21 08:51 | HO.PM.IMPN ---
Subjective Subjective Date of Service: 05/21/23 Interval History: no complaints Physical Exam Vital Signs: Vital Signs: Last Vital Signs Temp 97.3 F 05/21/23 07:53 Pulse 81 05/21/23 07:53 Resp 18 05/21/23 07:53 BP 133/86 05/21/23 07:53 Pulse Ox 98 05/21/23 07:53 O2 Del Method Room Air 05/21/23 07:53 O2 Flow Rate 98 05/17/23 20:00 FiO2 30 04/23/23 11:00 BMI result Body Mass Index 21.5 Const: Other: Constitutional : A wake, alert restin g comfortably Anic teric sclera Neck : Normal inspectio n, Supple Cardiova scular : RRR, no J VD Respiratory : Clear to auscultat ion,? no crackles, wheezes or rhonch i Gastrointestinal :? soft, Normal kristen wel sounds, Non te nder Skin : Warm, Dry Extremities no edema Neurologica l : Face symmetri uriel, speech clear , muscle wasting L Es bilaterally. Objective Data Active Medications Acetaminophen (Acetaminophen Oral Liquid 650 Mg/20.3 Ml Solution) 650 mg PO Q6H PRN PRN Reason: Fever Last Admin: 05/08/23 13:09 Dose: 650 mg Documented By: CLEMENCIA Aspirin (Aspirin 81 Mg Tab.Chew) 81 mg PO DAILY [facility] Last Admin: 05/21/23 07:23 Dose: 81 mg Documented By: CHERYLE Atorvastatin Calcium (Atorvastatin Calcium 40 Mg Tablet) 40 mg PO BEDTIME [facility] Last Admin: 05/20/23 21:32 Dose: 40 mg Documented By: DEAN Folic Acid (Folic Acid 1 Mg Tablet) 1 mg PO DAILY [facility] Last Admin: 05/21/23 07:23 Dose: 1 mg Documented By: CHERYLE Heparin Sodium (Porcine) (Heparin Sodium,Porcine 5,000 Unit/Ml Vial) 5,000 unit SUBCUT Q8H [facility] Last Admin: 05/21/23 05:48 Dose: 5,000 unit Documented By: DEAN Metoprolol Tartrate (Metoprolol Tartrate 12.5 Mg Halftab) 12.5 mg PO BID [facility]; Protocol Last Admin: 05/21/23 07:23 Dose: 12.5 mg Documented By: CHERYLE Multivitamins/Vitamin C (Multivitamin Tablet) 1 tab PO DAILY [facility] Last Admin: 05/21/23 07:23 Dose: 1 tab Documented By: CHERYLE Naloxone HCl (Naloxone Hcl 0.4 Mg/Ml Vial) 0.2 mg IVPUSH Q2M PRN PRN Reason: Excessive sedation or RR < 8 Nystatin (Nystatin Powder 15 Gm Bottle) 1 appl TOPICAL TID [facility]; Protocol Last Admin: 05/21/23 07:23 Dose: 1 appl Documented By: CHERYLE Olanzapine (Olanzapine 10 Mg Tablet) 10 mg PO BEDTIME [facility] Last Admin: 05/20/23 21:33 Dose: 10 mg Documented By: SHE-JOZEB Sertraline HCl (Sertraline Hcl 50 Mg Tablet) 50 mg PO DAILY [facility] Last Admin: 05/21/23 07:23 Dose: 50 mg Documented By: CHERYLE Thiamine HCl (Thiamine Hcl 100 Mg Tablet) 100 mg PO DAILY [facility] Last Admin: 05/21/23 07:23 Dose: 100 mg Documented By: CHERYLE Labs 05/07/23 06:02 05/14/23 20:32 Assessment and Plan (1) Anoxic encephalopathy: Status: Acute (2) Schizophrenia: Status: Acute (3) Myocardial infarction: Status: Acute (4) Acute renal injury: Status: Acute Plan 28-year-old man with underlying history of schizophrenia, alcohol use, marijuana use?admitted on 04/08/2023 after he was noted to be unresponsive by his girlfriend for unclear amount of time. Patient was transported by EMS to emergency room where he was intubated for hypoxia and respiratory distress.? On further evaluation patient with imaging finding of aspiration and left pneumothorax.? Initial left mid axillary chest tube placed in emergency room with persistence of pneumothorax and questionable subdiaphragmatic placement.? Chest tube removed and replaced with left midclavicular in 3rd intercostal space with air evacuation and improvement in pneumothorax.? Patient also noted to have acute kidney injury and rhabdomyolysis and started on IV fluid hydration. He underwent right gluteal fasciotomy with significant improvement in his CPK and renal function.? However, remains persistently encephalopathic.? MRI on 04/10/2023 with bilateral cerebral anoxic related encephalopathy. ? Evaluated by neurology with prognosis consider to be guarded, but not catastrophic. Overall with slow neurologic improvement, With significant improvement on 04/23/2023. extubated 04/23/2023 and downgraded to the medical floor on 04/25. Limited improvement in responsiveness. 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 medical management at this time -lopressors, asa outpatient workup when appropriate Acute renal failure resolved dvt prophylaxis - Heparin sq Full Code DISPO plan for extensive rehab- brain rehab facility recommended Has [facility] guardian, awaiting amendment to guardianship for right to admit, court date May 26 Requires continued hospitalization for safe disposition. Time Spent With Patient Time: Total time managing care of this patient today ____ minutes. Quality Stroke Does the patient have a stroke diagnosis?: No VTE Prior VTE?: No VTE Risk Level:: Medical - moderate - high VTE Device Contraindication: N/A - Device Ordered VTE Drug Contraindication: N/A - Med Ordered
--- NOTE | 2023-05-21 12:19 | MHC.CM.PN ---
JOSE SPOKE WITH FELICIA AT [facility], SHE WILL REVIEW PT'S CASE (SENT VIA [facility]) AND GET BACK TO US AFTER REVIEW TO SEE IF PLACEMENT IS APPROPRIATE THERE.
--- NOTE | 2023-05-21 13:45 | MHC.SL.SOA ---
Referring Provider: Chaim Mccullough MD Reason for Referral: Post-extubation Date of Plan of Treatment:04/24/23 Onset of Symptoms/Illness:04/23/23 Date Treatment Started:04/24/23 Medical Diagnosis:Anoxic encephalopathy, polysubstance abuse, schizophrenia Primary Speech Language Diagnosis:R13.12 Oropharyngeal Phase Dysphagia Secondary Speech Language Diagnosis: Number of Authorized Visits Remaining: Authorization End Date: Reason for Visit:13402 Individual Treatment Other: Subjective:Patient was seated in chair at bedside, at onset appeared to be perseverating on visual pattern on hospital gown (staring at folded material and occasionally stroking fabric). When asked, stated I am doing strengthening exercises. Patient however then agreed to participate in speech ongoing assessment activities. Patient presented as significantly more verbally interactive and engaged today. Objective: Patient was presented with elements of formal and informal assessment of language and cognition. Assessment:On the Short Form of the [place] Naming Test, Patient labelled 6/15 items. On error items, patient noted not to respond to context clues, nor phonemic or part word cues to elicit label/word. Patient also noted to readily label less concrete items (e.g. 'Unicorn and Sphinx ) while having difficulty with earlier items ( bench ). Patient was asked to point to various items in room, which was modified to look at when patient did not initiate pointing gesture. Patient was noted to adjust gaze only to items labelled in his immediate field of vision. When prompted to look towards items to the right or the left for items labelled, patient stated you are making this hard. On general orientation questions, patient responded [facility] when asked where do you live? When queried about that response, he stated It's the easiest thing to remember. Patient responded no when asked if he lived in [place]. Patient also responded [facility] when asked where he went to school, and perseverated on this response for another general question (where did you go to High School?). Summary/Conclusion: Patient presents with markedly increased verbal interaction and responses (previously patient had been nonverbal with limited engagement of any kind, then evidenced some improvement in responding with y/n only). Patient was able to verbally label some items, verbally respond to some questions, and generally use increased verbal and pragmatic interaction compared to onset of hospitalization. However patient evidences high level of confusion, periods of perseveration, and difficulty recalling general information or details. Recommend ongoing assessment of language and cognition. Recommend continued speech/language intervention/therapy at the next level of care. Notes: Continue formal and informal assessment of language and cognition. Plan: Goal # : Lon will participate in formal and informal assessment tasks of receptive language. Status of Goal: Goal # : Lon will participate in formal and informal assessment tasks of expressive langauge. Status of Goal: Goal # : Lon will participate in formal and informal assessment tasks of cognitive function. Status of Goal: Goal # : Status of Goal: Seen by: Graduate/Clinical Fellow: No Supervisory Statement: f_Reg Query Last Value , [facility] Speech Language Pathologist: Malou Jean M.A., CCC-BUSINESS OFFICE COORDINATOR
[2023-05-21 15:10] VITALS: BP 138/93; PULSE 90; RESP 18; TEMP 36.6; O2SAT 98
[2023-05-21 19:30] VITALS: BP 136/88; PULSE 76; RESP 18; TEMP 36.5; O2SAT 98
[2023-05-21] MEDS: Atorvastatin Calcium 40 MG TABLET PO (21:46)
[2023-05-21] MEDS: OLANZapine 10 MG TABLET PO (21:46)
[2023-05-22 04:00] VITALS: BP 138/86; PULSE 89; RESP 16; TEMP 36.8; O2SAT 97
[2023-05-22] MEDS: Heparin Sodium,Porcine 5,000 UNIT/ML VIAL 5000 UNIT SUBCUT ×3 (05:25→22:09)
[2023-05-22] MEDS: Sertraline HCL 50 MG TABLET PO (07:47)
[2023-05-22] MEDS: Aspirin 81 MG TAB.CHEW PO (07:47)
[2023-05-22] MEDS: Folic Acid 1 MG TABLET PO (07:48)
[2023-05-22] MEDS: Multivitamin TABLET 1 TAB PO (07:48)
[2023-05-22] MEDS: Thiamine HCL 100 MG TABLET PO (07:48)
[2023-05-22] MEDS: Metoprolol Tartrate 12.5 MG HALFTAB PO ×2 (07:48→22:08)
[2023-05-22] MEDS: Nystatin Powder 15 GM BOTTLE 1 APPL TOPICAL ×3 (07:48→22:15)
[2023-05-22 08:00] VITALS: BP 137/89; PULSE 64; RESP 18; TEMP 36.8; O2SAT 99
[2023-05-22 09:13] VITALS: BP 137/89; PULSE 64; O2SAT 99
--- NOTE | 2023-05-22 09:38 | HO.PM.IMPN ---
Subjective Subjective Date of Service: 05/22/23 Interval History: no complaints Physical Exam Vital Signs: Vital Signs: Last Vital Signs Temp 98.2 F 05/22/23 08:00 Pulse 64 05/22/23 09:13 Resp 18 05/22/23 08:00 BP 137/89 05/22/23 09:13 Pulse Ox 99 05/22/23 09:13 O2 Del Method Room Air 05/22/23 08:00 O2 Flow Rate 98 05/17/23 20:00 FiO2 30 04/23/23 11:00 BMI result Body Mass Index 21.5 Const: Other: Constitutional : A wake, alert restin g comfortably Anic teric sclera Neck : Normal inspectio n, Supple Cardiova scular : RRR, no J VD Respiratory : Clear to auscultat ion,? no crackles, wheezes or rhonch i Gastrointestinal :? soft, Normal kristen wel sounds, Non te nder Skin : Warm, Dry Extremities no edema Neurologica l : Face symmetri uriel, speech clear , muscle wasting L Es bilaterally. Objective Data Active Medications Acetaminophen (Acetaminophen Oral Liquid 650 Mg/20.3 Ml Solution) 650 mg PO Q6H PRN PRN Reason: Fever Last Admin: 05/08/23 13:09 Dose: 650 mg Documented By: CLEMENCIA Aspirin (Aspirin 81 Mg Tab.Chew) 81 mg PO DAILY [facility] Last Admin: 05/22/23 07:47 Dose: 81 mg Documented By: SANDIE Atorvastatin Calcium (Atorvastatin Calcium 40 Mg Tablet) 40 mg PO BEDTIME [facility] Last Admin: 05/21/23 21:46 Dose: 40 mg Documented By: DEAN Folic Acid (Folic Acid 1 Mg Tablet) 1 mg PO DAILY [facility] Last Admin: 05/22/23 07:48 Dose: 1 mg Documented By: SANDIE Heparin Sodium (Porcine) (Heparin Sodium,Porcine 5,000 Unit/Ml Vial) 5,000 unit SUBCUT Q8H [facility] Last Admin: 05/22/23 05:25 Dose: 5,000 unit Documented By: DEAN Metoprolol Tartrate (Metoprolol Tartrate 12.5 Mg Halftab) 12.5 mg PO BID [facility]; Protocol Last Admin: 05/22/23 07:48 Dose: 12.5 mg Documented By: SANDIE Multivitamins/Vitamin C (Multivitamin Tablet) 1 tab PO DAILY [facility] Last Admin: 05/22/23 07:48 Dose: 1 tab Documented By: SANDIE Naloxone HCl (Naloxone Hcl 0.4 Mg/Ml Vial) 0.2 mg IVPUSH Q2M PRN PRN Reason: Excessive sedation or RR < 8 Nystatin (Nystatin Powder 15 Gm Bottle) 1 appl TOPICAL TID [facility]; Protocol Last Admin: 05/22/23 07:48 Dose: 1 appl Documented By: SANDIE Olanzapine (Olanzapine 10 Mg Tablet) 10 mg PO BEDTIME [facility] Last Admin: 05/21/23 21:46 Dose: 10 mg Documented By: SHE-JOZEB Sertraline HCl (Sertraline Hcl 50 Mg Tablet) 50 mg PO DAILY [facility] Last Admin: 05/22/23 07:47 Dose: 50 mg Documented By: SANDIE Thiamine HCl (Thiamine Hcl 100 Mg Tablet) 100 mg PO DAILY [facility] Last Admin: 05/22/23 07:48 Dose: 100 mg Documented By: SANDIE Labs 05/07/23 06:02 05/14/23 20:32 Assessment and Plan (1) Anoxic encephalopathy: Status: Acute (2) Schizophrenia: Status: Acute (3) Myocardial infarction: Status: Acute (4) Acute renal injury: Status: Acute Plan 28-year-old man with underlying history of schizophrenia, alcohol use, marijuana use?admitted on 04/08/2023 after he was noted to be unresponsive by his girlfriend for unclear amount of time. Patient was transported by EMS to emergency room where he was intubated for hypoxia and respiratory distress.? On further evaluation patient with imaging finding of aspiration and left pneumothorax.? Initial left mid axillary chest tube placed in emergency room with persistence of pneumothorax and questionable subdiaphragmatic placement.? Chest tube removed and replaced with left midclavicular in 3rd intercostal space with air evacuation and improvement in pneumothorax.? Patient also noted to have acute kidney injury and rhabdomyolysis and started on IV fluid hydration. He underwent right gluteal fasciotomy with significant improvement in his CPK and renal function.? However, remains persistently encephalopathic.? MRI on 04/10/2023 with bilateral cerebral anoxic related encephalopathy. ? Evaluated by neurology with prognosis consider to be guarded, but not catastrophic. Overall with slow neurologic improvement, With significant improvement on 04/23/2023. extubated 04/23/2023 and downgraded to the medical floor on 04/25. Limited improvement in responsiveness. 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 medical management at this time -lopressors, asa outpatient workup when appropriate Acute renal failure resolved dvt prophylaxis - Heparin sq Full Code DISPO plan for extensive rehab- brain rehab facility recommended Has [facility] guardian, awaiting amendment to guardianship for right to admit, court date May 26 Requires continued hospitalization for safe disposition. Time Spent With Patient Time: Total time managing care of this patient today ____ minutes. Quality Stroke Does the patient have a stroke diagnosis?: No VTE Prior VTE?: No VTE Risk Level:: Medical - moderate - high VTE Device Contraindication: N/A - Device Ordered VTE Drug Contraindication: N/A - Med Ordered
--- NOTE | 2023-05-22 14:44 | MHC.CM.PN ---
CM CONTINUES TO FOLLOW PROGRESS, REFERRALS UPDATED. CM AWAITING REVIEW FROM [facility] TO SEE IF PLACEMENT IS APPROPRIATE.
[2023-05-22 15:23] VITALS: BP 132/86; PULSE 101; RESP 18; TEMP 36.6; O2SAT 96
[2023-05-22 19:39] VITALS: BP 125/83; PULSE 85; RESP 18; TEMP 36.9; O2SAT 98
[2023-05-22] MEDS: Atorvastatin Calcium 40 MG TABLET PO (22:09)
[2023-05-22] MEDS: OLANZapine 10 MG TABLET PO (22:09)
[2023-05-23 03:54] VITALS: BP 140/68; PULSE 66; RESP 17; TEMP 36.6; O2SAT 96
[2023-05-23] MEDS: Heparin Sodium,Porcine 5,000 UNIT/ML VIAL 5000 UNIT SUBCUT ×3 (04:23→20:19)
[2023-05-23 06:00] VITALS: BMI 23.4
[2023-05-23 07:20] VITALS: BP 113/68; PULSE 55; RESP 18; TEMP 36.6; O2SAT 96
--- NOTE | 2023-05-23 08:55 | HO.PM.IMPN ---
Subjective Subjective Date of Service: 05/23/23 Interval History: no complaints Physical Exam Vital Signs: Vital Signs: Last Vital Signs Temp 97.8 F 05/23/23 07:20 Pulse 55 05/23/23 07:20 Resp 18 05/23/23 07:20 BP 113/68 05/23/23 07:20 Pulse Ox 96 05/23/23 07:20 O2 Del Method Room Air 05/23/23 07:20 O2 Flow Rate 98 05/17/23 20:00 FiO2 30 04/23/23 11:00 BMI result Body Mass Index 23.4 Const: Other: Constitutional : A wake, alert restin g comfortably Anic teric sclera Neck : Normal inspectio n, Supple Cardiova scular : RRR, no J VD Respiratory : Clear to auscultat ion,? no crackles, wheezes or rhonch i Gastrointestinal :? soft, Normal kristen wel sounds, Non te nder Skin : Warm, Dry Extremities no edema Neurologica l : Face symmetri uriel, speech clear , muscle wasting L Es bilaterally. Objective Data Active Medications Acetaminophen (Acetaminophen Oral Liquid 650 Mg/20.3 Ml Solution) 650 mg PO Q6H PRN PRN Reason: Fever Last Admin: 05/08/23 13:09 Dose: 650 mg Documented By: CLEMENCIA Aspirin (Aspirin 81 Mg Tab.Chew) 81 mg PO DAILY [facility] Last Admin: 05/22/23 07:47 Dose: 81 mg Documented By: SANDIE Atorvastatin Calcium (Atorvastatin Calcium 40 Mg Tablet) 40 mg PO BEDTIME [facility] Last Admin: 05/22/23 22:09 Dose: 40 mg Documented By: MARYANN Folic Acid (Folic Acid 1 Mg Tablet) 1 mg PO DAILY [facility] Last Admin: 05/22/23 07:48 Dose: 1 mg Documented By: SANDIE Heparin Sodium (Porcine) (Heparin Sodium,Porcine 5,000 Unit/Ml Vial) 5,000 unit SUBCUT Q8H [facility] Last Admin: 05/23/23 04:23 Dose: 5,000 unit Documented By: MARYANN Metoprolol Tartrate (Metoprolol Tartrate 12.5 Mg Halftab) 12.5 mg PO BID [facility]; Protocol Last Admin: 05/22/23 22:08 Dose: 12.5 mg Documented By: MARYANN Multivitamins/Vitamin C (Multivitamin Tablet) 1 tab PO DAILY [facility] Last Admin: 05/22/23 07:48 Dose: 1 tab Documented By: SANDIE Naloxone HCl (Naloxone Hcl 0.4 Mg/Ml Vial) 0.2 mg IVPUSH Q2M PRN PRN Reason: Excessive sedation or RR < 8 Nystatin (Nystatin Powder 15 Gm Bottle) 1 appl TOPICAL TID [facility]; Protocol Last Admin: 05/22/23 22:15 Dose: 1 appl Documented By: MARYANN Olanzapine (Olanzapine 10 Mg Tablet) 10 mg PO BEDTIME [facility] Last Admin: 05/22/23 22:09 Dose: 10 mg Documented By: MARYANN Sertraline HCl (Sertraline Hcl 50 Mg Tablet) 50 mg PO DAILY [facility] Last Admin: 05/22/23 07:47 Dose: 50 mg Documented By: SANDIE Thiamine HCl (Thiamine Hcl 100 Mg Tablet) 100 mg PO DAILY [facility] Last Admin: 05/22/23 07:48 Dose: 100 mg Documented By: SANDIE Labs 05/07/23 06:02 05/14/23 20:32 Assessment and Plan (1) Anoxic encephalopathy: Status: Acute (2) Schizophrenia: Status: Acute (3) Myocardial infarction: Status: Acute (4) Acute renal injury: Status: Acute Plan 28-year-old man with underlying history of schizophrenia, alcohol use, marijuana use?admitted on 04/08/2023 after he was noted to be unresponsive by his girlfriend for unclear amount of time. Patient was transported by EMS to emergency room where he was intubated for hypoxia and respiratory distress.? On further evaluation patient with imaging finding of aspiration and left pneumothorax.? Initial left mid axillary chest tube placed in emergency room with persistence of pneumothorax and questionable subdiaphragmatic placement.? Chest tube removed and replaced with left midclavicular in 3rd intercostal space with air evacuation and improvement in pneumothorax.? Patient also noted to have acute kidney injury and rhabdomyolysis and started on IV fluid hydration. He underwent right gluteal fasciotomy with significant improvement in his CPK and renal function.? However, remains persistently encephalopathic.? MRI on 04/10/2023 with bilateral cerebral anoxic related encephalopathy. ? Evaluated by neurology with prognosis consider to be guarded, but not catastrophic. Overall with slow neurologic improvement, With significant improvement on 04/23/2023. extubated 04/23/2023 and downgraded to the medical floor on 04/25. Limited improvement in responsiveness. 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 medical management at this time -lopressors, asa outpatient workup when appropriate Acute renal failure resolved dvt prophylaxis - Heparin sq Full Code DISPO plan for extensive rehab- brain rehab facility recommended Has [facility] guardian, awaiting amendment to guardianship for right to admit, court date May 26 Requires continued hospitalization for safe disposition. Time Spent With Patient Time: Total time managing care of this patient today ____ minutes. Quality Stroke Does the patient have a stroke diagnosis?: No VTE Prior VTE?: No VTE Risk Level:: Medical - moderate - high VTE Device Contraindication: N/A - Device Ordered VTE Drug Contraindication: N/A - Med Ordered
[2023-05-23] MEDS: Thiamine HCL 100 MG TABLET PO (09:17)
[2023-05-23] MEDS: Aspirin 81 MG TAB.CHEW PO (09:17)
[2023-05-23] MEDS: Multivitamin TABLET 1 TAB PO (09:17)
[2023-05-23] MEDS: Sertraline HCL 50 MG TABLET PO (09:17)
[2023-05-23] MEDS: Folic Acid 1 MG TABLET PO (09:17)
[2023-05-23] MEDS: Metoprolol Tartrate 12.5 MG HALFTAB PO ×2 (09:17→20:19)
[2023-05-23] MEDS: Nystatin Powder 15 GM BOTTLE 1 APPL TOPICAL ×2 (09:22→20:20)
[2023-05-23 16:00] VITALS: BP 125/74; PULSE 73; RESP 20; TEMP 36.2; O2SAT 97
[2023-05-23 20:00] VITALS: BP 120/76; PULSE 64; RESP 20; TEMP 36.6; O2SAT 97
[2023-05-23] MEDS: OLANZapine 10 MG TABLET PO (20:19)
[2023-05-23] MEDS: Atorvastatin Calcium 40 MG TABLET PO (20:19)
[2023-05-24 04:00] VITALS: BP 152/95; PULSE 73; RESP 18; TEMP 36.6; O2SAT 98
[2023-05-24] MEDS: Heparin Sodium,Porcine 5,000 UNIT/ML VIAL 5000 UNIT SUBCUT ×3 (04:29→19:46)
[2023-05-24] MEDS: Metoprolol Tartrate 12.5 MG HALFTAB PO ×2 (07:57→19:46)
[2023-05-24] MEDS: Aspirin 81 MG TAB.CHEW PO (07:57)
[2023-05-24] MEDS: Folic Acid 1 MG TABLET PO (07:57)
[2023-05-24] MEDS: Multivitamin TABLET 1 TAB PO (07:57)
[2023-05-24] MEDS: Nystatin Powder 15 GM BOTTLE 1 APPL TOPICAL ×3 (07:58→19:47)
[2023-05-24] MEDS: Thiamine HCL 100 MG TABLET PO (07:58)
[2023-05-24 08:00] VITALS: BP 139/98; PULSE 90; RESP 18; TEMP 36.8; O2SAT 99
[2023-05-24] MEDS: Sertraline HCL 50 MG TABLET PO (08:02)
--- NOTE | 2023-05-24 09:26 | HO.PM.IMPN ---
Subjective Subjective Date of Service: 05/24/23 Interval History: noc opmlaints Physical Exam Vital Signs: Vital Signs: Last Vital Signs Temp 98.2 F 05/24/23 08:00 Pulse 90 05/24/23 08:00 Resp 18 05/24/23 08:00 BP 139/98 H 05/24/23 08:00 Pulse Ox 99 05/24/23 08:00 O2 Del Method Room Air 05/24/23 08:00 O2 Flow Rate 98 05/17/23 20:00 FiO2 30 04/23/23 11:00 BMI result Body Mass Index 23.4 Const: Other: Constitutional : A wake, alert restin g comfortably Anic teric sclera Neck : Normal inspectio n, Supple Cardiova scular : RRR, no J VD Respiratory : Clear to auscultat ion,? no crackles, wheezes or rhonch i Gastrointestinal :? soft, Normal kristen wel sounds, Non te nder Skin : Warm, Dry Extremities no edema Neurologica l : Face symmetri uriel, speech clear , muscle wasting L Es bilaterally. Objective Data Active Medications Acetaminophen (Acetaminophen Oral Liquid 650 Mg/20.3 Ml Solution) 650 mg PO Q6H PRN PRN Reason: Fever Last Admin: 05/08/23 13:09 Dose: 650 mg Documented By: CLEMENCIA Aspirin (Aspirin 81 Mg Tab.Chew) 81 mg PO DAILY [facility] Last Admin: 05/24/23 07:57 Dose: 81 mg Documented By: ZORAN Atorvastatin Calcium (Atorvastatin Calcium 40 Mg Tablet) 40 mg PO BEDTIME [facility] Last Admin: 05/23/23 20:19 Dose: 40 mg Documented By: MARYANN Folic Acid (Folic Acid 1 Mg Tablet) 1 mg PO DAILY [facility] Last Admin: 05/24/23 07:57 Dose: 1 mg Documented By: ZORAN Heparin Sodium (Porcine) (Heparin Sodium,Porcine 5,000 Unit/Ml Vial) 5,000 unit SUBCUT Q8H [facility] Last Admin: 05/24/23 04:29 Dose: 5,000 unit Documented By: MARYANN Metoprolol Tartrate (Metoprolol Tartrate 12.5 Mg Halftab) 12.5 mg PO BID [facility]; Protocol Last Admin: 05/24/23 07:57 Dose: 12.5 mg Documented By: ZORAN Multivitamins/Vitamin C (Multivitamin Tablet) 1 tab PO DAILY [facility] Last Admin: 05/24/23 07:57 Dose: 1 tab Documented By: ZORAN Naloxone HCl (Naloxone Hcl 0.4 Mg/Ml Vial) 0.2 mg IVPUSH Q2M PRN PRN Reason: Excessive sedation or RR < 8 Nystatin (Nystatin Powder 15 Gm Bottle) 1 appl TOPICAL TID [facility]; Protocol Last Admin: 05/24/23 07:58 Dose: 1 appl Documented By: ZORAN Olanzapine (Olanzapine 10 Mg Tablet) 10 mg PO BEDTIME [facility] Last Admin: 05/23/23 20:19 Dose: 10 mg Documented By: MARYANN Sertraline HCl (Sertraline Hcl 50 Mg Tablet) 50 mg PO DAILY [facility] Last Admin: 05/24/23 08:02 Dose: 50 mg Documented By: ZORAN Thiamine HCl (Thiamine Hcl 100 Mg Tablet) 100 mg PO DAILY [facility] Last Admin: 05/24/23 07:58 Dose: 100 mg Documented By: ZORAN Labs 05/07/23 06:02 05/14/23 20:32 Assessment and Plan (1) Anoxic encephalopathy: Status: Acute (2) Schizophrenia: Status: Acute (3) Myocardial infarction: Status: Acute (4) Acute renal injury: Status: Acute Plan 28-year-old man with underlying history of schizophrenia, alcohol use, marijuana use?admitted on 04/08/2023 after he was noted to be unresponsive by his girlfriend for unclear amount of time. Patient was transported by EMS to emergency room where he was intubated for hypoxia and respiratory distress.? On further evaluation patient with imaging finding of aspiration and left pneumothorax.? Initial left mid axillary chest tube placed in emergency room with persistence of pneumothorax and questionable subdiaphragmatic placement.? Chest tube removed and replaced with left midclavicular in 3rd intercostal space with air evacuation and improvement in pneumothorax.? Patient also noted to have acute kidney injury and rhabdomyolysis and started on IV fluid hydration. He underwent right gluteal fasciotomy with significant improvement in his CPK and renal function.? However, remains persistently encephalopathic.? MRI on 04/10/2023 with bilateral cerebral anoxic related encephalopathy. ? Evaluated by neurology with prognosis consider to be guarded, but not catastrophic. Overall with slow neurologic improvement, With significant improvement on 04/23/2023. extubated 04/23/2023 and downgraded to the medical floor on 04/25. Limited improvement in responsiveness. 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 medical management at this time -lopressors, asa outpatient workup when appropriate Acute renal failure resolved dvt prophylaxis - Heparin sq Full Code DISPO plan for extensive rehab- brain rehab facility recommended Has [facility] guardian, awaiting amendment to guardianship for right to admit, court date May 26 Requires continued hospitalization for safe disposition. Time Spent With Patient Time: Total time managing care of this patient today ____ minutes. Quality Stroke Does the patient have a stroke diagnosis?: No VTE Prior VTE?: No VTE Risk Level:: Medical - moderate - high VTE Device Contraindication: N/A - Device Ordered VTE Drug Contraindication: N/A - Med Ordered
[2023-05-24 15:09] VITALS: BP 135/81; PULSE 61; RESP 18; TEMP 36.4; O2SAT 97
[2023-05-24 19:31] VITALS: BP 131/88; PULSE 95; RESP 20; TEMP 36.8; O2SAT 98
[2023-05-24] MEDS: Atorvastatin Calcium 40 MG TABLET PO (19:46)
[2023-05-24] MEDS: OLANZapine 10 MG TABLET PO (19:46)
[2023-05-25 03:23] VITALS: BP 118/79; PULSE 61; RESP 16; TEMP 36.6; O2SAT 98
[2023-05-25] MEDS: Heparin Sodium,Porcine 5,000 UNIT/ML VIAL 5000 UNIT SUBCUT ×3 (03:44→20:08)
[2023-05-25 07:24] VITALS: BP 121/72; PULSE 70; RESP 18; TEMP 36.2; O2SAT 98
--- NOTE | 2023-05-25 09:00 | HO.PM.IMPN ---
Subjective Subjective Date of Service: 05/25/23 Interval History: no complaints Physical Exam Vital Signs: Vital Signs: Last Vital Signs Temp 97.2 F 05/25/23 07:24 Pulse 70 05/25/23 07:24 Resp 18 05/25/23 07:24 BP 121/72 05/25/23 07:24 Pulse Ox 98 05/25/23 07:24 O2 Del Method Room Air 05/25/23 07:24 O2 Flow Rate 98 05/17/23 20:00 FiO2 30 04/23/23 11:00 BMI result Body Mass Index 23.4 Const: Other: Constitutional : A wake, alert restin g comfortably Anic teric sclera Neck : Normal inspectio n, Supple Cardiova scular : RRR, no J VD Respiratory : Clear to auscultat ion,? no crackles, wheezes or rhonch i Gastrointestinal :? soft, Normal kristen wel sounds, Non te nder Skin : Warm, Dry Extremities no edema Neurologica l : Face symmetri uriel, speech clear , muscle wasting L Es bilaterally. Objective Data Active Medications Acetaminophen (Acetaminophen Oral Liquid 650 Mg/20.3 Ml Solution) 650 mg PO Q6H PRN PRN Reason: Fever Last Admin: 05/08/23 13:09 Dose: 650 mg Documented By: CLEMENCIA Aspirin (Aspirin 81 Mg Tab.Chew) 81 mg PO DAILY [facility] Last Admin: 05/24/23 07:57 Dose: 81 mg Documented By: ZORAN Atorvastatin Calcium (Atorvastatin Calcium 40 Mg Tablet) 40 mg PO BEDTIME [facility] Last Admin: 05/24/23 19:46 Dose: 40 mg Documented By: MODESTO Folic Acid (Folic Acid 1 Mg Tablet) 1 mg PO DAILY [facility] Last Admin: 05/24/23 07:57 Dose: 1 mg Documented By: ZORAN Heparin Sodium (Porcine) (Heparin Sodium,Porcine 5,000 Unit/Ml Vial) 5,000 unit SUBCUT Q8H [facility] Last Admin: 05/25/23 03:44 Dose: 5,000 unit Documented By: MODESTO Metoprolol Tartrate (Metoprolol Tartrate 12.5 Mg Halftab) 12.5 mg PO BID [facility]; Protocol Last Admin: 05/24/23 19:46 Dose: 12.5 mg Documented By: MODESTO Comments: BP 131/88 H 95 Multivitamins/Vitamin C (Multivitamin Tablet) 1 tab PO DAILY [facility] Last Admin: 05/24/23 07:57 Dose: 1 tab Documented By: ZORAN Naloxone HCl (Naloxone Hcl 0.4 Mg/Ml Vial) 0.2 mg IVPUSH Q2M PRN PRN Reason: Excessive sedation or RR < 8 Nystatin (Nystatin Powder 15 Gm Bottle) 1 appl TOPICAL TID [facility]; Protocol Last Admin: 05/24/23 19:47 Dose: 1 appl Documented By: MODESTO Comments: apply to perianal area Olanzapine (Olanzapine 10 Mg Tablet) 10 mg PO BEDTIME [facility] Last Admin: 05/24/23 19:46 Dose: 10 mg Documented By: MODESTO Sertraline HCl (Sertraline Hcl 50 Mg Tablet) 50 mg PO DAILY [facility] Last Admin: 05/24/23 08:02 Dose: 50 mg Documented By: ZORAN Thiamine HCl (Thiamine Hcl 100 Mg Tablet) 100 mg PO DAILY [facility] Last Admin: 05/24/23 07:58 Dose: 100 mg Documented By: ZORAN Labs 05/07/23 06:02 05/14/23 20:32 Assessment and Plan (1) Anoxic encephalopathy: Status: Acute (2) Schizophrenia: Status: Acute (3) Myocardial infarction: Status: Acute (4) Acute renal injury: Status: Acute Plan 28-year-old man with underlying history of schizophrenia, alcohol use, marijuana use?admitted on 04/08/2023 after he was noted to be unresponsive by his girlfriend for unclear amount of time. Patient was transported by EMS to emergency room where he was intubated for hypoxia and respiratory distress.? On further evaluation patient with imaging finding of aspiration and left pneumothorax.? Initial left mid axillary chest tube placed in emergency room with persistence of pneumothorax and questionable subdiaphragmatic placement.? Chest tube removed and replaced with left midclavicular in 3rd intercostal space with air evacuation and improvement in pneumothorax.? Patient also noted to have acute kidney injury and rhabdomyolysis and started on IV fluid hydration. He underwent right gluteal fasciotomy with significant improvement in his CPK and renal function.? However, remains persistently encephalopathic.? MRI on 04/10/2023 with bilateral cerebral anoxic related encephalopathy. ? Evaluated by neurology with prognosis consider to be guarded, but not catastrophic. Overall with slow neurologic improvement, With significant improvement on 04/23/2023. extubated 04/23/2023 and downgraded to the medical floor on 04/25. Limited improvement in responsiveness. 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 medical management at this time -lopressors, asa outpatient workup when appropriate Acute renal failure resolved dvt prophylaxis - Heparin sq Full Code DISPO plan for extensive rehab- brain rehab facility recommended Has [facility] guardian, awaiting amendment to guardianship for right to admit, court date May 26 Requires continued hospitalization for safe disposition. Time Spent With Patient Time: Total time managing care of this patient today ____ minutes. Quality Stroke Does the patient have a stroke diagnosis?: No VTE Prior VTE?: No VTE Risk Level:: Medical - moderate - high VTE Device Contraindication: N/A - Device Ordered VTE Drug Contraindication: N/A - Med Ordered
[2023-05-25] MEDS: Folic Acid 1 MG TABLET PO (09:08)
[2023-05-25] MEDS: Aspirin 81 MG TAB.CHEW PO (09:08)
[2023-05-25] MEDS: Metoprolol Tartrate 12.5 MG HALFTAB PO ×2 (09:08→20:09)
[2023-05-25] MEDS: Sertraline HCL 50 MG TABLET PO (09:08)
[2023-05-25] MEDS: Thiamine HCL 100 MG TABLET PO (09:08)
[2023-05-25] MEDS: Multivitamin TABLET 1 TAB PO (09:08)
[2023-05-25] MEDS: Nystatin Powder 15 GM BOTTLE 1 APPL TOPICAL ×2 (09:09→20:09)
[2023-05-25 11:37] VITALS: BP 121/72; PULSE 70; O2SAT 98
--- NOTE | 2023-05-25 12:17 | MHC.CLN ---
F/U PATIENT WITH STAGE I TO COCCYX. DIET=REGULAR. ENSURE TID PROVIDES ADDITIONAL 1050 KCALS, 60 G PROTEIN. SUPPLEMENT APPROPRIATE TO PROMOTE SKIN INTEGRITY AND INCREASE NUTRITIONAL INTAKE. VARIABLE INTAKE, 0-75%. 1:1 TOTAL ASSIST WITH FEEDING. CONTINUE CURRENT DIET AND SUPPLEMENT. ENCOURAGE INTAKE ABLE. RD TO FOLLOW WEEKLY.
[2023-05-25 15:49] VITALS: BP 119/84; PULSE 77; RESP 18; TEMP 37.3; O2SAT 98
--- NOTE | 2023-05-25 15:56 | MHC.CM.PN ---
PER ROUNDS PT READY FOR DC PTS COURT DATE IS 05/26 TO AMEND GUARDIANSHIUP
[2023-05-25 19:16] VITALS: BP 119/74; PULSE 77; RESP 16; TEMP 36.9; O2SAT 99
[2023-05-25] MEDS: Atorvastatin Calcium 40 MG TABLET PO (20:09)
[2023-05-25] MEDS: OLANZapine 10 MG TABLET PO (20:09)
[2023-05-26 02:54] VITALS: BP 119/76; PULSE 70; RESP 14; TEMP 36.2; O2SAT 97
[2023-05-26] MEDS: Heparin Sodium,Porcine 5,000 UNIT/ML VIAL 5000 UNIT SUBCUT ×3 (04:36→20:51)
[2023-05-26 05:51] VITALS: BMI 21.9
[2023-05-26 07:02] VITALS: BP 118/74; PULSE 77; RESP 16; TEMP 36.7; O2SAT 97
[2023-05-26] MEDS: Multivitamin TABLET 1 TAB PO (08:36)
[2023-05-26] MEDS: Metoprolol Tartrate 12.5 MG HALFTAB PO ×2 (08:36→20:52)
[2023-05-26] MEDS: Sertraline HCL 50 MG TABLET PO (08:37)
[2023-05-26] MEDS: Thiamine HCL 100 MG TABLET PO (08:37)
[2023-05-26] MEDS: Aspirin 81 MG TAB.CHEW PO (08:37)
[2023-05-26] MEDS: Folic Acid 1 MG TABLET PO (08:37)
--- NOTE | 2023-05-26 08:53 | HO.PM.IMPN ---
Subjective Subjective Date of Service: 05/26/23 Interval History: no complaints Physical Exam Vital Signs: Vital Signs: Last Vital Signs Temp 98.0 F 05/26/23 07:02 Pulse 77 05/26/23 07:02 Resp 16 05/26/23 07:02 BP 118/74 05/26/23 07:02 Pulse Ox 97 05/26/23 07:02 O2 Del Method Room Air 05/26/23 07:02 O2 Flow Rate 98 05/17/23 20:00 FiO2 30 04/23/23 11:00 BMI result Body Mass Index 21.9 Const: Other: Constitutional : A wake, alert restin g comfortably Anic teric sclera Neck : Normal inspectio n, Supple Cardiova scular : RRR, no J VD Respiratory : Clear to auscultat ion,? no crackles, wheezes or rhonch i Gastrointestinal :? soft, Normal kristen wel sounds, Non te nder Skin : Warm, Dry Extremities no edema Neurologica l : Face symmetri uriel, speech clear , muscle wasting L Es bilaterally. Objective Data Active Medications Acetaminophen (Acetaminophen Oral Liquid 650 Mg/20.3 Ml Solution) 650 mg PO Q6H PRN PRN Reason: Fever Last Admin: 05/08/23 13:09 Dose: 650 mg Documented By: CLEMENCIA Aspirin (Aspirin 81 Mg Tab.Chew) 81 mg PO DAILY COUNTS INCLUDE 234 BEDS AT THE [facility] Last Admin: 05/26/23 08:37 Dose: 81 mg Documented By: WALLACE Atorvastatin Calcium (Atorvastatin Calcium 40 Mg Tablet) 40 mg PO BEDTIME COUNTS INCLUDE 234 BEDS AT THE [facility] Last Admin: 05/25/23 20:09 Dose: 40 mg Documented By: ANGEL Folic Acid (Folic Acid 1 Mg Tablet) 1 mg PO DAILY COUNTS INCLUDE 234 BEDS AT THE [facility] Last Admin: 05/26/23 08:37 Dose: 1 mg Documented By: WALLACE Heparin Sodium (Porcine) (Heparin Sodium,Porcine 5,000 Unit/Ml Vial) 5,000 unit SUBCUT Q8H COUNTS INCLUDE 234 BEDS AT THE [facility] Last Admin: 05/26/23 04:36 Dose: 5,000 unit Documented By: EMILY Metoprolol Tartrate (Metoprolol Tartrate 12.5 Mg Halftab) 12.5 mg PO BID COUNTS INCLUDE 234 BEDS AT THE [facility]; Protocol Last Admin: 05/26/23 08:36 Dose: 12.5 mg Documented By: WALLACE Multivitamins/Vitamin C (Multivitamin Tablet) 1 tab PO DAILY COUNTS INCLUDE 234 BEDS AT THE [facility] Last Admin: 05/26/23 08:36 Dose: 1 tab Documented By: WALLACE Naloxone HCl (Naloxone Hcl 0.4 Mg/Ml Vial) 0.2 mg IVPUSH Q2M PRN PRN Reason: Excessive sedation or RR < 8 Nystatin (Nystatin Powder 15 Gm Bottle) 1 appl TOPICAL TID COUNTS INCLUDE 234 BEDS AT THE [facility]; Protocol Last Admin: 05/26/23 08:38 Dose: Not Given Documented By: WALLACE Non-Admin Reason: no rash Olanzapine (Olanzapine 10 Mg Tablet) 10 mg PO BEDTIME COUNTS INCLUDE 234 BEDS AT THE [facility] Last Admin: 05/25/23 20:09 Dose: 10 mg Documented By: ANGEL Sertraline HCl (Sertraline Hcl 50 Mg Tablet) 50 mg PO DAILY COUNTS INCLUDE 234 BEDS AT THE [facility] Last Admin: 05/26/23 08:37 Dose: 50 mg Documented By: WALLACE Thiamine HCl (Thiamine Hcl 100 Mg Tablet) 100 mg PO DAILY COUNTS INCLUDE 234 BEDS AT THE [facility] Last Admin: 05/26/23 08:37 Dose: 100 mg Documented By: WALLACE Labs 05/07/23 06:02 05/14/23 20:32 Assessment and Plan (1) Anoxic encephalopathy: Status: Acute (2) Schizophrenia: Status: Acute (3) Myocardial infarction: Status: Acute (4) Acute renal injury: Status: Acute Plan 28-year-old man with underlying history of schizophrenia, alcohol use, marijuana use?admitted on 04/08/2023 after he was noted to be unresponsive by his girlfriend for unclear amount of time. Patient was transported by EMS to emergency room where he was intubated for hypoxia and respiratory distress.? On further evaluation patient with imaging finding of aspiration and left pneumothorax.? Initial left mid axillary chest tube placed in emergency room with persistence of pneumothorax and questionable subdiaphragmatic placement.? Chest tube removed and replaced with left midclavicular in 3rd intercostal space with air evacuation and improvement in pneumothorax.? Patient also noted to have acute kidney injury and rhabdomyolysis and started on IV fluid hydration. He underwent right gluteal fasciotomy with significant improvement in his CPK and renal function.? However, remains persistently encephalopathic.? MRI on 04/10/2023 with bilateral cerebral anoxic related encephalopathy. ? Evaluated by neurology with prognosis consider to be guarded, but not catastrophic. Overall with slow neurologic improvement, With significant improvement on 04/23/2023. extubated 04/23/2023 and downgraded to the medical floor on 04/25. Limited improvement in responsiveness. 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 medical management at this time -lopressors, asa outpatient workup when appropriate Acute renal failure resolved dvt prophylaxis - Heparin sq Full Code DISPO plan for extensive rehab- brain rehab facility recommended Has [facility] guardian, awaiting amendment to guardianship for right to admit, court date May 26 Requires continued hospitalization for safe disposition. Time Spent With Patient Time: Total time managing care of this patient today ____ minutes. Quality Stroke Does the patient have a stroke diagnosis?: No VTE Prior VTE?: No VTE Risk Level:: Medical - moderate - high VTE Device Contraindication: N/A - Device Ordered VTE Drug Contraindication: N/A - Med Ordered
[2023-05-26 15:29] VITALS: BP 117/65; PULSE 72; RESP 16; TEMP 36.6; O2SAT 98
[2023-05-26 19:51] VITALS: BP 124/74; PULSE 75; RESP 16; TEMP 36.9; O2SAT 97
[2023-05-26] MEDS: OLANZapine 10 MG TABLET PO (20:52)
[2023-05-26] MEDS: Atorvastatin Calcium 40 MG TABLET PO (20:52)
[2023-05-26] MEDS: Nystatin Powder 15 GM BOTTLE 1 APPL TOPICAL (20:52)
[2023-05-27 03:06] VITALS: BP 137/84; PULSE 56; RESP 18; TEMP 36.3; O2SAT 97
[2023-05-27 06:00] VITALS: BMI 21.8
[2023-05-27 07:11] VITALS: BP 120/82; PULSE 72; RESP 19; TEMP 36.4; O2SAT 98
[2023-05-27] MEDS: Multivitamin TABLET 1 TAB PO (07:40)
[2023-05-27] MEDS: Metoprolol Tartrate 12.5 MG HALFTAB PO ×2 (07:40→20:34)
[2023-05-27] MEDS: Sertraline HCL 50 MG TABLET PO (07:41)
[2023-05-27] MEDS: Aspirin 81 MG TAB.CHEW PO (07:41)
[2023-05-27] MEDS: Thiamine HCL 100 MG TABLET PO (07:41)
[2023-05-27] MEDS: Folic Acid 1 MG TABLET PO (07:41)
--- NOTE | 2023-05-27 14:27 | P.PNIM_ITS ---
Subjective Subjective Date of Service: 05/27/23 Interval History: More alert and interactive Able to finish sentences and speaks loudly twitching his legs but overall weak No other overnight events Review of Systems Review of Systems: Yes all other systems are reviewed and are negative Physical Exam Vital Signs: Vital Signs: Last Vital Signs Temp 97.6 F 05/27/23 07:11 Pulse 72 05/27/23 07:11 Resp 19 05/27/23 07:11 BP 120/82 05/27/23 07:11 Pulse Ox 98 05/27/23 07:11 O2 Del Method Room Air 05/27/23 07:11 O2 Flow Rate 98 05/17/23 20:00 FiO2 30 04/23/23 11:00 BMI result Body Mass Index 21.8 Const: Other: Constitutional : Awake, not in distress Neck : Normal inspection, Supple Cardiovascular : RRR, no JVP, no lower extremity edema Respiratory : good bilateral air entry, no crackles, wheezes or rhonchi Gastrointestinal: soft, lax, Normal bowel sounds, Non tender Skin : Warm, Dry Neurological : Alert & oriented about self and place, muscle wasting LEs bilaterally, moving USs, weak LEs, Objective Data Active Medications Acetaminophen (Acetaminophen Oral Liquid 650 Mg/20.3 Ml Solution) 650 mg PO Q6H PRN PRN Reason: Fever Last Admin: 05/08/23 13:09 Dose: 650 mg Documented By: CLEMENCIA Aspirin (Aspirin 81 Mg Tab.Chew) 81 mg PO DAILY [facility] Last Admin: 05/27/23 07:41 Dose: 81 mg Documented By: BERTA Atorvastatin Calcium (Atorvastatin Calcium 40 Mg Tablet) 40 mg PO BEDTIME [facility] Last Admin: 05/26/23 20:52 Dose: 40 mg Documented By: ANGEL Folic Acid (Folic Acid 1 Mg Tablet) 1 mg PO DAILY [facility] Last Admin: 05/27/23 07:41 Dose: 1 mg Documented By: BERTA Heparin Sodium (Porcine) (Heparin Sodium,Porcine 5,000 Unit/Ml Vial) 5,000 unit SUBCUT Q8H [facility] Last Admin: 05/27/23 11:28 Dose: Not Given Documented By: BERTA Non-Admin Reason: Patient Refused Metoprolol Tartrate (Metoprolol Tartrate 12.5 Mg Halftab) 12.5 mg PO BID [facility]; Protocol Last Admin: 05/27/23 07:40 Dose: 12.5 mg Documented By: BERTA Multivitamins/Vitamin C (Multivitamin Tablet) 1 tab PO DAILY [facility] Last Admin: 05/27/23 07:40 Dose: 1 tab Documented By: BERTA Naloxone HCl (Naloxone Hcl 0.4 Mg/Ml Vial) 0.2 mg IVPUSH Q2M PRN PRN Reason: Excessive sedation or RR < 8 Nystatin (Nystatin Powder 15 Gm Bottle) 1 appl TOPICAL TID [facility]; Protocol Last Admin: 05/27/23 07:40 Dose: Not Given Documented By: COTEMA Non-Admin Reason: rash healed Olanzapine (Olanzapine 10 Mg Tablet) 10 mg PO BEDTIME [facility] Last Admin: 05/26/23 20:52 Dose: 10 mg Documented By: ANGEL Sertraline HCl (Sertraline Hcl 50 Mg Tablet) 50 mg PO DAILY [facility] Last Admin: 05/27/23 07:41 Dose: 50 mg Documented By: BERTA Thiamine HCl (Thiamine Hcl 100 Mg Tablet) 100 mg PO DAILY [facility] Last Admin: 05/27/23 07:41 Dose: 100 mg Documented By: BERTA Labs 05/07/23 06:02 05/14/23 20:32 Assessment and Plan (1) Anoxic encephalopathy: Status: Acute (2) Physical deconditioning: Status: Acute Plan 28-year-old man with underlying history of schizophrenia, alcohol use, marijuana use?admitted on 04/08/2023 after he was noted to be unresponsive by his girlfriend for unclear amount of time. Patient was transported by EMS to emergency room where he was intubated for hypoxia and respiratory distress.? On further evaluation patient with imaging finding of aspiration and left pneumothorax.? Initial left mid axillary chest tube placed in emergency room with persistence of pneumothorax and questionable subdiaphragmatic placement.? Chest tube removed and replaced with left midclavicular in 3rd intercostal space with air evacuation and improvement in pneumothorax.? Patient also noted to have acute kidney injury and rhabdomyolysis and started on IV fluid hydration. He underwent right gluteal fasciotomy with significant improvement in his CPK and renal function.? However, remains persistently encephalopathic.? MRI on 04/10/2023 with bilateral cerebral anoxic related encephalopathy. ? Evaluated by neurology with prognosis consider to be guarded, but not catastrophic. Overall with slow neurologic improvement, With significant improvement on 04/23/2023. extubated 04/23/2023 and downgraded to the medical floor on 04/25. Limited improvement in responsiveness. .Anoxic brain injury secondary to aspiration pneumonia related to polysubstance overdose with anoxic encephalopathy answering question with full sentences on occasions, interaction with nursing staff,continues to improve continue PT/OT - when appropriate will benefit from more aggressive rehab Schizophrenia in backdrop SHERI sertraline 50mg/olanzapine 10mg HS psych to follow NSTEMI s/p heparin drip.... medical management at this time -lopressors, asa outpatient workup when appropriate Acute renal failure resolved dvt prophylaxis - Heparin sq Full Code DISPO plan for extensive rehab- brain rehab facility recommended Has [facility] guardian, awaiting amendment to guardianship for right to admit, court date was May 26, pending SNF placement. Requires continued hospitalization for safe disposition. Time Spent With Patient Time: Total time managing care of this patient today ____ minutes. Quality Stroke Does the patient have a stroke diagnosis?: No VTE Prior VTE?: No VTE Risk Level:: Medical - moderate - high VTE Device Contraindication: N/A - Device Ordered VTE Drug Contraindication: N/A - Med Ordered
[2023-05-27 15:30] VITALS: BP 140/82; PULSE 73; RESP 20; TEMP 36.4; O2SAT 98
--- NOTE | 2023-05-27 15:32 | MHC.CM.PN ---
per rounds pt s guardianship amended to include placement call placed to [facility] await call back left message for jhoana
--- NOTE | 2023-05-27 17:23 | MHC.SL.SWA ---
Risk of Aspiration Due to: Hx of Recent Extubation Dysphasia Diet Status: No change Liquid Consistency and Strategies for Safe Swallow: Liquid Intake Recommendation: Thin Liquid Intake Strategies: Small Sips Solid Food Consistency: Dietary Recommendations: Regular Additional Modifications to Solid Foods: Oral Medication Intake: Crushed with Puree Please contact the pharmacy regarding appropriate crushable or liquid drug formulations that are available whenever modified delivery is recommended. Compensatory Strategies and Precautions to be Taken for Safe Swallow: Sitting Upright (90 deg) Double Swallow Small Bites and Sips Alternate Liquids/Solids Rate of Ingestion Change Avoid Specific Foods Supervision While Eating and Drinking for Safe Swallow: Total Assistance (1:1) Swallowing Recommended Treatments: Compens. Strategy Educat. Recommendation for Speech: Inpatient Speech Therapy Comment: Upon check-in w/ RN, RN reports pt was observed to pocket food in morning and swallowed only once he was given liquid. Pt seen by UNDRAPED ARTIST MODEL around lunchtime to monitor for toleration of current diet and eating behaviors. With help from RN, pt was repositioned in chair to upright position. Pt relatively communicative upon UNDRAPED ARTIST MODEL arrival; pt stating that he was told that he has to feed himself and cannot receive assistance from others. UNDRAPED ARTIST MODEL assisted patient in pouring drink into cup and putting in straw. UNDRAPED ARTIST MODEL handed patient the cup; he successfully held cup independently and sipped from straw. Pt responded yes when asked, if I give you the spoon will you be able to feed yourself? Patient observed to get minimal shepards pie w/ each attempt to place spoon in bowl. After a few bites, pt observed to put spoon down in bowl and move/stretch his hand. He reported his hand hurt. UNDRAPED ARTIST MODEL offered pt assistance w/ feeding to which he declined. UNDRAPED ARTIST MODEL could not locate HOT STICK MAN; therefore tray was moved out of pt's reach prior to informing RN about pt's need for assistance to finish lunch. Recommend patient continue with REGULAR solids and THIN liquids. Patient continues to require full presence during mealtime from nursing. Encourage independent feeding when possible. Check for pocketing and cue to swallow if needed. Recommend continuation of formal and informal assessment of language and cognition. UNDRAPED ARTIST MODEL to continue to follow Machine Grainer Clinican/Clinical Fellow: No Supervisory Statement: I have reviewed and agree with the student/clinical fellow's documentation: N/A Speech Language Pathologist: Thu Lara M.A., CCC-UNDRAPED ARTIST MODEL
[2023-05-27 19:54] VITALS: BP 133/77; PULSE 70; RESP 20; TEMP 36.3; O2SAT 98
[2023-05-27] MEDS: Heparin Sodium,Porcine 5,000 UNIT/ML VIAL 5000 UNIT SUBCUT (20:28)
[2023-05-27] MEDS: Atorvastatin Calcium 40 MG TABLET PO (20:34)
[2023-05-27] MEDS: OLANZapine 10 MG TABLET PO (20:34)
[2023-05-27] MEDS: Nystatin Powder 15 GM BOTTLE 1 APPL TOPICAL (20:41)
[2023-05-28] MEDS: Heparin Sodium,Porcine 5,000 UNIT/ML VIAL 5000 UNIT SUBCUT (03:06)
[2023-05-28 04:00] VITALS: BP 134/78; PULSE 68; RESP 16; TEMP 36.1; O2SAT 99
[2023-05-28 06:00] VITALS: BMI 21.1
[2023-05-28 07:21] VITALS: BP 127/82; PULSE 52; RESP 18; TEMP 36.4; O2SAT 99
[2023-05-28] MEDS: Thiamine HCL 100 MG TABLET PO (07:57)
[2023-05-28] MEDS: Aspirin 81 MG TAB.CHEW PO (07:57)
[2023-05-28] MEDS: Folic Acid 1 MG TABLET PO (07:58)
[2023-05-28] MEDS: Multivitamin TABLET 1 TAB PO (07:58)
[2023-05-28] MEDS: Metoprolol Tartrate 12.5 MG HALFTAB PO ×2 (07:58→20:51)
[2023-05-28] MEDS: Sertraline HCL 50 MG TABLET PO (07:58)
--- NOTE | 2023-05-28 11:25 | P.PNIM_ITS ---
Subjective Subjective Date of Service: 05/28/23 Interval History: More alert and interactive Able to finish sentences and speaks loudly twitching his legs but overall weak No other overnight events Physical Exam Vital Signs: Vital Signs: Last Vital Signs Temp 97.5 F 05/28/23 07:21 Pulse 52 05/28/23 07:21 Resp 18 05/28/23 07:21 BP 127/82 05/28/23 07:21 Pulse Ox 99 05/28/23 07:21 O2 Del Method Room Air 05/28/23 07:21 O2 Flow Rate 98 05/17/23 20:00 FiO2 30 04/23/23 11:00 BMI result Body Mass Index 21.1 Const: Other: Constitutional : Awake, not in distress Neck : Normal inspection, Supple Cardiovascular : RRR, no JVP, no lower extremity edema Respiratory : good bilateral air entry, no crackles, wheezes or rhonchi Gastrointestinal: soft, lax, Normal bowel sounds, Non tender Skin : Warm, Dry Neurological : Alert & oriented about self and place, muscle wasting LEs bilaterally, moving USs, weak LEs, Objective Data Active Medications Acetaminophen (Acetaminophen Oral Liquid 650 Mg/20.3 Ml Solution) 650 mg PO Q6H PRN PRN Reason: Fever Last Admin: 05/08/23 13:09 Dose: 650 mg Documented By: CLEMENCIA Aspirin (Aspirin 81 Mg Tab.Chew) 81 mg PO DAILY [facility] Last Admin: 05/28/23 07:57 Dose: 81 mg Documented By: BERTA Atorvastatin Calcium (Atorvastatin Calcium 40 Mg Tablet) 40 mg PO BEDTIME [facility] Last Admin: 05/27/23 20:34 Dose: 40 mg Documented By: LO Folic Acid (Folic Acid 1 Mg Tablet) 1 mg PO DAILY [facility] Last Admin: 05/28/23 07:58 Dose: 1 mg Documented By: BERTA Heparin Sodium (Porcine) (Heparin Sodium,Porcine 5,000 Unit/Ml Vial) 5,000 unit SUBCUT Q8H [facility] Last Admin: 05/28/23 11:21 Dose: Not Given Documented By: BERTA Non-Admin Reason: Patient Refused Metoprolol Tartrate (Metoprolol Tartrate 12.5 Mg Halftab) 12.5 mg PO BID [facility]; Protocol Last Admin: 05/28/23 07:58 Dose: 12.5 mg Documented By: BERTA Multivitamins/Vitamin C (Multivitamin Tablet) 1 tab PO DAILY [facility] Last Admin: 05/28/23 07:58 Dose: 1 tab Documented By: BERTA Naloxone HCl (Naloxone Hcl 0.4 Mg/Ml Vial) 0.2 mg IVPUSH Q2M PRN PRN Reason: Excessive sedation or RR < 8 Nystatin (Nystatin Powder 15 Gm Bottle) 1 appl TOPICAL TID [facility]; Protocol Last Admin: 05/28/23 07:58 Dose: Not Given Documented By: BERTA Non-Admin Reason: no longer has rash Olanzapine (Olanzapine 10 Mg Tablet) 10 mg PO BEDTIME [facility] Last Admin: 05/27/23 20:34 Dose: 10 mg Documented By: LO Sertraline HCl (Sertraline Hcl 50 Mg Tablet) 50 mg PO DAILY [facility] Last Admin: 05/28/23 07:58 Dose: 50 mg Documented By: BERTA Thiamine HCl (Thiamine Hcl 100 Mg Tablet) 100 mg PO DAILY [facility] Last Admin: 05/28/23 07:57 Dose: 100 mg Documented By: BERTA Labs 05/07/23 06:02 05/14/23 20:32 Assessment and Plan (1) Anoxic encephalopathy: Status: Acute Plan 28-year-old man with underlying history of schizophrenia, alcohol use, marijuana use?admitted on 04/08/2023 after he was noted to be unresponsive by his girlfriend for unclear amount of time. Patient was transported by EMS to emergency room where he was intubated for hypoxia and respiratory distress.? On further evaluation patient with imaging finding of aspiration and left pneumothorax.? Initial left mid axillary chest tube placed in emergency room with persistence of pneumothorax and questionable subdiaphragmatic placement.? Chest tube removed and replaced with left midclavicular in 3rd intercostal space with air evacuation and improvement in pneumothorax.? Patient also noted to have acute kidney injury and rhabdomyolysis and started on IV fluid hydration. He underwent right gluteal fasciotomy with significant improvement in his CPK and renal function.? However, remains persistently encephalopathic.? MRI on 04/10/2023 with bilateral cerebral anoxic related encephalopathy. ? Evaluated by neurology with prognosis consider to be guarded, but not catastrophic. Overall with slow neurologic improvement, With significant improvement on 04/23/2023. extubated 04/23/2023 and downgraded to the medical floor on 04/25. Limited improvement in responsiveness. .Anoxic brain injury secondary to aspiration pneumonia related to polysubstance overdose with anoxic encephalopathy answering question with full sentences on occasions, interaction with nursing staff,continues to improve continue PT/OT - when appropriate will benefit from more aggressive rehab Schizophrenia in backdrop SHERI sertraline 50mg/olanzapine 10mg HS psych following as needed NSTEMI s/p heparin drip.... medical management at this time -lopressors, asa outpatient workup when appropriate Acute renal failure resolved dvt prophylaxis - Heparin sq Full Code DISPO plan for extensive rehab- brain rehab facility recommended Has [facility] guardian, awaiting amendment to guardianship for right to admit, court date was May 26, pending SNF placement. Requires continued hospitalization for safe disposition. Time Spent With Patient Time: Total time managing care of this patient today ____ minutes. Quality Stroke Does the patient have a stroke diagnosis?: No VTE Prior VTE?: No VTE Risk Level:: Medical - moderate - high VTE Device Contraindication: N/A - Device Ordered VTE Drug Contraindication: N/A - Med Ordered
[2023-05-28] MEDS: Acetaminophen Oral Liquid 650 MG/20.3 ML SOLUTION PO (13:16)
[2023-05-28 15:49] VITALS: BP 121/74; PULSE 77; RESP 20; TEMP 36.4; O2SAT 98
[2023-05-28 20:00] VITALS: BP 126/88; PULSE 76; RESP 20; TEMP 36.9; O2SAT 98
[2023-05-28] MEDS: Nystatin Powder 15 GM BOTTLE 1 APPL TOPICAL (22:17)
[2023-05-29 03:12] VITALS: BP 125/83; PULSE 73; RESP 16; TEMP 36.5; O2SAT 98
[2023-05-29 06:00] VITALS: BMI 21.2
[2023-05-29 08:00] VITALS: BP 124/89; PULSE 74; RESP 18; TEMP 36.6; O2SAT 97
[2023-05-29] MEDS: Thiamine HCL 100 MG TABLET PO (09:26)
[2023-05-29] MEDS: Folic Acid 1 MG TABLET PO (09:26)
[2023-05-29] MEDS: Aspirin 81 MG TAB.CHEW PO (09:26)
[2023-05-29] MEDS: Sertraline HCL 50 MG TABLET PO (09:27)
[2023-05-29] MEDS: Multivitamin TABLET 1 TAB PO (09:27)
[2023-05-29] MEDS: Metoprolol Tartrate 12.5 MG HALFTAB PO ×2 (09:27→22:13)
--- NOTE | 2023-05-29 14:00 | MHC.SL.SOA ---
Referring Provider: Chaim Mccullough MD Reason for Referral: Post-extubation Date of Plan of Treatment:04/24/23 Onset of Symptoms/Illness:04/23/23 Date Treatment Started:04/24/23 Medical Diagnosis:Anoxic encephalopathy, polysubstance abuse, schizophrenia Primary Speech Language Diagnosis:R13.12 Oropharyngeal Phase Dysphagia Secondary Speech Language Diagnosis: Number of Authorized Visits Remaining: Authorization End Date: Reason for Visit:[id number] Individual Treatment Other: Subjective:Patient was seated in chair at bedside having just finished lunch. Patient initially refused to do most language activities, but then participated when initiated by the BULLDOZER MECHANIC. Patient noted to get increasingly agitated/impatient with activities after 15 minutes of work, so session was discontinued. Patient again noted to make perseverative comments about the [employer], with questioning could not provide any insight or reason that he frequently comments on this place (denies working or staying there, denied today that he attended [employer]). Objective: Patient was administered other receptive and expressive elements of the Short form of the BDAE Assessment:On Cookie Theft narrative, patient produced short descriptive sentences about the picture, with some non-contextual (e.g. This is a poor kid. He is stealing cookies. Lon required prompting to look at the picture in the entirety, and short descriptive sentences did not relate connections or cause effect implied in the picture (e.g. did not rise to a narrative). On receptive language tasks, Lon was able to accurately discrimitate words, colors, numbers and letters when given yes/no options (e.g. is not yet able to use upper extremities to point). Lon answered abstract y/n ? with good accuracy and demonstrated 80% accuracy on y/n comprehension questions after short narrative passages. Summary/Conclusion: Lon is demonstrating improvement in his general comprehension skills. Lon is improving in the length and complexity of his verbal responses, but demonstrates continued high level of perceptual confusion, perseveration, and paucity of responses at times. Recommend ongoing assessment of language and cognition. Recommend continued speech/language intervention/therapy at the next level of care. Notes: Recommend ongoing assessment of language and cognition. Recommend continued speech/language intervention/therapy at the next level of care. Plan: Goal # : Lon will participate in formal and informal assessment tasks of receptive language. Status of Goal: Goal # : Lon will participate in formal and informal assessment tasks of expressive langauge. Status of Goal: Goal # : Lon will participate in formal and informal assessment tasks of cognitive function. Status of Goal: Goal # : Status of Goal: Seen by: Graduate/Clinical Fellow: No Supervisory Statement: f_Reg Query Last Value , [facility] Speech Language Pathologist: Malou Jean M.A., CCC-BULLDOZER MECHANIC
--- NOTE | 2023-05-29 14:08 | P.PNIM_ITS ---
Subjective Subjective Date of Service: 05/29/23 Interval History: Seen and evaluated More alert and interactive finishing sentences and speaks loudly doing better with PT\OT but has muscular pain and stiffness No other overnight events Review of Systems Review of Systems: Yes all other systems are reviewed and are negative Physical Exam Vital Signs: Vital Signs: Last Vital Signs Temp 97.8 F 05/29/23 08:00 Pulse 74 05/29/23 08:00 Resp 18 05/29/23 08:00 BP 124/89 05/29/23 08:00 Pulse Ox 97 05/29/23 08:00 O2 Del Method Room Air 05/29/23 08:00 O2 Flow Rate 98 05/17/23 20:00 FiO2 30 04/23/23 11:00 BMI result Body Mass Index 21.2 Const: Other: Constitutional : Awake, not in distress Neck : Normal inspection, Supple Cardiovascular : RRR, no JVP, no lower extremity edema Respiratory : good bilateral air entry, no crackles, wheezes or rhonchi Gastrointestinal: soft, lax, Normal bowel sounds, Non tender Skin : Warm, Dry Neurological : Alert & oriented about self and place, muscle wasting LEs bilaterally, moving USs, weak LEs, Objective Data Active Medications Acetaminophen (Acetaminophen Oral Liquid 650 Mg/20.3 Ml Solution) 650 mg PO Q6H PRN PRN Reason: Fever Last Admin: 05/28/23 13:16 Dose: 650 mg Documented By: BERTA Aspirin (Aspirin 81 Mg Tab.Chew) 81 mg PO DAILY [facility] Last Admin: 05/29/23 09:26 Dose: 81 mg Documented By: ISABELLA Atorvastatin Calcium (Atorvastatin Calcium 40 Mg Tablet) 40 mg PO BEDTIME [facility] Last Admin: 05/28/23 21:00 Dose: Not Given Documented By: LO Non-Admin Reason: Patient Refused Folic Acid (Folic Acid 1 Mg Tablet) 1 mg PO DAILY [facility] Last Admin: 05/29/23 09:26 Dose: 1 mg Documented By: ISABELLA Heparin Sodium (Porcine) (Heparin Sodium,Porcine 5,000 Unit/Ml Vial) 5,000 unit SUBCUT Q8H [facility] Last Admin: 05/29/23 12:26 Dose: Not Given Documented By: ISABELLA Non-Admin Reason: Patient Refused Metoprolol Tartrate (Metoprolol Tartrate 12.5 Mg Halftab) 12.5 mg PO BID [facility]; Protocol Last Admin: 05/29/23 09:27 Dose: 12.5 mg Documented By: ISABELLA Multivitamins/Vitamin C (Multivitamin Tablet) 1 tab PO DAILY [facility] Last Admin: 05/29/23 09:27 Dose: 1 tab Documented By: ISABELLA Naloxone HCl (Naloxone Hcl 0.4 Mg/Ml Vial) 0.2 mg IVPUSH Q2M PRN PRN Reason: Excessive sedation or RR < 8 Nystatin (Nystatin Powder 15 Gm Bottle) 1 appl TOPICAL TID [facility]; Protocol Last Admin: 05/29/23 09:27 Dose: Not Given Documented By: ISABELLA Non-Admin Reason: no longer has rash Olanzapine (Olanzapine 10 Mg Tablet) 10 mg PO BEDTIME [facility] Last Admin: 05/28/23 20:56 Dose: Not Given Documented By: LO Non-Admin Reason: Patient Refused Sertraline HCl (Sertraline Hcl 50 Mg Tablet) 50 mg PO DAILY [facility] Last Admin: 05/29/23 09:27 Dose: 50 mg Documented By: ISABELLA Thiamine HCl (Thiamine Hcl 100 Mg Tablet) 100 mg PO DAILY [facility] Last Admin: 05/29/23 09:26 Dose: 100 mg Documented By: ISABELLA Labs 05/07/23 06:02 05/14/23 20:32 Assessment and Plan (1) Physical deconditioning: Status: Acute (2) Anoxic encephalopathy: Status: Acute Plan 28-year-old man with underlying history of schizophrenia, alcohol use, marijuana use?admitted on 04/08/2023 after he was noted to be unresponsive by his girlfriend for unclear amount of time. Patient was transported by EMS to emergency room where he was intubated for hypoxia and respiratory distress.? On further evaluation patient with imaging finding of aspiration and left pneumothorax.? Initial left mid axillary chest tube placed in emergency room with persistence of pneumothorax and questionable subdiaphragmatic placement.? Chest tube removed and replaced with left midclavicular in 3rd intercostal space with air evacuation and improvement in pneumothorax.? Patient also noted to have acute kidney injury and rhabdomyolysis and started on IV fluid hydration. He underwent right gluteal fasciotomy with significant improvement in his CPK and renal function.? However, remains persistently encephalopathic.? MRI on 04/10/2023 with bilateral cerebral anoxic related encephalopathy. ? Evaluated by neurology with prognosis consider to be guarded, but not catastrophic. Overall with slow neurologic improvement, With significant improvement on 04/23/2023. extubated 04/23/2023 and downgraded to the medical floor on 04/25. Limited improvement in responsiveness. Anoxic brain injury secondary to aspiration pneumonia related to polysubstance overdose with anoxic encephalopathy answering question with full sentences on occasions, interaction with nursing staff,continues to improve continue PT/OT - when appropriate will benefit from more aggressive rehab Baclofen as muscle relaxant Tramadol PRN for pain Schizophrenia in backdrop SHERI sertraline 50mg/olanzapine 10mg HS psych following as needed NSTEMI s/p heparin drip.... medical management at this time -lopressors, asa outpatient workup when appropriate Acute renal failure resolved dvt prophylaxis - Heparin sq Full Code DISPO plan for extensive rehab- brain rehab facility recommended Has [facility] guardian, awaiting amendment to guardianship for right to admit, court date was May 26, pending SNF placement. Requires continued hospitalization for safe disposition. Time Spent With Patient Time: Total time managing care of this patient today ____ minutes. Quality Stroke Does the patient have a stroke diagnosis?: No VTE Prior VTE?: No VTE Risk Level:: Medical - moderate - high VTE Device Contraindication: N/A - Device Ordered VTE Drug Contraindication: N/A - Med Ordered
[2023-05-29 15:34] VITALS: BP 118/72; PULSE 70; RESP 18; TEMP 36.7; O2SAT 96
[2023-05-29] MEDS: traMADoL HCL 50 MG TABLET PO (15:36)
[2023-05-29] MEDS: Baclofen 10 MG TABLET PO ×2 (15:36→22:12)
--- NOTE | 2023-05-29 15:43 | PM.PSYCN ---
History of Present Illness Date of Service: 05/29/23 Chief Complaint: Alteration of mental status, acute respiratory mireya Reason for Consult: Request for follow up med consultation Requesting physician: Seven Munoz Sources of Information: patient interviewed (brief assessment) and chart reviewed HPI Narrative: 28 yo male, history of schizophrenia, alcohol use disorder, cannabis use disorder, admitted 04/08/23 after being found unresponsive. He had an aspiration pneumonia, left pneumothorax, requiring a chest tube, JANNY, mid clavicular, NSTEMI, Rhabdomyolysis. MRI indicated bilateral cerebral anoxic encephalopathy. Olanzapine and Sertraline have been conservatively titrated as pt is known to our team. Medical team is preparing him for rehab admission. Notes reviewed, pt seen with his nursing team. [place] Psych[place] [place] [facility] [place] Multiple hospital stays by history Hx of Blane's guardianship Hx of Depakote and Haldol Dec 100 mg/ml 1 ml, Invega Sustenna, Benztropine, Clonidine, Gabapentin, Olanzapine, Sertraline, Trazodone Medical Evaluation Reviewed: Yes FOR[facility]LY [facility] Medical History Acute renal injury Aspiration pneumonitis Chronic schizophrenia Compartment syndrome of buttock Pneumothorax Pneumothorax, left PTSD (post-traumatic stress disorder) Rhabdomyolysis Schizoaffective disorder Surgical History Hx of hand surgery Family History: Mental illness on father's side along with addiction-father with alcoholism Substance History: admitted 04/08/23 Trauma History: Significant trauma by history Diagnostics Vital Signs (24Hr): Vital Signs - 24 hr 05/28/23 15:49 05/28/23 20:00 05/29/23 03:12 Temperature 97.5 F 98.4 F 97.7 F Pulse Rate 77 76 73 Respiratory Rate 20 20 16 Blood Pressure 121/74 126/88 125/83 Pulse Oximetry 98 98 98 Oxygen Delivery Method Room Air Room Air Room Air 05/29/23 08:00 05/29/23 15:34 Temperature 97.8 F 98.1 F Pulse Rate 74 70 Respiratory Rate 18 18 Blood Pressure 124/89 118/72 Pulse Oximetry 97 96 Oxygen Delivery Method Room Air Room Air BMI result Body Mass Index 21.2 Labs 05/07/23 06:02 05/14/23 20:32 Imaging Radiology Impressions: ITS Impressions Chest X-Ray 04/08/23 08:41 IMPRESSION: 1. New ETT catheter in good position. 2. Diffuse right lung and left mid and lower lung patchy opacity likely pulmonary edema or infiltrate. Head CT 04/08/23 09:53 IMPRESSION: No acute intracranial process seen. There is no acute fracture or dislocation cervical spine. There is mild straightening of cervical lordosis likely related to spasm or positional. There is endotracheal tube with its tip in the mid trachea. There is a right apical/upper lobe moderate parenchymal contusion/edema or infiltrate. Abdomen/Pelvis CT 04/08/23 10:08 IMPRESSION: Extended dependent bilateral infiltrates question aspiration. Left pneumothorax approximately 15-20% without shift. There are no rib fractures seen. No acute process seen in the abdomen or pelvis. Endotracheal tube and a Steen's catheter are in satisfactory position. Cervical Spine CT 04/08/23 10:08 IMPRESSION: No acute intracranial process seen. There is no acute fracture or dislocation cervical spine. There is mild straightening of cervical lordosis likely related to spasm or positional. There is endotracheal tube with its tip in the mid trachea. There is a right apical/upper lobe moderate parenchymal contusion/edema or infiltrate. Chest CT 04/08/23 10:08 IMPRESSION: Extended dependent bilateral infiltrates question aspiration. Left pneumothorax approximately 15-20% without shift. There are no rib fractures seen. No acute process seen in the abdomen or pelvis. Endotracheal tube and a Steen's catheter are in satisfactory position. Chest X-Ray 04/08/23 12:34 IMPRESSION: 1. Persistent left-sided pneumothorax with chest tube in place. It is difficult to tell if the chest tube is in the pleural space. Recommend seeing the chest tube is fluctuating with respirations. If this cannot be ascertained, a CT scan could always be performed to confirm placement. 2. Diffuse right-sided airspace disease with some improvement in the left-sided airspace disease. Chest X-Ray 04/08/23 14:26 IMPRESSION: Persistent left-sided pneumothorax with a chest tube along the left base. The exact tip of chest tube tip is not known since there is no reduction in the pneumothorax. A CT chest without contrast may be helpful. No change in bilateral interstitial infiltrates or edema. Chest X-Ray 04/08/23 15:15 IMPRESSION: Left basilar chest tube has been removed. There is a new chest tube and left midlung. There is near complete resolution of left pneumothorax. Stable endotracheal tube and bilateral lung infiltrates. Chest X-Ray 04/08/23 19:55 IMPRESSION: 1. Endotracheal tube terminates at 4.7 cm above the cory. 2. Right IJ CVC catheter with the tip projecting over the cavoatrial junction. 3. No significant residual pneumothorax. 4. Stable right greater than left airspace opacities. Chest X-Ray 04/09/23 21:42 IMPRESSION: 1. Support lines and catheters are in satisfactory position. 2. Patchy opacity right upper lobe, right lower lobe and left lower lobe infiltrates are unchanged.. Brain MRI 04/10/23 16:22 IMPRESSION: There are symmetrically distributed ill-defined signal changes involving the centrum semiovale of both cerebral hemispheres. This pattern of disease can be seen in the setting of delayed reversible post hypoxic leukoencephalopathy. Other toxic or metabolic etiologies are not definitively excluded. No intracranial mass effect or hydrocephalus. Chest X-Ray 04/13/23 13:56 IMPRESSION: 1. Significant improvement in right upper lobe infiltrate with minimal residual changes seen in the right lung base. 2. New enteric tube tip is below the diaphragm in stomach. 3. No change in support lines and catheters. Chest X-Ray 04/14/23 05:06 IMPRESSION: Nasogastric tube tip not definitely seen. Otherwise satisfactory position of support lines and tubes. No pneumothorax. Improving airspace disease. Chest X-Ray 04/18/23 09:07 IMPRESSION: Status post left chest tube removal with no pneumothorax identified. Improving right lung disease. Chest X-Ray 04/18/23 09:55 IMPRESSION: Endotracheal tube approximately 3.5 cm above the cory. Interval development of retrocardiac density likely related to left lower lobe atelectasis. Persistent right perihilar disease. No pneumothorax appreciated. Ankle X-Ray 04/27/23 13:00 IMPRESSION: Unremarkable examination. Foot X-Ray 04/27/23 13:00 IMPRESSION: Unremarkable examination. Venous Duplex 04/29/23 17:13 IMPRESSION: No DVT demonstrated in the right lower extremity. Mental Status Exam Mental Status Exam Narrative: Pt is in bed. He is awake, alert, attentive, appears improved from last visit. He speaks briefly, clearly, is loud and responds that current meds are intact. He states he wants no more and references addictive to meds discussed (Sertraline). Patient Appearance: Appropriate Patient Orientation: Person and Situation Level of Consciousness: Awake and Alert Patient Behavior: Appropriate, Talkative, Cooperative and Good Eye Contact Mood Description: Constricted Affect Description: Constricted Patient Cognition Impaired: Yes Ability to Follow Directions: Fair Speech Pattern: Clear, Impoverished and Spontaneous Speech Thought Process: Slowed Thinking Thought Content: positive for Salley Judgement: Poor Medications Medications Current Medications Acetaminophen (Acetaminophen Oral Liquid 650 Mg/20.3 Ml Solution) 650 mg PO Q6H PRN PRN Reason: Fever Last Admin: 05/28/23 13:16 Dose: 650 mg Aspirin (Aspirin 81 Mg Tab.Chew) 81 mg PO DAILY [facility] Last Admin: 05/29/23 09:26 Dose: 81 mg Atorvastatin Calcium (Atorvastatin Calcium 40 Mg Tablet) 40 mg PO BEDTIME [facility] Last Admin: 05/28/23 21:00 Dose: Not Given Baclofen (Baclofen 10 Mg Tablet) 10 mg PO TID [facility] Last Admin: 05/29/23 15:36 Dose: 10 mg Folic Acid (Folic Acid 1 Mg Tablet) 1 mg PO DAILY [facility] Last Admin: 05/29/23 09:26 Dose: 1 mg Heparin Sodium (Porcine) (Heparin Sodium,Porcine 5,000 Unit/Ml Vial) 5,000 unit SUBCUT Q8H [facility] Last Admin: 05/29/23 12:26 Dose: Not Given Metoprolol Tartrate (Metoprolol Tartrate 12.5 Mg Halftab) 12.5 mg PO BID [facility]; Protocol Last Admin: 05/29/23 09:27 Dose: 12.5 mg Multivitamins/Vitamin C (Multivitamin Tablet) 1 tab PO DAILY [facility] Last Admin: 05/29/23 09:27 Dose: 1 tab Naloxone HCl (Naloxone Hcl 0.4 Mg/Ml Vial) 0.2 mg IVPUSH Q2M PRN PRN Reason: Excessive sedation or RR < 8 Nystatin (Nystatin Powder 15 Gm Bottle) 1 appl TOPICAL TID [facility]; Protocol Last Admin: 05/29/23 15:01 Dose: Not Given Olanzapine (Olanzapine 10 Mg Tablet) 10 mg PO BEDTIME [facility] Last Admin: 05/28/23 20:56 Dose: Not Given Sertraline HCl (Sertraline Hcl 50 Mg Tablet) 50 mg PO DAILY [facility] Last Admin: 05/29/23 09:27 Dose: 50 mg Thiamine HCl (Thiamine Hcl 100 Mg Tablet) 100 mg PO DAILY [facility] Last Admin: 05/29/23 09:26 Dose: 100 mg Tramadol HCl (Tramadol Hcl 50 Mg Tablet) 50 mg PO Q6H PRN PRN Reason: Pain, Moderate(Pain Scale 4-6) Last Admin: 05/29/23 15:36 Dose: 50 mg Allergies Allergies Allergy/AdvReac Type Severity Reaction Status Date / Time Penicillins [PCN] Allergy Unknown UNKNOWN Verified 12/12/21 23:33 Assessment & Plan Assessment & Plan (1) Schizophrenia: Qualifiers: Schizophrenia type: unspecified Qualified Code(s): F20.9 - Schizophrenia, unspecified Status: Acute Code(s): F20.9 - Schizophrenia, unspecified (2) Polysubstance abuse: Status: Acute Code(s): F19.10 - Other psychoactive substance abuse, uncomplicated Plan 28 yo male, history of schizophrenia, alcohol use disorder, cannabis use disorder found unresponsive on 04/08/23 with subsequent medical sequelae. Olanzapine and Sertraline have been slowly re-introduced and tolerated. Pt presents today having made significant progress since last seen on 05/13/23. He presents as more alert, attentive, speech is clearer although minimal. He is more attentive to his environment and mood appears in our brief meeting to be improved from the baseline that we know him. Plan: A1C, Lipid Panel- (olanzapine use) Continue current regime. No increases suggested today. Would continue at Sertraline 50 mg daily. If further adjustments are needed would consider titration of Olanzapine to assist with clarity, mood stabilization and increased cognitive capability. Total time managing care of this patient today ____ minutes. Informed Consent: further education needed
[2023-05-29 20:00] VITALS: BP 115/78; PULSE 64; RESP 18; TEMP 36.8; O2SAT 98
[2023-05-29] MEDS: Heparin Sodium,Porcine 5,000 UNIT/ML VIAL 5000 UNIT SUBCUT (22:05)
[2023-05-29] MEDS: Nystatin Powder 15 GM BOTTLE 1 APPL TOPICAL (22:12)
[2023-05-29] MEDS: Atorvastatin Calcium 40 MG TABLET PO (22:13)
[2023-05-29] MEDS: OLANZapine 10 MG TABLET PO (22:13)
[2023-05-30 03:22] VITALS: BP 153/84; PULSE 52; RESP 16; TEMP 36.1; O2SAT 98
[2023-05-30 06:44] LABS: Anion Gap 15 (12-20); Blood Urea Nitrogen 5 mg/dL (9-16); Calcium 10.2 mg/dL (8.4-10.2); Carbon Dioxide 24 mmol/L (22-29); Chloride 107 mmol/L (96-108); Creatinine Clr Calc Pharmacy 179.5; Estimated Glomerular Filt Rate > 60; Glucose Random 97 mg/dL (60-115); Potassium 3.6 mmol/L (3.3-5.1); Sodium 142 mmol/L (135-145)
[2023-05-30 07:56] VITALS: BP 133/79; PULSE 64; RESP 16; TEMP 36.2; O2SAT 95
[2023-05-30] MEDS: Sertraline HCL 50 MG TABLET PO (08:52)
[2023-05-30] MEDS: Aspirin 81 MG TAB.CHEW PO (08:52)
[2023-05-30] MEDS: Baclofen 10 MG TABLET PO ×3 (08:52→22:14)
[2023-05-30] MEDS: Metoprolol Tartrate 12.5 MG HALFTAB PO ×2 (08:52→22:15)
[2023-05-30] MEDS: Thiamine HCL 100 MG TABLET PO (08:52)
[2023-05-30] MEDS: Folic Acid 1 MG TABLET PO (08:52)
[2023-05-30] MEDS: Multivitamin TABLET 1 TAB PO (08:52)
--- NOTE | 2023-05-30 10:10 | P.PNIM_ITS ---
Subjective Subjective Date of Service: 05/30/23 Interval History: Seen and evaluated laying comfortable in his bed improved mentation and speech doing better with PT\OT but has muscular pain and stiffness No other overnight events Review of Systems Review of Systems: Yes all other systems are reviewed and are negative Physical Exam Vital Signs: Vital Signs: Last Vital Signs Temp 97.1 F 05/30/23 07:56 Pulse 64 05/30/23 07:56 Resp 16 05/30/23 07:56 BP 133/79 05/30/23 07:56 Pulse Ox 95 05/30/23 07:56 O2 Del Method Room Air 05/30/23 07:56 O2 Flow Rate 98 05/17/23 20:00 FiO2 30 04/23/23 11:00 BMI result Body Mass Index 21.2 Const: Other: Constitutional : Awake, not in distress Neck : Normal inspection, Supple Cardiovascular : RRR, no JVP, no lower extremity edema Respiratory : good bilateral air entry, no crackles, wheezes or rhonchi Gastrointestinal: soft, lax, Normal bowel sounds, Non tender Skin : Warm, Dry Neurological : Alert & oriented about self and place, muscle wasting LEs bilaterally, moving USs, weak LEs, Objective Data Active Medications Acetaminophen (Acetaminophen Oral Liquid 650 Mg/20.3 Ml Solution) 650 mg PO Q6H PRN PRN Reason: Fever Last Admin: 05/28/23 13:16 Dose: 650 mg Documented By: COTEMA Aspirin (Aspirin 81 Mg Tab.Chew) 81 mg PO DAILY [facility] Last Admin: 05/30/23 08:52 Dose: 81 mg Documented By: RICKEY Atorvastatin Calcium (Atorvastatin Calcium 40 Mg Tablet) 40 mg PO BEDTIME [facility] Last Admin: 05/29/23 22:13 Dose: 40 mg Documented By: JOB Baclofen (Baclofen 10 Mg Tablet) 10 mg PO TID [facility] Last Admin: 05/30/23 08:52 Dose: 10 mg Documented By: RICKEY Folic Acid (Folic Acid 1 Mg Tablet) 1 mg PO DAILY [facility] Last Admin: 05/30/23 08:52 Dose: 1 mg Documented By: RICKEY Heparin Sodium (Porcine) (Heparin Sodium,Porcine 5,000 Unit/Ml Vial) 5,000 unit SUBCUT Q8H [facility] Last Admin: 05/30/23 04:03 Dose: Not Given Documented By: JOB Non-Admin Reason: Patient Refused Metoprolol Tartrate (Metoprolol Tartrate 12.5 Mg Halftab) 12.5 mg PO BID [facility]; Protocol Last Admin: 05/30/23 08:52 Dose: 12.5 mg Documented By: RICKEY Multivitamins/Vitamin C (Multivitamin Tablet) 1 tab PO DAILY [facility] Last Admin: 05/30/23 08:52 Dose: 1 tab Documented By: RICKEY Naloxone HCl (Naloxone Hcl 0.4 Mg/Ml Vial) 0.2 mg IVPUSH Q2M PRN PRN Reason: Excessive sedation or RR < 8 Nystatin (Nystatin Powder 15 Gm Bottle) 1 appl TOPICAL TID [facility]; Protocol Last Admin: 05/30/23 08:53 Dose: Not Given Documented By: RICKEY Non-Admin Reason: resolved Olanzapine (Olanzapine 10 Mg Tablet) 10 mg PO BEDTIME [facility] Last Admin: 05/29/23 22:13 Dose: 10 mg Documented By: JOB Sertraline HCl (Sertraline Hcl 50 Mg Tablet) 50 mg PO DAILY [facility] Last Admin: 05/30/23 08:52 Dose: 50 mg Documented By: RICKEY Thiamine HCl (Thiamine Hcl 100 Mg Tablet) 100 mg PO DAILY [facility] Last Admin: 05/30/23 08:52 Dose: 100 mg Documented By: RICKEY Tramadol HCl (Tramadol Hcl 50 Mg Tablet) 50 mg PO Q6H PRN PRN Reason: Pain, Moderate(Pain Scale 4-6) Last Admin: 05/29/23 15:36 Dose: 50 mg Documented By: ISABELLA Labs 05/07/23 06:02 05/30/23 05:34 Labs: Laboratory Results - last 24 hr 05/30/23 05:34 Anion Gap 15 Estim Creat Clear Calc 179.5 Estimated GFR > 60 Random Glucose 97 Calcium 10.2 D Assessment and Plan (1) Anoxic encephalopathy: Status: Acute Plan 28-year-old man with underlying history of schizophrenia, alcohol use, marijuana use?admitted on 04/08/2023 after he was noted to be unresponsive by his girlfriend for unclear amount of time. Patient was transported by EMS to emergency room where he was intubated for hypoxia and respiratory distress.? On further evaluation patient with imaging finding of aspiration and left pneumothorax.? Initial left mid axillary chest tube placed in emergency room with persistence of pneumothorax and questionable subdiaphragmatic placement.? Chest tube removed and replaced with left midclavicular in 3rd intercostal space with air evacuation and improvement in pneumothorax.? Patient also noted to have acute kidney injury and rhabdomyolysis and started on IV fluid hydration. He underwent right gluteal fasciotomy with significant improvement in his CPK and r enal function.? However, remains persistently encephalopathic.? MRI on 04/10/2023 with bilateral cerebral anoxic related encephalopathy. ? Evaluated by neurology with prognosis consider to be guarded, but not catastrophic. Overall with slow neurologic improvement, With significant improvement on 04/23/2023. extubated 04/23/2023 and downgraded to the medical floor on 04/25. Limited improvement in responsiveness. Anoxic brain injury secondary to aspiration pneumonia related to polysubstance overdose with anoxic encephalopathy answering question with full sentences on occasions, interaction with nursing staff,continues to improve continue PT/OT - when appropriate will benefit from more aggressive rehab Baclofen as muscle relaxant Tramadol PRN for pain Schizophrenia in backdrop SHERI sertraline 50mg/olanzapine 10mg HS psych following as needed NSTEMI s/p heparin drip.... medical management at this time -lopressors, asa outpatient workup when appropriate Acute renal failure resolved dvt prophylaxis - Heparin sq Full Code DISPO plan for extensive rehab- brain rehab facility recommended Has [facility] guardian, awaiting amendment to guardianship for right to admit, court date was May 26, pending SNF placement. Requires continued hospitalization for safe disposition. Time Spent With Patient Time: Total time managing care of this patient today ____ minutes. Quality Stroke Does the patient have a stroke diagnosis?: No VTE Prior VTE?: No VTE Risk Level:: Medical - moderate - high VTE Device Contraindication: N/A - Device Ordered VTE Drug Contraindication: N/A - Med Ordered
[2023-05-30 15:19] VITALS: BP 119/51; PULSE 82; RESP 18; TEMP 36.9; O2SAT 98
[2023-05-30] MEDS: traMADoL HCL 50 MG TABLET PO (16:45)
[2023-05-30 20:00] VITALS: BP 112/74; PULSE 62; RESP 18; TEMP 36.6; O2SAT 97
[2023-05-30] MEDS: Atorvastatin Calcium 40 MG TABLET PO (22:15)
[2023-05-30] MEDS: Heparin Sodium,Porcine 5,000 UNIT/ML VIAL 5000 UNIT SUBCUT (22:15)
[2023-05-30] MEDS: OLANZapine 10 MG TABLET PO (22:32)
[2023-05-31 03:46] VITALS: BP 118/69; PULSE 59; RESP 16; TEMP 36.4; O2SAT 97
[2023-05-31] MEDS: Heparin Sodium,Porcine 5,000 UNIT/ML VIAL 5000 UNIT SUBCUT ×2 (04:04→12:09)
[2023-05-31 07:10] VITALS: BP 128/74; PULSE 62; RESP 16; TEMP 37.1; O2SAT 98
[2023-05-31] MEDS: Multivitamin TABLET 1 TAB PO (08:03)
[2023-05-31] MEDS: Metoprolol Tartrate 12.5 MG HALFTAB PO ×2 (08:03→21:08)
[2023-05-31] MEDS: Thiamine HCL 100 MG TABLET PO (08:03)
[2023-05-31] MEDS: Sertraline HCL 50 MG TABLET PO (08:03)
[2023-05-31] MEDS: Aspirin 81 MG TAB.CHEW PO (08:03)
[2023-05-31] MEDS: Baclofen 10 MG TABLET PO ×3 (08:03→21:07)
[2023-05-31] MEDS: Folic Acid 1 MG TABLET PO (08:03)
--- NOTE | 2023-05-31 08:57 | HO.PM.IMPN ---
Subjective Subjective Date of Service: 05/31/23 Interval History: Seen and evaluated Sitting comfortable in his bed improved mentation and speech doing better with PT\OT Review of Systems Review of Systems: Yes all other systems are reviewed and are negative Physical Exam Vital Signs: Vital Signs: Last Vital Signs Temp 98.8 F 05/31/23 07:10 Pulse 62 05/31/23 07:10 Resp 16 05/31/23 07:10 BP 128/74 05/31/23 07:10 Pulse Ox 98 05/31/23 07:10 O2 Del Method Room Air 05/31/23 07:10 O2 Flow Rate 98 05/17/23 20:00 FiO2 30 04/23/23 11:00 BMI result Body Mass Index 21.2 Const: Other: Constitutional : Awake, not in distress Neck : Normal inspection, Supple Cardiovascular : RRR, no JVP, no lower extremity edema Respiratory : good bilateral air entry, no crackles, wheezes or rhonchi Gastrointestinal: soft, lax, Normal bowel sounds, Non tender Skin : Warm, Dry Neurological : Alert & oriented about self and place, muscle wasting LEs bilaterally, moving USs, weak LEs, Objective Data Active Medications Acetaminophen (Acetaminophen Oral Liquid 650 Mg/20.3 Ml Solution) 650 mg PO Q6H PRN PRN Reason: Fever Last Admin: 05/28/23 13:16 Dose: 650 mg Documented By: COTEMA Aspirin (Aspirin 81 Mg Tab.Chew) 81 mg PO DAILY [facility] Last Admin: 05/31/23 08:03 Dose: 81 mg Documented By: RICKEY Atorvastatin Calcium (Atorvastatin Calcium 40 Mg Tablet) 40 mg PO BEDTIME [facility] Last Admin: 05/30/23 22:15 Dose: 40 mg Documented By: JOB Baclofen (Baclofen 10 Mg Tablet) 10 mg PO TID [facility] Last Admin: 05/31/23 08:03 Dose: 10 mg Documented By: RICKEY Folic Acid (Folic Acid 1 Mg Tablet) 1 mg PO DAILY [facility] Last Admin: 05/31/23 08:03 Dose: 1 mg Documented By: RICKEY Heparin Sodium (Porcine) (Heparin Sodium,Porcine 5,000 Unit/Ml Vial) 5,000 unit SUBCUT Q8H [facility] Last Admin: 05/31/23 04:04 Dose: 5,000 unit Documented By: JOB Metoprolol Tartrate (Metoprolol Tartrate 12.5 Mg Halftab) 12.5 mg PO BID [facility]; Protocol Last Admin: 05/31/23 08:03 Dose: 12.5 mg Documented By: RICKEY Multivitamins/Vitamin C (Multivitamin Tablet) 1 tab PO DAILY [facility] Last Admin: 05/31/23 08:03 Dose: 1 tab Documented By: RICKEY Naloxone HCl (Naloxone Hcl 0.4 Mg/Ml Vial) 0.2 mg IVPUSH Q2M PRN PRN Reason: Excessive sedation or RR < 8 Nystatin (Nystatin Powder 15 Gm Bottle) 1 appl TOPICAL TID [facility]; Protocol Last Admin: 05/31/23 08:06 Dose: Not Given Documented By: RICKEY Non-Admin Reason: resolved Olanzapine (Olanzapine 10 Mg Tablet) 10 mg PO BEDTIME [facility] Last Admin: 05/30/23 22:32 Dose: 10 mg Documented By: JOB Sertraline HCl (Sertraline Hcl 50 Mg Tablet) 50 mg PO DAILY [facility] Last Admin: 05/31/23 08:03 Dose: 50 mg Documented By: RICKEY Thiamine HCl (Thiamine Hcl 100 Mg Tablet) 100 mg PO DAILY [facility] Last Admin: 05/31/23 08:03 Dose: 100 mg Documented By: RICKEY Tramadol HCl (Tramadol Hcl 50 Mg Tablet) 50 mg PO Q6H PRN PRN Reason: Pain, Moderate(Pain Scale 4-6) Last Admin: 05/30/23 16:45 Dose: 50 mg Documented By: RICKEY Labs 05/07/23 06:02 05/30/23 05:34 Assessment and Plan (1) Anoxic encephalopathy: Status: Acute Plan 28-year-old man with underlying history of schizophrenia, alcohol use, marijuana use?admitted on 04/08/2023 after he was noted to be unresponsive by his girlfriend for unclear amount of time. Patient was transported by EMS to emergency room where he was intubated for hypoxia and respiratory distress.? On further evaluation patient with imaging finding of aspiration and left pneumothorax.? Initial left mid axillary chest tube placed in emergency room with persistence of pneumothorax and questionable subdiaphragmatic placement.? Chest tube removed and replaced with left midclavicular in 3rd intercostal space with air evacuation and improvement in pneumothorax.? Patient also noted to have acute kidney injury and rhabdomyolysis and started on IV fluid hydration. He underwent right gluteal fasciotomy with significant improvement in his CPK and renal function.? However, remains persistently encephalopathic.? MRI on 04/10/2023 with bilateral cerebral anoxic related encephalopathy. ? Evaluated by neurology with prognosis consider to be guarded, but not catastrophic. Overall with slow neurologic improvement, With significant improvement on 04/23/2023. extubated 04/23/2023 and downgraded to the medical floor on 04/25. Limited improvement in responsiveness. 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 medical management at this time -lopressors, asa outpatient workup when appropriate Acute renal failure resolved dvt prophylaxis - Heparin sq Full Code DISPO plan for extensive rehab- brain rehab facility recommended Has [facility] guardian, pending SNF placement. Requires continued hospitalization for safe disposition. Time Spent With Patient Time: Total time managing care of this patient today ____ minutes. Quality Stroke Does the patient have a stroke diagnosis?: No VTE Prior VTE?: No VTE Risk Level:: Medical - moderate - high VTE Device Contraindication: N/A - Device Ordered VTE Drug Contraindication: N/A - Med Ordered
[2023-05-31 15:24] VITALS: BP 129/74; PULSE 74; RESP 16; TEMP 37.2; O2SAT 97
[2023-05-31 19:35] VITALS: BP 127/81; PULSE 70; RESP 18; TEMP 36.6; O2SAT 98
[2023-05-31] MEDS: OLANZapine 10 MG TABLET PO (21:08)
[2023-05-31] MEDS: Atorvastatin Calcium 40 MG TABLET PO (21:08)
[2023-06-01 04:00] VITALS: BP 115/75; PULSE 65; RESP 18; TEMP 36.5; O2SAT 97
[2023-06-01 06:00] VITALS: BMI 21.8
[2023-06-01 07:46] VITALS: BP 121/77; PULSE 65; RESP 18; TEMP 36.5; O2SAT 98
[2023-06-01] MEDS: Multivitamin TABLET 1 TAB PO (08:01)
[2023-06-01] MEDS: Sertraline HCL 50 MG TABLET PO (08:01)
[2023-06-01] MEDS: Folic Acid 1 MG TABLET PO (08:01)
[2023-06-01] MEDS: Thiamine HCL 100 MG TABLET PO (08:01)
[2023-06-01] MEDS: Metoprolol Tartrate 12.5 MG HALFTAB PO ×2 (08:01→20:55)
[2023-06-01] MEDS: Baclofen 10 MG TABLET PO ×3 (08:02→20:55)
[2023-06-01] MEDS: Aspirin 81 MG TAB.CHEW PO (08:02)
--- NOTE | 2023-06-01 11:48 | MHC.CLN ---
F/U DIET=REGULAR. ENSURE TID PROVIDES ADDITIONAL 1050 KCALS, 60 G PROTEIN. SUPPLEMENT APPROPRIATE TO PROMOTE SKIN INTEGRITY AND INCREASE NUTRITIONAL INTAKE. STAGE II COCCYX WOUND HEALED. INTAKE X MOST RECENT 4 DAYS USUALLY 50-100%. CONTINUE CURRENT DIET AND SUPPLEMENT. ENCOURAGE INTAKE ABLE. RD TO FOLLOW WEEKLY.
[2023-06-01] MEDS: traMADoL HCL 50 MG TABLET PO (12:08)
--- NOTE | 2023-06-01 12:40 | HO.PM.IMPN ---
Subjective Subjective Date of Service: 06/01/23 Interval History: Seen and evaluated Sitting comfortable in his bed improved mentation and speech, moving lower extremities much better than before doing better with PT\OT Review of Systems Review of Systems: Yes all other systems are reviewed and are negative Physical Exam Vital Signs: Vital Signs: Last Vital Signs Temp 97.7 F 06/01/23 07:46 Pulse 65 06/01/23 07:46 Resp 18 06/01/23 07:46 BP 121/77 06/01/23 07:46 Pulse Ox 98 06/01/23 07:46 O2 Del Method Room Air 06/01/23 07:46 O2 Flow Rate 98 05/17/23 20:00 FiO2 30 04/23/23 11:00 BMI result Body Mass Index 21.2 Const: Other: Constitutional : Awake, not in distress Neck : Normal inspection, Supple Cardiovascular : RRR, no JVP, no lower extremity edema Respiratory : good bilateral air entry, no crackles, wheezes or rhonchi Gastrointestinal: soft, lax, Normal bowel sounds, Non tender Skin : Warm, Dry Neurological : Alert & oriented about self and place, muscle wasting LEs bilaterally, moving USs, weak LEs, Objective Data Active Medications Acetaminophen (Acetaminophen Oral Liquid 650 Mg/20.3 Ml Solution) 650 mg PO Q6H PRN PRN Reason: Fever Last Admin: 05/28/23 13:16 Dose: 650 mg Documented By: COTEMA Aspirin (Aspirin 81 Mg Tab.Chew) 81 mg PO DAILY [facility] Last Admin: 06/01/23 08:02 Dose: 81 mg Documented By: ISABELLA Atorvastatin Calcium (Atorvastatin Calcium 40 Mg Tablet) 40 mg PO BEDTIME [facility] Last Admin: 05/31/23 21:08 Dose: 40 mg Documented By: DEAN Baclofen (Baclofen 10 Mg Tablet) 10 mg PO TID [facility] Last Admin: 06/01/23 08:02 Dose: 10 mg Documented By: ISABELLA Folic Acid (Folic Acid 1 Mg Tablet) 1 mg PO DAILY [facility] Last Admin: 06/01/23 08:01 Dose: 1 mg Documented By: ISABELLA Heparin Sodium (Porcine) (Heparin Sodium,Porcine 5,000 Unit/Ml Vial) 5,000 unit SUBCUT Q8H [facility] Last Admin: 06/01/23 11:47 Dose: Not Given Documented By: ISABELLA Non-Admin Reason: Patient Refused Metoprolol Tartrate (Metoprolol Tartrate 12.5 Mg Halftab) 12.5 mg PO BID [facility]; Protocol Last Admin: 06/01/23 08:01 Dose: 12.5 mg Documented By: ISABELLA Multivitamins/Vitamin C (Multivitamin Tablet) 1 tab PO DAILY [facility] Last Admin: 06/01/23 08:01 Dose: 1 tab Documented By: ISABELLA Naloxone HCl (Naloxone Hcl 0.4 Mg/Ml Vial) 0.2 mg IVPUSH Q2M PRN PRN Reason: Excessive sedation or RR < 8 Nystatin (Nystatin Powder 15 Gm Bottle) 1 appl TOPICAL TID [facility]; Protocol Last Admin: 06/01/23 08:02 Dose: Not Given Documented By: ISABELLA Non-Admin Reason: resolved Olanzapine (Olanzapine 10 Mg Tablet) 10 mg PO BEDTIME [facility] Last Admin: 05/31/23 21:08 Dose: 10 mg Documented By: DEAN Sertraline HCl (Sertraline Hcl 50 Mg Tablet) 50 mg PO DAILY [facility] Last Admin: 06/01/23 08:01 Dose: 50 mg Documented By: ISABELLA Thiamine HCl (Thiamine Hcl 100 Mg Tablet) 100 mg PO DAILY [facility] Last Admin: 06/01/23 08:01 Dose: 100 mg Documented By: ISABELLA Tramadol HCl (Tramadol Hcl 50 Mg Tablet) 50 mg PO Q6H PRN PRN Reason: Pain, Moderate(Pain Scale 4-6) Last Admin: 06/01/23 12:08 Dose: 50 mg Documented By: ISABELLA Labs 05/07/23 06:02 05/30/23 05:34 Assessment and Plan (1) Anoxic encephalopathy: Status: Acute (2) Physical deconditioning: Status: Acute Plan 28-year-old man with underlying history of schizophrenia, alcohol use, marijuana use?admitted on 04/08/2023 after he was noted to be unresponsive by his girlfriend for unclear amount of time. Patient was transported by EMS to emergency room where he was intubated for hypoxia and respiratory distress.? On further evaluation patient with imaging finding of aspiration and left pneumothorax.? Initial left mid axillary chest tube placed in emergency room with persistence of pneumothorax and questionable subdiaphragmatic placement.? Chest tube removed and replaced with left midclavicular in 3rd intercostal space with air evacuation and improvement in pneumothorax.? Patient also noted to have acute kidney injury and rhabdomyolysis and started on IV fluid hydration. He underwent right gluteal fasciotomy with significant improvement in his CPK and renal function.? However, remains persistently encephalopathic.? MRI on 04/10/2023 with bilateral cerebral anoxic related encephalopathy. ? Evaluated by neurology with prognosis consider to be guarded, but not catastrophic. Overall with slow neurologic improvement, With significant improvement on 04/23/2023. extubated 04/23/2023 and downgraded to the medical floor on 04/25. Limited improvement in responsiveness. 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 medical management at this time -lopressors, asa outpatient workup when appropriate Acute renal failure resolved dvt prophylaxis - Heparin sq Full Code DISPO plan for extensive rehab- brain rehab facility recommended Has [facility] guardian, pending SNF placement. Requires continued hospitalization for safe disposition. Time Spent With Patient Time: Total time managing care of this patient today ____ minutes. Quality Stroke Does the patient have a stroke diagnosis?: No VTE Prior VTE?: No VTE Risk Level:: Medical - moderate - high VTE Device Contraindication: N/A - Device Ordered VTE Drug Contraindication: N/A - Med Ordered
--- NOTE | 2023-06-01 13:25 | MHC.CM.PN ---
per rounds pt ready for dc ..spoke with kosta at [facility] no beds avalaible at this time updated imfo sent via to[id number]
--- NOTE | 2023-06-01 13:53 | MHC.CM.PN ---
per rounds pt ready for dc updated info sent to all facilities search expended
[2023-06-01 16:00] VITALS: BP 126/71; PULSE 57; RESP 18; TEMP 36.6; O2SAT 98
[2023-06-01 20:00] VITALS: BP 127/73; PULSE 68; RESP 19; TEMP 36.6; O2SAT 98
[2023-06-01] MEDS: OLANZapine 10 MG TABLET PO (20:55)
[2023-06-01] MEDS: Atorvastatin Calcium 40 MG TABLET PO (20:55)
[2023-06-02 04:00] VITALS: BP 143/99; PULSE 64; RESP 19; TEMP 36.3; O2SAT 95
[2023-06-02 07:40] VITALS: BP 134/82; PULSE 60; RESP 18; TEMP 36.2; O2SAT 98
[2023-06-02] MEDS: Multivitamin TABLET 1 TAB PO (09:20)
[2023-06-02] MEDS: Baclofen 10 MG TABLET PO ×3 (09:20→22:10)
[2023-06-02] MEDS: Folic Acid 1 MG TABLET PO (09:21)
[2023-06-02] MEDS: Metoprolol Tartrate 12.5 MG HALFTAB PO ×2 (09:21→22:09)
[2023-06-02] MEDS: Thiamine HCL 100 MG TABLET PO (09:21)
[2023-06-02] MEDS: traMADoL HCL 50 MG TABLET PO ×2 (09:21→14:12)
[2023-06-02] MEDS: Sertraline HCL 50 MG TABLET PO (09:21)
[2023-06-02] MEDS: Aspirin 81 MG TAB.CHEW PO (09:21)
--- NOTE | 2023-06-02 10:14 | P.PNIM_ITS ---
Subjective Subjective Date of Service: 06/02/23 Interval History: no complaints Physical Exam Vital Signs: Vital Signs: Last Vital Signs Temp 97.2 F 06/02/23 07:40 Pulse 60 06/02/23 07:40 Resp 18 06/02/23 07:40 BP 134/82 06/02/23 07:40 Pulse Ox 98 06/02/23 07:40 O2 Del Method Room Air 06/02/23 07:40 O2 Flow Rate 98 05/17/23 20:00 FiO2 30 04/23/23 11:00 BMI result Body Mass Index 21.8 Const: Other: Constitutional : Awake, not in distress Neck : Normal inspection, Supple Cardiovascular : RRR, no JVP, no lower extremity edema Respiratory : good bilateral air entry, no crackles, wheezes or rhonchi Gastrointestinal: soft, lax, Normal bowel sounds, Non tender Skin : Warm, Dry Neurological : Alert & oriented about self and place, muscle wasting LEs bilaterally, moving USs, weak LEs, Objective Data Active Medications Acetaminophen (Acetaminophen Oral Liquid 650 Mg/20.3 Ml Solution) 650 mg PO Q6H PRN PRN Reason: Fever Last Admin: 05/28/23 13:16 Dose: 650 mg Documented By: COTEMA Aspirin (Aspirin 81 Mg Tab.Chew) 81 mg PO DAILY [facility] Last Admin: 06/02/23 09:21 Dose: 81 mg Documented By: COTEMA Atorvastatin Calcium (Atorvastatin Calcium 40 Mg Tablet) 40 mg PO BEDTIME [facility] Last Admin: 06/01/23 20:55 Dose: 40 mg Documented By: MARYANN Baclofen (Baclofen 10 Mg Tablet) 10 mg PO TID [facility] Last Admin: 06/02/23 09:20 Dose: 10 mg Documented By: COTEMA Folic Acid (Folic Acid 1 Mg Tablet) 1 mg PO DAILY [facility] Last Admin: 06/02/23 09:21 Dose: 1 mg Documented By: COTEMA Heparin Sodium (Porcine) (Heparin Sodium,Porcine 5,000 Unit/Ml Vial) 5,000 unit SUBCUT Q8H [facility] Last Admin: 06/02/23 04:36 Dose: Not Given Documented By: MARYANN Non-Admin Reason: Patient Refused Metoprolol Tartrate (Metoprolol Tartrate 12.5 Mg Halftab) 12.5 mg PO BID [facility]; Protocol Last Admin: 06/02/23 09:21 Dose: 12.5 mg Documented By: BERTA Multivitamins/Vitamin C (Multivitamin Tablet) 1 tab PO DAILY [facility] Last Admin: 06/02/23 09:20 Dose: 1 tab Documented By: DANETTEEMA Naloxone HCl (Naloxone Hcl 0.4 Mg/Ml Vial) 0.2 mg IVPUSH Q2M PRN PRN Reason: Excessive sedation or RR < 8 Nystatin (Nystatin Powder 15 Gm Bottle) 1 appl TOPICAL TID [facility]; Protocol Last Admin: 06/02/23 07:58 Dose: Not Given Documented By: COTKATHRIN Non-Admin Reason: resloved Olanzapine (Olanzapine 10 Mg Tablet) 10 mg PO BEDTIME [facility] Last Admin: 06/01/23 20:55 Dose: 10 mg Documented By: NATALSA Sertraline HCl (Sertraline Hcl 50 Mg Tablet) 50 mg PO DAILY [facility] Last Admin: 06/02/23 09:21 Dose: 50 mg Documented By: COTEMA Thiamine HCl (Thiamine Hcl 100 Mg Tablet) 100 mg PO DAILY [facility] Last Admin: 06/02/23 09:21 Dose: 100 mg Documented By: COTKATHRIN Tramadol HCl (Tramadol Hcl 50 Mg Tablet) 50 mg PO Q6H PRN PRN Reason: Pain, Moderate(Pain Scale 4-6) Last Admin: 06/02/23 09:21 Dose: 50 mg Documented By: BERTA Labs 05/07/23 06:02 05/30/23 05:34 Assessment and Plan (1) Anoxic encephalopathy: Status: Acute (2) Physical deconditioning: Status: Acute Plan 28-year-old man with underlying history of schizophrenia, alcohol use, marijuana use?admitted on 04/08/2023 after he was noted to be unresponsive by his girlfriend for unclear amount of time. Patient was transported by EMS to emergency room where he was intubated for hypoxia and respiratory distress.? On further evaluation patient with imaging finding of aspiration and left pneumothorax.? Initial left mid axillary chest tube placed in emergency room with persistence of pneumothorax and questionable subdiaphragmatic placement.? Chest tube removed and replaced with left midclavicular in 3rd intercostal space with air evacuation and improvement in pneumothorax.? Patient also noted to have acute kidney injury and rhabdomyolysis and started on IV fluid hydration. He underwent right gluteal fasciotomy with significant improvement in his CPK and renal function.? However, remains persistently encephalopathic.? MRI on 04/10/2023 with bilateral cerebral anoxic related encephalopathy. ? Evaluated by neurology with prognosis consider to be guarded, but not catastrophic. Overall with slow neurologic improvement, With significant improvement on 04/23/2023. extubated 04/23/2023 and downgraded to the medical floor on 04/25. Limited improvement in responsiveness. 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 medical management at this time -lopressors, asa outpatient workup when appropriate Acute renal failure resolved dvt prophylaxis - Heparin sq Full Code DISPO plan for extensive rehab- brain rehab facility recommended Has [facility] guardian, pending SNF placement. Requires continued hospitalization for safe disposition. Time Spent With Patient Time: Total time managing care of this patient today ____ minutes. Quality Stroke Does the patient have a stroke diagnosis?: No VTE Prior VTE?: No VTE Risk Level:: Medical - moderate - high VTE Device Contraindication: N/A - Device Ordered VTE Drug Contraindication: N/A - Med Ordered
--- NOTE | 2023-06-02 10:40 | MHC.SPEECHCO ---
Pt not seen on this date. INFORMATICS DEVELOPER will continue to follow.
--- NOTE | 2023-06-02 13:38 | MHC.CM.PN ---
CM PLACED CALLS TO [facility] TO INQUIRE ON STATUS OF THEIR REVIEW, MESSAGE LEFT FOR DELIO (ADMISSIONS) TO RETURN CALL. CHARIS ARCE UPDATED VIA CAREPORT AND REQUESTED DOCUMENTS ATTACHED FOR REVIEW. CM WILL CONTINUE TO FOLLOW FOR PLAN.
[2023-06-02 16:00] VITALS: BP 124/71; PULSE 73; RESP 18; TEMP 36.6; O2SAT 97
[2023-06-02 22:04] VITALS: BP 136/73; PULSE 98; RESP 20; TEMP 37; O2SAT 98
[2023-06-02] MEDS: Atorvastatin Calcium 40 MG TABLET PO (22:09)
[2023-06-02] MEDS: OLANZapine 10 MG TABLET PO (22:09)
[2023-06-03 03:57] VITALS: BP 124/81; PULSE 53; RESP 18; TEMP 36.2; O2SAT 98
[2023-06-03 06:00] VITALS: BMI 23.0
[2023-06-03 07:33] VITALS: BP 117/82; PULSE 70; RESP 16; TEMP 36.2; O2SAT 99
--- NOTE | 2023-06-03 08:11 | P.PNIM_ITS ---
Subjective Subjective Date of Service: 06/03/23 Interval History: no complaints Physical Exam Vital Signs: Vital Signs: Last Vital Signs Temp 97.2 F 06/03/23 07:33 Pulse 70 06/03/23 07:33 Resp 16 06/03/23 07:33 BP 117/82 06/03/23 07:33 Pulse Ox 99 06/03/23 07:33 O2 Del Method Room Air 06/03/23 07:33 O2 Flow Rate 98 05/17/23 20:00 FiO2 30 04/23/23 11:00 BMI result Body Mass Index 23.0 Const: Other: Constitutional : Awake, not in distress Neck : Normal inspection, Supple Cardiovascular : RRR, no JVP, no lower extremity edema Respiratory : good bilateral air entry, no crackles, wheezes or rhonchi Gastrointestinal: soft, lax, Normal bowel sounds, Non tender Skin : Warm, Dry Neurological : Alert & oriented about self and place, muscle wasting LEs bilaterally, moving USs, weak LEs, Objective Data Active Medications Acetaminophen (Acetaminophen Oral Liquid 650 Mg/20.3 Ml Solution) 650 mg PO Q6H PRN PRN Reason: Fever Last Admin: 05/28/23 13:16 Dose: 650 mg Documented By: COTEMA Aspirin (Aspirin 81 Mg Tab.Chew) 81 mg PO DAILY [facility] Last Admin: 06/02/23 09:21 Dose: 81 mg Documented By: COTEMA Atorvastatin Calcium (Atorvastatin Calcium 40 Mg Tablet) 40 mg PO BEDTIME [facility] Last Admin: 06/02/23 22:09 Dose: 40 mg Documented By: NICKIE Baclofen (Baclofen 10 Mg Tablet) 10 mg PO TID [facility] Last Admin: 06/02/23 22:10 Dose: 10 mg Documented By: NICKIE Folic Acid (Folic Acid 1 Mg Tablet) 1 mg PO DAILY [facility] Last Admin: 06/02/23 09:21 Dose: 1 mg Documented By: COTEMA Heparin Sodium (Porcine) (Heparin Sodium,Porcine 5,000 Unit/Ml Vial) 5,000 unit SUBCUT Q8H [facility] Last Admin: 06/03/23 02:48 Dose: Not Given Documented By: NICKIE Non-Admin Reason: Patient Refused Metoprolol Tartrate (Metoprolol Tartrate 12.5 Mg Halftab) 12.5 mg PO BID [facility]; P rotocol Last Admin: 06/02/23 22:09 Dose: 12.5 mg Documented By: NICKIE Multivitamins/Vitamin C (Multivitamin Tablet) 1 tab PO DAILY [facility] Last Admin: 06/02/23 09:20 Dose: 1 tab Documented By: DANETTEEMA Naloxone HCl (Naloxone Hcl 0.4 Mg/Ml Vial) 0.2 mg IVPUSH Q2M PRN PRN Reason: Excessive sedation or RR < 8 Nystatin (Nystatin Powder 15 Gm Bottle) 1 appl TOPICAL TID [facility]; Protocol Last Admin: 06/02/23 22:12 Dose: Not Given Documented By: NICKIE Non-Admin Reason: resolved Olanzapine (Olanzapine 10 Mg Tablet) 10 mg PO BEDTIME [facility] Last Admin: 06/02/23 22:09 Dose: 10 mg Documented By: NICKIE Sertraline HCl (Sertraline Hcl 50 Mg Tablet) 50 mg PO DAILY [facility] Last Admin: 06/02/23 09:21 Dose: 50 mg Documented By: DANETTEEMA Thiamine HCl (Thiamine Hcl 100 Mg Tablet) 100 mg PO DAILY [facility] Last Admin: 06/02/23 09:21 Dose: 100 mg Documented By: COTEMA Tramadol HCl (Tramadol Hcl 50 Mg Tablet) 50 mg PO Q6H PRN PRN Reason: Pain, Moderate(Pain Scale 4-6) Last Admin: 06/02/23 14:12 Dose: 50 mg Documented By: BERTA Labs 05/07/23 06:02 05/30/23 05:34 Assessment and Plan (1) Anoxic encephalopathy: Status: Acute (2) Physical deconditioning: Status: Acute Plan 28-year-old man with underlying history of schizophrenia, alcohol use, marijuana use?admitted on 04/08/2023 after he was noted to be unresponsive by his girlfriend for unclear amount of time. Patient was transported by EMS to emergency room where he was intubated for hypoxia and respiratory distress.? On further evaluation patient with imaging finding of aspiration and left pneumothorax.? Initial left mid axillary chest tube placed in emergency room with persistence of pneumothorax and questionable subdiaphragmatic placement.? Chest tube removed and replaced with left midclavicular in 3rd intercostal space with air evacuation and improvement in pneumothorax.? Patient also noted to have acute kidney injury and rhabdomyolysis and started on IV fluid hydration. He underwent right gluteal fasciotomy with significant improvement in his CPK and renal function.? However, remains persistently encephalopathic.? MRI on 04/10/2023 with bilateral cerebral anoxic related encephalopathy. ? Evaluated by neurology with prognosis consider to be guarded, but not catastrophic. Overall with slow neurologic improvement, With significant improvement on 04/23/2023. extubated 04/23/2023 and downgraded to the medical floor on 04/25. Limited improvement in responsiveness. 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 medical management at this time -lopressors, asa outpatient workup when appropriate Acute renal failure resolved dvt prophylaxis - Heparin sq Full Code DISPO plan for extensive rehab- brain rehab facility recommended Has [facility] guardian, pending SNF placement. Requires continued hospitalization for safe disposition. Time Spent With Patient Time: Total time managing care of this patient today ____ minutes. Quality Stroke Does the patient have a stroke diagnosis?: No VTE Prior VTE?: No VTE Risk Level:: Medical - moderate - high VTE Device Contraindication: N/A - Device Ordered VTE Drug Contraindication: N/A - Med Ordered
[2023-06-03] MEDS: Aspirin 81 MG TAB.CHEW PO (09:37)
[2023-06-03] MEDS: Folic Acid 1 MG TABLET PO (09:37)
[2023-06-03] MEDS: Thiamine HCL 100 MG TABLET PO (09:37)
[2023-06-03] MEDS: Multivitamin TABLET 1 TAB PO (09:37)
[2023-06-03] MEDS: Metoprolol Tartrate 12.5 MG HALFTAB PO ×2 (09:37→20:15)
[2023-06-03] MEDS: Baclofen 10 MG TABLET PO ×3 (09:37→20:15)
[2023-06-03] MEDS: Sertraline HCL 50 MG TABLET PO (09:37)
[2023-06-03] MEDS: Nystatin Powder 15 GM BOTTLE 1 APPL TOPICAL ×2 (09:39→15:12)
[2023-06-03] MEDS: traMADoL HCL 50 MG TABLET PO (12:10)
--- NOTE | 2023-06-03 14:14 | MHC.CM.PN ---
per rounds pt ready for dc no bed avaliable for pt at this time search continues
[2023-06-03 16:00] VITALS: BP 125/87; PULSE 73; RESP 16; TEMP 36.6; O2SAT 98
[2023-06-03 19:43] VITALS: BP 120/72; PULSE 65; RESP 18; TEMP 36.6; O2SAT 96
[2023-06-03] MEDS: Atorvastatin Calcium 40 MG TABLET PO (20:15)
[2023-06-03] MEDS: OLANZapine 10 MG TABLET PO (20:15)
[2023-06-04 07:42] VITALS: BP 125/79; PULSE 64; RESP 20; TEMP 36.8; O2SAT 96
--- NOTE | 2023-06-04 08:28 | P.PNIM_ITS ---
Subjective Subjective Date of Service: 06/04/23 Interval History: no complaints Physical Exam Vital Signs: Vital Signs: Last Vital Signs Temp 98.2 F 06/04/23 07:42 Pulse 64 06/04/23 07:42 Resp 20 06/04/23 07:42 BP 125/79 06/04/23 07:42 Pulse Ox 96 06/04/23 07:42 O2 Del Method Room Air 06/04/23 07:42 O2 Flow Rate 98 05/17/23 20:00 FiO2 30 04/23/23 11:00 BMI result Body Mass Index 23.0 Const: Other: Constitutional : Awake, not in distress Neck : Normal inspection, Supple Cardiovascular : RRR, no JVP, no lower extremity edema Respiratory : good bilateral air entry, no crackles, wheezes or rhonchi Gastrointestinal: soft, lax, Normal bowel sounds, Non tender Skin : Warm, Dry Neurological : Alert & oriented about self and place, muscle wasting LEs bilaterally, moving USs, weak LEs, Objective Data Active Medications Acetaminophen (Acetaminophen Oral Liquid 650 Mg/20.3 Ml Solution) 650 mg PO Q6H PRN PRN Reason: Fever Last Admin: 05/28/23 13:16 Dose: 650 mg Documented By: COTEMA Aspirin (Aspirin 81 Mg Tab.Chew) 81 mg PO DAILY [facility] Last Admin: 06/03/23 09:37 Dose: 81 mg Documented By: KANU Atorvastatin Calcium (Atorvastatin Calcium 40 Mg Tablet) 40 mg PO BEDTIME [facility] Last Admin: 06/03/23 20:15 Dose: 40 mg Documented By: DEAN Baclofen (Baclofen 10 Mg Tablet) 10 mg PO TID [facility] Last Admin: 06/03/23 20:15 Dose: 10 mg Documented By: DEAN Folic Acid (Folic Acid 1 Mg Tablet) 1 mg PO DAILY [facility] Last Admin: 06/03/23 09:37 Dose: 1 mg Documented By: KANU Heparin Sodium (Porcine) (Heparin Sodium,Porcine 5,000 Unit/Ml Vial) 5,000 unit SUBCUT Q8H [facility] Last Admin: 06/04/23 04:08 Dose: Not Given Documented By: DEAN Non-Admin Reason: Patient Refused Metoprolol Tartrate (Metoprolol Tartrate 12.5 Mg Halftab) 12.5 mg PO BID [facility]; Protocol Last Admin: 06/03/23 20:15 Dose: 12.5 mg Documented By: DEAN Multivitamins/Vitamin C (Multivitamin Tablet) 1 tab PO DAILY [facility] Last Admin: 06/03/23 09:37 Dose: 1 tab Documented By: KANU Naloxone HCl (Naloxone Hcl 0.4 Mg/Ml Vial) 0.2 mg IVPUSH Q2M PRN PRN Reason: Excessive sedation or RR < 8 Nystatin (Nystatin Powder 15 Gm Bottle) 1 appl TOPICAL TID [facility]; Protocol Last Admin: 06/03/23 20:15 Dose: Not Given Documented By: DEAN Non-Admin Reason: Patient Refused Olanzapine (Olanzapine 10 Mg Tablet) 10 mg PO BEDTIME [facility] Last Admin: 06/03/23 20:15 Dose: 10 mg Documented By: DEAN Sertraline HCl (Sertraline Hcl 50 Mg Tablet) 50 mg PO DAILY [facility] Last Admin: 06/03/23 09:37 Dose: 50 mg Documented By: KANU Thiamine HCl (Thiamine Hcl 100 Mg Tablet) 100 mg PO DAILY [facility] Last Admin: 06/03/23 09:37 Dose: 100 mg Documented By: KANU Labs 05/07/23 06:02 05/30/23 05:34 Assessment and Plan (1) Anoxic encephalopathy: Status: Acute (2) Physical deconditioning: Status: Acute Plan 28-year-old man with underlying history of schizophrenia, alcohol use, marijuana use?admitted on 04/08/2023 after he was noted to be unresponsive by his girlfriend for unclear amount of time. Patient was transported by EMS to emergency room where he was intubated for hypoxia and respiratory distress.? On further evaluation patient with imaging finding of aspiration and left pneumothorax.? Initial left mid axillary chest tube placed in emergency room with persistence of pneumothorax and questionable subdiaphragmatic placement.? Chest tube removed and replaced with left midclavicular in 3rd intercostal space with air evacuation and improvement in pneumothorax.? Patient also noted to have acute kidney injury and rhabdomyolysis and started on IV fluid hydration. He underwent right gluteal fasciotomy with significant improvement in his CPK and renal function.? However, remains persistently encephalopathic.? MRI on 04/10/2023 with bilateral cerebral anoxic related encephalopathy. ? Evaluated by neurology with prognosis consider to be guarded, but not catastrophic. Overall with slow neurologic improvement, With significant improvement on 04/23/2023. extubated 04/23/2023 and downgraded to the medical floor on 04/25. Limited improvement in responsiveness. Anoxic brain injury secondary to aspiration pneumonia related to polysubstance overdose with anoxic encephalopathy answering question with full sentences ,continues to improve continue PT/OT, plan for more aggressive rehab Baclofen as muscle relaxant Tramadol PRN for pain Schizophrenia in backdrop SHREI sertraline 50mg/olanzapine 10mg HS psych following as needed NSTEMI, resolved s/p heparin drip.... medical management at this time -lopressors, asa outpatient workup when appropriate Acute renal failure resolved dvt prophylaxis - Heparin sq Full Code DISPO plan for extensive rehab- brain rehab facility recommended Has [facility] guardian, pending SNF placement. Requires continued hospitalization for safe disposition. Time Spent With Patient Time: Total time managing care of this patient today ____ minutes. Quality Stroke Does the patient have a stroke diagnosis?: No VTE Prior VTE?: No VTE Risk Level:: Medical - moderate - high VTE Device Contraindication: N/A - Device Ordered VTE Drug Contraindication: N/A - Med Ordered
[2023-06-04] MEDS: Multivitamin TABLET 1 TAB PO (09:35)
[2023-06-04] MEDS: Sertraline HCL 50 MG TABLET PO (09:35)
[2023-06-04] MEDS: Thiamine HCL 100 MG TABLET PO (09:35)
[2023-06-04] MEDS: Folic Acid 1 MG TABLET PO (09:35)
[2023-06-04] MEDS: Aspirin 81 MG TAB.CHEW PO (09:35)
[2023-06-04] MEDS: Baclofen 10 MG TABLET PO ×3 (09:36→21:39)
[2023-06-04] MEDS: Metoprolol Tartrate 12.5 MG HALFTAB PO ×2 (09:36→21:39)
--- NOTE | 2023-06-04 11:38 | MHC.SLORD ---
Speech Language Pathology Order Status: Attempted to see patient for language/cognitive TX. Patient was using snap chat on phone, refused therapy. Despite refusal, noted patient able to provide more personal/historical information in informal conversation, e.g. patient has perseverated on the [employer] in the past, today reported that he use to hang out there and was arrested twice for trespassing. He reported that he grew up in [place]. [employer] will continue to follow. Barry to recommend langauge/cognitive TX at next level of care.
[2023-06-04 15:32] VITALS: BP 119/81; PULSE 90; RESP 18; TEMP 36.6; O2SAT 97
[2023-06-04 19:49] VITALS: BP 130/84; PULSE 86; RESP 16; TEMP 36.6; O2SAT 98
[2023-06-04] MEDS: OLANZapine 10 MG TABLET PO (21:39)
[2023-06-04] MEDS: Atorvastatin Calcium 40 MG TABLET PO (21:39)
[2023-06-04] MEDS: Nystatin Powder 15 GM BOTTLE 1 APPL TOPICAL (22:32)
[2023-06-05 01:32] VITALS: BP 117/74; PULSE 62; RESP 16; TEMP 36.4; O2SAT 96
[2023-06-05 07:39] VITALS: BP 125/73; PULSE 50; RESP 16; TEMP 36.2; O2SAT 95
--- NOTE | 2023-06-05 08:06 | HO.PM.IMPN ---
Subjective Subjective Date of Service: 06/05/23 Interval History: no complaints Review of Systems Unable to obtain. Constitutional Constitutional: Denies fever(s) Cardiovascular Cardiovascular: Denies chest pain Gastrointestinal Gastrointestinal: Denies abdominal pain Neurologic Neurologic: Reports confusion Psychiatric Psychiatric: Reports confusion Physical Exam Vital Signs: Vital Signs: Last Vital Signs Temp 97.1 F 06/05/23 07:39 Pulse 50 06/05/23 07:39 Resp 16 06/05/23 07:39 BP 125/73 06/05/23 07:39 Pulse Ox 95 06/05/23 07:39 O2 Del Method Room Air 06/05/23 07:39 O2 Flow Rate 98 05/17/23 20:00 FiO2 30 04/23/23 11:00 BMI result Body Mass Index 23.0 Const: Other: Constitutional : Awake, not in distress Neck : Normal inspection, Supple Cardiovascular : RRR, no JVP, no lower extremity edema Respiratory : good bilateral air entry, no crackles, wheezes or rhonchi Gastrointestinal: soft, lax, Normal bowel sounds, Non tender Skin : Warm, Dry Neurological : Alert & oriented about self and place, muscle wasting LEs bilaterally, moving USs, weak LEs, General: cooperative, comfortable, no acute distress, alert, awake, confusion, lethargic, patient obtunded and other ( expressive aphasia) Nutritional Appearance: average body habitus, well nourished and thin Orientation/consciousness: confusion, patient obtunded and lethargic Limitations: no limitations HEENT: Head: Yes normocephalic and Yes atraumatic Eyes: Sclerae: sclerae normal Pupils: Equal, round and reactive pupils present EOM: EOMs intact bilaterally Neck: Neck: Yes no lymphadenopathy, Yes trachea midline, Yes supple and Yes no JVD Resp: Other: clear to auscultation bilaterally no rales rhonchi o Effort & Inspection: normal respiratory effort, able to speak in complete sentences, no respiratory distress and no use of accessory muscles Auscultation: clear to auscultation bilaterally and crackles ( mild bilateral) Cardio: Other: no S4; positive S1-S2; no S3 murmurs rubs or gallops Jugular venous distension: no JVD Palpation: normal PMI Rate: regular rate, bradycardic and tachycardic Rhythm: regular rhythm Heart sounds: S1 normal heart sound present, S2 normal heart sound present, no click, no gallops, no murmurs and no rubs GI: Other: soft nontender nondistended normoactive bowel sounds Inspection: No distended Palpation (GI): Soft to palpation and Other GI palpation findings present ( Nontender) Auscultation: normal bowel sounds Skin: Other: right gluteal faciotomy incision well healing General skin exam: no rashes or lesions noted Neuro: Other: unable to obtain secondary to inability to follow cues General: moves all extremities, confusion and patient obtunded Cranial nerves: Yes Equal, round and reactive pupils present Extrem: Other: no edema. Muscle wasting throughout General: Yes no clubbing, cyanosis or edema, Yes no pedal edema, No clubbing, No cyanosis, Yes edema ( 1+ bilateral) and Yes other Objective Data Active Medications Acetaminophen (Acetaminophen Oral Liquid 650 Mg/20.3 Ml Solution) 650 mg PO Q6H PRN PRN Reason: Fever Last Admin: 05/28/23 13:16 Dose: 650 mg Documented By: BERTA Aspirin (Aspirin 81 Mg Tab.Chew) 81 mg PO DAILY [facility] Last Admin: 06/04/23 09:35 Dose: 81 mg Documented By: RICKEY Atorvastatin Calcium (Atorvastatin Calcium 40 Mg Tablet) 40 mg PO BEDTIME [facility] Last Admin: 06/04/23 21:39 Dose: 40 mg Documented By: JAMA Baclofen (Baclofen 10 Mg Tablet) 10 mg PO TID [facility] Last Admin: 06/04/23 21:39 Dose: 10 mg Documented By: JAMA Folic Acid (Folic Acid 1 Mg Tablet) 1 mg PO DAILY [facility] Last Admin: 06/04/23 09:35 Dose: 1 mg Documented By: RICKEY Heparin Sodium (Porcine) (Heparin Sodium,Porcine 5,000 Unit/Ml Vial) 5,000 unit SUBCUT Q8H [facility] Last Admin: 06/05/23 04:30 Dose: Not Given Documented By: MODESTO Non-Admin Reason: Patient Refused Metoprolol Tartrate (Metoprolol Tartrate 12.5 Mg Halftab) 12.5 mg PO BID [facility]; Protocol Last Admin: 06/04/23 21:39 Dose: 12.5 mg Documented By: JAMA Multivitamins/Vitamin C (Multivitamin Tablet) 1 tab PO DAILY [facility] Last Admin: 06/04/23 09:35 Dose: 1 tab Documented By: RICKEY Naloxone HCl (Naloxone Hcl 0.4 Mg/Ml Vial) 0.2 mg IVPUSH Q2M PRN PRN Reason: Excessive sedation or RR < 8 Nystatin (Nystatin Powder 15 Gm Bottle) 1 appl TOPICAL TID [facility]; Protocol Last Admin: 06/04/23 22:32 Dose: 1 appl Documented By: JAMA Olanzapine (Olanzapine 10 Mg Tablet) 10 mg PO BEDTIME [facility] Last Admin: 06/04/23 21:39 Dose: 10 mg Documented By: JAMA Sertraline HCl (Sertraline Hcl 50 Mg Tablet) 50 mg PO DAILY [facility] Last Admin: 06/04/23 09:35 Dose: 50 mg Documented By: RICKEY Thiamine HCl (Thiamine Hcl 100 Mg Tablet) 100 mg PO DAILY [facility] Last Admin: 06/04/23 09:35 Dose: 100 mg Documented By: RICKEY Labs 05/07/23 06:02 05/30/23 05:34 Assessment and Plan (1) Acute renal injury: Status: Acute Plan 28-year-old man with underlying history of schizophrenia, alcohol use, marijuana use?admitted on 04/08/2023 after he was noted to be unresponsive by his girlfriend for unclear amount of time. Patient was transported by EMS to emergency room where he was intubated for hypoxia and respiratory distress.? On further evaluation patient with imaging finding of aspiration and left pneumothorax.? Initial left mid axillary chest tube placed in emergency room with persistence of pneumothorax and questionable subdiaphragmatic placement.? Chest tube removed and replaced with left midclavicular in 3rd intercostal space with air evacuation and improvement in pneumothorax.? Patient also noted to have acute kidney injury and rhabdomyolysis and started on IV fluid hydration. He underwent right gluteal fasciotomy with significant improvement in his CPK and renal function.? However, remains persistently encephalopathic.? MRI on 04/10/2023 with bilateral cerebral anoxic related encephalopathy. ? Evaluated by neurology with prognosis consider to be guarded, but not catastrophic. Overall with slow neurologic improvement, With significant improvement on 04/23/2023. extubated 04/23/2023 and downgraded to the medical floor on 04/25. Limited improvement in responsiveness. 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 medical management at this time -lopressors, asa outpatient workup when appropriate Acute renal failure resolved dvt prophylaxis - Heparin sq Full Code DISPO plan for extensive rehab- brain rehab facility recommended Has [facility] guardian, pending SNF placement. Requires continued hospitalization for safe disposition. Time Spent With Patient Time: Total time managing care of this patient today ____ minutes. Quality Stroke Does the patient have a stroke diagnosis?: No VTE Prior VTE?: No VTE Risk Level:: Medical - moderate - high VTE Device Contraindication: N/A - Device Ordered VTE Drug Contraindication: N/A - Med Ordered
[2023-06-05] MEDS: Sertraline HCL 50 MG TABLET PO (08:41)
[2023-06-05] MEDS: Folic Acid 1 MG TABLET PO (08:41)
[2023-06-05] MEDS: Aspirin 81 MG TAB.CHEW PO (08:41)
[2023-06-05] MEDS: Nystatin Powder 15 GM BOTTLE 1 APPL TOPICAL ×3 (08:41→20:50)
[2023-06-05] MEDS: Baclofen 10 MG TABLET PO ×3 (08:41→20:45)
[2023-06-05] MEDS: Metoprolol Tartrate 12.5 MG HALFTAB PO ×2 (08:41→20:44)
[2023-06-05] MEDS: Thiamine HCL 100 MG TABLET PO (08:41)
[2023-06-05] MEDS: Multivitamin TABLET 1 TAB PO (08:41)
[2023-06-05 10:46] VITALS: BP 125/73; PULSE 50; O2SAT 95
[2023-06-05] MEDS: Acetaminophen Oral Liquid 650 MG/20.3 ML SOLUTION PO (11:12)
--- NOTE | 2023-06-05 12:33 | MHC.SL.SOA ---
Referring Provider: Chaim Mccullough MD Reason for Referral: Post-extubation Date of Plan of Treatment:04/24/23 Onset of Symptoms/Illness:04/23/23 Date Treatment Started:04/24/23 Medical Diagnosis:Anoxic encephalopathy, polysubstance abuse, schizophrenia Primary Speech Language Diagnosis:R13.12 Oropharyngeal Phase Dysphagia Subjective:Pt was seated in chair at bedside. Pt initiated conversation as he was approached by [employer] this morning. Pt read [employer]'s badge and stated her name, also asked, What's up with the mask? Objective: Pt was administered other receptive and expressive elements of the Short form of the BDAE Assessment:Pt correctly named 10/10 line images without prompting. He exhibited more difficulty with word fluency tasks. He was instructed to name as many items as he could within a given category. He named 8 animals in 60 seconds. Continue to note some perseverative responses, with pt continually stating [employer]'s name and previous treatment stimuli (i.e. shirt which was named in a drawing previously). Other responses included insecticide and tip over. Pt correctly stated his name, age, year, and location. He stated that today is Thursday, but was unable to provide the date. He stated the month to be April, and did not self correct when cued to reference the whiteboard in his room. Recommend ongoing assessment of language and cognition. Recommend continued speech/language intervention/therapy at the next level of care. Notes: Recommend ongoing assessment of language and cognition. Recommend continued speech/language intervention/therapy at the next level of care. Plan: Goal # : Lon will participate in formal and informal assessment tasks of receptive language. Goal # : Lon will participate in formal and informal assessment tasks of expressive langauge. Goal # : Lon will participate in formal and informal assessment tasks of cognitive function. Seen by: Graduate/Clinical Fellow: No Supervisory Statement: f_Reg Query Last Value , MHC.AU.SIGNATUR Speech Language Pathologist: Latha Conde M.A., CCC-[employer]
--- NOTE | 2023-06-05 14:10 | MHC.CM.PN ---
per rounds pt ready for dc no accepting fciliy at this time
[2023-06-05 15:19] VITALS: BP 110/69; PULSE 61; RESP 16; TEMP 36.2; O2SAT 97
[2023-06-05 19:35] VITALS: BP 125/74; PULSE 95; RESP 18; TEMP 36.4; O2SAT 97
[2023-06-05] MEDS: Heparin Sodium,Porcine 5,000 UNIT/ML VIAL 5000 UNIT SUBCUT (20:44)
[2023-06-05] MEDS: Atorvastatin Calcium 40 MG TABLET PO (20:45)
[2023-06-05] MEDS: OLANZapine 10 MG TABLET PO (20:45)
[2023-06-06 03:41] VITALS: BP 125/62; PULSE 62; RESP 18; TEMP 36.6; O2SAT 98
[2023-06-06 06:00] VITALS: BMI 20.9
[2023-06-06 07:25] VITALS: BP 106/73; PULSE 52; RESP 16; TEMP 36.4; O2SAT 97
--- NOTE | 2023-06-06 08:38 | HO.PM.IMPN ---
Subjective Subjective Date of Service: 06/06/23 Interval History: no complaints Review of Systems Unable to obtain. Constitutional Constitutional: Denies fever(s) Cardiovascular Cardiovascular: Denies chest pain Gastrointestinal Gastrointestinal: Denies abdominal pain Neurologic Neurologic: Reports confusion Psychiatric Psychiatric: Reports confusion Physical Exam Vital Signs: Vital Signs: Last Vital Signs Temp 97.6 F 06/06/23 07:25 Pulse 52 06/06/23 07:25 Resp 16 06/06/23 07:25 BP 106/73 06/06/23 07:25 Pulse Ox 97 06/06/23 07:25 O2 Del Method Room Air 06/06/23 07:25 O2 Flow Rate 98 05/17/23 20:00 FiO2 30 04/23/23 11:00 BMI result Body Mass Index 20.9 Const: Other: Constitutional : Awake, not in distress Neck : Normal inspection, Supple Cardiovascular : RRR, no JVP, no lower extremity edema Respiratory : good bilateral air entry, no crackles, wheezes or rhonchi Gastrointestinal: soft, lax, Normal bowel sounds, Non tender Skin : Warm, Dry Neurological : Alert & oriented about self and place, muscle wasting LEs bilaterally, moving USs, weak LEs, General: confusion Nutritional Appearance: average body habitus, well nourished and thin Orientation/consciousness: confusion Limitations: no limitations HEENT: Head: Yes normocephalic and Yes atraumatic Eyes: Sclerae: sclerae normal Pupils: Equal, round and reactive pupils present EOM: EOMs intact bilaterally Neck: Neck: Yes no lymphadenopathy, Yes trachea midline, Yes supple and Yes no JVD Resp: Other: clear to auscultation bilaterally no rales rhonchi o Effort & Inspection: normal respiratory effort, able to speak in complete sentences, no respiratory distress and no use of accessory muscles Auscultation: clear to auscultation bilaterally and crackles ( mild bilateral) Cardio: Other: no S4; positive S1-S2; no S3 murmurs rubs or gallops Jugular venous distension: no JVD Palpation: normal PMI Rate: regular rate, bradycardic and tachycardic Rhythm: regular rhythm Heart sounds: S1 normal heart sound present, S2 normal heart sound present, no click, no gallops, no murmurs and no rubs GI: Other: soft nontender nondistended normoactive bowel sounds Inspection: No distended Palpation (GI): Soft to palpation and Other GI palpation findings present ( Nontender) Auscultation: normal bowel sounds Skin: Other: right gluteal faciotomy incision well healing General skin exam: no rashes or lesions noted Neuro: Other: unable to obtain secondary to inability to follow cues General: confusion Cranial nerves: Yes Equal, round and reactive pupils present Extrem: Other: no edema. Muscle wasting throughout General: Yes no clubbing, cyanosis or edema, Yes no pedal edema, No clubbing, No cyanosis, Yes edema ( 1+ bilateral) and Yes other Objective Data Active Medications Acetaminophen (Acetaminophen Oral Liquid 650 Mg/20.3 Ml Solution) 650 mg PO Q6H PRN PRN Reason: Fever Last Admin: 06/05/23 11:12 Dose: 650 mg Documented By: SUNIL Aspirin (Aspirin 81 Mg Tab.Chew) 81 mg PO DAILY [facility] Last Admin: 06/05/23 08:41 Dose: 81 mg Documented By: RICKEY Atorvastatin Calcium (Atorvastatin Calcium 40 Mg Tablet) 40 mg PO BEDTIME [facility] Last Admin: 06/05/23 20:45 Dose: 40 mg Documented By: MARYANN Baclofen (Baclofen 10 Mg Tablet) 10 mg PO TID [facility] Last Admin: 06/05/23 20:45 Dose: 10 mg Documented By: MARYANN Folic Acid (Folic Acid 1 Mg Tablet) 1 mg PO DAILY [facility] Last Admin: 06/05/23 08:41 Dose: 1 mg Documented By: RICKEY Heparin Sodium (Porcine) (Heparin Sodium,Porcine 5,000 Unit/Ml Vial) 5,000 unit SUBCUT Q8H [facility] Last Admin: 06/06/23 04:41 Dose: Not Given Documented By: MARYANN Non-Admin Reason: Patient Refused Metoprolol Tartrate (Metoprolol Tartrate 12.5 Mg Halftab) 12.5 mg PO BID [facility]; Protocol Last Admin: 06/05/23 20:44 Dose: 12.5 mg Documented By: MARYANN Multivitamins/Vitamin C (Multivitamin Tablet) 1 tab PO DAILY [facility] Last Admin: 06/05/23 08:41 Dose: 1 tab Documented By: RICKEY Naloxone HCl (Naloxone Hcl 0.4 Mg/Ml Vial) 0.2 mg IVPUSH Q2M PRN PRN Reason: Excessive sedation or RR < 8 Nystatin (Nystatin Powder 15 Gm Bottle) 1 appl TOPICAL TID [facility]; Protocol Last Admin: 06/05/23 20:50 Dose: 1 appl Documented By: MARYANN Olanzapine (Olanzapine 10 Mg Tablet) 10 mg PO BEDTIME [facility] Last Admin: 06/05/23 20:45 Dose: 10 mg Documented By: MARYANN Sertraline HCl (Sertraline Hcl 50 Mg Tablet) 50 mg PO DAILY [facility] Last Admin: 06/05/23 08:41 Dose: 50 mg Documented By: RICKEY Thiamine HCl (Thiamine Hcl 100 Mg Tablet) 100 mg PO DAILY [facility] Last Admin: 06/05/23 08:41 Dose: 100 mg Documented By: RICKEY Labs 05/07/23 06:02 05/30/23 05:34 Assessment and Plan (1) Acute renal injury: Status: Acute Plan 28-year-old man with underlying history of schizophrenia, alcohol use, marijuana use?admitted on 04/08/2023 after he was noted to be unresponsive by his girlfriend for unclear amount of time. Patient was transported by EMS to emergency room where he was intubated for hypoxia and respiratory distress.? On further evaluation patient with imaging finding of aspiration and left pneumothorax.? Initial left mid axillary chest tube placed in emergency room with persistence of pneumothorax and questionable subdiaphragmatic placement.? Chest tube removed and replaced with left midclavicular in 3rd intercostal space with air evacuation and improvement in pneumothorax.? Patient also noted to have acute kidney injury and rhabdomyolysis and started on IV fluid hydration. He underwent right gluteal fasciotomy with significant improvement in his CPK and renal function.? However, remains persistently encephalopathic.? MRI on 04/10/2023 with bilateral cerebral anoxic related encephalopathy. ? Evaluated by neurology with prognosis consider to be guarded, but not catastrophic. Overall with slow neurologic improvement, With significant improvement on 04/23/2023. extubated 04/23/2023 and downgraded to the medical floor on 04/25. Limited improvement in responsiveness. 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 medical management at this time -lopressors, asa outpatient workup when appropriate Acute renal failure resolved dvt prophylaxis - Heparin sq Full Code DISPO plan for extensive rehab- brain rehab facility recommended Has [facility] guardian, pending SNF placement. Requires continued hospitalization for safe disposition. Time Spent With Patient Time: Total time managing care of this patient today ____ minutes. Quality Stroke Does the patient have a stroke diagnosis?: No VTE Prior VTE?: No VTE Risk Level:: Medical - moderate - high VTE Device Contraindication: N/A - Device Ordered VTE Drug Contraindication: N/A - Med Ordered
[2023-06-06] MEDS: Folic Acid 1 MG TABLET PO (09:18)
[2023-06-06] MEDS: Sertraline HCL 50 MG TABLET PO (09:18)
[2023-06-06] MEDS: Baclofen 10 MG TABLET PO ×3 (09:19→20:22)
[2023-06-06] MEDS: Multivitamin TABLET 1 TAB PO (09:19)
[2023-06-06] MEDS: Aspirin 81 MG TAB.CHEW PO (09:19)
[2023-06-06] MEDS: Thiamine HCL 100 MG TABLET PO (09:20)
[2023-06-06] MEDS: Nystatin Powder 15 GM BOTTLE 1 APPL TOPICAL ×2 (09:20→15:31)
[2023-06-06 15:09] VITALS: BP 125/64; PULSE 88; RESP 18; TEMP 36.5; O2SAT 98
[2023-06-06 19:40] VITALS: BP 122/74; PULSE 70; RESP 18; TEMP 36.5; O2SAT 97
[2023-06-06] MEDS: Heparin Sodium,Porcine 5,000 UNIT/ML VIAL 5000 UNIT SUBCUT (20:22)
[2023-06-06] MEDS: Atorvastatin Calcium 40 MG TABLET PO (20:22)
[2023-06-06] MEDS: Metoprolol Tartrate 12.5 MG HALFTAB PO (20:22)
[2023-06-06] MEDS: OLANZapine 10 MG TABLET PO (20:22)
[2023-06-06 23:42] VITALS: BP 120/62; PULSE 62; RESP 18; TEMP 36.6; O2SAT 97
[2023-06-07 07:46] VITALS: BP 123/70; PULSE 56; RESP 18; TEMP 36.4; O2SAT 100
--- NOTE | 2023-06-07 08:39 | HO.PM.IMPN ---
Subjective Subjective Date of Service: 06/07/23 Interval History: no complaints Review of Systems Unable to obtain. Constitutional Constitutional: Denies fever(s) Cardiovascular Cardiovascular: Denies chest pain Gastrointestinal Gastrointestinal: Denies abdominal pain Neurologic Neurologic: Reports confusion Psychiatric Psychiatric: Reports confusion Physical Exam Vital Signs: Vital Signs: Last Vital Signs Temp 97.6 F 06/07/23 07:46 Pulse 56 06/07/23 07:46 Resp 18 06/07/23 07:46 BP 123/70 06/07/23 07:46 Pulse Ox 100 06/07/23 07:46 O2 Del Method Room Air 06/07/23 07:46 O2 Flow Rate 98 05/17/23 20:00 FiO2 30 04/23/23 11:00 BMI result Body Mass Index 20.9 Const: Other: Constitutional : Awake, not in distress Neck : Normal inspection, Supple Cardiovascular : RRR, no JVP, no lower extremity edema Respiratory : good bilateral air entry, no crackles, wheezes or rhonchi Gastrointestinal: soft, lax, Normal bowel sounds, Non tender Skin : Warm, Dry Neurological : Alert & oriented about self and place, muscle wasting LEs bilaterally, moving USs, weak LEs, General: cooperative, comfortable, no acute distress, alert, awake, confusion, lethargic, patient obtunded and other ( expressive aphasia) Nutritional Appearance: average body habitus, well nourished and thin Orientation/consciousness: confusion, patient obtunded and lethargic Limitations: no limitations HEENT: Head: Yes normocephalic and Yes atraumatic Eyes: Sclerae: sclerae normal Pupils: Equal, round and reactive pupils present EOM: EOMs intact bilaterally Neck: Neck: Yes no lymphadenopathy, Yes trachea midline, Yes supple and Yes no JVD Resp: Other: clear to auscultation bilaterally no rales rhonchi o Effort & Inspection: normal respiratory effort, able to speak in complete sentences, no respiratory distress and no use of accessory muscles Auscultation: clear to auscultation bilaterally and crackles ( mild bilateral) Cardio: Other: no S4; positive S1-S2; no S3 murmurs rubs or gallops Jugular venous distension: no JVD Palpation: normal PMI Rate: regular rate, bradycardic and tachycardic Rhythm: regular rhythm Heart sounds: S1 normal heart sound present, S2 normal heart sound present, no click, no gallops, no murmurs and no rubs GI: Other: soft nontender nondistended normoactive bowel sounds Inspection: No distended Palpation (GI): Soft to palpation and Other GI palpation findings present ( Nontender) Auscultation: normal bowel sounds Skin: Other: right gluteal faciotomy incision well healing General skin exam: no rashes or lesions noted Neuro: Other: unable to obtain secondary to inability to follow cues General: moves all extremities, confusion and patient obtunded Cranial nerves: Yes Equal, round and reactive pupils present Extrem: Other: no edema. Muscle wasting throughout General: Yes no clubbing, cyanosis or edema, Yes no pedal edema, No clubbing, No cyanosis, Yes edema ( 1+ bilateral) and Yes other Objective Data Active Medications Acetaminophen (Acetaminophen Oral Liquid 650 Mg/20.3 Ml Solution) 650 mg PO Q6H PRN PRN Reason: Fever Last Admin: 06/05/23 11:12 Dose: 650 mg Documented By: SUNIL Aspirin (Aspirin 81 Mg Tab.Chew) 81 mg PO DAILY [facility] Last Admin: 06/06/23 09:19 Dose: 81 mg Documented By: DIAZ Atorvastatin Calcium (Atorvastatin Calcium 40 Mg Tablet) 40 mg PO BEDTIME [facility] Last Admin: 06/06/23 20:22 Dose: 40 mg Documented By: MARYANN Baclofen (Baclofen 10 Mg Tablet) 10 mg PO TID [facility] Last Admin: 06/06/23 20:22 Dose: 10 mg Documented By: MARYANN Folic Acid (Folic Acid 1 Mg Tablet) 1 mg PO DAILY [facility] Last Admin: 06/06/23 09:18 Dose: 1 mg Documented By: DIAZ Heparin Sodium (Porcine) (Heparin Sodium,Porcine 5,000 Unit/Ml Vial) 5,000 unit SUBCUT Q8H [facility] Last Admin: 06/07/23 04:22 Dose: Not Given Documented By: MARYANN Non-Admin Reason: Patient Refused Metoprolol Tartrate (Metoprolol Tartrate 12.5 Mg Halftab) 12.5 mg PO BID [facility]; Protocol Last Admin: 06/06/23 20:22 Dose: 12.5 mg Documented By: MARYANN Multivitamins/Vitamin C (Multivitamin Tablet) 1 tab PO DAILY [facility] Last Admin: 06/06/23 09:19 Dose: 1 tab Documented By: DIAZ Naloxone HCl (Naloxone Hcl 0.4 Mg/Ml Vial) 0.2 mg IVPUSH Q2M PRN PRN Reason: Excessive sedation or RR < 8 Nystatin (Nystatin Powder 15 Gm Bottle) 1 appl TOPICAL TID [facility]; Protocol Last Admin: 06/06/23 20:28 Dose: Not Given Documented By: MARYANN Non-Admin Reason: Patient Refused Olanzapine (Olanzapine 10 Mg Tablet) 10 mg PO BEDTIME [facility] Last Admin: 06/06/23 20:22 Dose: 10 mg Documented By: MARYANN Sertraline HCl (Sertraline Hcl 50 Mg Tablet) 50 mg PO DAILY [facility] Last Admin: 06/06/23 09:18 Dose: 50 mg Documented By: DIAZ Thiamine HCl (Thiamine Hcl 100 Mg Tablet) 100 mg PO DAILY [facility] Last Admin: 06/06/23 09:20 Dose: 100 mg Documented By: DIAZ Labs 05/07/23 06:02 05/30/23 05:34 Assessment and Plan (1) Anoxic encephalopathy: Status: Acute Plan 28-year-old man with underlying history of schizophrenia, alcohol use, marijuana use?admitted on 04/08/2023 after he was noted to be unresponsive by his girlfriend for unclear amount of time. Patient was transported by EMS to emergency room where he was intubated for hypoxia and respiratory distress.? On further evaluation patient with imaging finding of aspiration and left pneumothorax.? Initial left mid axillary chest tube placed in emergency room with persistence of pneumothorax and questionable subdiaphragmatic placement.? Chest tube removed and replaced with left midclavicular in 3rd intercostal space with air evacuation and improvement in pneumothorax.? Patient also noted to have acute kidney injury and rhabdomyolysis and started on IV fluid hydration. He underwent right gluteal fasciotomy with significant improvement in his CPK and renal function.? However, remains persistently encephalopathic.? MRI on 04/10/2023 with bilateral cerebral anoxic related encephalopathy. ? Evaluated by neurology with prognosis consider to be guarded, but not catastrophic. Overall with slow neurologic improvement, With significant improvement on 04/23/2023. extubated 04/23/2023 and downgraded to the medical floor on 04/25. Limited improvement in responsiveness. 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 medical management at this time -lopressors, asa outpatient workup when appropriate Acute renal failure resolved dvt prophylaxis - Heparin sq Full Code DISPO plan for extensive rehab- brain rehab facility recommended Has [facility] guardian, pending SNF placement. Requires continued hospitalization for safe disposition. Time Spent With Patient Time: Total time managing care of this patient today ____ minutes. Quality Stroke Does the patient have a stroke diagnosis?: No VTE Prior VTE?: No VTE Risk Level:: Medical - moderate - high VTE Device Contraindication: N/A - Device Ordered VTE Drug Contraindication: N/A - Med Ordered
[2023-06-07] MEDS: Baclofen 10 MG TABLET PO ×3 (08:49→20:13)
[2023-06-07] MEDS: Aspirin 81 MG TAB.CHEW PO (08:49)
[2023-06-07] MEDS: Multivitamin TABLET 1 TAB PO (08:49)
[2023-06-07] MEDS: Nystatin Powder 15 GM BOTTLE 1 APPL TOPICAL ×3 (08:50→20:13)
[2023-06-07] MEDS: Sertraline HCL 50 MG TABLET PO (08:50)
[2023-06-07] MEDS: Thiamine HCL 100 MG TABLET PO (08:50)
[2023-06-07] MEDS: Folic Acid 1 MG TABLET PO (08:50)
[2023-06-07] MEDS: Heparin Sodium,Porcine 5,000 UNIT/ML VIAL 5000 UNIT SUBCUT ×2 (12:23→20:18)
[2023-06-07 15:27] VITALS: BP 118/74; PULSE 68; RESP 16; TEMP 36.8; O2SAT 98
[2023-06-07 19:24] VITALS: BP 116/63; PULSE 68; RESP 16; TEMP 36.5; O2SAT 94
[2023-06-07] MEDS: Metoprolol Tartrate 12.5 MG HALFTAB PO (20:12)
[2023-06-07] MEDS: Atorvastatin Calcium 40 MG TABLET PO (20:13)
[2023-06-07] MEDS: OLANZapine 10 MG TABLET PO (20:13)
[2023-06-08 03:28] VITALS: BP 119/79; PULSE 54; RESP 16; TEMP 36; O2SAT 97
[2023-06-08 06:00] VITALS: BMI 21.0
[2023-06-08 07:29] VITALS: BP 127/82; PULSE 53; RESP 16; TEMP 36.7; O2SAT 99
--- NOTE | 2023-06-08 08:10 | HO.PM.IMPN ---
Subjective Subjective Date of Service: 06/08/23 Interval History: no complaints Neurologic Neurologic: Reports confusion Psychiatric Psychiatric: Reports confusion Physical Exam Vital Signs: Vital Signs: Last Vital Signs Temp 98.1 F 06/08/23 07:29 Pulse 53 06/08/23 07:29 Resp 16 06/08/23 07:29 BP 127/82 06/08/23 07:29 Pulse Ox 99 06/08/23 07:29 O2 Del Method Room Air 06/08/23 07:29 O2 Flow Rate 98 05/17/23 20:00 FiO2 30 04/23/23 11:00 BMI result Body Mass Index 21.0 Const: Other: Constitutional : Awake, not in distress Neck : Normal inspection, Supple Cardiovascular : RRR, no JVP, no lower extremity edema Respiratory : good bilateral air entry, no crackles, wheezes or rhonchi Gastrointestinal: soft, lax, Normal bowel sounds, Non tender Skin : Warm, Dry Neurological : Alert & oriented about self and place, muscle wasting LEs bilaterally, moving USs, weak LEs, General: cooperative, comfortable, no acute distress, alert, awake, confusion, lethargic, patient obtunded and other ( expressive aphasia) Nutritional Appearance: average body habitus, well nourished and thin Orientation/consciousness: confusion, patient obtunded and lethargic Limitations: no limitations HEENT: Head: Yes normocephalic and Yes atraumatic Eyes: Sclerae: sclerae normal Pupils: Equal, round and reactive pupils present EOM: EOMs intact bilaterally Neck: Neck: Yes no lymphadenopathy, Yes trachea midline, Yes supple and Yes no JVD Resp: Other: clear to auscultation bilaterally no rales rhonchi o Effort & Inspection: normal respiratory effort, able to speak in complete sentences, no respiratory distress and no use of accessory muscles Auscultation: clear to auscultation bilaterally and crackles ( mild bilateral) Cardio: Other: no S4; positive S1-S2; no S3 murmurs rubs or gallops Jugular venous distension: no JVD Palpation: normal PMI Rate: regular rate, bradycardic and tachycardic Rhythm: regular rhythm Heart sounds: S1 normal heart sound present, S2 normal heart sound present, no click, no gallops, no murmurs and no rubs GI: Other: soft nontender nondistended normoactive bowel sounds Inspection: No distended Palpation (GI): Soft to palpation and Other GI palpation findings present ( Nontender) Auscultation: normal bowel sounds Skin: Other: right gluteal faciotomy incision well healing General skin exam: no rashes or lesions noted Neuro: Other: unable to obtain secondary to inability to follow cues General: moves all extremities, confusion and patient obtunded Cranial nerves: Yes Equal, round and reactive pupils present Extrem: Other: no edema. Muscle wasting throughout General: Yes no clubbing, cyanosis or edema, Yes no pedal edema, No clubbing, No cyanosis, Yes edema ( 1+ bilateral) and Yes other Objective Data Active Medications Acetaminophen (Acetaminophen Oral Liquid 650 Mg/20.3 Ml Solution) 650 mg PO Q6H PRN PRN Reason: Fever Last Admin: 06/05/23 11:12 Dose: 650 mg Documented By: SUNIL Aspirin (Aspirin 81 Mg Tab.Chew) 81 mg PO DAILY [facility] Last Admin: 06/07/23 08:49 Dose: 81 mg Documented By: DIAZ Atorvastatin Calcium (Atorvastatin Calcium 40 Mg Tablet) 40 mg PO BEDTIME [facility] Last Admin: 06/07/23 20:13 Dose: 40 mg Documented By: JADIEL Baclofen (Baclofen 10 Mg Tablet) 10 mg PO TID [facility] Last Admin: 06/07/23 20:13 Dose: 10 mg Documented By: JADIEL Folic Acid (Folic Acid 1 Mg Tablet) 1 mg PO DAILY [facility] Last Admin: 06/07/23 08:50 Dose: 1 mg Documented By: DIAZ Heparin Sodium (Porcine) (Heparin Sodium,Porcine 5,000 Unit/Ml Vial) 5,000 unit SUBCUT Q8H [facility] Last Admin: 06/08/23 03:07 Dose: Not Given Documented By: JADIEL Non-Admin Reason: Patient Refused Metoprolol Tartrate (Metoprolol Tartrate 12.5 Mg Halftab) 12.5 mg PO BID [facility]; Protocol Last Admin: 06/07/23 20:12 Dose: 12.5 mg Documented By: JADIEL Multivitamins/Vitamin C (Multivitamin Tablet) 1 tab PO DAILY [facility] Last Admin: 06/07/23 08:49 Dose: 1 tab Documented By: DIAZ Naloxone HCl (Naloxone Hcl 0.4 Mg/Ml Vial) 0.2 mg IVPUSH Q2M PRN PRN Reason: Excessive sedation or RR < 8 Nystatin (Nystatin Powder 15 Gm Bottle) 1 appl TOPICAL TID [facility]; Protocol Last Admin: 06/07/23 20:13 Dose: 1 appl Documented By: JADIEL Olanzapine (Olanzapine 10 Mg Tablet) 10 mg PO BEDTIME [facility] Last Admin: 06/07/23 20:13 Dose: 10 mg Documented By: JADIEL Sertraline HCl (Sertraline Hcl 50 Mg Tablet) 50 mg PO DAILY [facility] Last Admin: 06/07/23 08:50 Dose: 50 mg Documented By: DIAZ Thiamine HCl (Thiamine Hcl 100 Mg Tablet) 100 mg PO DAILY [facility] Last Admin: 06/07/23 08:50 Dose: 100 mg Documented By: DIAZ Labs 05/07/23 06:02 05/30/23 05:34 Assessment and Plan (1) Anoxic encephalopathy: Status: Acute Plan 28-year-old man with underlying history of schizophrenia, alcohol use, marijuana use?admitted on 04/08/2023 after he was noted to be unresponsive by his girlfriend for unclear amount of time. Patient was transported by EMS to emergency room where he was intubated for hypoxia and respiratory distress.? On further evaluation patient with imaging finding of aspiration and left pneumothorax.? Initial left mid axillary chest tube placed in emergency room with persistence of pneumothorax and questionable subdiaphragmatic placement.? Chest tube removed and replaced with left midclavicular in 3rd intercostal space with air evacuation and improvement in pneumothorax.? Patient also noted to have acute kidney injury and rhabdomyolysis and started on IV fluid hydration. He underwent right gluteal fasciotomy with significant improvement in his CPK and renal function.? However, remains persistently encephalopathic.? MRI on 04/10/2023 with bilateral cerebral anoxic related encephalopathy. ? Evaluated by neurology with prognosis consider to be guarded, but not catastrophic. Overall with slow neurologic improvement, With significant improvement on 04/23/2023. extubated 04/23/2023 and downgraded to the medical floor on 04/25. Limited improvement in responsiveness. 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 medical management at this time -lopressors, asa outpatient workup when appropriate Acute renal failure resolved dvt prophylaxis - Heparin sq Full Code DISPO plan for extensive rehab- brain rehab facility recommended Has [facility] guardian, pending SNF placement. Requires continued hospitalization for safe disposition. Time Spent With Patient Time: Total time managing care of this patient today ____ minutes. Quality Stroke Does the patient have a stroke diagnosis?: No VTE Prior VTE?: No VTE Risk Level:: Medical - moderate - high VTE Device Contraindication: N/A - Device Ordered VTE Drug Contraindication: N/A - Med Ordered
[2023-06-08] MEDS: Aspirin 81 MG TAB.CHEW PO (09:08)
[2023-06-08] MEDS: Folic Acid 1 MG TABLET PO (09:08)
[2023-06-08] MEDS: Thiamine HCL 100 MG TABLET PO (09:08)
[2023-06-08] MEDS: Metoprolol Tartrate 12.5 MG HALFTAB PO ×2 (09:08→19:24)
[2023-06-08] MEDS: Baclofen 10 MG TABLET PO ×3 (09:08→19:24)
[2023-06-08] MEDS: Sertraline HCL 50 MG TABLET PO (09:09)
[2023-06-08] MEDS: Multivitamin TABLET 1 TAB PO (09:09)
--- NOTE | 2023-06-08 12:09 | MHC.CLN ---
F/U DIET=REGULAR. ENSURE TID PROVIDES ADDITIONAL 1050 KCALS, 60 G PROTEIN. SUPPLEMENT APPROPRIATE TO PROMOTE SKIN INTEGRITY AND INCREASE NUTRITIONAL INTAKE. SKIN: NO PRESSURE AREAS. MOST RECENT INTAKE AT MEALS USUALLY 50-100%. WEIGHT APPEARS STABLE X 2 WEEKS. CONTINUE CURRENT DIET AND SUPPLEMENT. ENCOURAGE INTAKE ABLE. RD TO FOLLOW WEEKLY.
--- NOTE | 2023-06-08 12:56 | MHC.CM.PN ---
per rounds pt ready for dc bed search continues
[2023-06-08] MEDS: Nystatin Powder 15 GM BOTTLE 1 APPL TOPICAL ×2 (15:00→19:25)
[2023-06-08 15:07] VITALS: BP 106/57; PULSE 74; RESP 16; TEMP 36.7; O2SAT 97
[2023-06-08 19:23] VITALS: BP 113/70; PULSE 70; RESP 18; TEMP 36.8; O2SAT 97
[2023-06-08] MEDS: Atorvastatin Calcium 40 MG TABLET PO (19:24)
[2023-06-08] MEDS: OLANZapine 10 MG TABLET PO (19:24)
[2023-06-09 03:48] VITALS: BP 117/71; PULSE 52; RESP 18; TEMP 36.4; O2SAT 97
[2023-06-09 07:46] VITALS: BP 111/69; PULSE 57; RESP 17; TEMP 36.2; O2SAT 97
[2023-06-09] MEDS: Folic Acid 1 MG TABLET PO (08:28)
[2023-06-09] MEDS: Thiamine HCL 100 MG TABLET PO (08:28)
[2023-06-09] MEDS: Aspirin 81 MG TAB.CHEW PO (08:28)
[2023-06-09] MEDS: Multivitamin TABLET 1 TAB PO (08:28)
[2023-06-09] MEDS: Sertraline HCL 50 MG TABLET PO (08:28)
[2023-06-09] MEDS: Metoprolol Tartrate 12.5 MG HALFTAB PO ×2 (08:28→19:42)
[2023-06-09] MEDS: Nystatin Powder 15 GM BOTTLE 1 APPL TOPICAL ×2 (08:29→19:45)
[2023-06-09] MEDS: Baclofen 10 MG TABLET PO ×3 (08:29→19:42)
--- NOTE | 2023-06-09 08:37 | HO.PM.IMPN ---
Subjective Subjective Date of Service: 06/09/23 Interval History: no complaints Neurologic Neurologic: Reports confusion Psychiatric Psychiatric: Reports confusion Physical Exam Vital Signs: Vital Signs: Last Vital Signs Temp 97.2 F 06/09/23 07:46 Pulse 57 06/09/23 07:46 Resp 17 06/09/23 07:46 BP 111/69 06/09/23 07:46 Pulse Ox 97 06/09/23 07:46 O2 Del Method Room Air 06/09/23 07:46 O2 Flow Rate 98 05/17/23 20:00 FiO2 30 04/23/23 11:00 BMI result Body Mass Index 21.0 Const: Other: Constitutional : Awake, not in distress Neck : Normal inspection, Supple Cardiovascular : RRR, no JVP, no lower extremity edema Respiratory : good bilateral air entry, no crackles, wheezes or rhonchi Gastrointestinal: soft, lax, Normal bowel sounds, Non tender Skin : Warm, Dry Neurological : Alert & oriented about self and place, muscle wasting LEs bilaterally, moving USs, weak LEs, General: cooperative, comfortable, no acute distress, alert, awake, confusion, lethargic, patient obtunded and other ( expressive aphasia) Nutritional Appearance: average body habitus, well nourished and thin Orientation/consciousness: confusion, patient obtunded and lethargic Limitations: no limitations HEENT: Head: Yes normocephalic and Yes atraumatic Eyes: Sclerae: sclerae normal Pupils: Equal, round and reactive pupils present EOM: EOMs intact bilaterally Neck: Neck: Yes no lymphadenopathy, Yes trachea midline, Yes supple and Yes no JVD Resp: Other: clear to auscultation bilaterally no rales rhonchi o Effort & Inspection: normal respiratory effort, able to speak in complete sentences, no respiratory distress and no use of accessory muscles Auscultation: clear to auscultation bilaterally and crackles ( mild bilateral) Cardio: Other: no S4; positive S1-S2; no S3 murmurs rubs or gallops Jugular venous distension: no JVD Palpation: normal PMI Rate: regular rate, bradycardic and tachycardic Rhythm: regular rhythm Heart sounds: S1 normal heart sound present, S2 normal heart sound present, no click, no gallops, no murmurs and no rubs GI: Other: soft nontender nondistended normoactive bowel sounds Inspection: No distended Palpation (GI): Soft to palpation and Other GI palpation findings present ( Nontender) Auscultation: normal bowel sounds Skin: Other: right gluteal faciotomy incision well healing General skin exam: no rashes or lesions noted Neuro: Other: unable to obtain secondary to inability to follow cues General: moves all extremities, confusion and patient obtunded Cranial nerves: Yes Equal, round and reactive pupils present Extrem: Other: no edema. Muscle wasting throughout General: Yes no clubbing, cyanosis or edema, Yes no pedal edema, No clubbing, No cyanosis, Yes edema ( 1+ bilateral) and Yes other Objective Data Active Medications Acetaminophen (Acetaminophen Oral Liquid 650 Mg/20.3 Ml Solution) 650 mg PO Q6H PRN PRN Reason: Fever Last Admin: 06/05/23 11:12 Dose: 650 mg Documented By: SUNIL Aspirin (Aspirin 81 Mg Tab.Chew) 81 mg PO DAILY [facility] Last Admin: 06/09/23 08:28 Dose: 81 mg Documented By: RICKEY Atorvastatin Calcium (Atorvastatin Calcium 40 Mg Tablet) 40 mg PO BEDTIME [facility] Last Admin: 06/08/23 19:24 Dose: 40 mg Documented By: RODOLFO Baclofen (Baclofen 10 Mg Tablet) 10 mg PO TID [facility] Last Admin: 06/09/23 08:29 Dose: 10 mg Documented By: RICKEY Folic Acid (Folic Acid 1 Mg Tablet) 1 mg PO DAILY [facility] Last Admin: 06/09/23 08:28 Dose: 1 mg Documented By: RICKEY Heparin Sodium (Porcine) (Heparin Sodium,Porcine 5,000 Unit/Ml Vial) 5,000 unit SUBCUT Q8H [facility] Last Admin: 06/09/23 03:18 Dose: Not Given Documented By: RODOLFO Non-Admin Reason: Patient Refused Metoprolol Tartrate (Metoprolol Tartrate 12.5 Mg Halftab) 12.5 mg PO BID [facility]; Protocol Last Admin: 06/09/23 08:28 Dose: 12.5 mg Documented By: RICKEY Multivitamins/Vitamin C (Multivitamin Tablet) 1 tab PO DAILY [facility] Last Admin: 06/09/23 08:28 Dose: 1 tab Documented By: RICKEY Naloxone HCl (Naloxone Hcl 0.4 Mg/Ml Vial) 0.2 mg IVPUSH Q2M PRN PRN Reason: Excessive sedation or RR < 8 Nystatin (Nystatin Powder 15 Gm Bottle) 1 appl TOPICAL TID [facility]; Protocol Last Admin: 06/09/23 08:29 Dose: 1 appl Documented By: RICKEY Olanzapine (Olanzapine 10 Mg Tablet) 10 mg PO BEDTIME [facility] Last Admin: 06/08/23 19:24 Dose: 10 mg Documented By: RODOLFO Sertraline HCl (Sertraline Hcl 50 Mg Tablet) 50 mg PO DAILY [facility] Last Admin: 06/09/23 08:28 Dose: 50 mg Documented By: RICKEY Thiamine HCl (Thiamine Hcl 100 Mg Tablet) 100 mg PO DAILY [facility] Last Admin: 06/09/23 08:28 Dose: 100 mg Documented By: RICKEY Labs 05/07/23 06:02 05/30/23 05:34 Assessment and Plan (1) Anoxic encephalopathy: Status: Acute Plan 28-year-old man with underlying history of schizophrenia, alcohol use, marijuana use?admitted on 04/08/2023 after he was noted to be unresponsive by his girlfriend for unclear amount of time. Patient was transported by EMS to emergency room where he was intubated for hypoxia and respiratory distress.? On further evaluation patient with imaging finding of aspiration and left pneumothorax.? Initial left mid axillary chest tube placed in emergency room with persistence of pneumothorax and questionable subdiaphragmatic placement.? Chest tube removed and replaced with left midclavicular in 3rd intercostal space with air evacuation and improvement in pneumothorax.? Patient also noted to have acute kidney injury and rhabdomyolysis and started on IV fluid hydration. He underwent right gluteal fasciotomy with significant improvement in his CPK and renal function.? However, remains persistently encephalopathic.? MRI on 04/10/2023 with bilateral cerebral anoxic related encephalopathy. ? Evaluated by neurology with prognosis consider to be guarded, but not catastrophic. Overall with slow neurologic improvement, With significant improvement on 04/23/2023. extubated 04/23/2023 and downgraded to the medical floor on 04/25. has since been awaiting placement, with ongoing improvement in mental status, improved speech, awareness, motor. 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 medical management at this time -lopressors, asa outpatient workup when appropriate Acute renal failure resolved dvt prophylaxis - Heparin sq Full Code DISPO plan for extensive rehab- brain rehab facility recommended Has [facility] guardian, pending SNF placement. Requires continued hospitalization for safe disposition. Time Spent With Patient Time: Total time managing care of this patient today ____ minutes. Quality Stroke Does the patient have a stroke diagnosis?: No VTE Prior VTE?: No VTE Risk Level:: Medical - moderate - high VTE Device Contraindication: N/A - Device Ordered VTE Drug Contraindication: N/A - Med Ordered
[2023-06-09 16:01] VITALS: BP 115/66; PULSE 72; RESP 18; TEMP 36.4; O2SAT 98
[2023-06-09 19:24] VITALS: BP 123/73; PULSE 68; RESP 16; TEMP 36.2; O2SAT 97
[2023-06-09] MEDS: OLANZapine 10 MG TABLET PO (19:42)
[2023-06-09] MEDS: Atorvastatin Calcium 40 MG TABLET PO (19:42)
[2023-06-10 04:00] VITALS: BP 115/70; PULSE 75; RESP 16; TEMP 36.1; O2SAT 96
[2023-06-10 07:45] VITALS: BP 116/74; PULSE 62; RESP 16; TEMP 36.2; O2SAT 98
[2023-06-10] MEDS: Baclofen 10 MG TABLET PO ×3 (10:00→21:22)
[2023-06-10] MEDS: Aspirin 81 MG TAB.CHEW PO (10:00)
[2023-06-10] MEDS: Multivitamin TABLET 1 TAB PO (10:38)
[2023-06-10] MEDS: Metoprolol Tartrate 12.5 MG HALFTAB PO ×2 (10:38→21:23)
[2023-06-10] MEDS: Folic Acid 1 MG TABLET PO (10:39)
[2023-06-10] MEDS: Sertraline HCL 50 MG TABLET PO (10:39)
[2023-06-10] MEDS: Thiamine HCL 100 MG TABLET PO (10:39)
[2023-06-10] MEDS: Nystatin Powder 15 GM BOTTLE 1 APPL TOPICAL ×3 (10:41→23:09)
[2023-06-10] MEDS: Acetaminophen Oral Liquid 650 MG/20.3 ML SOLUTION PO (11:19)
[2023-06-10] MEDS: Ibuprofen 400 MG TABLET PO (11:40)
[2023-06-10 12:18] LABS: Creatinine Clr Calc Pharmacy 154.6; Estimated Glomerular Filt Rate > 60
--- NOTE | 2023-06-10 13:56 | P.PNIM_ITS ---
Subjective Subjective Date of Service: 06/10/23 Interval History: no acute issues overnight ambulated 30 ft yesterday, today requesting to have nails trimmed, denies nausea vomiting, no abdominal pain tolerating diet, no fevers, no chills, cooperative with care. Review of Systems all other system reviewed and negative. Physical Exam Vital Signs: Vital Signs: Last Vital Signs Temp 97.2 F 06/10/23 07:45 Pulse 62 06/10/23 07:45 Resp 16 06/10/23 07:45 BP 116/74 06/10/23 07:45 Pulse Ox 98 06/10/23 07:45 O2 Del Method Room Air 06/10/23 07:45 O2 Flow Rate 98 05/17/23 20:00 FiO2 30 04/23/23 11:00 BMI result Body Mass Index 21.0 Const: Other: Constitutional : Awake, not in distress Neck : Normal inspection, Supple Cardiovascular : RRR, no JVP, no lower extremity edema Respiratory : good bilateral air entry,? no crackles, wheezes or rhonchi Gastrointestinal:? soft, Normal bowel sounds, Non tender Skin : Warm, Dry extremities no edema Objective Data Active Medications Acetaminophen (Acetaminophen Oral Liquid 650 Mg/20.3 Ml Solution) 650 mg PO Q6H PRN PRN Reason: Fever Last Admin: 06/10/23 11:19 Dose: 650 mg Documented By: LEEANNA Aspirin (Aspirin 81 Mg Tab.Chew) 81 mg PO DAILY [facility] Last Admin: 06/10/23 10:00 Dose: 81 mg Documented By: LEEANNA Atorvastatin Calcium (Atorvastatin Calcium 40 Mg Tablet) 40 mg PO BEDTIME [facility] Last Admin: 06/09/23 19:42 Dose: 40 mg Documented By: RODOLFO Baclofen (Baclofen 10 Mg Tablet) 10 mg PO TID [facility] Last Admin: 06/10/23 10:00 Dose: 10 mg Documented By: LEEANNA Docusate Sodium (Docusate Sodium 100 Mg Capsule) 200 mg PO BEDTIME [facility] Enoxaparin Sodium (Enoxaparin Sodium 40 Mg/0.4 Ml Syringe) 40 mg SUBCUT Q24H [facility] Folic Acid (Folic Acid 1 Mg Tablet) 1 mg PO DAILY [facility] Last Admin: 06/10/23 10:39 Dose: 1 mg Documented By: LEEANNA Ibuprofen (Ibuprofen 400 Mg Tablet) 400 mg PO Q8H PRN PRN Reason: Pain, Moderate(Pain Scale 4-6) Last Admin: 06/10/23 11:40 Dose: 400 mg Documented By: LEEANNA Magnesium Hydroxide (Milk Of Magnesia 30 Ml Oral.Susp) 30 ml PO DAILY PRN PRN Reason: Constipation Metoprolol Tartrate (Metoprolol Tartrate 12.5 Mg Halftab) 12.5 mg PO BID [facility]; Protocol Last Admin: 06/10/23 10:38 Dose: 12.5 mg Documented By: LEEANNA Multivitamins/Vitamin C (Multivitamin Tablet) 1 tab PO DAILY [facility] Last Admin: 06/10/23 10:38 Dose: 1 tab Documented By: LEEANNA Naloxone HCl (Naloxone Hcl 0.4 Mg/Ml Vial) 0.2 mg IVPUSH Q2M PRN PRN Reason: Excessive sedation or RR < 8 Nystatin (Nystatin Powder 15 Gm Bottle) 1 appl TOPICAL TID [facility]; Protocol Last Admin: 06/10/23 10:41 Dose: 1 appl Documented By: LEEANNA Olanzapine (Olanzapine 10 Mg Tablet) 10 mg PO BEDTIME [facility] Last Admin: 06/09/23 19:42 Dose: 10 mg Documented By: RODOLFO Sertraline HCl (Sertraline Hcl 50 Mg Tablet) 50 mg PO DAILY [facility] Last Admin: 06/10/23 10:39 Dose: 50 mg Documented By: LEEANNA Thiamine HCl (Thiamine Hcl 100 Mg Tablet) 100 mg PO DAILY [facility] Last Admin: 06/10/23 10:39 Dose: 100 mg Documented By: LEEANNA Labs 05/07/23 06:02 06/10/23 11:55 Labs: Laboratory Results - last 24 hr 06/10/23 11:55 Estim Creat Clear Calc 154.6 Estimated GFR > 60 Assessment and Plan (1) Anoxic encephalopathy: Status: Acute Plan 28-year-old man with underlying history of schizophrenia, alcohol use, marijuana use?admitted on 04/08/2023 after he was noted to be unresponsive by his girlfrien d for unclear amount of time. Patient was transported by EMS to emergency room where he was intubated for hypoxia and respiratory distress.? On further evaluation patient with imaging finding of aspiration and left pneumothorax.? Initial left mid axillary chest tube placed in emergency room with persistence of pneumothorax and questionable subdiaphragmatic placement.? Chest tube removed and replaced with left midclavicular in 3rd intercostal space with air evacuation and improvement in pneumothorax.? Patient also noted to have acute kidney injury and rhabdomyolysis and started on IV fluid hydration. He underwent right gluteal fasciotomy with significant improvement in his CPK and renal funct ion.? However, remains persistently encephalopathic.? MRI on 04/10/2023 with bilateral cerebral anoxic related encephalopathy. ? Evaluated by neurology with prognosis consider to be guarded, but not catastrophic. Overall with slow neurologic improvement, With significant improvement on 04/23/2023. extubated 04/23/2023 and downgraded to the medical floor on 04/25. has since been awaiting placement, with ongoing improvement in mental status, improved speech, awareness, motor. Anoxic brain injury secondary to aspiration pneumonia related to polysubstance overdose with anoxic encephalopathy continues to improve , walked 30 ft yesterday continue PT/OT, plan for more aggressive rehab Baclofen as muscle relaxant, added Motrin for pain metoprolol Schizophrenia in backdrop SHERI sertraline 50mg/olanzapine 10mg HS psych following as needed NSTEMI, resolved s/p heparin drip.... medical management at this time -lopressors, asa outpatient workup when appropriate Acute renal failure resolved dvt prophylaxis - patient refusing heparin changed to Lovenox once daily Full Code DISPO plan for extensive rehab- brain rehab facility recommended Has [facility] guardian, pending SNF placement. Requires continued hospitalization for safe disposition. Time Spent With Patient Time: Total time managing care of this patient today ____ minutes. Quality Stroke Does the patient have a stroke diagnosis?: No VTE Prior VTE?: No VTE Risk Level:: Medical - moderate - high VTE Device Contraindication: N/A - Device Ordered VTE Drug Contraindication: N/A - Med Ordered
--- NOTE | 2023-06-10 14:30 | MHC.CM.PN ---
prrounds pt jose ramon for dc stll searching for accepting facility
[2023-06-10] MEDS: Enoxaparin Sodium 40 MG/0.4 ML SYRINGE SUBCUT (15:20)
[2023-06-10 16:00] VITALS: BP 120/68; PULSE 63; RESP 18; TEMP 36.6; O2SAT 99
[2023-06-10 20:07] VITALS: BP 122/71; PULSE 76; RESP 16; TEMP 36.6; O2SAT 98
--- NOTE | 2023-06-10 20:35 | PC.NURSE ---
Assumed care at 07:00. Patient more alert and oriented, knows date to within one day, follows commands, interactive, slow responses, but appropriate, slightly vague about situation. Worked with PT, ambulated and OOB to chair and to sink to shave. Patient reported bilateral knee pain left > right worse with standing and walking, no pain at rest, reported to MD, gave PRN tylenol, and also new order for ibuprofen administered with effect. Patient refused heparin per patient because it is a needle, MD notified, new order for lovenox, patient refused, but then after education about risks, accepted, then struck RN's hand during administration, then successful administration with SPRING FLOOR SERVICE WORKER helping. Voided without issue today, bladder scans deferred, no distress.
[2023-06-10] MEDS: Atorvastatin Calcium 40 MG TABLET PO (21:22)
[2023-06-10] MEDS: Docusate Sodium 100 MG CAPSULE 200 MG PO (21:22)
[2023-06-10] MEDS: OLANZapine 10 MG TABLET PO (21:23)
[2023-06-11 03:50] VITALS: BP 124/78; PULSE 57; RESP 14; TEMP 36.2; O2SAT 96
[2023-06-11 07:40] VITALS: BP 113/69; PULSE 50; RESP 17; TEMP 36.7; O2SAT 97
[2023-06-11] MEDS: Baclofen 10 MG TABLET PO ×3 (08:58→20:40)
[2023-06-11] MEDS: Metoprolol Tartrate 12.5 MG HALFTAB PO ×2 (08:59→20:40)
[2023-06-11] MEDS: Multivitamin TABLET 1 TAB PO (08:59)
[2023-06-11] MEDS: Folic Acid 1 MG TABLET PO (08:59)
[2023-06-11] MEDS: Aspirin 81 MG TAB.CHEW PO (08:59)
[2023-06-11] MEDS: Sertraline HCL 50 MG TABLET PO (08:59)
[2023-06-11] MEDS: Thiamine HCL 100 MG TABLET PO (08:59)
[2023-06-11] MEDS: Ibuprofen 400 MG TABLET PO (09:05)
[2023-06-11] MEDS: Nystatin Powder 15 GM BOTTLE 1 APPL TOPICAL ×3 (09:06→20:40)
[2023-06-11 09:07] VITALS: PULSE 62
--- NOTE | 2023-06-11 15:07 | P.PNIM_ITS ---
Subjective Subjective Date of Service: 06/11/23 Interval History: resting comfortably offers no acute complaints, tolerating diet participating with physical therapy. no fevers, no chills, no shortness of breath, no headache, no lightheadedness, no dizziness. Review of Systems all other system reviewed and negative Physical Exam Vital Signs: Vital Signs: Last Vital Signs Temp 98.1 F 06/11/23 07:40 Pulse 62 06/11/23 09:07 Resp 17 06/11/23 07:40 BP 113/69 06/11/23 07:40 Pulse Ox 97 06/11/23 07:40 O2 Del Method Room Air 06/11/23 07:40 O2 Flow Rate 98 05/17/23 20:00 FiO2 30 04/23/23 11:00 BMI result Body Mass Index 21.0 Const: Other: Constitutional : Awake, not in distress Neck : Normal inspection, Supple Cardiovascular : RRR, no JVP, no lower extremity edema Respiratory : good bilateral air entry,? no crackles, wheezes or rhonchi Gastrointestinal:? soft,? Normal bowel sounds, Non tender Skin : Warm, Dry extremities no edema Objective Data Active Medications Acetaminophen (Acetaminophen Oral Liquid 650 Mg/20.3 Ml Solution) 650 mg PO Q6H PRN PRN Reason: Fever Last Admin: 06/10/23 11:19 Dose: 650 mg Documented By: LEEANNA Aspirin (Aspirin 81 Mg Tab.Chew) 81 mg PO DAILY [facility] Last Admin: 06/11/23 08:59 Dose: 81 mg Documented By: KANU Atorvastatin Calcium (Atorvastatin Calcium 40 Mg Tablet) 40 mg PO BEDTIME [facility] Last Admin: 06/10/23 21:22 Dose: 40 mg Documented By: MARYANN Baclofen (Baclofen 10 Mg Tablet) 10 mg PO TID [facility] Last Admin: 06/11/23 14:52 Dose: 10 mg Documented By: KANU Docusate Sodium (Docusate Sodium 100 Mg Capsule) 200 mg PO BEDTIME [facility] Last Admin: 06/10/23 21:22 Dose: 200 mg Documented By: MARYANN Enoxaparin Sodium (Enoxaparin Sodium 40 Mg/0.4 Ml Syringe) 40 mg SUBCUT Q24H [facility] Last Admin: 06/11/23 14:55 Dose: Not Given Documented By: KANU Non-Admin Reason: Patient Refused Folic Acid (Folic Acid 1 Mg Tablet) 1 mg PO DAILY [facility] Last Admin: 06/11/23 08:59 Dose: 1 mg Documented By: KANU Ibuprofen (Ibuprofen 400 Mg Tablet) 400 mg PO Q8H PRN PRN Reason: Pain, Moderate(Pain Scale 4-6) Last Admin: 06/11/23 09:05 Dose: 400 mg Documented By: KANU Magnesium Hydroxide (Milk Of Magnesia 30 Ml Oral.Susp) 30 ml PO DAILY PRN PRN Reason: Constipation Metoprolol Tartrate (Metoprolol Tartrate 12.5 Mg Halftab) 12.5 mg PO BID [facility]; Protocol Last Admin: 06/11/23 08:59 Dose: 12.5 mg Documented By: KANU Multivitamins/Vitamin C (Multivitamin Tablet) 1 tab PO DAILY [facility] Last Admin: 06/11/23 08:59 Dose: 1 tab Documented By: KANU Naloxone HCl (Naloxone Hcl 0.4 Mg/Ml Vial) 0.2 mg IVPUSH Q2M PRN PRN Reason: Excessive sedation or RR < 8 Nystatin (Nystatin Powder 15 Gm Bottle) 1 appl TOPICAL TID [facility]; Protocol Last Admin: 06/11/23 14:54 Dose: 1 appl Documented By: KANU Olanzapine (Olanzapine 10 Mg Tablet) 10 mg PO BEDTIME [facility] Last Admin: 06/10/23 21:23 Dose: 10 mg Documented By: MARYANN Sertraline HCl (Sertraline Hcl 50 Mg Tablet) 50 mg PO DAILY [facility] Last Admin: 06/11/23 08:59 Dose: 50 mg Documented By: KANU Thiamine HCl (Thiamine Hcl 100 Mg Tablet) 100 mg PO DAILY [facility] Last Admin: 06/11/23 08:59 Dose: 100 mg Documented By: KANU Labs 05/07/23 06:02 06/10/23 11:55 Assessment and Plan (1) Anoxic encephalopathy: Status: Acute Plan 28-year-old man with underlying history of schizophrenia, alcohol use, marijuana use?admitted on 04/08/2023 after he was noted to be unresponsive by his girlfriend for unclear amount of time. Patient was transported by EMS to emergency room where he was intubated for hypoxia and respiratory distress.? On further evaluation patient with imaging finding of aspiration and left pneumothorax.? Initial left mid axillary chest tube placed in emergency room with persistence of pneumothorax and questionable subdiaphragmatic placement.? Chest tube removed and replaced with left midclavicular in 3rd intercostal space with air evacuation and improvement in pneumothorax.? Patient also noted to have acute kidney injury and rhabdomyolysis and started on IV fluid hydration. He underwent right gluteal fasciotomy with significant improvement in his CPK and renal function.? However, remains persistently encephalopathic.? MRI on 04/10/2023 with bilateral cerebral anoxic related encephalopathy. ? Evaluated by neurology with prognosis consider to be guarded, but not catastrophic. Overall with slow neurologic improvement, With significant improvement on 04/23/2023. extubated 04/23/2023 and downgraded to the medical floor on 04/25. has since been awaiting placement, with ongoing improvement in mental status, improved speech, awareness, motor. Anoxic brain injury secondary to aspiration pneumonia related to polysubstance overdose with anoxic encephalopathy continues to improve , walked 30 ft continue PT/OT, plan for more aggressive rehab Baclofen as muscle relaxant, added Motrin prn for pain Schizophrenia in backdrop SHERI sertraline 50mg/olanzapine 10mg HS psych following as needed NSTEMI, resolved s/p heparin drip.... medical management at this time -lopressors, asa outpatient workup when appropriate Acute renal failure resolved dvt prophylaxis - patient refusing heparin changed to Lovenox once daily Full Code DISPO plan for extensive rehab- brain rehab facility recommended Has [facility] guardian, pending SNF placement. Requires continued hospitalization for safe disposition. Time Spent With Patient Time: Total time managing care of this patient today ____ minutes. Quality Stroke Does the patient have a stroke diagnosis?: No VTE Prior VTE?: No VTE Risk Level:: Medical - moderate - high VTE Device Contraindication: N/A - Device Ordered VTE Drug Contraindication: N/A - Med Ordered
[2023-06-11 15:48] VITALS: BP 128/71; PULSE 80; RESP 16; TEMP 36.4; O2SAT 97
--- NOTE | 2023-06-11 16:58 | MHC.SLORD ---
Speech Language Pathology Order Status: Attempted to see patient for INVESTMENT ACCOUNTANT tx, patient watching movie, refused treatment today. INVESTMENT ACCOUNTANT will continue to follow.
[2023-06-11 19:22] VITALS: BP 119/60; PULSE 80; RESP 18; TEMP 36.4; O2SAT 98
[2023-06-11] MEDS: Atorvastatin Calcium 40 MG TABLET PO (20:39)
[2023-06-11] MEDS: OLANZapine 10 MG TABLET PO (20:40)
[2023-06-11] MEDS: Docusate Sodium 100 MG CAPSULE 200 MG PO (20:40)
[2023-06-11 23:55] VITALS: BP 108/73; PULSE 54; RESP 16; TEMP 36.3; O2SAT 97
[2023-06-12] MEDS: Baclofen 10 MG TABLET PO ×3 (09:42→21:29)
[2023-06-12] MEDS: Metoprolol Tartrate 12.5 MG HALFTAB PO (09:42)
[2023-06-12] MEDS: Thiamine HCL 100 MG TABLET PO (09:42)
[2023-06-12] MEDS: Aspirin 81 MG TAB.CHEW PO (09:43)
[2023-06-12] MEDS: Folic Acid 1 MG TABLET PO (09:43)
[2023-06-12] MEDS: Sertraline HCL 50 MG TABLET PO (09:43)
[2023-06-12] MEDS: Multivitamin TABLET 1 TAB PO (09:43)
[2023-06-12] MEDS: Nystatin Powder 15 GM BOTTLE 1 APPL TOPICAL (09:46)
--- NOTE | 2023-06-12 11:37 | MHC.SLORD ---
Speech Language Pathology Order Status: Pt working w/ PT this morning. He has been tolerating a regular texture diet. LOGISTICS ASSOCIATE following for cognitive tx. Per EMR, pt still awaits placement.
[2023-06-12 11:44] VITALS: BP 116/79; PULSE 84; RESP 20; TEMP 36.8; O2SAT 97
--- NOTE | 2023-06-12 12:48 | MHC.CM.PN ---
CM SPOKE WITH [facility] NURSE CHARLES ([phone]) WHO WILL BE FAXING CLINICAL INFO (PSYCHO-SOCIAL/PSYCH HX) FOR SNF REVIEW ([facility]) CM WILL AWAIT FAX AND CONTINUE TO FOLLOW FOR PLACEMENT.
[2023-06-12] MEDS: Acetaminophen Oral Liquid 650 MG/20.3 ML SOLUTION PO ×2 (13:37→21:30)
--- NOTE | 2023-06-12 13:46 | HO.PM.IMPN ---
Subjective Subjective Date of Service: 06/12/23 Interval History: resting comfortably, communicating well gradually making progress, offers no complaints, no acute issues overnight. Review of Systems all other system reviewed and negative Physical Exam Vital Signs: Vital Signs: Last Vital Signs Temp 98.3 F 06/12/23 11:44 Pulse 84 06/12/23 11:44 Resp 20 06/12/23 11:44 BP 116/79 06/12/23 11:44 Pulse Ox 97 06/12/23 11:44 O2 Del Method Room Air 06/12/23 11:44 O2 Flow Rate 98 05/17/23 20:00 FiO2 30 04/23/23 11:00 BMI result Body Mass Index 21.0 Const: Other: Constitutional : Awake, not in distress Neck : Normal inspection, Supple Cardiovascular : RRR, no JVP, no lower extremity edema Respiratory : good bilateral air entry,? no crackles, wheezes or rhonchi Gastrointestinal:? soft,? Normal bowel sounds, Non tender Skin : Warm, Dry extremities no edema Objective Data Active Medications Acetaminophen (Acetaminophen Oral Liquid 650 Mg/20.3 Ml Solution) 650 mg PO Q6H PRN PRN Reason: Fever Last Admin: 06/12/23 13:37 Dose: 650 mg Documented By: ZORAN Aspirin (Aspirin 81 Mg Tab.Chew) 81 mg PO DAILY [facility] Last Admin: 06/12/23 09:43 Dose: 81 mg Documented By: ZORAN Atorvastatin Calcium (Atorvastatin Calcium 40 Mg Tablet) 40 mg PO BEDTIME [facility] Last Admin: 06/11/23 20:39 Dose: 40 mg Documented By: JADIEL Baclofen (Baclofen 10 Mg Tablet) 10 mg PO TID [facility] Last Admin: 06/12/23 09:42 Dose: 10 mg Documented By: ZORAN Docusate Sodium (Docusate Sodium 100 Mg Capsule) 200 mg PO BEDTIME [facility] Last Admin: 06/11/23 20:40 Dose: 200 mg Documented By: JADIEL Enoxaparin Sodium (Enoxaparin Sodium 40 Mg/0.4 Ml Syringe) 40 mg SUBCUT Q24H [facility] Last Admin: 06/11/23 14:55 Dose: Not Given Documented By: KANU Non-Admin Reason: Patient Refused Folic Acid (Folic Acid 1 Mg Tablet) 1 mg PO DAILY [facility] Last Admin: 06/12/23 09:43 Dose: 1 mg Documented By: ZORAN Ibuprofen (Ibuprofen 400 Mg Tablet) 400 mg PO Q8H PRN PRN Reason: Pain, Moderate(Pain Scale 4-6) Last Admin: 06/11/23 09:05 Dose: 400 mg Documented By: KANU Magnesium Hydroxide (Milk Of Magnesia 30 Ml Oral.Susp) 30 ml PO DAILY PRN PRN Reason: Constipation Metoprolol Tartrate (Metoprolol Tartrate 12.5 Mg Halftab) 12.5 mg PO BID [facility]; Protocol Last Admin: 06/12/23 09:42 Dose: 12.5 mg Documented By: ZORAN Multivitamins/Vitamin C (Multivitamin Tablet) 1 tab PO DAILY [facility] Last Admin: 06/12/23 09:43 Dose: 1 tab Documented By: ZORAN Naloxone HCl (Naloxone Hcl 0.4 Mg/Ml Vial) 0.2 mg IVPUSH Q2M PRN PRN Reason: Excessive sedation or RR < 8 Nystatin (Nystatin Powder 15 Gm Bottle) 1 appl TOPICAL TID [facility]; Protocol Last Admin: 06/12/23 09:46 Dose: 1 appl Documented By: ZORAN Olanzapine (Olanzapine 10 Mg Tablet) 10 mg PO BEDTIME [facility] Last Admin: 06/11/23 20:40 Dose: 10 mg Documented By: JADIEL Sertraline HCl (Sertraline Hcl 50 Mg Tablet) 50 mg PO DAILY [facility] Last Admin: 06/12/23 09:43 Dose: 50 mg Documented By: ZORAN Thiamine HCl (Thiamine Hcl 100 Mg Tablet) 100 mg PO DAILY [facility] Last Admin: 06/12/23 09:42 Dose: 100 mg Documented By: ZORAN Labs 05/07/23 06:02 06/10/23 11:55 Assessment and Plan (1) Anoxic encephalopathy: Status: Acute Plan 28-year-old man with underlying history of schizophrenia, alcohol use, marijuana use?admitted on 04/08/2023 after he was noted to be unresponsive by his girlfriend for unclear amount of time. Patient was transported by EMS to emergency room where he was intubated for hypoxia and respiratory distress.? On further evaluation patient with imaging finding of aspiration and left pneumothorax.? Initial left mid axillary chest tube placed in emergency room with persistence of pneumothorax and questionable subdiaphragmatic placement.? Chest tube removed and replaced with left midclavicular in 3rd intercostal space with air evacuation and improvement in pneumothorax.? Patient also noted to have acute kidney injury and rhabdomyolysis and started on IV fluid hydration. He underwent right gluteal fasciotomy with significant improvement in his CPK and renal function.? However, remains persistently encephalopathic.? MRI on 04/10/2023 with bilateral cerebral anoxic related encephalopathy. ? Evaluated by neurology with prognosis consider to be guarded, but not catastrophic. Overall with slow neurologic improvement, With significant improvement on 04/23/2023. extubated 04/23/2023 and downgraded to the medical floor on 04/25. has since been awaiting placement, with ongoing improvement in mental status, improved speech, awareness, motor. Anoxic brain injury secondary to aspiration pneumonia related to polysubstance overdose with anoxic encephalopathy continues to improve , walked 30 ft continue PT/OT, plan for more aggressive rehab Baclofen as muscle relaxant, added Motrin prn for pain Schizophrenia in backdrop SHERI sertraline 50mg/olanzapine 10mg HS psych following as needed NSTEMI, resolved s/p heparin drip.... medical management at this time -lopressors, asa outpatient workup when appropriate Acute renal failure resolved dvt prophylaxis - patient refusing heparin changed to Lovenox once daily Full Code DISPO plan for extensive rehab- brain rehab facility recommended Has [facility] guardian, pending SNF placement. Requires continued hospitalization for safe disposition. Time Spent With Patient Time: Total time managing care of this patient today ____ minutes. Quality Stroke Does the patient have a stroke diagnosis?: No VTE Prior VTE?: No VTE Risk Level:: Medical - moderate - high VTE Device Contraindication: N/A - Device Ordered VTE Drug Contraindication: N/A - Med Ordered
[2023-06-12 15:06] VITALS: BP 109/59; PULSE 78; RESP 18; TEMP 36.7; O2SAT 97
[2023-06-12] MEDS: Ibuprofen 400 MG TABLET PO (15:11)
[2023-06-12 19:32] VITALS: BP 107/58; PULSE 70; RESP 18; TEMP 36.6; O2SAT 96
[2023-06-12] MEDS: Docusate Sodium 100 MG CAPSULE 200 MG PO (21:29)
[2023-06-12] MEDS: Atorvastatin Calcium 40 MG TABLET PO (21:29)
[2023-06-12] MEDS: OLANZapine 10 MG TABLET PO (21:29)
[2023-06-13 07:05] VITALS: BP 94/54; PULSE 50; RESP 18; TEMP 37.1; O2SAT 97
[2023-06-13] MEDS: Thiamine HCL 100 MG TABLET PO (08:12)
[2023-06-13] MEDS: Multivitamin TABLET 1 TAB PO (08:12)
[2023-06-13] MEDS: Sertraline HCL 50 MG TABLET PO (08:12)
[2023-06-13] MEDS: Baclofen 10 MG TABLET PO ×3 (08:12→19:42)
[2023-06-13] MEDS: Folic Acid 1 MG TABLET PO (08:12)
[2023-06-13] MEDS: Aspirin 81 MG TAB.CHEW PO (08:12)
--- NOTE | 2023-06-13 10:24 | P.PNIM_ITS ---
Subjective Subjective Date of Service: 06/13/23 Interval History: offers no acute complaints right knee pain is better, yesterday patient knee buckled and he lowered himself to the floor, nurse assisted him back up patient complained of right knee pain treated with Motrin and ice with good relief, denies fever chills, no headache, no dizziness tolerating diet with no nausea, no vomiting or diarrhea. Review of Systems All other system reviewed and negative. Physical Exam Vital Signs: Vital Signs: Last Vital Signs Temp 98.7 F 06/13/23 07:05 Pulse 50 06/13/23 07:05 Resp 18 06/13/23 07:05 BP 94/54 L 06/13/23 07:05 Pulse Ox 97 06/13/23 07:05 O2 Del Method Room Air 06/13/23 07:05 O2 Flow Rate 98 05/17/23 20:00 FiO2 30 04/23/23 11:00 BMI result Body Mass Index 21.0 Const: Other: Constitutional : Awake, not in distress Neck : Normal inspection, Supple Cardiovascular : RRR, no JVP, no lower extremity edema Respiratory : good bilateral air entry,? no crackles, wheezes or rhonchi Gastrointestinal:? soft,? Normal bowel sounds, Non tender Skin : Warm, Dry extremities no edema right knee normal examination no redness no swelling no warmth, no tenderness good range of motion. Objective Data Active Medications Acetaminophen (Acetaminophen Oral Liquid 650 Mg/20.3 Ml Solution) 650 mg PO Q6H PRN PRN Reason: Fever Last Admin: 06/12/23 21:30 Dose: 650 mg Documented By: DAVID Aspirin (Aspirin 81 Mg Tab.Chew) 81 mg PO DAILY [facility] Last Admin: 06/13/23 08:12 Dose: 81 mg Documented By: COTKATHRIN Atorvastatin Calcium (Atorvastatin Calcium 40 Mg Tablet) 40 mg PO BEDTIME [facility] Last Admin: 06/12/23 21:29 Dose: 40 mg Documented By: DAVID Baclofen (Baclofen 10 Mg Tablet) 10 mg PO TID [facility] Last Admin: 06/13/23 08:12 Dose: 10 mg Documented By: COTEMA Docusate Sodium (Docusate Sodium 100 Mg Capsule) 200 mg PO BEDTIME [facility] Last Admin: 06/12/23 21:29 Dose: 200 mg Documented By: DAVID Enoxaparin Sodium (Enoxaparin Sodium 40 Mg/0.4 Ml Syringe) 40 mg SUBCUT Q24H [facility] Last Admin: 06/12/23 15:15 Dose: Not Given Documented By: ZORAN Non-Admin Reason: Patient Refused Folic Acid (Folic Acid 1 Mg Tablet) 1 mg PO DAILY [facility] Last Admin: 06/13/23 08:12 Dose: 1 mg Documented By: BERTA Ibuprofen (Ibuprofen 400 Mg Tablet) 400 mg PO Q8H PRN PRN Reason: Pain, Moderate(Pain Scale 4-6) Last Admin: 06/12/23 15:11 Dose: 400 mg Documented By: ZORAN Magnesium Hydroxide (Milk Of Magnesia 30 Ml Oral.Susp) 30 ml PO DAILY PRN PRN Reason: Constipation Multivitamins/Vitamin C (Multivitamin Tablet) 1 tab PO DAILY [facility] Last Admin: 06/13/23 08:12 Dose: 1 tab Documented By: BERTA Naloxone HCl (Naloxone Hcl 0.4 Mg/Ml Vial) 0.2 mg IVPUSH Q2M PRN PRN Reason: Excessive sedation or RR < 8 Nystatin (Nystatin Powder 15 Gm Bottle) 1 appl TOPICAL TID [facility]; Protocol Last Admin: 06/13/23 08:13 Dose: Not Given Documented By: BERTA Non-Admin Reason: Med Not Available Olanzapine (Olanzapine 10 Mg Tablet) 10 mg PO BEDTIME [facility] Last Admin: 06/12/23 21:29 Dose: 10 mg Documented By: DAVID Sertraline HCl (Sertraline Hcl 50 Mg Tablet) 50 mg PO DAILY [facility] Last Admin: 06/13/23 08:12 Dose: 50 mg Documented By: BERTA Thiamine HCl (Thiamine Hcl 100 Mg Tablet) 100 mg PO DAILY [facility] Last Admin: 06/13/23 08:12 Dose: 100 mg Documented By: BERTA Labs 05/07/23 06:02 06/10/23 11:55 Assessment and Plan (1) Anoxic encephalopathy: Status: Acute Plan 28-year-old man with underlying history of schizophrenia, alcohol use, marijuana use?admitted on 04/08/2023 after he was noted to be unresponsive by his gir lfriend for unclear amount of time. Patient was transported by EMS to emergency room where he was intubated for hypoxia and respiratory distress.? On further evaluation patient with imaging finding of aspiration and left pneumothorax.? Initial left mid axillary chest tube placed in emergency room with persistence of pneumothorax and questionable subdiaphragmatic placement.? Chest tube removed and replaced with left midclavicular in 3rd intercostal space with air evacuation and improvement in pneumothorax.? Patient also noted to have acute kidney injury and rhabdomyolysis and started on IV fluid hydration. He underwent right gluteal fasciotomy with significant improvement in his CPK and renal function.? However, remains persistently encephalopathic.? MRI on 04/10/2023 with bilateral cerebral anoxic related encephalopathy. ? Evaluated by neurology with prognosis consider to be guarded, but not catastrophic. Overall with slow neurologic improvement, With significant improvement on 04/23/2023. extubated 04/23/2023 and downgraded to the medical floor on 04/25. has since been awaiting placement, with ongoing improvement in mental status, improved speech, awareness, motor. Anoxic brain injury secondary to aspiration pneumonia related to polysubstance overdose with anoxic encephalopathy continues to improve , walked 30 ft continue PT/OT, plan for more aggressive rehab Baclofen as muscle relaxant, Motrin prn for pain right knee discomfort improved after knee buckled on 06/12. Schizophrenia in backdrop SHERI sertraline 50mg/olanzapine 10mg HS psych following as needed NSTEMI, resolved s/p heparin drip.... Noted to have soft blood pressures and heart rate in 50s will DC Lopressor continue aspirin , statin and outpatient workup with Cardiology Acute renal failure resolved dvt prophylaxis - patient refusing heparin changed to Lovenox once daily Full Code DISPO plan for extensive rehab- brain rehab facility recommended Has [facility] guardian, pending SNF placement. Requires continued hospitalization for safe disposition. Time Spent With Patient Time: Total time managing care of this patient today ____ minutes. Quality Stroke Does the patient have a stroke diagnosis?: No VTE Prior VTE?: No VTE Risk Level:: Medical - moderate - high VTE Device Contraindication: N/A - Device Ordered VTE Drug Contraindication: N/A - Med Ordered
[2023-06-13] MEDS: Ibuprofen 400 MG TABLET PO (14:37)
[2023-06-13 15:28] VITALS: BP 112/63; PULSE 70; RESP 18; TEMP 36.5; O2SAT 98
[2023-06-13 19:08] VITALS: BP 118/79; PULSE 79; RESP 14; TEMP 36.4; O2SAT 96
[2023-06-13] MEDS: Docusate Sodium 100 MG CAPSULE 200 MG PO (19:41)
[2023-06-13] MEDS: OLANZapine 10 MG TABLET PO (19:41)
[2023-06-13] MEDS: Atorvastatin Calcium 40 MG TABLET PO (19:42)
[2023-06-13] MEDS: Nystatin Powder 15 GM BOTTLE 1 APPL TOPICAL (19:42)
[2023-06-13] MEDS: Acetaminophen Oral Liquid 650 MG/20.3 ML SOLUTION PO (19:43)
[2023-06-14] MEDS: Ibuprofen 400 MG TABLET PO ×2 (05:12→16:28)
[2023-06-14 07:21] VITALS: BP 119/78; PULSE 60; RESP 16; TEMP 36.2; O2SAT 96
[2023-06-14] MEDS: Multivitamin TABLET 1 TAB PO (08:25)
[2023-06-14] MEDS: Aspirin 81 MG TAB.CHEW PO (08:25)
[2023-06-14] MEDS: Baclofen 10 MG TABLET PO ×3 (08:25→19:55)
[2023-06-14] MEDS: Sertraline HCL 50 MG TABLET PO (08:25)
[2023-06-14] MEDS: Thiamine HCL 100 MG TABLET PO (08:25)
[2023-06-14] MEDS: Folic Acid 1 MG TABLET PO (08:25)
[2023-06-14] MEDS: Nystatin Powder 15 GM BOTTLE 1 APPL TOPICAL ×3 (08:25→19:57)
--- NOTE | 2023-06-14 09:40 | P.PNIM_ITS ---
Subjective Subjective Date of Service: 06/14/23 Interval History: being followed for placement, resting comfortably tolerating diet no nausea no vomiting no abdominal pain, no acute issues overnight, ambulating to bathroom, participating with physical therapy the continue to recommend acute rehab. Review of Systems all other sys Physical Exam Vital Signs: Vital Signs: Last Vital Signs Temp 97.1 F 06/14/23 07:21 Pulse 60 06/14/23 07:21 Resp 16 06/14/23 07:21 BP 119/78 06/14/23 07:21 Pulse Ox 96 06/14/23 07:21 O2 Del Method Room Air 06/14/23 07:21 O2 Flow Rate 98 05/17/23 20:00 FiO2 30 04/23/23 11:00 BMI result Body Mass Index 21.0 Const: Other: Constitutional : A wake, not in distr ess Neck : Normal inspection, Supple Cardiovascular : RRR, no JVP, no lo wer extremity elissa a Respiratory : go od bilateral air e ntry,? no crackles , wheezes or rhonc hi Gastrointestina l:? soft,? Normal bowel sounds, Non tender Skin : Warm , Dry extremities no edema right kne e normal examinati on no redness no s welling no warmth, no tenderness goo d range of motion. Objective Data Active Medications Acetaminophen (Acetaminophen Oral Liquid 650 Mg/20.3 Ml Solution) 650 mg PO Q6H PRN PRN Reason: Fever Last Admin: 06/13/23 19:43 Dose: 650 mg Documented By: DAVID Aspirin (Aspirin 81 Mg Tab.Chew) 81 mg PO DAILY [facility] Last Admin: 06/14/23 08:25 Dose: 81 mg Documented By: BERTA Atorvastatin Calcium (Atorvastatin Calcium 40 Mg Tablet) 40 mg PO BEDTIME [facility] Last Admin: 06/13/23 19:42 Dose: 40 mg Documented By: DAVID Baclofen (Baclofen 10 Mg Tablet) 10 mg PO TID [facility] Last Admin: 06/14/23 08:25 Dose: 10 mg Documented By: BERTA Docusate Sodium (Docusate Sodium 100 Mg Capsule) 200 mg PO BEDTIME [facility] Last Admin: 06/13/23 19:41 Dose: 200 mg Documented By: DAVID Enoxaparin Sodium (Enoxaparin Sodium 40 Mg/0.4 Ml Syringe) 40 mg SUBCUT Q24H [facility] Last Admin: 06/13/23 14:04 Dose: Not Given Documented By: DANETTEEMA Non-Admin Reason: Patient Refused Folic Acid (Folic Acid 1 Mg Tablet) 1 mg PO DAILY [facility] Last Admin: 06/14/23 08:25 Dose: 1 mg Documented By: DANETTEEMA Ibuprofen (Ibuprofen 400 Mg Tablet) 400 mg PO Q8H PRN PRN Reason: Pain, Moderate(Pain Scale 4-6) Last Admin: 06/14/23 05:12 Dose: 400 mg Documented By: DAVID Magnesium Hydroxide (Milk Of Magnesia 30 Ml Oral.Susp) 30 ml PO DAILY PRN PRN Reason: Constipation Multivitamins/Vitamin C (Multivitamin Tablet) 1 tab PO DAILY [facility] Last Admin: 06/14/23 08:25 Dose: 1 tab Documented By: BERTA Naloxone HCl (Naloxone Hcl 0.4 Mg/Ml Vial) 0.2 mg IVPUSH Q2M PRN PRN Reason: Excessive sedation or RR < 8 Nystatin (Nystatin Powder 15 Gm Bottle) 1 appl TOPICAL TID [facility]; Protocol Last Admin: 06/14/23 08:25 Dose: 1 appl Documented By: BERTA Olanzapine (Olanzapine 10 Mg Tablet) 10 mg PO BEDTIME [facility] Last Admin: 06/13/23 19:41 Dose: 10 mg Documented By: DAVID Sertraline HCl (Sertraline Hcl 50 Mg Tablet) 50 mg PO DAILY [facility] Last Admin: 06/14/23 08:25 Dose: 50 mg Documented By: BERTA Thiamine HCl (Thiamine Hcl 100 Mg Tablet) 100 mg PO DAILY [facility] Last Admin: 06/14/23 08:25 Dose: 100 mg Documented By: COTEMA Labs 05/07/23 06:02 06/10/23 11:55 Assessment and Plan (1) Anoxic encephalopathy: Status: Acute Plan 28-year-old man with underlying history of schizophrenia, alcohol use, marijuana use?admitted on 04/08/2023 after he was noted to be unresponsive by his girlfriend for unclear amount of time. Patient was transported by EMS to emergency room where he was intubated for hypoxia and respiratory distress.? On further evaluation patient with imaging finding of aspiration and left pneumothorax.? Initial left mid axillary chest tube placed in emergency room with persistence of pneumothorax and questionable subdiaphragmatic placement.? Chest tube removed and replaced with left midclavicular in 3rd intercostal space with air evacuation and improvement in pneumothorax.? Patient also noted to have acute kidney injury and rhabdomyolysis and started on IV fluid hydration. He underwent right gluteal fasciotomy with significant improvement in his CPK and renal function.? However, remains persistently encephalopathic.? MRI on 04/10/2023 with bilateral cerebral anoxic related encephalopathy. ? Evaluated by neurology with prognosis consider to be guarded, but not catastrophic. Overall with slow neurologic improvement, With significant improvement on 04/23/2023. extubated 04/23/2023 and downgraded to the medical floor on 04/25. has since been awaiting placement, with ongoing improvement in mental status, improved speech, awareness, motor. Anoxic brain injury secondary to aspiration pneumonia related to polysubstance overdose with anoxic encephalopathy continues to improve , participating with PT continue PT/OT, plan for more aggressive rehab Baclofen as muscle relaxant, Motrin prn for pain right knee discomfort improved after knee buckled on 06/12. Schizophrenia in backdrop SHERI sertraline 50mg/olanzapine 10mg HS psych following as needed NSTEMI, resolved s/p heparin drip.... Noted to have soft blood pressures and heart rate in 50s will DC Lopressor continue aspirin , statin and outpatient workup with Cardiology Acute renal failure resolved dvt prophylaxis - patient refusing heparin changed to Lovenox once daily Full Code DISPO plan for extensive rehab- brain rehab facility recommended Has [facility] guardian, pending SNF placement. Requires continued hospitalization for safe disposition. Time Spent With Patient Time: Total time managing care of this patient today ____ minutes. Quality Stroke Does the patient have a stroke diagnosis?: No VTE Prior VTE?: No VTE Risk Level:: Medical - moderate - high VTE Device Contraindication: N/A - Device Ordered VTE Drug Contraindication: N/A - Med Ordered
[2023-06-14 15:18] VITALS: BP 110/61; PULSE 62; RESP 18; TEMP 36.3; O2SAT 98
[2023-06-14 19:33] VITALS: BP 121/65; PULSE 84; RESP 18; TEMP 36.8; O2SAT 97
[2023-06-14] MEDS: Docusate Sodium 100 MG CAPSULE 200 MG PO (19:55)
[2023-06-14] MEDS: Atorvastatin Calcium 40 MG TABLET PO (19:55)
[2023-06-14] MEDS: OLANZapine 10 MG TABLET PO (19:56)
[2023-06-14] MEDS: Acetaminophen Oral Liquid 650 MG/20.3 ML SOLUTION PO (19:56)
[2023-06-15] MEDS: Folic Acid 1 MG TABLET PO (08:26)
[2023-06-15] MEDS: Nystatin Powder 15 GM BOTTLE 1 APPL TOPICAL ×3 (08:26→20:26)
[2023-06-15] MEDS: Thiamine HCL 100 MG TABLET PO (08:26)
[2023-06-15] MEDS: Multivitamin TABLET 1 TAB PO (08:26)
[2023-06-15] MEDS: Baclofen 10 MG TABLET PO ×3 (08:26→20:16)
[2023-06-15] MEDS: Ibuprofen 400 MG TABLET PO ×2 (08:26→20:24)
[2023-06-15] MEDS: Aspirin 81 MG TAB.CHEW PO (08:26)
[2023-06-15] MEDS: Sertraline HCL 50 MG TABLET PO (08:26)
[2023-06-15 09:49] VITALS: BP 120/62; PULSE 79; RESP 20; TEMP 37.2; O2SAT 99
--- NOTE | 2023-06-15 12:03 | P.PNIM_ITS ---
Subjective Subjective Date of Service: 06/15/23 Interval History: being followed for placement patient offers no acute complaints ambulating to bathroom with 1 assist, tolerating diet no nausea, no vomiting, no abdominal pain, no other acute issues overnight. Review of Systems all other system reviewed and negative. Physical Exam Vital Signs: Vital Signs: Last Vital Signs Temp 98.9 F 06/15/23 09:49 Pulse 79 06/15/23 09:49 Resp 20 06/15/23 09:49 BP 120/62 06/15/23 09:49 Pulse Ox 99 06/15/23 09:49 O2 Del Method Room Air 06/15/23 09:49 O2 Flow Rate 98 05/17/23 20:00 FiO2 30 04/23/23 11:00 BMI result Body Mass Index 21.0 Const: Other: Constitutional : A wake, alert, not i n distress Neck : Normal inspection, Supple Cardiovasc ular : RRR, no JVP , no lower extremi ty edema Respirato ry : good bilatera l air entry,? no c rackles, wheezes o r rhonchi Gastroin testinal:? soft,? Normal bowel sound s, Non tender Skin : Warm, Dry extre mities no edema Objective Data Active Medications Acetaminophen (Acetaminophen Oral Liquid 650 Mg/20.3 Ml Solution) 650 mg PO Q6H PRN PRN Reason: Fever Last Admin: 06/14/23 19:56 Dose: 650 mg Documented By: DAVID Aspirin (Aspirin 81 Mg Tab.Chew) 81 mg PO DAILY [facility] Last Admin: 06/15/23 08:26 Dose: 81 mg Documented By: BERTA Atorvastatin Calcium (Atorvastatin Calcium 40 Mg Tablet) 40 mg PO BEDTIME [facility] Last Admin: 06/14/23 19:55 Dose: 40 mg Documented By: DAVID Baclofen (Baclofen 10 Mg Tablet) 10 mg PO TID [facility] Last Admin: 06/15/23 08:26 Dose: 10 mg Documented By: DANETTEEMA Docusate Sodium (Docusate Sodium 100 Mg Capsule) 200 mg PO BEDTIME [facility] Last Admin: 06/14/23 19:55 Dose: 200 mg Documented By: DAVID Enoxaparin Sodium (Enoxaparin Sodium 40 Mg/0.4 Ml Syringe) 40 mg SUBCUT Q24H [facility] Last Admin: 06/14/23 14:44 Dose: Not Given Documented By: COTEMA Non-Admin Reason: Patient Refused Folic Acid (Folic Acid 1 Mg Tablet) 1 mg PO DAILY [facility] Last Admin: 06/15/23 08:26 Dose: 1 mg Documented By: COTEMA Ibuprofen (Ibuprofen 400 Mg Tablet) 400 mg PO Q8H PRN PRN Reason: Pain, Moderate(Pain Scale 4-6) Last Admin: 06/15/23 08:26 Dose: 400 mg Documented By: COTEMA Magnesium Hydroxide (Milk Of Magnesia 30 Ml Oral.Susp) 30 ml PO DAILY PRN PRN Reason: Constipation Multivitamins/Vitamin C (Multivitamin Tablet) 1 tab PO DAILY [facility] Last Admin: 06/15/23 08:26 Dose: 1 tab Documented By: DANETTEEMA Naloxone HCl (Naloxone Hcl 0.4 Mg/Ml Vial) 0.2 mg IVPUSH Q2M PRN PRN Reason: Excessive sedation or RR < 8 Nystatin (Nystatin Powder 15 Gm Bottle) 1 appl TOPICAL TID [facility]; Protocol Last Admin: 06/15/23 08:26 Dose: 1 appl Documented By: BERTA Olanzapine (Olanzapine 10 Mg Tablet) 10 mg PO BEDTIME [facility] Last Admin: 06/14/23 19:56 Dose: 10 mg Documented By: DAVID Sertraline HCl (Sertraline Hcl 50 Mg Tablet) 50 mg PO DAILY [facility] Last Admin: 06/15/23 08:26 Dose: 50 mg Documented By: BERTA Thiamine HCl (Thiamine Hcl 100 Mg Tablet) 100 mg PO DAILY [facility] Last Admin: 06/15/23 08:26 Dose: 100 mg Documented By: BERTA Labs 05/07/23 06:02 06/10/23 11:55 Assessment and Plan (1) Anoxic encephalopathy: Status: Acute Plan 28-year-old man with underlying history of schizophrenia, alcohol use, marijuana use?admitted on 04/08/2023 after he was noted to be unresponsive by his [facility] lfriend for unclear amount of time. Patient was transported by EMS to emergency room where he was intubated for hypoxia and respiratory distress.? On further evaluation patient with imaging finding of aspiration and left pneumothorax.? Initial left mid axillary chest tube placed in emergency room with persistence of pneumothorax and questionable subdiaphragmatic placement.? Chest tube removed and replaced with left midclavicular in 3rd intercostal space with air evacuation and improvement in pneumothorax.? Patient also noted to have acute kidney injury and rhabdomyolysis and started on IV fluid hydration. He underwent right gluteal fasciotomy with significant improvement in his CPK and renal function.? However, remains persistently encephalopathic.? MRI on 04/10/2023 with bilateral cerebral anoxic related encephalopathy. ? Evaluated by neurology with prognosis consider to be guarded, but not catastrophic. Overall with slow neurologic improvement, With significant improvement on 04/23/2023. extubated 04/23/2023 and downgraded to the medical floor on 04/25. has since been awaiting placement, with ongoing improvement in mental status, improved speech, awareness, motor. Anoxic brain injury secondary to aspiration pneumonia related to polysubstance overdose with anoxic encephalopathy continues to improve , participating with PT continue PT/OT planned for acute rehab Baclofen as muscle relaxant, Motrin prn for pain right knee discomfort improved after knee buckled on 06/12. Schizophrenia in backdrop SHERI sertraline 50mg/olanzapine 10mg HS psych following as needed NSTEMI, resolved s/p heparin drip.... Noted to have soft blood pressures and heart rate therefore Lopressor discontinued,continue aspirin , statin and outpatient workup with Cardiology. Acute renal failure resolved. dvt prophylaxis - Lovenox once daily. Full Code DISPO plan for extensive rehab Has [facility] guardian, pending SNF placement. Requires continued hospitalization for safe disposition. Time Spent With Patient Time: Total time managing care of this patient today ____ minutes. Quality Stroke Does the patient have a stroke diagnosis?: No VTE Prior VTE?: No VTE Risk Level:: Medical - moderate - high VTE Device Contraindication: N/A - Device Ordered VTE Drug Contraindication: N/A - Med Ordered
--- NOTE | 2023-06-15 15:59 | MHC.CLN ---
F/U DIET=REGULAR. ENSURE TID PROVIDES ADDITIONAL 1050 KCALS, 60 G PROTEIN. SUPPLEMENT APPROPRIATE TO PROMOTE SKIN INTEGRITY AND INCREASE NUTRITIONAL INTAKE. SKIN: NO PRESSURE AREAS. MOST RECENT INTAKE AT MEALS USUALLY 50-100%. CONTINUE CURRENT DIET AND SUPPLEMENT. RD TO FOLLOW WEEKLY.
[2023-06-15 19:48] VITALS: BP 107/57; PULSE 77; RESP 20; TEMP 36.7; O2SAT 95
[2023-06-15] MEDS: Docusate Sodium 100 MG CAPSULE 200 MG PO (20:16)
[2023-06-15] MEDS: OLANZapine 10 MG TABLET PO (20:16)
[2023-06-15] MEDS: Atorvastatin Calcium 40 MG TABLET PO (20:16)
[2023-06-16 04:00] VITALS: BP 125/61; PULSE 62; RESP 18; TEMP 36.4; O2SAT 97
[2023-06-16 07:36] VITALS: BP 103/57; PULSE 55; RESP 16; TEMP 36.3; O2SAT 97
[2023-06-16] MEDS: Multivitamin TABLET 1 TAB PO (08:33)
[2023-06-16] MEDS: Sertraline HCL 50 MG TABLET PO (08:33)
[2023-06-16] MEDS: Baclofen 10 MG TABLET PO ×3 (08:33→20:06)
[2023-06-16] MEDS: Folic Acid 1 MG TABLET PO (08:33)
[2023-06-16] MEDS: Thiamine HCL 100 MG TABLET PO (08:33)
[2023-06-16] MEDS: Aspirin 81 MG TAB.CHEW PO (08:33)
[2023-06-16] MEDS: Nystatin Powder 15 GM BOTTLE 1 APPL TOPICAL ×3 (08:34→20:07)
--- NOTE | 2023-06-16 08:59 | HO.PM.IMPN ---
Subjective Subjective Date of Service: 06/16/23 Interval History: Continue make increamental improvement, Physical Exam Vital Signs: Vital Signs: Last Vital Signs Temp 97.4 F 06/16/23 07:36 Pulse 55 06/16/23 07:36 Resp 16 06/16/23 07:36 BP 103/57 L 06/16/23 07:36 Pulse Ox 97 06/16/23 07:36 O2 Del Method Room Air 06/16/23 07:36 O2 Flow Rate 98 05/17/23 20:00 FiO2 30 04/23/23 11:00 BMI result Body Mass Index 21.0 Const: Other: Constitutional : A wake, alert, not i n distress Neck : Normal inspection, Supple Cardiovasc ular : RRR, no JVP , no lower extremi ty edema Respirato ry : good bilatera l air entry,? no c rackles, wheezes o r rhonchi Gastroin testinal:? soft,? Normal bowel sound s, Non tender Skin : Warm, Dry extre mities no edema Objective Data Active Medications Acetaminophen (Acetaminophen Oral Liquid 650 Mg/20.3 Ml Solution) 650 mg PO Q6H PRN PRN Reason: Fever Last Admin: 06/14/23 19:56 Dose: 650 mg Documented By: DAVID Aspirin (Aspirin 81 Mg Tab.Chew) 81 mg PO DAILY [facility] Last Admin: 06/16/23 08:33 Dose: 81 mg Documented By: KATHRINE Atorvastatin Calcium (Atorvastatin Calcium 40 Mg Tablet) 40 mg PO BEDTIME [facility] Last Admin: 06/15/23 20:16 Dose: 40 mg Documented By: ROGER Baclofen (Baclofen 10 Mg Tablet) 10 mg PO TID [facility] Last Admin: 06/16/23 08:33 Dose: 10 mg Documented By: KATHRINE Docusate Sodium (Docusate Sodium 100 Mg Capsule) 200 mg PO BEDTIME [facility] Last Admin: 06/15/23 20:16 Dose: 200 mg Documented By: ROGER Enoxaparin Sodium (Enoxaparin Sodium 40 Mg/0.4 Ml Syringe) 40 mg SUBCUT Q24H [facility] Last Admin: 06/15/23 14:14 Dose: Not Given Documented By: COTEMA Non-Admin Reason: Patient Refused Folic Acid (Folic Acid 1 Mg Tablet) 1 mg PO DAILY [facility] Last Admin: 06/16/23 08:33 Dose: 1 mg Documented By: KATHRINE Ibuprofen (Ibuprofen 400 Mg Tablet) 400 mg PO Q8H PRN PRN Reason: Pain, Moderate(Pain Scale 4-6) Last Admin: 06/15/23 20:24 Dose: 400 mg Documented By: ROGER Magnesium Hydroxide (Milk Of Magnesia 30 Ml Oral.Susp) 30 ml PO DAILY PRN PRN Reason: Constipation Multivitamins/Vitamin C (Multivitamin Tablet) 1 tab PO DAILY [facility] Last Admin: 06/16/23 08:33 Dose: 1 tab Documented By: KATHRINE Naloxone HCl (Naloxone Hcl 0.4 Mg/Ml Vial) 0.2 mg IVPUSH Q2M PRN PRN Reason: Excessive sedation or RR < 8 Nystatin (Nystatin Powder 15 Gm Bottle) 1 appl TOPICAL TID [facility]; Protocol Last Admin: 06/16/23 08:34 Dose: 1 appl Documented By: KATHRINE Olanzapine (Olanzapine 10 Mg Tablet) 10 mg PO BEDTIME [facility] Last Admin: 06/15/23 20:16 Dose: 10 mg Documented By: ROGER Sertraline HCl (Sertraline Hcl 50 Mg Tablet) 50 mg PO DAILY [facility] Last Admin: 06/16/23 08:33 Dose: 50 mg Documented By: KATHRINE Thiamine HCl (Thiamine Hcl 100 Mg Tablet) 100 mg PO DAILY [facility] Last Admin: 06/16/23 08:33 Dose: 100 mg Documented By: KATHRINE Labs 05/07/23 06:02 06/10/23 11:55 Assessment and Plan (1) Anoxic encephalopathy: Status: Acute Plan 28-year-old man with underlying history of schizophrenia, alcohol use, marijuana use?admitted on 04/08/2023 after he was noted to be unresponsive by his girlfriend for undetermined amount of time. He was transported by EMS to emergency room where he was intubated fo acute hypoxic respiratory failure. Further work up revealed aspiration and left pneumothorax.? Initial left mid axillary chest tube placed in emergency room with persistence of pneumothorax and questionable subdiaphragmatic placement.? Chest tube removed and replaced with left midclavicular in 3rd intercostal space with air evacuation and improvement in pneumothorax.? Patient also noted to have acute kidney injury and rhabdomyolysis and started on IV fluid hydration. He underwent right gluteal fasciotomy with significant improvement in his CPK and renal function.? However, remains persistently encephalopathic.? MRI on 04/10/2023 with bilateral cerebral anoxic related encephalopathy. ? Evaluated by neurology with prognosis consider to be guarded, but not catastrophic. Overall with slow neurologic improvement, With significant improvement on 04/23/2023. extubated 04/23/2023 and downgraded to the medical floor on 04/25. has since been awaiting placement, with ongoing improvement in mental status, improved speech, awareness, motor functions Anoxic brain injury secondary to aspiration pneumonia related to polysubstance overdose with anoxic encephalopathy continues to improve , participating with PT continue PT/OT planned for acute rehab Baclofen as muscle relaxant, Motrin prn for pain right knee discomfort improved after knee buckled on 06/12. Schizophrenia in backdrop SHERI sertraline 50mg/olanzapine 10mg HS psych following as needed NSTEMI, resolved s/p heparin drip.... Noted to have soft blood pressures and heart rate therefore Lopressor discontinued,continue aspirin , statin and outpatient workup with Cardiology. Acute renal failure resolved. dvt prophylaxis - Lovenox once daily. Full Code DISPO plan for extensive rehab Has [facility] guardian, pending SNF placement. Requires continued hospitalization for safe disposition. Time Spent With Patient Time: Total time managing care of this patient today ____ minutes. Quality Stroke Does the patient have a stroke diagnosis?: No VTE Prior VTE?: No VTE Risk Level:: Medical - moderate - high VTE Device Contraindication: N/A - Device Ordered VTE Drug Contraindication: N/A - Med Ordered
[2023-06-16 15:03] VITALS: BP 119/70; PULSE 82; RESP 18; TEMP 36.7; O2SAT 98
[2023-06-16 19:25] VITALS: BP 111/63; PULSE 71; RESP 18; TEMP 36.6; O2SAT 98
[2023-06-16] MEDS: Docusate Sodium 100 MG CAPSULE 200 MG PO (20:06)
[2023-06-16] MEDS: OLANZapine 10 MG TABLET PO (20:06)
[2023-06-16] MEDS: Atorvastatin Calcium 40 MG TABLET PO (20:07)
[2023-06-17 03:18] VITALS: BP 114/67; PULSE 68; RESP 18; TEMP 36.3; O2SAT 97
[2023-06-17 08:00] VITALS: BP 116/76; PULSE 57; RESP 18; TEMP 36.4; O2SAT 98
[2023-06-17] MEDS: Aspirin 81 MG TAB.CHEW PO (08:27)
[2023-06-17] MEDS: Folic Acid 1 MG TABLET PO (08:27)
[2023-06-17] MEDS: Sertraline HCL 50 MG TABLET PO (08:27)
[2023-06-17] MEDS: Baclofen 10 MG TABLET PO ×3 (08:27→19:48)
[2023-06-17] MEDS: Multivitamin TABLET 1 TAB PO (08:27)
[2023-06-17] MEDS: Thiamine HCL 100 MG TABLET PO (08:27)
[2023-06-17] MEDS: Nystatin Powder 15 GM BOTTLE 1 APPL TOPICAL ×3 (08:28→19:48)
--- NOTE | 2023-06-17 08:32 | HO.PM.IMPN ---
Subjective Subjective Date of Service: 06/17/23 Interval History: doing well, no new issues Physical Exam Vital Signs: Vital Signs: Last Vital Signs Temp 97.5 F 06/17/23 08:00 Pulse 57 06/17/23 08:00 Resp 18 06/17/23 08:00 BP 116/76 06/17/23 08:00 Pulse Ox 98 06/17/23 08:00 O2 Del Method Room Air 06/17/23 08:00 O2 Flow Rate 98 05/17/23 20:00 FiO2 30 04/23/23 11:00 BMI result Body Mass Index 21.0 Const: Other: Constitutional : Awake, alert, not in distress Neck : Normal inspection, Supple Cardiovascular : RRR, no JVP, no lower extremity edema Respiratory : good bilateral air entry,? no crackles, wheezes or rhonchi Gastrointestinal:? soft,? Normal bowel sounds, Non tender Skin : Warm, Dry extremities no edema Objective Data Active Medications Acetaminophen (Acetaminophen Oral Liquid 650 Mg/20.3 Ml Solution) 650 mg PO Q6H PRN PRN Reason: Fever Last Admin: 06/14/23 19:56 Dose: 650 mg Documented By: DAVID Aspirin (Aspirin 81 Mg Tab.Chew) 81 mg PO DAILY [facility] Last Admin: 06/17/23 08:27 Dose: 81 mg Documented By: KATHRINE Atorvastatin Calcium (Atorvastatin Calcium 40 Mg Tablet) 40 mg PO BEDTIME [facility] Last Admin: 06/16/23 20:07 Dose: 40 mg Documented By: JADIEL Baclofen (Baclofen 10 Mg Tablet) 10 mg PO TID [facility] Last Admin: 06/17/23 08:27 Dose: 10 mg Documented By: KATHRINE Docusate Sodium (Docusate Sodium 100 Mg Capsule) 200 mg PO BEDTIME [facility] Last Admin: 06/16/23 20:06 Dose: 200 mg Documented By: JADIEL Enoxaparin Sodium (Enoxaparin Sodium 40 Mg/0.4 Ml Syringe) 40 mg SUBCUT Q24H [facility] Last Admin: 06/16/23 14:13 Dose: Not Given Documented By: KATHRINE Non-Admin Reason: Patient Refused Folic Acid (Folic Acid 1 Mg Tablet) 1 mg PO DAILY [facility] Last Admin: 06/17/23 08:27 Dose: 1 mg Documented By: KATHRINE Ibuprofen (Ibuprofen 400 Mg Tablet) 400 mg PO Q8H PRN PRN Reason: Pain, Moderate(Pain Scale 4-6) Last Admin: 06/15/23 20:24 Dose: 400 mg Documented By: ROGER Magnesium Hydroxide (Milk Of Magnesia 30 Ml Oral.Susp) 30 ml PO DAILY PRN PRN Reason: Constipation Multivitamins/Vitamin C (Multivitamin Tablet) 1 tab PO DAILY [facility] Last Admin: 06/17/23 08:27 Dose: 1 tab Documented By: KATHRINE Naloxone HCl (Naloxone Hcl 0.4 Mg/Ml Vial) 0.2 mg IVPUSH Q2M PRN PRN Reason: Excessive sedation or RR < 8 Nystatin (Nystatin Powder 15 Gm Bottle) 1 appl TOPICAL TID [facility]; Protocol Last Admin: 06/17/23 08:28 Dose: 1 appl Documented By: KATHRINE Olanzapine (Olanzapine 10 Mg Tablet) 10 mg PO BEDTIME [facility] Last Admin: 06/16/23 20:06 Dose: 10 mg Documented By: JADIEL Sertraline HCl (Sertraline Hcl 50 Mg Tablet) 50 mg PO DAILY [facility] Last Admin: 06/17/23 08:27 Dose: 50 mg Documented By: KATHRINE Thiamine HCl (Thiamine Hcl 100 Mg Tablet) 100 mg PO DAILY [facility] Last Admin: 06/17/23 08:27 Dose: 100 mg Documented By: KATHRINE Labs 05/07/23 06:02 06/10/23 11:55 Assessment and Plan (1) Anoxic encephalopathy: Status: Acute Plan 28-year-old man with underlying history of schizophrenia, alcohol use, marijuana use?admitted on 04/08/2023 after he was noted to be unresponsive by his girlfriend for undetermined amount of time. He was transported by EMS to emergency room where he was intubated fo acute hypoxic respiratory failure. Further work up revealed aspiration and left pneumothorax.? Initial left mid axillary chest tube placed in emergency room with persistence of pneumothorax and questionable subdiaphragmatic placement.? Chest tube removed and replaced with left midclavicular in 3rd intercostal space with air evacuation and improvement in pneumothorax.? Patient also noted to have acute kidney injury and rhabdomyolysis and started on IV fluid hydration. He underwent right gluteal fasciotomy with significant improvement in his CPK and renal function.? However, remains persistently encephalopathic.? MRI on 04/10/2023 with bilateral cerebral anoxic related encephalopathy. ? Evaluated by neurology with prognosis consider to be guarded, but not catastrophic. Overall with slow neurologic improvement, With significant improvement on 04/23/2023. extubated 04/23/2023 and downgraded to the medical floor on 04/25. 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 Schizophrenia sertraline 50mg/olanzapine 10mg HS psych following as needed NSTEMI, resolved s/p heparin drip.... Noted to have soft blood pressures and heart rate therefore Lopressor discontinued,continue aspirin , statin and outpatient workup with Cardiology. Acute renal failure resolved. dvt prophylaxis - Lovenox once daily. Full Code DISPO plan for extensive rehab Has [facility] guardian, pending SNF placement. Requires continued hospitalization for safe disposition. Time Spent With Patient Time: Total time managing care of this patient today ____ minutes. Quality Stroke Does the patient have a stroke diagnosis?: No VTE Prior VTE?: No VTE Risk Level:: Medical - moderate - high VTE Device Contraindication: N/A - Device Ordered VTE Drug Contraindication: N/A - Med Ordered
--- NOTE | 2023-06-17 10:32 | MHC.CM.PN ---
Addendum entered by Laine Ding 06/17/23 14:31: A call was received from Kenia Gonzalez. employment director, Ector Whitehead will come to [facility] [email or web address] to assess the patient for admission to [facility]. Original Note: Patient is recommended for ACUTE rehab. [facility] was contacted via phone. A detailed VM was left for Shi. A request for the [facility] to come in to meet with the patient was made. [facility] was contacted via [employer]. Ector Whitehead, tool programmer plans to speak with Kayleigh from [facility] today. An offer to meet the patient in person was extentended. [facility] is [facility]. They were contacted via [email or web address]. An offer to meet the patient was extended. If they accept the patient, denials will be sent to the facility. They would need to request an [facility] contract. Patient will transport via BLS once a bed is obtained.
[2023-06-17 15:54] VITALS: BP 128/66; PULSE 81; RESP 17; TEMP 36.5; O2SAT 95
[2023-06-17] MEDS: Atorvastatin Calcium 40 MG TABLET PO (19:48)
[2023-06-17] MEDS: Docusate Sodium 100 MG CAPSULE 200 MG PO (19:48)
[2023-06-17] MEDS: OLANZapine 10 MG TABLET PO (19:48)
[2023-06-17] MEDS: Ibuprofen 400 MG TABLET PO (19:51)
[2023-06-17 19:59] VITALS: BP 119/64; PULSE 65; RESP 17; TEMP 36.6; O2SAT 96
[2023-06-18 03:58] VITALS: BP 115/61; PULSE 54; RESP 16; TEMP 36.2; O2SAT 99
[2023-06-18 07:26] VITALS: BP 123/63; PULSE 52; RESP 18; TEMP 36; O2SAT 98
[2023-06-18] MEDS: Baclofen 10 MG TABLET PO ×3 (07:35→20:46)
[2023-06-18] MEDS: Folic Acid 1 MG TABLET PO (07:35)
[2023-06-18] MEDS: Sertraline HCL 50 MG TABLET PO (07:35)
[2023-06-18] MEDS: Multivitamin TABLET 1 TAB PO (07:35)
[2023-06-18] MEDS: Thiamine HCL 100 MG TABLET PO (07:35)
[2023-06-18] MEDS: Aspirin 81 MG TAB.CHEW PO (07:35)
[2023-06-18] MEDS: Nystatin Powder 15 GM BOTTLE 1 APPL TOPICAL ×2 (07:35→14:25)
--- NOTE | 2023-06-18 10:53 | HO.PM.IMPN ---
Subjective Subjective Date of Service: 06/18/23 Interval History: doing well, no new issues, Physical Exam Vital Signs: Vital Signs: Last Vital Signs Temp 96.8 F 06/18/23 07:26 Pulse 52 06/18/23 07:26 Resp 18 06/18/23 07:26 BP 123/63 06/18/23 07:26 Pulse Ox 98 06/18/23 07:26 O2 Del Method Room Air 06/18/23 07:26 O2 Flow Rate 98 05/17/23 20:00 FiO2 30 04/23/23 11:00 BMI result Body Mass Index 21.0 Const: Other: Constitutional : Awake, alert, not in distress Neck : Normal inspection, Supple Cardiovascular : RRR, no JVP, no lower extremity edema Respiratory : good bilateral air entry,? no crackles, wheezes or rhonchi Gastrointestinal:? soft,? Normal bowel sounds, Non tender Skin : Warm, Dry extremities no edema Objective Data Active Medications Acetaminophen (Acetaminophen Oral Liquid 650 Mg/20.3 Ml Solution) 650 mg PO Q6H PRN PRN Reason: Fever Last Admin: 06/14/23 19:56 Dose: 650 mg Documented By: DAVID Aspirin (Aspirin 81 Mg Tab.Chew) 81 mg PO DAILY [facility] Last Admin: 06/18/23 07:35 Dose: 81 mg Documented By: KATHRINE Atorvastatin Calcium (Atorvastatin Calcium 40 Mg Tablet) 40 mg PO BEDTIME [facility] Last Admin: 06/17/23 19:48 Dose: 40 mg Documented By: JADIEL Baclofen (Baclofen 10 Mg Tablet) 10 mg PO TID [facility] Last Admin: 06/18/23 07:35 Dose: 10 mg Documented By: KATHRINE Docusate Sodium (Docusate Sodium 100 Mg Capsule) 200 mg PO BEDTIME [facility] Last Admin: 06/17/23 19:48 Dose: 200 mg Documented By: JADIEL Enoxaparin Sodium (Enoxaparin Sodium 40 Mg/0.4 Ml Syringe) 40 mg SUBCUT Q24H [facility] Last Admin: 06/17/23 14:06 Dose: Not Given Documented By: KATHRINE Non-Admin Reason: Patient Refused Folic Acid (Folic Acid 1 Mg Tablet) 1 mg PO DAILY [facility] Last Admin: 06/18/23 07:35 Dose: 1 mg Documented By: KATHRINE Ibuprofen (Ibuprofen 400 Mg Tablet) 400 mg PO Q8H PRN PRN Reason: Pain, Moderate(Pain Scale 4-6) Last Admin: 06/17/23 19:51 Dose: 400 mg Documented By: JADIEL Magnesium Hydroxide (Milk Of Magnesia 30 Ml Oral.Susp) 30 ml PO DAILY PRN PRN Reason: Constipation Multivitamins/Vitamin C (Multivitamin Tablet) 1 tab PO DAILY [facility] Last Admin: 06/18/23 07:35 Dose: 1 tab Documented By: KATHRINE Naloxone HCl (Naloxone Hcl 0.4 Mg/Ml Vial) 0.2 mg IVPUSH Q2M PRN PRN Reason: Excessive sedation or RR < 8 Nystatin (Nystatin Powder 15 Gm Bottle) 1 appl TOPICAL TID [facility]; Protocol Last Admin: 06/18/23 07:35 Dose: 1 appl Documented By: KATHRINE Olanzapine (Olanzapine 10 Mg Tablet) 10 mg PO BEDTIME [facility] Last Admin: 06/17/23 19:48 Dose: 10 mg Documented By: JADIEL Sertraline HCl (Sertraline Hcl 50 Mg Tablet) 50 mg PO DAILY [facility] Last Admin: 06/18/23 07:35 Dose: 50 mg Documented By: KATHRINE Thiamine HCl (Thiamine Hcl 100 Mg Tablet) 100 mg PO DAILY [facility] Last Admin: 06/18/23 07:35 Dose: 100 mg Documented By: KATHRINE Labs 05/07/23 06:02 06/10/23 11:55 Assessment and Plan (1) Anoxic encephalopathy: Status: Acute Plan 28-year-old man with underlying history of schizophrenia, alcohol use, marijuana use?admitted on 04/08/2023 after he was noted to be unresponsive by his girlfriend for undetermined amount of time. He was transported by EMS to emergency room where he was intubated fo acute hypoxic respiratory failure. Further work up revealed aspiration and left pneumothorax.? Initial left mid axillary chest tube placed in emergency room with persistence of pneumothorax and questionable subdiaphragmatic placement.? Chest tube removed and replaced with left midclavicular in 3rd intercostal space with air evacuation and improvement in pneumothorax.? Patient also noted to have acute kidney injury and rhabdomyolysis and started on IV fluid hydration. He underwent right gluteal fasciotomy with significant improvement in his CPK and renal function.? However, remains persistently encephalopathic.? MRI on 04/10/2023 with bilateral cerebral anoxic related encephalopathy. ? Evaluated by neurology with prognosis consider to be guarded, but not catastrophic. Overall with slow neurologic improvement, With significant improvement on 04/23/2023. extubated 04/23/2023 and downgraded to the medical floor on 04/25. has since been awaiting placement, with ongoing improvement in mental status, improved speech, awareness, motor functions essentially no new issues Anoxic brain injury secondary to aspiration pneumonia related to polysubstance overdose with anoxic encephalopathy (ANI) continues to improve , continue participatiion in PT and OT ACute rehab when available Baclofen as muscle relaxant, Motrin prn for pain right knee discomfort improved after knee buckled on 06/12. Schizophrenia sertraline 50mg/olanzapine 10mg HS psych following as needed NSTEMI, resolved s/p heparin drip.... Noted to have soft blood pressures and heart rate therefore Lopressor discontinued,continue aspirin , statin and outpatient workup with Cardiology. Acute renal failure resolved. dvt prophylaxis - Lovenox once daily. Full Code DISPO plan for extensive rehab Has [facility] guardian, pending SNF placement. Requires continued hospitalization for safe disposition. encourage participation in PT Time Spent With Patient Time: Total time managing care of this patient today ____ minutes. Quality Stroke Does the patient have a stroke diagnosis?: No VTE Prior VTE?: No VTE Risk Level:: Medical - moderate - high VTE Device Contraindication: N/A - Device Ordered VTE Drug Contraindication: N/A - Med Ordered
[2023-06-18 15:34] VITALS: BP 141/68; PULSE 69; RESP 17; TEMP 36.3; O2SAT 97
--- NOTE | 2023-06-18 15:59 | MHC.SL.SOA ---
Referring Provider: Chaim Mccullough MD Reason for Referral: Post-extubation Date of Plan of Treatment:04/24/23 Onset of Symptoms/Illness:04/23/23 Date Treatment Started:04/24/23 Medical Diagnosis:Anoxic encephalopathy, polysubstance abuse, schizophrenia Primary Speech Language Diagnosis:R13.12 Oropharyngeal Phase Dysphagia Secondary Speech Language Diagnosis: Number of Authorized Visits Remaining: Authorization End Date: Reason for Visit:[id number] Individual Treatment Subjective:Lon is a 28 year old male who has been seen by speech therapy during inpatient stay at [facility] since early April 2023 for dysphagia, cognition, and language. During today's visit, Lon was seated in chair in a positive mood agreeable to cognitive-linguistic testing. In regards to education level, Lon reports that he finished sophomore year of high school then dropped out jerome year when he was 18 years old. Objective: This clinician administered the Repeatable Battery for the Assessment of Neuropsychological Status (RBANS) Update - Record Form a on this date. The RBANS-Updated Form A assesses aspects of cognitive memory, language, and attention skills. The RBANS is considered a screening battery for cognitive function and is repeatable for the purpose of evaluating any changes in function. It is intended for use with adolescents and adults, ages 12 to 89 years. Composite domains assessed in this test are: Immediate Memory, Visuospatial/Constructional, Language, Attention, and Delayed Memory. Lon's performance is summarized below: Assessment: Index scores & interpretation (domain: index score, interpretation): Immediate Memory: 61, Extremely Low Language: 74, Borderline Attention: 53, Extremely Low Subtest scaled scores and interpretation (subtest: scaled score, interpretation): List Learnin, Borderline Story Memory: 3, Extremely Low Semantic Fluency: 1, Extremely Low Digit span: 5, Borderline Codin, Extremely Low Story recall: 4, Borderline Due to patient's impacted fine motor ability and the reliance on these skills for particular test areas, standardized scores for the visuospatial/constructional domain and figure copy subtests are not reported. Plan: Acute rehabilitation for speech therapy in the area of cognition is recommended as next level of care. Goals in the area of immediate memory and attention are recommended. Further testing in delayed memory is recommended. Goal # : Lon will listen to short paragraph (3-5 sentences) and answer comprehension questions with 80% accuracy (immediate recall) when provided with minimal assistance and no more than one repetition. Status of Goal: New Goal Goal # : Lon will recall independently 2-3 memory strategies with 100% accuracy. Status of Goal: New Goal Goal # : Lon will participate in formal and informal assessment tasks of cognitive function. Status of Goal: New Goal Seen by: Graduate/Clinical Fellow: No Supervisory Statement: f_Reg Query Last Value , MHC.AU.SIGNAT Speech Language Pathologist: Thu Lara M.A., CCC-WE[employer]ER
[2023-06-18 19:57] VITALS: BP 126/60; PULSE 67; RESP 17; TEMP 36.4; O2SAT 97
[2023-06-18] MEDS: Docusate Sodium 100 MG CAPSULE 200 MG PO (20:46)
[2023-06-18] MEDS: OLANZapine 10 MG TABLET PO (20:46)
[2023-06-18] MEDS: Atorvastatin Calcium 40 MG TABLET PO (20:46)
[2023-06-19 02:43] VITALS: BP 110/55; PULSE 53; RESP 16; TEMP 36.5; O2SAT 96
[2023-06-19 07:36] VITALS: BP 106/55; PULSE 50; RESP 18; TEMP 36.3; O2SAT 95
--- NOTE | 2023-06-19 09:32 | HO.PM.IMPN ---
Subjective Subjective Date of Service: 06/19/23 Interval History: No new issues Physical Exam Vital Signs: Vital Signs: Last Vital Signs Temp 97.4 F 06/19/23 07:36 Pulse 50 06/19/23 07:36 Resp 18 06/19/23 07:36 BP 106/55 L 06/19/23 07:36 Pulse Ox 95 06/19/23 07:36 O2 Del Method Room Air 06/19/23 07:36 O2 Flow Rate 98 05/17/23 20:00 FiO2 30 04/23/23 11:00 BMI result Body Mass Index 21.0 Const: Other: Constitutional : Awake, alert, not in distress Neck : Normal inspection, Supple Cardiovascular : RRR, no JVP, no lower extremity edema Respiratory : good bilateral air entry,? no crackles, wheezes or rhonchi Gastrointestinal:? soft,? Normal bowel sounds, Non tender Skin : Warm, Dry extremities no edema Objective Data Active Medications Acetaminophen (Acetaminophen Oral Liquid 650 Mg/20.3 Ml Solution) 650 mg PO Q6H PRN PRN Reason: Fever Last Admin: 06/14/23 19:56 Dose: 650 mg Documented By: DAVID Aspirin (Aspirin 81 Mg Tab.Chew) 81 mg PO DAILY [facility] Last Admin: 06/18/23 07:35 Dose: 81 mg Documented By: KATHRINE Atorvastatin Calcium (Atorvastatin Calcium 40 Mg Tablet) 40 mg PO BEDTIME [facility] Last Admin: 06/18/23 20:46 Dose: 40 mg Documented By: MARYANN Baclofen (Baclofen 10 Mg Tablet) 10 mg PO TID [facility] Last Admin: 06/18/23 20:46 Dose: 10 mg Documented By: MARYANN Docusate Sodium (Docusate Sodium 100 Mg Capsule) 200 mg PO BEDTIME [facility] Last Admin: 06/18/23 20:46 Dose: 200 mg Documented By: MARYANN Enoxaparin Sodium (Enoxaparin Sodium 40 Mg/0.4 Ml Syringe) 40 mg SUBCUT Q24H [facility] Last Admin: 06/18/23 14:24 Dose: Not Given Documented By: KATHRINE Non-Admin Reason: Patient Refused Folic Acid (Folic Acid 1 Mg Tablet) 1 mg PO DAILY [facility] Last Admin: 06/18/23 07:35 Dose: 1 mg Documented By: KATHRINE Ibuprofen (Ibuprofen 400 Mg Tablet) 400 mg PO Q8H PRN PRN Reason: Pain, Moderate(Pain Scale 4-6) Last Admin: 06/17/23 19:51 Dose: 400 mg Documented By: JADIEL Magnesium Hydroxide (Milk Of Magnesia 30 Ml Oral.Susp) 30 ml PO DAILY PRN PRN Reason: Constipation Multivitamins/Vitamin C (Multivitamin Tablet) 1 tab PO DAILY [facility] Last Admin: 06/18/23 07:35 Dose: 1 tab Documented By: KATHRINE Naloxone HCl (Naloxone Hcl 0.4 Mg/Ml Vial) 0.2 mg IVPUSH Q2M PRN PRN Reason: Excessive sedation or RR < 8 Nystatin (Nystatin Powder 15 Gm Bottle) 1 appl TOPICAL TID [facility]; Protocol Last Admin: 06/18/23 20:47 Dose: Not Given Documented By: MARYANN Non-Admin Reason: Patient Refused Olanzapine (Olanzapine 10 Mg Tablet) 10 mg PO BEDTIME [facility] Last Admin: 06/18/23 20:46 Dose: 10 mg Documented By: MARYANN Sertraline HCl (Sertraline Hcl 50 Mg Tablet) 50 mg PO DAILY [facility] Last Admin: 06/18/23 07:35 Dose: 50 mg Documented By: KATHRINE Thiamine HCl (Thiamine Hcl 100 Mg Tablet) 100 mg PO DAILY [facility] Last Admin: 06/18/23 07:35 Dose: 100 mg Documented By: KATHRINE Labs 05/07/23 06:02 06/10/23 11:55 Assessment and Plan (1) Anoxic encephalopathy: Status: Acute Plan 28-year-old man with underlying history of schizophrenia, alcohol use, marijuana use?admitted on 04/08/2023 after he was noted to be unresponsive by his girlfriend for undetermined amount of time. He was transported by EMS to emergency room where he was intubated fo acute hypoxic respiratory failure. Further work up revealed aspiration and left pneumothorax.? Initial left mid axillary chest tube placed in emergency room with persistence of pneumothorax and questionable subdiaphragmatic placement.? Chest tube removed and replaced with left midclavicular in 3rd intercostal space with air evacuation and improvement in pneumothorax.? Patient also noted to have acute kidney injury and rhabdomyolysis and started on IV fluid hydration. He underwent right gluteal fasciotomy with significant improvement in his CPK and renal function.? However, remains persistently encephalopathic.? MRI on 04/10/2023 with bilateral cerebral anoxic related encephalopathy. ? Evaluated by neurology with prognosis consider to be guarded, but not catastrophic. Overall with slow neurologic improvement, With significant improvement on 04/23/2023. extubated 04/23/2023 and downgraded to the medical floor on 04/25. has since been awaiting placement, with ongoing improvement in mental status, improved speech, awareness, motor functions essentially no new issues, continue to encourage ambulation while we wait for rehab Anoxic brain injury secondary to aspiration pneumonia related to polysubstance overdose with anoxic encephalopathy (ANI) continues to improve , continue participatiion in PT and OT ACute rehab when available Baclofen as muscle relaxant, Motrin prn for pain right knee discomfort improved after knee buckled on 06/12. Schizophrenia sertraline 50mg/olanzapine 10mg HS psych following as needed NSTEMI, resolved s/p heparin drip.... Noted to have soft blood pressures and heart rate therefore Lopressor discontinued,continue aspirin , statin and outpatient workup with Cardiology. Acute renal failure resolved. dvt prophylaxis - Lovenox once daily. Full Code DISPO plan for extensive rehab Has [facility] guardian, pending SNF placement. Requires continued hospitalization for safe disposition. encourage participation in PT Time Spent With Patient Time: Total time managing care of this patient today ____ minutes. Quality Stroke Does the patient have a stroke diagnosis?: No VTE Prior VTE?: No VTE Risk Level:: Medical - moderate - high VTE Device Contraindication: N/A - Device Ordered VTE Drug Contraindication: N/A - Med Ordered
--- NOTE | 2023-06-19 10:20 | MHC.SLORD ---
Speech Language Pathology Order Status: Pt sleeping when visited by DESIGN SUPERVISOR this morning. Pt participated in cognitive linguistic testing yesterday, which revealed impairments in language, attention, and memory. Pt is currently awaiting placement.
[2023-06-19] MEDS: Multivitamin TABLET 1 TAB PO (10:55)
[2023-06-19] MEDS: Baclofen 10 MG TABLET PO ×3 (10:55→21:47)
[2023-06-19] MEDS: Folic Acid 1 MG TABLET PO (10:55)
[2023-06-19] MEDS: Thiamine HCL 100 MG TABLET PO (10:55)
[2023-06-19] MEDS: Aspirin 81 MG TAB.CHEW PO (10:55)
[2023-06-19] MEDS: Sertraline HCL 50 MG TABLET PO (10:55)
[2023-06-19 15:24] VITALS: BP 111/68; PULSE 66; RESP 16; TEMP 36.3; O2SAT 97
--- NOTE | 2023-06-19 16:00 | MHC.CM.PN ---
CM IS AWAITING A CALL BACK FROM [facility] AT [facility] REGARDING VISIT FROM ASSISTANT SCIENTIST WHO FEEL RISK ISSUES ARE REDUCED POST BRAIN INJURY WILL AWAIT PLACEMENT DETERMINATION FROM THE CENTER.
[2023-06-19 19:37] VITALS: BP 117/64; PULSE 65; RESP 17; TEMP 36.8; O2SAT 98
[2023-06-19] MEDS: Atorvastatin Calcium 40 MG TABLET PO (21:47)
[2023-06-19] MEDS: OLANZapine 10 MG TABLET PO (21:47)
[2023-06-19] MEDS: Docusate Sodium 100 MG CAPSULE 200 MG PO (21:47)
[2023-06-20 03:29] VITALS: BP 116/71; PULSE 55; RESP 16; TEMP 36.3; O2SAT 97
[2023-06-20 07:44] VITALS: BP 100/55; PULSE 60; RESP 15; TEMP 36; O2SAT 97
--- NOTE | 2023-06-20 08:20 | P.PNIM_ITS ---
Subjective Subjective Date of Service: 06/20/23 Interval History: No new issues, continue to make progress Physical Exam Vital Signs: Vital Signs: Last Vital Signs Temp 96.8 F 06/20/23 07:44 Pulse 60 06/20/23 07:44 Resp 15 06/20/23 07:44 BP 100/55 L 06/20/23 07:44 Pulse Ox 97 06/20/23 07:44 O2 Del Method Room Air 06/20/23 07:44 O2 Flow Rate 98 05/17/23 20:00 FiO2 30 04/23/23 11:00 BMI result Body Mass Index 21.0 Const: Other: Constitutional : Awake, alert, not in distress Neck : Normal inspection, Supple Cardiovascular : RRR, no JVP, no lower extremity edema Respiratory : good bilateral air entry,? no crackles, wheezes or rhonchi Gastrointestinal:? soft,? Normal bowel sounds, Non tender Skin : Warm, Dry extremities no edema Objective Data Active Medications Acetaminophen (Acetaminophen Oral Liquid 650 Mg/20.3 Ml Solution) 650 mg PO Q6H PRN PRN Reason: Fever Last Admin: 06/14/23 19:56 Dose: 650 mg Documented By: DAVID Aspirin (Aspirin 81 Mg Tab.Chew) 81 mg PO DAILY [facility] Last Admin: 06/19/23 10:55 Dose: 81 mg Documented By: XUAN Atorvastatin Calcium (Atorvastatin Calcium 40 Mg Tablet) 40 mg PO BEDTIME [facility] Last Admin: 06/19/23 21:47 Dose: 40 mg Documented By: BRAEDEN Baclofen (Baclofen 10 Mg Tablet) 10 mg PO TID [facility] Last Admin: 06/19/23 21:47 Dose: 10 mg Documented By: BRAEDEN Docusate Sodium (Docusate Sodium 100 Mg Capsule) 200 mg PO BEDTIME [facility] Last Admin: 06/19/23 21:47 Dose: 200 mg Documented By: BRAEDEN Enoxaparin Sodium (Enoxaparin Sodium 40 Mg/0.4 Ml Syringe) 40 mg SUBCUT Q24H [facility] Last Admin: 06/19/23 16:08 Dose: Not Given Documented By: XUAN Non-Admin Reason: Patient Refused Folic Acid (Folic Acid 1 Mg Tablet) 1 mg PO DAILY [facility] Last Admin: 06/19/23 10:55 Dose: 1 mg Documented By: XUAN Ibuprofen (Ibuprofen 400 Mg Tablet) 400 mg PO Q8H PRN PRN Reason: Pain, Moderate(Pain Scale 4-6) Last Admin: 06/17/23 19:51 Dose: 400 mg Documented By: JADIEL Magnesium Hydroxide (Milk Of Magnesia 30 Ml Oral.Susp) 30 ml PO DAILY PRN PRN Reason: Constipation Multivitamins/Vitamin C (Multivitamin Tablet) 1 tab PO DAILY [facility] Last Admin: 06/19/23 10:55 Dose: 1 tab Documented By: XUAN Naloxone HCl (Naloxone Hcl 0.4 Mg/Ml Vial) 0.2 mg IVPUSH Q2M PRN PRN Reason: Excessive sedation or RR < 8 Nystatin (Nystatin Powder 15 Gm Bottle) 1 appl TOPICAL TID [facility]; Protocol Last Admin: 06/19/23 21:51 Dose: Not Given Documented By: BRAEDEN Non-Admin Reason: Patient Refused Olanzapine (Olanzapine 10 Mg Tablet) 10 mg PO BEDTIME [facility] Last Admin: 06/19/23 21:47 Dose: 10 mg Documented By: BRAEDEN Sertraline HCl (Sertraline Hcl 50 Mg Tablet) 50 mg PO DAILY [facility] Last Admin: 06/19/23 10:55 Dose: 50 mg Documented By: XUAN Thiamine HCl (Thiamine Hcl 100 Mg Tablet) 100 mg PO DAILY [facility] Last Admin: 06/19/23 10:55 Dose: 100 mg Documented By: XUAN Labs 05/07/23 06:02 06/10/23 11:55 Assessment and Plan (1) Anoxic encephalopathy: Status: Acute Plan 28-year-old man with underlying history of schizophrenia, alcohol use, marijuana use?admitted on 04/08/2023 after he was noted to be unresponsive by his girlfriend for undetermined amount of time. He was transported by EMS to emergency room where he was intubated fo acute hypoxic respiratory failure. Further work up revealed aspiration and left pneumothorax.? Initial left mid axillary chest tube placed in emergency room with persistence of pneumothorax and questionable subdiaphragmatic placement.? Chest tube removed and replaced with left midclavicular in 3rd intercostal space with air evacuation and improvement in pneumothorax.? Patient also noted to have acute kidney injury and rhabdomyolysis and started on IV fluid hydration. He underwent right gluteal fasciotomy with significant improvement in his CPK and renal function.? However, remains persistently encephalopathic.? MRI on 04/10/2023 with bilateral cerebral anoxic related encephalopathy. ? Evaluated by neurology with prognosis consider to be guarded, but not catastrophic. Overall with slow neurologic improvement, With significant improvement on 04/23/2023. extubated 04/23/2023 and downgraded to the medical floor on 04/25. 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 Schizophrenia sertraline 50mg/olanzapine 10mg HS psych following as needed NSTEMI, resolved s/p heparin drip.... Noted to have soft blood pressures and heart rate therefore Lopressor discontinued,continue aspirin , statin and outpatient workup with Cardiology. Acute renal failure resolved. dvt prophylaxis - Lovenox once daily. Full Code DISPO plan for extensive rehab Has [facility] guardian, pending SNF placement. Requires continued hospitalization for safe disposition. encourage participation in PT Time Spent With Patient Time: Total time managing care of this patient today ____ minutes. Quality Stroke Does the patient have a stroke diagnosis?: No VTE Prior VTE?: No VTE Risk Level:: Medical - moderate - high VTE Device Contraindication: N/A - Device Ordered VTE Drug Contraindication: N/A - Med Ordered
[2023-06-20] MEDS: Sertraline HCL 50 MG TABLET PO (08:43)
[2023-06-20] MEDS: Aspirin 81 MG TAB.CHEW PO (08:43)
[2023-06-20] MEDS: Multivitamin TABLET 1 TAB PO (08:43)
[2023-06-20] MEDS: Baclofen 10 MG TABLET PO ×3 (08:43→20:39)
[2023-06-20] MEDS: Folic Acid 1 MG TABLET PO (08:43)
[2023-06-20] MEDS: Thiamine HCL 100 MG TABLET PO (08:43)
[2023-06-20] MEDS: Nystatin Powder 15 GM BOTTLE 1 APPL TOPICAL (08:44)
[2023-06-20 15:51] VITALS: BP 117/72; PULSE 72; RESP 20; TEMP 36.2; O2SAT 98
[2023-06-20 19:49] VITALS: BP 110/57; PULSE 69; RESP 20; TEMP 36.5; O2SAT 95
[2023-06-20] MEDS: Docusate Sodium 100 MG CAPSULE 200 MG PO (20:38)
[2023-06-20] MEDS: Atorvastatin Calcium 40 MG TABLET PO (20:39)
[2023-06-20] MEDS: OLANZapine 10 MG TABLET PO (20:39)
[2023-06-21 01:56] VITALS: BP 124/59; PULSE 55; RESP 18; TEMP 36.5; O2SAT 97
[2023-06-21 08:00] VITALS: BP 112/66; PULSE 53; RESP 18; TEMP 36.6; O2SAT 96
--- NOTE | 2023-06-21 09:08 | HO.PM.IMPN ---
Subjective Subjective Date of Service: 06/21/23 Interval History: doing well by all accounts, eating breakfast and conversant normally. Physical Exam Vital Signs: Vital Signs: Last Vital Signs Temp 97.8 F 06/21/23 08:00 Pulse 53 06/21/23 08:00 Resp 18 06/21/23 08:00 BP 112/66 06/21/23 08:00 Pulse Ox 96 06/21/23 08:00 O2 Del Method Room Air 06/21/23 08:00 O2 Flow Rate 98 05/17/23 20:00 FiO2 30 04/23/23 11:00 BMI result Body Mass Index 21.0 Const: Other: Constitutional : Awake, alert, not in distress Neck : Normal inspection, Supple Cardiovascular : RRR, no JVP, no lower extremity edema Respiratory : good bilateral air entry,? no crackles, wheezes or rhonchi Gastrointestinal:? soft,? Normal bowel sounds, Non tender Skin : Warm, Dry extremities no edema Objective Data Active Medications Acetaminophen (Acetaminophen Oral Liquid 650 Mg/20.3 Ml Solution) 650 mg PO Q6H PRN PRN Reason: Fever Last Admin: 06/14/23 19:56 Dose: 650 mg Documented By: DAVID Aspirin (Aspirin 81 Mg Tab.Chew) 81 mg PO DAILY [facility] Last Admin: 06/20/23 08:43 Dose: 81 mg Documented By: OLIVIA Atorvastatin Calcium (Atorvastatin Calcium 40 Mg Tablet) 40 mg PO BEDTIME [facility] Last Admin: 06/20/23 20:39 Dose: 40 mg Documented By: BRAEDEN Baclofen (Baclofen 10 Mg Tablet) 10 mg PO TID [facility] Last Admin: 06/20/23 20:39 Dose: 10 mg Documented By: BRAEDEN Docusate Sodium (Docusate Sodium 100 Mg Capsule) 200 mg PO BEDTIME [facility] Last Admin: 06/20/23 20:38 Dose: 200 mg Documented By: BRAEDEN Enoxaparin Sodium (Enoxaparin Sodium 40 Mg/0.4 Ml Syringe) 40 mg SUBCUT Q24H [facility] Last Admin: 06/20/23 14:19 Dose: Not Given Documented By: OLIVIA Non-Admin Reason: Patient Refused Folic Acid (Folic Acid 1 Mg Tablet) 1 mg PO DAILY [facility] Last Admin: 06/20/23 08:43 Dose: 1 mg Documented By: OLIVIA Ibuprofen (Ibuprofen 400 Mg Tablet) 400 mg PO Q8H PRN PRN Reason: Pain, Moderate(Pain Scale 4-6) Last Admin: 06/17/23 19:51 Dose: 400 mg Documented By: JADIEL Magnesium Hydroxide (Milk Of Magnesia 30 Ml Oral.Susp) 30 ml PO DAILY PRN PRN Reason: Constipation Multivitamins/Vitamin C (Multivitamin Tablet) 1 tab PO DAILY [facility] Last Admin: 06/20/23 08:43 Dose: 1 tab Documented By: OLIVIA Naloxone HCl (Naloxone Hcl 0.4 Mg/Ml Vial) 0.2 mg IVPUSH Q2M PRN PRN Reason: Excessive sedation or RR < 8 Nystatin (Nystatin Powder 15 Gm Bottle) 1 appl TOPICAL TID [facility]; Protocol Last Admin: 06/20/23 20:40 Dose: Not Given Documented By: BRAEDEN Non-Admin Reason: Patient Refused Olanzapine (Olanzapine 10 Mg Tablet) 10 mg PO BEDTIME [facility] Last Admin: 06/20/23 20:39 Dose: 10 mg Documented By: BRAEDEN Sertraline HCl (Sertraline Hcl 50 Mg Tablet) 50 mg PO DAILY [facility] Last Admin: 06/20/23 08:43 Dose: 50 mg Documented By: OLIVIA Thiamine HCl (Thiamine Hcl 100 Mg Tablet) 100 mg PO DAILY [facility] Last Admin: 06/20/23 08:43 Dose: 100 mg Documented By: OLIVIA Labs 05/07/23 06:02 06/10/23 11:55 Assessment and Plan (1) Anoxic encephalopathy: Status: Acute Plan 28-year-old man with underlying history of schizophrenia, alcohol use, marijuana use?admitted on 04/08/2023 after he was noted to be unresponsive by his girlfriend for undetermined amount of time. He was transported by EMS to emergency room where he was intubated fo acute hypoxic respiratory failure. Further work up revealed aspiration and left pneumothorax.? Initial left mid axillary chest tube placed in emergency room with persistence of pneumothorax and questionable subdiaphragmatic placement.? Chest tube removed and replaced with left midclavicular in 3rd intercostal space with air evacuation and improvement in pneumothorax.? Patient also noted to have acute kidney injury and rhabdomyolysis and started on IV fluid hydration. He underwent right gluteal fasciotomy with significant improvement in his CPK and renal function.? However, remains persistently encephalopathic.? MRI on 04/10/2023 with bilateral cerebral anoxic related encephalopathy. ? Evaluated by neurology with prognosis consider to be guarded, but not catastrophic. Overall with slow neurologic improvement, With significant improvement on 04/23/2023. extubated 04/23/2023 and downgraded to the medical floor on 04/25. 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 Schizophrenia sertraline 50mg/olanzapine 10mg HS psych following as needed NSTEMI, resolved s/p heparin drip.... Noted to have soft blood pressures and heart rate therefore Lopressor discontinued,continue aspirin , statin and outpatient workup with Cardiology. Acute renal failure resolved. dvt prophylaxis - Lovenox once daily. Full Code DISPO plan for extensive rehab Has [facility] guardian, pending SNF placement. Requires continued hospitalization for safe disposition. encourage participation in PT Ambulate with staff Time Spent With Patient Time: Total time managing care of this patient today ____ minutes. Quality Stroke Does the patient have a stroke diagnosis?: No VTE Prior VTE?: No VTE Risk Level:: Medical - moderate - high VTE Device Contraindication: N/A - Device Ordered VTE Drug Contraindication: N/A - Med Ordered
[2023-06-21] MEDS: Sertraline HCL 50 MG TABLET PO (09:47)
[2023-06-21] MEDS: Thiamine HCL 100 MG TABLET PO (09:47)
[2023-06-21] MEDS: Aspirin 81 MG TAB.CHEW PO (09:47)
[2023-06-21] MEDS: Folic Acid 1 MG TABLET PO (09:47)
[2023-06-21] MEDS: Baclofen 10 MG TABLET PO ×3 (09:47→21:28)
[2023-06-21] MEDS: Multivitamin TABLET 1 TAB PO (09:47)
[2023-06-21 16:00] VITALS: BP 100/57; PULSE 58; RESP 17; TEMP 36.6; O2SAT 98
[2023-06-21 20:00] VITALS: BP 107/59; PULSE 89; RESP 20; TEMP 36.8; O2SAT 90
[2023-06-21] MEDS: Docusate Sodium 100 MG CAPSULE 200 MG PO (21:28)
[2023-06-21] MEDS: Atorvastatin Calcium 40 MG TABLET PO (21:29)
[2023-06-21] MEDS: OLANZapine 10 MG TABLET PO (21:29)
[2023-06-22 04:00] VITALS: BP 100/62; PULSE 50; RESP 18; TEMP 36.4; O2SAT 97
[2023-06-22 07:47] VITALS: BP 104/58; PULSE 50; RESP 20; TEMP 36.6; O2SAT 96
[2023-06-22] MEDS: Aspirin 81 MG TAB.CHEW PO (07:47)
[2023-06-22] MEDS: Sertraline HCL 50 MG TABLET PO (07:47)
[2023-06-22] MEDS: Multivitamin TABLET 1 TAB PO (07:48)
[2023-06-22] MEDS: Nystatin Powder 15 GM BOTTLE 1 APPL TOPICAL ×3 (07:48→20:53)
[2023-06-22] MEDS: Baclofen 10 MG TABLET PO ×3 (07:48→20:52)
[2023-06-22] MEDS: Folic Acid 1 MG TABLET PO (07:48)
[2023-06-22] MEDS: Thiamine HCL 100 MG TABLET PO (07:48)
--- NOTE | 2023-06-22 08:02 | P.PNIM_ITS ---
Subjective Subjective Date of Service: 06/22/23 Interval History: awake, alert no new issues, no questions Physical Exam Vital Signs: Vital Signs: Last Vital Signs Temp 97.9 F 06/22/23 07:47 Pulse 50 06/22/23 07:47 Resp 20 06/22/23 07:47 BP 104/58 L 06/22/23 07:47 Pulse Ox 96 06/22/23 07:47 O2 Del Method Room Air 06/22/23 07:47 O2 Flow Rate 98 05/17/23 20:00 FiO2 30 04/23/23 11:00 BMI result Body Mass Index 21.0 Const: Other: Constitutional : Awake, alert, not in distress Neck : Normal inspection, Supple Cardiovascular : RRR, no JVP, no lower extremity edema Respiratory : good bilateral air entry,? no crackles, wheezes or rhonchi Gastrointestinal:? soft,? Normal bowel sounds, Non tender Skin : Warm, Dry extremities no edema Objective Data Active Medications Acetaminophen (Acetaminophen Oral Liquid 650 Mg/20.3 Ml Solution) 650 mg PO Q6H PRN PRN Reason: Fever Last Admin: 06/14/23 19:56 Dose: 650 mg Documented By: DAVID Aspirin (Aspirin 81 Mg Tab.Chew) 81 mg PO DAILY [facility] Last Admin: 06/22/23 07:47 Dose: 81 mg Documented By: KATHRINE Atorvastatin Calcium (Atorvastatin Calcium 40 Mg Tablet) 40 mg PO BEDTIME [facility] Last Admin: 06/21/23 21:29 Dose: 40 mg Documented By: BRAEDEN Baclofen (Baclofen 10 Mg Tablet) 10 mg PO TID [facility] Last Admin: 06/22/23 07:48 Dose: 10 mg Documented By: KATHRINE Docusate Sodium (Docusate Sodium 100 Mg Capsule) 200 mg PO BEDTIME [facility] Last Admin: 06/21/23 21:28 Dose: 200 mg Documented By: BRAEDEN Enoxaparin Sodium (Enoxaparin Sodium 40 Mg/0.4 Ml Syringe) 40 mg SUBCUT Q24H [facility] Last Admin: 06/21/23 14:37 Dose: Not Given Documented By: OLIVIA Non-Admin Reason: Patient Refused Folic Acid (Folic Acid 1 Mg Tablet) 1 mg PO DAILY [facility] Last Admin: 06/22/23 07:48 Dose: 1 mg Documented By: KATHRINE Ibuprofen (Ibuprofen 400 Mg Tablet) 400 mg PO Q8H PRN PRN Reason: Pain, Moderate(Pain Scale 4-6) Last Admin: 06/17/23 19:51 Dose: 400 mg Documented By: JADIEL Magnesium Hydroxide (Milk Of Magnesia 30 Ml Oral.Susp) 30 ml PO DAILY PRN PRN Reason: Constipation Multivitamins/Vitamin C (Multivitamin Tablet) 1 tab PO DAILY [facility] Last Admin: 06/22/23 07:48 Dose: 1 tab Documented By: KATHRINE Naloxone HCl (Naloxone Hcl 0.4 Mg/Ml Vial) 0.2 mg IVPUSH Q2M PRN PRN Reason: Excessive sedation or RR < 8 Nystatin (Nystatin Powder 15 Gm Bottle) 1 appl TOPICAL TID [facility]; Protocol Last Admin: 06/22/23 07:48 Dose: 1 appl Documented By: KATHRINE Olanzapine (Olanzapine 10 Mg Tablet) 10 mg PO BEDTIME [facility] Last Admin: 06/21/23 21:29 Dose: 10 mg Documented By: BRAEDEN Sertraline HCl (Sertraline Hcl 50 Mg Tablet) 50 mg PO DAILY [facility] Last Admin: 06/22/23 07:47 Dose: 50 mg Documented By: KATHRINE Thiamine HCl (Thiamine Hcl 100 Mg Tablet) 100 mg PO DAILY [facility] Last Admin: 06/22/23 07:48 Dose: 100 mg Documented By: KATHRINE Labs 05/07/23 06:02 06/10/23 11:55 Assessment and Plan (1) Anoxic encephalopathy: Status: Acute Plan 28-year-old man with underlying history of schizophrenia, alcohol use, marijuana use?admitted on 04/08/2023 after he was noted to be unresponsive by his girlfriend for undetermined amount of time. He was transported by EMS to emergency room where he was intubated fo acute hypoxic respiratory failure. Further work up revealed aspiration and left pneumothorax.? Initial left mid axillary chest tube placed in emergency room with persistence of pneumothorax and questionable subdiaphragmatic placement.? Chest tube removed and replaced with left midclavicular in 3rd intercostal space with air evacuation and improvement in pneumothorax.? Patient also noted to have acute kidney injury and rhabdomyolysis and started on IV fluid hydration. He underwent right gluteal fasciotomy with significant improvement in his CPK and renal function.? However, remains persistently encephalopathic.? MRI on 04/10/2023 with bilateral cerebral anoxic related encephalopathy. ? Evaluated by neurology with prognosis consider to be guarded, but not catastrophic. Overall with slow neurologic improvement, With significant improvement on 04/23/2023. extubated 04/23/2023 and downgraded to the medical floor on 04/25. 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 Schizophrenia sertraline 50mg/olanzapine 10mg HS psych following as needed NSTEMI, resolved s/p heparin drip.... Noted to have soft blood pressures and heart rate therefore Lopressor discontinued,continue aspirin , statin and outpatient workup with Cardiology. Acute renal failure resolved. dvt prophylaxis - Lovenox once daily. Full Code DISPO plan for extensive rehab Has [facility] guardian, pending SNF placement. Requires continued hospitalization for safe disposition. encourage participation in PT Ambulate with staff Time Spent With Patient Time: Total time managing care of this patient today ____ minutes. Quality Stroke Does the patient have a stroke diagnosis?: No VTE Prior VTE?: No VTE Risk Level:: Medical - moderate - high VTE Device Contraindication: N/A - Device Ordered VTE Drug Contraindication: N/A - Med Ordered
--- NOTE | 2023-06-22 09:42 | MHC.CLN ---
Addendum entered by Ana Maria Dunlap RD 06/22/23 09:45: PATIENT NO LONGER TAKING ENSURE SUPPLEMENT. USUALLY EATING WELL. NO SKIN ISSUES. OK TO DISCONTINUE SUPPLEMENT. Original Note: F/U DIET=REGULAR. ENSURE TID PROVIDES ADDITIONAL 1050 KCALS, 60 G PROTEIN. SUPPLEMENT APPROPRIATE TO PROMOTE SKIN INTEGRITY AND INCREASE NUTRITIONAL INTAKE. SKIN: NO PRESSURE AREAS. MOST RECENT INTAKE AT MEALS USUALLY 75-100%. CONTINUE CURRENT DIET AND SUPPLEMENT. RD TO FOLLOW WEEKLY
[2023-06-22 15:06] VITALS: BP 115/59; PULSE 59; RESP 18; TEMP 36.2; O2SAT 98
--- NOTE | 2023-06-22 15:11 | MHC.CM.PN ---
CM SPOKE WITH CHARIS ARCE LIAISON JETT WILD. PT HAS BEEN CLINICALLY ACCEPTED, NOT YET ACCEPTED FOR FINANCIAL. CENTER WILL BE SPEAKING WITH [facility] TO GET A RATE FOR STAY, CM WILL CONTINUE TO FOLLOW FOR PLAN. [facility] NURSE RAY CALLED AND WAS UPDATED.
[2023-06-22 19:23] VITALS: BP 110/56; PULSE 60; RESP 18; TEMP 36.4; O2SAT 99
[2023-06-22] MEDS: Docusate Sodium 100 MG CAPSULE 200 MG PO (20:52)
[2023-06-22] MEDS: Atorvastatin Calcium 40 MG TABLET PO (20:52)
[2023-06-22] MEDS: OLANZapine 10 MG TABLET PO (20:52)
[2023-06-23 03:33] VITALS: BP 114/60; PULSE 60; RESP 18; TEMP 36.4; O2SAT 98
[2023-06-23] MEDS: Multivitamin TABLET 1 TAB PO (07:43)
[2023-06-23] MEDS: Aspirin 81 MG TAB.CHEW PO (07:43)
[2023-06-23] MEDS: Baclofen 10 MG TABLET PO ×3 (07:43→21:24)
[2023-06-23] MEDS: Folic Acid 1 MG TABLET PO (07:43)
[2023-06-23] MEDS: Sertraline HCL 50 MG TABLET PO (07:43)
[2023-06-23] MEDS: Thiamine HCL 100 MG TABLET PO (07:44)
[2023-06-23] MEDS: Nystatin Powder 15 GM BOTTLE 1 APPL TOPICAL ×3 (07:44→21:25)
[2023-06-23 07:47] VITALS: BP 109/69; PULSE 51; RESP 18; TEMP 36; O2SAT 97
--- NOTE | 2023-06-23 08:00 | HO.PM.IMPN ---
Subjective Subjective Date of Service: 06/23/23 Interval History: Seen and examined, awake, alert, no complaint Physical Exam Vital Signs: Vital Signs: Last Vital Signs Temp 96.8 F 06/23/23 07:47 Pulse 51 06/23/23 07:47 Resp 18 06/23/23 07:47 BP 109/69 06/23/23 07:47 Pulse Ox 97 06/23/23 07:47 O2 Del Method Room Air 06/23/23 07:47 O2 Flow Rate 98 05/17/23 20:00 FiO2 30 04/23/23 11:00 BMI result Body Mass Index 21.0 Const: Other: Constitutional : Awake, alert, not in distress Neck : Normal inspection, Supple Cardiovascular : RRR, no JVP, no lower extremity edema Respiratory : good bilateral air entry,? no crackles, wheezes or rhonchi Gastrointestinal:? soft,? Normal bowel sounds, Non tender Skin : Warm, Dry extremities no edema Objective Data Active Medications Acetaminophen (Acetaminophen Oral Liquid 650 Mg/20.3 Ml Solution) 650 mg PO Q6H PRN PRN Reason: Fever Last Admin: 06/14/23 19:56 Dose: 650 mg Documented By: DAVID Aspirin (Aspirin 81 Mg Tab.Chew) 81 mg PO DAILY [facility] Last Admin: 06/23/23 07:43 Dose: 81 mg Documented By: KATHRINE Atorvastatin Calcium (Atorvastatin Calcium 40 Mg Tablet) 40 mg PO BEDTIME [facility] Last Admin: 06/22/23 20:52 Dose: 40 mg Documented By: USMAN Baclofen (Baclofen 10 Mg Tablet) 10 mg PO TID [facility] Last Admin: 06/23/23 07:43 Dose: 10 mg Documented By: KATHRINE Docusate Sodium (Docusate Sodium 100 Mg Capsule) 200 mg PO BEDTIME [facility] Last Admin: 06/22/23 20:52 Dose: 200 mg Documented By: USMAN Enoxaparin Sodium (Enoxaparin Sodium 40 Mg/0.4 Ml Syringe) 40 mg SUBCUT Q24H [facility] Last Admin: 06/22/23 14:24 Dose: Not Given Documented By: KATHRINE Non-Admin Reason: Patient Refused Folic Acid (Folic Acid 1 Mg Tablet) 1 mg PO DAILY [facility] Last Admin: 06/23/23 07:43 Dose: 1 mg Documented By: KATHRINE Ibuprofen (Ibuprofen 400 Mg Tablet) 400 mg PO Q8H PRN PRN Reason: Pain, Moderate(Pain Scale 4-6) Last Admin: 06/17/23 19:51 Dose: 400 mg Documented By: JADIEL Magnesium Hydroxide (Milk Of Magnesia 30 Ml Oral.Susp) 30 ml PO DAILY PRN PRN Reason: Constipation Multivitamins/Vitamin C (Multivitamin Tablet) 1 tab PO DAILY [facility] Last Admin: 06/23/23 07:43 Dose: 1 tab Documented By: KATHRINE Naloxone HCl (Naloxone Hcl 0.4 Mg/Ml Vial) 0.2 mg IVPUSH Q2M PRN PRN Reason: Excessive sedation or RR < 8 Nystatin (Nystatin Powder 15 Gm Bottle) 1 appl TOPICAL TID [facility]; Protocol Last Admin: 06/23/23 07:44 Dose: 1 appl Documented By: KATHRINE Olanzapine (Olanzapine 10 Mg Tablet) 10 mg PO BEDTIME [facility] Last Admin: 06/22/23 20:52 Dose: 10 mg Documented By: OZORALB Sertraline HCl (Sertraline Hcl 50 Mg Tablet) 50 mg PO DAILY [facility] Last Admin: 06/23/23 07:43 Dose: 50 mg Documented By: KATHRINE Thiamine HCl (Thiamine Hcl 100 Mg Tablet) 100 mg PO DAILY [facility] Last Admin: 06/23/23 07:44 Dose: 100 mg Documented By: KATHRINE Labs 05/07/23 06:02 06/10/23 11:55 Assessment and Plan (1) Anoxic encephalopathy: Status: Acute Plan 28-year-old man with underlying history of schizophrenia, alcohol use, marijuana use?admitted on 04/08/2023 after he was noted to be unresponsive by his girlfriend for undetermined amount of time. He was transported by EMS to emergency room where he was intubated fo acute hypoxic respiratory failure. Further work up revealed aspiration and left pneumothorax.? Initial left mid axillary chest tube placed in emergency room with persistence of pneumothorax and questionable subdiaphragmatic placement.? Chest tube removed and replaced with left midclavicular in 3rd intercostal space with air evacuation and improvement in pneumothorax.? Patient also noted to have acute kidney injury and rhabdomyolysis and started on IV fluid hydration. He underwent right gluteal fasciotomy with significant improvement in his CPK and renal function.? However, remains persistently encephalopathic.? MRI on 04/10/2023 with bilateral cerebral anoxic related encephalopathy. ? Evaluated by neurology with prognosis consider to be guarded, but not catastrophic. Overall with slow neurologic improvement, With significant improvement on 04/23/2023. extubated 04/23/2023 and downgraded to the medical floor on 04/25. 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 Schizophrenia sertraline 50mg/olanzapine 10mg HS psych following as needed NSTEMI, resolved s/p heparin drip.... Noted to have soft blood pressures and heart rate therefore Lopressor discontinued,continue aspirin , statin and outpatient workup with Cardiology. Acute renal failure resolved. dvt prophylaxis - Lovenox once daily. Full Code DISPO plan for extensive rehab Has [facility] guardian, pending SNF placement. Requires continued hospitalization for safe disposition. encourage participation in PT Ambulate with staff Time Spent With Patient Time: Total time managing care of this patient today ____ minutes. Quality Stroke Does the patient have a stroke diagnosis?: No VTE Prior VTE?: No VTE Risk Level:: Medical - moderate - high VTE Device Contraindication: N/A - Device Ordered VTE Drug Contraindication: N/A - Med Ordered
[2023-06-23 15:35] VITALS: BP 109/56; PULSE 56; RESP 14; TEMP 36.3; O2SAT 97
[2023-06-23 19:39] VITALS: BP 116/71; PULSE 69; RESP 14; TEMP 36.2; O2SAT 97
[2023-06-23] MEDS: OLANZapine 10 MG TABLET PO (21:24)
[2023-06-23] MEDS: Atorvastatin Calcium 40 MG TABLET PO (21:24)
[2023-06-23] MEDS: Docusate Sodium 100 MG CAPSULE 200 MG PO (21:24)
[2023-06-24 03:48] VITALS: BP 101/61; PULSE 65; RESP 18; TEMP 36.3; O2SAT 97
[2023-06-24 08:00] VITALS: BP 121/80; PULSE 57; RESP 18; TEMP 36.1; O2SAT 97
[2023-06-24] MEDS: Sertraline HCL 50 MG TABLET PO (08:56)
[2023-06-24] MEDS: Folic Acid 1 MG TABLET PO (08:56)
[2023-06-24] MEDS: Baclofen 10 MG TABLET PO ×3 (08:56→21:03)
[2023-06-24] MEDS: Multivitamin TABLET 1 TAB PO (08:56)
[2023-06-24] MEDS: Thiamine HCL 100 MG TABLET PO (08:56)
[2023-06-24] MEDS: Aspirin 81 MG TAB.CHEW PO (08:57)
--- NOTE | 2023-06-24 09:54 | P.PNIM_ITS ---
Subjective Subjective Date of Service: 06/24/23 Interval History: no new issues Physical Exam Vital Signs: Vital Signs: Last Vital Signs Temp 97.0 F 06/24/23 08:00 Pulse 57 06/24/23 08:00 Resp 18 06/24/23 08:00 BP 121/80 06/24/23 08:00 Pulse Ox 97 06/24/23 08:00 O2 Del Method Room Air 06/24/23 08:00 O2 Flow Rate 98 05/17/23 20:00 FiO2 30 04/23/23 11:00 BMI result Body Mass Index 21.0 Objective Data Active Medications Acetaminophen (Acetaminophen Oral Liquid 650 Mg/20.3 Ml Solution) 650 mg PO Q6H PRN PRN Reason: Fever Last Admin: 06/14/23 19:56 Dose: 650 mg Documented By: DAVID Aspirin (Aspirin 81 Mg Tab.Chew) 81 mg PO DAILY [facility] Last Admin: 06/24/23 08:57 Dose: 81 mg Documented By: OLIVIA Atorvastatin Calcium (Atorvastatin Calcium 40 Mg Tablet) 40 mg PO BEDTIME [facility] Last Admin: 06/23/23 21:24 Dose: 40 mg Documented By: ALEAH Baclofen (Baclofen 10 Mg Tablet) 10 mg PO TID [facility] Last Admin: 06/24/23 08:56 Dose: 10 mg Documented By: OLIVIA Docusate Sodium (Docusate Sodium 100 Mg Capsule) 200 mg PO BEDTIME [facility] Last Admin: 06/23/23 21:24 Dose: 200 mg Documented By: ALEAH Enoxaparin Sodium (Enoxaparin Sodium 40 Mg/0.4 Ml Syringe) 40 mg SUBCUT Q24H [facility] Last Admin: 06/23/23 14:06 Dose: Not Given Documented By: KATHRINE Non-Admin Reason: Patient Refused Folic Acid (Folic Acid 1 Mg Tablet) 1 mg PO DAILY [facility] Last Admin: 06/24/23 08:56 Dose: 1 mg Documented By: OLIVIA Ibuprofen (Ibuprofen 400 Mg Tablet) 400 mg PO Q8H PRN PRN Reason: Pain, Moderate(Pain Scale 4-6) Last Admin: 06/17/23 19:51 Dose: 400 mg Documented By: JADIEL Magnesium Hydroxide (Milk Of Magnesia 30 Ml Oral.Susp) 30 ml PO DAILY PRN PRN Reason: Constipation Multivitamins/Vitamin C (Multivitamin Tablet) 1 tab PO DAILY [facility] Last Admin: 06/24/23 08:56 Dose: 1 tab Documented By: OLIVIA Naloxone HCl (Naloxone Hcl 0.4 Mg/Ml Vial) 0.2 mg IVPUSH Q2M PRN PRN Reason: Excessive sedation or RR < 8 Nystatin (Nystatin Powder 15 Gm Bottle) 1 appl TOPICAL TID [facility]; Protocol Last Admin: 06/24/23 08:57 Dose: Not Given Documented By: OLIVIA Non-Admin Reason: Patient Refused Olanzapine (Olanzapine 10 Mg Tablet) 10 mg PO BEDTIME [facility] Last Admin: 06/23/23 21:24 Dose: 10 mg Documented By: ALEAH Sertraline HCl (Sertraline Hcl 50 Mg Tablet) 50 mg PO DAILY [facility] Last Admin: 06/24/23 08:56 Dose: 50 mg Documented By: OLIVIA Thiamine HCl (Thiamine Hcl 100 Mg Tablet) 100 mg PO DAILY [facility] Last Admin: 06/24/23 08:56 Dose: 100 mg Documented By: OLIVIA Labs 05/07/23 06:02 06/10/23 11:55 Assessment and Plan (1) Anoxic encephalopathy: Status: Acute Plan 28-year-old man with underlying history of schizophrenia, alcohol use, marijuana use?admitted on 04/08/2023 after he was noted to be unresponsive by his girlfriend for undetermined amount of time. He was transported by EMS to emergency room where he was intubated fo acute hypoxic respiratory failure. Further work up revealed aspiration and left pneumothorax.? Initial left mid axillary chest tube placed in emergency room with persistence of pneumothorax and questionable subdiaphragmatic placement.? Chest tube removed and replaced with left midclavicular in 3rd intercostal space with air evacuation and improvement in pneumothorax.? Patient also noted to have acute kidney injury and rhabdomyolysis and started on IV fluid hydration. He underwent right gluteal fasciotomy with significant improvement in his CPK and renal function.? However, remains persistently encephalopathic.? MRI on 04/10/2023 with bilateral cerebral anoxic related encephalopathy. ? Evaluated by neurology with prognosis consider to be guarded, but not catastrophic. Overall with slow neurologic improvement, With significant improvement on 04/23/2023. extubated 04/23/2023 and downgraded to the medical floor on 04/25. 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 Schizophrenia sertraline 50mg/olanzapine 10mg HS psych following as needed NSTEMI, resolved s/p heparin drip.... Noted to have soft blood pressures and heart rate therefore Lopressor discontinued,continue aspirin , statin and outpatient workup with Cardiology. Acute renal failure resolved. dvt prophylaxis - Lovenox once daily. Full Code DISPO plan for extensive rehab Has [facility] guardian, pending SNF placement. Requires continued hospitalization for safe disposition. encourage participation in PT Ambulate with staff, ready to discharge when bed available Time Spent With Patient Time: Total time managing care of this patient today ____ minutes. Quality Stroke Does the patient have a stroke diagnosis?: No VTE Prior VTE?: No VTE Risk Level:: Medical - moderate - high VTE Device Contraindication: N/A - Device Ordered VTE Drug Contraindication: N/A - Med Ordered
[2023-06-24 15:10] VITALS: BP 120/72; PULSE 62; RESP 18; TEMP 36.4; O2SAT 97
--- NOTE | 2023-06-24 15:13 | MHC.CM.PN ---
Patient has a bed at [facility]. [facility] has declined a single case agreement. The case has been escalated to the state, [place].
[2023-06-24 19:19] VITALS: BP 105/68; PULSE 60; RESP 16; TEMP 36.4; O2SAT 96
[2023-06-24] MEDS: Nystatin Powder 15 GM BOTTLE 1 APPL TOPICAL (21:02)
[2023-06-24] MEDS: Docusate Sodium 100 MG CAPSULE 200 MG PO (21:02)
[2023-06-24] MEDS: Atorvastatin Calcium 40 MG TABLET PO (21:03)
[2023-06-24] MEDS: OLANZapine 10 MG TABLET PO (21:03)
[2023-06-25 03:50] VITALS: BP 105/59; PULSE 52; RESP 19; TEMP 36.2; O2SAT 96
[2023-06-25 08:00] VITALS: BP 107/59; PULSE 58; RESP 15; TEMP 36.2; O2SAT 97
[2023-06-25] MEDS: Aspirin 81 MG TAB.CHEW PO (08:35)
[2023-06-25] MEDS: Multivitamin TABLET 1 TAB PO (08:35)
[2023-06-25] MEDS: Folic Acid 1 MG TABLET PO (08:35)
[2023-06-25] MEDS: Thiamine HCL 100 MG TABLET PO (08:35)
[2023-06-25] MEDS: Baclofen 10 MG TABLET PO ×3 (08:35→21:13)
[2023-06-25] MEDS: Sertraline HCL 50 MG TABLET PO (08:35)
--- NOTE | 2023-06-25 10:18 | HO.PM.IMPN ---
Subjective Subjective Date of Service: 06/25/23 Interval History: no new issues Physical Exam Vital Signs: Vital Signs: Last Vital Signs Temp 97.2 F 06/25/23 08:00 Pulse 58 06/25/23 08:00 Resp 15 06/25/23 08:00 BP 107/59 L 06/25/23 08:00 Pulse Ox 97 06/25/23 08:00 O2 Del Method Room Air 06/25/23 08:00 O2 Flow Rate 98 05/17/23 20:00 FiO2 30 04/23/23 11:00 BMI result Body Mass Index 21.0 Const: Other: Constitutional : Awake, alert, not in distress Neck : Normal inspection, Supple Cardiovascular : RRR, no JVP, no lower extremity edema Respiratory : good bilateral air entry,? no crackles, wheezes or rhonchi Gastrointestinal:? soft,? Normal bowel sounds, Non tender Skin : Warm, Dry extremities no edema Objective Data Active Medications Acetaminophen (Acetaminophen Oral Liquid 650 Mg/20.3 Ml Solution) 650 mg PO Q6H PRN PRN Reason: Fever Last Admin: 06/14/23 19:56 Dose: 650 mg Documented By: DAVID Aspirin (Aspirin 81 Mg Tab.Chew) 81 mg PO DAILY [facility] Last Admin: 06/25/23 08:35 Dose: 81 mg Documented By: OLIVIA Atorvastatin Calcium (Atorvastatin Calcium 40 Mg Tablet) 40 mg PO BEDTIME [facility] Last Admin: 06/24/23 21:03 Dose: 40 mg Documented By: LO Baclofen (Baclofen 10 Mg Tablet) 10 mg PO TID [facility] Last Admin: 06/25/23 08:35 Dose: 10 mg Documented By: OLIVIA Docusate Sodium (Docusate Sodium 100 Mg Capsule) 200 mg PO BEDTIME [facility] Last Admin: 06/24/23 21:02 Dose: 200 mg Documented By: LO Enoxaparin Sodium (Enoxaparin Sodium 40 Mg/0.4 Ml Syringe) 40 mg SUBCUT Q24H [facility] Last Admin: 06/24/23 14:40 Dose: Not Given Documented By: OLIVIA Non-Admin Reason: Patient Refused Folic Acid (Folic Acid 1 Mg Tablet) 1 mg PO DAILY [facility] Last Admin: 06/25/23 08:35 Dose: 1 mg Documented By: OLIVIA Ibuprofen (Ibuprofen 400 Mg Tablet) 400 mg PO Q8H PRN PRN Reason: Pain, Moderate(Pain Scale 4-6) Last Admin: 06/17/23 19:51 Dose: 400 mg Documented By: JADIEL Magnesium Hydroxide (Milk Of Magnesia 30 Ml Oral.Susp) 30 ml PO DAILY PRN PRN Reason: Constipation Multivitamins/Vitamin C (Multivitamin Tablet) 1 tab PO DAILY [facility] Last Admin: 06/25/23 08:35 Dose: 1 tab Documented By: OLIVIA Naloxone HCl (Naloxone Hcl 0.4 Mg/Ml Vial) 0.2 mg IVPUSH Q2M PRN PRN Reason: Excessive sedation or RR < 8 Nystatin (Nystatin Powder 15 Gm Bottle) 1 appl TOPICAL TID [facility]; Protocol Last Admin: 06/25/23 08:36 Dose: Not Given Documented By: OLIVIA Non-Admin Reason: Patient Refused Olanzapine (Olanzapine 10 Mg Tablet) 10 mg PO BEDTIME [facility] Last Admin: 06/24/23 21:03 Dose: 10 mg Documented By: LO Sertraline HCl (Sertraline Hcl 50 Mg Tablet) 50 mg PO DAILY [facility] Last Admin: 06/25/23 08:35 Dose: 50 mg Documented By: OLIVIA Thiamine HCl (Thiamine Hcl 100 Mg Tablet) 100 mg PO DAILY [facility] Last Admin: 06/25/23 08:35 Dose: 100 mg Documented By: OLIVIA Labs 05/07/23 06:02 06/10/23 11:55 Assessment and Plan (1) Anoxic encephalopathy: Status: Acute Plan 28-year-old man with underlying history of schizophrenia, alcohol use, marijuana use?admitted on 04/08/2023 after he was noted to be unresponsive by his girlfriend for undetermined amount of time. He was transported by EMS to emergency room where he was intubated fo acute hypoxic respiratory failure. Further work up revealed aspiration and left pneumothorax.? Initial left mid axillary chest tube placed in emergency room with persistence of pneumothorax and questionable subdiaphragmatic placement.? Chest tube removed and replaced with left midclavicular in 3rd intercostal space with air evacuation and improvement in pneumothorax.? Patient also noted to have acute kidney injury and rhabdomyolysis and started on IV fluid hydration. He underwent right gluteal fasciotomy with significant improvement in his CPK and renal function.? However, remains persistently encephalopathic.? MRI on 04/10/2023 with bilateral cerebral anoxic related encephalopathy. ? Evaluated by neurology with prognosis consider to be guarded, but not catastrophic. Overall with slow neurologic improvement, With significant improvement on 04/23/2023. extubated 04/23/2023 and downgraded to the medical floor on 04/25. 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 Schizophrenia sertraline 50mg/olanzapine 10mg HS psych following as needed NSTEMI, resolved s/p heparin drip.... Noted to have soft blood pressures and heart rate therefore Lopressor discontinued,continue aspirin , statin and outpatient workup with Cardiology. Acute renal failure resolved. dvt prophylaxis - Lovenox once daily. Full Code DISPO plan for extensive rehab Has [facility] guardian, pending SNF placement. Requires continued hospitalization for safe disposition. encourage participation in PT Discharge pending verification of payer source by SNF Time Spent With Patient Time: Total time managing care of this patient today ____ minutes. Quality Stroke Does the patient have a stroke diagnosis?: No VTE Prior VTE?: No VTE Risk Level:: Medical - moderate - high VTE Device Contraindication: N/A - Device Ordered VTE Drug Contraindication: N/A - Med Ordered
--- NOTE | 2023-06-25 11:04 | MHC.CM.PN ---
A financial consult has been sent today. [facility] is contracted with [facility]. [facility] is requesting a single case; which has been denied. Financial rescue worker will change the insurance to [facility] standard for placement to [facility].
--- NOTE | 2023-06-25 11:51 | MHC.SL.SOA ---
Referring Provider: Chaim Mccullough MD Reason for Referral: Post-extubation Date of Plan of Treatment:04/24/23 Onset of Symptoms/Illness:04/23/23 Date Treatment Started:04/24/23 Medical Diagnosis:Anoxic encephalopathy, polysubstance abuse, schizophrenia Primary Speech Language Diagnosis:R13.12 Oropharyngeal Phase Dysphagia Secondary Speech Language Diagnosis: Number of Authorized Visits Remaining: Authorization End Date: Reason for Visit:[id number] Individual Treatment Other: Subjective:Lon is a 28 year old male who has been seen by speech therapy during inpatient stay at [facility] since early April 2023 for dysphagia, cognition, and language. In regards to education level, Lon reports that he finished sophomore year of high school then dropped out jerome year when he was 18 years old. Lon completed the Repeatable Battery for the Assessment of Neuropsychological Status (RBANS) Update - Record Form A. Cognitive linguistic testing revealed impairments in the areas of immediate memory (extremely low), language (borderline), and attention skills (extremely low). Objective: Lon was awake and alert and sitting in chair by his bed, looking at his phone at the onset. He showed interest in activities today and cooperated well with everything presented, providing timely and accurate responses. Assessment:1.1: Lon was presented with a series of five connected sentences that presented a problem in narrative form. He provided a likely solution for the problem with a verbal response, demonstrating 8/8 accuracy. 2.1: Lon played/participated in a game of Spot it requiring visual processing and recall. Lon was able to process a sequence of visual images and spot a similarity regardless of size of position with 100% accuracy. 3.1: Given general information questions about [place] and history, Lon responded with 100% accuracy. Lon added additional information about a current event (fires in [facility]) after being asked one question and commented on a family member having visited [place]. Lon matched written words to images with 100% accuracy today. Notes: Acute rehabilitation for speech therapy in the area of cognition is recommended as next level of care. Goals in the area of immediate memory and attention are recommended. Further testing in delayed memory is recommended. Plan: Goal # : Lon will listen to short paragraph (3-5 sentences) and answer comprehension questions with 80% accuracy (immediate recall) when provided with minimal assistance and no more than one repetition. Status of Goal: New Goal Goal # : Lon will recall independently 2-3 memory strategies with 100% accuracy. Status of Goal: New Goal Goal # : Lon will participate in formal and informal assessment tasks of cognitive function. Status of Goal: New Goal Goal # : Status of Goal: Goal Continued Seen by: Graduate/Clinical Fellow: No Supervisory Statement: f_Reg Query Last Value , MHC.AU.SIGNATUR Speech Language Pathologist: Malou Jean M.A., CCC-POWER SYSTEM OPERATOR
[2023-06-25 16:00] VITALS: BP 122/68; PULSE 68; RESP 20; TEMP 36.3; O2SAT 97
[2023-06-25 19:47] VITALS: BP 114/74; PULSE 55; RESP 20; TEMP 36.1; O2SAT 97
[2023-06-25] MEDS: Docusate Sodium 100 MG CAPSULE 200 MG PO (21:12)
[2023-06-25] MEDS: OLANZapine 10 MG TABLET PO (21:13)
[2023-06-25] MEDS: Atorvastatin Calcium 40 MG TABLET PO (21:13)
[2023-06-25] MEDS: Nystatin Powder 15 GM BOTTLE 1 APPL TOPICAL (21:13)
[2023-06-26 03:36] VITALS: BP 110/57; PULSE 71; RESP 18; TEMP 36.2; O2SAT 96
[2023-06-26 07:53] VITALS: BP 98/57; PULSE 84; RESP 16; TEMP 36; O2SAT 97
--- NOTE | 2023-06-26 08:33 | HO.PM.IMPN ---
Subjective Subjective Date of Service: 06/26/23 Interval History: no new issues identified Physical Exam Vital Signs: Vital Signs: Last Vital Signs Temp 96.8 F 06/26/23 07:53 Pulse 84 06/26/23 07:53 Resp 16 06/26/23 07:53 BP 98/57 L 06/26/23 07:53 Pulse Ox 97 06/26/23 07:53 O2 Del Method Room Air 06/26/23 07:53 O2 Flow Rate 98 05/17/23 20:00 FiO2 30 04/23/23 11:00 BMI result Body Mass Index 21.0 Const: Other: Constitutional : Awake, alert, not in distress Neck : Normal inspection, Supple Cardiovascular : RRR, no JVP, no lower extremity edema Respiratory : good bilateral air entry,? no crackles, wheezes or rhonchi Gastrointestinal:? soft,? Normal bowel sounds, Non tender Skin : Warm, Dry extremities no edema Objective Data Active Medications Acetaminophen (Acetaminophen Oral Liquid 650 Mg/20.3 Ml Solution) 650 mg PO Q6H PRN PRN Reason: Fever Last Admin: 06/14/23 19:56 Dose: 650 mg Documented By: DAVID Aspirin (Aspirin 81 Mg Tab.Chew) 81 mg PO DAILY [facility] Last Admin: 06/25/23 08:35 Dose: 81 mg Documented By: OLIVIA Atorvastatin Calcium (Atorvastatin Calcium 40 Mg Tablet) 40 mg PO BEDTIME [facility] Last Admin: 06/25/23 21:13 Dose: 40 mg Documented By: FRANK Baclofen (Baclofen 10 Mg Tablet) 10 mg PO TID [facility] Last Admin: 06/25/23 21:13 Dose: 10 mg Documented By: FRANK Docusate Sodium (Docusate Sodium 100 Mg Capsule) 200 mg PO BEDTIME [facility] Last Admin: 06/25/23 21:12 Dose: 200 mg Documented By: FRANK Enoxaparin Sodium (Enoxaparin Sodium 40 Mg/0.4 Ml Syringe) 40 mg SUBCUT Q24H [facility] Last Admin: 06/25/23 14:43 Dose: Not Given Documented By: OLIVIA Non-Admin Reason: Patient Refused Folic Acid (Folic Acid 1 Mg Tablet) 1 mg PO DAILY [facility] Last Admin: 06/25/23 08:35 Dose: 1 mg Documented By: OLIVIA Ibuprofen (Ibuprofen 400 Mg Tablet) 400 mg PO Q8H PRN PRN Reason: Pain, Moderate(Pain Scale 4-6) Last Admin: 06/17/23 19:51 Dose: 400 mg Documented By: JADIEL Magnesium Hydroxide (Milk Of Magnesia 30 Ml Oral.Susp) 30 ml PO DAILY PRN PRN Reason: Constipation Multivitamins/Vitamin C (Multivitamin Tablet) 1 tab PO DAILY [facility] Last Admin: 06/25/23 08:35 Dose: 1 tab Documented By: OLIVIA Naloxone HCl (Naloxone Hcl 0.4 Mg/Ml Vial) 0.2 mg IVPUSH Q2M PRN PRN Reason: Excessive sedation or RR < 8 Nystatin (Nystatin Powder 15 Gm Bottle) 1 appl TOPICAL TID [facility]; Protocol Last Admin: 06/25/23 21:13 Dose: 1 appl Documented By: FRANK Olanzapine (Olanzapine 10 Mg Tablet) 10 mg PO BEDTIME [facility] Last Admin: 06/25/23 21:13 Dose: 10 mg Documented By: FRANK Sertraline HCl (Sertraline Hcl 50 Mg Tablet) 50 mg PO DAILY [facility] Last Admin: 06/25/23 08:35 Dose: 50 mg Documented By: OLIVIA Thiamine HCl (Thiamine Hcl 100 Mg Tablet) 100 mg PO DAILY [facility] Last Admin: 06/25/23 08:35 Dose: 100 mg Documented By: OLIVIA Labs 05/07/23 06:02 06/10/23 11:55 Assessment and Plan (1) Anoxic encephalopathy: Status: Acute Plan 28-year-old man with underlying history of schizophrenia, alcohol use, marijuana use?admitted on 04/08/2023 after he was noted to be unresponsive by his girlfriend for undetermined amount of time. He was transported by EMS to emergency room where he was intubated fo acute hypoxic respiratory failure. Further work up revealed aspiration and left pneumothorax.? Initial left mid axillary chest tube placed in emergency room with persistence of pneumothorax and questionable subdiaphragmatic placement.? Chest tube removed and replaced with left midclavicular in 3rd intercostal space with air evacuation and improvement in pneumothorax.? Patient also noted to have acute kidney injury and rhabdomyolysis and started on IV fluid hydration. He underwent right gluteal fasciotomy with significant improvement in his CPK and renal function.? However, remains persistently encephalopathic.? MRI on 04/10/2023 with bilateral cerebral anoxic related encephalopathy. ? Evaluated by neurology with prognosis consider to be guarded, but not catastrophic. Overall with slow neurologic improvement, With significant improvement on 04/23/2023. extubated 04/23/2023 and downgraded to the medical floor on 04/25. has since been awaiting placement, with ongoing improvement in mental status, improved speech, awareness, motor functions no new issues, continue current, and discharge once bed available Anoxic brain injury secondary to aspiration pneumonia related to polysubstance overdose with anoxic encephalopathy (ANI) continues to improve , continue participatiion in PT and OT ACute rehab when available Baclofen as muscle relaxant, Motrin prn for pain right knee discomfort improved after knee buckled on 06/12. Schizophrenia sertraline 50mg/olanzapine 10mg HS psych following as needed NSTEMI, resolved s/p heparin drip.... Noted to have soft blood pressures and heart rate therefore Lopressor discontinued,continue aspirin , statin and outpatient workup with Cardiology. Acute renal failure resolved. dvt prophylaxis - Lovenox once daily. Full Code DISPO plan for extensive rehab Has [facility] guardian, pending SNF placement. Requires continued hospitalization for safe disposition. encourage participation in PT Discharge pending verification of payer source by SNF Time Spent With Patient Time: Total time managing care of this patient today ____ minutes. Quality Stroke Does the patient have a stroke diagnosis?: No VTE Prior VTE?: No VTE Risk Level:: Medical - moderate - high VTE Device Contraindication: N/A - Device Ordered VTE Drug Contraindication: N/A - Med Ordered
[2023-06-26] MEDS: Aspirin 81 MG TAB.CHEW PO (09:55)
[2023-06-26] MEDS: Multivitamin TABLET 1 TAB PO (10:31)
[2023-06-26] MEDS: Folic Acid 1 MG TABLET PO (10:31)
[2023-06-26] MEDS: Sertraline HCL 50 MG TABLET PO (10:31)
[2023-06-26] MEDS: Baclofen 10 MG TABLET PO ×3 (10:31→20:24)
[2023-06-26] MEDS: Thiamine HCL 100 MG TABLET PO (10:33)
--- NOTE | 2023-06-26 13:51 | MHC.SL.SOA ---
Referring Provider: Chaim Mccullough MD Reason for Referral: Post-extubation Date of Plan of Treatment:04/24/23 Onset of Symptoms/Illness:04/23/23 Date Treatment Started:04/24/23 Medical Diagnosis:Anoxic encephalopathy, polysubstance abuse, schizophrenia Primary Speech Language Diagnosis:R13.12 Oropharyngeal Phase Dysphagia Reason for Visit:[id number] Individual Treatment Subjective:Lon is a 28 year old male who has been seen by speech therapy during inpatient stay at [facility] since early April 2023 for dysphagia, cognition, and language. In regards to education level, Lon reports that he finished sophomore year of high school then dropped out jerome year when he was 18 years old. Lon completed the Repeatable Battery for the Assessment of Neuropsychological Status (RBANS) Update - Record Form A. Cognitive linguistic testing revealed impairments in the areas of immediate memory (extremely low), language (borderline), and attention skills (extremely low). Objective: Lon was awake and alert and sitting up in bed. Lon was participatory in speech therapy at bedside. Activities today targeted immediate recall. Assessment:Lon was presented with mock checks. Information on the checks was read aloud for him. Lon was instructed to pay particular attention to whom the check was written to and the check number. Lon recalled this information with 88% accuracy when provided with 1-2 repetitions per his request. DOUGHNUT ICER MACHINE reviewed memory strategies with Lon: in particular, verbal rehearsal and visualization. Lon reported he tried to listen and repeat it. Lon shared the crossword puzzles he was working on with OT, stating that he didn't mind it, but it wasn't easy because he had to remember childish sh like '[employer]itsy Spider.' He shared that while crossword puzzles were never [his] thing, he will try them when he is bored and tends to prefer number games like [place]. Lon shared that he is visited by his cousin and sisters, and that [place]. He also reflected on his experience in the hospital, stating that didn't' remember a lot of the time he spent in the ICU. He is looking forward to being discharged from the hospital. Notes: Acute rehabilitation for speech therapy in the area of cognition is recommended as next level of care (rehab). Goals in the area of immediate memory and attention are recommended. Further testing in delayed memory is recommended. Plan: Goal # : Lon will listen to short paragraph (3-5 sentences) and answer comprehension questions with 80% accuracy (immediate recall) when provided with minimal assistance and no more than one repetition. Status of Goal: New Goal Goal # : Lon will recall independently 2-3 memory strategies with 100% accuracy. Status of Goal: New Goal Goal # : Lon will participate in formal and informal assessment tasks of cognitive function. Status of Goal: New Goal Goal # : Status of Goal: Goal Continued Seen by: Graduate/Clinical Fellow: No Supervisory Statement: f_Reg Query Last Value , MHC.AU.SIGNATUR Speech Language Pathologist: Latha Conde M.A., CCC-DOUGHNUT ICER MACHINE
[2023-06-26 14:56] VITALS: BP 106/72; PULSE 84; RESP 18; TEMP 36.2; O2SAT 96
[2023-06-26] MEDS: Nystatin Powder 15 GM BOTTLE 1 APPL TOPICAL ×2 (14:57→20:29)
--- NOTE | 2023-06-26 15:57 | MHC.CM.PN ---
per rounds pt is ready for dc bed search continues care one is following guardian will be in mon to see pt
[2023-06-26 20:00] VITALS: BP 125/64; PULSE 78; RESP 16; TEMP 36.5; O2SAT 96
[2023-06-26] MEDS: Atorvastatin Calcium 40 MG TABLET PO (20:24)
[2023-06-26] MEDS: OLANZapine 10 MG TABLET PO (20:24)
[2023-06-26] MEDS: Docusate Sodium 100 MG CAPSULE 200 MG PO (20:24)
[2023-06-27 03:14] VITALS: BP 100/55; PULSE 52; RESP 18; TEMP 36.1; O2SAT 96
--- NOTE | 2023-06-27 07:57 | HO.PM.IMPN ---
Subjective Subjective Date of Service: 06/27/23 Interval History: doing fine, no issues Physical Exam Vital Signs: Vital Signs: Last Vital Signs Temp 96.9 F 06/27/23 03:14 Pulse 52 06/27/23 03:14 Resp 18 06/27/23 03:14 BP 100/55 L 06/27/23 03:14 Pulse Ox 96 06/27/23 03:14 O2 Del Method Room Air 06/27/23 03:14 O2 Flow Rate 98 05/17/23 20:00 FiO2 30 04/23/23 11:00 BMI result Body Mass Index 21.0 Const: Other: Constitutional : Awake, alert, not in distress Neck : Normal inspection, Supple Cardiovascular : RRR, no JVP, no lower extremity edema Respiratory : good bilateral air entry,? no crackles, wheezes or rhonchi Gastrointestinal:? soft,? Normal bowel sounds, Non tender Skin : Warm, Dry extremities no edema Objective Data Active Medications Acetaminophen (Acetaminophen Oral Liquid 650 Mg/20.3 Ml Solution) 650 mg PO Q6H PRN PRN Reason: Fever Last Admin: 06/14/23 19:56 Dose: 650 mg Documented By: DAVID Aspirin (Aspirin 81 Mg Tab.Chew) 81 mg PO DAILY [facility] Last Admin: 06/26/23 09:55 Dose: 81 mg Documented By: XUAN Atorvastatin Calcium (Atorvastatin Calcium 40 Mg Tablet) 40 mg PO BEDTIME [facility] Last Admin: 06/26/23 20:24 Dose: 40 mg Documented By: LO Baclofen (Baclofen 10 Mg Tablet) 10 mg PO TID [facility] Last Admin: 06/26/23 20:24 Dose: 10 mg Documented By: LO Docusate Sodium (Docusate Sodium 100 Mg Capsule) 200 mg PO BEDTIME [facility] Last Admin: 06/26/23 20:24 Dose: 200 mg Documented By: LO Enoxaparin Sodium (Enoxaparin Sodium 40 Mg/0.4 Ml Syringe) 40 mg SUBCUT Q24H [facility] Last Admin: 06/26/23 14:30 Dose: Not Given Documented By: XUAN Non-Admin Reason: Patient Refused Folic Acid (Folic Acid 1 Mg Tablet) 1 mg PO DAILY [facility] Last Admin: 06/26/23 10:31 Dose: 1 mg Documented By: XUAN Ibuprofen (Ibuprofen 400 Mg Tablet) 400 mg PO Q8H PRN PRN Reason: Pain, Moderate(Pain Scale 4-6) Last Admin: 06/17/23 19:51 Dose: 400 mg Documented By: JADIEL Magnesium Hydroxide (Milk Of Magnesia 30 Ml Oral.Susp) 30 ml PO DAILY PRN PRN Reason: Constipation Multivitamins/Vitamin C (Multivitamin Tablet) 1 tab PO DAILY [facility] Last Admin: 06/26/23 10:31 Dose: 1 tab Documented By: XUAN Naloxone HCl (Naloxone Hcl 0.4 Mg/Ml Vial) 0.2 mg IVPUSH Q2M PRN PRN Reason: Excessive sedation or RR < 8 Nystatin (Nystatin Powder 15 Gm Bottle) 1 appl TOPICAL TID [facility]; Protocol Last Admin: 06/26/23 20:29 Dose: 1 appl Documented By: LO Olanzapine (Olanzapine 10 Mg Tablet) 10 mg PO BEDTIME [facility] Last Admin: 06/26/23 20:24 Dose: 10 mg Documented By: LO Sertraline HCl (Sertraline Hcl 50 Mg Tablet) 50 mg PO DAILY [facility] Last Admin: 06/26/23 10:31 Dose: 50 mg Documented By: XUAN Thiamine HCl (Thiamine Hcl 100 Mg Tablet) 100 mg PO DAILY [facility] Last Admin: 06/26/23 10:33 Dose: 100 mg Documented By: XUAN Labs 05/07/23 06:02 06/10/23 11:55 Assessment and Plan (1) Anoxic encephalopathy: Status: Acute Plan 28-year-old man with underlying history of schizophrenia, alcohol use, marijuana use?admitted on 04/08/2023 after he was noted to be unresponsive by his girlfriend for undetermined amount of time. He was transported by EMS to emergency room where he was intubated fo acute hypoxic respiratory failure. Further work up revealed aspiration and left pneumothorax.? Initial left mid axillary chest tube placed in emergency room with persistence of pneumothorax and questionable subdiaphragmatic placement.? Chest tube removed and replaced with left midclavicular in 3rd intercostal space with air evacuation and improvement in pneumothorax.? Patient also noted to have acute kidney injury and rhabdomyolysis and started on IV fluid hydration. He underwent right gluteal fasciotomy with significant improvement in his CPK and renal function.? However, remains persistently encephalopathic.? MRI on 04/10/2023 with bilateral cerebral anoxic related encephalopathy. ? Evaluated by neurology with prognosis consider to be guarded, but not catastrophic. Overall with slow neurologic improvement, With significant improvement on 04/23/2023. extubated 04/23/2023 and downgraded to the medical floor on 04/25. has since been awaiting placement, with ongoing improvement in mental status, improved speech, awareness, motor functions no new issues, continue current care, and discharge once bed available Anoxic brain injury secondary to aspiration pneumonia related to polysubstance overdose with anoxic encephalopathy (ANI) continues to improve , continue participatiion in PT and OT ACute rehab when available Baclofen as muscle relaxant, Motrin prn for pain right knee discomfort improved after knee buckled on 06/12. Schizophrenia sertraline 50mg/olanzapine 10mg HS psych following as needed NSTEMI, resolved s/p heparin drip.... Noted to have soft blood pressures and heart rate therefore Lopressor discontinued,continue aspirin , statin and outpatient workup with Cardiology. Acute renal failure resolved. dvt prophylaxis - Lovenox once daily. Full Code DISPO plan for extensive rehab Has [facility] guardian, pending SNF placement. Requires continued hospitalization for safe disposition. encourage participation in PT Discharge pending verification of payer source by SNF Time Spent With Patient Time: Total time managing care of this patient today ____ minutes. Quality Stroke Does the patient have a stroke diagnosis?: No VTE Prior VTE?: No VTE Risk Level:: Medical - moderate - high VTE Device Contraindication: N/A - Device Ordered VTE Drug Contraindication: N/A - Med Ordered
[2023-06-27 08:00] VITALS: BP 115/69; PULSE 62; RESP 18; TEMP 36.3; O2SAT 98
[2023-06-27] MEDS: Folic Acid 1 MG TABLET PO (09:47)
[2023-06-27] MEDS: Multivitamin TABLET 1 TAB PO (09:48)
[2023-06-27] MEDS: Aspirin 81 MG TAB.CHEW PO (09:48)
[2023-06-27] MEDS: Sertraline HCL 50 MG TABLET PO (09:48)
[2023-06-27] MEDS: Thiamine HCL 100 MG TABLET PO (09:48)
[2023-06-27] MEDS: Baclofen 10 MG TABLET PO ×3 (09:48→20:12)
[2023-06-27] MEDS: Nystatin Powder 15 GM BOTTLE 1 APPL TOPICAL ×2 (14:38→20:12)
[2023-06-27] MEDS: Ibuprofen 400 MG TABLET PO (14:45)
[2023-06-27 15:44] VITALS: BP 115/64; PULSE 64; RESP 18; TEMP 36.7; O2SAT 99
[2023-06-27 19:58] VITALS: BP 106/59; PULSE 61; RESP 18; TEMP 36.7; O2SAT 97
[2023-06-27] MEDS: Atorvastatin Calcium 40 MG TABLET PO (20:12)
[2023-06-27] MEDS: Docusate Sodium 100 MG CAPSULE 200 MG PO (20:12)
[2023-06-27] MEDS: OLANZapine 10 MG TABLET PO (20:12)
[2023-06-28 04:00] VITALS: BP 110/65; PULSE 59; RESP 18; TEMP 36.7; O2SAT 97
[2023-06-28 08:00] VITALS: BP 113/73; PULSE 68; RESP 18; TEMP 36.4; O2SAT 98
[2023-06-28] MEDS: Aspirin 81 MG TAB.CHEW PO (09:23)
[2023-06-28] MEDS: Sertraline HCL 50 MG TABLET PO (09:23)
[2023-06-28] MEDS: Ibuprofen 400 MG TABLET PO (09:23)
[2023-06-28] MEDS: Baclofen 10 MG TABLET PO ×3 (09:23→20:17)
[2023-06-28] MEDS: Multivitamin TABLET 1 TAB PO (09:23)
[2023-06-28] MEDS: Folic Acid 1 MG TABLET PO (09:24)
[2023-06-28] MEDS: Thiamine HCL 100 MG TABLET PO (09:24)
[2023-06-28] MEDS: Nystatin Powder 15 GM BOTTLE 1 APPL TOPICAL ×3 (09:25→20:18)
--- NOTE | 2023-06-28 15:19 | HO.PM.IMPN ---
Subjective Subjective Date of Service: 06/28/23 Interval History: Follow-up for patient with anoxic related encephalopathy No acute events overnight Patient states he is doing well Continues to complain of his right knee still being ?stuck? Review of Systems Right knee discomfort Patient has no other acute medical complaints Physical Exam Vital Signs: Vital Signs: Last Vital Signs Temp 97.5 F 06/28/23 08:00 Pulse 68 06/28/23 08:00 Resp 18 06/28/23 08:00 BP 113/73 06/28/23 08:00 Pulse Ox 98 06/28/23 08:00 O2 Del Method Room Air 06/28/23 08:00 O2 Flow Rate 98 05/17/23 20:00 FiO2 30 04/23/23 11:00 BMI result Body Mass Index 21.0 General: AOx3, no acute distress Resp: CTA bilaterally CVS: S1, S2, RRR GI: +BS, NT, no distention Skin: No rash Neuro: Cranial nerves II-XII grossly intact bilaterally. Motor grossly intact bilaterally Extremities: No edema Psych: Appropriate affect Objective Data Active Medications Acetaminophen (Acetaminophen Oral Liquid 650 Mg/20.3 Ml Solution) 650 mg PO Q6H PRN PRN Reason: Fever Last Admin: 06/14/23 19:56 Dose: 650 mg Documented By: DAVID Aspirin (Aspirin 81 Mg Tab.Chew) 81 mg PO DAILY [facility] Last Admin: 06/28/23 09:23 Dose: 81 mg Documented By: KANU Atorvastatin Calcium (Atorvastatin Calcium 40 Mg Tablet) 40 mg PO BEDTIME [facility] Last Admin: 06/27/23 20:12 Dose: 40 mg Documented By: ANGEL Baclofen (Baclofen 10 Mg Tablet) 10 mg PO TID [facility] Last Admin: 06/28/23 15:15 Dose: 10 mg Documented By: KANU Docusate Sodium (Docusate Sodium 100 Mg Capsule) 200 mg PO BEDTIME [facility] Last Admin: 06/27/23 20:12 Dose: 200 mg Documented By: ANGEL Enoxaparin Sodium (Enoxaparin Sodium 40 Mg/0.4 Ml Syringe) 40 mg SUBCUT Q24H [facility] Last Admin: 06/28/23 15:16 Dose: Not Given Documented By: KANU Non-Admin Reason: Physician Approved Folic Acid (Folic Acid 1 Mg Tablet) 1 mg PO DAILY [facility] Last Admin: 06/28/23 09:24 Dose: 1 mg Documented By: KANU Ibuprofen (Ibuprofen 400 Mg Tablet) 400 mg PO Q8H PRN PRN Reason: Pain, Moderate(Pain Scale 4-6) Last Admin: 06/28/23 09:23 Dose: 400 mg Documented By: KANU Magnesium Hydroxide (Milk Of Magnesia 30 Ml Oral.Susp) 30 ml PO DAILY PRN PRN Reason: Constipation Multivitamins/Vitamin C (Multivitamin Tablet) 1 tab PO DAILY [facility] Last Admin: 06/28/23 09:23 Dose: 1 tab Documented By: KANU Naloxone HCl (Naloxone Hcl 0.4 Mg/Ml Vial) 0.2 mg IVPUSH Q2M PRN PRN Reason: Excessive sedation or RR < 8 Nystatin (Nystatin Powder 15 Gm Bottle) 1 appl TOPICAL TID [facility]; Protocol Last Admin: 06/28/23 15:16 Dose: 1 appl Documented By: KANU Olanzapine (Olanzapine 10 Mg Tablet) 10 mg PO BEDTIME [facility] Last Admin: 06/27/23 20:12 Dose: 10 mg Documented By: ANGEL Sertraline HCl (Sertraline Hcl 50 Mg Tablet) 50 mg PO DAILY [facility] Last Admin: 06/28/23 09:23 Dose: 50 mg Documented By: KANU Thiamine HCl (Thiamine Hcl 100 Mg Tablet) 100 mg PO DAILY [facility] Last Admin: 06/28/23 09:24 Dose: 100 mg Documented By: KANU Labs 05/07/23 06:02 06/10/23 11:55 Assessment and Plan (1) Anoxic encephalopathy: Status: Acute Plan 28-year-old man with underlying history of schizophrenia, alcohol use, marijuana use?admitted on 04/08/2023 after he was noted to be unresponsive by his girlfriend for undetermined amount of time. He was transported by EMS to emergency room where he was intubated fo acute hypoxic respiratory failure. Further work up revealed? aspiration and left pneumothorax.? Initial left mid axillary chest tube placed in emergency room with persistence of pneumothorax and questionable subdiaphragmatic placement.? Chest tube removed and replaced with left midclavicular in 3rd intercostal space with air evacuation and improvement in pneumothorax.? Patient also noted to have acute kidney injury and rhabdomyolysis and started on IV fluid hydration. He underwent right gluteal fasciotomy with significant improvement in his CPK and renal function.? However, remains persistently encephalopathic.? MRI on 04/10/2023 with bilateral cerebral anoxic related encephalopathy. ? Evaluated by neurology with prognosis consider to be guarded, but not catastrophic. Overall with slow neurologic improvement, With significant improvement on 04/23/2023. extubated 04/23/2023 and downgraded to the medical floor on 04/25. 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 (ANI) continues to improve ,? continue participatiion in? PT and OT ACute rehab when available Baclofen as muscle relaxant, Motrin prn for pain Right knee discomfort improved after knee buckled on 06/12. Schizophrenia Sertraline 50mg/olanzapine 10mg HS Psych following as needed NSTEMI, resolved s/p heparin drip.... ? Noted to have soft blood pressures and heart rate? therefore Lopressor discontinued,continue aspirin , statin and outpatient workup with Cardiology. Acute renal failure Resolved. DVT prophylaxis - Lovenox once daily. Full Code DISPO plan for extensive rehab Has [facility] guardian, pending SNF placement. Requires continued hospitalization for safe disposition. encourage participation in PT Discharge pending verification of payer source by SNF Time Spent With Patient Time: Total time managing care of this patient today ____ minutes. Quality Stroke Does the patient have a stroke diagnosis?: No VTE Prior VTE?: No VTE Risk Level:: Medical - moderate - high VTE Device Contraindication: N/A - Device Ordered VTE Drug Contraindication: N/A - Med Ordered
[2023-06-28 15:47] VITALS: BP 105/61; PULSE 60; RESP 19; TEMP 36.8; O2SAT 98
[2023-06-28 19:35] VITALS: BP 114/69; PULSE 66; RESP 18; TEMP 36.2; O2SAT 98
[2023-06-28] MEDS: Atorvastatin Calcium 40 MG TABLET PO (20:16)
[2023-06-28] MEDS: Docusate Sodium 100 MG CAPSULE 200 MG PO (20:17)
[2023-06-28] MEDS: OLANZapine 10 MG TABLET PO (20:17)
[2023-06-29 00:57] VITALS: BP 104/54; PULSE 53; RESP 16; TEMP 36.9; O2SAT 95
[2023-06-29 07:35] VITALS: BP 109/63; PULSE 53; RESP 16; TEMP 36.7; O2SAT 98
[2023-06-29] MEDS: Multivitamin TABLET 1 TAB PO (09:44)
[2023-06-29] MEDS: Baclofen 10 MG TABLET PO ×3 (09:44→20:16)
[2023-06-29] MEDS: Thiamine HCL 100 MG TABLET PO (09:45)
[2023-06-29] MEDS: Aspirin 81 MG TAB.CHEW PO (09:45)
[2023-06-29] MEDS: Sertraline HCL 50 MG TABLET PO (09:45)
[2023-06-29] MEDS: Folic Acid 1 MG TABLET PO (09:45)
--- NOTE | 2023-06-29 10:58 | PM.DS ---
DS: Providers Provider Date of Service: 06/29/23 Date of admission: 04/08/23 10:37 Primary care physician: Unknown Physician Consults: 04/08/23 15:43 Consult to General Surgery Routine Consulting Provider: [facility] Reason for consultation: Evaluate for compartment syndrome of the right gluteus with rising CPK Has provider been notified: No 04/11/23 09:51 Consult to Neurology Routine Consulting Provider: Neurology Susana [facility] Reason for consultation: ?anoxic encephalopathy Has provider been notified: No 04/16/23 06:35 Consult to Wound Care Stat Consulting Provider: Marisol López Reason for consultation: Skin Integrity concerns Has provider been notified: Yes 04/30/23 15:25 Consult to Cardiology Routine Consulting Provider: [facility] Cardi[facility] Services Reason for consultation: nstemi while in ICU ; wma on echo Has provider been notified: No 05/04/23 16:02 Consult to Psychiatry Routine Consulting Provider: Psych Covering Reason for consultation: depression (med recs) 05/05/23 11:12 Consult to Neurology Routine Consulting Provider: Neurology [facility] Reason for consultation: anoxic encephalopathy- ?brain injury program 05/12/23 15:03 Consult to Psychiatry Routine Consulting Provider: Psych Covering Reason for consultation: Depression/schizophrenia Has provider been notified: Yes 05/15/23 09:13 Consult to Neurology Routine Consulting Provider: Neurology [facility] Reason for consultation: anoxic brain injury with minimum function recovery Has provider been notified: No DS: Diagnosis Discharge Diagnosis (1) Anoxic encephalopathy: Status: Acute DS: Summary Hospital Course Hospital Course: History and physical as per admitting provider. 28-year-old gentleman with underlying history of schizophrenia alcohol use, marijuana use? admitted on 04/08/2023 after he was noted to be unresponsive by his girlfriend for unclear amount of time with full min at the mouse.? Patient was transported by EMS to emergency room where he was intubated for hypoxia and respiratory distress.? On further evaluation patient with imaging finding of aspiration and left pneumothorax.? Initial left mid axillary chest tube placed in emergency room with persistence of pneumothorax and questionable subdiaphragmatic placement.? Chest tube removed and replaced with left midclavicular in 3rd intercostal space with air evacuation and improvement in pneumothorax.? Patient also noted to have acute kidney injury and rhabdomyolysis and started on IV fluid hydration.? HPI: 28-year-old man with underlying history of schizophrenia alcohol use, marijuana use?admitted on 04/08/2023 after he was noted to be unresponsive by his girlfriend for unclear amount of time. Patient was intubated for hypoxia and respiratory distress found to be secondary to aspiration pna and left pneumothorax. Initial left mid axillary chest tube placed in emergency room with persistence of pneumothorax and questionable subdiaphragmatic placement.? Chest tube removed and replaced with left midclavicular in 3rd intercostal space with air evacuation and improvement in pneumothorax.? Patient also noted to have acute kidney injury and rhabdomyolysis and started on IV fluid hydration. He underwent right gluteal fasciotomy with significant improvement in his CPK and renal function (likely secondary to laying on the couch unresponsive for an on known period of time).?extubated 04/23/23 remained persistently encephalopathic for at least a week.?MRI on 04/10/2023 showed bilateral cerebral anoxic related encephalopathy. ? Evaluated by neurology with? prognosis consider to be guarded, but not catastrophic. Overall he had slow neurologic improvement with significant improvement daily after that. He now ambulates and follows commands with very mild delay. Total hospitalization days 82. Anoxic brain injury secondary to aspiration pneumonia likely related to polysubstance overdose, accidental. Has participated with physical therapy and occupational therapy, using baclofen as muscle relaxant with Motrin for pain. Overall good improvement in neurological status. Schizophrenia. Patient is Zyprexa initially had been stopped subsequently several weeks after admission restarted in now on 10 mg at bedtime with sertraline 50 mg. He was seen evaluated by psychiatric team and should continue as an outpatient. NSTEMI. During the patient's ICU stay early in the admission he was noted to have an NSTEMI with elevated troponins. He completed a heparin drip. Was started on aspirin, statin and beta-judy. However beta-judy was subsequently stopped due to low blood pressures. JANNY. Patient also had acute renal failure likely secondary to low-flow, hypotension during initial phase of anoxic brain injury. Subsequently resolved with IV fluids. Time Spent with Patient Time attestation: Total time managing care of this patient today ____ minutes. Discharge coordination time: Greater than 30 minutes Quality: Safe Use of Opioids Does Pt have an Active Cancer Diagnosis on the Problem List?: No Quality: Stroke Does the patient have a stroke diagnosis?: No Physical Exam Vital Signs: Vital Signs: Last Vital Signs Temp 98.1 F 06/29/23 07:35 Pulse 53 06/29/23 07:35 Resp 16 06/29/23 07:35 BP 109/63 06/29/23 07:35 Pulse Ox 98 06/29/23 07:35 O2 Del Method Room Air 06/29/23 07:35 O2 Flow Rate 98 05/17/23 20:00 FiO2 30 04/23/23 11:00 BMI result Body Mass Index 21.0 Appearing in no acute distress head is normocephalic atraumatic eyes pupils are PERRLA sclera is anicteric mouth throat mucous membranes are intact and moist neck is supple no lymphadenopathy, no JVD noted lung sounds are clear to auscultation heart regular rate rhythm, clear S1, S2 positive bowel sounds, abdomen is soft, nontender neuro patient is alert x3, no focal deficits Discharge Plan Discharge Anticipated Discharge Date/Time: 06/29/23 10:56 Patient Disposition: Xfer Inpatient Rehab Fac Discharge Diagnosis: Anoxic brain injury Aspiration pneumonia Anoxic encephalopathy Polysubstance overdose Schizophrenia NSTEMI JANNY Discharge Medications: New atorvastatin 40 mg Tablet 40 mg PO BEDTIME Qty: 30 0RF olanzapine 10 mg Tablet 10 mg PO BEDTIME Qty: 30 0RF baclofen 10 mg Tablet 10 mg PO TID Qty: 12 0RF aspirin 81 mg Tablet,Chewable 81 mg PO DAILY Qty: 30 0RF sertraline 50 mg Tablet 50 mg PO DAILY Qty: 30 0RF Continued ketoconazole 2 % cream 1 appl topical DAILY Discontinued olanzapine 10 mg tablet 10 mg PO BEDTIME Discharge Orders: Discharge Order (Routine); Ordered 06/29/23 Ordered By: Clara Bentley Diet: Advance to usual diet Activity on Discharge: As tolerated Stand Alone Forms: Patient Portal Discharge page Care Plan Goals: Continue physical and occupational therapy, plan for long-term housing Health Concerns: Anoxic brain injury Aspiration pneumonia Anoxic encephalopathy Polysubstance overdose Schizophrenia NSTEMI JANNY Plan of Treatment: Continue physical and occupational therapy Take all medications as prescribed Schedule an appointment with a primary care provider Assessment: See discharge summary
--- NOTE | 2023-06-29 11:31 | MHC.CM.PN ---
A call was received from [facility] Love. He stated that [facility] and [facility] have come to an agreement on rate. Spoke with Carlos Stark re admission. He states that there are several outstanding items needed prior to the [facility] transfer. A list of tasks that need to be done for admission to [facility], has been received. MINOR Aquino via BLS.
--- NOTE | 2023-06-29 14:38 | MHC.CLN ---
F/U DIET=REGULAR. NO LONGER TAKING ENSURE SUPPLEMENT. INTAKE USUALLY 75-100%. SKIN: HEALING BLISTER TO RIGHT FOOT. RD TO FOLLOW WEEKLY
[2023-06-29] MEDS: Nystatin Powder 15 GM BOTTLE 1 APPL TOPICAL ×2 (15:30→20:17)
--- NOTE | 2023-06-29 15:39 | HO.PM.IMPN ---
Subjective Subjective Date of Service: 06/29/23 Interval History: Follow-up for patient with anoxic related encephalopathy No acute events overnight Patient states he is doing well Continues to complain of his right knee still being ?stuck? Review of Systems Right knee discomfort Patient has no other acute medical complaints Physical Exam Vital Signs: Vital Signs: Last Vital Signs Temp 98.1 F 06/29/23 07:35 Pulse 53 06/29/23 07:35 Resp 16 06/29/23 07:35 BP 109/63 06/29/23 07:35 Pulse Ox 98 06/29/23 07:35 O2 Del Method Room Air 06/29/23 07:35 O2 Flow Rate 98 05/17/23 20:00 FiO2 30 04/23/23 11:00 BMI result Body Mass Index 21.0 Appearing in no acute distress lung sounds are clear to auscultation heart regular rate rhythm, clear S1, S2 positive bowel sounds, abdomen is soft, nontender neuro patient is alert x3, no focal deficits Objective Data Active Medications Acetaminophen (Acetaminophen Oral Liquid 650 Mg/20.3 Ml Solution) 650 mg PO Q6H PRN PRN Reason: Fever Last Admin: 06/14/23 19:56 Dose: 650 mg Documented By: DAVID Aspirin (Aspirin 81 Mg Tab.Chew) 81 mg PO DAILY [facility] Last Admin: 06/29/23 09:45 Dose: 81 mg Documented By: XUAN Atorvastatin Calcium (Atorvastatin Calcium 40 Mg Tablet) 40 mg PO BEDTIME [facility] Last Admin: 06/28/23 20:16 Dose: 40 mg Documented By: FRANK Baclofen (Baclofen 10 Mg Tablet) 10 mg PO TID [facility] Last Admin: 06/29/23 15:30 Dose: 10 mg Documented By: XUAN Docusate Sodium (Docusate Sodium 100 Mg Capsule) 200 mg PO BEDTIME [facility] Last Admin: 06/28/23 20:17 Dose: 200 mg Documented By: FRANK Enoxaparin Sodium (Enoxaparin Sodium 40 Mg/0.4 Ml Syringe) 40 mg SUBCUT Q24H [facility] Last Admin: 06/29/23 15:29 Dose: Not Given Documented By: XUAN Non-Admin Reason: Patient Refused Folic Acid (Folic Acid 1 Mg Tablet) 1 mg PO DAILY [facility] Last Admin: 08/14/23 09:45 Dose: 1 mg Documented By: XUAN Ibuprofen (Ibuprofen 400 Mg Tablet) 400 mg PO Q8H PRN PRN Reason: Pain, Moderate(Pain Scale 4-6) Last Admin: 06/28/23 09:23 Dose: 400 mg Documented By: KANU Magnesium Hydroxide (Milk Of Magnesia 30 Ml Oral.Susp) 30 ml PO DAILY PRN PRN Reason: Constipation Multivitamins/Vitamin C (Multivitamin Tablet) 1 tab PO DAILY [facility] Last Admin: 06/29/23 09:44 Dose: 1 tab Documented By: XUAN Naloxone HCl (Naloxone Hcl 0.4 Mg/Ml Vial) 0.2 mg IVPUSH Q2M PRN PRN Reason: Excessive sedation or RR < 8 Nystatin (Nystatin Powder 15 Gm Bottle) 1 appl TOPICAL TID [facility]; Protocol Last Admin: 06/29/23 15:30 Dose: 1 appl Documented By: XUAN Olanzapine (Olanzapine 10 Mg Tablet) 10 mg PO BEDTIME [facility] Last Admin: 06/28/23 20:17 Dose: 10 mg Documented By: FRANK Sertraline HCl (Sertraline Hcl 50 Mg Tablet) 50 mg PO DAILY [facility] Last Admin: 06/29/23 09:45 Dose: 50 mg Documented By: XUAN Thiamine HCl (Thiamine Hcl 100 Mg Tablet) 100 mg PO DAILY [facility] Last Admin: 06/29/23 09:45 Dose: 100 mg Documented By: XUAN Labs 05/07/23 06:02 06/10/23 11:55 Assessment and Plan (1) Anoxic encephalopathy: Status: Acute Plan 28-year-old man with underlying history of schizophrenia, alcohol use, marijuana use?admitted on 04/08/2023 after he was noted to be unresponsive by his girlfriend for undetermined amount of time. He was transported by EMS to emergency room where he was intubated fo acute hypoxic respiratory failure. Further work up revealed? aspiration and left pneumothorax.? Initial left mid axillary chest tube placed in emergency room with persistence of pneumothorax and questionable subdiaphragmatic placement.? Chest tube removed and replaced with left midclavicular in 3rd intercostal space with air evacuation and improvement in pneumothorax.? Patient also noted to have acute kidney injury and rhabdomyolysis and started on IV fluid hydration. He underwent right gluteal fasciotomy with significant improvement in his CPK and renal function.? However, remains persistently encephalopathic.? MRI on 04/10/2023 with bilateral cerebral anoxic related encephalopathy. ? Evaluated by neurology with prognosis consider to be guarded, but not catastrophic. Overall with slow neurologic improvement, With significant improvement on 04/23/2023. extubated 04/23/2023 and downgraded to the medical floor on 04/25. 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 (ANI) continues to improve ,? continue participation in? PT and OT Acute rehab when available Baclofen as muscle relaxant, Motrin prn for pain Right knee discomfort improved after knee buckled on 06/12. resolved Schizophrenia Sertraline 50mg/olanzapine 10mg HS Psych following as needed NSTEMI, resolved s/p heparin drip. asa, statin and BB Low BP hold BB Acute renal failure Resolved. DVT prophylaxis - Lovenox once daily. Full Code Attending Dr. Treadwell DISPO plan for extensive rehab Has [facility] guardian, pending SNF placement. Time Spent With Patient Time: Total time managing care of this patient today ____ minutes. Quality Stroke Does the patient have a stroke diagnosis?: No VTE Prior VTE?: No VTE Risk Level:: Medical - moderate - high VTE Device Contraindication: N/A - Device Ordered VTE Drug Contraindication: N/A - Med Ordered
[2023-06-29 16:00] VITALS: BP 110/62; PULSE 59; RESP 18; TEMP 36.4; O2SAT 100
[2023-06-29 20:00] VITALS: BP 107/57; PULSE 73; RESP 14; TEMP 36.8; O2SAT 97
[2023-06-29] MEDS: Atorvastatin Calcium 40 MG TABLET PO (20:16)
[2023-06-29] MEDS: Docusate Sodium 100 MG CAPSULE 200 MG PO (20:16)
[2023-06-29] MEDS: OLANZapine 10 MG TABLET PO (20:17)
[2023-06-30 04:00] VITALS: BP 99/60; PULSE 54; RESP 16; TEMP 36.2; O2SAT 93
[2023-06-30 08:00] VITALS: BP 105/55; PULSE 60; RESP 16; TEMP 36.7; O2SAT 95
[2023-06-30] MEDS: Thiamine HCL 100 MG TABLET PO (08:47)
[2023-06-30] MEDS: Aspirin 81 MG TAB.CHEW PO (08:47)
[2023-06-30] MEDS: Multivitamin TABLET 1 TAB PO (08:47)
[2023-06-30] MEDS: Sertraline HCL 50 MG TABLET PO (08:48)
[2023-06-30] MEDS: Baclofen 10 MG TABLET PO ×3 (08:48→20:35)
[2023-06-30] MEDS: Nystatin Powder 15 GM BOTTLE 1 APPL TOPICAL ×3 (08:50→20:35)
[2023-06-30] MEDS: Folic Acid 1 MG TABLET PO (10:26)
--- NOTE | 2023-06-30 12:25 | HO.PM.IMPN ---
Subjective Subjective Date of Service: 06/30/23 Interval History: Follow-up for patient with anoxic related encephalopathy No acute events overnight Patient states he is doing well Physical Exam Vital Signs: Vital Signs: Last Vital Signs Temp 98.1 F 06/30/23 08:00 Pulse 60 06/30/23 08:00 Resp 16 06/30/23 08:00 BP 105/55 L 06/30/23 08:00 Pulse Ox 95 06/30/23 08:00 O2 Del Method Room Air 06/30/23 08:00 O2 Flow Rate 98 05/17/23 20:00 FiO2 30 04/23/23 11:00 BMI result Body Mass Index 21.0 Appearing in no acute distress LSCTA heart regular rate rhythm, clear S1, S2 positive bowel sounds, abdomen is soft, nontender neuro patient is alert x3, no focal deficits Objective Data Active Medications Acetaminophen (Acetaminophen Oral Liquid 650 Mg/20.3 Ml Solution) 650 mg PO Q6H PRN PRN Reason: Fever Last Admin: 06/14/23 19:56 Dose: 650 mg Documented By: DAVID Aspirin (Aspirin 81 Mg Tab.Chew) 81 mg PO DAILY [facility] Last Admin: 06/30/23 08:47 Dose: 81 mg Documented By: XUAN Atorvastatin Calcium (Atorvastatin Calcium 40 Mg Tablet) 40 mg PO BEDTIME [facility] Last Admin: 06/29/23 20:16 Dose: 40 mg Documented By: JADIEL Baclofen (Baclofen 10 Mg Tablet) 10 mg PO TID [facility] Last Admin: 06/30/23 08:48 Dose: 10 mg Documented By: XUAN Docusate Sodium (Docusate Sodium 100 Mg Capsule) 200 mg PO BEDTIME [facility] Last Admin: 06/29/23 20:16 Dose: 200 mg Documented By: JADIEL Enoxaparin Sodium (Enoxaparin Sodium 40 Mg/0.4 Ml Syringe) 40 mg SUBCUT Q24H [facility] Last Admin: 06/29/23 15:29 Dose: Not Given Documented By: XUAN Non-Admin Reason: Patient Refused Folic Acid (Folic Acid 1 Mg Tablet) 1 mg PO DAILY [facility] Last Admin: 06/30/23 10:26 Dose: 1 mg Documented By: XUAN Ibuprofen (Ibuprofen 400 Mg Tablet) 400 mg PO Q8H PRN PRN Reason: Pain, Moderate(Pain Scale 4-6) Last Admin: 06/28/23 09:23 Dose: 400 mg Documented By: KANU Magnesium Hydroxide (Milk Of Magnesia 30 Ml Oral.Susp) 30 ml PO DAILY PRN PRN Reason: Constipation Multivitamins/Vitamin C (Multivitamin Tablet) 1 tab PO DAILY [facility] Last Admin: 06/30/23 08:47 Dose: 1 tab Documented By: XUAN Naloxone HCl (Naloxone Hcl 0.4 Mg/Ml Vial) 0.2 mg IVPUSH Q2M PRN PRN Reason: Excessive sedation or RR < 8 Nystatin (Nystatin Powder 15 Gm Bottle) 1 appl TOPICAL TID [facility]; Protocol Last Admin: 06/30/23 08:50 Dose: 1 appl Documented By: XUAN Olanzapine (Olanzapine 10 Mg Tablet) 10 mg PO BEDTIME [facility] Last Admin: 06/29/23 20:17 Dose: 10 mg Documented By: JADIEL Sertraline HCl (Sertraline Hcl 50 Mg Tablet) 50 mg PO DAILY [facility] Last Admin: 06/30/23 08:48 Dose: 50 mg Documented By: XUAN Thiamine HCl (Thiamine Hcl 100 Mg Tablet) 100 mg PO DAILY [facility] Last Admin: 06/30/23 08:47 Dose: 100 mg Documented By: XUAN Labs 05/07/23 06:02 06/10/23 11:55 Assessment and Plan (1) Anoxic encephalopathy: Status: Acute Plan 28-year-old man with underlying history of schizophrenia, alcohol use, marijuana use?admitted on 04/08/2023 after he was noted to be unresponsive by his girlfriend for undetermined amount of time. He was transported by EMS to emergency room where he was intubated fo acute hypoxic respiratory failure. Further work up revealed? aspiration and left pneumothorax.? Initial left mid axillary chest tube placed in emergency room with persistence of pneumothorax and questionable subdiaphragmatic placement.? Chest tube removed and replaced with left midclavicular in 3rd intercostal space with air evacuation and improvement in pneumothorax.? Patient also noted to have acute kidney injury and rhabdomyolysis and started on IV fluid hydration. He underwent right gluteal fasciotomy with significant improvement in his CPK and renal function.? However, remains persistently encephalopathic.? MRI on 04/10/2023 with bilateral cerebral anoxic related encephalopathy. ? Evaluated by neurology with prognosis consider to be guarded, but not catastrophic. Overall with slow neurologic improvement, With significant improvement on 04/23/2023. extubated 04/23/2023 and downgraded to the medical floor on 04/25. 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 (ANI) continues to improve ,? continue participation in? PT and OT Acute rehab when available Baclofen as muscle relaxant, Motrin prn for pain Right knee discomfort improved after knee buckled on 06/12. resolved Schizophrenia Sertraline 50mg/olanzapine 10mg HS Psych following as needed NSTEMI, resolved s/p heparin drip. asa, statin and BB Low BP hold BB Acute renal failure Resolved. DVT prophylaxis - Lovenox once daily. Full Code Attending Dr. Treadwell DISPO plan for extensive rehab Has [facility] guardian, pending SNF placement. Time Spent With Patient Time: Total time managing care of this patient today ____ minutes. Quality Stroke Does the patient have a stroke diagnosis?: No VTE Prior VTE?: No VTE Risk Level:: Medical - moderate - high VTE Device Contraindication: N/A - Device Ordered VTE Drug Contraindication: N/A - Med Ordered
--- NOTE | 2023-06-30 14:58 | MHC.SPEECHCO ---
Pt not seen 06/30. MEDICAL CERTIFICATION SPECIALIST continues to recommend acute rehab placement with ST availability.
[2023-06-30 15:38] VITALS: BP 117/61; PULSE 64; RESP 18; TEMP 36.4; O2SAT 98
[2023-06-30 19:26] VITALS: BP 126/77; PULSE 65; RESP 18; TEMP 36.8; O2SAT 97
[2023-06-30] MEDS: Docusate Sodium 100 MG CAPSULE 200 MG PO (20:34)
[2023-06-30] MEDS: Atorvastatin Calcium 40 MG TABLET PO (20:34)
[2023-06-30] MEDS: OLANZapine 10 MG TABLET PO (20:34)
[2023-07-01 03:31] VITALS: BP 105/63; PULSE 62; RESP 18; TEMP 36.5; O2SAT 97
[2023-07-01 07:44] VITALS: BP 107/62; PULSE 53; RESP 16; TEMP 36.7; O2SAT 96
--- NOTE | 2023-07-01 08:13 | HO.PM.IMPN ---
Subjective Subjective Date of Service: 07/01/23 Interval History: Follow-up for patient with anoxic related encephalopathy No acute events overnight Patient states he is doing well Physical Exam Vital Signs: Vital Signs: Last Vital Signs Temp 98.1 F 07/01/23 07:44 Pulse 53 07/01/23 07:44 Resp 16 07/01/23 07:44 BP 107/62 07/01/23 07:44 Pulse Ox 96 07/01/23 07:44 O2 Del Method Room Air 07/01/23 07:44 O2 Flow Rate 98 05/17/23 20:00 FiO2 30 04/23/23 11:00 BMI result Body Mass Index 21.0 Appearing in no acute distress lung sounds are clear to auscultation heart regular rate rhythm, clear S1, S2 positive bowel sounds, abdomen is soft, nontender neuro patient is alert x3, no focal deficits Objective Data Active Medications Acetaminophen (Acetaminophen Oral Liquid 650 Mg/20.3 Ml Solution) 650 mg PO Q6H PRN PRN Reason: Fever Last Admin: 06/14/23 19:56 Dose: 650 mg Documented By: DAVID Aspirin (Aspirin 81 Mg Tab.Chew) 81 mg PO DAILY [facility] Last Admin: 06/30/23 08:47 Dose: 81 mg Documented By: XUAN Atorvastatin Calcium (Atorvastatin Calcium 40 Mg Tablet) 40 mg PO BEDTIME [facility] Last Admin: 06/30/23 20:34 Dose: 40 mg Documented By: JADIEL Baclofen (Baclofen 10 Mg Tablet) 10 mg PO TID [facility] Last Admin: 06/30/23 20:35 Dose: 10 mg Documented By: JADIEL Docusate Sodium (Docusate Sodium 100 Mg Capsule) 200 mg PO BEDTIME [facility] Last Admin: 06/30/23 20:34 Dose: 200 mg Documented By: JADIEL Enoxaparin Sodium (Enoxaparin Sodium 40 Mg/0.4 Ml Syringe) 40 mg SUBCUT Q24H [facility] Last Admin: 06/30/23 15:23 Dose: Not Given Documented By: XUAN Non-Admin Reason: Patient Refused Folic Acid (Folic Acid 1 Mg Tablet) 1 mg PO DAILY [facility] Last Admin: 06/30/23 10:26 Dose: 1 mg Documented By: XUAN Ibuprofen (Ibuprofen 400 Mg Tablet) 400 mg PO Q8H PRN PRN Reason: Pain, Moderate(Pain Scale 4-6) Last Admin: 06/28/23 09:23 Dose: 400 mg Documented By: KANU Magnesium Hydroxide (Milk Of Magnesia 30 Ml Oral.Susp) 30 ml PO DAILY PRN PRN Reason: Constipation Multivitamins/Vitamin C (Multivitamin Tablet) 1 tab PO DAILY [facility] Last Admin: 06/30/23 08:47 Dose: 1 tab Documented By: XUAN Naloxone HCl (Naloxone Hcl 0.4 Mg/Ml Vial) 0.2 mg IVPUSH Q2M PRN PRN Reason: Excessive sedation or RR < 8 Nystatin (Nystatin Powder 15 Gm Bottle) 1 appl TOPICAL TID [facility]; Protocol Last Admin: 06/30/23 20:35 Dose: 1 appl Documented By: JADIEL Olanzapine (Olanzapine 10 Mg Tablet) 10 mg PO BEDTIME [facility] Last Admin: 06/30/23 20:34 Dose: 10 mg Documented By: JADIEL Sertraline HCl (Sertraline Hcl 50 Mg Tablet) 50 mg PO DAILY [facility] Last Admin: 06/30/23 08:48 Dose: 50 mg Documented By: XUAN Thiamine HCl (Thiamine Hcl 100 Mg Tablet) 100 mg PO DAILY [facility] Last Admin: 06/30/23 08:47 Dose: 100 mg Documented By: XUAN Labs 05/07/23 06:02 06/10/23 11:55 Assessment and Plan (1) Anoxic encephalopathy: Status: Acute Plan 28-year-old man with underlying history of schizophrenia, alcohol use, marijuana use?admitted on 04/08/2023 after he was noted to be unresponsive by his girlfriend for undetermined amount of time. He was transported by EMS to emergency room where he was intubated fo acute hypoxic respiratory failure. Further work up revealed? aspiration and left pneumothorax.? Initial left mid axillary chest tube placed in emergency room with persistence of pneumothorax and questionable subdiaphragmatic placement.? Chest tube removed and replaced with left midclavicular in 3rd intercostal space with air evacuation and improvement in pneumothorax.? Patient also noted to have acute kidney injury and rhabdomyolysis and started on IV fluid hydration. He underwent right gluteal fasciotomy with significant improvement in his CPK and renal function.? However, remains persistently encephalopathic.? MRI on 04/10/2023 with bilateral cerebral anoxic related encephalopathy. ? Evaluated by neurology with prognosis consider to be guarded, but not catastrophic. Overall with slow neurologic improvement, With significant improvement on 04/23/2023. extubated 04/23/2023 and downgraded to the medical floor on 04/25. 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 (ANI) continues to improve ,? continue participation in? PT and OT Acute rehab when available Baclofen as muscle relaxant, Motrin prn for pain Right knee discomfort improved after knee buckled on 06/12. resolved Schizophrenia Sertraline 50mg/olanzapine 10mg HS Psych following as needed NSTEMI, resolved s/p heparin drip. asa, statin and BB Low BP hold BB Acute renal failure Resolved. DVT prophylaxis - Lovenox once daily. Full Code Attending Dr. Treadwell DISPO plan for extensive rehab Has [facility] guardian, pending SNF placement. Time Spent With Patient Time: Total time managing care of this patient today ____ minutes. Quality Stroke Does the patient have a stroke diagnosis?: No VTE Prior VTE?: No VTE Risk Level:: Medical - moderate - high VTE Device Contraindication: N/A - Device Ordered VTE Drug Contraindication: N/A - Med Ordered
[2023-07-01] MEDS: Folic Acid 1 MG TABLET PO (09:02)
[2023-07-01] MEDS: Baclofen 10 MG TABLET PO ×3 (09:02→22:07)
[2023-07-01] MEDS: Sertraline HCL 50 MG TABLET PO (09:02)
[2023-07-01] MEDS: Aspirin 81 MG TAB.CHEW PO (09:02)
[2023-07-01] MEDS: Multivitamin TABLET 1 TAB PO (09:02)
[2023-07-01] MEDS: Thiamine HCL 100 MG TABLET PO (09:02)
[2023-07-01 15:16] VITALS: BP 106/61; PULSE 63; RESP 18; TEMP 36.8; O2SAT 97
[2023-07-01] MEDS: Ibuprofen 400 MG TABLET PO (15:48)
[2023-07-01 20:00] VITALS: BP 115/57; PULSE 56; RESP 14; TEMP 36.3; O2SAT 98
[2023-07-01] MEDS: Atorvastatin Calcium 40 MG TABLET PO (22:07)
[2023-07-01] MEDS: OLANZapine 10 MG TABLET PO (22:07)
[2023-07-01] MEDS: Docusate Sodium 100 MG CAPSULE 200 MG PO (22:07)
[2023-07-02 03:37] VITALS: BP 98/56; PULSE 50; RESP 14; TEMP 36.3; O2SAT 96
[2023-07-02 07:17] VITALS: BP 123/70; PULSE 62; RESP 18; TEMP 36.6; O2SAT 96
[2023-07-02] MEDS: Sertraline HCL 50 MG TABLET PO (11:08)
[2023-07-02] MEDS: Folic Acid 1 MG TABLET PO (11:08)
[2023-07-02] MEDS: Multivitamin TABLET 1 TAB PO (11:08)
[2023-07-02] MEDS: Thiamine HCL 100 MG TABLET PO (11:09)
[2023-07-02] MEDS: Baclofen 10 MG TABLET PO ×3 (11:09→19:27)
[2023-07-02] MEDS: Aspirin 81 MG TAB.CHEW PO (11:09)
--- NOTE | 2023-07-02 11:41 | PC.NURSE ---
This RN read PPD test from left forearm @ 1045 07/02/23. 0 mm induration. Test negative.
--- NOTE | 2023-07-02 13:21 | MHC.CM.PN ---
Addendum entered by Vandana Burgos 07/02/23 15:33: CM RECEIVED A RETURN MESSAGE FROM [facility]. HE INDICATED THEY HAVE THE NECESSARY DOCUMENTS FROM THE PTS GUARDIAN THEY ARE AWAITING PTS FINANCIAL INFO FROM [facility] PASRR LEVEL I AND MDS COMPLETED Original Note: PT PENDING TRANSF[facility] TO [facility] QUESTIONING THE LEVEL I PASRR AND LACK OF LEVEL II CM CALLED [facility] TO CONFIRM TYPICAL PROTOCOL: PT SHOULD DC ON A LESS THAN 30 CATEGORICAL DETERMINATION AND THE SNF SHOULD FILE AN EXTENSION BEFORE THE 30 DAYS ENDS. THIS INFORMATION WAS FORWARDED TO [facility] ALONG WITH PPD RESULTS AWAITING RESPONSE
[2023-07-02] MEDS: Ibuprofen 400 MG TABLET PO (14:41)
--- NOTE | 2023-07-02 14:41 | HO.PM.IMPN ---
Subjective Subjective Date of Service: 07/02/23 Interval History: follow up for anoxic related encephalopathy no overnight events no specific complaints this morning Review of Systems Review of Systems: Yes all other systems are reviewed and are negative Constitutional Constitutional: Denies chills and Denies fever(s) Cardiovascular Cardiovascular: Denies chest pain Gastrointestinal Gastrointestinal: Denies abdominal pain Physical Exam Vital Signs: Vital Signs: Last Vital Signs Temp 97.8 F 07/02/23 07:17 Pulse 62 07/02/23 07:17 Resp 18 07/02/23 07:17 BP 123/70 07/02/23 07:17 Pulse Ox 96 07/02/23 07:17 O2 Del Method Room Air 07/02/23 07:17 O2 Flow Rate 98 05/17/23 20:00 FiO2 30 04/23/23 11:00 BMI result Body Mass Index 21.0 Const: General: cooperative, comfortable, no acute distress, alert and awake Nutritional Appearance: thin Resp: Effort & Inspection: normal respiratory effort, able to speak in complete sentences, no respiratory distress and no use of accessory muscles Cardio: Rate: regular rate GI: Inspection: No distended Palpation (GI): Soft to palpation Neuro: General: CN's II-XI intact bilaterally Extrem: General: Yes no pedal edema Objective Data Active Medications Acetaminophen (Acetaminophen Oral Liquid 650 Mg/20.3 Ml Solution) 650 mg PO Q6H PRN PRN Reason: Fever Last Admin: 06/14/23 19:56 Dose: 650 mg Documented By: DAVID Aspirin (Aspirin 81 Mg Tab.Chew) 81 mg PO DAILY [facility] Last Admin: 07/02/23 11:09 Dose: 81 mg Documented By: KANU Atorvastatin Calcium (Atorvastatin Calcium 40 Mg Tablet) 40 mg PO BEDTIME [facility] Last Admin: 07/01/23 22:07 Dose: 40 mg Documented By: DEVIN Baclofen (Baclofen 10 Mg Tablet) 10 mg PO TID [facility] Last Admin: 07/02/23 14:38 Dose: 10 mg Documented By: KANU Docusate Sodium (Docusate Sodium 100 Mg Capsule) 200 mg PO BEDTIME [facility] Last Admin: 07/01/23 22:07 Dose: 200 mg Documented By: DEVIN Enoxaparin Sodium (Enoxaparin Sodium 40 Mg/0.4 Ml Syringe) 40 mg SUBCUT Q24H [facility] Last Admin: 07/01/23 14:34 Dose: Not Given Documented By: KANU Non-Admin Reason: Patient Refused Folic Acid (Folic Acid 1 Mg Tablet) 1 mg PO DAILY [facility] Last Admin: 07/02/23 11:08 Dose: 1 mg Documented By: KANU Ibuprofen (Ibuprofen 400 Mg Tablet) 400 mg PO Q8H PRN PRN Reason: Pain, Moderate(Pain Scale 4-6) Last Admin: 07/01/23 15:48 Dose: 400 mg Documented By: DEVIN Magnesium Hydroxide (Milk Of Magnesia 30 Ml Oral.Susp) 30 ml PO DAILY PRN PRN Reason: Constipation Multivitamins/Vitamin C (Multivitamin Tablet) 1 tab PO DAILY [facility] Last Admin: 07/02/23 11:08 Dose: 1 tab Documented By: KANU Naloxone HCl (Naloxone Hcl 0.4 Mg/Ml Vial) 0.2 mg IVPUSH Q2M PRN PRN Reason: Excessive sedation or RR < 8 Nystatin (Nystatin Powder 15 Gm Bottle) 1 appl TOPICAL TID [facility]; Protocol Last Admin: 07/02/23 11:10 Dose: Not Given Documented By: KANU Non-Admin Reason: Patient Refused Olanzapine (Olanzapine 10 Mg Tablet) 10 mg PO BEDTIME [facility] Last Admin: 07/01/23 22:07 Dose: 10 mg Documented By: DEVIN Sertraline HCl (Sertraline Hcl 50 Mg Tablet) 50 mg PO DAILY [facility] Last Admin: 07/02/23 11:08 Dose: 50 mg Documented By: KANU Thiamine HCl (Thiamine Hcl 100 Mg Tablet) 100 mg PO DAILY [facility] Last Admin: 07/02/23 11:09 Dose: 100 mg Documented By: KANU Labs 05/07/23 06:02 06/10/23 11:55 Assessment and Plan (1) Anoxic encephalopathy: Status: Acute Plan 28-year-old man with underlying history of schizophrenia, alcohol use, marijuana use?admitted on 04/08/2023 after he was noted to be unresponsive by his girlfriend for undetermined amount of time. He was transported by EMS to emergency room where he was intubated fo acute hypoxic respiratory failure. Further work up revealed? aspiration and left pneumothorax.? Initial left mid axillary chest tube placed in emergency room with persistence of pneumothorax and questionable subdiaphragmatic placement.? Chest tube removed and replaced with left midclavicular in 3rd intercostal space with air evacuation and improvement in pneumothorax.? Patient also noted to have acute kidney injury and rhabdomyolysis and started on IV fluid hydration. He underwent right gluteal fasciotomy with significant improvement in his CPK and renal function.? However, remains persistently encephalopathic.? MRI on 04/10/2023 with bilateral cerebral anoxic related encephalopathy. ? Evaluated by neurology with prognosis consider to be guarded, but not catastrophic. Overall with slow neurologic improvement, With significant improvement on 04/23/2023. extubated 04/23/2023 and downgraded to the medical floor on 04/25. 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 (ANI) continues to improve ,? continue participation in? PT and OT Acute rehab when available Baclofen as muscle relaxant, Motrin prn for pain Right knee discomfort improved after knee buckled on 06/12. resolved Schizophrenia Sertraline 50mg/olanzapine 10mg HS Psych following as needed NSTEMI, resolved s/p heparin drip. Noted to have soft blood pressures and heart rate therefore Lopressor discontinued, continue aspirin, statin and outpatient workup with Cardiology. Acute renal failure Resolved. DVT prophylaxis - Lovenox Full Code Attending Dr. Treadwell DISPO plan for extensive rehab Has [facility] guardian, pending SNF placement. requires continued hospitalization for safe disposition Time Spent With Patient Time: Total time managing care of this patient today ____ minutes. Quality Stroke Does the patient have a stroke diagnosis?: No VTE Prior VTE?: No VTE Risk Level:: Medical - moderate - high VTE Device Contraindication: N/A - Device Ordered VTE Drug Contraindication: N/A - Med Ordered
--- NOTE | 2023-07-02 15:02 | MHC.SLORD ---
Speech Language Pathology Order Status: Patient pending transfer to [facility] today, per CM note. Patient not seen for [employer] [place], recommend ongoing language and cognitive tx at next level of care.
[2023-07-02 15:19] VITALS: BP 114/62; PULSE 75; RESP 18; TEMP 36.7; O2SAT 97
[2023-07-02] MEDS: Acetaminophen Oral Liquid 650 MG/20.3 ML SOLUTION PO (19:03)
[2023-07-02] MEDS: Atorvastatin Calcium 40 MG TABLET PO (19:27)
[2023-07-02] MEDS: Docusate Sodium 100 MG CAPSULE 200 MG PO (19:27)
[2023-07-02] MEDS: OLANZapine 10 MG TABLET PO (19:27)
[2023-07-02 19:29] VITALS: BP 120/58; PULSE 68; RESP 18; TEMP 36.6; O2SAT 97
[2023-07-02] MEDS: Nystatin Powder 15 GM BOTTLE 1 APPL TOPICAL (19:29)
[2023-07-03 02:48] VITALS: BP 111/53; PULSE 76; RESP 14; TEMP 36.1; O2SAT 99
[2023-07-03 08:11] VITALS: BP 115/61; PULSE 54; RESP 16; TEMP 36.3; O2SAT 97
--- NOTE | 2023-07-03 08:33 | MHC.CM.PN ---
Addendum entered by Vandana Burgos 07/03/23 16:12: CORRECTION: MARLENE IS JASON REZA Addendum entered by Vandana Burgos 07/03/23 16:00: CM RECEIVED A CALL FROM JETT WILD AT [facility], HE INDICATES THEY HAVE RECEIVED HNE AUTH AND ARE READY TO RECEIVE PT TODAY CM MET WITH PT WHO ASKS THAT HE GO AFTER [facility]SPORT BOOKED WITH [facility] VM MESSAGES LEFT FOR DENIS BELL RN [phone] CM ATTEMPTED TO CONTACT PTS GUARDIAN, JASON WYNNE [phone], HOWEVER THE VM BOX WAS FULL AND NO MESSAGE COULD BE LEFT [facility] DID STATE HE HAD MADE CONTACT WITH PTS MARLENE THIS MORNING, AND HE IS AWARE OF PLAN TO TRANSFER TODAY DCS UPLOADED TO [facility] AND FAXED TO [facility] AT [phone] Original Note: PER [facility] LIAISON, THEY ARE AWAITING PTS FINANCIAL INFORMATION FROM [facility] CM CALLED [facility] NURSE, RAY [phone] AND INFORMED HER THIS INFORMATION NEEDED TO BE PROVIDED IT IS A BARRIER TO PTS DC CM ALSO REQUESTED PTS PCP INFORMATION RAY INDICATED SHE WOULD CALL THIS CM BACK ONCE SHE ARRIVED AT WORK
[2023-07-03] MEDS: Folic Acid 1 MG TABLET PO (08:56)
[2023-07-03] MEDS: Multivitamin TABLET 1 TAB PO (08:56)
[2023-07-03] MEDS: Ibuprofen 400 MG TABLET PO (08:56)
[2023-07-03] MEDS: Thiamine HCL 100 MG TABLET PO (08:56)
[2023-07-03] MEDS: Baclofen 10 MG TABLET PO ×2 (08:56→15:27)
[2023-07-03] MEDS: Aspirin 81 MG TAB.CHEW PO (08:56)
[2023-07-03] MEDS: Sertraline HCL 50 MG TABLET PO (08:56)
[2023-07-03 10:03] VITALS: BP 115/61; PULSE 54; O2SAT 97
--- NOTE | 2023-07-03 13:48 | HO.PM.IMPN ---
Subjective Subjective Date of Service: 07/03/23 Interval History: seen and examined this morning no overnight events, no new medical issues Review of Systems Right knee discomfort Patient has no other acute medical complaints Review of Systems: Yes all other systems are reviewed and are negative Constitutional Constitutional: Denies chills and Denies fever(s) Cardiovascular Cardiovascular: Denies chest pain Gastrointestinal Gastrointestinal: Denies abdominal pain Physical Exam Vital Signs: Vital Signs: Last Vital Signs Temp 97.3 F 07/03/23 08:11 Pulse 54 07/03/23 10:03 Resp 16 07/03/23 08:11 BP 115/61 07/03/23 10:03 Pulse Ox 97 07/03/23 10:03 O2 Del Method Room Air 07/03/23 08:11 O2 Flow Rate 98 05/17/23 20:00 FiO2 30 04/23/23 11:00 BMI result Body Mass Index 21.0 Const: General: cooperative, comfortable, no acute distress, alert and awake Nutritional Appearance: average body habitus Resp: Effort & Inspection: normal respiratory effort, able to speak in complete sentences, no respiratory distress and no use of accessory muscles Cardio: Rate: regular rate Heart sounds: S1 normal heart sound present and S2 normal heart sound present GI: Other: no guarding Inspection: No distended Palpation (GI): Soft to palpation and nontender Neuro: General: moves all extremities and CN's II-XI intact bilaterally Extrem: General: Yes no pedal edema Objective Data Active Medications Acetaminophen (Acetaminophen Oral Liquid 650 Mg/20.3 Ml Solution) 650 mg PO Q6H PRN PRN Reason: Fever Last Admin: 07/02/23 19:03 Dose: 650 mg Documented By: ANGEL Aspirin (Aspirin 81 Mg Tab.Chew) 81 mg PO DAILY [facility] Last Admin: 07/03/23 08:56 Dose: 81 mg Documented By: KANU Atorvastatin Calcium (Atorvastatin Calcium 40 Mg Tablet) 40 mg PO BEDTIME [facility] Last Admin: 07/02/23 19:27 Dose: 40 mg Documented By: ANGEL Baclofen (Baclofen 10 Mg Tablet) 10 mg PO TID [facility] Last Admin: 07/03/23 08:56 Dose: 10 mg Documented By: KANU Docusate Sodium (Docusate Sodium 100 Mg Capsule) 200 mg PO BEDTIME [facility] Last Admin: 07/02/23 19:27 Dose: 200 mg Documented By: ANGEL Enoxaparin Sodium (Enoxaparin Sodium 40 Mg/0.4 Ml Syringe) 40 mg SUBCUT Q24H [facility] Last Admin: 07/02/23 14:42 Dose: Not Given Documented By: KANU Non-Admin Reason: Patient Refused Folic Acid (Folic Acid 1 Mg Tablet) 1 mg PO DAILY [facility] Last Admin: 07/03/23 08:56 Dose: 1 mg Documented By: KANU Ibuprofen (Ibuprofen 400 Mg Tablet) 400 mg PO Q8H PRN PRN Reason: Pain, Moderate(Pain Scale 4-6) Last Admin: 07/03/23 08:56 Dose: 400 mg Documented By: KANU Magnesium Hydroxide (Milk Of Magnesia 30 Ml Oral.Susp) 30 ml PO DAILY PRN PRN Reason: Constipation Multivitamins/Vitamin C (Multivitamin Tablet) 1 tab PO DAILY [facility] Last Admin: 07/03/23 08:56 Dose: 1 tab Documented By: KANU Naloxone HCl (Naloxone Hcl 0.4 Mg/Ml Vial) 0.2 mg IVPUSH Q2M PRN PRN Reason: Excessive sedation or RR < 8 Nystatin (Nystatin Powder 15 Gm Bottle) 1 appl TOPICAL TID [facility]; Protocol Last Admin: 07/03/23 08:56 Dose: Not Given Documented By: KANU Non-Admin Reason: Patient Refused Olanzapine (Olanzapine 10 Mg Tablet) 10 mg PO BEDTIME [facility] Last Admin: 07/02/23 19:27 Dose: 10 mg Documented By: ANGEL Sertraline HCl (Sertraline Hcl 50 Mg Tablet) 50 mg PO DAILY [facility] Last Admin: 07/03/23 08:56 Dose: 50 mg Documented By: KANU Thiamine HCl (Thiamine Hcl 100 Mg Tablet) 100 mg PO DAILY [facility] Last Admin: 07/03/23 08:56 Dose: 100 mg Documented By: KANU Labs 05/07/23 06:02 06/10/23 11:55 Assessment and Plan (1) Schizophrenia: Status: Acute (2) Physical deconditioning: Status: Acute Plan 28-year-old man with underlying history of schizophrenia, alcohol use, marijuana use?admitted on 04/08/2023 after he was noted to be unresponsive by his girlfriend for undetermined amount of time. He was transported by EMS to emergency room where he was intubated fo acute hypoxic respiratory failure. Further work up revealed? aspiration and left pneumothorax.? Initial left mid axillary chest tube placed in emergency room with persistence of pneumothorax and questionable subdiaphragmatic placement.? Chest tube removed and replaced with left midclavicular in 3rd intercostal space with air evacuation and improvement in pneumothorax.? Patient also noted to have acute kidney injury and rhabdomyolysis and started on IV fluid hydration. He underwent right gluteal fasciotomy with significant improvement in his CPK and renal function.? However, remains persistently encephalopathic.? MRI on 04/10/2023 with bilateral cerebral anoxic related encephalopathy. ? Evaluated by neurology with prognosis consider to be guarded, but not catastrophic. Overall with slow neurologic improvement, With significant improvement on 04/23/2023. extubated 04/23/2023 and downgraded to the medical floor on 04/25. has since been awaiting placement, with ongoing improvement in mental status, improved speech, awareness, motor functions Anoxic brain injury secondary to aspiration pneumonia related to polysubstance overdose with anoxic encephalopathy continues to improve,?continue participation in PT/OT Acute rehab when available Baclofen as muscle relaxant, Motrin prn for pain Schizophrenia Sertraline 50mg/olanzapine 10mg HS Psych following as needed NSTEMI, resolved s/p heparin drip. Noted to have soft blood pressures and heart rate therefore Lopressor discontinued, continue aspirin, statin and outpatient workup with Cardiology. Acute renal failure Resolved. DVT prophylaxis - Lovenox Full Code Attending Dr. Treadwell TB assessment -test required for rehab placement. PPD placed 06/30/23 left forearm, final read 07/02/23 negative; cxr neg DISPO plan for STR Has [facility] guardian, pending SNF placement. requires continued hospitalization for safe disposition Time Spent With Patient Time: Total time managing care of this patient today ____ minutes. Quality Stroke Does the patient have a stroke diagnosis?: No VTE Prior VTE?: No VTE Risk Level:: Medical - moderate - high VTE Device Contraindication: N/A - Device Ordered VTE Drug Contraindication: N/A - Med Ordered
--- NOTE | 2023-07-03 15:44 | P.DS_ITS ---
DS: Providers Provider Date of Service: 07/03/23 Date of admission: 04/08/23 10:37 Date of discharge: 07/03/23 Primary care physician: Unknown Physician Consults: 04/08/23 15:43 Consult to General Surgery Routine Consulting Provider[place] [facility] Reason for consultation: Evaluate for compartment syndrome of the right gluteus with rising CPK Has provider been notified: No 04/11/23 09:51 Consult to Neurology Routine Consulting Provider: Hector Gallegos [facility] Reason for consultation: ?anoxic encephalopathy Has provider been notified: No 04/16/23 06:35 Consult to Wound Care Stat Consulting Provider: Marisol López Reason for consultation: Skin Integrity concerns Has provider been notified: Yes 04/30/23 15:25 Consult to Cardiology Routine Consulting Provider[place] [facility] Reason for consultation: nstemi while in ICU ; wma on echo Has provider been notified: No 05/04/23 16:02 Consult to Psychiatry Routine Consulting Provider: Psych Covering Reason for consultation: depression (med recs) 05/05/23 11:12 Consult to Neurology Routine Consulting Provider: Neurology Susana viera [facility] Reason for consultation: anoxic encephalopathy- ?brain injury program 05/12/23 15:03 Consult to Psychiatry Routine Consulting Provider: Psych [facility] Reason for consultation: Depression/schizophrenia Has provider been notified: Yes 05/15/23 09:13 Consult to Neurology Routine Consulting Provider: Neurology Susana viera [facility] Reason for consultation: anoxic brain injury with minimum function recovery Has provider been notified: No Attending physician on discharge: Pancho Treadwell Discharging clinician: Ellie Rangel DS: Diagnosis Discharge Diagnosis (1) Schizophrenia: Status: Acute (2) Physical deconditioning: Status: Acute (3) Anoxic encephalopathy: Status: Acute (4) Acute renal injury: Status: Acute (5) Polysubstance abuse: Status: Acute (6) Acute respiratory failure: Status: Acute DS: Summary Hospital Course Hospital Course: History and physical as per admitting provider. 28-year-old gentleman with underlying history of schizophrenia alcohol use, marijuana use? admitted on 04/08/2023 after he was noted to be unresponsive by his girlfriend for unclear amount of time with full min at the mouse.? Patient was transported by EMS to emergency room where he was intubated for hypoxia and respiratory distress.? On further evaluation patient with imaging finding of aspiration and left pneumothorax.? Initial left mid axillary chest tube placed in emergency room with persistence of pneumothorax and questionable subdiaphragmatic placement.? Chest tube removed and replaced with left midclavicular in 3rd intercostal space with air evacuation and improvement in pneumothorax.? Patient also noted to have acute kidney injury and rhabdomyolysis and started on IV fluid hydration.? HPI: 28-year-old man with underlying history of schizophrenia alcohol use, marijuana use?admitted on 04/08/2023 after he was noted to be unresponsive by his girlfriend for unclear amount of time. Patient was intubated for hypoxia and respiratory distress found to be secondary to aspiration pna and left pneumothorax. Initial left mid axillary chest tube placed in emergency room with persistence of pneumothorax and questionable subdiaphragmatic placement.? Chest tube removed and replaced with left midclavicular in 3rd intercostal space with air evacuation and improvement in pneumothorax.? Patient also noted to have acute kidney injury and rhabdomyolysis and started on IV fluid hydration. He underwent right gluteal fasciotomy with significant improvement in his CPK and renal function (likely secondary to laying on the couch unresponsive for an on known period of time).?extubated 04/23/23 remained persistently encephalopathic for at least a week.?MRI on 04/10/2023 showed bilateral cerebral anoxic related encephalopathy. ? Evaluated by neurology with prognosis consider to be guarded, but not catastrophic. Overall he had slow neurologic improvement with significant improvement daily after that. He now ambulates and follows commands with very mild delay. Total hospitalization days 86 Anoxic brain injury secondary to aspiration pneumonia likely related to polysubstance overdose, accidental. Has participated with physical therapy and occupational therapy, using baclofen as muscle relaxant with Motrin for pain. Overall good improvement in neurological status. Schizophrenia. Patient is Zyprexa initially had been stopped subsequently s everal weeks after admission restarted in now on 10 mg at bedtime with sertraline 50 mg. He was seen evaluated by psychiatric team and should continue as an outpatient. NSTEMI. During the patient's ICU stay early in the admission he was noted to have an NSTEMI with elevated troponins. He completed a heparin drip. Was started on aspirin, statin and beta-judy. However beta-judy was sub sequently stopped due to low blood pressures. ECHO showed preserved EF, basal inferior segment akinesis. Seen by cardiology who recommended outpatient workup with myocardial perfusion imaging to further guide treatment although likelihood of obstructive coronary artery disease is low. JANNY. Patient also had acute renal failure likely secondary to low-flow, hypotension during initial phase of anoxic brain injury. Subsequently resolved with IV fluids. Anticipate less then 30 day stay at SNF Time Spent with Patient Time attestation: Total time managing care of this patient today ____ minutes. Discharge coordination time: Greater than 30 minutes Quality: Safe Use of Opioids Does Pt have an Active Cancer Diagnosis on the Problem List?: No Quality: Stroke Does the patient have a stroke diagnosis?: No Physical Exam Vital Signs: Vital Signs: Last Vital Signs Temp 97.3 F 07/03/23 08:11 Pulse 54 07/03/23 10:03 Resp 16 07/03/23 08:11 BP 115/61 07/03/23 10:03 Pulse Ox 97 07/03/23 10:03 O2 Del Method Room Air 07/03/23 08:11 O2 Flow Rate 98 05/17/23 20:00 FiO2 30 04/23/23 11:00 BMI result Body Mass Index 21.0 Const: General: cooperative, comfortable, no acute distress, alert and awake Nutritional Appearance: average body habitus Resp: Effort & Inspection: normal respiratory effort, able to speak in complete sentences, no respiratory distress and no use of accessory muscles Cardio: Rate: regular rate Heart sounds: S1 normal heart sound present and S2 normal heart sound present GI: Inspection: No distended Palpation (GI): Soft to palpation Neuro: General: moves all extremities and CN's II-XI intact bilaterally Extrem: General: Yes no pedal edema Discharge Plan Discharge Anticipated Discharge Date/Time: 07/03/23 17:00 Patient Disposition: Xfer Inpatient Rehab Fac Discharge Diagnosis: Anoxic brain injury Aspiration pneumonia Anoxic encephalopathy Polysubstance overdose Schizophrenia NSTEMI JANNY Referrals: Umang Bobo MD [Physician] - 1 Month Discharge Medications: New atorvastatin 40 mg Tablet 40 mg PO BEDTIME Qty: 30 0RF olanzapine 10 mg Tablet 10 mg PO BEDTIME Qty: 30 0RF baclofen 10 mg Tablet 10 mg PO TID Qty: 12 0RF aspirin 81 mg Tablet,Chewable 81 mg PO DAILY Qty: 30 0RF sertraline 50 mg Tablet 50 mg PO DAILY Qty: 30 0RF Continued ketoconazole 2 % cream 1 appl topical DAILY Discontinued olanzapine 10 mg tablet 10 mg PO BEDTIME Discharge Orders: Discharge Order (Routine); Ordered 07/03/23 Ordered By: Ellie Rangel Diet: Advance to usual diet Activity on Discharge: As tolerated Stand Alone Forms: Patient Portal Discharge page Care Plan Goals: Continue physical and occupational therapy, plan for long-term housing Health Concerns: Anoxic brain injury Aspiration pneumonia Anoxic encephalopathy Polysubstance overdose Schizophrenia NSTEMI JANNY Plan of Treatment: Continue physical and occupational therapy Take all medications as prescribed Schedule an appointment with a primary care provider Call to schedule follow up appointment with cardiology Assessment: See discharge summary
== END 2023-07-03 18:00 | DRG 793 ==
LOC: HO.ED 09:27 → HO.EDOVER 10:44 → HO.ICU 11:16 → HO.IMC 04-25 13:29 → HO.S3 05-11 13:29
PROVIDERS: Clinical Nurse Specialist Psychiatric/Mental Health, Adult; Hospitalist; Internal Medicine; Nurse Practitioner Acute Care; Nurse Practitioner Family; Physician Assistant; Physician Assistant Medical; Student in an Organized Health Care Education/Training Program; Surgery; Admitting Provider Internal Medicine Pulmonary Disease; Emergency Provider Emergency Medicine Emergency Medical Services; PCP Internal Medicine; Visit Provider Physician Assistant Medical
PROC: 0KNN0ZZ Release Right Hip Muscle, Open Approach (ICD-10-PCS; principal; 2023-04-08 17:00)
DX: T40.601A Poisoning by unspecified narcotics, accidental (unintentional), initial encounter (principal); J96.01 Acute respiratory failure with hypoxia; J69.0 Pneumonitis due to inhalation of food and vomit; I21.4 Non-ST elevation (NSTEMI) myocardial infarction; M79.A21 Nontraumatic compartment syndrome of right lower extremity; G93.1 Anoxic brain damage, not elsewhere classified; N17.9 Acute kidney failure, unspecified; M62.82 Rhabdomyolysis; E83.39 Other disorders of phosphorus metabolism; J93.9 Pneumothorax, unspecified; R13.10 Dysphagia, unspecified; M79.671 Pain in right foot; D64.9 Anemia, unspecified; Z75.1 Person awaiting admission to adequate facility elsewhere; F10.10 Alcohol abuse, uncomplicated; F19.10 Other psychoactive substance abuse, uncomplicated; L89.152 Pressure ulcer of sacral region, stage 2; E83.42 Hypomagnesemia; F20.9 Schizophrenia, unspecified; F43.10 Post-traumatic stress disorder, unspecified; Z79.899 Other long term (current) drug therapy
CPT/HCPCS: 36410; 36415; 70450; 70551; 71045; 71260; 72125; 73600; 73620; 74177; 80048; 80053; 80076; 80143; 80179; 80307; 81001; 82040; 82140; 82550; 82565; 82607; 82746; 82803; 82947; 83605; 83735; 83880; 84100; 84484; 84550; 85007; 85014; 85018; 85025; 85027; 85610; 85730; 87040; 87086; 92507; 92526; 92610; 93005; 93306; 93971; 94002; 94003; 94640; 94799; 95816; 97110; 97112; 97116; 97140; 97163; 97167; 97530; 97535; 99285; C1758; J0295; J0692; J1205; J1265; J1643; J1650; J1940; J2250; J2370; J3010; J3370; J3475; P9047; Q9967

== ENCOUNTER → 2023-04-08 10:37 | Outpatient (BNV) | payer OTHER, SELFPAY | PROVIDERS: Admitting Provider Internal Medicine Pulmonary Disease; Emergency Provider Emergency Medicine Emergency Medical Services; Visit Provider Clinical Nurse Specialist Psychiatric/Mental Health, Adult | DX: F20.89 Other schizophrenia (principal); F19.10 Other psychoactive substance abuse, uncomplicated | CPT/HCPCS: 99222; 99232 ==

== ENCOUNTER → 2023-04-08 10:37 | Outpatient (BNV) | payer OTHER, SELFPAY | PROVIDERS: Admitting Provider Internal Medicine Pulmonary Disease; Emergency Provider Emergency Medicine Emergency Medical Services; Visit Provider Nurse Practitioner Acute Care | DX: F20.9 Schizophrenia, unspecified (principal); G93.1 Anoxic brain damage, not elsewhere classified; N17.9 Acute kidney failure, unspecified; F19.10 Other psychoactive substance abuse, uncomplicated; J96.00 Acute respiratory failure, unspecified whether with hypoxia or hypercapnia; R53.81 Other malaise | CPT/HCPCS: 99231; 99232; 99233; 99239; 99429; 99499 ==

== ENCOUNTER → 2023-08-18 13:48 | Outpatient (REF) | payer OTHER, SELFPAY ==
--- NOTE | 2023-08-18 13:51 | CA_ITS ---
Transthoracic Echocardiogram Patient (Last, First, Middle): Freedom Schwartz Richard Gender: Male Date of : 1995 Age: 28 Procedure Date: 08/18/2023 Procedure Type: Transthoracic Echocardiogram Location: OP Height: 182.88 cm Weight: 84.37 kg BSA: 2.07 m2 Heart Rate: 53 bpm BP: 125 / 80 mmHg Environmental Services Manager: NEVIN Referring MD: Phillip Monreal MD Symptoms: I21.9 - Acute myocardial infarction, unspecified Study Quality: Adequate/w Contrast ECG Rhythm: Bradycardia Conclusions: - The left ventricular systolic function is normal. The calculated ejection fraction is 56% by biplane method. - The basal inferior segment is akinetic. Findings Procedure Information Contrast agent, definity, is being given per protocol without apparent complications. Left Ventricle Normal left ventricular cavity size. There is normal left ventricular wall thickness. The left ventricular systolic function is normal. The calculated ejection fraction is 56% by biplane method. Wall Motion Rest Echo Findings The basal inferior segment is akinetic. Prior Study Comparison No significant change compared to prior study dated: 04/10/2023. Measurements 2D Linear Measurements IVSd: 0.93 0.6-0.9/0.6-1.0 cm LVIDd: 4.84 3.9-5.3/4.2-5.9 cm LVIDd Index: 2.34 2.4-3.2/2.2-3.1 cm/m2 LVIDs: 3.19 2.0-3.6 cm LVPWd: 0.96 0.7-1.1 cm LV Mass: 198.68 67-162/88-224 g LV Mass Index: 95.98 43-95/49-115 g/m2 LVOT Diam: 2.20 3.0+(-)1.3 cm 2D Systolic Function EF 4C: 48.30 >55% EF 2C: 61.30 >55% EF BiP: 56.00 >55% LVOT LVOT Pk Alex: 1.39 LVOT Mn Alex: 0.95 LVOT VTI: 0.31 LVOT Pk Grad: 8.00 LVOT Mn Grad: 4.00 LVOT Diam: 2.20 LVOT Area: 3.80 Updated in Other Vendor System with Status of Final Umang Bobo MD electronically signed on 08/19/2023 12:22:44 PM with status of Final
== END ==
LOC: HO.CARD 13:48
PROVIDERS: PCP Internal Medicine; Visit Provider Internal Medicine Cardiovascular Disease
DX: I21.9 Acute myocardial infarction, unspecified (principal)
CPT/HCPCS: 93308; Q9957

== ENCOUNTER → 2023-08-18 13:51 | Outpatient (BNV) | payer OTHER, SELFPAY | PROVIDERS: PCP Internal Medicine; Visit Provider Internal Medicine | DX: I21.9 Acute myocardial infarction, unspecified (principal) | CPT/HCPCS: 93308 ==

== ENCOUNTER → 2023-08-21 09:42 | Outpatient (REF) | payer OTHER, SELFPAY ==
--- NOTE | ~2023-08-21 | NM_ITS ---
Lexiscan Myocardial perfusion study Indication: Coronary artery disease, NSTEMI, assess for ischemia Technique: The patient was brought in for a Lexiscan perfusion study on 08/21/2023 and was injected 0.4 mg of Lexiscan intravenously. Within a minute of this injection 25 mCi of sestamibi was given intravenously. Images were obtained using the SPECT gamma camera interlaced with the gating device. Images were obtained in supine position. Resting perfusion study was performed on 08/26/2023. Patient was administered 25 mCi of sestamibi intravenously at rest. Images were then obtained in supine position. Images were processed with the software and compared side to side in short axis, horizontal long axis and vertical long axis views. Total DLP 90mGy-cm. Findings: Raw acquisition reviewed. The stress perfusion study showed no significant perfusion abnormality. Both uncorrected as well as CT attenuation corrected images were reviewed. The gated study shows normal LV systolic function with calculated LVEF of 65%. LV cavity is normal in size. The gated study shows normal wall thickening and contraction of segments. Resting study shows no significant perfusion of normality. Both uncorrected as well as CT attenuation corrected images were reviewed. Gating at rest reveals normal wall motion with ejection fraction at 55%. The findings are consistent with no clear reversible or fixed perfusion defects. NM/NM nancy perf SPECT rest & str Impression: 1. Myocardial perfusion imaging study shows probably normal myocardial perfusion. 2. Gated LVEF is 65% during stress and 55% during rest. 3. Transient ischemic dilatation not present. EKG component of the test reported separately.
== END ==
LOC: HO.CARD 09:42
PROVIDERS: PCP Internal Medicine; Referring Provider Internal Medicine; Visit Provider Internal Medicine Cardiovascular Disease
DX: I21.9 Acute myocardial infarction, unspecified (principal); J96.00 Acute respiratory failure, unspecified whether with hypoxia or hypercapnia
CPT/HCPCS: 78452; 93017; A9500; J0280; J2785

== ENCOUNTER → 2023-08-21 09:46 | Outpatient (BNV) | payer OTHER, SELFPAY | PROVIDERS: PCP Internal Medicine; Referring Provider Internal Medicine; Visit Provider Nurse Practitioner | DX: I21.9 Acute myocardial infarction, unspecified (principal) | CPT/HCPCS: 78452; 93016; 93018 ==

== ENCOUNTER 2023-09-15 13:56 | Outpatient (AMB) | payer OTHER, SELFPAY ==
--- NOTE | 2023-09-15 14:01 | MHC.OFFVIS ---
Intake Vital Signs 09/15/23 14:02 Height 5 ft 10 in Weight 187 lb 6.287 oz BMI 26.9 BP 120/70 Blood Pressure Location Lt brachial Position Sitting Pulse 84 Intake Visit Reasons: [facility] discharge follow up, after echo & stress Intake Note: [facility] dc follow-up after echo and stress Brokerage Manager Required: No Gas Cutting Machine Operator: Gas Cutting Machine Operator Present Accompanied by: Other Relationship Allergies Penicillins [PCN] Allergy (Unknown, Verified 12/12/21 23:33) UNKNOWN Medication List - Last Reconciled 09/15/23 by Phillip Monreal MD aspirin 81 mg PO DAILY olanzapine 10 mg PO BEDTIME sertraline 50 mg PO DAILY HPI HPI Comments History of Present Illness Details Freedom 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 Patient had recent myocardial perfusion imaging which showed no evidence of myocardial ischemia with preserved LV systolic function. Patient denies any recurrent chest pain syndrome. [facility] Medical History Myocardial infarction Anoxic encephalopathy Polysubstance abuse Pneumothorax Opiate overdose Compartment syndrome of buttock Rhabdomyolysis Pneumothorax, left Aspiration pneumonitis Acute renal injury Schizophrenia Chronic schizophrenia Schizoaffective disorder PTSD (post-traumatic stress disorder) Surgical History Hx of hand surgery Social History Household Members: Unknown / Unable to assess Household Members Other:: skilled nursing Housing: Unknown / Unable to assess Housing Other:: skilled nursing Do you presently have visiting nurse or other home services: No Unable to assess alcohol history related to: Unable to respond and Unknown Alcohol intake: current Alcohol intake frequency: does not drink Patient Tobacco Use Status: Tobacco use Unknown Tobacco use type: Cigar Cigarette Packs Per Day: 0.5 Cigarettes Per Day: 5 Years Smoked: 10 Second Hand Smoke Exposure: Yes Substance Use Type: Marijuana service: No Sexual orientation: Straight/Heterosexual Review of Systems Const Denies chills, Denies fatigue, Denies fever(s), Denies frequent falls, Denies weakness, Denies weight gain and Denies weight loss ENT Denies dizziness Card Denies chest pain, Denies leg edema, Denies lightheadedness, Denies palpitations, Denies dyspnea, Denies dyspnea on exertion, Denies orthopnea and Denies other (loss of consciousness) Resp Denies cough, Denies dyspnea and Denies dyspnea on exertion GI Denies hematochezia and Denies change in stool character Musc Denies abnormal gait, Denies muscle weakness, Denies numbness, Denies radiating pain into limb and Denies tingling Neuro Denies abnormal gait, Denies dizziness, Denies frequent falls, Denies numbness, Denies tingling and Denies weakness Endo Denies fatigue and Denies palpitations Physical Exam Vital Signs: Last Vital Signs Pulse 84 09/15/23 14:02 BP 120/70 09/15/23 14:02 BMI result Body Mass Index 26.9 Const General: cooperative, comfortable, no acute distress, alert and awake Nutritional Appearance: average body habitus Orientation/consciousness: patient oriented x3 Limitations: no limitations Neck Neck: Yes trachea midline, Yes supple and Yes no JVD Resp Effort & Inspection: normal respiratory effort Auscultation: clear to auscultation bilaterally Cardio Jugular venous distension: no JVD Palpation: normal PMI Rate: regular rate Rhythm: regular rhythm Heart sounds: S1 normal heart sound present, S2 normal heart sound present, no click, no gallops, no murmurs and no rubs Neuro General: patient oriented x3 and no focal motor deficits Assessment & Plan Assessment & Plan (1) Myocardial infarction: Code(s): I21.9 - Acute myocardial infarction, unspecified Plan: Secondary myocardial infarction secondary to hypoxic respiratory failure and possibly drug use. Subsequent myocardial perfusion imaging shows no evidence of coronary disease in no evidence of myocardial infarction which is surprising although likely given his age. There is no evidence of underlying coronary artery disease. This point time there is no need for aspirin therapy. As possible coronary vaso spasm during the event and with drug use. Would repeat limited echocardiogram to evaluate for LV function regional wall motion abnormality. Will sign of the case and will follow if need be Orders: Orders CA echo limited Today I21.9 - Acute myocardial infarction, unspecified Coding Level of Care Code Est Pt Level 3 (07210) Diagnoses Myocardial infarction I21.9
[2023-09-15 14:02] VITALS: BP 120/70; PULSE 84; BMI 26.9
== END 2023-09-15 14:16 | disposition home or self-care (01) ==
PROVIDERS: PCP Internal Medicine; Visit Provider Internal Medicine Cardiovascular Disease
DX: I21.9 Acute myocardial infarction, unspecified (principal)
CPT/HCPCS: 99213

== ENCOUNTER → 2023-09-15 13:56 | Outpatient (BNVA) | payer OTHER, SELFPAY | PROVIDERS: PCP Internal Medicine; Visit Provider Internal Medicine Cardiovascular Disease | DX: I21.9 Acute myocardial infarction, unspecified (principal) | CPT/HCPCS: 99212 ==

== ENCOUNTER → 2023-10-12 15:10 | Outpatient (REF) | payer OTHER, SELFPAY ==
--- NOTE | 2023-10-12 15:13 | CA_ITS ---
Transthoracic Echocardiogram Patient (Last, First, Middle): Freedom Schwartz Richard Gender: Male Date of : 1995 Age: 28 Procedure Date: 10/12/2023 Procedure Type: Transthoracic Echocardiogram Location: OP Height: 180.34 cm Weight: 86.18 kg BSA: 2.06 m2 Heart Rate: 68 bpm BP: 118 / 68 mmHg Internal Medicine Physician: UMER Referring MD: Phillip Monreal MD Sectional Belt Mold Assembler: Phillip Monreal MD Symptoms: I21.9 - Acute myocardial infarction, unspecified Study Quality: Adequate ECG Rhythm: Sinus Conclusions: - Normal LV ejection fraction with inferior wall motion abnormality Findings Procedure Information The quality of the study was technically difficult. The study quality is limited by lung artifact. Left Ventricle Normal left ventricular size, thickness, and systolic function. The visually estimated ejection fraction is between 60-65%. Spectral Doppler is indicative of a normal filling pattern. Wall Motion Rest Echo Findings The mid inferoseptal segment is hypokinetic. The basal inferior and basal inferoseptal segments are akinetic. All other scored wall segments showed normal motion. Prior Study Comparison No significant change compared to prior study dated: 08/18/2023. Measurements 2D Linear Measurements IVSd: 0.88 0.6-0.9/0.6-1.0 cm LVIDd: 5.04 3.9-5.3/4.2-5.9 cm LVIDd Index: 2.45 2.4-3.2/2.2-3.1 cm/m2 LVIDs: 3.43 2.0-3.6 cm LVPWd: 0.99 0.7-1.1 cm LV Mass: 209.69 67-162/88-224 g LV Mass Index: 101.79 43-95/49-115 g/m2 LVOT Diam: 2.30 3.0+(-)1.3 cm 2D Systolic Function EF 4C: 64.50 >55% EF 2C: 68.50 >55% EF BiP: 66.10 >55% Mitral Valve MV Pk E: 0.99 MV PK A: 0.81 MV Decel Time: 260.00 E/A: 1.20 E'Lateral: 15.40 E'Medial: 10.00 E/E' Med: 9.90 E/E' Lat: 6.40 PHT: 76.00 MVA PHT: 2.89 Decel Elk: 3.78 LVOT LVOT Pk Alex: 1.37 LVOT Mn Alex: 0.97 LVOT VTI: 0.29 LVOT Pk Grad: 8.00 LVOT Mn Grad: 4.00 LVOT Diam: 2.30 LVOT Area: 4.15 Diastolic Function MV Pk E: 0.99 MV Pk A: 0.81 E/A: 1.20 E'Medial: 10.00 E/E' Med: 9.90 E' Laterial: 15.40 E/E' Lat: 6.40 Tricuspid Valve RA Press: 3.00 Updated in Other Vendor System with Status of Final Phillip Monreal MD electronically signed on 10/12/2023 4:29:00 PM with status of Final
== END ==
LOC: HO.CARD 15:10
PROVIDERS: PCP Internal Medicine; Visit Provider Internal Medicine Cardiovascular Disease
DX: I21.9 Acute myocardial infarction, unspecified (principal)
CPT/HCPCS: 93308

== ENCOUNTER → 2023-10-12 15:13 | Outpatient (BNV) | payer OTHER, SELFPAY | PROVIDERS: PCP Internal Medicine; Visit Provider Internal Medicine Cardiovascular Disease | DX: I21.9 Acute myocardial infarction, unspecified (principal) | CPT/HCPCS: 93308 ==

== ENCOUNTER 2023-11-24 15:00 | Outpatient (RCR) | payer OTHER, SELFPAY ==
--- NOTE | 2023-08-11 11:03 | MHC.PT.EP ---
[facility] [place] [facility] [place] [facility] [place] Office [address] Pedro Santiago [address] [phone] F: [phone] F: [phone] F: [phone] F: [phone] Physical Therapy Plan of Care Date of Evaluation: 08/11/23 Date of Surgery: N/A Diagnosis: contracture of R knee; gait and mobility (RL) Assessment: pt is a 28 y/o male presenting to physical therapy w/ referring diagnosis of right knee contracture; gait and mobility. pt presents w/ potential neurological source of R knee contracture following extensive hospital stay since March 2023. Impairments include pain, decreased range of motion, decreased strength, impaired functional mobility, impaired postural awareness, and altered ambulation mechanics. pt is a fair candidate for skilled PT due to age, potential remediation of impairments, typical disease/condition progression and prognosis, comorbidities, and motivation. pt would benefit from skilled PT intervention to provide a tailored strengthening and stretching exercise program, functional training, gait training, postural re-training, neuromuscular re-education, modalities as needed for pain, equipment safety demonstration. Frequency and Duration: The patient will be seen 2x/wk for 4 wks Short Term Goals: pt will be I w/ HEP to promote self-management of condition. pt will improve R knee extension by 10 degrees to normalize gait pattern on even ground. Longterm Goals: pt will ambulate x2600' w/o AD and no gross LOB to promote improved community access. pt will participate in balance screening to assess fall risk. Treatment Plan: Modalities to reduce pain, spasms and effusion. Manual therapy to restore motion and function. Therapeutic exercise to improve strength and flexibility. Neuromuscular re-education for posture and balance. Therapeutic activities to return to functional activities of daily living. Electronically signed by: Myrna Pope PT, DPT Please sign and return to therapist. Thank you for your referral.
--- NOTE | 2023-11-27 11:18 | MHC.PT.DC ---
[facility] [place] Office [place] Office [place] Office [address] Pedro Santiago 140 [facility] [phone] F: [phone] F: [phone] F: [phone] F: [phone] Physical Therapy Discharge Report Diagnosis: contracture of R knee; gait and mobility (RL) Date of Surgery: N/A Date of Evaluation: 08/11/23 Date of Discharge: 11/27/23 Treatments to Date: 19 Cancellations to Date: 4 No Shows to Date: 1 Discharge Status: Improved Function Independent with HEP Discharge Summary: The patient overall has plateaued. He has approximately lacking 10 degrees of extension and 100 degrees of flexion actively. He is limited by his tone. He remains active with his home exercise program and basketball when the weather allows. His pain is much better managed. He has progressed to moderate balance challenges as a minimal fall risk at this time. The patient is discharged from this physical therapy plan of care to his home exercise program. Electronically signed by: Myran Pope PT, DPT Please sign and return to therapist. Thank you for your referral.
== END 2023-11-27 11:19 | disposition home or self-care (01) ==
LOC: HO.PT 15:00
PROVIDERS: Visit Provider Hospitalist
DX: M24.561 Contracture, right knee (principal); R26.9 Unspecified abnormalities of gait and mobility
CPT/HCPCS: 97110; 97112; 97140; 97162; 97530